=== PATIENT | male | born 1955 | race Caucasian/White ===

== ENCOUNTER → 2017-09-15 15:33 | Outpatient (CLI) | payer MEDICARE, MEDICAID, SELFPAY | PROVIDERS: Family Provider Internal Medicine; PCP Internal Medicine; Visit Provider Internal Medicine | DX: E11.621 Type 2 diabetes mellitus with foot ulcer (principal); L97.512 Non-pressure chronic ulcer of other part of right foot with fat layer exposed; M79.674 Pain in right toe(s); L08.9 Local infection of the skin and subcutaneous tissue, unspecified | CPT/HCPCS: 11042; 87070; 87077; 87186; 87205 ==

== ENCOUNTER → 2017-09-15 16:53 | Outpatient (REF) | payer MEDICARE, MEDICAID, SELFPAY | LOC: LAB 16:53 | PROVIDERS: Family Provider Internal Medicine; PCP Internal Medicine; Visit Provider Internal Medicine | DX: L08.9 Local infection of the skin and subcutaneous tissue, unspecified (principal) | CPT/HCPCS: 87070; 87075; 87077; 87186; 87205 ==

== ENCOUNTER → 2017-09-21 15:00 | Outpatient (REF) | payer MEDICARE, MEDICAID, SELFPAY ==
[2017-09-21 15:32] LABS: Iron 87 ug/dL (49-181)
== END ==
LOC: LAB 15:00
PROVIDERS: Family Provider Internal Medicine; PCP Internal Medicine; Visit Provider Internal Medicine
DX: R53.83 Other fatigue (principal); D63.1 Anemia in chronic kidney disease
CPT/HCPCS: 82728; 83540

== ENCOUNTER → 2017-09-22 13:35 | Outpatient (CLI) | payer MEDICARE, MEDICAID, SELFPAY | PROVIDERS: Family Provider Internal Medicine; PCP Internal Medicine; Visit Provider Internal Medicine | DX: E11.621 Type 2 diabetes mellitus with foot ulcer (principal); L97.512 Non-pressure chronic ulcer of other part of right foot with fat layer exposed | CPT/HCPCS: 11042; 87070; 87075; 87077; 87186; 87205 ==

== ENCOUNTER → 2017-09-23 06:40 | Outpatient (REF) | payer MEDICARE, MEDICAID, SELFPAY ==
[2017-09-23 08:51] LABS: BUN Creatinine Ratio 28.6 (6-22); Calcium 8.6 mg/dL (8.4-10.2); Estimated Glomerular Filt Rate > 60.0 mL/min (>60); Glucose 234 mg/dL (80-110); HEMOLYSIS < 15 (0-50); Potassium 4.1 mmol/L (3.4-5.1); Sodium 139 mmol/L (137-145)
== END ==
LOC: LAB 06:40
PROVIDERS: Family Provider Internal Medicine; PCP Internal Medicine; Visit Provider Internal Medicine Cardiovascular Disease
DX: I25.5 Ischemic cardiomyopathy (principal); I10 Essential (primary) hypertension
CPT/HCPCS: 36415; 80048

== ENCOUNTER → 2017-10-06 16:03 | Outpatient (CLI) | payer MEDICARE, MEDICAID, SELFPAY | PROVIDERS: Family Provider Internal Medicine; PCP Internal Medicine; Visit Provider Internal Medicine | DX: E11.621 Type 2 diabetes mellitus with foot ulcer (principal); L97.512 Non-pressure chronic ulcer of other part of right foot with fat layer exposed; E11.65 Type 2 diabetes mellitus with hyperglycemia; R53.83 Other fatigue | CPT/HCPCS: 11042 ==

== ENCOUNTER → 2017-10-11 14:15 | Outpatient (CLI) | payer MEDICARE, MEDICAID, SELFPAY ==
--- NOTE | 2017-10-11 | DI.MRI.S_ITS ---
PROCEDURE: MR KNEE RT WO CON INDICATIONS: Right knee pain post fall TECHNIQUE: Noncontrast sagittal PD fast spin echo and T2 fast spin echo with fat saturation, sagittal 3-D FLASH with fat saturation; coronal T1 spin echo and PD fast spin echo with fat saturation, and axial PD fast spin echo with fat saturation through the knee. COMPARISON: None. FINDINGS: Image quality: Suboptimal related to metallic susceptibility artifact from distal femoral orthopedic hardware. Bones and joint: Evaluation of the distal femur is suboptimal related to a long intramedullary nail secured in place by 2 distal screws. However, there is moderate marrow edema identified along the posterior aspect of the medial femoral condyle and in the periphery of the medial femoral condyle. There also is mild marrow edema evident involving the posterolateral margin of the lateral tibial plateau and potentially along the periphery of the posterior aspect of the medial tibial plateau. No displaced fractures or dislocations are evident. There is a small joint effusion with associated very small Hoover cyst. No large cartilaginous defects are appreciated involving the cartilage within all 3 compartments of the knee. Cruciate ligaments: The anterior and posterior cruciate ligaments are intact. Menisci: No displaced tears of the medial and lateral menisci are evident. The posterior root ligaments are intact. Medial structures: The medial collateral ligament is intact. There is mild edema about the medial collateral ligament. The semimembranosus tendon insertion is thickened and irregular with diffusely increased signal present. The imaged portions of the pes anserinus tendons are unremarkable. No significant fluid is contained within the pes anserinus bursa. Lateral structures: The popliteal tendon is intact, but may be edematous. The lateral collateral ligament proper (fibular collateral ligament) and the proximal tibiofibular ligaments are intact. Mild increased signal about the proximal tibiofibular ligaments is noted. The distal aspect of the biceps femoris tendon and the iliotibial band are intact. Anterior structures: The quadriceps and patellar tendons are intact. There is no significant edema in the infrapatellar fat pad. IMPRESSION: 1. Bone contusions involving the medial femoral condyle and posterolateral tibial plateau. No displaced fractures are evident. 2. The anterior cruciate ligament and medial meniscus appear intact. 3. Medial collateral ligament sprain. 4. Low-grade proximal tibiofibular ligament sprain. 5. Mild proximal popliteal tendinopathy. 6. Moderate distal semimembranosus tendinopathy and possible low-grade partial-thickness tearing. 7. Small joint effusion. Dictated by: Jose Russo M.D. on 10/11/2017 at 15:27 Approved by: Jose Russo M.D. on 10/11/2017 at 15:35
== END ==
PROVIDERS: Family Provider Internal Medicine; PCP Internal Medicine; Visit Provider Nurse Practitioner Family
DX: M25.561 Pain in right knee (principal); S80.11XA Contusion of right lower leg, initial encounter; S83.411A Sprain of medial collateral ligament of right knee, initial encounter; M25.461 Effusion, right knee
CPT/HCPCS: 73721

== ENCOUNTER → 2017-10-13 14:58 | Outpatient (REF) | payer MEDICARE, MEDICAID, SELFPAY | LOC: LAB 14:58 | PROVIDERS: Family Provider Internal Medicine; PCP Internal Medicine; Visit Provider Internal Medicine | DX: L08.9 Local infection of the skin and subcutaneous tissue, unspecified (principal) | CPT/HCPCS: 87070; 87075; 87077; 87147; 87186; 87205 ==

== ENCOUNTER → 2017-10-13 15:53 | Outpatient (CLI) | payer MEDICARE, MEDICAID, SELFPAY ==
--- NOTE | 2017-10-13 | OV.WND_ITS ---
Progress Note Details Patient Name: Ray Foster Patient Number: [id number] PatientPatientDate: 10/13/2017 Clinician: Fiona Brooks Clinician Cosigner: Eusebia Reed Physician / Distributing Clerk: Niall Bragg SUBJECTIVE Chief Complaint This information was obtained from the patient Diabetic ulcer to right 5th toe. Allergies [facility] This information was obtained from the patient 10/13/17. Seen by Dr. Bragg. The patient does not report pain nor significant drainage associated with chronic right fifth toe diabetic ulcer since his last visit. Also, his blood sugar today is 325 and has been intermittently very elevated the past few weeks. Of note, his ulcer and diabetes is complicated by his being wheelchair bound due to a significant stroke and near 100% reliance upon caregivers at his assisted living facility. 10/06/17. Seen by Dr. Bragg. The patient continues to report feeling very fatigued but does not report specific symptoms otherwise nor acute issues regarding his right 5th toe diabetic ulcer. Of note, his blood sugar is over 400 today and he feels there was a lot of ' sugar' in his meal last night. 09/22/17. Seen by Dr. Bragg. The patient does not report pain nor significant drainage associated with chronic right fifth toe diabetic ulcer since his last visit. 09/15/17. Seen by Dr. Bragg. The patient reports feeling generally unwell and very fatigued over the past 3-4 days but does not report any other specific acute symptoms at this time. He does say that he has noticed some stinging pain associated with the chronic right 5th toe diabetic ulcer as well. 09/08/17. Seen by Dr. Bragg. The patient does not report pain nor significant drainage associated with chronic right fifth toe diabetic ulcer since his last visit. 09/01/17. Seen by Dr. Bragg. The patient does not report pain nor significant drainage associated with chronic right fifth toe diabetic ulcer since his last visit. 08/25/17. Seen by Dr. Bragg. The patient does not report pain nor significant drainage associated with chronic right fifth toe diabetic ulcer since his last visit. 08/19/17. Seen by Dr. Bragg. The patient reports some mild discomfort associated with chronic right fifth toe diabetic ulcer that is not report significant drainage however. He had his angioplasty over 2 weeks ago to address the severe related PAD and does not report any complications following the procedure. 08/12/17. Seen by Dr. Bragg. The patient underwent angioplasty for his right leg PAD Wednesday he states that his rest pain has not resolved. He is not on Plavix and reports some pain associated with the right fifth toe diabetic ulcer but no smoking drainage or other acute changes. 08/03/17. Seen by Dr. Bragg. The patient was seen by his vascular surgeon at [facility] and he is scheduled for intervention for his severe right leg PAD this . He reports some persistent pain associated with her right fifth toe diabetic ulcer as well and his wound culture grew MSSA for which he is applying topical gentamicin. He does not report increased drainage from the site and of note his condition is complicated considerably by history of paraplegia and a CVA with resultant right-sided hemiparesis. 07/27/17. Seen by Dr. Bragg. The patient reports some intermittent pain associated with chronic right fifth toe diabetic ulcer since last visit. He has not yet arranged an appointment with vascular surgery at [facility] to review the right leg PAD although he was referred last week. 07/20/17. Seen by Dr. Bragg. The patient does not report significant drainage associated with the chronic right fifth toe diabetic ulcer since his last visit. Of note, a referral was sent in mid June to review the right leg PAD however according to the patient this has not been followed through on. Of note, the patient's condition is complicated significantly by a history of paraplegia as well as CVA and he resides in assisted living. 07/13/17. Seen by Vinayak Maguire PA-C. The patient reports stable drainage from his right 5th toe ulcer. 07/08/17. Seen by Vinayak Maguire PA-C. The patient reports no increase in drainage from his right 5th toe ulcer. 06/28/17. Seen by Vinayak Maguire PA-C. The patient reports that his dressings are being changed at the SNF as instructed now. He reports decreased drainage from all of his ulcers. 06/22/17. Seen by Vinayak Maguire PA-C. The patient reports that his dressing on his right 5th toe was not changed by the SNF since his last visit and appears much worse. He also reports that he is not using diabetic shoes. He notes several blood sugars recorded above 150 this week. . Seen by Dr. Bragg. The patient reports intermittent pain associated with the chronic right fifth fourth and second toe diabetic ulcers since his last visit. He was to start taking doxycycline however this was not available at his assisted living facility. Of note, his arterial Doppler from 08/2016 revealed a high grade stenosis of the mid-right SFA and occlusion of the distal right SFA. Also, the patient resides in assisted living do to his right hemiplegia the resulted from a stroke many years ago. 06/04/17. Seen by Vinayak Maguire PA-C. The patient reports a new ulcer has formed on his right 2nd toe. It has been present for at least 2 days by his report. 05/26/17. Seen by Vinayak Maguire PA-C. The patient reports no increase in drainage from his diabetic ulcers of the 4th and 5th toes and reports minimal drainage from his heel ulcer. 05/19/17. Seen by Dr. Bragg. The patient does not report significant pain nor increased drainage associated with the right fourth and fifth toe diabetic ulcers nor the right heel diabetic ulcer since last visit. 05/12/17. Seen by Dr. Bragg. The patient does not report significant drainage associated with the right heel, fifth toe, or fourth toe diabetic ulcers since his last visit. His wound culture from the heel grew two coag-negative staph species and he has been applying topical gentamicin as recommended. 05/05/17. Seen by Dr. Bragg. The patient is new to our clinic and presents with a right heel plus right fourth and fifth toe diabetic ulcers. His ulcers are complicated by a history of stroke and right hemiplegia, poorly controlled diabetes, and history of smoking. He reports some mild pain associated with the ulcers but no significant drainage and is not currently on antibiotics. He does continue to smoke however. He also has an arterial ultrasound from last August showing high grade stenosis of the right SFA with reconstitution at the level of the popliteal artery. Of notes, his last A1c in April was 9.4. Past Medical History This information was obtained from the patient Patient has a medical history of: Type 1 Diabetes Ischemic Cardiomyopathy Hypertension Coronary Artery Disease (CAD) Peripheral Vascular Disease Renal Failure (Stage 3, stable.) Stroke (x3 in 1998) Gastro Esoph. Reflux Disease (GERD) Complaints and Symptoms This information was obtained from the patient Patient complains of: General Notes: I have reviewed and concur with the Review of Systems and Past Family Social History documents completed by the clinician, I have reviewed and concur with the Wound Assessment document completed by the clinician Cardiovascular (Central/Peripheral): Lower extremity (leg) swelling Constitutional Symptoms (General Health): Fatigue Integumentary (Hair/Skin/Nails): Open Sore Musculoskeletal: Assistive Devices, Muscle Weakness Prior Wound History: Drainage, Erythema, Pain Patient denies complaints or symptoms related to: Cardiovascular (Central): Irregular heart beat Cardiovascular (Central/Peripheral): Lower extremity (leg) resting pain Constitutional Symptoms (General Health): Chills, Fever Ear/Nose/Mouth/Throat: Hearing Loss / Aid Gastrointestinal (GI): Stomach/abdominal pain Hematologic/Lymphatic: Bleeding / Clotting Disorders, Bleeding Tendency Neurological: Loss of Protective Sensation Prior Wound History: Bleeding Psychiatric: Memory Loss Respiratory: Shortness of Breath OBJECTIVE Constitutional Vital signs reviewed and noted. Well developed. Alert. Clean appearing.. Height/ Length: 66 in (167.64 cm), Weight: 140.9 lbs (64.05 kgs), BMI: 22.7, Temperature: 98.2 ?F ( 36.78 ?C), Pulse: 85 bpm, Respiratory Rate: 16 breaths/min, Blood Pressure: 107/70 mmHg, Capillary Blood Glucose: 325 mg/dl, Pulse Oximetry: 99 %. Vital Signs Notes: Glucose per patient. Ears, Nose, Mouth, and Throat: No clinically significant hearing loss on informal examination. Respiratory: No respiratory distress. Even respirations and without use of accessory muscles.. Cardiovascular: 1+ right lower extremity edema. Musculoskeletal: Right lower leg flacid paralysis. Integumentary (Hair, Skin) Mild periwound erythema with warmth. Refer to appropriate clinician wound documentation for this visit; right 5th toe ulcer extends to subcut with base partially covered with pink granulation, remainder fibrin and slough. Wound #3 Right Fifth Toe is a chronic Coates Grade 3 Diabetic Ulcer and has received a status of Not Healed. Subsequent wound encounter measurements are 0.1cm length x 0.1cm width x 0.1cm depth, with an area of 0.01 sq cm and a volume of 0.001 cubic cm. No tunneling has been noted. No sinus tract has been noted. No undermining has been noted. There is a small amount of serous drainage noted which has no odor. The patient reports a wound pain of level 6/10. The wound margin is unable to assess. Wound bed has Yes epithelialization, No eschar, Yes slough, No granulation. The periwound skin moisture is normal. The periwound skin exhibited: Edema, Erythema. The periwound skin did not exhibit: Brawny Induration, Excoriation, Induration, Callus, Crepitus, Fluctuance, Friable, Rash, Atrophie Pamela, Cyanosis, Ecchymosis, Hemosiderosis , Pallor, Rubor. The temperature of the periwound skin is Warm. Periwound skin presents with s/s of infection. Confirmation Description and Treatment Plan is: Signs and Symptoms Present. Local Pulse is Doppler. Neurological: Cranial nerves grossly intact with symmetric function normal by informal observation.. ASSESSMENT Active Problems ICD-10 (Encounter Diagnosis) E11.621 - Type 2 diabetes mellitus with foot ulcer (Encounter Diagnosis) L97.512 - Non-pressure chronic ulcer of other part of right foot with fat layer exposed (Encounter Diagnosis) E11.65 - Type 2 diabetes mellitus with hyperglycemia (Encounter Diagnosis) L08.9 - Local infection of the skin and subcutaneous tissue, unspecified (Encounter Diagnosis) I69.80 - Unspecified sequelae of other cerebrovascular disease PROCEDURES Wound #3 Wound #3 (Diabetic Ulcer) is located on the right fifth toe. A skin/ subcutaneous tissue level surgical debridement with a total area debrided of 0.04 sq cm was performed by Fiona Brooks LPN/ABDON. Subcutaneous was removed along with devitalized tissue: slough and maceration. The following instrument(s) were used: curette. Pain control was achieved using EMLA lidocaine/prilocaine 2.5%/2.5%. A time out was conducted prior to the start of the procedure. A minimal amount of bleeding was controlled with n/a. The procedure was tolerated well with a pain level of 0 throughout and a pain level of 0 following the procedure. Post Debridement Measurements: 0.2cm length x 0.2cm width x 0.2cm depth; with an area of 0.04 sq cm and a volume of 0.008 cubic cm; Additional Information Muscle fascia or bone removed and sent to pathology?: No PLAN Wound Orders: Wound #3 Right Fifth Toe Anesthetic Topical Xylocaine to wound bed. - Lidocaine used in clinic. Cleanser Cleanse Wound: - Normal saline and gauze. Please wash wound with saline and gauze during each dressing change to wipe off any dried exudate adhered to wound bed. May scrub lightly with gauze. May Shower. - Please protect wounds from shower water, please use plastic bag and tape or cast protector. Topical Treatments Antibiotic/Antimicrobial Ointment/Cream. - Iodosorb (sent with patient). Dressings Cover and secure with: - Telfa (non-adherent) pad and hypafix tape. Change Dressing: - Daily. Additional Orders: Follow-Up Appointments Return Appointment: - - One week. Other information: If you develop fever, chills, increased pain, drainage, redness or swelling please call our office. If after hours, respond to the ER. Should you experience any significant changes in your wound(s) or have any questions regarding your home care instructions please contact the wound center @ [phone]. If after hours, contact your primary care physician or go to the hospital emergency room. Scribing Attestation I attest, as the nurse, that I scribed these orders for the physician. Laboratory: Bacteria identified in Wound by Culture - #3- Right 5th toe. General Notes: Will call with culture results if any oral antibiotics are required. I've reviewed the clinician's documentation and agree with the evaluation and plan as written. In addition, the patient's ulcer demonstrates evidence of non-viable devitalized tissue which will continue to benefit from sharp debridement to help promote granulation and expedite healing. Also, the right 5th toe ulcer appears infected today so a culture was taken and the patient was started on topical gentamicin. I'll also copy his PCP on my note due to the frequent significantly elevated blood sugars which are likely contributing to recurrent infection and the refractory nature of the diabetic foot ulcer. Electronic Signature(s) Signed By: Date: Niall Bragg MD 10/13/2017 15:30:00 Entered By: Niall Bragg on 10/13/2017 15:12:14
== END ==
PROVIDERS: Family Provider Internal Medicine; PCP Internal Medicine; Visit Provider Internal Medicine
DX: E10.621 Type 1 diabetes mellitus with foot ulcer (principal); L97.512 Non-pressure chronic ulcer of other part of right foot with fat layer exposed; E11.65 Type 2 diabetes mellitus with hyperglycemia; L08.9 Local infection of the skin and subcutaneous tissue, unspecified; I69.80 Unspecified sequelae of other cerebrovascular disease
CPT/HCPCS: 11042

== ENCOUNTER → 2017-10-14 06:58 | Outpatient (REF) | payer MEDICARE, MEDICAID, SELFPAY ==
[2017-10-14 07:28] LABS: Add Manual Diff / Slide Review NO; Basophils Percent Auto 0.7 % (0-2); Eosinophils Percent Auto 3.5 % (2-4); Hematocrit 33.8 % (41-53); Hemoglobin 11.7 g/dL (13.5-17.5); Lymphocytes Percent Auto 39.3 % (25-40); Mean Corpuscular HGB Conc 34.6 % (30-36); Mean Corpuscular Volume 83.9 fL (80-100); Monocytes Percent Auto 10.3 % (3-14); Neutrophils Absolute Auto 3100 /uL (3000-5900); Neutrophils Percent Auto 46.2 % (50-75); Platelet Count 285 X10^3/uL (150-400); Red Blood Cell Count 4.03 X10^6/uL (4.5-5.9); Red Cell Distribution Width 14.2 % (11.6-14.8); White Blood Cell Count 6.8 X10^3/uL (4.5-11.0)
[2017-10-14 07:37] LABS: Alanine Aminotransferase 40 IU/L (21-72); Albumin 3.4 g/dL (3.5-5.0); Albumin Globulin Ratio 1.3 (1.0-2.8); Alkaline Phosphatase 106 U/L (38-126); Aspartate Aminotransferase 18 IU/L (17-59); BUN Creatinine Ratio 31.7 (6-22); Bilirubin Total 0.4 mg/dL (0.2-1.3); Blood Urea Nitrogen 19 mg/dL (9-20); Calcium 8.7 mg/dL (8.4-10.2); Carbon Dioxide 33 mmol/L (22-32); Chloride 101 mmol/L (98-107); Estimated Glomerular Filt Rate > 60.0 mL/min (>60); Globulin 2.6 g/dL (1.7-4.1); Glucose 91 mg/dL (80-110); HEMOLYSIS < 15 (0-50); Sodium 141 mmol/L (137-145)
[2017-10-14 07:44] LABS: Hemoglobin A1C% w Est Avg Glu 9.1 % (4.0-6.0)
[2017-10-14 07:47] LABS: B Type Natriuretic Peptide 44.3 (<100)
[2017-10-14 08:07] LABS: Thyroid Stimulating Hormone 2.58 uIU/mL (0.47-4.68)
== END ==
LOC: LAB 06:58
PROVIDERS: Family Provider Internal Medicine; PCP Internal Medicine; Visit Provider Nurse Practitioner Family
DX: E11.9 Type 2 diabetes mellitus without complications (principal); I63.9 Cerebral infarction, unspecified
CPT/HCPCS: 36415; 80053; 83036; 83880; 84443; 85025

== ENCOUNTER → 2017-10-19 12:37 | Outpatient (CLI) | payer MEDICARE, MEDICAID, SELFPAY ==
--- NOTE | 2017-10-19 | DI.ECHO.S_ITS ---
[place] [facility]---------+ [facility] +---------+ : : [address] : [address] [address] : : : : [id number] : : : : Phone: [phone]+ Echocardiogram Report + + :Name: NEYDA MARCELO Study Date: 10/19/2017 Height: 66 in : :[facility] Exam Location: IS Weight: 139 lb : : Gender: Male BSA: 1.7 m2 : :: 1955 Age: 62 yrs BP: 110/58 mmHg: :Reason For Study: ISCHEMIC CM : : Performed By: Joe Mendez : :Referring: POOL PALMER : + + Interpretation Summary The left ventricle is normal in size. The ejection fraction is estimated to be 50-55%. Compared to the prior exam, the left ventricular function is improved. The right ventricle is normal in size and function. No significant valvular pathology seen. Procedure: A two-dimensional transthoracic echocardiogram with color flow and Doppler was performed. The study quality was technically good. Comparison is made with the echocardiogram of 08/13/16. The patient was in normal sinus rhythm during the exam. Left Ventricle: The left ventricle is normal in size. There is normal left ventricular wall thickness. Trabeculae near apex are visualized. No thrombus is observed. The ejection fraction is estimated to be 50-55%. Compared to the prior exam, the left ventricular function is improved. There is basal inferior wall hypokinesis. There is mid inferior wall hypokinesis. Compared to the prior exam, the inferior wall motion abnormality is improved. Assessment of diastolic parameters indicates a relaxation abnormality of the left ventricle, consistent with normal filling pressures. Right Ventricle: The right ventricle is normal in size and function. Atria: Both atria are normal in size. Both atria have remained unchanged in size since the prior echo exam. The interatrial septum is intact with no evidence for an atrial septal defect. Mitral Valve: The mitral valve leaflets are slightly calcified. There is trace mitral regurgitation. Aortic Valve: The aortic valve is trileaflet. The aortic valve opens well. The aortic valve is slightly calcified. There is no aortic valve stenosis. No aortic regurgitation is present. Tricuspid Valve: The tricuspid valve is normal in structure and function. No tricuspid regurgitation. Pulmonary artery pressures cannot be estimated because of the lack of a measurable TR jet velocity. Pulmonic Valve: The pulmonic valve is normal in structure and function. There is trace pulmonic regurgitation. Great Vessels: The aortic root is normal size. The dimensions of the ascending aorta are normal. The pulmonary artery is normal size. The IVC is of normal diameter and collapses greater than 50% with a sniff. This suggests a low right atrial pressure of 3 mm Hg. Pericardium/ Pleura There is no pericardial effusion. There is no pleural effusion. MMode/2D Measurements & Calculations LVIDd: 4.6 cm Ao root diam: 2.9 cm LVIDs: 3.4 cm Aortic Jxn: 2.3 cm FS: 24.3 % asc Aorta Diam: 3.2 cm EPSS: 1.2 cm IVSd: 0.98 cm LVPWd: 0.80 cm LV palma. diameter/BSA (cm/m^2): 2.7 LV sys. diameter/BSA (cm/m^2): 2.0 LA dimension: 3.5 cm RA long axis: 3.0 cm LA A2 area: 16.7 cm2 RA area: 9.2 cm2 LA A4 area: 13.1 cm2 RA vol: 23.6 ml LA length (vol): 4.2 cm RA : 13.8 ml/m2 LA vol: 44.1 ml IVC diam: 1.0 cm LA vol index: 25.8 ml/m2 Doppler Measurements & Calculations Ao V2 max: 115.1 cm/sec MV E max reinaldo: 55.7 cm/sec Ao V2 mean: 81.5 cm/sec MV A max reinaldo: 72.6 cm/sec Ao max P.3 mmHg MV E/A: 0.77 Ao mean P.9 mmHg Med Peak E' Reinaldo: 3.2 cm/sec Ao V2 VTI: 20.3 cm E/E' med: 17.4 Lat Peak E' Reinaldo: 5.5 cm/sec E/E' lat: 10.2 E/e' average: 13.8 MV dec time: 0.27 sec PA V2 max: 73.7 cm/sec Pulm A Revs Reinaldo: 24.6 cm/sec PA V2 mean: 56.1 cm/sec PA mean P.4 mmHg PA pr(Accel): 36.6 mmHg PA Accel Time: 0.09 sec Reading Physician:SANDRA
== END ==
PROVIDERS: Family Provider Internal Medicine; PCP Internal Medicine; Visit Provider Internal Medicine Cardiovascular Disease
DX: I25.5 Ischemic cardiomyopathy (principal)
CPT/HCPCS: 93306

== ENCOUNTER → 2017-10-20 13:28 | Outpatient (CLI) | payer MEDICARE, MEDICAID, SELFPAY ==
--- NOTE | 2017-10-20 | OV.WND_ITS ---
Progress Note Details Patient Name: Ray Foster Patient Number: [id number] PatientPatientDate: 10/20/2017 Clinician: Eusebia Reed Clinician Cosigner: Gayle Delcid Physician / Lining Vamper: Daljit Maguire SUBJECTIVE Chief Complaint This information was obtained from the patient Diabetic ulcer to right 5th toe. Allergies NKDA [facility] This information was obtained from the patient 10/20/17. Seen by Vinayak Maguire PA-C. The patient reports stable drainage from his right 5th toe diabetic ulcer. 10/13/17. Seen by Dr. Bragg. The patient does not report pain nor significant drainage associated with chronic right fifth toe diabetic ulcer since his last visit. Also, his blood sugar today is 325 and has been intermittently very elevated the past few weeks. Of note, his ulcer and diabetes is complicated by his being wheelchair bound due to a significant stroke and near 100% reliance upon caregivers at his assisted living facility. 10/06/17. Seen by Dr. Bragg. The patient continues to report feeling very fatigued but does not report specific symptoms otherwise nor acute issues regarding his right 5th toe diabetic ulcer. Of note, his blood sugar is over 400 today and he feels there was a lot of ' sugar' in his meal last night. 09/22/17. Seen by Dr. Bragg. The patient does not report pain nor significant drainage associated with chronic right fifth toe diabetic ulcer since his last visit. 09/15/17. Seen by Dr. Bragg. The patient reports feeling generally unwell and very fatigued over the past 3-4 days but does not report any other specific acute symptoms at this time. He does say that he has noticed some stinging pain associated with the chronic right 5th toe diabetic ulcer as well. 09/08/17. Seen by Dr. Bragg. The patient does not report pain nor significant drainage associated with chronic right fifth toe diabetic ulcer since his last visit. 09/01/17. Seen by Dr. Bragg. The patient does not report pain nor significant drainage associated with chronic right fifth toe diabetic ulcer since his last visit. 08/25/17. Seen by Dr. Bragg. The patient does not report pain nor significant drainage associated with chronic right fifth toe diabetic ulcer since his last visit. 08/19/17. Seen by Dr. Bragg. The patient reports some mild discomfort associated with chronic right fifth toe diabetic ulcer that is not report significant drainage however. He had his angioplasty over 2 weeks ago to address the severe related PAD and does not report any complications following the procedure. 08/12/17. Seen by Dr. Bragg. The patient underwent angioplasty for his right leg PAD Wednesday he states that his rest pain has not resolved. He is not on Plavix and reports some pain associated with the right fifth toe diabetic ulcer but no smoking drainage or other acute changes. 08/03/17. Seen by Dr. Bragg. The patient was seen by his vascular surgeon at [facility] and he is scheduled for intervention for his severe right leg PAD this . He reports some persistent pain associated with her right fifth toe diabetic ulcer as well and his wound culture grew MSSA for which he is applying topical gentamicin. He does not report increased drainage from the site and of note his condition is complicated considerably by history of paraplegia and a CVA with resultant right-sided hemiparesis. 07/27/17. Seen by Dr. Bragg. The patient reports some intermittent pain associated with chronic right fifth toe diabetic ulcer since last visit. He has not yet arranged an appointment with vascular surgery at [facility] to review the right leg PAD although he was referred last week. 07/20/17. Seen by Dr. Bragg. The patient does not report significant drainage associated with the chronic right fifth toe diabetic ulcer since his last visit. Of note, a referral was sent in mid June to review the right leg PAD however according to the patient this has not been followed through on. Of note, the patient's condition is complicated significantly by a history of paraplegia as well as CVA and he resides in assisted living. 07/13/17. Seen by Vinayak Maguire PA-C. The patient reports stable drainage from his right 5th toe ulcer. 07/08/17. Seen by Vinayak Maguire PA-C. The patient reports no increase in drainage from his right 5th toe ulcer. 06/28/17. Seen by Vinayak Maguire PA-C. The patient reports that his dressings are being changed at the SNF as instructed now. He reports decreased drainage from all of his ulcers. 06/22/17. Seen by Vinayak Maguire PA-C. The patient reports that his dressing on his right 5th toe was not changed by the SNF since his last visit and appears much worse. He also reports that he is not using diabetic shoes. He notes several blood sugars recorded above 150 this week. . Seen by Dr. Bragg. The patient reports intermittent pain associated with the chronic right fifth fourth and second toe diabetic ulcers since his last visit. He was to start taking doxycycline however this was not available at his assisted living facility. Of note, his arterial Doppler from 08/2016 revealed a high grade stenosis of the mid-right SFA and occlusion of the distal right SFA. Also, the patient resides in assisted living do to his right hemiplegia the resulted from a stroke many years ago. 06/04/17. Seen by Vinayak Maguire PA-C. The patient reports a new ulcer has formed on his right 2nd toe. It has been present for at least 2 days by his report. 05/26/17. Seen by Vinayak Maguire PA-C. The patient reports no increase in drainage from his diabetic ulcers of the 4th and 5th toes and reports minimal drainage from his heel ulcer. 05/19/17. Seen by Dr. Bragg. The patient does not report significant pain nor increased drainage associated with the right fourth and fifth toe diabetic ulcers nor the right heel diabetic ulcer since last visit. 05/12/17. Seen by Dr. Bragg. The patient does not report significant drainage associated with the right heel, fifth toe, or fourth toe diabetic ulcers since his last visit. His wound culture from the heel grew two coag-negative staph species and he has been applying topical gentamicin as recommended. 05/05/17. Seen by Dr. Bragg. The patient is new to our clinic and presents with a right heel plus right fourth and fifth toe diabetic ulcers. His ulcers are complicated by a history of stroke and right hemiplegia, poorly controlled diabetes, and history of smoking. He reports some mild pain associated with the ulcers but no significant drainage and is not currently on antibiotics. He does continue to smoke however. He also has an arterial ultrasound from last August showing high grade stenosis of the right SFA with reconstitution at the level of the popliteal artery. Of notes, his last A1c in April was 9.4. Family History This information was obtained from the patient Cancer - Mother, Lung Disease - Father Social History This information was obtained from the patient Current every day smoker - Age 15 to present, Alcohol Use - None, Caffeine Use - 3 per day, Children - 2 boys, live in [place], Lives in - Assisted Living- [place], Marital Status - , Occupation - Disabled- retired from [employer] Past Medical History This information was obtained from the patient Patient has a medical history of: Type 1 Diabetes Ischemic Cardiomyopathy Hypertension Coronary Artery Disease (CAD) Peripheral Vascular Disease Renal Failure (Stage 3, stable.) Stroke (x3 in 1998) Gastro Esoph. Reflux Disease (GERD) Complaints and Symptoms This information was obtained from the patient Patient complains of: General Notes: I have reviewed and concur with the Review of Systems and Past Family Social History documents completed by the clinician, I have reviewed and concur with the Wound Assessment document completed by the clinician Cardiovascular (Central/Peripheral): Lower extremity (leg) swelling Constitutional Symptoms (General Health): Fatigue Integumentary (Hair/Skin/Nails): Open Sore Musculoskeletal: Assistive Devices, Muscle Weakness Prior Wound History: Drainage, Erythema, Pain Patient denies complaints or symptoms related to: Cardiovascular (Central): Irregular heart beat Cardiovascular (Central/Peripheral): Lower extremity (leg) resting pain Constitutional Symptoms (General Health): Chills, Fever Ear/Nose/Mouth/Throat: Hearing Loss / Aid Gastrointestinal (GI): Stomach/abdominal pain Hematologic/Lymphatic: Bleeding / Clotting Disorders, Bleeding Tendency Neurological: Loss of Protective Sensation Prior Wound History: Bleeding Psychiatric: Memory Loss Respiratory: Shortness of Breath OBJECTIVE Constitutional Vital signs reviewed and noted. Well developed, lucid, and in no acute distress. . Height/Length: 66 in (167.64 cm), Weight: 140.9 lbs (64.05 kgs), BMI: 22.7, Temperature: 98.7 ?F (37.06 ?C), Pulse: 84 bpm, Respiratory Rate: 16 breaths/min, Blood Pressure: 94/55 mmHg, Capillary Blood Glucose: 119 mg/dl, Pulse Oximetry: 100 %. Vital Signs Notes: Glucose per patient. Eyes: Conjunctiva clear and without icterus. Pupils are equal and round; EOM's intact. Ears, Nose, Mouth, and Throat: Grossly intact. Respiratory: No respiratory distress. Even respirations and without use of accessory muscles.. Integumentary (Hair, Skin) Refer to appropriate clinician wound documentation for this visit; ulcer extends to subcutaneous fat layer. . Wound #3 Right Fifth Toe is a chronic Coates Grade 3 Diabetic Ulcer and has received a status of Not Healed. Subsequent wound encounter measurements are 0.1cm length x 0.1cm width x 0.1cm depth, with an area of 0.01 sq cm and a volume of 0.001 cubic cm. No tunneling has been noted. No sinus tract has been noted. No undermining has been noted. There is a small amount of serous drainage noted which has no odor. The patient reports a wound pain of level 6/10. The wound margin is unable to assess. Wound bed has Yes epithelialization, No eschar, Yes slough, No granulation. The periwound skin moisture is normal. The periwound skin exhibited: Edema, Erythema. The periwound skin did not exhibit: Brawny Induration, Excoriation, Induration, Callus, Crepitus, Fluctuance, Friable, Rash, Atrophie Pmaela, Cyanosis, Ecchymosis, Hemosiderosis , Pallor, Rubor. The temperature of the periwound skin is Warm. Periwound skin does not exhibit signs or symptoms of infection. Local Pulse is Doppler. Psychiatric: Judgement and insight: Normal affect with normal thought pattern. Alert and oriented 3/3. Memory grossly intact.. Normal affect. Mood appropriate.. ASSESSMENT Active Problems ICD-10 (Encounter Diagnosis) E11.621 - Type 2 diabetes mellitus with foot ulcer (Encounter Diagnosis) L97.512 - Non-pressure chronic ulcer of other part of right foot with fat layer exposed (Encounter Diagnosis) I69.80 - Unspecified sequelae of other cerebrovascular disease PROCEDURES Wound #3 Wound #3 (Diabetic Ulcer) is located on the right fifth toe. A skin/ subcutaneous tissue level surgical debridement with a total area debrided of 0.04 sq cm was performed by Daljit Maguire PA. Subcutaneous was removed along with devitalized tissue: slough. The following instrument(s) were used: curette. Pain control was achieved using 4% Lido. A time out was conducted prior to the start of the procedure. A minimal amount of bleeding was controlled with pressure. The procedure was tolerated well with a pain level of 0 throughout and a pain level of 1 following the procedure. Post Debridement Measurements: 0.2cm length x 0.2cm width x 0.2cm depth; with an area of 0.04 sq cm and a volume of 0.008 cubic cm; PLAN Wound Orders: Wound #3 Right Fifth Toe Anesthetic Topical Xylocaine to wound bed. - Lidocaine used in clinic. Cleanser Cleanse Wound: - Normal saline and gauze. Please wash wound with saline and gauze during each dressing change to wipe off any dried exudate adhered to wound bed. May scrub lightly with gauze. May Shower. - Please protect wounds from shower water, please use plastic bag and tape or cast protector. Topical Treatments Antibiotic/Antimicrobial Ointment/Cream. - Iodosorb (sent with patient). Dressings Cover and secure with: - Telfa (non-adherent) pad and hypafix tape. Change Dressing: - Daily. Additional Orders: Follow-Up Appointments Return Appointment: - - One week. Other information: If you develop fever, chills, increased pain, drainage, redness or swelling please call our office. If after hours, respond to the ER. Should you experience any significant changes in your wound(s) or have any questions regarding your home care instructions please contact the wound center @ [phone]. If after hours, contact your primary care physician or go to the hospital emergency room. Scribing Attestation I attest, as the nurse, that I scribed these orders for the physician. I've reviewed the clinician's documentation and agree with the evaluation and plan as written. In addition the patient's ulcer demonstrates evidence of non-viable devitalized tissue which benefits from sharp debridement. Electronic Signature(s) Signed By: Date: Vinayak Maguire 10/24/2017 16:56:38 Entered By: Vinayak Maguire on 10/24/2017 16:45:40
== END ==
PROVIDERS: Family Provider Internal Medicine; PCP Internal Medicine; Visit Provider Internal Medicine
DX: E11.621 Type 2 diabetes mellitus with foot ulcer (principal); L97.512 Non-pressure chronic ulcer of other part of right foot with fat layer exposed; I69.80 Unspecified sequelae of other cerebrovascular disease
CPT/HCPCS: 11042

== ENCOUNTER → 2017-10-27 13:02 | Outpatient (CLI) | payer MEDICARE, MEDICAID, SELFPAY ==
--- NOTE | 2017-10-27 | OV.WND_ITS ---
Progress Note Details Patient Name: Ray Foster Patient Number: [id number] PatientPatientDate: 10/27/2017 Clinician: Shari De Clinician Cosigner: Eusebia Reed Physician / Clamshell Engineer: Niall Bragg SUBJECTIVE Chief Complaint This information was obtained from the patient Diabetic ulcer to right 5th toe. Allergies [facility] This information was obtained from the patient 10/27/17. Seen by Dr. Bragg. The nurse reports increased redness and swelling of the right 5th toe and the patient feels the associated diabetic ulcer has increased in size over the past week. His blood sugars are again elevated today at 342 and of note he states he's still smoking about 10 cigarettes per day despite having PAD that's required intervention recently. 10/20/17. Seen by Vinayak Maguire PA-C. The patient reports stable drainage from his right 5th toe diabetic ulcer. 10/13/17. Seen by Dr. Bragg. The patient does not report pain nor significant drainage associated with chronic right fifth toe diabetic ulcer since his last visit. Also, his blood sugar today is 325 and has been intermittently very elevated the past few weeks. Of note, his ulcer and diabetes is complicated by his being wheelchair bound due to a significant stroke and near 100% reliance upon caregivers at his assisted living facility. 10/06/17. Seen by Dr. Bragg. The patient continues to report feeling very fatigued but does not report specific symptoms otherwise nor acute issues regarding his right 5th toe diabetic ulcer. Of note, his blood sugar is over 400 today and he feels there was a lot of ' sugar' in his meal last night. 09/22/17. Seen by Dr. Bragg. The patient does not report pain nor significant drainage associated with chronic right fifth toe diabetic ulcer since his last visit. 09/15/17. Seen by Dr. Bragg. The patient reports feeling generally unwell and very fatigued over the past 3-4 days but does not report any other specific acute symptoms at this time. He does say that he has noticed some stinging pain associated with the chronic right 5th toe diabetic ulcer as well. 09/08/17. Seen by Dr. Bragg. The patient does not report pain nor significant drainage associated with chronic right fifth toe diabetic ulcer since his last visit. 09/01/17. Seen by Dr. Bragg. The patient does not report pain nor significant drainage associated with chronic right fifth toe diabetic ulcer since his last visit. 08/25/17. Seen by Dr. Bragg. The patient does not report pain nor significant drainage associated with chronic right fifth toe diabetic ulcer since his last visit. 08/19/17. Seen by Dr. Bragg. The patient reports some mild discomfort associated with chronic right fifth toe diabetic ulcer that is not report significant drainage however. He had his angioplasty over 2 weeks ago to address the severe related PAD and does not report any complications following the procedure. 08/12/17. Seen by Dr. Bragg. The patient underwent angioplasty for his right leg PAD Wednesday he states that his rest pain has not resolved. He is not on Plavix and reports some pain associated with the right fifth toe diabetic ulcer but no smoking drainage or other acute changes. 08/03/17. Seen by Dr. Bragg. The patient was seen by his vascular surgeon at [facility] and he is scheduled for intervention for his severe right leg PAD this . He reports some persistent pain associated with her right fifth toe diabetic ulcer as well and his wound culture grew MSSA for which he is applying topical gentamicin. He does not report increased drainage from the site and of note his condition is complicated considerably by history of paraplegia and a CVA with resultant right-sided hemiparesis. 07/27/17. Seen by Dr. Bragg. The patient reports some intermittent pain associated with chronic right fifth toe diabetic ulcer since last visit. He has not yet arranged an appointment with vascular surgery at [facility] to review the right leg PAD although he was referred last week. 07/20/17. Seen by Dr. Bragg. The patient does not report significant drainage associated with the chronic right fifth toe diabetic ulcer since his last visit. Of note, a referral was sent in mid June to review the right leg PAD however according to the patient this has not been followed through on. Of note, the patient's condition is complicated significantly by a history of paraplegia as well as CVA and he resides in assisted living. 07/13/17. Seen by Vinayak Maguire PA-C. The patient reports stable drainage from his right 5th toe ulcer. 07/08/17. Seen by Vinayak Maguire PA-C. The patient reports no increase in drainage from his right 5th toe ulcer. 06/28/17. Seen by Vinayak Maguire PA-C. The patient reports that his dressings are being changed at the SNF as instructed now. He reports decreased drainage from all of his ulcers. 06/22/17. Seen by Vinayak Maguire PA-C. The patient reports that his dressing on his right 5th toe was not changed by the SNF since his last visit and appears much worse. He also reports that he is not using diabetic shoes. He notes several blood sugars recorded above 150 this week. . Seen by Dr. Bragg. The patient reports intermittent pain associated with the chronic right fifth fourth and second toe diabetic ulcers since his last visit. He was to start taking doxycycline however this was not available at his assisted living facility. Of note, his arterial Doppler from 08/2016 revealed a high grade stenosis of the mid-right SFA and occlusion of the distal right SFA. Also, the patient resides in assisted living do to his right hemiplegia the resulted from a stroke many years ago. 06/04/17. Seen by Vinayak Maguire PA-C. The patient reports a new ulcer has formed on his right 2nd toe. It has been present for at least 2 days by his report. 05/26/17. Seen by Vinayak Maguire PA-C. The patient reports no increase in drainage from his diabetic ulcers of the 4th and 5th toes and reports minimal drainage from his heel ulcer. 05/19/17. Seen by Dr. Bragg. The patient does not report significant pain nor increased drainage associated with the right fourth and fifth toe diabetic ulcers nor the right heel diabetic ulcer since last visit. 05/12/17. Seen by Dr. Bragg. The patient does not report significant drainage associated with the right heel, fifth toe, or fourth toe diabetic ulcers since his last visit. His wound culture from the heel grew two coag-negative staph species and he has been applying topical gentamicin as recommended. 05/05/17. Seen by Dr. Bragg. The patient is new to our clinic and presents with a right heel plus right fourth and fifth toe diabetic ulcers. His ulcers are complicated by a history of stroke and right hemiplegia, poorly controlled diabetes, and history of smoking. He reports some mild pain associated with the ulcers but no significant drainage and is not currently on antibiotics. He does continue to smoke however. He also has an arterial ultrasound from last August showing high grade stenosis of the right SFA with reconstitution at the level of the popliteal artery. Of notes, his last A1c in April was 9.4. Past Medical History This information was obtained from the patient Patient has a medical history of: Type 1 Diabetes Ischemic Cardiomyopathy Hypertension Coronary Artery Disease (CAD) Peripheral Vascular Disease Renal Failure (Stage 3, stable.) Stroke (x3 in 1998) Gastro Esoph. Reflux Disease (GERD) Complaints and Symptoms This information was obtained from the patient Patient complains of: General Notes: I have reviewed and concur with the Review of Systems and Past Family Social History documents completed by the clinician, I have reviewed and concur with the Wound Assessment document completed by the clinician Cardiovascular (Central/Peripheral): Lower extremity (leg) swelling Constitutional Symptoms (General Health): Fatigue Integumentary (Hair/Skin/Nails): Open Sore Musculoskeletal: Assistive Devices, Muscle Weakness Prior Wound History: Drainage, Erythema, Pain Patient denies complaints or symptoms related to: Cardiovascular (Central): Irregular heart beat Cardiovascular (Central/Peripheral): Lower extremity (leg) resting pain Constitutional Symptoms (General Health): Chills, Fever Ear/Nose/Mouth/Throat: Hearing Loss / Aid Gastrointestinal (GI): Stomach/abdominal pain Hematologic/Lymphatic: Bleeding / Clotting Disorders, Bleeding Tendency Neurological: Loss of Protective Sensation Prior Wound History: Bleeding Psychiatric: Memory Loss Respiratory: Shortness of Breath OBJECTIVE Constitutional Vital signs reviewed and noted. Well developed. Alert. Clean appearing.. Height/ Length: 66 in (167.64 cm), Weight: 140.9 lbs (64.05 kgs), BMI: 22.7, Temperature: 98.8 ?F ( 37.11 ?C), Pulse: 97 bpm, Respiratory Rate: 17 breaths/min, Blood Pressure: 116/77 mmHg, Capillary Blood Glucose: 342 mg/dl, Pulse Oximetry: 100 %. Vital Signs Notes: Glucose per patient Ears, Nose, Mouth, and Throat: No clinically significant hearing loss on informal examination. Respiratory: No respiratory distress. Even respirations and without use of accessory muscles.. Cardiovascular: 1+ dorsalis pedis and posterior tibial on the right. 1+ right lower extremity edema. Musculoskeletal: Right lower leg flacid paralysis. Integumentary (Hair, Skin) Mild periwound erythema without warmth. Refer to appropriate clinician wound documentation for this visit; right 5th toe ulcer extends to subcut with base partially covered with pink granulation, remainder fibrin and slough; larger and deeper than on previous review. Wound #3 Right Fifth Toe is a chronic [place] Grade 3 Diabetic Ulcer and has received a status of Not Healed. Subsequent wound encounter measurements are 0.3cm length x 0.3cm width x 0.3cm depth, with an area of 0.09 sq cm and a volume of 0.027 cubic cm. No tunneling has been noted. No sinus tract has been noted. No undermining has been noted. There was no drainage noted. The patient reports a wound pain of level 3/10. The wound margin is unable to assess. Wound bed has Yes epithelialization, No eschar, No slough, Yes bright red, pink, firm granulation. The periwound skin moisture is normal. The periwound skin exhibited: Edema, Erythema. The periwound skin did not exhibit: Brawny Induration, Excoriation, Induration, Callus, Crepitus, Fluctuance, Friable, Rash, Atrophie Pamela, Cyanosis, Ecchymosis, Hemosiderosis , Pallor, Rubor. The temperature of the periwound skin is Warm. Periwound skin does not exhibit signs or symptoms of infection. Local Pulse is Doppler. General Notes: Covered in dried drainage ASSESSMENT Active Problems ICD-10 (Encounter Diagnosis) E11.621 - Type 2 diabetes mellitus with foot ulcer (Encounter Diagnosis) L97.512 - Non-pressure chronic ulcer of other part of right foot with fat layer exposed (Encounter Diagnosis) L08.9 - Local infection of the skin and subcutaneous tissue, unspecified (Encounter Diagnosis) I70.238 - Atherosclerosis of [place] arteries of right leg with ulceration of other part of lower right leg (Encounter Diagnosis) Z72.0 - Tobacco use PROCEDURES Wound #3 Wound #3 (Diabetic Ulcer) is located on the right fifth toe. A skin/ subcutaneous tissue level surgical debridement with a total area debrided of 0.09 sq cm was performed by Niall Bragg MD. Subcutaneous was removed along with devitalized tissue: slough. The following instrument(s) were used: curette. Pain control was achieved using 4% Lido. A time out was conducted prior to the start of the procedure. A minimal amount of bleeding was controlled with n/a. The procedure was tolerated well with a pain level of 0 throughout and a pain level of 0 following the procedure. Post Debridement Measurements: 0.3cm length x 0.3cm width x 0.4cm depth; with an area of 0.09 sq cm and a volume of 0.036 cubic cm; Additional Information Muscle fascia or bone removed and sent to pathology?: No PLAN Wound Orders: Wound #3 Right Fifth Toe Anesthetic Topical Xylocaine to wound bed. - Lidocaine used in clinic. Cleanser Cleanse Wound: - Normal saline and gauze. Please wash wound with saline and gauze during each dressing change to wipe off any dried exudate adhered to wound bed. May scrub lightly with gauze. May Shower. - Please protect wounds from shower water, please use plastic bag and tape or cast protector. Topical Treatments Antibiotic/Antimicrobial Ointment/Cream. - Gentamicin ointment to wound base. Dressings Cover and secure with: - [place] corn pad around wound off load and cover with foam and hypafix tape. Change Dressing: - Daily. Off-Loading Keep weight off: Additional Orders: Follow-Up Appointments Return Appointment: - - One week. Other information: If you develop fever, chills, increased pain, drainage, redness or swelling please call our office. If after hours, respond to the ER. Should you experience any significant changes in your wound(s) or have any questions regarding your home care instructions please contact the wound center @ [phone]. If after hours, contact your primary care physician or go to the hospital emergency room. Scribing Attestation I attest, as the nurse, that I scribed these orders for the physician. Laboratory: Bacteria identified in Wound by Culture - Right 5th toe #3 General Notes: We will call you if there is any need of antibiotics. I've reviewed the clinician's documentation and agree with the evaluation and plan as written. In addition, the patient's ulcer demonstrates evidence of non-viable devitalized tissue which will continue to benefit from sharp debridement to help promote granulation and expedite healing. Also, I've taken a wound culture and started treating an infection of the right 5th toe ulcer with topical gentamicin. I've also counseled him regarding his tobacco use in the context of diabetes, his right lower leg PAD, and the deleterious effect smoking has on wound healing. Electronic Signature(s) Signed By: Date: Niall Bragg MD 10/28/2017 09:59:55 Entered By: Niall Bragg on 10/28/2017 09:02:17
== END ==
PROVIDERS: Family Provider Internal Medicine; PCP Internal Medicine; Visit Provider Internal Medicine
DX: E11.621 Type 2 diabetes mellitus with foot ulcer (principal); L97.512 Non-pressure chronic ulcer of other part of right foot with fat layer exposed; L08.9 Local infection of the skin and subcutaneous tissue, unspecified; I70.238 Atherosclerosis of native arteries of right leg with ulceration of other part of lower leg; Z72.0 Tobacco use
CPT/HCPCS: 11042; 87070; 87075; 87205

== ENCOUNTER → 2017-11-10 13:38 | Outpatient (CLI) | payer MEDICARE, MEDICAID, SELFPAY ==
--- NOTE | 2017-11-10 | OV.WND_ITS ---
Progress Note Details Patient Name: Ray Foster Patient Number: [id number] PatientPatientDate: 11/10/2017 Clinician: Agata Ordaz Clinician Cosigner: Fiona Brooks Physician / Building Components Designer: Niall Bragg SUBJECTIVE Chief Complaint This information was obtained from the patient Diabetic ulcer to right 5th toe. Allergies [facility] This information was obtained from the patient 11/10/17. Seen by Dr. Bragg. The patient does not report pain nor significant drainage associated with chronic right fifth toe diabetic ulcer since his last visit. 10/27/17. Seen by Dr. Bragg. The nurse reports increased redness and swelling of the right 5th toe and the patient feels the associated diabetic ulcer has increased in size over the past week. His blood sugars are again elevated today at 342 and of note he states he's still smoking about 10 cigarettes per day despite having PAD that's required intervention recently. 10/20/17. Seen by Vinayak Maguire PA-C. The patient reports stable drainage from his right 5th toe diabetic ulcer. 10/13/17. Seen by Dr. Bragg. The patient does not report pain nor significant drainage associated with chronic right fifth toe diabetic ulcer since his last visit. Also, his blood sugar today is 325 and has been intermittently very elevated the past few weeks. Of note, his ulcer and diabetes is complicated by his being wheelchair bound due to a significant stroke and near 100% reliance upon caregivers at his assisted living facility. 10/06/17. Seen by Dr. Bragg. The patient continues to report feeling very fatigued but does not report specific symptoms otherwise nor acute issues regarding his right 5th toe diabetic ulcer. Of note, his blood sugar is over 400 today and he feels there was a lot of ' sugar' in his meal last night. 09/22/17. Seen by Dr. Bragg. The patient does not report pain nor significant drainage associated with chronic right fifth toe diabetic ulcer since his last visit. 09/15/17. Seen by Dr. Bragg. The patient reports feeling generally unwell and very fatigued over the past 3-4 days but does not report any other specific acute symptoms at this time. He does say that he has noticed some stinging pain associated with the chronic right 5th toe diabetic ulcer as well. 09/08/17. Seen by Dr. Bragg. The patient does not report pain nor significant drainage associated with chronic right fifth toe diabetic ulcer since his last visit. 09/01/17. Seen by Dr. Bragg. The patient does not report pain nor significant drainage associated with chronic right fifth toe diabetic ulcer since his last visit. 08/25/17. Seen by Dr. Bragg. The patient does not report pain nor significant drainage associated with chronic right fifth toe diabetic ulcer since his last visit. 08/19/17. Seen by Dr. Bragg. The patient reports some mild discomfort associated with chronic right fifth toe diabetic ulcer that is not report significant drainage however. He had his angioplasty over 2 weeks ago to address the severe related PAD and does not report any complications following the procedure. 08/12/17. Seen by Dr. Bragg. The patient underwent angioplasty for his right leg PAD Wednesday he states that his rest pain has not resolved. He is not on Plavix and reports some pain associated with the right fifth toe diabetic ulcer but no smoking drainage or other acute changes. 08/03/17. Seen by Dr. Bragg. The patient was seen by his vascular surgeon at [facility] and he is scheduled for intervention for his severe right leg PAD this . He reports some persistent pain associated with her right fifth toe diabetic ulcer as well and his wound culture grew MSSA for which he is applying topical gentamicin. He does not report increased drainage from the site and of note his condition is complicated considerably by history of paraplegia and a CVA with resultant right-sided hemiparesis. 07/27/17. Seen by Dr. Bragg. The patient reports some intermittent pain associated with chronic right fifth toe diabetic ulcer since last visit. He has not yet arranged an appointment with vascular surgery at [facility] to review the right leg PAD although he was referred last week. 07/20/17. Seen by Dr. Bragg. The patient does not report significant drainage associated with the chronic right fifth toe diabetic ulcer since his last visit. Of note, a referral was sent in mid June to review the right leg PAD however according to the patient this has not been followed through on. Of note, the patient's condition is complicated significantly by a history of paraplegia as well as CVA and he resides in assisted living. 07/13/17. Seen by Vinayak Maguire PA-C. The patient reports stable drainage from his right 5th toe ulcer. 07/08/17. Seen by Vinayak Maguire PA-C. The patient reports no increase in drainage from his right 5th toe ulcer. 06/28/17. Seen by Vinayak Maguire PA-C. The patient reports that his dressings are being changed at the SNF as instructed now. He reports decreased drainage from all of his ulcers. 06/22/17. Seen by Vinayak Maguire PA-C. The patient reports that his dressing on his right 5th toe was not changed by the SNF since his last visit and appears much worse. He also reports that he is not using diabetic shoes. He notes several blood sugars recorded above 150 this week. . Seen by Dr. Bragg. The patient reports intermittent pain associated with the chronic right fifth fourth and second toe diabetic ulcers since his last visit. He was to start taking doxycycline however this was not available at his assisted living facility. Of note, his arterial Doppler from 08/2016 revealed a high grade stenosis of the mid-right SFA and occlusion of the distal right SFA. Also, the patient resides in assisted living do to his right hemiplegia the resulted from a stroke many years ago. 06/04/17. Seen by Vinayak Maguire PA-C. The patient reports a new ulcer has formed on his right 2nd toe. It has been present for at least 2 days by his report. 05/26/17. Seen by Vinayak Maguire PA-C. The patient reports no increase in drainage from his diabetic ulcers of the 4th and 5th toes and reports minimal drainage from his heel ulcer. 05/19/17. Seen by Dr. Bragg. The patient does not report significant pain nor increased drainage associated with the right fourth and fifth toe diabetic ulcers nor the right heel diabetic ulcer since last visit. 05/12/17. Seen by Dr. Bragg. The patient does not report significant drainage associated with the right heel, fifth toe, or fourth toe diabetic ulcers since his last visit. His wound culture from the heel grew two coag-negative staph species and he has been applying topical gentamicin as recommended. 05/05/17. Seen by Dr. Bragg. The patient is new to our clinic and presents with a right heel plus right fourth and fifth toe diabetic ulcers. His ulcers are complicated by a history of stroke and right hemiplegia, poorly controlled diabetes, and history of smoking. He reports some mild pain associated with the ulcers but no significant drainage and is not currently on antibiotics. He does continue to smoke however. He also has an arterial ultrasound from last August showing high grade stenosis of the right SFA with reconstitution at the level of the popliteal artery. Of notes, his last A1c in April was 9.4. Past Medical History This information was obtained from the patient Patient has a medical history of: Type 1 Diabetes Ischemic Cardiomyopathy Hypertension Coronary Artery Disease (CAD) Peripheral Vascular Disease Renal Failure (Stage 3, stable.) Stroke (x3 in 1998) Gastro Esoph. Reflux Disease (GERD) Complaints and Symptoms This information was obtained from the patient Patient complains of: General Notes: I have reviewed and concur with the Review of Systems and Past Family Social History documents completed by the clinician, I have reviewed and concur with the Wound Assessment document completed by the clinician Cardiovascular (Central/Peripheral): Lower extremity (leg) swelling Constitutional Symptoms (General Health): Fatigue Integumentary (Hair/Skin/Nails): Open Sore Musculoskeletal: Assistive Devices, Muscle Weakness Prior Wound History: Drainage, Erythema, Pain Patient denies complaints or symptoms related to: Cardiovascular (Central): Irregular heart beat Cardiovascular (Central/Peripheral): Lower extremity (leg) resting pain Constitutional Symptoms (General Health): Chills, Fever Ear/Nose/Mouth/Throat: Hearing Loss / Aid Gastrointestinal (GI): Stomach/abdominal pain Hematologic/Lymphatic: Bleeding / Clotting Disorders, Bleeding Tendency Neurological: Loss of Protective Sensation Prior Wound History: Bleeding Psychiatric: Memory Loss Respiratory: Shortness of Breath OBJECTIVE Constitutional Vital signs reviewed and noted. Well developed. Alert. Clean appearing.. Height/ Length: 66 in (167.64 cm), Weight: 140.9 lbs (64.05 kgs), BMI: 22.7, Temperature: 98.7 ?F ( 37.06 ?C), Pulse: 88 bpm, Respiratory Rate: 18 breaths/min, Capillary Blood Glucose: 122 mg /dl, Pulse Oximetry: 98 %. Ears, Nose, Mouth, and Throat: No clinically significant hearing loss on informal examination. Musculoskeletal: Right lower leg flacid paralysis. Integumentary (Hair, Skin) Mild periwound erythema without warmth. Refer to appropriate clinician wound documentation for this visit. Wound #3 Right Fifth Toe is a chronic Coates Grade 3 Diabetic Ulcer and has received a status of Not Healed. Subsequent wound encounter measurements are 0.2cm length x 0.4cm width x 0.2cm depth, with an area of 0.08 sq cm and a volume of 0.016 cubic cm. No tunneling has been noted. No sinus tract has been noted. No undermining has been noted. There is a scant amount of serous drainage noted which has no odor. The patient reports a wound pain of level 3/10. The wound margin is unable to assess. Wound bed has Yes epithelialization, No eschar, Yes slough, No granulation. The periwound skin moisture is normal. The periwound skin exhibited: Edema, Erythema. The periwound skin did not exhibit: Brawny Induration, Excoriation, Induration, Callus, Crepitus, Fluctuance, Friable, Rash, Atrophie Pamela, Cyanosis, Ecchymosis, Hemosiderosis , Pallor, Rubor. The temperature of the periwound skin is Warm. Periwound skin does not exhibit signs or symptoms of infection. Local Pulse is Doppler. Neurological: Cranial nerves grossly intact with symmetric function normal by informal observation.. ASSESSMENT Active Problems ICD-10 (Encounter Diagnosis) E11.621 - Type 2 diabetes mellitus with foot ulcer (Encounter Diagnosis) L97.512 - Non-pressure chronic ulcer of other part of right foot with fat layer exposed PLAN Wound Orders: Wound #3 Right Fifth Toe Anesthetic Topical Xylocaine to wound bed. - Lidocaine used in clinic. Cleanser Cleanse Wound: - Normal saline and gauze. Please wash wound with saline and gauze during each dressing change to wipe off any dried exudate adhered to wound bed. May scrub lightly with gauze. May Shower. - Please protect wounds from shower water, please use plastic bag and tape or cast protector. Dressings Cover and secure with: - [place] corn pad around wound off load and cover with foam and hypafix tape. Change Dressing: - Every two days. May leave felt surround on if not visibly soiled Off-Loading Keep weight off: Additional Orders: Follow-Up Appointments Return Appointment: - - One week. Other information: If you develop fever, chills, increased pain, drainage, redness or swelling please call our office. If after hours, respond to the ER. Should you experience any significant changes in your wound(s) or have any questions regarding your home care instructions please contact the wound center @ [phone]. If after hours, contact your primary care physician or go to the hospital emergency room. Scribing Attestation I attest, as the nurse, that I scribed these orders for the physician. I've reviewed the clinician's documentation and agree with the evaluation and plan as written. Electronic Signature(s) Signed By: Date: Niall Bragg MD 11/10/2017 16:09:26 Entered By: Niall Bragg on 11/10/2017 15:03:19
== END ==
PROVIDERS: Family Provider Internal Medicine; PCP Internal Medicine; Visit Provider Internal Medicine
DX: E11.621 Type 2 diabetes mellitus with foot ulcer (principal); L97.511 Non-pressure chronic ulcer of other part of right foot limited to breakdown of skin
CPT/HCPCS: 99212

== ENCOUNTER → 2017-11-17 13:41 | Outpatient (CLI) | payer MEDICARE, MEDICAID, SELFPAY ==
--- NOTE | 2017-11-17 | OV.WND_ITS ---
Progress Note Details Patient Name: Ray Foster Patient Number: [id number] PatientPatientDate: 11/17/2017 Clinician: Agata Ordaz Clinician Cosigner: Eusebia Reed Physician / Continuous Improvement Analyst: Niall Bragg SUBJECTIVE Chief Complaint This information was obtained from the patient Diabetic ulcer to right 5th toe. Allergies [facility] This information was obtained from the patient 11/17/17. Seen by Dr. Bragg. The patient reports some pain again associated with the chronic right 5th toe diabetic ulcer but does not report increased drainage from the site. His blood sugars are better controlled with most below 150 over the past week. Of note, the ulcer is complicated as well by his right leg PAD for which he underwent PCI this year as well as paralysis of the leg following a traumatic injury and remote stroke. 11/10/17. Seen by Dr. Bragg. The patient does not report pain nor significant drainage associated with chronic right fifth toe diabetic ulcer since his last visit. 10/27/17. Seen by Dr. Bragg. The nurse reports increased redness and swelling of the right 5th toe and the patient feels the associated diabetic ulcer has increased in size over the past week. His blood sugars are again elevated today at 342 and of note he states he's still smoking about 10 cigarettes per day despite having PAD that's required intervention recently. 10/20/17. Seen by Vinayak Maguire PA-C. The patient reports stable drainage from his right 5th toe diabetic ulcer. 10/13/17. Seen by Dr. Bragg. The patient does not report pain nor significant drainage associated with chronic right fifth toe diabetic ulcer since his last visit. Also, his blood sugar today is 325 and has been intermittently very elevated the past few weeks. Of note, his ulcer and diabetes is complicated by his being wheelchair bound due to a significant stroke and near 100% reliance upon caregivers at his assisted living facility. 10/06/17. Seen by Dr. Bragg. The patient continues to report feeling very fatigued but does not report specific symptoms otherwise nor acute issues regarding his right 5th toe diabetic ulcer. Of note, his blood sugar is over 400 today and he feels there was a lot of ' sugar' in his meal last night. 09/22/17. Seen by Dr. Bragg. The patient does not report pain nor significant drainage associated with chronic right fifth toe diabetic ulcer since his last visit. 09/15/17. Seen by Dr. Bragg. The patient reports feeling generally unwell and very fatigued over the past 3-4 days but does not report any other specific acute symptoms at this time. He does say that he has noticed some stinging pain associated with the chronic right 5th toe diabetic ulcer as well. 09/08/17. Seen by Dr. Bragg. The patient does not report pain nor significant drainage associated with chronic right fifth toe diabetic ulcer since his last visit. 09/01/17. Seen by Dr. Bragg. The patient does not report pain nor significant drainage associated with chronic right fifth toe diabetic ulcer since his last visit. 08/25/17. Seen by Dr. Bragg. The patient does not report pain nor significant drainage associated with chronic right fifth toe diabetic ulcer since his last visit. 08/19/17. Seen by Dr. Bragg. The patient reports some mild discomfort associated with chronic right fifth toe diabetic ulcer that is not report significant drainage however. He had his angioplasty over 2 weeks ago to address the severe related PAD and does not report any complications following the procedure. 08/12/17. Seen by Dr. Bragg. The patient underwent angioplasty for his right leg PAD Wednesday he states that his rest pain has not resolved. He is not on Plavix and reports some pain associated with the right fifth toe diabetic ulcer but no smoking drainage or other acute changes. 08/03/17. Seen by Dr. Bragg. The patient was seen by his vascular surgeon at [facility] and he is scheduled for intervention for his severe right leg PAD this . He reports some persistent pain associated with her right fifth toe diabetic ulcer as well and his wound culture grew MSSA for which he is applying topical gentamicin. He does not report increased drainage from the site and of note his condition is complicated considerably by history of paraplegia and a CVA with resultant right-sided hemiparesis. 07/27/17. Seen by Dr. Bragg. The patient reports some intermittent pain associated with chronic right fifth toe diabetic ulcer since last visit. He has not yet arranged an appointment with vascular surgery at [facility] to review the right leg PAD although he was referred last week. 07/20/17. Seen by Dr. Bragg. The patient does not report significant drainage associated with the chronic right fifth toe diabetic ulcer since his last visit. Of note, a referral was sent in mid June to review the right leg PAD however according to the patient this has not been followed through on. Of note, the patient's condition is complicated significantly by a history of paraplegia as well as CVA and he resides in assisted living. 07/13/17. Seen by Vinayak Maguire PA-C. The patient reports stable drainage from his right 5th toe ulcer. 07/08/17. Seen by Vinayak Maguire PA-C. The patient reports no increase in drainage from his right 5th toe ulcer. 06/28/17. Seen by Vinayak Maguire PA-C. The patient reports that his dressings are being changed at the SNF as instructed now. He reports decreased drainage from all of his ulcers. 06/22/17. Seen by Vinayak Maguire PA-C. The patient reports that his dressing on his right 5th toe was not changed by the SNF since his last visit and appears much worse. He also reports that he is not using diabetic shoes. He notes several blood sugars recorded above 150 this week. . Seen by Dr. Bragg. The patient reports intermittent pain associated with the chronic right fifth fourth and second toe diabetic ulcers since his last visit. He was to start taking doxycycline however this was not available at his assisted living facility. Of note, his arterial Doppler from 08/2016 revealed a high grade stenosis of the mid-right SFA and occlusion of the distal right SFA. Also, the patient resides in assisted living do to his right hemiplegia the resulted from a stroke many years ago. 06/04/17. Seen by Vinayak Maguire PA-C. The patient reports a new ulcer has formed on his right 2nd toe. It has been present for at least 2 days by his report. 05/26/17. Seen by Vinayak Maguire PA-C. The patient reports no increase in drainage from his diabetic ulcers of the 4th and 5th toes and reports minimal drainage from his heel ulcer. 05/19/17. Seen by Dr. Bragg. The patient does not report significant pain nor increased drainage associated with the right fourth and fifth toe diabetic ulcers nor the right heel diabetic ulcer since last visit. 05/12/17. Seen by Dr. Bragg. The patient does not report significant drainage associated with the right heel, fifth toe, or fourth toe diabetic ulcers since his last visit. His wound culture from the heel grew two coag-negative staph species and he has been applying topical gentamicin as recommended. 05/05/17. Seen by Dr. Bragg. The patient is new to our clinic and presents with a right heel plus right fourth and fifth toe diabetic ulcers. His ulcers are complicated by a history of stroke and right hemiplegia, poorly controlled diabetes, and history of smoking. He reports some mild pain associated with the ulcers but no significant drainage and is not currently on antibiotics. He does continue to smoke however. He also has an arterial ultrasound from last August showing high grade stenosis of the right SFA with reconstitution at the level of the popliteal artery. Of notes, his last A1c in April was 9.4. Past Medical History This information was obtained from the patient Patient has a medical history of: Type 1 Diabetes Ischemic Cardiomyopathy Hypertension Coronary Artery Disease (CAD) Peripheral Vascular Disease Renal Failure (Stage 3, stable.) Stroke (x3 in 1998) Gastro Esoph. Reflux Disease (GERD) Complaints and Symptoms This information was obtained from the patient Patient complains of: General Notes: I have reviewed and concur with the Review of Systems and Past Family Social History documents completed by the clinician, I have reviewed and concur with the Wound Assessment document completed by the clinician Cardiovascular (Central/Peripheral): Lower extremity (leg) swelling Constitutional Symptoms (General Health): Fatigue Integumentary (Hair/Skin/Nails): Open Sore Musculoskeletal: Assistive Devices, Muscle Weakness Prior Wound History: Drainage, Erythema, Pain Patient denies complaints or symptoms related to: Cardiovascular (Central): Irregular heart beat Cardiovascular (Central/Peripheral): Lower extremity (leg) resting pain Constitutional Symptoms (General Health): Chills, Fever Ear/Nose/Mouth/Throat: Hearing Loss / Aid Gastrointestinal (GI): Stomach/abdominal pain Hematologic/Lymphatic: Bleeding / Clotting Disorders, Bleeding Tendency Neurological: Loss of Protective Sensation Prior Wound History: Bleeding Psychiatric: Memory Loss Respiratory: Shortness of Breath OBJECTIVE Constitutional Vital signs reviewed and noted. Well developed. Alert. Clean appearing.. Height/ Length: 66 in (167.64 cm), Weight: 140.9 lbs (64.05 kgs), BMI: 22.7, Temperature: 98.4 ?F ( 36.89 ?C), Pulse: 98 bpm, Respiratory Rate: 18 breaths/min, Blood Pressure: 114/79 mmHg, Capillary Blood Glucose: 128 mg/dl, Pulse Oximetry: 98 %. Ears, Nose, Mouth, and Throat: No clinically significant hearing loss on informal examination. Respiratory: No respiratory distress. Even respirations and without use of accessory muscles.. Cardiovascular: 1+ dorsalis pedis and posterior tibial on the right. 1+ right lower extremity edema. Musculoskeletal: Right lower leg flacid paralysis. Integumentary (Hair, Skin) Mild periwound erythema without warmth. Refer to appropriate clinician wound documentation for this visit; right 5th toe ulcer extends to capsule with base partially covered with pink granulation, remainder fibrin and slough. Wound #3 Right Fifth Toe is a chronic [place] Grade 3 Diabetic Ulcer and has received a status of Not Healed. Subsequent wound encounter measurements are 0.1cm length x 0.1cm width x 0.1cm depth, with an area of 0.01 sq cm and a volume of 0.001 cubic cm. No tunneling has been noted. No sinus tract has been noted. No undermining has been noted. There was no drainage noted. The patient reports a wound pain of level 3/10. The wound margin is unable to assess. Wound bed has Yes epithelialization, No eschar, No slough, No granulation. The periwound skin moisture is normal. The periwound skin exhibited: Edema, Erythema. The periwound skin did not exhibit: Brawny Induration, Excoriation, Induration, Callus, Crepitus, Fluctuance, Friable, Rash, Atrophie [place], Cyanosis, Ecchymosis, Hemosiderosis , Pallor, Rubor. The temperature of the periwound skin is Warm. Periwound skin does not exhibit signs or symptoms of infection. Local Pulse is Doppler. ASSESSMENT Active Problems ICD-10 (Encounter Diagnosis) E11.621 - Type 2 diabetes mellitus with foot ulcer (Encounter Diagnosis) L97.512 - Non-pressure chronic ulcer of other part of right foot with fat layer exposed (Encounter Diagnosis) M79.671 - Pain in right foot (Encounter Diagnosis) I70.238 - Atherosclerosis of [place] arteries of right leg with ulceration of other part of lower right leg PROCEDURES Wound #3 Wound #3 (Diabetic Ulcer) is located on the right fifth toe. A skin/ subcutaneous tissue level surgical debridement with a total area debrided of 0.2 sq cm was performed by Niall Bragg MD. Subcutaneous was removed along with devitalized tissue: slough. The following instrument(s) were used: curette. Pain control was achieved using 4% [place]. A time out was conducted prior to the start of the procedure. A minimal amount of bleeding was controlled with n/a. The procedure was tolerated well with a pain level of 0 throughout and a pain level of 0 following the procedure. Post Debridement Measurements: 0.4cm length x 0.5cm width x 0.3cm depth; with an area of 0.2 sq cm and a volume of 0.06 cubic cm; Additional Information Muscle fascia or bone removed and sent to pathology?: No PLAN Wound Orders: Wound #3 Right Fifth Toe Anesthetic Topical Xylocaine to wound bed. - Lidocaine used in clinic. Cleanser Cleanse Wound: - Normal saline and gauze. Please wash wound with saline and gauze during each dressing change to wipe off any dried exudate adhered to wound bed. May scrub lightly with gauze. May Shower. - Please protect wounds from shower water, please use plastic bag and tape or cast protector. Topical Treatments Antibiotic/Antimicrobial Ointment/Cream. - Gentamicin ointment Dressings Cover and secure with: - foam and hypafix tape. Change Dressing: - Every other day Off-Loading Keep weight off: Additional Orders: Follow-Up Appointments Return Appointment: - - One week. Other information: If you develop fever, chills, increased pain, drainage, redness or swelling please call our office. If after hours, respond to the ER. Should you experience any significant changes in your wound(s) or have any questions regarding your home care instructions please contact the wound center @ [phone]. If after hours, contact your primary care physician or go to the hospital emergency room. Scribing Attestation I attest, as the nurse, that I scribed these orders for the physician. Radiology: Bone Scan Laboratory: Culture Wound General Notes: We will call with any positive wound cultures. Please have bone scan completed as soon as possible. Considering the possibility of Hyperbaric Oxygen therapy in the future I've reviewed the clinician's documentation and agree with the evaluation and plan as written. In addition, the patient's ulcer demonstrates evidence of non-viable devitalized tissue which will continue to benefit from sharp debridement to help promote granulation and expedite healing. Also, the right 5th toe ulcer has again deteriorated with capsule exposed today. I've ordered a nuclear bone scan to evaluate for underlying osteomyelitis and we discussed the option of adjuctive hyperbaric oxygen therapy to which the patient is amenable. Pending the scan and wound culture results I'll restart antibiotics and we'll discuss HBOT in more detail at his next visit. Electronic Signature(s) Signed By: Date: Niall Bragg MD 11/18/2017 07:19:13 Entered By: Niall Bragg on 11/18/2017 06:53:34
== END ==
PROVIDERS: Family Provider Internal Medicine; PCP Internal Medicine; Visit Provider Internal Medicine
DX: E11.621 Type 2 diabetes mellitus with foot ulcer (principal); L97.512 Non-pressure chronic ulcer of other part of right foot with fat layer exposed; M79.671 Pain in right foot; I70.238 Atherosclerosis of native arteries of right leg with ulceration of other part of lower leg
CPT/HCPCS: 11042; 87070; 87075; 87077; 87147; 87186; 87205

== ENCOUNTER → 2017-11-24 15:15 | Outpatient (CLI) | payer MEDICARE, MEDICAID, SELFPAY | PROVIDERS: Family Provider Internal Medicine; PCP Internal Medicine; Visit Provider Internal Medicine | DX: E11.621 Type 2 diabetes mellitus with foot ulcer (principal); L97.512 Non-pressure chronic ulcer of other part of right foot with fat layer exposed; I70.238 Atherosclerosis of native arteries of right leg with ulceration of other part of lower leg; S91.101A Unspecified open wound of right great toe without damage to nail, initial encounter | CPT/HCPCS: 11042 ==

== ENCOUNTER → 2017-12-02 09:09 | Outpatient (REF) | payer MEDICARE, MEDICAID, SELFPAY ==
[2017-12-02 09:28] LABS: Add Manual Diff / Slide Review NO; Basophils Percent Auto 0.5 % (0-2); Eosinophils Percent Auto 4.3 % (2-4); Hematocrit 32.3 % (41-53); Lymphocytes Percent Auto 15.8 % (25-40); Mean Corpuscular HGB Conc 34.2 % (30-36); Mean Corpuscular Hemoglobin 30.4 PG (26-34); Monocytes Percent Auto 13.2 % (3-14); Neutrophils Absolute Auto 5400 /uL (3000-5900); Neutrophils Percent Auto 66.2 % (50-75); Platelet Count 262 X10^3/uL (150-400); Red Blood Cell Count 3.63 X10^6/uL (4.5-5.9); Red Cell Distribution Width 13.8 % (11.6-14.8); White Blood Cell Count 8.1 X10^3/uL (4.5-11.0)
[2017-12-02 09:50] LABS: Blood Urea Nitrogen 20 mg/dL (9-20); Calcium 8.6 mg/dL (8.4-10.2); Carbon Dioxide 33 mmol/L (22-32); Chloride 97 mmol/L (98-107); Estimated Glomerular Filt Rate > 60.0 mL/min (>60); Glucose 372 mg/dL (80-110); HEMOLYSIS < 15 (0-50); Sodium 136 mmol/L (137-145)
[2017-12-02 18:07] LABS: Hemoglobin A1C% w Est Avg Glu 8.1 % (4.0-6.0)
== END ==
LOC: LAB 09:09
PROVIDERS: Family Provider Internal Medicine; PCP Internal Medicine; Visit Provider Internal Medicine
DX: Z15.89 Genetic susceptibility to other disease (principal); I50.9 Heart failure, unspecified; I25.10 Atherosclerotic heart disease of native coronary artery without angina pectoris; I10 Essential (primary) hypertension
CPT/HCPCS: 36415; 80048; 83036; 85025

== ENCOUNTER → 2017-12-02 13:31 | Outpatient (CLI) | payer MEDICARE, MEDICAID, SELFPAY ==
--- NOTE | 2017-12-02 | OV.WND_ITS ---
Progress Note Details Patient Name: Ray Foster Patient Number: [id number] PatientPatientDate: 12/02/2017 Clinician: Agata Ordaz Clinician Cosigner: Fiona Brooks Physician / Food Cooking Machine Operator: Niall Bragg SUBJECTIVE Chief Complaint This information was obtained from the patient Diabetic ulcer to right 5th toe. Allergies [facility] This information was obtained from the patient 12/02/17. Seen by Dr. Bragg. The patient had a stent placed this past week for PAD of the right leg and to address the chronic, non-healing right 5th toe Coates grade 3 diabetic foot ulcer. He feels the chronic pain in the leg is much improved however he refused to take his Plavix upon return to his [facility] due to confusion on whether he should take it in addition to his full dose aspirin. He does not report pain or drainage associated with the 5th toe ulcer nor the right 1st toe trauma wound since his last visit and is currently not on antibiotics. 11/24/17. Seen by Dr. Bragg. The patient states he was seen by vascular surgery at [facility] and the site of right lower leg angioplasty has collapsed. He scheduled now for stent placement or possibly a bypass to address this issue. He does not report increased pain or drainage associated with the chronic right 5th toe diabetic ulcer however notes a new trauma wound to the right 1st toe that occurred when he hit the toe on a door edge last night. His ulcer and PAD are also complicated by paraplegia, being wheelchair bound, and a history of a stroke that left him with a left sided hemiplegia. 11/17/17. Seen by Dr. Bragg. The patient reports some pain again associated with the chronic right 5th toe diabetic ulcer but does not report increased drainage from the site. His blood sugars are better controlled with most below 150 over the past week. Of note, the ulcer is complicated as well by his right leg PAD for which he underwent PCI this year as well as paralysis of the leg following a traumatic injury and remote stroke. 11/10/17. Seen by Dr. Bragg. The patient does not report pain nor significant drainage associated with chronic right fifth toe diabetic ulcer since his last visit. 10/27/17. Seen by Dr. Bragg. The nurse reports increased redness and swelling of the right 5th toe and the patient feels the associated diabetic ulcer has increased in size over the past week. His blood sugars are again elevated today at 342 and of note he states he's still smoking about 10 cigarettes per day despite having PAD that's required intervention recently. 10/20/17. Seen by Vinayak Maguire PA-C. The patient reports stable drainage from his right 5th toe diabetic ulcer. 10/13/17. Seen by Dr. Bragg. The patient does not report pain nor significant drainage associated with chronic right fifth toe diabetic ulcer since his last visit. Also, his blood sugar today is 325 and has been intermittently very elevated the past few weeks. Of note, his ulcer and diabetes is complicated by his being wheelchair bound due to a significant stroke and near 100% reliance upon caregivers at his assisted living facility. 10/06/17. Seen by Dr. Bragg. The patient continues to report feeling very fatigued but does not report specific symptoms otherwise nor acute issues regarding his right 5th toe diabetic ulcer. Of note, his blood sugar is over 400 today and he feels there was a lot of ' sugar' in his meal last night. 09/22/17. Seen by Dr. Bragg. The patient does not report pain nor significant drainage associated with chronic right fifth toe diabetic ulcer since his last visit. 09/15/17. Seen by Dr. Bragg. The patient reports feeling generally unwell and very fatigued over the past 3-4 days but does not report any other specific acute symptoms at this time. He does say that he has noticed some stinging pain associated with the chronic right 5th toe diabetic ulcer as well. 09/08/17. Seen by Dr. Bragg. The patient does not report pain nor significant drainage associated with chronic right fifth toe diabetic ulcer since his last visit. 09/01/17. Seen by Dr. Bragg. The patient does not report pain nor significant drainage associated with chronic right fifth toe diabetic ulcer since his last visit. 08/25/17. Seen by Dr. Bragg. The patient does not report pain nor significant drainage associated with chronic right fifth toe diabetic ulcer since his last visit. 08/19/17. Seen by Dr. Bragg. The patient reports some mild discomfort associated with chronic right fifth toe diabetic ulcer that is not report significant drainage however. He had his angioplasty over 2 weeks ago to address the severe related PAD and does not report any complications following the procedure. 08/12/17. Seen by Dr. Bragg. The patient underwent angioplasty for his right leg PAD Wednesday he states that his rest pain has not resolved. He is not on Plavix and reports some pain associated with the right fifth toe diabetic ulcer but no smoking drainage or other acute changes. 08/03/17. Seen by Dr. Bragg. The patient was seen by his vascular surgeon at [facility] and he is scheduled for intervention for his severe right leg PAD this . He reports some persistent pain associated with her right fifth toe diabetic ulcer as well and his wound culture grew MSSA for which he is applying topical gentamicin. He does not report increased drainage from the site and of note his condition is complicated considerably by history of paraplegia and a CVA with resultant right-sided hemiparesis. 07/27/17. Seen by Dr. Bragg. The patient reports some intermittent pain associated with chronic right fifth toe diabetic ulcer since last visit. He has not yet arranged an appointment with vascular surgery at [facility] to review the right leg PAD although he was referred last week. 07/20/17. Seen by Dr. Bragg. The patient does not report significant drainage associated with the chronic right fifth toe diabetic ulcer since his last visit. Of note, a referral was sent in mid June to review the right leg PAD however according to the patient this has not been followed through on. Of note, the patient's condition is complicated significantly by a history of paraplegia as well as CVA and he resides in assisted living. 07/13/17. Seen by Vinayak Maguire PA-C. The patient reports stable drainage from his right 5th toe ulcer. 07/08/17. Seen by Vinayak Maguire PA-C. The patient reports no increase in drainage from his right 5th toe ulcer. 06/28/17. Seen by Vinayak Maguire PA-C. The patient reports that his dressings are being changed at the SNF as instructed now. He reports decreased drainage from all of his ulcers. 06/22/17. Seen by Vinayak Maguire PA-C. The patient reports that his dressing on his right 5th toe was not changed by the SNF since his last visit and appears much worse. He also reports that he is not using diabetic shoes. He notes several blood sugars recorded above 150 this week. . Seen by Dr. Bragg. The patient reports intermittent pain associated with the chronic right fifth fourth and second toe diabetic ulcers since his last visit. He was to start taking doxycycline however this was not available at his assisted living facility. Of note, his arterial Doppler from 08/2016 revealed a high grade stenosis of the mid-right SFA and occlusion of the distal right SFA. Also, the patient resides in assisted living do to his right hemiplegia the resulted from a stroke many years ago. 06/04/17. Seen by Vinayak Maguire PA-C. The patient reports a new ulcer has formed on his right 2nd toe. It has been present for at least 2 days by his report. 05/26/17. Seen by Vinayak Maguire PA-C. The patient reports no increase in drainage from his diabetic ulcers of the 4th and 5th toes and reports minimal drainage from his heel ulcer. 05/19/17. Seen by Dr. Bragg. The patient does not report significant pain nor increased drainage associated with the right fourth and fifth toe diabetic ulcers nor the right heel diabetic ulcer since last visit. 05/12/17. Seen by Dr. Bragg. The patient does not report significant drainage associated with the right heel, fifth toe, or fourth toe diabetic ulcers since his last visit. His wound culture from the heel grew two coag-negative staph species and he has been applying topical gentamicin as recommended. 05/05/17. Seen by Dr. Bragg. The patient is new to our clinic and presents with a right heel plus right fourth and fifth toe diabetic ulcers. His ulcers are complicated by a history of stroke and right hemiplegia, poorly controlled diabetes, and history of smoking. He reports some mild pain associated with the ulcers but no significant drainage and is not currently on antibiotics. He does continue to smoke however. He also has an arterial ultrasound from last August showing high grade stenosis of the right SFA with reconstitution at the level of the popliteal artery. Of notes, his last A1c in April was 9.4. Past Medical History This information was obtained from the patient Patient has a medical history of: Type 1 Diabetes Ischemic Cardiomyopathy Hypertension Coronary Artery Disease (CAD) Peripheral Vascular Disease Renal Failure (Stage 3, stable.) Stroke (x3 in 1998) Gastro Esoph. Reflux Disease (GERD) Complaints and Symptoms This information was obtained from the patient Patient complains of: General Notes: I have reviewed and concur with the Review of Systems and Past Family Social History documents completed by the clinician, I have reviewed and concur with the Wound Assessment document completed by the clinician Cardiovascular (Central/Peripheral): Lower extremity (leg) swelling Constitutional Symptoms (General Health): Fatigue Integumentary (Hair/Skin/Nails): Open Sore Musculoskeletal: Assistive Devices, Muscle Weakness Prior Wound History: Drainage, Erythema, Pain Patient denies complaints or symptoms related to: Cardiovascular (Central): Irregular heart beat Cardiovascular (Central/Peripheral): Lower extremity (leg) resting pain Constitutional Symptoms (General Health): Chills, Fever Ear/Nose/Mouth/Throat: Hearing Loss / Aid Gastrointestinal (GI): Stomach/abdominal pain Hematologic/Lymphatic: Bleeding / Clotting Disorders, Bleeding Tendency Neurological: Loss of Protective Sensation Prior Wound History: Bleeding Psychiatric: Memory Loss Respiratory: Shortness of Breath OBJECTIVE Constitutional Vital signs reviewed and noted. Well developed. Alert. Clean appearing.. Height/ Length: 66 in (167.64 cm), Weight: 140.9 lbs (64.05 kgs), BMI: 22.7, Temperature: 98.5 ?F ( 36.94 ?C), Pulse: 78 bpm, Respiratory Rate: 18 breaths/min, Blood Pressure: 124/74 mmHg, Capillary Blood Glucose: 180 mg/dl, Pulse Oximetry: 99 %. Vital Signs Notes: Glucose per patient. Ears, Nose, Mouth, and Throat: No clinically significant hearing loss on informal examination. Respiratory: No respiratory distress. Even respirations and without use of accessory muscles.. Cardiovascular: 1+ right lower extremity edema. Musculoskeletal: Right lower leg flacid paralysis. Integumentary (Hair, Skin) No periwound erythema, warmth, or significant drainage. No periwound rashes appreciated or noted otherwise.. Refer to appropriate clinician wound documentation for this visit; right 5th toe ulcer extends to capsule with base partially covered with pink granulation, remainder fibrin and slough; right 1st toe wound extends to dermis. Wound #3 Right Fifth Toe is a chronic Coates Grade 3 Diabetic Ulcer and has received a status of Not Healed. Subsequent wound encounter measurements are 0.2cm length x 0.2cm width x 0.2cm depth, with an area of 0.04 sq cm and a volume of 0.008 cubic cm. No tunneling has been noted. No sinus tract has been noted. No undermining has been noted. There is a moderate amount of sero-sanguineous drainage noted which has no odor. The patient reports a wound pain of level 3/10. The wound margin is unable to assess. Wound bed has Yes epithelialization, No eschar, Yes slough, Yes pink, firm granulation. The periwound skin exhibited: Edema, Moist, Maceration, Erythema. The periwound skin did not exhibit: Brawny Induration, Excoriation, Induration, Callus, Crepitus, Fluctuance, Friable, Rash, Dry/Scaly, Atrophie [place], Cyanosis, Ecchymosis, Hemosiderosis, Pallor, Rubor. The temperature of the periwound skin is Warm. Periwound skin does not exhibit signs or symptoms of infection. Local Pulse is Doppler. Wound #5 Right Great Toe is an acute Full Thickness Trauma Wound and has received a status of Not Healed. Subsequent wound encounter measurements are 0.5cm length x 0.7cm width x 0.1cm depth, with an area of 0.35 sq cm and a volume of 0.035 cubic cm. No tunneling has been noted. No sinus tract has been noted. No undermining has been noted. There is a moderate amount of sero-sanguineous drainage noted which has no odor. The patient reports a wound pain of level 0/10. The wound margin is attached. Wound bed has Yes epithelialization, Yes eschar, Yes slough, Yes bright red, pink, firm granulation. The periwound skin color is normal. The periwound skin exhibited: Edema, Moist, Maceration. The periwound skin did not exhibit: Brawny Induration, Excoriation, Induration, Callus, Crepitus, Fluctuance, Friable, Rash, Dry/Scaly. The temperature of the periwound skin is WNL. Periwound skin does not exhibit signs or symptoms of infection. Local Pulse is Doppler. ASSESSMENT Active Problems ICD-10 (Encounter Diagnosis) E11.621 - Type 2 diabetes mellitus with foot ulcer (Encounter Diagnosis) L97.512 - Non-pressure chronic ulcer of other part of right foot with fat layer exposed (Encounter Diagnosis) I70.238 - Atherosclerosis of [place] arteries of right leg with ulceration of other part of lower right leg (Encounter Diagnosis) S91.101D - Unspecified open wound of right great toe without damage to nail, subsequent encounter PROCEDURES Wound #3 Wound #3 (Diabetic Ulcer) is located on the right fifth toe. A skin/ subcutaneous tissue level surgical debridement with a total area debrided of 0.09 sq cm was performed by Niall Bragg MD. Subcutaneous was removed along with devitalized tissue: callus and slough. The following instrument(s) were used: curette. Pain control was achieved using 4% Lido. A time out was conducted prior to the start of the procedure. A minimal amount of bleeding was controlled with n/a. The procedure was tolerated well with a pain level of 0 throughout and a pain level of 0 following the procedure. Post Debridement Measurements: 0.3cm length x 0.3cm width x 0.3cm depth; with an area of 0.09 sq cm and a volume of 0.027 cubic cm; Additional Information Muscle fascia or bone removed and sent to pathology?: No PLAN Wound Orders: Wound #3 Right Fifth Toe Anesthetic Topical Xylocaine to wound bed. - Lidocaine used in clinic. Cleanser Cleanse Wound: - Normal saline and gauze. Please wash wound with saline and gauze during each dressing change to wipe off any dried exudate adhered to wound bed. May scrub lightly with gauze. May Shower. - Please protect wounds from shower water, please use plastic bag and tape or cast protector. Topical Treatments Antibiotic/Antimicrobial Ointment/Cream. - Triple antibiotic ointment. Dressings Cover and secure with: - Foam and hypafix tape. Change Dressing: - Every other day. Off-Loading Keep weight off: Wound #5 Right Great Toe Anesthetic Topical Xylocaine to wound bed. - Lidocaine used in clinic. Cleanser Cleanse Wound: - Normal saline and gauze. Please wash wound with saline and gauze during each dressing change to wipe off any dried exudate adhered to wound bed. May scrub lightly with gauze. May Shower. - Please protect wounds from shower water, please use plastic bag and tape or cast protector. Topical Treatments Antibiotic/Antimicrobial Ointment/Cream. - Triple antibiotic ointment. Additional Orders: Follow-Up Appointments Return Appointment: - - One week Other information: If you develop fever, chills, increased pain, drainage, redness or swelling please call our office. If after hours, respond to the ER. Should you experience any significant changes in your wound(s) or have any questions regarding your home care instructions please contact the wound center @ [phone]. If after hours, contact your primary care physician or go to the hospital emergency room. Scribing Attestation I attest, as the nurse, that I scribed these orders for the physician. I've reviewed the clinician's documentation and agree with the evaluation and plan as written. In addition, the patient's ulcer demonstrates evidence of non-viable devitalized tissue which will continue to benefit from sharp debridement to help promote granulation and expedite healing. Also, the patient will review his discharge paperwork regarding whether or not to take Plavix and he's to contact his vascular provider's office today if there's any confusion. Electronic Signature(s) Signed By: Date: Niall Bragg MD 12/03/2017 08:13:35 Entered By: Niall Bragg on 12/03/2017 08:06:32
== END ==
PROVIDERS: Family Provider Internal Medicine; PCP Internal Medicine; Visit Provider Internal Medicine
DX: E11.621 Type 2 diabetes mellitus with foot ulcer (principal); L97.512 Non-pressure chronic ulcer of other part of right foot with fat layer exposed; I70.238 Atherosclerosis of native arteries of right leg with ulceration of other part of lower leg; S91.101D Unspecified open wound of right great toe without damage to nail, subsequent encounter
CPT/HCPCS: 11042

== ENCOUNTER → 2017-12-09 13:12 | Outpatient (CLI) | payer MEDICARE, MEDICAID, SELFPAY ==
--- NOTE | 2017-12-09 | OV.WND_ITS ---
Progress Note Details Patient Name: Ray Foster Patient Number: [id number] PatientPatientDate: 12/09/2017 Clinician: Gayle Delcid Clinician Cosigner: Eusebia Reed Physician / Pharmacy Delivery Driver: Niall Bragg SUBJECTIVE Chief Complaint This information was obtained from the patient Diabetic ulcer to right 5th toe. Allergies [facility] This information was obtained from the patient 12/09/17. Seen by Dr. Bragg. The patient does not report pain nor significant drainage associated with chronic right fifth toe diabetic ulcer since his last visit. 12/02/17. Seen by Dr. Bragg. The patient had a stent placed this past week for PAD of the right leg and to address the chronic, non-healing right 5th toe Coates grade 3 diabetic foot ulcer. He feels the chronic pain in the leg is much improved however he refused to take his Plavix upon return to his [facility] due to confusion on whether he should take it in addition to his full dose aspirin. He does not report pain or drainage associated with the 5th toe ulcer nor the right 1st toe trauma wound since his last visit and is currently not on antibiotics. 11/24/17. Seen by Dr. Bragg. The patient states he was seen by vascular surgery at [place] and the site of right lower leg angioplasty has collapsed. He scheduled now for stent placement or possibly a bypass to address this issue. He does not report increased pain or drainage associated with the chronic right 5th toe diabetic ulcer however notes a new trauma wound to the right 1st toe that occurred when he hit the toe on a door edge last night. His ulcer and PAD are also complicated by paraplegia, being wheelchair bound, and a history of a stroke that left him with a left sided hemiplegia. 11/17/17. Seen by Dr. Bragg. The patient reports some pain again associated with the chronic right 5th toe diabetic ulcer but does not report increased drainage from the site. His blood sugars are better controlled with most below 150 over the past week. Of note, the ulcer is complicated as well by his right leg PAD for which he underwent PCI this year as well as paralysis of the leg following a traumatic injury and remote stroke. 11/10/17. Seen by Dr. Bragg. The patient does not report pain nor significant drainage associated with chronic right fifth toe diabetic ulcer since his last visit. 10/27/17. Seen by Dr. Bragg. The nurse reports increased redness and swelling of the right 5th toe and the patient feels the associated diabetic ulcer has increased in size over the past week. His blood sugars are again elevated today at 342 and of note he states he's still smoking about 10 cigarettes per day despite having PAD that's required intervention recently. 10/20/17. Seen by Vinayak Maguire PA-C. The patient reports stable drainage from his right 5th toe diabetic ulcer. 10/13/17. Seen by Dr. Brgag. The patient does not report pain nor significant drainage associated with chronic right fifth toe diabetic ulcer since his last visit. Also, his blood sugar today is 325 and has been intermittently very elevated the past few weeks. Of note, his ulcer and diabetes is complicated by his being wheelchair bound due to a significant stroke and near 100% reliance upon caregivers at his assisted living facility. 10/06/17. Seen by Dr. Bragg. The patient continues to report feeling very fatigued but does not report specific symptoms otherwise nor acute issues regarding his right 5th toe diabetic ulcer. Of note, his blood sugar is over 400 today and he feels there was a lot of ' sugar' in his meal last night. 09/22/17. Seen by Dr. Bragg. The patient does not report pain nor significant drainage associated with chronic right fifth toe diabetic ulcer since his last visit. 09/15/17. Seen by Dr. Bragg. The patient reports feeling generally unwell and very fatigued over the past 3-4 days but does not report any other specific acute symptoms at this time. He does say that he has noticed some stinging pain associated with the chronic right 5th toe diabetic ulcer as well. 09/08/17. Seen by Dr. Bragg. The patient does not report pain nor significant drainage associated with chronic right fifth toe diabetic ulcer since his last visit. 09/01/17. Seen by Dr. Bragg. The patient does not report pain nor significant drainage associated with chronic right fifth toe diabetic ulcer since his last visit. 08/25/17. Seen by Dr. Bragg. The patient does not report pain nor significant drainage associated with chronic right fifth toe diabetic ulcer since his last visit. 08/19/17. Seen by Dr. Bragg. The patient reports some mild discomfort associated with chronic right fifth toe diabetic ulcer that is not report significant drainage however. He had his angioplasty over 2 weeks ago to address the severe related PAD and does not report any complications following the procedure. 08/12/17. Seen by Dr. Bragg. The patient underwent angioplasty for his right leg PAD Wednesday he states that his rest pain has not resolved. He is not on Plavix and reports some pain associated with the right fifth toe diabetic ulcer but no smoking drainage or other acute changes. 08/03/17. Seen by Dr. Bragg. The patient was seen by his vascular surgeon at [facility] and he is scheduled for intervention for his severe right leg PAD this . He reports some persistent pain associated with her right fifth toe diabetic ulcer as well and his wound culture grew MSSA for which he is applying topical gentamicin. He does not report increased drainage from the site and of note his condition is complicated considerably by history of paraplegia and a CVA with resultant right-sided hemiparesis. 07/27/17. Seen by Dr. Bragg. The patient reports some intermittent pain associated with chronic right fifth toe diabetic ulcer since last visit. He has not yet arranged an appointment with vascular surgery at [facility] to review the right leg PAD although he was referred last week. 07/20/17. Seen by Dr. Bragg. The patient does not report significant drainage associated with the chronic right fifth toe diabetic ulcer since his last visit. Of note, a referral was sent in mid June to review the right leg PAD however according to the patient this has not been followed through on. Of note, the patient's condition is complicated significantly by a history of paraplegia as well as CVA and he resides in assisted living. 07/13/17. Seen by Vinayak Maguire PA-C. The patient reports stable drainage from his right 5th toe ulcer. 07/08/17. Seen by Vinayak Maguire PA-C. The patient reports no increase in drainage from his right 5th toe ulcer. 06/28/17. Seen by Vinayak Maguire PA-C. The patient reports that his dressings are being changed at the SNF as instructed now. He reports decreased drainage from all of his ulcers. 06/22/17. Seen by Vinayak Maguire PA-C. The patient reports that his dressing on his right 5th toe was not changed by the SNF since his last visit and appears much worse. He also reports that he is not using diabetic shoes. He notes several blood sugars recorded above 150 this week. . Seen by Dr. Bragg. The patient reports intermittent pain associated with the chronic right fifth fourth and second toe diabetic ulcers since his last visit. He was to start taking doxycycline however this was not available at his assisted living facility. Of note, his arterial Doppler from 08/2016 revealed a high grade stenosis of the mid-right SFA and occlusion of the distal right SFA. Also, the patient resides in assisted living do to his right hemiplegia the resulted from a stroke many years ago. 06/04/17. Seen by Vinayak Maguire PA-C. The patient reports a new ulcer has formed on his right 2nd toe. It has been present for at least 2 days by his report. 05/26/17. Seen by Vinayak Maguire PA-C. The patient reports no increase in drainage from his diabetic ulcers of the 4th and 5th toes and reports minimal drainage from his heel ulcer. 05/19/17. Seen by Dr. Bragg. The patient does not report significant pain nor increased drainage associated with the right fourth and fifth toe diabetic ulcers nor the right heel diabetic ulcer since last visit. 05/12/17. Seen by Dr. Bragg. The patient does not report significant drainage associated with the right heel, fifth toe, or fourth toe diabetic ulcers since his last visit. His wound culture from the heel grew two coag-negative staph species and he has been applying topical gentamicin as recommended. 05/05/17. Seen by Dr. Bragg. The patient is new to our clinic and presents with a right heel plus right fourth and fifth toe diabetic ulcers. His ulcers are complicated by a history of stroke and right hemiplegia, poorly controlled diabetes, and history of smoking. He reports some mild pain associated with the ulcers but no significant drainage and is not currently on antibiotics. He does continue to smoke however. He also has an arterial ultrasound from last August showing high grade stenosis of the right SFA with reconstitution at the level of the popliteal artery. Of notes, his last A1c in April was 9.4. Past Medical History This information was obtained from the patient Patient has a medical history of: Type 1 Diabetes Ischemic Cardiomyopathy Hypertension Coronary Artery Disease (CAD) Peripheral Vascular Disease Renal Failure (Stage 3, stable.) Stroke (x3 in 1998) Gastro Esoph. Reflux Disease (GERD) Complaints and Symptoms This information was obtained from the patient Patient complains of: General Notes: I have reviewed and concur with the Review of Systems and Past Family Social History documents completed by the clinician, I have reviewed and concur with the Wound Assessment document completed by the clinician Cardiovascular (Central/Peripheral): Lower extremity (leg) swelling Constitutional Symptoms (General Health): Fatigue Integumentary (Hair/Skin/Nails): Open Sore Musculoskeletal: Assistive Devices, Muscle Weakness Prior Wound History: Drainage, Erythema, Pain Patient denies complaints or symptoms related to: Cardiovascular (Central): Irregular heart beat Cardiovascular (Central/Peripheral): Lower extremity (leg) resting pain Constitutional Symptoms (General Health): Chills, Fever Ear/Nose/Mouth/Throat: Hearing Loss / Aid Gastrointestinal (GI): Stomach/abdominal pain Hematologic/Lymphatic: Bleeding / Clotting Disorders, Bleeding Tendency Neurological: Loss of Protective Sensation Prior Wound History: Bleeding Psychiatric: Memory Loss Respiratory: Shortness of Breath OBJECTIVE Constitutional BP elevated; Afebrile; Alert and in no distress. Well developed. Alert. Clean appearing.. Height/Length: 66 in (167.64 cm), Weight: 140.9 lbs (64.05 kgs), BMI: 22.7, Temperature: 98.5 ?F (36.94 ?C), Pulse: 85 bpm, Respiratory Rate: 18 breaths/min, Blood Pressure: 92/56 mmHg, Capillary Blood Glucose: 188 mg/dl, Pulse Oximetry: 97 %. Vital Signs Notes: Glucose per patient. Ears, Nose, Mouth, and Throat: No clinically significant hearing loss on informal examination. Cardiovascular: 1+ right lower extremity edema. Musculoskeletal: Right lower leg flacid paralysis. Integumentary (Hair, Skin) No periwound erythema, warmth, or significant drainage. No periwound rashes appreciated or noted otherwise.. Refer to appropriate clinician wound documentation for this visit; right 5th toe ulcer extends to subcut with base partially covered with pink granulation, remainder fibrin and slough. Wound #3 Right Fifth Toe is a chronic Coates Grade 3 Diabetic Ulcer and has received a status of Not Healed. Subsequent wound encounter measurements are 0.1cm length x 0.1cm width x 0.1cm depth, with an area of 0.01 sq cm and a volume of 0.001 cubic cm. No tunneling has been noted. No sinus tract has been noted. No undermining has been noted. There is a scant amount of sero-sanguineous drainage noted which has no odor. The patient reports a wound pain of level 3/10. The wound margin is unable to assess. Wound bed has Yes epithelialization, No eschar, No slough, No granulation. The periwound skin exhibited: Edema, Moist, Maceration, Erythema. The periwound skin did not exhibit: Brawny Induration, Excoriation, Induration, Callus, Crepitus, Fluctuance, Friable, Rash, Dry/Scaly, Atrophie Pamela, Cyanosis, Ecchymosis, Hemosiderosis, Pallor, Rubor. The temperature of the periwound skin is Warm. Periwound skin does not exhibit signs or symptoms of infection. Local Pulse is Doppler. Wound #5 Right Great Toe is an acute Full Thickness Trauma Wound and has received a status of Not Healed. Subsequent wound encounter measurements are 0.3cm length x 0.3cm width x 0.2cm depth, with an area of 0.09 sq cm and a volume of 0.018 cubic cm. No tunneling has been noted. No sinus tract has been noted. No undermining has been noted. There is a small amount of sero-sanguineous drainage noted which has no odor. The patient reports a wound pain of level 0/10. The wound margin is attached. Wound bed has Yes epithelialization, No eschar, Yes slough, Yes pink, firm granulation. The periwound skin color is normal. The periwound skin exhibited: Edema, Moist, Maceration. The periwound skin did not exhibit: Brawny Induration, Excoriation, Induration, Callus, Crepitus, Fluctuance, Friable, Rash, Dry/Scaly. The temperature of the periwound skin is WNL. Periwound skin does not exhibit signs or symptoms of infection. Local Pulse is Doppler. Neurological: Cranial nerves grossly intact with symmetric function normal by informal observation.. ASSESSMENT Active Problems ICD-10 (Encounter Diagnosis) E11.621 - Type 2 diabetes mellitus with foot ulcer (Encounter Diagnosis) L97.512 - Non-pressure chronic ulcer of other part of right foot with fat layer exposed (Encounter Diagnosis) I70.238 - Atherosclerosis of morongo arteries of right leg with ulceration of other part of lower right leg (Encounter Diagnosis) S91.101D - Unspecified open wound of right great toe without damage to nail, subsequent encounter PROCEDURES Wound #3 Wound #3 (Diabetic Ulcer) is located on the right fifth toe. A skin/ subcutaneous tissue level surgical debridement with a total area debrided of 0.04 sq cm was performed by Niall Bragg MD. Subcutaneous was removed along with devitalized tissue: exudate and slough. The following instrument(s) were used: curette. Pain control was achieved using 4% Lido. A time out was conducted prior to the start of the procedure. A minimal amount of bleeding was controlled with pressure. The procedure was tolerated well with a pain level of 0 throughout and a pain level of 0 following the procedure. Post Debridement Measurements: 0.2cm length x 0.2cm width x 0.3cm depth; with an area of 0.04 sq cm and a volume of 0.012 cubic cm; Additional Information Muscle fascia or bone removed and sent to pathology?: No PLAN Wound Orders: Wound #3 Right Fifth Toe Anesthetic Topical Xylocaine to wound bed. - Lidocaine used in clinic. Cleanser Cleanse Wound: - Normal saline and gauze. Please wash wound with saline and gauze during each dressing change to wipe off any dried exudate adhered to wound bed. May scrub lightly with gauze. May Shower. - Please protect wounds from shower water, please use plastic bag and tape or cast protector. Topical Treatments Antibiotic/Antimicrobial Ointment/Cream. - Triple antibiotic ointment. Dressings Cover and secure with: - Foam and hypafix tape. Change Dressing: - Every other day. Off-Loading Keep weight off: Wound #5 Right Great Toe Anesthetic Topical Xylocaine to wound bed. - Lidocaine used in clinic. Cleanser Cleanse Wound: - Normal saline and gauze. Please wash wound with saline and gauze during each dressing change to wipe off any dried exudate adhered to wound bed. May scrub lightly with gauze. May Shower. - Please protect wounds from shower water, please use plastic bag and tape or cast protector. Topical Treatments Antibiotic/Antimicrobial Ointment/Cream. - Triple antibiotic ointment. Additional Orders: Follow-Up Appointments Return Appointment: - - two weekss Other information: If you develop fever, chills, increased pain, drainage, redness or swelling please call our office. If after hours, respond to the ER. Should you experience any significant changes in your wound(s) or have any questions regarding your home care instructions please contact the wound center @ [phone]. If after hours, contact your primary care physician or go to the hospital emergency room. Scribing Attestation I attest, as the nurse, that I scribed these orders for the physician. I've reviewed the clinician's documentation and agree with the evaluation and plan as written. In addition, the patient's ulcer demonstrates evidence of non-viable devitalized tissue which will continue to benefit from sharp debridement to help promote granulation and expedite healing. Electronic Signature(s) Signed By: Date: Niall Bragg MD 12/10/2017 14:56:11 Entered By: Niall Bragg on 12/09/2017 15:27:39
== END ==
PROVIDERS: Family Provider Internal Medicine; PCP Internal Medicine; Visit Provider Internal Medicine
DX: E11.621 Type 2 diabetes mellitus with foot ulcer (principal); L97.512 Non-pressure chronic ulcer of other part of right foot with fat layer exposed; S91.101A Unspecified open wound of right great toe without damage to nail, initial encounter; I70.238 Atherosclerosis of native arteries of right leg with ulceration of other part of lower leg
CPT/HCPCS: 11042

== ENCOUNTER → 2017-12-16 14:28 | Outpatient (CLI) | payer MEDICARE, MEDICAID, SELFPAY ==
--- NOTE | 2017-12-16 | OV.WND_ITS ---
Progress Note Details Patient Name: Ray Foster Patient Number: [id number] PatientPatientDate: 12/16/2017 Clinician: Gayle Delcid Clinician Cosigner: Eusebia Reed Physician / Emergency Vehicle Operations Instructor: Niall Bragg SUBJECTIVE Chief Complaint This information was obtained from the patient Diabetic ulcer to right 5th toe. Allergies [facility] This information was obtained from the patient 12/16/17. Seen by Dr. Bragg. The patient does not report pain nor significant drainage associated with chronic right fifth toe diabetic ulcer nor right 1st toe trauma wound since his last visit. He is concerned however about his increased leg edema since his PCI for right lower leg PAD two weeks ago. 12/09/17. Seen by Dr. Bragg. The patient does not report pain nor significant drainage associated with chronic right fifth toe diabetic ulcer since his last visit. 12/02/17. Seen by Dr. Bragg. The patient had a stent placed this past week for PAD of the right leg and to address the chronic, non-healing right 5th toe [place] grade 3 diabetic foot ulcer. He feels the chronic pain in the leg is much improved however he refused to take his Plavix upon return to his [facility] due to confusion on whether he should take it in addition to his full dose aspirin. He does not report pain or drainage associated with the 5th toe ulcer nor the right 1st toe trauma wound since his last visit and is currently not on antibiotics. 11/24/17. Seen by Dr. Bragg. The patient states he was seen by vascular surgery at [place] and the site of right lower leg angioplasty has collapsed. He scheduled now for stent placement or possibly a bypass to address this issue. He does not report increased pain or drainage associated with the chronic right 5th toe diabetic ulcer however notes a new trauma wound to the right 1st toe that occurred when he hit the toe on a door edge last night. His ulcer and PAD are also complicated by paraplegia, being wheelchair bound, and a history of a stroke that left him with a left sided hemiplegia. 11/17/17. Seen by Dr. Bragg. The patient reports some pain again associated with the chronic right 5th toe diabetic ulcer but does not report increased drainage from the site. His blood sugars are better controlled with most below 150 over the past week. Of note, the ulcer is complicated as well by his right leg PAD for which he underwent PCI this year as well as paralysis of the leg following a traumatic injury and remote stroke. 11/10/17. Seen by Dr. Bragg. The patient does not report pain nor significant drainage associated with chronic right fifth toe diabetic ulcer since his last visit. 10/27/17. Seen by Dr. Bragg. The nurse reports increased redness and swelling of the right 5th toe and the patient feels the associated diabetic ulcer has increased in size over the past week. His blood sugars are again elevated today at 342 and of note he states he's still smoking about 10 cigarettes per day despite having PAD that's required intervention recently. 10/20/17. Seen by Vinayak Maguire PA-C. The patient reports stable drainage from his right 5th toe diabetic ulcer. 10/13/17. Seen by Dr. Bragg. The patient does not report pain nor significant drainage associated with chronic right fifth toe diabetic ulcer since his last visit. Also, his blood sugar today is 325 and has been intermittently very elevated the past few weeks. Of note, his ulcer and diabetes is complicated by his being wheelchair bound due to a significant stroke and near 100% reliance upon caregivers at his assisted living facility. 10/06/17. Seen by Dr. Bragg. The patient continues to report feeling very fatigued but does not report specific symptoms otherwise nor acute issues regarding his right 5th toe diabetic ulcer. Of note, his blood sugar is over 400 today and he feels there was a lot of ' sugar' in his meal last night. 09/22/17. Seen by Dr. Bragg. The patient does not report pain nor significant drainage associated with chronic right fifth toe diabetic ulcer since his last visit. 09/15/17. Seen by Dr. Bragg. The patient reports feeling generally unwell and very fatigued over the past 3-4 days but does not report any other specific acute symptoms at this time. He does say that he has noticed some stinging pain associated with the chronic right 5th toe diabetic ulcer as well. 09/08/17. Seen by Dr. Bragg. The patient does not report pain nor significant drainage associated with chronic right fifth toe diabetic ulcer since his last visit. 09/01/17. Seen by Dr. Bragg. The patient does not report pain nor significant drainage associated with chronic right fifth toe diabetic ulcer since his last visit. 08/25/17. Seen by Dr. Bragg. The patient does not report pain nor significant drainage associated with chronic right fifth toe diabetic ulcer since his last visit. 08/19/17. Seen by Dr. Bragg. The patient reports some mild discomfort associated with chronic right fifth toe diabetic ulcer that is not report significant drainage however. He had his angioplasty over 2 weeks ago to address the severe related PAD and does not report any complications following the procedure. 08/12/17. Seen by Dr. Bragg. The patient underwent angioplasty for his right leg PAD Wednesday he states that his rest pain has not resolved. He is not on Plavix and reports some pain associated with the right fifth toe diabetic ulcer but no smoking drainage or other acute changes. 08/03/17. Seen by Dr. Bragg. The patient was seen by his vascular surgeon at [facility] and he is scheduled for intervention for his severe right leg PAD this . He reports some persistent pain associated with her right fifth toe diabetic ulcer as well and his wound culture grew MSSA for which he is applying topical gentamicin. He does not report increased drainage from the site and of note his condition is complicated considerably by history of paraplegia and a CVA with resultant right-sided hemiparesis. 07/27/17. Seen by Dr. Bragg. The patient reports some intermittent pain associated with chronic right fifth toe diabetic ulcer since last visit. He has not yet arranged an appointment with vascular surgery at [facility] to review the right leg PAD although he was referred last week. 07/20/17. Seen by Dr. Bragg. The patient does not report significant drainage associated with the chronic right fifth toe diabetic ulcer since his last visit. Of note, a referral was sent in mid June to review the right leg PAD however according to the patient this has not been followed through on. Of note, the patient's condition is complicated significantly by a history of paraplegia as well as CVA and he resides in assisted living. 07/13/17. Seen by Vinayak Maguire PA-C. The patient reports stable drainage from his right 5th toe ulcer. 07/08/17. Seen by Vinayak Maguire PA-C. The patient reports no increase in drainage from his right 5th toe ulcer. 06/28/17. Seen by Vinayak Maguire PA-C. The patient reports that his dressings are being changed at the SNF as instructed now. He reports decreased drainage from all of his ulcers. 06/22/17. Seen by Vinayak Maguire PA-C. The patient reports that his dressing on his right 5th toe was not changed by the SNF since his last visit and appears much worse. He also reports that he is not using diabetic shoes. He notes several blood sugars recorded above 150 this week. . Seen by Dr. Bragg. The patient reports intermittent pain associated with the chronic right fifth fourth and second toe diabetic ulcers since his last visit. He was to start taking doxycycline however this was not available at his assisted living facility. Of note, his arterial Doppler from 08/2016 revealed a high grade stenosis of the mid-right SFA and occlusion of the distal right SFA. Also, the patient resides in assisted living do to his right hemiplegia the resulted from a stroke many years ago. 06/04/17. Seen by Vinayak Maguire PA-C. The patient reports a new ulcer has formed on his right 2nd toe. It has been present for at least 2 days by his report. 05/26/17. Seen by Vinayak Maguire PA-C. The patient reports no increase in drainage from his diabetic ulcers of the 4th and 5th toes and reports minimal drainage from his heel ulcer. 05/19/17. Seen by Dr. Bragg. The patient does not report significant pain nor increased drainage associated with the right fourth and fifth toe diabetic ulcers nor the right heel diabetic ulcer since last visit. 05/12/17. Seen by Dr. Bragg. The patient does not report significant drainage associated with the right heel, fifth toe, or fourth toe diabetic ulcers since his last visit. His wound culture from the heel grew two coag-negative staph species and he has been applying topical gentamicin as recommended. 05/05/17. Seen by Dr. Bragg. The patient is new to our clinic and presents with a right heel plus right fourth and fifth toe diabetic ulcers. His ulcers are complicated by a history of stroke and right hemiplegia, poorly controlled diabetes, and history of smoking. He reports some mild pain associated with the ulcers but no significant drainage and is not currently on antibiotics. He does continue to smoke however. He also has an arterial ultrasound from last August showing high grade stenosis of the right SFA with reconstitution at the level of the popliteal artery. Of notes, his last A1c in April was 9.4. Past Medical History This information was obtained from the patient Patient has a medical history of: Type 1 Diabetes Ischemic Cardiomyopathy Hypertension Coronary Artery Disease (CAD) Peripheral Vascular Disease Renal Failure (Stage 3, stable.) Stroke (x3 in 1998) Gastro Esoph. Reflux Disease (GERD) Complaints and Symptoms This information was obtained from the patient Patient complains of: General Notes: I have reviewed and concur with the Review of Systems and Past Family Social History documents completed by the clinician, I have reviewed and concur with the Wound Assessment document completed by the clinician Cardiovascular (Central/Peripheral): Lower extremity (leg) swelling Constitutional Symptoms (General Health): Fatigue Integumentary (Hair/Skin/Nails): Open Sore Musculoskeletal: Assistive Devices, Muscle Weakness Prior Wound History: Drainage, Erythema, Pain Patient denies complaints or symptoms related to: Cardiovascular (Central): Irregular heart beat Cardiovascular (Central/Peripheral): Lower extremity (leg) resting pain Constitutional Symptoms (General Health): Chills, Fever Ear/Nose/Mouth/Throat: Hearing Loss / Aid Gastrointestinal (GI): Stomach/abdominal pain Hematologic/Lymphatic: Bleeding / Clotting Disorders, Bleeding Tendency Neurological: Loss of Protective Sensation Prior Wound History: Bleeding Psychiatric: Memory Loss Respiratory: Shortness of Breath OBJECTIVE Constitutional Vital signs reviewed and noted. Well developed. Alert. Clean appearing.. Height/ Length: 66 in (167.64 cm), Weight: 140.9 lbs (64.05 kgs), BMI: 22.7, Temperature: 98.4 ?F ( 36.89 ?C), Pulse: 87 bpm, Respiratory Rate: 18 breaths/min, Capillary Blood Glucose: 172 mg /dl, Pulse Oximetry: 100 %. Vital Signs Notes: Glucose per patient. Respiratory: No respiratory distress. Even respirations and without use of accessory muscles.. Cardiovascular: 2+ right lower extremity edema. Gastrointestinal (GI): Non-obese. Nondistended.. Integumentary (Hair, Skin) No periwound erythema, warmth, or significant drainage. No periwound rashes appreciated or noted otherwise.. Refer to appropriate clinician wound documentation for this visit; right 5th toe ulcer and 1st toe wound extend to subcut with bases partially covered with pink granulation, remainder fibrin and slough. Wound #3 Right Fifth Toe is a chronic [place] Grade 3 Diabetic Ulcer and has received a status of Not Healed. Subsequent wound encounter measurements are 0.1cm length x 0.2cm width x 0.2cm depth, with an area of 0.02 sq cm and a volume of 0.004 cubic cm. No tunneling has been noted. No sinus tract has been noted. No undermining has been noted. There is a scant amount of sero-sanguineous drainage noted which has no odor. The patient reports a wound pain of level 3/10. The wound margin is unable to assess. Wound bed has Yes epithelialization, No eschar, No slough, No granulation. The periwound skin exhibited: Edema, Moist, Maceration, Erythema. The periwound skin did not exhibit: Brawny Induration, Excoriation, Induration, Callus, Crepitus, Fluctuance, Friable, Rash, Dry/Scaly, Atrophie [place], Cyanosis, Ecchymosis, Hemosiderosis, Pallor, Rubor. The temperature of the periwound skin is Warm. Periwound skin does not exhibit signs or symptoms of infection. Local Pulse is Doppler. Wound #5 Right Great Toe is an acute Full Thickness Trauma Wound and has received a status of Not Healed. Subsequent wound encounter measurements are 0.2cm length x 0.5cm width x 0.1cm depth, with an area of 0.1 sq cm and a volume of 0.01 cubic cm. No tunneling has been noted. No sinus tract has been noted. No undermining has been noted. There is a small amount of sero-sanguineous drainage noted which has no odor. The patient reports a wound pain of level 0/10. The wound margin is attached. Wound bed has Yes epithelialization, No eschar, Yes slough, Yes pink, firm granulation. The periwound skin color is normal. The periwound skin exhibited: Edema, Moist, Maceration. The periwound skin did not exhibit: Brawny Induration, Excoriation, Induration, Callus, Crepitus, Fluctuance, Friable, Rash, Dry/Scaly. The temperature of the periwound skin is WNL. Periwound skin does not exhibit signs or symptoms of infection. Local Pulse is Doppler. Neurological: Cranial nerves grossly intact with symmetric function normal by informal observation.. ASSESSMENT Active Problems ICD-10 (Encounter Diagnosis) E11.621 - Type 2 diabetes mellitus with foot ulcer (Encounter Diagnosis) L97.512 - Non-pressure chronic ulcer of other part of right foot with fat layer exposed (Encounter Diagnosis) I70.238 - Atherosclerosis of [place] arteries of right leg with ulceration of other part of lower right leg (Encounter Diagnosis) S91.101D - Unspecified open wound of right great toe without damage to nail, subsequent encounter (Encounter Diagnosis) R60.0 - Localized edema PROCEDURES Wound #3 Wound #3 (Diabetic Ulcer) is located on the right fifth toe. A selective debridement with a total area debrided of 0.02 sq cm was performed by Niall Bragg MD. Callus was removed along with devitalized tissue: callus. The following instrument(s) were used: curette. Pain control was achieved using 4% Lido. A time out was conducted prior to the start of the procedure. No bleeding occurred. The procedure was tolerated well with a pain level of 0 throughout and a pain level of 0 following the procedure. Post Debridement Measurements: 0.1cm length x 0.2cm width x 0.2cm depth; with an area of 0.02 sq cm and a volume of 0.004 cubic cm; Wound #5 Wound #5 (Trauma Wound) is located on the right great toe. A selective debridement with a total area debrided of 0.1 sq cm was performed by Niall Bragg MD. callus was removed along with devitalized tissue: callus. The following instrument(s) were used: curette. Pain control was achieved using 4% Lido. A time out was conducted prior to the start of the procedure. No bleeding occurred. The procedure was tolerated well with a pain level of 0 throughout and a pain level of 0 following the procedure. Post Debridement Measurements: 0.2cm length x 0.5cm width x 0.1cm depth; with an area of 0.1 sq cm and a volume of 0.01 cubic cm; PLAN Wound Orders: Wound #3 Right Fifth Toe Anesthetic Topical Xylocaine to wound bed. - Lidocaine used in clinic. Cleanser Cleanse Wound: - Normal saline and gauze. Please wash wound with saline and gauze during each dressing change to wipe off any dried exudate adhered to wound bed. May scrub lightly with gauze. May Shower. - Please protect wounds from shower water, please use plastic bag and tape or cast protector. Dressings Cover and secure with: - Foam and hypafix tape. Change Dressing: - Every other day. Off-Loading Keep weight off: Compression/Edema Control Elevation of leg(s) above the level of the heart when sitting. Single Layer Compression Hose - Tetra to Right leg. On in am and off in PM. Follow-Up Appointments Return Appointment: - - two weeks Other information: If you develop fever, chills, increased pain, drainage, redness or swelling please call our office. If after hours, respond to the ER. Should you experience any significant changes in your wound(s) or have any questions regarding your home care instructions please contact the wound center @ [phone]. If after hours, contact your primary care physician or go to the hospital emergency room. Scribing Attestation I attest, as the nurse, that I scribed these orders for the physician. Wound #5 Right Great Toe Anesthetic Topical Xylocaine to wound bed. - Lidocaine used in clinic. Cleanser Cleanse Wound: - Normal saline and gauze. Please wash wound with saline and gauze during each dressing change to wipe off any dried exudate adhered to wound bed. May scrub lightly with gauze. May Shower. - Please protect wounds from shower water, please use plastic bag and tape or cast protector. Off-Loading Keep weight off: Compression/Edema Control Elevation of leg(s) above the level of the heart when sitting. Single Layer Compression Hose - Tetra to Right leg. On in am and off in PM. Follow-Up Appointments Return Appointment: - - two weeks Other information: If you develop fever, chills, increased pain, drainage, redness or swelling please call our office. If after hours, respond to the ER. Should you experience any significant changes in your wound(s) or have any questions regarding your home care instructions please contact the wound center @ [phone]. If after hours, contact your primary care physician or go to the hospital emergency room. Scribing Attestation I attest, as the nurse, that I scribed these orders for the physician. I've reviewed the clinician's documentation and agree with the evaluation and plan as written. In addition the patient's ulcers demonstrate evidence of non-viable devitalized tissue and they will continue to benefit from sharp debridement to help promote granulation and expedite healing. Also, we'll start compression therapy with a Tetra-hotel maintenance technician compression stocking to treat the right lower leg edema that's resulted following his PCI. Electronic Signature(s) Signed By: Date: Niall Bragg MD 12/17/2017 09:29:15 Entered By: Niall Bragg on 12/17/2017 09:00:29
== END ==
PROVIDERS: Family Provider Internal Medicine; PCP Internal Medicine; Visit Provider Internal Medicine
DX: E11.621 Type 2 diabetes mellitus with foot ulcer (principal); L97.512 Non-pressure chronic ulcer of other part of right foot with fat layer exposed; S91.101A Unspecified open wound of right great toe without damage to nail, initial encounter; I70.238 Atherosclerosis of native arteries of right leg with ulceration of other part of lower leg; R60.0 Localized edema
CPT/HCPCS: 97597

== ENCOUNTER → 2017-12-30 13:44 | Outpatient (CLI) | payer MEDICARE, MEDICAID, SELFPAY | PROVIDERS: Family Provider Internal Medicine; PCP Internal Medicine; Visit Provider Internal Medicine | DX: Z48.817 Encounter for surgical aftercare following surgery on the skin and subcutaneous tissue (principal); E11.9 Type 2 diabetes mellitus without complications | CPT/HCPCS: 99213 ==

== ENCOUNTER → 2018-01-04 07:45 | Outpatient (REF) | payer MEDICARE, MEDICAID, SELFPAY ==
[2018-01-04 08:18] LABS: Add Manual Diff / Slide Review NO; Basophils Percent Auto 0.7 % (0-2); Eosinophils Percent Auto 5.4 % (2-4); Hematocrit 37.3 % (41-53); Hemoglobin 12.7 g/dL (13.5-17.5); Lymphocytes Percent Auto 32.1 % (25-40); Mean Corpuscular HGB Conc 34.1 % (30-36); Mean Corpuscular Hemoglobin 30.4 PG (26-34); Mean Corpuscular Volume 89.2 fL (80-100); Monocytes Percent Auto 10.9 % (3-14); Neutrophils Absolute Auto 3800 /uL (3000-5900); Neutrophils Percent Auto 50.9 % (50-75); Platelet Count 283 X10^3/uL (150-400); Red Blood Cell Count 4.18 X10^6/uL (4.5-5.9); Red Cell Distribution Width 13.6 % (11.6-14.8); White Blood Cell Count 7.5 X10^3/uL (4.5-11.0)
[2018-01-04 08:25] LABS: BUN Creatinine Ratio 26.3 (6-22); Bilirubin Total 0.3 mg/dL (0.2-1.3); Blood Urea Nitrogen 21 mg/dL (9-20); Calcium 9.2 mg/dL (8.4-10.2); Carbon Dioxide 34 mmol/L (22-32); Chloride 104 mmol/L (98-107); Estimated Glomerular Filt Rate > 60.0 mL/min (>60); Glucose 131 mg/dL (80-110); HEMOLYSIS < 15 (0-50); Potassium 5.2 mmol/L (3.4-5.1); Sodium 144 mmol/L (137-145)
[2018-01-04 09:11] LABS: Hemoglobin A1C% w Est Avg Glu 7.6 % (4.0-6.0)
== END ==
LOC: LAB 07:45
PROVIDERS: Family Provider Internal Medicine; PCP Internal Medicine; Visit Provider Internal Medicine
DX: R73.09 Other abnormal glucose (principal); E10.9 Type 1 diabetes mellitus without complications; I50.9 Heart failure, unspecified; I25.10 Atherosclerotic heart disease of native coronary artery without angina pectoris; N18.3 Chronic kidney disease, stage 3 (moderate)
CPT/HCPCS: 36415; 80048; 82247; 83036; 85025

== ENCOUNTER → 2018-01-11 07:25 | Outpatient (REF) | payer MEDICARE, MEDICAID, SELFPAY ==
[2018-01-11 08:16] LABS: HEMOLYSIS < 15 (0-50); Potassium 4.3 mmol/L (3.4-5.1)
== END ==
LOC: LAB 07:25
PROVIDERS: Family Provider Internal Medicine; PCP Internal Medicine; Visit Provider Internal Medicine
DX: E78.2 Mixed hyperlipidemia (principal)
CPT/HCPCS: 36415; 84132

== ENCOUNTER 2018-03-05 19:03 | Inpatient (IN) | payer MEDICARE, MEDICAID, SELFPAY ==
[2018-03-05 19:06] VITALS: BP 165/67; PULSE 102; RESP 24; TEMP 38.8; O2SAT 98; BMI 23.3
--- NOTE | 2018-03-05 19:08 | DI.RAD.S_ITS ---
PROCEDURE: XR CHEST 1V INDICATIONS: Fever TECHNIQUE: One view of the chest was acquired. COMPARISON: [facility], , CHEST 1 VIEW, 05/17/2017, 20:07. FINDINGS: Surgical changes and devices: None. Lungs and pleura: No pleural effusions or pneumothorax. Lungs are clear. Mediastinum: Mediastinal contours appear normal. Heart size is normal. Bones and chest wall: Chronic right humerus fracture. Presumed chronic lower left rib fractures. IMPRESSION: No acute cardiopulmonary disease. Dictated by: Fidel Mcgrath M.D. on 03/05/2018 at 20:01 Approved by: Fidel Mcgrath M.D. on 03/05/2018 at 20:02
--- NOTE | 2018-03-05 19:12 | ED_ITS ---
HPI - Fever General Chief Complaint: Fever Stated Complaint: Fever, N/V Time Seen by Provider: 03/05/18 19:06 Source: patient and EMS Mode of arrival: EMS Limitations: no limitations History of Present Illness HPI Narrative: 62-year-old male sent over from [facility] after not feeling well for the past couple days. Was reported that he was a brittle diabetic stated that he has been having a fever. Reported that he did vomit once today. Upon arrival patient states just does not feel very good. Related Data Home Medications Medication Instructions Recorded Confirmed acetaminophen 325 mg PO Q4HP PRN #0 06/29/17 03/05/18 alum-mag hydroxide-simeth [Maalox 354 ml PO PRN PRN #0 06/29/17 03/05/18 Maximum Strength] aspirin 325 mg PO QDAY #0 06/29/17 03/05/18 atorvastatin 80 mg PO HS #0 06/29/17 03/05/18 bacitracin zinc 500 unit TOPICAL PRN #0 06/29/17 03/05/18 bisacodyl 10 mg VT PRN PRN #0 06/29/17 03/05/18 bisacodyl [Fleet Laxative] 5 mg PO PRN PRN #0 06/29/17 03/05/18 clonazepam 0.5 mg PO BID #0 06/29/17 03/05/18 clopidogrel 75 mg PO QDAY #0 06/29/17 03/05/18 duloxetine 60 mg PO QDAY #0 06/29/17 03/05/18 ferrous sulfate [Iron (ferrous 325 mg PO BID #0 06/29/17 03/05/18 sulfate)] levothyroxine 50 mcg PO QAM #0 06/29/17 03/05/18 metoprolol succinate [Toprol XL] 12.5 mg PO QDAY #0 06/29/17 03/05/18 morphine 30 mg PO Q4HP PRN #0 06/29/17 03/05/18 morphine [MS Contin] 60 mg PO BID #0 06/29/17 03/05/18 nicotine 7 mg TOPICAL QDAY #0 06/29/17 03/05/18 omeprazole 20 mg PO BID #0 06/29/17 03/05/18 oxycodone 10 mg PO Q4HP PRN #0 06/29/17 03/05/18 polyethylene glycol 3350 [Miralax] 17 gm PO QDAY #0 06/29/17 03/05/18 sennosides [senna] 2 tab PO QDAY #0 06/29/17 03/05/18 spironolactone 12.5 mg PO QDAY #0 06/29/17 03/05/18 B-complex with vitamin C capsule 1 cap PO DAILY 11/25/17 03/05/18 artificial tears (hypromellose) 1 % EYE-BOTH .q12 PRN ml 11/25/17 03/05/18 (PF) 0.3 % eye drops ascorbic acid (vitamin C) 500 mg 500 mg PO .qday cap 11/25/17 03/05/18 capsule baclofen 10 mg tablet 10 mg PO TID 11/25/17 03/05/18 cetirizine 10 mg tablet 10 mg PO DAILY 11/25/17 03/05/18 clonazepam 0.5 mg tablet 0.5 mg PO BID 11/25/17 03/05/18 ibuprofen 400 mg tablet 400 mg PO Q4-6H PRN 11/25/17 03/05/18 insulin aspart U-100 100 unit/mL 100 unit SUBCUT DAILY 11/25/17 03/05/18 subcutaneous pen lisinopril 2.5 mg tablet 2.5 mg PO DAILY 11/25/17 03/05/18 mirtazapine 15 mg tablet 15 mg PO DAILY 11/25/17 03/05/18 nystatin 100,000 unit/gram topical 1 applictn TOP BID 11/25/17 03/05/18 powder ammonium lactate [Lac-Hydrin Five] 1 applic TOPICAL BID 03/05/18 03/05/18 cholecalciferol (vitamin D3) 1,000 unit PO DAILY 03/05/18 03/05/18 docusate sodium 100 mg PO BID 03/05/18 03/05/18 magnesium hydroxide [Milk of 30 ml PO DAILY PRN 03/05/18 03/05/18 Magnesia] Allergies Allergy/AdvReac Type Severity Reaction Status Date / Time codeine [CODEINE] AdvReac Unknown nausea Verified 11/25/17 14:32 Review of Systems Constitutional Reports fatigue, Reports fever(s), Reports headache(s) and Reports malaise Eyes Denies blurry vision ENT Ears, Nose, Mouth, and Throat: Reports headache(s) Cardiovascular Denies chest pain and Denies dyspnea Respiratory Denies cough and Denies dyspnea Gastrointestinal Gastrointestinal: Denies abdominal pain, Reports nausea and Reports vomiting Genitourinary Denies dysuria Musculoskeletal Reports myalgias and Denies arthralgias Integumentary/Breasts Denies rash Neurologic Reports headache(s) Endocrine Reports fatigue PFSH Medical History CVA (cerebral vascular accident) (Acute) Diabetes (Acute) Gastroesophageal reflux disease (Acute) Hyperlipidemia (Acute) Hypertension (Acute) Surgical History No pertinent past surgical history (Acute) Social History Smoking Status: Current every day smoker alcohol intake: never substance use type: does not use Exam Initial Vital Signs Initial Vital Signs: Vital Signs Temperature 102 F H 03/05/18 19:06 Pulse Rate 102 H 03/05/18 19:06 Respiratory Rate 24 03/05/18 19:06 Blood Pressure 165/67 H 03/05/18 19:06 Pulse Oximetry 98 03/05/18 19:06 Const General: comfortable, well developed and well groomed Orientation: alert, awake and oriented x3 HENMT Head: normal to inspection and normocephalic Eyes Pupils: PERRL Resp Effort & Inspection: normal respiratory effort Auscultation: clear to auscultation bilaterally Cardio Rate: tachycardic Rhythm: regular rhythm Pulses: radial pulses present GI Inspection: non-distended Palpation: soft Skin Lesions: no lesions Rashes: no rashes Neuro General: alert, awake and oriented x3 Other: 5/5 strength left upper extremity, 3/5 strength right upper extremity. A 5/5 strength left lower extremity, 2/5 strength right lower extremity Extrem Other: no gross deformity Psych Appearance: grossly normal and well kempt Course Orders Ordered: ED Orders 03/05/18 19:08 XR chest 1V Stat 03/05/18 19:15 Influenza A and B by PCR Rapid Stat 03/05/18 19:25 Complete Blood Count AUTO DIFF Stat Comprehensive Metabolic Panel Stat Ketones (Beta-Hydroxybutyrate) Stat Lactate (Lactic Acid) Stat Lipase Stat Procalcitonin Stat 03/05/18 20:10 Urinalysis and Microscopic Stat Urine Culture Stat 03/05/18 20:32 CT abdomen pelvis w con Stat 03/05/18 21:28 Blood Culture Stat 03/05/18 21:46 Consult to Physician Routine Acetaminophen (Tylenol) 650 mg PO Q6HR PRN PRN Reason: As Needed for Fever/Mild Pain Sodium Chloride (Normal Saline 0.9%) 1,973.13 mls @ 657.71 mls/hr 30 ml/kg infuse over 3 hr (1973.13 ml) IV CONT EUGENE Last Infusion: 03/05/18 20:19 Dose: 400 mls/hr Admin: 03/05/18 19:53 Dose: 657.71 mls/hr Piperacillin/Tazobactam/Dextrose (Zosyn) 3.375 gm in 50 mls @ 100 mls/hr IV NOW ONE Stop: 03/05/18 22:02 Discontinued Medications Acetaminophen (Tylenol) 650 mg PO NOW ONE Stop: 03/05/18 19:44 Last Admin: 03/05/18 20:15 Dose: Acetaminophen (Tylenol) 650 mg VT NOW ONE Stop: 03/05/18 20:01 Last Admin: 03/05/18 20:01 Dose: 650 mg Sodium Chloride (Normal Saline 0.9%) 1,000 mls @ 1,000 mls/hr IV BOLUS ONE Stop: 03/05/18 20:05 Last Infusion: 03/05/18 20:21 Dose: 0 mls/hr Admin: 03/05/18 19:26 Dose: 1,000 mls/hr Levofloxacin (Levaquin) 750 mg in 150 mls @ 100 mls/hr IV NOW ONE Stop: 03/05/18 21:28 Last Admin: 03/05/18 20:19 Dose: 100 mls/hr Vital Signs - 8 hr 03/05/18 19:06 03/05/18 20:01 03/05/18 20:30 Temperature 102 F H 102 F H Pulse Rate 102 H 95 H Respiratory Rate 24 24 Blood Pressure 165/67 H Blood Pressure [Left Arm] 148/75 H Pulse Oximetry 98 03/05/18 21:10 Temperature 99.8 F H Pulse Rate Respiratory Rate Blood Pressure Blood Pressure [Left Arm] Pulse Oximetry MDM - Fever Lab Data Attestation: I reviewed the patient's lab results. Result diagrams: 03/05/18 19:25 03/05/18 19:25 Lab Results 03/05/18 03/05/18 03/05/18 Range/Units 19:15 19:25 19:25 WBC 24.6 H (4.5-11.0) X10^3/uL RBC 4.22 L (4.5-5.9) X10^6/uL Hgb 12.4 L (13.5-17.5) g/dL Hct 37.0 L (41-53) % MCV 87.8 (80-100) fL MCH 29.4 (26-34) PG MCHC 33.5 (30-36) % RDW 13.2 (11.6-14.8) % Plt Count 311 (150-400) X10^3/uL Neut % (Auto) 91.4 H (50-75) % Lymph % (Auto) 3.2 L (25-40) % [place] % (Auto) 5.0 (3-14) % Eos % (Auto) 0.1 L (2-4) % Baso % (Auto) 0.3 (0-2) % Neut # (Auto) 18879 H (5547-9007) /uL Sodium (137-145) mmol/L Potassium (3.4-5.1) mmol/L Chloride (98-107) mmol/L Carbon Dioxide (22-32) mmol/L BUN (9-20) mg/dL Creatinine (0.66-1.25) mg/dL Estimated GFR (>60) mL/min BUN/Creatinine Ratio (6-22) Glucose (80-110) mg/dL Lactate (0.7-2.1) mmol/L Calcium (8.4-10.2) mg/dL Total Bilirubin (0.2-1.3) mg/dL AST (17-59) IU/L ALT (21-72) IU/L Alkaline Phosphatase (38-126) U/L Total Protein (6.3-8.2) g/dL Albumin (3.5-5.0) g/dL Globulin (1.7-4.1) g/dL Albumin/Globulin Ratio (1.0-2.8) Lipase (23-300) U/L Procalcitonin 0.39 (<0.5) ng/mL Urine Color Urine Appearance Urine pH (4.5-8.0) Ur Specific [place] (1.000-1.035) Urine Protein (Negative) Urine Glucose (UA) (Normal) g/dL Urine Ketones (NEGATIVE) Urine Occult Blood (Negative) Urine Nitrate (Negative) Urine Bilirubin (NEGATIVE) Urine Urobilinogen (0.2) E.U./dL Ur Leukocyte Esterase (NEGATIVE) Urine RBC (0-5/HPF) Urine WBC (0-5/HPF) Ur Squamous Epith Cells Urine Bacteria (None) Ur Culture Indicated? Micro UA Comment Ketones (<0.27) mmol/L Influenza A & B (PCR) Negative (Negative) 03/05/18 03/05/18 03/05/18 Range/Units 19:25 19:25 19:25 WBC (4.5-11.0) X10^3/uL RBC (4.5-5.9) X10^6/uL Hgb (13.5-17.5) g/dL Hct (41-53) % MCV (80-100) fL MCH (26-34) PG MCHC (30-36) % RDW (11.6-14.8) % Plt Count (150-400) X10^3/uL Neut % (Auto) (50-75) % Lymph % (Auto) (25-40) % [place] % (Auto) (3-14) % Eos % (Auto) (2-4) % Baso % (Auto) (0-2) % Neut # (Auto) (6474-4624) /uL Sodium 141 (137-145) mmol/L Potassium 4.0 (3.4-5.1) mmol/L Chloride 102 (98-107) mmol/L Carbon Dioxide 29 (22-32) mmol/L BUN 20 (9-20) mg/dL Creatinine 0.70 (0.66-1.25) mg/dL Estimated GFR > 60.0 (>60) mL/min BUN/Creatinine Ratio 28.6 H (6-22) Glucose 127 H (80-110) mg/dL Lactate 0.9 (0.7-2.1) mmol/L Calcium 8.7 (8.4-10.2) mg/dL Total Bilirubin 0.5 (0.2-1.3) mg/dL AST 23 (17-59) IU/L ALT 36 (21-72) IU/L Alkaline Phosphatase 97 (38-126) U/L Total Protein 6.8 (6.3-8.2) g/dL Albumin 4.1 (3.5-5.0) g/dL Globulin 2.7 (1.7-4.1) g/dL Albumin/Globulin Ratio 1.5 (1.0-2.8) Lipase < 10 L (23-300) U/L Procalcitonin (<0.5) ng/mL Urine Color Urine Appearance Urine pH (4.5-8.0) Ur Specific [place] (1.000-1.035) Urine Protein (Negative) Urine Glucose (UA) (Normal) g/dL Urine Ketones (NEGATIVE) Urine Occult Blood (Negative) Urine Nitrate (Negative) Urine Bilirubin (NEGATIVE) Urine Urobilinogen (0.2) E.U./dL Ur Leukocyte Esterase (NEGATIVE) Urine RBC (0-5/HPF) Urine WBC (0-5/HPF) Ur Squamous Epith Cells Urine Bacteria (None) Ur Culture Indicated? Micro UA Comment Ketones 0.13 (<0.27) mmol/L Influenza A & B (PCR) (Negative) 03/05/18 Range/Units 20:10 WBC (4.5-11.0) X10^3/uL RBC (4.5-5.9) X10^6/uL Hgb (13.5-17.5) g/dL Hct (41-53) % MCV (80-100) fL MCH (26-34) PG MCHC (30-36) % RDW (11.6-14.8) % Plt Count (150-400) X10^3/uL Neut % (Auto) (50-75) % Lymph % (Auto) (25-40) % [place] % (Auto) (3-14) % Eos % (Auto) (2-4) % Baso % (Auto) (0-2) % Neut # (Auto) (7488-4239) /uL Sodium (137-145) mmol/L Potassium (3.4-5.1) mmol/L Chloride (98-107) mmol/L Carbon Dioxide (22-32) mmol/L BUN (9-20) mg/dL Creatinine (0.66-1.25) mg/dL Estimated GFR (>60) mL/min BUN/Creatinine Ratio (6-22) Glucose (80-110) mg/dL Lactate (0.7-2.1) mmol/L Calcium (8.4-10.2) mg/dL Total Bilirubin (0.2-1.3) mg/dL AST (17-59) IU/L ALT (21-72) IU/L Alkaline Phosphatase (38-126) U/L Total Protein (6.3-8.2) g/dL Albumin (3.5-5.0) g/dL Globulin (1.7-4.1) g/dL Albumin/Globulin Ratio (1.0-2.8) Lipase (23-300) U/L Procalcitonin (<0.5) ng/mL Urine Color Yellow Urine Appearance Clear Urine pH 8.5 H (4.5-8.0) Ur Specific [place] 1.015 (1.000-1.035) Urine Protein 1+ H (Negative) Urine Glucose (UA) Negative (Normal) g/dL Urine Ketones Negative (NEGATIVE) Urine Occult Blood Negative (Negative) Urine Nitrate Negative (Negative) Urine Bilirubin Negative (NEGATIVE) Urine Urobilinogen 0.2 (0.2) E.U./dL Ur Leukocyte Esterase Negative (NEGATIVE) Urine RBC 5-10/hpf H (0-5/HPF) Urine WBC 1-5/hpf (0-5/HPF) Ur Squamous Epith Cells 0-1 /hpf Urine Bacteria None seen (None) Ur Culture Indicated? Not Reportable Micro UA Comment Not Reportable Ketones (<0.27) mmol/L Influenza A & B (PCR) (Negative) Imaging Data Chest x-ray: Radiologist's impression: PROCEDURE: XR CHEST 1V INDICATIONS: Fever TECHNIQUE: One view of the chest was acquired. COMPARISON: [facility], CHEST 1 VIEW, 05/17/2017, 20:07. FINDINGS: Surgical changes and devices: None. Lungs and pleura: No pleural effusions or pneumothorax. Lungs are clear. Mediastinum: Mediastinal contours appear normal. Heart size is normal. Bones and chest wall: Chronic right humerus fracture. Presumed chronic lower left rib fractures. IMPRESSION: No acute cardiopulmonary disease. Dictated by: Fidel Mcgrath M.D. on 03/05/2018 at 20:01 Approved by: Fidel Mcgrath M.D. on 03/05/2018 at 20:02 CT scan - abdomen: Radiologist's impression: [address] [address] [address] Scan Report Signed Patient: Ray Foster [facility]#: [id number] : 6Acct:[id number] Age/Sex: 62 / MDate of Service: 03/05/18 Loc: ED Accession Number: [id number] Procedure: CT abdomen pelvis w con Ordering Provider: Taye Lund D.O. PROCEDURE: CT ABDOMEN PELVIS W CON INDICATIONS: ABD pain TECHNIQUE: After the administration of intravenous contrast, 5 mm thick sections acquired from the diaphragm to the symphysis. 5 mm coronal and sagittal reformats were acquired. For radiation dose reduction, the following was used: automated exposure control, adjustment of mA and/or kV according to patient size. COMPARISON: [facility], CR, CHEST 1 VIEW, 05/17/2017, 20:07. [facility], CT, PELVIS WITHOUT CONTRAST, 07/24/2017, 11:13. FINDINGS: Image quality: Excellent. ABDOMEN: Lung bases: Subsegmental scarring/atelectasis. Heart size is normal. Coronary artery calcifications. Solid organs: Liver is normal in size and enhancement. Gallbladder negative. Biliary system is non dilated. Pancreas enhances normally. Spleen is normal in size and enhancement. No adrenal nodules. Kidneys demonstrate normal size and enhancement, without hydronephrosis. Possible nonobstructive left renal calculus image 28 versus vascular calcification Peritoneum and bowel: Bowel loops demonstrate normal wall thickness and caliber. No free fluid or air. Appendix appears normal Nodes and vessels: No retroperitoneal or mesenteric adenopathy by size criteria. Aorta and inferior vena cava are normal in size. Miscellaneous: No ventral hernias. PELVIS: Genitourinary: Circumferential bladder wall thickening. Miscellaneous: Trace bilateral fat containing inguinal hernias.. Bones: Age indeterminate L1 compression fracture.. IMPRESSION: Normal appendix. Circumferential bladder wall thickening which could reflect acute cystitis. Please correlate clinically and with urinalysis data. Age indeterminate L1 compression fracture. No acute abnormality. Coronary artery disease. Dictated by: Fidel Mcgrath M.D. on 03/05/2018 at 21:15 MDM Narrative Medical decision making narrative: upon arrival patient was tachycardic, febrile and soaked with urine from mid abdomen to mid thighs. He was cleaned up here in the emergency department. Initially I was suspicious of a urinary and maybe less so a respiratory source of his infection so Levaquin was initiated. Cultures were obtained. Patient's urine came back fairly unremarkable. Lactate was unremarkable. He has never hypotensive. Procalcitonin only very slightly elevated. He did have a significantly elevated white blood cell count with a left shift. Flu was negative. Not in respiratory distress. I obtained a CT scan of his abdomen pelvis because he did have vague abdominal pain upon my initial evaluation. This showed no acute pathology. No signs of cellulitis on his skin. His headache improved with the Tylenol and fluids. I do have low suspicion for meningitis. Unsure as the exact etiology of his infection. I discussed the case with Dr. Mckeon with Internal Medicine. Will admit for further evaluation and treatment. Discharge Plan Departure Patient Disposition: Admitted As Inpatient Clinical Impression: Fever of unknown origin, Sepsis Admit Date/Time: 03/05/18 21:49 Admit Provider: Moris Mckeon
--- NOTE | 2018-03-05 19:16 | PC.NURSE ---
Pt arrived to ED brief soaked through and entire top 3rd of sweatpants soaked with urine. Pt had a pad under him that was also wet and had dried stool on it.
[2018-03-05] MEDS: SODIUM CHLORIDE 0.9% 1,000 ML 1000 ML IV (19:26)
[2018-03-05 19:34] LABS: Add Manual Diff / Slide Review NO; Basophils Percent Auto 0.3 % (0-2); Eosinophils Percent Auto 0.1 % (2-4); Hemoglobin 12.4 g/dL (13.5-17.5); Lymphocytes Percent Auto 3.2 % (25-40); Mean Corpuscular HGB Conc 33.5 % (30-36); Mean Corpuscular Hemoglobin 29.4 PG (26-34); Mean Corpuscular Volume 87.8 fL (80-100); Neutrophils Absolute Auto 22500 /uL (3000-5900); Neutrophils Percent Auto 91.4 % (50-75); Platelet Count 311 X10^3/uL (150-400); Red Blood Cell Count 4.22 X10^6/uL (4.5-5.9); Red Cell Distribution Width 13.2 % (11.6-14.8); White Blood Cell Count 24.6 X10^3/uL (4.5-11.0)
[2018-03-05 19:37] LABS: Influenza A and B by PCR Rapid Negative (Negative)
[2018-03-05 19:45] LABS: Alanine Aminotransferase 36 IU/L (21-72); Albumin 4.1 g/dL (3.5-5.0); Albumin Globulin Ratio 1.5 (1.0-2.8); Alkaline Phosphatase 97 U/L (38-126); Aspartate Aminotransferase 23 IU/L (17-59); BUN Creatinine Ratio 28.6 (6-22); Bilirubin Total 0.5 mg/dL (0.2-1.3); Blood Urea Nitrogen 20 mg/dL (9-20); Calcium 8.7 mg/dL (8.4-10.2); Carbon Dioxide 29 mmol/L (22-32); Chloride 102 mmol/L (98-107); Estimated Glomerular Filt Rate > 60.0 mL/min (>60); Globulin 2.7 g/dL (1.7-4.1); Glucose 127 mg/dL (80-110); HEMOLYSIS < 15 (0-50); Sodium 141 mmol/L (137-145); Total Protein 6.8 g/dL (6.3-8.2)
[2018-03-05 19:47] LABS: Lactate (Lactic Acid) 0.9 mmol/L (0.7-2.1)
[2018-03-05 19:53] LABS: Lipase < 10 U/L (23-300)
[2018-03-05] MEDS: SODIUM CHLORIDE 0.9% 1,973.13 ML 657.71 ML IV (19:53)
[2018-03-05 20:01] VITALS: TEMP 38.8
[2018-03-05] MEDS: ACETAMINOPHEN 650 MG SUPP PR (20:01)
[2018-03-05 20:05] LABS: Ketones (Beta-Hydroxybutyrate) 0.13 mmol/L (<0.27)
[2018-03-05 20:12] LABS: Procalcitonin 0.39 ng/mL (<0.5)
[2018-03-05 20:15] LABS: Bacteria Urine None Seen
[2018-03-05 20:16] LABS: Appearance Urine UA CLEAR; Bilirubin Urine UA NEGATIVE (NEGATIVE); Color Urine UA YELLOW; Glucose Urine UA NEGATIVE (Normal); Ketones Urine UA NEGATIVE (NEGATIVE); Leukocyte Esterase Urine UA NEGATIVE (NEGATIVE); Nitrite Urine UA NEGATIVE (Negative); Occult Blood Urine UA NEGATIVE (Negative); Protein Urine UA 1+ (Negative); Specific Gravity Urine UA 1.015 (1.000-1.035); Urobilinogen Urine UA 0.2 E.U./dL (0.2); pH Urine UA 8.5 (4.5-8.0)
[2018-03-05] MEDS: levoFLOXacin 750 MG/150 ML PIGGYBACK 100 MG IV (20:19)
[2018-03-05 20:28] LABS: RBC Urine 5-10/HPF (0-5/HPF); Squamous Epithelial Cell Urine 0-1 /HPF; WBC Urine 1-5/HPF (0-5/HPF)
[2018-03-05 20:30] VITALS: BP 148/75; PULSE 95; RESP 24
--- NOTE | 2018-03-05 20:32 | DI.CT.S_ITS ---
PROCEDURE: CT ABDOMEN PELVIS W CON INDICATIONS: ABD pain TECHNIQUE: After the administration of intravenous contrast, 5 mm thick sections acquired from the diaphragm to the symphysis. 5 mm coronal and sagittal reformats were acquired. For radiation dose reduction, the following was used: automated exposure control, adjustment of mA and/or kV according to patient size. COMPARISON: [facility], CR, CHEST 1 VIEW, 05/17/2017, 20:07. [facility], CT, PELVIS WITHOUT CONTRAST, 07/24/2017, 11:13. FINDINGS: Image quality: Excellent. ABDOMEN: Lung bases: Subsegmental scarring/atelectasis. Heart size is normal. Coronary artery calcifications. Solid organs: Liver is normal in size and enhancement. Gallbladder negative. Biliary system is non dilated. Pancreas enhances normally. Spleen is normal in size and enhancement. No adrenal nodules. Kidneys demonstrate normal size and enhancement, without hydronephrosis. Possible nonobstructive left renal calculus image 28 versus vascular calcification Peritoneum and bowel: Bowel loops demonstrate normal wall thickness and caliber. No free fluid or air. Appendix appears normal Nodes and vessels: No retroperitoneal or mesenteric adenopathy by size criteria. Aorta and inferior vena cava are normal in size. Miscellaneous: No ventral hernias. PELVIS: Genitourinary: Circumferential bladder wall thickening. Miscellaneous: Trace bilateral fat containing inguinal hernias.. Bones: Age indeterminate L1 compression fracture.. IMPRESSION: Normal appendix. Circumferential bladder wall thickening which could reflect acute cystitis. Please correlate clinically and with urinalysis data. Age indeterminate L1 compression fracture. No acute abnormality. Coronary artery disease. Dictated by: Fidel Mcgrath M.D. on 03/05/2018 at 21:15 Approved by: Fidel Mcgrath M.D. on 03/05/2018 at 21:22
[2018-03-05 21:10] VITALS: TEMP 37.7
[2018-03-05 22:05] VITALS: BP 137/62; PULSE 96; RESP 24; O2SAT 98
[2018-03-05] MEDS: PIPERACILLIN-TAZO 3.375 GM/50 ML FROZ.PIGGY IV (22:26)
[2018-03-05 22:44] VITALS: BMI 23.3
--- NOTE | 2018-03-05 22:51 | PC.NURSE ---
ADMISSION Received pt at approximately 2235 via [employer], accompanied by ED STOCK FITTER. forgetful of date. slightly slow to respond with speech very slightly slurred (pt with history of CVA). pt with RUE and RLE weakness. RLE with wounds and edematous. telemetry monitoring intact. IVF and antibiotics running to R AC IV. oriented pt to room and call light.
[2018-03-06] VITALS (15 sets, daily range): BP systolic 120–142; BP diastolic 61–76; PULSE 83–95; RESP 14–18; TEMP 36.7–37.9; O2SAT 94–99
[2018-03-06] MEDS: SODIUM CHLORIDE 0.9% 1,000 ML 100 ML IV ×3 (01:47→18:23)
[2018-03-06] MEDS: PIPERACILLIN-TAZO 3.375 GM/50 ML FROZ.PIGGY IV (04:16)
[2018-03-06] MEDS: BACLOFEN 10 MG TABLET PO ×4 (04:33→20:31)
[2018-03-06] MEDS: DOCUSATE 100 MG CAPSULE 200 MG PO ×2 (07:23→20:31)
[2018-03-06] MEDS: OXYCODONE IR 5 MG TABLET 30 MG PO (07:23)
[2018-03-06] MEDS: clonazePAM 0.5 MG TABLET PO (07:23)
[2018-03-06] MEDS: MORPHINE ER 30 MG TABLET PO ×2 (08:41→20:36)
--- NOTE | 2018-03-06 10:13 | P.HP_ITS ---
History of Present Illness Date Patient Seen: 03/06/18 Time Patient Seen: 09:00 Chief complaint: Fever, N/V Narrative: 62 yo man who was brought from [facility] to ER last night for fever and not feeling well. He was found to have fever of 101 and tachycardiac with heart rate of 102. His white blood cell count was also elevated, around 24,000. UA was unremarkable. CXR did not show infiltrates. Abdominal CT did not reveal source of intra-abdominal infection. He reveived IV levoquin, Zosyn, and iv fluid and was admitted to the medicine floor. Patient is feeling better today. He is complaining of chronic neck and shoulder pain. Patient History Medical History C3 spinal cord injury (Acute) C4 spinal cord injury (Acute) CVA (cerebral vascular accident) (Acute) Diabetes (Acute) Gastroesophageal reflux disease (Acute) Hyperlipidemia (Acute) Hypertension (Acute) Surgical History No pertinent past surgical history (Acute) Family & Social History Social History: Prior Living Arrangements Assisted Living Safety & Behavioral: Feels Safe in Current Yes Environment Been Physically Hurt or No Threatened By a Person Suicidal Ideation Description None Suicide Plan Description No Plan Tobacco & Substance use: Smoking Status Current every day smoker Smoking packs per day 1 alcohol intake never Substance Use Type does not use Meds Home Medications Medication Instructions Recorded Confirmed Type acetaminophen 325 mg PO Q4HP PRN #0 06/29/17 03/05/18 History alum-mag hydroxide-simeth [Maalox 354 ml PO PRN PRN #0 06/29/17 03/05/18 History Maximum Strength] aspirin 325 mg PO QDAY #0 06/29/17 03/05/18 History atorvastatin 80 mg PO HS #0 06/29/17 03/05/18 History bacitracin zinc 500 unit TOPICAL PRN #0 06/29/17 03/05/18 History bisacodyl 10 mg GA PRN PRN #0 06/29/17 03/05/18 History bisacodyl [Fleet Laxative] 5 mg PO PRN PRN #0 06/29/17 03/05/18 History clonazepam 0.5 mg PO BID #0 06/29/17 03/05/18 History clopidogrel 75 mg PO QDAY #0 06/29/17 03/05/18 History duloxetine 60 mg PO QDAY #0 06/29/17 03/05/18 History ferrous sulfate [Iron (ferrous 325 mg PO BID #0 06/29/17 03/05/18 History sulfate)] levothyroxine 50 mcg PO QAM #0 06/29/17 03/05/18 History metoprolol succinate [Toprol XL] 12.5 mg PO QDAY #0 06/29/17 03/05/18 History morphine 30 mg PO Q4HP PRN #0 06/29/17 03/05/18 History morphine [MS Contin] 60 mg PO BID #0 06/29/17 03/05/18 History nicotine 7 mg TOPICAL QDAY #0 06/29/17 03/05/18 History omeprazole 20 mg PO BID #0 06/29/17 03/05/18 History oxycodone 10 mg PO Q4HP PRN #0 06/29/17 03/05/18 History polyethylene glycol 3350 [Miralax] 17 gm PO QDAY #0 06/29/17 03/05/18 History sennosides [senna] 2 tab PO QDAY #0 06/29/17 03/05/18 History spironolactone 12.5 mg PO QDAY #0 06/29/17 03/05/18 History B-complex with vitamin C capsule 1 cap PO DAILY 11/25/17 03/05/18 History artificial tears (hypromellose) 1 % EYE-BOTH .q12 PRN ml 11/25/17 03/05/18 History (PF) 0.3 % eye drops ascorbic acid (vitamin C) 500 mg 500 mg PO .qday cap 11/25/17 03/05/18 History capsule baclofen 10 mg tablet 10 mg PO TID 11/25/17 03/05/18 History cetirizine 10 mg tablet 10 mg PO DAILY 11/25/17 03/05/18 History clonazepam 0.5 mg tablet 0.5 mg PO BID 11/25/17 03/05/18 History ibuprofen 400 mg tablet 400 mg PO Q4-6H PRN 11/25/17 03/05/18 History insulin aspart U-100 100 unit/mL 100 unit SUBCUT DAILY 11/25/17 03/05/18 History subcutaneous pen lisinopril 2.5 mg tablet 2.5 mg PO DAILY 11/25/17 03/05/18 History mirtazapine 15 mg tablet 15 mg PO DAILY 11/25/17 03/05/18 History nystatin 100,000 unit/gram topical 1 applictn TOP BID 11/25/17 03/05/18 History powder ammonium lactate [Lac-Hydrin Five] 1 applic TOPICAL BID 03/05/18 03/05/18 History cholecalciferol (vitamin D3) 1,000 unit PO DAILY 03/05/18 03/05/18 History docusate sodium 100 mg PO BID 03/05/18 03/05/18 History magnesium hydroxide [Milk of 30 ml PO DAILY PRN 03/05/18 03/05/18 History Magnesia] Allergies Allergy/AdvReac Type Severity Reaction Status Date / Time codeine [CODEINE] AdvReac Unknown nausea Verified 11/25/17 14:32 Review of Systems Review of Systems All systems reviewed & are unremarkable except as noted in HPI and below Exam Vital Signs (past 8 hours): - 03/06/18 02:00 03/06/18 03:00 03/06/18 06:52 Temperature 100.3 F H 99.9 F H 98.0 F Pulse Rate 92 H 85 Respiratory Rate 16 16 Blood Pressure 132/61 Pulse Oximetry 96 99 03/06/18 08:00 03/06/18 08:36 03/06/18 08:59 Temperature 98.3 F Pulse Rate 85 Respiratory Rate 18 Blood Pressure 132/73 Pulse Oximetry 99 98 97 Oxygen Delivery Method Room Air Oxygen Flow Rate 0 Narrative Exam Narrative: Gen: middle aged man in NAD lungs: CTA bilaterally heart: RRR, no acute distress Abd: S, NT Ext: 1+ pitting edema on bilatearl ankles. right lower leg has mild erythema and warm to touch on the medial aspect of the right lower leg. Open wounds over right knee, right lower leg, and left lower leg. The wound over the right knee has some extra days and mild erythema. Neuro: Alert and oriented Objective Labs Result Diagrams: 03/05/18 19:25 03/05/18 19:25 Labs: Laboratory Results - last 24 hr 03/05/18 03/05/18 03/05/18 19:15 19:25 19:25 WBC 24.6 H RBC 4.22 L Hgb 12.4 L Hct 37.0 L MCV 87.8 MCH 29.4 MCHC 33.5 RDW 13.2 Plt Count 311 Neut % (Auto) 91.4 H Lymph % (Auto) 3.2 L [place] % (Auto) 5.0 Eos % (Auto) 0.1 L Baso % (Auto) 0.3 Neut # (Auto) 47567 H Sodium Potassium Chloride Carbon Dioxide BUN Creatinine Estimated GFR BUN/Creatinine Ratio Glucose Lactate Calcium Total Bilirubin AST ALT Alkaline Phosphatase Total Protein Albumin Globulin Albumin/Globulin Ratio Lipase Procalcitonin 0.39 Urine Color Urine Appearance Urine pH Ur Specific [place] Urine Protein Urine Glucose (UA) Urine Ketones Urine Occult Blood Urine Nitrate Urine Bilirubin Urine Urobilinogen Ur Leukocyte Esterase Urine RBC Urine WBC Ur Squamous Epith Cells Urine Bacteria Ur Culture Indicated? Micro UA Comment Ketones Influenza A & B (PCR) Negative 03/05/18 03/05/18 03/05/18 19:25 19:25 19:25 WBC RBC Hgb Hct MCV MCH MCHC RDW Plt Count Neut % (Auto) Lymph % (Auto) [place] % (Auto) Eos % (Auto) Baso % (Auto) Neut # (Auto) Sodium 141 Potassium 4.0 Chloride 102 Carbon Dioxide 29 BUN 20 Creatinine 0.70 Estimated GFR > 60.0 BUN/Creatinine Ratio 28.6 H Glucose 127 H Lactate 0.9 Calcium 8.7 Total Bilirubin 0.5 AST 23 ALT 36 Alkaline Phosphatase 97 Total Protein 6.8 Albumin 4.1 Globulin 2.7 Albumin/Globulin Ratio 1.5 Lipase < 10 L Procalcitonin Urine Color Urine Appearance Urine pH Ur Specific [place] Urine Protein Urine Glucose (UA) Urine Ketones Urine Occult Blood Urine Nitrate Urine Bilirubin Urine Urobilinogen Ur Leukocyte Esterase Urine RBC Urine WBC Ur Squamous Epith Cells Urine Bacteria Ur Culture Indicated? Micro UA Comment Ketones 0.13 Influenza A & B (PCR) 03/05/18 20:10 WBC RBC Hgb Hct MCV MCH MCHC RDW Plt Count Neut % (Auto) Lymph % (Auto) [place] % (Auto) Eos % (Auto) Baso % (Auto) Neut # (Auto) Sodium Potassium Chloride Carbon Dioxide BUN Creatinine Estimated GFR BUN/Creatinine Ratio Glucose Lactate Calcium Total Bilirubin AST ALT Alkaline Phosphatase Total Protein Albumin Globulin Albumin/Globulin Ratio Lipase Procalcitonin Urine Color Yellow Urine Appearance Clear Urine pH 8.5 H Ur Specific [place] 1.015 Urine Protein 1+ H Urine Glucose (UA) Negative Urine Ketones Negative Urine Occult Blood Negative Urine Nitrate Negative Urine Bilirubin Negative Urine Urobilinogen 0.2 Ur Leukocyte Esterase Negative Urine RBC 5-10/hpf H Urine WBC 1-5/hpf Ur Squamous Epith Cells 0-1 /hpf Urine Bacteria None seen Ur Culture Indicated? Not Reportable Micro UA Comment Not Reportable Ketones Influenza A & B (PCR) Assessment & Plan Plan: Assessment/Plan Narrative: 1. Sepsis: Patient had fever of 102, tachycardia with heart rate of 102, leukocytosis with white blood cell count of greater than 24,000. The source of infection is not quite clear. He does have signs of right lower leg cellulitis. He has several open wounds on the right knee, right lower leg, and the left lower leg. The wound over the right knee has some extudates. We will follow the blood culture result. We will continue IV Levaquin. I will at also add vancomycin to cover possible MRSA infection. 2. Cellulitis in the right lower leg: As stated earlier he is currently on empiric IV antibiotics coverage. 3. Type 1 diabetes: Continue Lantus insulin 15 units in the morning and 10 units in the evening. Start NovoLog insulin per sliding scale. He was doing carb counting at the assisted living facility for NovoLog insulin use. Continue monitor his fingerstick glucose readings 4. Hypertension: He is on low-dose lisinopril and metoprolol as outpatient. We will continue those medications per outpatient dosing. 5. Hyperlipidemia: Continue atorvastatin 80 mg once a day. 6. Code status: Full code. Code status was discussed with the patient himself. He does not want to be on ventilator for prolonged period of time. Quality VTE Deep Vein Thrombosis/Pulmonary Embolism Present on Admission: No
[2018-03-06] MEDS: VANCOMYCIN 1,250 MG in SODIUM CHLORIDE 0.9% 250 ML IV ×2 (12:06→22:10)
[2018-03-06] MEDS: OXYCODONE IR 10 MG TABLET 30 MG PO ×3 (12:10→22:09)
[2018-03-06] MEDS: LEVOTHYROXINE 50 MCG TABLET PO (12:11)
[2018-03-06] MEDS: METOPROLOL ER 25 MG TABLET 12.5 MG PO (12:11)
[2018-03-06] MEDS: NICOTINE 7 MG PATCH TOP (12:12)
[2018-03-06] MEDS: POLYETHYLENE GLYCOL 3350 17 GM POWD.PACK PO (12:14)
[2018-03-06] MEDS: SPIRONOLACTONE 25 MG TABLET 12.5 MG PO (12:15)
[2018-03-06] MEDS: CLOPIDOGREL 75 MG TABLET PO (12:15)
[2018-03-06] MEDS: ASCORBIC ACID 500 MG TABLET PO (12:16)
[2018-03-06] MEDS: DULOXETINE 30 MG CAPSULE 90 MG PO (12:17)
[2018-03-06] MEDS: LISINOPRIL 5 MG TABLET 2.5 MG PO (12:18)
[2018-03-06] MEDS: INSULIN GLARGINE 100 UNIT/ML 3ML PEN 15 UNIT SUBCUT (12:20)
[2018-03-06] MEDS: INSULIN ASPART 100 UNIT/ML INSULN PEN SUBCUT ×3 (12:22→20:40)
--- NOTE | 2018-03-06 14:36 | CM.DANOTE ---
DCP/Assessment: Reviewed chart. Patient is a 62yr old male admitted to [facility] from [facility] with probable sepsis. PCP is Dr. Denise. Primary payor is 1)Medicare 2)Medicaid. Patient long-term resident at [facility]. Met with patient explained CM/SW role. Patient reports that he is w/c bound at baseline. Patient moved into [facility] approximately 1 year ago in April. Patient plans to return when medically stable. Patient denies any d/c planning needs but would like to request that when he is discharged that [facility] pick him up with his electric w/c. Notified patient that PC INSTALLATION ENGINEER unclear on whether or not they could but would check when discharge approaches. Patient appreciative. P: Anticipate return to [facility] when medically stable. CM team to call [facility] on Wednesday03-07-18 to check on whether or not they can pick him up when he is medically stable or if they need to do bedside assessment prior to his return. ALEC Vee Discharge Planning/Care Management CM Discharge Assessment Start: 03/06/18 14:30 Freq: Status: Active Protocol: Document 03/06/18 14:30 KJS (Rec: 03/06/18 14:35 [id number]) Discharge Planning Assessment Assigned Black Oxide Operator ALEC Vee DPOA/Assigned Designee Name Cornel Foster (brother) Advance Directives? Yes: See residence notes from [facility] located in plastic folder on floor. Advance Directives on File No History Provided By Patient Has Patient been admitted in last 30 No days? Prior Living Arrangements Assisted Living Household Members caregiver Type of transporation used prior to Relies on Others admit Facility Name Admitted From: [facility] Willing to Return to Facility? Yes Independent with ADL's No Is patient alert and oriented? Yes Needs Assistance With Meal Prep Managing Medications Home Chores / Shopping Caregiver for Another No DME Already Rented / Owned Wheelchair Comment Patient has electric w/c at residence. Barriers to Discharge No Discharge Plan Assisted Living Facility Transportation Arrangement Patient requesting to be picked up by [facility] with his electric w/c. Additional Comment Pending Whiteboard Updated in Patient Room with Yes name and ext. # of Black Oxide Operator Review Status In Process Please Provide Date Initial DC 03/06/18 Assessment Was Performed Next Review Type Continued Stay Review
--- NOTE | 2018-03-06 15:54 | PC.NURSE ---
DAy Shift- Pt A&OX4, good historian regarding medical history. Forgetful at times to use call light to have brief changed. IVF infusing well to right AC PIV. Pt repositioned in bed supported with pillows. OOB to BSC this after noon with 1PA pivot transfer using walker. Pt had large pellet formed long BM. Pt compliant with care provided today. During lunch insulin time, pt stated for his BG of 276, 3 units of Novolog would not be enough and that he carb counts. For a BG of 276 he would normally give himself [address] Rubin and informed her of the Novolog dosing at [facility] was based on carb count choices by the pt. New order placed.
[2018-03-06] MEDS: LORATADINE 10 MG TABLET PO (16:01)
[2018-03-06] MEDS: levoFLOXacin 750 MG/150 ML PIGGYBACK 100 MG IV (19:25)
[2018-03-06] MEDS: BACITRACIN 28 GM OINT 1 APPLIC TOP (19:27)
[2018-03-06] MEDS: ATORVASTATIN 20 MG TABLET 80 MG PO (20:30)
[2018-03-06] MEDS: FERROUS SULFATE 325 MG TABLET PO (20:31)
[2018-03-06] MEDS: SENNOSIDES 8.6 MG TABLET 17.2 MG PO (20:32)
[2018-03-06] MEDS: PANTOPRAZOLE 40 MG TABLET PO (20:32)
[2018-03-06] MEDS: INSULIN GLARGINE 100 UNIT/ML 3ML PEN 10 UNIT SUBCUT (20:39)
[2018-03-06 22:34] LABS: Enterococcus species Not Detected (Not Detect); Listeria monocytogenes Not Detected (Not Detect); Methicillin-resistant gene Detected (Not Detect)
[2018-03-06 22:35] LABS: Acinetobacter baumannii Not Detected (Not Detect); Candida albicans Not Detected (Not Detect); Candida glabrata Not Detected (Not Detect); Candida krusei Not Detected (Not Detect); Candida parapsilosis Not Detected (Not Detect); Candida tropicalis Not Detected (Not Detect); E. coli Not Detected (Not Detect); Enterobacter cloacae complex Not Detected (Not Detect); Enterobacteriaceae species Not Detected (Not Detect); Haemophilus influenzae Not Detected (Not Detect); KPC (carbapenem-resist gene) Not Detected (Not Detect); Neisseria meningitidis Not Detected (Not Detect); Proteus species Not Detected (Not Detect); Pseudomonas aeruginosa Not Detected (Not Detect); Serratia marcescens Not Detected (Not Detect); Staphylococcus species Detected (Not Detect); Streptococcus agalactiae (Gr B Not Detected (Not Detect); Streptococcus pneumonia Not Detected (Not Detect); Streptococcus pyogenes (Gr A) Not Detected (Not Detect); Streptococcus species Not Detected (Not Detect)
--- NOTE | 2018-03-06 22:42 | PC.NURSE ---
SHIFT NOTE Ox3, speech slightly slurred and delayed. RUE and RLE weakness. RLE with 2+ edema. wound care done to BLE. pt c/o 11/09 pain to neck and back. tele monitoring maintained. call light within reach. Received call from lab at approximately 2240. 1 of 2 bottles of blood culture taken has gram positive cocci, Staph species, with methicilin resistant gene. sensitivity to follow. pt placed on contact isolation. will continue to monitor.
[2018-03-07] VITALS (10 sets, daily range): BP systolic 125–164; BP diastolic 63–86; PULSE 78–84; RESP 16–20; TEMP 36.7–37.4; O2SAT 95–100
--- NOTE | 2018-03-07 | DI.MRI.S_ITS ---
PROCEDURE: MR CERVICAL SPINE WO/W CON INDICATIONS: Neck pain with decreased range of motion TECHNIQUE: Noncontrast sagittal T1 spin echo and T2 fast spin echo, sagittal STIR, foraminal oblique sagittal T2 fast spin echo, axial gradient echo or T2 fast spin echo through the cervical spine. After the administration of contrast, axial and sagittal T1 spin echo with fat saturation through the cervical spine. COMPARISON: None. FINDINGS: Image quality: Excellent. 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 Partial osseous fusion of the C3-C4 vertebral bodies. There is loss of the normal cervical lordosis and focal kyphosis centered at C4. Moderate C5-C6 disc degeneration and height loss. Marrow: Marrow is normal in overall signal, without suspicious enhancement. Spinal cord: Visualized spinal cord has normal size and signal. No cerebellar tonsillar herniation. No abnormal intramedullary enhancement. Paraspinous soft tissues: No paravertebral masses or suspicious enhancement. C2-3: Normal appearance. C3-4: Mild canal narrowing. Bilateral facet arthropathy. Moderate right and [id number] left foraminal stenosis. C4-5: No definite canal stenosis. Severe bilateral foraminal stenoses. C5-6: Minimal canal narrowing. Severe bilateral foraminal stenoses. C6-7: Minimal canal narrowing. Mild left foraminal stenosis. Moderate-severe right foraminal narrowing.. C7-T1: No definite canal stenosis. Kvyw-tv-ayacajuc right foraminal narrowing. Mild left foraminal stenosis. IMPRESSION: No specific evidence of discitis-osteomyelitis identified. No suspicious enhancement. Multilevel degenerative changes and focal kyphosis centered at C4. Severe bilateral foraminal stenoses at multiple spinal levels as detailed above. 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 Partial osseous fusion of C3 and C4 vertebral bodies. Dictated by: Fidel Mcgrath M.D. on 03/07/2018 at 15:46 Approved by: Fidel Mcgrath M.D. on 03/07/2018 at 15:54
[2018-03-07 05:31] LABS: Add Manual Diff / Slide Review NO; Basophils Percent Auto 0.2 % (0-2); Eosinophils Percent Auto 1.3 % (2-4); Hematocrit 28.8 % (41-53); Hemoglobin 9.9 g/dL (13.5-17.5); Lymphocytes Percent Auto 11.7 % (25-40); Mean Corpuscular HGB Conc 34.5 % (30-36); Mean Corpuscular Hemoglobin 30.5 PG (26-34); Mean Corpuscular Volume 88.4 fL (80-100); Neutrophils Absolute Auto 10000 /uL (3000-5900); Neutrophils Percent Auto 77.8 % (50-75); Platelet Count 219 X10^3/uL (150-400); Red Blood Cell Count 3.25 X10^6/uL (4.5-5.9); White Blood Cell Count 12.8 X10^3/uL (4.5-11.0)
[2018-03-07 05:39] LABS: BUN Creatinine Ratio 23.3 (6-22); Blood Urea Nitrogen 14 mg/dL (9-20); Calcium 8.1 mg/dL (8.4-10.2); Carbon Dioxide 26 mmol/L (22-32); Chloride 103 mmol/L (98-107); Estimated Glomerular Filt Rate > 60.0 mL/min (>60); Glucose 74 mg/dL (80-110); HEMOLYSIS < 15 (0-50); Potassium 3.6 mmol/L (3.4-5.1); Sodium 137 mmol/L (137-145)
[2018-03-07] MEDS: PANTOPRAZOLE 40 MG TABLET PO ×2 (06:03→21:07)
[2018-03-07] MEDS: LEVOTHYROXINE 50 MCG TABLET PO (06:03)
[2018-03-07] MEDS: SODIUM CHLORIDE 0.9% 1,000 ML 100 ML IV (07:13)
[2018-03-07] MEDS: MORPHINE ER 30 MG TABLET PO ×2 (09:08→21:10)
[2018-03-07] MEDS: NICOTINE 7 MG PATCH TOP (09:08)
[2018-03-07] MEDS: OXYCODONE IR 10 MG TABLET 30 MG PO ×2 (09:10→23:55)
[2018-03-07] MEDS: METOPROLOL ER 25 MG TABLET 12.5 MG PO (09:11)
[2018-03-07] MEDS: LISINOPRIL 5 MG TABLET 2.5 MG PO (09:11)
[2018-03-07] MEDS: ASCORBIC ACID 500 MG TABLET PO (09:11)
[2018-03-07] MEDS: CHOLECALCIFEROL (VITAMIN D3) 1,000 UNIT TABLET 1000 UNIT PO (09:11)
[2018-03-07] MEDS: DULOXETINE 30 MG CAPSULE 90 MG PO (09:11)
[2018-03-07] MEDS: SPIRONOLACTONE 25 MG TABLET 12.5 MG PO (09:11)
[2018-03-07] MEDS: BACLOFEN 10 MG TABLET PO ×3 (09:11→21:05)
[2018-03-07] MEDS: CLOPIDOGREL 75 MG TABLET PO (09:11)
[2018-03-07] MEDS: POLYETHYLENE GLYCOL 3350 17 GM POWD.PACK PO (09:11)
[2018-03-07] MEDS: DOCUSATE 100 MG CAPSULE 200 MG PO ×2 (09:11→21:03)
[2018-03-07] MEDS: FERROUS SULFATE 325 MG TABLET PO ×2 (09:11→21:05)
[2018-03-07] MEDS: INSULIN GLARGINE 100 UNIT/ML 3ML PEN 15 UNIT SUBCUT (09:13)
[2018-03-07] MEDS: INSULIN ASPART 100 UNIT/ML INSULN PEN SUBCUT ×2 (09:13→13:25)
[2018-03-07] MEDS: VANCOMYCIN 1,250 MG in SODIUM CHLORIDE 0.9% 250 ML IV ×2 (11:52→23:49)
--- NOTE | 2018-03-07 12:49 | P.PN_ITS ---
Subjective Date Patient Seen: 03/07/18 Time Patient Seen: 12:30 Interval history: Patient is feeling better today. His T-max was 100.3? earlier this morning. He continued to have neck pain. Exam Vital Signs (past 8 hours): - 03/07/18 08:00 03/07/18 09:00 03/07/18 12:00 Temperature 99.0 F 98.1 F Pulse Rate 80 81 Respiratory Rate 16 18 Blood Pressure 127/63 127/67 Pulse Oximetry 95 97 100 Oxygen Delivery Method Room Air Oxygen Flow Rate 0 Narrative Exam Narrative: Middle-aged man in no acute distress Lungs: Clear to auscultation bilaterally Heart: Regular rhythm, no murmur appreciated Abdomen: Soft, nontender Extremities: The right lower extremity erythema has resolved. No significant lower extremity edema. The abrasion wounds were dressed in dressing. Objective Labs Result Diagrams: 03/07/18 05:17 03/07/18 05:17 Labs: Laboratory Results - last 24 hr 03/06/18 03/07/18 03/07/18 22:00 05:17 05:17 WBC 12.8 H RBC 3.25 L Hgb 9.9 L Hct 28.8 L MCV 88.4 MCH 30.5 MCHC 34.5 RDW 13.0 Plt Count 219 Neut % (Auto) 77.8 H Lymph % (Auto) 11.7 L [place] % (Auto) 9.0 Eos % (Auto) 1.3 L Baso % (Auto) 0.2 Neut # (Auto) 98103 H Sodium 137 Potassium 3.6 Chloride 103 Carbon Dioxide 26 BUN 14 Creatinine 0.60 L Estimated GFR > 60.0 BUN/Creatinine Ratio 23.3 H Glucose 74 L Calcium 8.1 L A. baumannii (PCR) Not detected Kanwal albicans (PCR) Not detected C. glabrata (PCR) Not detected C. krusei (PCR) Not detected C. parapsilosis (PCR) Not detected C. tropicalis (PCR) Not detected Enterobacteriac sp PCR Not detected E. cloacae complex PCR Not detected Enterococcus sp PCR Not detected E. coli (PCR) Not detected H. influenzae (PCR) Not detected Klebsiella oxytoca PCR Not detected Klebsiella pneumoniae Not detected List. monocytogenes PCR Not detected N. meningitidis (PCR) Not detected Proteus species (PCR) Not detected Serratia marcescens PCR Not detected Staphylococcus sp PCR Detected H Staph aureus (PCR) Not detected mecA-Methicil Res Gene Detected H Streptococcus sp PCR Not detected Group A Strep (PCR) Not detected Strep agalactiae (PCR) Not detected Strep pneumoniae (PCR) Not detected P. aeruginosa (PCR) Not detected Bebo/B-Vanco Res Genes Not Reportable KPC-Carbap Res Gene PCR Not detected Assessment & Plan Plan: Assessment/Plan Narrative: 1. Sepsis: Patient had fever of 102, tachycardia with heart rate of 102, leukocytosis with white blood cell count of greater than 24,000 on admission. He also had lethagy which is a sign of organ dysfunction. The source of infection is not quite clear. He does have signs of right lower leg cellulitis. He has several open wounds on the right knee, right lower leg, and the left lower leg. The wound over the right knee has some extudates. Preliminary blood culture grew Staphylococcus species. The ID and sensitivity are pending. We will continue IV Levaquin and vancomycin. We will do C-spine MRI scan to rule out diskitis. 2. Cellulitis in the right lower leg: Improved after IV antibiotics treatment. Continue local wound care. 3. Type 1 diabetes: Continue Lantus insulin 15 units in the morning and 10 units in the evening. He had low glucose readings earlier this morning. We will continue monitor his fingerstick glucose readings. Continue NovoLog insulin per patient's own carb counting he also had. 4. Hypertension: He is on low-dose lisinopril and metoprolol as outpatient. We will continue those medications per outpatient dosing. 5. Hyperlipidemia: Continue atorvastatin 80 mg once a day. 6. Code status: Full code. Code status was discussed with the patient himself. He does not want to be on ventilator for prolonged period of time. Quality VTE Deep Vein Thrombosis/Pulmonary Embolism Present on Admission: No
--- NOTE | 2018-03-07 14:42 | CM.DPC ---
DCP/continued: PHYSICAL SECURITY MANAGER Reviewed chart. Patient continues to be on IV abx. At this time d/c date unknown. Placed call to Lilian at [facility] ph# [phone], she confirms that patient resides there and that they can take him back. However, if patient stays hospitalized over 48hrs they will need to do bedside assessment. Lilian reports that she is out of office for training this week so requests that CM team call Kimberly ph# [phone] ext# [phone]. PHYSICAL SECURITY MANAGER placed call to Kimberly and left vm re: the above conversation that CM team has with Lilian. P: Return to [facility] when medically stable. If IV abx needed will need SNF. ALEC Vee
[2018-03-07] MEDS: levoFLOXacin 750 MG/150 ML PIGGYBACK 100 MG IV (21:03)
[2018-03-07] MEDS: SENNOSIDES 8.6 MG TABLET 17.2 MG PO (21:04)
[2018-03-07] MEDS: ATORVASTATIN 20 MG TABLET 80 MG PO (21:04)
[2018-03-07] MEDS: INSULIN GLARGINE 100 UNIT/ML 3ML PEN 10 UNIT SUBCUT (21:06)
[2018-03-07 23:43] LABS: Vancomycin Trough 11.7 ug/mL (10-20)
[2018-03-07] MEDS: VANCOMYCIN TROUGH 1 REQUEST MISC (23:49)
[2018-03-08] VITALS (10 sets, daily range): BP systolic 130–158; BP diastolic 64–80; PULSE 75–81; RESP 16–18; TEMP 36.7–37.2; O2SAT 95–97
[2018-03-08] MEDS: LEVOTHYROXINE 50 MCG TABLET PO (05:39)
--- NOTE | 2018-03-08 06:32 | PC.NURSE ---
03/08 0632: pt awake most of night, states that sleeping pattern has been altered lately. Asked for PRN pain medications at beginning of shift, with stated relief, otherwise no significant changes this shift. IVF continued and good urine output recorded. Afebrile for the entirety of this shift.
[2018-03-08] MEDS: SODIUM CHLORIDE 0.9% 1,000 ML 100 ML IV (06:44)
[2018-03-08] MEDS: PANTOPRAZOLE 40 MG TABLET PO ×2 (06:44→21:49)
[2018-03-08] MEDS: BACLOFEN 10 MG TABLET PO ×3 (09:02→21:48)
[2018-03-08] MEDS: CLOPIDOGREL 75 MG TABLET PO (09:02)
[2018-03-08] MEDS: DOCUSATE 100 MG CAPSULE 200 MG PO ×2 (09:02→21:48)
[2018-03-08] MEDS: DULOXETINE 30 MG CAPSULE 90 MG PO (09:02)
[2018-03-08] MEDS: ASCORBIC ACID 500 MG TABLET PO (09:02)
[2018-03-08] MEDS: CHOLECALCIFEROL (VITAMIN D3) 1,000 UNIT TABLET 1000 UNIT PO (09:02)
[2018-03-08] MEDS: METOPROLOL ER 25 MG TABLET 12.5 MG PO (09:03)
[2018-03-08] MEDS: LISINOPRIL 5 MG TABLET 2.5 MG PO (09:03)
[2018-03-08] MEDS: FERROUS SULFATE 325 MG TABLET PO ×2 (09:03→21:48)
[2018-03-08] MEDS: SPIRONOLACTONE 25 MG TABLET 12.5 MG PO (09:04)
[2018-03-08] MEDS: NICOTINE 7 MG PATCH TOP (09:04)
[2018-03-08] MEDS: POLYETHYLENE GLYCOL 3350 17 GM POWD.PACK PO (09:04)
[2018-03-08] MEDS: MORPHINE ER 30 MG TABLET PO ×2 (09:04→21:46)
[2018-03-08] MEDS: INSULIN GLARGINE 100 UNIT/ML 3ML PEN 15 UNIT SUBCUT (09:05)
[2018-03-08] MEDS: OXYCODONE IR 10 MG TABLET 30 MG PO ×2 (09:05→15:10)
[2018-03-08] MEDS: clonazePAM 0.5 MG TABLET PO ×2 (09:07→21:47)
[2018-03-08] MEDS: INSULIN ASPART 100 UNIT/ML INSULN PEN SUBCUT ×3 (09:08→22:30)
[2018-03-08] MEDS: VANCOMYCIN 1,000 MG/200 ML FROZ.PIGGY 200 MG IV ×2 (11:43→19:34)
--- NOTE | 2018-03-08 15:33 | CM.DPC ---
DCP/continued: Received notification from Dr. Medina that patient will be medically stable for d/c tomorrow 03-09-18. Patient going out on po abx. Left vm with Kimberly at [facility] notifying her of above. Requested that if bedside assessment needed prior to patient's return asked if that could be done today or in AM. P: Anticipate return to [facility] tomorrow 03-09-18. Facility will need to confirm patient's return. ALEC Vee
--- NOTE | 2018-03-08 16:57 | P.PN_ITS ---
Subjective Date Patient Seen: 03/08/18 Interval history: Patient is improving and has not had significant fever x2 days. Exam Vital Signs (past 8 hours): - 03/08/18 11:45 Temperature 99.0 F Pulse Rate 80 Respiratory Rate 18 Blood Pressure 158/80 H Pulse Oximetry 97 Oxygen Delivery Method Room Air Oxygen Flow Rate 0 Narrative Exam Narrative: General: Alert, pleasant and in no acute distress Lungs: Clear to auscultation Heart: Regular rhythm Abdomen: Soft and nontender Extremities: Very minimal macular erythema on the right [place]. There is multiple bilateral lower extremity abrasions. Objective Labs Result Diagrams: 03/07/18 05:17 03/07/18 05:17 Labs: Laboratory Results - last 24 hr 03/07/18 23:12 Vancomycin Trough 11.7 Assessment & Plan Plan: Assessment/Plan Narrative: 1. Sepsis due to lower extremity cellulitis: Resolving with antibiotic treatment. Patient admitted with fever of 102, tachycardia with heart rate of 102, leukocytosis with white blood cell count of greater than 24,000. Source appears due to right lower extremity cellulitis. C-spine MRI ruled out diskitis. Preliminary blood culture grew Staphylococcus species which appears likely non pathogenic Staph epi as his PCR was negative for Staph aureus. Continue IV vancomycin. Discontinue Levaquin. Likely discharge tomorrow on a few more days antibiotic therapy by mouth. 2. Cellulitis in the right lower leg: Improved after IV antibiotics treatment. Continue local wound care for abrasion. 3. Type 1 diabetes: Continue Lantus insulin 15 units in the morning and 10 units in the evening. He had low glucose readings earlier in admission but okay since then. We will continue monitor his fingerstick glucose readings. Continue NovoLog insulin per patient's own carb counting he also had. 4. Hypertension: He is on low-dose lisinopril and metoprolol as outpatient. We will continue those medications per outpatient dosing. 5. Hyperlipidemia: Continue atorvastatin 80 mg once a day. 6. Code status: Full code. Code status was discussed with the patient himself. He does not want to be on ventilator for prolonged period of time. 7. Weakness of right upper and lower extremities, unknown whether this is related to his history of stroke or C-spine injury or both. 8. Dysarthria, chronic, presumed due to history of stroke. Disposition: Improving clinical course. Likely discharge back to [facility] tomorrow, Wednesday on oral antibiotic therapy. Quality VTE Deep Vein Thrombosis/Pulmonary Embolism Present on Admission: No
--- NOTE | 2018-03-08 18:49 | PC.NURSE ---
PATIENT UP IN WHEELCHAIR TO MOVE AROUND UNIT,PER REQUEST.STATES HARDER TO GET OUT OF THESE BEDS, THEY SUCK YOU BACK IN. DENIES PAIN,DENIES OTHER NEEDS OR WANTS
[2018-03-08] MEDS: levoFLOXacin 750 MG/150 ML PIGGYBACK 100 MG IV (21:45)
[2018-03-08] MEDS: ENOXAPARIN 40 MG/0.4 ML SYRINGE SUBCUT (21:48)
[2018-03-08] MEDS: ATORVASTATIN 20 MG TABLET 80 MG PO (21:48)
[2018-03-08] MEDS: SENNOSIDES 8.6 MG TABLET 17.2 MG PO (21:49)
[2018-03-08] MEDS: INSULIN GLARGINE 100 UNIT/ML 3ML PEN 10 UNIT SUBCUT (21:50)
[2018-03-09] MEDS: VANCOMYCIN 1,000 MG/200 ML FROZ.PIGGY 200 MG IV (02:48)
[2018-03-09 04:10] VITALS: BP 147/76; PULSE 87; RESP 16; TEMP 36.5; O2SAT 99
[2018-03-09] MEDS: LEVOTHYROXINE 50 MCG TABLET PO (06:20)
[2018-03-09] MEDS: PANTOPRAZOLE 40 MG TABLET PO (06:20)
[2018-03-09 07:00] VITALS: O2SAT 98
[2018-03-09 08:00] VITALS: BP 153/75; PULSE 80; RESP 16; TEMP 36.5; O2SAT 98
[2018-03-09] MEDS: DOCUSATE 100 MG CAPSULE 200 MG PO (09:13)
[2018-03-09] MEDS: ASCORBIC ACID 500 MG TABLET PO (09:15)
[2018-03-09] MEDS: BACLOFEN 10 MG TABLET PO (09:15)
[2018-03-09] MEDS: CLOPIDOGREL 75 MG TABLET PO (09:15)
[2018-03-09] MEDS: DULOXETINE 30 MG CAPSULE 90 MG PO (09:15)
[2018-03-09] MEDS: CHOLECALCIFEROL (VITAMIN D3) 1,000 UNIT TABLET 1000 UNIT PO (09:16)
[2018-03-09] MEDS: POLYETHYLENE GLYCOL 3350 17 GM POWD.PACK PO (09:16)
[2018-03-09] MEDS: FERROUS SULFATE 325 MG TABLET PO (09:16)
[2018-03-09] MEDS: LISINOPRIL 5 MG TABLET 2.5 MG PO (09:16)
[2018-03-09] MEDS: METOPROLOL ER 25 MG TABLET 12.5 MG PO (09:16)
[2018-03-09] MEDS: SPIRONOLACTONE 25 MG TABLET 12.5 MG PO (09:16)
[2018-03-09] MEDS: INSULIN ASPART 100 UNIT/ML INSULN PEN SUBCUT (09:18)
[2018-03-09] MEDS: INSULIN GLARGINE 100 UNIT/ML 3ML PEN 15 UNIT SUBCUT (09:18)
[2018-03-09] MEDS: MORPHINE ER 30 MG TABLET PO (09:29)
[2018-03-09 10:20] VITALS: O2SAT 98
[2018-03-09] MEDS: OXYCODONE IR 10 MG TABLET 30 MG PO (10:56)
--- NOTE | 2018-03-09 11:21 | PC.NURSE ---
day shift pt will d/c back to [facility]. report called to Valerie. Spoke with Kimberly today at pt's bedside.
--- NOTE | 2018-03-09 12:07 | PM.DS.1 ---
History of Present Illness Chief complaint: Fever, N/V Narrative: 62 yo man who was brought from [facility] to ER last night for fever and not feeling well. He was found to have fever of 101 and tachycardiac with heart rate of 102. His white blood cell count was also elevated, around 24,000. UA was unremarkable. CXR did not show infiltrates. Abdominal CT did not reveal source of intra-abdominal infection. He reveived IV levoquin, Zosyn, and iv fluid and was admitted to the medicine floor. Patient is feeling better today. He is complaining of chronic neck and shoulder pain Discharge Providers Date of admission: 03/05/18 21:49 Primary care physician: Linda Denise MD Consults: 03/05/18 21:46 Consult to Physician Routine Comment: Consulting Provider: Moris Mckeon Reason for consultation: admission Has provider been notified: Yes Discharge provider: Anand Medina MD Discharge Date: 03/09/18 Summary Discharge Diagnosis: 1. Lower extremity cellulitis, right leg 2. Sepsis secondary to 1. 3. Type 1 diabetes 4. Hypertension 5. Hyperlipidemia 6. Right hemiparesis secondary to previous stroke 7. Dysarthria secondary to previous stroke 8. History of C-spine injury causing loss of sensation in bilateral upper and lower extremities 9. Blood culture positive for Staph species determined not Staph aureus, not pathogenic Hospital Course: 1. Right lower extremity cellulitis: Resolving with antibiotic treatment with vancomycin and being discharged on oral Bactrim. He was also on Levaquin for a few days. Continue local wound care for bridging is on lower extremities present prior to admission. 2. Sepsis: Resolved. Patient admitted with fever of 102, tachycardia with heart rate of 102, leukocytosis with white blood cell count of greater than 24,000. Source appears due to right lower extremity cellulitis. C-spine MRI ruled out diskitis. Preliminary blood culture grew Staphylococcus species which appears likely non pathogenic Staph epi as his PCR was negative for Staph aureus. 3. Type 1 diabetes: Continue Lantus insulin 15 units in the morning and 10 units in the evening. He had low glucose readings earlier in admission but okay since then. 4. Hypertension: He is on low-dose lisinopril and metoprolol as outpatient. We will continue those medications per outpatient dosing. 5. Hyperlipidemia: Continue atorvastatin 80 mg once a day. 6. Code status: Full code. Code status was discussed with the patient himself. He does not want to be on ventilator for prolonged period of time. 7. Weakness of right upper and lower extremities, due to prior CVA, per communication with patient. He subsequently fell down flight of stairs causing C-spine injury and resulting in numbness of his extremities and has not been able to walk since then. 8. Dysarthria, chronic, due to history of stroke. Disposition: Discharge back to [facility] living on oral antibiotic. Status at Discharge Functional status at discharge: wheelchair bound Overall status at discharge: patient is back to baseline Time Spent with Patient Greater than 30 minutes Exam Vital Signs (past 8 hours): - 03/09/18 04:10 03/09/18 07:00 03/09/18 08:00 Temperature 97.7 F 97.7 F Pulse Rate 87 80 Respiratory Rate 16 16 Blood Pressure 147/76 H 153/75 H Pulse Oximetry 99 98 98 03/09/18 10:20 Temperature Pulse Rate Respiratory Rate Blood Pressure Pulse Oximetry 98 Oxygen Delivery Method Room Air Oxygen Flow Rate 0 Objective Labs Result Diagrams: 03/07/18 05:17 03/07/18 05:17 Discharge Plan Discharge Plan Patient Disposition: Assisted Living Transfer to: [facility] Discharge Med Rec/Prescriptions Prescriptions: New sulfamethoxazole-trimethoprim [Bactrim DS] 800-160 mg tablet 1 tab PO BID Qty: 6 RF: 0 Continue atorvastatin 80 MG tablet 80 mg PO HS Qty: 0 RF: 0 aspirin 325 MG tablet 325 mg PO QDAY Qty: 0 RF: 0 clopidogrel 75 MG tablet 75 mg PO QDAY Qty: 0 RF: 0 levothyroxine 50 MCG tablet 50 mcg PO QAM Qty: 0 RF: 0 duloxetine 60 MG capsule,delayed release(DR/EC) 60 mg PO QDAY Qty: 0 RF: 0 metoprolol succinate [Toprol XL] 25 MG tablet extended release 24 hr 12.5 mg PO QDAY Qty: 0 RF: 0 nicotine 7 MG patch 24 hour 7 mg Topical QDAY Qty: 0 RF: 0 polyethylene glycol 3350 [Miralax] 17 GM powder in packet 17 gm PO QDAY Qty: 0 RF: 0 sennosides [senna] 8.6 MG tablet 2 tab PO QDAY Qty: 0 RF: 0 spironolactone 25 MG tablet 12.5 mg PO QDAY Qty: 0 RF: 0 morphine [MS Contin] 60 MG tablet extended release 60 mg PO BID Qty: 0 RF: 0 ferrous sulfate [Iron (ferrous sulfate)] 325 MG tablet 325 mg PO BID Qty: 0 RF: 0 acetaminophen 325 MG tablet 325 mg PO Q4HP PRN (Reason: Pain (Scale Score 1-3)) Qty: 0 RF: 0 bacitracin zinc 28.35 GM ointment 500 unit Topical PRN Qty: 0 RF: 0 omeprazole 20 MG capsule,delayed release(DR/EC) 20 mg PO BID Qty: 0 RF: 0 clonazepam 0.5 MG tablet 0.5 mg PO BID Qty: 0 RF: 0 bisacodyl 10 MG suppository 10 mg PA PRN PRN (Reason: Constipation) Qty: 0 RF: 0 bisacodyl [Fleet Laxative] 5 MG tablet,delayed release (DR/EC) 5 mg PO PRN PRN (Reason: Constipation) Qty: 0 RF: 0 morphine 30 MG tablet 30 mg PO Q4HP PRN (Reason: Pain (Scale Score 1-3)) Qty: 0 RF: 0 alum-mag hydroxide-simeth [Maalox Maximum Strength] 355 ML suspension 354 ml PO PRN PRN (Reason: Acid Reflux) Qty: 0 RF: 0 oxycodone 5 MG tablet 10 mg PO Q4HP PRN (Reason: Pain (Scale Score 1-3)) Qty: 0 RF: 0 magnesium hydroxide [Milk of Magnesia] 400 mg/5 mL Suspension 30 ml PO DAILY PRN (Reason: Constipation) RF: 0 docusate sodium 100 mg Capsule 100 mg PO BID RF: 0 ammonium lactate [Lac-Hydrin Five] 5 % Lotion 1 applic TOPICAL BID RF: 0 cholecalciferol (vitamin D3) 1,000 unit Capsule 1,000 unit PO DAILY RF: 0 mirtazapine 15 mg tablet 15 mg PO DAILY RF: 0 insulin aspart U-100 [Novolog Flexpen U-100 Insulin] 100 unit/mL insulin pen 100 unit SUBCUT DAILY RF: 0 baclofen 10 mg tablet 10 mg PO TID RF: 0 ibuprofen 400 mg tablet 400 mg PO Q4-6H PRN (Reason: Pain (Scale Score 1-3)) RF: 0 lisinopril 2.5 mg tablet 2.5 mg PO DAILY RF: 0 cetirizine [Zyrtec] 10 mg tablet 10 mg PO DAILY RF: 0 nystatin 100,000 unit/gram powder 1 applictn TOP BID RF: 0 artifi.tears(hypromellose)(PF) 0.3 % drops 1 % EYE-BOTH .q12 PRN (Reason: Dry Eye(S)) RF: 0 clonazepam 0.5 mg tablet 0.5 mg PO BID RF: 0 ascorbic acid (vitamin C) 500 mg capsule 500 mg PO .qday RF: 0 B-complex with vitamin C capsule 1 cap PO DAILY RF: 0 Follow up/Referrals: Linda Denise MD [Primary Care Provider] - Discharge Orders: Discharge (Order); Ordered 03/09/18 Ordered By: Anand Medina Provider Discharge Instructions Diet: Diet as Tolerated Liquid consistency: Normal/Thin Food texture: Regular Visit Report/Discharge Packet Instructions: DI for Cellulitis -- Adult, Trimethoprim/Sulfamethoxazole (Alternative Therapy) Discharge Data Primary Care Provider: Linda Denise Attending Provider: Moris Mckeon Admit Date/Time: 03/05/18 21:49 Quality VTE Deep Vein Thrombosis/Pulmonary Embolism Present on Admission: No
--- NOTE | 2018-03-09 12:13 | PC.NURSE ---
Discharge Note: Assumed care of pt at 1130, pt checked on prior to discharge. Report called by prior RN to [facility]. Pt helped with urinal, reported neck pain well-managed at 5/10. A and O prior to discharge. Pt discharged to [facility] via wheelchair without incident.
--- NOTE | 2018-03-09 12:34 | CM.DPC ---
DC Note: DC order in place for return to [facility] on po abx. 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 [facility] arranged for p/u at 1130, pt, RN and Kimberly all aware and agreeable. [employer] assistant principal Nathen faxed signed med list and Rx for po abx. P: Return home to [facility] via [place]. ALEC Ellsworth
== END 2018-03-09 12:15 | DRG 872 ==
LOC: ED 20:05 → AC 21:51
PROVIDERS: Internal Medicine; Admitting Provider Internal Medicine; Emergency Provider Emergency Medicine; Family Provider Internal Medicine; PCP Internal Medicine; Visit Provider Internal Medicine
DX: A41.9 Sepsis, unspecified organism (principal); L03.115 Cellulitis of right lower limb; I69.351 Hemiplegia and hemiparesis following cerebral infarction affecting right dominant side; E10.9 Type 1 diabetes mellitus without complications; I10 Essential (primary) hypertension; E78.5 Hyperlipidemia, unspecified; K21.9 Gastro-esophageal reflux disease without esophagitis; F17.210 Nicotine dependence, cigarettes, uncomplicated; R53.83 Other fatigue; R65.20 Severe sepsis without septic shock; I69.322 Dysarthria following cerebral infarction; M62.81 Muscle weakness (generalized); T14.90XS Injury, unspecified, sequela; M54.2 Cervicalgia
CPT/HCPCS: 36415; 71045; 72156; 74177; 80048; 80053; 80202; 81001; 82009; 82962; 83605; 83690; 84145; 85025; 87040; 87086; 87150; 87205; 87400; 94760; 94762; 96361; 96365; 96366; 99283; 99285; 99406; A9579; J1650; J1956; J2543; J3370; Q9967

== ENCOUNTER 2018-03-18 00:07 | Emergency (ER) | payer MEDICARE, MEDICAID, SELFPAY ==
--- NOTE | 2018-03-18 00:11 | DI.RAD.S_ITS ---
PROCEDURE: XR CHEST 1V INDICATIONS: Chest pain TECHNIQUE: One view of the chest was acquired. COMPARISON: [facility], , CHEST 1 VIEW, 05/17/2017, 20:07. [facility], , XR CHEST 1V, 03/05/2018, 19:23. FINDINGS: Surgical changes and devices: None. Lungs and pleura: No pleural effusions or pneumothorax. Lungs are clear. Mediastinum: Mediastinal contours appear normal. Heart size is normal. Bones and chest wall: No suspicious bony lesions. Overlying soft tissues appear unremarkable. Chronic right humeral fracture and left inferior rib fracture again noted. IMPRESSION: No acute cardiopulmonary disease. Dictated by: Clif Bermeo M.D. on 03/18/2018 at 8:08 Approved by: Clif Bermeo M.D. on 03/18/2018 at 8:09
[2018-03-18 00:12] VITALS: BP 170/75; PULSE 88; RESP 16; TEMP 36.9; O2SAT 99
--- NOTE | 2018-03-18 00:12 | ED_ITS ---
HPI - Chest Pain General Chief Complaint: Chest Pain Stated Complaint: Chest Pain Time Seen by Provider: 03/18/18 00:11 Source: patient Mode of arrival: EMS Limitations: no limitations History of Present Illness HPI narrative: Patient is a 62-year-old male here for evaluation left-sided chest pain. The patient states that it has been going on for the past 2 weeks. He states that it started in his lower center chest and now is radiating to his left lower chest. He states that it is worse with movement. Worse with taking a deep breath. Worse with coughing. Worse with sneezing. Has not tried anything for prior to arrival. No skin changes. He states that he spent the day in the vehicle and riding in the vehicle caused it to hurt. No trauma. Related Data Home Medications Medication Instructions Recorded Confirmed acetaminophen 325 mg PO Q4HP PRN #0 06/29/17 03/05/18 alum-mag hydroxide-simeth [Maalox 354 ml PO PRN PRN #0 06/29/17 03/05/18 Maximum Strength] aspirin 325 mg PO QDAY #0 06/29/17 03/05/18 atorvastatin 80 mg PO HS #0 06/29/17 03/05/18 bacitracin zinc 500 unit TOPICAL PRN #0 06/29/17 03/05/18 bisacodyl 10 mg NJ PRN PRN #0 06/29/17 03/05/18 bisacodyl [Fleet Laxative] 5 mg PO PRN PRN #0 06/29/17 03/05/18 clonazepam 0.5 mg PO BID #0 06/29/17 03/05/18 clopidogrel 75 mg PO QDAY #0 06/29/17 03/05/18 duloxetine 60 mg PO QDAY #0 06/29/17 03/05/18 ferrous sulfate [Iron (ferrous 325 mg PO BID #0 06/29/17 03/05/18 sulfate)] levothyroxine 50 mcg PO QAM #0 06/29/17 03/05/18 metoprolol succinate [Toprol XL] 12.5 mg PO QDAY #0 06/29/17 03/05/18 morphine 30 mg PO Q4HP PRN #0 06/29/17 03/05/18 morphine [MS Contin] 60 mg PO BID #0 06/29/17 03/05/18 nicotine 7 mg TOPICAL QDAY #0 06/29/17 03/05/18 omeprazole 20 mg PO BID #0 06/29/17 03/05/18 oxycodone 10 mg PO Q4HP PRN #0 06/29/17 03/05/18 polyethylene glycol 3350 [Miralax] 17 gm PO QDAY #0 06/29/17 03/05/18 sennosides [senna] 2 tab PO QDAY #0 06/29/17 03/05/18 spironolactone 12.5 mg PO QDAY #0 06/29/17 03/05/18 B-complex with vitamin C capsule 1 cap PO DAILY 11/25/17 03/05/18 artificial tears (hypromellose) 1 % EYE-BOTH .q12 PRN ml 11/25/17 03/05/18 (PF) 0.3 % eye drops ascorbic acid (vitamin C) 500 mg 500 mg PO .qday cap 11/25/17 03/05/18 capsule baclofen 10 mg tablet 10 mg PO TID 11/25/17 03/05/18 cetirizine 10 mg tablet 10 mg PO DAILY 11/25/17 03/05/18 clonazepam 0.5 mg tablet 0.5 mg PO BID 11/25/17 03/05/18 ibuprofen 400 mg tablet 400 mg PO Q4-6H PRN 11/25/17 03/05/18 insulin aspart U-100 100 unit/mL 100 unit SUBCUT DAILY 11/25/17 03/05/18 subcutaneous pen lisinopril 2.5 mg tablet 2.5 mg PO DAILY 11/25/17 03/05/18 mirtazapine 15 mg tablet 15 mg PO DAILY 11/25/17 03/05/18 nystatin 100,000 unit/gram topical 1 applictn TOP BID 11/25/17 03/05/18 powder ammonium lactate [Lac-Hydrin Five] 1 applic TOPICAL BID 03/05/18 03/05/18 cholecalciferol (vitamin D3) 1,000 unit PO DAILY 03/05/18 03/05/18 docusate sodium 100 mg PO BID 03/05/18 03/05/18 magnesium hydroxide [Milk of 30 ml PO DAILY PRN 03/05/18 03/05/18 Magnesia] Previous Rx's Medication Instructions Recorded sulfamethoxazole-trimethoprim 1 tab PO BID #6 tab 03/09/18 [Bactrim DS] hydrocodone-acetaminophen [[place]] 1 tab PO Q6H PRN #7 tab 03/18/18 Allergies Allergy/AdvReac Type Severity Reaction Status Date / Time codeine [CODEINE] AdvReac Unknown nausea Verified 11/25/17 14:32 Review of Systems Cardiovascular Reports chest pain and Denies dyspnea Respiratory Reports pain with cough and Denies dyspnea Gastrointestinal Gastrointestinal: Denies abdominal pain and Denies change in stool character Musculoskeletal Denies myalgias and Denies arthralgias Integumentary/Breasts Denies lesions and Denies rash Neurologic Denies behavioral changes Psychiatric Denies behavioral changes PFS Medical History C3 spinal cord injury (Acute) C4 spinal cord injury (Acute) CVA (cerebral vascular accident) (Acute) Diabetes (Acute) Gastroesophageal reflux disease (Acute) Hyperlipidemia (Acute) Hypertension (Acute) Social History household members: caregiver Smoking Status: Current every day smoker alcohol intake: never substance use type: does not use Exam Initial Vital Signs Initial Vital Signs: Vital Signs Temperature 98.5 F 03/18/18 00:12 Pulse Rate 88 03/18/18 00:12 Respiratory Rate 16 03/18/18 00:12 Blood Pressure 170/75 H 03/18/18 00:12 Pulse Oximetry 99 03/18/18 00:12 Const General: cooperative, comfortable, well developed, well groomed and No acute distress Orientation: alert, awake and oriented x3 HENMT Head: normal to inspection and normocephalic Chest Chest: normal inspection of the chest, No crepitus and tenderness (Lower portion of sternum and left lower ribs anterior lateral chest wall) Resp Effort & Inspection: normal respiratory effort Auscultation: clear to auscultation bilaterally Cardio Rate: regular rate Rhythm: regular rhythm Pulses: radial pulses present Skin Lesions: no lesions Rashes: no rashes Neuro General: alert, awake and oriented x3 Extrem General: normal to inspection and capillary refill normal Psych Appearance: grossly normal and well kempt Course Orders Ordered: ED Orders 03/18/18 00:11 XR chest 1V Stat EKG-12 Lead Stat Vital Signs - 8 hr 03/18/18 00:12 03/18/18 00:57 03/18/18 01:36 Temperature 98.5 F Pulse Rate 88 76 79 Respiratory Rate 16 16 16 Blood Pressure 170/75 H Blood Pressure [Right Arm] 140/69 116/62 Pulse Oximetry 99 95 99 03/18/18 02:32 Temperature Pulse Rate 78 Respiratory Rate 16 Blood Pressure Blood Pressure [Right Arm] 121/69 Pulse Oximetry 97 MDM - Chest Pain Imaging Data Chest x-ray: Attestation: I personally reviewed and interpreted this imaging study as follows: My impression: Normal size heart No pneumonia No focal consolidation ECG Data Attestation: I personally reviewed and interpreted this ECG as follows: Prior ECG tracings: not available for review Interpretation: Sinus rhythm Ventricular rate 80 for Normal axis Normal QRS Normal QTC Nonspecific ST T wave changes MDM Narrative Medical decision making narrative: Patient has reproducible left-sided chest wall pain that has been going on for the past 2 weeks. The chest x-ray is unremarkable. Has a nonischemic EKG. I have low suspicion for ACS. Low suspicion for PE. No signs of pneumonia on the chest x-ray. I do suspect musculoskeletal etiology. Patient does have morphine according to the med list that we have. Patient states that he is taking that. Will send home with just a prepack of [place] for breakthrough pain. Patient was given return precautions. He has no skin changes concerning for zoster. He expressed understanding and agreement with plan. Discharge Plan Departure Patient Disposition: Home Clinical Impression: Anterior chest wall pain Discharge Date/Time: 03/18/18 03:10 Interventions: ED Discharge Assessment Last Done: 03/18/18 03:09 Instructions: DI for Atypical Chest Pain Activity Restrictions/Additional Instructions: Recommend that you take Motrin 600 mg by mouth on a regular basis. This is a medication that can be bought [id number]. You do have morphine already prescribed for you. You can do the medication that I am giving you today as needed for breakthrough pain. I would recommend contacting her primary doctor for a follow-up. Prescriptions: New hydrocodone-acetaminophen [[place]] 5-325 mg tablet 1 tab PO Q6H PRN (Reason: pain) Qty: 7 RF: 0 No Action atorvastatin 80 MG tablet 80 mg PO HS Qty: 0 RF: 0 aspirin 325 MG tablet 325 mg PO QDAY Qty: 0 RF: 0 clopidogrel 75 MG tablet 75 mg PO QDAY Qty: 0 RF: 0 levothyroxine 50 MCG tablet 50 mcg PO QAM Qty: 0 RF: 0 duloxetine 60 MG capsule,delayed release(DR/EC) 60 mg PO QDAY Qty: 0 RF: 0 metoprolol succinate [Toprol XL] 25 MG tablet extended release 24 hr 12.5 mg PO QDAY Qty: 0 RF: 0 nicotine 7 MG patch 24 hour 7 mg Topical QDAY Qty: 0 RF: 0 polyethylene glycol 3350 [Miralax] 17 GM powder in packet 17 gm PO QDAY Qty: 0 RF: 0 sennosides [senna] 8.6 MG tablet 2 tab PO QDAY Qty: 0 RF: 0 spironolactone 25 MG tablet 12.5 mg PO QDAY Qty: 0 RF: 0 morphine [MS Contin] 60 MG tablet extended release 60 mg PO BID Qty: 0 RF: 0 ferrous sulfate [Iron (ferrous sulfate)] 325 MG tablet 325 mg PO BID Qty: 0 RF: 0 acetaminophen 325 MG tablet 325 mg PO Q4HP PRN (Reason: Pain (Scale Score 1-3)) Qty: 0 RF: 0 bacitracin zinc 28.35 GM ointment 500 unit Topical PRN Qty: 0 RF: 0 omeprazole 20 MG capsule,delayed release(DR/EC) 20 mg PO BID Qty: 0 RF: 0 clonazepam 0.5 MG tablet 0.5 mg PO BID Qty: 0 RF: 0 bisacodyl 10 MG suppository 10 mg NJ PRN PRN (Reason: Constipation) Qty: 0 RF: 0 bisacodyl [Fleet Laxative] 5 MG tablet,delayed release (DR/EC) 5 mg PO PRN PRN (Reason: Constipation) Qty: 0 RF: 0 morphine 30 MG tablet 30 mg PO Q4HP PRN (Reason: Pain (Scale Score 1-3)) Qty: 0 RF: 0 alum-mag hydroxide-simeth [Maalox Maximum Strength] 355 ML suspension 354 ml PO PRN PRN (Reason: Acid Reflux) Qty: 0 RF: 0 oxycodone 5 MG tablet 10 mg PO Q4HP PRN (Reason: Pain (Scale Score 1-3)) Qty: 0 RF: 0 magnesium hydroxide [Milk of Magnesia] 400 mg/5 mL Suspension 30 ml PO DAILY PRN (Reason: Constipation) RF: 0 docusate sodium 100 mg Capsule 100 mg PO BID RF: 0 ammonium lactate [Lac-Hydrin Five] 5 % Lotion 1 applic TOPICAL BID RF: 0 cholecalciferol (vitamin D3) 1,000 unit Capsule 1,000 unit PO DAILY RF: 0 sulfamethoxazole-trimethoprim [Bactrim DS] 800-160 mg tablet 1 tab PO BID Qty: 6 RF: 0 mirtazapine 15 mg tablet 15 mg PO DAILY RF: 0 insulin aspart U-100 [Novolog Flexpen U-100 Insulin] 100 unit/mL insulin pen 100 unit SUBCUT DAILY RF: 0 baclofen 10 mg tablet 10 mg PO TID RF: 0 ibuprofen 400 mg tablet 400 mg PO Q4-6H PRN (Reason: Pain (Scale Score 1-3)) RF: 0 lisinopril 2.5 mg tablet 2.5 mg PO DAILY RF: 0 cetirizine [Zyrtec] 10 mg tablet 10 mg PO DAILY RF: 0 nystatin 100,000 unit/gram powder 1 applictn TOP BID RF: 0 artifi.tears(hypromellose)(PF) 0.3 % drops 1 % EYE-BOTH .q12 PRN (Reason: Dry Eye(S)) RF: 0 clonazepam 0.5 mg tablet 0.5 mg PO BID RF: 0 ascorbic acid (vitamin C) 500 mg capsule 500 mg PO .qday RF: 0 B-complex with vitamin C capsule 1 cap PO DAILY RF: 0
[2018-03-18 00:57] VITALS: BP 140/69; PULSE 76; RESP 16; O2SAT 95
[2018-03-18 01:36] VITALS: BP 116/62; PULSE 79; RESP 16; O2SAT 99
[2018-03-18 02:32] VITALS: BP 121/69; PULSE 78; RESP 16; O2SAT 97
--- NOTE | 2018-03-18 03:06 | PC.NURSE ---
[facility] nursing called, aware that pt is coming back.
--- NOTE | 2018-03-18 03:11 | PC.NURSE ---
He was sent back to [facility] via [place] [facility],report called to [facility].He denies needing pain medication at this time.
--- NOTE | 2018-03-19 15:14 | PC.NURSE ---
still, hurting , dr muniz changed the prescriptions. will make follow up appointment next week, rtr prn to er.
== END 2018-03-18 03:10 | disposition home or self-care (01) ==
LOC: ED 01:43
PROVIDERS: Emergency Provider Emergency Medicine; Family Provider Internal Medicine; PCP Internal Medicine
DX: R07.89 Other chest pain (principal)
CPT/HCPCS: 71045; 93005; 99283; 99284

== ENCOUNTER → 2018-03-22 07:37 | Outpatient (REF) | payer MEDICARE, MEDICAID, SELFPAY ==
[2018-03-05 22:44] VITALS: BMI 23.3
[2018-03-22 08:08] LABS: Add Manual Diff / Slide Review NO; Basophils Percent Auto 0.5 % (0-2); Eosinophils Percent Auto 6.5 % (2-4); Hematocrit 36.6 % (41-53); Hemoglobin 12.3 g/dL (13.5-17.5); Lymphocytes Percent Auto 19.5 % (25-40); Mean Corpuscular HGB Conc 33.5 % (30-36); Mean Corpuscular Hemoglobin 30.1 PG (26-34); Neutrophils Absolute Auto 6100 /uL (3000-5900); Neutrophils Percent Auto 64.5 % (50-75); Platelet Count 345 X10^3/uL (150-400); Red Blood Cell Count 4.07 X10^6/uL (4.5-5.9); Red Cell Distribution Width 13.2 % (11.6-14.8); White Blood Cell Count 9.5 X10^3/uL (4.5-11.0)
[2018-03-22 08:14] LABS: Hemoglobin A1C% w Est Avg Glu 7.7 % (4.0-6.0)
[2018-03-22 08:20] LABS: BUN Creatinine Ratio 32.5 (6-22); Blood Urea Nitrogen 26 mg/dL (9-20); Calcium 8.9 mg/dL (8.4-10.2); Carbon Dioxide 32 mmol/L (22-32); Chloride 98 mmol/L (98-107); Estimated Glomerular Filt Rate > 60.0 mL/min (>60); Glucose 357 mg/dL (80-110); HEMOLYSIS < 15 (0-50); Sodium 138 mmol/L (137-145)
[2018-03-22 08:24] LABS: Potassium 5.5 mmol/L (3.4-5.1)
== END ==
LOC: LAB 07:37
PROVIDERS: Family Provider Internal Medicine; PCP Internal Medicine; Visit Provider Nurse Practitioner Family
DX: E11.9 Type 2 diabetes mellitus without complications (principal)
CPT/HCPCS: 36415; 80048; 83036; 85025

== ENCOUNTER → 2018-03-25 15:04 | Outpatient (REF) | payer MEDICARE, MEDICAID, SELFPAY ==
[2018-03-05 22:44] VITALS: BMI 23.3
[2018-03-25 15:56] LABS: Alanine Aminotransferase 37 IU/L (21-72); Albumin 3.8 g/dL (3.5-5.0); Albumin Globulin Ratio 1.7 (1.0-2.8); Alkaline Phosphatase 111 U/L (38-126); Aspartate Aminotransferase 22 IU/L (17-59); BUN Creatinine Ratio 23.3 (6-22); Bilirubin Total 0.4 mg/dL (0.2-1.3); Blood Urea Nitrogen 21 mg/dL (9-20); Carbon Dioxide 27 mmol/L (22-32); Chloride 102 mmol/L (98-107); Estimated Glomerular Filt Rate > 60.0 mL/min (>60); Globulin 2.3 g/dL (1.7-4.1); Glucose 90 mg/dL (80-110); HEMOLYSIS < 15 (0-50); Potassium 4.7 mmol/L (3.4-5.1); Sodium 141 mmol/L (137-145); Total Protein 6.1 g/dL (6.3-8.2)
== END ==
LOC: LAB 15:04
PROVIDERS: Family Provider Internal Medicine; PCP Internal Medicine; Visit Provider Nurse Practitioner Family
DX: I69.351 Hemiplegia and hemiparesis following cerebral infarction affecting right dominant side (principal)
CPT/HCPCS: 80053

== ENCOUNTER → 2018-04-07 08:21 | Outpatient (REF) | payer MEDICARE, MEDICAID, SELFPAY ==
[2018-04-07 09:09] LABS: Add Manual Diff / Slide Review NO; Basophils Percent Auto 0.6 % (0-2); Eosinophils Percent Auto 6.3 % (2-4); Hematocrit 36.1 % (41-53); Hemoglobin 12.1 g/dL (13.5-17.5); Lymphocytes Percent Auto 23.7 % (25-40); Mean Corpuscular HGB Conc 33.5 % (30-36); Mean Corpuscular Hemoglobin 29.6 PG (26-34); Mean Corpuscular Volume 88.4 fL (80-100); Neutrophils Absolute Auto 6700 /uL (3000-5900); Neutrophils Percent Auto 60.4 % (50-75); Platelet Count 268 X10^3/uL (150-400); Red Blood Cell Count 4.09 X10^6/uL (4.5-5.9); Red Cell Distribution Width 13.2 % (11.6-14.8); White Blood Cell Count 11.2 X10^3/uL (4.5-11.0)
[2018-04-07 09:37] LABS: BUN Creatinine Ratio 18.2 (6-22); Blood Urea Nitrogen 20 mg/dL (9-20); Calcium 8.8 mg/dL (8.4-10.2); Carbon Dioxide 29 mmol/L (22-32); Chloride 99 mmol/L (98-107); Estimated Glomerular Filt Rate > 60.0 mL/min (>60); Glucose 156 mg/dL (80-110); HEMOLYSIS < 15 (0-50); Sodium 139 mmol/L (137-145)
== END ==
LOC: LAB 08:21
PROVIDERS: Family Provider Internal Medicine; PCP Internal Medicine; Visit Provider Nurse Practitioner Family
DX: I10 Essential (primary) hypertension (principal)
CPT/HCPCS: 36415; 80048; 85025

== ENCOUNTER → 2018-04-21 21:49 | Outpatient (REF) | payer MEDICARE, SELFPAY ==
[2018-04-21 23:25] LABS: Clostridium difficile toxin AB Not Detected (Not Detect); Cryptosporidium Not Detected (Not Detect); Enteroaggregative E.coli Not Detected (Not Detect); Enteropathogenic E.coli Not Detected (Not Detect); Enterotoxigenic E.coli It/st Not Detected (Not Detect); Plesiomonsa shigelloides Not Detected (Not Detect); Salmonella Not Detected (Not Detect); Shiga-like toxin-prod E.coli Not Detected (Not Detect); Shigella/Enteroinvasive E.coli Not Detected (Not Detect); Vibrio Not Detected (Not Detect); Vibrio cholerae Not Detected (Not Detect); Yersinia enterocolitica Not Detected (Not Detect)
[2018-04-21 23:26] LABS: Adenovirus F 40/41 Not Detected (Not Detect); Astrovirus Not Detected (Not Detect); Cyclospora cayetanensis Not Detected (Not Detect); Entamoeba histolytica Not Detected (Not Detect); Giardia lamblia Not Detected (Not Detect); Norovirus GI/GII Not Detected (Not Detect); Rotavirus A Not Detected (Not Detect); Sapovirus Not Detected (Not Detect)
[2018-04-22 07:47] LABS: Campylobacter Not Detected (Not Detect)
== END ==
LOC: LAB 21:49
PROVIDERS: Family Provider Internal Medicine; PCP Internal Medicine; Visit Provider Internal Medicine
DX: R19.5 Other fecal abnormalities (principal)
CPT/HCPCS: 87507

== ENCOUNTER → 2018-04-22 14:36 | Outpatient (REF) | payer MEDICARE, SELFPAY ==
[2018-04-22 15:08] LABS: Add Manual Diff / Slide Review NO; Basophils Percent Auto 0.6 % (0-2); Eosinophils Percent Auto 5.6 % (2-4); Hemoglobin 11.6 g/dL (13.5-17.5); Lymphocytes Percent Auto 24.5 % (25-40); Mean Corpuscular HGB Conc 33.3 % (30-36); Mean Corpuscular Hemoglobin 29.3 PG (26-34); Mean Corpuscular Volume 88.1 fL (80-100); Neutrophils Absolute Auto 4900 /uL (1500-7000); Neutrophils Percent Auto 60.3 % (50-75); Platelet Count 285 X10^3/uL (150-400); Red Blood Cell Count 3.97 X10^6/uL (4.5-5.9); White Blood Cell Count 8.2 X10^3/uL (4.5-11.0)
[2018-04-22 15:44] LABS: BUN Creatinine Ratio 25.6 (6-22); Blood Urea Nitrogen 23 mg/dL (9-20); Calcium 8.8 mg/dL (8.4-10.2); Carbon Dioxide 29 mmol/L (22-32); Chloride 102 mmol/L (98-107); Estimated Glomerular Filt Rate > 60.0 mL/min (>60); Glucose 125 mg/dL (80-110); HEMOLYSIS < 15 (0-50); Potassium 4.3 mmol/L (3.4-5.1); Sodium 140 mmol/L (137-145)
[2018-04-22 16:22] LABS: Influenza A and B by PCR Rapid Negative (Negative)
== END ==
LOC: LAB 14:36
PROVIDERS: Family Provider Internal Medicine; PCP Internal Medicine; Visit Provider Internal Medicine
DX: R05 Cough (principal)
CPT/HCPCS: 80048; 85025; 87400

== ENCOUNTER → 2018-06-07 07:50 | Outpatient (REF) | payer MEDICARE, SELFPAY ==
[2018-06-07 08:31] LABS: Add Manual Diff / Slide Review NO; Basophils Absolute Auto 100 /uL (0-100); Basophils Percent Auto 0.8 % (0-2); Eosinophils Absolute Auto 700 /uL (0-450); Eosinophils Percent Auto 7.3 % (2-4); Hemoglobin 12.3 g/dL (13.5-17.5); Lymphocytes Absolute Auto 2400 /uL (1100-4500); Lymphocytes Percent Auto 26.6 % (25-40); Mean Corpuscular HGB Conc 33.2 % (30-36); Mean Corpuscular Hemoglobin 29.4 PG (26-34); Mean Corpuscular Volume 88.4 fL (80-100); Monocytes Absolute Auto 800 /uL (0-900); Monocytes Percent Auto 8.8 % (3-14); Neutrophils Absolute Auto 5000 /uL (1500-7000); Neutrophils Percent Auto 56.5 % (50-75); Platelet Count 277 X10^3/uL (150-400); Red Blood Cell Count 4.18 X10^6/uL (4.5-5.9); White Blood Cell Count 8.9 X10^3/uL (4.5-11.0)
[2018-06-07 08:44] LABS: Hemoglobin A1C% w Est Avg Glu 7.4 % (4.0-6.0)
[2018-06-07 09:16] LABS: Alanine Aminotransferase 31 IU/L (21-72); Albumin 3.5 g/dL (3.5-5.0); Albumin Globulin Ratio 1.3 (1.0-2.8); Alkaline Phosphatase 112 U/L (38-126); Aspartate Aminotransferase 18 IU/L (17-59); BUN Creatinine Ratio 26.3 (6-22); Bilirubin Total 0.1 mg/dL (0.2-1.3); Blood Urea Nitrogen 21 mg/dL (9-20); Calcium 8.6 mg/dL (8.4-10.2); Carbon Dioxide 28 mmol/L (22-32); Chloride 104 mmol/L (98-107); Estimated Glomerular Filt Rate > 60.0 mL/min (>60); Globulin 2.6 g/dL (1.7-4.1); Glucose 178 mg/dL (80-110); HEMOLYSIS < 15 (0-50); Potassium 4.2 mmol/L (3.4-5.1); Sodium 137 mmol/L (137-145); Total Protein 6.1 g/dL (6.3-8.2)
== END ==
LOC: LAB 07:50
PROVIDERS: Family Provider Internal Medicine; PCP Internal Medicine; Visit Provider Nurse Practitioner Family
DX: E11.9 Type 2 diabetes mellitus without complications (principal)
CPT/HCPCS: 36415; 80053; 83036; 85025

== ENCOUNTER → 2018-06-14 11:53 | Outpatient (CLI) | payer MEDICARE, MEDICAID, SELFPAY ==
--- NOTE | 2018-06-14 | DI.RAD.S_ITS ---
PROCEDURE: XR TIBIA FUBULA RT 2V INDICATIONS: RT LEG,ANKLE AND FOOT PAIN TECHNIQUE: 2 views of the tibia and fibula were acquired. COMPARISON: [facility], EVELIA, KNEE 3V RIGHT, 07/29/2017, 14:07. [facility], CR, XR KNEE RT 1TO2V, 06/14/2018, 13:08. FINDINGS: Bones: Subtle nondisplaced fractures involving the proximal tibia and fibula. Soft tissues: No suspicious soft tissue calcifications or masses. IMPRESSION: Subtle nondisplaced fractures involving the proximal tibia and fibula. Findings are personally telephoned and discussed with Dr. Denise 1443 hours on 06/14/18 Dictated by: Fidel Mcgrath M.D. on 06/14/2018 at 14:39 Approved by: Fidel Mcgrath M.D. on 06/14/2018 at 14:43
--- NOTE | 2018-06-14 | DI.RAD.S_ITS ---
PROCEDURE: XR FOOT RT MIN 3V INDICATIONS: RIGHT LEG,ANKLE AND FOOT PAIN TECHNIQUE: 3 views of the foot were acquired. COMPARISON: [facility], CR, FOOT 3V RIGHT, 08/25/2017, 14:53. FINDINGS: Bones: No acute fractures or dislocations. No suspicious bony lesions. Severe diffuse hindfoot and mid foot degeneration. Mild first MTP joint degeneration. Chronic appearing fracture at the neck of the fourth metatarsal. Soft tissues: There is prominent diffuse right foot swelling. Scattered vascular calcifications. IMPRESSION: Severe right foot swelling of unknown etiology. Please correlate clinically. No focal osseous destruction to suggest advanced osteomyelitis. If there is persistent clinical concern, continued short interval radiographic followup or contrast enhanced MRI could be performed to assess for early infection. Severe diffuse hindfoot and midfoot joint degeneration. Dictated by: Fidel Mcgrath M.D. on 06/14/2018 at 14:05 Approved by: Fidel Mcgrath M.D. on 06/14/2018 at 14:23
--- NOTE | 2018-06-14 | DI.RAD.S_ITS ---
PROCEDURE: XR ANKLE RT MIN 3V INDICATIONS: RT LEG,ANKLE AND FOOT PAIN TECHNIQUE: 3 views of the ankle were acquired. COMPARISON: [facility], , ANKLE 3 VIEWS RIGHT, 08/25/2017, 14:55. FINDINGS: Bones: No fractures or dislocations. Ankle mortise is normally aligned. No suspicious bony lesions. Soft tissues: No tibiotalar joint effusion. Achilles tendon appears normal. Scattered vascular opacifications. Diffuse hindfoot and mid foot degeneration. IMPRESSION: No fracture Dictated by: Fidel Mcgrath M.D. on 06/14/2018 at 14:29 Approved by: Fidel Mcgrath M.D. on 06/14/2018 at 14:30
--- NOTE | 2018-06-14 | DI.RAD.S_ITS ---
PROCEDURE: XR KNEE RT 1TO2V INDICATIONS: RT LEG,ANKLE AND FOOT PAIN TECHNIQUE: 2 views of the knee were acquired. COMPARISON: [facility], CR, XR TIBIA FIBULA RT 2V, 06/14/2018, 13:32. [facility], CR, KNEE 3V RIGHT, 08/27/2017, 10:29. FINDINGS: Bones: Nondisplaced fractures of the proximal tibia and fibula. Partially visualized intramedullary corin and screw fixation of the distal femur. Vascular stent also noted. Mild right knee joint degeneration. Diffuse osteopenia. Soft tissues: No joint effusion. No suspicious soft tissue calcifications. IMPRESSION: Nondisplaced fractures of the proximal tibia and fibula. Dictated by: Fidel Mcgrath M.D. on 06/14/2018 at 14:25 Approved by: Fidel Mcgrath M.D. on 06/14/2018 at 14:28
== END ==
PROVIDERS: Family Provider Nurse Practitioner Family; PCP Internal Medicine; Visit Provider Nurse Practitioner Family
DX: S82.101A Unspecified fracture of upper end of right tibia, initial encounter for closed fracture (principal); S82.831A Other fracture of upper and lower end of right fibula, initial encounter for closed fracture; M25.571 Pain in right ankle and joints of right foot; M17.11 Unilateral primary osteoarthritis, right knee; M85.861 Other specified disorders of bone density and structure, right lower leg; R60.0 Localized edema; M19.071 Primary osteoarthritis, right ankle and foot
CPT/HCPCS: 73560; 73590; 73610; 73630

== ENCOUNTER → 2018-06-28 07:23 | Outpatient (REF) | payer MEDICARE, MEDICAID, SELFPAY ==
[2018-06-28 08:23] LABS: BUN Creatinine Ratio 29.2 (6-22); Blood Urea Nitrogen 35 mg/dL (9-20); Calcium 8.6 mg/dL (8.4-10.2); Carbon Dioxide 30 mmol/L (22-32); Chloride 100 mmol/L (98-107); Estimated Glomerular Filt Rate > 60.0 mL/min (>60); Glucose 177 mg/dL (80-110); HEMOLYSIS < 15 (0-50); Potassium 4.2 mmol/L (3.4-5.1); Sodium 138 mmol/L (137-145)
== END ==
LOC: LAB 07:23
PROVIDERS: Family Provider Nurse Practitioner Family; PCP Internal Medicine; Visit Provider Internal Medicine
DX: R60.9 Edema, unspecified (principal); Z79.899 Other long term (current) drug therapy
CPT/HCPCS: 36415; 80048

== ENCOUNTER → 2018-07-05 08:14 | Outpatient (REF) | payer MEDICARE, MEDICAID, SELFPAY ==
[2018-07-05 08:53] LABS: Add Manual Diff / Slide Review NO; Basophils Absolute Auto 100 /uL (0-100); Basophils Percent Auto 0.8 % (0-2); Eosinophils Absolute Auto 700 /uL (0-450); Eosinophils Percent Auto 9.2 % (2-4); Hemoglobin 11.3 g/dL (13.5-17.5); Lymphocytes Absolute Auto 2000 /uL (1100-4500); Lymphocytes Percent Auto 25.2 % (25-40); Mean Corpuscular HGB Conc 33.3 % (30-36); Mean Corpuscular Hemoglobin 29.2 PG (26-34); Mean Corpuscular Volume 87.4 fL (80-100); Monocytes Absolute Auto 600 /uL (0-900); Monocytes Percent Auto 7.3 % (3-14); Neutrophils Absolute Auto 4600 /uL (1500-7000); Neutrophils Percent Auto 57.5 % (50-75); Platelet Count 400 X10^3/uL (150-400); Red Blood Cell Count 3.88 X10^6/uL (4.5-5.9); Red Cell Distribution Width 13.6 % (11.6-14.8)
[2018-07-05 09:02] LABS: Hemoglobin A1C% w Est Avg Glu 7.3 % (4.0-6.0)
[2018-07-05 09:21] LABS: BUN Creatinine Ratio 27.1 (6-22); Blood Urea Nitrogen 19 mg/dL (9-20); Calcium 8.5 mg/dL (8.4-10.2); Carbon Dioxide 33 mmol/L (22-32); Chloride 98 mmol/L (98-107); Estimated Glomerular Filt Rate > 60.0 mL/min (>60); Glucose 301 mg/dL (80-110); HEMOLYSIS < 15 (0-50); Sodium 138 mmol/L (137-145)
== END ==
LOC: LAB 08:14
PROVIDERS: Family Provider Nurse Practitioner Family; PCP Internal Medicine; Visit Provider Nurse Practitioner Family
DX: E11.9 Type 2 diabetes mellitus without complications (principal)
CPT/HCPCS: 36415; 80048; 83036; 85025

== ENCOUNTER 2018-08-13 19:10 | Inpatient (IN) | payer MEDICARE, MEDICAID, SELFPAY ==
[2018-08-13] VITALS (8 sets, daily range): BP systolic 141–161; BP diastolic 62–73; PULSE 98–108; RESP 15–26; TEMP 37.2–39.7; O2SAT 91–98; BMI 25.3
--- NOTE | 2018-08-13 19:34 | ED_ITS ---
HPI - General Adult General Chief complaint: Fall Stated complaint: GLF Time Seen by Provider: 08/13/18 19:34 Source: patient and EMS Mode of arrival: EMS History of Present Illness HPI narrative: Patient is a 63-year-old male who was sent over from his care facility for having a fever. He has reported that he sustained a ground level fall yesterday. This was unwitnessed. He is on Plavix but no other blood thinners. The patient reported no injuries from this fall. It was reported by EMS that they were called because the patient had a fever today and he had a red swollen right foot. Patient has had strokes in the past and has difficulty moving his right side especially his right lower extremity. He is a diabetic. Is complaining of pain on his heel. Has seen wound care in the past however the last note in the computer was in March of last year. Somewhat difficult to obtain HPI and review of systems from the patient. He only answers some of the questions that are asked. Related Data Home Medications Medication Instructions Recorded Confirmed Maalox Maximum Strength 354 ml PO PRN PRN #0 06/29/17 08/13/18 acetaminophen 2 tab PO Q4HP PRN #0 06/29/17 08/13/18 aspirin 325 mg PO QDAY #0 06/29/17 08/13/18 atorvastatin 80 mg PO HS #0 06/29/17 08/13/[address] PRN PRN #0 06/29/17 08/13/18 bisacodyl [Fleet Laxative] 5 mg PO PRN PRN #0 06/29/17 08/13/18 clopidogrel 75 mg PO QDAY #0 06/29/17 08/13/18 duloxetine 60 mg PO QDAY #0 06/29/17 08/13/18 levothyroxine 50 mcg PO QAM #0 06/29/17 08/13/18 metoprolol succinate [Toprol XL] 12.5 mg PO QDAY #0 06/29/17 08/13/18 omeprazole 20 mg PO DAILY #0 06/29/17 08/13/18 polyethylene glycol 3350 [Miralax] 17 gm PO QDAY #0 06/29/17 08/13/18 sennosides [senna] 2 tab PO QDAY #0 06/29/17 08/13/18 artificial tears (hypromellose) 2 ea EYE-BOTH .q12 PRN ml 11/25/17 08/13/18 (PF) 0.3 % eye drops baclofen 10 mg tablet 10 mg PO TID 11/25/17 08/13/18 clonazepam 0.5 mg tablet 0.5 mg PO BEDTIME 11/25/17 08/13/18 ibuprofen 400 mg tablet 400 mg PO Q4H PRN 11/25/17 08/13/18 insulin aspart U- 100 100 unit/mL 100 unit SUBCUT DAILY 11/25/17 08/13/18 subcutaneous pen lisinopril 2.5 mg tablet 2.5 mg PO DAILY 11/25/17 08/13/18 nystatin 100,000 unit/gram topical 1 applictn TOP Q12H PRN 11/25/17 08/13/18 powder docusate sodium 2 tab PO BID 03/05/18 08/13/18 magnesium hydroxide [Milk of 30 ml PO DAILY PRN 03/05/18 08/13/18 Magnesia] ammonium lactate 1 applic TOPICAL BID 08/13/18 08/13/18 ascorbic acid (vitamin C) 500 mg PO DAILY 08/13/18 08/13/18 bisacodyl 2 tab PO BEDTIME PRN 08/13/18 08/13/18 calcium carbonate 1,200 mg PO DAILY 08/13/18 08/13/18 cholecalciferol (vitamin D3) 1,000 unit PO DAILY 08/13/18 08/13/18 fluticasone propionate 1 spray INTRANASAL DAILY 08/13/18 08/13/18 furosemide [Lasix] 20 mg PO QAM 08/13/18 08/13/18 guaifenesin [Mucinex] 600 mg PO Q12H 08/13/18 08/13/18 hydroxyzine pamoate 1 - 2 tab PO Q6H PRN 08/13/18 08/13/18 insulin glargine 8 unit SUBCUT BID 08/13/18 08/13/18 lidocaine 1 patch TOPICAL Q12HR 08/13/18 08/13/18 loperamide [Imodium A-D] 2 mg PO DAILY PRN 08/13/18 08/13/18 mirtazapine 15 mg PO DAILY 08/13/18 08/13/18 morphine [MS Contin] 30 mg PO BID 08/13/18 08/13/18 ondansetron 4 mg PO Q4H PRN 08/13/18 08/13/18 oxycodone 3 tab PO Q4H PRN 08/13/18 08/13/18 vitamin B complex [B 1 tab PO DAILY 08/13/18 08/13/18 Complex-Vitamin B12] Allergies Allergy/AdvReac Type Severity Reaction Status Date / Time codeine [CODEINE] AdvReac Unknown nausea Verified 08/13/18 19:51 Review of Systems Constitutional Denies fever(s) and Denies headache(s) ENT Ears, Nose, Mouth, and Throat: Denies headache(s) Cardiovascular Denies chest pain and Denies dyspnea Respiratory Denies dyspnea Gastrointestinal Gastrointestinal: Denies abdominal pain Musculoskeletal Comments: Right foot pain right foot redness and swelling pain in his right heel Integumentary/Breasts Comments: Redness to his right foot Neurologic Denies headache(s) Hematologic/Lymphatic Comments: On Plavix Allergic/Immunologic Denies urticaria PFSH Medical History C3 spinal cord injury (Acute) C4 spinal cord injury (Acute) CVA (cerebral vascular accident) (Acute) Diabetes (Acute) Gastroesophageal reflux disease (Acute) Hyperlipidemia (Acute) Hypertension (Acute) Surgical History No pertinent past surgical history (Acute) Social History (System 10/12/17 @ 15:38 by Andreina Dubois) household members: caregiver Smoking Status: Current every day smoker alcohol intake: never substance use type: does not use Social History household members: caregiver Smoking Status: Current every day smoker alcohol intake: never substance use type: does not use Exam Initial Vital Signs Initial Vital Signs: Vital Signs Temperature 103.4 F H 08/13/18 19:10 Pulse Rate 108 H 08/13/18 19:10 Respiratory Rate 15 08/13/18 19:10 Blood Pressure 161/69 H 08/13/18 19:10 Pulse Oximetry 91 08/13/18 19:10 Const General: well developed, well groomed and No acute distress Orientation: alert, awake and oriented x3 HENMT Head: normal to inspection and normocephalic Resp Effort & Inspection: normal respiratory effort Cardio Rate: tachycardic Rhythm: regular rhythm GI Inspection: non-distended Palpation: soft Skin Other: Patient with redness circumferential to the right foot extending just proximal to the ankle. Also has a superficial ulcer to the heel of his right foot. Neuro General: alert and awake Sensory Exam: other (Decreased sensation to the right foot/right lower extremity not new) Extrem Other: Redness and swelling to the right foot. Patient unable to wiggle his toes on the right foot however he states that this is not new. Patient states that he is at baseline neurologic status Psych Appearance: grossly normal and well kempt Course Orders Ordered: ED Orders 08/13/18 19:36 XR chest 1V Stat 08/13/18 19:41 XR foot RT min 3V Stat 08/13/18 19:50 Blood Culture Stat Complete Blood Count AUTO DIFF Stat Comprehensive Metabolic Panel Stat Lactate (Lactic Acid) Stat Lipase Stat Partial Thromboplastin Time Stat Procalcitonin Stat Prothrombin Time INR Stat 08/13/18 21:06 CT head/brain wo con Stat 08/13/18 22:32 Consult to Discharge Planning Routine 08/13/18 22:50 Sputum Culture Stat 08/13/18 23:08 Consult to Dietitian, Adult Routine 08/13/18 23:31 Consult to Respiratory Therapy Routine 08/13/18 23:35 Consult to Speech Therapy Evaluate & Treat 08/14/18 CT angio abd aorta runoff Stat 08/14/18 00:45 US arterial duplex LE RT Stat 08/14/18 06:00 Consult to Physical Therapy Evaluate & Treat Basic Metabolic Panel DAILY Complete Blood Count AUTO DIFF DAILY 08/15/18 06:00 XR chest 2V Routine Basic Metabolic Panel DAILY Complete Blood Count AUTO DIFF DAILY 08/16/18 06:00 Basic Metabolic Panel DAILY Complete Blood Count AUTO DIFF DAILY Acetaminophen (Tylenol) 650 mg PO Q6HR PRN PRN Reason: As Needed for Fever/Mild Pain Albuterol/Ipratropium (Duoneb) 3 ml INH RTQ4HR PRN PRN Reason: Shortness Of Breath Aspirin (Aspirin) 325 mg PO DAILY [facility] Bisacodyl (Dulcolax) 10 mg PO BEDTIME EUGENE Last Admin: 08/14/18 02:02 Dose: Not Given Bisacodyl (Dulcolax) [address] PRN PRN PRN Reason: Constipation Calcium Carbonate (Calcium) 1,200 mg PO DAILY [facility] Clopidogrel Bisulfate (Plavix) 75 mg PO DAILY [facility] Fluticasone Propionate (Flonase) 1 spray NASAL DAILY [facility] Heparin Sodium (Porcine) (Heparin) 5,000 unit SUBCUT BID [facility] Last Admin: 08/13/18 23:44 Dose: 5,000 unit Piperacillin/Tazobactam/Dextrose (Zosyn) 3.375 gm in 50 mls @ 100 mls/hr IV Q6H [facility] Vancomycin HCl/Dextrose (Vancomycin) 1,000 mg in 200 mls @ 200 mls/hr IV Q12H [facility] Last Admin: 08/14/18 02:04 Dose: Not Given Nicotine (Nicoderm) 21 mg TOP DAILY [facility] Last Admin: 08/14/18 02:22 Dose: 21 mg Ondansetron HCl (Zofran) 4 mg IV Q8HR PRN PRN Reason: Nausea And Vomiting Pantoprazole Sodium (Protonix) 40 mg IV DAILY [facility] Vancomycin HCl (Vancomycin Trough) 1 request MISC NOW ONE Stop: 08/15/18 11:31 Vitamin D (Vitamin D3) 1,000 unit PO DAILY [facility] Discontinued Medications Acetaminophen (Tylenol) 650 mg PO NOW ONE Stop: 08/13/18 19:44 Last Admin: 08/13/18 20:19 Dose: 650 mg Calcium Carbonate (Tums) 500 mg PO Q4HR PRN PRN Reason: Dyspepsia Docusate Sodium (Colace) 100 mg PO BID PRN PRN Reason: Constipation Sodium Chloride (Normal Saline 0.9%) 1,000 mls @ 1,000 mls/hr IV BOLUS ONE Stop: 08/13/18 20:35 Last Admin: 08/13/18 19:57 Dose: Not Given Sodium Chloride (Normal Saline 0.9%) 1,000 mls @ 1,000 mls/hr IV BOLUS ONE Stop: 08/13/18 20:41 Last Admin: 08/13/18 19:58 Dose: Not Given Sodium Chloride (Normal Saline 0.9%) 2,190.84 mls @ 730.28 mls/hr 30 ml/kg infuse over 3 hr (2190.84 ml) IV NOW ONE Stop: 08/13/18 22:52 Last Infusion: 08/13/18 22:26 Dose: 730.28 mls/hr Admin: 08/13/18 20:17 Dose: 730.28 mls/hr Vancomycin HCl 1,500 mg/ (Sodium Chloride) 500 mls @ 333.333 mls/hr IV NOW ONE Stop: 08/13/18 19:55 Last Infusion: 08/13/18 22:26 Dose: 333.333 mls/hr Admin: 08/13/18 21:00 Dose: 333.333 mls/hr Piperacillin/Tazobactam/Dextrose (Zosyn) 3.375 gm in 50 mls @ 100 mls/hr IV NOW ONE Stop: 08/13/18 20:24 Last Infusion: 08/13/18 21:00 Dose: 0 mls/hr Admin: 08/13/18 20:19 Dose: 100 mls/hr Levofloxacin (Levaquin) 750 mg in 150 mls @ 100 mls/hr IV NOW ONE Stop: 08/13/18 23:04 Last Admin: 08/13/18 23:44 Dose: 100 mls/hr Vancomycin HCl (Vancomycin Per Pharmacy) 1 request [facility] NOW ONE Stop: 08/13/18 23:32 Vital Signs - 8 hr 08/13/18 19:10 08/13/18 19:49 08/13/18 20:15 Temperature 103.4 F H 103.4 F H Pulse Rate 108 H 108 H 105 H Respiratory Rate 15 15 26 H Blood Pressure 157/71 H Blood Pressure [Left Arm] 161/69 H 153/64 H Pulse Oximetry 91 91 94 08/13/18 20:19 08/13/18 21:26 08/13/18 21:32 Temperature 103.1 F H 102.2 F H Pulse Rate 106 H Respiratory Rate 26 H Blood Pressure Blood Pressure [Left Arm] 152/62 H Pulse Oximetry 96 08/13/18 22:43 08/13/18 23:56 08/14/18 00:00 Temperature 99.1 F 98.9 F Pulse Rate 104 H 98 H Respiratory Rate 18 20 Blood Pressure 154/73 H 141/72 H Blood Pressure [Left Arm] Pulse Oximetry 98 98 98 Medical Decision Making Lab Data Lab results reviewed: Yes I reviewed the patient's lab results. Result diagrams: 08/13/18 19:50 08/13/18 19:50 Lab Results 08/13/18 08/13/18 08/13/18 Range/Units 19:50 19:50 19:50 WBC 16.3 H (4.5-11.0) X10^3/uL RBC 3.82 L (4.5-5.9) X10^6/uL Hgb 11.2 L (13.5-17.5) g/dL Hct 32.8 L (41-53) % MCV 86.1 (80-100) fL MCH 29.3 (26-34) PG MCHC 34.0 (30-36) % RDW 13.8 (11.6-14.8) % Plt Count 339 (150-400) X10^3/uL Neut % (Auto) 86.1 H (50-75) % Lymph % (Auto) 4.7 L (25-40) % Boundary % (Auto) 8.0 (3-14) % Eos % (Auto) 1.1 L (2-4) % Baso % (Auto) 0.1 (0-2) % Neut # (Auto) 78241 H (8454-6041) /uL Lymph # (Auto) 800 L (0603-5863) /uL Boundary # (Auto) 1300 H (0-900) /uL Eos # (Auto) 200 (0-450) /uL Baso # (Auto) 0 (0-100) /uL PT 13.0 H (10.1-12.7) SECONDS INR 1.1 (0.9-1.3) APTT 30 (26.4-36.2) SECONDS Sodium (137-145) mmol/L Potassium (3.4-5.1) mmol/L Chloride (98-107) mmol/L Carbon Dioxide (22-32) mmol/L BUN (9-20) mg/dL Creatinine (0.66-1.25) mg/dL Estimated GFR (>60) mL/min BUN/Creatinine Ratio (6-22) Glucose (80-110) mg/dL Lactate (0.7-2.1) mmol/L Calcium (8.4-10.2) mg/dL Total Bilirubin (0.2-1.3) mg/dL AST (17-59) IU/L ALT (21-72) IU/L Alkaline Phosphatase (38-126) U/L Total Protein (6.3-8.2) g/dL Albumin (3.5-5.0) g/dL Globulin (1.7-4.1) g/dL Albumin/Globulin Ratio (1.0-2.8) Lipase (23-300) U/L Procalcitonin 0.11 (<0.5) ng/mL 08/13/18 08/13/18 Range/Units 19:50 19:50 WBC (4.5-11.0) X10^3/uL RBC (4.5-5.9) X10^6/uL Hgb (13.5-17.5) g/dL Hct (41-53) % MCV (80-100) fL MCH (26-34) PG MCHC (30-36) % RDW (11.6-14.8) % Plt Count (150-400) X10^3/uL Neut % (Auto) (50-75) % Lymph % (Auto) (25-40) % Boundary % (Auto) (3-14) % Eos % (Auto) (2-4) % Baso % (Auto) (0-2) % Neut # (Auto) (0333-5313) /uL Lymph # (Auto) (8147-8405) /uL Boundary # (Auto) (0-900) /uL Eos # (Auto) (0-450) /uL Baso # (Auto) (0-100) /uL PT (10.1-12.7) SECONDS INR (0.9-1.3) APTT (26.4-36.2) SECONDS Sodium 140 (137-145) mmol/L Potassium 3.7 (3.4-5.1) mmol/L Chloride 99 (98-107) mmol/L Carbon Dioxide 30 (22-32) mmol/L BUN 45 H (9-20) mg/dL Creatinine 1.10 (0.66-1.25) mg/dL Estimated GFR > 60.0 (>60) mL/min BUN/Creatinine Ratio 40.9 H (6-22) Glucose 116 H (80-110) mg/dL Lactate 0.9 (0.7-2.1) mmol/L Calcium 9.2 (8.4-10.2) mg/dL Total Bilirubin 0.4 (0.2-1.3) mg/dL AST 54 (17-59) IU/L ALT 24 (21-72) IU/L Alkaline Phosphatase 141 H (38-126) U/L Total Protein 7.0 (6.3-8.2) g/dL Albumin 3.9 (3.5-5.0) g/dL Globulin 3.1 (1.7-4.1) g/dL Albumin/Globulin Ratio 1.3 (1.0-2.8) Lipase 10 L (23-300) U/L Procalcitonin (<0.5) ng/mL Point of Care Testing Glucose POC 137 Point of care testing: Point of Care Testing Glucose POC 137 Imaging Data Right foot x-ray: Radiologist's impression: [address] [address] XRay Report Signed Patient: Ray Foster [facility]#: [id number] : 6Acct:[id number] Age/Sex: 63 / MDate of Service: 08/13/18 Loc: ED Accession Number: [id number] Procedure: XR foot RT min 3V Ordering Provider: Taye Lund D.O. PROCEDURE: XR FOOT RT MIN 3V INDICATIONS: Cellulitis eval for osteo TECHNIQUE: 3 views of the foot were acquired. COMPARISON: [facility], CR, XR CHEST 1V, 08/13/2018, 19:58. [facility], CR, XR FOOT RT MIN 3V, 06/14/2018, 13:08. FINDINGS: Bones: Old, nondisplaced distal fourth metatarsal fracture. No visualized lucency to suggest osteomyelitis. Soft tissues: No tibiotalar joint effusion. Achilles tendon appears normal. IMPRESSION: No lucency to suggest osteomyelitis. However, as clinically indicated, bone scan may be obtained as it demonstrates increased sensitivity. Dictated by: Jagruti Landeros M.D. on 08/13/2018 at 20:26 Approved by: Jagruti Landeros M.D. on 08/13/2018 at 20:28 Chest x-ray: Radiologist's impression: [address] [address] XRay Report Signed Patient: Ray Foster [facility]#: [id number] : 6Acct:[id number] Age/Sex: 63 / MDate of Service: 08/13/18 Loc: ED Accession Number: [id number] Procedure: XR chest 1V Ordering Provider: Taye Lund D.O. PROCEDURE: XR CHEST 1V INDICATIONS: suspected sepsis TECHNIQUE: One view of the chest was acquired. COMPARISON: [facility], CR, XR CHEST 1V, 03/18/2018, 0:47. FINDINGS: Surgical changes and devices: None. Lungs and pleura: Mild increased pulmonary is present. There is faint area of increased opacity overlying the right middle lobe. Mediastinum: Mediastinal contours appear normal. Heart size is normal. Bones and chest wall: No suspicious bony lesions. Overlying soft tissues appear unremarkable. IMPRESSION: Increased vascular suggestive of edema increased right middle lobe opacity could represent focal edema or developing airspace disease such as atelectasis and/or pneumonia. Dictated by: Jagruti Landeros M.D. on 08/13/2018 at 20:23 Approved by: Jagruti Landeros M.D. on 08/13/2018 at 20:26 CT scan - head: Radiologist's impression: [place] [address] CT Scan Report Signed Patient: Ray Foster [facility]#: [id number] : 6At:[id number] Age/Sex: 63 / MDate of Service: 08/13/18 Loc: ED Accession Number: [id number] Procedure: CT head/brain wo con Ordering Provider: Taye Lund D.O. PROCEDURE: CT HEAD/BRAIN WO CON INDICATIONS: Unwitnessed fall on Plavix TECHNIQUE: Noncontrast 4.5 mm thick angled axial sections acquired from the foramen magnum to the vertex, with coronal and sagittal reformats. For radiation dose reduction, the following was used: automated exposure control, adjustment of mA and/or kV according to patient size. COMPARISON: [facility], CT, HEAD WITHOUT CONTRAST, 05/17/2017, 20:26. FINDINGS: Image quality: Excellent. CSF spaces: Basal cisterns are patent. No extra-axial fluid collections. The ventricles are symmetric in size and shape. Brain: No intracranial bleeds or masses. There is cerebral volume loss for age, with resultant ventricular and sulcal prominence. There are periventricular and deep white matter chronic small vessel ischemic changes. There is intracranial internal carotid artery atherosclerosis. Old lacunar ischemia is present in the left thalamus. Skull and face: Calvarium and visualized facial bones appear intact, without suspicious lesions. Sinuses: Visualized sinuses demonstrates fluid within the left maxillary sinus. Scattered areas of mucosal thickening are present within the remaining sinuses. IMPRESSION: 1. No acute intracranial process. 2. Mild to moderate atrophy and chronic microvascular ischemic changes. 3. Sinus mucosal thickening with left maxillary sinus fluid level suggestive of sinusitis. Dictated by: Jagruti Landeros M.D. on 08/13/2018 at 21:26 Approved by: Jagruti Landeros M.D. on 08/13/2018 at 21:27 MDM Narrative Medical decision making narrative: Patient is febrile and tachycardic upon arrival. Given the appearance of his right lower extremity a suspect a cellulitis. Patient states he is at baseline with his neurologic exam. The chest x-ray is concerning for a right-sided pneumonia. He was in the high 80s to low 90s here in the emergency department. He also seemed to have some difficulty swallowing. Given his fever and the chest x-ray finding there is concern about pneumonia as well. He was given antibiotics and fluids. Discuss ed the case with the night hospitalist to admit for continued evaluation and treatment. Discussed admission with the patient who expressed understanding and agreement plan. Discharge Plan Departure Patient Disposition: Home Clinical Impression: Cellulitis Qualifiers: Site of cellulitis: extremity Site of cellulitis of extremity: lower extremity Laterality: right Qualified Code(s): L03.115 - Cellulitis of right lower limb Pneumonia Qualifiers: Pneumonia type: due to unspecified organism Laterality: right Lung location: middle lobe of lung Qualified Code(s): J18.1 - Lobar pneumonia, unspecified organism Discharge Date/Time: 08/13/18 22:20 Interventions: ED Discharge Assessment Last Done: 08/13/18 22:20 Admit Date/Time: 08/13/18 21:48 Admit Provider: Melanie Selby
--- NOTE | 2018-08-13 19:41 | DI.RAD.S_ITS ---
PROCEDURE: XR FOOT RT MIN 3V INDICATIONS: Cellulitis eval for osteo TECHNIQUE: 3 views of the foot were acquired. COMPARISON: [facility], CR, XR CHEST 1V, 08/13/2018, 19:58. [facility], CR, XR FOOT RT MIN 3V, 06/14/2018, 13:08. FINDINGS: Bones: Old, nondisplaced distal fourth metatarsal fracture. No visualized lucency to suggest osteomyelitis. Soft tissues: No tibiotalar joint effusion. Achilles tendon appears normal. IMPRESSION: No lucency to suggest osteomyelitis. However, as clinically indicated, bone scan may be obtained as it demonstrates increased sensitivity. Dictated by: Jagruti Landeros M.D. on 08/13/2018 at 20:26 Approved by: Jagruti Landeros M.D. on 08/13/2018 at 20:28
[2018-08-13] MEDS: SODIUM CHLORIDE 0.9% 730.28 ML IV (20:17)
[2018-08-13] MEDS: PIPERACILLIN-TAZO 3.375 GM/50 ML FROZ.PIGGY IV (20:19)
[2018-08-13] MEDS: ACETAMINOPHEN 325 MG TABLET 650 MG PO (20:19)
[2018-08-13 20:30] LABS: Add Manual Diff / Slide Review NO; Basophils Absolute Auto 0 /uL (0-100); Basophils Percent Auto 0.1 % (0-2); Eosinophils Absolute Auto 200 /uL (0-450); Eosinophils Percent Auto 1.1 % (2-4); Hematocrit 32.8 % (41-53); Hemoglobin 11.2 g/dL (13.5-17.5); INR 1.1 (0.9-1.3); Lymphocytes Absolute Auto 800 /uL (1100-4500); Lymphocytes Percent Auto 4.7 % (25-40); Mean Corpuscular Hemoglobin 29.3 PG (26-34); Mean Corpuscular Volume 86.1 fL (80-100); Monocytes Absolute Auto 1300 /uL (0-900); Neutrophils Absolute Auto 14100 /uL (1500-7000); Neutrophils Percent Auto 86.1 % (50-75); Platelet Count 339 X10^3/uL (150-400); Red Blood Cell Count 3.82 X10^6/uL (4.5-5.9); Red Cell Distribution Width 13.8 % (11.6-14.8); White Blood Cell Count 16.3 X10^3/uL (4.5-11.0)
[2018-08-13 20:32] LABS: PTT Partial Thromboplastin Tim 30 SECONDS (26.4-36.2)
[2018-08-13 20:33] LABS: Lactate (Lactic Acid) 0.9 mmol/L (0.7-2.1)
[2018-08-13 20:46] LABS: Alanine Aminotransferase 24 IU/L (21-72); Albumin 3.9 g/dL (3.5-5.0); Albumin Globulin Ratio 1.3 (1.0-2.8); Alkaline Phosphatase 141 U/L (38-126); Aspartate Aminotransferase 54 IU/L (17-59); BUN Creatinine Ratio 40.9 (6-22); Bilirubin Total 0.4 mg/dL (0.2-1.3); Blood Urea Nitrogen 45 mg/dL (9-20); Calcium 9.2 mg/dL (8.4-10.2); Carbon Dioxide 30 mmol/L (22-32); Chloride 99 mmol/L (98-107); Estimated Glomerular Filt Rate > 60.0 mL/min (>60); Globulin 3.1 g/dL (1.7-4.1); Glucose 116 mg/dL (80-110); HEMOLYSIS 15 (0-50); Lipase 10 U/L (23-300); Potassium 3.7 mmol/L (3.4-5.1); Sodium 140 mmol/L (137-145)
[2018-08-13 21:00] LABS: Procalcitonin 0.11 ng/mL (<0.5)
[2018-08-13] MEDS: VANCOMYCIN 1,500 MG in SODIUM CHLORIDE 0.9% 500 ML 333.333 ML IV (21:00)
--- NOTE | 2018-08-13 21:06 | DI.CT.S_ITS ---
PROCEDURE: CT HEAD/BRAIN WO CON INDICATIONS: Unwitnessed fall on Plavix TECHNIQUE: Noncontrast 4.5 mm thick angled axial sections acquired from the foramen magnum to the vertex, with coronal and sagittal reformats. For radiation dose reduction, the following was used: automated exposure control, adjustment of mA and/or kV according to patient size. COMPARISON: [facility], CT, HEAD WITHOUT CONTRAST, 05/17/2017, 20:26. FINDINGS: Image quality: Excellent. CSF spaces: Basal cisterns are patent. No extra-axial fluid collections. The ventricles are symmetric in size and shape. Brain: No intracranial bleeds or masses. There is cerebral volume loss for age, with resultant ventricular and sulcal prominence. There are periventricular and deep white matter chronic small vessel ischemic changes. There is intracranial internal carotid artery atherosclerosis. Old lacunar ischemia is present in the left thalamus. Skull and face: Calvarium and visualized facial bones appear intact, without suspicious lesions. Sinuses: Visualized sinuses demonstrates fluid within the left maxillary sinus. Scattered areas of mucosal thickening are present within the remaining sinuses. IMPRESSION: 1. No acute intracranial process. 2. Mild to moderate atrophy and chronic microvascular ischemic changes. 3. Sinus mucosal thickening with left maxillary sinus fluid level suggestive of sinusitis. Dictated by: Jagruti Landeros M.D. on 08/13/2018 at 21:26 Approved by: Jagruti Landeros M.D. on 08/13/2018 at 21:27
--- NOTE | 2018-08-13 21:28 | PC.NURSE ---
2104 Spoke with [facility] nurse and got detailed report of patient's fall yesterday. It was unwitnessed, patient stated he slid out of wheelchair in [place] and was found by staff and assisted back into chair. Unclear if prolonged downtime. Nurse states he is mentating at baseline. He is on Plavix. Notified provider. Modified trauma called and head CT ordered.
--- NOTE | 2018-08-13 22:51 | P.HP_ITS ---
History of Present Illness Date Patient Seen: 08/13/18 Time Patient Seen: 22:48 Chief complaint: GLF Narrative: Patient is an unreliable historian. HPI obtained via direct interview of the patient and his mother. The patient is a 63-year-old male with PMHx of HTN, ICM EF 50-55%, DM 2T w/ complications (ie retinopathy and non-healing diabetic foot ulcer), HLD, CVA w/ residula deficits (right hemiplegia; on Plavix), CAD (h/o LA, s/p stenting), CKD III, PVD (h/o SFA stent), carotid artery disease (h/o CEA x2), cervical injury (s/p spinal fusion), and GERD. The patient is a 63-year-old male who is a resident of [facility], he was sent over to the ED out of concern for fever. Symptom onset is sudden. Associated symptoms included right lower extremity edema and erythema. Known to have prior history of slow healing diabetic foot ulcers. Currently has a heel ulcer, but denies pain or drainage from the site of the ulcer. Recently known to have been struggling with an upper respiratory symptoms for number of months, mainly with symptoms of sinus congestion, rhinitis, and postnasal drip. On 08/12/2018 reports felling out of the wheelchair while reaching for cigarette. He is a lifelong and current 1ppd smoker. Reports falling onto his left knee, denies head injury and loss of consciousness. Denies new extremity, back, and hip pain. patient's overall mobility is diminished, he is essentially wheelchair-bound and has right hemiplegia from previous CVA. He is on Plavix. Two days ago patient reports having oral surgery and extraction of 7 teeth. Denies chest pain, palpitations, dizziness/lightheadedness, syncopal events, abdominal pain, dysuria, or blood loss in urine/stool. Denies malaise and myopathy. ED Work-Up XR Chest, showed increased vascular suggestive of edema, increased RML opacity, could this represent focal edema or developing airspace disease such as atelectasis and/or pneumonia. XR Foot (right), no lucency to suggest osteomyelitis. CT Head, no acute intracranial process; [id number] atrophy and chronic microvascular ischemic changes; sinus mucosal thickening w/ left maxillary sinus fluid level suggestive of sinusitis. Patient History Medical History C3 spinal cord injury (Acute) C4 spinal cord injury (Acute) CVA (cerebral vascular accident) (Acute) Diabetes (Acute) Gastroesophageal reflux disease (Acute) Hyperlipidemia (Acute) Hypertension (Acute) Surgical History No pertinent past surgical history (Acute) Social History (System 10/12/17 @ 15:38 by Andreina Dubois) household members: caregiver Smoking Status: Current every day smoker alcohol intake: never substance use type: does not use Family & Social History Family History Mother Cancer Father Lung disease Social History: household members caregiver Safety & Behavioral: Feels Safe in Current Yes Environment Tobacco & Substance use: Smoking Status Current every day smoker, 1 pack per day, has been smoking since age 15 alcohol intake never alcohol intake frequency a few times a week Substance Use Type does not use Meds Home Medications Medication Instructions Recorded Confirmed Type Maalox Maximum Strength 354 ml PO PRN PRN #0 06/29/17 08/13/18 History acetaminophen 2 tab PO Q4HP PRN #0 06/29/17 08/13/18 History aspirin 325 mg PO QDAY #0 06/29/17 08/13/18 History atorvastatin 80 mg PO HS #0 06/29/17 08/13/18 History bisacodyl 10 mg SD PRN PRN #0 06/29/17 08/13/18 History bisacodyl [Fleet Laxative] 5 mg PO PRN PRN #0 06/29/17 08/13/18 History clopidogrel 75 mg PO QDAY #0 06/29/17 08/13/18 History duloxetine 60 mg PO QDAY #0 06/29/17 08/13/18 History levothyroxine 50 mcg PO QAM #0 06/29/17 08/13/18 History metoprolol succinate [Toprol XL] 12.5 mg PO QDAY #0 06/29/17 08/13/18 History omeprazole 20 mg PO DAILY #0 06/29/17 08/13/18 History polyethylene glycol 3350 [Miralax] 17 gm PO QDAY #0 02/27/18 04/13/19 History sennosides [senna] 2 tab PO QDAY #0 06/29/17 08/13/18 History artificial tears (hypromellose) 2 ea EYE-BOTH .q12 PRN ml 11/25/17 08/13/18 Hi story (PF) 0.3 % eye drops baclofen 10 mg tablet 10 mg PO TID 11/25/17 08/13/18 History clonazepam 0.5 mg tablet 0.5 mg PO BEDTIME 11/25/17 08/13/18 History ibuprofen 400 mg tablet 400 mg PO Q4H PRN 11/25/17 08/13/18 History insulin aspart U- 100 100 unit/mL 100 unit SUBCUT DAILY 11/25/17 08/13/18 History subcutaneous pen lisinopril 2.5 mg tablet 2.5 mg PO DAILY 11/25/17 08/13/18 History nystatin 100,000 unit/gram topical 1 applictn TOP Q12H PRN 11/25/17 08/13/18 History powder docusate sodium 2 tab PO BID 03/05/18 08/13/18 History magnesium hydroxide [Milk of 30 ml PO DAILY PRN 03/05/18 08/13/18 History Magnesia] ammonium lactate 1 applic TOPICAL BID 08/13/18 08/13/18 History ascorbic acid (vitamin C) 500 mg PO DAILY 08/13/18 08/13/18 History bisacodyl 2 tab PO BEDTIME PRN 08/13/18 08/13/18 History calcium carbonate 1,200 mg PO DAILY 08/13/18 08/13/18 History cholecalciferol (vitamin D3) 1,000 unit PO DAILY 08/13/18 08/13/18 History fluticasone propionate 1 spray INTRANASAL DAILY 08/13/18 08/13/18 History furosemide [Lasix] 20 mg PO QAM 08/13/18 08/13/18 History guaifenesin [Mucinex] 600 mg PO Q12H 08/13/18 08/13/18 History hydroxyzine pamoate 1 - 2 tab PO Q6H PRN 08/13/18 08/13/18 History insulin glargine 8 unit SUBCUT BID 08/13/18 08/13/18 History lidocaine 1 patch TOPICAL Q12HR 08/13/18 08/13/18 History loperamide [Imodium A-D] 2 mg PO DAILY PRN 08/13/18 08/13/18 History mirtazapine 15 mg PO DAILY 08/13/18 08/13/18 History morphine [MS Contin] 30 mg PO BID 08/13/18 08/13/18 History ondansetron 4 mg PO Q4H PRN 08/13/18 08/13/18 History oxycodone 3 tab PO Q4H PRN 08/13/18 08/13/18 History vitamin B complex [B 1 tab PO DAILY 08/13/18 08/13/18 History Complex-Vitamin B12] Allergies Allergy/AdvReac Type Severity Reaction Status Date / Time codeine [CODEINE] AdvReac Unknown nausea Verified 08/13/18 19:51 Review of Systems Review of Systems All systems reviewed & are unremarkable except as noted in HPI and below Exam Vital Signs (past 8 hours): - 08/13/18 19:10 08/13/18 19:49 08/13/18 20:15 Temperature 103.4 F H 103.4 F H Pulse Rate 108 H 108 H 105 H Respiratory Rate 15 15 26 H Blood Pressure 157/71 H Blood Pressure [Left Arm] 161/69 H 153/64 H Pulse Oximetry 91 91 94 08/13/18 20:19 08/13/18 21:26 08/13/18 21:32 Temperature 103.1 F H 102.2 F H Pulse Rate 106 H Respiratory Rate 26 H Blood Pressure Blood Pressure [Left Arm] 152/62 H Pulse Oximetry 96 08/13/18 22:43 Temperature 99.1 F Pulse Rate 104 H Respiratory Rate 18 Blood Pressure 154/73 H Blood Pressure [Left Arm] Pulse Oximetry 98 Oxygen Delivery Method Nasal Cannula Oxygen Flow Rate 3 Narrative Exam Narrative: Constitutional: NAD Neurologic: Alert, oriented to person, place, season, reason for hospital admission and date of , noted a year of 2020 Right hemiplegia, he is able to lift right upper extremity slightly and slightly squeeze hand A degree of dysarthria noted, no aphasia, appears to understand and respond to content appropriately Head: NC, AT Eyes: Extraocular movements intact, no drainage Ears: external ears normal, no otorrhea Nose: external nose normal, no rhinorrhea or epistaxis Throat: DRY MM, oropharynx w/o exudate Neck: no masses, lymphadenopathy, or JVD Chest / Respiratory: equal chest rise, no dyspnea or tachypnea, breath sounds are coarse, on 3 L of O2 Heart / CV: S1S2, no murmur Abdomen: round, NT, ND, + BS, no organomegaly Peripheral / Vascular: Right foot with edema and erythema, right toe with area of cyanosis, Musc: full ROM of upper and lower extremities, adequate muscle tone and bulk Skin: no ecchymosis or suspicious lesions / ulcers Objective Labs Result Diagrams: 08/14/18 04:51 08/14/18 04:51 Labs: Laboratory Results - last 24 hr 08/13/18 08/13/18 08/13/18 19:50 19:50 19:50 WBC 16.3 H RBC 3.82 L Hgb 11.2 L Hct 32.8 L MCV 86.1 MCH 29.3 MCHC 34.0 RDW 13.8 Plt Count 339 Neut % (Auto) 86.1 H Lymph % (Auto) 4.7 L [place] % (Auto) 8.0 Eos % (Auto) 1.1 L Baso % (Auto) 0.1 Neut # (Auto) 29483 H Lymph # (Auto) 800 L [place] # (Auto) 1300 H Eos # (Auto) 200 Baso # (Auto) 0 PT 13.0 H INR 1.1 APTT 30 Sodium Potassium Chloride Carbon Dioxide BUN Creatinine Estimated GFR BUN/Creatinine Ratio Glucose Lactate Calcium Total Bilirubin AST ALT Alkaline Phosphatase Total Protein Albumin Globulin Albumin/Globulin Ratio Lipase Procalcitonin 0.11 08/13/18 08/13/18 19:50 19:50 WBC RBC Hgb Hct MCV MCH MCHC RDW Plt Count Neut % (Auto) Lymph % (Auto) [place] % (Auto) Eos % (Auto) Baso % (Auto) Neut # (Auto) Lymph # (Auto) [place] # (Auto) Eos # (Auto) Baso # (Auto) PT INR APTT Sodium 140 Potassium 3.7 Chloride 99 Carbon Dioxide 30 BUN 45 H Creatinine 1.10 Estimated GFR > 60.0 BUN/Creatinine Ratio 40.9 H Glucose 116 H Lactate 0.9 Calcium 9.2 Total Bilirubin 0.4 AST 54 ALT 24 Alkaline Phosphatase 141 H Total Protein 7.0 Albumin 3.9 Globulin 3.1 Albumin/Globulin Ratio 1.3 Lipase 10 L Procalcitonin Assessment & Plan Assessment & Plan narrative: Sepsis, acute, present on admission, active multi-factorial ? potential sources sinusitis vs pneumonia (CAP vs aspiration) vs cellulitis vs oral cavity (s/p extraction of 7 teeth on 08/11) + fever, + tachycardia, + acute organ failure - i.e. respiratory and renal. No hypotension. - blood cx x2, collected in the ED, results pending - will need f/u - ua w/ c&s, if indicated - sputum cx - IVF resuscitation, 30 ml/kg, was started ED. Once finished will hold off on further IV fluids. - empiric therapy with levofloxacin, vancomycin, and Zosyn Acute respiratory failure with hypoxia, present on admission, active Potentially in the setting of acute PNA - on empiric therapy - supplemental O2, duo-neb tx Right middle lobe pneumonia, acute, present on admission, active Community acquired vs. Aspiration ? w/ sepsis symptoms RF: Resident of a LTC facility, prior CVA w/ right hemiplegia, recent oral surgery w/ anesthesia, - blood cx pending - ua with c&s, as indicated; urine AGs, and sputum cx - repeat CXR (2-view) on 08/15/18 - empiric therapy w/ zosyn RLE cellulitis, acute, present on admission, active h/o poorly healing diabetic foot ulcers; small heel ulcer present, non-draining not entirely clear if patient has had a prior h/o MRSA infection; however, denies at present time - empiric therapy w/ vancomycin - asked nurses to outline demarcated area of inflammation, monitor for spread - neurovascular checks q.4 hours - double right lower extremity pulse Limb Ischemia, acute, present on admission, active on exam unable to palpate DP or PT pulses, also absent or significantly diminished sensation mid-foot to toes (right) right toe, ulcer ? unstageable ; toes (only) are cool to touch and with degree of cyanosis RF: poorly controlled DM and lifelong tobacco dependence with current daily use. PMHx of PAD w/ prior vascular stent BLE Arterial U/S, 08/13/2016 High-grade 50-99% stenosis of the mid right superficial femoral artery with occlusion of the distal right superficial femoral artery. There is reconstitution at the level of the popliteal artery with diminished flow distally 20-49% focal stenosis involving the mid left superficial femoral artery. - asked nurses to dopple peripheral pulses, re: difficulty palpating DP and PT pulse, diminished sensation, and questionable cyanosis nurses unable to double DP and PT pulse of RLE; I have attempted to do so myself, also unable - STAT Arterial U/S of RLE results: occluded SFA to popliteal artery stent with blunted monophasic waveforms in the posterior tibial artery - STAT CTA Abdomen w/ run off in lieu of abnormal u/s results: Occluded right SFA stent with very minimal perfusion to the right foot, severe atherosclerotic disease, non-displaced fracture of the proximal right tibia There is a mention of attenuated flow within the popliteal artery secondary to geniculate collaterals Difficult to assess perfusion to the foot is there is calcification of the anterior and posterior tibial arteries Acute kidney injury, present on admission, active Baseline creatinine 0.7-0.8, creatinine on presentation is 1.1, likely in the setting of underlying infection - trend renal function and IV fluids - treat underlying pathology - avoid nephrotoxin agents and renal hypoperfusion sCr 1.1, will allow for CTA with contrast and monitor for renal function closely afterwards Non-displaced Tibia Fracture (right), subacute, present on admission It appears that patient has sustained this fracture in May or June of 2018, however no intervention has been done - consult orthopedic surgery for evaluation Dysphasia, acute, present on admission, active - NPO status - consult speech therapy, re: swallow evaluation, c/o dysphasia - hold oral home medications, in the interim will order comparable IV alternative (if available) DM 2T, chronic condition, present on admission, stable DM uncontrolled / mildly above goal - A1C 7.3 (07/2018), insulin-dependent - keep NPO out of concern for aspiration, glucose checks Q6H while NPO - SSI level PRN [facility] Echo, 10/19/2017: LVEF 50-55%. LV with normal size and improved function. RV normal in size and function. No significant valvular pathology. - No s/s of volume axis at time of exam, will monitor for fluid overload CVA with residual deficits of right hemiplegia, chronic condition, present on admission, stable - resume PT regimen of statin and Plavix CAD with prior history of LA and stenting, chronic condition, present on admission, stable No active chest pain or ACS like symptoms - resume [employer] Plavix, statin, and beta-ashley (when able to PO / after swallow eval) Essential hypertension, chronic condition, present admission, stable - resume [employer] antihypertensive regimen, trend BP (when able to take PO / after swallow eval), if BP elevated will consider as needed IV antihypertensive Hypothyroidism, chronic condition, present admission, stable - resume [employer] levothyroxine regimen (when able to take PO / after swallow eval) Code status discussed with patient. Patient wishes to be full code. If unable to make his own decisions or is in critical state, designates his brother as a surrogate decision maker. Home medications reviewed and reconciled accordingly. VTE Heparin
--- NOTE | 2018-08-13 23:11 | PC.NURSE ---
Pt to room 212 via stretcher from [facility]. Accompanied by stepmotherFaviola. Staff assist x 3 to transfer pt from stretcher to bed. Speech is garbled, but pt is able to speak for self and stepmother encourages this. Right foot dorsal aspect is edematous and erythemic. Elevated on pillows x 2 with reddened right heel elevated. BOO Navarro, in to see patient.
[2018-08-13] MEDS: HEPARIN 5,000 UNIT/ML VIAL 5000 UNIT SUBCUT (23:44)
[2018-08-13] MEDS: levoFLOXacin 750 MG/150 ML PIGGYBACK 100 MG IV (23:44)
[2018-08-14] VITALS: O2SAT 98
--- NOTE | 2018-08-14 | DI.CT.S_ITS ---
PROCEDURE: CT ANGIO ABD AORTA RUNOFF INDICATIONS: occlusion on RLE u/s, pvd, no pulse TECHNIQUE: After the administration of intravenous contrast, 2.5 mm sections acquired from T12 to the feet, with optional delayed image acquisition from the knees to the feet. 3-dimensional maximum intensity projection (MIP) coronal and sagittal reformats, and/or 3-dimensional volume rendering reformatting was then performed. For radiation dose reduction, the following was used: automated exposure control. COMPARISON: [facility], CR, XR CHEST 1V, 08/13/2018, 19:58. [facility], US, ARTERIAL LOW.EXTREM.BILATERAL, 08/13/2016, 13:26. [facility], CT, CT ABDOMEN PELVIS W CON, 03/05/2018, 20:39. [facility], US, US ARTERIAL DUPLEX LE RT, 08/14/2018, 1:20. FINDINGS: Image quality: Excellent. Extravascular tissues: Lung bases are abnormal with a moderate degree of alveolar infiltration at the right mid and lower lung and mild such airspace disease at the posterior left lung base, consistent with bilateral pneumonia. Heart size is normal. Liver is normal in size and enhancement. Gallbladder appears normal. Biliary system is non dilated. Pancreas enhances normally. Spleen is normal in size and enhancement. No adrenal nodules. Kidneys are normal in size and enhancement, without hydronephrosis. Non opacified bowel loops demonstrate normal wall thickness and enhancement. No free fluid or air. No retroperitoneal or mesenteric adenopathy. No ventral hernias. Bladder wall thickness is normal. No inguinal hernias or adenopathy. No suspicious bony lesions. No vertebral body compression fractures. Abdominal aorta: Moderate atherosclerotic calcific and soft plaquing without aneurysm or dissection. Right lower extremity: Asymmetric calcific plaque is present involving the common iliac arteries bilaterally, greater on the right than the left, with areas of approximately 70% stenosis involving the right iliac artery and this pattern of asymmetric calcific stenosis extends through the external iliac artery greater on the right than the left, with visualized occlusion of the superficial femoral artery just beyond its origin, in this patient with stent radiodensity extending through the superficial femoral artery over its entire course into the popliteal artery. Reperfusion of flow within the popliteal artery through collateral vessels appears present, but this vessel is diminutive in size when compared to a more normal appearance on the left. Reperfusion of flow into the trifurcation vessels appears present, small vessel size, with what appears to be patent flow crossing the ankle into the foot through both the posterior tibial and anterior tibial artery extensions. Left lower extremity: Mild atherosclerotic irregularity at the left common and external iliac artery with patent flow through the common femoral artery, superficial femoral artery, and profunda femoris. Mild atherosclerotic irregularity is seen within the superficial femoral artery is patent the popliteal artery shows no significant stenosis. 3 vessel runoff crosses into the calf and two-vessel runoff crosses into the foot on the left. IMPRESSION: Asymmetric atherosclerotic change greater on the right than the left with occlusion of a superficial femoral arterial stent that crosses from the origin of this vessel inferiorly to the popliteal artery. The popliteal artery on the right reperfuses by collateral flow, but is relatively small in size as are the trifurcation vessels feeding into the calf. As noted there does appear to be patent flow from this collateral reperfusion source on the right with two-vessel runoff, diminutive in size, crossing the ankle into the foot. Atherosclerotic disease is relatively prominent in this patient, and therefore the perfusion pressure into the right foot likely is significantly reduced from normal. Left lower extremity perfusion appears much less involved by atherosclerotic stenosis, with three-vessel runoff crossing into the catheter and two-vessel runoff crossing into the left foot with no area of occlusion seen. There is an unexpected finding of bibasilar pneumonia, right greater than left. Please correlate clinically given this finding. The extent of pneumonia appears to have worsened from the comparison plain film imaging for. Dictated by: Harish Kumar M.D. on 08/14/2018 at 11:55 Approved by: Harish Kumar M.D. on 08/14/2018 at 12:24
--- NOTE | 2018-08-14 00:45 | DI.US.S_ITS ---
PROCEDURE: US ARTERIAL DUPLEX LE RT INDICATIONS: NO PEDAL PULSE; HX PVD TECHNIQUE: Color and pulse Doppler interrogation was performed of the right lower extremity arterial system, with image documentation. COMPARISON: [facility], , ARTERIAL LOW.EXTREM.BILATERAL, 08/13/2016, 13:26. FINDINGS: Right lower extremity evaluation was performed, documenting biphasic flow within the right common femoral artery with flow velocity 169 cm/s. This extends also into the profunda femoris artery with velocity up to 214 cm/s. The superficial femoral [id number] artery stent is visualized as occluded throughout its course. No flow extends into the popliteal artery. Monophasic flow reconstitutes via collateral vessels in the posterior tibial artery with reduced flow velocity 38 cm/s. IMPRESSION: Superficial femoral [id number] artery stent thrombosis, with reconstitution of flow across this area of arterial occlusion by collateral vessels resulting in monophasic reduced flow velocity the into the posterior tibial artery at the right lower extremity. Dictated by: Harish Kumar M.D. on 08/14/2018 at 10:40 Approved by: Harish Kumar M.D. on 08/14/2018 at 10:43
--- NOTE | 2018-08-14 01:19 | PC.NURSE ---
0000 Doppler RLE pedal pulses unable to hear or palpate any pulses. Pt. reported & states I broke my Rt. foot. Rt. foot noted cyanosis. Placed blue boots to both feet. Pt. denies any pain, NPO @ this time for pending speech & swallow in the morning. Will cont. POC & monitor.
[2018-08-14] MEDS: NICOTINE 21 MG PATCH TOP (02:22)
[2018-08-14 03:00] VITALS: BP 148/67; PULSE 98; RESP 24; TEMP 37.4; O2SAT 98
[2018-08-14] MEDS: SODIUM CHLORIDE 0.9% 1,000 ML 75 ML IV (03:25)
[2018-08-14] MEDS: PIPERACILLIN-TAZO 3.375 GM/50 ML FROZ.PIGGY IV (03:49)
[2018-08-14 04:00] VITALS: O2SAT 97
[2018-08-14 04:23] LABS: Bacteria Urine None Seen; WBC Urine None Seen (0-5/HPF)
[2018-08-14 04:24] LABS: Appearance Urine UA CLEAR; Bilirubin Urine UA NEGATIVE (NEGATIVE); Color Urine UA YELLOW; Glucose Urine UA NEGATIVE (Negative); Ketones Urine UA TRACE (NEGATIVE); Leukocyte Esterase Urine UA NEGATIVE (NEGATIVE); Nitrite Urine UA NEGATIVE (Negative); Occult Blood Urine UA NEGATIVE (Negative); Protein Urine UA TRACE (Negative); Specific Gravity Urine UA 1.015 (1.000-1.035); Urobilinogen Urine UA 0.2 E.U./dL (0.2); pH Urine UA 5.5 (4.5-8.0)
[2018-08-14 04:36] LABS: Culture Indicated Urine Cult Not Indicated; RBC Urine 0-1/HPF (0-5/HPF)
[2018-08-14 05:14] LABS: Add Manual Diff / Slide Review NO; Basophils Absolute Auto 0 /uL (0-100); Basophils Percent Auto 0.1 % (0-2); Eosinophils Absolute Auto 100 /uL (0-450); Eosinophils Percent Auto 0.7 % (2-4); Hematocrit 30.4 % (41-53); Hemoglobin 10.4 g/dL (13.5-17.5); Lymphocytes Absolute Auto 900 /uL (1100-4500); Lymphocytes Percent Auto 5.9 % (25-40); Mean Corpuscular HGB Conc 34.2 % (30-36); Mean Corpuscular Hemoglobin 29.6 PG (26-34); Mean Corpuscular Volume 86.6 fL (80-100); Monocytes Absolute Auto 1300 /uL (0-900); Monocytes Percent Auto 8.5 % (3-14); Neutrophils Absolute Auto 12700 /uL (1500-7000); Neutrophils Percent Auto 84.8 % (50-75); Platelet Count 308 X10^3/uL (150-400); Red Blood Cell Count 3.51 X10^6/uL (4.5-5.9)
[2018-08-14 05:19] LABS: Blood Urea Nitrogen 24 mg/dL (9-20); Calcium 8.4 mg/dL (8.4-10.2); Carbon Dioxide 29 mmol/L (22-32); Chloride 104 mmol/L (98-107); Estimated Glomerular Filt Rate > 60.0 mL/min (>60); Glucose 172 mg/dL (80-110); HEMOLYSIS < 15 (0-50); Sodium 140 mmol/L (137-145)
--- NOTE | 2018-08-14 06:34 | PM.DS.1 ---
History of Present Illness Chief complaint: GLF Narrative: Patient is an unreliable historian. HPI obtained via direct interview of the patient and his mother. The patient is a 63-year-old male with PMHx of HTN, ICM EF 50-55%, DM 2T w/ complications (ie retinopathy and non-healing diabetic foot ulcer), HLD, CVA w/ residula deficits (right hemiplegia; on Plavix), CAD (h/o CA, s/p stenting), CKD III, PVD (h/o SFA stent), carotid artery disease (h/o CEA x2), cervical injury (s/p spinal fusion), and GERD. The patient is a 63-year-old male who is a resident of [facility], he was sent over to the ED out of concern for fever. Symptom onset is sudden. Associated symptoms included right lower extremity edema and erythema. Known to have prior history of slow healing diabetic foot ulcers. Currently has a heel ulcer, but denies pain or drainage from the site of the ulcer. Recently known to have been struggling with an upper respiratory symptoms for number of months, mainly with symptoms of sinus congestion, rhinitis, and postnasal drip. On 08/12/2018 reports felling out of the wheelchair while reaching for cigarette. He is a lifelong and current 1ppd smoker. Reports falling onto his left knee, denies head injury and loss of consciousness. Denies new extremity, back, and hip pain. patient's overall mobility is diminished, he is essentially wheelchair-bound and has right hemiplegia from previous CVA. He is on Plavix. Two days ago patient reports having oral surgery and extraction of 7 teeth. Denies chest pain, palpitations, dizziness/lightheadedness, syncopal events, abdominal pain, dysuria, or blood loss in urine/stool. Denies malaise and myopathy. XR Chest, showed increased vascular suggestive of edema, increased RML opacity, could this represent focal edema or developing airspace disease such as atelectasis and/or pneumonia. XR Foot (right), no lucency to suggest osteomyelitis. CT Head, no acute intracranial process; [id number] atrophy and chronic microvascular ischemic changes; sinus mucosal thickening w/ left maxillary sinus fluid level suggestive of sinusitis. Patient was admitted and treated for sepsis, right foot cellulitis, and RML PNA. Noted to have absence of DP and PT pulses, also unable to dopple. Cyanosis in the area of great toe noted. Following imaging ordered, RLE U/S - occluded SFA to popliteal artery CTA abdomen w/ run-off, occluded right SFA stent w/ minimal perfusion to the right foot Overnight there has been increase in the cyanosis right toe. In addition to mottling the remaining digits. Patient has absence of sensation. Mildly evident. Patient in need evaluation by vascular surgery, spoke with Dr. Corrales w/ vascular surgery in [place], accepted patient to evaluate for revascularization. Discussed case with the hospitalist service, Dr. Mcmillan, who also accepted the patient. Patient will be transferred to [place] via direct admission, accepted by hospitalist service, with consult to vascular surgery Discharge Providers Date of admission: 08/13/18 21:48 Discharge Date: 08/14/18 Primary care physician: Linda Denise MD Consults: 08/13/18 22:32 Consult to Discharge Planning Routine Comment: 08/13/18 23:08 Consult to Dietitian, Adult Routine Comment: Reason For Exam: pt stated decrease in appetite with weight loss 08/13/18 23:31 Consult to Respiratory Therapy Routine Comment: Physician Instructions: Evaluate and treat 08/13/18 23:35 Consult to Speech Therapy Evaluate & Treat Comment: swallow evaluation, c/o dysphagia Physician Instructions: Evaluate and treat 08/14/18 06:00 Consult to Physical Therapy Evaluate & Treat Comment: generalized weakness, inpatient r/t deconditioning Physician Instructions: Evaluate and Treat Discharge provider: BOO Yousif Summary Discharge Diagnosis: Sepsis Right foot cellulitis Right middle lobe pneumonia Limb ischemia Nondisplaced fracture of proximal right tibia CVA with complications of hemiplegia CAD with prior CA and stenting Essential hypertension Diabetes mellitus type 2, insulin-dependent Tobacco dependence Status at Discharge Cognitive/behavioral status at discharge: oriented and at baseline, oriented Functional status at discharge: wheelchair bound Overall status at discharge: patient is progressing back to baseline Time Spent with Patient Greater than 30 minutes Time spent discussing smoking cessation with patient: 3 to 10 minutes Exam Vital Signs (past 8 hours): - 08/13/18 22:43 08/13/18 23:56 08/14/18 00:00 Temperature 99.1 F 98.9 F Pulse Rate 104 H 98 H Respiratory Rate 18 20 Blood Pressure 154/73 H 141/72 H Pulse Oximetry 98 98 98 08/14/18 03:00 08/14/18 04:00 Temperature 99.4 F Pulse Rate 98 H Respiratory Rate 24 Blood Pressure 148/67 H Pulse Oximetry 98 97 Oxygen Delivery Method Nasal Cannula Oxygen Flow Rate 2 Narrative Exam Narrative: Awake and alert, no acute distress Right hemiplegia, no facial asymmetry, speech improved from previous, able to manage secretions Gaze conjugate, pupils equal and reactive Normocephalic atraumatic Hearing acuity intact, no drainage noted Course, 2 L of oxygen, no dyspnea or tachypnea at rest S1-S2, no murmur Soft, nontender, nondistended Right DP and PT pulses not palpable, also unable to double Cyanosis of the right toe has progressed from last night, there is mild lying of the toes Degree of edema and erythema in RLE decreased Left lower extremity intact, DP and PT, pulses doppleable Objective Labs Result Diagrams: 08/14/18 04:51 08/14/18 04:51 Labs: Laboratory Results - last 24 hr 08/13/18 08/13/18 08/13/18 19:50 19:50 19:50 WBC 16.3 H RBC 3.82 L Hgb 11.2 L Hct 32.8 L MCV 86.1 MCH 29.3 MCHC 34.0 RDW 13.8 Plt Count 339 Neut % (Auto) 86.1 H Lymph % (Auto) 4.7 L [place] % (Auto) 8.0 Eos % (Auto) 1.1 L Baso % (Auto) 0.1 Neut # (Auto) 51326 H Lymph # (Auto) 800 L [place] # (Auto) 1300 H Eos # (Auto) 200 Baso # (Auto) 0 PT 13.0 H INR 1.1 APTT 30 Sodium Potassium Chloride Carbon Dioxide BUN Creatinine Estimated GFR BUN/Creatinine Ratio Glucose Lactate Calcium Total Bilirubin AST ALT Alkaline Phosphatase Total Protein Albumin Globulin Albumin/Globulin Ratio Lipase Procalcitonin 0.11 Urine Color Urine Appearance Urine pH Ur Specific [place] Urine Protein Urine Glucose (UA) Urine Ketones Urine Occult Blood Urine Nitrate Urine Bilirubin Urine Urobilinogen Ur Leukocyte Esterase Urine RBC Urine WBC Urine Bacteria Ur Culture Indicated? 08/13/18 08/13/18 08/14/18 19:50 19:50 03:15 WBC RBC Hgb Hct MCV MCH MCHC RDW Plt Count Neut % (Auto) Lymph % (Auto) [place] % (Auto) Eos % (Auto) Baso % (Auto) Neut # (Auto) Lymph # (Auto) [place] # (Auto) Eos # (Auto) Baso # (Auto) PT INR APTT Sodium 140 Potassium 3.7 Chloride 99 Carbon Dioxide 30 BUN 45 H Creatinine 1.10 Estimated GFR > 60.0 BUN/Creatinine Ratio 40.9 H Glucose 116 H Lactate 0.9 Calcium 9.2 Total Bilirubin 0.4 AST 54 ALT 24 Alkaline Phosphatase 141 H Total Protein 7.0 Albumin 3.9 Globulin 3.1 Albumin/Globulin Ratio 1.3 Lipase 10 L Procalcitonin Urine Color Yellow Urine Appearance Clear Urine pH 5.5 Ur Specific [place] 1.015 Urine Protein Trace H Urine Glucose (UA) Negative Urine Ketones Trace H Urine Occult Blood Negative Urine Nitrate Negative Urine Bilirubin Negative Urine Urobilinogen 0.2 Ur Leukocyte Esterase Negative Urine RBC 0-1/hpf Urine WBC None seen Urine Bacteria None seen Ur Culture Indicated? Cult not indicated 08/14/18 08/14/18 04:51 04:51 WBC 15.0 H RBC 3.51 L Hgb 10.4 L Hct 30.4 L MCV 86.6 MCH 29.6 MCHC 34.2 RDW 14.0 Plt Count 308 Neut % (Auto) 84.8 H Lymph % (Auto) 5.9 L [place] % (Auto) 8.5 Eos % (Auto) 0.7 L Baso % (Auto) 0.1 Neut # (Auto) 05061 H Lymph # (Auto) 900 L [place] # (Auto) 1300 H Eos # (Auto) 100 Baso # (Auto) 0 PT INR APTT Sodium 140 Potassium 4.0 Chloride 104 Carbon Dioxide 29 BUN 24 H Creatinine 0.80 Estimated GFR > 60.0 BUN/Creatinine Ratio 30.0 H Glucose 172 H Lactate Calcium 8.4 Total Bilirubin AST ALT Alkaline Phosphatase Total Protein Albumin Globulin Albumin/Globulin Ratio Lipase Procalcitonin Urine Color Urine Appearance Urine pH Ur Specific [place] Urine Protein Urine Glucose (UA) Urine Ketones Urine Occult Blood Urine Nitrate Urine Bilirubin Urine Urobilinogen Ur Leukocyte Esterase Urine RBC Urine WBC Urine Bacteria Ur Culture Indicated? Discharge Plan Discharge Plan Patient Disposition: [facility] Transfer to: [facility] Under care of provider: Dr. Mcmillan (hospitalist, admitting), Dr. Corrales (vascular surg, [facility]) Discharge comment: Patient in need of vascular surgery evaluation in the setting limb ischemia. Vascular surgery is not available at the [facility]. Discharge Med Rec/Prescriptions Prescriptions: Continued atorvastatin 80 MG tablet 80 mg PO HS Qty: 0 RF: 0 aspirin 325 MG tablet 325 mg PO QDAY Qty: 0 RF: 0 clopidogrel 75 MG tablet 75 mg PO QDAY Qty: 0 RF: 0 levothyroxine 50 MCG tablet 50 mcg PO QAM Qty: 0 RF: 0 duloxetine 60 MG capsule,delayed release(DR/EC) 60 mg PO QDAY Qty: 0 RF: 0 metoprolol succinate [Toprol XL] 25 MG tablet extended release 24 hr 12.5 mg PO QDAY Qty: 0 RF: 0 polyethylene glycol 3350 [Miralax] 17 GM powder in packet 17 gm PO QDAY Qty: 0 RF: 0 sennosides [senna] 8.6 MG tablet 2 tab PO QDAY Qty: 0 RF: 0 acetaminophen 325 MG tablet 2 tab PO Q4HP PRN (Reason: Pain (Scale Score 1-3)) Qty: 0 RF: 0 omeprazole 20 MG capsule,delayed release(DR/EC) 20 mg PO DAILY Qty: 0 RF: 0 bisacodyl 10 MG suppository 10 mg PA PRN PRN (Reason: Constipation) Qty: 0 RF: 0 bisacodyl [Fleet Laxative] 5 MG tablet,delayed release (DR/EC) 5 mg PO PRN PRN (Reason: Constipation) Qty: 0 RF: 0 Maalox Maximum Strength 355 ML suspension 354 ml PO PRN PRN (Reason: Acid Reflux) Qty: 0 RF: 0 magnesium hydroxide [Milk of Magnesia] 400 mg/5 mL Suspension 30 ml PO DAILY PRN (Reason: Constipation) RF: 0 docusate sodium 100 mg Capsule 2 tab PO BID RF: 0 morphine [MS Contin] 30 mg Tablet Extended Release 30 mg PO BID RF: 0 calcium carbonate 600 mg calcium (1,500 mg) Tablet 1,200 mg PO DAILY RF: 0 vitamin B complex [B Complex-Vitamin B12] Tablet 1 tab PO DAILY RF: 0 mirtazapine 15 mg Tablet 15 mg PO DAILY RF: 0 fluticasone propionate 50 mcg/actuation [place],Suspension 1 spray INTRANASAL DAILY RF: 0 cholecalciferol (vitamin D3) 1,000 unit Capsule 1,000 unit PO DAILY RF: 0 ascorbic acid (vitamin C) 500 mg Capsule 500 mg PO DAILY RF: 0 hydroxyzine pamoate 25 mg Capsule 1 - 2 tab PO Q6H PRN (Reason: Spasms) RF: 0 insulin glargine 100 unit/mL (3 mL) Insulin Pen 8 unit SUBCUT BID RF: 0 loperamide [Imodium A-D] 2 mg Tablet 2 mg PO DAILY PRN (Reason: Diarrhea) RF: 0 ondansetron 4 mg Tablet,Disintegrating 4 mg PO Q4H PRN (Reason: Nausea) RF: 0 bisacodyl 5 mg Tablet 2 tab PO BEDTIME PRN (Reason: Constipation) RF: 0 oxycodone 10 mg Tablet 3 tab PO Q4H PRN (Reason: Pain (Scale Score 1-3)) RF: 0 lidocaine 4 % Adhesive Patch,Medicated 1 patch TOPICAL Q12HR RF: 0 ammonium lactate 12 % Lotion 1 applic TOPICAL BID RF: 0 furosemide [Lasix] 20 mg Tablet 20 mg PO QAM RF: 0 guaifenesin [Mucinex] 600 mg Tablet Extended Release 12hr 600 mg PO Q12H RF: 0 insulin aspart U-100 [Novolog Flexpen U-100 Insulin] 100 unit/mL insulin pen 100 unit SUBCUT DAILY RF: 0 baclofen 10 mg tablet 10 mg PO TID RF: 0 ibuprofen 400 mg tablet 400 mg PO Q4H PRN (Reason: Pain (Scale Score 1-3)) RF: 0 lisinopril 2.5 mg tablet 2.5 mg PO DAILY RF: 0 nystatin 100,000 unit/gram powder 1 applictn TOP Q12H PRN (Reason: yeast) RF: 0 artifi.tears(hypromellose)(PF) 0.3 % drops 2 ea EYE-BOTH .q12 PRN (Reason: Dry Eye(S)) RF: 0 clonazepam 0.5 mg tablet 0.5 mg PO BEDTIME RF: 0 Follow up/Referrals: Linda Denise MD [Primary Care Provider] - Discharge Health Status Brief summary of current health status: Patient condition stable. Vital signs stable. Precautions: [place] Provider Discharge Instructions Oxygen: 2L Discharge Data Primary Care Provider: Linda Denise Attending Provider: Melanie Selby Admit Date/Time: 08/13/18 21:48 Quality VTE Deep Vein Thrombosis/Pulmonary Embolism Present on Admission: No
--- NOTE | 2018-08-14 06:37 | P.DS_ITS ---
History of Present Illness Chief complaint: GLF Narrative: Patient is an unreliable historian. HPI obtained via direct interview of the patient and his mother. The patient is a 63-year-old male with PMHx of HTN, ICM EF 50-55%, DM 2T w/ complications (ie retinopathy and non-healing diabetic foot ulcer), HLD, CVA w/ residula deficits (right hemiplegia; on Plavix), CAD (h/o UT, s/p stenting), CKD III, PVD (h/o SFA stent), carotid artery disease (h/o CEA x2), cervical injury (s/p spinal fusion), and GERD. The patient is a 63-year-old male who is a resident of [facility], he was sent over to the ED out of concern for fever. Symptom onset is sudden. Associated symptoms included right lower extremity edema and erythema. Known to have prior history of slow healing diabetic foot ulcers. Currently has a heel ulcer, but denies pain or drainage from the site of the ulcer. Recently known to have been struggling with an upper respiratory symptoms for number of months, mainly with symptoms of sinus congestion, rhinitis, and postnasal drip. On 08/12/2018 reports felling out of the wheelchair while reaching for cigarette. He is a lifelong and current 1ppd smoker. Reports falling onto his left knee, denies head injury and loss of consciousness. Denies new extremity, back, and hip pain. patient's overall mobility is diminished, he is essentially wheelchair-bound and has right hemiplegia from previous CVA. He is on Plavix. Two days ago patient reports having oral surgery and extraction of 7 teeth. Denies chest pain, palpitations, dizziness/lightheadedness, syncopal events, abdominal pain, dysuria, or blood loss in urine/stool. Denies malaise and myopathy. XR Chest, showed increased vascular suggestive of edema, increased RML opacity, could this represent focal edema or developing airspace disease such as atelectasis and/or pneumonia. XR Foot (right), no lucency to suggest osteomyelitis. CT Head, no acute intracranial process; kxur-[id number] atrophy and chronic microvascular ischemic changes; sinus mucosal thickening w/ left maxillary sinus fluid level suggestive of sinusitis. Patient was admitted and treated for sepsis, right foot cellulitis, and RML PNA. Noted to have absence of DP and PT pulses, also unable to dopple. Cyanosis in the area of great toe noted. Following imaging ordered, RLE U/S - occluded SFA to popliteal artery CTA abdomen w/ run-off, occluded right SFA stent w/ minimal perfusion to the right foot Overnight there has been increase in the cyanosis right toe. In addition to mottling the remaining digits. Patient has absence of sensation. Mildly evident. Patient in need evaluation by vascular surgery, spoke with Dr. Corrales w/ vascular surgery in [place], accepted patient to evaluate for revascularization. Discussed case with the hospitalist service, Dr. Mcmillan, who also accepted the patient. Patient will be transferred to [place] via direct admission, accepted by hospitalist service, with consult to vascular surgery Discharge Providers Date of admission: 08/13/18 21:48 Discharge Date: 08/14/18 Primary care physician: Linda Denise MD Consults: 08/13/18 22:32 Consult to Discharge Planning Routine Comment: 08/13/18 23:08 Consult to Dietitian, Adult Routine Comment: Reason For Exam: pt stated decrease in appetite with weight loss 08/13/18 23:31 Consult to Respiratory Therapy Routine Comment: Physician Instructions: Evaluate and treat 08/13/18 23:35 Consult to Speech Therapy Evaluate & Treat Comment: swallow evaluation, c/o dysphagia Physician Instructions: Evaluate and treat 08/14/18 06:00 Consult to Physical Therapy Evaluate & Treat Comment: generalized weakness, inpatient r/t deconditioning Physician Instructions: Evaluate and Treat Discharge provider: BOO Yousif Summary Discharge Diagnosis: Sepsis Right foot cellulitis Right middle lobe pneumonia Limb ischemia Nondisplaced fracture of proximal right tibia CVA with complications of hemiplegia CAD with prior UT and stenting Essential hypertension Diabetes mellitus type 2, insulin-dependent Tobacco dependence Status at Discharge Cognitive/behavioral status at discharge: oriented and at baseline, oriented Functional status at discharge: wheelchair bound Overall status at discharge: patient is progressing back to baseline Time Spent with Patient Greater than 30 minutes Time spent discussing smoking cessation with patient: 3 to 10 minutes Exam Vital Signs (past 8 hours): - 08/13/18 22:43 08/13/18 23:56 08/14/18 00:00 Temperature 99.1 F 98.9 F Pulse Rate 104 H 98 H Respiratory Rate 18 20 Blood Pressure 154/73 H 141/72 H Pulse Oximetry 98 98 98 08/14/18 03:00 08/14/18 04:00 Temperature 99.4 F Pulse Rate 98 H Respiratory Rate 24 Blood Pressure 148/67 H Pulse Oximetry 98 97 Oxygen Delivery Method Nasal Cannula Oxygen Flow Rate 2 Narrative Exam Narrative: Awake and alert, no acute distress Right hemiplegia, no facial asymmetry, speech improved from previous, able to manage secretions Gaze conjugate, pupils equal and reactive Normocephalic atraumatic Hearing acuity intact, no drainage noted Course, 2 L of oxygen, no dyspnea or tachypnea at rest S1-S2, no murmur Soft, nontender, nondistended Right DP and PT pulses not palpable, also unable to double Cyanosis of the right toe has progressed from last night, there is mild lying of the toes Degree of edema and erythema in RLE decreased Left lower extremity intact, DP and PT, pulses doppleable Objective Labs Result Diagrams: 08/14/18 04:51 08/14/18 04:51 Labs: Laboratory Results - last 24 hr 08/13/18 08/13/18 08/13/18 19:50 19:50 19:50 WBC 16.3 H RBC 3.82 L Hgb 11.2 L Hct 32.8 L MCV 86.1 MCH 29.3 MCHC 34.0 RDW 13.8 Plt Count 339 Neut % (Auto) 86.1 H Lymph % (Auto) 4.7 L [place] % (Auto) 8.0 Eos % (Auto) 1.1 L Baso % (Auto) 0.1 Neut # (Auto) 92867 H Lymph # (Auto) 800 L [place] # (Auto) 1300 H Eos # (Auto) 200 Baso # (Auto) 0 PT 13.0 H INR 1.1 APTT 30 Sodium Potassium Chloride Carbon Dioxide BUN Creatinine Estimated GFR BUN/Creatinine Ratio Glucose Lactate Calcium Total Bilirubin AST ALT Alkaline Phosphatase Total Protein Albumin Globulin Albumin/Globulin Ratio Lipase Procalcitonin 0.11 Urine Color Urine Appearance Urine pH Ur Specific [place] Urine Protein Urine Glucose (UA) Urine Ketones Urine Occult Blood Urine Nitrate Urine Bilirubin Urine Urobilinogen Ur Leukocyte Esterase Urine RBC Urine WBC Urine Bacteria Ur Culture Indicated? 08/13/18 08/13/18 08/14/18 19:50 19:50 03:15 WBC RBC Hgb Hct MCV MCH MCHC RDW Plt Count Neut % (Auto) Lymph % (Auto) [place] % (Auto) Eos % (Auto) Baso % (Auto) Neut # (Auto) Lymph # (Auto) [place] # (Auto) Eos # (Auto) Baso # (Auto) PT INR APTT Sodium 140 Potassium 3.7 Chloride 99 Carbon Dioxide 30 BUN 45 H Creatinine 1.10 Estimated GFR > 60.0 BUN/Creatinine Ratio 40.9 H Glucose 116 H Lactate 0.9 Calcium 9.2 Total Bilirubin 0.4 AST 54 ALT 24 Alkaline Phosphatase 141 H Total Protein 7.0 Albumin 3.9 Globulin 3.1 Albumin/Globulin Ratio 1.3 Lipase 10 L Procalcitonin Urine Color Yellow Urine Appearance Clear Urine pH 5.5 Ur Specific [place] 1.015 Urine Protein Trace H Urine Glucose (UA) Negative Urine Ketones Trace H Urine Occult Blood Negative Urine Nitrate Negative Urine Bilirubin Negative Urine Urobilinogen 0.2 Ur Leukocyte Esterase Negative Urine RBC 0-1/hpf Urine WBC None seen Urine Bacteria None seen Ur Culture Indicated? Cult not indicated 08/14/18 08/14/18 04:51 04:51 WBC 15.0 H RBC 3.51 L Hgb 10.4 L Hct 30.4 L MCV 86.6 MCH 29.6 MCHC 34.2 RDW 14.0 Plt Count 308 Neut % (Auto) 84.8 H Lymph % (Auto) 5.9 L [place] % (Auto) 8.5 Eos % (Auto) 0.7 L Baso % (Auto) 0.1 Neut # (Auto) 00122 H Lymph # (Auto) 900 L [place] # (Auto) 1300 H Eos # (Auto) 100 Baso # (Auto) 0 PT INR APTT Sodium 140 Potassium 4.0 Chloride 104 Carbon Dioxide 29 BUN 24 H Creatinine 0.80 Estimated GFR > 60.0 BUN/Creatinine Ratio 30.0 H Glucose 172 H Lactate Calcium 8.4 Total Bilirubin AST ALT Alkaline Phosphatase Total Protein Albumin Globulin Albumin/Globulin Ratio Lipase Procalcitonin Urine Color Urine Appearance Urine pH Ur Specific [place] Urine Protein Urine Glucose (UA) Urine Ketones Urine Occult Blood Urine Nitrate Urine Bilirubin Urine Urobilinogen Ur Leukocyte Esterase Urine RBC Urine WBC Urine Bacteria Ur Culture Indicated? Discharge Plan Discharge Plan Patient Disposition: [facility] Transfer to: [facility] Under care of provider: Dr. Mmcillan (hospitalist, admitting), Dr. Corrales (vascular surg, [facility]) Discharge comment: Patient in need of vascular surgery evaluation in the setting limb ischemia. Vascular surgery is not available at the [facility]. Discharge Med Rec/Prescriptions Prescriptions: Continued atorvastatin 80 MG tablet 80 mg PO HS Qty: 0 RF: 0 aspirin 325 MG tablet 325 mg PO QDAY Qty: 0 RF: 0 clopidogrel 75 MG tablet 75 mg PO QDAY Qty: 0 RF: 0 levothyroxine 50 MCG tablet 50 mcg PO QAM Qty: 0 RF: 0 duloxetine 60 MG capsule,delayed release(DR/EC) 60 mg PO QDAY Qty: 0 RF: 0 metoprolol succinate [Toprol XL] 25 MG tablet extended release 24 hr 12.5 mg PO QDAY Qty: 0 RF: 0 polyethylene glycol 3350 [Miralax] 17 GM powder in packet 17 gm PO QDAY Qty: 0 RF: 0 sennosides [senna] 8.6 MG tablet 2 tab PO QDAY Qty: 0 RF: 0 acetaminophen 325 MG tablet 2 tab PO Q4HP PRN (Reason: Pain (Scale Score 1-3)) Qty: 0 RF: 0 omeprazole 20 MG capsule,delayed release(DR/EC) 20 mg PO DAILY Qty: 0 RF: 0 bisacodyl 10 MG suppository 10 mg AR PRN PRN (Reason: Constipation) Qty: 0 RF: 0 bisacodyl [Fleet Laxative] 5 MG tablet,delayed release (DR/EC) 5 mg PO PRN PRN (Reason: Constipation) Qty: 0 RF: 0 Maalox Maximum Strength 355 ML suspension 354 ml PO PRN PRN (Reason: Acid Reflux) Qty: 0 RF: 0 magnesium hydroxide [Milk of Magnesia] 400 mg/5 mL Suspension 30 ml PO DAILY PRN (Reason: Constipation) RF: 0 docusate sodium 100 mg Capsule 2 tab PO BID RF: 0 morphine [MS Contin] 30 mg Tablet Extended Release 30 mg PO BID RF: 0 calcium carbonate 600 mg calcium (1,500 mg) Tablet 1,200 mg PO DAILY RF: 0 vitamin B complex [B Complex-Vitamin B12] Tablet 1 tab PO DAILY RF: 0 mirtazapine 15 mg Tablet 15 mg PO DAILY RF: 0 fluticasone propionate 50 mcg/actuation [place],Suspension 1 spray INTRANASAL DAILY RF: 0 cholecalciferol (vitamin D3) 1,000 unit Capsule 1,000 unit PO DAILY RF: 0 ascorbic acid (vitamin C) 500 mg Capsule 500 mg PO DAILY RF: 0 hydroxyzine pamoate 25 mg Capsule 1 - 2 tab PO Q6H PRN (Reason: Spasms) RF: 0 insulin glargine 100 unit/mL (3 mL) Insulin Pen 8 unit SUBCUT BID RF: 0 loperamide [Imodium A-D] 2 mg Tablet 2 mg PO DAILY PRN (Reason: Diarrhea) RF: 0 ondansetron 4 mg Tablet,Disintegrating 4 mg PO Q4H PRN (Reason: Nausea) RF: 0 bisacodyl 5 mg Tablet 2 tab PO BEDTIME PRN (Reason: Constipation) RF: 0 oxycodone 10 mg Tablet 3 tab PO Q4H PRN (Reason: Pain (Scale Score 1-3)) RF: 0 lidocaine 4 % Adhesive Patch,Medicated 1 patch TOPICAL Q12HR RF: 0 ammonium lactate 12 % Lotion 1 applic TOPICAL BID RF: 0 furosemide [Lasix] 20 mg Tablet 20 mg PO QAM RF: 0 guaifenesin [Mucinex] 600 mg Tablet Extended Release 12hr 600 mg PO Q12H RF: 0 insulin aspart U-100 [Novolog Flexpen U-100 Insulin] 100 unit/mL insulin pen 100 unit SUBCUT DAILY RF: 0 baclofen 10 mg tablet 10 mg PO TID RF: 0 ibuprofen 400 mg tablet 400 mg PO Q4H PRN (Reason: Pain (Scale Score 1-3)) RF: 0 lisinopril 2.5 mg tablet 2.5 mg PO DAILY RF: 0 nystatin 100,000 unit/gram powder 1 applictn TOP Q12H PRN (Reason: yeast) RF: 0 artifi.tears(hypromellose)(PF) 0.3 % drops 2 ea EYE-BOTH .q12 PRN (Reason: Dry Eye(S)) RF: 0 clonazepam 0.5 mg tablet 0.5 mg PO BEDTIME RF: 0 Follow up/Referrals: Linda Denise MD [Primary Care Provider] - Discharge Health Status Brief summary of current health status: Patient condition stable. Vital signs stable. Precautions: [place] Provider Discharge Instructions Oxygen: 2L Discharge Data Primary Care Provider: Linda Denise Attending Provider: Melanie Selby Admit Date/Time: 08/13/18 21:48 Quality VTE Deep Vein Thrombosis/Pulmonary Embolism Present on Admission: No
--- NOTE | 2018-08-14 06:52 | PC.NURSE ---
[id number] Tried to call family x2 to notify pending transfer to [facility], but no one answers my call. Leave a messages to call back & also called [facility] to give report. But was not able to give report, leave [facility] telephone & the RN in [facility] will here soon. Pt. resting in bed no C/O pain. Will monitor.
[2018-08-14 07:45] VITALS: BP 150/68; PULSE 68; RESP 16; TEMP 37.2; O2SAT 100
[2018-08-14] MEDS: VANCOMYCIN 1,000 MG/200 ML FROZ.PIGGY 200 MG IV (07:56)
[2018-08-14 08:00] VITALS: O2SAT 93
--- NOTE | 2018-08-14 09:04 | CM.DANOTE ---
DCP/Assessment: Reviewed chart. Patient is a 63yr old male admitted to [facility] after [facility]. PCP listed is Dr. Denise and Eli Montanez. Primary payor is 1)Medicare 2)Medicaid. Spoke with charge accounts audit clerk she reports that patient transferring to [facility] today at approximately 9:00am. Per RN patient requiring vascular surgery. RN reports that family has been notified. Met with briefly with patient and he is very sleepy at time of visit. Patient aware that he is being transferred and that he resides at [facility]. P: Transfer to higher level of care today. ALEC Vee Discharge Planning/Care Management CM Discharge Assessment Start: 08/14/18 09:02 Freq: Status: Active Protocol: Document 08/14/18 09:03 CONNORS (Rec: 08/14/18 09:04 DENISE [id number]) Discharge Planning Assessment Assigned Planetarium Technician ALEC Vee Contact Information Cornel Cristian # [phone] Advance Directives? Yes: See residence notes from [facility] located in plastic folder on floor. Advance Directives on File No History Provided By Patient Parents Prior Living Arrangements Assisted Living Household Members caregiver Type of transporation used prior to Relies on Others admit Facility Name Admitted From: [facility] Independent with ADL's No Caregiver for Another No Comment Patient has electric w/c at residence. Discharge Plan Transfer to Higher Level of Care Transportation Arrangement Patient requesting to be picked up by [facility] with his electric w/c. Additional Comment Pending Whiteboard Updated in Patient Room with Yes name and ext. # of Planetarium Technician Review Status In Process Next Review Type Continued Stay Review
--- NOTE | 2018-08-14 09:24 | PC.NURSE ---
PATIENT'S MOTHER, JENA MARCELO RETURNED NOC SHIFT RN'S CALL. SHE WAS UPDATED ON PATIENT STATUS AND TRANSF TO [facility] IN [place]. SHE APPRECIATED THE UPDATE, AND STATES THAT PATIENT'S BROTHER VITALY, IS THE POA, AND THAT SHE WILL CALL HIM ALSO, TO UPDATE HIM.
--- NOTE | 2018-08-14 09:58 | PC.NURSE ---
AM NOTE - awakens, speech is slurred and hx r ue weakness, arm is flaccid, able to move l hand and arm, debbie le weakness, unable to move on command, r foot pink, toes are slightly dusky and cool to touch, l foot warm, hr 100, 2l 93-94%, occassional wet moist cough, explained plan for tsf and npo status, scheduled dose vanco admin, when ambul crew arrived, ivf saline lock, flushed, paperwork provided, vitals, cbg now checked and 246, tsf to nathalia and report called to CHRISTIAN Sainz at [facility], , ext [phone].
== END 2018-08-14 09:30 | disposition short-term general hospital (02) | DRG 871 ==
LOC: ED 19:44 → AC 08-14 06:37
PROVIDERS: Admitting Provider Nurse Practitioner Gerontology; Emergency Provider Emergency Medicine; Family Provider Nurse Practitioner Family; PCP Internal Medicine; Visit Provider Nurse Practitioner Gerontology
DX: A41.9 Sepsis, unspecified organism (principal); J96.01 Acute respiratory failure with hypoxia; J18.9 Pneumonia, unspecified organism; L03.115 Cellulitis of right lower limb; E11.52 Type 2 diabetes mellitus with diabetic peripheral angiopathy with gangrene; I96 Gangrene, not elsewhere classified; N17.9 Acute kidney failure, unspecified; I69.351 Hemiplegia and hemiparesis following cerebral infarction affecting right dominant side; R65.20 Severe sepsis without septic shock; E11.621 Type 2 diabetes mellitus with foot ulcer; S82.201D Unspecified fracture of shaft of right tibia, subsequent encounter for closed fracture with routine healing; R13.10 Dysphagia, unspecified; I25.10 Atherosclerotic heart disease of native coronary artery without angina pectoris; E03.9 Hypothyroidism, unspecified; I10 Essential (primary) hypertension; W18.30XA Fall on same level, unspecified, initial encounter
CPT/HCPCS: 36591; 70450; 71045; 73630; 75635; 80048; 80053; 81001; 82962; 83605; 83690; 84145; 85025; 85610; 85730; 87040; 87449; 93926; 94760; 96361; 96365; 96368; 99283; 99291; 99292; G0390; J1644; J1956; J2543; J3370; Q9967

== ENCOUNTER → 2018-08-30 07:05 | Outpatient (REF) | payer MEDICARE, MEDICAID, SELFPAY ==
[2018-08-13 22:55] VITALS: BMI 25.3
[2018-08-30 08:06] LABS: Add Manual Diff / Slide Review NO; Basophils Absolute Auto 100 /uL (0-100); Basophils Percent Auto 1.1 % (0-2); Eosinophils Absolute Auto 600 /uL (0-450); Hematocrit 29.7 % (41-53); Hemoglobin 9.9 g/dL (13.5-17.5); Lymphocytes Absolute Auto 2300 /uL (1100-4500); Lymphocytes Percent Auto 23.1 % (25-40); Mean Corpuscular HGB Conc 33.3 % (30-36); Mean Corpuscular Hemoglobin 29.2 PG (26-34); Mean Corpuscular Volume 87.7 fL (80-100); Monocytes Absolute Auto 900 /uL (0-900); Monocytes Percent Auto 9.1 % (3-14); Neutrophils Absolute Auto 6000 /uL (1500-7000); Neutrophils Percent Auto 60.7 % (50-75); Platelet Count 597 X10^3/uL (150-400); Red Blood Cell Count 3.39 X10^6/uL (4.5-5.9); Red Cell Distribution Width 14.3 % (11.6-14.8); White Blood Cell Count 9.9 X10^3/uL (4.5-11.0)
[2018-08-30 08:13] LABS: Hemoglobin A1C% w Est Avg Glu 7.1 % (4.0-6.0)
[2018-08-30 08:14] LABS: BUN Creatinine Ratio 20.7 (6-22); Blood Urea Nitrogen 29 mg/dL (9-20); Calcium 9.1 mg/dL (8.4-10.2); Carbon Dioxide 31 mmol/L (22-32); Chloride 96 mmol/L (98-107); Estimated Glomerular Filt Rate 51.4 mL/min (>60); Glucose 109 mg/dL (80-110); HEMOLYSIS < 15 (0-50); Potassium 4.3 mmol/L (3.4-5.1); Sodium 135 mmol/L (137-145)
== END ==
LOC: LAB 07:05
PROVIDERS: Family Provider Nurse Practitioner Family; PCP Internal Medicine; Visit Provider Internal Medicine
DX: E10.9 Type 1 diabetes mellitus without complications (principal); D72.829 Elevated white blood cell count, unspecified; E87.6 Hypokalemia; D64.9 Anemia, unspecified
CPT/HCPCS: 36415; 80048; 83036; 85025

== ENCOUNTER → 2018-09-06 09:10 | Outpatient (ROUT) | payer MEDICARE, MEDICAID, SELFPAY ==
[2018-08-13 22:55] VITALS: BMI 25.3
[2018-09-06 10:21] LABS: BUN Creatinine Ratio 24.4 (6-22); Blood Urea Nitrogen 22 mg/dL (9-20); Calcium 8.5 mg/dL (8.4-10.2); Carbon Dioxide 30 mmol/L (22-32); Chloride 99 mmol/L (98-107); Estimated Glomerular Filt Rate > 60.0 mL/min (>60); Glucose 197 mg/dL (80-110); HEMOLYSIS < 15 (0-50); Potassium 3.9 mmol/L (3.4-5.1); Sodium 135 mmol/L (137-145)
== END ==
PROVIDERS: Family Provider Nurse Practitioner Family; PCP Internal Medicine; Visit Provider Nurse Practitioner Family
DX: N17.9 Acute kidney failure, unspecified (principal)
CPT/HCPCS: 36415; 80048

== ENCOUNTER → 2018-09-12 14:31 | Outpatient (CLI) | payer MEDICARE, MEDICAID, SELFPAY ==
[2018-08-13 22:55] VITALS: BMI 25.3
== END ==
PROVIDERS: Family Provider Nurse Practitioner Family; PCP Internal Medicine; Visit Provider Podiatrist Primary Podiatric Medicine
DX: E11.622 Type 2 diabetes mellitus with other skin ulcer (principal); L97.411 Non-pressure chronic ulcer of right heel and midfoot limited to breakdown of skin; E11.621 Type 2 diabetes mellitus with foot ulcer; L97.511 Non-pressure chronic ulcer of other part of right foot limited to breakdown of skin
CPT/HCPCS: 99215

== ENCOUNTER → 2018-09-15 07:11 | Outpatient (ROUT) | payer MEDICARE, MEDICAID, SELFPAY ==
[2018-08-13 22:55] VITALS: BMI 25.3
[2018-09-15 08:21] LABS: Hematocrit 30.8 % (41-53); Hemoglobin 10.7 g/dL (13.5-17.5)
== END ==
PROVIDERS: Family Provider Nurse Practitioner Family; PCP Internal Medicine; Visit Provider Internal Medicine
DX: D64.9 Anemia, unspecified (principal)
CPT/HCPCS: 36415; 85014; 85018

== ENCOUNTER → 2018-09-19 13:02 | Outpatient (CLI) | payer MEDICARE, MEDICAID, SELFPAY ==
[2018-08-13 22:55] VITALS: BMI 25.3
== END ==
PROVIDERS: Family Provider Nurse Practitioner Family; PCP Internal Medicine; Visit Provider Podiatrist Primary Podiatric Medicine
DX: E11.621 Type 2 diabetes mellitus with foot ulcer (principal); L97.511 Non-pressure chronic ulcer of other part of right foot limited to breakdown of skin
CPT/HCPCS: 97597

== ENCOUNTER → 2018-09-29 07:13 | Outpatient (ROUT) | payer MEDICARE, MEDICAID, SELFPAY ==
[2018-08-13 22:55] VITALS: BMI 25.3
[2018-09-29 08:00] LABS: Add Manual Diff / Slide Review NO; Basophils Absolute Auto 100 /uL (0-100); Basophils Percent Auto 0.8 % (0-2); Eosinophils Absolute Auto 600 /uL (0-450); Eosinophils Percent Auto 7.3 % (2-4); Hematocrit 30.5 % (41-53); Hemoglobin 10.2 g/dL (13.5-17.5); Lymphocytes Absolute Auto 2700 /uL (1100-4500); Lymphocytes Percent Auto 32.8 % (25-40); Mean Corpuscular HGB Conc 33.7 % (30-36); Mean Corpuscular Hemoglobin 29.4 PG (26-34); Mean Corpuscular Volume 87.5 fL (80-100); Monocytes Absolute Auto 600 /uL (0-900); Monocytes Percent Auto 7.6 % (3-14); Neutrophils Absolute Auto 4300 /uL (1500-7000); Neutrophils Percent Auto 51.5 % (50-75); Platelet Count 310 X10^3/uL (150-400); Red Blood Cell Count 3.48 X10^6/uL (4.5-5.9); Red Cell Distribution Width 13.7 % (11.6-14.8); White Blood Cell Count 8.3 X10^3/uL (4.5-11.0)
[2018-09-29 08:38] LABS: Alanine Aminotransferase 24 IU/L (21-72); Albumin 3.3 g/dL (3.5-5.0); Albumin Globulin Ratio 1.3 (1.0-2.8); Alkaline Phosphatase 101 U/L (38-126); Aspartate Aminotransferase 21 IU/L (17-59); BUN Creatinine Ratio 28.9 (6-22); Bilirubin Total 0.2 mg/dL (0.2-1.3); Blood Urea Nitrogen 26 mg/dL (9-20); Calcium 8.5 mg/dL (8.4-10.2); Carbon Dioxide 31 mmol/L (22-32); Chloride 102 mmol/L (98-107); Estimated Glomerular Filt Rate > 60.0 mL/min (>60); Globulin 2.5 g/dL (1.7-4.1); Glucose 93 mg/dL (80-110); HEMOLYSIS < 15 (0-50); Potassium 4.3 mmol/L (3.4-5.1); Sodium 137 mmol/L (137-145); Total Protein 5.8 g/dL (6.3-8.2)
[2018-09-29 09:05] LABS: Thyroid Stimulating Hormone 3.58 uIU/mL (0.47-4.68)
== END ==
PROVIDERS: Family Provider Nurse Practitioner Family; PCP Internal Medicine; Visit Provider Nurse Practitioner Family
DX: D64.9 Anemia, unspecified (principal); E03.9 Hypothyroidism, unspecified
CPT/HCPCS: 36415; 80053; 84443; 85025

== ENCOUNTER → 2018-10-03 15:03 | Outpatient (CLI) | payer MEDICARE, MEDICAID, SELFPAY ==
[2018-08-13 22:55] VITALS: BMI 25.3
== END ==
PROVIDERS: Family Provider Nurse Practitioner Family; PCP Internal Medicine; Visit Provider Podiatrist Primary Podiatric Medicine
DX: E11.621 Type 2 diabetes mellitus with foot ulcer (principal); L97.411 Non-pressure chronic ulcer of right heel and midfoot limited to breakdown of skin; L97.511 Non-pressure chronic ulcer of other part of right foot limited to breakdown of skin
CPT/HCPCS: 97597

== ENCOUNTER → 2018-10-10 11:08 | Outpatient (CLI) | payer MEDICARE, MEDICAID, SELFPAY ==
[2018-08-13 22:55] VITALS: BMI 25.3
== END ==
PROVIDERS: Family Provider Nurse Practitioner Family; PCP Internal Medicine; Visit Provider Podiatrist Primary Podiatric Medicine
DX: E11.621 Type 2 diabetes mellitus with foot ulcer (principal); L97.411 Non-pressure chronic ulcer of right heel and midfoot limited to breakdown of skin; L97.511 Non-pressure chronic ulcer of other part of right foot limited to breakdown of skin
CPT/HCPCS: 97597

== ENCOUNTER → 2018-10-17 11:16 | Outpatient (CLI) | payer MEDICARE, MEDICAID, SELFPAY ==
[2018-08-13 22:55] VITALS: BMI 25.3
== END ==
PROVIDERS: Family Provider Nurse Practitioner Family; PCP Internal Medicine; Visit Provider Podiatrist Primary Podiatric Medicine
DX: E11.621 Type 2 diabetes mellitus with foot ulcer (principal); L97.511 Non-pressure chronic ulcer of other part of right foot limited to breakdown of skin; S90.415A Abrasion, left lesser toe(s), initial encounter
CPT/HCPCS: 11042

== ENCOUNTER → 2018-10-24 10:02 | Outpatient (CLI) | payer MEDICARE, MEDICAID, SELFPAY ==
[2018-08-13 22:55] VITALS: BMI 25.3
--- NOTE | 2018-10-24 | DI.RAD.S_ITS ---
PROCEDURE: FL BARIUM SWALLOW W SPEECH INDICATIONS: INCREASING DYSPHAGIA/COUGH TECHNIQUE: Examination was conducted in conjunction with speech pathology per standard protocol. In the lateral projection, filming was performed of the patient swallowing. AP projection filming may also be performed with patient swallowing. COMPARISON: None. FINDINGS: Function: The oral preparatory phase appears normal, with proper containment. The subsequent oral propulsive phase, pharyngeal phase, and esophageal phase of swallowing also appear normal with all proffered substances. There appeared to be perhaps a single episode of flash laryngotracheal penetration without aspiration. No pathologic vallecular pooling. Morphology: No cricopharyngeal bar is identified. No cervical esophageal webs. No Zenker's diverticulum. No strictures. IMPRESSION: Overall the evaluation is excellent, with only a single episode of what might have been a flash laryngotracheal penetration event. Please refer to the dedicated speech therapy report for this examination, which will be independently generated. Dictated by: Harish Kumar M.D. on 10/24/2018 at 11:39 Approved by: Harish Kumar M.D. on 10/24/2018 at 11:41
--- NOTE | 2018-10-24 16:24 | ST.SWALLOW ---
Care Team Visit Care Team Role Provider Type BOO Harden Family Provider Non-Staff Specialty: Medical Address: [address] [place] [address], [phone] Fax: Email: Linda Denise MD Attending Provider Physician Primary Care Provider Specialty: Medical Address: [address], [address] Email: Modified Barium Swallow Study DIET TECHNICIAN REGISTERED Modified Barium Swallow Study Start: 10/24/18 15:22 Freq: Status: Active Protocol: Document 10/24/18 15:22 LNK (Rec: 10/24/18 16:23 LNK [id number]) Modified Barium Swallow Study Total Time Visit Start Time 10:30 Visit Stop Time 11:00 Total Visit Minutes 30 Visit Information Plan of Care Dates 10/24/18- Referral Referring Physician Dr Marsh Reason for Referral dysphagia Setting Setting Outpatient Care Patient Information Identification Type Name Date of Patient History The patient is a 63-year-old male with PMHx of HTN, ICM EF 50-55%, DM 2T w/ complications (ie retinopathy and non-healing diabetic foot ulcer), HLD, CVA w/ residula deficits (right hemiplegia; on Plavix), CAD (h/o WA, s/p stenting), CKD III, PVD (h/o SFA stent), carotid artery disease (h/o CEA x2), cervical injury (s/p spinal fusion), and GERD. On 08/13/18 the pt was seen in the ED at [facility] for fever. Had a chest xray at that time which indicated increased vascular suggestive of edema, increased RML opacity, could this represent focal edema or developing airspace disease such as atelectasis and/or pneumonia. Pt reports that he has been coughing and choking more frequently lately when he eats /drinks. He describes it as food getting stuck in his throat and/or going down the wrong way. Pt was seen for a Modified Barium Swallow Study (MBS) at the referral of Dr. Marsh. Pt is a resident of [facility]. He Subjective Observations Pt was brought into the flouroscopy exam room and provided with instructions as to the procedure. He indicated that he understood. Patient Positioning Position View Lateral Imaging Lateral View Textures Administered Trials Presented Thin Liquid via Spoon Thin Liquid via Cup Upham Liquid via Spoon Upham Liquid via Cup Pudding Thick Liquid via Spoon Regular Textures Oral Phase Source: MBSIMP (TM) (C) Bolus Specific Scoring Grid Lip Closure Mild Impairment Tongue Control During Bolus Hold Moderate Impairment Bolus Prep/Mastication Moderate Impairment Bolus Transport/Lingual Motion Moderate Impairment A/P Lingual Propulsion Delay Yes Number of Seconds Delayed (seconds) 1-2 Oral Residue Moderate Impairment Residue Clearing Moderate Impairment Nasal Regurgitation No Additional Oral Phase Observations The pt is currently edentulous . He states he will be getting dentures within the next few weeks. Oral moror examination indicated reduced speed, accuracy and ROM across all structures. Pt's speech is moderately dysarthric. Pt is intelligible; however his speech is very slow. Diadochokinesis is slow. Pharyngeal Phase Source: MBSIMP (TM) (C) Bolus Specific Scoring Grid Delayed Initiation of Pharyngeal Swallow Yes: Bolus head travels to valeculla pre-swallow Number of Seconds Delayed (seconds) 1-2 Soft Palate Elevation WFL Tongue Base Strength/Range of Motion Moderate Impairment Residue Along the Tongue Base Yes Clearance of Residue Along Tongue Base Moderate Impairment Laryngeal Elevation Mild Impairment Anterior Hyoid Movement Moderate Impairment Epiglottic Range of Motion WFL Vallecular Residue Yes Clearance of Vallecular Residue Moderate Impairment Laryngeal Vestibular Closure Minimal Impairment Pharyngeal Stripping Wave Moderate Impairment Pharyngeal Contraction Moderate Impairment Posterior Pharyngeal Wall Residue Yes Clearance of Posterior Pharyngeal Wall Mild Impairment Residue Upper Esophageal Sphincter Opening Mild Impairment Residue in the Pyriform Sinuses Yes Clearance of Residue in the Pyriform Mild Impairment Sinuses Esophageal Clearance Upright Position Mild Impairment Pharyngoesophageal Backflow Observed No Additional Pharyngeal Phase Observations Premature spillage pre-swallow to the valeculla. Reduced hyolaryngeal elevation with no forward movement of the hyoid bone. Oral residue post swallow at the floor of the mouth and under tongue base. Weak linguapharyngeal contact, pharyngeal stripping wave and pharyngeal contraction indicating poor bolus control. Pooling within the pharynx observed at valeculla, posterior pharyngeal wall, base of tongue and in the pyriform sinuses. Flash penetration of the laryngeal vestibule observed x2 without aspiration. Good epiglottic inversion. A/P View Clinical Impressions Dysphagia Type oropharyngeal dysphagia Findings Pt presents with moderately severe oropharyngeal dysphagia secondary to residual effects of CVA/ hemiparesis. Pt's voice has a strained- strangled quality and his speech is dysarthric. He is edentulous; yet he reports he eats anything he wants. He reports choking and food sticking which may be indicative of inability to safely and completely masticate advanced textures. Additionally, if he becomes distracted during meals he is at a higher risk for aspiration. Pt admits that if he does not concentrate on eating during meals, he is more likely to choke. Recommend a softer diet to reduce aspiration risk at least until he gets upper and lower dentures. Rehabilitation Potential Fair Patient Appropriate for Therapy Yes: ST at assisted living center as indicated Recommendations Diet Liquids Order Thin Diet Order Dysphagia Advanced Medication Recommendation As Tolerated Whole in Carrier Crushed in Carrier Additional Dietary Needs Chopped Food Aspiration Precautions Recommended Precautions Upright at 90 Degrees Small Bites/Sips Treatment Plan Compensatory Strategies Recommendations Sitting Upright (90 deg) Liquids from Cup Small Bites and Sips Alternate Liquids/Solids
== END ==
PROVIDERS: Family Provider Nurse Practitioner Family; PCP Internal Medicine; Visit Provider Internal Medicine
DX: R13.10 Dysphagia, unspecified (principal); R05 Cough
CPT/HCPCS: 74230; 92611

== ENCOUNTER → 2018-10-24 15:17 | Outpatient (CLI) | payer MEDICARE, MEDICAID, SELFPAY ==
[2018-08-13 22:55] VITALS: BMI 25.3
== END ==
PROVIDERS: Family Provider Nurse Practitioner Family; PCP Internal Medicine; Visit Provider Podiatrist Primary Podiatric Medicine
DX: E11.621 Type 2 diabetes mellitus with foot ulcer (principal); L97.411 Non-pressure chronic ulcer of right heel and midfoot limited to breakdown of skin; L97.511 Non-pressure chronic ulcer of other part of right foot limited to breakdown of skin; S90.412A Abrasion, left great toe, initial encounter
CPT/HCPCS: 11042; 97597; 99213

== ENCOUNTER → 2018-11-07 13:47 | Outpatient (CLI) | payer MEDICARE, MEDICAID, SELFPAY ==
[2018-08-13 22:55] VITALS: BMI 25.3
== END ==
PROVIDERS: Family Provider Nurse Practitioner Family; PCP Internal Medicine; Visit Provider Podiatrist Primary Podiatric Medicine
DX: E10.621 Type 1 diabetes mellitus with foot ulcer (principal); L97.511 Non-pressure chronic ulcer of other part of right foot limited to breakdown of skin; S90.415A Abrasion, left lesser toe(s), initial encounter; L08.9 Local infection of the skin and subcutaneous tissue, unspecified
CPT/HCPCS: 87070; 87075; 87077; 87147; 87205; 97597; 99213

== ENCOUNTER → 2018-11-09 09:23 | Outpatient (CLI) | payer MEDICARE, MEDICAID, SELFPAY ==
[2018-08-13 22:55] VITALS: BMI 25.3
[2018-11-09 11:05] LABS: Add Manual Diff / Slide Review NO; Basophils Absolute Auto 100 /uL (0-100); Basophils Percent Auto 0.6 % (0-2); Eosinophils Absolute Auto 800 /uL (0-450); Eosinophils Percent Auto 9.1 % (2-4); Hematocrit 33.6 % (41-53); Hemoglobin 11.2 g/dL (13.5-17.5); Lymphocytes Absolute Auto 2000 /uL (1100-4500); Lymphocytes Percent Auto 22.7 % (25-40); Mean Corpuscular HGB Conc 33.4 % (30-36); Mean Corpuscular Hemoglobin 29.5 PG (26-34); Mean Corpuscular Volume 88.1 fL (80-100); Monocytes Absolute Auto 1000 /uL (0-900); Monocytes Percent Auto 11.7 % (3-14); Neutrophils Absolute Auto 5000 /uL (1500-7000); Neutrophils Percent Auto 55.9 % (50-75); Platelet Count 305 X10^3/uL (150-400); Red Blood Cell Count 3.82 X10^6/uL (4.5-5.9); Red Cell Distribution Width 13.7 % (11.6-14.8); White Blood Cell Count 8.9 X10^3/uL (4.5-11.0)
[2018-11-09 11:53] LABS: Erythrocyte Sedimentation Rate 40 MM/HR (0-15)
[2018-11-09 12:25] LABS: Alanine Aminotransferase 27 IU/L (21-72); Albumin 3.8 g/dL (3.5-5.0); Albumin Globulin Ratio 1.5 (1.0-2.8); Alkaline Phosphatase 124 U/L (38-126); Aspartate Aminotransferase 23 IU/L (17-59); BUN Creatinine Ratio 21.1 (6-22); Bilirubin Total 0.4 mg/dL (0.2-1.3); Blood Urea Nitrogen 19 mg/dL (9-20); C-Reactive Protein Quant 8.6 mg/dL (<1.0); Calcium 9.3 mg/dL (8.4-10.2); Carbon Dioxide 30 mmol/L (22-32); Chloride 101 mmol/L (98-107); Estimated Glomerular Filt Rate > 60.0 mL/min (>60); Globulin 2.6 g/dL (1.7-4.1); Glucose 201 mg/dL (80-110); HEMOLYSIS < 15 (0-50); Potassium 5.3 mmol/L (3.4-5.1); Sodium 140 mmol/L (137-145); Total Protein 6.4 g/dL (6.3-8.2)
[2018-11-09 12:30] LABS: Prealbumin 19.9 mg/dL (17.6-36.0)
[2018-11-09 15:14] LABS: Hemoglobin A1C% w Est Avg Glu 7.2 % (4.0-6.0)
== END ==
PROVIDERS: Family Provider Nurse Practitioner Family; PCP Internal Medicine; Visit Provider Family Medicine
DX: E11.621 Type 2 diabetes mellitus with foot ulcer (principal); L97.512 Non-pressure chronic ulcer of other part of right foot with fat layer exposed; S91.105A Unspecified open wound of left lesser toe(s) without damage to nail, initial encounter; L03.115 Cellulitis of right lower limb
CPT/HCPCS: 36415; 73630; 80053; 83036; 84134; 85025; 85651; 86140; 99214

== ENCOUNTER → 2018-11-09 09:38 | Outpatient (CLI) | payer MEDICARE, MEDICAID, SELFPAY ==
[2018-08-13 22:55] VITALS: BMI 25.3
--- NOTE | 2018-11-09 | DI.RAD.S_ITS ---
PROCEDURE: XR FOOT RT MIN 3V INDICATIONS: Evaluate for osteomyelitis TECHNIQUE: 3 views of the foot were acquired. COMPARISON: [facility], CR, XR FOOT RT MIN 3V, 08/13/2018, 20:00. [facility], CR, XR FOOT RT MIN 3V, 06/14/2018, 13:08. FINDINGS: Bones: No fractures or dislocations. No suspicious bony lesions. There is generalized osteopenia involving the midfoot and hindfoot, but no area of ostiolysis that would indicate likelihood of underlying osteomyelitis. Soft tissues: No tibiotalar joint effusion. Achilles tendon appears normal. IMPRESSION: Osteopenia without clear evidence of osteomyelitis. Depending on the clinical status followup by nuclear medicine bone scan may be warranted (three-phase study). Alternatively, MR scanning with contrast could be utilized. Dictated by: Harish Kumar M.D. on 11/09/2018 at 12:20 Approved by: Harish Kumar M.D. on 11/09/2018 at 12:23
== END ==
PROVIDERS: Family Provider Nurse Practitioner Family; PCP Internal Medicine; Visit Provider Family Medicine
DX: L97.512 Non-pressure chronic ulcer of other part of right foot with fat layer exposed (principal); E11.621 Type 2 diabetes mellitus with foot ulcer; L03.115 Cellulitis of right lower limb
CPT/HCPCS: 73630

== ENCOUNTER → 2018-11-11 13:56 | Outpatient (CLI) | payer MEDICARE, MEDICAID, SELFPAY ==
[2018-08-13 22:55] VITALS: BMI 25.3
== END ==
PROVIDERS: Family Provider Nurse Practitioner Family; PCP Internal Medicine; Visit Provider Family Medicine
DX: E11.621 Type 2 diabetes mellitus with foot ulcer (principal); L97.511 Non-pressure chronic ulcer of other part of right foot limited to breakdown of skin; S90.415A Abrasion, left lesser toe(s), initial encounter
CPT/HCPCS: 11042

== ENCOUNTER → 2018-11-14 09:49 | Outpatient (CLI) | payer MEDICARE, MEDICAID, SELFPAY ==
[2018-08-13 22:55] VITALS: BMI 25.3
--- NOTE | 2018-11-14 | DI.MRI.S_ITS ---
PROCEDURE: MR CERVICAL SPINE WO CON INDICATIONS: Spinal stenosis, cervical region TECHNIQUE: Noncontrast sagittal T1 spin echo and T2 fast spin echo, sagittal STIR, foraminal oblique sagittal T2 fast spin echo, and axial gradient echo or T2 fast spin echo through the cervical spine. COMPARISON: None. FINDINGS: Image quality: Mildly limited by patient motion artifact. Alignment and Curvature: There is reversal of normal cervical spine curvature from C3-C5. There is mild C3-C4 anterolisthesis. Bones: C3-C4 and C4-C5 ankylosis. Mild reactive endplate changes noted adjacent to the C5-C6 disc. Spinal Cord: Visualized spinal cord has normal size and signal. No cerebellar tonsillar herniation. Paraspinous Soft Tissues: No paravertebral masses. Prevertebral soft tissues are normal in thickness. C2-C3: Loss of disc signal. Mild, diffuse disc bulge. Small central disc protrusion. Mild narrowing of the central canal. Mild bilateral facet hypertrophy. Mild bilateral neural foraminal narrowing. No neural impingement. C3-C4: Complete loss of disc substance with osseous ankylosis. Mild narrowing of the central canal. Mild bilateral facet hypertrophy. Severe bilateral neural foraminal narrowing with compression of the exiting C4 nerve roots. C4-C5: Complete loss of disc substance with osseous ankylosis. No central stenosis. Mild bilateral facet hypertrophy. Severe bilateral neural foraminal narrowing with compression of the exiting C5 nerve roots. C5-C6: Loss of disc signal and height. Mild, diffuse disc bulge. Mild bilateral facet hypertrophy. Mild narrowing of the central canal. Severe bilateral neural foraminal narrowing with compression of the exiting C6 nerve roots. C6-C7: Loss of disc signal. Mild diffuse disc bulge. Mild narrowing of the central canal. Mild bilateral facet hypertrophy. Mild bilateral neural foraminal narrowing. No neural impingement. C7-T1: Normal appearance. IMPRESSION: 1. Reversal of normal cervical spine curvature. 2. C3-C4 and C4-C5 osseous ankylosis. 3. Mild C2 and C3, C3-C4, C5-C6 and C6-C7 central canal narrowing. 4. Severe bilateral C3-C4, C4-C5 and C5-C6 neural foraminal narrowing. Mild bilateral C2-C3 and C6 on C7 neural foraminal narrowing. 5. Compression of the exiting bilateral C4 nerve roots, exiting bilateral C5 nerve roots and exiting bilateral C6 nerve roots secondary to neural foraminal narrowing. Please correlate with clinical data. Dictated by: Dasha Reed MD, PhD on 11/14/2018 at 10:53 Approved by: Dasha Reed MD, PhD on 11/14/2018 at 11:05
== END ==
PROVIDERS: Family Provider Nurse Practitioner Family; PCP Internal Medicine; Visit Provider Internal Medicine
DX: M48.02 Spinal stenosis, cervical region (principal); M43.22 Fusion of spine, cervical region; E10.621 Type 1 diabetes mellitus with foot ulcer; L97.511 Non-pressure chronic ulcer of other part of right foot limited to breakdown of skin; S90.412A Abrasion, left great toe, initial encounter
CPT/HCPCS: 72141; 97597

== ENCOUNTER → 2018-11-14 15:04 | Outpatient (CLI) | payer MEDICARE, MEDICAID, SELFPAY ==
[2018-08-13 22:55] VITALS: BMI 25.3
== END ==
PROVIDERS: Family Provider Nurse Practitioner Family; PCP Internal Medicine; Visit Provider Podiatrist Primary Podiatric Medicine
DX: E10.621 Type 1 diabetes mellitus with foot ulcer (principal); L97.511 Non-pressure chronic ulcer of other part of right foot limited to breakdown of skin; S90.412A Abrasion, left great toe, initial encounter
CPT/HCPCS: 97597

== ENCOUNTER → 2018-11-21 16:34 | Outpatient (CLI) | payer MEDICARE, MEDICAID, SELFPAY ==
[2018-08-13 22:55] VITALS: BMI 25.3
== END ==
PROVIDERS: Family Provider Nurse Practitioner Family; PCP Internal Medicine; Visit Provider Podiatrist Primary Podiatric Medicine
DX: L89.893 Pressure ulcer of other site, stage 3 (principal); E08.621 Diabetes mellitus due to underlying condition with foot ulcer; E11.59 Type 2 diabetes mellitus with other circulatory complications; L97.511 Non-pressure chronic ulcer of other part of right foot limited to breakdown of skin; S90.415A Abrasion, left lesser toe(s), initial encounter; R60.0 Localized edema
CPT/HCPCS: 97597

== ENCOUNTER → 2018-11-28 15:31 | Outpatient (CLI) | payer MEDICARE, MEDICAID, SELFPAY ==
[2018-08-13 22:55] VITALS: BMI 25.3
== END ==
PROVIDERS: Family Provider Nurse Practitioner Family; PCP Internal Medicine; Visit Provider Podiatrist Primary Podiatric Medicine
DX: E10.621 Type 1 diabetes mellitus with foot ulcer (principal); L97.511 Non-pressure chronic ulcer of other part of right foot limited to breakdown of skin; R60.0 Localized edema
CPT/HCPCS: 97597

== ENCOUNTER → 2018-12-05 14:59 | Outpatient (CLI) | payer MEDICARE, MEDICAID, SELFPAY ==
[2018-08-13 22:55] VITALS: BMI 25.3
--- NOTE | 2018-12-05 | DI.RAD.S_ITS ---
PROCEDURE: XR TIBIA FUBULA RT 2V INDICATIONS: RT TIB FIB FX TECHNIQUE: 3 views of the tibia and fibula were acquired. COMPARISON: [facility], CR, XR TIBIA FIBULA RT 2V, 06/14/2018, 13:32. FINDINGS: Bones: Partially imaged internal fixation hardware is present within the distal right femur. There is a persistent oblique fracture through the proximal right tibial metadiaphysis. There is mildly increased anterolateral displacement of the distal tibial fracture fragment when compared with prior exam. There is mild callus formation at the proximal tibial fracture site. The previously identified fracture lucency within the proximal right fibular metadiaphysis is less well-seen on this exam. There is moderate degenerative change of the right tibiotalar joint with periarticular sclerosis identified. Soft tissues: There is a small right knee joint effusion. A vascular stent is noted posterior to the distal right femur. IMPRESSION: 1. Mildly worsened displacement of the right proximal tibial metadiaphyseal fracture when compared with prior exam of 06/14/18. 2. Decreased lucency of the right proximal fibular metadiaphyseal fracture when compared with prior exam of 06/14/18, consistent with interval healing. Dictated by: Fritz Infante M.D. on 12/05/2018 at 15:34 Approved by: Fritz Infante M.D. on 12/05/2018 at 15:40
== END ==
PROVIDERS: Family Provider Nurse Practitioner Family; PCP Internal Medicine; Visit Provider Internal Medicine
DX: S82.191G Other fracture of upper end of right tibia, subsequent encounter for closed fracture with delayed healing (principal); S82.831G Other fracture of upper and lower end of right fibula, subsequent encounter for closed fracture with delayed healing; L89.893 Pressure ulcer of other site, stage 3; E08.621 Diabetes mellitus due to underlying condition with foot ulcer; E11.59 Type 2 diabetes mellitus with other circulatory complications
CPT/HCPCS: 73590; 97597

== ENCOUNTER → 2018-12-12 13:46 | Outpatient (CLI) | payer MEDICARE, MEDICAID, SELFPAY ==
[2018-08-13 22:55] VITALS: BMI 25.3
== END ==
PROVIDERS: Family Provider Nurse Practitioner Family; PCP Internal Medicine; Visit Provider Podiatrist Primary Podiatric Medicine
DX: E10.621 Type 1 diabetes mellitus with foot ulcer (principal); E10.40 Type 1 diabetes mellitus with diabetic neuropathy, unspecified; L97.511 Non-pressure chronic ulcer of other part of right foot limited to breakdown of skin; R60.0 Localized edema
CPT/HCPCS: 15275; Q4196

== ENCOUNTER → 2018-12-19 12:40 | Outpatient (CLI) | payer MEDICARE, MEDICAID, SELFPAY ==
[2018-08-13 22:55] VITALS: BMI 25.3
== END ==
PROVIDERS: Family Provider Nurse Practitioner Family; PCP Internal Medicine; Visit Provider Podiatrist Primary Podiatric Medicine
DX: E11.621 Type 2 diabetes mellitus with foot ulcer (principal); L97.511 Non-pressure chronic ulcer of other part of right foot limited to breakdown of skin; L97.521 Non-pressure chronic ulcer of other part of left foot limited to breakdown of skin; R60.0 Localized edema
CPT/HCPCS: 97597; 99212

== ENCOUNTER → 2018-12-20 08:11 | Outpatient (ROUT) | payer MEDICARE, MEDICAID, SELFPAY ==
[2018-08-13 22:55] VITALS: BMI 25.3
[2018-12-20 08:53] LABS: Add Manual Diff / Slide Review NO; Basophils Absolute Auto 100 /uL (0-100); Basophils Percent Auto 0.8 % (0-2); Eosinophils Absolute Auto 1000 /uL (0-450); Eosinophils Percent Auto 10.5 % (2-4); Hematocrit 34.3 % (41-53); Hemoglobin 11.6 g/dL (13.5-17.5); Lymphocytes Absolute Auto 2600 /uL (1100-4500); Lymphocytes Percent Auto 26.8 % (25-40); Mean Corpuscular HGB Conc 33.8 % (30-36); Mean Corpuscular Hemoglobin 29.2 PG (26-34); Mean Corpuscular Volume 86.6 fL (80-100); Monocytes Absolute Auto 800 /uL (0-900); Monocytes Percent Auto 8.5 % (3-14); Neutrophils Absolute Auto 5100 /uL (1500-7000); Neutrophils Percent Auto 53.4 % (50-75); Platelet Count 301 X10^3/uL (150-400); Red Blood Cell Count 3.96 X10^6/uL (4.5-5.9); Red Cell Distribution Width 14.1 % (11.6-14.8); White Blood Cell Count 9.6 X10^3/uL (4.5-11.0)
[2018-12-20 09:12] LABS: BUN Creatinine Ratio 26.3 (6-22); Blood Urea Nitrogen 21 mg/dL (9-20); Calcium 8.8 mg/dL (8.4-10.2); Carbon Dioxide 32 mmol/L (22-32); Chloride 99 mmol/L (98-107); Estimated Glomerular Filt Rate > 60.0 mL/min (>60); Glucose 173 mg/dL (80-110); HEMOLYSIS < 15 (0-50); Potassium 4.2 mmol/L (3.4-5.1); Sodium 138 mmol/L (137-145)
== END ==
PROVIDERS: Family Provider Nurse Practitioner Family; PCP Internal Medicine; Visit Provider Nurse Practitioner Family
DX: I10 Essential (primary) hypertension (principal); R60.9 Edema, unspecified; D64.9 Anemia, unspecified
CPT/HCPCS: 36415; 80048; 85025

== ENCOUNTER → 2018-12-26 13:15 | Outpatient (CLI) | payer MEDICARE, MEDICAID, SELFPAY ==
[2018-08-13 22:55] VITALS: BMI 25.3
== END ==
PROVIDERS: Family Provider Nurse Practitioner Family; PCP Internal Medicine; Visit Provider Podiatrist Primary Podiatric Medicine
DX: E11.621 Type 2 diabetes mellitus with foot ulcer (principal); L97.521 Non-pressure chronic ulcer of other part of left foot limited to breakdown of skin; L97.511 Non-pressure chronic ulcer of other part of right foot limited to breakdown of skin
CPT/HCPCS: 97597

== ENCOUNTER → 2019-01-12 07:34 | Outpatient (ROUT) | payer MEDICARE, MEDICAID, SELFPAY ==
[2018-08-13 22:55] VITALS: BMI 25.3
[2019-01-12 08:13] LABS: Add Manual Diff / Slide Review NO; Basophils Absolute Auto 100 /uL (0-100); Basophils Percent Auto 0.8 % (0-2); Eosinophils Absolute Auto 800 /uL (0-450); Eosinophils Percent Auto 6.5 % (2-4); Hematocrit 35.5 % (41-53); Hemoglobin 11.6 g/dL (13.5-17.5); Lymphocytes Absolute Auto 3100 /uL (1100-4500); Mean Corpuscular HGB Conc 32.8 % (30-36); Mean Corpuscular Hemoglobin 28.7 PG (26-34); Mean Corpuscular Volume 87.6 fL (80-100); Monocytes Absolute Auto 1000 /uL (0-900); Monocytes Percent Auto 7.7 % (3-14); Neutrophils Absolute Auto 7900 /uL (1500-7000); Platelet Count 307 X10^3/uL (150-400); Red Blood Cell Count 4.05 X10^6/uL (4.5-5.9); Red Cell Distribution Width 14.1 % (11.6-14.8); White Blood Cell Count 12.9 X10^3/uL (4.5-11.0)
[2019-01-12 08:48] LABS: Alanine Aminotransferase 21 IU/L (21-72); Albumin 3.6 g/dL (3.5-5.0); Albumin Globulin Ratio 1.3 (1.0-2.8); Alkaline Phosphatase 109 U/L (38-126); Aspartate Aminotransferase 23 IU/L (17-59); BUN Creatinine Ratio 15.6 (6-22); Bilirubin Total 0.3 mg/dL (0.2-1.3); Blood Urea Nitrogen 14 mg/dL (9-20); Calcium 9.4 mg/dL (8.4-10.2); Carbon Dioxide 32 mmol/L (22-32); Chloride 99 mmol/L (98-107); Estimated Glomerular Filt Rate > 60.0 mL/min (>60); Globulin 2.7 g/dL (1.7-4.1); Glucose 145 mg/dL (80-110); HEMOLYSIS < 15 (0-50); Potassium 3.9 mmol/L (3.4-5.1); Sodium 136 mmol/L (137-145); Total Protein 6.3 g/dL (6.3-8.2)
== END ==
PROVIDERS: Family Provider Nurse Practitioner Family; PCP Internal Medicine; Visit Provider Internal Medicine
DX: Z79.899 Other long term (current) drug therapy (principal)
CPT/HCPCS: 36415; 80053; 85025

== ENCOUNTER → 2019-01-16 12:21 | Outpatient (CLI) | payer MEDICARE, MEDICAID, SELFPAY ==
[2019-01-26 01:30] VITALS: BMI 26.0
== END ==
PROVIDERS: Family Provider Nurse Practitioner Family; PCP Internal Medicine; Visit Provider Podiatrist Primary Podiatric Medicine
DX: E11.621 Type 2 diabetes mellitus with foot ulcer (principal); L97.511 Non-pressure chronic ulcer of other part of right foot limited to breakdown of skin; E11.59 Type 2 diabetes mellitus with other circulatory complications
CPT/HCPCS: 11042; 99213

== ENCOUNTER → 2019-01-23 14:27 | Outpatient (CLI) | payer MEDICARE, MEDICAID, SELFPAY ==
[2018-08-13 22:55] VITALS: BMI 25.3
== END ==
PROVIDERS: Family Provider Nurse Practitioner Family; PCP Internal Medicine; Visit Provider Podiatrist Primary Podiatric Medicine
DX: E11.621 Type 2 diabetes mellitus with foot ulcer (principal); L97.511 Non-pressure chronic ulcer of other part of right foot limited to breakdown of skin
CPT/HCPCS: 11042

== ENCOUNTER 2019-01-25 20:21 | Inpatient (IN) | payer MEDICARE, MEDICAID, SELFPAY ==
[2018-08-13 22:55] VITALS: BMI 25.3
--- NOTE | 2019-01-25 20:24 | ED_ITS ---
HPI - Fever General Chief Complaint: Fever Stated Complaint: Fever Time Seen by Provider: 01/25/19 20:22 Source: EMS Mode of arrival: EMS Limitations: altered mental status History of Present Illness HPI Narrative: The patient arrives by EMS from [facility]. The patient has a mild cough. He developed fever today. The patient is minimally communicative. He answers occasional questions, generally with 1 or 2 words. This is baseline mental status. He has no specific complaints of concern. He does have the fever. He was last seen here for cellulitis with a fever several months ago. The patient was cooperative with exam. There is no obvious airway or sinus complaints. He has no chest complaints. He has no abdominal discomfort, nausea or diarrhea. He nausea he has not have urinary complaints. Records indicate prior decubitus ulcers, he is under treatment for skin lesions on his right leg. History obtained from the patient has minimal, noted on prior exams here in the ER. Related Data Home Medications Medication Instructions Recorded Confirmed Maalox Maximum Strength 30 ml PO PRN PRN #0 06/29/17 01/25/19 acetaminophen 2 tab PO Q4HP PRN #0 06/29/17 08/13/18 aspirin 325 mg PO QDAY #0 06/29/17 01/25/19 atorvastatin 80 mg PO HS #0 06/29/17 01/25/19 bisacodyl 10 mg ND PRN PRN #0 06/29/17 01/25/19 bisacodyl [Fleet Laxative] 5 mg PO PRN PRN #0 06/29/17 08/13/18 clopidogrel 75 mg PO QDAY #0 06/29/17 01/25/19 duloxetine 60 mg PO QDAY #0 06/29/17 01/25/19 levothyroxine 50 mcg PO QAM #0 06/29/17 01/25/19 metoprolol succinate [Toprol XL] 12.5 mg PO QDAY #0 06/29/17 01/25/19 omeprazole 20 mg PO DAILY #0 06/29/17 01/25/19 polyethylene glycol 3350 [Miralax] 17 gm PO QDAY #0 06/29/17 01/25/19 sennosides [senna] 2 tab PO QDAY #0 06/29/17 01/25/19 artifi.tears(hypromellose)(PF) 0.3 2 ea EYE-BOTH .q12 PRN ml 11/25/17 01/25/19 % eye drops baclofen 10 mg tablet 10 mg PO TID 11/25/17 01/25/19 clonazepam 0.5 mg tablet 0.5 mg PO TID PRN 11/25/17 01/25/19 ibuprofen 400 mg tablet 400 mg PO Q4H PRN 11/25/17 01/25/19 insulin aspart U-100 100 unit/mL 100 unit SUBCUT DAILY 11/25/17 08/13/18 (3 mL) subcutaneous pen lisinopril 2.5 mg tablet 2.5 mg PO DAILY 11/25/17 01/25/19 nystatin 100,000 unit/gram topical 1 applictn TOP Q12H PRN 11/25/17 01/25/19 powder docusate sodium 2 tab PO BID 03/05/18 01/25/19 magnesium hydroxide [Milk of 30 ml PO DAILY PRN 03/05/18 01/25/19 Magnesia] ammonium lactate 1 applic TOPICAL BID 08/13/18 01/25/19 ascorbic acid (vitamin C) 500 mg PO DAILY 08/13/18 01/25/19 bisacodyl 2 tab PO BEDTIME PRN 08/13/18 01/25/19 calcium carbonate 1,200 mg PO DAILY 08/13/18 01/25/19 cholecalciferol (vitamin D3) 1,000 unit PO DAILY 08/13/18 01/25/19 fluticasone propionate 1 spray INTRANASAL DAILY 08/13/18 01/25/19 furosemide [Lasix] 40 mg PO QAM 08/13/18 01/25/19 guaifenesin [Mucinex] 600 mg PO Q12H 08/13/18 01/25/19 hydroxyzine pamoate 1 - 2 tab PO Q6H PRN 08/13/18 08/13/18 insulin glargine 8 unit SUBCUT BID 08/13/18 08/13/18 lidocaine 1 patch TOPICAL Q12HR 08/13/18 08/13/18 loperamide [Imodium A-D] 2 mg PO DAILY PRN 08/13/18 08/13/18 mirtazapine 15 mg PO DAILY 08/13/18 01/25/19 morphine [MS Contin] 30 mg PO BID 08/13/18 01/25/19 ondansetron 4 mg PO Q4H PRN 08/13/18 01/25/19 oxycodone 3 tab PO Q4H PRN 08/13/18 01/25/19 vitamin B complex [B 1 tab PO DAILY 08/13/18 01/25/19 Complex-Vitamin B12] amoxicillin 875 mg-potassium 1 tab PO BID 11/08/18 11/08/18 clavulanate 125 mg tablet dextromethorphan HBr 30 mg/5 mL 60 mg PO BID 11/08/18 01/25/19 oral liquid Allergies Allergy/AdvReac Type Severity Reaction Status Date / Time codeine [CODEINE] AdvReac Unknown nausea Verified 01/25/19 20:27 Review of Systems Review of Systems Narrative: History an ROS data obtained from the patient's minimal. He indicates no headache, sore throat, no obvious chest discomfort, nose abdominal discomfort, and much of this is but nods or minimal mumbled words. Review of systems is otherwise unobtainable to the patient's baseline medical condition. [facility] Medical History C3 spinal cord injury (Acute) C4 spinal cord injury (Acute) CVA (cerebral vascular accident) (Acute) Diabetes (Acute) Gastroesophageal reflux disease (Acute) Hyperlipidemia (Acute) Hypertension (Acute) Surgical History No pertinent past surgical history (Acute) Family History Mother Cancer Father Lung disease Social History household members: caregiver Smoking Status: Current every day smoker alcohol intake: never substance use type: does not use Family History Mother Cancer Father Lung disease Social History (Updated 01/25/19 @ 21:19 by Estuardo Blue MD) household members: caregiver Smoking Status: Current every day smoker alcohol intake: never substance use type: does not use additional social history: He currently resides in He currently resides in [facility]. Exam Initial Vital Signs Initial Vital Signs: Vital Signs Temperature 102.9 F H 01/25/19 20:27 Pulse Rate 122 H 01/25/19 20:27 Respiratory Rate 15 01/25/19 20:27 Blood Pressure 154/73 H 01/25/19 20:27 Pulse Oximetry 93 01/25/19 20:27 Const General: cooperative, comfortable and other (Minimally responsive.) Orientation: oriented to place and oriented to time Limitations: altered mental status [facility] Head: normal to inspection, normocephalic and atraumatic Ears: TM's normal bilaterally Nose: nares normal Face and sinus: normal facial exam and no sinus tenderness Mouth: oral mucosae normal and moist mucous membranes Throat: posterior oropharynx normal Eyes General: appearance normal, both eyes and all related structures Eyelids: eyelids normal Conjunctivae: conjunctivae normal Sclera: sclerae normal Pupils: PERRL EOM: EOM intact bilaterally Neck Neck: no meningeal signs, No lymphadenopathy and No JVD Chest Chest: normal inspection of the chest Resp Auscultation: diminished lung sounds and rales on the right in the lower lung hernandez Cardio Rate: tachycardic Rhythm: regular rhythm Heart Sounds: S1 normal, S2 normal, no click, no gallops, no murmurs and no rubs Pulses: normal peripheral pulses GI Inspection: non-distended Palpation: soft, no hepatosplenomegaly, No guarding, No pulsatile mass and No tender Auscultation: normal bowel sounds Back/Spine/Pelvis Back: No CVA tenderness and No erythema Skin Other: Abrasion to the tip of the right great toe. No significant skin lesions otherwise noted. Perineum and buttocks were without skin breakdown or infection per nurse evaluation. Neuro Other: Disoriented. Minimal verbal responses. This is baseline. He moves all extremities, but has 3+/5 weakness in all extremities. Extrem General: full ROM, no calf tenderness and edema (Left calf. Negative Homans sign.) Other: Normal dorsalis pedis pulses bilaterally. Abrasion to the tip of the right great toe. No infection. Psych Other: Minimally responsive Course Course Course Narrative: The patient arrived with fever and tachycardia. O2 sats were in the mid 90s, and he was normotensive. IV fluids were initiated, Rocephin was given. Initial concern was sepsis. He has RLL pneumonia, but does not meet criteria for sepsis. Blood cultures were obtained. RT was summoned to request a sputum culture, a sputum culture was not obtainable. A respiratory PCR panel was ordered. The patient was discussed with the hospitalist, BOO Mcgrath. The patient is significantly compromised in self-care, he will be admitted ongoing pneumonia care. Orders Ordered: ED Orders 01/25/19 20:22 EKG-12 Lead Routine 01/25/19 20:25 XR chest 1V Stat 01/25/19 20:36 Complete Blood Count AUTO DIFF Stat Comprehensive Metabolic Panel Stat Lactate (Lactic Acid) Stat Lipase Stat Procalcitonin Stat Prothrombin Time INR Stat 01/25/19 20:44 Blood Culture Stat 01/25/19 22:38 Respiratory Panel (Film Array) Stat Sputum Culture Stat Discontinued Medications Acetaminophen (Tylenol) 650 mg PO NOW ONE Stop: 01/25/19 20:28 Last Admin: 01/25/19 21:01 Dose: 650 mg Documented by: CAITLIN Sodium Chloride (Normal Saline 0.9%) 1,000 mls @ 1,000 mls/hr IV BOLUS ONE Stop: 01/25/19 21:26 Last Infusion: 01/25/19 22:04 Dose: 0 mls/hr Documented by: Admin: 01/25/19 21:01 Dose: 1,000 mls/hr Documented by: CAITLIN Ceftriaxone Sodium/Dextrose (Rocephin) 2 gm in 50 mls @ 100 mls/hr IV NOW ONE Stop: 01/25/19 22:25 Last Infusion: 01/25/19 22:44 Dose: 0 mls/hr Documented by: Admin: 01/25/19 22:06 Dose: 100 mls/hr Documented by: CAITLIN Vital Signs Vital signs: Vital Signs - 8 hr 01/25/19 20:27 01/25/19 22:06 01/25/19 22:09 Temperature 102.9 F H 101.6 F H 101.6 F H Pulse Rate 122 H 114 H Respiratory Rate 15 11 L Blood Pressure 154/73 H Blood Pressure [Right Arm] 137/57 L Pulse Oximetry 93 93 MDM - Fever Lab Data Result diagrams: 01/25/19 20:36 01/25/19 20:36 Labs: Lab Results 01/25/19 01/25/19 01/25/19 Range/Units 20:36 20:36 20:36 WBC 25.3 H (4.5-11.0) X10^3/uL RBC 3.75 L (4.5-5.9) X10^6/uL Hgb 11.0 L (13.5-17.5) g/dL Hct 32.9 L (41-53) % MCV 87.5 (80-100) fL MCH 29.4 (26-34) PG MCHC 33.6 (30-36) % RDW 14.3 (11.6-14.8) % Plt Count 314 (150-400) X10^3/uL Neut % (Auto) 91.6 H (50-75) % Lymph % (Auto) 2.2 L (25-40) % Larimer % (Auto) 4.8 (3-14) % Eos % (Auto) 1.3 L (2-4) % Baso % (Auto) 0.1 (0-2) % Neut # (Auto) 21740 H (0692-4690) /uL Lymph # (Auto) 600 L (3123-9143) /uL Larimer # (Auto) 1200 H (0-900) /uL Eos # (Auto) 300 (0-450) /uL Baso # (Auto) 0 (0-100) /uL PT 12.0 (10.1-12.7) SECONDS INR 1.0 (0.9-1.3) Sodium (137-145) mmol/L Potassium (3.4-5.1) mmol/L Chloride (98-107) mmol/L Carbon Dioxide (22-32) mmol/L BUN (9-20) mg/dL Creatinine (0.66-1.25) mg/dL Estimated GFR (>60) mL/min BUN/Creatinine Ratio (6-22) Glucose (80-110) mg/dL Lactate (0.7-2.1) mmol/L Calcium (8.4-10.2) mg/dL Total Bilirubin (0.2-1.3) mg/dL AST (17-59) IU/L ALT (21-72) IU/L Alkaline Phosphatase (38-126) U/L Total Protein (6.3-8.2) g/dL Albumin (3.5-5.0) g/dL Globulin (1.7-4.1) g/dL Albumin/Globulin Ratio (1.0-2.8) Lipase (23-300) U/L Procalcitonin 0.16 (<0.5) ng/mL 01/25/19 01/25/19 01/25/19 Range/Units 20:36 20:36 20:36 WBC (4.5-11.0) X10^3/uL RBC (4.5-5.9) X10^6/uL Hgb (13.5-17.5) g/dL Hct (41-53) % MCV (80-100) fL MCH (26-34) PG MCHC (30-36) % RDW (11.6-14.8) % Plt Count (150-400) X10^3/uL Neut % (Auto) (50-75) % Lymph % (Auto) (25-40) % Larimer % (Auto) (3-14) % Eos % (Auto) (2-4) % Baso % (Auto) (0-2) % Neut # (Auto) (0123-1677) /uL Lymph # (Auto) (6646-7430) /uL Larimer # (Auto) (0-900) /uL Eos # (Auto) (0-450) /uL Baso # (Auto) (0-100) /uL PT (10.1-12.7) SECONDS INR (0.9-1.3) Sodium 138 (137-145) mmol/L Potassium 4.3 (3.4-5.1) mmol/L Chloride 99 (98-107) mmol/L Carbon Dioxide 29 (22-32) mmol/L BUN 36 H (9-20) mg/dL Creatinine 1.40 H (0.66-1.25) mg/dL Estimated GFR 51.4 L (>60) mL/min BUN/Creatinine Ratio 25.7 H (6-22) Glucose 239 H (80-110) mg/dL Lactate 1.5 (0.7-2.1) mmol/L Calcium 8.9 (8.4-10.2) mg/dL Total Bilirubin 0.4 (0.2-1.3) mg/dL AST 29 (17-59) IU/L ALT 28 (21-72) IU/L Alkaline Phosphatase 136 H (38-126) U/L Total Protein 7.0 (6.3-8.2) g/dL Albumin 4.0 (3.5-5.0) g/dL Globulin 3.0 (1.7-4.1) g/dL Albumin/Globulin Ratio 1.3 (1.0-2.8) Lipase 13 L (23-300) U/L Procalcitonin (<0.5) ng/mL Urine Dip Bedside Urine Glucose 100 mg/dl Bedside Urine Bilirubin - Negative Bedside Urine Ketone - Negative Urine Specific Grant 1.015 Bedside Urine Occult Blood - Negative Bedside Urine pH 6.0 Bedside Urine Protein - Negative Bedside Urine Urobilinogen - Negative Bedside Urine Nitrite - Negative Bedside Urine Leukocytes - Negative Esterase Imaging Data Chest x-ray: Radiologist's impression: Estuardo Blue MD Find Patient Imaging - Ray Foster 63 M 1955 ACTIVITY DATE EXAM STATUS AUTHOR 01/25/19 20:25 Signed Isa Guevara [address] [address] XRay Report Signed Patient: Ray Foster DMR#: [id number] : 6Acct:[id number] Age/Sex: 63 / MDate of Service: 01/25/19 Loc: ED Accession Number: [id number] Procedure: XR chest 1V Ordering Provider: Estuardo Blue MD PROCEDURE: XR CHEST 1V INDICATIONS: Fever. Cough. TECHNIQUE: One view of the chest was acquired. COMPARISON: [facility], , XR CHEST 1V, 08/13/2018, 19:58. FINDINGS: Surgical changes and devices: None. Lungs and pleura: Hazy alveolar opacity along the right diaphragmatic contour.. No pleural effusions or pneumothorax. Mediastinum: Mediastinal contours appear normal. Heart size is normal. 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 Healed left rib fractures. Overlying soft tissues appear unremarkable. IMPRESSION: Right infrahilar alveolar opacity seen is irregularity of the diaphragmatic contour suspicious for pneumonia, infectious or aspiration. Dictated by: Isa Guevara M.D. on 01/25/2019 at 21:49 Approved by: Isa Guevara M.D. on 01/25/2019 at 21:50 ECG Data Attestation: I personally reviewed and interpreted this ECG as follows: (Sinus tachycardia. Nonspecific ST T wave changes. Normal intervals. No ectopy. No acute findings other than tachycardia.) Interpretation: Sinus tachycardia rate 122 beats per minute. Nonspecific ST T wave changes. Normal intervals. No ectopy. Critical Care Time Critical Care Time Critical Care Time: Yes Total Critical Care Time: 40 Attestation: Patient's care involved the initial limited conversation with the patient, review of medical records, evaluation of lab and radiology data, multiple clinical decisions, discussing findings with the patient and eventually consultation with the admitting hospitalist. Discharge Plan Departure Patient Disposition: Admitted As Inpatient Clinical Impression: RLL pneumonia Qualifiers: Pneumonia type: due to unspecified organism Qualified Code(s): J18.1 - Lobar pneumonia, unspecified organism Admit Date/Time: 01/25/19 22:59 Admit Provider: Huyen Mcgrath
[2019-01-25 20:27] VITALS: BP 154/73; PULSE 122; RESP 15; TEMP 39.4; O2SAT 93
[2019-01-25 20:58] LABS: Add Manual Diff / Slide Review NO; Basophils Absolute Auto 0 /uL (0-100); Basophils Percent Auto 0.1 % (0-2); Eosinophils Absolute Auto 300 /uL (0-450); Eosinophils Percent Auto 1.3 % (2-4); Hematocrit 32.9 % (41-53); Lymphocytes Absolute Auto 600 /uL (1100-4500); Lymphocytes Percent Auto 2.2 % (25-40); Mean Corpuscular HGB Conc 33.6 % (30-36); Mean Corpuscular Hemoglobin 29.4 PG (26-34); Mean Corpuscular Volume 87.5 fL (80-100); Monocytes Absolute Auto 1200 /uL (0-900); Monocytes Percent Auto 4.8 % (3-14); Neutrophils Absolute Auto 23200 /uL (1500-7000); Neutrophils Percent Auto 91.6 % (50-75); Platelet Count 314 X10^3/uL (150-400); Red Blood Cell Count 3.75 X10^6/uL (4.5-5.9); Red Cell Distribution Width 14.3 % (11.6-14.8); White Blood Cell Count 25.3 X10^3/uL (4.5-11.0)
[2019-01-25] MEDS: ACETAMINOPHEN 325 MG TABLET 650 MG PO (21:01)
[2019-01-25] MEDS: SODIUM CHLORIDE 0.9% 1,000 ML 1000 ML IV (21:01)
[2019-01-25 21:12] LABS: Alanine Aminotransferase 28 IU/L (21-72); Albumin Globulin Ratio 1.3 (1.0-2.8); Alkaline Phosphatase 136 U/L (38-126); Aspartate Aminotransferase 29 IU/L (17-59); BUN Creatinine Ratio 25.7 (6-22); Bilirubin Total 0.4 mg/dL (0.2-1.3); Blood Urea Nitrogen 36 mg/dL (9-20); Calcium 8.9 mg/dL (8.4-10.2); Carbon Dioxide 29 mmol/L (22-32); Chloride 99 mmol/L (98-107); Estimated Glomerular Filt Rate 51.4 mL/min (>60); Glucose 239 mg/dL (80-110); HEMOLYSIS < 15 (0-50); Lactate (Lactic Acid) 1.5 mmol/L (0.7-2.1); Lipase 13 U/L (23-300); Potassium 4.3 mmol/L (3.4-5.1); Sodium 138 mmol/L (137-145)
[2019-01-25 21:30] LABS: Procalcitonin 0.16 ng/mL (<0.5)
[2019-01-25 22:06] VITALS: TEMP 38.7
[2019-01-25] MEDS: CEFTRIAXONE 2 GM/50 ML FROZ.PIGGY IV (22:06)
[2019-01-25 22:09] VITALS: BP 137/57; PULSE 114; RESP 11; TEMP 38.7; O2SAT 93
[2019-01-25 22:47] VITALS: PULSE 112; RESP 16; O2SAT 92
[2019-01-25 23:01] VITALS: BP 118/56; PULSE 112; RESP 15; O2SAT 92
[2019-01-26] VITALS (22 sets, daily range): BP systolic 122–142; BP diastolic 51–98; PULSE 20–114; RESP 16–24; TEMP 37.4–39.4; O2SAT 92–97; BMI 26.0
[2019-01-26 00:26] LABS: Adenovirus Not Detected (Not Detect); Bordetella pertussis Not Detected (Not Detect); Chlamydophila pneumoniae Not Detected (Not Detect); Coronavirus 229E Not Detected (Not Detect); Coronavirus HKU1 Not Detected (Not Detect); Coronavirus NL 63 Not Detected (Not Detect); Coronavirus OC43 Not Detected (Not Detect); Human Metapneumovirus Not Detected (Not Detect); Human Rhinovirus/Enterovirus Not Detected (Not Detect); Influenza A Not Detected (Not Detect); Influenza B Not Detected (Not Detect); Mycoplasma pneumoniae Not Detected (Not Detect); Parainfluenza Virus 1 Not Detected (Not Detect); Parainfluenza Virus 2 Not Detected (Not Detect); Parainfluenza Virus 3 Not Detected (Not Detect); Parainfluenza Virus 4 Not Detected (Not Detect); Respiratory Syncytial Virus Not Detected (Not Detect)
[2019-01-26 01:22] LABS: Hemoglobin A1C% w Est Avg Glu 7.5 % (4.0-6.0)
--- NOTE | 2019-01-26 01:32 | P.HP_ITS ---
History of Present Illness History of Present Illness Date Patient Seen: 01/26/19 Time Patient Seen: 00:01 Chief complaint: Fever Narrative: Ray Foster is a 63-year-old male resident of [facility] with a complex mental ankle history consisting of a head injury, multiple strokes, ND diagnosed earlier this year, diabetes type 1, was sent over here from the facility with a temperature of 101?. He was noted in the ED to have very coarse lung sounds, mildly hypoxemic with an oxygen saturation of 94%, with a elevated heart rate and a decreased blood pressure. The patient is unable to provide much of a history appearing to be due to speech impairment and lethargy. His step-mother is present in the room to provide some history. She stated that he did have a fever and then started to vomit as well as have a productive cough. He denies any problems with his vision, denies sore throat even though he has a cough, and denies chest pain he does endorse having shortness of breath and a productive cough, he denies having any abdominal pain, he denies dysuria diarrhea or constipation, he does have pain in his left big toe. Patient History Medical History C3 spinal cord injury (Acute) C4 spinal cord injury (Acute) CVA (cerebral vascular accident) (Acute) Diabetes (Acute) Gastroesophageal reflux disease (Acute) Hyperlipidemia (Acute) Hypertension (Acute) Surgical History (Updated 01/26/19 @ 01:41 by BOO Anderson) History of carotid endarterectomy (Acute) History of coronary artery stent placement (Acute) No pertinent past surgical history (Acute) Family History (Updated 01/26/19 @ 01:43 by BOO Anderson) Mother Cancer Father Lung disease Hyperlipidemia Brother Lupus Social History (Updated 01/25/19 @ 21:19 by Estuardo Blue MD) household members: caregiver Smoking Status: Current every day smoker alcohol intake: current substance use type: does not use additional social history: He currently resides in He currently resides in [facility]. Family & Social History Family History (Updated 01/26/19 @ 01:43 by BOO Anedrson) Mother Cancer Father Lung disease Hyperlipidemia Brother Lupus Social History: household members caregiver Safety & Behavioral: Feels Safe in Current Yes Environment Been Physically Hurt or No Threatened By a Person Tobacco & Substance use: Tobacco type cigarettes Smoking Status Current every day smoker alcohol intake never alcohol intake frequency a few times a week Substance Use Type does not use Meds Home Medications and Allergies Home Medications Medication Instructions Recorded Confirmed Type Maalox Maximum Strength 30 ml PO PRN PRN #0 06/29/17 01/25/19 History acetaminophen 2 tab PO Q4HP PRN #0 06/29/17 01/25/19 History aspirin 325 mg PO QDAY #0 06/29/17 01/25/19 History atorvastatin 80 mg PO HS #0 06/29/17 01/25/19 History bisacodyl 10 mg CA PRN PRN #0 06/29/17 01/25/19 History bisacodyl [Fleet Laxative] 5 mg PO PRN PRN #0 06/29/17 01/25/19 History clopidogrel 75 mg PO QDAY #0 06/29/17 01/25/19 History duloxetine 60 mg PO QDAY #0 06/29/17 01/25/19 History levothyroxine 50 mcg PO QAM #0 06/29/17 01/25/19 History metoprolol succinate [Toprol XL] 12.5 mg PO QDAY #0 06/29/17 01/25/19 History omeprazole 20 mg PO DAILY #0 06/29/17 01/25/19 History polyethylene glycol 3350 [Miralax] 17 gm PO QDAY #0 06/29/17 01/25/19 History sennosides [senna] 2 tab PO QDAY #0 06/29/17 01/25/19 History artifi.tears(hypromellose)(PF) 0.3 2 ea EYE-BOTH .q12 PRN ml 11/25/17 01/25/19 History % eye drops baclofen 10 mg tablet 10 mg PO TID 11/25/17 01/25/19 History clonazepam 0.5 mg tablet 0.5 mg PO TID PRN 11/25/17 01/25/19 History ibuprofen 400 mg tablet 400 mg PO Q4H PRN 11/25/17 01/25/19 History insulin aspart U-100 100 unit/mL 100 unit SUBCUT QID 11/25/17 01/25/19 History (3 mL) subcutaneous pen lisinopril 2.5 mg tablet 2.5 mg PO DAILY 11/25/17 01/25/19 History nystatin 100,000 unit/gram topical 1 applictn TOP Q12H PRN 11/25/17 01/25/19 History powder docusate sodium 2 tab PO BID 03/05/18 01/25/19 History magnesium hydroxide [Milk of 30 ml PO DAILY PRN 03/05/18 01/25/19 History Magnesia] ammonium lactate 1 applic TOPICAL BID 08/13/18 01/25/19 History ascorbic acid (vitamin C) 500 mg PO DAILY 08/13/18 01/25/19 History bisacodyl 2 tab PO BEDTIME PRN 08/13/18 01/25/19 History calcium carbonate 1,200 mg PO DAILY 08/13/18 01/25/19 History cholecalciferol (vitamin D3) 1,000 unit PO DAILY 08/13/18 01/25/19 History fluticasone propionate 1 spray INTRANASAL DAILY 08/13/18 01/25/19 History furosemide [Lasix] 40 mg PO QAM 08/13/18 01/25/19 History guaifenesin [Mucinex] 600 mg PO Q12H 08/13/18 01/25/19 History hydroxyzine pamoate 1 - 2 tab PO Q6H PRN 08/13/18 01/25/19 History insulin glargine 8 unit SUBCUT BID 08/13/18 01/25/19 History mirtazapine 15 mg PO DAILY 08/13/18 01/25/19 History morphine [MS Contin] 30 mg PO BID 08/13/18 01/25/19 History ondansetron 4 mg PO Q4H PRN 08/13/18 01/25/19 History oxycodone 3 tab PO Q4H PRN 08/13/18 01/25/19 History vitamin B complex [B 1 tab PO DAILY 08/13/18 01/25/19 History Complex-Vitamin B12] dextromethorphan HBr 30 mg/5 mL 60 mg PO BID 11/08/18 01/25/19 History oral liquid cetirizine 10 mg PO DAILY PRN 01/25/19 01/25/19 History sodium chloride [Saline Mist] 2 spray INTRANASAL QID PRN 01/25/19 01/25/19 History Allergies Allergy/AdvReac Type Severity Reaction Status Date / Time codeine [CODEINE] AdvReac Unknown nausea Verified 01/25/19 20:27 Review of Systems Review of Systems ROS Unobtainable: All systems reviewed & are unremarkable except as noted in HPI and below Exam Vital Signs (past 8 hours): - 01/25/19 20:27 01/25/19 22:06 01/25/19 22:09 Temperature 102.9 F H 101.6 F H 101.6 F H Pulse Rate 122 H 114 H Respiratory Rate 15 11 L Blood Pressure 154/73 H Blood Pressure [Right Arm] 137/57 L Pulse Oximetry 93 93 01/25/19 22:47 01/25/19 23:01 01/26/19 00:15 Temperature Pulse Rate 112 H 112 H 109 H Respiratory Rate 16 15 23 Blood Pressure Blood Pressure [Right Arm] 118/56 L 122/51 L Pulse Oximetry 92 92 92 Oxygen Delivery Method Room Air Narrative Exam Narrative: Gen: Alert, oriented, ill-appearing 63 y.o. male, nontoxic appearing HEENT: normocephalic, atraumatic, conjunctiva clear, sclera non-icteric, oral mucosa pink and moist Neck: Poor muscle tone, full ROM Resp: Bilateral rales, non-labored breathing CV: RRR, no murmur or rubs Abd: soft, non-tender, normoactive BTs Skin: Has eschar on the tip of his left big toe Neuro: Alert and oriented X 3, appears to have a permanent facial droop Extremities: moves all 4 extremities, is ambulatory Psyche: normal mood and affect. Objective Labs Result Diagrams: 01/25/19 20:36 01/25/19 20:36 Labs: Laboratory Results - last 24 hr 01/25/19 01/25/19 01/25/19 20:36 20:36 20:36 WBC 25.3 H RBC 3.75 L Hgb 11.0 L Hct 32.9 L MCV 87.5 MCH 29.4 MCHC 33.6 RDW 14.3 Plt Count 314 Neut % (Auto) 91.6 H Lymph % (Auto) 2.2 L [place] % (Auto) 4.8 Eos % (Auto) 1.3 L Baso % (Auto) 0.1 Neut # (Auto) 55191 H Lymph # (Auto) 600 L [place] # (Auto) 1200 H Eos # (Auto) 300 Baso # (Auto) 0 PT 12.0 INR 1.0 Sodium Potassium Chloride Carbon Dioxide BUN Creatinine Estimated GFR BUN/Creatinine Ratio Glucose Hemoglobin A1c Lactate Calcium Total Bilirubin AST ALT Alkaline Phosphatase Total Protein Albumin Globulin Albumin/Globulin Ratio Lipase Procalcitonin 0.16 Chlamy pneumoniae PCR Adenovirus (PCR) B.parapertussis DNA PCR Coronavirus OC43 (PCR) Coronavirus HKU1 (PCR) Coronavirus 229E (PCR) Coronavirus NL63 (PCR) Human Metapneumovir PCR Influenza Type A (PCR) Influenza Type B (PCR) M. pneumoniae (PCR) Parainfluenza 1 (PCR) Parainfluenza 2 (PCR) Parainfluenza 3 (PCR) Parainfluenza 4 (PCR) RSV (PCR) Entero/Rhino (PCR) 01/25/19 01/25/19 01/25/19 20:36 20:36 20:36 WBC RBC Hgb Hct MCV MCH MCHC RDW Plt Count Neut % (Auto) Lymph % (Auto) [place]yer % (Auto) Eos % (Auto) Baso % (Auto) Neut # (Auto) Lymph # (Auto) [place] # (Auto) Eos # (Auto) Baso # (Auto) PT INR Sodium 138 Potassium 4.3 Chloride 99 Carbon Dioxide 29 BUN 36 H Creatinine 1.40 H Estimated GFR 51.4 L BUN/Creatinine Ratio 25.7 H Glucose 239 H Hemoglobin A1c Lactate 1.5 Calcium 8.9 Total Bilirubin 0.4 AST 29 ALT 28 Alkaline Phosphatase 136 H Total Protein 7.0 Albumin 4.0 Globulin 3.0 Albumin/Globulin Ratio 1.3 Lipase 13 L Procalcitonin Chlamy pneumoniae PCR Adenovirus (PCR) B.parapertussis DNA PCR Coronavirus OC43 (PCR) Coronavirus HKU1 (PCR) Coronavirus 229E (PCR) Coronavirus NL63 (PCR) Human Metapneumovir PCR Influenza Type A (PCR) Influenza Type B (PCR) M. pneumoniae (PCR) Parainfluenza 1 (PCR) Parainfluenza 2 (PCR) Parainfluenza 3 (PCR) Parainfluenza 4 (PCR) RSV (PCR) Entero/Rhino (PCR) 01/25/19 01/25/19 22:36 23:00 WBC RBC Hgb Hct MCV MCH MCHC RDW Plt Count Neut % (Auto) Lymph % (Auto) [place]yer % (Auto) Eos % (Auto) Baso % (Auto) Neut # (Auto) Lymph # (Auto) [place]yer # (Auto) Eos # (Auto) Baso # (Auto) PT INR Sodium Potassium Chloride Carbon Dioxide BUN Creatinine Estimated GFR BUN/Creatinine Ratio Glucose Hemoglobin A1c 7.5 H Lactate Calcium Total Bilirubin AST ALT Alkaline Phosphatase Total Protein Albumin Globulin Albumin/Globulin Ratio Lipase Procalcitonin Chlamy pneumoniae PCR Not detected Adenovirus (PCR) Not detected B.parapertussis DNA PCR Not detected Coronavirus OC43 (PCR) Not detected Coronavirus HKU1 (PCR) Not detected Coronavirus 229E (PCR) Not detected Coronavirus NL63 (PCR) Not detected Human Metapneumovir PCR Not detected Influenza Type A (PCR) Not detected Influenza Type B (PCR) Not detected M. pneumoniae (PCR) Not detected Parainfluenza 1 (PCR) Not detected Parainfluenza 2 (PCR) Not detected Parainfluenza 3 (PCR) Not detected Parainfluenza 4 (PCR) Not detected RSV (PCR) Not detected Entero/Rhino (PCR) Not detected Assessment & Plan Assessment and plan (1) Hx of fusion of cervical spine: Current visit: No Status: Chronic (2) Chronic pain after traumatic injury: Current visit: No Status: Chronic Assessment & Plan narrative: Ray Foster will be admitted as an inpatient for treatment and management of a nosocomial pneumonia. 1. Nosocomial pneumonia, acute, present on admission * He received 1 g of IV ceftriaxone in the ED * He will receive IV meropenem 1 g Q 8 hours * Albuterol nebulizer q.4 hours and duo nebs q.4 hours as needed for shortness of breath 2. Diabetes type 1 with a hemoglobin A1c of 7.5, chronic and stable, present on admission * He will continue his home dose of Lantus 8 units b.i.d. * I have put him on low-dose correctional insulin * Carb controlled diet 3. CAD/history of a CVA, chronic and stable * He will continue home dose of Plavix 75 mg p.o. daily * Continue home dose of extended release metoprolol of 12.5 mg 4. Hypertension, chronic and stable * Continue home dose of lisinopril 2.5 mg p.o. daily 5. Hypothyroidism, chronic and stable * Continue home dose of levothyroxine 50 mcg p.o. daily 6. Chronic pain syndrome with continuous opioid use chronic and stable * [facility] is [facility] at [facility] [place] * Continue home dose of MS Contin 30 mg p.o. b.i.d. * Continue home dose of Percolone 30 mg q.4 hours as needed for pain * Continue home dose of clonazepam 0.5 mg p.o. t.i.d. as needed * Continue home dose of baclofen 10 mg p.o. t.i.d. 7. Depression, chronic and stable * Continue home dose of duloxetine 60 mg p.o. daily and mirtazapine 15 mg p.o. daily 8. Opioid induced constipation * Continue home regimen of laxatives and stool softener Patient is admitted into as his stay is anticipated to exceed 2 midnights. FEN: IV saline lock, carb controlled diet, chemistries in the am. VTE Prophylaxis: Enoxaparin 40 mg subcu daily Disposition: Likely discharge back to [facility] living [facility] Code status: Full code Admission time: 75 minutes Meds reconciled: Yes, partial based on current med list
[2019-01-26] MEDS: SODIUM CHLORIDE 0.9% 1,000 ML 100 ML IV ×2 (01:53→13:30)
[2019-01-26] MEDS: PIPERACILLIN-TAZO 4.5 GM/100 ML FROZ.PIGGY IV ×4 (01:53→20:24)
--- NOTE | 2019-01-26 02:11 | PC.ADMIT ---
Addendum entered by Natalie Capps R.N. 01/26/19 06:18: Wound assessment complete and in red folder, pictures documented. Addendum entered by Natalie Capps R.N. 01/26/19 05:30: Pt continues to not stay awake long enough to take PO medications. Pt now with fever of 103.0, notified AUXILIARY PLANT OPERATOR of fever with new orders for 650mg VA APAP. Original Note: Admission Note: The patient,Ray Foster,63 y/o, was given written information regarding hospital policies, unit procedures and contact persons. Patient's smoking status: Current every day smoker. Vital Signs - 8 hr 01/25/19 20:27 01/25/19 22:06 01/25/19 22:09 Temperature 102.9 F H 101.6 F H 101.6 F H Pulse Rate 122 H 114 H Respiratory Rate 15 11 L Blood Pressure 154/73 H Blood Pressure [Right Arm] 137/57 L Pulse Oximetry 93 93 01/25/19 22:47 01/25/19 23:01 01/26/19 00:15 Temperature Pulse Rate 112 H 112 H 109 H Respiratory Rate 16 15 23 Blood Pressure Blood Pressure [Right Arm] 118/56 L 122/51 L Pulse Oximetry 92 92 92 01/26/19 01:33 01/26/19 02:10 Temperature 99.5 F Pulse Rate 112 H Respiratory Rate 18 Blood Pressure 127/62 Blood Pressure [Right Arm] Pulse Oximetry 92 96 Pt arrived via stretcher accompanied by Chelesa GONZALES from ED. Pt was transferred to floor bed via stretcher board and was unable to assist in transfer, pt had a large BM in brief, denson patent and draining. Pt was minimally responsive during bed transfer, brief change, and assessment, would quickly fall asleep during assessment questions and would respond with 1-2 word answers that were mumbled and at times difficult to understand. Pt has multiple skin issues including a unstageable pressure injury to right great toe and stage one pressure injuries to bilateral heels, both non-blanchable and soft and also has many scabbed abrasions to bilateral lower extremities. Pt on RA with O2 sat of 96%, diminished throughout with fine crackles in lower right lobe, pt is tachycardic with bilateral 2+ pitting edema to ankles and feet, feet demonstrate foot drop, pulses intact bilaterally. Pt is a high fall risk d/t pt reports of fall out of wheelchair within last 3 months, weakness, and inability to ambulate. Bed alarm is on and functioning, call light is in reach, unknown at this time if pt could make needs known so pt is in a visibility room with Q1H checks. Pt had multiple PO meds due at time of admission, d/t pts somnulence, did not feel it was safe to administer at this time. Will reevaluate throughout the shift and make AUXILIARY PLANT OPERATOR aware.
[2019-01-26] MEDS: MEROPENEM 1 GM in SODIUM CHLORIDE 0.9% 100 ML 200 ML IV (02:42)
[2019-01-26] MEDS: ONDANSETRON 4 MG/2 ML INJ IV ×2 (05:06→17:10)
[2019-01-26] MEDS: ACETAMINOPHEN 650 MG SUPP PR ×2 (05:55→12:16)
[2019-01-26 06:11] LABS: Add Manual Diff / Slide Review NO; Basophils Absolute Auto 0 /uL (0-100); Basophils Percent Auto 0.2 % (0-2); Eosinophils Absolute Auto 0 /uL (0-450); Eosinophils Percent Auto 0.1 % (2-4); Hematocrit 30.7 % (41-53); Hemoglobin 10.2 g/dL (13.5-17.5); Lymphocytes Absolute Auto 300 /uL (1100-4500); Lymphocytes Percent Auto 1.3 % (25-40); Mean Corpuscular HGB Conc 33.3 % (30-36); Mean Corpuscular Hemoglobin 29.2 PG (26-34); Mean Corpuscular Volume 87.5 fL (80-100); Monocytes Absolute Auto 700 /uL (0-900); Monocytes Percent Auto 2.9 % (3-14); Neutrophils Absolute Auto 23100 /uL (1500-7000); Neutrophils Percent Auto 95.5 % (50-75); Platelet Count 267 X10^3/uL (150-400); Red Blood Cell Count 3.51 X10^6/uL (4.5-5.9); White Blood Cell Count 24.2 X10^3/uL (4.5-11.0)
[2019-01-26 06:28] LABS: BUN Creatinine Ratio 25.6 (6-22); Blood Urea Nitrogen 23 mg/dL (9-20); Calcium 8.1 mg/dL (8.4-10.2); Carbon Dioxide 27 mmol/L (22-32); Chloride 103 mmol/L (98-107); Estimated Glomerular Filt Rate > 60.0 mL/min (>60); Glucose 253 mg/dL (80-110); HEMOLYSIS < 15 (0-50); Potassium 3.8 mmol/L (3.4-5.1); Sodium 138 mmol/L (137-145)
[2019-01-26 07:13] LABS: Procalcitonin 1.31 ng/mL (<0.5)
[2019-01-26] MEDS: ALBUTEROL 2.5 MG/3 ML NEB (ADULT) INH ×5 (07:45→23:12)
[2019-01-26] MEDS: MEROPENEM 1 GM/50 ML PIGGYBACK IV ×2 (09:13→17:10)
[2019-01-26] MEDS: ENOXAPARIN 40 MG/0.4 ML SYRINGE SUBCUT (09:42)
[2019-01-26] MEDS: INSULIN ASPART 100 UNIT/ML INSULN PEN SUBCUT ×4 (09:46→21:56)
[2019-01-26] MEDS: INSULIN GLARGINE 100 UNIT/ML 3ML PEN 8 UNIT SUBCUT ×2 (09:47→21:56)
[2019-01-26] MEDS: NYSTATIN POWDER 15GM 1 APPLIC TOP (09:48)
--- NOTE | 2019-01-26 10:17 | PC.NURSE ---
Addendum entered by Judith Demarco R.N. 01/26/19 15:25: Pt became more alert around 1140. Am meds able to be given whole one at a time with apple sauce. Pt had sips of water and was coughing, choking, sputtering and then sneezed. Staff aware to not given thin liquids, Dr. Coats updated, Speech Therapy evaluation order placed. Original Note: Day Shift- Pt lethargic, arouses with verbal and contact stimulation. Answers questions under a mumble and this typewriters functional tester needs to repeat questions to receive an answer. pt states name, , [facility], January 2000. Pt closes eyes and appears to fall asleep with verbal and the contact stimulation. Pt does state he takes his pills whole with apple sauce and did not want to take at 0955. Pt is quite drowsy as well. Will reassess. Pt inc of large soft BM in brief. Barrier cream applied, coccyx and inner buttocks appears to be scarring from an old wound, skin intact. Right great toes eschar present, DANIEL, no drainage. Urinary catheter in place. Pt repositioned in bed using ESSENCE bed for turns. High fall risk in place, bed alarm on, call light within reach, pt has not used this shift yet.
[2019-01-26] MEDS: DULOXETINE 30 MG CAPSULE 60 MG PO (11:34)
[2019-01-26] MEDS: CLOPIDOGREL 75 MG TABLET PO (11:34)
[2019-01-26] MEDS: MIRTAZAPINE 15 MG TABLET PO (11:35)
[2019-01-26] MEDS: METOPROLOL ER 25 MG TABLET 12.5 MG PO (11:35)
[2019-01-26] MEDS: LISINOPRIL 5 MG TABLET 2.5 MG PO (11:37)
--- NOTE | 2019-01-26 13:05 | CM.DANOTE ---
Discharge Planning/Care Management DCP: assessment: case received, EMR reviewed and met early this morning with pt. Introduced self and role. Pt was very groggy, was able to say that he knew he was in [facility]. Assured him that DCP team would be following to help as his d/c needs become clearer. Pt is a 63 year old male who admitted just before midnight to care of hospitalist team. He has lived at [facility] since 2017, prior to that was at [facility] for and extended period of time. Payer: Medicare and Medicaid. Pt is currently being following at the wound care clinic. Spoke with [place]/[facility] to obtain some of the above specifics. She says he primarily uses an electric w/c to get around. Discussed referral to [facility]/Maddie (done) in case of snf care needs at d.c. POC is newly in process. DCP team will be following. CM Discharge Assessment Start: 01/26/19 12:57 Freq: Status: Active Protocol: Document 01/26/19 12:57 ITV (Rec: 01/26/19 13:05 ITV [id number]) Discharge Planning Assessment Advance Directives? Yes: POLST;ADV DIR;POA Advance Directives on File No History Provided By Patient,Parents,Medical Record Prior Living Arrangements Assisted Living Facility Name Admitted From: [facility] Willing to Return to Facility? Yes Independent with ADL's No Is patient alert and oriented? groggy Comment Patient has electric w/c at residence. Whiteboard Updated in Patient Room with Yes name and ext. # of Chemical Strength Tester Review Status In Process
--- NOTE | 2019-01-26 14:24 | PM.PN.1 ---
Subjective Subjective Date Patient Seen: 01/26/19 Exam Vital Signs (past 8 hours): - 01/27/19 08:00 01/27/19 11:53 Temperature 99.4 F 99.4 F Pulse Rate 94 H 109 H Respiratory Rate 24 24 Blood Pressure 149/79 H 153/85 H Pulse Oximetry 93 96 Fraction of Inspired Oxygen 21 Oxygen Delivery Method Room Air Oxygen Flow Rate 0 Objective Labs Result Diagrams: 01/29/19 05:15 01/27/19 05:20 Labs: Laboratory Results - last 24 hr 01/27/19 01/27/19 01/27/19 02:56 05:20 05:20 WBC 15.1 H RBC 3.25 L Hgb 9.6 L Hct 28.3 L MCV 87.2 MCH 29.4 MCHC 33.7 RDW 14.3 Plt Count 227 Neut % (Auto) 86.5 H Lymph % (Auto) 5.4 L [place] % (Auto) 7.9 Eos % (Auto) 0.0 L Baso % (Auto) 0.2 Neut # (Auto) 82297 H Lymph # (Auto) 800 L [place] # (Auto) 1200 H Eos # (Auto) 0 Baso # (Auto) 0 Sodium Potassium Chloride Carbon Dioxide BUN Creatinine Estimated GFR BUN/Creatinine Ratio Glucose Calcium Magnesium Total Bilirubin AST ALT Alkaline Phosphatase Total Protein Albumin Globulin Albumin/Globulin Ratio Procalcitonin 1.24 H Urine Color Yellow Urine Appearance Clear Urine pH 6.0 Ur Specific [place] 1.010 Urine Protein 1+ H Urine Glucose (UA) 3+ H Urine Ketones Negative Urine Occult Blood 1+ H Urine Nitrate Negative Urine Bilirubin Negative Urine Urobilinogen 0.2 Ur Leukocyte Esterase Negative Urine RBC 0-1/hpf Urine WBC 1-5/hpf Ur Squamous Epith Cells 0-1 /hpf Urine Bacteria None seen Ur Culture Indicated? Cult not indicated 01/27/19 05:20 WBC RBC Hgb Hct MCV MCH MCHC RDW Plt Count Neut % (Auto) Lymph % (Auto) [place] % (Auto) Eos % (Auto) Baso % (Auto) Neut # (Auto) Lymph # (Auto) [place] # (Auto) Eos # (Auto) Baso # (Auto) Sodium 139 Potassium 3.6 Chloride 104 Carbon Dioxide 27 BUN 17 Creatinine 0.80 Estimated GFR > 60.0 BUN/Creatinine Ratio 21.3 Glucose 294 H Calcium 8.4 Magnesium 2.1 Total Bilirubin 0.5 AST 30 ALT 35 Alkaline Phosphatase 86 D Total Protein 6.0 L Albumin 3.2 L Globulin 2.8 Albumin/Globulin Ratio 1.1 Procalcitonin Urine Color Urine Appearance Urine pH Ur Specific [place] Urine Protein Urine Glucose (UA) Urine Ketones Urine Occult Blood Urine Nitrate Urine Bilirubin Urine Urobilinogen Ur Leukocyte Esterase Urine RBC Urine WBC Ur Squamous Epith Cells Urine Bacteria Ur Culture Indicated? Assessment & Plan Assessment & Plan narrative: Brief progress note: Patient was seen and examined. Hemodynamically stable. Physical exam unchanged. Agree with admitting providers assessment and plan. Also held central acting and high-dose narcotic due to lethargy.
--- NOTE | 2019-01-26 14:44 | DIET.PN ---
Dietary Progress Note Assessment: 63y M referred to nutrition for low edgard r/t being chair bound c pneumonia. Pt prefers soft texture. Per RN, pt sputtered and choked on thin liquids while giving meds, did fine c applesauce. HT: 165.1cm WT: 71kg BMI: 26.0 Labs: A1c 7.5, Hgb 10.2, BG 239-253 MNA: 10 (at risk) Edgard: 15 Interventions: 1. Recc NKT liquids and mech soft 2. Recc Juan smoothie bid to aid wound healing and increase PRO (40% needs) Diet Order: CCD4 EER: 1700kcal, 70g PRO, 2.1L fluids Monitoring/Evaluations:
--- NOTE | 2019-01-26 16:07 | ST.IPCSEOM ---
Current Diagnoses Other chronic pain (01/25/19) Arthrodesis status (01/25/19) Past Medical History (Last Reviewed 01/26/19 @ 01:40 by BOO Anderson) C3 spinal cord injury (Acute Medical) C4 spinal cord injury (Acute Medical) CVA (cerebral vascular accident) (Acute Medical) Diabetes (Acute Medical) Gastroesophageal reflux disease (Acute Medical) Hyperlipidemia (Acute Medical) Hypertension (Acute Medical) Speech-Language Pathology Swallow Evaluation [facility] Clinical Swallow Evaluation Start: 01/26/19 15:48 Freq: Status: Active Protocol: Document 01/26/19 15:48 TLC (Rec: 01/26/19 16:07 TLC [id number]) Clinical Swallow Evaluation Session Time Visit Start Time 15:30 Visit Stop Time 15:50 Total Visit Minutes [address] Coats Reason for Referral Choked on water per RN Setting Assessment Location Acute Care Visit Type Note Type Initial Evaluation Next Note Type Next Note Type Treatment Note Patient Information Identification Type Name History Patient was admitted with pneumonia. Per nursing, patient has been drowsy all morning and was not awake enough for PO intake; however, became more alert around noon and was able to swallow meds whole in apple sauce but choked on water. Patient had outpatient MBS in October of 2018 which indicated moderately severe oropharyngeal dysphagia secondary to residual effects of CVA/hemiparesis. Recommendations were made for thin liquids, dysphagia advanced textures, upright posture during meals, small bites/sips, liquids from cup and alternating liquids/solids . Recommendations also included ST at assisted living center, however, it is unknown if patient received ST . Subjective Observations Patient awoke to my voice and answered some questions, but was drowsy and required repetitions of questions on multiple occasions. Speech is slurred. Evaluation Liquids Trialed Thin,Caney Solids Trialed Puree,Dysphagia Mechanical Administration Type Dependent Feeding Oral Phase Comments Patient was unable to self- feed due to drowsiness. When asked to take a sip, he appeared to fall asleep and dropped the cup mid sip. With verbal cues, he managed to remain awake for assessment. Patient is edentulous and per report in the process of getting dentures. Mastication required extended time for dysphagia mechanical textures. Advanced textures not trialed for patient safety and energy conservation. Mild oral residue present after trials cleared with cue for second swallow. Pharyngeal Phase Comments Patient coughed on three trials of thin liquids. Cough was productive with expectoration of phlegm. No coughing or throat clearing observed with nectar thickened liquids via cup. Straw sips not trialed. Findings Impressions Patient with history of oropharyngeal dysphagia documented October 2018 with MBSS . Given patient's current medical condition and decreased alertness, oropharyngeal function has worsened and patient is not safe for thin liquids at this time. Recommend: nectar thick liquids, dysphagia mechanical textures , 1:1 feeding assistance with cues as needed . Diet Recommendations Liquids Order Caney Diet Order Dysphagia Advanced Medication Recommendations As Tolerated Additional Dietary Needs 1:1 Assistance,Reminders to Use Strategies Aspiration Precautions Recommended Precautions Upright at 90 Degrees, Alternate Liquids/Solids,Small Bites/Sips,Double Swallow Treatment Plan Placement Recommendations after [facility] Facility Discharge Appropriate for Therapy Yes Therapy Recommendations Dysphagia management, patient and caregiver education Dysphagia Goals Patient will maintain alertness during meals in order to implement strategies with minimal prompts/cues and safely consume the least restrictive diet.
[2019-01-26] MEDS: BACLOFEN 10 MG TABLET PO ×2 (17:10→21:54)
[2019-01-26] MEDS: DOCUSATE 100 MG CAPSULE 200 MG PO (21:54)
[2019-01-26] MEDS: ATORVASTATIN 20 MG TABLET 80 MG PO (21:54)
[2019-01-26] MEDS: guaiFENesin ER 600 MG TAB 1200 MG PO (22:00)
[2019-01-27] VITALS (13 sets, daily range): BP systolic 120–158; BP diastolic 53–85; PULSE 83–109; RESP 16–24; TEMP 36.6–37.4; O2SAT 93–98
[2019-01-27] MEDS: ONDANSETRON 4 MG/2 ML INJ IV ×4 (00:16→17:41)
[2019-01-27] MEDS: PIPERACILLIN-TAZO 4.5 GM/100 ML FROZ.PIGGY IV ×4 (00:16→19:45)
[2019-01-27] MEDS: MEROPENEM 1 GM/50 ML PIGGYBACK IV ×3 (02:39→17:36)
[2019-01-27 03:05] LABS: Bacteria Urine None Seen
[2019-01-27 03:09] LABS: Appearance Urine UA CLEAR; Bilirubin Urine UA NEGATIVE (NEGATIVE); Color Urine UA YELLOW; Glucose Urine UA 3+ g/dL (Negative); Ketones Urine UA NEGATIVE (NEGATIVE); Leukocyte Esterase Urine UA NEGATIVE (NEGATIVE); Nitrite Urine UA NEGATIVE (Negative); Occult Blood Urine UA 1+ (Negative); Protein Urine UA 1+ (Negative); Urobilinogen Urine UA 0.2 E.U./dL (0.2)
[2019-01-27 03:28] LABS: Culture Indicated Urine Cult Not Indicated; RBC Urine 0-1/HPF (0-5/HPF); Squamous Epithelial Cell Urine 0-1 /HPF (0-5/HPF); WBC Urine 1-5/HPF (0-5/HPF)
[2019-01-27] MEDS: hydrOXYzine pamoate 25 MG CAPSULE PO ×2 (04:41→10:55)
[2019-01-27 05:57] LABS: Add Manual Diff / Slide Review NO; Basophils Absolute Auto 0 /uL (0-100); Basophils Percent Auto 0.2 % (0-2); Eosinophils Absolute Auto 0 /uL (0-450); Hematocrit 28.3 % (41-53); Hemoglobin 9.6 g/dL (13.5-17.5); Lymphocytes Absolute Auto 800 /uL (1100-4500); Lymphocytes Percent Auto 5.4 % (25-40); Mean Corpuscular HGB Conc 33.7 % (30-36); Mean Corpuscular Hemoglobin 29.4 PG (26-34); Mean Corpuscular Volume 87.2 fL (80-100); Monocytes Absolute Auto 1200 /uL (0-900); Monocytes Percent Auto 7.9 % (3-14); Neutrophils Absolute Auto 13100 /uL (1500-7000); Neutrophils Percent Auto 86.5 % (50-75); Platelet Count 227 X10^3/uL (150-400); Red Blood Cell Count 3.25 X10^6/uL (4.5-5.9); Red Cell Distribution Width 14.3 % (11.6-14.8); White Blood Cell Count 15.1 X10^3/uL (4.5-11.0)
[2019-01-27 06:06] LABS: Alanine Aminotransferase 35 IU/L (21-72); Albumin 3.2 g/dL (3.5-5.0); Albumin Globulin Ratio 1.1 (1.0-2.8); Alkaline Phosphatase 86 U/L (38-126); Aspartate Aminotransferase 30 IU/L (17-59); BUN Creatinine Ratio 21.3 (6-22); Bilirubin Total 0.5 mg/dL (0.2-1.3); Blood Urea Nitrogen 17 mg/dL (9-20); Calcium 8.4 mg/dL (8.4-10.2); Carbon Dioxide 27 mmol/L (22-32); Chloride 104 mmol/L (98-107); Estimated Glomerular Filt Rate > 60.0 mL/min (>60); Globulin 2.8 g/dL (1.7-4.1); Glucose 294 mg/dL (80-110); HEMOLYSIS < 15 (0-50); Magnesium 2.1 mg/dL (1.6-2.3); Potassium 3.6 mmol/L (3.4-5.1); Sodium 139 mmol/L (137-145)
[2019-01-27 06:31] LABS: Procalcitonin 1.24 ng/mL (<0.5)
--- NOTE | 2019-01-27 07:01 | PC.NURSE ---
Pt requesting to be reevaluated by Speech, does not want his liquids thickened as it does nothing to quench my thirst. Pt reports that he is better today than yesterday to which pt is much more alert and oriented. Educated pt that nursing staff have to follow the orders written until changed, pt voiced his displeasure and turned away from this RN. Will pass to day shift.
[2019-01-27] MEDS: LEVOTHYROXINE 50 MCG TABLET PO (07:07)
[2019-01-27] MEDS: ALBUTEROL 2.5 MG/3 ML NEB (ADULT) INH ×2 (08:07→18:20)
[2019-01-27] MEDS: INSULIN GLARGINE 100 UNIT/ML 3ML PEN 12 UNIT SUBCUT ×2 (08:57→21:02)
[2019-01-27] MEDS: INSULIN ASPART 100 UNIT/ML INSULN PEN SUBCUT ×4 (08:57→21:00)
[2019-01-27] MEDS: DULOXETINE 30 MG CAPSULE 60 MG PO (09:01)
[2019-01-27] MEDS: CLOPIDOGREL 75 MG TABLET PO (09:01)
[2019-01-27] MEDS: DOCUSATE 100 MG CAPSULE 200 MG PO ×2 (09:01→19:57)
[2019-01-27] MEDS: LISINOPRIL 5 MG TABLET 2.5 MG PO (09:01)
[2019-01-27] MEDS: MIRTAZAPINE 15 MG TABLET PO (09:01)
[2019-01-27] MEDS: ENOXAPARIN 40 MG/0.4 ML SYRINGE SUBCUT (09:02)
[2019-01-27] MEDS: BACLOFEN 10 MG TABLET PO ×3 (09:03→19:58)
[2019-01-27] MEDS: METOPROLOL ER 25 MG TABLET 12.5 MG PO (09:03)
[2019-01-27] MEDS: guaiFENesin ER 600 MG TAB 1200 MG PO ×2 (09:05→19:58)
--- NOTE | 2019-01-27 09:35 | ST.IPDYTX ---
SENIOR RD ENGINEER Dysphagia Treatment SENIOR RD ENGINEER Dysphagia Treatment Start: 01/26/19 15:48 Freq: Status: Active Protocol: Document 01/27/19 09:18 TLC (Rec: 01/27/19 09:35 TLC [id number]) Dysphagia Treatment Session Time Visit Start Time 08:15 Visit Stop Time 09:15 Total Visit Minutes 60 Setting Assessment Location Acute Care Visit Type Note Type Treatment Note Next Note Type Next Note Type Treatment Note Patient Information Identification Type Name Subjective Observations Patient seen yesterday for clinical swallow evaluation and placed on nectar thick, dysphagia mechanical diet. Per nursing, patient is more alert this morning, refusing nectar thick liquids and requesting re-evaluation. Treatment Liquids Trialed Ice Chips,Thin Solids Trialed Puree,Dysphagia Mechanical Administration Type Self-Feeding Pharyngeal Strategies Sitting Upright (90 deg), Effortful Swallow,Small Bites and Sips Treatment Activities Completed re-evaluation of patient's swallowing ability given change in alertness and patient request. Patient able to self-feed this AM and speaking in longer utterances, which are intelligible despite dysarthria. Patient displayed intermittent coughing with sips of thin liquid and states I have so much congestion I don't know how I will be able to get food or liquid down without coughing or sneezing. He went on to say he does the best with warm liquids such as coffee out of a small straw. ~ 15 trials of coffee via straw were consumed during which patient coughed ~3x. Verbal education was provided to the patient regarding risk of aspiration and worsening of pnemonia. We discussed completing a repeat MBSS (last one was October 2018 as outpatient), which he initially considered, but later declined stating it wouldn't change anything. Patient verbalized understanding of aspiration risk with remaining on thin liquids, but is choosing consume thin liquids. Further education was provided on importance of oral care (even in the absence of teeth/ dentures) and implementing compensatory strategies - slow rate, small bites/sips, effortful swallow and upright posture. Patient also stated he used to lean forward' when he swallowed which would help and he would start doing this again. Nursing came in to administer meds which patient swallowed whole in apple sauce with out obvious difficulty. Assessment Patient Response to Treatment Good Rehab Potential Fair Assessment of Improvement Patient is more alert today and is able to converse about his current symptoms and history of swallowing difficulty. I recommend he continue dysphagia mechanical textures which he agrees with given lack of teeth. After education on aspiration pneumonia, patient is choosing to drink thin liquids despite risks. He verbalized understanding of safe swallow strategies and states he will implement these during meals. Diet Recommendations Recommendations Upgrade Liquid Order Liquids Order Thin Diet Order Dysphagia Mechanical Medication Recommendations Whole in Carrier Additional Dietary Needs Reminders to Use Strategies Aspiration Precautions Recommended Precautions Upright at 90 Degrees, Alternate Liquids/Solids,Small Bites/Sips,Effortful Swallow Treatment Plan Placement Recommendation after Discharge Care Home Facility Appropriate for Continued Therapy Yes Therapy Recommendations Dysphagia management, education Dysphagia Goals Patient will maintain alertness during meals in order to implement strategies with minimal prompts/cues and safely consume the least restrictive diet. - good progress
--- NOTE | 2019-01-27 10:34 | PC.NURSE ---
Transferred patient from an ICU Bed into an Denise Bed
--- NOTE | 2019-01-27 11:27 | PM.PN.1 ---
Subjective Subjective Date Patient Seen: 01/27/19 Interval history: Ray Foster is a 63-year-old male resident of [facility] with a complex medical history consisting of previous C3-C4 spinal and traumatic brain injury, multiple CVAs, MS diagnosed earlier this year, diabetes mellitus type 1 who was brought to the ED from [facility] for fever and was admitted for aspiration pneumonia. The patient is resting in bed and appears uncomfortable. He is having many involuntary muscle spasms. He reports he feels lousy and fatigued. He has a non-productive cough. He has no other complaints and denies headache, shortness of breath, chest pain, abdominal pain, nausea, vomiting, fever, chills, dysuria, diarrhea or constipation. He is voiding via denson catheter placed in ED for lethargy. He has not had a bowel movement since admission and he is home bowel regimen is in place. He is bed and wheelchair bound at baseline but able to perform transfers. Exam Vital Signs (past 8 hours): - 01/27/19 16:00 01/27/19 18:28 01/27/19 19:00 Temperature 99.3 F Pulse Rate 83 91 H Respiratory Rate 18 18 Blood Pressure 137/76 Pulse Oximetry 94 93 93 01/27/19 20:00 Temperature 99.3 F Pulse Rate 91 H Respiratory Rate 16 Blood Pressure 134/67 Pulse Oximetry 95 Fraction of Inspired Oxygen 21 Oxygen Delivery Method Room Air Oxygen Flow Rate 0 Narrative Exam Narrative: General: Older gentleman sitting in bed and appears uncomfortable and in mild distress due to muscle spasms, appropriately interactive. HEENT: Normocephalic, atraumatic. External ears without defect. Pupils equal, round, and reactive to light. Anicteric sclerae, moist conjunctivae, and no lid lag. Oropharynx free of erythema and cobble stoning with moist mucosa. Mild aphasia. Neck: Supple with full range of motion. No lymphadenopathy or thyromegaly. Cardiovascular: Regular rhythm, mildly tachycardic, without murmurs, rubs, or gallops appreciated. Pulmonary: Clear to auscultation bilaterally with occasional rhonchi in right lung field. No crackles or wheezes. Normal respiratory effort with no use of accessory muscles. Abdomen: Soft, bowel sounds present, nontender, nondistended. No hepatosplenomegaly or masses appreciated. Extremities: No clubbing or cyanosis. Several abrasions on bilateral lower extremities. Mild edema of right leg to pretibial area with slight erythema/warmth and eschar on tip of hallux of right foot due to arterial ischemic injury status post stent due to PAD that does not appear infected. Neurological: Bilateral lower extremities are atrophied with paresis R>L. Psychiatric: Normal mood and affect. Appears to be alert and oriented to person, place, and time. Confusion and lethargy resolved. Objective Labs Result Diagrams: 01/29/19 05:15 01/27/19 05:20 Labs: Laboratory Results - last 24 hr 01/27/19 01/27/19 01/27/19 02:56 05:20 05:20 WBC 15.1 H RBC 3.25 L Hgb 9.6 L Hct 28.3 L MCV 87.2 MCH 29.4 MCHC 33.7 RDW 14.3 Plt Count 227 Neut % (Auto) 86.5 H Lymph % (Auto) 5.4 L [place] % (Auto) 7.9 Eos % (Auto) 0.0 L Baso % (Auto) 0.2 Neut # (Auto) 00880 H Lymph # (Auto) 800 L [place] # (Auto) 1200 H Eos # (Auto) 0 Baso # (Auto) 0 Sodium Potassium Chloride Carbon Dioxide BUN Creatinine Estimated GFR BUN/Creatinine Ratio Glucose Calcium Magnesium Total Bilirubin AST ALT Alkaline Phosphatase Total Protein Albumin Globulin Albumin/Globulin Ratio Procalcitonin 1.24 H Urine Color Yellow Urine Appearance Clear Urine pH 6.0 Ur Specific [place] 1.010 Urine Protein 1+ H Urine Glucose (UA) 3+ H Urine Ketones Negative Urine Occult Blood 1+ H Urine Nitrate Negative Urine Bilirubin Negative Urine Urobilinogen 0.2 Ur Leukocyte Esterase Negative Urine RBC 0-1/hpf Urine WBC 1-5/hpf Ur Squamous Epith Cells 0-1 /hpf Urine Bacteria None seen Ur Culture Indicated? Cult not indicated 01/27/19 05:20 WBC RBC Hgb Hct MCV MCH MCHC RDW Plt Count Neut % (Auto) Lymph % (Auto) [place] % (Auto) Eos % (Auto) Baso % (Auto) Neut # (Auto) Lymph # (Auto) [place] # (Auto) Eos # (Auto) Baso # (Auto) Sodium 139 Potassium 3.6 Chloride 104 Carbon Dioxide 27 BUN 17 Creatinine 0.80 Estimated GFR > 60.0 BUN/Creatinine Ratio 21.3 Glucose 294 H Calcium 8.4 Magnesium 2.1 Total Bilirubin 0.5 AST 30 ALT 35 Alkaline Phosphatase 86 D Total Protein 6.0 L Albumin 3.2 L Globulin 2.8 Albumin/Globulin Ratio 1.1 Procalcitonin Urine Color Urine Appearance Urine pH Ur Specific [place] Urine Protein Urine Glucose (UA) Urine Ketones Urine Occult Blood Urine Nitrate Urine Bilirubin Urine Urobilinogen Ur Leukocyte Esterase Urine RBC Urine WBC Ur Squamous Epith Cells Urine Bacteria Ur Culture Indicated? Assessment & Plan Assessment & Plan narrative: Ray Foster is a 63-year-old male resident of [facility] with a complex medical history consisting of previous C3-C4 spinal and traumatic brain injury, multiple CVAs, MS diagnosed earlier this year, diabetes mellitus type 1 who was brought to the ED from [facility] for fever and was admitted for aspiration pneumonia. 1. Acute probable aspiration pneumonia, present on admission. Active. -Patient presented from [facility] with fever and was found to have aspiration pneumonia. -Chest x-ray demonstrated right infrahilar alveolar opacity seen is irregularity of the diaphragmatic contour suspicious for pneumonia, infectious or aspiration. -Initial WBC 25.3 and procalcitonin 0.16 and peaked at 1.31. Continue to trend WBC and procalcitonin daily, trending down. -ordered complete pneumonia workup including: Respiratory viral PCR negative. Strep pneumoniae and Legionella urine antigens, pending. Sputum culture which has not yet been obtained as patient has nonproductive cough. Blood cultures x2 have no growth to date. -Received ceftriaoxne 1 g IV x 1 in the ED. Continue Zosyn 4.5 g every 6 hours for broad spectrum coverage including anaerobes. Meropenem discontinued. -Continue RT evaluation and treatment. Continue albuterol nebulizer every 6 hours while awake. -Ordered speech therapy evaluation and treatment, pending. 2. Acute metabolic encephalopathy, present on admission. Resolved. -Secondary to acute aspiration pneumonia and [employer] depressant medications (oxycodone, baclofen, hydroxyzine) -Held oxycodone, baclofen, hydroxyzine initially and restart today now that mentation has improved. -Continued to treat aspiration pneumonia as above. 3. Diabetes mellitus type 1, chronic, present on admission. Stable. -Hemoglobin A1c of 7.5% 01/2019. -Continue Lantus increased from 8 units to 12 untis twice daily for better glycemic control (BG 200-300). -Continue ACHS blood glucose checks and low-dose correctional scale insulin. -Continue heart healthy/carbohydrate coonsistent diet. 4. CAD and history of CVA, chronic, present on admission. Stable. -Continue home metoprolol succinate 12.5 mg daily, aspirin 325 mg daily, and plavix 75 mg daily. 5. Hypertension, chronic, present on admission. Stable. -Continue home lisinopril 2.5 mg daily. 6. Hypothyroidism, chronic, present on admission. Stable. -Ordered TSH with reflex to free T4, pending. -Continue home levothyroxine 50 mcg daily. 7. Chronic pain syndrome with opiate dependence, chronic, present on admission. Stable. -[facility] at [facility] [place]. -Discontinued MS Contin 30 mg twice daily as patient reports it does nothing. -Continue oxycodone 30 mg every 4 hours as needed for pain, clonazepam 0.5 mg three times a day as needed for muscle spasms/anxiety, and baclofen 10 mg three times daily. 8. Depression, chronic, present on admission. Stable. -Continue home duloxetine 60 mg daily and mirtazapine 15 mg daily. 9. Opiate induced constipation, chronic, present on admission. Stable. -Continue home regimen of laxatives and stool softener. 10. PAD status post stenting on right leg, chronic, present on admission. Stable. -Patient recently had arterial ischemic injury to right Hallux with eschar and is followed by wound care outpatient. Continue outpatient wound care clinic management. 11. 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 Stable. Disposition: Patient likely to discharge back to assisted living facility at [place] in the next several days once pneumonia is adequately treated.
[2019-01-27] MEDS: clonazePAM 0.5 MG TABLET PO (11:41)
[2019-01-27] MEDS: SODIUM CHLORIDE 0.9% FLUSH 10 ML IV ×3 (11:46→21:02)
[2019-01-27] MEDS: OXYCODONE IR 10 MG TABLET 30 MG PO ×2 (13:48→17:41)
[2019-01-27] MEDS: ATORVASTATIN 20 MG TABLET 80 MG PO (19:57)
[2019-01-28] VITALS (16 sets, daily range): BP systolic 132–146; BP diastolic 64–81; PULSE 71–86; RESP 16–18; TEMP 36.6–37.6; O2SAT 91–98
[2019-01-28] MEDS: hydrOXYzine pamoate 25 MG CAPSULE PO ×4 (00:54→22:41)
[2019-01-28] MEDS: OXYCODONE IR 10 MG TABLET 30 MG PO ×5 (00:54→22:41)
[2019-01-28] MEDS: PIPERACILLIN-TAZO 4.5 GM/100 ML FROZ.PIGGY IV ×4 (00:57→18:05)
[2019-01-28] MEDS: ONDANSETRON 4 MG/2 ML INJ IV ×4 (00:57→18:04)
[2019-01-28 05:23] LABS: Add Manual Diff / Slide Review NO; Basophils Absolute Auto 0 /uL (0-100); Basophils Percent Auto 0.3 % (0-2); Eosinophils Absolute Auto 0 /uL (0-450); Eosinophils Percent Auto 0.2 % (2-4); Hematocrit 27.2 % (41-53); Hemoglobin 9.2 g/dL (13.5-17.5); Lymphocytes Absolute Auto 1600 /uL (1100-4500); Lymphocytes Percent Auto 12.4 % (25-40); Mean Corpuscular Hemoglobin 29.6 PG (26-34); Mean Corpuscular Volume 87.1 fL (80-100); Monocytes Absolute Auto 1000 /uL (0-900); Monocytes Percent Auto 7.5 % (3-14); Neutrophils Absolute Auto 10400 /uL (1500-7000); Neutrophils Percent Auto 79.6 % (50-75); Platelet Count 229 X10^3/uL (150-400); Red Blood Cell Count 3.12 X10^6/uL (4.5-5.9); Red Cell Distribution Width 13.9 % (11.6-14.8); White Blood Cell Count 13.1 X10^3/uL (4.5-11.0)
[2019-01-28 06:03] LABS: Procalcitonin 0.69 ng/mL (<0.5)
[2019-01-28 06:14] LABS: TSH w/ Reflex to FT4 2.09 uIU/mL (0.47-4.68)
[2019-01-28] MEDS: LEVOTHYROXINE 50 MCG TABLET PO (06:16)
[2019-01-28] MEDS: BACLOFEN 10 MG TABLET PO ×3 (07:47→21:27)
[2019-01-28] MEDS: DOCUSATE 100 MG CAPSULE 200 MG PO ×2 (07:47→21:27)
[2019-01-28] MEDS: SENNOSIDES 8.6 MG TABLET 17.2 MG PO (07:47)
[2019-01-28] MEDS: POLYETHYLENE GLYCOL 3350 17 GM POWD.PACK PO (07:48)
[2019-01-28] MEDS: CLOPIDOGREL 75 MG TABLET PO (07:48)
[2019-01-28] MEDS: DULOXETINE 30 MG CAPSULE 60 MG PO (07:48)
[2019-01-28] MEDS: LISINOPRIL 5 MG TABLET 2.5 MG PO (07:49)
[2019-01-28] MEDS: METOPROLOL ER 25 MG TABLET 12.5 MG PO (07:50)
[2019-01-28] MEDS: guaiFENesin ER 600 MG TAB 1200 MG PO ×2 (07:51→21:28)
[2019-01-28] MEDS: MIRTAZAPINE 15 MG TABLET PO (07:52)
[2019-01-28] MEDS: INSULIN ASPART 100 UNIT/ML INSULN PEN SUBCUT ×4 (07:56→21:30)
[2019-01-28] MEDS: ENOXAPARIN 40 MG/0.4 ML SYRINGE SUBCUT (07:56)
[2019-01-28] MEDS: INSULIN GLARGINE 100 UNIT/ML 3ML PEN 12 UNIT SUBCUT ×2 (07:56→21:30)
[2019-01-28] MEDS: ALBUTEROL 2.5 MG/3 ML NEB (ADULT) INH ×2 (08:08→17:38)
[2019-01-28] MEDS: SODIUM CHLORIDE 0.9% FLUSH 10 ML IV ×4 (08:13→21:29)
--- NOTE | 2019-01-28 10:25 | PC.NURSE ---
Shift summary: Awake and alert, oriented X3. Speech a bit garbled but patient reports this is baseline for him. At beginning of shift patient C/O 8/10 pain and was having visible, involuntary muscle spasms (mostly in LLE). Was medicated with 30 mg PRN Oxycodone, scheduled Baclofen and PRN Vistaril. Patient is now resting quietly in bed with eyes closed. Respirations regular and unlabored. No s/sx distress, discomfort or spasms at this time. Lungs with bi-basilar fine crackles. Room air. Denies SOB. Guzman to gravity, urine clear yellow. Able to make needs known and calls appropriately. Light in reach, bed alarm on.
--- NOTE | 2019-01-28 12:12 | CM.DPC ---
Addendum entered by Kamila Cole R.N. 01/28/19 13:57: Valerie Martin, nurse from [facility], came by to evaluate patient. Stated that they should be able to accept patient tomorrow. She did mention that they have no way of getting antibiotics for him tomorrow, depending on what he is discharged with, since pharmacy is closed. Will see what antibiotics that he is discharged with, to see if he can be discharged home with this, or if it will be a once a day med. Original Note: DCP Cont: Discussed patient during team rounds. P.T. will see patient today. Dr. Coats is planning on discharging patient tomorrow, back to [facility]. Called Richelle, [facility] admissions, and she stated that her concern was him going home on I.V. antibiotics. Confirmed with Dr. Coats, that the plan is for patient to be discharged on oral antibiotics. Called and updated Richelle on this. She will work on sending someone from [facility] to come over and see patient today. Asked her about transportation tomorrow, and she mentioned that they do have an on-call furniture mover driver. Discussed patient's baseline at [facility], and she mentioned that he has limited weight bearing on leg secondary to wound, is mostly in his wheel-chair, and does go to the wound clinic. P: DCP to continue to follow closely. Awaiting assessment from [facility] today, to enable him to return to facility tomorrow. Kamila Cole RN/Rn Embedded
--- NOTE | 2019-01-28 14:59 | P.PN_ITS ---
Subjective Subjective Date Patient Seen: 01/28/19 Interval history: Ray Foster is a 63-year-old male resident of [facility] with a complex medical history consisting of previous C3-C4 spinal and traumatic brain injury, multiple CVAs, ME diagnosed earlier this year, diabetes mellitus type 1 who was brought to the ED from [facility] for fev er and was admitted for aspiration pneumonia. The patient is resting in bed comfortably. His muscle spasms have improved to baseline since receiving his baclofen and restarting his oxycodone. He reports he feels much better. He has discomfort in his legs but is at his baseline. He continues to have a non-productive cough. He has no other complaints and denies headache, shortness of breath, chest pain, abdominal pain, nausea, vomiting, fever, chills, dysuria, or diarrhea. He is voiding via denson catheter placed in ED for lethargy which will be removed today. He continues to be constipated and has not had a BM but is back on his home bowel regimen is in place. He is bed and wheelchair bound at baseline but able to perform transfers. Continue PT/OT. Exam Vital Signs (past 8 hours): - 01/28/19 11:00 01/28/19 13:36 01/28/19 15:40 Temperature 97.9 F 98.5 F Pulse Rate 80 77 Respiratory Rate 18 18 Blood Pressure 136/72 143/74 H Pulse Oximetry 95 94 96 01/28/19 17:40 01/28/19 17:45 Temperature Pulse Rate 82 Respiratory Rate 18 Blood Pressure Pulse Oximetry 96 96 Fraction of Inspired Oxygen 21 Oxygen Delivery Method Room Air Oxygen Flow Rate 0 Narrative Exam Narrative: General: Older gentleman sitting in bed, appears comfortable, occasional muscle spasm, appropriately interactive. HEENT: Normocephalic, atraumatic. External ears without defect. Pupils equal, round, and reactive to light. Anicteric sclerae, moist conjunctivae, and no lid lag. Oropharynx free of erythema and cobble stoning with moist mucosa. Mild aphasia. Neck: Supple with full range of motion. No lymphadenopathy or thyromegaly. Cardiovascular: Regular rhythm, mildly tachycardic, without murmurs, rubs, or gallops appreciated. Pulmonary: Clear to auscultation bilaterally with occasional rhonchi in right l [place]es[place] field. No crackles or wheezes. Normal respiratory effort with no use of accessory muscles. Abdomen: Soft, bowel sounds present, nontender, nondistended. No hepatosplenomegaly or masses appreciated. Extremities: No clubbing or cyanosis. Several abrasions on bilateral lower extremities. Mild edema of right leg to pretibial area with slight erythema/warmth and eschar on tip of hallux of right foot due to arterial ischemic injury status post stent due to PAD that does not appear infected. He els boggy but no pressure ulcerations. Neurological: Bilateral lower extremities are atrophied with paresis R>L. Psychiatric: Normal mood and affect. Appears to be alert and oriented to person, place, and time. Objective Labs Result Diagrams: 01/29/19 05:15 01/27/19 05:20 Labs: Laboratory Results - last 24 hr 01/28/19 01/28/19 01/28/19 04:50 04:50 04:50 WBC 13.1 H RBC 3.12 L Hgb 9.2 L Hct 27.2 L MCV 87.1 MCH 29.6 MCHC 34.0 RDW 13.9 Plt Count 229 Neut % (Auto) 79.6 H Lymph % (Auto) 12.4 L [place] % (Auto) 7.5 Eos % (Auto) 0.2 L Baso % (Auto) 0.3 Neut # (Auto) 72567 H Lymph # (Auto) 1600 [place] # (Auto) 1000 H Eos # (Auto) 0 Baso # (Auto) 0 Procalcitonin 0.69 H TSH 2.09 Assessment & Plan Assessment & Plan narrative: Ray Foster is a 63-year-old male resident of [facility] with a complex medical history consisting of previous C3-C4 spinal and traumatic brain injury, multiple CVAs, ME diagnosed earlier this year, diabetes mellitus type 1 who was brought to the ED from [facility] for fever and was admitted for aspiration pneumonia. 1. Acute probable aspiration pneumonia, present on admission. Active. -Patient presented from [facility] with fever and was found to have aspiration pneumonia. -Chest x-ray demonstrated right infrahilar alveolar opacity seen is irregularity of the diaphragmatic contour suspicious for pneumonia, infectious or aspiration. -Initial WBC 25.3 and procalcitonin 0.16 and peaked at 1.31. Both WBC and PCT continue to trend and will continue to monitor daily. -Ordered complete pneumonia workup including: Respiratory viral PCR negative. Strep pneumoniae and Legionella urine antigens, pending. Sputum culture which has not yet been obtained as patient has nonproductive cough. Blood cultures x2 have no growth to date. -Received ceftriaoxne 1 g IV x 1 in the ED. Continue Zosyn 4.5 g every 6 hours for broad spectrum coverage including anaerobes and will transition to PO antibiotics tomorrow and likely discharge to [facility]. -Continue RT evaluation and treatment. Continue albuterol nebulizer every 6 hours while awake. -Continue speech therapy evaluation and treatment who advanced diet yesterday and will not be available on the weekend. Recommed continued outpatient therapy. 2. Acute metabolic encephalopathy, present on admission. Resolved. -Secondary to acute aspiration pneumonia and [employer] depressant medications (oxycodone, baclofen, hydroxyzine) -Held oxycodone, baclofen, hydroxyzine initially and restarted once mentation improved. -Continue to treat aspiration pneumonia as above. 3. Diabetes mellitus type 1, chronic, present on admission. Stable. -Hemoglobin A1c of 7.5% 01/2019. -Continue Lantus 12 untis twice daily. -Continue [facility] blood glucose checks and low-dose correctional scale insulin. -Continue heart healthy/carbohydrate coonsistent diet. 4. CAD and history of CVA, chronic, present on admission. Stable. -Continue home metoprolol succinate 12.5 mg daily, aspirin 325 mg daily, and plavix 75 mg daily. 5. Hypertension, chronic, present on admission. Stable. -Continue home lisinopril 2.5 mg daily. 6. Hypothyroidism, chronic, present on admission. Stable. -TSH normal at 2.09. -Continue home levothyroxine 50 mcg daily. 7. Chronic pain syndrome with opiate dependence, chronic, present on admission. Stable. -[facility] at [facility] [place]. -Discontinued MS Contin 30 mg twice daily as patient reports it does nothing. -Continue oxycodone 30 mg every 4 hours as needed for pain, clonazepam 0.5 mg three times a day as needed for muscle spasms/anxiety, and baclofen 10 mg three times daily. 8. Depression, chronic, present on admission. Stable. -Continue home duloxetine 60 mg daily and mirtazapine 15 mg daily. 9. Opiate induced constipation, chronic, present on admission. Stable. -Continue home regimen of laxatives and stool softener. 10. PAD status post stenting on right leg, present on admission. -Patient recently had arterial ischemic injury to right Hallux with eschar and is followed by wound care outpatient and will continue. 11. 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 Stable. Disposition: Patient likely to discharge back to assisted living facility at [place] tomorrow.
[2019-01-28] MEDS: ATORVASTATIN 20 MG TABLET 80 MG PO (21:27)
[2019-01-29] VITALS (9 sets, daily range): BP systolic 127–146; BP diastolic 57–85; PULSE 66–89; RESP 14–20; TEMP 36.7–37.1; O2SAT 91–97
[2019-01-29] MEDS: ONDANSETRON 4 MG/2 ML INJ IV ×2 (00:01→06:13)
[2019-01-29] MEDS: SODIUM CHLORIDE 0.9% FLUSH 10 ML IV ×2 (00:02→08:52)
[2019-01-29] MEDS: PIPERACILLIN-TAZO 4.5 GM/100 ML FROZ.PIGGY IV ×2 (00:02→06:13)
[2019-01-29] MEDS: hydrOXYzine pamoate 25 MG CAPSULE PO ×2 (04:29→12:06)
[2019-01-29] MEDS: OXYCODONE IR 10 MG TABLET 30 MG PO ×3 (04:29→12:05)
[2019-01-29 05:43] LABS: Add Manual Diff / Slide Review NO; Basophils Absolute Auto 0 /uL (0-100); Basophils Percent Auto 0.5 % (0-2); Eosinophils Absolute Auto 200 /uL (0-450); Eosinophils Percent Auto 2.3 % (2-4); Hematocrit 28.4 % (41-53); Hemoglobin 9.9 g/dL (13.5-17.5); Lymphocytes Absolute Auto 2000 /uL (1100-4500); Lymphocytes Percent Auto 20.4 % (25-40); Mean Corpuscular HGB Conc 34.8 % (30-36); Mean Corpuscular Hemoglobin 29.7 PG (26-34); Mean Corpuscular Volume 85.3 fL (80-100); Monocytes Absolute Auto 700 /uL (0-900); Monocytes Percent Auto 7.3 % (3-14); Neutrophils Absolute Auto 6900 /uL (1500-7000); Neutrophils Percent Auto 69.5 % (50-75); Platelet Count 272 X10^3/uL (150-400); Red Blood Cell Count 3.32 X10^6/uL (4.5-5.9); Red Cell Distribution Width 13.8 % (11.6-14.8); White Blood Cell Count 9.9 X10^3/uL (4.5-11.0)
[2019-01-29 05:54] LABS: HEMOLYSIS < 15 (0-50); Iron 35 ug/dL (49-181)
[2019-01-29 06:05] LABS: Percent Iron Saturation 16 % (20-50); Total Iron Binding Capacity 219 ug/dL (261-462); Transferrin 162 mg/dL (206-381)
[2019-01-29 06:11] LABS: Procalcitonin 0.34 ng/mL (<0.5)
[2019-01-29] MEDS: LEVOTHYROXINE 50 MCG TABLET PO (06:13)
[2019-01-29] MEDS: ALBUTEROL 2.5 MG/3 ML NEB (ADULT) INH ×2 (06:22→10:46)
--- NOTE | 2019-01-29 07:36 | P.DS_ITS ---
History of Present Illness History of Present Illness Date Patient Seen: 01/26/19 Chief complaint: Fever Narrative: Written by Huyen HADDAD: Ray Foster is a 63-year-old male resident of [facility] living [facility] with a complex mental ankle history consisting of a head injury, multiple strokes, DE diagnosed earlier this year, diabetes type 1, was sent over here from the facility with a temperature of 101?. He was noted in the ED to have very coarse lung sounds, mildly hypoxemic with an oxygen saturation of 94%, with a elevated heart rate and a decreased blood pressure. The patient is unable to provide much of a history appearing to be due to speech impairment and lethargy. His step-mother is present in the room to provide some history. She stated that he did have a fever and then started to vomit as well as have a productive cough. He denies any problems with his vision, denies sore throat even though he has a cough, and denies chest pain he does endorse having shortness of breath and a productive cough, he denies having any abdominal pain, he denies dysuria diarrhea or constipation, he does have pain in his left big toe. Discharge Providers Provider Date of admission: 01/25/19 23:03 Discharge Date: 01/29/19 Primary care physician: Linda Denise MD Consults: 01/26/19 00:32 Consult to Respiratory Therapy Evaluate & Treat Comment: Physician Instructions: Evaluate and treat 01/26/19 01:45 Consult to Dietitian, Adult Routine Comment: Reason For Exam: Reflexed from admission assessment 01/26/19 14:55 Consult to Speech Therapy Evaluate & Treat Comment: pt coughing with thin liquids, dysphagia history Physician Instructions: Evaluate and treat 01/27/19 23:40 Consult to Speech Therapy Evaluate & Treat Comment: Aspiration, h/o of dysphagia after CVA's Physician Instructions: Evaluate and treat Discharge provider: Ghada Coats DO Summary Hospital Course Discharge Diagnosis: 1. Acute probable aspiration pneumonia, present on admission. Resolving. 2. Acute metabolic encephalopathy, present on admission. Resolved. 3. Diabetes mellitus type 1, chronic, present on admission. Stable. 4. CAD and history of CVA, chronic, present on admission. Stable. 5. Hypertension, chronic, present on admission. Stable. 6. Hypothyroidism, chronic, present on admission. Stable. 7. Chronic pain syndrome with opiate dependence, chronic, present on admission. Stable. 8. Depression, chronic, present on admission. Stable. 9. Opiate induced constipation, chronic, present on admission. Stable. 10. PAD status post stenting on right leg, present on admission. 11. 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 Stable. Hospital Course: Ray Foster is a 63-year-old male resident of [facility] with a complex medical history consisting of previous C3-C4 spinal and traumatic brain injury, multiple CVAs, DE diagnosed earlier this year, diabetes mellitus type 1 who was brought to the ED from [facility] for fever and was admitted for aspiration pneumonia. 1. Acute probable aspiration pneumonia, present on admission. Resolving. -Patient presented from [facility] with fever and was found to have aspiration pneumonia. -Chest x-ray demonstrated right infrahilar alveolar opacity seen is irregularity of the diaphragmatic contour suspicious for pneumonia, infectious or aspiration. -Initial WBC 25.3 and procalcitonin 0.16 and peaked at 1.31. Both WBC and PCT normalized and continued to monitor daily. -Ordered complete pneumonia workup including: Respiratory viral PCR negative. Strep pneumoniae and Legionella urine antigens, pending. Sputum culture which was not obtained as patient had nonproductive cough. Blood cultures x2 have no growth to date. -Received ceftriaoxne 1 g IV x 1 in the ED. Continued Zosyn 4.5 g every 6 hours for broad spectrum coverage including anaerobes and switched to Augmentin -Continued RT evaluation and treatment. Continued albuterol nebulizer every 6 hours while awake as needed for shortness of breath. -Continued speech therapy evaluation and treatment who advanced diet to dysphagia mechanical with thin liquids. Recommend continued outpatient therapy. 2. Acute metabolic encephalopathy, present on admission. Resolved. -Secondary to acute aspiration pneumonia and [employer] depressant medications (oxycodone, baclofen, hydroxyzine) -Held oxycodone, baclofen, hydroxyzine initially and restarted once mentation improved. -Continued to treat aspiration pneumonia as above. 3. Diabetes mellitus type 1, chronic, present on admission. Stable. -Hemoglobin A1c of 7.5% 01/2019. -Continued Lantus 12 untis twice daily. -Continued [facility] blood glucose checks and low-dose correctional scale insulin. -Continued heart healthy/carbohydrate consistent diet. 4. CAD and history of CVA, chronic, present on admission. Stable. -Continued home metoprolol succinate 12.5 mg daily, aspirin 325 mg daily, and plavix 75 mg daily. 5. Hypertension, chronic, present on admission. Stable. -Continued home lisinopril 2.5 mg daily. 6. Hypothyroidism, chronic, present on admission. Stable. -TSH normal at 2.09. -Continued home levothyroxine 50 mcg daily. 7. Chronic pain syndrome with opiate dependence, chronic, present on admission. Stable. -He is [facility] at [facility] [place]. -Discontinued MS Contin 30 mg twice daily as patient reports it does nothing. -Continued oxycodone 30 mg every 4 hours as needed for pain, clonazepam 0.5 mg three times a day as needed for muscle spasms/anxiety, and baclofen 10 mg three times daily. 8. Depression, chronic, present on admission. Stable. -Continued home duloxetine 60 mg daily and mirtazapine 15 mg daily. 9. Opiate induced constipation, chronic, present on admission. Stable. -Continued home regimen of laxatives and stool softener. 10. PAD status post stenting on right leg, chronic, present on admission. Stable. -Patient recently had arterial ischemic injury to right Hallux with eschar and is followed by wound care outpatient. Continue outpatient wound care clinic management. 11. 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 Stable. Status at Discharge Functional status at discharge: wheelchair bound Overall status at discharge: patient is back to baseline Exam Vital Signs (past 8 hours): - 01/29/19 01:00 01/29/19 04:00 01/29/19 04:29 Temperature 98.3 F 98.3 F Pulse Rate 66 75 Respiratory Rate 18 16 Blood Pressure 146/85 H 127/57 L Pulse Oximetry 95 91 93 01/29/19 05:00 01/29/19 06:22 Temperature Pulse Rate 71 Respiratory Rate 16 Blood Pressure Pulse Oximetry 93 97 Fraction of Inspired Oxygen 21 Oxygen Delivery Method Room Air Oxygen Flow Rate 0 Narrative Exam Narrative: General: Older gentleman sitting in bed, appears comfortable, occasional muscle spasms, appropriately interactive. HEENT: Normocephalic, atraumatic. External ears without defect. Pupils equal, round, and reactive to light. Anicteric sclerae, moist conjunctivae, and no lid lag. Oropharynx free of erythema and cobble stoning with moist mucosa. Mild aphasia. Neck: Supple with full range of motion. No lymphadenopathy or thyromegaly. Cardiovascular: Regular rhythm, mildly tachycardic, without murmurs, rubs, or gallops appreciated. Pulmonary: Clear to auscultation bilaterally without crackles, wheezes, or rhonchi. Normal respiratory effort with no use of accessory muscles. Abdomen: Soft, bowel sounds present, nontender, nondistended. No hepatosplenomegaly or masses appreciated. Extremities: No clubbing or cyanosis. Several abrasions on bilateral lower extremities. Mild edema of right leg to pretibial area with slight erythema/warmth and eschar on tip of hallux of right foot due to arterial ischemic injury status post stent due to PAD that does not appear infected. Heels boggy but no pressure ulcerations. Neurological: Bilateral lower extremities are atrophied with paresis R>L. Psychiatric: Normal mood and affect. Appears to be alert and oriented to person, place, and time. Objective Labs Result Diagrams: 01/29/19 05:15 01/27/19 05:20 Labs: Laboratory Results - last 24 hr 01/29/19 01/29/19 01/29/19 05:15 05:15 05:15 WBC 9.9 RBC 3.32 L Hgb 9.9 L Hct 28.4 L MCV 85.3 MCH 29.7 MCHC 34.8 RDW 13.8 Plt Count 272 Neut % (Auto) 69.5 Lymph % (Auto) 20.4 L [place] % (Auto) 7.3 Eos % (Auto) 2.3 Baso % (Auto) 0.5 Neut # (Auto) 6900 Lymph # (Auto) 2000 [place] # (Auto) 700 Eos # (Auto) 200 Baso # (Auto) 0 Iron 35 L TIBC 219 L % Saturation 16 L Transferrin 162 L Procalcitonin 0.34 Discharge Plan Discharge Plan Patient Disposition: Assisted Living Transfer to: [facility] Discharge Med Rec/Prescriptions Prescriptions: New amoxicillin-pot clavulanate [Augmentin] 875-125 mg Tablet 1 tab PO BID Qty: 7 RF: 0 Continued atorvastatin 80 MG tablet 80 mg PO HS Qty: 0 RF: 0 aspirin 325 MG tablet 325 mg PO QDAY Qty: 0 RF: 0 clopidogrel 75 MG tablet 75 mg PO QDAY Qty: 0 RF: 0 levothyroxine 50 MCG tablet 50 mcg PO QAM Qty: 0 RF: 0 duloxetine 60 MG capsule,delayed release(DR/EC) 60 mg PO QDAY Qty: 0 RF: 0 metoprolol succinate [Toprol XL] 25 MG tablet extended release 24 hr 12.5 mg PO QDAY Qty: 0 RF: 0 polyethylene glycol 3350 [Miralax] 17 GM powder in packet 17 gm PO QDAY Qty: 0 RF: 0 sennosides [senna] 8.6 MG tablet 2 tab PO QDAY Qty: 0 RF: 0 acetaminophen 325 MG tablet 2 tab PO Q4HP PRN (Reason: Pain (Scale Score 1-3)) Qty: 0 RF: 0 omeprazole 20 MG capsule,delayed release(DR/EC) 20 mg PO DAILY Qty: 0 RF: 0 bisacodyl 10 MG suppository 10 mg [place] PRN PRN (Reason: Constipation) Qty: 0 RF: 0 bisacodyl [Fleet Laxative] 5 MG tablet,delayed release (DR/EC) 5 mg PO PRN PRN (Reason: Constipation) Qty: 0 RF: 0 Maalox Maximum Strength 355 ML suspension 30 ml PO PRN PRN (Reason: Acid Reflux) Qty: 0 RF: 0 magnesium hydroxide [Milk of Magnesia] 400 mg/5 mL Suspension 30 ml PO DAILY PRN (Reason: Constipation) RF: 0 docusate sodium 100 mg Capsule 2 tab PO BID RF: 0 calcium carbonate 600 mg calcium (1,500 mg) Tablet 1,200 mg PO DAILY RF: 0 vitamin B complex [B Complex-Vitamin B12] Tablet 1 tab PO DAILY RF: 0 mirtazapine 15 mg Tablet 15 mg PO DAILY RF: 0 fluticasone propionate 50 mcg/actuation Lent[place],Suspension 1 spray INTRANASAL DAILY RF: 0 cholecalciferol (vitamin D3) 1,000 unit Capsule 1,000 unit PO DAILY RF: 0 ascorbic acid (vitamin C) 500 mg Capsule 500 mg PO DAILY RF: 0 hydroxyzine pamoate 25 mg Capsule 1 - 2 tab PO Q6H PRN (Reason: Spasms) RF: 0 insulin glargine 100 unit/mL (3 mL) Insulin Pen 8 unit SUBCUT BID RF: 0 ondansetron 4 mg Tablet,Disintegrating 4 mg PO Q4H PRN (Reason: Nausea) RF: 0 bisacodyl 5 mg Tablet 2 tab PO BEDTIME PRN (Reason: Constipation) RF: 0 ammonium lactate 12 % Lotion 1 applic TOPICAL BID RF: 0 furosemide [Lasix] 20 mg Tablet 40 mg PO QAM RF: 0 guaifenesin [Mucinex] 600 mg Tablet Extended Release 12hr 600 mg PO Q12H RF: 0 cetirizine 10 mg Tablet 10 mg PO DAILY PRN (Reason: allergies) RF: 0 sodium chloride [Saline Mist] 0.65 % Aerosol,[place]entner 2 spray INTRANASAL QID PRN (Reason: Congestion) RF: 0 clonazepam 0.5 mg tablet 0.5 mg PO TID PRN (Reason: Anxiety) Qty: 10 RF: 0 oxycodone 10 mg Tablet 3 tab PO Q4H PRN (Reason: Pain (Scale Score 1-3)) Qty: 10 RF: 0 dextromethorphan HBr 30 mg/5 mL liquid 60 mg PO BID RF: 0 insulin aspart U-100 [Novolog Flexpen U-100 Insulin] 100 unit/mL insulin pen 100 unit SUBCUT QID RF: 0 baclofen 10 mg tablet 10 mg PO TID RF: 0 ibuprofen 400 mg tablet 400 mg PO Q4H PRN (Reason: Pain (Scale Score 1-3)) RF: 0 lisinopril 2.5 mg tablet 2.5 mg PO DAILY RF: 0 nystatin 100,000 unit/gram powder 1 applictn TOP Q12H PRN (Reason: yeast) RF: 0 artifi.tears(hypromellose)(PF) 0.3 % drops 2 ea EYE-BOTH .q12 PRN (Reason: Dry Eye(S)) RF: 0 Discontinued morphine [MS Contin] 30 mg Tablet Extended Release 30 mg PO BID RF: 0 Follow up/Referrals: Linda Denise MD [Primary Care Provider] - Discharge Orders: Discharge (Order); Ordered 01/29/19 Ordered By: Ghada Coats Discharge Health Status Brief summary of current health status: Ray Foster is a 63-year-old male resident of [facility] with a complex medical history consisting of previous C3-C4 spinal and traumatic brain injury, multiple CVAs, DE diagnosed earlier this year, diabetes mellitus type 1 who was brought to the ED from [facility] for fever and was admitted and treated for aspiration pneumonia. Multidrug resistant organism: No MDRO Provider Discharge Instructions Diet: Diet as Tolerated, Carb-consistent/Diabetic, Low-fat, Low-sodium and Low- cholesterol Liquid consistency: Normal/Thin Diet comment: dysphagia mech, 90?, alt liquids/solids, small bites/sips, swallow hard Activity: Activity as tolerated [facility] Rehab type: Speech therapy Visit Report/Discharge Packet Visit Report Forms: Stroke Signs & Symptoms Discharge Data Primary Care Provider: Linda Denise Discharges patient from system. Discharge Date/Time: 01/29/19 12:56
[2019-01-29] MEDS: INSULIN ASPART 100 UNIT/ML INSULN PEN SUBCUT ×2 (08:43→12:07)
[2019-01-29] MEDS: LISINOPRIL 5 MG TABLET 2.5 MG PO (08:49)
[2019-01-29] MEDS: BACLOFEN 10 MG TABLET PO (08:49)
[2019-01-29] MEDS: MIRTAZAPINE 15 MG TABLET PO (08:49)
[2019-01-29] MEDS: AMOXICILLIN/CLAV 875/125 MG 1 TAB PO ×2 (08:49→12:06)
[2019-01-29] MEDS: DULOXETINE 30 MG CAPSULE 60 MG PO (08:50)
[2019-01-29] MEDS: ENOXAPARIN 40 MG/0.4 ML SYRINGE SUBCUT (08:50)
[2019-01-29] MEDS: SENNOSIDES 8.6 MG TABLET 17.2 MG PO (08:50)
[2019-01-29] MEDS: CLOPIDOGREL 75 MG TABLET PO (08:50)
[2019-01-29] MEDS: DOCUSATE 100 MG CAPSULE 200 MG PO (08:50)
[2019-01-29] MEDS: guaiFENesin ER 600 MG TAB 1200 MG PO (08:51)
[2019-01-29] MEDS: MAGNESIUM HYDROXIDE 30 ML UDC PO (08:51)
[2019-01-29] MEDS: INSULIN GLARGINE 100 UNIT/ML 3ML PEN 12 UNIT SUBCUT (08:54)
[2019-01-29] MEDS: METOPROLOL ER 25 MG TABLET 12.5 MG PO (08:58)
--- NOTE | 2019-01-29 10:57 | CM.DPC ---
DCP Cont: Received discharge orders today. Updated Richelle, admissions at [facility]. She did confirm that they would not be able to get patient's second dose of Amoxicillan until tomorrow. Updated Dr. Coats, hospitalist, regarding situation, for pharmacy here at hospital can't send an extra tablet. Confirmed with patient that he does not use any other pharmacy. Went ahead and had him sign the IMM. Nurse, Katharina, will give second antibiotic early. [facility] will deliver antibiotics tomorrow for patient. Confirmed medicinal plant picker time at 1230, for they are not able to medicinal plant picker patient any later. He is aware. Faxed over DC summary, med list, to [facility], indicating on fax that patient would receive second dose of ABO here. P: Patient is to be discharged back to [facility] today. Kamila Cole RN/[employer]
--- NOTE | 2019-01-29 12:54 | PC.NURSE ---
Transfer to SNF: IV dc'd intact. All personal belongings collected and sent with patient. Report called to Eusebia at [facility]. Stand-pivot transferred into wheelchair. Transfer packet given to [facility] staff (including script for Oxycodone). Wheeled out to vehicle by [facility] transport personnel.
[2019-01-30 00:01] LABS: Strep pneumoniae Ag, Urine NOT DETECTED
== END 2019-01-29 12:56 | DRG 177 ==
LOC: ED 22:53 → AC 23:00
PROVIDERS: Internal Medicine; Admitting Provider Nurse Practitioner Family; Emergency Provider Emergency Medicine; Family Provider Nurse Practitioner Family; PCP Internal Medicine; Visit Provider Nurse Practitioner Family
DX: J69.0 Pneumonitis due to inhalation of food and vomit (principal); G93.41 Metabolic encephalopathy; G92 Toxic encephalopathy; F11.20 Opioid dependence, uncomplicated; E10.51 Type 1 diabetes mellitus with diabetic peripheral angiopathy without gangrene; Z79.4 Long term (current) use of insulin; I69.365 Other paralytic syndrome following cerebral infarction, bilateral; F17.210 Nicotine dependence, cigarettes, uncomplicated; I10 Essential (primary) hypertension; E78.5 Hyperlipidemia, unspecified; E03.9 Hypothyroidism, unspecified; G89.29 Other chronic pain; F32.9 Major depressive disorder, single episode, unspecified; K59.03 Drug induced constipation; T40.2X5A Adverse effect of other opioids, initial encounter; I25.10 Atherosclerotic heart disease of native coronary artery without angina pectoris
CPT/HCPCS: 11042; 36415; 51701; 71045; 80048; 80053; 81001; 81003; 82962; 83036; 83540; 83550; 83605; 83690; 83735; 84145; 84443; 85025; 85610; 87040; 87449; 87633; 92526; 92610; 93005; 93010; 94640; 94760; 94762; 96365; 99285; 99291; J0696; J1650; J2185; J2405; J2543; J7613

== ENCOUNTER → 2019-01-30 13:36 | Outpatient (CLI) | payer MEDICARE, MEDICAID, SELFPAY ==
[2019-01-26 01:30] VITALS: BMI 26.0
== END ==
PROVIDERS: Family Provider Nurse Practitioner Family; PCP Internal Medicine; Visit Provider Podiatrist Primary Podiatric Medicine
DX: E10.621 Type 1 diabetes mellitus with foot ulcer (principal); E10.51 Type 1 diabetes mellitus with diabetic peripheral angiopathy without gangrene; L97.519 Non-pressure chronic ulcer of other part of right foot with unspecified severity; R60.0 Localized edema
CPT/HCPCS: 15275; Q4196

== ENCOUNTER → 2019-02-13 08:47 | Outpatient (CLI) | payer MEDICARE, MEDICAID, SELFPAY ==
[2019-01-26 01:30] VITALS: BMI 26.0
== END ==
PROVIDERS: Family Provider Nurse Practitioner Family; PCP Internal Medicine; Visit Provider Podiatrist Primary Podiatric Medicine
DX: E10.621 Type 1 diabetes mellitus with foot ulcer (principal); L97.511 Non-pressure chronic ulcer of other part of right foot limited to breakdown of skin; E10.51 Type 1 diabetes mellitus with diabetic peripheral angiopathy without gangrene; R60.0 Localized edema
CPT/HCPCS: 15275; Q4196

== ENCOUNTER 2019-02-20 16:16 | Emergency (ER) | payer MEDICARE, MEDICAID, SELFPAY ==
[2019-01-26 01:30] VITALS: BMI 26.0
[2019-02-20 16:29] VITALS: BP 168/120; PULSE 103; RESP 20; TEMP 37.2; O2SAT 98
--- NOTE | 2019-02-20 16:30 | DI.CT.S_ITS ---
PROCEDURE: CT FACIAL BONES WO CON INDICATIONS: pain status post glf TECHNIQUE: Noncontrast 2.5 mm thick axial images acquired from the mandible through the frontal sinuses, with coronal and sagittal reformatting. For radiation dose reduction, the following was used: automated exposure control, adjustment of mA and/or kV according to patient size. COMPARISON: [facility], CT, CT HEAD/BRAIN WO CON, 08/13/2018, 21:08. [facility], CT, CT HEAD/BRAIN WO CON, 02/20/2019, 16:35. FINDINGS: Image quality: Diagnostic, with note made of motion artifact. Bones and teeth: Orbital holliday are intact. Sinus holliday show no fracture or deformity. Nasal bones and septum are intact. Visualized portions of the mandible demonstrate no fractures or subluxation. Zygomatic arches are intact. Pterygoid plates are intact. Visualized portions of the skull base and auditory canals are intact. Sinuses: Paranasal sinuses are aerated, without fluid levels, mucosal thickening, or mucoceles. Mastoid air cells are aerated. Soft tissues: No edema, masses, or fluid collections. No enlarged lymph nodes. No soft tissue lacerations or debris. Vascular: Visualized vascular structures appear normal in the absence of contrast. Bony vascular foramina and canals are intact. IMPRESSION: No displaced facial bone fractures are seen. Dictated by: Bryan Her M.D. on 02/20/2019 at 16:05 Approved by: Bryan Her M.D. on 02/20/2019 at 16:08
--- NOTE | 2019-02-20 16:30 | DI.CT.S_ITS ---
PROCEDURE: CT HEAD/BRAIN WO CON INDICATIONS: glf, hit head on plavix TECHNIQUE: Noncontrast 4.5 mm thick angled axial sections acquired from the foramen magnum to the vertex, with coronal and sagittal reformats. For radiation dose reduction, the following was used: automated exposure control, adjustment of mA and/or kV according to patient size. COMPARISON: [facility], CT, HEAD WITHOUT CONTRAST, 07/24/2017, 9:43. [facility], CT, CT HEAD/BRAIN WO CON, 08/13/2018, 21:08. FINDINGS: Image quality: Excellent. CSF spaces: Basal cisterns are patent. No extra-axial fluid collections. The ventricles are unchanged symmetric in size and shape. There is mild cerebral volume loss, with resultant ventricular and sulcal prominence. Brain: No intracranial hemorrhage, mass, or mass effect. There are subcortical, periventricular and deep white matter hypodensities consistent with mild to moderate chronic small vessel ischemic changes. There are curvilinear hypodensities within the left thalamus and posterior horn of the left internal capsule redemonstrated. There is intracranial internal carotid artery atherosclerosis. Skull and face: Calvarium and visualized facial bones are intact, without suspicious lesions. Sinuses: Visualized sinuses and mastoids are clear. IMPRESSION: 1. No acute intracranial abnormality. 2. Mild to moderate chronic white matter small vessel ischemic changes and mild cerebral white loss. 3. Hypodensities in the left caudate and posterior horn of the left internal capsule redemonstrated. The findings are nonspecific but suggestive of a prior lacunar infarct and are unchanged compared to the prior studies. Dictated by: Artemio Vaz M.D. on 02/20/2019 at 16:47 Approved by: Artemio Vaz M.D. on 02/20/2019 at 16:50
[2019-02-20 16:45] VITALS: BP 179/79; PULSE 95; RESP 18; O2SAT 98
[2019-02-20 16:56] LABS: Add Manual Diff / Slide Review NO; Basophils Absolute Auto 100 /uL (0-100); Basophils Percent Auto 0.8 % (0-2); Eosinophils Absolute Auto 400 /uL (0-450); Eosinophils Percent Auto 2.5 % (2-4); Hematocrit 37.1 % (41-53); Hemoglobin 12.4 g/dL (13.5-17.5); Lymphocytes Absolute Auto 1900 /uL (1100-4500); Lymphocytes Percent Auto 13.1 % (25-40); Mean Corpuscular HGB Conc 33.4 % (30-36); Mean Corpuscular Hemoglobin 29.6 PG (26-34); Mean Corpuscular Volume 88.6 fL (80-100); Monocytes Absolute Auto 1300 /uL (0-900); Neutrophils Absolute Auto 10600 /uL (1500-7000); Neutrophils Percent Auto 74.6 % (50-75); Platelet Count 369 X10^3/uL (150-400); Red Blood Cell Count 4.19 X10^6/uL (4.5-5.9); Red Cell Distribution Width 14.5 % (11.6-14.8); White Blood Cell Count 14.3 X10^3/uL (4.5-11.0)
[2019-02-20 17:00] VITALS: BP 160/65; PULSE 91; RESP 18; O2SAT 97
[2019-02-20 17:02] LABS: Prothrombin Time 11.2 SECONDS (10.1-12.7)
[2019-02-20 17:05] LABS: PTT Partial Thromboplastin Tim 32 SECONDS (26.4-36.2)
[2019-02-20 17:06] LABS: Alanine Aminotransferase 34 IU/L (21-72); Albumin 4.4 g/dL (3.5-5.0); Albumin Globulin Ratio 1.3 (1.0-2.8); Alkaline Phosphatase 129 U/L (38-126); Aspartate Aminotransferase 31 IU/L (17-59); BUN Creatinine Ratio 24.7 (6-22); Bilirubin Total 0.3 mg/dL (0.2-1.3); Blood Urea Nitrogen 42 mg/dL (9-20); Calcium 9.7 mg/dL (8.4-10.2); Carbon Dioxide 31 mmol/L (22-32); Chloride 102 mmol/L (98-107); Globulin 3.3 g/dL (1.7-4.1); Glucose 142 mg/dL (80-110); HEMOLYSIS < 15 (0-50); Sodium 142 mmol/L (137-145); Total Protein 7.7 g/dL (6.3-8.2)
[2019-02-20 17:30] VITALS: BP 164/100; PULSE 84; RESP 18; TEMP 36.7; O2SAT 98
[2019-02-20] MEDS: TET,DIPH,PERTUSS(ACELL),VAC/PF 0.5 ML SYRINGE IM (17:33)
[2019-02-20] MEDS: ACETAMINOPHEN 325 MG TABLET 650 MG PO (17:34)
--- NOTE | 2019-02-20 17:37 | PC.NURSE ---
report to Valerie at [facility] about pt and his return, she is calling for transport
--- NOTE | 2019-02-20 20:40 | ED.FALL ---
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 He states he fell out of wheelchair and hit his forehead. No loss of consciousness. He denies any neck or back pain. He does take Plavix. Thus a modified trauma was activated on this patient. The patient states that he just wants a head scan and to leave. He states he has a slight headache. He denies any dizziness, nausea vomiting, fever. He denies any new incontinence of bowel, incontinence of bladder or numbness in his groin. The patient repeats that he wants a brain scan and to leave. He does have an abrasion on his forehead and does not know when his most recent tetanus was. Related Data Home Medications Medication Instructions Recorded Confirmed Maalox Maximum Strength 30 ml PO PRN PRN #0 06/29/17 01/25/19 acetaminophen 2 tab PO Q4HP PRN #0 06/29/17 01/25/19 atorvastatin 80 mg PO BEDTIME #0 06/29/17 02/20/19 bisacodyl 10 mg MS PRN PRN #0 06/29/17 01/25/19 bisacodyl [Fleet Laxative] 5 mg PO PRN PRN #0 06/29/17 01/25/19 clopidogrel 75 mg PO DAILY #0 06/29/17 02/20/19 levothyroxine 50 mcg PO QAM #0 06/29/17 02/20/19 metoprolol succinate [Toprol XL] 12.5 mg PO DAILY #0 06/29/17 02/20/19 omeprazole 40 mg PO [id number] #0 06/29/17 02/20/19 polyethylene glycol 3350 [Miralax] 17 gm PO DAILY #0 06/29/17 02/20/19 sennosides [senna] 2 tab PO DAILY #0 06/29/17 02/20/19 artifi.tears(hypromellose)(PF) 0.3 2 ea EYE-BOTH .q12 PRN ml 11/25/17 01/25/19 % eye drops baclofen 10 mg tablet 10 mg PO TID 11/25/17 01/25/19 ibuprofen 400 mg tablet 400 mg PO Q4H PRN 11/25/17 01/25/19 insulin aspart U-100 100 unit/mL 100 unit SUBCUT QID 11/25/17 01/25/19 (3 mL) subcutaneous pen nystatin 100,000 unit/gram topical 1 applictn TOP Q12H PRN 11/25/17 01/25/19 powder docusate sodium 2 tab PO BID 03/05/18 01/25/19 magnesium hydroxide [Milk of 30 ml PO DAILY PRN 03/05/18 01/25/19 Magnesia] ammonium lactate 1 applic TOPICAL BID 08/13/18 01/25/19 ascorbic acid (vitamin C) 500 mg PO DAILY 08/13/18 01/25/19 bisacodyl 2 tab PO BEDTIME PRN 08/13/18 01/25/19 calcium carbonate 1,200 mg PO DAILY 08/13/18 02/20/19 cholecalciferol (vitamin D3) 1,000 unit PO DAILY 08/13/18 01/25/19 fluticasone propionate 1 spray INTRANASAL DAILY 08/13/18 01/25/19 guaifenesin [Mucinex] 600 mg PO Q12H 08/13/18 01/25/19 hydroxyzine pamoate 1 - 2 tab PO Q6H PRN 08/13/18 01/25/19 insulin glargine 8 unit SUBCUT BID 08/13/18 01/25/19 mirtazapine 22.5 mg PO QPM 08/13/18 02/20/19 ondansetron 4 mg PO Q4H PRN 08/13/18 01/25/19 vitamin B complex [B 1 tab PO DAILY 08/13/18 01/25/19 Complex-Vitamin B12] dextromethorphan HBr 30 mg/5 mL 60 mg PO BID 11/08/18 01/25/19 oral liquid cetirizine 10 mg PO DAILY PRN 01/25/19 01/25/19 sodium chloride [Saline Mist] 2 spray INTRANASAL QID PRN 01/25/19 01/25/19 aspirin 325 mg PO DAILY 02/20/19 02/20/19 furosemide 40 mg PO DAILY 02/20/19 02/20/19 Previous Rx's Medication Instructions Recorded amoxicillin-pot clavulanate 1 tab PO BID #7 tab 01/29/19 [Augmentin] clonazepam 0.5 mg PO TID PRN #10 tab 01/29/19 oxycodone 3 tab PO Q4H PRN #10 tab 01/29/19 Allergies Allergy/AdvReac Type Severity Reaction Status Date / Time codeine [CODEINE] AdvReac Unknown nausea Verified 01/25/19 20:27 Review of Systems <BLAS Wong - Last Filed: 02/20/19 20:45> Review of Systems Narrative: GENERAL: Denies chills, fatigue, malaise, fever, sweats. HEENT: Denies sinus pain, ear pain, sore throat, difficulty swallowing, dizziness. RESPIRATORY: Denies dyspnea, cough, wheezing, hemoptysis, sputum. CARDIOVASCULAR: Denies chest pain, palpitations, orthopnea, edema, GASTROINTESTINAL: Denies nausea, vomiting, abdominal pain, diarrhea, constipation, melena. : Denies dysuria, frequency, incontinence, hematuria, urinary retention. MUSCULOSKELETAL: denies weakness, joint pain, or bony pain SKIN: See HPI NEUROLOGIC: See HPI PSYCHIATRIC: No concerning psychosocial issues. 12 point review of systems is negative except for those stated above Patient History <BLAS Wong - Last Filed: 02/20/19 20:45> Medical History (Updated 02/20/19 @ 17:39 by BLAS Wong) C3 spinal cord injury (Acute) C4 spinal cord injury (Acute) CVA (cerebral vascular accident) (Acute) Diabetes (Acute) Gastroesophageal reflux disease (Acute) Hyperlipidemia (Acute) Hypertension (Acute) Surgical History (Updated 01/26/19 @ 01:41 by BOO Anderson) History of carotid endarterectomy (Acute) History of coronary artery stent placement (Acute) No pertinent past surgical history (Acute) Family History (Updated 01/26/19 @ 01:43 by BOO Anderson) Mother Cancer Father Lung disease Hyperlipidemia Brother Lupus Social History (Updated 01/25/19 @ 21:19 by Estuardo Blue MD) household members: caregiver Smoking Status: Current every day smoker alcohol intake: current substance use type: does not use additional social history: He currently resides in He currently resides in [facility]. tobacco type: cigarettes alcohol intake frequency: a few times a week Substance Use Type: does not use Exam <Lara MerrillANTHONYP-BC - Last Filed: 02/20/19 20:45> Narrative Exam Narrative: GENERAL: This is a well-nourished, well-developed patient, in no acute distress HEAD: Atraumatic. Normocephalic. No temporal or scalp tenderness. EYES: Pupils equal round and reactive. Extraocular motions intact. No scleral icterus. No injection or drainage. ENT: Nose without bleeding, purulent drainage or septal hematoma. Throat without erythema, tonsillar hypertrophy or exudate. Uvula midline. Airway patent. NECK: Trachea midline. No JVD or lymphadenopathy. Supple, nontender, no meningeal signs. CARDIOVASCULAR: Regular rate and rhythm without murmurs, gallops, or rubs. RESPIRATORY: Clear to auscultation. Breath sounds equal bilaterally. No wheezes, rales, or rhonchi. No cough. No increased respiratory effort. No accessory muscle use. GASTROINTESTINAL: Abdomen soft, non-tender, nondistended. No hepato-splenomegaly, or palpable masses. No guarding. EXTREMITIES: No clubbing, cyanosis, or edema. No joint tenderness, effusion, or edema noted. BACK: Nontender without deformity or crepitance. No flank tenderness. No pain to CT or L-spine palpation. NEURO: AOx3. Speaking clearly. Using all extremities. SKIN: 3 cm abrasion noted superior to right eye no other visible abrasions lacerations noted on visible skin. Initial Vital Signs Initial Vital Signs: Vital Signs Temperature 99.0 F 02/20/19 16:29 Pulse Rate 103 H 02/20/19 16:29 Respiratory Rate 20 02/20/19 16:29 Blood Pressure 168/120 H 02/20/19 16:29 Pulse Oximetry 98 02/20/19 16:29 <Taye Lund DO - Last Filed: 02/23/19 06:58> Initial Vital Signs Initial Vital Signs: Vital Signs Temperature 99.0 F 02/20/19 16:29 Pulse Rate 103 H 02/20/19 16:29 Respiratory Rate 20 10/21/19 16:29 Blood Pressure 168/120 H 02/20/19 16:29 Pulse Oximetry 98 02/20/19 16:29 Scores <BLAS Wong - Last Filed: 02/20/19 20:45> GCS Jr coma scale eye opening: Spontaneous Jr coma scale verbal response: Orientated Jr coma scale motor response: Obey commands [place] coma scale total score: 15 Nexus Score for C-Spine Focal Neurologic deficit present: No Midline spinal tenderness present: No Altered level of conciousness present: No Intoxication present: No Distracting Injury Present: No Nexus Criteria for C-spine: 0 Course <BLAS Wong - Last Filed: 02/20/19 20:45> Orders Ordered: Discontinued Medications Acetaminophen (Tylenol) 650 mg PO NOW ONE Stop: 02/20/19 17:28 Last Admin: 02/20/19 17:34 Dose: 650 mg Documented by: ABDIAZIZ Diphtheria/Tetanus/Acell Pertussis (Adacel) 0.5 ml IM .ONCE ONE Stop: 02/20/19 16:33 Last Admin: 02/20/19 17:33 Dose: 0.5 ml Documented by: ABDIAZIZ Vital Signs Vital signs: Vital Signs - 8 hr 02/20/19 16:29 02/20/19 16:45 02/20/19 17:00 Temperature 99.0 F Pulse Rate 103 H 95 H 91 H Respiratory Rate 20 18 18 Blood Pressure 168/120 H Blood Pressure [Left Arm] 179/79 H 160/65 H Pulse Oximetry 98 98 97 02/20/19 17:30 Temperature 98.1 F Pulse Rate 84 Respiratory Rate 18 Blood Pressure Blood Pressure [Left Arm] 164/100 H Pulse Oximetry 98 <Taye Lund DO - Last Filed: 02/23/19 06:58> Orders Ordered: Discontinued Medications Acetaminophen (Tylenol) 650 mg PO NOW ONE Stop: 02/20/19 17:28 Last Admin: 02/20/19 17:34 Dose: 650 mg Documented by: ABDIAZIZ Diphtheria/Tetanus/Acell Pertussis (Adacel) 0.5 ml IM .ONCE ONE Stop: 02/20/19 16:33 Last Admin: 02/20/19 17:33 Dose: 0.5 ml Documented by: ABDIAZIZ Vital Signs Vital signs: Vital Signs - 8 hr 02/20/19 16:29 02/20/19 16:45 02/20/19 17:00 Temperature 99.0 F Pulse Rate 103 H 95 H 91 H Respiratory Rate 20 18 18 Blood Pressure 168/120 H Blood Pressure [Left Arm] 179/79 H 160/65 H Pulse Oximetry 98 98 97 02/20/19 17:30 Temperature 98.1 F Pulse Rate 84 Respiratory Rate 18 Blood Pressure Blood Pressure [Left Arm] 164/100 H Pulse Oximetry 98 MDM - Fall <Lara Merrill, ALEXANDRE-BC - Last Filed: 02/20/19 20:45> Lab Data Result diagrams: 02/20/19 16:48 02/20/19 16:48 Labs: Lab Results 02/20/19 02/20/19 02/20/19 Range/Units 16:48 16:48 16:48 WBC 14.3 H (4.5-11.0) X10^3/uL RBC 4.19 L (4.5-5.9) X10^6/uL Hgb 12.4 L (13.5-17.5) g/dL Hct 37.1 L (41-53) % MCV 88.6 (80-100) fL MCH 29.6 (26-34) PG MCHC 33.4 (30-36) % RDW 14.5 (11.6-14.8) % Plt Count 369 (150-400) X10^3/uL Neut % (Auto) 74.6 (50-75) % Lymph % (Auto) 13.1 L (25-40) % [place] % (Auto) 9.0 (3-14) % Eos % (Auto) 2.5 (2-4) % Baso % (Auto) 0.8 (0-2) % Neut # (Auto) 65499 H (5575-0675) /uL Lymph # (Auto) 1900 (5239-3092) /uL [place] # (Auto) 1300 H (0-900) /uL Eos # (Auto) 400 (0-450) /uL Baso # (Auto) 100 (0-100) /uL PT (10.1-12.7) SECONDS INR (0.9-1.3) APTT 32 D (26.4-36.2) SECONDS Sodium 142 (137-145) mmol/L Potassium 4.0 (3.4-5.1) mmol/L Chloride 102 (98-107) mmol/L Carbon Dioxide 31 (22-32) mmol/L BUN 42 H (9-20) mg/dL Creatinine 1.70 H (0.66-1.25) mg/dL Estimated GFR 41.0 L (>60) mL/min BUN/Creatinine Ratio 24.7 H (6-22) Glucose 142 H (80-110) mg/dL Calcium 9.7 (8.4-10.2) mg/dL Total Bilirubin 0.3 (0.2-1.3) mg/dL AST 31 (17-59) IU/L ALT 34 (21-72) IU/L Alkaline Phosphatase 129 H (38-126) U/L Total Protein 7.7 (6.3-8.2) g/dL Albumin 4.4 (3.5-5.0) g/dL Globulin 3.3 (1.7-4.1) g/dL Albumin/Globulin Ratio 1.3 (1.0-2.8) 02/20/19 Range/Units 16:48 WBC (4.5-11.0) X10^3/uL RBC (4.5-5.9) X10^6/uL Hgb (13.5-17.5) g/dL Hct (41-53) % MCV (80-100) fL MCH (26-34) PG MCHC (30-36) % RDW (11.6-14.8) % Plt Count (150-400) X10^3/uL Neut % (Auto) (50-75) % Lymph % (Auto) (25-40) % [place] % (Auto) (3-14) % Eos % (Auto) (2-4) % Baso % (Auto) (0-2) % Neut # (Auto) (7216-9042) /uL Lymph # (Auto) (0993-4371) /uL [place] # (Auto) (0-900) /uL Eos # (Auto) (0-450) /uL Baso # (Auto) (0-100) /uL PT 11.2 (10.1-12.7) SECONDS INR 1.0 (0.9-1.3) APTT (26.4-36.2) SECONDS Sodium (137-145) mmol/L Potassium (3.4-5.1) mmol/L Chloride (98-107) mmol/L Carbon Dioxide (22-32) mmol/L BUN (9-20) mg/dL Creatinine (0.66-1.25) mg/dL Estimated GFR (>60) mL/min BUN/Creatinine Ratio (6-22) Glucose (80-110) mg/dL Calcium (8.4-10.2) mg/dL Total Bilirubin (0.2-1.3) mg/dL AST (17-59) IU/L ALT (21-72) IU/L Alkaline Phosphatase (38-126) U/L Total Protein (6.3-8.2) g/dL Albumin (3.5-5.0) g/dL Globulin (1.7-4.1) g/dL Albumin/Globulin Ratio (1.0-2.8) Imaging Data CT scan - head: Radiologist's impression: [place] [address] CT Scan Report Signed Patient: Ray Foster [facility]#: [id number] : 6Acct:[id number] Age/Sex: 63 / MDate of Service: 02/20/19 Loc: ED Accession Number: [id number] Procedure: CT head/brain wo con [facility]ing [facility] CT HEAD/BRAIN WO CON INDICATIONS: glf, hit head on plavix TECHNIQUE: Noncontrast 4.5 mm thick angled axial sections acquired from the foramen magnum to the vertex, with coronal and sagittal reformats. For radiation dose reduction, the following was used: automated exposure control, adjustment of mA and/or kV according to patient size. COMPARISON: [facility], CT, HEAD WITHOUT CONTRAST, 07/24/2017, 9:43. [facility], CT, CT HEAD/BRAIN WO CON, 08/13/2018, 21:08. FINDINGS: Image quality: Excellent. CSF spaces: Basal cisterns are patent. No extra-axial fluid collections. The ventricles are unchanged symmetric in size and shape. There is mild cerebral volume loss, with resultant ventricular and sulcal prominence. Brain: No intracranial hemorrhage, mass, or mass effect. There are subcortical, periventricular and deep white matter hypodensities consistent with mild to moderate chronic small vessel ischemic changes. There are curvilinear hypodensities within the left thalamus and posterior horn of the left internal capsule redemonstrated. There is intracranial internal carotid artery atherosclerosis. Skull and face: Calvarium and visualized facial bones are intact, without suspicious lesions. Sinuses: Visualized sinuses and mastoids are clear. IMPRESSION: 1. No acute intracranial abnormality. 2. Mild to moderate chronic white matter small vessel ischemic changes and mild cerebral white loss. 3. Hypodensities in the left caudate and posterior horn of the left internal capsule redemonstrated. The findings are nonspecific but suggestive of a prior lacunar infarct and are unchanged compared to the prior studies. Dictated by: Artemio Vaz M.D. on 02/20/2019 at 16:47 Approved by: Artemio Vaz M.D. on 02/20/2019 at 16:[address]: Radiologist's impression: Ray Foster 63 M 1955 [place] [address] CT Scan Report Signed Patient: Ray Foster DMR#: [id number] : 1955cct:[id number] Age/Sex: 63 / MDate of Service: 02/20/19 Loc: ED Accession Number: [id number] Procedure: CT facial bones wo con [facility]ing [facility]: CT FACIAL BONES WO CON INDICATIONS: pain status post glf TECHNIQUE: Noncontrast 2.5 mm thick axial images acquired from the mandible through the frontal sinuses, with coronal and sagittal reformatting. For radiation dose reduction, the following was used: automated exposure control, adjustment of mA and/or kV according to patient size. COMPARISON: [facility], CT, CT HEAD/BRAIN WO CON, 08/13/2018, 21:08. [facility], CT, CT HEAD/BRAIN WO CON, 02/20/2019, 16:35. FINDINGS: Image quality: Diagnostic, with note made of motion artifact. Bones and teeth: Orbital holliday are intact. Sinus holliday show no fracture or deformity. Nasal bones and septum are intact. Visualized portions of the mandible demonstrate no fractures or subluxation. Zygomatic arches are intact. Pterygoid plates are intact. Visualized portions of the skull base and auditory canals are intact. Sinuses: Paranasal sinuses are aerated, without fluid levels, mucosal thickening, or mucoceles. Mastoid air cells are aerated. Soft tissues: No edema, masses, or fluid collections. No enlarged lymph nodes. No soft tissue lacerations or debris. Vascular: Visualized vascular structures appear normal in the absence of contrast. Bony vascular foramina and canals are intact. IMPRESSION: No displaced facial bone fractures are seen. Dictated by: Bryan Her M.D. on 02/20/2019 at 16:05 Approved by: Bryan Her M.D. on 02/20/2019 at 16:08 [facility] Narrative Medical decision making narrative: The patient is a 63-year-old male who presents with a chief complaint of hitting his head on blood thinners yesterday when he fell out of his wheelchair. He had no loss of consciousness. He is GCS 15 on exam. A modified trauma was activated on the patient given his mechanism of injury and the fact they takes Plavix. His scans came back negative for any acute process. His tetanus was updated. The patient declined any further evaluation, stated he wanted to leave. He is GCS 15 in the emergency department, so he has decision making capacity. I did discussed with him that his kidney labs are a bit decreased from his previous lab work and encouraged follow-up with PCP, however the patient declined any further evaluation in the emergency department. Patient has no questions or concerns upon discharge. I did discussed coming back to the emergency department for any acute concerns. <Taye Lund, - Last Filed: 02/23/19 06:58> Lab Data Labs: Lab Results 02/20/19 02/20/19 02/20/19 Range/Units 16:48 16:48 16:48 WBC 14.3 H (4.5-11.0) X10^3/uL RBC 4.19 L (4.5-5.9) X10^6/uL Hgb 12.4 L (13.5-17.5) g/dL Hct 37.1 L (41-53) % MCV 88.6 (80-100) fL MCH 29.6 (26-34) PG MCHC 33.4 (30-36) % RDW 14.5 (11.6-14.8) % Plt Count 369 (150-400) X10^3/uL Neut % (Auto) 74.6 (50-75) % Lymph % (Auto) 13.1 L (25-40) % [place] % (Auto) 9.0 (3-14) % Eos % (Auto) 2.5 (2-4) % Baso % (Auto) 0.8 (0-2) % Neut # (Auto) 26237 H (6442-9066) /uL Lymph # (Auto) 1900 (8831-3955) /uL [place] # (Auto) 1300 H (0-900) /uL Eos # (Auto) 400 (0-450) /uL Baso # (Auto) 100 (0-100) /uL PT (10.1-12.7) SECONDS INR (0.9-1.3) APTT 32 D (26.4-36.2) SECONDS Sodium 142 (137-145) mmol/L Potassium 4.0 (3.4-5.1) mmol/L Chloride 102 (98-107) mmol/L Carbon Dioxide 31 (22-32) mmol/L BUN 42 H (9-20) mg/dL Creatinine 1.70 H (0.66-1.25) mg/dL Estimated GFR 41.0 L (>60) mL/min BUN/Creatinine Ratio 24.7 H (6-22) Glucose 142 H (80-110) mg/dL Calcium 9.7 (8.4-10.2) mg/dL Total Bilirubin 0.3 (0.2-1.3) mg/dL AST 31 (17-59) IU/L ALT 34 (21-72) IU/L Alkaline Phosphatase 129 H (38-126) U/L Total Protein 7.7 (6.3-8.2) g/dL Albumin 4.4 (3.5-5.0) g/dL Globulin 3.3 (1.7-4.1) g/dL Albumin/Globulin Ratio 1.3 (1.0-2.8) 02/20/19 Range/Units 16:48 WBC (4.5-11.0) X10^3/uL RBC (4.5-5.9) X10^6/uL Hgb (13.5-17.5) g/dL Hct (41-53) % MCV (80-100) fL MCH (26-34) PG MCHC (30-36) % RDW (11.6-14.8) % Plt Count (150-400) X10^3/uL Neut % (Auto) (50-75) % Lymph % (Auto) (25-40) % [place] % (Auto) (3-14) % Eos % (Auto) (2-4) % Baso % (Auto) (0-2) % Neut # (Auto) (4166-0639) /uL Lymph # (Auto) (5264-8074) /uL [place] # (Auto) (0-900) /uL Eos # (Auto) (0-450) /uL Baso # (Auto) (0-100) /uL PT 11.2 (10.1-12.7) SECONDS INR 1.0 (0.9-1.3) APTT (26.4-36.2) SECONDS Sodium (137-145) mmol/L Potassium (3.4-5.1) mmol/L Chloride (98-107) mmol/L Carbon Dioxide (22-32) mmol/L BUN (9-20) mg/dL Creatinine (0.66-1.25) mg/dL Estimated GFR (>60) mL/min BUN/Creatinine Ratio (6-22) Glucose (80-110) mg/dL Calcium (8.4-10.2) mg/dL Total Bilirubin (0.2-1.3) mg/dL AST (17-59) IU/L ALT (21-72) IU/L Alkaline Phosphatase (38-126) U/L Total Protein (6.3-8.2) g/dL Albumin (3.5-5.0) g/dL Globulin (1.7-4.1) g/dL Albumin/Globulin Ratio (1.0-2.8) Discharge Plan Departure Patient Disposition: Home Clinical Impression: Fall from ground level, Abrasion Discharge Date/Time: 02/20/19 17:51 Instructions: Exercises to Help Prevent Falls, How to Prevent Falls, DI for Abrasion Activity Restrictions/Additional Instructions: Today we checked your head and her face as he fell out of her wheelchair yesterday on a blood thinner. The scans came back with no acute findings. We also did lab work, which came back normal for you. However as I discussed your kidney function is slightly worse than before, he states this happens. I encouraged her to follow up with primary care provider regarding this. Please follow up with primary care provider in the next few days. Please come back to emergency department for any acute concerns such as chest pain, shortness of breath etc Prescriptions: No Action atorvastatin 80 MG tablet 80 mg PO BEDTIME Qty: 0 RF: 0 clopidogrel 75 MG tablet 75 mg PO DAILY Qty: 0 RF: 0 levothyroxine 50 MCG tablet 50 mcg PO QAM Qty: 0 RF: 0 metoprolol succinate [Toprol XL] 25 MG tablet extended release 24 hr 12.5 mg PO DAILY Qty: 0 RF: 0 polyethylene glycol 3350 [Miralax] 17 GM powder in packet 17 gm PO DAILY Qty: 0 RF: 0 sennosides [senna] 8.6 MG tablet 2 tab PO DAILY Qty: 0 RF: 0 acetaminophen 325 MG tablet 2 tab PO Q4HP PRN (Reason: Pain (Scale Score 1-3)) Qty: 0 RF: 0 omeprazole 20 MG capsule,delayed release(DR/EC) 40 mg PO [id number] Qty: 0 RF: 0 bisacodyl 10 MG suppository 10 mg MS PRN PRN (Reason: Constipation) Qty: 0 RF: 0 bisacodyl [Fleet Laxative] 5 MG tablet,delayed release (DR/EC) 5 mg PO PRN PRN (Reason: Constipation) Qty: 0 RF: 0 Maalox Maximum Strength 355 ML suspension 30 ml PO PRN PRN (Reason: Acid Reflux) Qty: 0 RF: 0 magnesium hydroxide [Milk of Magnesia] 400 mg/5 mL Suspension 30 ml PO DAILY PRN (Reason: Constipation) RF: 0 docusate sodium 100 mg Capsule 2 tab PO BID RF: 0 aspirin 325 mg Tablet,Delayed Release (Dr/Ec) 325 mg PO DAILY RF: 0 furosemide 40 mg tablet 40 mg PO DAILY RF: 0 calcium carbonate 600 mg calcium (1,500 mg) Tablet 1,200 mg PO DAILY RF: 0 vitamin B complex [B Complex-Vitamin B12] Tablet 1 tab PO DAILY RF: 0 mirtazapine 15 mg Tablet 22.5 mg PO QPM RF: 0 fluticasone propionate 50 mcg/actuation [place],Suspension 1 spray INTRANASAL DAILY RF: 0 cholecalciferol (vitamin D3) 1,000 unit Capsule 1,000 unit PO DAILY RF: 0 ascorbic acid (vitamin C) 500 mg Capsule 500 mg PO DAILY RF: 0 hydroxyzine pamoate 25 mg Capsule 1 - 2 tab PO Q6H PRN (Reason: Spasms) RF: 0 insulin glargine 100 unit/mL (3 mL) Insulin Pen 8 unit SUBCUT BID RF: 0 ondansetron 4 mg Tablet,Disintegrating 4 mg PO Q4H PRN (Reason: Nausea) RF: 0 bisacodyl 5 mg Tablet 2 tab PO BEDTIME PRN (Reason: Constipation) RF: 0 ammonium lactate 12 % Lotion 1 applic TOPICAL BID RF: 0 guaifenesin [Mucinex] 600 mg Tablet Extended Release 12hr 600 mg PO Q12H RF: 0 cetirizine 10 mg Tablet 10 mg PO DAILY PRN (Reason: allergies) RF: 0 sodium chloride [Saline Mist] 0.65 % Aerosol,[place] 2 spray INTRANASAL QID PRN (Reason: Congestion) RF: 0 amoxicillin-pot clavulanate [Augmentin] 875-125 mg Tablet 1 tab PO BID Qty: 7 RF: 0 clonazepam 0.5 mg tablet 0.5 mg PO TID PRN (Reason: Anxiety) Qty: 10 RF: 0 oxycodone 10 mg Tablet 3 tab PO Q4H PRN (Reason: Pain (Scale Score 1-3)) Qty: 10 RF: 0 dextromethorphan HBr 30 mg/5 mL liquid 60 mg PO BID RF: 0 insulin aspart U-100 [Novolog Flexpen U-100 Insulin] 100 unit/mL insulin pen 100 unit SUBCUT QID RF: 0 baclofen 10 mg tablet 10 mg PO TID RF: 0 ibuprofen 400 mg tablet 400 mg PO Q4H PRN (Reason: Pain (Scale Score 1-3)) RF: 0 nystatin 100,000 unit/gram powder 1 applictn TOP Q12H PRN (Reason: yeast) RF: 0 artifi.tears(hypromellose)(PF) 0.3 % drops 2 ea EYE-BOTH .q12 PRN (Reason: Dry Eye(S)) RF: 0 Referrals: Linda Denise MD [Primary Care Provider] - <Taye Lund DO - Last Filed: 02/23/19 06:58> Sign Out Provider Sign Out Attestation: I was available for consultation during this patient's emergency department visit. This chart is signed by myself for administrative purposes only. I did not have direct contact with this patient during this visit. They were seen independently by the APC.
== END 2019-02-20 17:51 | disposition home or self-care (01) ==
PROVIDERS: Emergency Provider Nurse Practitioner Family; Family Provider Nurse Practitioner Family; PCP Internal Medicine
DX: S00.81XA Abrasion of other part of head, initial encounter (principal); Z23 Encounter for immunization; W18.30XA Fall on same level, unspecified, initial encounter; E10.621 Type 1 diabetes mellitus with foot ulcer; L97.518 Non-pressure chronic ulcer of other part of right foot with other specified severity; E10.51 Type 1 diabetes mellitus with diabetic peripheral angiopathy without gangrene
CPT/HCPCS: 15275; 36415; 70450; 70486; 80053; 85025; 85610; 85730; 90471; 99283; 99284; 90715; Q4196

== ENCOUNTER → 2019-02-27 15:29 | Outpatient (CLI) | payer MEDICARE, MEDICAID, SELFPAY ==
[2019-01-26 01:30] VITALS: BMI 26.0
== END ==
PROVIDERS: Family Provider Nurse Practitioner Family; PCP Internal Medicine; Visit Provider Podiatrist Primary Podiatric Medicine
DX: E10.621 Type 1 diabetes mellitus with foot ulcer (principal); E10.51 Type 1 diabetes mellitus with diabetic peripheral angiopathy without gangrene; L97.519 Non-pressure chronic ulcer of other part of right foot with unspecified severity
CPT/HCPCS: 15275; Q4196

== ENCOUNTER → 2019-02-28 08:01 | Outpatient (ROUT) | payer MEDICARE, MEDICAID, SELFPAY ==
[2019-01-26 01:30] VITALS: BMI 26.0
[2019-02-28 09:09] LABS: Add Manual Diff / Slide Review NO; Basophils Absolute Auto 100 /uL (0-100); Basophils Percent Auto 0.6 % (0-2); Eosinophils Absolute Auto 1000 /uL (0-450); Hematocrit 33.1 % (41-53); Hemoglobin 11.3 g/dL (13.5-17.5); Lymphocytes Absolute Auto 2900 /uL (1100-4500); Lymphocytes Percent Auto 23.8 % (25-40); Mean Corpuscular HGB Conc 34.3 % (30-36); Mean Corpuscular Hemoglobin 30.2 PG (26-34); Mean Corpuscular Volume 88.1 fL (80-100); Monocytes Absolute Auto 700 /uL (0-900); Monocytes Percent Auto 6.1 % (3-14); Neutrophils Absolute Auto 7500 /uL (1500-7000); Neutrophils Percent Auto 61.5 % (50-75); Platelet Count 299 X10^3/uL (150-400); Red Blood Cell Count 3.76 X10^6/uL (4.5-5.9); Red Cell Distribution Width 14.3 % (11.6-14.8); White Blood Cell Count 12.2 X10^3/uL (4.5-11.0)
[2019-02-28 09:27] LABS: Blood Urea Nitrogen 23 mg/dL (9-20); Calcium 9.2 mg/dL (8.4-10.2); Carbon Dioxide 33 mmol/L (22-32); Chloride 101 mmol/L (98-107); Estimated Glomerular Filt Rate > 60.0 mL/min (>60); Glucose 343 mg/dL (80-110); HEMOLYSIS < 15 (0-50); Potassium 4.4 mmol/L (3.4-5.1); Sodium 138 mmol/L (137-145)
== END ==
PROVIDERS: Family Provider Nurse Practitioner Family; PCP Internal Medicine; Visit Provider Nurse Practitioner Family
DX: N17.9 Acute kidney failure, unspecified (principal)
CPT/HCPCS: 36415; 80048; 85025

== ENCOUNTER 2019-03-02 10:25 | Inpatient (IN) | payer MEDICARE, MEDICAID, SELFPAY ==
[2019-01-26 01:30] VITALS: BMI 26.0
[2019-03-02] VITALS (15 sets, daily range): BP systolic 113–173; BP diastolic 52–88; PULSE 13–114; RESP 10–30; TEMP 37.1–38.3; O2SAT 94–107; BMI 27.4
--- NOTE | 2019-03-02 10:29 | ED_ITS ---
HPI - Fever General Chief Complaint: Fever Stated Complaint: lethargic, temp, Time Seen by Provider: 03/02/19 10:29 Source: patient Mode of arrival: EMS Limitations: altered mental status History of Present Illness HPI Narrative: The patient resides at a local care facility. He has history of diabetes, quadriplegia from a cervical injury and history of stroke. He has had no recent illness, he has been his normal self. He was noted to have fever this morning up to 102? by his nurse. He has no history of lung disease, he has had a cough. There is concern about aspiration. He is diabetic. He did receive re gular medications this morning, but had initial glucose greater than 400 at the scene. Or intake has been normal for him. He has had normal urine output. The patient communicates with brief responses, and obeys be simple commands. He is well known by nurses here as alert, communicates effectively. In our interaction he has no headache, or ENT complaints. He indicates no chest pain. He indicates no abdominal pain. He has no back pain. Conversations otherwise limited by the patient's medical condition. Related Data Home Medications Medication Instructions Recorded Confirmed Maalox Maximum Strength 30 ml PO Q4H PRN #0 06/29/17 03/02/19 acetaminophen 650 mg PO Q4HP PRN #0 06/29/17 03/02/19 atorvastatin 80 mg PO BEDTIME #0 06/29/17 03/02/19 bisacodyl 10 mg OH PRN PRN #0 06/29/17 03/02/19 bisacodyl [Fleet Laxative] 10 mg PO PRN PRN #0 06/29/17 03/02/19 clopidogrel 75 mg PO DAILY #0 06/29/17 03/02/19 levothyroxine 50 mcg PO QAM #0 06/29/17 03/02/19 metoprolol succinate [Toprol XL] 12.5 mg PO DAILY #0 06/29/17 03/02/19 omeprazole 20 mg PO DAILY #0 06/29/17 03/02/19 sennosides [senna] 17.2 mg PO DAILY #0 06/29/17 03/02/19 artifi.tears(hypromellose)(PF) 0.3 2 ea EYE-BOTH BID ml 11/25/17 03/02/19 % eye drops baclofen 10 mg tablet 10 mg PO TID 11/25/17 03/02/19 insulin aspart U-100 100 unit/mL 100 unit SUBCUT QID 11/25/17 03/02/19 (3 mL) subcutaneous pen docusate sodium 2 tab PO BID 03/05/18 03/02/19 magnesium hydroxide [Milk of 30 ml PO DAILY PRN 03/05/18 03/02/19 Magnesia] ammonium lactate 1 applic TOPICAL BID PRN 08/13/18 03/02/19 calcium carbonate 1,200 mg PO QPM 08/13/18 03/02/19 cholecalciferol (vitamin D3) 1,000 unit PO DAILY 08/13/18 03/02/19 fluticasone propionate 1 spray INTRANASAL BID 08/13/18 03/02/19 guaifenesin [Mucinex] 600 mg PO Q12H 08/13/18 03/02/19 hydroxyzine pamoate 50 tab PO Q6H PRN 08/13/18 03/02/19 insulin glargine 8 unit SUBCUT BID 08/13/18 03/02/19 mirtazapine 22.5 mg PO QPM 08/13/18 03/02/19 ondansetron 4 mg PO Q4H PRN 08/13/18 03/02/19 vitamin B complex [B 1 tab PO DAILY 08/13/18 03/02/19 Complex-Vitamin B12] cetirizine 10 mg PO DAILY PRN 01/25/19 03/02/19 sodium chloride [Saline Mist] 1 spray INTRANASAL Q6H PRN 01/25/19 03/02/19 aspirin 325 mg PO DAILY 02/20/19 03/02/19 furosemide 40 mg PO DAILY 02/20/19 03/02/19 clonazepam 0.75 mg PO Q6H PRN 03/02/19 03/02/19 dextromethorphan polistirex 10 ml PO Q12H PRN 03/02/19 03/02/19 [Delsym 12 hour] duloxetine 60 mg PO BEDTIME 03/02/19 03/02/19 glucagon (human recombinant) 1 mg IM PRN PRN MDD ` 03/02/19 03/02/19 [Glucagon Emergency Kit (human)] nystatin 1 applic TOPICAL BID PRN 03/02/19 03/02/19 oxycodone 30 mg PO Q4H PRN 03/02/19 03/02/19 Allergies Allergy/AdvReac Type Severity Reaction Status Date / Time codeine [CODEINE] AdvReac Unknown nausea Verified 01/25/19 20:27 Review of Systems Review of Systems Narrative: Please review HPI. ROS was addressed in the history, but otherwise limited due to his current clinical condition. Patient History Medical History C3 spinal cord injury (Acute) C4 spinal cord injury (Acute) CVA (cerebral vascular accident) (Acute) Diabetes (Acute) Gastroesophageal reflux disease (Acute) Hyperlipidemia (Acute) Hypertension (Acute) Surgical History History of carotid endarterectomy (Acute) History of coronary artery stent placement (Acute) No pertinent past surgical history (Acute) Family History Mother Cancer Father Lung disease Hyperlipidemia Brother Lupus Social History household members: caregiver Smoking Status: Current every day smoker alcohol intake: current substance use type: does not use additional social history: He currently resides in He currently resides in [facility]. tobacco type: cigarettes alcohol intake frequency: a few times a week Substance Use Type: does not use Exam Initial Vital Signs Initial Vital Signs: Vital Signs Temperature 100.0 F H 03/02/19 10:25 Pulse Rate 106 H 03/02/19 10:25 Respiratory Rate 17 03/02/19 10:25 Blood Pressure 135/88 03/02/19 10:25 Pulse Oximetry 97 03/02/19 10:25 Const General: diaphoretic, ill appearing and lethargic Nutritional Appearance: well nourished Limitations: altered mental status (tethargic with slow, brief responses.) HENAK Head: normocephalic and atraumatic Ears: external ears normal and TM's normal bilaterally Nose: external nose normal and No nasal discharge Face and sinus: face symmetric Mouth: oral mucosae normal Throat: tonsils normal and uvula midline Eyes General: appearance normal, both eyes and all related structures Eyelids: eyelids normal Conjunctivae: conjunctivae normal Sclera: sclerae normal Pupils: PERRL and pupil size bilaterally 5 EOM: EOM intact bilaterally Neck Neck: no meningeal signs Chest Chest: normal inspection of the chest Resp Effort & Inspection: normal respiratory effort, able to speak in complete sentences, no respiratory distress and no use of accessory muscles Auscultation: clear to auscultation bilaterally, no rales, no rhonchi and no wheezes Cardio Rate: tachycardic Rhythm: regular rhythm Heart Sounds: no click, no gallops, no murmurs and no rubs Pulses: normal peripheral pulses GI Inspection: non-distended Palpation: soft, No guarding and No tender Auscultation: normal bowel sounds Back/Spine/Pelvis Back: No back tenderness, No CVA tenderness and No erythema Other: No evidence of cellulitis. No evidence of decubitus ulcer. Skin General: No jaundice Other: Multiple minor skin lesions on both lower extremities. Erythema with warmth and slight edema to the right dorsal foot, and the right lower extremity up to about the mid calf. There is a bandage to the right great toe, but after removal there is no significant erythema, edema or purulence. Dorsalis pedis pulses are decreased but present bilaterally. Neuro General: obtunded and other (He can respond to questions, but answers are slow and brief.) Cranial Nerves: CN's II-XI intact bilaterally and gag reflex normal Speech: other (Muffled but accurate.) Motor: other (Bilateral upper extremity weakness. Bilateral lower extremity paralysis.) Extrem Other: Right leg cellulitis is noted in HPI. Course Course Course Narrative: From the initial assessment the concern was sepsis. Initial evaluation suggested the right leg as a source. Chest x-ray was normal. Right leg x-ray revealed no obvious bony source. Labs revealed a DB see of 19,000, but a normal lactic acid level and procalcitonin were reassuring. He was initially tachycardic and febrile with mental status changes. After IV hydration and a dose of vancomycin he became more conversive, but would quickly fall back to sleep. He remains afebrile, the tachycardia has increased from 108-116. His blood pressure remains stable. The right leg seems to be the source infection, but concern for sepsis remains. A 2nd L of IV fluids were given. A 2nd lactic acid levels ordered. I consulted with the hospitalist, Dr. Coats, regarding admission. She agreed with my concern for sepsis and with a 2nd antibiotic. The patient will be admitted to the hospitalist. Orders Ordered: ED Orders 03/02/19 10:40 Complete Blood Count AUTO DIFF Stat Lactate (Lactic Acid) Stat 03/02/19 10:46 XR chest 1V Stat RT Consult Eval and Treat Now 03/02/19 10:49 XR foot RT min 3V Stat 03/02/19 10:56 Blood Culture Stat Comprehensive Metabolic Panel Stat Lipase Stat Partial Thromboplastin Time Stat Procalcitonin Stat Prothrombin Time INR Stat 03/02/19 11:23 Urinalysis and Microscopic Stat 03/02/19 11:42 FLU A and B [Influenza A and B by PCR Rapid] Stat 03/02/19 14:55 Lactate (Lactic Acid) Stat Discontinued Medications Hydromorphone HCl (Dilaudid) 1 mg IV NOW ONE Stop: 03/02/19 16:06 Last Admin: 03/02/19 16:11 Dose: 1 mg Documented by: ADBIAZIZ Sodium Chloride (Normal Saline 0.9%) 1,000 mls @ 1,000 mls/hr IV BOLUS ONE Stop: 03/02/19 11:45 Last Infusion: 03/02/19 12:06 Dose: 0 mls/hr Documented by: Admin: 03/02/19 10:53 Dose: 1,000 mls/hr Documented by: ABDIAZIZ Vancomycin HCl 1,250 mg/ (Sodium Chloride) 250 mls @ 250 mls/hr IV NOW ONE Stop: 03/02/19 10:51 Last Infusion: 03/02/19 13:05 Dose: 0 mls/hr Documented by: Admin: 03/02/19 11:24 Dose: 250 mls/hr Documented by: ABDIAZIZ Sodium Chloride (Normal Saline 0.9%) 1,000 mls @ 1,000 mls/hr IV BOLUS ONE Stop: 03/02/19 15:03 Last Infusion: 03/02/19 15:15 Dose: 0 mls/hr Documented by: Admin: 03/02/19 14:15 Dose: 1,000 mls/hr Documented by: ABDIAZIZ Ceftriaxone Sodium/Dextrose (Rocephin) 1 gm in 50 mls @ 100 mls/hr IV NOW ONE Stop: 03/02/19 15:19 Last Infusion: 03/02/19 16:20 Dose: 0 mls/hr Documented by: Admin: 03/02/19 15:48 Dose: 100 mls/hr Documented by: ABDIAZIZ Lactated Ringer's (Lactated Ringers) 1,000 mls @ 1,000 mls/hr IV BOLUS ONE Stop: 03/02/19 16:46 Last Infusion: 03/02/19 17:01 Dose: 150 mls/hr Documented by: Infusion: 03/02/19 16:21 Dose: 150 mls/hr Documented by: Admin: 03/02/19 15:50 Dose: 1,000 mls/hr Documented by: ABDIAZIZ Ketorolac Tromethamine (Toradol) 30 mg IV NOW ONE Stop: 03/02/19 14:34 Last Admin: 03/02/19 14:35 Dose: 30 mg Documented by: ABDIAZIZ Lidocaine HCl (Urojet) 5 ml TOP NOW ONE Stop: 03/02/19 11:00 Last Admin: 03/02/19 11:24 Dose: 5 ml Documented by: ABDIAZIZ Vital Signs Vital signs: Vital Signs - 8 hr 03/02/19 10:25 03/02/19 11:13 03/02/19 11:31 Temperature 100.0 F H Pulse Rate 106 H 104 H 13 L Respiratory Rate 17 16 10 L Blood Pressure 135/88 Blood Pressure [Left Arm] 151/66 H 133/62 Pulse Oximetry 97 97 107 H 03/02/19 12:30 03/02/19 13:00 03/02/19 13:30 Temperature Pulse Rate 114 H 112 H 112 H Respiratory Rate 26 H 11 L 18 Blood Pressure Blood Pressure [Left Arm] 171/74 H 173/72 H 168/73 H Pulse Oximetry 98 96 94 03/02/19 14:02 03/02/19 14:35 03/02/19 14:37 Temperature 100.9 F H 100.9 F H Pulse Rate 112 H 108 H Respiratory Rate 18 30 H Blood Pressure Blood Pressure [Left Arm] 162/70 H 145/62 H Pulse Oximetry 96 94 MDM - Fever Lab Data Attestation: I reviewed the patient's lab results. Result diagrams: 03/02/19 10:40 03/02/19 10:56 Labs: Lab Results 03/02/19 03/02/19 03/02/19 Range/Units 10:40 10:40 10:56 WBC 19.3 H (4.5-11.0) X10^3/uL RBC 3.40 L (4.5-5.9) X10^6/uL Hgb 10.1 L (13.5-17.5) g/dL Hct 29.7 L (41-53) % MCV 87.6 (80-100) fL MCH 29.7 (26-34) PG MCHC 33.9 (30-36) % RDW 14.3 (11.6-14.8) % Plt Count 280 (150-400) X10^3/uL Neut % (Auto) 88.4 H (50-75) % Lymph % (Auto) 4.6 L (25-40) % [place] % (Auto) 5.1 (3-14) % Eos % (Auto) 1.1 L (2-4) % Baso % (Auto) 0.8 (0-2) % Neut # (Auto) 69758 H (4300-2114) /uL Lymph # (Auto) 900 L (4826-1688) /uL [place] # (Auto) 1000 H (0-900) /uL Eos # (Auto) 200 (0-450) /uL Baso # (Auto) 200 H (0-100) /uL PT 12.6 (10.1-12.7) SECONDS INR 1.1 (0.9-1.3) APTT 26 L D (26.4-36.2) SECONDS Sodium (137-145) mmol/L Potassium (3.4-5.1) mmol/L Chloride (98-107) mmol/L Carbon Dioxide (22-32) mmol/L BUN (9-20) mg/dL Creatinine (0.66-1.25) mg/dL Estimated GFR (>60) mL/min BUN/Creatinine Ratio (6-22) Glucose (80-110) mg/dL Lactate 1.0 (0.7-2.1) mmol/L Calcium (8.4-10.2) mg/dL Total Bilirubin (0.2-1.3) mg/dL AST (17-59) IU/L ALT (21-72) IU/L Alkaline Phosphatase (38-126) U/L Total Protein (6.3-8.2) g/dL Albumin (3.5-5.0) g/dL Globulin (1.7-4.1) g/dL Albumin/Globulin Ratio (1.0-2.8) Lipase (23-300) U/L Procalcitonin (<0.5) ng/mL Urine Color Urine Appearance Urine pH (4.5-8.0) Ur Specific [place] (1.000-1.035) Urine Protein (Negative) Urine Glucose (UA) (Negative) g/dL Urine Ketones (NEGATIVE) Urine Occult Blood (Negative) Urine Nitrate (Negative) Urine Bilirubin (NEGATIVE) Urine Urobilinogen (0.2) E.U./dL Ur Leukocyte Esterase (NEGATIVE) Urine RBC (0-5/HPF) Urine WBC (0-5/HPF) Amorphous Sediment Urine Bacteria (None) Ur Culture Indicated? Influenza A & B (PCR) (Negative) 03/02/19 03/02/19 03/02/19 Range/Units 10:56 10:56 11:23 WBC (4.5-11.0) X10^3/uL RBC (4.5-5.9) X10^6/uL Hgb (13.5-17.5) g/dL Hct (41-53) % MCV (80-100) fL MCH (26-34) PG MCHC (30-36) % RDW (11.6-14.8) % Plt Count (150-400) X10^3/uL Neut % (Auto) (50-75) % Lymph % (Auto) (25-40) % [place] % (Auto) (3-14) % Eos % (Auto) (2-4) % Baso % (Auto) (0-2) % Neut # (Auto) (6184-7780) /uL Lymph # (Auto) (2331-2518) /uL [place] # (Auto) (0-900) /uL Eos # (Auto) (0-450) /uL Baso # (Auto) (0-100) /uL PT (10.1-12.7) SECONDS INR (0.9-1.3) APTT (26.4-36.2) SECONDS Sodium 138 (137-145) mmol/L Potassium 4.0 (3.4-5.1) mmol/L Chloride 102 (98-107) mmol/L Carbon Dioxide 32 (22-32) mmol/L BUN 24 H (9-20) mg/dL Creatinine 0.90 (0.66-1.25) mg/dL Estimated GFR > 60.0 (>60) mL/min BUN/Creatinine Ratio 26.7 H (6-22) Glucose 275 H (80-110) mg/dL Lactate (0.7-2.1) mmol/L Calcium 8.4 (8.4-10.2) mg/dL Total Bilirubin 0.4 (0.2-1.3) mg/dL AST 30 (17-59) IU/L ALT 58 (21-72) IU/L Alkaline Phosphatase 146 H (38-126) U/L Total Protein 6.2 L (6.3-8.2) g/dL Albumin 3.5 (3.5-5.0) g/dL Globulin 2.7 (1.7-4.1) g/dL Albumin/Globulin Ratio 1.3 (1.0-2.8) Lipase < 10 L (23-300) U/L Procalcitonin 0.24 (<0.5) ng/mL Urine Color Yellow Urine Appearance Clear Urine pH 7.5 (4.5-8.0) Ur Specific [place] 1.010 (1.000-1.035) Urine Protein Trace H (Negative) Urine Glucose (UA) Trace H (Negative) g/dL Urine Ketones Negative (NEGATIVE) Urine Occult Blood Negative (Negative) Urine Nitrate Negative (Negative) Urine Bilirubin Negative (NEGATIVE) Urine Urobilinogen 0.2 (0.2) E.U./dL Ur Leukocyte Esterase Negative (NEGATIVE) Urine RBC 1-5/hpf (0-5/HPF) Urine WBC 0-1/hpf (0-5/HPF) Amorphous Sediment 1+ Urine Bacteria Few (2-10) H (None) Ur Culture Indicated? Cult not indicated Influenza A & B (PCR) (Negative) 03/02/19 Range/Units 11:42 WBC (4.5-11.0) X10^3/uL RBC (4.5-5.9) X10^6/uL Hgb (13.5-17.5) g/dL Hct (41-53) % MCV (80-100) fL MCH (26-34) PG MCHC (30-36) % RDW (11.6-14.8) % Plt Count (150-400) X10^3/uL Neut % (Auto) (50-75) % Lymph % (Auto) (25-40) % [place] % (Auto) (3-14) % Eos % (Auto) (2-4) % Baso % (Auto) (0-2) % Neut # (Auto) (0842-9344) /uL Lymph # (Auto) (0275-3571) /uL [place] # (Auto) (0-900) /uL Eos # (Auto) (0-450) /uL Baso # (Auto) (0-100) /uL PT (10.1-12.7) SECONDS INR (0.9-1.3) APTT (26.4-36.2) SECONDS Sodium (137-145) mmol/L Potassium (3.4-5.1) mmol/L Chloride (98-107) mmol/L Carbon Dioxide (22-32) mmol/L BUN (9-20) mg/dL Creatinine (0.66-1.25) mg/dL Estimated GFR (>60) mL/min BUN/Creatinine Ratio (6-22) Glucose (80-110) mg/dL Lactate (0.7-2.1) mmol/L Calcium (8.4-10.2) mg/dL Total Bilirubin (0.2-1.3) mg/dL AST (17-59) IU/L ALT (21-72) IU/L Alkaline Phosphatase (38-126) U/L Total Protein (6.3-8.2) g/dL Albumin (3.5-5.0) g/dL Globulin (1.7-4.1) g/dL Albumin/Globulin Ratio (1.0-2.8) Lipase (23-300) U/L Procalcitonin (<0.5) ng/mL Urine Color Urine Appearance Urine pH (4.5-8.0) Ur Specific [place] (1.000-1.035) Urine Protein (Negative) Urine Glucose (UA) (Negative) g/dL Urine Ketones (NEGATIVE) Urine Occult Blood (Negative) Urine Nitrate (Negative) Urine Bilirubin (NEGATIVE) Urine Urobilinogen (0.2) E.U./dL Ur Leukocyte Esterase (NEGATIVE) Urine RBC (0-5/HPF) Urine WBC (0-5/HPF) Amorphous Sediment Urine Bacteria (None) Ur Culture Indicated? Influenza A & B (PCR) Negative (Negative) Point of Care Testing Glucose POC 233 Imaging Data Chest x-ray: Radiologist's impression: [address] [address] XRay Report Signed Patient: Ray Foster [facility]#: [id number] : 1955cct:[id number] Age/Sex: 63 / MDate of Service: 03/02/19 Loc: ED Accession Number: [id number] Procedure: XR chest 1V Ordering Provider: Estuardo Blue MD PROCEDURE: XR CHEST 1V INDICATIONS: suspected sepsis TECHNIQUE: One view of the chest was acquired. COMPARISON: [facility], , XR CHEST 1V, 01/25/2019, 20:54. FINDINGS: Surgical changes and devices: None. Lungs and pleura: Lungs are clear. No pleural effusions or pneumothorax. Mediastinum: Mediastinal contours appear normal. Heart size is normal. Bones and chest wall: No suspicious bony lesions. Overlying soft tissues appear unremarkable. IMPRESSION: No acute cardiopulmonary disease process. Dictated by: Dasha Reed MD, PhD on 03/02/2019 at 11:26 Approved by: Dasha Reed MD, PhD on 03/02/2019 at 11:26 Right foot XR:: Radiologist's impression: Myron Blue MD Find Patient Imaging - Ray Foster Natalie 63 M 1955 ACTIVITY DATE EXAM STATUS AUTHOR 03/02/19 10:49 Signed Dasha Reed 03/02/19 10:46 Signed Dasha Reed [address] [address] XRay Report Signed Patient: Ray Foster [facility]#: [id number] : 1955cct:[id number] Age/Sex: 63 / MDate of Service: 03/02/19 Loc: ED Accession Number: [id number] Procedure: XR foot RT min 3V Ordering Provider: Estuardo Blue MD PROCEDURE: XR FOOT RT MIN 3V INDICATIONS: Cellulitis TECHNIQUE: 3 views of the foot were acquired. COMPARISON: [facility], CR, XR FOOT RT MIN 3V, 11/09/2018, 10:18. FINDINGS: Bones: No fractures or dislocations. No suspicious bony lesions. No rory erosive changes. No periosteal reaction. Soft tissues: No tibiotalar joint effusion. Achilles tendon appears normal. No soft tissue gas. IMPRESSION: No rory evidence of osteomyelitis. Plain film radiographs can be insensitive to osteomyelitis during the initial 15 days of the disease process. If there is clinical concern for osteomyelitis, then three-phase nuclear medicine bone scan should be considered for further evaluation. Dictated by: Dasha Reed MD, PhD on 03/02/2019 at 11:27 Approved by: Dasha Reed MD, PhD on 03/02/2019 at 11:27 ECG Data Attestation: I personally reviewed and interpreted this ECG as follows: (Sinus tachycardia rate 105 beats per minute. Normal intervals. No ectopy. No acute ST T wave changes.) Critical Care Time Critical Care Time Critical Care Time: Yes Total Critical Care Time: 50 Attestation: Critical care time included the initial assessment and repeat assessment of the patient, review of past medical history, review of x-ray and lab data, and clinical decisions. Time included reviewing the clinical information with the patient and consultation with the admitting physician. Discharge Plan Departure Patient Disposition: Admitted As Inpatient Clinical Impression: Cellulitis of leg, right, Acute alteration in mental status Discharge Date/Time: 03/02/19 17:01 Referrals: iLnda Denise MD [Primary Care Provider] - Admit Date/Time: 03/02/19 14:48 Admit Provider: Ghada Coats
--- NOTE | 2019-03-02 10:46 | DI.RAD.S_ITS ---
PROCEDURE: XR CHEST 1V INDICATIONS: suspected sepsis TECHNIQUE: One view of the chest was acquired. COMPARISON: [facility], CR, XR CHEST 1V, 01/25/2019, 20:54. FINDINGS: Surgical changes and devices: None. Lungs and pleura: Lungs are clear. No pleural effusions or pneumothorax. Mediastinum: Mediastinal contours appear normal. Heart size is normal. Bones and chest wall: No suspicious bony lesions. Overlying soft tissues appear unremarkable. IMPRESSION: No acute cardiopulmonary disease process. Dictated by: Dasha Reed MD, PhD on 03/02/2019 at 11:26 Approved by: Dasha Reed MD, PhD on 03/02/2019 at 11:26
--- NOTE | 2019-03-02 10:49 | DI.RAD.S_ITS ---
PROCEDURE: XR FOOT RT MIN 3V INDICATIONS: Cellulitis TECHNIQUE: 3 views of the foot were acquired. COMPARISON: [facility], CR, XR FOOT RT MIN 3V, 11/09/2018, 10:18. FINDINGS: Bones: No fractures or dislocations. No suspicious bony lesions. No rory erosive changes. No periosteal reaction. Soft tissues: No tibiotalar joint effusion. Achilles tendon appears normal. No soft tissue gas. IMPRESSION: No rory evidence of osteomyelitis. Plain film radiographs can be insensitive to osteomyelitis during the initial 15 days of the disease process. If there is clinical concern for osteomyelitis, then three-phase nuclear medicine bone scan should be considered for further evaluation. Dictated by: Dasha Reed MD, PhD on 03/02/2019 at 11:27 Approved by: Dasha Reed MD, PhD on 03/02/2019 at 11:27
[2019-03-02] MEDS: SODIUM CHLORIDE 0.9% 1,000 ML 1000 ML IV ×2 (10:53→14:15)
[2019-03-02 10:55] LABS: Add Manual Diff / Slide Review NO; Basophils Absolute Auto 200 /uL (0-100); Basophils Percent Auto 0.8 % (0-2); Eosinophils Absolute Auto 200 /uL (0-450); Eosinophils Percent Auto 1.1 % (2-4); Hematocrit 29.7 % (41-53); Hemoglobin 10.1 g/dL (13.5-17.5); Lymphocytes Absolute Auto 900 /uL (1100-4500); Lymphocytes Percent Auto 4.6 % (25-40); Mean Corpuscular HGB Conc 33.9 % (30-36); Mean Corpuscular Hemoglobin 29.7 PG (26-34); Mean Corpuscular Volume 87.6 fL (80-100); Monocytes Absolute Auto 1000 /uL (0-900); Monocytes Percent Auto 5.1 % (3-14); Neutrophils Absolute Auto 17100 /uL (1500-7000); Neutrophils Percent Auto 88.4 % (50-75); Platelet Count 280 X10^3/uL (150-400); Red Cell Distribution Width 14.3 % (11.6-14.8); White Blood Cell Count 19.3 X10^3/uL (4.5-11.0)
[2019-03-02 11:06] LABS: INR 1.1 (0.9-1.3); Prothrombin Time 12.6 SECONDS (10.1-12.7)
[2019-03-02 11:08] LABS: PTT Partial Thromboplastin Tim 26 SECONDS (26.4-36.2)
[2019-03-02 11:13] LABS: Alanine Aminotransferase 58 IU/L (21-72); Albumin 3.5 g/dL (3.5-5.0); Albumin Globulin Ratio 1.3 (1.0-2.8); Alkaline Phosphatase 146 U/L (38-126); Aspartate Aminotransferase 30 IU/L (17-59); BUN Creatinine Ratio 26.7 (6-22); Bilirubin Total 0.4 mg/dL (0.2-1.3); Blood Urea Nitrogen 24 mg/dL (9-20); Calcium 8.4 mg/dL (8.4-10.2); Carbon Dioxide 32 mmol/L (22-32); Chloride 102 mmol/L (98-107); Estimated Glomerular Filt Rate > 60.0 mL/min (>60); Globulin 2.7 g/dL (1.7-4.1); Glucose 275 mg/dL (80-110); HEMOLYSIS 29 (0-50); Sodium 138 mmol/L (137-145); Total Protein 6.2 g/dL (6.3-8.2)
[2019-03-02 11:15] LABS: Lipase < 10 U/L (23-300)
[2019-03-02] MEDS: LIDOCAINE 2% (UROJET) 5 ML GEL TOP (11:24)
[2019-03-02] MEDS: VANCOMYCIN 1,250 MG in SODIUM CHLORIDE 0.9% 250 ML IV (11:24)
[2019-03-02 11:31] LABS: Procalcitonin 0.24 ng/mL (<0.5)
[2019-03-02 11:32] LABS: Appearance Urine UA CLEAR; Bilirubin Urine UA NEGATIVE (NEGATIVE); Color Urine UA YELLOW; Glucose Urine UA TRACE g/dL (Negative); Ketones Urine UA NEGATIVE (NEGATIVE); Leukocyte Esterase Urine UA NEGATIVE (NEGATIVE); Nitrite Urine UA NEGATIVE (Negative); Occult Blood Urine UA NEGATIVE (Negative); Protein Urine UA TRACE (Negative); Urobilinogen Urine UA 0.2 E.U./dL (0.2); pH Urine UA 7.5 (4.5-8.0)
[2019-03-02 11:44] LABS: Amorphous Sediment Urine 1+; Bacteria Urine Few (2-10); Culture Indicated Urine Cult Not Indicated; RBC Urine 1-5/HPF (0-5/HPF); WBC Urine 0-1/HPF (0-5/HPF)
--- NOTE | 2019-03-02 11:45 | PC.NURSE ---
Dry brief noted. Right foot / toe wounds noted. Red and warm skin on [place]. noted breakdown on left toes. No exudate noted. Unknown level of functioning / mobility. rolled to side, no wounds noted on back or coccyx.
[2019-03-02 12:00] LABS: Influenza A and B by PCR Rapid Negative (Negative)
--- NOTE | 2019-03-02 12:23 | PC.NURSE ---
Reviewed pt previous record: Pt has h/o quadroplegia but is normally alert, oriented x 4 and participating in care. Usually very anxious to leave department. Current mental status is large departure from baseline. Dr. Blue made aware.
[2019-03-02] MEDS: KETOROLAC 60 MG/2 ML VIAL 30 MG IV (14:35)
[2019-03-02 15:20] LABS: Lactate (Lactic Acid) 0.8 mmol/L (0.7-2.1)
[2019-03-02] MEDS: CEFTRIAXONE 1 GM/50 ML FROZ.PIGGY IV (15:48)
[2019-03-02] MEDS: LACTATED RINGERS 1,000 ML 1000 ML IV (15:50)
[2019-03-02] MEDS: HYDROMORPHONE 0.5 MG INJ 1 MG IV (16:11)
--- NOTE | 2019-03-02 17:58 | PC.NURSE ---
Addendum entered by Tammy Bneoit R.N. 03/02/19 18:00: Due to pt's obtunded state, admission assessment information taken from pt's previous admission dated 01/26/19. Original Note: Pt to room 226 from [facility] Slider board and several staff members to transfer pt from stretcher to bed. Pt does not open eyes, but moans with transfer. Quiet once settled in bed with head of bed slightly elevated. Nonverbal upon admission. Vital signs taken and pt positioned for comfort. BL heels floated on pillows.
[2019-03-02] MEDS: ATORVASTATIN 20 MG TABLET 80 MG PO (23:06)
[2019-03-02] MEDS: DULOXETINE 30 MG CAPSULE 60 MG PO (23:07)
[2019-03-02] MEDS: DOCUSATE 100 MG CAPSULE 200 MG PO (23:07)
[2019-03-02] MEDS: BACLOFEN 10 MG TABLET PO (23:07)
[2019-03-02] MEDS: VANCOMYCIN 1,000 MG/200 ML PIGGYBACK 200 MG IV (23:08)
[2019-03-02] MEDS: INSULIN GLARGINE 100 UNIT/ML 3ML PEN 8 UNIT SUBCUT (23:16)
--- NOTE | 2019-03-02 23:45 | PC.NURSE ---
Admit/Evening Shift Note- Patient arrived to room via stretcher at 1715. Slider board used to transfer patient. Patient lethargic, patient wakes to voice but then falls back to sleep. admission completed, medications reviewed, and physical assessment done. wounds to right lower extremitie noted. Bandaid in place and c/d/i. Safety measures in place. call ware and phone within reach. will continue to monitor.
--- NOTE | 2019-03-02 23:49 | P.HP_ITS ---
History of Present Illness History of Present Illness Date Patient Seen: 03/02/19 Time Patient Seen: 21:40 Chief complaint: lethargic, temp, Narrative: Mr. 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 The patient is a resident at [facility] and has been being treated for cellulitis of the right foot. The patient is lethargic complicating attaining him medical history. At baseline the patient is normally alert and communicative and is found to be lethargic and slow to respond. The patient denies complaints of headaches or dizziness, chest pain and has no shortness of breath and reports no cough. He has no complaints of abdominal pain and denies nausea vomiting. Per report from the prison the patient has been in his normal state of health until spiking a fever today and has rec eived his normal medications. Upon arrival in the emergency department the patient was found to have a low- grade temperature 99.3?, heart rate of 91, blood pressure 134/63, respirations of 20 and oxygen saturation 96%. HX x-ray was obtained which is negative for acute cardiopulmonary findings. An imaging is completed of the right foot which finds no indication of osteomyelitis. On laboratory analysis he has a white count of 19.3, hemoglobin of 10.1, hematocrit 29.7 and platelets 280. His el ectrolytes are within normal limits. His BUN is 24 and creatinine is 0.9. Blood sugar assess the field was over 400 and on laboratory evaluation nonfasting glucose is 275. He does have an elevated alkaline phosphatase of 146. His coagulation studies are with normal range. His initial lactic acid 1.01 after 2 L of IV fluid is down to 0.8, his procalcitonin is 0.24. The patient is admitted for diabetic cellulitis with altered mental status. Patient History Medical History C3 spinal cord injury (Acute) C4 spinal cord injury (Acute) CVA (cerebral vascular accident) (Acute) Diabetes (Acute) Gastroesophageal reflux disease (Acute) Hyperlipidemia (Acute) Hypertension (Acute) Surgical History History of carotid endarterectomy (Acute) History of coronary artery stent placement (Acute) No pertinent past surgical history (Acute) Family & Social History Family History Mother Cancer Father Lung disease Hyperlipidemia Brother Lupus Social History: household members caregiver Prior Living Arrangements Assisted Living Safety & Behavioral: Feels Safe in Current Unwilling to Answer Environment Been Physically Hurt or Unwilling to Answer Threatened By a Person Tobacco & Substance use: Tobacco type cigarettes Smoking Status Current every day smoker alcohol intake current alcohol intake frequency a few times a week Substance Use Type does not use Comment: The patient is a resident at [facility]. Advanced directives: The patient states his desire to be FULL CODE. The patient designates his mother Faviola Foster to be his surrogate decision maker. Meds Home Medications and Allergies Home Medications Medication Instructions Recorded Confirmed Type Maalox Maximum Strength 30 ml PO Q4H PRN #0 06/29/17 03/02/19 History acetaminophen 650 mg PO Q4HP PRN #0 06/29/17 03/02/19 History atorvastatin 80 mg PO BEDTIME #0 06/29/17 03/02/19 History bisacodyl 10 mg ID PRN PRN #0 06/29/17 03/02/19 History bisacodyl [Fleet Laxative] 10 mg PO PRN PRN #0 06/29/17 03/02/19 History clopidogrel 75 mg PO DAILY #0 06/29/17 03/02/19 History levothyroxine 50 mcg PO QAM #0 06/29/17 03/02/19 History metoprolol succinate [Toprol XL] 12.5 mg PO DAILY #0 06/29/17 03/02/19 History omeprazole 20 mg PO DAILY #0 06/29/17 03/02/19 History sennosides [senna] 17.2 mg PO DAILY #0 06/29/17 03/02/19 History artifi.tears(hypromellose)(PF) 0.3 2 ea EYE-BOTH BID ml 11/25/17 03/02/19 History % eye drops baclofen 10 mg tablet 10 mg PO TID 11/25/17 03/02/19 History insulin aspart U-100 100 unit/mL 100 unit SUBCUT QID 11/25/17 03/02/19 History (3 mL) subcutaneous pen docusate sodium 2 tab PO BID 03/05/18 03/02/19 History magnesium hydroxide [Milk of 30 ml PO DAILY PRN 03/05/18 03/02/19 History Magnesia] ammonium lactate 1 applic TOPICAL BID PRN 08/13/18 03/02/19 History calcium carbonate 1,200 mg PO QPM 08/13/18 03/02/19 History cholecalciferol (vitamin D3) 1,000 unit PO DAILY 08/13/18 03/02/19 History fluticasone propionate 1 spray INTRANASAL BID 08/13/18 03/02/19 History guaifenesin [Mucinex] 600 mg PO Q12H 08/13/18 03/02/19 History hydroxyzine pamoate 50 mg PO Q6H PRN 08/13/18 03/02/19 History insulin glargine 8 unit SUBCUT BID 08/13/18 03/02/19 History mirtazapine 22.5 mg PO QPM 08/13/18 03/02/19 History ondansetron 4 mg PO Q4H PRN 08/13/18 03/02/19 History vitamin B complex [B 1 tab PO DAILY 08/13/18 03/02/19 History Complex-Vitamin B12] cetirizine 10 mg PO DAILY PRN 01/25/19 03/02/19 History sodium chloride [Saline Mist] 1 spray INTRANASAL Q6H PRN 01/25/19 03/02/19 History aspirin 325 mg PO DAILY 02/20/19 03/02/19 History furosemide 40 mg PO DAILY 02/20/19 03/02/19 History clonazepam 0.75 mg PO Q6H PRN 03/02/19 03/02/19 History dextromethorphan polistirex 10 ml PO Q12H PRN 03/02/19 03/02/19 History [Delsym 12 hour] duloxetine 60 mg PO BEDTIME 03/02/19 03/02/19 History glucagon (human recombinant) 1 mg IM PRN PRN MDD ` 03/02/19 03/02/19 History [Glucagon Emergency Kit (human)] nystatin 1 applic TOPICAL BID PRN 03/02/19 03/02/19 History oxycodone 30 mg PO Q4H PRN 03/02/19 03/02/19 History Allergies Allergy/AdvReac Type Severity Reaction Status Date / Time codeine [CODEINE] AdvReac Unknown nausea Verified 01/25/19 20:27 Review of Systems Review of Systems ROS Unobtainable: All systems reviewed & are unremarkable except as noted in HPI and below Exam Vital Signs (past 8 hours): - 03/02/19 21:45 03/02/19 23:05 Temperature 98.8 F 99.0 F Pulse Rate 100 H 93 H Respiratory Rate 20 18 Blood Pressure 131/66 146/69 H Pulse Oximetry 98 97 Oxygen Delivery Method Room Air Oxygen Flow Rate 0 Narrative Exam Narrative: GENERAL APPEARANCE: well developed, adequately nourished, in no acute distress. HEENT: Normocephalic, atraumatic, PERRLA, conjunctiva clear, EOMs intact, no rhinorrhea, mucous membranes are moist and pink without lesions or exudate. NECK/THYROID: Week head lift, no JVD, no carotid bruit, rachea midline. LYMPH NODES: no cervical or supraclavicular lymphadenopathy. SKIN: [place], warm and dry, warmth and erythema from mid right lower extremity distal. HEART: regular rate and rhythm, S1-S2, no murmur, no rubs or gallops, brisk capillary refill, swelling of right foot with trace edema bilateral LUNGS: clear to auscultation bilaterally, no coarseness crackles or wheezing, no cough present CHEST: Symmetrical movement, no accessory muscle use, no pain to AP and lateral compression. ABDOMEN: Soft, no distention, no abdominal tenderness, no organomegaly, hypoactive bowel tones. EXTREMITIES: moves all extremities, diminished strength, spasticity with straight leg raise bilaterally, foot drop. NEUROLOGIC: Oriented to person and place, GCS 13, manual dexterity intact, talent development consultant unequal left greater than right, sensation intact to light touch, hearing grossly normal to speech. PSYCH: Patient stuporous, no spontaneous eye opening, follows commands, stable behavior Objective Labs Result Diagrams: 03/02/19 10:40 03/02/19 10:56 Labs: Laboratory Results - last 24 hr 03/02/19 03/02/19 03/02/19 10:40 10:40 10:56 WBC 19.3 H RBC 3.40 L Hgb 10.1 L Hct 29.7 L MCV 87.6 MCH 29.7 MCHC 33.9 RDW 14.3 Plt Count 280 Neut % (Auto) 88.4 H Lymph % (Auto) 4.6 L [place] % (Auto) 5.1 Eos % (Auto) 1.1 L Baso % (Auto) 0.8 Neut # (Auto) 05562 H Lymph # (Auto) 900 L [place] # (Auto) 1000 H Eos # (Auto) 200 Baso # (Auto) 200 H PT 12.6 INR 1.1 APTT 26 L D Sodium Potassium Chloride Carbon Dioxide BUN Creatinine Estimated GFR BUN/Creatinine Ratio Glucose Lactate 1.0 Calcium Magnesium Total Bilirubin AST ALT Alkaline Phosphatase Total Protein Albumin Globulin Albumin/Globulin Ratio Lipase Procalcitonin Urine Color Urine Appearance Urine pH Ur Specific [place] Urine Protein Urine Glucose (UA) Urine Ketones Urine Occult Blood Urine Nitrate Urine Bilirubin Urine Urobilinogen Ur Leukocyte Esterase Urine RBC Urine WBC Amorphous Sediment Urine Bacteria Ur Culture Indicated? Influenza A & B (PCR) 03/02/19 03/02/19 03/02/19 10:56 10:56 10:56 WBC RBC Hgb Hct MCV MCH MCHC RDW Plt Count Neut % (Auto) Lymph % (Auto) [place] % (Auto) Eos % (Auto) Baso % (Auto) Neut # (Auto) Lymph # (Auto) [place] # (Auto) Eos # (Auto) Baso # (Auto) PT INR APTT Sodium 138 Potassium 4.0 Chloride 102 Carbon Dioxide 32 BUN 24 H Creatinine 0.90 Estimated GFR > 60.0 BUN/Creatinine Ratio 26.7 H Glucose 275 H Lactate Calcium 8.4 Magnesium Cancelled Total Bilirubin 0.4 AST 30 ALT 58 Alkaline Phosphatase 146 H Total Protein 6.2 L Albumin 3.5 Globulin 2.7 Albumin/Globulin Ratio 1.3 Lipase < 10 L Procalcitonin 0.24 Urine Color Urine Appearance Urine pH Ur Specific [place] Urine Protein Urine Glucose (UA) Urine Ketones Urine Occult Blood Urine Nitrate Urine Bilirubin Urine Urobilinogen Ur Leukocyte Esterase Urine RBC Urine WBC Amorphous Sediment Urine Bacteria Ur Culture Indicated? Influenza A & B (PCR) 03/02/19 03/02/19 03/02/19 11:23 11:42 14:55 WBC RBC Hgb Hct MCV MCH MCHC RDW Plt Count Neut % (Auto) Lymph % (Auto) [place] % (Auto) Eos % (Auto) Baso % (Auto) Neut # (Auto) Lymph # (Auto) [place] # (Auto) Eos # (Auto) Baso # (Auto) PT INR APTT Sodium Potassium Chloride Carbon Dioxide BUN Creatinine Estimated GFR BUN/Creatinine Ratio Glucose Lactate 0.8 Calcium Magnesium Total Bilirubin AST ALT Alkaline Phosphatase Total Protein Albumin Globulin Albumin/Globulin Ratio Lipase Procalcitonin Urine Color Yellow Urine Appearance Clear Urine pH 7.5 Ur Specific [place] 1.010 Urine Protein Trace H Urine Glucose (UA) Trace H Urine Ketones Negative Urine Occult Blood Negative Urine Nitrate Negative Urine Bilirubin Negative Urine Urobilinogen 0.2 Ur Leukocyte Esterase Negative Urine RBC 1-5/hpf Urine WBC 0-1/hpf Amorphous Sediment 1+ Urine Bacteria Few (2-10) H Ur Culture Indicated? Cult not indicated Influenza A & B (PCR) Negative Assessment & Plan Assessment & Plan narrative: This is a 63-year-old male patient who was admitted to the hospital for altered mental status likely related to opiate medication use and cellulitis right lower extremity. 1. Metabolic encephalopathy, secondary to opiate medications, present on admission, active -Patient initially found to be stuporous with a GCS score of 10, at time of exam GCS is 13. -patient is on oxycodone 30 mg every 4 hours as needed at his care facility. -will monitor respiratory status, presently with adequate SpO2 and respiratory rate. -will hold opiate medications until patient is more responsive. 2. Cellulitis right lower extremity, acute, present on admission, active. -redness pain and swelling of the right foot from mid lower leg distal. -patient with elevated white blood cell count at 19.3 but negative lactate at 1.0 and negative procalcitonin 0.24. -patient has multiple small skin tears in various stages of healing some scabbed some open bilateral lower extremities. -patient received ceftriaxone 1 g IV and vancomycin 1250 mg IV emergency department. -order vancomycin 1000 mg IV every 12 hours with pharmacy to dose. 3. Diabetes type 1 with retinopathy, chronic, present on admission, stable -last hemoglobin A1c was 7.5 on 01/25/2019. -ordered fingerstick blood sugars AC and HS. -will continue patient's current regimen of Lantus 8 units subcu twice daily with correctional insulin low-dose range -Moderate constant carbohydrate diet 4. Essential hypertension, chronic, stable -will continue home medications of metoprolol succinate 12.5 mg daily. 5. History of CAD and CVA, -continue aspirin 325 mg daily and clopidogrel 75 mg daily. 6. Hypothyroidism, chronic and stable -TSH was 2.09 on 01/20/2019. -Continue home dose of levothyroxine 50 mcg p.o. daily 7. Chronic pain syndrome with opiate dependence, chronic, present on admission. Stable. -He is seen at [facility] [place]. -Continued oxycodone 30 mg every 4 hours as needed for pain, clonazepam 0.5 mg three times a day as needed for muscle spasms/anxiety, and baclofen 10 mg three times daily. 8. Depression, chronic, present on admission. Stable. -Continued home duloxetine 60 mg daily and mirtazapine 15 mg daily. 9. Opiate induced constipation, chronic, present on admission. Stable. -Continued home regimen of laxatives and stool softener. 10. 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 Stable. -continue baclofen 10 mg 3 times daily for spasticity VTE: Bilateral lower extremity compression hose, Lovenox 40 mg daily The patient is admitted to the hospitalist service with fever and cellulitis not meeting sepsis criteria but requiring IV antibiotics. The patient is admitted as an inpatient with expected length of stay to be greater than 2 midnights. Scores GCS [place] coma scale eye opening: To sound [place] coma scale verbal response: Confused [place] coma scale motor response: Obey commands [place] coma scale total score: 13 SOFA PaO2/FIO2: >=400 mmHg Platelets: >= 150 Bilirubin: < 1.2 mg/dL Hypotension: MAP >= 70 mmHg Jr Coma Scale: 13-14 Renal: < 1.2 mg/dL SOFA Score: 1 Quality VTE Deep Vein Thrombosis/Pulmonary Embolism Present on Admission: No
[2019-03-03] VITALS (9 sets, daily range): BP systolic 143–158; BP diastolic 68–87; PULSE 82–90; RESP 16–24; TEMP 36.9–37.9; O2SAT 94–97; BMI 27.1
[2019-03-03] MEDS: BISACODYL 5 MG TABLET 10 MG PO (01:03)
--- NOTE | 2019-03-03 01:22 | PC.NURSE ---
Addendum entered by Yumiko Fisher R.N. 03/03/19 02:16: Pt moaning out in pain, complaining of right heal and neck pain. Pt requesting his oxycodone. Per MD give tylenol. No narcotics at this time. Pt agreed to take tylenol. [facility] Addendum entered by Yumiko Fisher R.N. 03/03/19 01:35: Pt mother at bedside. Reports that patient is w/c bound at facility ([facility]) and frequently falls out of w/c Original Note: Pt alert and awake. Pt able to move bilateral extremities. Guzman catheter patent and intact draining yellow urine. Pt complains of general pain, but refuses tylenol at this time. Reports his pain is tolerable. WCTM. Pt complaining of constipation. Bisacodyl given. Martin hose applied bilateral extremities per order. Pt has scattered scratches, scars, and bruising on bilateral extremities. Excessive dryness to bilateral feet. Small wounds to toes, pt reports seeing wound care outpatient. aware.
[2019-03-03] MEDS: ACETAMINOPHEN 325 MG TABLET 650 MG PO ×3 (02:13→23:55)
[2019-03-03] MEDS: MAGNESIUM HYDROXIDE 30 ML UDC PO (05:07)
[2019-03-03 05:20] LABS: Add Manual Diff / Slide Review NO; Basophils Absolute Auto 100 /uL (0-100); Basophils Percent Auto 0.5 % (0-2); Eosinophils Absolute Auto 100 /uL (0-450); Eosinophils Percent Auto 0.9 % (2-4); Hematocrit 27.5 % (41-53); Hemoglobin 9.3 g/dL (13.5-17.5); Lymphocytes Absolute Auto 1200 /uL (1100-4500); Lymphocytes Percent Auto 7.8 % (25-40); Mean Corpuscular HGB Conc 33.7 % (30-36); Mean Corpuscular Hemoglobin 29.8 PG (26-34); Mean Corpuscular Volume 88.4 fL (80-100); Monocytes Absolute Auto 1100 /uL (0-900); Monocytes Percent Auto 7.1 % (3-14); Neutrophils Absolute Auto 12900 /uL (1500-7000); Neutrophils Percent Auto 83.7 % (50-75); Platelet Count 211 X10^3/uL (150-400); Red Blood Cell Count 3.12 X10^6/uL (4.5-5.9); Red Cell Distribution Width 14.3 % (11.6-14.8); White Blood Cell Count 15.4 X10^3/uL (4.5-11.0)
[2019-03-03 05:33] LABS: BUN Creatinine Ratio 28.3 (6-22); Blood Urea Nitrogen 17 mg/dL (9-20); Calcium 8.1 mg/dL (8.4-10.2); Carbon Dioxide 27 mmol/L (22-32); Chloride 102 mmol/L (98-107); Estimated Glomerular Filt Rate > 60.0 mL/min (>60); Glucose 229 mg/dL (80-110); HEMOLYSIS < 15 (0-50); Potassium 4.1 mmol/L (3.4-5.1); Sodium 135 mmol/L (137-145)
[2019-03-03] MEDS: LEVOTHYROXINE 50 MCG TABLET PO (06:03)
[2019-03-03] MEDS: PANTOPRAZOLE 20 MG TABLET PO (06:03)
--- NOTE | 2019-03-03 08:38 | CM.DANOTE ---
DCP: assessment: case received, EMR reviewed. Discharge Planning/Care Management Met with pt and introduced self and role. Pt is a 63 year old male with multiple medical comorbidities who admitted yesterday afternoon to care of hospitalist team. Payer: Medicare and [employer] PCP: Dr. Ralph Denise and her medical team at [facility]. He is a long time resident of [facility] and has also had prior stays at [facility]. He is agreeable to a return to his residence when stable for same. Have discussed case now with [facility] (pt is on pending list in case of need) and [place]/[facility] who says pt is fine to come back if his needs can be met at the [facility] level but she also had alerted the [facility] team that some snf time might be needed. P: discuss case in Team Rounds and follow as POC unfolds. CM Discharge Assessment Start: 03/03/19 08:34 Freq: Status: Active Protocol: Document 03/03/19 08:35 ITV (Rec: 03/03/19 08:37 ITV [id number]) Discharge Planning Assessment Advance Directives? Yes: POLST;ADV DIR;POA Advance Directives on File Yes History Provided By Patient,Medical Record Has Patient been admitted in last 30 No days? Comment but last admission was 01/25 with a d/c on 01/29/19 back to his residence at [facility]. Prior Living Arrangements Assisted Living Type of transporation used prior to Relies on Others admit Facility Name Admitted From: [facility] Comment Patient uses an electric w/c at [facility] Comment is on list for [facility] in case of snf need before a return to his [facility] Referrals Initiated Halfway Whiteboard Updated in Patient Room with Yes name and ext. # of [employer] Review Status In Process
[2019-03-03 09:08] LABS: Acinetobacter baumannii Not Detected (Not Detect); Enterobacteriaceae species Not Detected (Not Detect); Enterococcus species Not Detected (Not Detect); Listeria monocytogenes Not Detected (Not Detect); Methicillin-resistant gene Detected (Not Detect); Streptococcus agalactiae (Gr B Not Detected (Not Detect); Streptococcus pneumonia Not Detected (Not Detect); Streptococcus pyogenes (Gr A) Not Detected (Not Detect); Streptococcus species Not Detected (Not Detect)
[2019-03-03 09:09] LABS: Candida albicans Not Detected (Not Detect); Candida glabrata Not Detected (Not Detect); Candida krusei Not Detected (Not Detect); Candida parapsilosis Not Detected (Not Detect); Candida tropicalis Not Detected (Not Detect); E. coli Not Detected (Not Detect); Enterobacter cloacae complex Not Detected (Not Detect); Haemophilus influenzae Not Detected (Not Detect); Neisseria meningitidis Not Detected (Not Detect); Proteus species Not Detected (Not Detect); Pseudomonas aeruginosa Not Detected (Not Detect); Serratia marcescens Not Detected (Not Detect); Staphylococcus species Detected (Not Detect)
[2019-03-03] MEDS: SENNOSIDES 8.6 MG TABLET 17.2 MG PO (09:18)
[2019-03-03] MEDS: DOCUSATE 100 MG CAPSULE 200 MG PO ×2 (09:18→20:42)
[2019-03-03] MEDS: FUROSEMIDE 40 MG TABLET PO (09:18)
[2019-03-03] MEDS: METOPROLOL ER 25 MG TABLET 12.5 MG PO (09:18)
[2019-03-03] MEDS: BACLOFEN 10 MG TABLET PO ×3 (09:19→20:42)
[2019-03-03] MEDS: ASPIRIN EC 325 MG TABLET PO (09:19)
[2019-03-03] MEDS: ENOXAPARIN 40 MG/0.4 ML SYRINGE SUBCUT (09:19)
[2019-03-03] MEDS: CHOLECALCIFEROL (VITAMIN D3) 1,000 UNIT TABLET 1000 UNIT PO (09:19)
[2019-03-03] MEDS: POLYVINYL ALCOHOL DROPS 2 DROPS EYE-BOTH ×2 (09:19→20:43)
[2019-03-03] MEDS: INSULIN ASPART 100 UNIT/ML INSULN PEN SUBCUT ×4 (09:22→20:48)
[2019-03-03] MEDS: INSULIN GLARGINE 100 UNIT/ML 3ML PEN 8 UNIT SUBCUT (09:23)
[2019-03-03] MEDS: CLOPIDOGREL 75 MG TABLET PO (09:24)
[2019-03-03] MEDS: OXYCODONE ER 20 MG TAB PO ×2 (10:12→18:38)
--- NOTE | 2019-03-03 10:17 | PC.NURSE ---
Addendum entered by Josephine Kahn R.N. 03/03/19 12:49: Pts noon bs 275, pt given 3u of insulin. He states that his insulin needs to be adjusted, will talk to about this when she rounds on patient. Pt moans out in pain, but then quickly falls asleep. Long acting oxycontin given to patient earlier and he will have it again around 1400. He is being changed for a third time now as he is having another bowel movement, consistency has been soft. He states that he does not want to eat as he is constipated and he does not want his bs to increase. Encouraged to eat and reassured that he is getting bowel meds and his insulin. Pt denies any discomfort at this time. Original Note: [id number] is A&Ox3, He is able to position himself in bed well and turn on his side. BS this am 225 and pt given 2u of novolog plus his 8 units of Lantus. He has multiple skin issues and this is documented under skin assessment in physical assessment. Patient is unable to walk, he states that he had 3 CVA's that caused this. Pt also has some issues with memory, he speaks slowly but speech is clear. He is incontinent of urine and stool and has had 2 bowel movements this morning. VSS and he is lying on his r.side and resting.
[2019-03-03] MEDS: VANCOMYCIN 1,000 MG/200 ML PIGGYBACK 200 MG IV ×2 (11:08→23:41)
--- NOTE | 2019-03-03 11:22 | CM.DPC ---
DCP Cont: Faxed recent ER report and H&P to [facility] at fax # [phone] as requested. Fax confirmation scanned in. Aure Rodriguez, [facility] Special Officer
--- NOTE | 2019-03-03 12:10 | PT-IP ANOTE ---
pt refused PT this morning. stated that he is constipated and does not want to do anything until he has dealt with his constipation.
--- NOTE | 2019-03-03 15:17 | PT.IIE ---
Current Diagnoses Cellulitis of right lower limb (03/02/19) Surgical History (Last Reviewed 03/03/19 @ 04:06 by BOO Kahn) History of carotid endarterectomy (Acute) History of coronary artery stent placement (Acute) No pertinent past surgical history (Acute) Medical History (Last Reviewed 03/03/19 @ 04:06 by BOO Kahn) C3 spinal cord injury (Acute) C4 spinal cord injury (Acute) CVA (cerebral vascular accident) (Acute) Diabetes (Acute) Gastroesophageal reflux disease (Acute) Hyperlipidemia (Acute) Hypertension (Acute) Physical Therapy Inpatient Evaluation/Re-Eval M1 PT/OT-IP Prior Functional Status Start: 03/03/19 12:10 Freq: NEEDED Status: Active Protocol: Document 03/03/19 15:17 AB (Rec: 03/03/19 16:34 AB [email or web address]) Medical Review Prior Functional Status Medical History Reviewed Yes Communication able to make needs known Mobility and Gait per [facility] staff : pt's level of assistance varies from 1-2 person assist but more often than not just needs one person to assist him and able to pivot transfer bed<>power w/c. pt is non- ambulatory. [facility] staff also stated that pt is also 25% PWB on RLE and has been using a bone stimulator for RLE. pt stated that he had a previous fracture that is not healing well and the doctor ordered a bone stimulator and confirmed his weight bearing on RLE of 25% Activities of Daily Living and IADL's per [facility] staff: pt is assist with dressing, toileting and showers; able to feed self Social History Household Members caregiver Living Arrangements Skilled Nurse Facility Number of Stairs To Enter/Railing? pt lives at [facility] Home Environment Walk in Shower Home Equipment Power Wheelchair/Scooter, Shower Seat without Backrest, Hand Held Shower,Grab Bars Near Toilet,Grab Bars In Shower M2 PT-IP Current Condition Start: 03/03/19 12:10 Freq: NEEDED Status: Active Protocol: Document 03/03/19 15:17 AB (Rec: 03/03/19 16:34 AB [email or web address]) Physical Therapy Current Condition Current Condition Evaluation Date 03/03/19 Treatment Diagnosis RLE cellulitis; altered mental status; generalized weakness Onset Date 03/02/19 Weight Bearing Status Weight Bearing Status Partial Weight Bearing Allowed Weight Bearing Amount (enter % RLE 25% PWB or #) (%) M3 PT-IP Subjective Start: 03/03/19 12:10 Freq: NEEDED Status: Active Protocol: Document 03/03/19 15:17 AB (Rec: 03/03/19 16:34 AB [email or web address]) Subjective Physical Therapy Visit Type Type Initial Evaluation Visit Start Time 15:17 Visit Stop Time 15:45 Total Visit Minutes 28 Number of DIGITAL SALES ASSISTANT Visits 0 Physical Therapy Visit Comments Patient Comments c/o being constipated and that he had not seen his doctor and c/o that the doctor hold off his pain meds Therapy Pain Assessment Pain When Pain Assessed At Rest Pain Present Pain Present Pain Reported Location Rectum Scale Used stated a lot of pain M4 PT-IP Mobility and Gait Start: 03/03/19 12:10 Freq: NEEDED Status: Active Protocol: Document 03/03/19 15:17 AB (Rec: 03/03/19 16:34 [email or web address]) PT-Bed Mobility Assessment Supine to Sit Supine to Sit Moderate Assistance,1 Person Assistance Sit to Supine Sit to Supine Moderate Assistance,1 Person Assistance PT-Transfer Assessment Comments Mobility Comments pt agreed to do PT. pt completed supine to sit mod A and cues. pt was able to sit on EOB min A. c/o constipation and stated pain on his hemorrhoids. refused to do transfer and lie back down in bed. required mod A to elevated LE up to bed. pt refused further PT. pt also is easily agitated. positioned pt in bed. call light and table placed within reach. PT-Balance Assessment Sitting Balance and Reactions Static Sitting Balance Ability Fair Dynamic Sitting Balance Ability Poor M5 PT-IP Objective Assessments Start: 03/03/19 12:10 Freq: NEEDED Status: Active Protocol: Document 03/03/19 15:17 AB (Rec: 03/03/19 16:34 AB [email or web address]) Orientation Orientation/Cognition Level of Alertness Alert Orientation Name,Situation Safety Awareness Decreased Safety Awareness Memory Description Short Term Impaired,Detention Impaired Comments alert but sleepy Gross Range of Motion Lower Extremity ROM Assessment Right Impaired Impairments RLE tightness Strength Lower Extremity Strength Assessment Right Impaired Hip 2-/5 Knee 2-/5 Ankle DF 0/5 Sensation Assessment Sensation Gross Sensation Right LE Impaired Sensation Description Numbness Muscle Tone Muscle Tone Location Right Type of Tone Hypotonicity Severity of Tone Moderate M6 PT-IP Treatment Start: 03/03/19 12:10 Freq: NEEDED Status: Active Protocol: Document 03/03/19 15:17 AB (Rec: 03/03/19 16:34 AB [email or web address]) Physical Therapy Treatment Education Education Provided Safety M7 PT-IP Assessment and Plan Start: 03/03/19 12:10 Freq: NEEDED Status: Active Protocol: Document 03/03/19 15:17 AB (Rec: 03/03/19 16:34 AB [email or web address]) PT Summary Assessment and Plan Potential Rehabilitation Potential Fair Status of Condition at Evaluation Evolving Summary Impairments Pain,ROM,Strength,Balance, Coordination,Sensation,Tone, Cognition,Bed Mobility, Transfers,Gait,Activity Tolerance Assessment Summary Pt c/o pain and constipation. Attempted to transfer and was able to sit on EOB with mod A but upon sitting, refused to do transfer mobility with PT and stated that he has to deal with his constipation first before he can do PT. will need to assess further. pt lives at [facility] and staff stated that pt's level of assistance varies from 1-2 persons. at this time, d/c plan is for pt to go back to [facility]. Goals Bed Mobility Goal Minimal Assistance Transfer Goal Minimal Assistance Days to Meet Goals 5 Frequency of Treatment Frequency Of Treatment Once a Day Treatment Plan Physical Therapy Treatment Plan Bed Mobility Training,Transfer Training,Gait Training, Therapeutic Exercise,Balance Retraining,Discharge Planning, Neuromuscular Re-ed, Coordination Retraining,Manual Therapy Recommendations To Nursing Amount of Assist Needed Mechanical Lift Discharge Recommendations PT Discharge Recommendations LTAC Other Discharge Recommendations d/c back to [facility]
--- NOTE | 2019-03-03 16:48 | PM.PN.1 ---
Subjective Subjective Date Patient Seen: 03/03/19 Interval history: Ray Foster is a 63-year-old male resident of [facility] with a complex medical history consisting of previous C3-C4 spinal and traumatic brain injury, multiple CVAs, AL diagnosed earlier this year, diabetes mellitus type 1 who was brought to the ED from [facility] via EMS with altered mental status and fever. The patient is resting in bed and appears comfortable. He reports he does not feel well and has had a terrible month. He complains of right lower extremity pain especially on the back of his right heal. He reports he is followed outpatient by Orthopedic surgery for recent fracture in his right leg and has a bone stimulator that he is to wear for several more months. He has no other complaints and denies headache, shortness of breath, chest pain, abdominal pain, nausea, vomiting, fever, chills, dysuria, diarrhea or constipation. He is voiding via denson catheter placed in ED for lethargy. He reported BM that was difficult to pass with pain and discomfort. Plan to ensure his home bowel regimen is in place. He is bed and wheelchair bound at baseline but is able to perform transfers. Exam Vital Signs (past 8 hours): - 03/03/19 11:34 03/03/19 12:00 03/03/19 15:58 Temperature 98.8 F 100.3 F H Pulse Rate 84 88 85 Respiratory Rate 24 20 18 Blood Pressure 158/72 H 152/71 H Pulse Oximetry 96 96 97 Oxygen Delivery Method Room Air Oxygen Flow Rate 0 Narrative Exam Narrative: General: Older gentleman sitting in bed and in no distress, appropriately interactive. HEENT: Normocephalic, atraumatic. External ears without defect. Pupils equal, round, and reactive to light. Anicteric sclerae, moist conjunctivae, and no lid lag. Oropharynx free of erythema and cobble stoning with moist mucosa. Mild aphasia. Neck: Supple with full range of motion. No lymphadenopathy or thyromegaly. Cardiovascular: Regular rhythm and rate without murmurs, rubs, or gallops appreciated. Pulmonary: Clear to auscultation bilaterally without rhonchi, crackles or wheezes. Normal respiratory effort without use of accessory muscles. Abdomen: Soft, bowel sounds present, nontender, nondistended. No hepatosplenomegaly or masses appreciated. Extremities: No clubbing or cyanosis. Mild edema with erythema and warmth of right leg to pretibial area that appears infected. Tenderness to palpation of right heel. Neurological: Bilateral lower extremities are atrophied with paresis R>L. Psychiatric: Normal mood and affect. Appears to be alert and oriented to person, place, and time. Confusion and lethargy resolved. Objective Labs Result Diagrams: 03/04/19 05:29 03/04/19 05:09 Labs: Laboratory Results - last 24 hr 03/02/19 03/02/19 03/03/19 10:56 11:42 04:50 WBC 15.4 H RBC 3.12 L Hgb 9.3 L Hct 27.5 L MCV 88.4 MCH 29.8 MCHC 33.7 RDW 14.3 Plt Count 211 Neut % (Auto) 83.7 H Lymph % (Auto) 7.8 L [place] % (Auto) 7.1 Eos % (Auto) 0.9 L Baso % (Auto) 0.5 Neut # (Auto) 46852 H Lymph # (Auto) 1200 [place] # (Auto) 1100 H Eos # (Auto) 100 Baso # (Auto) 100 Sodium Potassium Chloride Carbon Dioxide BUN Creatinine Estimated GFR BUN/Creatinine Ratio Glucose Calcium Magnesium Cancelled A. baumannii (PCR) Not detected Kanwal albicans (PCR) Not detected C. glabrata (PCR) Not detected C. krusei (PCR) Not detected C. parapsilosis (PCR) Not detected C. tropicalis (PCR) Not detected Enterobacteriac sp PCR Not detected E. cloacae complex PCR Not detected Enterococcus sp PCR Not detected E. coli (PCR) Not detected H. influenzae (PCR) Not detected Klebsiella oxytoca PCR Not detected Klebsiella pneumoniae Not detected List. monocytogenes PCR Not detected N. meningitidis (PCR) Not detected Proteus species (PCR) Not detected Serratia marcescens PCR Not detected Staphylococcus sp PCR Detected H Staph aureus (PCR) Not detected mecA-Methicil Res Gene Detected H Streptococcus sp PCR Not detected Group A Strep (PCR) Not detected Strep agalactiae (PCR) Not detected Strep pneumoniae (PCR) Not detected P. aeruginosa (PCR) Not detected Bebo/B-Vanco Res Genes Not Reportable KPC-Carbap Res Gene PCR Not Reportable 03/03/19 04:50 WBC RBC Hgb Hct MCV MCH MCHC RDW Plt Count Neut % (Auto) Lymph % (Auto) [place] % (Auto) Eos % (Auto) Baso % (Auto) Neut # (Auto) Lymph # (Auto) [place] # (Auto) Eos # (Auto) Baso # (Auto) Sodium 135 L Potassium 4.1 Chloride 102 Carbon Dioxide 27 BUN 17 Creatinine 0.60 L Estimated GFR > 60.0 BUN/Creatinine Ratio 28.3 H Glucose 229 H Calcium 8.1 L Magnesium A. baumannii (PCR) Kanwal albicans (PCR) C. glabrata (PCR) C. krusei (PCR) C. parapsilosis (PCR) C. tropicalis (PCR) Enterobacteriac sp PCR E. cloacae complex PCR Enterococcus sp PCR E. coli (PCR) H. influenzae (PCR) Klebsiella oxytoca PCR Klebsiella pneumoniae List. monocytogenes PCR N. meningitidis (PCR) Proteus species (PCR) Serratia marcescens PCR Staphylococcus sp PCR Staph aureus (PCR) mecA-Methicil Res Gene Streptococcus sp PCR Group A Strep (PCR) Strep agalactiae (PCR) Strep pneumoniae (PCR) P. aeruginosa (PCR) Bebo/B-Vanco Res Genes KPC-Carbap Res Gene PCR Assessment & Plan Assessment & Plan narrative: Ray Foster is a 63-year-old male resident of [facility] with a complex medical history consisting of previous C3-C4 spinal and traumatic brain injury, multiple CVAs, AL diagnosed earlier this year, diabetes mellitus type 1 who was brought to the ED from [facility] via EMS with altered mental status and fever. 1. Cellulitis right lower extremity, acute, present on admission. Active. -Patient presented with edema and erythema of right lower extremity and tenderness to palpation of right posterior heel. -Initial WBC 19.3 procalcitonin 0.24. Lactate normal at 1.0. Continue to trend WBC and procalcitonin daily which are trending down. -Received ceftriaxone 1 g IV x1 and vancomycin 1250 mg IV x1 in ED. Continue vancomycin with dosing per pharmacist and ceftriaxone 1 g IV daily. -Continue to elevate bilateral lower extremities and float both heels. -Patient reports recent fracture in his right leg and has a bone stimulator that he is to wear for several more months. Plan to consult Orthopedic surgery tomorrow. 2. Metabolic encephalopathy, secondary to opiate medications, present on admission. Resolved. -Patient initially found to be stuporous with a GCS score of 10 in the ED. On admission GCS was 13. -Patient is on high-dose narcotic with oxycodone 30 mg every 4 hours as needed for pain. -Held oxycodone, baclofen, hydroxyzine initially and restarted once mentation improved. 3. Diabetes mellitus type 1, chronic, present on admission. Stable. -Hemoglobin A1c of 7.5% 01/2019. -Continue Lantus increased from 8 units to 12 units twice daily. -Continue ACHS blood glucose checks and low-dose correctional scale insulin. -Continue heart healthy/carbohydrate consistent diet. 4. CAD and history of CVA, chronic, present on admission. Stable. -Continue home atorvastatin 80 mg daily at bedtime, aspirin 325 mg daily and Plavix 75 mg daily. 5. PAD status post stenting on right leg, present on admission. Presumed stable. -Patient recently had arterial ischemic injury to right Hallux with eschar and is followed by wound care outpatient and will continue. -continue atorvastatin 80 mg daily at bedtime, aspirin 325 mg daily, and Plavix 75 mg daily. 6. Hypertension, chronic, present on admission. Stable. -Continue home metoprolol succinate 12.5 mg daily. 7. Hyperlipidemia, chronic, present on admission. Stable. -Continue atorvastatin 80 mg daily at bedtime. 8. Chronic pain syndrome with opiate dependence, chronic, present on admission. Stable. -He is seen at [facility] in [place]. -Continue oxycodone at decreased dose from 30 mg every 6 hours to 20 mg every 6 hours as needed for pain due to risk of respiratory suppression in setting of infection. Continue clonazepam 0.5 mg three times a day as needed for muscle spasms/anxiety and baclofen 10 mg three times daily. 9. Opiate induced constipation, chronic, present on admission. Stable. -Continue home regimen of laxatives and stool softener. 10. Hypothyroidism, chronic and stable -TSH was 2.09 on 01/20/2019. -Continue home levothyroxine 50 mcg daily. 11. Depression, chronic, present on admission. Stable. -Continue home duloxetine 60 mg daily and mirtazapine 15 mg daily. 12. 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 Stable. -Continue baclofen 10 mg 3 times daily for spasticity. Disposition: Patient likely to discharge back to assisted living facility 1 cellulitis been adequately treated Quality VTE Deep Vein Thrombosis/Pulmonary Embolism Present on Admission: No
[2019-03-03] MEDS: CALCIUM CARBONATE 600 MG TABLET 1200 MG PO (16:59)
[2019-03-03] MEDS: CEFTRIAXONE 1 GM/50 ML FROZ.PIGGY IV (19:26)
[2019-03-03] MEDS: ATORVASTATIN 20 MG TABLET 80 MG PO (20:41)
[2019-03-03] MEDS: DULOXETINE 30 MG CAPSULE 60 MG PO (20:42)
[2019-03-03] MEDS: INSULIN GLARGINE 100 UNIT/ML 3ML PEN 12 UNIT SUBCUT (20:49)
[2019-03-03 22:15] LABS: Vancomycin Trough 10.7 ug/mL (10-20)
[2019-03-04] MEDS: hydrOXYzine pamoate 25 MG CAPSULE 50 MG PO ×2 (02:55→10:41)
[2019-03-04 03:00] VITALS: BP 157/71; PULSE 80; RESP 19; TEMP 36.9; O2SAT 95
[2019-03-04 05:51] LABS: Add Manual Diff / Slide Review NO; Basophils Absolute Auto 100 /uL (0-100); Basophils Percent Auto 0.5 % (0-2); Eosinophils Absolute Auto 300 /uL (0-450); Eosinophils Percent Auto 2.9 % (2-4); Hematocrit 28.3 % (41-53); Hemoglobin 9.7 g/dL (13.5-17.5); Lymphocytes Absolute Auto 1600 /uL (1100-4500); Lymphocytes Percent Auto 13.9 % (25-40); Mean Corpuscular HGB Conc 34.4 % (30-36); Mean Corpuscular Volume 87.2 fL (80-100); Monocytes Absolute Auto 900 /uL (0-900); Monocytes Percent Auto 7.8 % (3-14); Neutrophils Absolute Auto 8400 /uL (1500-7000); Neutrophils Percent Auto 74.9 % (50-75); Platelet Count 233 X10^3/uL (150-400); Red Blood Cell Count 3.24 X10^6/uL (4.5-5.9); Red Cell Distribution Width 13.8 % (11.6-14.8); White Blood Cell Count 11.2 X10^3/uL (4.5-11.0)
[2019-03-04] MEDS: LEVOTHYROXINE 50 MCG TABLET PO (05:54)
[2019-03-04] MEDS: PANTOPRAZOLE 20 MG TABLET PO (05:54)
[2019-03-04] MEDS: OXYCODONE IR 10 MG TABLET 20 MG PO (05:54)
[2019-03-04 06:09] LABS: Alanine Aminotransferase 43 IU/L (<50); Albumin 3.2 g/dL (3.5-5.0); Albumin Globulin Ratio 1.2 (1.0-2.8); Alkaline Phosphatase 132 U/L (38-126); Aspartate Aminotransferase 35 IU/L (17-59); BUN Creatinine Ratio 18.3 (6-22); Bilirubin Total 0.3 mg/dL (0.2-1.3); Blood Urea Nitrogen 11 mg/dL (9-20); Calcium 8.2 mg/dL (8.4-10.2); Carbon Dioxide 29 mmol/L (22-32); Chloride 98 mmol/L (98-107); Estimated Glomerular Filt Rate > 60.0 mL/min (>60); Globulin 2.7 g/dL (1.7-4.1); Glucose 142 mg/dL (80-110); HEMOLYSIS < 15 (0-50); Magnesium 1.8 mg/dL (1.6-2.3); Potassium 3.2 mmol/L (3.4-5.1); Sodium 133 mmol/L (137-145); Total Protein 5.9 g/dL (6.3-8.2)
[2019-03-04 06:26] LABS: Procalcitonin 0.17 ng/mL (<0.5)
[2019-03-04 08:00] VITALS: BP 156/76; PULSE 80; RESP 16; TEMP 36.7; O2SAT 98
--- NOTE | 2019-03-04 09:30 | PM.PN.1 ---
Subjective Subjective Date Patient Seen: 03/04/19 Interval history: Ray Foster is a 63-year-old male resident of [facility] with a complex medical history consisting of previous C3-C4 spinal and traumatic brain injury, multiple CVAs, [place] diagnosed earlier this year, diabetes mellitus type 1 who was brought to the ED from [facility] via EMS with altered mental status and fever. The patient is resting in bed and appears comfortable. He is upset about his narcotic dose being lowered and significant amount of pain this morning. Patient was given OxyContin inadvertently yesterday instead of immediate release oxycodone with little complaints of pain. Discussed OxyContin with him in detail and plan to restart OxyContin 20 mg every 8 hours which is a third of the dose of immediate release oxycodone he has previously been on. Plan to implement immediate release oxycodone 5 mg every 4 hours as needed for breakthrough pain which is to be used sparingly. He continues to have pain in his right leg that has improved slightly. He also has chronic neck pain. He has no other complaints and denies headache, shortness of breath, chest pain, abdominal pain, nausea, vomiting, fever, chills, dysuria, diarrhea or constipation. He is voiding via denson catheter placed in ED for lethargy which will be removed today. Patient is eliminating without difficulty and will continue home bowel regimen. He is bed and wheelchair bound at baseline but is able to perform transfers. Exam Vital Signs (past 8 hours): - 03/04/19 12:00 03/04/19 16:14 Temperature 98.4 F 99.5 F Pulse Rate 84 81 Respiratory Rate 16 16 Blood Pressure 138/73 147/54 H Pulse Oximetry 96 99 Oxygen Delivery Method Room Air Oxygen Flow Rate 0 Narrative Exam Narrative: General: Older gentleman sitting in bed and in no distress, well-developed, well-nourished, irritable but otherwise appropriately interactive. HEENT: Normocephalic, atraumatic. External ears without defect. Pupils equal, round, and reactive to light. Anicteric sclerae, moist conjunctivae, and no lid lag. Oropharynx free of erythema and cobble stoning with moist mucosa. Mild aphasia. Neck: Supple with full range of motion. No lymphadenopathy or thyromegaly. Cardiovascular: Regular rhythm and rate without murmurs, rubs, or gallops appreciated. Pulmonary: Clear to auscultation bilaterally without rhonchi, crackles or wheezes. Normal respiratory effort without use of accessory muscles. Abdomen: Soft, bowel sounds present, nontender, nondistended. No hepatosplenomegaly or masses appreciated. Extremities: No clubbing or cyanosis. Mild edema with erythema and warmth of right leg to pretibial area that appears infected but improving. Tenderness to palpation of right heel, improved. Neurological: Bilateral lower extremities are atrophied with paresis R>L. Psychiatric: Normal mood and affect. Appears to be alert and oriented to person, place, and time. Confusion and lethargy resolved. Objective Labs Result Diagrams: 03/04/19 05:29 03/04/19 05:09 Labs: Laboratory Results - last 24 hr 03/03/19 03/04/19 03/04/19 21:39 05:09 05:09 WBC RBC Hgb Hct MCV MCH MCHC RDW Plt Count Neut % (Auto) Lymph % (Auto) [place] % (Auto) Eos % (Auto) Baso % (Auto) Neut # (Auto) Lymph # (Auto) [place] # (Auto) Eos # (Auto) Baso # (Auto) Sodium 133 L Potassium 3.2 L Chloride 98 Carbon Dioxide 29 BUN 11 Creatinine 0.60 L Estimated GFR > 60.0 BUN/Creatinine Ratio 18.3 Glucose 142 H Calcium 8.2 L Magnesium 1.8 Total Bilirubin 0.3 AST 35 ALT 43 Alkaline Phosphatase 132 H Total Protein 5.9 L Albumin 3.2 L Globulin 2.7 Albumin/Globulin Ratio 1.2 Procalcitonin 0.17 Vancomycin Trough 10.7 03/04/19 05:29 WBC 11.2 H RBC 3.24 L Hgb 9.7 L Hct 28.3 L MCV 87.2 MCH 30.0 MCHC 34.4 RDW 13.8 Plt Count 233 Neut % (Auto) 74.9 Lymph % (Auto) 13.9 L [place] % (Auto) 7.8 Eos % (Auto) 2.9 Baso % (Auto) 0.5 Neut # (Auto) 8400 H Lymph # (Auto) 1600 [place] # (Auto) 900 Eos # (Auto) 300 Baso # (Auto) 100 Sodium Potassium Chloride Carbon Dioxide BUN Creatinine Estimated GFR BUN/Creatinine Ratio Glucose Calcium Magnesium Total Bilirubin AST ALT Alkaline Phosphatase Total Protein Albumin Globulin Albumin/Globulin Ratio Procalcitonin Vancomycin Trough Assessment & Plan Assessment & Plan narrative: Ray Foster is a 63-year-old male resident of [facility] with a complex medical history consisting of previous C3-C4 spinal and traumatic brain injury, multiple CVAs, [place] diagnosed earlier this year, diabetes mellitus type 1 who was brought to the ED from [facility] via EMS with altered mental status and fever. 1. Cellulitis right lower extremity, acute, present on admission. Active. -Patient presented with edema and erythema of right lower extremity and tenderness to palpation of right posterior heel. -Initial WBC 19.3 procalcitonin 0.24. Lactate normal at 1.0. Continue to trend WBC and procalcitonin daily which are trending down and normalizing. -Received ceftriaxone 1 g IV x1 and vancomycin 1250 mg IV x1 in ED. Continue vancomycin with dosing per pharmacist and ceftriaxone 1 g IV daily. -Continue to elevate bilateral lower extremities and float both heels. -Patient reports recent fracture in his right leg and has a bone stimulator that he is to wear for several more months. Consulted Orthopedic surgery, Dr. Madera, for evaluation of right lower extremity, pending. -Ordered CT with contrast of right lower extremity to assess for abscess, osteomyelitis or other pathology, pending. 2. Metabolic encephalopathy, secondary to opiate medications, present on admission. Resolved. -Patient initially found to be stuporous with a GCS score of 10 in the ED. On admission, GCS was 13. -Patient is on high-dose narcotic with oxycodone 30 mg every 4 hours as needed for pain. -Held oxycodone, baclofen, hydroxyzine initially and restarted once mentation improved as below. 3. Diabetes mellitus type 1, chronic, present on admission. Stable. -Hemoglobin A1c of 7.5% 01/2019. -Continue Lantus increased from 8 units to 12 units twice daily. -Continue ACHS blood glucose checks and low-dose correctional scale insulin. -Continue heart healthy/carbohydrate consistent diet. 4. CAD and history of CVA, chronic, present on admission. Stable. -Continue home atorvastatin 80 mg daily at bedtime, aspirin 325 mg daily and Plavix 75 mg daily. 5. PAD status post stenting on right leg, present on admission. Presumed stable. -Patient recently had arterial ischemic injury to right Hallux with eschar and is followed by wound care outpatient and will continue. -Continue atorvastatin 80 mg daily at bedtime, aspirin 325 mg daily, and Plavix 75 mg daily. 6. Hypertension, chronic, present on admission. Stable. -Continue home metoprolol succinate 12.5 mg daily. 7. Hyperlipidemia, chronic, present on admission. Stable. -Continue atorvastatin 80 mg daily at bedtime. 8. Chronic pain syndrome with opiate dependence, chronic, present on admission. Stable. -He is seen at [facility] in [place]. -Switched patient to OxyContin 20 mg every 8 hours which is a third of the dose of immediate release oxycodone he has previously been on. Plan to implement immediate release oxycodone 5 mg every 4 hours as needed for breakthrough pain which is to be used sparingly. Continue clonazepam 0.5 mg three times a day as needed for muscle spasms/anxiety and baclofen 10 mg three times daily for muscle spasticity. 9. Opiate induced constipation, chronic, present on admission. Stable. -Continue home regimen of laxatives and stool softener. 10. Hypothyroidism, chronic and stable -TSH was 2.09 on 01/20/2019. -Continue home levothyroxine 50 mcg daily. 11. Depression, chronic, present on admission. Stable. -Continue home duloxetine 60 mg daily and mirtazapine 15 mg daily. 12. 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 Stable. -Continue baclofen 10 mg 3 times daily for muscle spasticity. Disposition: Patient likely to discharge back to assisted living facility tomorrow on oral antibiotics. Quality VTE Deep Vein Thrombosis/Pulmonary Embolism Present on Admission: No
[2019-03-04] MEDS: POLYVINYL ALCOHOL DROPS 2 DROPS EYE-BOTH ×2 (09:44→20:55)
[2019-03-04] MEDS: CHOLECALCIFEROL (VITAMIN D3) 1,000 UNIT TABLET 1000 UNIT PO (09:48)
[2019-03-04] MEDS: DOCUSATE 100 MG CAPSULE 200 MG PO (09:48)
[2019-03-04] MEDS: METOPROLOL ER 25 MG TABLET 12.5 MG PO (09:48)
[2019-03-04] MEDS: ASPIRIN EC 325 MG TABLET PO (09:49)
[2019-03-04] MEDS: CLOPIDOGREL 75 MG TABLET PO (09:49)
[2019-03-04] MEDS: ENOXAPARIN 40 MG/0.4 ML SYRINGE SUBCUT (09:49)
[2019-03-04] MEDS: SENNOSIDES 8.6 MG TABLET 17.2 MG PO (09:49)
[2019-03-04] MEDS: BACLOFEN 10 MG TABLET PO ×2 (09:49→20:50)
[2019-03-04] MEDS: INSULIN GLARGINE 100 UNIT/ML 3ML PEN 12 UNIT SUBCUT ×2 (09:50→20:53)
[2019-03-04] MEDS: VANCOMYCIN 1,500 MG/300 ML FROZ.PIGGY 150 MG IV ×2 (09:53→23:33)
[2019-03-04] MEDS: POTASSIUM CHLORIDE 20 MEQ TAB 40 MEQ PO (09:58)
[2019-03-04 10:27] VITALS: BP 118/87; PULSE 87
[2019-03-04] MEDS: MAGNESIUM HYDROXIDE 30 ML UDC PO (10:31)
--- NOTE | 2019-03-04 10:38 | DI.CT.S_ITS ---
PROCEDURE: CT LE RT W CON INDICATIONS: h/o prox tib/fib plateau fx, cellulitis, heal pain, osteo? TECHNIQUE: After the administration of intravenous contrast, 3 mm axial sections acquired of the right lower leg from the mid thigh to the foot, with coronal and sagittal reformats. COMPARISON: [facility], CR, XR TIBIA FIBULA RT 2V, 12/05/2018, 15:04. [facility], CR, XR FOOT RT MIN 3V, 03/02/2019, 11:05. FINDINGS: Image quality: Diagnostic. Bones: The bone mineralization is decreased, which does result in difficulty evaluating the bones for subtle abnormalities. Post surgical changes are present of the femur suggesting a prior proximal femoral ORIF. A long intramedullary nail is secured in place by 2 distal interlocking screws involving the distal femur. There continues to be an obliquely oriented fracture evident involving the proximal tibial diametaphysis with sclerosis at the fracture site is present. Evaluation for healing is suboptimal on this exam given the degree of osteopenia. However, there may be bony incorporation along the anterior margin of the fracture line. However, the posterior aspect of the fracture remains open. No new or acute fractures are appreciated involving the osseous structures of the imaged lower leg. No suspicious osseous lesions are evident. Soft tissues: There is a subcutaneous edema identified throughout the imaged portions of the right lower leg. No loculated fluid collections are appreciated. No definite fluid extending along the deep fascial planes is appreciated. Scattered areas of muscle atrophy are evident throughout the right lower extremity. No soft tissue masses are appreciated. Severe atherosclerotic changes are noted involving the imaged arteries. Please note that the timing of the contrast bolus is suboptimal to evaluate for arterial abnormalities. However, no aneurysm is appreciated. The ligamentous, tendinous, and cartilaginous structures of the knee and ankle are not adequately evaluated on CT. IMPRESSION: 1. Incompletely fused proximal tibial diametaphyseal fracture. This posterior fracture line remains open. 2. No acute fractures of the right lower extremity. 3. Diffuse osteopenia. Evaluation for subtle bony abnormalities is suboptimal given the degree of osteopenia. 4. If there is clinical concern for osteomyelitis, please consider MRI with contrast for further evaluation. 5. Subcutaneous edema of the right lower extremity probably is related to the patient's known cellulitis. However, no abscess or definite drainable fluid collection is evident. Dictated by: Jose Russo M.D. on 03/04/2019 at 10:59 Approved by: Jose Russo M.D. on 03/04/2019 at 11:08
[2019-03-04] MEDS: OXYCODONE ER 20 MG TAB PO ×2 (10:41→17:06)
--- NOTE | 2019-03-04 11:03 | PC.NURSE ---
Day shift: Pt off unit at approx [address] scan.
--- NOTE | 2019-03-04 11:34 | PC.NURSE ---
Day shift: Pt back on AC unit at this time.
[2019-03-04 12:00] VITALS: BP 138/73; PULSE 84; RESP 16; TEMP 36.9; O2SAT 96
--- NOTE | 2019-03-04 12:14 | P.CONS_ITS ---
History of Present Illness Consult details Date Patient Seen: 03/04/19 Time Patient Seen: 12:14 Chief complaint: lethargic, temp, Reason for consult: Concern for abscess vs. osteomyelitis Narrative: Patient is a 63-year-old male who presented with lethargy fevers and altered mental status. 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 He is essentially wheelchair-bound. Patient was last seen approximately 2 weeks ago at which time it was recommended he continue to use the bone stimulator and was weight-bearing as tolerated for transfers with no other further scheduled followups. Patient has been here at the hospital last days he presented with a white blood cell count of 19 which has been down trending since the initiation of antibiotics. The patient does note pain in the right lower extremity. Denies recent trauma to the right lower extremity. [facility] Medical History C3 spinal cord injury (Acute) C4 spinal cord injury (Acute) CVA (cerebral vascular accident) (Acute) Diabetes (Acute) Gastroesophageal reflux disease (Acute) Hyperlipidemia (Acute) Hypertension (Acute) Surgical History History of carotid endarterectomy (Acute) History of coronary artery stent placement (Acute) No pertinent past surgical history (Acute) Family History Mother Cancer Father Lung disease Hyperlipidemia Brother Lupus Social History household members: caregiver Smoking Status: Current every day smoker alcohol intake: current substance use type: does not use additional social history: He currently resides in He currently resides in [facility]. Meds Home Medications and Allergies Home Medications Medication Instructions Recorded Confirmed Type Maalox Maximum Strength 30 ml PO Q4H PRN #0 06/29/17 03/02/19 History acetaminophen 650 mg PO Q4HP PRN #0 06/29/17 03/02/19 History atorvastatin 80 mg PO BEDTIME #0 06/29/17 03/02/19 History bisacodyl 10 mg SC PRN PRN #0 06/29/17 03/02/19 History bisacodyl [Fleet Laxative] 10 mg PO PRN PRN #0 06/29/17 03/02/19 History clopidogrel 75 mg PO DAILY #0 06/29/17 03/02/19 History levothyroxine 50 mcg PO QAM #0 06/29/17 03/02/19 History metoprolol succinate [Toprol XL] 12.5 mg PO DAILY #0 06/29/17 03/02/19 History omeprazole 20 mg PO DAILY #0 06/29/17 03/02/19 History sennosides [senna] 17.2 mg PO DAILY #0 06/29/17 03/02/19 History artifi.tears(hypromellose)(PF) 0.3 2 ea EYE-BOTH BID ml 11/25/17 03/02/19 History % eye drops baclofen 10 mg tablet 10 mg PO TID 11/25/17 03/02/19 History insulin aspart U-100 100 unit/mL 100 unit SUBCUT QID 11/25/17 03/02/19 History (3 mL) subcutaneous pen docusate sodium 2 tab PO BID 03/05/18 03/02/19 History magnesium hydroxide [Milk of 30 ml PO DAILY PRN 03/05/18 03/02/19 History Magnesia] ammonium lactate 1 applic TOPICAL BID PRN 08/13/18 03/02/19 History calcium carbonate 1,200 mg PO QPM 08/13/18 03/02/19 History cholecalciferol (vitamin D3) 1,000 unit PO DAILY 08/13/18 03/02/19 History fluticasone propionate 1 spray INTRANASAL BID 08/13/18 03/02/19 History guaifenesin [Mucinex] 600 mg PO Q12H 08/13/18 03/02/19 History hydroxyzine pamoate 50 mg PO Q6H PRN 08/13/18 03/02/19 History insulin glargine 8 unit SUBCUT BID 08/13/18 03/02/19 History mirtazapine 22.5 mg PO QPM 08/13/18 03/02/19 History ondansetron 4 mg PO Q4H PRN 08/13/18 03/02/19 History vitamin B complex [B 1 tab PO DAILY 08/13/18 03/02/19 History Complex-Vitamin B12] cetirizine 10 mg PO DAILY PRN 01/25/19 03/02/19 History sodium chloride [Saline Mist] 1 spray INTRANASAL Q6H PRN 01/25/19 03/02/19 History aspirin 325 mg PO DAILY 02/20/19 03/02/19 History furosemide 40 mg PO DAILY 02/20/19 03/02/19 History clonazepam 0.75 mg PO Q6H PRN 03/02/19 03/02/19 History dextromethorphan polistirex 10 ml PO Q12H PRN 03/02/19 03/02/19 History [Delsym 12 hour] duloxetine 60 mg PO BEDTIME 03/02/19 03/02/19 History glucagon (human recombinant) 1 mg IM PRN PRN MDD ` 03/02/19 03/02/19 History [Glucagon Emergency Kit (human)] nystatin 1 applic TOPICAL BID PRN 03/02/19 03/02/19 History oxycodone 30 mg PO Q4H PRN 03/02/19 03/02/19 History Allergies Allergy/AdvReac Type Severity Reaction Status Date / Time codeine [CODEINE] AdvReac Unknown nausea Verified 01/25/19 20:27 Exam Vital Signs (past 8 hours): - 03/04/19 08:00 03/04/19 10:27 Temperature 98.1 F Pulse Rate 80 87 Respiratory Rate 16 Blood Pressure 156/76 H 118/87 Pulse Oximetry 98 Oxygen Delivery Method Room Air Oxygen Flow Rate 0 Narrative Exam Narrative: Patient appears comfortable on exam no pain. Patient is talkative and is eating lunch. Exam of the right lower extremity reveals no motor in dorsiflexion plantar flexion or EHL consistent with previous exams. Patient does have some altered sensation intact in the right lower extremity. He states he does not currently have significant pain in the right foot. Exam of his skin rather extremity does not reveal any new skin breaks in the foot heel ankle or lower tibia region. No fluctuance noted. He does have an superficial abrasion over the tibial tubercle on the right. Skin is slightly erythematous no streaking. Patient does have mild to moderate pitting edema consistent with disuse. Patient does not have significant pain with passive range of motion of the foot or ankle. Objective Imaging CT scan right lower extremity: My impression: CT scan of the right lower extremity with contrast was mati chowdhury. I do not appreciate any streaking within the soft tissue or abscess formation. Bone density is also consistent with previous x-rays and consistent with disuse osteopenia. I do not appreciate any osteomyelitis. 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 I will review the radiologist's impression once imaging report is available. Right foot x-ray: My impression: I do not appreciate any osteomyelitis or fractures in the right foot. Imaging is consistent with previous imaging. Consistent with disuse osteopenia. Labs Result Diagrams: 03/04/19 05:29 03/04/19 05:09 Labs: Laboratory Results - last 24 hr 03/03/19 03/04/19 03/04/19 21:39 05:09 05:09 WBC RBC Hgb Hct MCV MCH MCHC RDW Plt Count Neut % (Auto) Lymph % (Auto) [place] % (Auto) Eos % (Auto) Baso % (Auto) Neut # (Auto) Lymph # (Auto) [place] # (Auto) Eos # (Auto) Baso # (Auto) Sodium 133 L Potassium 3.2 L Chloride 98 Carbon Dioxide 29 BUN 11 Creatinine 0.60 L Estimated GFR > 60.0 BUN/Creatinine Ratio 18.3 Glucose 142 H Calcium 8.2 L Magnesium 1.8 Total Bilirubin 0.3 AST 35 ALT 43 Alkaline Phosphatase 132 H Total Protein 5.9 L Albumin 3.2 L Globulin 2.7 Albumin/Globulin Ratio 1.2 Procalcitonin 0.17 Vancomycin Trough 10.7 03/04/19 05:29 WBC 11.2 H RBC 3.24 L Hgb 9.7 L Hct 28.3 L MCV 87.2 MCH 30.0 MCHC 34.4 RDW 13.8 Plt Count 233 Neut % (Auto) 74.9 Lymph % (Auto) 13.9 L [place] % (Auto) 7.8 Eos % (Auto) 2.9 Baso % (Auto) 0.5 Neut # (Auto) 8400 H Lymph # (Auto) 1600 [place] # (Auto) 900 Eos # (Auto) 300 Baso # (Auto) 100 Sodium Potassium Chloride Carbon Dioxide BUN Creatinine Estimated GFR BUN/Creatinine Ratio Glucose Calcium Magnesium Total Bilirubin AST ALT Alkaline Phosphatase Total Protein Albumin Globulin Albumin/Globulin Ratio Procalcitonin Vancomycin Trough Assessment & Plan Assessment & Plan narrative: Patient is a 61-year-old paraplegic male. Orthopedics consult for concern of abscess versus osteomyelitis versus possible cellulitis. On my exam and review of imaging today patient does not appear to have any abscess or osteomyelitis. He does not have streaking cellulitis. At this point his right lower extremity appears relatively benign. I do not believe that his leukocytosis is caused by any infection on going in the right lower extremity however I would recommend continued compression elevation for the right lower extremity edema. Is some small amount of cellulitis is present continue antibiotics will help clear the infection. His white cell count has been down trending since admission. Weightbearing as tolerated right lower extremity for transfers Compression stocking for edema Continue antibiotic therapy until normalization of leukocytosis Elevate right heel as necessary to prevent pressure ulceration over the heel Please contact Dr. Madera if further orthopaedic issues arise Time Spent With Patient Time with patient: 15-24 minutes
[2019-03-04] MEDS: INSULIN ASPART 100 UNIT/ML INSULN PEN SUBCUT ×3 (12:30→20:53)
--- NOTE | 2019-03-04 14:35 | PC.NURSE ---
Day shift: orders to float bilat heels an d Pt is tolerating well. The 2 IV sites patent with 21ml/hr going TKO rt FA. Megan patent with output >500 this shift. Tolerating Martin hose. HIgh fall risk and agrees to not get OOB w/o help from staff. Tele NSR and Pt denies any chest pain. No nausea. Pt tolerating food. Pt taking stool softeners per JUL. Call light in reach. Pt wants to sit in WC. Offered for him to sit in chair but he didn't want to do that at this time.
--- NOTE | 2019-03-04 15:37 | PT-IP ANOTE ---
checked on pt and pt refused to do PT. stated that he does not want to get up and may be tomorrow he will do it.
[2019-03-04 16:14] VITALS: BP 147/54; PULSE 81; RESP 16; TEMP 37.5; O2SAT 99
[2019-03-04] MEDS: CALCIUM CARBONATE 600 MG TABLET 1200 MG PO (17:05)
[2019-03-04 19:34] VITALS: BP 148/78; PULSE 86; RESP 17; TEMP 36.9; O2SAT 98
[2019-03-04] MEDS: ATORVASTATIN 20 MG TABLET 80 MG PO (20:49)
[2019-03-04] MEDS: CEFTRIAXONE 1 GM/50 ML FROZ.PIGGY IV (20:49)
[2019-03-04] MEDS: OXYCODONE IR 5 MG TABLET PO (20:50)
[2019-03-04] MEDS: DULOXETINE 30 MG CAPSULE 60 MG PO (20:50)
[2019-03-05] VITALS: BP 165/85; PULSE 88; RESP 16; TEMP 36.9; O2SAT 98
[2019-03-05] MEDS: OXYCODONE ER 20 MG TAB PO ×2 (01:14→10:27)
[2019-03-05] MEDS: hydrOXYzine pamoate 25 MG CAPSULE 50 MG PO ×2 (02:20→08:26)
--- NOTE | 2019-03-05 02:30 | PC.NURSE ---
Addendum entered by Mary Coffman R.N. 03/05/19 06:47: Vanco trough lab result 24.9 at 0530. Chioma Mcgrath notified. Verbal order to call pharmacy given by Alcides. Jones at [facility] to let day pharmacy know results, and let them decide if they want to re-time medication also since it was given at 2330. Original Note: Pt VSS, generalized pain 8/10 and spasms. Pt was medicated w/ PRN vistiril 50mg at 0230. At 0100 both IV sites on Rgt arm were noticed to be infiltrated. Pt's Arm is warm, swollen, edematous. Pt had new 20G IV start on Lft hand, vanco was continued w/ new IV start. Pt's rgt arm was elevated and warm blankets applied. Pt was asked about alternating heat and ice but refused at this time. Pt's rgt arm continues to form blisters. Call light is within reach, bed is low and locked.
[2019-03-05 03:00] VITALS: BP 162/64; PULSE 86; RESP 16; TEMP 36.6; O2SAT 97
[2019-03-05 05:41] LABS: Add Manual Diff / Slide Review NO; Basophils Absolute Auto 0 /uL (0-100); Basophils Percent Auto 0.5 % (0-2); Eosinophils Absolute Auto 400 /uL (0-450); Hemoglobin 9.7 g/dL (13.5-17.5); Lymphocytes Absolute Auto 1500 /uL (1100-4500); Lymphocytes Percent Auto 16.4 % (25-40); Mean Corpuscular HGB Conc 34.7 % (30-36); Mean Corpuscular Hemoglobin 29.8 PG (26-34); Monocytes Absolute Auto 800 /uL (0-900); Neutrophils Absolute Auto 6400 /uL (1500-7000); Neutrophils Percent Auto 70.1 % (50-75); Platelet Count 250 X10^3/uL (150-400); Red Blood Cell Count 3.26 X10^6/uL (4.5-5.9); Red Cell Distribution Width 13.6 % (11.6-14.8); White Blood Cell Count 9.1 X10^3/uL (4.5-11.0)
[2019-03-05] MEDS: LEVOTHYROXINE 50 MCG TABLET PO (05:41)
[2019-03-05] MEDS: PANTOPRAZOLE 20 MG TABLET PO (05:42)
[2019-03-05 05:56] LABS: BUN Creatinine Ratio 15.7 (6-22); Blood Urea Nitrogen 11 mg/dL (9-20); Calcium 8.2 mg/dL (8.4-10.2); Carbon Dioxide 28 mmol/L (22-32); Chloride 99 mmol/L (98-107); Estimated Glomerular Filt Rate > 60.0 mL/min (>60); Glucose 211 mg/dL (80-110); HEMOLYSIS < 15 (0-50); Potassium 3.8 mmol/L (3.4-5.1); Sodium 133 mmol/L (137-145)
[2019-03-05 06:03] LABS: Vancomycin Trough 24.9 ug/mL (10-20)
[2019-03-05 08:00] VITALS: BP 144/69; PULSE 87; RESP 18; TEMP 37; O2SAT 97
[2019-03-05] MEDS: ASPIRIN EC 325 MG TABLET PO (08:26)
[2019-03-05] MEDS: METOPROLOL ER 25 MG TABLET 12.5 MG PO (08:26)
[2019-03-05] MEDS: BACLOFEN 10 MG TABLET PO (08:26)
[2019-03-05] MEDS: FUROSEMIDE 40 MG TABLET PO (08:26)
[2019-03-05] MEDS: CHOLECALCIFEROL (VITAMIN D3) 1,000 UNIT TABLET 1000 UNIT PO (08:27)
[2019-03-05] MEDS: CLOPIDOGREL 75 MG TABLET PO (08:27)
[2019-03-05] MEDS: ENOXAPARIN 40 MG/0.4 ML SYRINGE SUBCUT (08:28)
[2019-03-05] MEDS: POLYVINYL ALCOHOL DROPS 2 DROPS EYE-BOTH (08:29)
[2019-03-05] MEDS: INSULIN GLARGINE 100 UNIT/ML 3ML PEN 12 UNIT SUBCUT (08:29)
[2019-03-05] MEDS: INSULIN ASPART 100 UNIT/ML INSULN PEN SUBCUT ×2 (08:30→12:38)
--- NOTE | 2019-03-05 09:04 | PM.DS.1 ---
History of Present Illness History of Present Illness Date Patient Seen: 03/02/19 Chief complaint: lethargic, temp, Narrative: Written by Ehsan HADDAD: Mr. 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 The patient is a resident at [facility] and has been being treated for cellulitis of the right foot. The patient is lethargic complicating attaining him medical history. At baseline the patient is normally alert and communicative and is found to be lethargic and slow to respond. The patient denies complaints of headaches or dizziness, chest pain and has no shortness of breath and reports no cough. He has no complaints of abdominal pain and denies nausea vomiting. Per report from the longterm the patient has been in his normal state of health until spiking a fever today and has received his normal medications. Upon arrival in the emergency department the patient was found to have a low-grade temperature 99.3?, heart rate of 91, blood pressure 134/63, respirations of 20 and oxygen saturation 96%. HX x-ray was obtained which is negative for acute cardiopulmonary findings. An imaging is completed of the right foot which finds no indication of osteomyelitis. On laboratory analysis he has a white count of 19.3, hemoglobin of 10.1, hematocrit 29.7 and platelets 280. His electrolytes are within normal limits. His BUN is 24 and creatinine is 0.9. Blood sugar assess the field was over 400 and on laboratory evaluation nonfasting glucose is 275. He does have an elevated alkaline phosphatase of 146. His coagulation studies are with normal range. His initial lactic acid 1.01 after 2 L of IV fluid is down to 0.8, his procalcitonin is 0.24. The patient is admitted for diabetic cellulitis with altered mental status. Discharge Providers Provider Date of admission: 03/02/19 14:48 Discharge Date: 03/05/19 Primary care physician: Linda Denise MD Consults: 03/02/19 18:25 Consult to Dietitian, Adult Routine Comment: Reason For Exam: Pt is diabetic. Obtunded upon admission. 03/02/19 18:27 Consult to Dietitian, Adult Routine Comment: Reason For Exam: Wounds/diabetic/wheelchair bound/obtunded 03/02/19 21:38 Consult to Discharge Planning Routine Comment: Consult to Physical Therapy Evaluate & Treat Comment: C3-4 quadriplegic, spasticity Physician Instructions: Evaluate and Treat 03/04/19 10:26 Consult to Orthopedic Surgery Routine Comment: Consulting Provider: Antonio Madera Reason for consultation: Right leg infection Has provider been notified: Yes Discharge provider: Ghada Coats DO Summary Hospital Course Discharge Diagnosis: 1. Cellulitis right lower extremity, acute, present on admission. Resolved. 2. Metabolic encephalopathy, secondary to opiate medications, present on admission. Resolved. 3. Diabetes mellitus type 1, chronic, present on admission. Stable. 4. CAD and history of CVA, chronic, present on admission. Stable. 5. PAD status post stenting on right leg, present on admission. Presumed stable. 6. Hypertension, chronic, present on admission. Stable. 7. Hyperlipidemia, chronic, present on admission. Stable. 8. Chronic pain syndrome with opiate dependence, chronic, present on admission. Stable. 9. Opiate induced constipation, chronic, present on admission. Stable. 10. Hypothyroidism, chronic and stable 11. Depression, chronic, present on admission. Stable. 12. 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 Stable. Hospital Course: Ray Foster is a 63-year-old male resident of [facility] with a complex medical history consisting of previous C3-C4 spinal and traumatic brain injury, multiple CVAs, AK diagnosed earlier this year, diabetes mellitus type 1 who was brought to the ED from [facility] via EMS with altered mental status and fever. 1. Cellulitis right lower extremity, acute, present on admission. Resolved. -Patient presented with edema and erythema of right lower extremity and tenderness to palpation of right posterior heel. -Initial WBC 19.3 procalcitonin 0.24. Lactate normal at 1.0. Continued to trend WBC which trended down and normalized. -Received ceftriaxone 1 g IV x1 and vancomycin 1250 mg IV x1 in ED. Continued vancomycin with dosing per pharmacist and ceftriaxone 1 g IV daily. 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 Consulted Orthopedic surgery, Dr. Madera, for evaluation of right lower extremity for and concern for osteomyelitis and/or abscess due to severe peripheral arterial disease and diabetes. CT with contrast of right lower extremity performed and ruled out abscess, osteomyelitis or other pathology. The patient has done well, his cellulitis is nearly resolved and he is completing antibiotics. Continue to recommend conservative management and offload heels bilaterally, elevate legs daily, and apply compression stockings daily. 2. Metabolic encephalopathy, secondary to opiate medications, present on admission. Resolved. -Patient initially found to be stuporous with a GCS score of 10 in the ED. On admission, GCS was 13. -Patient is on high-dose narcotics. Recommend if the patient becomes significantly obtunded in future, for which seems to be the case with any underlying infection, administer Narcan (at home or in ED) as he is on high dose narcotic and to avoid deleterious outcome such as aspiration or respiratory arrest. -Held oxycodone, baclofen, hydroxyzine initially and restarted once mentation improved as below. 3. Diabetes mellitus type 1, chronic, present on admission. Stable. -Hemoglobin A1c of 7.5% 01/2019. -Continued Lantus increased from 8 units to 12 units twice daily. -Continued ACHS blood glucose checks and low-dose correctional scale insulin. -Continued heart healthy/carbohydrate consistent diet. 4. CAD and history of CVA, chronic, present on admission. Stable. -Continued home atorvastatin 80 mg daily at bedtime, aspirin 325 mg daily and Plavix 75 mg daily. 5. PAD status post stenting on right leg, present on admission. Presumed stable. -Patient recently had arterial ischemic injury to right Hallux with eschar and is followed by wound care outpatient and will continue. -Continued atorvastatin 80 mg daily at bedtime, aspirin 325 mg daily, and Plavix 75 mg daily. 6. Hypertension, chronic, present on admission. Stable. -Continued home metoprolol succinate 12.5 mg daily. 7. Hyperlipidemia, chronic, present on admission. Stable. -Continued atorvastatin 80 mg daily at bedtime. 8. Chronic pain syndrome with opiate dependence, chronic, present on admission. Stable. -He is seen at [facility] in [place] and recommend close outpatient follow-up. -Switched patient from immediate release oxycodone 30 mg every 4 hours to OxyContin 20 mg every 8 hours which is a third of the dose of immediate release oxycodone he has previously been on in an effort to titrate his dose down. Continued immediate release oxycodone 5 mg every 4 hours only as needed for breakthrough pain and used sparingly. -Continued clonazepam 0.5 mg three times a day as needed for muscle spasms/anxiety and baclofen 10 mg three times daily for muscle spasticity. -Recommend if the patient becomes significantly obtunded in future, for which seems to be the case with any underlying infection, administer Narcan (at home or in ED) as he is on high dose narcotic and to avoid deleterious outcome such as aspiration or respiratory arrest. 9. Opiate induced constipation, chronic, present on admission. Stable. -Continued home regimen of laxatives and stool softener. 10. Hypothyroidism, chronic and stable -TSH was 2.09 on 01/20/2019. -Continued home levothyroxine 50 mcg daily. 11. Depression, chronic, present on admission. Stable. -Continued home duloxetine 60 mg daily and mirtazapine 15 mg daily. 12. 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 Stable. -Continued baclofen 10 mg 3 times daily for muscle spasticity. Exam Vital Signs (past 8 hours): - 03/05/19 03:00 Temperature 97.9 F Pulse Rate 86 Respiratory Rate 16 Blood Pressure 162/64 H Pulse Oximetry 97 Oxygen Delivery Method Room Air Oxygen Flow Rate 0 Narrative Exam Narrative: General: Older gentleman sitting in bed and in no distress, well-developed, well-nourished, irritable but otherwise appropriately interactive. HEENT: Normocephalic, atraumatic. External ears without defect. Pupils equal, round, and reactive to light. Anicteric sclerae, moist conjunctivae, and no lid lag. Oropharynx free of erythema and cobble stoning with moist mucosa. Mild aphasia. Neck: Supple with full range of motion. No lymphadenopathy or thyromegaly. Cardiovascular: Regular rhythm and rate without murmurs, rubs, or gallops appreciated. Pulmonary: Clear to auscultation bilaterally without rhonchi, crackles or wheezes. Normal respiratory effort without use of accessory muscles. Abdomen: Soft, bowel sounds present, nontender, nondistended. No hepatosplenomegaly or masses appreciated. Extremities: No clubbing or cyanosis. Mild bipedema of bilateral lower extremities. Erythema and warmth of right leg resolved. Tenderness to palpation of right heel resolved. Off loading bootie on right foot. Various abrasions on all extremities at different stages of healing. Neurological: Bilateral lower extremities are atrophied with paresis R>L. Psychiatric: Depressed mood and affect. Appears to be alert and oriented to person, place, and time. Confusion and lethargy resolved. Objective Labs Result Diagrams: 03/05/19 05:05 03/05/19 05:05 Labs: Laboratory Results - last 24 hr 03/05/19 03/05/19 03/05/19 05:05 05:05 05:05 WBC 9.1 RBC 3.26 L Hgb 9.7 L Hct 28.0 L MCV 86.0 MCH 29.8 MCHC 34.7 RDW 13.6 Plt Count 250 Neut % (Auto) 70.1 Lymph % (Auto) 16.4 L [place] % (Auto) 9.0 Eos % (Auto) 4.0 Baso % (Auto) 0.5 Neut # (Auto) 6400 Lymph # (Auto) 1500 [place] # (Auto) 800 Eos # (Auto) 400 Baso # (Auto) 0 Sodium 133 L Potassium 3.8 Chloride 99 Carbon Dioxide 28 BUN 11 Creatinine 0.70 Estimated GFR > 60.0 BUN/Creatinine Ratio 15.7 Glucose 211 H Calcium 8.2 L Vancomycin Trough 24.9 H* Discharge Plan Discharge Plan Patient Disposition: Assisted Living Other facility: [facility] 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 Discharge Med Rec/Prescriptions Prescriptions: New oxycodone [OxyContin] 20 mg Tablet,Oral Only,Ext.Rel.12 Hr 20 mg PO Q8H Qty: 20 RF: 0 clonazepam 0.5 mg tablet 0.75 mg PO Q6H PRN (Reason: Anxiety) Qty: 20 RF: 0 Continued atorvastatin 80 MG tablet 80 mg PO BEDTIME Qty: 0 RF: 0 clopidogrel 75 MG tablet 75 mg PO DAILY Qty: 0 RF: 0 levothyroxine 50 MCG tablet 50 mcg PO QPM Qty: 0 RF: 0 metoprolol succinate [Toprol XL] 25 MG tablet extended release 24 hr 12.5 mg PO DAILY Qty: 0 RF: 0 sennosides [senna] 8.6 MG tablet 17.2 mg PO BEDTIME Qty: 0 RF: 0 acetaminophen 325 MG tablet 650 mg PO Q4HP PRN (Reason: Fever Or Pain) Qty: 0 RF: 0 omeprazole 20 MG capsule,delayed release(DR/EC) 20 mg PO DAILY Qty: 0 RF: 0 bisacodyl 10 MG suppository 10 mg HI PRN PRN (Reason: Constipation) Qty: 0 RF: 0 bisacodyl [Fleet Laxative] 5 MG tablet,delayed release (DR/EC) 10 mg PO PRN PRN (Reason: no BM x 3 days ) Qty: 0 RF: 0 Maalox Maximum Strength 355 ML suspension 30 ml PO Q4H PRN (Reason: gi upset) Qty: 0 RF: 0 magnesium hydroxide [Milk of Magnesia] 400 mg/5 mL Suspension 30 ml PO PRN PRN (Reason: Constipation) RF: 0 docusate sodium 100 mg Capsule 2 tab PO BID RF: 0 aspirin 325 mg Tablet,Delayed Release (Dr/Ec) 325 mg PO DAILY RF: 0 furosemide 40 mg tablet 40 mg PO DAILY RF: 0 calcium carbonate 600 mg calcium (1,500 mg) Tablet 1,200 mg PO QPM RF: 0 vitamin B complex [B Complex-Vitamin B12] Tablet 1 tab PO QPM RF: 0 mirtazapine 15 mg Tablet 22.5 mg PO BEDTIME RF: 0 fluticasone propionate 50 mcg/actuation [place],Suspension 1 spray INTRANASAL BID RF: 0 cholecalciferol (vitamin D3) 1,000 unit Capsule 1,000 unit PO QPM RF: 0 hydroxyzine pamoate 25 mg Capsule 25 - 50 mg PO Q6H PRN (Reason: pain/spasms) RF: 0 insulin glargine 100 unit/mL (3 mL) Insulin Pen 8 unit SUBCUT BID RF: 0 ondansetron 4 mg Tablet,Disintegrating 4 mg PO Q4H PRN (Reason: Nausea) RF: 0 ammonium lactate 12 % Lotion 1 applic TOPICAL BID PRN (Reason: Dry Skin) RF: 0 guaifenesin [Mucinex] 600 mg Tablet Extended Release 12hr 600 mg PO Q12H RF: 0 cetirizine 10 mg Tablet 10 mg PO DAILY PRN (Reason: allergies) RF: 0 sodium chloride [Saline Mist] 0.65 % Aerosol,[place] 1 spray INTRANASAL Q6H PRN (Reason: Congestion) RF: 0 Glucagon Emergency Kit (human) 1 mg Recon Soln 1 mg IM PRN MDD ` PRN (Reason: blood glucose <60) RF: 0 duloxetine 60 mg capsule,delayed release(DR/EC) 60 mg PO BEDTIME RF: 0 nystatin 100,000 unit/gram Cream 1 applic TOPICAL BID PRN (Reason: yeast) RF: 0 insulin aspart U-100 [Novolog Flexpen U-100 Insulin] 100 unit/mL insulin pen 100 unit SUBCUT QID RF: 0 baclofen 10 mg tablet 10 mg PO TID RF: 0 artifi.tears(hypromellose)(PF) 0.3 % drops 2 drp EYE-BOTH BID RF: 0 Discontinued oxycodone 10 mg tablet 30 mg PO Q4H PRN (Reason: Pain (Scale Score 1-3)) RF: 0 No Action Health Shake 1 ea PO QPM RF: 0 Alcohol Liquor 1 ea PO DAILY PRN (Reason: life enjoyment) RF: 0 dextromethorphan polistirex [Delsym 12 hour] 30 mg/5 mL Suspension,Extended Rel 12 Hr 10 ml PO Q12H PRN (Reason: Cough) RF: 0 ibuprofen 400 mg Tablet 400 mg PO Q4H PRN (Reason: pain) RF: 0 bisacodyl 5 mg Tablet,Delayed Release (Dr/Ec) 5 mg PO PRN PRN (Reason: no BM x 2 days) RF: 0 oxycodone 5 mg tablet 5 mg PO Q4H PRN (Reason: pain) RF: 0 doxycycline hyclate 100 mg capsule 100 mg PO [id number] RF: 0 cefdinir 300 mg capsule 300 mg PO [id number] RF: 0 Follow up/Referrals: Linda Denise MD [Primary Care Provider] - 1 Week Discharge Orders: Discharge (Order); Ordered 03/05/19 Ordered By: Ghada Coats Discharge Health Status Brief summary of current health status: Ray Foster is a 63-year-old male resident of [facility] with a complex medical history consisting of previous C3-C4 spinal and traumatic brain injury, multiple CVAs, AK diagnosed earlier this year, diabetes mellitus type 1 who was brought to the ED from [facility] via EMS with altered mental status and fever and found to have right lower extremity cellulitis. Orthopedic surgery was consulted due to previous tibial fibula plateau fracture and concern for osteomyelitis and/or abscess due to severe peripheral arterial disease and diabetes. CT performed did not demonstrate any of the above concerns. The patient has done well, his cellulitis is nearly resolved and he is completing antibiotics. Continue to recommend conservative management and offload heels bilaterally, elevate legs daily, and apply compression stockings daily. Narcotic dose switched from short to long acting oxycodone (1/3 the dose he was previously on) and recommend home Narcan prescription if he becomes obtunded in the future to avoid deleterious outcome and close follow up with pain specialist. Provider Discharge Instructions Diet: Diet as Tolerated, Carb-consistent/Diabetic, Low-fat, Low-sodium and Low-cholesterol [facility] Reason for rehabilitation: Recovery r/t decondition Rehab type: Physical therapy and Occupational therapy Discharge Data Primary Care Provider: Linda Denise Discharges patient from system. Discharge Date/Time: 03/05/19 13:36 Quality VTE Deep Vein Thrombosis/Pulmonary Embolism Present on Admission: No
--- NOTE | 2019-03-05 09:31 | PC.NURSE ---
Pt is A&Ox3, he states that he is having some spasms, given vistaril with his morning meds and this has been effective for discomfort. Pt has multiple skin issues, He has abrasions to his hands, and knees from multiple falls at [facility]. He also has a r.red lower extremity with leandro hose in place. Legs with trace edema. Pt is wheelchair bound but is able to stand and pivot into his chair. He is going to be discharged later this afternoon.
[2019-03-05] MEDS: OXYCODONE IR 5 MG TABLET PO (10:27)
[2019-03-05] MEDS: VANCOMYCIN 1,500 MG/300 ML FROZ.PIGGY 150 MG IV (11:35)
[2019-03-05 12:00] VITALS: BP 147/79; PULSE 91; RESP 18; TEMP 36.2; O2SAT 97
--- NOTE | 2019-03-05 13:14 | CM.DPC ---
DCP: continued: pt is now deemed stable for d/c. Orthopedic physician Dr. Madera has consulted and these notes are included in the clinical information going to the [facility]. CHRISTIAN Maldonado has come to assess pt/ok'd for return. She spoke with Dr. Coats as well as CHRISTIAN Burton in addition to discussion with pt. [facility] and using pt's motorized w/c. Pt has been updated all morning. JOSE#2 issues and verbally acknowledged. Orders are all in place. Pt will be picked up about 1345 today.
== END 2019-03-05 13:36 | DRG 91 ==
LOC: ED 11:28 → AC 14:49
PROVIDERS: Nurse Practitioner Adult Health; Admitting Provider Internal Medicine; Emergency Provider Emergency Medicine; Family Provider Nurse Practitioner Family; PCP Internal Medicine; Visit Provider Internal Medicine
DX: G92 Toxic encephalopathy (principal); G82.50 Quadriplegia, unspecified; L03.115 Cellulitis of right lower limb; N17.9 Acute kidney failure, unspecified; S14.106S Unspecified injury at C6 level of cervical spinal cord, sequela; E10.51 Type 1 diabetes mellitus with diabetic peripheral angiopathy without gangrene; E10.319 Type 1 diabetes mellitus with unspecified diabetic retinopathy without macular edema; G89.4 Chronic pain syndrome; Z79.891 Long term (current) use of opiate analgesic; K59.03 Drug induced constipation; T40.2X5A Adverse effect of other opioids, initial encounter; F17.210 Nicotine dependence, cigarettes, uncomplicated; Z79.4 Long term (current) use of insulin; Z87.820 Personal history of traumatic brain injury; I10 Essential (primary) hypertension; F32.9 Major depressive disorder, single episode, unspecified; E78.5 Hyperlipidemia, unspecified; I25.10 Atherosclerotic heart disease of native coronary artery without angina pectoris
CPT/HCPCS: 15275; 36415; 51701; 71045; 73630; 73701; 80048; 80053; 80202; 81001; 82962; 83605; 83690; 83735; 84145; 85025; 85610; 85730; 87040; 87150; 87186; 87205; 87502; 87797; 93005; 94760; 94762; 96361; 96365; 96366; 96367; 97162; 99285; 99291; J1170; J1650; J1885; Q4196; Q9967

== ENCOUNTER → 2019-03-06 16:22 | Outpatient (CLI) | payer MEDICARE, MEDICAID, SELFPAY ==
[2019-03-02 18:01] VITALS: BMI 27.4
== END ==
PROVIDERS: Family Provider Nurse Practitioner Family; PCP Internal Medicine; Visit Provider Podiatrist Primary Podiatric Medicine
DX: E11.621 Type 2 diabetes mellitus with foot ulcer (principal); L97.519 Non-pressure chronic ulcer of other part of right foot with unspecified severity; E11.59 Type 2 diabetes mellitus with other circulatory complications
CPT/HCPCS: 15275; Q4196

== ENCOUNTER 2019-03-07 16:07 | Emergency (ER) | payer MEDICARE, MEDICAID, SELFPAY ==
[2019-03-02 18:01] VITALS: BMI 27.4
[2019-03-07 16:13] VITALS: BP 144/115; PULSE 89; RESP 18; TEMP 37.2; O2SAT 100
--- NOTE | 2019-03-07 17:24 | DI.RAD.S_ITS ---
PROCEDURE: XR CHEST 1V INDICATIONS: chills TECHNIQUE: One view of the chest was acquired. COMPARISON: [facility], CR, XR CHEST 1V, 03/02/2019, 11:05. FINDINGS: Surgical changes and devices: None. Lungs and pleura: Lungs are clear. Emphysematous change. No consolidation. No pleural effusions or pneumothorax. Mediastinum: Mediastinal contours appear normal. Heart size is normal. Bones and chest wall: No suspicious bony lesions. Overlying soft tissues appear unremarkable. IMPRESSION: No acute cardiopulmonary abnormality. Emphysematous change. Dictated by: Lencho Brock M.D. on 03/07/2019 at 17:41 Approved by: Lencho Brock M.D. on 03/07/2019 at 17:42
[2019-03-07 17:31] LABS: Add Manual Diff / Slide Review NO; Basophils Absolute Auto 100 /uL (0-100); Basophils Percent Auto 0.4 % (0-2); Eosinophils Absolute Auto 500 /uL (0-450); Eosinophils Percent Auto 3.6 % (2-4); Hemoglobin 11.1 g/dL (13.5-17.5); Lymphocytes Absolute Auto 1400 /uL (1100-4500); Lymphocytes Percent Auto 9.6 % (25-40); Mean Corpuscular HGB Conc 33.6 % (30-36); Mean Corpuscular Hemoglobin 29.4 PG (26-34); Mean Corpuscular Volume 87.3 fL (80-100); Monocytes Absolute Auto 1000 /uL (0-900); Monocytes Percent Auto 6.8 % (3-14); Neutrophils Absolute Auto 11900 /uL (1500-7000); Neutrophils Percent Auto 79.6 % (50-75); Platelet Count 434 X10^3/uL (150-400); Red Blood Cell Count 3.78 X10^6/uL (4.5-5.9)
[2019-03-07 17:38] LABS: Alanine Aminotransferase 53 IU/L (<50); Albumin 3.9 g/dL (3.5-5.0); Albumin Globulin Ratio 1.3 (1.0-2.8); Alkaline Phosphatase 186 U/L (38-126); Aspartate Aminotransferase 53 IU/L (17-59); BUN Creatinine Ratio 23.8 (6-22); Bilirubin Total 0.4 mg/dL (0.2-1.3); Blood Urea Nitrogen 19 mg/dL (9-20); Calcium 8.9 mg/dL (8.4-10.2); Carbon Dioxide 30 mmol/L (22-32); Chloride 100 mmol/L (98-107); Estimated Glomerular Filt Rate > 60.0 mL/min (>60); Globulin 3.1 g/dL (1.7-4.1); Glucose 295 mg/dL (80-110); HEMOLYSIS < 15 (0-50); Potassium 4.3 mmol/L (3.4-5.1); Sodium 137 mmol/L (137-145)
[2019-03-07] MEDS: SODIUM CHLORIDE 0.9% 1,000 ML 200 ML IV (17:59)
[2019-03-07 18:04] LABS: Procalcitonin < 0.05 ng/mL (<0.5)
[2019-03-07 18:30] VITALS: BP 146/68; PULSE 81; RESP 12; O2SAT 99
--- NOTE | 2019-03-07 18:53 | ED.FEVER ---
HPI - Fever <BOO Dorman - Last Filed: 03/07/19 22:50> General Chief Complaint: Fever Stated Complaint: Chills, recently hospitalized Time Seen by Provider: 03/07/19 17:22 Source: patient Mode of arrival: Ambulatory Limitations: physical limitation History of Present Illness HPI Narrative: This is a 63-year-old male, smoker, who presents to ED from [facility] with chills and increased right leg swelling. Patient denies pain on affected leg, fever, nausea or vomiting. Patient recently was admitted on 03/02/19 with cellulitis and altered mental status and hospitalized for 4 days and was treated with IV antibiotic medications of vancomycin discharged back to the facility. Blood culture came back positive for only 1 set with Staphylococcus epidermis. Patient is nonambulatory and uses a power chair for mobility. Patient currently takes Doxycycline and Cefdnir for cellulitis treatment. Related Data Home Medications Medication Instructions Recorded Confirmed Maalox Maximum Strength 30 ml PO Q4H PRN #0 06/29/17 03/07/19 acetaminophen 650 mg PO Q4HP PRN #0 06/29/17 03/07/19 atorvastatin 80 mg PO BEDTIME #0 06/29/17 03/07/19 bisacodyl 10 mg IA PRN PRN #0 06/29/17 03/07/19 bisacodyl [Fleet Laxative] 10 mg PO PRN PRN #0 06/29/17 03/07/19 clopidogrel 75 mg PO DAILY #0 06/29/17 03/07/19 levothyroxine 50 mcg PO QPM #0 06/29/17 03/07/19 metoprolol succinate [Toprol XL] 12.5 mg PO DAILY #0 06/29/17 03/07/19 omeprazole 20 mg PO DAILY #0 06/29/17 03/07/19 sennosides [senna] 17.2 mg PO BEDTIME #0 06/29/17 03/07/19 artifi.tears(hypromellose)(PF) 0.3 2 drp EYE-BOTH BID ml 11/25/17 03/07/19 % eye drops baclofen 10 mg tablet 10 mg PO TID 11/25/17 03/07/19 insulin aspart U-100 100 unit/mL 100 unit SUBCUT QID 11/25/17 03/07/19 (3 mL) subcutaneous pen docusate sodium 2 tab PO BID 03/05/18 03/07/19 magnesium hydroxide [Milk of 30 ml PO PRN PRN 03/05/18 03/07/19 Magnesia] ammonium lactate 1 applic TOPICAL BID PRN 08/13/18 03/07/19 calcium carbonate 1,200 mg PO QPM 08/13/18 03/07/19 cholecalciferol (vitamin D3) 1,000 unit PO QPM 08/13/18 03/07/19 fluticasone propionate 1 spray INTRANASAL BID 08/13/18 03/07/19 guaifenesin [Mucinex] 600 mg PO Q12H 08/13/18 03/07/19 hydroxyzine pamoate 25 - 50 mg PO Q6H PRN 08/13/18 03/07/19 insulin glargine 8 unit SUBCUT BID 08/13/18 03/07/19 mirtazapine 22.5 mg PO BEDTIME 08/13/18 03/07/19 ondansetron 4 mg PO Q4H PRN 08/13/18 03/07/19 vitamin B complex [B 1 tab PO QPM 08/13/18 03/07/19 Complex-Vitamin B12] cetirizine 10 mg PO DAILY PRN 01/25/19 03/07/19 sodium chloride [Saline Mist] 1 spray INTRANASAL Q6H PRN 01/25/19 03/07/19 aspirin 325 mg PO DAILY 02/20/19 03/07/19 furosemide 40 mg PO DAILY 02/20/19 03/07/19 Glucagon Emergency Kit (human) 1 mg IM PRN PRN MDD ` 03/02/19 03/07/19 duloxetine 60 mg PO BEDTIME 03/02/19 03/07/19 nystatin 1 applic TOPICAL BID PRN 03/02/19 03/07/19 Alcohol Liquor 1 ea PO DAILY PRN 03/07/19 03/07/19 Health Shake 1 ea PO QPM 03/07/19 03/07/19 bisacodyl 5 mg PO PRN PRN 03/07/19 03/07/19 cefdinir 300 mg PO BIDX4D 03/07/19 03/07/19 dextromethorphan polistirex 10 ml PO Q12H PRN 03/07/19 03/07/19 [Delsym 12 hour] doxycycline hyclate 100 mg PO BIDX4D 03/07/19 03/07/19 ibuprofen 400 mg PO Q4H PRN 03/07/19 03/07/19 oxycodone 5 mg PO Q4H PRN 03/07/19 03/07/19 Previous Rx's Medication Instructions Recorded clonazepam 0.75 mg PO Q6H PRN #20 tab 03/05/19 oxycodone [OxyContin] 20 mg PO Q8H #20 tab 03/05/19 Allergies Allergy/AdvReac Type Severity Reaction Status Date / Time codeine [CODEINE] AdvReac Unknown nausea Verified 01/25/19 20:27 Review of Systems <BOO Dorman - Last Filed: 03/07/19 22:50> Review of Systems Narrative: General: Reports chills. Denies fever, fatigue, malaise, sweats. HEENT: Denies sinus pain, ear pain, sore throat, difficulty swallowing, dizziness. Respiratory: Denies dyspnea, cough, wheezing, hemoptysis, sputum. Cardiovascular: Denies chest pain, palpitations, orthopnea, edema. Gastrointestinal: Denies nausea, vomiting, abdominal pain, diarrhea, constipation, melena. : Denies dysuria, frequency, incontinence, hematuria, urinary retention. Musculoskeletal: See HPI Skin: Denies rash, skin lesions, or other. Neurologic: Denies weakness, headache, numbness, change in speech, confusion, seizures, incoordination. Psychiatric: No concerning psychosocial issues. 12-point review of systems is negative except for those stated above. Patient History <BOO Dorman - Last Filed: 03/07/19 22:50> Medical History C3 spinal cord injury (Acute) C4 spinal cord injury (Acute) CVA (cerebral vascular accident) (Acute) Diabetes (Acute) Gastroesophageal reflux disease (Acute) Hyperlipidemia (Acute) Hypertension (Acute) Surgical History History of carotid endarterectomy (Acute) History of coronary artery stent placement (Acute) No pertinent past surgical history (Acute) Family History Mother Cancer Father Lung disease Hyperlipidemia Brother Lupus Social History household members: caregiver Smoking Status: Current every day smoker alcohol intake: current substance use type: does not use additional social history: He currently resides in He currently resides in [facility]. tobacco type: cigarettes alcohol intake frequency: a few times a week Substance Use Type: does not use Exam <BOO Dorman - Last Filed: 03/07/19 22:50> Narrative Exam Narrative: GEN: Alert, oriented x 3, well nourished, and in no acute distress. Head: Normal cephalic, atraumatic. No scalp or temporal tenderness, palpable mass or rash. EYES: Pupils are equal, round, and reactive to light and accommodation. Extraocular muscles are intact bilaterally. There is no subconjunctival hemorrhage, exudate and sclera non-icteric. ENT: Hearing grossly intact. Nose without bleeding, purulent discharge or deviation. Facial sinuses nontender to palpate. Mucous membrane moist, no mucosal lesion. Throat without erythema, tonsillar hypertrophy or exudate. Uvula in midline, airway patent. Neck: Trachea in midline. No JVD, non-tender without lymphadenopathy. No masses or thyroid megaly. Supple, non-tender and no meningeal signs. CARDIAC: Normal regular rate and rhythm without murmurs, gallops, or rubs. No chest wall tenderness. No peripheral edema, cyanosis or pallor. Capillary refill is less than 2 seconds. RESPIRATORY: Lungs are clear to auscultate bilaterally. No cough, wheezes, rales, or rhonchi. No stridor, respiratory distress, increase work of breathing, or accessary muscle used. ABD: Abdomen soft, nontender and non-distended. No guarding or rebound tenderness to palpate. Bowel sounds are normal in all 4 quadrants. There is no palpable masses or organomegaly. SKIN: Mild warmth arm, dry, normal color for patient. No demarcation, erythema in bilateral lower extremity. Patient has multiple dried scab on bilateral lower extremities without drainage. NEUROLOGICAL: Alert and oriented to place, time and person. Sensation and motor function intact bilaterally. No facial droops, dysphasia. PSYCHIATRIC: Good judgement and reason, without hallucinations, abnormal affect or abnormal behaviors during the examination. Initial Vital Signs Initial Vital Signs: Vital Signs Temperature 98.9 F 03/07/19 16:13 Pulse Rate 89 03/07/19 16:13 Respiratory Rate 18 03/07/19 16:13 Blood Pressure 144/115 H 03/07/19 16:13 Pulse Oximetry 100 03/07/19 16:13 Extrem Left lower extremity: lower leg (Denies calf pain or swelling) Details: erythema (diffused w/o demarcation), non-pitting edema (diffused) and other (Multiple dry scab lesions in anterior solano.); no tenderness and foot (Foot drops) Details: toes with normal ROM, warmth (Mild warmed diffused), edema Location: diffusely, vascular exam Details: dorsalis pedis pulse present and motor-sensory exam Details: light-touch normal; no tenderness <Taye Lund DO - Last Filed: 03/07/19 22:57> Initial Vital Signs Initial Vital Signs: Vital Signs Temperature 98.9 F 03/07/19 16:13 Pulse Rate 89 03/07/19 16:13 Respiratory Rate 18 03/07/19 16:13 Blood Pressure 144/115 H 03/07/19 16:13 Pulse Oximetry 100 03/07/19 16:13 Scores <BOO Dorman - Last Filed: 03/07/19 22:50> GCS Jr coma scale eye opening: Spontaneous [place] coma scale verbal response: Orientated Jr coma scale motor response: Obey commands Jr coma scale total score: 15 Course <BOO Dorman Last Filed: 03/07/19 22:50> Orders Ordered: ED Orders 03/07/19 16:25 Complete Blood Count AUTO DIFF Stat Comprehensive Metabolic Panel Stat Lactate (Lactic Acid) Stat Procalcitonin Stat 03/07/19 17:24 XR chest 1V Stat 03/07/19 17:52 Blood Culture Stat Discontinued Medications Sodium Chloride (Normal Saline 0.9%) 1,000 mls @ 200 mls/hr IV CONT EUGENE Last Infusion: 03/07/19 20:45 Dose: 0 mls/hr Documented by: Admin: 03/07/19 17:59 Dose: 200 mls/hr Documented by: IVY Consultations Consultation #1: SWATI Selby contacted for possible admission for observation as SWATI Canas at the [place] requested but informed that patient is not meeting the criteria for an admission at this time. Vital Signs Vital signs: Vital Signs - 8 hr 03/07/19 16:13 03/07/19 18:30 03/07/19 20:00 Temperature 98.9 F Pulse Rate 89 81 83 Respiratory Rate 18 12 16 Blood Pressure 144/115 H Blood Pressure [Right Arm] 146/68 H 161/80 H Pulse Oximetry 100 99 99 <Taye Lund DO - Last Filed: 03/07/19 22:57> Orders Ordered: ED Orders 03/07/19 16:25 Complete Blood Count AUTO DIFF Stat Comprehensive Metabolic Panel Stat Lactate (Lactic Acid) Stat Procalcitonin Stat 03/07/19 17:24 XR chest 1V Stat 03/07/19 17:52 Blood Culture Stat Discontinued Medications Sodium Chloride (Normal Saline 0.9%) 1,000 mls @ 200 mls/hr IV CONT EUGENE Last Infusion: 03/07/19 20:45 Dose: 0 mls/hr Documented by: Admin: 03/07/19 17:59 Dose: 200 mls/hr Documented by: IVY Vital Signs Vital signs: Vital Signs - 8 hr 03/07/19 16:13 03/07/19 18:30 03/07/19 20:00 Temperature 98.9 F Pulse Rate 89 81 83 Respiratory Rate 18 12 16 Blood Pressure 144/115 H Blood Pressure [Right Arm] 146/68 H 161/80 H Pulse Oximetry 100 99 99 MDM - Fever <BOO Dorman - Last Filed: 03/07/19 22:50> Differential Diagnosis Differential diagnosis: Likely cellulitis Medical Records Attestation: I reviewed the patient's medical records. Lab Data Attestation: I reviewed the patient's lab results. Result diagrams: 03/07/19 16:25 03/07/19 16:25 Labs: Lab Results 03/07/19 03/07/19 03/07/19 Range/Units 16:25 16:25 16:25 WBC 15.0 H (4.5-11.0) X10^3/uL RBC 3.78 L (4.5-5.9) X10^6/uL Hgb 11.1 L (13.5-17.5) g/dL Hct 33.0 L (41-53) % MCV 87.3 (80-100) fL MCH 29.4 (26-34) PG MCHC 33.6 (30-36) % RDW 14.0 (11.6-14.8) % Plt Count 434 H (150-400) X10^3/uL Neut % (Auto) 79.6 H (50-75) % Lymph % (Auto) 9.6 L (25-40) % [place] % (Auto) 6.8 (3-14) % Eos % (Auto) 3.6 (2-4) % Baso % (Auto) 0.4 (0-2) % Neut # (Auto) 57158 H (0518-5423) /uL Lymph # (Auto) 1400 (7619-5104) /uL [place] # (Auto) 1000 H (0-900) /uL Eos # (Auto) 500 H (0-450) /uL Baso # (Auto) 100 (0-100) /uL Sodium 137 (137-145) mmol/L Potassium 4.3 (3.4-5.1) mmol/L Chloride 100 (98-107) mmol/L Carbon Dioxide 30 (22-32) mmol/L BUN 19 (9-20) mg/dL Creatinine 0.80 (0.66-1.25) mg/dL Estimated GFR > 60.0 (>60) mL/min BUN/Creatinine Ratio 23.8 H (6-22) Glucose 295 H (80-110) mg/dL Lactate (0.7-2.1) mmol/L Calcium 8.9 (8.4-10.2) mg/dL Total Bilirubin 0.4 (0.2-1.3) mg/dL AST 53 (17-59) IU/L ALT 53 H (<50) IU/L Alkaline Phosphatase 186 H (38-126) U/L Total Protein 7.0 (6.3-8.2) g/dL Albumin 3.9 (3.5-5.0) g/dL Globulin 3.1 (1.7-4.1) g/dL Albumin/Globulin Ratio 1.3 (1.0-2.8) Procalcitonin < 0.05 (<0.5) ng/mL 03/07/19 Range/Units 16:25 WBC (4.5-11.0) X10^3/uL RBC (4.5-5.9) X10^6/uL Hgb (13.5-17.5) g/dL Hct (41-53) % MCV (80-100) fL MCH (26-34) PG MCHC (30-36) % RDW (11.6-14.8) % Plt Count (150-400) X10^3/uL Neut % (Auto) (50-75) % Lymph % (Auto) (25-40) % [place] % (Auto) (3-14) % Eos % (Auto) (2-4) % Baso % (Auto) (0-2) % Neut # (Auto) (2843-4628) /uL Lymph # (Auto) (8279-4569) /uL [place] # (Auto) (0-900) /uL Eos # (Auto) (0-450) /uL Baso # (Auto) (0-100) /uL Sodium (137-145) mmol/L Potassium (3.4-5.1) mmol/L Chloride (98-107) mmol/L Carbon Dioxide (22-32) mmol/L BUN (9-20) mg/dL Creatinine (0.66-1.25) mg/dL Estimated GFR (>60) mL/min BUN/Creatinine Ratio (6-22) Glucose (80-110) mg/dL Lactate 1.0 (0.7-2.1) mmol/L Calcium (8.4-10.2) mg/dL Total Bilirubin (0.2-1.3) mg/dL AST (17-59) IU/L ALT (<50) IU/L Alkaline Phosphatase (38-126) U/L Total Protein (6.3-8.2) g/dL Albumin (3.5-5.0) g/dL Globulin (1.7-4.1) g/dL Albumin/Globulin Ratio (1.0-2.8) Procalcitonin (<0.5) ng/mL Urine Dip Bedside Urine Glucose 2000+ mg/dl Bedside Urine Bilirubin - Negative Bedside Urine Ketone - Negative Urine Specific [place] 1,015 Bedside Urine Occult Blood - Negative Bedside Urine pH 6.0 Bedside Urine Protein - Negative Bedside Urine Urobilinogen - Negative Bedside Urine Nitrite - Negative Bedside Urine Leukocytes - Negative Esterase MDM Narrative Medical decision making narrative: This is a 63-year-old gentleman with multiple medical history who presents to ED for an evaluation for chills right leg swelling. Patient was admitted on 03/02/19 with cellulitis on lower extremity and altered mental status and discharged to home on 03/05/19 with Cefdnir and Doxy to treat cellulitis. Patient denies leg pain, there is no obvious demarcation on right lower leg, mild warmth to touch. Patient has multiple healing dry lesions on anterior solano without drainage or obvious infection or on the site. Patient denies nausea or vomiting and is able to tolerate medications and food. Elevated WBC of 15 [place] [address] today with normal lactate and procalcitonin. Glucose was elevated and patient has history of insulin-dependent diabetes. Today's liver function was mildly elevated. Patient and normal saline infusion while in ED. Offered snacks and sandwich which he tolerated well. Patient was gently hydrated with normal saline. Patient's vital signs has been stable while in the ED without afebrile. Findings were discussed with [facility] SWATI Benitez and also the hospitalist Sola but the patient is not meeting the criteria for admission for observation. SWATI Benitez contacted again to inform patient will be discharged from ED back to the facility needs close follow-up and return precautions were discussed. Informed the patient on findings and plan and patient verbalized understanding and agrees with treatment plan. <Taye uLnd, DO - Last Filed: 03/07/19 22:57> Lab Data Labs: Lab Results 03/07/19 03/07/19 03/07/19 Range/Units 16:25 16:25 16:25 WBC 15.0 H (4.5-11.0) X10^3/uL RBC 3.78 L (4.5-5.9) X10^6/uL Hgb 11.1 L (13.5-17.5) g/dL Hct 33.0 L (41-53) % MCV 87.3 (80-100) fL MCH 29.4 (26-34) PG MCHC 33.6 (30-36) % RDW 14.0 (11.6-14.8) % Plt Count 434 H (150-400) X10^3/uL Neut % (Auto) 79.6 H (50-75) % Lymph % (Auto) 9.6 L (25-40) % [place] % (Auto) 6.8 (3-14) % Eos % (Auto) 3.6 (2-4) % Baso % (Auto) 0.4 (0-2) % Neut # (Auto) 69214 H (0789-5846) /uL Lymph # (Auto) 1400 (6940-8189) /uL [place] # (Auto) 1000 H (0-900) /uL Eos # (Auto) 500 H (0-450) /uL Baso # (Auto) 100 (0-100) /uL Sodium 137 (137-145) mmol/L Potassium 4.3 (3.4-5.1) mmol/L Chloride 100 (98-107) mmol/L Carbon Dioxide 30 (22-32) mmol/L BUN 19 (9-20) mg/dL Creatinine 0.80 (0.66-1.25) mg/dL Estimated GFR > 60.0 (>60) mL/min BUN/Creatinine Ratio 23.8 H (6-22) Glucose 295 H (80-110) mg/dL Lactate (0.7-2.1) mmol/L Calcium 8.9 (8.4-10.2) mg/dL Total Bilirubin 0.4 (0.2-1.3) mg/dL AST 53 (17-59) IU/L ALT 53 H (<50) IU/L Alkaline Phosphatase 186 H (38-126) U/L Total Protein 7.0 (6.3-8.2) g/dL Albumin 3.9 (3.5-5.0) g/dL Globulin 3.1 (1.7-4.1) g/dL Albumin/Globulin Ratio 1.3 (1.0-2.8) Procalcitonin < 0.05 (<0.5) ng/mL 03/07/19 Range/Units 16:25 WBC (4.5-11.0) X10^3/uL RBC (4.5-5.9) X10^6/uL Hgb (13.5-17.5) g/dL Hct (41-53) % MCV (80-100) fL MCH (26-34) PG MCHC (30-36) % RDW (11.6-14.8) % Plt Count (150-400) X10^3/uL Neut % (Auto) (50-75) % Lymph % (Auto) (25-40) % [place] % (Auto) (3-14) % Eos % (Auto) (2-4) % Baso % (Auto) (0-2) % Neut # (Auto) (4323-4829) /uL Lymph # (Auto) (2560-1248) /uL [place] # (Auto) (0-900) /uL Eos # (Auto) (0-450) /uL Baso # (Auto) (0-100) /uL Sodium (137-145) mmol/L Potassium (3.4-5.1) mmol/L Chloride (98-107) mmol/L Carbon Dioxide (22-32) mmol/L BUN (9-20) mg/dL Creatinine (0.66-1.25) mg/dL Estimated GFR (>60) mL/min BUN/Creatinine Ratio (6-22) Glucose (80-110) mg/dL Lactate 1.0 (0.7-2.1) mmol/L Calcium (8.4-10.2) mg/dL Total Bilirubin (0.2-1.3) mg/dL AST (17-59) IU/L ALT (<50) IU/L Alkaline Phosphatase (38-126) U/L Total Protein (6.3-8.2) g/dL Albumin (3.5-5.0) g/dL Globulin (1.7-4.1) g/dL Albumin/Globulin Ratio (1.0-2.8) Procalcitonin (<0.5) ng/mL Urine Dip Bedside Urine Glucose 2000+ mg/dl Bedside Urine Bilirubin - Negative Bedside Urine Ketone - Negative Urine Specific [place] 1,015 Bedside Urine Occult Blood - Negative Bedside Urine pH 6.0 Bedside Urine Protein - Negative Bedside Urine Urobilinogen - Negative Bedside Urine Nitrite - Negative Bedside Urine Leukocytes - Negative Esterase Discharge Plan Departure Patient Disposition: Home Clinical Impression: Cellulitis of leg, right Discharge Date/Time: 03/07/19 21:45 Activity Restrictions/Additional Instructions: You have been diagnosed with [chills and history of cellulitis on right lower leg. Vital signs have been stable while in ED without fever. Moderately elevated white blood cell counts but with normal lactate and procalcitonin. Unremarkable chemistry test except the blood glucose. You do not have pain on right leg. You're able to tolerate sandwiches and drinks without nausea or vomiting]. What to do: *Take your medications as directed. Please continue with your antibiotic medications and Tylenol as needed for fever or discomfort *Follow up with your primary care provider in 2-3 days, call for an appointment. Let them know you were seen in the ED and that we asked you to be seen in follow up. *Return to ED if you have any new, worsening, or concerning symptoms, such as [fever, chest pain, breathing difficulty, unable to tolerate fluids, increasing leg pain, feeling weak and fainting, or any acute concerns]. Prescriptions: No Action atorvastatin 80 MG tablet 80 mg PO BEDTIME Qty: 0 RF: 0 clopidogrel 75 MG tablet 75 mg PO DAILY Qty: 0 RF: 0 levothyroxine 50 MCG tablet 50 mcg PO QPM Qty: 0 RF: 0 metoprolol succinate [Toprol XL] 25 MG tablet extended release 24 hr 12.5 mg PO DAILY Qty: 0 RF: 0 sennosides [senna] 8.6 MG tablet 17.2 mg PO BEDTIME Qty: 0 RF: 0 acetaminophen 325 MG tablet 650 mg PO Q4HP PRN (Reason: Fever Or Pain) Qty: 0 RF: 0 omeprazole 20 MG capsule,delayed release(DR/EC) 20 mg PO DAILY Qty: 0 RF: 0 bisacodyl 10 MG suppository 10 mg IA PRN PRN (Reason: Constipation) Qty: 0 RF: 0 bisacodyl [Fleet Laxative] 5 MG tablet,delayed release (DR/EC) 10 mg PO PRN PRN (Reason: no BM x 3 days ) Qty: 0 RF: 0 Maalox Maximum Strength 355 ML suspension 30 ml PO Q4H PRN (Reason: gi upset) Qty: 0 RF: 0 magnesium hydroxide [Milk of Magnesia] 400 mg/5 mL Suspension 30 ml PO PRN PRN (Reason: Constipation) RF: 0 docusate sodium 100 mg Capsule 2 tab PO BID RF: 0 aspirin 325 mg Tablet,Delayed Release (Dr/Ec) 325 mg PO DAILY RF: 0 furosemide 40 mg tablet 40 mg PO DAILY RF: 0 calcium carbonate 600 mg calcium (1,500 mg) Tablet 1,200 mg PO QPM RF: 0 vitamin B complex [B Complex-Vitamin B12] Tablet 1 tab PO QPM RF: 0 mirtazapine 15 mg Tablet 22.5 mg PO BEDTIME RF: 0 fluticasone propionate 50 mcg/actuation [place],Suspension 1 spray INTRANASAL BID RF: 0 cholecalciferol (vitamin D3) 1,000 unit Capsule 1,000 unit PO QPM RF: 0 hydroxyzine pamoate 25 mg Capsule 25 - 50 mg PO Q6H PRN (Reason: pain/spasms) RF: 0 insulin glargine 100 unit/mL (3 mL) Insulin Pen 8 unit SUBCUT BID RF: 0 ondansetron 4 mg Tablet,Disintegrating 4 mg PO Q4H PRN (Reason: Nausea) RF: 0 ammonium lactate 12 % Lotion 1 applic TOPICAL BID PRN (Reason: Dry Skin) RF: 0 guaifenesin [Mucinex] 600 mg Tablet Extended Release 12hr 600 mg PO Q12H RF: 0 cetirizine 10 mg Tablet 10 mg PO DAILY PRN (Reason: allergies) RF: 0 sodium chloride [Saline Mist] 0.65 % Aerosol,[place] 1 spray INTRANASAL Q6H PRN (Reason: Congestion) RF: 0 Glucagon Emergency Kit (human) 1 mg Recon Soln 1 mg IM PRN MDD ` PRN (Reason: blood glucose <60) RF: 0 duloxetine 60 mg capsule,delayed release(DR/EC) 60 mg PO BEDTIME RF: 0 nystatin 100,000 unit/gram Cream 1 applic TOPICAL BID PRN (Reason: yeast) RF: 0 oxycodone [OxyContin] 20 mg Tablet,Oral Only,Ext.Rel.12 Hr 20 mg PO Q8H Qty: 20 RF: 0 clonazepam 0.5 mg tablet 0.75 mg PO Q6H PRN (Reason: Anxiety) Qty: 20 RF: 0 Health Shake 1 ea PO QPM RF: 0 Alcohol Liquor 1 ea PO DAILY PRN (Reason: life enjoyment) RF: 0 dextromethorphan polistirex [Delsym 12 hour] 30 mg/5 mL Suspension,Extended Rel 12 Hr 10 ml PO Q12H PRN (Reason: Cough) RF: 0 ibuprofen 400 mg Tablet 400 mg PO Q4H PRN (Reason: pain) RF: 0 bisacodyl 5 mg Tablet,Delayed Release (Dr/Ec) 5 mg PO PRN PRN (Reason: no BM x 2 days) RF: 0 oxycodone 5 mg tablet 5 mg PO Q4H PRN (Reason: pain) RF: 0 doxycycline hyclate 100 mg capsule 100 mg PO [id number] RF: 0 cefdinir 300 mg capsule 300 mg PO [id number] RF: 0 insulin aspart U-100 [Novolog Flexpen U-100 Insulin] 100 unit/mL insulin pen 100 unit SUBCUT QID RF: 0 baclofen 10 mg tablet 10 mg PO TID RF: 0 artifi.tears(hypromellose)(PF) 0.3 % drops 2 drp EYE-BOTH BID RF: 0 Referrals: Linda Denise MD [Primary Care Provider] - <Taye Lund DO - Last Filed: 03/07/19 22:57> Sign Out Provider Sign Out Attestation: Dr Lund Co-Sign Statement: I was available for consultation during this patient's emergency department visit. This chart is signed by myself for administrative purposes only. I did not have direct contact with this patient during this visit. They were seen independently by the APC.
[2019-03-07 20:00] VITALS: BP 161/80; PULSE 83; RESP 16; O2SAT 99
== END 2019-03-07 21:45 | disposition home or self-care (01) ==
PROVIDERS: Emergency Provider Nurse Practitioner Family; Family Provider Nurse Practitioner Family; PCP Internal Medicine
DX: L03.115 Cellulitis of right lower limb (principal)
CPT/HCPCS: 36415; 71045; 80053; 81003; 83605; 84145; 85025; 87040; 96360; 96361; 99283; 99284

== ENCOUNTER → 2019-03-09 08:13 | Outpatient (ROUT) | payer MEDICARE, MEDICAID, SELFPAY ==
[2019-03-02 18:01] VITALS: BMI 27.4
[2019-03-09 08:52] LABS: Add Manual Diff / Slide Review NO; Basophils Absolute Auto 100 /uL (0-100); Basophils Percent Auto 0.7 % (0-2); Eosinophils Absolute Auto 700 /uL (0-450); Eosinophils Percent Auto 6.4 % (2-4); Hematocrit 35.1 % (41-53); Hemoglobin 11.7 g/dL (13.5-17.5); Lymphocytes Absolute Auto 2400 /uL (1100-4500); Lymphocytes Percent Auto 22.2 % (25-40); Mean Corpuscular HGB Conc 33.3 % (30-36); Mean Corpuscular Hemoglobin 29.4 PG (26-34); Mean Corpuscular Volume 88.1 fL (80-100); Monocytes Absolute Auto 700 /uL (0-900); Monocytes Percent Auto 6.7 % (3-14); Neutrophils Absolute Auto 6900 /uL (1500-7000); Platelet Count 522 X10^3/uL (150-400); Red Blood Cell Count 3.99 X10^6/uL (4.5-5.9); Red Cell Distribution Width 14.4 % (11.6-14.8); White Blood Cell Count 10.8 X10^3/uL (4.5-11.0)
[2019-03-09 09:18] LABS: BUN Creatinine Ratio 21.4 (6-22); Blood Urea Nitrogen 15 mg/dL (9-20); Calcium 9.3 mg/dL (8.4-10.2); Carbon Dioxide 29 mmol/L (22-32); Chloride 98 mmol/L (98-107); Estimated Glomerular Filt Rate > 60.0 mL/min (>60); Glucose 285 mg/dL (80-110); HEMOLYSIS < 15 (0-50); Potassium 4.2 mmol/L (3.4-5.1); Sodium 138 mmol/L (137-145)
== END ==
PROVIDERS: Family Provider Nurse Practitioner Family; PCP Internal Medicine; Visit Provider Nurse Practitioner Family
DX: L03.90 Cellulitis, unspecified (principal); E10.9 Type 1 diabetes mellitus without complications
CPT/HCPCS: 36415; 80048; 85025

== ENCOUNTER → 2019-03-20 13:07 | Outpatient (CLI) | payer MEDICARE, MEDICAID, SELFPAY ==
[2019-03-02 18:01] VITALS: BMI 27.4
== END ==
PROVIDERS: Family Provider Nurse Practitioner Family; PCP Internal Medicine; Visit Provider Podiatrist Primary Podiatric Medicine
DX: E10.621 Type 1 diabetes mellitus with foot ulcer (principal); L97.519 Non-pressure chronic ulcer of other part of right foot with unspecified severity
CPT/HCPCS: 99212; 99214

== ENCOUNTER → 2019-03-23 07:39 | Outpatient (ROUT) | payer MEDICARE, MEDICAID, SELFPAY ==
[2019-03-02 18:01] VITALS: BMI 27.4
[2019-03-23 08:03] LABS: Add Manual Diff / Slide Review NO; Basophils Absolute Auto 100 /uL (0-100); Basophils Percent Auto 0.7 % (0-2); Eosinophils Absolute Auto 600 /uL (0-450); Eosinophils Percent Auto 5.2 % (2-4); Hematocrit 35.9 % (41-53); Hemoglobin 12.3 g/dL (13.5-17.5); Lymphocytes Absolute Auto 2100 /uL (1100-4500); Lymphocytes Percent Auto 20.2 % (25-40); Mean Corpuscular HGB Conc 34.4 % (30-36); Mean Corpuscular Hemoglobin 29.7 PG (26-34); Mean Corpuscular Volume 86.5 fL (80-100); Monocytes Absolute Auto 900 /uL (0-900); Monocytes Percent Auto 8.7 % (3-14); Neutrophils Absolute Auto 6900 /uL (1500-7000); Neutrophils Percent Auto 65.2 % (50-75); Platelet Count 442 X10^3/uL (150-400); Red Blood Cell Count 4.15 X10^6/uL (4.5-5.9); White Blood Cell Count 10.6 X10^3/uL (4.5-11.0)
== END ==
PROVIDERS: Family Provider Nurse Practitioner Family; PCP Internal Medicine; Visit Provider Internal Medicine
DX: L03.90 Cellulitis, unspecified (principal)
CPT/HCPCS: 36415; 85025

== ENCOUNTER → 2019-04-04 08:05 | Outpatient (ROUT) | payer MEDICARE, MEDICAID, SELFPAY ==
[2019-03-02 18:01] VITALS: BMI 27.4
[2019-04-04 08:50] LABS: Add Manual Diff / Slide Review NO; Basophils Absolute Auto 100 /uL (0-100); Basophils Percent Auto 0.9 % (0-2); Eosinophils Absolute Auto 700 /uL (0-450); Eosinophils Percent Auto 7.7 % (2-4); Hematocrit 34.3 % (41-53); Hemoglobin 11.5 g/dL (13.5-17.5); Lymphocytes Absolute Auto 2100 /uL (1100-4500); Lymphocytes Percent Auto 24.8 % (25-40); Mean Corpuscular HGB Conc 33.4 % (30-36); Mean Corpuscular Hemoglobin 28.6 PG (26-34); Mean Corpuscular Volume 85.7 fL (80-100); Monocytes Absolute Auto 800 /uL (0-900); Monocytes Percent Auto 8.9 % (3-14); Neutrophils Absolute Auto 5000 /uL (1500-7000); Neutrophils Percent Auto 57.7 % (50-75); Platelet Count 293 X10^3/uL (150-400); Red Cell Distribution Width 14.1 % (11.6-14.8); White Blood Cell Count 8.6 X10^3/uL (4.5-11.0)
[2019-04-04 09:05] LABS: Alanine Aminotransferase 25 IU/L (<50); Albumin 3.8 g/dL (3.5-5.0); Albumin Globulin Ratio 1.5 (1.0-2.8); Alkaline Phosphatase 133 U/L (38-126); Aspartate Aminotransferase 29 IU/L (17-59); BUN Creatinine Ratio 26.2 (6-22); Bilirubin Total 0.4 mg/dL (0.2-1.3); Blood Urea Nitrogen 34 mg/dL (9-20); Calcium 8.9 mg/dL (8.4-10.2); Carbon Dioxide 32 mmol/L (22-32); Chloride 103 mmol/L (98-107); Estimated Glomerular Filt Rate 55.8 mL/min (>60); Globulin 2.6 g/dL (1.7-4.1); Glucose 122 mg/dL (80-110); HEMOLYSIS < 15 (0-50); Potassium 4.4 mmol/L (3.4-5.1); Sodium 141 mmol/L (137-145); Total Protein 6.4 g/dL (6.3-8.2)
== END ==
PROVIDERS: Family Provider Nurse Practitioner Family; PCP Internal Medicine; Visit Provider Internal Medicine
DX: R53.1 Weakness (principal); N19 Unspecified kidney failure
CPT/HCPCS: 36415; 80053; 85025

== ENCOUNTER → 2019-04-18 08:39 | Outpatient (ROUT) | payer MEDICARE, MEDICAID, SELFPAY ==
[2019-03-02 18:01] VITALS: BMI 27.4
[2019-04-18 10:22] LABS: Add Manual Diff / Slide Review NO; Basophils Absolute Auto 100 /uL (0-100); Basophils Percent Auto 0.7 % (0-2); Eosinophils Absolute Auto 400 /uL (0-450); Eosinophils Percent Auto 4.6 % (2-4); Hematocrit 34.2 % (41-53); Hemoglobin 11.4 g/dL (13.5-17.5); Lymphocytes Absolute Auto 2100 /uL (1100-4500); Lymphocytes Percent Auto 22.8 % (25-40); Mean Corpuscular HGB Conc 33.2 % (30-36); Mean Corpuscular Hemoglobin 28.2 PG (26-34); Mean Corpuscular Volume 84.9 fL (80-100); Monocytes Absolute Auto 800 /uL (0-900); Monocytes Percent Auto 8.2 % (3-14); Neutrophils Absolute Auto 5900 /uL (1500-7000); Neutrophils Percent Auto 63.7 % (50-75); Platelet Count 364 X10^3/uL (150-400); Red Blood Cell Count 4.03 X10^6/uL (4.5-5.9); Red Cell Distribution Width 14.1 % (11.6-14.8); White Blood Cell Count 9.3 X10^3/uL (4.5-11.0)
[2019-04-18 10:51] LABS: BUN Creatinine Ratio 27.3 (6-22); Blood Urea Nitrogen 30 mg/dL (9-20); Calcium 8.8 mg/dL (8.4-10.2); Carbon Dioxide 30 mmol/L (22-32); Chloride 99 mmol/L (98-107); Estimated Glomerular Filt Rate > 60.0 mL/min (>60); Glucose 308 mg/dL (80-110); HEMOLYSIS < 15 (0-50); Sodium 134 mmol/L (137-145)
== END ==
PROVIDERS: Family Provider Nurse Practitioner Family; PCP Internal Medicine; Visit Provider Nurse Practitioner Family
DX: L03.90 Cellulitis, unspecified (principal); N17.9 Acute kidney failure, unspecified
CPT/HCPCS: 36415; 80048; 85025

== ENCOUNTER → 2019-04-27 10:34 | Outpatient (CLI) | payer MEDICARE, MEDICAID, SELFPAY ==
[2019-03-02 18:01] VITALS: BMI 27.4
--- NOTE | 2019-04-27 | DI.US.S_ITS ---
PROCEDURE: US ARTERIAL DUPLEX LE RT INDICATIONS: CELLULITIS TECHNIQUE: Color and pulse Doppler interrogation was performed of the right lower extremity arterial system, with image documentation. COMPARISON: [facility], US ARTERIAL DUPLEX LE RT, 08/14/2018, 1:20. [facility], , ARTERIAL LOW.EXTREM.BILATERAL, 08/13/2016, 13:26. FINDINGS: Common femoral artery: 336 cm/sec, with a monophasic flow. Deep femoral artery: 176 cm/sec, with monophasic flow. Proximal superficial femoral artery: 275 cm/sec, with monophasic flow. Mid superficial femoral artery: 81 cm/sec, with monophasic flow. Distal superficial femoral artery: 90 cm/sec, with monophasic flow. Popliteal artery: 100 cm/sec, with monophasic flow. A patent [id number] arterial stent is present in addition to the [place] vessel flow. Posterior tibial artery: Not visualized proximally but 47 cm and 49 cm/s through the middle and distal thirds with monophasic flow.. Anterior tibial artery/dorsalis pedis: 69-74 cm/sec, with monophasic flow. [place]ao-scale imaging description: Calcific and soft plaque is seen involving the lower extremity arterial vasculature throughout, with elevated flow velocities superiorly, and there is monophasic flow of the right lower extremity arterial vasculature indicating high-grade stenosis above the level of the common femoral artery (or occlusion with collateral flow reperfusing the lower pelvic arterial vasculature). 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 Note is made of patent bypass grafting from the femoral to the popliteal level supplementing [place] and [place] vessel flow. Depending on the clinical status followup by dedicated MR angiogram of the aorta, pelvic vasculature and runoff vessels may be warranted at this time. Dictated by: Harish Kumar M.D. on 04/27/2019 at 14:24 Approved by: Harish Kumar M.D. on 04/27/2019 at 14:30
== END ==
PROVIDERS: Family Provider Nurse Practitioner Family; PCP Internal Medicine; Visit Provider Registered Nurse
DX: L03.90 Cellulitis, unspecified (principal); I70.201 Unspecified atherosclerosis of native arteries of extremities, right leg
CPT/HCPCS: 93926

== ENCOUNTER → 2019-05-02 07:26 | Outpatient (ROUT) | payer MEDICARE, MEDICAID, SELFPAY ==
[2019-03-02 18:01] VITALS: BMI 27.4
[2019-05-02 08:13] LABS: BUN Creatinine Ratio 19.1 (6-22); Blood Urea Nitrogen 21 mg/dL (9-20); Calcium 8.4 mg/dL (8.4-10.2); Carbon Dioxide 30 mmol/L (22-32); Chloride 103 mmol/L (98-107); Estimated Glomerular Filt Rate > 60.0 mL/min (>60); Glucose 297 mg/dL (80-110); HEMOLYSIS < 15 (0-50); Sodium 138 mmol/L (137-145)
== END ==
PROVIDERS: Family Provider Nurse Practitioner Family; PCP Internal Medicine; Visit Provider Nurse Practitioner Family
DX: R60.9 Edema, unspecified (principal)
CPT/HCPCS: 36415; 80048

== ENCOUNTER → 2019-05-16 08:14 | Outpatient (ROUT) | payer MEDICARE, MEDICAID, SELFPAY ==
[2019-03-02 18:01] VITALS: BMI 27.4
[2019-05-16 09:02] LABS: BUN Creatinine Ratio 21.8 (6-22); Blood Urea Nitrogen 24 mg/dL (9-20); Calcium 9.1 mg/dL (8.4-10.2); Carbon Dioxide 31 mmol/L (22-32); Chloride 101 mmol/L (98-107); Estimated Glomerular Filt Rate > 60.0 mL/min (>60); Glucose 246 mg/dL (80-110); HEMOLYSIS < 15 (0-50); Potassium 4.3 mmol/L (3.4-5.1); Sodium 136 mmol/L (137-145)
== END ==
PROVIDERS: Family Provider Nurse Practitioner Family; PCP Internal Medicine; Visit Provider Nurse Practitioner Family
DX: R60.9 Edema, unspecified (principal)
CPT/HCPCS: 36415; 80048

== ENCOUNTER 2019-07-25 10:49 | Emergency (ER) | payer MEDICARE, MEDICAID, SELFPAY ==
[2019-03-02 18:01] VITALS: BMI 27.4
[2019-07-25 10:55] VITALS: BP 109/59; PULSE 89; RESP 14; TEMP 36.7; O2SAT 99; BMI 25.9
--- NOTE | 2019-07-25 11:01 | ED_ITS ---
HPI - Extremity Injury (Lower) General Chief Complaint: Extremity Injury, Lower Stated Complaint: RIGHT ANKLE INJURY Time Seen by Provider: 07/25/19 10:58 Source: patient Mode of arrival: Wheelchair Limitations: no limitations History of Present Illness HPI Narrative: Patient is a 64-year-old male. Has had multiple strokes in the past. Has weakness in his lower extremities. Spends most of his time in a motorized wheelchair. Last evening he was standing at home holding onto a chair trying to grab an extension cord when he lost his balance and fell over hitting his right ankle on a piece of furniture. Has had pain in that ankle since then. Has not put pressure on it however he rarely put pressure on his ankles because he rarely stands or walks. Has swelling in his right ankle but he states this is not new. Related Data Home Medications Medication Instructions Recorded Confirmed Maalox Maximum Strength 30 ml PO Q4H PRN #0 06/29/17 03/07/19 acetaminophen 650 mg PO Q4HP PRN #0 06/29/17 03/07/19 atorvastatin 80 mg PO BEDTIME #0 06/29/17 03/07/19 bisacodyl 10 mg MD PRN PRN #0 06/29/17 03/07/19 bisacodyl [Fleet Laxative 10 mg PO PRN PRN #0 06/29/17 03/07/19 (bisacodyl)] clopidogrel 75 mg PO DAILY #0 06/29/17 03/07/19 levothyroxine 50 mcg PO QPM #0 06/29/17 03/07/19 metoprolol succinate [Toprol XL] 12.5 mg PO DAILY #0 06/29/17 03/07/19 omeprazole 20 mg PO DAILY #0 06/29/17 03/07/19 sennosides [senna] 17.2 mg PO BEDTIME #0 06/29/17 03/07/19 artifi.tears(hypromellose)(PF) 0.3 2 drp EYE-BOTH BID ml 11/25/17 03/07/19 % eye drops baclofen 10 mg tablet 10 mg PO TID 11/25/17 03/07/19 insulin aspart U-100 100 unit/mL 100 unit SUBCUT QID 11/25/17 03/07/19 (3 mL) subcutaneous pen docusate sodium 2 tab PO BID 03/05/18 03/07/19 magnesium hydroxide [Milk of 30 ml PO PRN PRN 03/05/18 03/07/19 Magnesia] ammonium lactate 1 applic TOPICAL BID PRN 08/13/18 03/07/19 calcium carbonate 1,200 mg PO QPM 08/13/18 03/07/19 cholecalciferol (vitamin D3) 1,000 unit PO QPM 08/13/18 03/07/19 fluticasone propionate 1 spray INTRANASAL BID 08/13/18 03/07/19 guaifenesin [Mucinex] 600 mg PO Q12H 08/13/18 03/07/19 hydroxyzine pamoate 25 - 50 mg PO Q6H PRN 08/13/18 03/07/19 insulin glargine 8 unit SUBCUT BID 08/13/18 03/07/19 mirtazapine 22.5 mg PO BEDTIME 08/13/18 03/07/19 ondansetron 4 mg PO Q4H PRN 08/13/18 03/07/19 vitamin B complex [B 1 tab PO QPM 08/13/18 03/07/19 Complex-Vitamin B12] cetirizine 10 mg PO DAILY PRN 01/25/19 03/07/19 sodium chloride [Saline Mist] 1 spray INTRANASAL Q6H PRN 01/25/19 03/07/19 aspirin 325 mg PO DAILY 02/20/19 03/07/19 furosemide 40 mg PO DAILY 02/20/19 03/07/19 Glucagon Emergency Kit (human) 1 mg IM PRN PRN MDD ` 03/02/19 03/07/19 duloxetine 60 mg PO BEDTIME 03/02/19 03/07/19 nystatin 1 applic TOPICAL BID PRN 03/02/19 03/07/19 Alcohol Liquor 1 ea PO DAILY PRN 03/07/19 03/07/19 Health Shake 1 ea PO QPM 03/07/19 03/07/19 bisacodyl 5 mg PO PRN PRN 03/07/19 03/07/19 cefdinir 300 mg PO BIDX4D 03/07/19 03/07/19 dextromethorphan polistirex 10 ml PO Q12H PRN 03/07/19 03/07/19 [Delsym 12 hour] doxycycline hyclate 100 mg PO BIDX4D 03/07/19 03/07/19 ibuprofen 400 mg PO Q4H PRN 03/07/19 03/07/19 oxycodone 5 mg PO Q4H PRN 03/07/19 03/07/19 Previous Rx's Medication Instructions Recorded clonazepam 0.75 mg PO Q6H PRN #20 tab 03/05/19 oxycodone [OxyContin] 20 mg PO Q8H #20 tab 03/05/19 Allergies Allergy/AdvReac Type Severity Reaction Status Date / Time codeine [CODEINE] AdvReac Unknown nausea Verified 07/25/19 11:36 Review of Systems Constitutional Constitutional: Denies fever(s), Denies frequent falls and Denies headache(s) ENT Ears, Nose, Mouth, and Throat: Denies headache(s) Musculoskeletal Comments: Right ankle pain Integumentary/Breasts Skin/Breast: Denies lesions and Denies rash Neurologic Neurologic: Denies frequent falls and Denies headache(s) Comments: No changes to baseline neurologic status Hematologic/Lymphatic Hematologic/Lymphatic: Denies easy bleeding and Denies easy bruising Patient History Medical History C3 spinal cord injury (Acute) C4 spinal cord injury (Acute) CVA (cerebral vascular accident) (Acute) Diabetes (Acute) Gastroesophageal reflux disease (Acute) Hyperlipidemia (Acute) Hypertension (Acute) Social History household members: caregiver Smoking Status: Current every day smoker alcohol intake: current substance use type: does not use additional social history: He currently resides in He currently resides in [facility]. Smoking Status: Current every day smoker tobacco type: cigarettes alcohol intake frequency: a few times a week Substance Use Type: does not use Exam Initial Vital Signs Initial Vital Signs: Vital Signs Temperature 98.1 F 07/25/19 10:55 Pulse Rate 89 07/25/19 10:55 Respiratory Rate 14 07/25/19 10:55 Blood Pressure 109/59 L 07/25/19 10:55 Pulse Oximetry 99 07/25/19 10:55 Const General: cooperative Limitations: mental status not altered Cardio Pulses: dorsalis pedis present on the right Skin Lesions: no lesions Rashes: no rashes Neuro Other: 3/5 strength right lower extremity this is not new. Extrem Other: Swelling right ankle. Tenderness to palpation over the lateral malleolus. No tenderness to palpation over the foot. No tenderness palpation over the medial malleolus or the Achilles tendon. No proximal fibula tenderness on the right. No right knee tenderness. Right midfoot forward patient describes no symptoms. Procedures Orthopedic Splinting/Casting Injury #1: Side: right Lower Extremity Injury Location: ankle Lower Extremity Immobilizer: John wrap Post splinting neuro exam: intact Post splinting vascular exam: intact Placed by: Nursing Course Orders Ordered: ED Orders 07/25/19 11:02 XR ankle RT min 3V Stat Vital Signs Vital signs: Vital Signs - 8 hr 07/25/19 10:55 Temperature 98.1 F Pulse Rate 89 Respiratory Rate 14 Blood Pressure 109/59 L Pulse Oximetry 99 MDM - Extremity Injury (Lower) Imaging Data Extremity x-ray #1: Radiologist's Impression: [address] [address] XRay Report Signed Patient: Ray Foster [facility]#: [id number] : 6Acct:[id number] Age/Sex: 64 / MDate of Service: 07/25/19 Loc: ED Accession Number: [id number] Procedure: XR ankle RT min 3V Ordering Provider: Taye Lund D.O. PROCEDURE: XR ANKLE RT MIN 3V INDICATIONS: pain after fall TECHNIQUE: 3 views of the ankle were acquired. COMPARISON: [facility], , XR ANKLE RT MIN 3V, 06/14/2018, 13:08. FINDINGS: Bones: No fractures or dislocations. Ankle mortise is normally aligned. No suspicious bony lesions. Osteoarthritic changes in ankle and hindfoot joints are seen. Soft tissues: Soft tissue swelling around ankle joint is seen. No tibiotalar joint effusion. Achilles tendon appears normal. IMPRESSION: No gross acute ankle fracture or dislocation. Ankle soft tissue swelling. Ankle joint osteoarthritis. Dictated by: Nam Sapp M.D. on 07/25/2019 at 11:19 Approved by: Nam Sapp M.D. on 07/25/2019 at 11:29 [facility] Narrative Medical decision making narrative: Patient is at his baseline neuro status. He is vascularly intact. No fractures on the x-ray. Will placed in an John bandage per his request. Was given return precautions and follow-up instructions. He expressed understanding and agreement. Discharge Plan Departure Patient Disposition: Home Clinical Impression: Right ankle sprain Qualifiers: Encounter type: initial encounter Involved ligament of ankle: unspecified ligament Qualified Code(s): S93.401A - Sprain of unspecified ligament of right ankle, initial encounter Instructions: DI for Ankle Sprain, How to Apply an Elastic Wrap on Ankle Activity Restrictions/Additional Instructions: You can walk 1 your right lower extremity as tolerated. I would recommend that you keep it elevated. Use the John bandages needed. Return to the emergency department for any new or worsening symptoms Prescriptions: No Action atorvastatin 80 MG tablet 80 mg PO BEDTIME Qty: 0 RF: 0 clopidogrel 75 MG tablet 75 mg PO DAILY Qty: 0 RF: 0 levothyroxine 50 MCG tablet 50 mcg PO QPM Qty: 0 RF: 0 metoprolol succinate [Toprol XL] 25 MG tablet extended release 24 hr 12.5 mg PO DAILY Qty: 0 RF: 0 sennosides [senna] 8.6 MG tablet 17.2 mg PO BEDTIME Qty: 0 RF: 0 acetaminophen 325 MG tablet 650 mg PO Q4HP PRN (Reason: Fever Or Pain) Qty: 0 RF: 0 omeprazole 20 MG capsule,delayed release(DR/EC) 20 mg PO DAILY Qty: 0 RF: 0 bisacodyl 10 MG suppository 10 mg MD PRN PRN (Reason: Constipation) Qty: 0 RF: 0 bisacodyl [Fleet Laxative (bisacodyl)] 5 MG tablet,delayed release (DR/EC) 10 mg PO PRN PRN (Reason: no BM x 3 days ) Qty: 0 RF: 0 Maalox Maximum Strength 355 ML suspension 30 ml PO Q4H PRN (Reason: gi upset) Qty: 0 RF: 0 magnesium hydroxide [Milk of Magnesia] 400 mg/5 mL Suspension 30 ml PO PRN PRN (Reason: Constipation) RF: 0 docusate sodium 100 mg Capsule 2 tab PO BID RF: 0 aspirin 325 mg Tablet,Delayed Release (Dr/Ec) 325 mg PO DAILY RF: 0 furosemide 40 mg tablet 40 mg PO DAILY RF: 0 calcium carbonate 600 mg calcium (1,500 mg) Tablet 1,200 mg PO QPM RF: 0 vitamin B complex [B Complex-Vitamin B12] Tablet 1 tab PO QPM RF: 0 mirtazapine 15 mg Tablet 22.5 mg PO BEDTIME RF: 0 fluticasone propionate 50 mcg/actuation [employer],Suspension 1 spray INTRANASAL BID RF: 0 cholecalciferol (vitamin D3) 1,000 unit Capsule 1,000 unit PO QPM RF: 0 hydroxyzine pamoate 25 mg Capsule 25 - 50 mg PO Q6H PRN (Reason: pain/spasms) RF: 0 insulin glargine 100 unit/mL (3 mL) Insulin Pen 8 unit SUBCUT BID RF: 0 ondansetron 4 mg Tablet,Disintegrating 4 mg PO Q4H PRN (Reason: Nausea) RF: 0 ammonium lactate 12 % Lotion 1 applic TOPICAL BID PRN (Reason: Dry Skin) RF: 0 guaifenesin [Mucinex] 600 mg Tablet Extended Release 12hr 600 mg PO Q12H RF: 0 cetirizine 10 mg Tablet 10 mg PO DAILY PRN (Reason: allergies) RF: 0 sodium chloride [Saline Mist] 0.65 % Aerosol,[employer] 1 spray INTRANASAL Q6H PRN (Reason: Congestion) RF: 0 Glucagon Emergency Kit (human) 1 mg Recon Soln 1 mg IM PRN MDD ` PRN (Reason: blood glucose <60) RF: 0 duloxetine 60 mg capsule,delayed release(DR/EC) 60 mg PO BEDTIME RF: 0 nystatin 100,000 unit/gram Cream 1 applic TOPICAL BID PRN (Reason: yeast) RF: 0 oxycodone [OxyContin] 20 mg Tablet,Oral Only,Ext.Rel.12 Hr 20 mg PO Q8H Qty: 20 RF: 0 clonazepam 0.5 mg tablet 0.75 mg PO Q6H PRN (Reason: Anxiety) Qty: 20 RF: 0 Health Shake 1 ea PO QPM RF: 0 Alcohol Liquor 1 ea PO DAILY PRN (Reason: life enjoyment) RF: 0 dextromethorphan polistirex [Delsym 12 hour] 30 mg/5 mL Suspension,Extended Rel 12 Hr 10 ml PO Q12H PRN (Reason: Cough) RF: 0 ibuprofen 400 mg Tablet 400 mg PO Q4H PRN (Reason: pain) RF: 0 bisacodyl 5 mg Tablet,Delayed Release (Dr/Ec) 5 mg PO PRN PRN (Reason: no BM x 2 days) RF: 0 oxycodone 5 mg tablet 5 mg PO Q4H PRN (Reason: pain) RF: 0 doxycycline hyclate 100 mg capsule 100 mg PO BIDX4D RF: 0 cefdinir 300 mg capsule 300 mg PO BIDX4D RF: 0 insulin aspart U-100 [Novolog Flexpen U-100 Insulin] 100 unit/mL insulin pen 100 unit SUBCUT QID RF: 0 baclofen 10 mg tablet 10 mg PO TID RF: 0 artifi.tears(hypromellose)(PF) 0.3 % drops 2 drp EYE-BOTH BID RF: 0 Referrals: Eli Canas ARNP [Primary Care Provider] -
== END 2019-07-25 12:06 | disposition home or self-care (01) ==
PROVIDERS: Emergency Provider Emergency Medicine; Family Provider Nurse Practitioner Family; PCP Registered Nurse
DX: S93.401A Sprain of unspecified ligament of right ankle, initial encounter (principal); W19.XXXA Unspecified fall, initial encounter
CPT/HCPCS: 73610; 99283

== ENCOUNTER → 2019-08-24 09:42 | Outpatient (ROUT) | payer MEDICARE, MEDICAID, SELFPAY ==
[2019-03-02 18:01] VITALS: BMI 27.4
[2019-08-24 12:36] LABS: BUN Creatinine Ratio 17.6 (6-22); Blood Urea Nitrogen 21 mg/dL (9-20); Carbon Dioxide 29 mmol/L (22-32); Chloride 100 mmol/L (98-107); Estimated Glomerular Filt Rate > 60.0 mL/min (>60); Glucose 272 mg/dL (80-110); HEMOLYSIS < 15 (0-50); Potassium 4.3 mmol/L (3.4-5.1); Sodium 136 mmol/L (137-145)
== END ==
PROVIDERS: Family Provider Nurse Practitioner Family; PCP Registered Nurse; Visit Provider Nurse Practitioner Family
DX: R60.9 Edema, unspecified (principal)
CPT/HCPCS: 36415; 80048

== ENCOUNTER → 2019-08-29 07:58 | Outpatient (ROUT) | payer MEDICARE, MEDICAID, SELFPAY ==
[2019-03-02 18:01] VITALS: BMI 27.4
[2019-08-29 08:48] LABS: BUN Creatinine Ratio 26.9 (6-22); Blood Urea Nitrogen 39 mg/dL (9-20); Calcium 9.7 mg/dL (8.4-10.2); Carbon Dioxide 33 mmol/L (22-32); Chloride 92 mmol/L (98-107); Estimated Glomerular Filt Rate 49.2 mL/min (>60); Glucose 342 mg/dL (80-110); HEMOLYSIS < 15 (0-50); Magnesium 2.1 mg/dL (1.6-2.3); Potassium 3.9 mmol/L (3.4-5.1); Sodium 136 mmol/L (137-145)
== END ==
PROVIDERS: Family Provider Nurse Practitioner Family; PCP Registered Nurse; Visit Provider Nurse Practitioner Family
DX: R60.9 Edema, unspecified (principal)
CPT/HCPCS: 36415; 80048; 83735

== ENCOUNTER → 2019-09-05 07:42 | Outpatient (ROUT) | payer MEDICARE, MEDICAID, SELFPAY ==
[2019-03-02 18:01] VITALS: BMI 27.4
[2019-09-05 07:52] LABS: Add Manual Diff / Slide Review NO; Basophils Absolute Auto 0 /uL (0-100); Basophils Percent Auto 0.6 % (0-2); Eosinophils Absolute Auto 400 /uL (0-450); Eosinophils Percent Auto 5.7 % (2-4); Hematocrit 40.7 % (41-53); Lymphocytes Absolute Auto 1900 /uL (1100-4500); Mean Corpuscular HGB Conc 34.3 % (30-36); Mean Corpuscular Volume 84.4 fL (80-100); Monocytes Absolute Auto 700 /uL (0-900); Monocytes Percent Auto 8.8 % (3-14); Neutrophils Absolute Auto 4500 /uL (1500-7000); Neutrophils Percent Auto 59.9 % (50-75); Platelet Count 286 X10^3/uL (150-400); Red Blood Cell Count 4.82 X10^6/uL (4.5-5.9); Red Cell Distribution Width 14.8 % (11.6-14.8); White Blood Cell Count 7.6 X10^3/uL (4.5-11.0)
[2019-09-05 08:04] LABS: BUN Creatinine Ratio 28.9 (6-22); Blood Urea Nitrogen 43 mg/dL (9-20); Chloride 88 mmol/L (98-107); Estimated Glomerular Filt Rate 47.6 mL/min (>60); Glucose 156 mg/dL (80-110); HEMOLYSIS < 15 (0-50); Potassium 3.3 mmol/L (3.4-5.1); Sodium 138 mmol/L (137-145)
[2019-09-05 08:45] LABS: Carbon Dioxide 40 mmol/L (22-32)
== END ==
PROVIDERS: Family Provider Nurse Practitioner Family; PCP Registered Nurse; Visit Provider Nurse Practitioner Family
DX: R60.9 Edema, unspecified (principal); N17.9 Acute kidney failure, unspecified
CPT/HCPCS: 36415; 80048; 85025

== ENCOUNTER 2019-09-10 01:41 | Emergency (ER) | payer MEDICARE, MEDICAID, SELFPAY ==
[2019-03-02 18:01] VITALS: BMI 27.4
[2019-09-10 01:41] VITALS: BP 170/86; PULSE 81; RESP 20; TEMP 36.8; O2SAT 98
--- NOTE | 2019-09-10 01:45 | DI.RAD.S_ITS ---
PROCEDURE: XR KNEE RT 3V INDICATIONS: Pain after fall TECHNIQUE: 3 views of the knee were acquired. COMPARISON: [facility], CT, CT LE RT W CON, 03/04/2019, 11:09. [facility], CR, XR TIBIA FIBULA RT 2V, 12/05/2018, 15:04. [facility], CR, XR TIBIA FIBULA RIGHT, 02/16/2019, 14:23. [facility] [place], CR, XR TIBIA FIBULA RIGHT, 06/29/2018, 14:01. [facility], CR, XR TIBIA FIBULA RT 2V, 06/14/2018, 13:32. [facility], CR, XR KNEE RT 1TO2V, 06/14/2018, 13:08. FINDINGS: Bones: There is a healing fracture involving the proximal tibia. No new fractures are seen. A distal femoral corin can be seen. Age-appropriate bony degenerative changes are seen. Soft tissues: No joint effusion. No suspicious soft tissue calcifications. There is partial visualization of a distal superficial femoral artery/popliteal stent. IMPRESSION: Healing proximal tibial fracture, without acute fracture identified. If there is point tenderness (or other clinical suspicion for a fracture not seen on these images) then a dedicated CT could be considered for further evaluation, as clinically appropriate. Note: No significant discrepancy from the preliminary report. Dictated by: Bryan Her M.D. on 09/10/2019 at 7:01 Approved by: Bryan Her M.D. on 09/10/2019 at 7:04
--- NOTE | 2019-09-10 01:47 | ED_ITS ---
HPI - General Adult General Chief complaint: Fall Stated complaint: GLF Time Seen by Provider: 09/10/19 01:45 Source: patient Mode of arrival: EMS Limitations: no limitations History of Present Illness HPI narrative: Patient is a 64-year-old male. Has had multiple strokes in the past. Is not on anticoagulation. Last evening had a witnessed fall out of his power chair where he bumped the right side of his head and also injured his right knee. Initially did not want to come in to the emergency department then as the night went on started having more right knee pain. Was brought in by EMS. On a backboard in a cervical collar. Has Steri-Strips over the wound above his right eye. Related Data Home Medications Medication Instructions Recorded Confirmed Maalox Maximum Strength 30 ml PO Q4H PRN #0 06/29/17 03/07/19 acetaminophen 650 mg PO Q4HP PRN #0 06/29/17 03/07/19 atorvastatin 80 mg PO BEDTIME #0 06/29/17 03/07/19 bisacodyl 10 mg [place] PRN PRN #0 06/29/17 03/07/19 bisacodyl [Fleet Laxative 10 mg PO PRN PRN #0 06/29/17 03/07/19 (bisacodyl)] clopidogrel 75 mg PO DAILY #0 06/29/17 03/07/19 levothyroxine 50 mcg PO QPM #0 06/29/17 03/07/19 metoprolol succinate [Toprol XL] 12.5 mg PO DAILY #0 06/29/17 03/07/19 omeprazole 20 mg PO DAILY #0 06/29/17 03/07/19 sennosides [senna] 17.2 mg PO BEDTIME #0 06/29/17 03/07/19 artifi.tears(hypromellose)(PF) 0.3 2 drp EYE-BOTH BID ml 11/25/17 03/07/19 % eye drops baclofen 10 mg tablet 10 mg PO TID 11/25/17 03/07/19 insulin aspart U-100 100 unit/mL 100 unit SUBCUT QID 11/25/17 03/07/19 (3 mL) subcutaneous pen docusate sodium 2 tab PO BID 03/05/18 03/07/19 magnesium hydroxide [Milk of 30 ml PO PRN PRN 03/05/18 03/07/19 Magnesia] ammonium lactate 1 applic TOPICAL BID PRN 08/13/18 03/07/19 calcium carbonate 1,200 mg PO QPM 08/13/18 03/07/19 cholecalciferol (vitamin D3) 1,000 unit PO QPM 08/13/18 03/07/19 fluticasone propionate 1 spray INTRANASAL BID 08/13/18 03/07/19 guaifenesin [Mucinex] 600 mg PO Q12H 08/13/18 03/07/19 hydroxyzine pamoate 25 - 50 mg PO Q6H PRN 08/13/18 03/07/19 insulin glargine 8 unit SUBCUT BID 08/13/18 03/07/19 mirtazapine 22.5 mg PO BEDTIME 08/13/18 03/07/19 ondansetron 4 mg PO Q4H PRN 08/13/18 03/07/19 vitamin B complex [B 1 tab PO QPM 08/13/18 03/07/19 Complex-Vitamin B12] cetirizine 10 mg PO DAILY PRN 01/25/19 03/07/19 sodium chloride [Saline Mist] 1 spray INTRANASAL Q6H PRN 01/25/19 03/07/19 aspirin 325 mg PO DAILY 02/20/19 03/07/19 furosemide 40 mg PO DAILY 02/20/19 03/07/19 Glucagon Emergency Kit (human) 1 mg IM PRN PRN MDD ` 03/02/19 03/07/19 duloxetine 60 mg PO BEDTIME 03/02/19 03/07/19 nystatin 1 applic TOPICAL BID PRN 03/02/19 03/07/19 Alcohol Liquor 1 ea PO DAILY PRN 03/07/19 03/07/19 Health Shake 1 ea PO QPM 03/07/19 03/07/19 bisacodyl 5 mg PO PRN PRN 03/07/19 03/07/19 cefdinir 300 mg PO BIDX4D 03/07/19 03/07/19 dextromethorphan polistirex 10 ml PO Q12H PRN 03/07/19 03/07/19 [Delsym 12 hour] doxycycline hyclate 100 mg PO BIDX4D 03/07/19 03/07/19 ibuprofen 400 mg PO Q4H PRN 03/07/19 03/07/19 oxycodone 5 mg PO Q4H PRN 03/07/19 03/07/19 Previous Rx's Medication Instructions Recorded clonazepam 0.75 mg PO Q6H PRN #20 tab 03/05/19 oxycodone [OxyContin] 20 mg PO Q8H #20 tab 03/05/19 Allergies Allergy/AdvReac Type Severity Reaction Status Date / Time codeine [CODEINE] AdvReac Unknown nausea Verified 07/25/19 11:36 Review of Systems Constitutional Constitutional: Denies headache(s) Eyes Eyes: Denies change in vision ENT Ears, Nose, Mouth, and Throat: Denies headache(s) Musculoskeletal Comments: Right knee pain Integumentary/Breasts Comments: Cut above right eye Neurologic Neurologic: Denies behavioral changes and Denies headache(s) Psychiatric Psychiatric: Denies behavioral changes Hematologic/Lymphatic Hematologic/Lymphatic: Denies easy bleeding and Denies easy bruising Patient History Medical History C3 spinal cord injury (Acute) C4 spinal cord injury (Acute) CVA (cerebral vascular accident) (Acute) Diabetes (Acute) Gastroesophageal reflux disease (Acute) Hyperlipidemia (Acute) Hypertension (Acute) Surgical History History of carotid endarterectomy (Acute) History of coronary artery stent placement (Acute) No pertinent past surgical history (Acute) Family History Mother Cancer Father Lung disease Hyperlipidemia Brother Lupus Social History household members: caregiver Smoking Status: Current every day smoker alcohol intake: current substance use type: does not use additional social history: He currently resides in He currently resides in [facility]. Smoking Status: Current every day smoker tobacco type: cigarettes alcohol intake frequency: a few times a week Substance Use Type: does not use Exam Initial Vital Signs Initial Vital Signs: Vital Signs Temperature 98.3 F 09/10/19 01:41 Pulse Rate 81 09/10/19 01:41 Respiratory Rate 20 09/10/19 01:41 Blood Pressure 170/86 H 09/10/19 01:41 Pulse Oximetry 98 09/10/19 01:41 Const General: cooperative and comfortable HENMT Face and sinus: laceration (Above right eye) Resp Effort & Inspection: normal respiratory effort Cardio Rate: regular rate Back/Spine/Pelvis Cervical Spine: No collar present and No cervical spinal tenderness Thoracic/Lumbar Spine: No thoracic spinal tenderness and No lumbar spinal tenderness Skin Other: Patient with a superficial abrasion on the anterior portion of his right knee. Has 2 less than 1 cm lacerations above his right eye. Superficial. Extrem Other: Diffuse right knee pain Course Orders Ordered: ED Orders 09/10/19 01:45 XR knee RT 3V Stat Vital Signs Vital signs: Vital Signs - 8 hr 09/10/19 01:41 Temperature 98.3 F Pulse Rate 81 Respiratory Rate 20 Blood Pressure 170/86 H Pulse Oximetry 98 Medical Decision Making Imaging Data Extremity x-ray #1: Attestation: I personally reviewed and interpreted this imaging study as follows: My Impression: No fractures, no dislocations MDM Narrative Medical decision making narrative: The wound above his right eye were cleaned. Small superficial lacerations that just placed Steri-Strips over the area to try to keep it from bleeding. The abrasion over his right knee needed no intervention. Was covered with a Band-Aid. His right knee shows no fractures. He has no neck pain. We can hold on further workup. This was I mechanical fall his wheelchair that was witnessed. Not on anticoagulation. Feel we can hold on head CT. Patient was given return precautions and follow-up instructions. Expressed understanding and agreement. Discharge Plan Departure Patient Disposition: Home Clinical Impression: Abrasion of skin Laceration of forehead Qualifiers: Encounter type: initial encounter Qualified Code(s): S01.81XA - Laceration without foreign body of other part of head, initial encounter Knee pain Qualifiers: Chronicity: acute Laterality: right Qualified Code(s): M25.561 - Pain in right knee Instructions: How to Prevent Falls Activity Restrictions/Additional Instructions: You can shower like normal. Continue all of your medications as directed. There were no fractures on your knee x-ray this evening. You can ice your knee as needed. Return to the emergency department for any new symptoms. Prescriptions: No Action atorvastatin 80 MG tablet 80 mg PO BEDTIME Qty: 0 RF: 0 clopidogrel 75 MG tablet 75 mg PO DAILY Qty: 0 RF: 0 levothyroxine 50 MCG tablet 50 mcg PO QPM Qty: 0 RF: 0 metoprolol succinate [Toprol XL] 25 MG tablet extended release 24 hr 12.5 mg PO DAILY Qty: 0 RF: 0 sennosides [senna] 8.6 MG tablet 17.2 mg PO BEDTIME Qty: 0 RF: 0 acetaminophen 325 MG tablet 650 mg PO Q4HP PRN (Reason: Fever Or Pain) Qty: 0 RF: 0 omeprazole 20 MG capsule,delayed release(DR/EC) 20 mg PO DAILY Qty: 0 RF: 0 bisacodyl 10 MG suppository 10 mg [place] PRN PRN (Reason: Constipation) Qty: 0 RF: 0 bisacodyl [Fleet Laxative (bisacodyl)] 5 MG tablet,delayed release (DR/EC) 10 mg PO PRN PRN (Reason: no BM x 3 days ) Qty: 0 RF: 0 Maalox Maximum Strength 355 ML suspension 30 ml PO Q4H PRN (Reason: gi upset) Qty: 0 RF: 0 magnesium hydroxide [Milk of Magnesia] 400 mg/5 mL Suspension 30 ml PO PRN PRN (Reason: Constipation) RF: 0 docusate sodium 100 mg Capsule 2 tab PO BID RF: 0 aspirin 325 mg Tablet,Delayed Release (Dr/Ec) 325 mg PO DAILY RF: 0 furosemide 40 mg tablet 40 mg PO DAILY RF: 0 calcium carbonate 600 mg calcium (1,500 mg) Tablet 1,200 mg PO QPM RF: 0 vitamin B complex [B Complex-Vitamin B12] Tablet 1 tab PO QPM RF: 0 mirtazapine 15 mg Tablet 22.5 mg PO BEDTIME RF: 0 fluticasone propionate 50 mcg/actuation [place],Suspension 1 spray INTRANASAL BID RF: 0 cholecalciferol (vitamin D3) 1,000 unit Capsule 1,000 unit PO QPM RF: 0 hydroxyzine pamoate 25 mg Capsule 25 - 50 mg PO Q6H PRN (Reason: pain/spasms) RF: 0 insulin glargine 100 unit/mL (3 mL) Insulin Pen 8 unit SUBCUT BID RF: 0 ondansetron 4 mg Tablet,Disintegrating 4 mg PO Q4H PRN (Reason: Nausea) RF: 0 ammonium lactate 12 % Lotion 1 applic TOPICAL BID PRN (Reason: Dry Skin) RF: 0 guaifenesin [Mucinex] 600 mg Tablet Extended Release 12hr 600 mg PO Q12H RF: 0 cetirizine 10 mg Tablet 10 mg PO DAILY PRN (Reason: allergies) RF: 0 sodium chloride [Saline Mist] 0.65 % Aerosol,[place] 1 spray INTRANASAL Q6H PRN (Reason: Congestion) RF: 0 Glucagon Emergency Kit (human) 1 mg Recon Soln 1 mg IM PRN MDD ` PRN (Reason: blood glucose <60) RF: 0 duloxetine 60 mg capsule,delayed release(DR/EC) 60 mg PO BEDTIME RF: 0 nystatin 100,000 unit/gram Cream 1 applic TOPICAL BID PRN (Reason: yeast) RF: 0 oxycodone [OxyContin] 20 mg Tablet,Oral Only,Ext.Rel.12 Hr 20 mg PO Q8H Qty: 20 RF: 0 clonazepam 0.5 mg tablet 0.75 mg PO Q6H PRN (Reason: Anxiety) Qty: 20 RF: 0 Health Shake 1 ea PO QPM RF: 0 Alcohol Liquor 1 ea PO DAILY PRN (Reason: life enjoyment) RF: 0 dextromethorphan polistirex [Delsym 12 hour] 30 mg/5 mL Suspension,Extended Rel 12 Hr 10 ml PO Q12H PRN (Reason: Cough) RF: 0 ibuprofen 400 mg Tablet 400 mg PO Q4H PRN (Reason: pain) RF: 0 bisacodyl 5 mg Tablet,Delayed Release (Dr/Ec) 5 mg PO PRN PRN (Reason: no BM x 2 days) RF: 0 oxycodone 5 mg tablet 5 mg PO Q4H PRN (Reason: pain) RF: 0 doxycycline hyclate 100 mg capsule 100 mg PO BIDX4D RF: 0 cefdinir 300 mg capsule 300 mg PO BIDX4D RF: 0 insulin aspart U-100 [Novolog Flexpen U-100 Insulin] 100 unit/mL insulin pen 100 unit SUBCUT QID RF: 0 baclofen 10 mg tablet 10 mg PO TID RF: 0 artifi.tears(hypromellose)(PF) 0.3 % drops 2 drp EYE-BOTH BID RF: 0 Referrals: Eli Canas ARNP [Primary Care Provider] -
[2019-09-10 02:46] VITALS: BP 117/85; PULSE 76; RESP 16; O2SAT 95
== END 2019-09-10 03:36 | disposition home or self-care (01) ==
LOC: ED 02:45
PROVIDERS: Emergency Provider Emergency Medicine; Family Provider Nurse Practitioner Family; PCP Registered Nurse
DX: S80.211A Abrasion, right knee, initial encounter (principal); S01.81XA Laceration without foreign body of other part of head, initial encounter; M25.561 Pain in right knee; W07.XXXA Fall from chair, initial encounter
CPT/HCPCS: 73562; 99283

== ENCOUNTER → 2019-09-14 07:40 | Outpatient (ROUT) | payer MEDICARE, MEDICAID, SELFPAY ==
[2019-03-02 18:01] VITALS: BMI 27.4
[2019-09-14 08:35] LABS: BUN Creatinine Ratio 19.3 (6-22); Blood Urea Nitrogen 29 mg/dL (9-20); Calcium 9.1 mg/dL (8.4-10.2); Carbon Dioxide 34 mmol/L (22-32); Chloride 94 mmol/L (98-107); Estimated Glomerular Filt Rate 47.3 mL/min (>60); Glucose 269 mg/dL (80-110); HEMOLYSIS < 15 (0-50); Potassium 4.2 mmol/L (3.4-5.1); Sodium 135 mmol/L (137-145)
== END ==
PROVIDERS: Family Provider Nurse Practitioner Family; PCP Registered Nurse; Visit Provider Nurse Practitioner Family
DX: R60.9 Edema, unspecified (principal)
CPT/HCPCS: 36415; 80048

== ENCOUNTER → 2019-09-19 09:40 | Outpatient (ROUT) | payer MEDICARE, MEDICAID, SELFPAY ==
[2019-03-02 18:01] VITALS: BMI 27.4
[2019-09-19 10:06] LABS: Add Manual Diff / Slide Review NO; Basophils Absolute Auto 100 /uL (0-100); Eosinophils Absolute Auto 400 /uL (0-450); Eosinophils Percent Auto 5.9 % (2-4); Hematocrit 35.9 % (41-53); Hemoglobin 12.3 g/dL (13.5-17.5); Lymphocytes Absolute Auto 1800 /uL (1100-4500); Mean Corpuscular HGB Conc 34.2 % (30-36); Monocytes Absolute Auto 400 /uL (0-900); Monocytes Percent Auto 6.3 % (3-14); Neutrophils Absolute Auto 4300 /uL (1500-7000); Neutrophils Percent Auto 60.8 % (50-75); Platelet Count 287 X10^3/uL (150-400); Red Blood Cell Count 4.23 X10^6/uL (4.5-5.9); Red Cell Distribution Width 14.7 % (11.6-14.8)
[2019-09-19 10:25] LABS: BUN Creatinine Ratio 22.2 (6-22); Blood Urea Nitrogen 28 mg/dL (9-20); Calcium 8.7 mg/dL (8.4-10.2); Carbon Dioxide 27 mmol/L (22-32); Chloride 100 mmol/L (98-107); Estimated Glomerular Filt Rate 57.8 mL/min (>60); Glucose 304 mg/dL (80-110); HEMOLYSIS < 15 (0-50); Potassium 3.9 mmol/L (3.4-5.1); Sodium 137 mmol/L (137-145)
== END ==
PROVIDERS: Family Provider Nurse Practitioner Family; PCP Registered Nurse; Visit Provider Nurse Practitioner Family
DX: N17.9 Acute kidney failure, unspecified (principal); L03.90 Cellulitis, unspecified
CPT/HCPCS: 36415; 80048; 85025

== ENCOUNTER → 2019-10-03 16:36 | Outpatient (CLI) | payer MEDICARE, MEDICAID, SELFPAY ==
[2019-03-02 18:01] VITALS: BMI 27.4
== END ==
PROVIDERS: Family Provider Nurse Practitioner Family; PCP Registered Nurse; Referring Provider Internal Medicine; Visit Provider Family Medicine
DX: E11.621 Type 2 diabetes mellitus with foot ulcer (principal); L97.511 Non-pressure chronic ulcer of other part of right foot limited to breakdown of skin; I70.235 Atherosclerosis of native arteries of right leg with ulceration of other part of foot; E11.43 Type 2 diabetes mellitus with diabetic autonomic (poly)neuropathy; R60.0 Localized edema
CPT/HCPCS: 93923; 99213; 99214

== ENCOUNTER → 2019-10-09 12:40 | Outpatient (ROUT) | payer MEDICARE, MEDICAID, SELFPAY ==
[2019-03-02 18:01] VITALS: BMI 27.4
[2019-10-11 08:36] LABS: COVID19 Sendout Not Detected (Not Detected)
== END ==
PROVIDERS: Family Provider Nurse Practitioner Family; PCP Registered Nurse; Visit Provider Internal Medicine
DX: Z03.818 Encounter for observation for suspected exposure to other biological agents ruled out (principal)
CPT/HCPCS: 87635

== ENCOUNTER → 2019-10-11 13:29 | Outpatient (CLI) | payer MEDICARE, MEDICAID, SELFPAY ==
[2019-03-02 18:01] VITALS: BMI 27.4
== END ==
PROVIDERS: Family Provider Nurse Practitioner Family; PCP Registered Nurse; Referring Provider Registered Nurse; Visit Provider Family Medicine
DX: E11.52 Type 2 diabetes mellitus with diabetic peripheral angiopathy with gangrene (principal); E11.621 Type 2 diabetes mellitus with foot ulcer; L97.511 Non-pressure chronic ulcer of other part of right foot limited to breakdown of skin; E11.43 Type 2 diabetes mellitus with diabetic autonomic (poly)neuropathy
CPT/HCPCS: 99213

== ENCOUNTER → 2019-10-19 14:11 | Outpatient (CLI) | payer MEDICARE, MEDICAID, SELFPAY ==
[2019-03-02 18:01] VITALS: BMI 27.4
== END ==
PROVIDERS: Family Provider Nurse Practitioner Family; PCP Registered Nurse; Referring Provider Registered Nurse; Visit Provider Family Medicine
DX: E11.52 Type 2 diabetes mellitus with diabetic peripheral angiopathy with gangrene (principal); E11.621 Type 2 diabetes mellitus with foot ulcer; L97.511 Non-pressure chronic ulcer of other part of right foot limited to breakdown of skin; E11.43 Type 2 diabetes mellitus with diabetic autonomic (poly)neuropathy
CPT/HCPCS: 99213

== ENCOUNTER → 2019-10-24 08:23 | Outpatient (ROUT) | payer MEDICARE, MEDICAID, SELFPAY ==
[2019-03-02 18:01] VITALS: BMI 27.4
[2019-10-24 08:42] LABS: BUN Creatinine Ratio 26.7 (6-22); Blood Urea Nitrogen 27 mg/dL (9-20); Calcium 8.9 mg/dL (8.4-10.2); Carbon Dioxide 32 mmol/L (22-32); Chloride 102 mmol/L (98-107); Estimated Glomerular Filt Rate > 60.0 mL/min (>60); Glucose 197 mg/dL (80-110); HEMOLYSIS < 15 (0-50); Potassium 4.3 mmol/L (3.4-5.1); Sodium 137 mmol/L (137-145)
== END ==
PROVIDERS: Family Provider Nurse Practitioner Family; PCP Registered Nurse; Visit Provider Nurse Practitioner Family
DX: N17.9 Acute kidney failure, unspecified (principal)
CPT/HCPCS: 80048

== ENCOUNTER → 2019-10-26 15:40 | Outpatient (CLI) | payer MEDICARE, MEDICAID, SELFPAY ==
[2019-03-02 18:01] VITALS: BMI 27.4
== END ==
PROVIDERS: Family Provider Nurse Practitioner Family; PCP Registered Nurse; Referring Provider Registered Nurse; Visit Provider Family Medicine
DX: E11.52 Type 2 diabetes mellitus with diabetic peripheral angiopathy with gangrene (principal); E11.621 Type 2 diabetes mellitus with foot ulcer; L97.511 Non-pressure chronic ulcer of other part of right foot limited to breakdown of skin; E11.43 Type 2 diabetes mellitus with diabetic autonomic (poly)neuropathy
CPT/HCPCS: 99213

== ENCOUNTER → 2019-11-02 15:52 | Outpatient (CLI) | payer MEDICARE, MEDICAID, SELFPAY ==
[2019-03-02 18:01] VITALS: BMI 27.4
== END ==
PROVIDERS: Family Provider Nurse Practitioner Family; PCP Registered Nurse; Referring Provider Registered Nurse; Visit Provider Family Medicine
DX: E11.52 Type 2 diabetes mellitus with diabetic peripheral angiopathy with gangrene (principal); L97.519 Non-pressure chronic ulcer of other part of right foot with unspecified severity; E11.621 Type 2 diabetes mellitus with foot ulcer; E11.43 Type 2 diabetes mellitus with diabetic autonomic (poly)neuropathy
CPT/HCPCS: 99213; 99214

== ENCOUNTER → 2019-11-02 16:20 | Outpatient (CLI) | payer MEDICARE, MEDICAID, SELFPAY ==
[2019-03-02 18:01] VITALS: BMI 27.4
== END ==
PROVIDERS: Family Provider Nurse Practitioner Family; PCP Registered Nurse; Referring Provider Family Medicine; Visit Provider Family Medicine
DX: Z53.9 Procedure and treatment not carried out, unspecified reason (principal)

== ENCOUNTER → 2019-11-08 09:24 | Outpatient (CLI) | payer MEDICARE, MEDICAID, SELFPAY ==
[2019-03-02 18:01] VITALS: BMI 27.4
--- NOTE | 2019-11-08 | DI.RAD.S_ITS ---
PROCEDURE: XR CHEST 2V INDICATIONS: Encounter for other preprocedural examination TECHNIQUE: 2 views of the chest were acquired. COMPARISON: None. FINDINGS: Surgical changes and devices: None. Lungs and pleura: Lungs are clear. No pleural effusions or pneumothorax. Mediastinum: Mediastinal contours are normal. Heart size is normal. Bones and chest wall: No suspicious bony abnormalities. Soft tissues appear unremarkable. IMPRESSION: No acute cardiopulmonary process demonstrated radiographically. Dictated by: Arian Chacon M.D. on 11/08/2019 at 9:53 Approved by: Arian Chacon M.D. on 11/08/2019 at 9:54
== END ==
PROVIDERS: Family Provider Nurse Practitioner Family; PCP Registered Nurse; Referring Provider Family Medicine; Visit Provider Family Medicine
DX: Z01.818 Encounter for other preprocedural examination (principal); F17.210 Nicotine dependence, cigarettes, uncomplicated
CPT/HCPCS: 71046

== ENCOUNTER → 2019-11-09 15:09 | Outpatient (CLI) | payer MEDICARE, MEDICAID, SELFPAY ==
[2019-03-02 18:01] VITALS: BMI 27.4
== END ==
PROVIDERS: Family Provider Nurse Practitioner Family; PCP Registered Nurse; Referring Provider Registered Nurse; Visit Provider Family Medicine
DX: E11.52 Type 2 diabetes mellitus with diabetic peripheral angiopathy with gangrene (principal); L97.519 Non-pressure chronic ulcer of other part of right foot with unspecified severity; E11.621 Type 2 diabetes mellitus with foot ulcer; E11.43 Type 2 diabetes mellitus with diabetic autonomic (poly)neuropathy
CPT/HCPCS: 99213

== ENCOUNTER → 2019-11-13 08:57 | Outpatient (CLI) | payer MEDICARE, MEDICAID, SELFPAY ==
[2019-03-02 18:01] VITALS: BMI 27.4
== END ==
PROVIDERS: Family Provider Nurse Practitioner Family; PCP Registered Nurse; Referring Provider Registered Nurse; Visit Provider Family Medicine
DX: E11.52 Type 2 diabetes mellitus with diabetic peripheral angiopathy with gangrene (principal); E11.621 Type 2 diabetes mellitus with foot ulcer; E11.43 Type 2 diabetes mellitus with diabetic autonomic (poly)neuropathy; L97.511 Non-pressure chronic ulcer of other part of right foot limited to breakdown of skin
CPT/HCPCS: 99183; G0277

== ENCOUNTER → 2019-11-14 10:14 | Outpatient (CLI) | payer MEDICARE, MEDICAID, SELFPAY ==
[2019-03-02 18:01] VITALS: BMI 27.4
== END ==
PROVIDERS: Family Provider Nurse Practitioner Family; PCP Registered Nurse; Referring Provider Registered Nurse; Visit Provider Family Medicine
DX: E11.52 Type 2 diabetes mellitus with diabetic peripheral angiopathy with gangrene (principal); E11.621 Type 2 diabetes mellitus with foot ulcer; E11.43 Type 2 diabetes mellitus with diabetic autonomic (poly)neuropathy; L97.511 Non-pressure chronic ulcer of other part of right foot limited to breakdown of skin
CPT/HCPCS: 99183; G0277

== ENCOUNTER → 2019-11-15 10:28 | Outpatient (CLI) | payer MEDICARE, MEDICAID, SELFPAY ==
[2019-03-02 18:01] VITALS: BMI 27.4
== END ==
PROVIDERS: Family Provider Nurse Practitioner Family; PCP Registered Nurse; Referring Provider Registered Nurse; Visit Provider Family Medicine
DX: E11.52 Type 2 diabetes mellitus with diabetic peripheral angiopathy with gangrene (principal); E11.621 Type 2 diabetes mellitus with foot ulcer; E11.43 Type 2 diabetes mellitus with diabetic autonomic (poly)neuropathy; L97.511 Non-pressure chronic ulcer of other part of right foot limited to breakdown of skin
CPT/HCPCS: 99183; G0277

== ENCOUNTER → 2019-11-16 14:46 | Outpatient (CLI) | payer MEDICARE, MEDICAID, SELFPAY ==
[2019-03-02 18:01] VITALS: BMI 27.4
== END ==
PROVIDERS: Family Provider Nurse Practitioner Family; PCP Registered Nurse; Referring Provider Registered Nurse; Visit Provider Family Medicine
DX: E11.621 Type 2 diabetes mellitus with foot ulcer (principal); L97.511 Non-pressure chronic ulcer of other part of right foot limited to breakdown of skin; E11.52 Type 2 diabetes mellitus with diabetic peripheral angiopathy with gangrene; E11.43 Type 2 diabetes mellitus with diabetic autonomic (poly)neuropathy
CPT/HCPCS: 97597; 97598; 99183; 99213; G0277

== ENCOUNTER → 2019-11-17 11:30 | Outpatient (CLI) | payer MEDICARE, MEDICAID, SELFPAY ==
[2019-03-02 18:01] VITALS: BMI 27.4
== END ==
PROVIDERS: Family Provider Nurse Practitioner Family; PCP Registered Nurse; Referring Provider Registered Nurse; Visit Provider Family Medicine
DX: E11.621 Type 2 diabetes mellitus with foot ulcer (principal); L97.511 Non-pressure chronic ulcer of other part of right foot limited to breakdown of skin; E11.52 Type 2 diabetes mellitus with diabetic peripheral angiopathy with gangrene; E11.43 Type 2 diabetes mellitus with diabetic autonomic (poly)neuropathy
CPT/HCPCS: 99183; G0277

== ENCOUNTER → 2019-11-20 10:36 | Outpatient (CLI) | payer MEDICARE, MEDICAID, SELFPAY ==
[2019-03-02 18:01] VITALS: BMI 27.4
== END ==
PROVIDERS: Family Provider Nurse Practitioner Family; PCP Registered Nurse; Referring Provider Registered Nurse; Visit Provider Family Medicine
DX: E11.621 Type 2 diabetes mellitus with foot ulcer (principal); L97.511 Non-pressure chronic ulcer of other part of right foot limited to breakdown of skin; E11.52 Type 2 diabetes mellitus with diabetic peripheral angiopathy with gangrene; E11.43 Type 2 diabetes mellitus with diabetic autonomic (poly)neuropathy
CPT/HCPCS: 99183; G0277

== ENCOUNTER → 2019-11-21 08:36 | Outpatient (CLI) | payer MEDICARE, MEDICAID, SELFPAY ==
[2019-03-02 18:01] VITALS: BMI 27.4
== END ==
PROVIDERS: Family Provider Nurse Practitioner Family; PCP Registered Nurse; Referring Provider Registered Nurse; Visit Provider Family Medicine
DX: E11.621 Type 2 diabetes mellitus with foot ulcer (principal); L97.511 Non-pressure chronic ulcer of other part of right foot limited to breakdown of skin; E11.52 Type 2 diabetes mellitus with diabetic peripheral angiopathy with gangrene; E11.43 Type 2 diabetes mellitus with diabetic autonomic (poly)neuropathy
CPT/HCPCS: 99183; G0277

== ENCOUNTER → 2019-11-22 09:34 | Outpatient (CLI) | payer MEDICARE, MEDICAID, SELFPAY ==
[2019-03-02 18:01] VITALS: BMI 27.4
== END ==
PROVIDERS: Family Provider Nurse Practitioner Family; PCP Registered Nurse; Referring Provider Registered Nurse; Visit Provider Family Medicine
DX: E11.621 Type 2 diabetes mellitus with foot ulcer (principal); L97.511 Non-pressure chronic ulcer of other part of right foot limited to breakdown of skin; E11.52 Type 2 diabetes mellitus with diabetic peripheral angiopathy with gangrene; E11.43 Type 2 diabetes mellitus with diabetic autonomic (poly)neuropathy
CPT/HCPCS: 99183; G0277

== ENCOUNTER → 2019-11-23 12:06 | Outpatient (CLI) | payer MEDICARE, MEDICAID, SELFPAY ==
[2019-03-02 18:01] VITALS: BMI 27.4
== END ==
PROVIDERS: Family Provider Nurse Practitioner Family; PCP Registered Nurse; Referring Provider Registered Nurse; Visit Provider Family Medicine
DX: E11.621 Type 2 diabetes mellitus with foot ulcer (principal); L97.511 Non-pressure chronic ulcer of other part of right foot limited to breakdown of skin; E11.52 Type 2 diabetes mellitus with diabetic peripheral angiopathy with gangrene; E11.43 Type 2 diabetes mellitus with diabetic autonomic (poly)neuropathy
CPT/HCPCS: 99183; G0277

== ENCOUNTER → 2019-11-24 13:49 | Outpatient (CLI) | payer MEDICARE, MEDICAID, SELFPAY ==
[2019-03-02 18:01] VITALS: BMI 27.4
== END ==
PROVIDERS: Family Provider Nurse Practitioner Family; PCP Registered Nurse; Referring Provider Registered Nurse; Visit Provider Family Medicine
DX: E11.52 Type 2 diabetes mellitus with diabetic peripheral angiopathy with gangrene (principal); L97.519 Non-pressure chronic ulcer of other part of right foot with unspecified severity; E11.621 Type 2 diabetes mellitus with foot ulcer; E11.43 Type 2 diabetes mellitus with diabetic autonomic (poly)neuropathy
CPT/HCPCS: 99183; G0277

== ENCOUNTER → 2019-11-27 08:44 | Outpatient (CLI) | payer MEDICARE, MEDICAID, SELFPAY ==
[2019-03-02 18:01] VITALS: BMI 27.4
== END ==
PROVIDERS: Family Provider Nurse Practitioner Family; PCP Registered Nurse; Referring Provider Registered Nurse; Visit Provider Family Medicine
DX: E11.52 Type 2 diabetes mellitus with diabetic peripheral angiopathy with gangrene (principal); L97.519 Non-pressure chronic ulcer of other part of right foot with unspecified severity; E11.621 Type 2 diabetes mellitus with foot ulcer; E11.43 Type 2 diabetes mellitus with diabetic autonomic (poly)neuropathy; L97.511 Non-pressure chronic ulcer of other part of right foot limited to breakdown of skin
CPT/HCPCS: 99183; 99213; G0277

== ENCOUNTER → 2019-11-28 14:24 | Outpatient (CLI) | payer MEDICARE, MEDICAID, SELFPAY ==
[2019-03-02 18:01] VITALS: BMI 27.4
== END ==
PROVIDERS: Family Provider Nurse Practitioner Family; PCP Registered Nurse; Referring Provider Registered Nurse; Visit Provider Family Medicine
DX: E11.52 Type 2 diabetes mellitus with diabetic peripheral angiopathy with gangrene (principal); E11.621 Type 2 diabetes mellitus with foot ulcer; E11.43 Type 2 diabetes mellitus with diabetic autonomic (poly)neuropathy; L97.511 Non-pressure chronic ulcer of other part of right foot limited to breakdown of skin
CPT/HCPCS: 99183; G0277

== ENCOUNTER → 2019-11-29 09:52 | Outpatient (CLI) | payer MEDICARE, MEDICAID, SELFPAY ==
[2019-03-02 18:01] VITALS: BMI 27.4
== END ==
PROVIDERS: Family Provider Nurse Practitioner Family; PCP Registered Nurse; Referring Provider Registered Nurse; Visit Provider Family Medicine
DX: E11.52 Type 2 diabetes mellitus with diabetic peripheral angiopathy with gangrene (principal); E11.621 Type 2 diabetes mellitus with foot ulcer; E11.43 Type 2 diabetes mellitus with diabetic autonomic (poly)neuropathy; L97.511 Non-pressure chronic ulcer of other part of right foot limited to breakdown of skin
CPT/HCPCS: 99183; G0277

== ENCOUNTER → 2019-11-30 11:13 | Outpatient (CLI) | payer MEDICARE, MEDICAID, SELFPAY ==
[2019-03-02 18:01] VITALS: BMI 27.4
== END ==
PROVIDERS: Family Provider Nurse Practitioner Family; PCP Registered Nurse; Referring Provider Registered Nurse; Visit Provider Family Medicine
DX: E11.52 Type 2 diabetes mellitus with diabetic peripheral angiopathy with gangrene (principal); E11.621 Type 2 diabetes mellitus with foot ulcer; E11.43 Type 2 diabetes mellitus with diabetic autonomic (poly)neuropathy; L97.511 Non-pressure chronic ulcer of other part of right foot limited to breakdown of skin
CPT/HCPCS: 99183; G0277

== ENCOUNTER → 2019-12-01 09:39 | Outpatient (CLI) | payer MEDICARE, MEDICAID, SELFPAY ==
[2019-03-02 18:01] VITALS: BMI 27.4
== END ==
PROVIDERS: Family Provider Nurse Practitioner Family; PCP Registered Nurse; Referring Provider Registered Nurse; Visit Provider Family Medicine
DX: E11.621 Type 2 diabetes mellitus with foot ulcer (principal); L97.511 Non-pressure chronic ulcer of other part of right foot limited to breakdown of skin; E11.52 Type 2 diabetes mellitus with diabetic peripheral angiopathy with gangrene; E11.43 Type 2 diabetes mellitus with diabetic autonomic (poly)neuropathy
CPT/HCPCS: 99183; G0277

== ENCOUNTER → 2019-12-04 09:52 | Outpatient (CLI) | payer MEDICARE, MEDICAID, SELFPAY ==
[2019-03-02 18:01] VITALS: BMI 27.4
== END ==
PROVIDERS: Family Provider Nurse Practitioner Family; PCP Registered Nurse; Referring Provider Registered Nurse; Visit Provider Family Medicine
DX: E11.52 Type 2 diabetes mellitus with diabetic peripheral angiopathy with gangrene (principal); E11.621 Type 2 diabetes mellitus with foot ulcer; E11.43 Type 2 diabetes mellitus with diabetic autonomic (poly)neuropathy; L97.511 Non-pressure chronic ulcer of other part of right foot limited to breakdown of skin
CPT/HCPCS: 97597; 97598; 99183; G0277

== ENCOUNTER → 2019-12-05 09:35 | Outpatient (CLI) | payer MEDICARE, MEDICAID, SELFPAY ==
[2019-03-02 18:01] VITALS: BMI 27.4
== END ==
PROVIDERS: Family Provider Nurse Practitioner Family; PCP Registered Nurse; Referring Provider Registered Nurse; Visit Provider Family Medicine
DX: E11.52 Type 2 diabetes mellitus with diabetic peripheral angiopathy with gangrene (principal); E11.621 Type 2 diabetes mellitus with foot ulcer; E11.43 Type 2 diabetes mellitus with diabetic autonomic (poly)neuropathy; L97.511 Non-pressure chronic ulcer of other part of right foot limited to breakdown of skin
CPT/HCPCS: 99183; G0277

== ENCOUNTER → 2019-12-06 13:40 | Outpatient (CLI) | payer MEDICARE, MEDICAID, SELFPAY ==
[2019-03-02 18:01] VITALS: BMI 27.4
== END ==
PROVIDERS: Family Provider Nurse Practitioner Family; PCP Registered Nurse; Referring Provider Registered Nurse; Visit Provider Family Medicine
DX: E11.52 Type 2 diabetes mellitus with diabetic peripheral angiopathy with gangrene (principal); E11.621 Type 2 diabetes mellitus with foot ulcer; E11.43 Type 2 diabetes mellitus with diabetic autonomic (poly)neuropathy; L97.511 Non-pressure chronic ulcer of other part of right foot limited to breakdown of skin
CPT/HCPCS: 99183; G0277

== ENCOUNTER → 2019-12-07 10:03 | Outpatient (CLI) | payer MEDICARE, MEDICAID, SELFPAY ==
[2019-03-02 18:01] VITALS: BMI 27.4
== END ==
PROVIDERS: Family Provider Nurse Practitioner Family; PCP Registered Nurse; Referring Provider Registered Nurse; Visit Provider Family Medicine
DX: E11.52 Type 2 diabetes mellitus with diabetic peripheral angiopathy with gangrene (principal); E11.621 Type 2 diabetes mellitus with foot ulcer; E11.43 Type 2 diabetes mellitus with diabetic autonomic (poly)neuropathy; L97.511 Non-pressure chronic ulcer of other part of right foot limited to breakdown of skin
CPT/HCPCS: 99183; G0277

== ENCOUNTER → 2019-12-08 11:19 | Outpatient (CLI) | payer MEDICARE, MEDICAID, SELFPAY ==
[2019-03-02 18:01] VITALS: BMI 27.4
== END ==
PROVIDERS: Family Provider Nurse Practitioner Family; PCP Registered Nurse; Referring Provider Registered Nurse; Visit Provider Family Medicine
DX: E11.52 Type 2 diabetes mellitus with diabetic peripheral angiopathy with gangrene (principal); E11.621 Type 2 diabetes mellitus with foot ulcer; E11.43 Type 2 diabetes mellitus with diabetic autonomic (poly)neuropathy; L97.511 Non-pressure chronic ulcer of other part of right foot limited to breakdown of skin
CPT/HCPCS: 99183; G0277

== ENCOUNTER → 2019-12-11 10:40 | Outpatient (CLI) | payer MEDICARE, MEDICAID, SELFPAY ==
[2019-03-02 18:01] VITALS: BMI 27.4
== END ==
PROVIDERS: Family Provider Nurse Practitioner Family; PCP Registered Nurse; Referring Provider Registered Nurse; Visit Provider Family Medicine
DX: E11.52 Type 2 diabetes mellitus with diabetic peripheral angiopathy with gangrene (principal); E11.621 Type 2 diabetes mellitus with foot ulcer; E11.43 Type 2 diabetes mellitus with diabetic autonomic (poly)neuropathy; L97.514 Non-pressure chronic ulcer of other part of right foot with necrosis of bone; L97.511 Non-pressure chronic ulcer of other part of right foot limited to breakdown of skin
CPT/HCPCS: 11042; 11043; 11045; 99183; G0277

== ENCOUNTER → 2019-12-12 09:48 | Outpatient (CLI) | payer MEDICARE, MEDICAID, SELFPAY ==
[2019-03-02 18:01] VITALS: BMI 27.4
== END ==
PROVIDERS: Family Provider Nurse Practitioner Family; PCP Registered Nurse; Referring Provider Registered Nurse; Visit Provider Family Medicine
DX: E11.52 Type 2 diabetes mellitus with diabetic peripheral angiopathy with gangrene (principal); L97.519 Non-pressure chronic ulcer of other part of right foot with unspecified severity; L97.514 Non-pressure chronic ulcer of other part of right foot with necrosis of bone; E11.43 Type 2 diabetes mellitus with diabetic autonomic (poly)neuropathy
CPT/HCPCS: 99183; G0277

== ENCOUNTER → 2019-12-13 08:42 | Outpatient (CLI) | payer MEDICARE, MEDICAID, SELFPAY ==
[2019-03-02 18:01] VITALS: BMI 27.4
== END ==
PROVIDERS: Family Provider Nurse Practitioner Family; PCP Registered Nurse; Referring Provider Registered Nurse; Visit Provider Family Medicine
DX: E11.52 Type 2 diabetes mellitus with diabetic peripheral angiopathy with gangrene (principal); L97.514 Non-pressure chronic ulcer of other part of right foot with necrosis of bone; E11.43 Type 2 diabetes mellitus with diabetic autonomic (poly)neuropathy; L97.511 Non-pressure chronic ulcer of other part of right foot limited to breakdown of skin; E11.621 Type 2 diabetes mellitus with foot ulcer
CPT/HCPCS: 99183; G0277

== ENCOUNTER → 2019-12-14 10:29 | Outpatient (CLI) | payer MEDICARE, MEDICAID, SELFPAY ==
[2019-03-02 18:01] VITALS: BMI 27.4
== END ==
PROVIDERS: Family Provider Nurse Practitioner Family; PCP Registered Nurse; Referring Provider Registered Nurse; Visit Provider Family Medicine
DX: E11.52 Type 2 diabetes mellitus with diabetic peripheral angiopathy with gangrene (principal); L97.514 Non-pressure chronic ulcer of other part of right foot with necrosis of bone; E11.43 Type 2 diabetes mellitus with diabetic autonomic (poly)neuropathy; L97.511 Non-pressure chronic ulcer of other part of right foot limited to breakdown of skin; E11.621 Type 2 diabetes mellitus with foot ulcer
CPT/HCPCS: 99183; G0277

== ENCOUNTER → 2019-12-15 08:31 | Outpatient (CLI) | payer MEDICARE, MEDICAID, SELFPAY ==
[2019-03-02 18:01] VITALS: BMI 27.4
== END ==
PROVIDERS: Family Provider Nurse Practitioner Family; PCP Registered Nurse; Referring Provider Registered Nurse; Visit Provider Family Medicine
DX: E11.52 Type 2 diabetes mellitus with diabetic peripheral angiopathy with gangrene (principal); L97.514 Non-pressure chronic ulcer of other part of right foot with necrosis of bone; E11.43 Type 2 diabetes mellitus with diabetic autonomic (poly)neuropathy; L97.511 Non-pressure chronic ulcer of other part of right foot limited to breakdown of skin; E11.621 Type 2 diabetes mellitus with foot ulcer
CPT/HCPCS: 99183; G0277

== ENCOUNTER → 2019-12-18 08:59 | Outpatient (CLI) | payer MEDICARE, MEDICAID, SELFPAY ==
[2019-03-02 18:01] VITALS: BMI 27.4
== END ==
PROVIDERS: Family Provider Nurse Practitioner Family; PCP Registered Nurse; Referring Provider Registered Nurse; Visit Provider Family Medicine
DX: E11.52 Type 2 diabetes mellitus with diabetic peripheral angiopathy with gangrene (principal); L97.514 Non-pressure chronic ulcer of other part of right foot with necrosis of bone; E11.43 Type 2 diabetes mellitus with diabetic autonomic (poly)neuropathy; L97.511 Non-pressure chronic ulcer of other part of right foot limited to breakdown of skin; E11.621 Type 2 diabetes mellitus with foot ulcer
CPT/HCPCS: 99183; G0277

== ENCOUNTER → 2019-12-19 08:08 | Outpatient (ROUT) | payer MEDICARE, MEDICAID, SELFPAY ==
[2019-03-02 18:01] VITALS: BMI 27.4
[2019-12-19 08:29] LABS: Add Manual Diff / Slide Review NO; Basophils Absolute Auto 100 /uL (0-100); Basophils Percent Auto 0.7 % (0-2); Eosinophils Absolute Auto 800 /uL (0-450); Eosinophils Percent Auto 7.7 % (2-4); Hematocrit 34.8 % (41-53); Hemoglobin 11.4 g/dL (13.5-17.5); Lymphocytes Absolute Auto 2000 /uL (1100-4500); Lymphocytes Percent Auto 20.3 % (25-40); Mean Corpuscular HGB Conc 32.7 % (30-36); Mean Corpuscular Hemoglobin 28.3 PG (26-34); Mean Corpuscular Volume 86.5 fL (80-100); Monocytes Absolute Auto 800 /uL (0-900); Neutrophils Absolute Auto 6200 /uL (1500-7000); Neutrophils Percent Auto 63.3 % (50-75); Platelet Count 289 X10^3/uL (150-400); Red Blood Cell Count 4.03 X10^6/uL (4.5-5.9); Red Cell Distribution Width 14.8 % (11.6-14.8); White Blood Cell Count 9.8 X10^3/uL (4.5-11.0)
[2019-12-19 08:34] LABS: Alanine Aminotransferase 21 IU/L (<50); Albumin 3.8 g/dL (3.5-5.0); Albumin Globulin Ratio 1.3 (1.0-2.8); Alkaline Phosphatase 172 U/L (38-126); Aspartate Aminotransferase 29 IU/L (17-59); BUN Creatinine Ratio 22.3 (6-22); Bilirubin Total 0.5 mg/dL (0.2-1.3); Blood Urea Nitrogen 27 mg/dL (9-20); Calcium 9.2 mg/dL (8.4-10.2); Carbon Dioxide 32 mmol/L (22-32); Chloride 100 mmol/L (98-107); Estimated Glomerular Filt Rate > 60.0 mL/min (>60); Globulin 2.9 g/dL (1.7-4.1); Glucose 232 mg/dL (80-110); HEMOLYSIS < 15 (0-50); Potassium 4.3 mmol/L (3.4-5.1); Sodium 137 mmol/L (137-145); Total Protein 6.7 g/dL (6.3-8.2)
== END ==
PROVIDERS: Family Provider Nurse Practitioner Family; PCP Registered Nurse; Visit Provider Internal Medicine
DX: E10.3599 Type 1 diabetes mellitus with proliferative diabetic retinopathy without macular edema, unspecified eye (principal); N18.3 Chronic kidney disease, stage 3 (moderate)
CPT/HCPCS: 80053; 85025

== ENCOUNTER → 2019-12-19 08:27 | Outpatient (CLI) | payer MEDICARE, MEDICAID, SELFPAY ==
[2019-03-02 18:01] VITALS: BMI 27.4
== END ==
PROVIDERS: Family Provider Nurse Practitioner Family; PCP Registered Nurse; Referring Provider Registered Nurse; Visit Provider Family Medicine
DX: E11.52 Type 2 diabetes mellitus with diabetic peripheral angiopathy with gangrene (principal); L97.514 Non-pressure chronic ulcer of other part of right foot with necrosis of bone; E11.43 Type 2 diabetes mellitus with diabetic autonomic (poly)neuropathy; E11.621 Type 2 diabetes mellitus with foot ulcer; L97.511 Non-pressure chronic ulcer of other part of right foot limited to breakdown of skin; N18.3 Chronic kidney disease, stage 3 (moderate)
CPT/HCPCS: 11043; 11046; 80053; 85025; 99183; G0277

== ENCOUNTER → 2019-12-21 09:15 | Outpatient (CLI) | payer MEDICARE, MEDICAID, SELFPAY ==
[2019-03-02 18:01] VITALS: BMI 27.4
== END ==
PROVIDERS: Family Provider Nurse Practitioner Family; PCP Registered Nurse; Referring Provider Registered Nurse; Visit Provider Family Medicine
DX: E11.52 Type 2 diabetes mellitus with diabetic peripheral angiopathy with gangrene (principal); L97.514 Non-pressure chronic ulcer of other part of right foot with necrosis of bone; E11.43 Type 2 diabetes mellitus with diabetic autonomic (poly)neuropathy; L97.511 Non-pressure chronic ulcer of other part of right foot limited to breakdown of skin; E11.621 Type 2 diabetes mellitus with foot ulcer
CPT/HCPCS: 99183; G0277

== ENCOUNTER → 2020-01-19 13:05 | Outpatient (ROUT) | payer MEDICARE, MEDICAID, SELFPAY ==
[2019-03-02 18:01] VITALS: BMI 27.4
[2020-01-21 15:24] LABS: COVID19 Sendout Not Detected (Not Detect)
== END ==
PROVIDERS: Visit Provider Surgery Vascular Surgery
DX: Z11.59 Encounter for screening for other viral diseases (principal)
CPT/HCPCS: 87635

== ENCOUNTER 2020-06-01 12:46 | Emergency (ER) | payer MEDICARE, MEDICAID, SELFPAY ==
[2019-03-02 18:01] VITALS: BMI 27.4
[2020-06-01] VITALS (29 sets, daily range): BP systolic 71–162; BP diastolic 42–81; PULSE 75–95; RESP 16–24; TEMP 36.4; O2SAT 94–99; BMI 25.8
[2020-06-01 13:10] LABS: Add Manual Diff / Slide Review NO; Basophils Absolute Auto 0 /uL (0-100); Basophils Percent Auto 0.5 % (0-2); Eosinophils Absolute Auto 500 /uL (0-450); Eosinophils Percent Auto 4.9 % (2-4); Hematocrit 42.1 % (41-53); Hemoglobin 13.7 g/dL (13.5-17.5); Lymphocytes Absolute Auto 1400 /uL (1100-4500); Lymphocytes Percent Auto 14.2 % (25-40); Mean Corpuscular HGB Conc 32.5 % (30-36); Mean Corpuscular Hemoglobin 27.3 PG (26-34); Mean Corpuscular Volume 84.1 fL (80-100); Monocytes Absolute Auto 800 /uL (0-900); Monocytes Percent Auto 8.3 % (3-14); Neutrophils Absolute Auto 6900 /uL (1500-7000); Neutrophils Percent Auto 72.1 % (50-75); Platelet Count 310 X10^3/uL (150-400); Red Blood Cell Count 5.01 X10^6/uL (4.5-5.9); Red Cell Distribution Width 15.6 % (11.6-14.8); White Blood Cell Count 9.6 X10^3/uL (4.5-11.0)
[2020-06-01 13:15] LABS: Alanine Aminotransferase 33 IU/L (<50); Albumin 4.2 g/dL (3.5-5.0); Albumin Globulin Ratio 1.4 (1.0-2.8); Alkaline Phosphatase 157 U/L (38-126); Aspartate Aminotransferase 30 IU/L (17-59); BUN Creatinine Ratio 21.5 (6-22); Bilirubin Total 0.2 mg/dL (0.2-1.3); Blood Urea Nitrogen 17 mg/dL (9-20); Calcium 9.1 mg/dL (8.4-10.2); Carbon Dioxide 33 mmol/L (22-32); Chloride 104 mmol/L (98-107); Creatine Kinase 101 U/L (55-170); Estimated Glomerular Filt Rate > 60.0 mL/min (>60); Globulin 3.1 g/dL (1.7-4.1); Glucose 89 mg/dL (80-110); HEMOLYSIS < 15 (0-50); Potassium 3.3 mmol/L (3.4-5.1); Sodium 141 mmol/L (137-145); Total Protein 7.3 g/dL (6.3-8.2)
[2020-06-01 13:27] LABS: Troponin I < 0.012 ng/mL (0.01-0.034)
--- NOTE | 2020-06-01 13:29 | ED_ITS ---
HPI - General Adult General Chief complaint: Diabetic Problem Stated complaint: blood sugar concerns Time Seen by Provider: 06/01/20 12:59 Source: patient and EMS Mode of arrival: EMS Limitations: other History of Present Illness HPI narrative: Patient is a 65-year-old male of insulin-dependent diabetes, CVA, C3-C4 spinal cord injury presenting today with glucose problem. He says this morning he was eating liquor rash he is trying to quit smoking his neighbor gave him: Feel like rash which apparently has very high glucose content more than normal. He was found to have a glucose elevated greater than 500 by lunch time. The [facility] provider instructed the nurse to give 30 units of NovoLog, which then decreased his glucose to 38, at which point he became unresponsive. The facility gave him glucagon and EMS was called. When EMS arrived he became more responsive glucose seem to be rising and he is now quite sweaty diaphoretic but overall feeling better. He denies any pain or fever. Related Data Home Medications Medication Instructions Recorded Confirmed Maalox Maximum Strength 30 ml PO Q4H PRN #0 06/29/17 03/07/19 acetaminophen 650 mg PO Q4HP PRN #0 06/29/17 03/07/19 atorvastatin 80 mg PO BEDTIME #0 06/29/17 03/07/19 bisacodyl 10 mg DE PRN PRN #0 06/29/17 03/07/19 bisacodyl [Fleet Laxative 10 mg PO PRN PRN #0 06/29/17 03/07/19 (bisacodyl)] clopidogrel 75 mg PO DAILY #0 06/29/17 03/07/19 levothyroxine 50 mcg PO QPM #0 06/29/17 03/07/19 metoprolol succinate [Toprol XL] 12.5 mg PO DAILY #0 06/29/17 03/07/19 omeprazole 20 mg PO DAILY #0 06/29/17 03/07/19 sennosides [senna] 17.2 mg PO BEDTIME #0 06/29/17 03/07/19 artifi.tears(hypromellose)(PF) 0.3 2 drp EYE-BOTH BID ml 11/25/17 03/07/19 % eye drops baclofen 10 mg tablet 10 mg PO TID 11/25/17 03/07/19 insulin aspart U-100 100 unit/mL 100 unit SUBCUT QID 11/25/17 03/07/19 (3 mL) subcutaneous pen docusate sodium 2 tab PO BID 03/05/18 03/07/19 magnesium hydroxide [Milk of 30 ml PO PRN PRN 03/05/18 03/07/19 Magnesia] ammonium lactate 1 applic TOPICAL BID PRN 08/13/18 03/07/19 calcium carbonate 1,200 mg PO QPM 08/13/18 03/07/19 cholecalciferol (vitamin D3) 1,000 unit PO QPM 08/13/18 03/07/19 fluticasone propionate 1 spray INTRANASAL BID 08/13/18 03/07/19 guaifenesin [Mucinex] 600 mg PO Q12H 08/13/18 03/07/19 hydroxyzine pamoate 25 - 50 mg PO Q6H PRN 08/13/18 03/07/19 insulin glargine 8 unit SUBCUT BID 08/13/18 03/07/19 mirtazapine 22.5 mg PO BEDTIME 08/13/18 03/07/19 ondansetron 4 mg PO Q4H PRN 08/13/18 03/07/19 vitamin B complex [B 1 tab PO QPM 08/13/18 03/07/19 Complex-Vitamin B12] cetirizine 10 mg PO DAILY PRN 01/25/19 03/07/19 sodium chloride [Saline Mist] 1 spray INTRANASAL Q6H PRN 01/25/19 03/07/19 aspirin 325 mg PO DAILY 02/20/19 03/07/19 furosemide 40 mg PO DAILY 02/20/19 03/07/19 Glucagon Emergency Kit (human) 1 mg IM PRN PRN MDD ` 03/02/19 03/07/19 duloxetine 60 mg PO BEDTIME 03/02/19 03/07/19 nystatin 1 applic TOPICAL BID PRN 03/02/19 03/07/19 Alcohol Liquor 1 ea PO DAILY PRN 03/07/19 03/07/19 Health Shake 1 ea PO QPM 03/07/19 03/07/19 bisacodyl 5 mg PO PRN PRN 03/07/19 03/07/19 cefdinir 300 mg PO BIDX4D 03/07/19 03/07/19 dextromethorphan polistirex 10 ml PO Q12H PRN 03/07/19 03/07/19 [Delsym 12 hour] doxycycline hyclate 100 mg PO BIDX4D 03/07/19 03/07/19 ibuprofen 400 mg PO Q4H PRN 03/07/19 03/07/19 oxycodone 5 mg PO Q4H PRN 03/07/19 03/07/19 Previous Rx's Medication Instructions Recorded clonazepam 0.75 mg PO Q6H PRN #20 tab 03/05/19 oxycodone [OxyContin] 20 mg PO Q8H #20 tab 03/05/19 Allergies Allergy/AdvReac Type Severity Reaction Status Date / Time codeine [CODEINE] AdvReac Unknown nausea Verified 01/22/20 08:02 Review of Systems Review of Systems ROS Unobtainable: All systems reviewed & are unremarkable except as noted in HPI and below Constitutional Constitutional: Denies chills, Denies fever(s), Denies lethargy and Denies weakness Eyes Eyes: Denies change in vision, Denies eye discharge, Denies irritation and Denies loss of vision Cardiovascular Cardiovascular: Denies chest pain, Denies irregular heart rhythm, Denies lightheadedness, Denies palpitations, Denies dyspnea, Denies dyspnea on exertion and Denies orthopnea Respiratory Respiratory: Denies cough, Denies dyspnea, Denies dyspnea on exertion and Denies wheezing Gastrointestinal Gastrointestinal: Denies abdominal pain, Denies change in bowel habits, Denies diarrhea, Denies nausea and Denies vomiting Integumentary/Breasts Skin/Breast: Denies pruritus, Denies erythema, Denies rash and Denies wounds Neurologic Neurologic: Reports as per HPI, Denies loss of vision and Denies weakness Endocrine Endocrine: Denies palpitations Allergic/Immunologic Allergic/Immunologic: Denies wheezing Patient History Medical History (Updated 06/01/20 @ 15:40 by Alanis Ureña DO) C3 spinal cord injury C4 spinal cord injury CVA (cerebral vascular accident) Diabetes Gastroesophageal reflux disease Hyperlipidemia Hypertension Surgical History History of carotid endarterectomy History of coronary artery stent placement No pertinent past surgical history Family History Mother Cancer Father Lung disease Hyperlipidemia Brother Lupus Social History household members: caregiver Smoking Status: Current every day smoker alcohol intake: current substance use type: does not use additional social history: He currently resides in He currently resides in [facility]. Smoking Status: Current every day smoker tobacco type: cigarettes alcohol intake frequency: a few times a week Substance Use Type: does not use Exam Initial Vital Signs Initial Vital Signs: Vital Signs Temperature 97.5 F L 06/01/20 13:11 Pulse Rate 95 H 06/01/20 13:11 Respiratory Rate 16 06/01/20 13:11 Blood Pressure 82/45 L 06/01/20 13:11 Pulse Oximetry 94 06/01/20 13:11 GENERAL: Alert diaphoretic male HEENT: Head atraumatic,EOMI, pupils reactive, face symmetric, moist mucous membranes CARDIOVASCULAR: Regular rate and rhythm without murmurs, rubs or gallops. RESPIRATORY: Breath sounds equal bilaterally, no wheezes rales or rhonchi. ABDOMEN: Soft, nontender. Normoactive bowel sounds all 4 quadrants. No guarding or rebound. EXTREMITIES: Normal range of motion, no clubbing or edema. Neurovascularly intact. Right BKA NEUROLOGICAL: Alert and oriented x4. At baseline no need a SKIN: Warm, dry, no laceration, no petechiae, no rashes or lesions. Course Orders Ordered: ED Orders 06/01/20 12:45 Complete Blood Count AUTO DIFF Stat Comprehensive Metabolic Panel Stat Troponin & CK Cardiac Panel Stat 06/01/20 13:01 EKG-12 Lead Stat Discontinued Medications Sodium Chloride (Normal Saline 0.9%) 1,000 mls @ 1,000 mls/hr IV BOLUS ONE Stop: 06/01/20 14:28 Last Infusion: 06/01/20 15:25 Dose: 0 mls/hr Documented by: Admin: 06/01/20 13:39 Dose: 1,000 mls/hr Documented by: OSCAR Sodium Chloride (Normal Saline 0.9%) 1,000 mls @ 1,000 mls/hr IV BOLUS ONE Stop: 06/01/20 16:23 Last Admin: 06/01/20 15:29 Dose: Not Given Documented by: OSCAR Oxycodone/Acetaminophen (Oxycodone/Acetaminophen 5/325 Tablet) 1 tab PO NOW ONE Stop: 06/01/20 15:51 Last Admin: 06/01/20 15:54 Dose: 1 tab Documented by: OSCAR Vital Signs Vital signs: Vital Signs - 8 hr 06/01/20 13:11 06/01/20 14:00 06/01/20 14:04 Temperature 97.5 F L Pulse Rate 95 H 78 78 Respiratory Rate 16 24 24 Blood Pressure 82/45 L 71/42 L 73/44 L Pulse Oximetry 94 95 95 06/01/20 14:08 06/01/20 14:10 06/01/20 14:14 Temperature Pulse Rate 79 77 76 Respiratory Rate Blood Pressure 86/51 L 96/55 L Pulse Oximetry 95 95 95 06/01/20 14:17 06/01/20 14:20 06/01/20 14:21 Temperature Pulse Rate 75 76 Respiratory Rate Blood Pressure 95/52 L Pulse Oximetry 95 94 96 06/01/20 14:30 06/01/20 14:40 06/01/20 14:50 Temperature Pulse Rate 76 77 75 Respiratory Rate Blood Pressure 102/55 L 112/61 125/65 Pulse Oximetry 96 96 96 06/01/20 15:00 06/01/20 15:10 06/01/20 15:11 Temperature Pulse Rate 76 78 78 Respiratory Rate Blood Pressure 123/64 115/73 Pulse Oximetry 97 98 98 06/01/20 15:20 06/01/20 15:27 06/01/20 15:30 Temperature Pulse Rate 77 76 77 Respiratory Rate Blood Pressure 162/81 H 142/68 H 151/78 H Pulse Oximetry 97 98 99 06/01/20 15:40 06/01/20 15:47 06/01/20 15:50 Temperature Pulse Rate 75 78 78 Respiratory Rate Blood Pressure 135/68 139/79 136/71 Pulse Oximetry 99 99 98 06/01/20 16:00 06/01/20 16:10 06/01/20 16:20 Temperature Pulse Rate 77 77 75 Respiratory Rate Blood Pressure 137/68 144/72 H 127/63 Pulse Oximetry 98 98 97 06/01/20 16:30 06/01/20 16:40 06/01/20 16:50 Temperature Pulse Rate 77 78 78 Respiratory Rate Blood Pressure 150/69 H 151/72 H 146/70 H Pulse Oximetry 98 97 97 06/01/20 17:00 06/01/20 17:10 Temperature Pulse Rate 77 78 Respiratory Rate Blood Pressure 133/64 136/74 Pulse Oximetry 98 98 Medical Decision Making Lab Data Lab results reviewed: Yes I reviewed the patient's lab results. Result diagrams: 06/01/20 12:45 06/01/20 12:45 Labs: Lab Results 06/01/20 06/01/20 Range/Units 12:45 12:45 WBC 9.6 (4.5-11.0) X10^3/uL RBC 5.01 (4.5-5.9) X10^6/uL Hgb 13.7 (13.5-17.5) g/dL Hct 42.1 (41-53) % MCV 84.1 (80-100) fL MCH 27.3 (26-34) PG MCHC 32.5 (30-36) % RDW 15.6 H (11.6-14.8) % Plt Count 310 (150-400) X10^3/uL Neut % (Auto) 72.1 (50-75) % Lymph % (Auto) 14.2 L (25-40) % [place] % (Auto) 8.3 (3-14) % Eos % (Auto) 4.9 H (2-4) % Baso % (Auto) 0.5 (0-2) % Neut # (Auto) 6900 (1719-2914) /uL Lymph # (Auto) 1400 (8543-4066) /uL [place] # (Auto) 800 (0-900) /uL Eos # (Auto) 500 H (0-450) /uL Baso # (Auto) 0 (0-100) /uL Sodium 141 (137-145) mmol/L Potassium 3.3 L (3.4-5.1) mmol/L Chloride 104 (98-107) mmol/L Carbon Dioxide 33 H (22-32) mmol/L BUN 17 (9-20) mg/dL Creatinine 0.79 (0.66-1.25) mg/dL Estimated GFR > 60.0 (>60) mL/min BUN/Creatinine Ratio 21.5 (6-22) Glucose 89 (80-110) mg/dL Calcium 9.1 (8.4-10.2) mg/dL Total Bilirubin 0.2 (0.2-1.3) mg/dL AST 30 (17-59) IU/L ALT 33 (<50) IU/L Alkaline Phosphatase 157 H (38-126) U/L Total Creatine Kinase 101 (55-170) U/L CK-MB (CK-2) 0.73 (<2.37) ng/mL CK-MB (CK-2) Rel Index 0.7 L (1.5-5.0) % Troponin I < 0.012 (0.01-0.034) ng/mL Total Protein 7.3 (6.3-8.2) g/dL Albumin 4.2 (3.5-5.0) g/dL Globulin 3.1 (1.7-4.1) g/dL Albumin/Globulin Ratio 1.4 (1.0-2.8) Point of Care Testing Glucose POC 170 Point of care testing: Point of Care Testing Glucose POC 170 ECG Data Attestation: I personally reviewed and interpreted this ECG as follows: Prior ECG tracings: available for review Interpretation: Sinus rhythm rate 83 p.r. interval 156 QRS any [address] changes acutely noted in inferior leads similar to previous EKGs MDM Narrative Medical decision making narrative: Initial blood pressure was low. Glucose has been monitored. He is had a sandwich and had something to drink. Blood pressure improves with 1 L of IV fluids and remained stable. Likely secondary to hypoglycemia Hypoglycemia is insulin induced and now seems stabilized. The patient overall is feeling significantly better. He transfer back to rehab facility via S. Discharge Plan Departure Patient Disposition: [facility] Clinical Impression: Hypoglycemia Prescriptions: No Action atorvastatin 80 MG tablet 80 mg PO BEDTIME Qty: 0 RF: 0 clopidogrel 75 MG tablet 75 mg PO DAILY Qty: 0 RF: 0 levothyroxine 50 MCG tablet 50 mcg PO QPM Qty: 0 RF: 0 metoprolol succinate [Toprol XL] 25 MG tablet extended release 24 hr 12.5 mg PO DAILY Qty: 0 RF: 0 sennosides [senna] 8.6 MG tablet 17.2 mg PO BEDTIME Qty: 0 RF: 0 acetaminophen 325 MG tablet 650 mg PO Q4HP PRN (Reason: Fever Or Pain) Qty: 0 RF: 0 omeprazole 20 MG capsule,delayed release(DR/EC) 20 mg PO DAILY Qty: 0 RF: 0 bisacodyl 10 MG suppository 10 mg DE PRN PRN (Reason: Constipation) Qty: 0 RF: 0 bisacodyl [Fleet Laxative (bisacodyl)] 5 MG tablet,delayed release (DR/EC) 10 mg PO PRN PRN (Reason: no BM x 3 days ) Qty: 0 RF: 0 Maalox Maximum Strength 355 ML suspension 30 ml PO Q4H PRN (Reason: gi upset) Qty: 0 RF: 0 magnesium hydroxide [Milk of Magnesia] 400 mg/5 mL Suspension 30 ml PO PRN PRN (Reason: Constipation) RF: 0 docusate sodium 100 mg Capsule 2 tab PO BID RF: 0 aspirin 325 mg Tablet,Delayed Release (Dr/Ec) 325 mg PO DAILY RF: 0 furosemide 40 mg tablet 40 mg PO DAILY RF: 0 calcium carbonate 600 mg calcium (1,500 mg) Tablet 1,200 mg PO QPM RF: 0 vitamin B complex [B Complex-Vitamin B12] Tablet 1 tab PO QPM RF: 0 mirtazapine 15 mg Tablet 22.5 mg PO BEDTIME RF: 0 fluticasone propionate 50 mcg/actuation [place],Suspension 1 spray INTRANASAL BID RF: 0 cholecalciferol (vitamin D3) 1,000 unit Capsule 1,000 unit PO QPM RF: 0 hydroxyzine pamoate 25 mg Capsule 25 - 50 mg PO Q6H PRN (Reason: pain/spasms) RF: 0 insulin glargine 100 unit/mL (3 mL) Insulin Pen 8 unit SUBCUT BID RF: 0 ondansetron 4 mg Tablet,Disintegrating 4 mg PO Q4H PRN (Reason: Nausea) RF: 0 ammonium lactate 12 % Lotion 1 applic TOPICAL BID PRN (Reason: Dry Skin) RF: 0 guaifenesin [Mucinex] 600 mg Tablet Extended Release 12hr 600 mg PO Q12H RF: 0 cetirizine 10 mg Tablet 10 mg PO DAILY PRN (Reason: allergies) RF: 0 sodium chloride [Saline Mist] 0.65 % Aerosol,[place] 1 spray INTRANASAL Q6H PRN (Reason: Congestion) RF: 0 Glucagon Emergency Kit (human) 1 mg Recon Soln 1 mg IM PRN MDD ` PRN (Reason: blood glucose <60) RF: 0 duloxetine 60 mg capsule,delayed release(DR/EC) 60 mg PO BEDTIME RF: 0 nystatin 100,000 unit/gram Cream 1 applic TOPICAL BID PRN (Reason: yeast) RF: 0 oxycodone [OxyContin] 20 mg Tablet,Oral Only,Ext.Rel.12 Hr 20 mg PO Q8H Qty: 20 RF: 0 clonazepam 0.5 mg tablet 0.75 mg PO Q6H PRN (Reason: Anxiety) Qty: 20 RF: 0 Health Shake 1 ea PO QPM RF: 0 Alcohol Liquor 1 ea PO DAILY PRN (Reason: life enjoyment) RF: 0 dextromethorphan polistirex [Delsym 12 hour] 30 mg/5 mL Suspension,Extended Rel 12 Hr 10 ml PO Q12H PRN (Reason: Cough) RF: 0 ibuprofen 400 mg Tablet 400 mg PO Q4H PRN (Reason: pain) RF: 0 bisacodyl 5 mg Tablet,Delayed Release (Dr/Ec) 5 mg PO PRN PRN (Reason: no BM x 2 days) RF: 0 oxycodone 5 mg tablet 5 mg PO Q4H PRN (Reason: pain) RF: 0 doxycycline hyclate 100 mg capsule 100 mg PO [id number] RF: 0 cefdinir 300 mg capsule 300 mg PO [id number] RF: 0 insulin aspart U-100 [Novolog Flexpen U-100 Insulin] 100 unit/mL insulin pen 100 unit SUBCUT QID RF: 0 baclofen 10 mg tablet 10 mg PO TID RF: 0 artifi.tears(hypromellose)(PF) 0.3 % drops 2 drp EYE-BOTH BID RF: 0 Referrals: Eli Canas ARNP [Primary Care Provider] -
[2020-06-01 13:30] LABS: CKMB % Relative Index 0.7 % (1.5-5.0); Creatine Kinase MB 0.73 ng/mL (<2.37)
[2020-06-01] MEDS: SODIUM CHLORIDE 0.9% 1,000 ML 1000 ML IV (13:39)
[2020-06-01] MEDS: OXYCODONE/ACETAMINOPHEN 5/325 TABLET 1 TAB PO (15:54)
== END 2020-06-01 17:30 ==
PROVIDERS: Emergency Provider Emergency Medicine; Family Provider Nurse Practitioner Family; PCP Registered Nurse
DX: E11.649 Type 2 diabetes mellitus with hypoglycemia without coma (principal); Z79.4 Long term (current) use of insulin; I95.9 Hypotension, unspecified; R07.9 Chest pain, unspecified; R21 Rash and other nonspecific skin eruption; I10 Essential (primary) hypertension; E78.5 Hyperlipidemia, unspecified
CPT/HCPCS: 80053; 82550; 82553; 82962; 84484; 85025; 93005; 96360; 96361; 99281; 99284

== ENCOUNTER → 2020-06-06 07:53 | Outpatient (ROUT) | payer MEDICARE, MEDICAID, SELFPAY ==
[2019-03-02 18:01] VITALS: BMI 27.4
[2020-06-06 08:12] LABS: BUN Creatinine Ratio 27.4 (6-22); Blood Urea Nitrogen 23 mg/dL (9-20); Calcium 8.8 mg/dL (8.4-10.2); Carbon Dioxide 32 mmol/L (22-32); Chloride 102 mmol/L (98-107); Estimated Glomerular Filt Rate > 60.0 mL/min (>60); Glucose 281 mg/dL (80-110); HEMOLYSIS < 15 (0-50); Potassium 4.4 mmol/L (3.4-5.1); Sodium 137 mmol/L (137-145)
== END ==
PROVIDERS: Family Provider Nurse Practitioner Family; PCP Registered Nurse; Visit Provider Registered Nurse
DX: I50.9 Heart failure, unspecified (principal)
CPT/HCPCS: 80048

== ENCOUNTER → 2020-06-25 07:46 | Outpatient (ROUT) | payer MEDICARE, MEDICAID, SELFPAY ==
[2019-03-02 18:01] VITALS: BMI 27.4
[2020-06-25 08:08] LABS: Blood Urea Nitrogen 19 mg/dL (9-20); Calcium 8.7 mg/dL (8.4-10.2); Carbon Dioxide 33 mmol/L (22-32); Chloride 104 mmol/L (98-107); Estimated Glomerular Filt Rate > 60.0 mL/min (>60); Glucose 169 mg/dL (80-110); HEMOLYSIS < 15 (0-50); Potassium 4.2 mmol/L (3.4-5.1); Sodium 137 mmol/L (137-145)
== END ==
PROVIDERS: Family Provider Nurse Practitioner Family; PCP Registered Nurse; Visit Provider Internal Medicine
DX: R60.9 Edema, unspecified (principal); E10.9 Type 1 diabetes mellitus without complications
CPT/HCPCS: 36415; 80048; 83036

== ENCOUNTER → 2020-07-16 08:56 | Outpatient (ROUT) | payer MEDICARE, MEDICAID, SELFPAY ==
[2019-03-02 18:01] VITALS: BMI 27.4
[2020-07-16 09:37] LABS: BUN Creatinine Ratio 23.1 (6-22); Blood Urea Nitrogen 21 mg/dL (9-20); Calcium 8.8 mg/dL (8.4-10.2); Carbon Dioxide 35 mmol/L (22-32); Chloride 99 mmol/L (98-107); Estimated Glomerular Filt Rate > 60.0 mL/min (>60); Glucose 105 mg/dL (80-110); HEMOLYSIS < 15 (0-50); Potassium 3.9 mmol/L (3.4-5.1); Sodium 138 mmol/L (137-145)
== END ==
PROVIDERS: Family Provider Nurse Practitioner Family; PCP Registered Nurse; Visit Provider Nurse Practitioner Family
DX: R60.9 Edema, unspecified (principal)
CPT/HCPCS: 36415; 80048

== ENCOUNTER 2020-09-08 20:58 | Emergency (ER) | payer MEDICARE, MEDICAID, SELFPAY ==
[2019-03-02 18:01] VITALS: BMI 27.4
[2020-09-08] VITALS (8 sets, daily range): BP systolic 150–163; BP diastolic 70–77; PULSE 84–92; TEMP 36.6; O2SAT 94–99; BMI 29.4
--- NOTE | 2020-09-08 23:17 | DI.CT.S_ITS ---
PROCEDURE: CT CERVICAL SPINE WO CON INDICATIONS: pain, fall TECHNIQUE: Noncontrast 3 mm thick sections acquired from the skull base to the T4 level. Sagittal and coronal reformats were then constructed. For radiation dose reduction, the following was used: automated exposure control, adjustment of mA and/or kV according to patient size. COMPARISON: None. FINDINGS: Image quality: Excellent. Bones: No acute fractures or dislocations. Chronic appearing mild compression deformities of the T3 and T4 vertebral bodies which result in less than 10% loss of normal superior endplate height. There is approximately 3 millimeters of C3-C4 anterolisthesis. There is focal cervical spine code faces at C3-C5. Visualized superior ribs are intact. Spine degenerative disc disease and facet arthropathy. C3-C5 ankylosis. Severe bilateral C3-C4 neural foraminal narrowing with compression of the exiting C4 nerve roots. Soft tissues: Prevertebral soft tissues are normal in thickness. No paravertebral hematomas. No apical pneumothoraces. IMPRESSION: No acute fracture. No acute osseous lesion. If symptoms and/or clinical suspicion for pathology persists, evaluation with MRI should be considered for further assessment. Dictated by: Dasha Reed MD, PhD on 09/09/2020 at 8:12 Approved by: Dasha Reed MD, PhD on 09/09/2020 at 8:21
--- NOTE | 2020-09-08 23:17 | DI.RAD.S_ITS ---
PROCEDURE: XR CHEST 1V INDICATIONS: pain, fall TECHNIQUE: One view of the chest was acquired. COMPARISON: [facility], CR, XR CHEST 1V, 03/07/2019, 17:27. FINDINGS: Surgical changes and devices: None. Lungs and pleura: Lungs are clear. No pleural effusions or pneumothorax. Mediastinum: Mediastinal contours appear normal. Heart size is normal. Bones and chest wall: Chronic fracture or surgical changes noted in the proximal right humerus which are stable. No suspicious bony lesions. Overlying soft tissues appear unremarkable. IMPRESSION: No acute cardiopulmonary disease process. Dictated by: Dasha Reed MD, PhD on 09/09/2020 at 9:12 Approved by: Dasha Reed MD, PhD on 09/09/2020 at 9:13
--- NOTE | 2020-09-08 23:17 | DI.CT.S_ITS ---
PROCEDURE: CT HEAD/BRAIN WO CON INDICATIONS: pain, fall TECHNIQUE: Noncontrast 4.5 mm thick angled axial sections acquired from the foramen magnum to the vertex, with coronal and sagittal reformats. For radiation dose reduction, the following was used: automated exposure control, adjustment of mA and/or kV according to patient size. COMPARISON: None. FINDINGS: Image quality: Excellent. CSF spaces: Basal cisterns are patent. No extra-axial fluid collections. The ventricles are symmetric in size and shape. Brain: No intracranial bleeds or masses. There is cerebral volume loss for age, with resultant ventricular and sulcal prominence. There are periventricular and deep white matter chronic small vessel ischemic changes. Chronic infarct involving the left thalamus and left internal capsule. Small chronic infarct involving the right thalamus. There is intracranial internal carotid artery and vertebral artery atherosclerosis. Skull and face: Calvarium and visualized facial bones appear intact, without suspicious lesions. Sinuses: Visualized sinuses and mastoids are clear. IMPRESSION: No acute intracranial disease process. Dictated by: Dasha Reed MD, PhD on 09/09/2020 at 7:18 Approved by: Dasha Reed MD, PhD on 09/09/2020 at 7:19
[2020-09-09] MEDS: MAG HYDROX/ALUM/SIMETH 30 ML UDC PO (00:11)
--- NOTE | 2020-09-09 00:54 | ED.FALL ---
HPI - Fall General Chief Complaint: Fall Stated Complaint: Fall Time Seen by Provider: 09/08/20 23:17 Source: patient and EMS Mode of arrival: EMS Limitations: no limitations History of Present Illness HPI Narrative: This is a 65-year-old male who comes with complaint of fall. Patient lives at [facility] living [facility] and is in a wheelchair. He states he was trying to reach over and turn off a light when he fell out and hit his head. He states he waited while but the pain in his neck was not improving so he came to the emergency department. He states it actually feels much better at this time. He is having some income decreased pain in his lower extremities but he states this is chronic and he missed his evening pain medication. Patient denies any loss of consciousness. He denies any nausea or vomiting. No vision changes. No chest pain or shortness of breath. No other new GI or urinary symptoms. 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 He has had no new changes in movement of his extremities. Related Data Home Medications Medication Instructions Recorded Confirmed Maalox Maximum Strength 30 ml PO Q4H PRN #0 06/29/17 03/07/19 acetaminophen 650 mg PO Q4HP PRN #0 06/29/17 03/07/19 atorvastatin 80 mg PO BEDTIME #0 06/29/17 03/07/19 bisacodyl 10 mg VT PRN PRN #0 06/29/17 03/07/19 bisacodyl [Fleet Laxative 10 mg PO PRN PRN #0 06/29/17 03/07/19 (bisacodyl)] clopidogrel 75 mg PO DAILY #0 06/29/17 03/07/19 levothyroxine 50 mcg PO QPM #0 06/29/17 03/07/19 metoprolol succinate [Toprol XL] 12.5 mg PO DAILY #0 06/29/17 03/07/19 omeprazole 20 mg PO DAILY #0 06/29/17 03/07/19 sennosides [senna] 17.2 mg PO BEDTIME #0 06/29/17 03/07/19 artifi.tears(hypromellose)(PF) 0.3 2 drp EYE-BOTH BID ml 11/25/17 03/07/19 % eye drops baclofen 10 mg tablet 10 mg PO TID 11/25/17 03/07/19 insulin aspart U-100 100 unit/mL 100 unit SUBCUT QID 11/25/17 03/07/19 (3 mL) subcutaneous pen docusate sodium 2 tab PO BID 03/05/18 03/07/19 magnesium hydroxide [Milk of 30 ml PO PRN PRN 03/05/18 03/07/19 Magnesia] ammonium lactate 1 applic TOPICAL BID PRN 08/13/18 03/07/19 calcium carbonate 1,200 mg PO QPM 08/13/18 03/07/19 cholecalciferol (vitamin D3) 1,000 unit PO QPM 08/13/18 03/07/19 fluticasone propionate 1 spray INTRANASAL BID 08/13/18 03/07/19 guaifenesin [Mucinex] 600 mg PO Q12H 08/13/18 03/07/19 hydroxyzine pamoate 25 - 50 mg PO Q6H PRN 08/13/18 03/07/19 insulin glargine 8 unit SUBCUT BID 08/13/18 03/07/19 mirtazapine 22.5 mg PO BEDTIME 08/13/18 03/07/19 ondansetron 4 mg PO Q4H PRN 08/13/18 03/07/19 vitamin B complex [B 1 tab PO QPM 08/13/18 03/07/19 Complex-Vitamin B12] cetirizine 10 mg PO DAILY PRN 01/25/19 03/07/19 sodium chloride [Saline Mist] 1 spray INTRANASAL Q6H PRN 01/25/19 03/07/19 aspirin 325 mg PO DAILY 02/20/19 03/07/19 furosemide 40 mg PO DAILY 02/20/19 03/07/19 Glucagon Emergency Kit (human) 1 mg IM PRN PRN MDD ` 03/02/19 03/07/19 duloxetine 60 mg PO BEDTIME 03/02/19 03/07/19 nystatin 1 applic TOPICAL BID PRN 03/02/19 03/07/19 Alcohol Liquor 1 ea PO DAILY PRN 03/07/19 03/07/19 Health Shake 1 ea PO QPM 03/07/19 03/07/19 bisacodyl 5 mg PO PRN PRN 03/07/19 03/07/19 cefdinir 300 mg PO BIDX4D 03/07/19 03/07/19 dextromethorphan polistirex 10 ml PO Q12H PRN 03/07/19 03/07/19 [Delsym 12 hour] doxycycline hyclate 100 mg PO BIDX4D 03/07/19 03/07/19 ibuprofen 400 mg PO Q4H PRN 03/07/19 03/07/19 oxycodone 5 mg PO Q4H PRN 03/07/19 03/07/19 Previous Rx's Medication Instructions Recorded clonazepam 0.75 mg PO Q6H PRN #20 tab 03/05/19 oxycodone [OxyContin] 20 mg PO Q8H #20 tab 03/05/19 Allergies Allergy/AdvReac Type Severity Reaction Status Date / Time amitriptyline Allergy Verified 09/08/20 21:36 pollen extracts Allergy Verified 09/08/20 21:36 codeine [CODEINE] AdvReac Unknown nausea Verified 09/08/20 21:15 Review of Systems Review of Systems ROS Unobtainable: All systems reviewed & are unremarkable except as noted in HPI and below Patient History Medical History (Updated 09/09/20 @ 01:08 by Lara Acharya DO) C3 spinal cord injury C4 spinal cord injury CVA (cerebral vascular accident) Diabetes Gastroesophageal reflux disease Hyperlipidemia Hypertension Surgical History History of carotid endarterectomy History of coronary artery stent placement No pertinent past surgical history Family History Mother Cancer Father Lung disease Hyperlipidemia Brother Lupus Social History household members: caregiver Smoking Status: Current every day smoker alcohol intake: current substance use type: does not use additional social history: He currently resides in He currently resides in [facility]. Smoking Status: Current every day smoker tobacco type: cigarettes alcohol intake frequency: a few times a week Substance Use Type: does not use Exam Narrative Exam Narrative: GEN: C-collar in ED. Patient appears in mild distress. HEAD: No evidence of trauma, no raccoon/[place] sign. NECK: Nontender, painless range of motion, trachea midline Positive for Nexus criteria, there is mild midline tenderness, distracting injury, altered mental status, neuro deficit, recent EtOH. EYES: PERRLA, EOMI ENT: External inspection normal, trachea is midline, Nares are clear, no septal hematoma, no dental or oral injury, airway is normal and with normal occlusion, No bony tenderness RESP: Chest is nontender and has symmetric movement, no ecchymosis, breath sounds are normal no crackles, wheezes or rales CVS: Heart sounds are normal, no murmur noted, No JVD. ABG/GI: Nontender, soft, normal bowel sounds, no distention, no organomegaly, pelvic rock is negative NEURO: Oriented AOx3, neuro is grossly intact, sensation and motor is normal all 4 extremities moving, cranial nerves II through XII are intact, GCS is 15 PSYCH: Normal mood and affect SKIN: Intact, warm and dry, no crepitus and without decubitus BACK: No CVA tenderness, no vertebral tenderness, no step-off's, no crepitus EXT: Atraumatic, patient has a right lower extremity BKA. Hips are nontender, no pedal edema, normal color and temperature, normal range of motion of extremities with normal tendon exam. Initial Vital Signs Initial Vital Signs: Vital Signs Pulse Rate 92 H 09/08/20 21:09 Pulse Oximetry 98 09/08/20 21:09 Scores GCS [place] coma scale eye opening: Spontaneous Jr coma scale verbal response: Orientated Jr coma scale motor response: Obey commands [place] coma scale total score: 15 Course Orders Ordered: ED Orders 09/08/20 23:17 CT cervical spine wo con Stat CT head/brain wo con Stat XR chest 1V Stat Discontinued Medications Al Hydrox/Mg Hydrox/Simethicone (Mag Hydrox/Alum/Simeth 30 Ml Udc) 30 ml PO NOW ONE Stop: 09/09/20 00:07 Last Admin: 09/09/20 00:11 Dose: 30 ml Documented by: EAYOEL Morphine Sulfate (Morphine 4 Mg/Ml Inj) 4 mg IM NOW ONE Stop: 09/09/20 01:04 Last Admin: 09/09/20 01:15 Dose: 4 mg Documented by: RAIZA Oxycodone HCl (Oxycodone Er 10 Mg Tab) 20 mg PO NOW ONE Stop: 09/09/20 03:10 Oxycodone HCl (Oxycodone Er 10 Mg Tab) 20 mg PO Q8HR EUGENE Vital Signs Vital signs: Vital Signs - 8 hr 09/09/20 01:19 09/09/20 01:20 Pulse Rate 94 H Respiratory Rate 16 Blood Pressure 100/53 L Pulse Oximetry 96 94 MDM - Fall Imaging Data CT scan - head: Radiologist's Impression: No acute process. CT - cervical spine: Radiologist's Impression: Postsurgical and or old trauma at C3-C5 without hardware. There is bony fusion there is loss of lordosis centered at C4 with kyphosis. Posterior margin is super protrudes into the anterior spinal canal. Mild spinal stenosis at this level. Multi degenerative changes noted throughout the spine. Anterior positioning of posterior elements of C3 relative to C2 and for and appearance suggests chronic disease. No acute fracture dislocation it demonstrated. Posterior alignment is normal except at the C4 level. No other bony abnormalities peak Chest x-ray: Radiologist's Impression: Patient indeterminate lower left lateral rib fractures. [facility] Narrative Medical decision making narrative: This is a 65-year-old male with prior cervical injury and stroke and insulin-dependent diabetes who had a fall from his wheelchair will trying to turn and reached to switch off a light. Patient had increasing neck pain which he states has actually been improving while he has been here in the department. Imaging does not show any acute changes. Patient does not have any clear acute neurologic changes and he is nontender on repeat evaluation. He did miss his evening dose of pain medications so was given a shot of morphine IM while awaiting transfer back to his facility. Discharge Plan Departure Patient Disposition: Home Clinical Impression: Status post fall, Neck pain Activity Restrictions/Additional Instructions: Follow-up with your physician or return if you are having no improvement in your symptoms. Your CT imaging today show changes consistent with her prior fusion at C3-4. There is also appearance of rib fractures on your chest x-ray although you are nontender in this area so my suspicion for new rib fractures is low. Continue home medications as prescribed. Please return for new or worsening neck, back, chest or abdominal pain. For having severe headaches, lightheadedness or passing out, persistent vomiting, new weakness, loss of sensation or other neurologic changes or other new or concerning symptoms. Prescriptions: No Action atorvastatin 80 MG tablet 80 mg PO BEDTIME Qty: 0 RF: 0 clopidogrel 75 MG tablet 75 mg PO DAILY Qty: 0 RF: 0 levothyroxine 50 MCG tablet 50 mcg PO QPM Qty: 0 RF: 0 metoprolol succinate [Toprol XL] 25 MG tablet extended release 24 hr 12.5 mg PO DAILY Qty: 0 RF: 0 sennosides [senna] 8.6 MG tablet 17.2 mg PO BEDTIME Qty: 0 RF: 0 acetaminophen 325 MG tablet 650 mg PO Q4HP PRN (Reason: Fever Or Pain) Qty: 0 RF: 0 omeprazole 20 MG capsule,delayed release(DR/EC) 20 mg PO DAILY Qty: 0 RF: 0 bisacodyl 10 MG suppository 10 mg VT PRN PRN (Reason: Constipation) Qty: 0 RF: 0 bisacodyl [Fleet Laxative (bisacodyl)] 5 MG tablet,delayed release (DR/EC) 10 mg PO PRN PRN (Reason: no BM x 3 days ) Qty: 0 RF: 0 Maalox Maximum Strength 355 ML suspension 30 ml PO Q4H PRN (Reason: gi upset) Qty: 0 RF: 0 magnesium hydroxide [Milk of Magnesia] 400 mg/5 mL Suspension 30 ml PO PRN PRN (Reason: Constipation) RF: 0 docusate sodium 100 mg Capsule 2 tab PO BID RF: 0 aspirin 325 mg Tablet,Delayed Release (Dr/Ec) 325 mg PO DAILY RF: 0 furosemide 40 mg tablet 40 mg PO DAILY RF: 0 calcium carbonate 600 mg calcium (1,500 mg) Tablet 1,200 mg PO QPM RF: 0 vitamin B complex [B Complex-Vitamin B12] Tablet 1 tab PO QPM RF: 0 mirtazapine 15 mg Tablet 22.5 mg PO BEDTIME RF: 0 fluticasone propionate 50 mcg/actuation [place],Suspension 1 spray INTRANASAL BID RF: 0 cholecalciferol (vitamin D3) 1,000 unit Capsule 1,000 unit PO QPM RF: 0 hydroxyzine pamoate 25 mg Capsule 25 - 50 mg PO Q6H PRN (Reason: pain/spasms) RF: 0 insulin glargine 100 unit/mL (3 mL) Insulin Pen 8 unit SUBCUT BID RF: 0 ondansetron 4 mg Tablet,Disintegrating 4 mg PO Q4H PRN (Reason: Nausea) RF: 0 ammonium lactate 12 % Lotion 1 applic TOPICAL BID PRN (Reason: Dry Skin) RF: 0 guaifenesin [Mucinex] 600 mg Tablet Extended Release 12hr 600 mg PO Q12H RF: 0 cetirizine 10 mg Tablet 10 mg PO DAILY PRN (Reason: allergies) RF: 0 sodium chloride [Saline Mist] 0.65 % Aerosol,[place] 1 spray INTRANASAL Q6H PRN (Reason: Congestion) RF: 0 Glucagon Emergency Kit (human) 1 mg Recon Soln 1 mg IM PRN MDD ` PRN (Reason: blood glucose <60) RF: 0 duloxetine 60 mg capsule,delayed release(DR/EC) 60 mg PO BEDTIME RF: 0 nystatin 100,000 unit/gram Cream 1 applic TOPICAL BID PRN (Reason: yeast) RF: 0 oxycodone [OxyContin] 20 mg Tablet,Oral Only,Ext.Rel.12 Hr 20 mg PO Q8H Qty: 20 RF: 0 clonazepam 0.5 mg tablet 0.75 mg PO Q6H PRN (Reason: Anxiety) Qty: 20 RF: 0 Health Shake 1 ea PO QPM RF: 0 Alcohol Liquor 1 ea PO DAILY PRN (Reason: life enjoyment) RF: 0 dextromethorphan polistirex [Delsym 12 hour] 30 mg/5 mL Suspension,Extended Rel 12 Hr 10 ml PO Q12H PRN (Reason: Cough) RF: 0 ibuprofen 400 mg Tablet 400 mg PO Q4H PRN (Reason: pain) RF: 0 bisacodyl 5 mg Tablet,Delayed Release (Dr/Ec) 5 mg PO PRN PRN (Reason: no BM x 2 days) RF: 0 oxycodone 5 mg tablet 5 mg PO Q4H PRN (Reason: pain) RF: 0 doxycycline hyclate 100 mg capsule 100 mg PO [id number] RF: 0 cefdinir 300 mg capsule 300 mg PO [id number] RF: 0 insulin aspart U-100 [Novolog Flexpen U-100 Insulin] 100 unit/mL insulin pen 100 unit SUBCUT QID RF: 0 baclofen 10 mg tablet 10 mg PO TID RF: 0 artifi.tears(hypromellose)(PF) 0.3 % drops 2 drp EYE-BOTH BID RF: 0 Referrals: Eli Canas ARNP [Primary Care Provider] -
[2020-09-09] MEDS: MORPHINE 4 MG/ML INJ IM (01:15)
[2020-09-09 01:19] VITALS: O2SAT 96
[2020-09-09 01:20] VITALS: BP 100/53; PULSE 93; PULSE 94; RESP 16; O2SAT 94; O2SAT 95
== END 2020-09-09 04:30 | disposition home or self-care (01) ==
PROVIDERS: Emergency Provider Emergency Medicine; Family Provider Nurse Practitioner Family; PCP Registered Nurse
DX: M54.2 Cervicalgia (principal); R07.9 Chest pain, unspecified; S09.90XA Unspecified injury of head, initial encounter; W05.0XXA Fall from non-moving wheelchair, initial encounter
CPT/HCPCS: 70450; 71045; 72125; 96372; 99284; J2270

== ENCOUNTER → 2020-09-17 08:29 | Outpatient (ROUT) | payer MEDICARE, MEDICAID, SELFPAY ==
[2019-03-02 18:01] VITALS: BMI 27.4
[2020-09-17 08:58] LABS: Add Manual Diff / Slide Review NO; Basophils Absolute Auto 100 /uL (0-100); Basophils Percent Auto 0.9 % (0-2); Eosinophils Absolute Auto 400 /uL (0-450); Eosinophils Percent Auto 5.4 % (2-4); Hematocrit 36.9 % (41-53); Hemoglobin 12.4 g/dL (13.5-17.5); Lymphocytes Absolute Auto 1900 /uL (1100-4500); Lymphocytes Percent Auto 26.1 % (25-40); Mean Corpuscular HGB Conc 33.5 % (30-36); Mean Corpuscular Hemoglobin 29.8 PG (26-34); Monocytes Absolute Auto 800 /uL (0-900); Monocytes Percent Auto 11.6 % (3-14); Neutrophils Absolute Auto 4000 /uL (1500-7000); Platelet Count 311 X10^3/uL (150-400); Red Blood Cell Count 4.15 X10^6/uL (4.5-5.9); Red Cell Distribution Width 14.7 % (11.6-14.8); White Blood Cell Count 7.2 X10^3/uL (4.5-11.0)
[2020-09-17 09:24] LABS: BUN Creatinine Ratio 21.6 (6-22); Blood Urea Nitrogen 21 mg/dL (9-20); Carbon Dioxide 32 mmol/L (22-32); Chloride 98 mmol/L (98-107); Estimated Glomerular Filt Rate > 60.0 mL/min (>60); Glucose 285 mg/dL (80-110); HEMOLYSIS < 15 (0-50); Potassium 4.1 mmol/L (3.4-5.1); Sodium 135 mmol/L (137-145)
== END ==
PROVIDERS: Family Provider Nurse Practitioner Family; PCP Registered Nurse; Visit Provider Internal Medicine
DX: L08.9 Local infection of the skin and subcutaneous tissue, unspecified (principal); Z79.899 Other long term (current) drug therapy
CPT/HCPCS: 36415; 80048; 85025

== ENCOUNTER → 2020-09-19 20:14 | Outpatient (ROUT) | payer MEDICARE, MEDICAID, SELFPAY ==
[2019-03-02 18:01] VITALS: BMI 27.4
== END ==
PROVIDERS: Family Provider Nurse Practitioner Family; PCP Registered Nurse; Visit Provider Nurse Practitioner Family
DX: T14.8XXA Other injury of unspecified body region, initial encounter (principal); S81.801A Unspecified open wound, right lower leg, initial encounter; T87.43 Infection of amputation stump, right lower extremity
CPT/HCPCS: 87070; 87075; 87077; 87147; 87186; 87205

== ENCOUNTER → 2020-09-26 07:57 | Outpatient (ROUT) | payer MEDICARE, MEDICAID, SELFPAY ==
[2019-03-02 18:01] VITALS: BMI 27.4
[2020-09-26 08:33] LABS: Add Manual Diff / Slide Review NO; Basophils Absolute Auto 100 /uL (0-100); Basophils Percent Auto 0.9 % (0-2); Eosinophils Absolute Auto 500 /uL (0-450); Eosinophils Percent Auto 7.2 % (2-4); Hematocrit 36.2 % (41-53); Hemoglobin 12.1 g/dL (13.5-17.5); Lymphocytes Absolute Auto 2300 /uL (1100-4500); Lymphocytes Percent Auto 30.7 % (25-40); Mean Corpuscular HGB Conc 33.5 % (30-36); Mean Corpuscular Hemoglobin 29.6 PG (26-34); Mean Corpuscular Volume 88.5 fL (80-100); Monocytes Absolute Auto 700 /uL (0-900); Monocytes Percent Auto 8.6 % (3-14); Neutrophils Absolute Auto 4000 /uL (1500-7000); Neutrophils Percent Auto 52.6 % (50-75); Platelet Count 345 X10^3/uL (150-400); Red Blood Cell Count 4.09 X10^6/uL (4.5-5.9); Red Cell Distribution Width 14.7 % (11.6-14.8); White Blood Cell Count 7.6 X10^3/uL (4.5-11.0)
[2020-09-26 08:52] LABS: BUN Creatinine Ratio 19.6 (6-22); Blood Urea Nitrogen 19 mg/dL (9-20); Calcium 8.7 mg/dL (8.4-10.2); Carbon Dioxide 32 mmol/L (22-32); Chloride 103 mmol/L (98-107); Estimated Glomerular Filt Rate > 60.0 mL/min (>60); HEMOLYSIS < 15 (0-50); Potassium 3.7 mmol/L (3.4-5.1); Sodium 138 mmol/L (137-145)
[2020-09-26 09:30] LABS: Glucose 40 mg/dL (80-110)
== END ==
PROVIDERS: Family Provider Nurse Practitioner Family; PCP Registered Nurse; Visit Provider Internal Medicine
DX: L08.9 Local infection of the skin and subcutaneous tissue, unspecified (principal); Z79.899 Other long term (current) drug therapy
CPT/HCPCS: 36415; 80048; 85025

== ENCOUNTER 2020-09-28 00:51 | Emergency (ER) | payer MEDICARE, MEDICAID, SELFPAY ==
[2019-03-02 18:01] VITALS: BMI 27.4
[2020-09-28] VITALS (7 sets, daily range): BP systolic 128–213; BP diastolic 61–99; PULSE 80–90; RESP 12–17; TEMP 36.6; O2SAT 95–98; BMI 24.3
--- NOTE | 2020-09-28 01:00 | ED_ITS ---
HPI - General Adult General Chief complaint: Hypertension Stated complaint: HTN Time Seen by Provider: 09/28/20 01:00 Source: patient and EMS Limitations: no limitations History of Present Illness HPI narrative: Patient is a 65-year-old male with history of 3 CVAs presenting with hypertension. He apparently has headache process forehead on going his blood pressure was taken and noted to be significantly elevated with a systolic over 200. He states that he is not actually taking any blood pressure medication which after reviewing his MA are seems to be true although he is on Lasix for congestive heart failure. he denies any chest pain shortness of breath numbness tingling or weakness. He has some right-sided deficits from previous stroke. Patient states that he has actually had increasing chronic neck and back pain. Mostly neck pain he has had C2 through C6 fused. He complains of nerve pain he is already taking gabapentin any takes oxycodone for it. He says over the last 1 week as his blood pressure has been variable also has his pain in his neck. He states he took the oxycodone 10 minutes prior to arrival, which he says takes 45 minutes before it kicks in. Related Data Home Medications Medication Instructions Recorded Confirmed Maalox Maximum Strength 30 ml PO Q4H PRN #0 06/29/17 03/07/19 acetaminophen 650 mg PO Q4HP PRN #0 06/29/17 03/07/19 atorvastatin 80 mg PO BEDTIME #0 06/29/17 03/07/19 bisacodyl 10 mg VT PRN PRN #0 06/29/17 03/07/19 bisacodyl [Fleet Laxative 10 mg PO PRN PRN #0 06/29/17 03/07/19 (bisacodyl)] clopidogrel 75 mg PO DAILY #0 06/29/17 03/07/19 levothyroxine 50 mcg PO QPM #0 06/29/17 03/07/19 metoprolol succinate [Toprol XL] 12.5 mg PO DAILY #0 06/29/17 03/07/19 omeprazole 20 mg PO DAILY #0 06/29/17 03/07/19 sennosides [senna] 17.2 mg PO BEDTIME #0 06/29/17 03/07/19 artifi.tears(hypromellose)(PF) 0.3 2 drp EYE-BOTH BID ml 11/25/17 03/07/19 % eye drops baclofen 10 mg tablet 10 mg PO TID 11/25/17 03/07/19 insulin aspart U-100 100 unit/mL 100 unit SUBCUT QID 11/25/17 03/07/19 (3 mL) subcutaneous pen docusate sodium 2 tab PO BID 03/05/18 03/07/19 magnesium hydroxide [Milk of 30 ml PO PRN PRN 03/05/18 03/07/19 Magnesia] ammonium lactate 1 applic TOPICAL BID PRN 08/13/18 03/07/19 calcium carbonate 1,200 mg PO QPM 08/13/18 03/07/19 cholecalciferol (vitamin D3) 1,000 unit PO QPM 08/13/18 03/07/19 fluticasone propionate 1 spray INTRANASAL BID 08/13/18 03/07/19 guaifenesin [Mucinex] 600 mg PO Q12H 08/13/18 03/07/19 hydroxyzine pamoate 25 - 50 mg PO Q6H PRN 08/13/18 03/07/19 insulin glargine 8 unit SUBCUT BID 08/13/18 03/07/19 mirtazapine 22.5 mg PO BEDTIME 08/13/18 03/07/19 ondansetron 4 mg PO Q4H PRN 08/13/18 03/07/19 vitamin B complex [B 1 tab PO QPM 08/13/18 03/07/19 Complex-Vitamin B12] cetirizine 10 mg PO DAILY PRN 01/25/19 03/07/19 sodium chloride [Saline Mist] 1 spray INTRANASAL Q6H PRN 01/25/19 03/07/19 aspirin 325 mg PO DAILY 02/20/19 03/07/19 furosemide 40 mg PO DAILY 02/20/19 03/07/19 Glucagon Emergency Kit (human) 1 mg IM PRN PRN MDD ` 03/02/19 03/07/19 duloxetine 60 mg PO BEDTIME 03/02/19 03/07/19 nystatin 1 applic TOPICAL BID PRN 03/02/19 03/07/19 Alcohol Liquor 1 ea PO DAILY PRN 03/07/19 03/07/19 Health Shake 1 ea PO QPM 03/07/19 03/07/19 bisacodyl 5 mg PO PRN PRN 03/07/19 03/07/19 cefdinir 300 mg PO BIDX4D 03/07/19 03/07/19 dextromethorphan polistirex 10 ml PO Q12H PRN 03/07/19 03/07/19 [Delsym 12 hour] doxycycline hyclate 100 mg PO BIDX4D 03/07/19 03/07/19 ibuprofen 400 mg PO Q4H PRN 03/07/19 03/07/19 oxycodone 5 mg PO Q4H PRN 03/07/19 03/07/19 Previous Rx's Medication Instructions Recorded clonazepam 0.75 mg PO Q6H PRN #20 tab 03/05/19 oxycodone [OxyContin] 20 mg PO Q8H #20 tab 03/05/19 Allergies Allergy/AdvReac Type Severity Reaction Status Date / Time amitriptyline Allergy Verified 09/28/20 01:00 pollen extracts Allergy Verified 09/28/20 01:00 codeine [CODEINE] AdvReac Unknown nausea Verified 09/28/20 01:00 Review of Systems Review of Systems ROS Unobtainable: All systems reviewed & are unremarkable except as noted in HPI and below Constitutional Constitutional: Denies chills, Denies fever(s), Reports headache(s), Denies lethargy and Denies weakness Eyes Eyes: Denies blurry vision and Denies diplopia ENT Ears, Nose, Mouth, and Throat: Denies change in voice, Denies vertigo, Denies dizziness, Reports headache(s), Denies neck pain and Denies sore throat Cardiovascular Cardiovascular: Denies chest pain, Denies syncope, Denies irregular heart rhythm, Denies lightheadedness, Denies palpitations, Denies dyspnea, Denies dyspnea on exertion and Denies orthopnea Respiratory Respiratory: Denies cough, Denies dyspnea, Denies dyspnea on exertion and Denies wheezing Gastrointestinal Gastrointestinal: Denies abdominal pain, Denies change in bowel habits, Denies diarrhea, Denies nausea and Denies vomiting Musculoskeletal Musculoskeletal: Denies neck pain and Denies numbness Integumentary/Breasts Skin/Breast: Denies pruritus, Denies erythema, Denies rash and Denies wounds Neurologic Neurologic: Reports as per HPI, Denies vertigo, Denies dizziness, Denies syncope, Reports headache(s), Denies numbness, Denies other visual disturbances and Denies weakness Endocrine Endocrine: Denies palpitations Allergic/Immunologic Allergic/Immunologic: Denies wheezing Patient History Medical History (Updated 09/28/20 @ 02:48 by Alanis Ureña DO) C3 spinal cord injury C4 spinal cord injury CVA (cerebral vascular accident) Diabetes Gastroesophageal reflux disease Hyperlipidemia Hypertension Surgical History History of carotid endarterectomy History of coronary artery stent placement No pertinent past surgical history Family History Mother Cancer Father Lung disease Hyperlipidemia Brother Lupus Social History household members: caregiver Smoking Status: Current every day smoker alcohol intake: current substance use type: does not use additional social history: He currently resides in He currently resides in [facility]. Smoking Status: Current every day smoker tobacco type: cigarettes alcohol intake frequency: a few times a week Substance Use Type: does not use Exam Initial Vital Signs Initial Vital Signs: Vital Signs Temperature 98 F 09/28/20 00:56 Pulse Rate 85 09/28/20 00:56 Respiratory Rate 17 09/28/20 00:56 Blood Pressure 213/99 H 09/28/20 00:56 Pulse Oximetry 98 09/28/20 00:56 GENERAL: Alert 65-year-old male and in no acute distress. HEENT: Head atraumatic,EOMI, pupils reactive, face symmetric, moist mucous membranes CARDIOVASCULAR: Regular rate and rhythm without murmurs, rubs or gallops. RESPIRATORY: Breath sounds equal bilaterally, no wheezes rales or rhonchi. ABDOMEN: Soft, nontender. Normoactive bowel sounds all 4 quadrants. No guarding or rebound. EXTREMITIES: Normal range of motion, no clubbing or edema. Neurovascularly intact. Right [id number] amputation NEUROLOGICAL: Alert and oriented [id number] gait and speech. Baseline right-sided weakness no new deficits SKIN: Warm, dry, no laceration, no petechiae, no rashes or lesions. Course Orders Ordered: ED Orders 09/28/20 01:01 CT head/brain wo con Stat 09/28/20 01:02 Urine Drug Screen, Rapid Stat 09/28/20 01:05 Complete Blood Count AUTO DIFF Stat Comprehensive Metabolic Panel Stat Partial Thromboplastin Time Stat Prothrombin Time INR Stat Troponin & CK Cardiac Panel Stat 09/28/20 01:13 EKG-12 Lead Stat Discontinued Medications Acetaminophen (Acetaminophen 325 Mg Tablet) 975 mg PO NOW ONE Stop: 09/28/20 01:31 Last Admin: 09/28/20 01:39 Dose: 975 mg Documented by: JUDITH Morphine Sulfate (Morphine 4 Mg/Ml Inj) 4 mg IV NOW ONE Stop: 09/28/20 02:40 Last Admin: 09/28/20 02:42 Dose: 4 mg Documented by: JUDITH Vital Signs Vital signs: Vital Signs - 8 hr 09/28/20 00:56 09/28/20 01:01 09/28/20 01:26 Temperature 98 F Pulse Rate 85 83 90 Respiratory Rate 17 15 16 Blood Pressure 213/99 H 160/85 H 143/66 H Pulse Oximetry 98 96 09/28/20 01:30 09/28/20 02:00 09/28/20 02:30 Temperature Pulse Rate 84 80 82 Respiratory Rate 15 12 12 Blood Pressure 191/88 H 170/80 H 139/63 Pulse Oximetry 97 97 95 09/28/20 03:00 Temperature Pulse Rate 82 Respiratory Rate 12 Blood Pressure 128/61 Pulse Oximetry 95 Medical Decision Making Lab Data Lab results reviewed: Yes I reviewed the patient's lab results. Result diagrams: 09/28/20 01:05 09/28/20 01:05 Labs: Lab Results 09/28/20 09/28/20 09/28/20 Range/Units 01:05 01:05 01:05 WBC 8.8 (4.5-11.0) X10^3/uL RBC 4.51 (4.5-5.9) X10^6/uL Hgb 13.4 L (13.5-17.5) g/dL Hct 40.3 L (41-53) % MCV 89.2 (80-100) fL MCH 29.6 (26-34) PG MCHC 33.2 (30-36) % RDW 14.3 (11.6-14.8) % Plt Count 331 (150-400) X10^3/uL Neut % (Auto) 55.5 (50-75) % Lymph % (Auto) 26.6 (25-40) % [place] % (Auto) 8.0 (3-14) % Eos % (Auto) 9.0 H (2-4) % Baso % (Auto) 0.9 (0-2) % Neut # (Auto) 4900 (8095-3003) /uL Lymph # (Auto) 2300 (4887-8448) /uL [place] # (Auto) 700 (0-900) /uL Eos # (Auto) 800 H (0-450) /uL Baso # (Auto) 100 (0-100) /uL PT 11.7 (10.1-12.7) SECONDS INR 1.0 (0.9-1.3) APTT 37 H D (26.4-36.2) SECONDS Sodium 140 (137-145) mmol/L Potassium 4.5 (3.4-5.1) mmol/L Chloride 102 (98-107) mmol/L Carbon Dioxide 28 (22-32) mmol/L BUN 23 H (9-20) mg/dL Creatinine 0.94 (0.66-1.25) mg/dL Estimated GFR > 60.0 (>60) mL/min BUN/Creatinine Ratio 24.5 H (6-22) Glucose 79 L (80-110) mg/dL Calcium 9.2 (8.4-10.2) mg/dL Total Bilirubin 0.3 (0.2-1.3) mg/dL AST 42 (17-59) IU/L ALT 38 (<50) IU/L Alkaline Phosphatase 127 H (38-126) U/L Total Creatine Kinase 77 (55-170) U/L CK-MB (CK-2) TNP CK-MB (CK-2) Rel Index TNP Troponin I < 0.012 (0.01-0.034) ng/mL Total Protein 7.4 (6.3-8.2) g/dL Albumin 4.3 (3.5-5.0) g/dL Globulin 3.1 (1.7-4.1) g/dL Albumin/Globulin Ratio 1.4 (1.0-2.8) Imaging Data CT scan - head: Radiologist's Impression: The preliminary report no CT evidence of acute intracranial abnormality. Cerebral volume loss, intracranial atherosclerotic disease and mild sequela of chronic small-vessel ischemic disease ECG Data Attestation: I personally reviewed and interpreted this ECG as follows: Prior ECG tracings: available for review Interpretation: Normal sinus rhythm rate 84 p.r. interval 128 QRS [address] changes or T-wave inversions similar to previous EKG MDM Narrative Medical decision making narrative: Initial blood pressure on the right arm shows a systolic of 107 is reviewed blood pressure on left arm shows a systolic of 213 however immediately after it showed systolic in the 170s. Patient has no chest pain abdominal pain nausea or vomiting. At this time I do not think he has dissection. Blood pressure has improved to systolic in the 130s without any intervention in the emergency department move. He feels like his pain is better his after the oxycodone but i not gone. I suspect that pain is causing his blood pressure variability rather than blood pressure problem. However patient is high risk for stroke he has had 3 strokes and actually is not on any proper informed medication. Patient states is blood pressure has been well controlled until recently. I recommend he talk to this up with his primary care provider. Patient is given 1 dose of morphine in the ED he overall is feeling significantly better blood pressure has also improved. Discharge Plan Departure Patient Disposition: Home Clinical Impression: Chronic neck pain Instructions: DI for High Blood Pressure, Chronic Neck Pain Activity Restrictions/Additional Instructions: *You have been diagnosed with chronic neck pain *What to do: I believe your blood pressure elevation to be related to pain. If you are needing more pain control please discuss with your primary care provider. However it was noticed that you are not on blood pressure medication please discuss with her primary care provider about this. Blood pressure control help prevent strokes. *Continue to take medications as directed *Follow up with your primary care provider in 2-3 days *Return to ER if you should have worsening headache, weakness, persistently elevated blood pressure more than systolic 185 or any new, worsening or concerning symptoms Prescriptions: No Action atorvastatin 80 MG tablet 80 mg PO BEDTIME Qty: 0 RF: 0 clopidogrel 75 MG tablet 75 mg PO DAILY Qty: 0 RF: 0 levothyroxine 50 MCG tablet 50 mcg PO QPM Qty: 0 RF: 0 metoprolol succinate [Toprol XL] 25 MG tablet extended release 24 hr 12.5 mg PO DAILY Qty: 0 RF: 0 sennosides [senna] 8.6 MG tablet 17.2 mg PO BEDTIME Qty: 0 RF: 0 acetaminophen 325 MG tablet 650 mg PO Q4HP PRN (Reason: Fever Or Pain) Qty: 0 RF: 0 omeprazole 20 MG capsule,delayed release(DR/EC) 20 mg PO DAILY Qty: 0 RF: 0 bisacodyl 10 MG suppository 10 mg VT PRN PRN (Reason: Constipation) Qty: 0 RF: 0 bisacodyl [Fleet Laxative (bisacodyl)] 5 MG tablet,delayed release (DR/EC) 10 mg PO PRN PRN (Reason: no BM x 3 days ) Qty: 0 RF: 0 Maalox Maximum Strength 355 ML suspension 30 ml PO Q4H PRN (Reason: gi upset) Qty: 0 RF: 0 magnesium hydroxide [Milk of Magnesia] 400 mg/5 mL Suspension 30 ml PO PRN PRN (Reason: Constipation) RF: 0 docusate sodium 100 mg Capsule 2 tab PO BID RF: 0 aspirin 325 mg Tablet,Delayed Release (Dr/Ec) 325 mg PO DAILY RF: 0 furosemide 40 mg tablet 40 mg PO DAILY RF: 0 calcium carbonate 600 mg calcium (1,500 mg) Tablet 1,200 mg PO QPM RF: 0 vitamin B complex [B Complex-Vitamin B12] Tablet 1 tab PO QPM RF: 0 mirtazapine 15 mg Tablet 22.5 mg PO BEDTIME RF: 0 fluticasone propionate 50 mcg/actuation [place],Suspension 1 spray INTRANASAL BID RF: 0 cholecalciferol (vitamin D3) 1,000 unit Capsule 1,000 unit PO QPM RF: 0 hydroxyzine pamoate 25 mg Capsule 25 - 50 mg PO Q6H PRN (Reason: pain/spasms) RF: 0 insulin glargine 100 unit/mL (3 mL) Insulin Pen 8 unit SUBCUT BID RF: 0 ondansetron 4 mg Tablet,Disintegrating 4 mg PO Q4H PRN (Reason: Nausea) RF: 0 ammonium lactate 12 % Lotion 1 applic TOPICAL BID PRN (Reason: Dry Skin) RF: 0 guaifenesin [Mucinex] 600 mg Tablet Extended Release 12hr 600 mg PO Q12H RF: 0 cetirizine 10 mg Tablet 10 mg PO DAILY PRN (Reason: allergies) RF: 0 sodium chloride [Saline Mist] 0.65 % Aerosol,[place] 1 spray INTRANASAL Q6H PRN (Reason: Congestion) RF: 0 Glucagon Emergency Kit (human) 1 mg Recon Soln 1 mg IM PRN MDD ` PRN (Reason: blood glucose <60) RF: 0 duloxetine 60 mg capsule,delayed release(DR/EC) 60 mg PO BEDTIME RF: 0 nystatin 100,000 unit/gram Cream 1 applic TOPICAL BID PRN (Reason: yeast) RF: 0 oxycodone [OxyContin] 20 mg Tablet,Oral Only,Ext.Rel.12 Hr 20 mg PO Q8H Qty: 20 RF: 0 clonazepam 0.5 mg tablet 0.75 mg PO Q6H PRN (Reason: Anxiety) Qty: 20 RF: 0 Health Shake 1 ea PO QPM RF: 0 Alcohol Liquor 1 ea PO DAILY PRN (Reason: life enjoyment) RF: 0 dextromethorphan polistirex [Delsym 12 hour] 30 mg/5 mL Suspension,Extended Rel 12 Hr 10 ml PO Q12H PRN (Reason: Cough) RF: 0 ibuprofen 400 mg Tablet 400 mg PO Q4H PRN (Reason: pain) RF: 0 bisacodyl 5 mg Tablet,Delayed Release (Dr/Ec) 5 mg PO PRN PRN (Reason: no BM x 2 days) RF: 0 oxycodone 5 mg tablet 5 mg PO Q4H PRN (Reason: pain) RF: 0 doxycycline hyclate 100 mg capsule 100 mg PO [id number] RF: 0 cefdinir 300 mg capsule 300 mg PO BIDX4D RF: 0 insulin aspart U-100 [Novolog Flexpen U-100 Insulin] 100 unit/mL insulin pen 100 unit SUBCUT QID RF: 0 baclofen 10 mg tablet 10 mg PO TID RF: 0 artifi.tears(hypromellose)(PF) 0.3 % drops 2 drp EYE-BOTH BID RF: 0 Referrals: Eli Canas ARNP [Primary Care Provider] -
--- NOTE | 2020-09-28 01:01 | DI.CT.S_ITS ---
PROCEDURE: CT HEAD/BRAIN WO CON INDICATIONS: headache, history of cva TECHNIQUE: Noncontrast 4.5 mm thick angled axial sections acquired from the foramen magnum to the vertex, with coronal and sagittal reformats. For radiation dose reduction, the following was used: automated exposure control, adjustment of mA and/or kV according to patient size. COMPARISON: None. FINDINGS: Image quality: Excellent. CSF spaces: Basal cisterns are patent. No extra-axial fluid collections. The ventricles are symmetric in size and shape. Brain: No intracranial bleeds or masses. There is cerebral volume loss for age, with resultant ventricular and sulcal prominence. There are periventricular and deep white matter chronic small vessel ischemic changes. Likely remote lacunar infarcts can be seen involving the basal ganglia and the thalami. There is intracranial internal carotid artery atherosclerosis. Skull and face: Calvarium and visualized facial bones appear intact, without suspicious lesions. Sinuses: Visualized sinuses and mastoids are clear. IMPRESSION: No rory, acute intracranial abnormality can be seen. Note is made of age-appropriate brain parenchymal volume loss and chronic small vessel ischemic changes. Remote lacunar infarcts can be seen. Note: No significant discrepancy from the preliminary report. Dictated by: Bryan Her M.D. on 09/28/2020 at 10:00 Approved by: Bryan Her M.D. on 09/28/2020 at 10:02
[2020-09-28 01:17] LABS: Add Manual Diff / Slide Review NO; Basophils Absolute Auto 100 /uL (0-100); Basophils Percent Auto 0.9 % (0-2); Eosinophils Absolute Auto 800 /uL (0-450); Hematocrit 40.3 % (41-53); Hemoglobin 13.4 g/dL (13.5-17.5); Lymphocytes Absolute Auto 2300 /uL (1100-4500); Lymphocytes Percent Auto 26.6 % (25-40); Mean Corpuscular HGB Conc 33.2 % (30-36); Mean Corpuscular Hemoglobin 29.6 PG (26-34); Mean Corpuscular Volume 89.2 fL (80-100); Monocytes Absolute Auto 700 /uL (0-900); Neutrophils Absolute Auto 4900 /uL (1500-7000); Neutrophils Percent Auto 55.5 % (50-75); Platelet Count 331 X10^3/uL (150-400); Red Blood Cell Count 4.51 X10^6/uL (4.5-5.9); Red Cell Distribution Width 14.3 % (11.6-14.8); White Blood Cell Count 8.8 X10^3/uL (4.5-11.0)
[2020-09-28 01:26] LABS: Alanine Aminotransferase 38 IU/L (<50); Albumin 4.3 g/dL (3.5-5.0); Albumin Globulin Ratio 1.4 (1.0-2.8); Alkaline Phosphatase 127 U/L (38-126); Aspartate Aminotransferase 42 IU/L (17-59); BUN Creatinine Ratio 24.5 (6-22); Bilirubin Total 0.3 mg/dL (0.2-1.3); Blood Urea Nitrogen 23 mg/dL (9-20); Calcium 9.2 mg/dL (8.4-10.2); Carbon Dioxide 28 mmol/L (22-32); Chloride 102 mmol/L (98-107); Creatine Kinase 77 U/L (55-170); Estimated Glomerular Filt Rate > 60.0 mL/min (>60); Globulin 3.1 g/dL (1.7-4.1); Glucose 79 mg/dL (80-110); Sodium 140 mmol/L (137-145); Total Protein 7.4 g/dL (6.3-8.2)
[2020-09-28 01:27] LABS: HEMOLYSIS 71 (0-50)
[2020-09-28 01:28] LABS: Potassium 4.5 mmol/L (3.4-5.1)
[2020-09-28 01:30] LABS: Prothrombin Time 11.7 SECONDS (10.1-12.7)
[2020-09-28 01:33] LABS: PTT Partial Thromboplastin Tim 37 SECONDS (26.4-36.2)
[2020-09-28 01:38] LABS: Troponin I < 0.012 ng/mL (0.01-0.034)
[2020-09-28] MEDS: ACETAMINOPHEN 325 MG TABLET 975 MG PO (01:39)
[2020-09-28] MEDS: MORPHINE 4 MG/ML INJ IV (02:42)
== END 2020-09-28 03:16 | disposition home or self-care (01) ==
PROVIDERS: Emergency Provider Emergency Medicine; Family Provider Nurse Practitioner Family; PCP Registered Nurse
DX: M54.2 Cervicalgia (principal); I10 Essential (primary) hypertension; R51.9 Headache, unspecified; R07.9 Chest pain, unspecified
CPT/HCPCS: 36415; 70450; 80053; 82550; 84484; 85025; 85610; 85730; 93005; 96374; 99284; 99285; J2270

== ENCOUNTER → 2020-10-02 10:51 | Outpatient (CLI) | payer MEDICARE, MEDICAID, SELFPAY ==
[2019-03-02 18:01] VITALS: BMI 27.4
== END ==
PROVIDERS: Family Provider Nurse Practitioner Family; PCP Registered Nurse; Referring Provider Family Medicine; Visit Provider Family Medicine
DX: E10.622 Type 1 diabetes mellitus with other skin ulcer (principal); L97.812 Non-pressure chronic ulcer of other part of right lower leg with fat layer exposed; T87.89 Other complications of amputation stump; E10.51 Type 1 diabetes mellitus with diabetic peripheral angiopathy without gangrene; F17.200 Nicotine dependence, unspecified, uncomplicated; Z89.511 Acquired absence of right leg below knee; Z99.3 Dependence on wheelchair
CPT/HCPCS: 11042; 99213; 99214

== ENCOUNTER → 2020-10-08 09:33 | Outpatient (CLI) | payer MEDICARE, MEDICAID, SELFPAY ==
[2019-03-02 18:01] VITALS: BMI 27.4
== END ==
PROVIDERS: Family Provider Nurse Practitioner Family; PCP Registered Nurse; Referring Provider Registered Nurse; Visit Provider Family Medicine
DX: E10.622 Type 1 diabetes mellitus with other skin ulcer (principal); L97.812 Non-pressure chronic ulcer of other part of right lower leg with fat layer exposed; Z89.511 Acquired absence of right leg below knee; E10.51 Type 1 diabetes mellitus with diabetic peripheral angiopathy without gangrene
CPT/HCPCS: 11042

== ENCOUNTER 2020-10-12 02:08 | Emergency (ER) | payer MEDICARE, MEDICAID, SELFPAY ==
[2019-03-02 18:01] VITALS: BMI 27.4
[2020-10-12 02:10] VITALS: BP 119/85; PULSE 91; RESP 20; TEMP 36.8; O2SAT 96; BMI 25.8
--- NOTE | 2020-10-12 02:18 | DI.RAD.S_ITS ---
PROCEDURE: XR CHEST 1V INDICATIONS: Chest pain TECHNIQUE: One view of the chest was acquired. COMPARISON: [facility], CR, XR CHEST 1V, 03/02/2019, 11:05. [facility], CR, XR CHEST 2V, 11/08/2019, 9:24. [facility], CR, XR CHEST 1V, 09/08/2020, 23:36. FINDINGS: Surgical changes and devices: None. Lungs and pleura: Lungs are clear. No pleural effusions or pneumothorax. Mediastinum: Mediastinal contours appear normal. Heart size is normal. Bones and chest wall: No suspicious bony lesions. Age-appropriate bony degenerative changes are seen. There is a chronic right humeral neck fracture, versus postoperative change. Overlying soft tissues appear unremarkable. IMPRESSION: No acute cardiopulmonary process is seen. Chronic right humeral neck fracture versus postoperative change. Note: No significant discrepancy from the preliminary report. Dictated by: Bryan Her M.D. on 10/12/2020 at 7:55 Approved by: Bryan Her M.D. on 10/12/2020 at 7:56
[2020-10-12 02:31] VITALS: BP 157/67; PULSE 90; RESP 15; O2SAT 97
[2020-10-12 02:35] LABS: Add Manual Diff / Slide Review NO; Basophils Absolute Auto 100 /uL (0-100); Basophils Percent Auto 0.7 % (0-2); Eosinophils Absolute Auto 600 /uL (0-450); Eosinophils Percent Auto 6.6 % (2-4); Hematocrit 38.3 % (41-53); Hemoglobin 12.6 g/dL (13.5-17.5); Lymphocytes Absolute Auto 1800 /uL (1100-4500); Lymphocytes Percent Auto 21.3 % (25-40); Mean Corpuscular HGB Conc 32.9 % (30-36); Mean Corpuscular Hemoglobin 29.2 PG (26-34); Mean Corpuscular Volume 88.8 fL (80-100); Monocytes Absolute Auto 800 /uL (0-900); Monocytes Percent Auto 9.1 % (3-14); Neutrophils Absolute Auto 5300 /uL (1500-7000); Neutrophils Percent Auto 62.3 % (50-75); Platelet Count 262 X10^3/uL (150-400); Red Blood Cell Count 4.32 X10^6/uL (4.5-5.9); Red Cell Distribution Width 14.4 % (11.6-14.8); White Blood Cell Count 8.6 X10^3/uL (4.5-11.0)
--- NOTE | 2020-10-12 02:37 | ED_ITS ---
HPI - Chest Pain General Chief Complaint: Chest Pain Stated Complaint: chest tight Time Seen by Provider: 10/12/20 02:17 Source: patient and EMS Mode of arrival: EMS Limitations: no limitations History of Present Illness HPI narrative: A 65-year-old male has had multiple strokes in the past has a history of high blood pressure and high cholesterol who is brought in by EMS for evaluation of left-sided chest pain. Patient states that he is at his normal state health this evening in the facility where he lives when he started to have reflux issues. He has had this in the past. He took some Maalox for it. He s tates he when out and had a cigarette and when he came back to his room he laid down. He then started having an increase in his chronic neck discomfort that was radiating down to his left shoulder. This is also not new for him. He states they have been decreasing his pain medication at the facility in this is caused his neck discomfort and ?nerve pain ?to be worsening recently. He states that is the pain radiated down his left arm he was getting some chest tightness. His symptoms have now all resolved. Because the symptoms were not improving while he was lying in bed he was brought into the emergency department for evaluation. Related Data Home Medications Medication Instructions Recorded Confirmed Maalox Maximum Strength 30 ml PO Q4H PRN #0 06/29/17 03/07/19 acetaminophen 650 mg PO Q4HP PRN #0 06/29/17 03/07/19 atorvastatin 80 mg PO BEDTIME #0 06/29/17 03/07/19 bisacodyl 10 mg MA PRN PRN #0 06/29/17 03/07/19 bisacodyl [Fleet Laxative 10 mg PO PRN PRN #0 06/29/17 03/07/19 (bisacodyl)] clopidogrel 75 mg PO DAILY #0 06/29/17 03/07/19 levothyroxine 50 mcg PO QPM #0 06/29/17 03/07/19 metoprolol succinate [Toprol XL] 12.5 mg PO DAILY #0 06/29/17 03/07/19 omeprazole 20 mg PO DAILY #0 06/29/17 03/07/19 sennosides [senna] 17.2 mg PO BEDTIME #0 06/29/17 03/07/19 artifi.tears(hypromellose)(PF) 0.3 2 drp EYE-BOTH BID ml 11/25/17 03/07/19 % eye drops baclofen 10 mg tablet 10 mg PO TID 11/25/17 03/07/19 insulin aspart U-100 100 unit/mL 100 unit SUBCUT QID 11/25/17 03/07/19 (3 mL) subcutaneous pen docusate sodium 2 tab PO BID 03/05/18 03/07/19 magnesium hydroxide [Milk of 30 ml PO PRN PRN 03/05/18 03/07/19 Magnesia] ammonium lactate 1 applic TOPICAL BID PRN 08/13/18 03/07/19 calcium carbonate 1,200 mg PO QPM 08/13/18 03/07/19 cholecalciferol (vitamin D3) 1,000 unit PO QPM 08/13/18 03/07/19 fluticasone propionate 1 spray INTRANASAL BID 08/13/18 03/07/19 guaifenesin [Mucinex] 600 mg PO Q12H 08/13/18 03/07/19 hydroxyzine pamoate 25 - 50 mg PO Q6H PRN 08/13/18 03/07/19 insulin glargine 8 unit SUBCUT BID 08/13/18 03/07/19 mirtazapine 22.5 mg PO BEDTIME 08/13/18 03/07/19 ondansetron 4 mg PO Q4H PRN 08/13/18 03/07/19 vitamin B complex [B 1 tab PO QPM 08/13/18 03/07/19 Complex-Vitamin B12] cetirizine 10 mg PO DAILY PRN 01/25/19 03/07/19 sodium chloride [Saline Mist] 1 spray INTRANASAL Q6H PRN 01/25/19 03/07/19 aspirin 325 mg PO DAILY 02/20/19 03/07/19 furosemide 40 mg PO DAILY 02/20/19 03/07/19 Glucagon Emergency Kit (human) 1 mg IM PRN PRN MDD ` 03/02/19 03/07/19 duloxetine 60 mg PO BEDTIME 03/02/19 03/07/19 nystatin 1 applic TOPICAL BID PRN 03/02/19 03/07/19 Alcohol Liquor 1 ea PO DAILY PRN 03/07/19 03/07/19 Health Shake 1 ea PO QPM 03/07/19 03/07/19 bisacodyl 5 mg PO PRN PRN 03/07/19 03/07/19 cefdinir 300 mg PO BIDX4D 03/07/19 03/07/19 dextromethorphan polistirex 10 ml PO Q12H PRN 03/07/19 03/07/19 [Delsym 12 hour] doxycycline hyclate 100 mg PO BIDX4D 03/07/19 03/07/19 ibuprofen 400 mg PO Q4H PRN 03/07/19 03/07/19 oxycodone 5 mg PO Q4H PRN 03/07/19 03/07/19 Previous Rx's Medication Instructions Recorded clonazepam 0.75 mg PO Q6H PRN #20 tab 03/05/19 oxycodone [OxyContin] 20 mg PO Q8H #20 tab 03/05/19 Allergies Allergy/AdvReac Type Severity Reaction Status Date / Time amitriptyline Allergy Verified 09/28/20 01:00 pollen extracts Allergy Verified 09/28/20 01:00 codeine [CODEINE] AdvReac Unknown nausea Verified 09/28/20 01:00 Review of Systems Constitutional Constitutional: Reports system reviewed and no additional complaints, except as documented ENT Ears, Nose, Mouth, and Throat: Reports neck pain Cardiovascular Cardiovascular: Reports chest pain and Denies dyspnea Respiratory Respiratory: Denies cough and Denies dyspnea Gastrointestinal Gastrointestinal: Denies abdominal pain, Denies nausea and Denies vomiting Genitourinary Genitourinary: Reports system reviewed and no additional complaints, except as documented Musculoskeletal Musculoskeletal: Reports neck pain Integumentary/Breasts Skin/Breast: Reports system reviewed and no additional complaints, except as documented Neurologic Neurologic: Reports system reviewed and no additional complaints, except as documented Hematologic/Lymphatic Hematologic/Lymphatic: Reports system reviewed and no additional complaints, except as documented Allergic/Immunologic Allergic/Immunologic: Reports system reviewed and no additional complaints, except as documented Patient History Medical History C3 spinal cord injury C4 spinal cord injury CVA (cerebral vascular accident) Diabetes Gastroesophageal reflux disease Hyperlipidemia Hypertension Surgical History History of carotid endarterectomy History of coronary artery stent placement No pertinent past surgical history Family History Mother Cancer Father Lung disease Hyperlipidemia Brother Lupus Social History household members: caregiver Smoking Status: Current every day smoker alcohol intake: current substance use type: does not use additional social history: He currently resides in He currently resides in [facility]. Smoking Status: Current every day smoker tobacco type: cigarettes alcohol intake frequency: a few times a week Substance Use Type: does not use Exam Initial Vital Signs Initial Vital Signs: Vital Signs Temperature 98.2 F 10/12/20 02:10 Pulse Rate 91 H 10/12/20 02:10 Respiratory Rate 20 10/12/20 02:10 Blood Pressure 119/85 10/12/20 02:10 Pulse Oximetry 96 10/12/20 02:10 Const General: cooperative Limitations: mental status not altered HENMT Head: normal to inspection and normocephalic Resp Effort & Inspection: normal respiratory effort Auscultation: clear to auscultation bilaterally Cardio Rate: regular rate Rhythm: regular rhythm GI Inspection: non-distended Palpation: soft Skin Lesions: no lesions Rashes: no rashes Neuro General: patient alert and patient awake Cognition: normal cognition Speech: speech normal Extrem General: normal to inspection and capillary refill normal Psych Appearance: grossly normal and well kempt Course Orders Ordered: ED Orders 10/12/20 02:18 XR chest 1V Stat EKG-12 Lead Stat 10/12/20 02:30 Complete Blood Count AUTO DIFF Stat Comprehensive Metabolic Panel Stat Lipase Stat Troponin & CK Cardiac Panel Stat Vital Signs Vital signs: Vital Signs - 8 hr 10/12/20 02:10 10/12/20 02:31 10/12/20 03:01 Temperature 98.2 F Pulse Rate 91 H 90 86 Respiratory Rate 20 15 12 Blood Pressure 119/85 157/67 H 130/68 Pulse Oximetry 96 97 96 MDM - Chest Pain Lab Data Attestation: I reviewed the patient's lab results. Result diagrams: 10/12/20 02:30 10/12/20 02:30 Labs: Lab Results 10/12/20 10/12/20 Range/Units 02:30 02:30 WBC 8.6 (4.5-11.0) X10^3/uL RBC 4.32 L (4.5-5.9) X10^6/uL Hgb 12.6 L (13.5-17.5) g/dL Hct 38.3 L (41-53) % MCV 88.8 (80-100) fL MCH 29.2 (26-34) PG MCHC 32.9 (30-36) % RDW 14.4 (11.6-14.8) % Plt Count 262 (150-400) X10^3/uL Neut % (Auto) 62.3 (50-75) % Lymph % (Auto) 21.3 L (25-40) % [place] % (Auto) 9.1 (3-14) % Eos % (Auto) 6.6 H (2-4) % Baso % (Auto) 0.7 (0-2) % Neut # (Auto) 5300 (5279-6427) /uL Lymph # (Auto) 1800 (0802-6274) /uL [place] # (Auto) 800 (0-900) /uL Eos # (Auto) 600 H (0-450) /uL Baso # (Auto) 100 (0-100) /uL Sodium 138 (137-145) mmol/L Potassium 4.0 (3.4-5.1) mmol/L Chloride 102 (98-107) mmol/L Carbon Dioxide 29 (22-32) mmol/L BUN 21 H (9-20) mg/dL Creatinine 0.98 (0.66-1.25) mg/dL Estimated GFR > 60.0 (>60) mL/min BUN/Creatinine Ratio 21.4 (6-22) Glucose 121 H (80-110) mg/dL Calcium 9.1 (8.4-10.2) mg/dL Total Bilirubin 0.2 (0.2-1.3) mg/dL AST 40 (17-59) IU/L ALT 49 (<50) IU/L Alkaline Phosphatase 165 H (38-126) U/L Total Creatine Kinase 49 L (55-170) U/L CK-MB (CK-2) TNP CK-MB (CK-2) Rel Index TNP Troponin I < 0.012 (0.01-0.034) ng/mL Total Protein 7.1 (6.3-8.2) g/dL Albumin 4.1 (3.5-5.0) g/dL Globulin 3.0 (1.7-4.1) g/dL Albumin/Globulin Ratio 1.4 (1.0-2.8) Lipase 25 (23-300) U/L Imaging Data Chest x-ray: Radiologist's Impression: No acute cardiopulmonary disease ECG Data Attestation: I personally reviewed and interpreted this ECG as follows: Prior ECG tracings: not available for review Interpretation: Sinus rhythm Ventricular rate 90 Normal axis Normal QRS Normal QTC No ST T wave changes MDM Narrative Medical decision making narrative: Patient asymptomatic upon arrival. Blood pressure is unremarkable. EKG is unremarkable. Labs unremarkable. Given his presentation stating that his discomfort started from his neck and down into his left arm is his normal ?nerve pain ?I do a low suspicion for ACS. Hold on further workup for now and discharge patient back to his living facility. We did discuss his lab findings with him. He was given return precautions and follow-up instructions. He expressed understanding and agreement. Discharge Plan Departure Patient Disposition: Home Clinical Impression: Atypical chest pain Instructions: DI for Atypical Chest Pain Activity Restrictions/Additional Instructions: Recommend that you continue all of your medications as directed. Contact your primary provider for a follow-up. Return to the emergency department for any new or worsening symptoms Prescriptions: No Action atorvastatin 80 MG tablet 80 mg PO BEDTIME Qty: 0 RF: 0 clopidogrel 75 MG tablet 75 mg PO DAILY Qty: 0 RF: 0 levothyroxine 50 MCG tablet 50 mcg PO QPM Qty: 0 RF: 0 metoprolol succinate [Toprol XL] 25 MG tablet extended release 24 hr 12.5 mg PO DAILY Qty: 0 RF: 0 sennosides [senna] 8.6 MG tablet 17.2 mg PO BEDTIME Qty: 0 RF: 0 acetaminophen 325 MG tablet 650 mg PO Q4HP PRN (Reason: Fever Or Pain) Qty: 0 RF: 0 omeprazole 20 MG capsule,delayed release(DR/EC) 20 mg PO DAILY Qty: 0 RF: 0 bisacodyl 10 MG suppository 10 mg MA PRN PRN (Reason: Constipation) Qty: 0 RF: 0 bisacodyl [Fleet Laxative (bisacodyl)] 5 MG tablet,delayed release (DR/EC) 10 mg PO PRN PRN (Reason: no BM x 3 days ) Qty: 0 RF: 0 Maalox Maximum Strength 355 ML suspension 30 ml PO Q4H PRN (Reason: gi upset) Qty: 0 RF: 0 magnesium hydroxide [Milk of Magnesia] 400 mg/5 mL Suspension 30 ml PO PRN PRN (Reason: Constipation) RF: 0 docusate sodium 100 mg Capsule 2 tab PO BID RF: 0 aspirin 325 mg Tablet,Delayed Release (Dr/Ec) 325 mg PO DAILY RF: 0 furosemide 40 mg tablet 40 mg PO DAILY RF: 0 calcium carbonate 600 mg calcium (1,500 mg) Tablet 1,200 mg PO QPM RF: 0 vitamin B complex [B Complex-Vitamin B12] Tablet 1 tab PO QPM RF: 0 mirtazapine 15 mg Tablet 22.5 mg PO BEDTIME RF: 0 fluticasone propionate 50 mcg/actuation [place],Suspension 1 spray INTRANASAL BID RF: 0 cholecalciferol (vitamin D3) 1,000 unit Capsule 1,000 unit PO QPM RF: 0 hydroxyzine pamoate 25 mg Capsule 25 - 50 mg PO Q6H PRN (Reason: pain/spasms) RF: 0 insulin glargine 100 unit/mL (3 mL) Insulin Pen 8 unit SUBCUT BID RF: 0 ondansetron 4 mg Tablet,Disintegrating 4 mg PO Q4H PRN (Reason: Nausea) RF: 0 ammonium lactate 12 % Lotion 1 applic TOPICAL BID PRN (Reason: Dry Skin) RF: 0 guaifenesin [Mucinex] 600 mg Tablet Extended Release 12hr 600 mg PO Q12H RF: 0 cetirizine 10 mg Tablet 10 mg PO DAILY PRN (Reason: allergies) RF: 0 sodium chloride [Saline Mist] 0.65 % Aerosol,[place] 1 spray INTRANASAL Q6H PRN (Reason: Congestion) RF: 0 Glucagon Emergency Kit (human) 1 mg Recon Soln 1 mg IM PRN MDD ` PRN (Reason: blood glucose <60) RF: 0 duloxetine 60 mg capsule,delayed release(DR/EC) 60 mg PO BEDTIME RF: 0 nystatin 100,000 unit/gram Cream 1 applic TOPICAL BID PRN (Reason: yeast) RF: 0 oxycodone [OxyContin] 20 mg Tablet,Oral Only,Ext.Rel.12 Hr 20 mg PO Q8H Qty: 20 RF: 0 clonazepam 0.5 mg tablet 0.75 mg PO Q6H PRN (Reason: Anxiety) Qty: 20 RF: 0 Health Shake 1 ea PO QPM RF: 0 Alcohol Liquor 1 ea PO DAILY PRN (Reason: life enjoyment) RF: 0 dextromethorphan polistirex [Delsym 12 hour] 30 mg/5 mL Suspension,Extended Rel 12 Hr 10 ml PO Q12H PRN (Reason: Cough) RF: 0 ibuprofen 400 mg Tablet 400 mg PO Q4H PRN (Reason: pain) RF: 0 bisacodyl 5 mg Tablet,Delayed Release (Dr/Ec) 5 mg PO PRN PRN (Reason: no BM x 2 days) RF: 0 oxycodone 5 mg tablet 5 mg PO Q4H PRN (Reason: pain) RF: 0 doxycycline hyclate 100 mg capsule 100 mg PO BIDX4D RF: 0 cefdinir 300 mg capsule 300 mg PO BIDX4D RF: 0 insulin aspart U-100 [Novolog Flexpen U-100 Insulin] 100 unit/mL insulin pen 100 unit SUBCUT QID RF: 0 baclofen 10 mg tablet 10 mg PO TID RF: 0 artifi.tears(hypromellose)(PF) 0.3 % drops 2 drp EYE-BOTH BID RF: 0 Referrals: Eli Canas ARNP [Primary Care Provider] -
[2020-10-12 02:45] LABS: Alanine Aminotransferase 49 IU/L (<50); Albumin 4.1 g/dL (3.5-5.0); Albumin Globulin Ratio 1.4 (1.0-2.8); Alkaline Phosphatase 165 U/L (38-126); Aspartate Aminotransferase 40 IU/L (17-59); BUN Creatinine Ratio 21.4 (6-22); Bilirubin Total 0.2 mg/dL (0.2-1.3); Blood Urea Nitrogen 21 mg/dL (9-20); Calcium 9.1 mg/dL (8.4-10.2); Carbon Dioxide 29 mmol/L (22-32); Chloride 102 mmol/L (98-107); Creatine Kinase 49 U/L (55-170); Estimated Glomerular Filt Rate > 60.0 mL/min (>60); Glucose 121 mg/dL (80-110); HEMOLYSIS < 15 (0-50); Lipase 25 U/L (23-300); Sodium 138 mmol/L (137-145); Total Protein 7.1 g/dL (6.3-8.2)
[2020-10-12 02:57] LABS: Troponin I < 0.012 ng/mL (0.01-0.034)
[2020-10-12 03:01] VITALS: BP 130/68; PULSE 86; RESP 12; O2SAT 96
[2020-10-12 03:30] VITALS: BP 106/60; PULSE 85; RESP 14; O2SAT 94
== END 2020-10-12 03:58 | disposition home or self-care (01) ==
PROVIDERS: Emergency Provider Emergency Medicine; Family Provider Nurse Practitioner Family; PCP Registered Nurse
DX: R07.89 Other chest pain (principal); M54.2 Cervicalgia
CPT/HCPCS: 36415; 71045; 80053; 82550; 83690; 84484; 85025; 93005; 99284

== ENCOUNTER → 2020-10-15 09:50 | Outpatient (CLI) | payer MEDICARE, MEDICAID, SELFPAY ==
[2019-03-02 18:01] VITALS: BMI 27.4
== END ==
PROVIDERS: Family Provider Nurse Practitioner Family; PCP Registered Nurse; Referring Provider Registered Nurse; Visit Provider Family Medicine
DX: E10.622 Type 1 diabetes mellitus with other skin ulcer (principal); L97.812 Non-pressure chronic ulcer of other part of right lower leg with fat layer exposed; Z89.511 Acquired absence of right leg below knee; I73.9 Peripheral vascular disease, unspecified; T87.89 Other complications of amputation stump; E10.51 Type 1 diabetes mellitus with diabetic peripheral angiopathy without gangrene; F17.200 Nicotine dependence, unspecified, uncomplicated; M79.604 Pain in right leg
CPT/HCPCS: 11042

== ENCOUNTER → 2020-10-21 19:26 | Outpatient (ROUT) | payer MEDICARE, MEDICAID, SELFPAY ==
[2019-03-02 18:01] VITALS: BMI 27.4
[2020-10-21 19:29] LABS: Bacteria Urine None Seen; RBC Urine None Seen (0-5/HPF); WBC Urine None Seen (0-5/HPF)
[2020-10-21 19:45] LABS: Appearance Urine UA CLEAR; Bilirubin Urine UA NEGATIVE (NEGATIVE); Color Urine UA YELLOW; Glucose Urine UA 1+ g/dL (Negative); Ketones Urine UA NEGATIVE (NEGATIVE); Leukocyte Esterase Urine UA NEGATIVE (NEGATIVE); Nitrite Urine UA NEGATIVE (Negative); Occult Blood Urine UA NEGATIVE (Negative); Protein Urine UA NEGATIVE (Negative); Specific Gravity Urine UA 1.015 (1.000-1.035); Urobilinogen Urine UA 0.2 E.U./dL (0.2)
[2020-10-21 20:15] LABS: Amorphous Sediment Urine 2+; Culture Indicated Urine Cult Not Indicated; Hyaline Casts Urine 1-5/LPF
== END ==
PROVIDERS: Family Provider Nurse Practitioner Family; PCP Registered Nurse; Visit Provider Nurse Practitioner Gerontology
DX: R30.0 Dysuria (principal)
CPT/HCPCS: 81001

== ENCOUNTER 2020-10-22 00:27 | Emergency (ER) | payer MEDICARE, MEDICAID, SELFPAY ==
[2019-03-02 18:01] VITALS: BMI 27.4
[2020-10-22 00:31] VITALS: BP 146/74; PULSE 88; RESP 16; TEMP 37.4; O2SAT 95; BMI 24.2
--- NOTE | 2020-10-22 00:37 | DI.CT.S_ITS ---
PROCEDURE: CT HEAD/BRAIN WO CON INDICATIONS: altered, shaking and twitching of leg, sent by PCP TECHNIQUE: Noncontrast 4.5 mm thick angled axial sections acquired from the foramen magnum to the vertex, with coronal and sagittal reformats. For radiation dose reduction, the following was used: automated exposure control, adjustment of mA and/or kV according to patient size. COMPARISON: None. FINDINGS: Image quality: Excellent. CSF spaces: Basal cisterns are patent. No extra-axial fluid collections. The ventricles are symmetric in size and shape. Brain: No intracranial bleeds or masses. There is cerebral volume loss for age, with resultant ventricular and sulcal prominence. There are periventricular and deep white matter chronic small vessel ischemic changes. Chronic left thalamic lacunar infarcts. There is intracranial internal carotid artery atherosclerosis. Skull and face: Calvarium and visualized facial bones appear intact, without suspicious lesions. Sinuses: Visualized sinuses and mastoids are clear. IMPRESSION: No acute intracranial disease process. Dictated by: Dasha Reed MD, PhD on 10/22/2020 at 7:15 Approved by: Dasha Reed MD, PhD on 10/22/2020 at 7:17
[2020-10-22 00:57] LABS: Add Manual Diff / Slide Review NO; Basophils Absolute Auto 100 /uL (0-100); Basophils Percent Auto 1.1 % (0-2); Eosinophils Absolute Auto 700 /uL (0-450); Eosinophils Percent Auto 7.2 % (2-4); Hematocrit 38.2 % (41-53); Hemoglobin 12.7 g/dL (13.5-17.5); Lymphocytes Absolute Auto 2200 /uL (1100-4500); Lymphocytes Percent Auto 23.8 % (25-40); Mean Corpuscular HGB Conc 33.3 % (30-36); Mean Corpuscular Hemoglobin 29.5 PG (26-34); Mean Corpuscular Volume 88.4 fL (80-100); Monocytes Absolute Auto 900 /uL (0-900); Monocytes Percent Auto 10.1 % (3-14); Neutrophils Absolute Auto 5300 /uL (1500-7000); Neutrophils Percent Auto 57.8 % (50-75); Platelet Count 401 X10^3/uL (150-400); Red Blood Cell Count 4.32 X10^6/uL (4.5-5.9); Red Cell Distribution Width 14.3 % (11.6-14.8); White Blood Cell Count 9.1 X10^3/uL (4.5-11.0)
[2020-10-22 01:04] LABS: Alanine Aminotransferase 42 IU/L (<50); Albumin Globulin Ratio 1.3 (1.0-2.8); Alkaline Phosphatase 135 U/L (38-126); Aspartate Aminotransferase 37 IU/L (17-59); BUN Creatinine Ratio 29.7 (6-22); Bilirubin Total 0.2 mg/dL (0.2-1.3); Blood Urea Nitrogen 33 mg/dL (9-20); Calcium 9.1 mg/dL (8.4-10.2); Carbon Dioxide 31 mmol/L (22-32); Chloride 103 mmol/L (98-107); Estimated Glomerular Filt Rate > 60.0 mL/min (>60); Globulin 3.1 g/dL (1.7-4.1); Glucose 137 mg/dL (80-110); HEMOLYSIS < 15 (0-50); Potassium 4.3 mmol/L (3.4-5.1); Sodium 140 mmol/L (137-145); Total Protein 7.1 g/dL (6.3-8.2)
--- NOTE | 2020-10-22 01:17 | ED_ITS ---
HPI - Extremity Problem General Chief complaint: Extremity Problem,Nontraumatic Stated complaint: Muscle spasms Time Seen by Provider: 10/22/20 00:37 Source: patient and EMS Mode of arrival: EMS Limitations: no limitations History of Present Illness HPI Narrative: 65-year-old male smoker with extensive medical history including diabetes, spinal cord injury, chronic pain presents at the request of his primary care provider for twitching of his left leg that has been present for probably a few days. He has had no alteration in mental status or other neurologic findings but there is some concern about the persistence of this twitching in whether not there may be an underlying electrolyte abnormality or other. Patient has had no recent trauma nor fever or chills. He has had no alterations in mentation until this evening when he was given some Vistaril which seemed to help his twitching but made him sleepy. Complaint: other Onset (ago): day(s) Location: left Radiation: none Related Data Home Medications Medication Instructions Recorded Confirmed Maalox Maximum Strength 30 ml PO Q4H PRN #0 06/29/17 03/07/19 acetaminophen 650 mg PO Q4HP PRN #0 06/29/17 03/07/19 atorvastatin 80 mg PO BEDTIME #0 06/29/17 03/07/19 bisacodyl 10 mg MN PRN PRN #0 06/29/17 03/07/19 bisacodyl [Fleet Laxative 10 mg PO PRN PRN #0 06/29/17 03/07/19 (bisacodyl)] clopidogrel 75 mg PO DAILY #0 06/29/17 03/07/19 levothyroxine 50 mcg PO QPM #0 06/29/17 03/07/19 metoprolol succinate [Toprol XL] 12.5 mg PO DAILY #0 06/29/17 03/07/19 omeprazole 20 mg PO DAILY #0 06/29/17 03/07/19 sennosides [senna] 17.2 mg PO BEDTIME #0 06/29/17 03/07/19 artifi.tears(hypromellose)(PF) 0.3 2 drp EYE-BOTH BID ml 11/25/17 03/07/19 % eye drops baclofen 10 mg tablet 10 mg PO TID 11/25/17 03/07/19 insulin aspart U-100 100 unit/mL 100 unit SUBCUT QID 11/25/17 03/07/19 (3 mL) subcutaneous pen docusate sodium 2 tab PO BID 03/05/18 03/07/19 magnesium hydroxide [Milk of 30 ml PO PRN PRN 03/05/18 03/07/19 Magnesia] ammonium lactate 1 applic TOPICAL BID PRN 08/13/18 03/07/19 calcium carbonate 1,200 mg PO QPM 08/13/18 03/07/19 cholecalciferol (vitamin D3) 1,000 unit PO QPM 08/13/18 03/07/19 fluticasone propionate 1 spray INTRANASAL BID 08/13/18 03/07/19 guaifenesin [Mucinex] 600 mg PO Q12H 08/13/18 03/07/19 hydroxyzine pamoate 25 - 50 mg PO Q6H PRN 08/13/18 03/07/19 insulin glargine 8 unit SUBCUT BID 08/13/18 03/07/19 mirtazapine 22.5 mg PO BEDTIME 08/13/18 03/07/19 ondansetron 4 mg PO Q4H PRN 08/13/18 03/07/19 vitamin B complex [B 1 tab PO QPM 08/13/18 03/07/19 Complex-Vitamin B12] cetirizine 10 mg PO DAILY PRN 01/25/19 03/07/19 sodium chloride [Saline Mist] 1 spray INTRANASAL Q6H PRN 01/25/19 03/07/19 aspirin 325 mg PO DAILY 02/20/19 03/07/19 furosemide 40 mg PO DAILY 02/20/19 03/07/19 Glucagon Emergency Kit (human) 1 mg IM PRN PRN MDD ` 03/02/19 03/07/19 duloxetine 60 mg PO BEDTIME 03/02/19 03/07/19 nystatin 1 applic TOPICAL BID PRN 03/02/19 03/07/19 Alcohol Liquor 1 ea PO DAILY PRN 03/07/19 03/07/19 Health Shake 1 ea PO QPM 03/07/19 03/07/19 bisacodyl 5 mg PO PRN PRN 03/07/19 03/07/19 cefdinir 300 mg PO BIDX4D 03/07/19 03/07/19 dextromethorphan polistirex 10 ml PO Q12H PRN 03/07/19 03/07/19 [Delsym 12 hour] doxycycline hyclate 100 mg PO BIDX4D 03/07/19 03/07/19 ibuprofen 400 mg PO Q4H PRN 03/07/19 03/07/19 oxycodone 5 mg PO Q4H PRN 03/07/19 03/07/19 Previous Rx's Medication Instructions Recorded clonazepam 0.75 mg PO Q6H PRN #20 tab 03/05/19 oxycodone [OxyContin] 20 mg PO Q8H #20 tab 03/05/19 Allergies Allergy/AdvReac Type Severity Reaction Status Date / Time amitriptyline Allergy Verified 09/28/20 01:00 pollen extracts Allergy Verified 09/28/20 01:00 codeine [CODEINE] AdvReac Unknown nausea Verified 09/28/20 01:00 Review of Systems Constitutional Constitutional: Denies chills, Denies fatigue, Denies fever(s), Denies frequent falls, Denies lethargy and Denies weakness Eyes Eyes: Denies change in vision, Denies eye discharge, Denies irritation and Denies loss of vision ENT Ears, Nose, Mouth, and Throat: Denies change in voice, Denies dizziness, Denies neck pain, Denies sore throat and Denies throat swelling Cardiovascular Cardiovascular: Denies chest pain, Denies irregular heart rhythm, Denies l ightheadedness, Denies palpitations, Denies dyspnea, Denies dyspnea on exertion and Denies orthopnea Respiratory Respiratory: Denies cough, Denies dyspnea, Denies dyspnea on exertion and Denies wheezing Gastrointestinal Gastrointestinal: Denies abdominal pain, Denies change in bowel habits, Denies diarrhea, Denies nausea and Denies vomiting Musculoskeletal Musculoskeletal: Denies neck pain and Denies numbness Comments: Leg twitching and some pain Integumentary/Breasts Skin/Breast: Denies pruritus, Denies erythema, Denies rash and Denies wounds Neurologic Neurologic: Denies behavioral changes, Denies confusion, Denies dizziness, Denies frequent falls, Denies loss of vision, Denies numbness and Denies weakness Psychiatric Psychiatric: Denies anxiety, Denies behavioral changes, Denies confusion, Denies depression, Denies homicidal ideation and Denies suicidal ideation Endocrine Endocrine: Denies fatigue, Denies flushing and Denies palpitations Hematologic/Lymphatic Hematologic/Lymphatic: Denies easy bruising Allergic/Immunologic Allergic/Immunologic: Denies urticaria, Denies throat swelling and Denies wheezing Patient History Medical History (Updated 10/13/20 @ 00:00 by ) C3 spinal cord injury C4 spinal cord injury CVA (cerebral vascular accident) Diabetes Gastroesophageal reflux disease Hyperlipidemia Hypertension Surgical History History of carotid endarterectomy History of coronary artery stent placement No pertinent past surgical history Family History Mother Cancer Father Lung disease Hyperlipidemia Brother Lupus Social History household members: caregiver Smoking Status: Current every day smoker alcohol intake: current substance use type: does not use additional social history: He currently resides in He currently resides in [facility]. Smoking Status: Current every day smoker tobacco type: cigarettes alcohol intake frequency: holidays/special occasions only Substance Use Type: does not use Exam Narrative Exam Narrative: GENERAL: [65] year old patient appears stated age. Chronically ill, sleepy but easily arousable HEAD: Atraumatic. Normocephalic. EYES: Pupils equal round and reactive. Extraocular motions intact. No scleral icterus. No injection or drainage. ENT: Nose without bleeding, purulent drainage. Throat without erythema, tonsill ar hypertrophy or exudate. Airway patent. NECK: Trachea midline. Non tender CARDIOVASCULAR: Regular rate and rhythm without murmurs, gallops, or rubs. RESPIRATORY: Clear to auscultation. Breath sounds equal bilaterally. No wheezes, rales, or rhonchi. GASTROINTESTINAL: Abdomen soft, non-tender, nondistended. EXTREMITIES: No edema or joint tenderness. No present twitching, numbness, tingling, swelling or erythema BACK: Nontender without deformity or crepitance. No flank tenderness. NEURO: AOx3. SKIN: No rash or erythema of visible areas Initial Vital Signs Initial Vital Signs: Vital Signs Temperature 99.3 F 10/22/20 00:31 Pulse Rate 88 10/22/20 00:31 Respiratory Rate 16 10/22/20 00:31 Blood Pressure 146/74 H 10/22/20 00:31 Pulse Oximetry 95 10/22/20 00:31 Course Orders Ordered: ED Orders 10/22/20 00:37 CT head/brain wo con Stat 10/22/20 00:47 Complete Blood Count AUTO DIFF Stat Comprehensive Metabolic Panel Stat Prolactin Stat Vital Signs Vital signs: Vital Signs - 8 hr 10/22/20 00:31 Temperature 99.3 F Pulse Rate 88 Respiratory Rate 16 Blood Pressure 146/74 H Pulse Oximetry 95 MDM - Extremity (Nontraumatic) Lab Data Result diagrams: 10/22/20 00:47 10/22/20 00:47 Labs: Lab Results 10/22/20 10/22/20 10/22/20 Range/Units 00:47 00:47 00:47 WBC 9.1 (4.5-11.0) X10^3/uL RBC 4.32 L (4.5-5.9) X10^6/uL Hgb 12.7 L (13.5-17.5) g/dL Hct 38.2 L (41-53) % MCV 88.4 (80-100) fL MCH 29.5 (26-34) PG MCHC 33.3 (30-36) % RDW 14.3 (11.6-14.8) % Plt Count 401 H (150-400) X10^3/uL Neut % (Auto) 57.8 (50-75) % Lymph % (Auto) 23.8 L (25-40) % [place] % (Auto) 10.1 (3-14) % Eos % (Auto) 7.2 H (2-4) % Baso % (Auto) 1.1 (0-2) % Neut # (Auto) 5300 (5178-6790) /uL Lymph # (Auto) 2200 (5403-5569) /uL [place] # (Auto) 900 (0-900) /uL Eos # (Auto) 700 H (0-450) /uL Baso # (Auto) 100 (0-100) /uL Sodium 140 (137-145) mmol/L Potassium 4.3 (3.4-5.1) mmol/L Chloride 103 (98-107) mmol/L Carbon Dioxide 31 (22-32) mmol/L BUN 33 H (9-20) mg/dL Creatinine 1.11 (0.66-1.25) mg/dL Estimated GFR > 60.0 (>60) mL/min BUN/Creatinine Ratio 29.7 H (6-22) Glucose 137 H (80-110) mg/dL Calcium 9.1 (8.4-10.2) mg/dL Total Bilirubin 0.2 (0.2-1.3) mg/dL AST 37 (17-59) IU/L ALT 42 (<50) IU/L Alkaline Phosphatase 135 H (38-126) U/L Total Protein 7.1 (6.3-8.2) g/dL Albumin 4.0 (3.5-5.0) g/dL Globulin 3.1 (1.7-4.1) g/dL Albumin/Globulin Ratio 1.3 (1.0-2.8) Prolactin 6.1 (3.7-17.9) ng/mL Imaging Data CT scan - head: Radiologist's Impression: No acute findings MDM Narrative Medical decision making narrative: Multiple etiologies for patient's symptoms considered including: [seizure vs. electrolyte disturbance vs. other] Patient with very reassuring exam, labs, and imaging Findings and discharge diagnosis discussed with patient/family followed by verbalization of understanding Return precautions discussed with patient/family whom verbalize understanding. Discharge Plan Departure Prescriptions: No Action atorvastatin 80 MG tablet 80 mg PO BEDTIME Qty: 0 RF: 0 clopidogrel 75 MG tablet 75 mg PO DAILY Qty: 0 RF: 0 levothyroxine 50 MCG tablet 50 mcg PO QPM Qty: 0 RF: 0 metoprolol succinate [Toprol XL] 25 MG tablet extended release 24 hr 12.5 mg PO DAILY Qty: 0 RF: 0 sennosides [senna] 8.6 MG tablet 17.2 mg PO BEDTIME Qty: 0 RF: 0 acetaminophen 325 MG tablet 650 mg PO Q4HP PRN (Reason: Fever Or Pain) Qty: 0 RF: 0 omeprazole 20 MG capsule,delayed release(DR/EC) 20 mg PO DAILY Qty: 0 RF: 0 bisacodyl 10 MG suppository 10 mg MN PRN PRN (Reason: Constipation) Qty: 0 RF: 0 bisacodyl [Fleet Laxative (bisacodyl)] 5 MG tablet,delayed release (DR/EC) 10 mg PO PRN PRN (Reason: no BM x 3 days ) Qty: 0 RF: 0 Maalox Maximum Strength 355 ML suspension 30 ml PO Q4H PRN (Reason: gi upset) Qty: 0 RF: 0 magnesium hydroxide [Milk of Magnesia] 400 mg/5 mL Suspension 30 ml PO PRN PRN (Reason: Constipation) RF: 0 docusate sodium 100 mg Capsule 2 tab PO BID RF: 0 aspirin 325 mg Tablet,Delayed Release (Dr/Ec) 325 mg PO DAILY RF: 0 furosemide 40 mg tablet 40 mg PO DAILY RF: 0 calcium carbonate 600 mg calcium (1,500 mg) Tablet 1,200 mg PO QPM RF: 0 vitamin B complex [B Complex-Vitamin B12] Tablet 1 tab PO QPM RF: 0 mirtazapine 15 mg Tablet 22.5 mg PO BEDTIME RF: 0 fluticasone propionate 50 mcg/actuation [place],Suspension 1 spray INTRANASAL BID RF: 0 cholecalciferol (vitamin D3) 1,000 unit Capsule 1,000 unit PO QPM RF: 0 hydroxyzine pamoate 25 mg Capsule 25 - 50 mg PO Q6H PRN (Reason: pain/spasms) RF: 0 insulin glargine 100 unit/mL (3 mL) Insulin Pen 8 unit SUBCUT BID RF: 0 ondansetron 4 mg Tablet,Disintegrating 4 mg PO Q4H PRN (Reason: Nausea) RF: 0 ammonium lactate 12 % Lotion 1 applic TOPICAL BID PRN (Reason: Dry Skin) RF: 0 guaifenesin [Mucinex] 600 mg Tablet Extended Release 12hr 600 mg PO Q12H RF: 0 cetirizine 10 mg Tablet 10 mg PO DAILY PRN (Reason: allergies) RF: 0 sodium chloride [Saline Mist] 0.65 % Aerosol,[place] 1 spray INTRANASAL Q6H PRN (Reason: Congestion) RF: 0 Glucagon Emergency Kit (human) 1 mg Recon Soln 1 mg IM PRN MDD ` PRN (Reason: blood glucose <60) RF: 0 duloxetine 60 mg capsule,delayed release(DR/EC) 60 mg PO BEDTIME RF: 0 nystatin 100,000 unit/gram Cream 1 applic TOPICAL BID PRN (Reason: yeast) RF: 0 oxycodone [OxyContin] 20 mg Tablet,Oral Only,Ext.Rel.12 Hr 20 mg PO Q8H Qty: 20 RF: 0 clonazepam 0.5 mg tablet 0.75 mg PO Q6H PRN (Reason: Anxiety) Qty: 20 RF: 0 Health Shake 1 ea PO QPM RF: 0 Alcohol Liquor 1 ea PO DAILY PRN (Reason: life enjoyment) RF: 0 dextromethorphan polistirex [Delsym 12 hour] 30 mg/5 mL Suspension,Extended Rel 12 Hr 10 ml PO Q12H PRN (Reason: Cough) RF: 0 ibuprofen 400 mg Tablet 400 mg PO Q4H PRN (Reason: pain) RF: 0 bisacodyl 5 mg Tablet,Delayed Release (Dr/Ec) 5 mg PO PRN PRN (Reason: no BM x 2 days) RF: 0 oxycodone 5 mg tablet 5 mg PO Q4H PRN (Reason: pain) RF: 0 doxycycline hyclate 100 mg capsule 100 mg PO [id number] RF: 0 cefdinir 300 mg capsule 300 mg PO [id number] RF: 0 insulin aspart U-100 [Novolog Flexpen U-100 Insulin] 100 unit/mL insulin pen 100 unit SUBCUT QID RF: 0 baclofen 10 mg tablet 10 mg PO TID RF: 0 artifi.tears(hypromellose)(PF) 0.3 % drops 2 drp EYE-BOTH BID RF: 0
[2020-10-22 01:37] LABS: Prolactin 6.1 ng/mL (3.7-17.9)
--- NOTE | 2020-10-22 02:43 | PC.NURSE ---
Patient states he has had painful, intermittent muscle spasms in his left leg for the past week.
[2020-10-22 02:44] VITALS: BP 118/68; PULSE 89; RESP 16; TEMP 36.9; O2SAT 98
== END 2020-10-22 02:52 | disposition home or self-care (01) ==
PROVIDERS: Emergency Provider Emergency Medicine; Family Provider Nurse Practitioner Family; PCP Registered Nurse
DX: R25.3 Fasciculation (principal); R33.9 Retention of urine, unspecified; E11.628 Type 2 diabetes mellitus with other skin complications; T87.89 Other complications of amputation stump; L97.812 Non-pressure chronic ulcer of other part of right lower leg with fat layer exposed
CPT/HCPCS: 36415; 51702; 70450; 76700; 80053; 81003; 84146; 85025; 99213; 99283; 99284

== ENCOUNTER → 2020-10-22 13:28 | Outpatient (CLI) | payer MEDICARE, MEDICAID, SELFPAY ==
[2019-03-02 18:01] VITALS: BMI 27.4
== END ==
PROVIDERS: Family Provider Nurse Practitioner Family; PCP Registered Nurse; Referring Provider Nurse Practitioner Family; Visit Provider Family Medicine
DX: E11.628 Type 2 diabetes mellitus with other skin complications (principal); T87.89 Other complications of amputation stump; L97.812 Non-pressure chronic ulcer of other part of right lower leg with fat layer exposed
CPT/HCPCS: 99213

== ENCOUNTER → 2020-10-22 14:49 | Outpatient (CLI) | payer MEDICARE, MEDICAID, SELFPAY ==
[2019-03-02 18:01] VITALS: BMI 27.4
--- NOTE | 2020-10-22 | DI.US.S_ITS ---
PROCEDURE: US ABDOMEN COMPLETE INDICATIONS: Abdominal distension (gaseous) TECHNIQUE: Real-time scanning was performed of the abdominal and retroperitoneal organs, with image documentation. COMPARISON: None. FINDINGS: Liver: Liver is normal in size and homogeneous in echotexture. Gallbladder: No gallstones. No gallbladder wall thickening, pericholecystic fluid or sonographic Moore's sign. Biliary ducts: Intrahepatic bile ducts are non-dilated. Extrahepatic bile duct caliber measures 3 mm. Normal is 6-7 mm or less in diameter, or 10 mm or less post-cholecystectomy. Pancreas: Visualized portions of the pancreas are sonographically normal. Spleen: Spleen is normal in size and homogeneous in echotexture. Kidneys: Kidneys are normal in size and echotexture. Right kidney measures 12.2 cm long; left kidney measures 11.5 cm long. There is mild left renal pelviectasis. No renal stones. No solid masses. Aorta: Obscured. Iliacs: Obscured. IVC: Not visualized. Miscellaneous: Urinary bladder is markedly distended. The patient was unable to void. No free abdominal fluid. IMPRESSION: 1. Markedly distended urinary bladder. The finding is probably caused by bladder outlet obstruction. 2. Mild left hydronephrosis. No renal stones. The patient went to the ER after the exam. Dictated by: Clif Bermeo M.D. on 10/22/2020 at 16:38 Approved by: Clif Bermeo M.D. on 10/22/2020 at 16:42
== END ==
PROVIDERS: Family Provider Nurse Practitioner Family; PCP Registered Nurse; Referring Provider Internal Medicine; Visit Provider Internal Medicine
DX: R14.0 Abdominal distension (gaseous) (principal); R30.9 Painful micturition, unspecified; R10.9 Unspecified abdominal pain; N32.89 Other specified disorders of bladder; N13.30 Unspecified hydronephrosis
CPT/HCPCS: 76700

== ENCOUNTER 2020-10-22 16:20 | Emergency (ER) | payer MEDICARE, MEDICAID, SELFPAY ==
[2019-03-02 18:01] VITALS: BMI 27.4
[2020-10-22 16:45] VITALS: BP 132/67; PULSE 87; RESP 20; TEMP 37; O2SAT 97
--- NOTE | 2020-10-22 19:26 | ED_ITS ---
HPI - Male Genitourinary General Chief complaint: Urogenital-Male Stated complaint: NEEDS CATHETER, BLADDER IS 1500CC. PER US TODAY Time Seen by Provider: 10/22/20 19:18 Source: patient Mode of arrival: Wheelchair History of Present Illness HPI Narrative: 65-year-old male presents at the request of ultrasound after they noted greater than 1 L of urine in his bladder. The patient complains only of all full belly but denies any pain, fever or chills. He denies any numbness, tingling or weakness. He was seen here recently with a chief complaint of leg twitching which seems to be improved. He is otherwise well and free of complaint MD Complaint: other Onset (ago): hour(s) Duration: constant Severity: mild Relieving factors: none Exacerbating factors: none Related Data Home Medications Medication Instructions Recorded Confirmed Maalox Maximum Strength 30 ml PO Q4H PRN #0 06/29/17 03/07/19 acetaminophen 650 mg PO Q4HP PRN #0 06/29/17 03/07/19 atorvastatin 80 mg PO BEDTIME #0 06/29/17 03/07/19 bisacodyl 10 mg [place] PRN PRN #0 06/29/17 03/07/19 bisacodyl [Fleet Laxative 10 mg PO PRN PRN #0 06/29/17 03/07/19 (bisacodyl)] clopidogrel 75 mg PO DAILY #0 06/29/17 03/07/19 levothyroxine 50 mcg PO QPM #0 06/29/17 03/07/19 metoprolol succinate [Toprol XL] 12.5 mg PO DAILY #0 06/29/17 03/07/19 omeprazole 20 mg PO DAILY #0 06/29/17 03/07/19 sennosides [senna] 17.2 mg PO BEDTIME #0 06/29/17 03/07/19 artifi.tears(hypromellose)(PF) 0.3 2 drp EYE-BOTH BID ml 11/25/17 03/07/19 % eye drops baclofen 10 mg tablet 10 mg PO TID 11/25/17 03/07/19 insulin aspart U-100 100 unit/mL 100 unit SUBCUT QID 11/25/17 03/07/19 (3 mL) subcutaneous pen docusate sodium 2 tab PO BID 03/05/18 03/07/19 magnesium hydroxide [Milk of 30 ml PO PRN PRN 03/05/18 03/07/19 Magnesia] ammonium lactate 1 applic TOPICAL BID PRN 08/13/18 03/07/19 calcium carbonate 1,200 mg PO QPM 08/13/18 03/07/19 cholecalciferol (vitamin D3) 1,000 unit PO QPM 08/13/18 03/07/19 fluticasone propionate 1 spray INTRANASAL BID 08/13/18 03/07/19 guaifenesin [Mucinex] 600 mg PO Q12H 08/13/18 03/07/19 hydroxyzine pamoate 25 - 50 mg PO Q6H PRN 08/13/18 03/07/19 insulin glargine 8 unit SUBCUT BID 08/13/18 03/07/19 mirtazapine 22.5 mg PO BEDTIME 08/13/18 03/07/19 ondansetron 4 mg PO Q4H PRN 08/13/18 03/07/19 vitamin B complex [B 1 tab PO QPM 08/13/18 03/07/19 Complex-Vitamin B12] cetirizine 10 mg PO DAILY PRN 01/25/19 03/07/19 sodium chloride [Saline Mist] 1 spray INTRANASAL Q6H PRN 01/25/19 03/07/19 aspirin 325 mg PO DAILY 02/20/19 03/07/19 furosemide 40 mg PO DAILY 02/20/19 03/07/19 Glucagon Emergency Kit (human) 1 mg IM PRN PRN MDD ` 03/02/19 03/07/19 duloxetine 60 mg PO BEDTIME 03/02/19 03/07/19 nystatin 1 applic TOPICAL BID PRN 03/02/19 03/07/19 Alcohol Liquor 1 ea PO DAILY PRN 03/07/19 03/07/19 Health Shake 1 ea PO QPM 03/07/19 03/07/19 bisacodyl 5 mg PO PRN PRN 03/07/19 03/07/19 cefdinir 300 mg PO BIDX4D 03/07/19 03/07/19 dextromethorphan polistirex 10 ml PO Q12H PRN 03/07/19 03/07/19 [Delsym 12 hour] doxycycline hyclate 100 mg PO BIDX4D 03/07/19 03/07/19 ibuprofen 400 mg PO Q4H PRN 03/07/19 03/07/19 oxycodone 5 mg PO Q4H PRN 03/07/19 03/07/19 Previous Rx's Medication Instructions Recorded clonazepam 0.75 mg PO Q6H PRN #20 tab 03/05/19 oxycodone [OxyContin] 20 mg PO Q8H #20 tab 03/05/19 Allergies Allergy/AdvReac Type Severity Reaction Status Date / Time amitriptyline Allergy Verified 09/28/20 01:00 pollen extracts Allergy Verified 09/28/20 01:00 codeine [CODEINE] AdvReac Unknown nausea Verified 09/28/20 01:00 Review of Systems Constitutional Constitutional: Denies chills, Denies fatigue, Denies fever(s), Denies frequent falls, Denies lethargy and Denies weakness Eyes Eyes: Denies change in vision, Denies eye discharge, Denies irritation and Denies loss of vision ENT Ears, Nose, Mouth, and Throat: Denies change in voice, Denies dizziness, Denies neck pain, Denies sore throat and Denies throat swelling Cardiovascular Cardiovascular: Denies chest pain, Denies irregular heart rhythm, Denies l ightheadedness, Denies palpitations, Denies dyspnea, Denies dyspnea on exertion and Denies orthopnea Respiratory Respiratory: Denies cough, Denies dyspnea, Denies dyspnea on exertion and Denies wheezing Gastrointestinal Gastrointestinal: Denies abdominal pain, Denies change in bowel habits, Denies diarrhea, Denies nausea and Denies vomiting Genitourinary Genitourinary: Reports oliguria and Reports difficulty urinating Musculoskeletal Musculoskeletal: Denies neck pain and Denies numbness Integumentary/Breasts Skin/Breast: Denies pruritus, Denies erythema, Denies rash and Denies wounds Neurologic Neurologic: Denies behavioral changes, Denies confusion, Denies dizziness, Denies frequent falls, Denies loss of vision, Denies numbness and Denies weakness Psychiatric Psychiatric: Denies anxiety, Denies behavioral changes, Denies confusion, Denies depression, Denies homicidal ideation and Denies suicidal ideation Endocrine Endocrine: Denies fatigue, Denies flushing and Denies palpitations Hematologic/Lymphatic Hematologic/Lymphatic: Denies easy bruising Allergic/Immunologic Allergic/Immunologic: Denies urticaria, Denies throat swelling and Denies wheezing Patient History Medical History (Updated 10/22/20 @ 19:44 by Miguel Kahn DO) C3 spinal cord injury C4 spinal cord injury CVA (cerebral vascular accident) Diabetes Gastroesophageal reflux disease Hyperlipidemia Hypertension Surgical History History of carotid endarterectomy History of coronary artery stent placement No pertinent past surgical history Family History Mother Cancer Father Lung disease Hyperlipidemia Brother Lupus Social History household members: caregiver Smoking Status: Current every day smoker alcohol intake: current substance use type: does not use additional social history: He currently resides in He currently resides in [facility]. Smoking Status: Current every day smoker tobacco type: cigarettes alcohol intake frequency: holidays/special occasions only Substance Use Type: does not use Exam Narrative Exam Narrative: GEN: AOx3 and in mild distress EYES: Pupils are equal, round, and reactive to light and accommodation. Extraoccular muscles are intact bilaterally. There is no subconjunctival hemorrhage or exudate. CHEST: Lungs are clear to auscultation bilaterally and free of wheezes, rales, or rhonchi. Heart rate is regular rhythm, there are no murmurs, clicks, rubs, or gallops. There is no chest wall tenderness. ABD: Abdomen is soft and nontender. There is no guarding or rebound. Bowel sounds are normal in all 4 quadrants. There is no mass or organomegaly. EXT: Full painless ROM of all extremities with no loss of sensation or strength. SKIN: Warm, pink, and dry. No erythema or rash Initial Vital Signs Initial Vital Signs: Vital Signs Temperature 98.6 F 10/22/20 16:45 Pulse Rate 87 10/22/20 16:45 Respiratory Rate 20 10/22/20 16:45 Blood Pressure 132/67 10/22/20 16:45 Pulse Oximetry 97 10/22/20 16:45 Course Course Course Narrative: Patient has Guzman catheter placed and has complete resolution of symptoms Vital Signs Vital signs: Vital Signs - 8 hr 10/22/20 19:29 Pulse Rate 92 H Respiratory Rate 20 Blood Pressure 167/79 H Pulse Oximetry 96 MDM - Male Genitourinary Lab Data Labs: Urine Dip Bedside Urine Glucose Negative Bedside Urine Bilirubin - Negative Bedside Urine Ketone - Negative Urine Specific [place] 1.025 Bedside Urine Occult Blood - Negative Bedside Urine pH 6 Bedside Urine Protein - Negative Bedside Urine Urobilinogen - Negative Bedside Urine Nitrite - Negative Bedside Urine Leukocytes - Negative Esterase Discharge Plan Departure Patient Disposition: Home Clinical Impression: Acute urinary retention Instructions: DI for Urinary Retention in Men Activity Restrictions/Additional Instructions: *You have been diagnosed with [acute urinary retention] *What to do: *Please continue to take your regular medications as directed. [ ] New medication prescriptions sent to your pharmacy: [ ] [ ] New medication written as a paper prescription [x ] No new medications given *Please follow up with your primary care provider in 2-3 days, call for an appointment. Let them know you were seen in the Emergency Department and that we ask that you be seen in follow up. Otherwise, you may follow-up with Dr. Rosenbaum with Urology, his contact information is provided below. The Guzman catheter will remain in place until then We will electronically transmit a record of today's note if your PCP is in our system *If you do not have a primary care provider please contact the [facility] Resource line at [phone]. They will ask some questions about your medical history and help get you set up with a doctor in the community. *Return to Emergency Department if you should have any new, worsening or concerning symptoms, such as [fever greater than 101 F, shaking chills, worsening pain, persistent vomiting or other bothersome symptoms] Prescriptions: No Action atorvastatin 80 MG tablet 80 mg PO BEDTIME Qty: 0 RF: 0 clopidogrel 75 MG tablet 75 mg PO DAILY Qty: 0 RF: 0 levothyroxine 50 MCG tablet 50 mcg PO QPM Qty: 0 RF: 0 metoprolol succinate [Toprol XL] 25 MG tablet extended release 24 hr 12.5 mg PO DAILY Qty: 0 RF: 0 sennosides [senna] 8.6 MG tablet 17.2 mg PO BEDTIME Qty: 0 RF: 0 acetaminophen 325 MG tablet 650 mg PO Q4HP PRN (Reason: Fever Or Pain) Qty: 0 RF: 0 omeprazole 20 MG capsule,delayed release(DR/EC) 20 mg PO DAILY Qty: 0 RF: 0 bisacodyl 10 MG suppository 10 mg [place] PRN PRN (Reason: Constipation) Qty: 0 RF: 0 bisacodyl [Fleet Laxative (bisacodyl)] 5 MG tablet,delayed release (DR/EC) 10 mg PO PRN PRN (Reason: no BM x 3 days ) Qty: 0 RF: 0 Maalox Maximum Strength 355 ML suspension 30 ml PO Q4H PRN (Reason: gi upset) Qty: 0 RF: 0 magnesium hydroxide [Milk of Magnesia] 400 mg/5 mL Suspension 30 ml PO PRN PRN (Reason: Constipation) RF: 0 docusate sodium 100 mg Capsule 2 tab PO BID RF: 0 aspirin 325 mg Tablet,Delayed Release (Dr/Ec) 325 mg PO DAILY RF: 0 furosemide 40 mg tablet 40 mg PO DAILY RF: 0 calcium carbonate 600 mg calcium (1,500 mg) Tablet 1,200 mg PO QPM RF: 0 vitamin B complex [B Complex-Vitamin B12] Tablet 1 tab PO QPM RF: 0 mirtazapine 15 mg Tablet 22.5 mg PO BEDTIME RF: 0 fluticasone propionate 50 mcg/actuation [place],Suspension 1 spray INTRANASAL BID RF: 0 cholecalciferol (vitamin D3) 1,000 unit Capsule 1,000 unit PO QPM RF: 0 hydroxyzine pamoate 25 mg Capsule 25 - 50 mg PO Q6H PRN (Reason: pain/spasms) RF: 0 insulin glargine 100 unit/mL (3 mL) Insulin Pen 8 unit SUBCUT BID RF: 0 ondansetron 4 mg Tablet,Disintegrating 4 mg PO Q4H PRN (Reason: Nausea) RF: 0 ammonium lactate 12 % Lotion 1 applic TOPICAL BID PRN (Reason: Dry Skin) RF: 0 guaifenesin [Mucinex] 600 mg Tablet Extended Release 12hr 600 mg PO Q12H RF: 0 cetirizine 10 mg Tablet 10 mg PO DAILY PRN (Reason: allergies) RF: 0 sodium chloride [Saline Mist] 0.65 % Aerosol,[place] 1 spray INTRANASAL Q6H PRN (Reason: Congestion) RF: 0 Glucagon Emergency Kit (human) 1 mg Recon Soln 1 mg IM PRN MDD ` PRN (Reason: blood glucose <60) RF: 0 duloxetine 60 mg capsule,delayed release(DR/EC) 60 mg PO BEDTIME RF: 0 nystatin 100,000 unit/gram Cream 1 applic TOPICAL BID PRN (Reason: yeast) RF: 0 oxycodone [OxyContin] 20 mg Tablet,Oral Only,Ext.Rel.12 Hr 20 mg PO Q8H Qty: 20 RF: 0 clonazepam 0.5 mg tablet 0.75 mg PO Q6H PRN (Reason: Anxiety) Qty: 20 RF: 0 Health Shake 1 ea PO QPM RF: 0 Alcohol Liquor 1 ea PO DAILY PRN (Reason: life enjoyment) RF: 0 dextromethorphan polistirex [Delsym 12 hour] 30 mg/5 mL Suspension,Extended Rel 12 Hr 10 ml PO Q12H PRN (Reason: Cough) RF: 0 ibuprofen 400 mg Tablet 400 mg PO Q4H PRN (Reason: pain) RF: 0 bisacodyl 5 mg Tablet,Delayed Release (Dr/Ec) 5 mg PO PRN PRN (Reason: no BM x 2 days) RF: 0 oxycodone 5 mg tablet 5 mg PO Q4H PRN (Reason: pain) RF: 0 doxycycline hyclate 100 mg capsule 100 mg PO BIDX4D RF: 0 cefdinir 300 mg capsule 300 mg PO BIDX4D RF: 0 insulin aspart U-100 [Novolog Flexpen U-100 Insulin] 100 unit/mL insulin pen 100 unit SUBCUT QID RF: 0 baclofen 10 mg tablet 10 mg PO TID RF: 0 artifi.tears(hypromellose)(PF) 0.3 % drops 2 drp EYE-BOTH BID RF: 0 Referrals: Modesta Rosenbaum MD [Physician] - Eli Canas ARNP [Primary Care Provider] -
[2020-10-22 19:29] VITALS: BP 167/79; PULSE 92; RESP 20; O2SAT 96
== END 2020-10-22 20:25 | disposition home or self-care (01) ==
PROVIDERS: Emergency Provider Emergency Medicine; Family Provider Nurse Practitioner Family; PCP Registered Nurse
DX: R33.9 Retention of urine, unspecified (principal)
CPT/HCPCS: 51702; 81003; 99283

== ENCOUNTER → 2020-10-29 14:20 | Outpatient (CLI) | payer MEDICARE, MEDICAID, SELFPAY ==
[2019-03-02 18:01] VITALS: BMI 27.4
== END ==
PROVIDERS: Family Provider Nurse Practitioner Family; PCP Registered Nurse; Referring Provider Nurse Practitioner Family; Visit Provider Family Medicine
DX: E10.622 Type 1 diabetes mellitus with other skin ulcer (principal); L97.812 Non-pressure chronic ulcer of other part of right lower leg with fat layer exposed; E10.51 Type 1 diabetes mellitus with diabetic peripheral angiopathy without gangrene; Z89.511 Acquired absence of right leg below knee
CPT/HCPCS: 99213; 99214

== ENCOUNTER → 2020-10-31 12:07 | Outpatient (ROUT) | payer MEDICARE, MEDICAID, SELFPAY ==
[2019-03-02 18:01] VITALS: BMI 27.4
[2020-10-31 13:13] LABS: Prostate Specific Antigen 0.251 ng/mL (0.10-4.00)
== END ==
PROVIDERS: Family Provider Nurse Practitioner Family; PCP Registered Nurse; Visit Provider Internal Medicine
DX: Z12.5 Encounter for screening for malignant neoplasm of prostate (principal)
CPT/HCPCS: 84153; 87070; 87077; 87186; 87205

== ENCOUNTER → 2020-11-05 14:19 | Outpatient (CLI) | payer MEDICARE, MEDICAID, SELFPAY ==
[2019-03-02 18:01] VITALS: BMI 27.4
== END ==
PROVIDERS: Family Provider Nurse Practitioner Family; PCP Registered Nurse; Referring Provider Nurse Practitioner Family; Visit Provider Family Medicine
DX: E10.622 Type 1 diabetes mellitus with other skin ulcer (principal); L97.812 Non-pressure chronic ulcer of other part of right lower leg with fat layer exposed; Z89.511 Acquired absence of right leg below knee; I73.9 Peripheral vascular disease, unspecified
CPT/HCPCS: 99213; 99214

== ENCOUNTER → 2020-11-12 14:07 | Outpatient (CLI) | payer MEDICARE, MEDICAID, SELFPAY ==
[2019-03-02 18:01] VITALS: BMI 27.4
== END ==
PROVIDERS: Family Provider Nurse Practitioner Family; PCP Registered Nurse; Referring Provider Registered Nurse; Visit Provider Family Medicine
DX: E10.622 Type 1 diabetes mellitus with other skin ulcer (principal); L97.812 Non-pressure chronic ulcer of other part of right lower leg with fat layer exposed; Z89.511 Acquired absence of right leg below knee; I73.9 Peripheral vascular disease, unspecified
CPT/HCPCS: 99213; 99214

== ENCOUNTER → 2020-11-22 13:06 | Outpatient (CLI) | payer MEDICARE, MEDICAID, SELFPAY ==
[2019-03-02 18:01] VITALS: BMI 27.4
--- NOTE | 2020-11-22 13:10 | DI.MRI.S_ITS ---
PROCEDURE: MR RUN OFF 3 STAGES ABD START INDICATIONS: Peripheral vascular disease, unspecified TECHNIQUE: Precontrast axial and coronal TruFISP acquired through the abdomen and pelvis. Multi-station dynamic coronal MRA using Care Bolus timing from the kidneys to the ankles during the administration of contrast, with 3-dimensional maximum intensity projection (MIP) reformats constructed. COMPARISON: [facility] Ultrasound, US, US ARTERIAL LOWER EXTREMITY DOPPLER RIGHT, 11/06/2020, 14:45. FINDINGS: Image quality: Excellent. ABDOMEN: Aorta: Moderate diffuse plaque causes mild diffuse stenosis. No aneurysm nor dissection. Renal arteries: Renal arteries all appear patent. Extravascular soft tissues: Visualized solid organs are normal in size on limited pre-contrast images. Bowel loops are normal in caliber. No free fluid. No retroperitoneal or mesenteric adenopathy by size criteria. No ventral hernias. Bones: Marrow demonstrates normal overall signal. PELVIS AND BILATERAL LOWER EXTREMITIES: Right sided vessels: Mild diffuse stenosis within the common iliac artery which is obscured distally by stent artifact. Proximal external iliac artery is obscured by stent artifact. Internal iliac artery is occluded. Common femoral artery is mildly diffusely stenotic. Profunda femoral artery is patent. Superficial femoral artery is occluded. Popliteal artery reconstitutes proximally, and occludes at the knee joint. Below-knee popliteal artery is occluded. Patient is status post below-knee amputation. Left sided vessels: Mild diffuse stenosis within the proximal common iliac artery which is otherwise patent. Internal and external iliac arteries are patent. Common femoral artery is patent. Profunda and superficial femoral arteries are mildly diffusely stenotic. Above and below knee popliteal artery is mildly diffusely stenotic. Anterior tibial artery is mildly diffusely stenotic. Tibioperoneal trunk is patent. Posterior tibial artery is occluded. Peroneal artery is patent. IMPRESSION: 1. No significant left-sided inflow stenosis. Obscured right external iliac artery by stent artifact. Otherwise, no evidence of right-sided inflow stenosis. 2. Right-sided outflow occlusion. Status post right below-knee amputation. 3. No significant left-sided outflow stenosis. 4. 2 vessel left lower extremity runoff. Dictated by: Gary Kirkpatrick M.D. on 11/22/2020 at 14:21 Approved by: Gary Kirkpatrick M.D. on 11/22/2020 at 14:28
== END ==
PROVIDERS: Family Provider Nurse Practitioner Family; PCP Registered Nurse; Referring Provider Family Medicine; Visit Provider Family Medicine
DX: Z95.820 Peripheral vascular angioplasty status with implants and grafts (principal); I73.9 Peripheral vascular disease, unspecified
CPT/HCPCS: C8902; C8912; C8918

== ENCOUNTER → 2020-11-26 14:26 | Outpatient (CLI) | payer MEDICARE, MEDICAID, SELFPAY ==
[2019-03-02 18:01] VITALS: BMI 27.4
== END ==
PROVIDERS: Family Provider Nurse Practitioner Family; PCP Registered Nurse; Referring Provider Registered Nurse; Visit Provider Family Medicine
DX: T87.89 Other complications of amputation stump (principal); E10.622 Type 1 diabetes mellitus with other skin ulcer; L97.812 Non-pressure chronic ulcer of other part of right lower leg with fat layer exposed; I73.9 Peripheral vascular disease, unspecified; F17.210 Nicotine dependence, cigarettes, uncomplicated
CPT/HCPCS: 11042; 87070; 87075; 87077; 87186; 87205; 99214

== ENCOUNTER → 2020-11-28 12:41 | Outpatient (ROUT) | payer MEDICARE, MEDICAID, SELFPAY ==
[2019-03-02 18:01] VITALS: BMI 27.4
[2020-11-28 12:50] LABS: Appearance Urine UA CLOUDY; Bilirubin Urine UA NEGATIVE (NEGATIVE); Color Urine UA YELLOW; Glucose Urine UA NEGATIVE (Negative); Ketones Urine UA NEGATIVE (NEGATIVE); Leukocyte Esterase Urine UA 2+ (NEGATIVE); Nitrite Urine UA NEGATIVE (Negative); Occult Blood Urine UA 3+ (Negative); Protein Urine UA 2+ (Negative); Urobilinogen Urine UA 0.2 E.U./dL (0.2); pH Urine UA 6.5 (4.5-8.0)
[2020-11-28 12:56] LABS: Add Manual Diff / Slide Review NO; Amorphous Sediment Urine 1+; Bacteria Urine Many (>30); Basophils Absolute Auto 100 /uL (0-100); Basophils Percent Auto 0.5 % (0-2); Culture Indicated Urine Specimen Cultured; Eosinophils Absolute Auto 400 /uL (0-450); Hematocrit 35.9 % (41-53); Hemoglobin 11.7 g/dL (13.5-17.5); Lymphocytes Absolute Auto 1300 /uL (1100-4500); Lymphocytes Percent Auto 10.7 % (25-40); Mean Corpuscular HGB Conc 32.6 % (30-36); Mean Corpuscular Hemoglobin 28.2 PG (26-34); Mean Corpuscular Volume 86.4 fL (80-100); Monocytes Absolute Auto 1400 /uL (0-900); Monocytes Percent Auto 11.5 % (3-14); Mucus Urine 2+ (Negative); Neutrophils Absolute Auto 8900 /uL (1500-7000); Neutrophils Percent Auto 74.3 % (50-75); Platelet Count 373 X10^3/uL (150-400); RBC Urine 1-5/HPF (0-5/HPF); Red Blood Cell Count 4.15 X10^6/uL (4.5-5.9); Red Cell Distribution Width 13.5 % (11.6-14.8); Squamous Epithelial Cell Urine 0-1 /HPF (0-5/HPF); WBC Urine >100/HPF (0-5/HPF)
[2020-11-28 13:06] LABS: BUN Creatinine Ratio 22.8 (6-22); Blood Urea Nitrogen 23 mg/dL (9-20); Calcium 9.2 mg/dL (8.4-10.2); Carbon Dioxide 32 mmol/L (22-32); Chloride 99 mmol/L (98-107); Estimated Glomerular Filt Rate > 60.0 mL/min (>60); Glucose 139 mg/dL (80-110); HEMOLYSIS < 15 (0-50); Potassium 3.8 mmol/L (3.4-5.1); Sodium 136 mmol/L (137-145)
== END ==
PROVIDERS: Family Provider Nurse Practitioner Family; PCP Registered Nurse; Visit Provider Internal Medicine
DX: R53.81 Other malaise (principal)
CPT/HCPCS: 80048; 81001; 85025; 87077; 87086; 87186

== ENCOUNTER → 2020-12-03 08:20 | Outpatient (ROUT) | payer MEDICARE, MEDICAID, SELFPAY ==
[2019-03-02 18:01] VITALS: BMI 27.4
[2020-12-03 09:15] LABS: Magnesium 1.9 mg/dL (1.6-2.3)
== END ==
PROVIDERS: Family Provider Nurse Practitioner Family; PCP Registered Nurse; Visit Provider Internal Medicine
DX: E83.42 Hypomagnesemia (principal)
CPT/HCPCS: 36415; 83735

== ENCOUNTER → 2020-12-10 14:35 | Outpatient (CLI) | payer MEDICARE, MEDICAID, SELFPAY ==
[2019-03-02 18:01] VITALS: BMI 27.4
== END ==
PROVIDERS: Family Provider Nurse Practitioner Family; PCP Registered Nurse; Referring Provider Registered Nurse; Visit Provider Family Medicine
DX: E10.622 Type 1 diabetes mellitus with other skin ulcer (principal); T87.89 Other complications of amputation stump; L97.812 Non-pressure chronic ulcer of other part of right lower leg with fat layer exposed; E10.51 Type 1 diabetes mellitus with diabetic peripheral angiopathy without gangrene; L08.9 Local infection of the skin and subcutaneous tissue, unspecified; Z89.511 Acquired absence of right leg below knee; F17.200 Nicotine dependence, unspecified, uncomplicated
CPT/HCPCS: 11042; 99213

== ENCOUNTER → 2020-12-17 08:26 | Outpatient (ROUT) | payer MEDICARE, MEDICAID, SELFPAY ==
[2019-03-02 18:01] VITALS: BMI 27.4
[2020-12-17 09:55] LABS: Add Manual Diff / Slide Review NO; Basophils Absolute Auto 100 /uL (0-100); Eosinophils Absolute Auto 400 /uL (0-450); Eosinophils Percent Auto 5.5 % (2-4); Hematocrit 36.7 % (41-53); Hemoglobin 12.1 g/dL (13.5-17.5); Lymphocytes Absolute Auto 1900 /uL (1100-4500); Mean Corpuscular Hemoglobin 28.8 PG (26-34); Mean Corpuscular Volume 87.2 fL (80-100); Monocytes Absolute Auto 600 /uL (0-900); Monocytes Percent Auto 7.7 % (3-14); Neutrophils Absolute Auto 5100 /uL (1500-7000); Neutrophils Percent Auto 62.8 % (50-75); Platelet Count 423 X10^3/uL (150-400); Red Blood Cell Count 4.21 X10^6/uL (4.5-5.9); White Blood Cell Count 8.1 X10^3/uL (4.5-11.0)
[2020-12-17 10:18] LABS: Alanine Aminotransferase 46 IU/L (<50); Albumin 3.8 g/dL (3.5-5.0); Albumin Globulin Ratio 1.2 (1.0-2.8); Alkaline Phosphatase 167 U/L (38-126); Aspartate Aminotransferase 43 IU/L (17-59); BUN Creatinine Ratio 25.3 (6-22); Bilirubin Total 0.2 mg/dL (0.2-1.3); Blood Urea Nitrogen 23 mg/dL (9-20); Calcium 9.2 mg/dL (8.4-10.2); Carbon Dioxide 35 mmol/L (22-32); Chloride 95 mmol/L (98-107); Estimated Glomerular Filt Rate > 60.0 mL/min (>60); Globulin 3.1 g/dL (1.7-4.1); Glucose 241 mg/dL (80-110); HEMOLYSIS < 15 (0-50); Potassium 3.7 mmol/L (3.4-5.1); Sodium 137 mmol/L (137-145); Total Protein 6.9 g/dL (6.3-8.2)
== END ==
PROVIDERS: Family Provider Nurse Practitioner Family; PCP Registered Nurse; Visit Provider Nurse Practitioner Gerontology
DX: N18.9 Chronic kidney disease, unspecified (principal); R33.9 Retention of urine, unspecified
CPT/HCPCS: 36415; 80053; 85025

== ENCOUNTER 2020-12-20 13:08 | Emergency (ER) | payer MEDICARE, MEDICAID, SELFPAY ==
[2019-03-02 18:01] VITALS: BMI 27.4
[2020-12-20] VITALS (11 sets, daily range): BP systolic 100–149; BP diastolic 57–84; PULSE 75–87; RESP 9–17; TEMP 36.7; O2SAT 91–99
--- NOTE | 2020-12-20 13:07 | DI.CT.S_ITS ---
PROCEDURE: CT STROKE INDICATIONS: stroke TECHNIQUE: Noncontrast 4.5 mm thick angled axial sections acquired from the foramen magnum to the vertex, with coronal reformats. For radiation dose reduction, the following was used: automated exposure control, adjustment of mA and/or kV according to patient size. COMPARISON: [facility], CT, CT HEAD/BRAIN WO CON, 09/08/2020, 23:39. [facility], CT, CT HEAD/BRAIN WO CON, 10/22/2020, 0:45. FINDINGS: Image quality: Excellent. CSF spaces: Basal cisterns are patent. No extra-axial fluid collections. The ventricles are symmetric in size and shape. Brain: No intracranial bleeds or masses. Old lacunar infarct in left thalamus. There is cerebral volume loss for age, with resultant ventricular and sulcal prominence. There are periventricular and deep white matter chronic small vessel ischemic changes. There is intracranial internal carotid artery atherosclerosis. Skull and face: Calvarium and visualized facial bones appear intact, without suspicious lesions. Sinuses: Visualized sinuses and mastoids are clear. IMPRESSION: 1. No acute intracranial abnormalities. The result was discussed with Dr. Acharya in ER on 12/20/2020 at 13;17 hours. This study fulfills neurological imaging criteria for inclusion or exclusion of acute stroke therapies based on available published neurological guidelines. Dictated by: Clif Bermeo M.D. on 12/20/2020 at 13:14 Approved by: Clif Bermeo M.D. on 12/20/2020 at 13:19
--- NOTE | 2020-12-20 13:08 | DI.CT.S_ITS ---
PROCEDURE: CT ANGIO HEAD AND NECK INDICATIONS: stroke, prior old new weakness ,vision change today TECHNIQUE: After the administration of intravenous contrast, 1 mm thick sections acquired from the aortic arch through the [place] of [place]. Post-contrast 4.5 mm thick sections then re-acquired from the foramen magnum to the vertex. 3-dimensional hmcbqen-[id number]-[id number] (MIP) and/or volume rendering reformats were acquired of the central intracranial vasculature and neck separately. COMPARISON: [facility], CT, CT HEAD/BRAIN WO CON, 10/22/2020, 0:45. [facility], CT, CT STROKE, 12/20/2020, 13:11. FINDINGS: Image quality: Excellent. BRAIN: CSF spaces: Ventricles are normal in size and shape. Basal cisterns are patent. No extra-axial fluid collections. Brain: No intracranial hematoma collections, mass, or mass effect. There are hypodensities within the thalami redemonstrated compatible with sequelae of prior infarcts. No abnormal intracranial enhancement. There are periventricular and subcortical white matter hypodensities consistent with mild chronic small vessel ischemic changes. Skull and face: Calvarium and facial bones appear intact, without suspicious lesions. Orbits appear normal. Sinuses: Sinuses and mastoids are clear. HEAD CT ANGIOGRAPHY: Anterior circulation: Intracranial internal carotid arteries are normal in size and appear patent bilaterally. There is atherosclerotic calcification along the petrous and cavernous segments of the internal carotid arteries with mild to moderate multifocal narrowing. The paired anterior cerebral arteries appear patent bilaterally. The anterior communicating artery also appears patent. The middle cerebral arteries appear patent bilaterally. No high-grade stenosis, occlusion, or filling defects. No cerebral aneurysms identified. Posterior circulation: There is a left dominant vertebrobasilar system. A diminutive right vertebral artery demonstrates faint enhancement distally with moderate narrowing secondary to filling defects. This joins with a patent left vertebral artery to form the basilar artery which appears patent throughout its course. The posterior cerebral arteries appears patent bilaterally. No high-grade stenosis, occlusion, or filling defects. No cerebral aneurysms identified. NECK CT ANGIOGRAPHY: Carotid system: The great vessels demonstrate a conventional anatomy as they arise from the aortic arch. The origins of the common carotid arteries appear patent. The common carotid arteries demonstrate normal caliber and courses. There is mild atherosclerotic calcification with minimal narrowing in the carotid bulbs bilaterally. The subsequent extracranial internal carotid arteries demonstrate normal calibers and courses. Posterior circulation: There is apparent occlusion of the proximal right vertebral artery at its origin with subsequent reconstitution of a small right vertebral artery at the level of C2-C3. There are moderate filling defects within the distal right vertebral artery which joins with the left vertebral artery to form the basilar artery. There is a left dominant vertebrobasilar system with a diminutive right vertebral artery. Soft tissues: Visualized neck and upper chest demonstrate multiple prominent mediastinal lymph nodes measuring up to 0.8 cm in short axis. Bones: No suspicious bony lesions. Visualized cervical spine demonstrates fusion of the C3 through C5 vertebral bodies with mild reversal of the cervical lordosis. IMPRESSION: 1. 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 2. A left dominant vertebrobasilar system is present with the left vertebral artery patent along its course. 3. No high-grade stenosis or occlusion of the central intracranial arteries. [id number] multifocal narrowing demonstrated along the petrous and cavernous segments of the internal carotid arteries. 4. Minimal narrowing within the carotid bulbs. 5. Hypodensities within the thalami bilaterally suggesting sequelae of prior infarcts. 6. Mildly prominent mediastinal lymph nodes within the visualized chest are nonspecific but likely reactive. Any quantitative measurements of stenosis were performed using NASCET criteria. Dictated by: Artemio Vaz M.D. on 12/20/2020 at 13:37 Approved by: Artemio Vaz M.D. on 12/20/2020 at 13:57
--- NOTE | 2020-12-20 13:32 | RT ---
Responded to Code Stroke, airway patent and no distress noted. Pt on room air
[2020-12-20 13:36] LABS: Add Manual Diff / Slide Review NO; Basophils Absolute Auto 100 /uL (0-100); Basophils Percent Auto 0.8 % (0-2); Eosinophils Absolute Auto 400 /uL (0-450); Hematocrit 33.1 % (41-53); Lymphocytes Absolute Auto 1900 /uL (1100-4500); Lymphocytes Percent Auto 15.5 % (25-40); Mean Corpuscular HGB Conc 33.2 % (30-36); Mean Corpuscular Hemoglobin 28.7 PG (26-34); Mean Corpuscular Volume 86.6 fL (80-100); Monocytes Absolute Auto 1200 /uL (0-900); Monocytes Percent Auto 9.7 % (3-14); Neutrophils Absolute Auto 8500 /uL (1500-7000); Platelet Count 355 X10^3/uL (150-400); Red Blood Cell Count 3.82 X10^6/uL (4.5-5.9)
[2020-12-20] MEDS: DEXTROSE 50 % IN WATER 25 GM/50 ML SYRINGE IV (13:37)
[2020-12-20] MEDS: SODIUM CHLORIDE 0.9% 1,000 ML 150 ML IV (13:37)
[2020-12-20 13:47] LABS: BUN Creatinine Ratio 25.3 (6-22); Blood Urea Nitrogen 23 mg/dL (9-20); Calcium 8.5 mg/dL (8.4-10.2); Carbon Dioxide 34 mmol/L (22-32); Chloride 100 mmol/L (98-107); Estimated Glomerular Filt Rate > 60.0 mL/min (>60); Glucose 65 mg/dL (80-110); HEMOLYSIS < 15 (0-50); Potassium 3.9 mmol/L (3.4-5.1); Sodium 138 mmol/L (137-145)
--- NOTE | 2020-12-20 13:52 | ED.NEUROSD ---
HPI - Neuro Symptoms/Deficit General Chief Complaint: Neuro Symptoms/Deficit Stated Complaint: code stroke Time Seen by Provider: 12/20/20 13:10 Source: EMS Mode of arrival: EMS Limitations: no limitations History of Present Illness HPI Narrative: This is a 65-year-old male who comes to the emergency department with complaint of new left-sided weakness. Patient has a history of prior strokes in 1998 x3, prior upper cervical spinal injury. 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 Patient has known stents in his right lower extremity. He does not have any cardiac stents. Patient states he did have his insulin today, at lunch he realized he could not lift his arm to eat his food. He lives at [facility] and the staff appreciated his changes. His glucose was 80 with EMS patient states symptoms started around 12 30 but he could not give me an exact time frame but he was normal when he woke up and was able to perform normal activities when he woke up. Patient was sent here for possible stroke. He denies any headache, he has some discomfort behind his eyes. No chest pain or shortness of breath. He has had some nausea secondary to riding in the ambulance but no vomiting. He has chronic back pain with prior back surgeries but no new changes in pain. Patient has prior right-sided deficit with a dense hemiparesis. He has some chronic dysarthria but is able to speak and his normal baseline. He takes an aspirin daily. Patient denies any other current symptoms currently. On Anticoagulants: Yes (ASA) Related Data Home Medications Medication Instructions Recorded Confirmed acetaminophen 325 mg tablet 650 mg PO Q4HP PRN #0 06/29/17 03/07/19 aluminum-mag hydroxide-simethicone 30 ml PO Q4H PRN #0 06/29/17 03/07/19 400 mg-400 mg-40 mg/5 mL oral susp (Maalox Maximum Strength) atorvastatin 80 mg tablet 80 mg PO BEDTIME #0 06/29/17 03/07/19 bisacodyl 10 mg rectal suppository 10 mg HI PRN PRN #0 06/29/17 03/07/19 bisacodyl 5 mg tablet,delayed 10 mg PO PRN PRN #0 06/29/17 03/07/19 release (Fleet Laxative (bisacodyl)) clopidogrel 75 mg tablet 75 mg PO DAILY #0 06/29/17 03/07/19 levothyroxine 50 mcg tablet 50 mcg PO QPM #0 06/29/17 03/07/19 metoprolol succinate 25 mg 12.5 mg PO DAILY #0 06/29/17 03/07/19 tablet,extended release 24 hr (Toprol XL) omeprazole 20 mg capsule,delayed 20 mg PO DAILY #0 06/29/17 03/07/19 release sennosides 8.6 mg tablet (senna) 17.2 mg PO BEDTIME #0 06/29/17 03/07/19 artifi.tears(hypromellose)(PF) 0.3 2 drp EYE-BOTH BID ml 11/25/17 03/07/19 % eye drops baclofen 10 mg tablet 10 mg PO TID 11/25/17 03/07/19 insulin aspart U-100 100 unit/mL 100 unit SUBCUT QID 11/25/17 03/07/19 (3 mL) subcutaneous pen (Novolog Flexpen U-100 Insulin aspart) docusate sodium 100 mg capsule 2 tab PO BID 03/05/18 03/07/19 magnesium hydroxide 400 mg/5 mL 30 ml PO PRN PRN 03/05/18 03/07/19 oral suspension (Milk of Magnesia) ammonium lactate 12 % lotion 1 applic TOPICAL BID PRN 08/13/18 03/07/19 calcium carbonate 600 mg calcium 1,200 mg PO QPM 08/13/18 03/07/19 (1,500 mg) tablet cholecalciferol (vitamin D3) 25 1,000 unit PO QPM 08/13/18 03/07/19 mcg (1,000 unit) capsule fluticasone propionate 50 1 spray INTRANASAL BID 08/13/18 03/07/19 mcg/actuation nasal spray,suspension guaifenesin 600 mg tablet, 600 mg PO Q12H 08/13/18 03/07/19 extended release 12 hr (Mucinex) hydroxyzine pamoate 25 mg capsule 25 - 50 mg PO Q6H PRN 08/13/18 03/07/19 insulin glargine 100 unit/mL (3 8 unit SUBCUT BID 08/13/18 03/07/19 mL) subcutaneous pen mirtazapine 15 mg tablet 22.5 mg PO BEDTIME 08/13/18 03/07/19 ondansetron 4 mg disintegrating 4 mg PO Q4H PRN 08/13/18 03/07/19 tablet vitamin B complex (B 1 tab PO QPM 08/13/18 03/07/19 Complex-Vitamin B12) cetirizine 10 mg tablet 10 mg PO DAILY PRN 01/25/19 03/07/19 sodium chloride 0.65 % nasal spray 1 spray INTRANASAL Q6H PRN 01/25/19 03/07/19 aerosol (Saline Mist) aspirin 325 mg tablet,delayed 325 mg PO DAILY 02/20/19 03/07/19 release furosemide 40 mg tablet 40 mg PO DAILY 02/20/19 03/07/19 duloxetine 60 mg capsule,delayed 60 mg PO BEDTIME 03/02/19 03/07/19 release glucagon (human recombinant) 1 mg 1 mg IM PRN PRN MDD ` 03/02/19 03/07/19 solution for injection (Glucagon Emergency Kit) nystatin 100,000 unit/gram topical 1 applic TOPICAL BID PRN 03/02/19 03/07/19 cream Alcohol Liquor 1 ea PO DAILY PRN 03/07/19 03/07/19 Health Shake 1 ea PO QPM 03/07/19 03/07/19 bisacodyl 5 mg tablet,delayed 5 mg PO PRN PRN 03/07/19 03/07/19 release cefdinir 300 mg capsule 300 mg PO [id number] 03/07/19 03/07/19 dextromethorphan polistirex 30 10 ml PO Q12H PRN 03/07/19 03/07/19 mg/5 mL oral susp ext.release 12hr (Delsym 12 hour) doxycycline hyclate 100 mg capsule 100 mg PO [id number] 03/07/19 03/07/19 ibuprofen 400 mg tablet 400 mg PO Q4H PRN 03/07/19 03/07/19 oxycodone 5 mg tablet 5 mg PO Q4H PRN 03/07/19 03/07/19 Previous Rx's Medication Instructions Recorded clonazepam 0.5 mg tablet 0.75 mg PO Q6H PRN #20 tab 03/05/19 oxycodone 20 mg tablet,crush 20 mg PO Q8H #20 tab 03/05/19 resistant,extended release 12 hr (OxyContin) Allergies Allergy/AdvReac Type Severity Reaction Status Date / Time amitriptyline Allergy Verified 09/28/20 01:00 pollen extracts Allergy Verified 09/28/20 01:00 codeine [CODEINE] AdvReac Unknown nausea Verified 09/28/20 01:00 Review of Systems Review of Systems ROS Unobtainable: All systems reviewed & are unremarkable except as noted in HPI and below Hematologic/Lymphatic On Anticoagulants: Yes (ASA) Patient History Medical History (Updated 12/20/20 @ 14:02 by Lara Acharya DO) C3 spinal cord injury C4 spinal cord injury CVA (cerebral vascular accident) Diabetes Gastroesophageal reflux disease Hyperlipidemia Hypertension Surgical History (Updated 12/20/20 @ 19:06 by Bella Alexander RN) History of carotid endarterectomy History of coronary artery stent placement No pertinent past surgical history Family History Mother Cancer Father Lung disease Hyperlipidemia Brother Lupus Social History household members: caregiver Smoking Status: Current every day smoker alcohol intake: current substance use type: does not use additional social history: He currently resides in He currently resides in [facility]. Smoking Status: Current every day smoker tobacco type: cigarettes alcohol intake frequency: holidays/special occasions only Substance Use Type: does not use Exam Narrative Exam Narrative: GEN: Chronically ill-appearing male, alert and oriented x 3, patient appears to be in mild distress. HEENT: Atraumatic, pupils are equal round reactive to light, extraocular movements are intact, nares are clear. Throat is clear without any exudates, erythema, tonsillar enlargement or uvular deviation, mild right facial droop with puffed cheeks. HEART: Regular rate and rhythm without murmur, clicks, rubs. LUNGS:Lungs clear to auscultation, no wheezes, rales, crackles, chest moves symmetrically ABD:bowel sounds normal, soft, non-tender, no guarding, rebound, rigidity, no masses noted, no hepatosplenomegaly :No CVA tenderness MSCL: Non-tender, patient does not have any movement on his right upper or lower extremity. On the left patient initially has difficulty with movement his right arm he attempts but does not able to lift against gravity. Left leg he is able to lift off the bed. After dextrose he has full range of motion of his left arm and lower extremity. NEURO:CN 2-12 intact, sensation normal, reflexes 2/4 upper and lower extremities. finger nose finger test normal on left, not performed on the right secondary to chronic hemiparesis, patient did not perform heel-solano secondary to prior BKA SKIN: No obvious wrist rash or skin changes appreciated Initial Vital Signs Initial Vital Signs: Vital Signs Temperature 98.1 F 12/20/20 13:10 Pulse Rate 86 12/20/20 13:10 Respiratory Rate 14 12/20/20 13:10 Blood Pressure 132/78 12/20/20 13:10 Pulse Oximetry 99 12/20/20 13:10 Scores NIH Stroke Scale Level of Conciousness: Alert, keenly responsive Ask month/age: Answers both questions correctly. Open/close eyes, close hand: Performs both tasks correctly Best gaze horizontal: Normal Visual hernandez: No visual loss Facial palsy: Minor paralysis, flattened nasolabial fold, asymmetry on smiling Left arm drift: No drift for full 10 sec Right arm drift: No effort against gravity Left leg drift: No drift for full 5 sec Right leg drift: No effort against gravity Limb ataxia: Amputation, joint fusion Sensory on face/arms/legs: Normal, no sensory loss Best language: No aphasia, normal Dysarthria: Mild to mod,some slurring (per patient normal state) Extinction or inattention: No abnormality Total NIH Stroke scale score: 8 Course Orders Ordered: ED Orders 12/20/20 13:07 CT Stroke Stat EKG-12 Lead Stat 12/20/20 13:08 CT angio head and neck Stat 12/20/20 13:22 Basic Metabolic Panel Stat Complete Blood Count AUTO DIFF Stat 12/20/20 14:15 COVID19 - ADMIT (TELECOMMUNICATIONS MANAGER swab/PCR) Stat 12/20/20 15:05 Urine Drug Screen, Rapid Stat 12/20/20 15:45 Urine Culture Stat Urine Microscopic Stat Discontinued Medications Dextrose (Dextrose 50 % In Water 25 Gm/50 Ml Syringe) 25 gm IV NOW ONE Stop: 12/20/20 13:35 Last Admin: 12/20/20 13:37 Dose: 25 gm Documented by: ABDIAZIZ Sodium Chloride (Normal Saline 0.9%) 1,000 mls @ 150 mls/hr IV CONT EUGENE Last Infusion: 12/20/20 15:44 Dose: 0 mls/hr Documented by: Admin: 12/20/20 13:37 Dose: 150 mls/hr Documented by: ABDIAZIZ Vital Signs Vital signs: Vital Signs - 8 hr 12/20/20 13:10 12/20/20 13:26 12/20/20 13:30 Temperature 98.1 F Pulse Rate 86 85 87 Respiratory Rate 14 17 15 Blood Pressure 132/78 115/61 Pulse Oximetry 99 94 91 12/20/20 13:45 12/20/20 14:00 12/20/20 14:15 Temperature Pulse Rate 81 79 79 Respiratory Rate 13 10 L 16 Blood Pressure 100/57 L Pulse Oximetry 91 93 93 12/20/20 14:30 12/20/20 14:45 12/20/20 15:00 Temperature Pulse Rate 78 77 76 Respiratory Rate 10 L 9 L 9 L Blood Pressure 130/76 126/79 141/83 H Pulse Oximetry 94 93 93 12/20/20 15:15 12/20/20 15:30 Temperature Pulse Rate 75 77 Respiratory Rate 9 L 16 Blood Pressure 135/84 149/79 H Pulse Oximetry 94 94 MDM - Neuro Symptoms/Deficit Lab Data Result diagrams: 12/20/20 13:22 12/20/20 13:22 Labs: Lab Results 12/20/20 12/20/20 12/20/20 Range/Units 13:22 13:22 14:15 WBC 12.0 H (4.5-11.0) X10^3/uL RBC 3.82 L (4.5-5.9) X10^6/uL Hgb 11.0 L (13.5-17.5) g/dL Hct 33.1 L (41-53) % MCV 86.6 (80-100) fL MCH 28.7 (26-34) PG MCHC 33.2 (30-36) % RDW 14.0 (11.6-14.8) % Plt Count 355 (150-400) X10^3/uL Neut % (Auto) 71.0 (50-75) % Lymph % (Auto) 15.5 L (25-40) % [place] % (Auto) 9.7 (3-14) % Eos % (Auto) 3.0 (2-4) % Baso % (Auto) 0.8 (0-2) % Neut # (Auto) 8500 H (8910-7966) /uL Lymph # (Auto) 1900 (8766-6175) /uL [place] # (Auto) 1200 H (0-900) /uL Eos # (Auto) 400 (0-450) /uL Baso # (Auto) 100 (0-100) /uL Sodium 138 (137-145) mmol/L Potassium 3.9 (3.4-5.1) mmol/L Chloride 100 (98-107) mmol/L Carbon Dioxide 34 H (22-32) mmol/L BUN 23 H (9-20) mg/dL Creatinine 0.91 (0.66-1.25) mg/dL Estimated GFR > 60.0 (>60) mL/min BUN/Creatinine Ratio 25.3 H (6-22) Glucose 65 L D (80-110) mg/dL Calcium 8.5 (8.4-10.2) mg/dL U Opiates 300ng/mL cut (Negative) Ur Oxycodone Screen (Negative) Urine Methadone Screen (Negative) Ur Barbiturates Screen (Negative) U Tricyclic Antidepress (Negative) Ur Phencyclidine Scrn (Negative) Ur Amphetamines Screen (Negative) U Methamphetamines Scrn (Negative) Ur MDMA Scrn (Ecstasy) (Negative) U Benzodiazepines Scrn (Negative) Urine Cocaine Screen (Negative) U Marijuana (THC) Screen (Negative) SARS-CoV-2 (PCR) Negative (Negative) 12/20/20 Range/Units 15:05 WBC (4.5-11.0) X10^3/uL RBC (4.5-5.9) X10^6/uL Hgb (13.5-17.5) g/dL Hct (41-53) % MCV (80-100) fL MCH (26-34) PG MCHC (30-36) % RDW (11.6-14.8) % Plt Count (150-400) X10^3/uL Neut % (Auto) (50-75) % Lymph % (Auto) (25-40) % [place] % (Auto) (3-14) % Eos % (Auto) (2-4) % Baso % (Auto) (0-2) % Neut # (Auto) (7972-5298) /uL Lymph # (Auto) (8261-1735) /uL [place] # (Auto) (0-900) /uL Eos # (Auto) (0-450) /uL Baso # (Auto) (0-100) /uL Sodium (137-145) mmol/L Potassium (3.4-5.1) mmol/L Chloride (98-107) mmol/L Carbon Dioxide (22-32) mmol/L BUN (9-20) mg/dL Creatinine (0.66-1.25) mg/dL Estimated GFR (>60) mL/min BUN/Creatinine Ratio (6-22) Glucose (80-110) mg/dL Calcium (8.4-10.2) mg/dL U Opiates 300ng/mL cut Positive H (Negative) Ur Oxycodone Screen Positive H (Negative) Urine Methadone Screen Negative (Negative) Ur Barbiturates Screen Negative (Negative) U Tricyclic Antidepress Negative (Negative) Ur Phencyclidine Scrn Negative (Negative) Ur Amphetamines Screen Negative (Negative) U Methamphetamines Scrn Negative (Negative) Ur MDMA Scrn (Ecstasy) Negative (Negative) U Benzodiazepines Scrn Negative (Negative) Urine Cocaine Screen Negative (Negative) U Marijuana (THC) Screen Positive H (Negative) SARS-CoV-2 (PCR) (Negative) Point of Care Testing Glucose POC 135 Urine Dip Bedside Urine Glucose Negative Bedside Urine Bilirubin - Negative Bedside Urine Ketone - Negative Urine Specific [place] 1.015 Bedside Urine Occult Blood ++ Bedside Urine pH 6.0 Bedside Urine Protein - Negative Bedside Urine Urobilinogen - Negative Bedside Urine Nitrite - Negative Bedside Urine Leukocytes +/- [address] scan - head: Radiologist's Impression: Ray Foster 65 M [address] [id number] Scan ReportSigned Patient: Ray Foster DMR#: [id number]: [id number]:[id number]/Sex: 65 / MDate of Service: 12/20/20Loc: EDAccession Number: [id number] Procedure: CT Stroke Ordering Provider: Lara Acharya D.O. PROCEDURE: CT STROKE INDICATIONS: stroke TECHNIQUE: Noncontrast 4.5 mm thick angled axial sections acquired from the foramen magnum to the vertex, with coronal reformats. For radiation dose reduction, the following was used: automated exposure control, adjustment of mA and/or kV according to patient size. COMPARISON: [facility], CT, CT HEAD/BRAIN WO CON, 09/08/2020, 23:39. [facility], CT, CT HEAD/BRAIN WO CON, 10/22/2020, 0:45. FINDINGS: Image quality: Excellent. CSF spaces: Basal cisterns are patent. No extra-axial fluid collections. The ventricles are symmetric in size and shape. Brain: No intracranial bleeds or masses. Old lacunar infarct in left thalamus. There is cerebral volume loss for age, with resultant ventricular and sulcal prominence. There are periventricular and deep white matter chronic small vessel ischemic changes. There is intracranial internal carotid artery atherosclerosis. Skull and face: Calvarium and visualized facial bones appear intact, without suspicious lesions. Sinuses: Visualized sinuses and mastoids are clear. IMPRESSION: 1. No acute intracranial abnormalities. The result was discussed with Dr. Acharya in ER on 12/20/2020 at 13;17 hours. This study fulfills neurological imaging criteria for inclusion or exclusion of acute stroke therapies based on available published neurological guidelines. Dictated by: Clif Bermeo M.D. on 12/20/2020 at 13:14 Approved by: Clif Bermeo M.D. on 12/20/2020 at 13:19 CTA - brain/neck: Radiologist's Impression: Chart Viewer Diagnostics DATE TYPE STATUS REF RANGE/AUTHOR Theron Today 13:08 Artemio Vaz Today 13:07 Blanca Bermeo 11/22/20 13:10 Gary Kirkpatrick 10/22/20 00:37 Dasha Reed 10/22/20 00:00 Blanca Bermeo 10/12/20 02:18 [place] 09/28/20 01:01 TainaBryan velarde 09/08/20 23:17 Brianna,Dasha 09/08/20 23:17 Brianna,Dasha 09/08/20 23:17 Brianna,Dasha 11/08/19 00:00 Arian Chacon 09/10/19 01:45 [place] 07/25/19 11:02 Nam Sapp 04/27/19 00:00 Harish Kumar 03/07/19 17:24 Lencho Brock 03/04/19 10:38 Jose Russo 03/02/19 14:48 03/02/19 14:48 03/02/19 10:49 Brianna,Dasha 03/02/19 10:46 Brianna,Dasha 02/20/19 16:30 VazArtemio mckinnon 02/20/19 16:30 TainaRosioe 01/25/19 20:25 Isa Guevara 12/05/18 00:00 NareshFritz 11/14/18 00:00 Brianna,Dasha 11/09/18 00:00 Harish Kumar 10/24/18 00:00 José,Scott 08/14/18 00:45 José,Harish 08/14/18 00:00 Harish Kumar 08/13/18 21:48 65, 06/05/1954 [facility], Main ED 78.2kg Neuro Symptoms/Deficit Search Chart MRSA - Contact NonFormulary Not Included in Conflicts nausea ONSET Today 15:30 Ray Foster Natalie 65 M [address] Scan ReportSigned Patient: Ray Foster DMR#: [id number]: [id number]:[id number]/Sex: 65 / MDate of Service: 12/20/20Loc: EDAccession Number: [id number] Procedure: CT angio head and neck Ordering Provider: Lara Acharya D.O. PROCEDURE: CT ANGIO HEAD AND NECK INDICATIONS: stroke, prior old new weakness ,vision change today TECHNIQUE: After the administration of intravenous contrast, 1 mm thick sections acquired from the aortic arch through the [place] of [place]. Post-contrast 4.5 mm thick sections then re-acquired from the foramen magnum to the vertex. 3-dimensional buporzo-hgkgdkjcs-mwclpveyec (MIP) and/or volume rendering reformats were acquired of the central intracranial vasculature and neck separately. COMPARISON: [facility], CT, CT HEAD/BRAIN WO CON, 10/22/2020, 0:45. [facility], CT, CT STROKE, 12/20/2020, 13:11. FINDINGS: Image quality: Excellent. BRAIN: CSF spaces: Ventricles are normal in size and shape. Basal cisterns are patent. No extra-axial fluid collections. Brain: No intracranial hematoma collections, mass, or mass effect. There are hypodensities within the thalami redemonstrated compatible with sequelae of prior infarcts. No abnormal intracranial enhancement. There are periventricular and subcortical white matter hypodensities consistent with mild chronic small vessel ischemic changes. Skull and face: Calvarium and facial bones appear intact, without suspicious lesions. Orbits appear normal. Sinuses: Sinuses and mastoids are clear. HEAD CT ANGIOGRAPHY: Anterior circulation: Intracranial internal carotid arteries are normal in size and appear patent bilaterally. There is atherosclerotic calcification along the petrous and cavernous segments of the internal carotid arteries with mild to moderate multifocal narrowing. The paired anterior cerebral arteries appear patent bilaterally. The anterior communicating artery also appears patent. The middle cerebral arteries appear patent bilaterally. No high-grade stenosis, occlusion, or filling defects. No cerebral aneurysms identified. Posterior circulation: There is a left dominant vertebrobasilar system. A diminutive right vertebral artery demonstrates faint enhancement distally with moderate narrowing secondary to filling defects. This joins with a patent left vertebral artery to form the basilar artery which appears patent throughout its course. The posterior cerebral arteries appears patent bilaterally. No high-grade stenosis, occlusion, or filling defects. No cerebral aneurysms identified. NECK CT ANGIOGRAPHY: Carotid system: The great vessels demonstrate a conventional anatomy as they arise from the aortic arch. The origins of the common carotid arteries appear patent. The common carotid arteries demonstrate normal caliber and courses. There is mild atherosclerotic calcification with minimal narrowing in the carotid bulbs bilaterally. The subsequent extracranial internal carotid arteries demonstrate normal calibers and courses. Posterior circulation: There is apparent occlusion of the proximal right vertebral artery at its origin with subsequent reconstitution of a small right vertebral artery at the level of C2-C3. There are moderate filling defects within the distal right vertebral artery which joins with the left vertebral artery to form the basilar artery. There is a left dominant vertebrobasilar system with a diminutive right vertebral artery. Soft tissues: Visualized neck and upper chest demonstrate multiple prominent mediastinal lymph nodes measuring up to 0.8 cm in short axis. Bones: No suspicious bony lesions. Visualized cervical spine demonstrates fusion of the C3 through C5 vertebral bodies with mild reversal of the cervical lordosis. IMPRESSION: 1. 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 2. A left dominant vertebrobasilar system is present with the left vertebral artery patent along its course. 3. No high-grade stenosis or occlusion of the central intracranial arteries. Xhfo-kn-fehsmucp multifocal narrowing demonstrated along the petrous and cavernous segments of the internal carotid arteries. 4. Minimal narrowing within the carotid bulbs. 5. Hypodensities within the thalami bilaterally suggesting sequelae of prior infarcts. 6. Mildly prominent mediastinal lymph nodes within the visualized chest are nonspecific but likely reactive. Any quantitative measurements of stenosis were performed using NASCET criteria. Dictated by: Artemio Vaz M.D. on 12/20/2020 at 13:37 Approved by: Artemio Vaz M.D. on 12/20/2020 at 13:57 ECG Data Interpretation: Sinus rhythm, rate of 89, HI 144 QRS 94 and QTC of [address] changes. MDM Narrative Medical decision making narrative: Patient comes with symptoms concerning for stroke. Glucose was in the 80s with EMS. He did not have any glucose replacement. On recheck is in the 60s. This was replaced with dextrose 1 amp and patient began have significant improvement of his symptoms. Patient was fed. Patient notes that he did have his insulin for lunch today but had not eaten lunch. Initial head CT is negative, CT angio shows segmental occlusion of proximal right vertebral artery with reconstitution at level C2-3 with subsequent moderate narrowing distally. No other acute changes appreciated. Labs do not show any major changes. Besides hypoglycemia nor does EKG. Patient has not had any new changes to his medications recently. Discharge Plan Departure Patient Disposition: Home Clinical Impression: Hypoglycemia, History of cervical spinal arthrodesis Instructions: DI for Hypoglycemia Activity Restrictions/Additional Instructions: Your glucose on arrival today was in the 60's this is the likely cause of your symptoms which improved shortly after being given dextrose. I suspect the cause of her hypoglycemia as that you received your insulin but were then unable to eat your meal. Your head CT was negative. Your CT angiography does show some occlusion of the proximal right vertebral artery with reconstitution at the C2 through C3 level this would be appropriate to discuss with your physician. Continue your daily medications including your aspirin. Please return for recurrent episodes of hypoglycemia, altered mental status, new weakness, numbness or loss of sensation, difficulty with speech, difficulty with vision, chest pain or shortness of breath, persistent vomiting or other new or concerning symptoms. Prescriptions: No Action atorvastatin 80 MG tablet 80 mg PO BEDTIME Qty: 0 RF: 0 clopidogrel 75 MG tablet 75 mg PO DAILY Qty: 0 RF: 0 levothyroxine 50 MCG tablet 50 mcg PO QPM Qty: 0 RF: 0 metoprolol succinate [Toprol XL] 25 MG tablet extended release 24 hr 12.5 mg PO DAILY Qty: 0 RF: 0 sennosides [senna] 8.6 MG tablet 17.2 mg PO BEDTIME Qty: 0 RF: 0 acetaminophen 325 MG tablet 650 mg PO Q4HP PRN (Reason: Fever Or Pain) Qty: 0 RF: 0 omeprazole 20 MG capsule,delayed release(DR/EC) 20 mg PO DAILY Qty: 0 RF: 0 bisacodyl 10 MG suppository 10 mg HI PRN PRN (Reason: Constipation) Qty: 0 RF: 0 bisacodyl [Fleet Laxative (bisacodyl)] 5 MG tablet,delayed release (DR/EC) 10 mg PO PRN PRN (Reason: no BM x 3 days ) Qty: 0 RF: 0 Maalox Maximum Strength 355 ML suspension 30 ml PO Q4H PRN (Reason: gi upset) Qty: 0 RF: 0 magnesium hydroxide [Milk of Magnesia] 400 mg/5 mL Suspension 30 ml PO PRN PRN (Reason: Constipation) RF: 0 docusate sodium 100 mg Capsule 2 tab PO BID RF: 0 aspirin 325 mg Tablet,Delayed Release (Dr/Ec) 325 mg PO DAILY RF: 0 furosemide 40 mg tablet 40 mg PO DAILY RF: 0 calcium carbonate 600 mg calcium (1,500 mg) Tablet 1,200 mg PO QPM RF: 0 vitamin B complex [B Complex-Vitamin B12] Tablet 1 tab PO QPM RF: 0 mirtazapine 15 mg Tablet 22.5 mg PO BEDTIME RF: 0 fluticasone propionate 50 mcg/actuation [place],Suspension 1 spray INTRANASAL BID RF: 0 cholecalciferol (vitamin D3) 1,000 unit Capsule 1,000 unit PO QPM RF: 0 hydroxyzine pamoate 25 mg Capsule 25 - 50 mg PO Q6H PRN (Reason: pain/spasms) RF: 0 insulin glargine 100 unit/mL (3 mL) Insulin Pen 8 unit SUBCUT BID RF: 0 ondansetron 4 mg Tablet,Disintegrating 4 mg PO Q4H PRN (Reason: Nausea) RF: 0 ammonium lactate 12 % Lotion 1 applic TOPICAL BID PRN (Reason: Dry Skin) RF: 0 guaifenesin [Mucinex] 600 mg Tablet Extended Release 12hr 600 mg PO Q12H RF: 0 cetirizine 10 mg Tablet 10 mg PO DAILY PRN (Reason: allergies) RF: 0 sodium chloride [Saline Mist] 0.65 % Aerosol,[place] 1 spray INTRANASAL Q6H PRN (Reason: Congestion) RF: 0 Glucagon Emergency Kit (human) 1 mg Recon Soln 1 mg IM PRN MDD ` PRN (Reason: blood glucose <60) RF: 0 duloxetine 60 mg capsule,delayed release(DR/EC) 60 mg PO BEDTIME RF: 0 nystatin 100,000 unit/gram Cream 1 applic TOPICAL BID PRN (Reason: yeast) RF: 0 oxycodone [OxyContin] 20 mg Tablet,Oral Only,Ext.Rel.12 Hr 20 mg PO Q8H Qty: 20 RF: 0 clonazepam 0.5 mg tablet 0.75 mg PO Q6H PRN (Reason: Anxiety) Qty: 20 RF: 0 Health Shake 1 ea PO QPM RF: 0 Alcohol Liquor 1 ea PO DAILY PRN (Reason: life enjoyment) RF: 0 dextromethorphan polistirex [Delsym 12 hour] 30 mg/5 mL Suspension,Extended Rel 12 Hr 10 ml PO Q12H PRN (Reason: Cough) RF: 0 ibuprofen 400 mg Tablet 400 mg PO Q4H PRN (Reason: pain) RF: 0 bisacodyl 5 mg Tablet,Delayed Release (Dr/Ec) 5 mg PO PRN PRN (Reason: no BM x 2 days) RF: 0 oxycodone 5 mg tablet 5 mg PO Q4H PRN (Reason: pain) RF: 0 doxycycline hyclate 100 mg capsule 100 mg PO [id number] RF: 0 cefdinir 300 mg capsule 300 mg PO [id number] RF: 0 insulin aspart U-100 [Novolog Flexpen U-100 Insulin] 100 unit/mL insulin pen 100 unit SUBCUT QID RF: 0 baclofen 10 mg tablet 10 mg PO TID RF: 0 artifi.tears(hypromellose)(PF) 0.3 % drops 2 drp EYE-BOTH BID RF: 0 Referrals: Eli Canas ARNP [Primary Care Provider] -
[2020-12-20 15:24] LABS: COVID19 - ADMIT (NP swab/PCR) Negative (Negative)
[2020-12-20 15:32] LABS: UR Morphine/Opiate cutoff 300 Positive (Negative); Ur Creatinine Normal (Normal); Ur Specific Gravity Normal (Normal); Urine Amphetamines Negative (Negative); Urine Barbiturates Negative (Negative); Urine Benzodiazepines Negative (Negative); Urine Cocaine Negative (Negative); Urine MDMA Negative (Negative); Urine Methadone Negative (Negative); Urine Methamphetamines Negative (Negative); Urine Oxycodone Positive (Negative); Urine Phencyclidine Negative (Negative); Urine Tetrahydrocannabinol Positive (Negative); Urine Tricyclic Antidepressant Negative (Negative); Urine pH Normal (Normal)
[2020-12-20 20:22] LABS: Amorphous Sediment Urine 1+; Bacteria Urine Many (>30); RBC Urine 1-5/HPF (0-5/HPF); WBC Urine 5-10/HPF (0-5/HPF)
== END 2020-12-20 19:06 | disposition home or self-care (01) ==
PROVIDERS: Emergency Provider Emergency Medicine; Family Provider Nurse Practitioner Family; PCP Registered Nurse
DX: E11.649 Type 2 diabetes mellitus with hypoglycemia without coma (principal); Z98.1 Arthrodesis status; R11.0 Nausea; Z79.01 Long term (current) use of anticoagulants; Z20.822 Contact with and (suspected) exposure to COVID-19; Z79.4 Long term (current) use of insulin
CPT/HCPCS: 36415; 70450; 70496; 70498; 80048; 80305; 81003; 81015; 82962; 85025; 87077; 87086; 87186; 87635; 93005; 93010; 96360; 96361; 99285; C9803; Q9967

== ENCOUNTER → 2020-12-24 13:39 | Outpatient (CLI) | payer MEDICARE, MEDICAID, SELFPAY ==
[2019-03-02 18:01] VITALS: BMI 27.4
== END ==
PROVIDERS: Family Provider Nurse Practitioner Family; PCP Registered Nurse; Referring Provider Registered Nurse; Visit Provider Family Medicine
DX: T87.89 Other complications of amputation stump (principal); E10.622 Type 1 diabetes mellitus with other skin ulcer; L97.812 Non-pressure chronic ulcer of other part of right lower leg with fat layer exposed; I73.9 Peripheral vascular disease, unspecified; F17.210 Nicotine dependence, cigarettes, uncomplicated
CPT/HCPCS: 97597; 99212; 99213

== ENCOUNTER 2021-01-01 15:41 | Emergency (ER) | payer MEDICARE, MEDICAID, SELFPAY ==
[2019-03-02 18:01] VITALS: BMI 27.4
[2021-01-01 15:36] VITALS: BP 160/88; PULSE 88; RESP 22; TEMP 36.9; O2SAT 98
--- NOTE | 2021-01-01 15:47 | PC.NURSE ---
Pt has indwelling denson catheter, long standing for reported urinary retention. Pt wants catheter out. Is yelling at me in the hallway. Does not want a replacement, wants it discontinued despite risk for urinary retention. Informed that we need the provider to evaluate him and he verbalized understanding.
--- NOTE | 2021-01-01 16:44 | ED.MALEGU ---
HPI - Male Genitourinary General Chief complaint: Urogenital-Male Stated complaint: Catheter pain Time Seen by Provider: 01/01/21 16:42 Source: patient and EMS Mode of arrival: EMS Limitations: no limitations History of Present Illness HPI Narrative: This is a 65-year-old male who comes with complaint of catheter pain. 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 Patient states he has have a catheter in placed for several months. He has had it changed about once monthly. He states that he has not had changed for this month. He noted that the catheter was twisted and causing pain the opening of his penis. He states he tried untwisted himself and that was pulling down words. He asked for assistance from the staff but they told him that the nurse that helps with Guzman catheters on vacation and he was sent here. Patient is on medication adult his prostate. He does follow with a urologist. He is not sure if it is here locally at [facility] or at [facility] for elsewhere. Related Data Home Medications Medication Instructions Recorded Confirmed acetaminophen 325 mg tablet 650 mg PO Q4HP PRN #0 06/29/17 03/07/19 aluminum-mag hydroxide-simethicone 30 ml PO Q4H PRN #0 06/29/17 03/07/19 400 mg-400 mg-40 mg/5 mL oral susp (Maalox Maximum Strength) atorvastatin 80 mg tablet 80 mg PO BEDTIME #0 06/29/17 03/07/19 bisacodyl 10 mg rectal suppository 10 mg AR PRN PRN #0 06/29/17 03/07/19 bisacodyl 5 mg tablet,delayed 10 mg PO PRN PRN #0 06/29/17 03/07/19 release (Fleet Laxative (bisacodyl)) clopidogrel 75 mg tablet 75 mg PO DAILY #0 06/29/17 03/07/19 levothyroxine 50 mcg tablet 50 mcg PO QPM #0 06/29/17 03/07/19 metoprolol succinate 25 mg 12.5 mg PO DAILY #0 06/29/17 03/07/19 tablet,extended release 24 hr (Toprol XL) omeprazole 20 mg capsule,delayed 20 mg PO DAILY #0 06/29/17 03/07/19 release sennosides 8.6 mg tablet (senna) 17.2 mg PO BEDTIME #0 06/29/17 03/07/19 artifi.tears(hypromellose)(PF) 0.3 2 drp EYE-BOTH BID ml 11/25/17 03/07/19 % eye drops baclofen 10 mg tablet 10 mg PO TID 11/25/17 03/07/19 insulin aspart U-100 100 unit/mL 100 unit SUBCUT QID 11/25/17 03/07/19 (3 mL) subcutaneous pen (Novolog Flexpen U-100 Insulin aspart) docusate sodium 100 mg capsule 2 tab PO BID 03/05/18 03/07/19 magnesium hydroxide 400 mg/5 mL 30 ml PO PRN PRN 03/05/18 03/07/19 oral suspension (Milk of Magnesia) ammonium lactate 12 % lotion 1 applic TOPICAL BID PRN 08/13/18 03/07/19 calcium carbonate 600 mg calcium 1,200 mg PO QPM 08/13/18 03/07/19 (1,500 mg) tablet cholecalciferol (vitamin D3) 25 1,000 unit PO QPM 08/13/18 03/07/19 mcg (1,000 unit) capsule fluticasone propionate 50 1 spray INTRANASAL BID 08/13/18 03/07/19 mcg/actuation nasal spray,suspension guaifenesin 600 mg tablet, 600 mg PO Q12H 08/13/18 03/07/19 extended release 12 hr (Mucinex) hydroxyzine pamoate 25 mg capsule 25 - 50 mg PO Q6H PRN 08/13/18 03/07/19 insulin glargine 100 unit/mL (3 8 unit SUBCUT BID 08/13/18 03/07/19 mL) subcutaneous pen mirtazapine 15 mg tablet 22.5 mg PO BEDTIME 08/13/18 03/07/19 ondansetron 4 mg disintegrating 4 mg PO Q4H PRN 08/13/18 03/07/19 tablet vitamin B complex (B 1 tab PO QPM 08/13/18 03/07/19 Complex-Vitamin B12) cetirizine 10 mg tablet 10 mg PO DAILY PRN 01/25/19 03/07/19 sodium chloride 0.65 % nasal spray 1 spray INTRANASAL Q6H PRN 01/25/19 03/07/19 aerosol (Saline Mist) aspirin 325 mg tablet,delayed 325 mg PO DAILY 02/20/19 03/07/19 release furosemide 40 mg tablet 40 mg PO DAILY 02/20/19 03/07/19 duloxetine 60 mg capsule,delayed 60 mg PO BEDTIME 03/02/19 03/07/19 release glucagon (human recombinant) 1 mg 1 mg IM PRN PRN MDD ` 03/02/19 03/07/19 solution for injection (Glucagon Emergency Kit) nystatin 100,000 unit/gram topical 1 applic TOPICAL BID PRN 03/02/19 03/07/19 cream Alcohol Liquor 1 ea PO DAILY PRN 03/07/19 03/07/19 Health Shake 1 ea PO QPM 03/07/19 03/07/19 bisacodyl 5 mg tablet,delayed 5 mg PO PRN PRN 03/07/19 03/07/19 release cefdinir 300 mg capsule 300 mg PO [id number] 03/07/19 03/07/19 dextromethorphan polistirex 30 10 ml PO Q12H PRN 03/07/19 03/07/19 mg/5 mL oral susp ext.release 12hr (Delsym 12 hour) doxycycline hyclate 100 mg capsule 100 mg PO [id number] 03/07/19 03/07/19 ibuprofen 400 mg tablet 400 mg PO Q4H PRN 03/07/19 03/07/19 oxycodone 5 mg tablet 5 mg PO Q4H PRN 03/07/19 03/07/19 Previous Rx's Medication Instructions Recorded clonazepam 0.5 mg tablet 0.75 mg PO Q6H PRN #20 tab 03/05/19 oxycodone 20 mg tablet,crush 20 mg PO Q8H #20 tab 03/05/19 resistant,extended release 12 hr (OxyContin) bacitracin 500 unit/gram topical 1 applic TOPICAL BID #28 g 01/01/21 ointment bacitracin 500 unit/gram topical 1 applic TOPICAL Q12H #28 g 01/01/21 ointment bacitracin zinc 500 unit/gram 1 applic TOPICAL Q12H #28 g 01/01/21 topical ointment fluconazole 150 mg tablet 150 mg PO DAILY #7 tab 01/01/21 (Diflucan) fluconazole 150 mg tablet 150 mg PO DAILY #7 tab 01/01/21 (Diflucan) fluconazole 150 mg tablet 150 mg PO DAILY #7 tab 01/01/21 (Diflucan) lidocaine 5 % topical gel 1 ea TOPICAL QID #10 g 01/01/21 lidocaine 5 % topical gel 1 ea TOPICAL QID PRN 7 Days #30 g 01/01/21 lidocaine 5 % topical gel 1 ea TOPICAL QID PRN 7 Days #30 g 01/01/21 Allergies Allergy/AdvReac Type Severity Reaction Status Date / Time amitriptyline Allergy Verified 09/28/20 01:00 pollen extracts Allergy Verified 09/28/20 01:00 codeine [CODEINE] AdvReac Unknown nausea Verified 09/28/20 01:00 Review of Systems Review of Systems ROS Unobtainable: All systems reviewed & are unremarkable except as noted in HPI and below Patient History Medical History (Updated 01/01/21 @ 17:20 by Lara Acharya DO) C3 spinal cord injury C4 spinal cord injury CVA (cerebral vascular accident) Diabetes Gastroesophageal reflux disease Hyperlipidemia Hypertension Surgical History (Updated 12/20/20 @ 19:06 by Bella Alexander RN) History of carotid endarterectomy History of coronary artery stent placement No pertinent past surgical history Family History Mother Cancer Father Lung disease Hyperlipidemia Brother Lupus Social History household members: caregiver Smoking Status: Current every day smoker alcohol intake: current substance use type: does not use additional social history: He currently resides in He currently resides in [facility]. Smoking Status: Current every day smoker tobacco type: cigarettes alcohol intake frequency: holidays/special occasions only Substance Use Type: does not use Exam Narrative Exam Narrative: GENERAL: Alert and oriented x three, male in mild distress. HEENT: Head normocephalic, atraumatic, EOMI, pupils reactive, face symmetric, moist mucous membranes NECK: Supple, full range of motion CARDIOVASCULAR: Regular rate and rhythm without murmurs, rubs or gallops. RESPIRATORY: Breath sounds equal bilaterally, no wheezes rales or rhonchi. ABDOMEN: Soft, nontender. Normoactive bowel sounds all 4 quadrants. No guarding or rebound, rigidity, no mass : No CVA tenderness. Male: Patient has normal examination except for what appears to be a pressure ulcer in groove at the 12 o'clock position where the urinary catheter is pushing down on has been pulling down on the edge of the penis there is some skin breakdown and discoloration noted on the anterior aspect of the urethral meatus. Patient does have some erythema of the groin at the base of the penis and scrotum with a small amount of white smegma, no penile discharge or lesions otherwise noted, testicles non-tender, cremasteric reflex intact, no inguinal hernias noted. EXTREMITIES: Normal range of motion, no clubbing or edema. Patient has a right BKA. He does have movement of his left lower extremity. NEUROLOGICAL: Cranial nerves II through XII grossly intact. Moving all extremities SKIN: Warm, dry, no petechiae, no rashes or lesions. Initial Vital Signs Initial Vital Signs: Vital Signs Temperature 98.4 F 01/01/21 15:36 Pulse Rate 88 01/01/21 15:36 Respiratory Rate 22 01/01/21 15:36 Blood Pressure 160/88 H 01/01/21 15:36 Pulse Oximetry 98 01/01/21 15:36 Course Orders Ordered: Discontinued Medications Lidocaine HCl (Lidocaine 2% (Glydo) 6 Ml Gel) 6 ml TOP NOW ONE Stop: 01/01/21 17:35 Last Admin: 01/01/21 17:40 Dose: 6 ml Documented by: [email or web address] Vital Signs Vital signs: Vital Signs - 8 hr 01/01/21 15:36 01/01/21 17:50 Temperature 98.4 F Pulse Rate 88 82 Respiratory Rate 22 Blood Pressure 160/88 H 188/87 H Pulse Oximetry 98 98 MDM - Male Genitourinary MDM Narrative Medical decision making narrative: This is a 65-year-old male who appears to have developed a pressure ulcer at the 6 o'clock position of his urethral meatus. There is skin breakdown and discoloration. The catheter was clearly pulling in his deltoid groove. The catheter was adjusted and he had a new opacity or placed on his legs which is more secure and will not allow the catheter to slide. The 1 that he had prior allows it to move. Patient did have some topical lidocaine for pain control and we discussed using bacitracin to the affected area twice daily to assist with healing and decrease friction. Patient and I discussed he also appears to have some changes consistent with the yeast infection on the outside although this does not appear to be actively infected at the opening of the urethral meatus and plan to start him on a course of Diflucan. All questions were answered. At this time I do not think that patient would benefit from having his catheter replaced or removed as he has known chronic urinary retention and would be quite painful at this time to urinate without a catheter. Discharge Plan Departure Patient Disposition: Home Clinical Impression: Urethral meatus pain, Indwelling urinary catheter present, Pressure ulcer caused by device Instructions: How to Care for Your Guzman Catheter -- Male Activity Restrictions/Additional Instructions: Your urinary catheter is draining appropriately but appears to have been pulled down words and was putting pressure on the opening of the urethral meatus. We adjusted the positioning of your catheter with a new fascination device. I would recommend using viscous lidocaine 4 times daily as needed for pain x7 days. I would alter this with topical bacitracin to the wound at the 12 o'clock position of your urethral meatus and apply this twice daily, continue this until area has healed. You do appear to have some surrounding yeast in the groin although not at the opening of the penis and I would recommend daily oral antifungal. Prescription was initially sent to [facility] in [place] then changed to [facility] pharmacy in [place] Please return if you are having fevers, worsening breakdown, if you or catheter is not draining, if you are having new discharge, warmth, redness or other new or concerning symptoms. Prescriptions: New bacitracin 500 unit/gram ointment 1 applic topical BID Qty: 28 RF: 0 fluconazole [Diflucan] 150 mg tablet 150 mg PO DAILY Qty: 7 RF: 0 lidocaine 5 % gel 1 ea topical QID Qty: 10 RF: 0 bacitracin 500 unit/gram ointment 1 applic topical Q12H Qty: 28 RF: 0 lidocaine 5 % gel 1 ea topical QID PRN (Reason: pain) 7 Days Qty: 30 RF: 0 fluconazole [Diflucan] 150 mg tablet 150 mg PO DAILY Qty: 7 RF: 0 bacitracin zinc 500 unit/gram ointment 1 applic topical Q12H Qty: 28 RF: 0 lidocaine 5 % gel 1 ea topical QID PRN (Reason: pain) 7 Days Qty: 30 RF: 0 fluconazole [Diflucan] 150 mg tablet 150 mg PO DAILY Qty: 7 RF: 0 No Action atorvastatin 80 MG tablet 80 mg PO BEDTIME Qty: 0 RF: 0 clopidogrel 75 MG tablet 75 mg PO DAILY Qty: 0 RF: 0 levothyroxine 50 MCG tablet 50 mcg PO QPM Qty: 0 RF: 0 metoprolol succinate [Toprol XL] 25 MG tablet extended release 24 hr 12.5 mg PO DAILY Qty: 0 RF: 0 sennosides [senna] 8.6 MG tablet 17.2 mg PO BEDTIME Qty: 0 RF: 0 acetaminophen 325 MG tablet 650 mg PO Q4HP PRN (Reason: Fever Or Pain) Qty: 0 RF: 0 omeprazole 20 MG capsule,delayed release(DR/EC) 20 mg PO DAILY Qty: 0 RF: 0 bisacodyl 10 MG suppository 10 mg AR PRN PRN (Reason: Constipation) Qty: 0 RF: 0 bisacodyl [Fleet Laxative (bisacodyl)] 5 MG tablet,delayed release (DR/EC) 10 mg PO PRN PRN (Reason: no BM x 3 days ) Qty: 0 RF: 0 Maalox Maximum Strength 355 ML suspension 30 ml PO Q4H PRN (Reason: gi upset) Qty: 0 RF: 0 magnesium hydroxide [Milk of Magnesia] 400 mg/5 mL Suspension 30 ml PO PRN PRN (Reason: Constipation) RF: 0 docusate sodium 100 mg Capsule 2 tab PO BID RF: 0 aspirin 325 mg Tablet,Delayed Release (Dr/Ec) 325 mg PO DAILY RF: 0 furosemide 40 mg tablet 40 mg PO DAILY RF: 0 calcium carbonate 600 mg calcium (1,500 mg) Tablet 1,200 mg PO QPM RF: 0 vitamin B complex [B Complex-Vitamin B12] Tablet 1 tab PO QPM RF: 0 mirtazapine 15 mg Tablet 22.5 mg PO BEDTIME RF: 0 fluticasone propionate 50 mcg/actuation [place],Suspension 1 spray INTRANASAL BID RF: 0 cholecalciferol (vitamin D3) 1,000 unit Capsule 1,000 unit PO QPM RF: 0 hydroxyzine pamoate 25 mg Capsule 25 - 50 mg PO Q6H PRN (Reason: pain/spasms) RF: 0 insulin glargine 100 unit/mL (3 mL) Insulin Pen 8 unit SUBCUT BID RF: 0 ondansetron 4 mg Tablet,Disintegrating 4 mg PO Q4H PRN (Reason: Nausea) RF: 0 ammonium lactate 12 % Lotion 1 applic TOPICAL BID PRN (Reason: Dry Skin) RF: 0 guaifenesin [Mucinex] 600 mg Tablet Extended Release 12hr 600 mg PO Q12H RF: 0 cetirizine 10 mg Tablet 10 mg PO DAILY PRN (Reason: allergies) RF: 0 sodium chloride [Saline Mist] 0.65 % Aerosol,[place] 1 spray INTRANASAL Q6H PRN (Reason: Congestion) RF: 0 Glucagon Emergency Kit (human) 1 mg Recon Soln 1 mg IM PRN MDD ` PRN (Reason: blood glucose <60) RF: 0 duloxetine 60 mg capsule,delayed release(DR/EC) 60 mg PO BEDTIME RF: 0 nystatin 100,000 unit/gram Cream 1 applic TOPICAL BID PRN (Reason: yeast) RF: 0 oxycodone [OxyContin] 20 mg Tablet,Oral Only,Ext.Rel.12 Hr 20 mg PO Q8H Qty: 20 RF: 0 clonazepam 0.5 mg tablet 0.75 mg PO Q6H PRN (Reason: Anxiety) Qty: 20 RF: 0 Health Shake 1 ea PO QPM RF: 0 Alcohol Liquor 1 ea PO DAILY PRN (Reason: life enjoyment) RF: 0 dextromethorphan polistirex [Delsym 12 hour] 30 mg/5 mL Suspension,Extended Rel 12 Hr 10 ml PO Q12H PRN (Reason: Cough) RF: 0 ibuprofen 400 mg Tablet 400 mg PO Q4H PRN (Reason: pain) RF: 0 bisacodyl 5 mg Tablet,Delayed Release (Dr/Ec) 5 mg PO PRN PRN (Reason: no BM x 2 days) RF: 0 oxycodone 5 mg tablet 5 mg PO Q4H PRN (Reason: pain) RF: 0 doxycycline hyclate 100 mg capsule 100 mg PO [id number] RF: 0 cefdinir 300 mg capsule 300 mg PO [id number] RF: 0 insulin aspart U-100 [Novolog Flexpen U-100 Insulin] 100 unit/mL insulin pen 100 unit SUBCUT QID RF: 0 baclofen 10 mg tablet 10 mg PO TID RF: 0 artifi.tears(hypromellose)(PF) 0.3 % drops 2 drp EYE-BOTH BID RF: 0 Referrals: Eli Canas ARNP [Primary Care Provider] -
--- NOTE | 2021-01-01 17:16 | PC.NURSE ---
upon exam found breakdown at 6 oclock area of penis from where catheter has caused pressure ulcer. Catheter moved to area where it would not pull or cause additional pressure.
[2021-01-01] MEDS: LIDOCAINE 2% (GLYDO) 6 ML GEL TOP (17:40)
[2021-01-01 17:50] VITALS: BP 188/87; PULSE 82; O2SAT 98
== END 2021-01-01 18:05 | disposition home or self-care (01) ==
PROVIDERS: Emergency Provider Emergency Medicine; Family Provider Nurse Practitioner Family; PCP Registered Nurse
DX: L89.899 Pressure ulcer of other site, unspecified stage (principal); T83.84XA Pain due to genitourinary prosthetic devices, implants and grafts, initial encounter; T83.028A Displacement of other urinary catheter, initial encounter
CPT/HCPCS: 99282

== ENCOUNTER → 2021-01-07 13:17 | Outpatient (CLI) | payer MEDICARE, MEDICAID, SELFPAY ==
[2019-03-02 18:01] VITALS: BMI 27.4
== END ==
PROVIDERS: Family Provider Nurse Practitioner Family; PCP Registered Nurse; Referring Provider Registered Nurse; Visit Provider Family Medicine
DX: E10.622 Type 1 diabetes mellitus with other skin ulcer (principal); L97.812 Non-pressure chronic ulcer of other part of right lower leg with fat layer exposed; L97.818 Non-pressure chronic ulcer of other part of right lower leg with other specified severity; Z89.511 Acquired absence of right leg below knee; I73.9 Peripheral vascular disease, unspecified
CPT/HCPCS: 99213; 99214

== ENCOUNTER → 2021-01-21 13:23 | Outpatient (CLI) | payer MEDICARE, MEDICAID, SELFPAY ==
[2019-03-02 18:01] VITALS: BMI 27.4
== END ==
PROVIDERS: Family Provider Nurse Practitioner Family; PCP Registered Nurse; Referring Provider Registered Nurse; Visit Provider Family Medicine
DX: E10.622 Type 1 diabetes mellitus with other skin ulcer (principal); L97.812 Non-pressure chronic ulcer of other part of right lower leg with fat layer exposed; L97.818 Non-pressure chronic ulcer of other part of right lower leg with other specified severity; Z89.511 Acquired absence of right leg below knee; I73.9 Peripheral vascular disease, unspecified
CPT/HCPCS: 99213; 99214

== ENCOUNTER → 2021-02-05 10:57 | Outpatient (CLI) | payer MEDICARE, MEDICAID, SELFPAY ==
[2019-03-02 18:01] VITALS: BMI 27.4
== END ==
PROVIDERS: Family Provider Nurse Practitioner Family; PCP Registered Nurse; Referring Provider Registered Nurse; Visit Provider Family Medicine
DX: E10.622 Type 1 diabetes mellitus with other skin ulcer (principal); L97.812 Non-pressure chronic ulcer of other part of right lower leg with fat layer exposed; L97.818 Non-pressure chronic ulcer of other part of right lower leg with other specified severity; Z89.511 Acquired absence of right leg below knee; I73.9 Peripheral vascular disease, unspecified
CPT/HCPCS: 99213; 99214

== ENCOUNTER → 2021-02-07 12:12 | Outpatient (ROUT) | payer MEDICARE, MEDICAID, SELFPAY ==
[2019-03-02 18:01] VITALS: BMI 27.4
[2021-02-07 13:32] LABS: COVID-19 CEPHEID PCR (VTM/NP) Negative (Negative)
== END ==
PROVIDERS: Family Provider Nurse Practitioner Family; PCP Registered Nurse; Visit Provider Surgery Vascular Surgery
DX: Z20.822 Contact with and (suspected) exposure to COVID-19 (principal); Z01.812 Encounter for preprocedural laboratory examination
CPT/HCPCS: U0003

== ENCOUNTER 2021-02-09 16:18 | Emergency (ER) | payer MEDICARE, MEDICAID, SELFPAY ==
[2019-03-02 18:01] VITALS: BMI 27.4
[2021-02-09] VITALS (8 sets, daily range): BP systolic 87–140; BP diastolic 54–71; PULSE 73–82; RESP 18; TEMP 36.1; O2SAT 95–100
--- NOTE | 2021-02-09 16:30 | ED_ITS ---
HPI - General Adult General Chief complaint: Diabetic Problem Stated complaint: Hypogylcemia Time Seen by Provider: 02/09/21 16:20 Source: patient and EMS Mode of arrival: EMS History of Present Illness HPI narrative: Patient is a 65-year-old male who is brought in by EMS for evaluation of low blood sugar. He is an insulin-dependent diabetic. Lives at a local care facility. He states that he dosed himself with insulin this morning per is blood glucose level at the time. There was some concern that maybe he did not eat lunch afterwards. He told me that he fell asleep during lunch. When EMS arrived blood sugar was in the 30s. He received glucose IV. She reported by EMS his blood sugar was than above 200. He is alert oriented. Does have some minor abdominal tenderness which is not new. He states that even if he did not eat lunch his blood sugar should not have dropped as low as what I did. Related Data Home Medications Medication Instructions Recorded Confirmed acetaminophen 325 mg tablet 650 mg PO Q4HP PRN #0 06/29/17 03/07/19 aluminum-mag hydroxide-simethicone 30 ml PO Q4H PRN #0 06/29/17 03/07/19 400 mg-400 mg-40 mg/5 mL oral susp (Maalox Maximum Strength) atorvastatin 80 mg tablet 80 mg PO BEDTIME #0 06/29/17 03/07/19 bisacodyl 10 mg rectal suppository 10 mg [place] PRN PRN #0 06/29/17 03/07/19 bisacodyl 5 mg tablet,delayed 10 mg PO PRN PRN #0 06/29/17 03/07/19 release (Fleet Laxative (bisacodyl)) clopidogrel 75 mg tablet 75 mg PO DAILY #0 06/29/17 03/07/19 levothyroxine 50 mcg tablet 50 mcg PO QPM #0 06/29/17 03/07/19 metoprolol succinate 25 mg 12.5 mg PO DAILY #0 06/29/17 03/07/19 tablet,extended release 24 hr (Toprol XL) omeprazole 20 mg capsule,delayed 20 mg PO DAILY #0 06/29/17 03/07/19 release sennosides 8.6 mg tablet (senna) 17.2 mg PO BEDTIME #0 06/29/17 03/07/19 artifi.tears(hypromellose)(PF) 0.3 2 drp EYE-BOTH BID ml 11/25/17 03/07/19 % eye drops baclofen 10 mg tablet 10 mg PO TID 11/25/17 03/07/19 insulin aspart U-100 100 unit/mL 100 unit SUBCUT QID 11/25/17 03/07/19 (3 mL) subcutaneous pen (Novolog Flexpen U-100 Insulin aspart) docusate sodium 100 mg capsule 2 tab PO BID 03/05/18 03/07/19 magnesium hydroxide 400 mg/5 mL 30 ml PO PRN PRN 03/05/18 03/07/19 oral suspension (Milk of Magnesia) ammonium lactate 12 % lotion 1 applic TOPICAL BID PRN 08/13/18 03/07/19 calcium carbonate 600 mg calcium 1,200 mg PO QPM 08/13/18 03/07/19 (1,500 mg) tablet cholecalciferol (vitamin D3) 25 1,000 unit PO QPM 08/13/18 03/07/19 mcg (1,000 unit) capsule fluticasone propionate 50 1 spray INTRANASAL BID 08/13/18 03/07/19 mcg/actuation nasal spray,suspension guaifenesin 600 mg tablet, 600 mg PO Q12H 08/13/18 03/07/19 extended release 12 hr (Mucinex) hydroxyzine pamoate 25 mg capsule 25 - 50 mg PO Q6H PRN 08/13/18 03/07/19 insulin glargine 100 unit/mL (3 8 unit SUBCUT BID 08/13/18 03/07/19 mL) subcutaneous pen mirtazapine 15 mg tablet 22.5 mg PO BEDTIME 08/13/18 03/07/19 ondansetron 4 mg disintegrating 4 mg PO Q4H PRN 08/13/18 03/07/19 tablet vitamin B complex (B 1 tab PO QPM 08/13/18 03/07/19 Complex-Vitamin B12) cetirizine 10 mg tablet 10 mg PO DAILY PRN 01/25/19 03/07/19 sodium chloride 0.65 % nasal spray 1 spray INTRANASAL Q6H PRN 01/25/19 03/07/19 aerosol (Saline Mist) aspirin 325 mg tablet,delayed 325 mg PO DAILY 02/20/19 03/07/19 release furosemide 40 mg tablet 40 mg PO DAILY 02/20/19 03/07/19 duloxetine 60 mg capsule,delayed 60 mg PO BEDTIME 03/02/19 03/07/19 release glucagon (human recombinant) 1 mg 1 mg IM PRN PRN MDD ` 03/02/19 03/07/19 solution for injection (Glucagon Emergency Kit) nystatin 100,000 unit/gram topical 1 applic TOPICAL BID PRN 03/02/19 03/07/19 cream Alcohol Liquor 1 ea PO DAILY PRN 03/07/19 03/07/19 Health Shake 1 ea PO QPM 03/07/19 03/07/19 bisacodyl 5 mg tablet,delayed 5 mg PO PRN PRN 03/07/19 03/07/19 release cefdinir 300 mg capsule 300 mg PO [id number] 03/07/19 03/07/19 dextromethorphan polistirex 30 10 ml PO Q12H PRN 03/07/19 03/07/19 mg/5 mL oral susp ext.release 12hr (Delsym 12 hour) doxycycline hyclate 100 mg capsule 100 mg PO [id number] 03/07/19 03/07/19 ibuprofen 400 mg tablet 400 mg PO Q4H PRN 03/07/19 03/07/19 oxycodone 5 mg tablet 5 mg PO Q4H PRN 03/07/19 03/07/19 Previous Rx's Medication Instructions Recorded clonazepam 0.5 mg tablet 0.75 mg PO Q6H PRN #20 tab 03/05/19 oxycodone 20 mg tablet,crush 20 mg PO Q8H #20 tab 03/05/19 resistant,extended release 12 hr (OxyContin) bacitracin 500 unit/gram topical 1 applic TOPICAL BID #28 g 01/01/21 ointment bacitracin 500 unit/gram topical 1 applic TOPICAL Q12H #28 g 01/01/21 ointment bacitracin zinc 500 unit/gram 1 applic TOPICAL Q12H #28 g 01/01/21 topical ointment fluconazole 150 mg tablet 150 mg PO DAILY #7 tab 01/01/21 (Diflucan) fluconazole 150 mg tablet 150 mg PO DAILY #7 tab 01/01/21 (Diflucan) fluconazole 150 mg tablet 150 mg PO DAILY #7 tab 01/01/21 (Diflucan) lidocaine 5 % topical gel 1 ea TOPICAL QID #10 g 01/01/21 Allergies Allergy/AdvReac Type Severity Reaction Status Date / Time amitriptyline Allergy Verified 09/28/20 01:00 pollen extracts Allergy Verified 09/28/20 01:00 codeine [CODEINE] AdvReac Unknown nausea Verified 09/28/20 01:00 Review of Systems Constitutional Constitutional: Denies headache(s) ENT Ears, Nose, Mouth, and Throat: Denies headache(s) Cardiovascular Cardiovascular: Denies chest pain and Denies dyspnea Respiratory Respiratory: Denies dyspnea Gastrointestinal Gastrointestinal: Reports abdominal pain, Denies nausea and Denies vomiting Musculoskeletal Musculoskeletal: Denies back pain Integumentary/Breasts Skin/Breast: Reports system reviewed and no additional complaints, except as do cumented Neurologic Neurologic: Denies headache(s) Hematologic/Lymphatic On Anticoagulants: No Allergic/Immunologic Allergic/Immunologic: Reports system reviewed and no additional complaints, except as documented Patient History Medical History (Updated 02/09/21 @ 18:14 by Taye Lund DO) C3 spinal cord injury C4 spinal cord injury CVA (cerebral vascular accident) Diabetes Gastroesophageal reflux disease Hyperlipidemia Hypertension Surgical History (Updated 12/20/20 @ 19:06 by Bella Alexander RN) History of carotid endarterectomy History of coronary artery stent placement No pertinent past surgical history Family History Mother Cancer Father Lung disease Hyperlipidemia Brother Lupus Social History household members: caregiver Smoking Status: Current every day smoker alcohol intake: current substance use type: does not use additional social history: He currently resides in He currently resides in [facility]. Smoking Status: Current every day smoker tobacco type: cigarettes alcohol intake frequency: holidays/special occasions only Substance Use Type: does not use Exam Initial Vital Signs Initial Vital Signs: Vital Signs Temperature 97 F L 02/09/21 16:20 Pulse Rate 80 02/09/21 16:20 Respiratory Rate 18 02/09/21 16:20 Blood Pressure 95/54 L 02/09/21 16:20 Pulse Oximetry 96 02/09/21 16:20 Const General: cooperative and comfortable HENMT Head: normal to inspection and normocephalic Chest Chest: normal inspection of the chest Resp Effort & Inspection: normal respiratory effort Auscultation: clear to auscultation bilaterally Cardio Rate: regular rate Rhythm: regular rhythm GI Inspection: normal to inspection Palpation: soft, No firm, No guarding and No tender Skin General: no rashes or lesions noted Neuro General: patient alert, patient awake, patient oriented x3 and moves all extremities Extrem Other: Patient with a right [id number] amputation. Psych Appearance: grossly normal and well kempt Course Orders Ordered: ED Orders 02/09/21 16:25 Basic Metabolic Panel Stat Complete Blood Count AUTO DIFF Stat Ketones (Beta-Hydroxybutyrate) Stat Magnesium Stat Phosphorous Stat Vital Signs Vital signs: Vital Signs - 8 hr 02/09/21 16:20 02/09/21 16:31 02/09/21 17:00 Temperature 97 F L Pulse Rate 80 78 78 Respiratory Rate 18 Blood Pressure 95/54 L 87/54 L Pulse Oximetry 96 96 95 02/09/21 17:01 02/09/21 17:30 Temperature Pulse Rate 77 73 Respiratory Rate 18 Blood Pressure 88/54 L 98/56 L Pulse Oximetry 95 95 Medical Decision Making Lab Data Lab results reviewed: Yes I reviewed the patient's lab results. Result diagrams: 02/09/21 16:25 02/09/21 16:25 Labs: Lab Results 02/09/21 02/09/21 Range/Units 16:25 16:25 WBC 9.1 (4.5-11.0) X10^3/uL RBC 4.36 L (4.5-5.9) X10^6/uL Hgb 12.1 L (13.5-17.5) g/dL Hct 36.7 L (41-53) % MCV 84.4 (80-100) fL MCH 27.9 (26-34) PG MCHC 33.0 (30-36) % RDW 14.5 (11.6-14.8) % Plt Count 396 (150-400) X10^3/uL Neut % (Auto) 72.9 (50-75) % Lymph % (Auto) 13.3 L (25-40) % [place] % (Auto) 6.8 (3-14) % Eos % (Auto) 6.1 H (2-4) % Baso % (Auto) 0.9 (0-2) % Neut # (Auto) 6600 (5811-6567) /uL Lymph # (Auto) 1200 (5612-7566) /uL [place] # (Auto) 600 (0-900) /uL Eos # (Auto) 600 H (0-450) /uL Baso # (Auto) 100 (0-100) /uL Sodium 139 (137-145) mmol/L Potassium 3.0 L (3.4-5.1) mmol/L Chloride 100 (98-107) mmol/L Carbon Dioxide 33 H (22-32) mmol/L BUN 15 (9-20) mg/dL Creatinine 0.72 (0.66-1.25) mg/dL Estimated GFR > 60.0 (>60) mL/min BUN/Creatinine Ratio 20.8 (6-22) Glucose 129 H (80-110) mg/dL Calcium 8.8 (8.4-10.2) mg/dL Phosphorus 3.5 (2.3-3.7) mg/dL Magnesium 1.8 (1.6-2.3) mg/dL Ketones 0.12 (<0.27) mmol/L Point of Care Testing Glucose POC 129 Point of care testing: Point of Care Testing Glucose POC 129 MDM Narrative Medical decision making narrative: Patient's labs are unremarkable. Not in DKA. Initially blood sugar started to decrease however he was given food to eat and it continues to remain elevated. I suspect that he just overdosed himself on the insulin and then did not eat lunch. No further workup needed emergency department. Given return precautions and follow-up instructions expressed understanding and agreement. Discharge Plan Departure Patient Disposition: Home Clinical Impression: Hypoglycemia Instructions: DI for Hypoglycemia Activity Restrictions/Additional Instructions: I recommend that you continue to take all of your medications as directed. Contact your primary doctor for follow-up. Return to the emergency department for any new or worsening symptoms Prescriptions: No Action atorvastatin 80 MG tablet 80 mg PO BEDTIME Qty: 0 RF: 0 clopidogrel 75 MG tablet 75 mg PO DAILY Qty: 0 RF: 0 levothyroxine 50 MCG tablet 50 mcg PO QPM Qty: 0 RF: 0 metoprolol succinate [Toprol XL] 25 MG tablet extended release 24 hr 12.5 mg PO DAILY Qty: 0 RF: 0 sennosides [senna] 8.6 MG tablet 17.2 mg PO BEDTIME Qty: 0 RF: 0 acetaminophen 325 MG tablet 650 mg PO Q4HP PRN (Reason: Fever Or Pain) Qty: 0 RF: 0 omeprazole 20 MG capsule,delayed release(DR/EC) 20 mg PO DAILY Qty: 0 RF: 0 bisacodyl 10 MG suppository 10 mg [place] PRN PRN (Reason: Constipation) Qty: 0 RF: 0 bisacodyl [Fleet Laxative (bisacodyl)] 5 MG tablet,delayed release (DR/EC) 10 mg PO PRN PRN (Reason: no BM x 3 days ) Qty: 0 RF: 0 Maalox Maximum Strength 355 ML suspension 30 ml PO Q4H PRN (Reason: gi upset) Qty: 0 RF: 0 magnesium hydroxide [Milk of Magnesia] 400 mg/5 mL Suspension 30 ml PO PRN PRN (Reason: Constipation) RF: 0 docusate sodium 100 mg Capsule 2 tab PO BID RF: 0 aspirin 325 mg Tablet,Delayed Release (Dr/Ec) 325 mg PO DAILY RF: 0 furosemide 40 mg tablet 40 mg PO DAILY RF: 0 calcium carbonate 600 mg calcium (1,500 mg) Tablet 1,200 mg PO QPM RF: 0 vitamin B complex [B Complex-Vitamin B12] Tablet 1 tab PO QPM RF: 0 mirtazapine 15 mg Tablet 22.5 mg PO BEDTIME RF: 0 fluticasone propionate 50 mcg/actuation [place],Suspension 1 spray INTRANASAL BID RF: 0 cholecalciferol (vitamin D3) 1,000 unit Capsule 1,000 unit PO QPM RF: 0 hydroxyzine pamoate 25 mg Capsule 25 - 50 mg PO Q6H PRN (Reason: pain/spasms) RF: 0 insulin glargine 100 unit/mL (3 mL) Insulin Pen 8 unit SUBCUT BID RF: 0 ondansetron 4 mg Tablet,Disintegrating 4 mg PO Q4H PRN (Reason: Nausea) RF: 0 ammonium lactate 12 % Lotion 1 applic TOPICAL BID PRN (Reason: Dry Skin) RF: 0 guaifenesin [Mucinex] 600 mg Tablet Extended Release 12hr 600 mg PO Q12H RF: 0 cetirizine 10 mg Tablet 10 mg PO DAILY PRN (Reason: allergies) RF: 0 sodium chloride [Saline Mist] 0.65 % Aerosol,[place] 1 spray INTRANASAL Q6H PRN (Reason: Congestion) RF: 0 Glucagon Emergency Kit (human) 1 mg Recon Soln 1 mg IM PRN MDD ` PRN (Reason: blood glucose <60) RF: 0 duloxetine 60 mg capsule,delayed release(DR/EC) 60 mg PO BEDTIME RF: 0 nystatin 100,000 unit/gram Cream 1 applic TOPICAL BID PRN (Reason: yeast) RF: 0 oxycodone [OxyContin] 20 mg Tablet,Oral Only,Ext.Rel.12 Hr 20 mg PO Q8H Qty: 20 RF: 0 clonazepam 0.5 mg tablet 0.75 mg PO Q6H PRN (Reason: Anxiety) Qty: 20 RF: 0 Health Shake 1 ea PO QPM RF: 0 Alcohol Liquor 1 ea PO DAILY PRN (Reason: life enjoyment) RF: 0 dextromethorphan polistirex [Delsym 12 hour] 30 mg/5 mL Suspension,Extended Rel 12 Hr 10 ml PO Q12H PRN (Reason: Cough) RF: 0 ibuprofen 400 mg Tablet 400 mg PO Q4H PRN (Reason: pain) RF: 0 bisacodyl 5 mg Tablet,Delayed Release (Dr/Ec) 5 mg PO PRN PRN (Reason: no BM x 2 days) RF: 0 oxycodone 5 mg tablet 5 mg PO Q4H PRN (Reason: pain) RF: 0 doxycycline hyclate 100 mg capsule 100 mg PO [id number] RF: 0 cefdinir 300 mg capsule 300 mg PO [id number] RF: 0 bacitracin 500 unit/gram ointment 1 applic topical BID Qty: 28 RF: 0 fluconazole [Diflucan] 150 mg tablet 150 mg PO DAILY Qty: 7 RF: 0 lidocaine 5 % gel 1 ea topical QID Qty: 10 RF: 0 bacitracin 500 unit/gram ointment 1 applic topical Q12H Qty: 28 RF: 0 fluconazole [Diflucan] 150 mg tablet 150 mg PO DAILY Qty: 7 RF: 0 bacitracin zinc 500 unit/gram ointment 1 applic topical Q12H Qty: 28 RF: 0 fluconazole [Diflucan] 150 mg tablet 150 mg PO DAILY Qty: 7 RF: 0 insulin aspart U-100 [Novolog Flexpen U-100 Insulin] 100 unit/mL insulin pen 100 unit SUBCUT QID RF: 0 baclofen 10 mg tablet 10 mg PO TID RF: 0 artifi.tears(hypromellose)(PF) 0.3 % drops 2 drp EYE-BOTH BID RF: 0 Referrals: Eli Canas ARNP [Primary Care Provider] -
[2021-02-09 16:40] LABS: Add Manual Diff / Slide Review NO; Basophils Absolute Auto 100 /uL (0-100); Basophils Percent Auto 0.9 % (0-2); Eosinophils Absolute Auto 600 /uL (0-450); Eosinophils Percent Auto 6.1 % (2-4); Hematocrit 36.7 % (41-53); Hemoglobin 12.1 g/dL (13.5-17.5); Lymphocytes Absolute Auto 1200 /uL (1100-4500); Lymphocytes Percent Auto 13.3 % (25-40); Mean Corpuscular Hemoglobin 27.9 PG (26-34); Mean Corpuscular Volume 84.4 fL (80-100); Monocytes Absolute Auto 600 /uL (0-900); Monocytes Percent Auto 6.8 % (3-14); Neutrophils Absolute Auto 6600 /uL (1500-7000); Neutrophils Percent Auto 72.9 % (50-75); Platelet Count 396 X10^3/uL (150-400); Red Blood Cell Count 4.36 X10^6/uL (4.5-5.9); Red Cell Distribution Width 14.5 % (11.6-14.8); White Blood Cell Count 9.1 X10^3/uL (4.5-11.0)
[2021-02-09 16:47] LABS: BUN Creatinine Ratio 20.8 (6-22); Blood Urea Nitrogen 15 mg/dL (9-20); Calcium 8.8 mg/dL (8.4-10.2); Carbon Dioxide 33 mmol/L (22-32); Chloride 100 mmol/L (98-107); Estimated Glomerular Filt Rate > 60.0 mL/min (>60); Glucose 129 mg/dL (80-110); HEMOLYSIS 18 (0-50); Magnesium 1.8 mg/dL (1.6-2.3); Phosphorous 3.5 mg/dL (2.3-3.7); Sodium 139 mmol/L (137-145)
[2021-02-09 16:49] LABS: Ketones (Beta-Hydroxybutyrate) 0.12 mmol/L (<0.27)
--- NOTE | 2021-02-09 18:04 | PC.NURSE ---
Pt provided meal and fluids shortly after arrival, verbal confirmed with Dr. Lund, able to feed self independently.
== END 2021-02-09 19:18 | disposition home or self-care (01) ==
PROVIDERS: Emergency Provider Emergency Medicine; Family Provider Nurse Practitioner Family; PCP Registered Nurse
DX: E11.649 Type 2 diabetes mellitus with hypoglycemia without coma (principal); R10.9 Unspecified abdominal pain
CPT/HCPCS: 80048; 82009; 82962; 83735; 84100; 85025; 99282; 99283

== ENCOUNTER → 2021-02-11 10:46 | Outpatient (ROUT) | payer MEDICARE, MEDICAID, SELFPAY ==
[2019-03-02 18:01] VITALS: BMI 27.4
[2021-02-11 11:26] LABS: Blood Urea Nitrogen 16 mg/dL (9-20); Calcium 9.4 mg/dL (8.4-10.2); Carbon Dioxide 27 mmol/L (22-32); Chloride 97 mmol/L (98-107); Estimated Glomerular Filt Rate > 60.0 mL/min (>60); Glucose 79 mg/dL (80-110); HEMOLYSIS < 15 (0-50); Potassium 3.6 mmol/L (3.4-5.1); Sodium 137 mmol/L (137-145)
[2021-02-11 11:28] LABS: Hemoglobin A1C% w Est Avg Glu 6.9 % (4.0-6.0)
[2021-02-11 11:37] LABS: Prealbumin 22.2 mg/dL (17.6-36.0)
== END ==
PROVIDERS: Family Provider Nurse Practitioner Family; PCP Registered Nurse; Visit Provider Family Medicine
DX: E10.9 Type 1 diabetes mellitus without complications (principal); E87.6 Hypokalemia
CPT/HCPCS: 80048; 83036; 84134

== ENCOUNTER → 2021-02-14 13:15 | Outpatient (CLI) | payer MEDICARE, MEDICAID, SELFPAY ==
[2019-03-02 18:01] VITALS: BMI 27.4
== END ==
PROVIDERS: Family Provider Nurse Practitioner Family; PCP Registered Nurse; Referring Provider Registered Nurse; Visit Provider Nurse Practitioner Family
DX: E10.622 Type 1 diabetes mellitus with other skin ulcer (principal); L97.812 Non-pressure chronic ulcer of other part of right lower leg with fat layer exposed; L97.818 Non-pressure chronic ulcer of other part of right lower leg with other specified severity; Z89.511 Acquired absence of right leg below knee; I73.9 Peripheral vascular disease, unspecified; L08.9 Local infection of the skin and subcutaneous tissue, unspecified
CPT/HCPCS: 11042; 87070; 87075; 87077; 87147; 87186; 87205; 97597; 99214

== ENCOUNTER → 2021-02-19 08:42 | Outpatient (CLI) | payer MEDICARE, MEDICAID, SELFPAY ==
[2019-03-02 18:01] VITALS: BMI 27.4
== END ==
PROVIDERS: Family Provider Nurse Practitioner Family; PCP Registered Nurse; Referring Provider Registered Nurse; Visit Provider Family Medicine
DX: E10.622 Type 1 diabetes mellitus with other skin ulcer (principal); L97.812 Non-pressure chronic ulcer of other part of right lower leg with fat layer exposed; L97.818 Non-pressure chronic ulcer of other part of right lower leg with other specified severity; Z89.511 Acquired absence of right leg below knee; I73.9 Peripheral vascular disease, unspecified; B95.7 Other staphylococcus as the cause of diseases classified elsewhere
CPT/HCPCS: 11042; 87070; 87077; 87186; 87205; 99214

== ENCOUNTER → 2021-02-26 11:02 | Outpatient (CLI) | payer MEDICARE, MEDICAID, SELFPAY ==
[2019-03-02 18:01] VITALS: BMI 27.4
== END ==
PROVIDERS: Family Provider Nurse Practitioner Family; PCP Registered Nurse; Referring Provider Registered Nurse; Visit Provider Family Medicine
DX: E10.622 Type 1 diabetes mellitus with other skin ulcer (principal); L97.812 Non-pressure chronic ulcer of other part of right lower leg with fat layer exposed; Z89.511 Acquired absence of right leg below knee; I73.9 Peripheral vascular disease, unspecified; L08.9 Local infection of the skin and subcutaneous tissue, unspecified; B95.7 Other staphylococcus as the cause of diseases classified elsewhere
CPT/HCPCS: 11042; 99214

== ENCOUNTER → 2021-03-05 13:02 | Outpatient (CLI) | payer MEDICARE, MEDICAID, SELFPAY ==
[2019-03-02 18:01] VITALS: BMI 27.4
== END ==
PROVIDERS: Family Provider Nurse Practitioner Family; PCP Registered Nurse; Referring Provider Registered Nurse; Visit Provider Family Medicine
DX: I96 Gangrene, not elsewhere classified (principal); T87.89 Other complications of amputation stump; E10.622 Type 1 diabetes mellitus with other skin ulcer; L97.812 Non-pressure chronic ulcer of other part of right lower leg with fat layer exposed; Z89.511 Acquired absence of right leg below knee; I73.9 Peripheral vascular disease, unspecified
CPT/HCPCS: 11042; 93923

== ENCOUNTER → 2021-03-06 08:55 | Outpatient (CLI) | payer MEDICARE, MEDICAID, SELFPAY ==
[2019-03-02 18:01] VITALS: BMI 27.4
== END ==
PROVIDERS: Family Provider Nurse Practitioner Family; PCP Registered Nurse; Referring Provider Registered Nurse; Visit Provider Family Medicine
DX: E10.622 Type 1 diabetes mellitus with other skin ulcer (principal); L97.812 Non-pressure chronic ulcer of other part of right lower leg with fat layer exposed; Z89.511 Acquired absence of right leg below knee; I73.9 Peripheral vascular disease, unspecified; L08.9 Local infection of the skin and subcutaneous tissue, unspecified; B95.7 Other staphylococcus as the cause of diseases classified elsewhere
CPT/HCPCS: 99183; G0277

== ENCOUNTER 2021-03-08 07:33 | Emergency (ER) | payer MEDICARE, MEDICAID, SELFPAY ==
[2019-03-02 18:01] VITALS: BMI 27.4
[2021-03-08] VITALS (15 sets, daily range): BP systolic 123–149; BP diastolic 58–66; PULSE 73–88; RESP 20; TEMP 36.1; O2SAT 92–98
--- NOTE | 2021-03-08 07:44 | ED_ITS ---
HPI - Nausea/Vomiting/Diarrhea General Chief complaint: Nausea/Vomiting/Diarrhea Stated complaint: Nausea and vomiting Time Seen by Provider: 03/08/21 07:43 History of Present Illness HPI Narrative: Patient is a 65-year-old male history of insulin-dependent diabetes, CVA with hemiparesis, C3-C4 spinal cord injury presenting today with 2 days vomiting. He says he is unable to keep anything down. He has some mild abdominal pain. He denies any chest pain. He says sternum sometimes that there is nothing left. Related Data Home Medications Medication Instructions Recorded Confirmed acetaminophen 325 mg tablet 650 mg PO Q4HP PRN #0 06/29/17 03/07/19 aluminum-mag hydroxide-simethicone 30 ml PO Q4H PRN #0 06/29/17 03/07/19 400 mg-400 mg-40 mg/5 mL oral susp (Maalox Maximum Strength) atorvastatin 80 mg tablet 80 mg PO BEDTIME #0 06/29/17 03/07/19 bisacodyl 10 mg rectal suppository 10 mg MO PRN PRN #0 06/29/17 03/07/19 bisacodyl 5 mg tablet,delayed 10 mg PO PRN PRN #0 06/29/17 03/07/19 release (Fleet Laxative (bisacodyl)) clopidogrel 75 mg tablet 75 mg PO DAILY #0 06/29/17 03/07/19 levothyroxine 50 mcg tablet 50 mcg PO QPM #0 06/29/17 03/07/19 metoprolol succinate 25 mg 12.5 mg PO DAILY #0 06/29/17 03/07/19 tablet,extended release 24 hr (Toprol XL) omeprazole 20 mg capsule,delayed 20 mg PO DAILY #0 06/29/17 03/07/19 release sennosides 8.6 mg tablet (senna) 17.2 mg PO BEDTIME #0 06/29/17 03/07/19 artifi.tears(hypromellose)(PF) 0.3 2 drp EYE-BOTH BID ml 11/25/17 03/07/19 % eye drops baclofen 10 mg tablet 10 mg PO TID 11/25/17 03/07/19 insulin aspart U-100 100 unit/mL 100 unit SUBCUT QID 11/25/17 03/07/19 (3 mL) subcutaneous pen (Novolog Flexpen U-100 Insulin aspart) docusate sodium 100 mg capsule 2 tab PO BID 03/05/18 03/07/19 magnesium hydroxide 400 mg/5 mL 30 ml PO PRN PRN 03/05/18 03/07/19 oral suspension (Milk of Magnesia) ammonium lactate 12 % lotion 1 applic TOPICAL BID PRN 08/13/18 03/07/19 calcium carbonate 600 mg calcium 1,200 mg PO QPM 08/13/18 03/07/19 (1,500 mg) tablet cholecalciferol (vitamin D3) 25 1,000 unit PO QPM 08/13/18 03/07/19 mcg (1,000 unit) capsule fluticasone propionate 50 1 spray INTRANASAL BID 08/13/18 03/07/19 mcg/actuation nasal spray,suspension guaifenesin 600 mg tablet, 600 mg PO Q12H 08/13/18 03/07/19 extended release 12 hr (Mucinex) hydroxyzine pamoate 25 mg capsule 25 - 50 mg PO Q6H PRN 08/13/18 03/07/19 insulin glargine 100 unit/mL (3 8 unit SUBCUT BID 08/13/18 03/07/19 mL) subcutaneous pen mirtazapine 15 mg tablet 22.5 mg PO BEDTIME 08/13/18 03/07/19 ondansetron 4 mg disintegrating 4 mg PO Q4H PRN 08/13/18 03/07/19 tablet vitamin B complex (B 1 tab PO QPM 08/13/18 03/07/19 Complex-Vitamin B12) cetirizine 10 mg tablet 10 mg PO DAILY PRN 01/25/19 03/07/19 sodium chloride 0.65 % nasal spray 1 spray INTRANASAL Q6H PRN 01/25/19 03/07/19 aerosol (Saline Mist) aspirin 325 mg tablet,delayed 325 mg PO DAILY 02/20/19 03/07/19 release furosemide 40 mg tablet 40 mg PO DAILY 02/20/19 03/07/19 duloxetine 60 mg capsule,delayed 60 mg PO BEDTIME 03/02/19 03/07/19 release glucagon (human recombinant) 1 mg 1 mg IM PRN PRN MDD ` 03/02/19 03/07/19 solution for injection (Glucagon Emergency Kit) nystatin 100,000 unit/gram topical 1 applic TOPICAL BID PRN 03/02/19 03/07/19 cream Alcohol Liquor 1 ea PO DAILY PRN 03/07/19 03/07/19 Health Shake 1 ea PO QPM 03/07/19 03/07/19 bisacodyl 5 mg tablet,delayed 5 mg PO PRN PRN 03/07/19 03/07/19 release cefdinir 300 mg capsule 300 mg PO [id number] 03/07/19 03/07/19 dextromethorphan polistirex 30 10 ml PO Q12H PRN 03/07/19 03/07/19 mg/5 mL oral susp ext.release 12hr (Delsym 12 hour) doxycycline hyclate 100 mg capsule 100 mg PO [id number] 03/07/19 03/07/19 ibuprofen 400 mg tablet 400 mg PO Q4H PRN 03/07/19 03/07/19 oxycodone 5 mg tablet 5 mg PO Q4H PRN 03/07/19 03/07/19 Previous Rx's Medication Instructions Recorded clonazepam 0.5 mg tablet 0.75 mg PO Q6H PRN #20 tab 03/05/19 oxycodone 20 mg tablet,crush 20 mg PO Q8H #20 tab 03/05/19 resistant,extended release 12 hr (OxyContin) bacitracin 500 unit/gram topical 1 applic TOPICAL BID #28 g 01/01/21 ointment bacitracin 500 unit/gram topical 1 applic TOPICAL Q12H #28 g 01/01/21 ointment bacitracin zinc 500 unit/gram 1 applic TOPICAL Q12H #28 g 01/01/21 topical ointment fluconazole 150 mg tablet 150 mg PO DAILY #7 tab 01/01/21 (Diflucan) fluconazole 150 mg tablet 150 mg PO DAILY #7 tab 01/01/21 (Diflucan) fluconazole 150 mg tablet 150 mg PO DAILY #7 tab 01/01/21 (Diflucan) lidocaine 5 % topical gel 1 ea TOPICAL QID #10 g 01/01/21 metoclopramide HCl 10 mg tablet 10 mg PO Q6H PRN #20 tab 03/08/21 (Reglan) nitrofurantoin 100 mg PO Q12H 7 Days #14 cap 11/06/21 monohydrate/macrocrystals 100 mg capsule (Macrobid) Allergies Allergy/AdvReac Type Severity Reaction Status Date / Time amitriptyline Allergy Verified 03/08/21 09:07 pollen extracts Allergy Verified 03/08/21 09:07 codeine [CODEINE] AdvReac Unknown nausea Verified 03/08/21 09:07 Review of Systems Review of Systems Narrative: GENERAL: Denies chills, fatigue, malaise, fever, sweats, travel HEENT: Denies sinus pain, ear pain, sore throat, difficulty swallowing, neck pain RESPIRATORY: Denies dyspnea, cough, wheezing, hemoptysis, sputum. CARDIOVASCULAR: Denies chest pain, palpitations, orthopnea, edema GASTROINTESTINAL: See HPI : Denies dysuria, frequency, incontinence, hematuria, urinary retention, flank pain. MUSCULOSKELETAL: Denies weakness, joint pain, or bony pain SKIN: No rash, no erythema, no pruritus NEUROLOGIC: Denies weakness, dizziness, headache, numbness, change in speech, confusion PSYCHIATRIC: No concerning psychosocial issues. 12 point review of systems is negative except for those stated above and HPI Patient History Medical History (Updated 03/08/21 @ 11:44 by Alanis Ureña DO) C3 spinal cord injury C4 spinal cord injury CVA (cerebral vascular accident) Diabetes Gastroesophageal reflux disease Hyperlipidemia Hypertension Surgical History (Updated 12/20/20 @ 19:06 by Bella Alexander RN) History of carotid endarterectomy History of coronary artery stent placement No pertinent past surgical history Family History Mother Cancer Father Lung disease Hyperlipidemia Brother Lupus Social History household members: caregiver Smoking Status: Current every day smoker alcohol intake: current substance use type: does not use additional social history: He currently resides in He currently resides in [facility]. Smoking Status: Current every day smoker tobacco type: cigarettes alcohol intake frequency: holidays/special occasions only Substance Use Type: does not use Exam Initial Vital Signs Initial Vital Signs: Vital Signs Pulse Rate 80 03/08/21 07:59 Pulse Oximetry 96 03/08/21 07:59 GENERAL: Alert male actively dry heaving HEENT: Head atraumatic,EOMI, pupils reactive, face symmetric, moist mucous membranes CARDIOVASCULAR: Regular rate and rhythm without murmurs, rubs or gallops. RESPIRATORY: Breath sounds equal bilaterally, no wheezes rales or rhonchi. ABDOMEN: Soft, nontender. Normoactive bowel sounds all 4 quadrants. No guarding or rebound. : No CVA tenderness EXTREMITIES: Normal range of motion, no clubbing or edema. Neurovascularly int act. right BKA NEUROLOGICAL: Alert and oriented x4. SKIN: Warm, dry, no laceration, no petechiae, no rashes or lesions. Course Orders Ordered: ED Orders 03/08/21 07:45 Venous Blood Gas Stat EKG-12 Lead Stat 03/08/21 07:46 XR chest 1V Stat 03/08/21 07:50 Complete Blood Count AUTO DIFF Stat Comprehensive Metabolic Panel Stat Ketones (Beta-Hydroxybutyrate) Stat Lactate (Lactic Acid) Stat Lipase Stat Procalcitonin Stat Troponin & CK Cardiac Panel Stat 03/08/21 08:00 CT abdomen pelvis w con Stat 03/08/21 08:01 COVID19 - ADMIT ([facility]CH[facility] WORKER swab/PCR) Stat 03/08/21 08:30 Blood Culture Stat 03/08/21 08:33 Venous Blood Gas Stat 03/08/21 10:00 Urinalysis and Microscopic Stat Urine Culture Stat Discontinued Medications Sodium Chloride (Normal Saline 0.9%) 1,000 mls @ 1,000 mls/hr IV BOLUS ONE Stop: 03/08/21 08:44 Last Infusion: 03/08/21 10:05 Dose: 0 mls/hr Documented by: Admin: 03/08/21 07:54 Dose: 1,000 mls/hr Documented by: JIM Metoclopramide HCl (Metoclopramide 10 Mg/2 Ml Inj) 10 mg IV NOW ONE Stop: 03/08/21 09:41 Last Admin: 03/08/21 10:03 Dose: 10 mg Documented by: JIM Ondansetron HCl (Ondansetron 4 Mg/2 Ml Inj) 4 mg IV NOW ONE Stop: 03/08/21 07:46 Last Admin: 03/08/21 07:53 Dose: 4 mg Documented by: JIM Pantoprazole Sodium (Pantoprazole 40 Mg Vial) 40 mg IV NOW ONE Stop: 03/08/21 09:41 Last Admin: 03/08/21 10:03 Dose: 40 mg Documented by: JIM Vital Signs Vital signs: Vital Signs - 8 hr 03/08/21 07:59 03/08/21 08:00 03/08/21 08:05 Temperature Pulse Rate 80 79 88 Respiratory Rate Blood Pressure 132/66 Pulse Oximetry 96 96 97 03/08/21 08:20 03/08/21 08:54 03/08/21 09:00 Temperature 96.9 F L Pulse Rate 80 83 83 Respiratory Rate 20 Blood Pressure 132/66 Pulse Oximetry 97 95 92 03/08/21 09:30 03/08/21 10:00 03/08/21 10:30 Temperature Pulse Rate 87 78 77 Respiratory Rate Blood Pressure Pulse Oximetry 94 93 94 03/08/21 10:59 03/08/21 11:00 03/08/21 11:30 Temperature Pulse Rate 74 74 74 Respiratory Rate Blood Pressure 135/62 132/63 123/58 L Pulse Oximetry 94 93 96 03/08/21 12:00 03/08/21 12:01 03/08/21 12:30 Temperature Pulse Rate 73 78 76 Respiratory Rate Blood Pressure 149/63 H 145/64 H Pulse Oximetry 95 96 98 MDM - Nausea/Vomiting/Diarrhea Lab Data Result diagrams: 03/08/21 07:50 03/08/21 07:50 Labs: Lab Results 03/08/21 03/08/21 03/08/21 Range/Units 07:45 07:50 07:50 WBC 10.1 (4.5-11.0) X10^3/uL RBC 4.44 L (4.5-5.9) X10^6/uL Hgb 12.0 L (13.5-17.5) g/dL Hct 36.5 L (41-53) % MCV 82.1 (80-100) fL MCH 27.1 (26-34) PG MCHC 33.0 (30-36) % RDW 14.0 (11.6-14.8) % Plt Count 406 H (150-400) X10^3/uL Neut % (Auto) 64.3 (50-75) % Lymph % (Auto) 20.9 L (25-40) % [place] % (Auto) 7.9 (3-14) % Eos % (Auto) 6.0 H (2-4) % Baso % (Auto) 0.9 (0-2) % Neut # (Auto) 6500 (0857-1298) /uL Lymph # (Auto) 2100 (5391-5912) /uL [place] # (Auto) 800 (0-900) /uL Eos # (Auto) 600 H (0-450) /uL Baso # (Auto) 100 (0-100) /uL VBG pH 7.41 (7.33-7.43) VBG pCO2 50.8 H (45-50) mmHg VBG pO2 37 (35-45) mmHg VBG HCO3 32 H (23-28) mmol/L VBG Total CO2 34 H (24-29) mmol/L VBG O2 Saturation 70 (70-75) % VBG Base Excess 8.0 H (0-4) mmol/L Sodium 137 (137-145) mmol/L Potassium 4.0 (3.4-5.1) mmol/L Chloride 99 (98-107) mmol/L Carbon Dioxide 32 (22-32) mmol/L BUN 12 (9-20) mg/dL Creatinine 0.88 (0.66-1.25) mg/dL Estimated GFR > 60.0 (>60) mL/min BUN/Creatinine Ratio 13.6 (6-22) Glucose 152 H (80-110) mg/dL Lactate (0.7-2.1) mmol/L Calcium 9.2 (8.4-10.2) mg/dL Total Bilirubin 0.4 (0.2-1.3) mg/dL AST 28 (17-59) IU/L ALT 23 (<50) IU/L Alkaline Phosphatase 169 H (38-126) U/L Total Creatine Kinase 46 L (55-170) U/L CK-MB (CK-2) TNP CK-MB (CK-2) Rel Index TNP Troponin I < 0.012 (0.01-0.034) ng/mL Total Protein 7.4 (6.3-8.2) g/dL Albumin 4.2 (3.5-5.0) g/dL Globulin 3.2 (1.7-4.1) g/dL Albumin/Globulin Ratio 1.3 (1.0-2.8) Lipase (23-300) U/L Procalcitonin 0.04 (<0.5) ng/mL Urine Color Urine Appearance Urine pH (4.5-8.0) Ur Specific [place] (1.000-1.035) Urine Protein (Negative) Urine Glucose (UA) (Negative) g/dL Urine Ketones (NEGATIVE) Urine Occult Blood (Negative) Urine Nitrate (Negative) Urine Bilirubin (NEGATIVE) Urine Urobilinogen (0.2) E.U./dL Ur Leukocyte Esterase (NEGATIVE) Urine RBC (0-5/HPF) Urine WBC (0-5/HPF) Amorphous Sediment Urine Bacteria (None) Ur Culture Indicated? Ketones 0.34 H (<0.27) mmol/L SARS-CoV-2 (PCR) (Negative) 03/08/21 03/08/21 03/08/21 Range/Units 07:50 07:50 08:01 WBC (4.5-11.0) X10^3/uL RBC (4.5-5.9) X10^6/uL Hgb (13.5-17.5) g/dL Hct (41-53) % MCV (80-100) fL MCH (26-34) PG MCHC (30-36) % RDW (11.6-14.8) % Plt Count (150-400) X10^3/uL Neut % (Auto) (50-75) % Lymph % (Auto) (25-40) % [place] % (Auto) (3-14) % Eos % (Auto) (2-4) % Baso % (Auto) (0-2) % Neut # (Auto) (8623-6108) /uL Lymph # (Auto) (5598-2784) /uL [place] # (Auto) (0-900) /uL Eos # (Auto) (0-450) /uL Baso # (Auto) (0-100) /uL VBG pH (7.33-7.43) VBG pCO2 (45-50) mmHg VBG pO2 (35-45) mmHg VBG HCO3 (23-28) mmol/L VBG Total CO2 (24-29) mmol/L VBG O2 Saturation (70-75) % VBG Base Excess (0-4) mmol/L Sodium (137-145) mmol/L Potassium (3.4-5.1) mmol/L Chloride (98-107) mmol/L Carbon Dioxide (22-32) mmol/L BUN (9-20) mg/dL Creatinine (0.66-1.25) mg/dL Estimated GFR (>60) mL/min BUN/Creatinine Ratio (6-22) Glucose (80-110) mg/dL Lactate 1.2 (0.7-2.1) mmol/L Calcium (8.4-10.2) mg/dL Total Bilirubin (0.2-1.3) mg/dL AST (17-59) IU/L ALT (<50) IU/L Alkaline Phosphatase (38-126) U/L Total Creatine Kinase (55-170) U/L CK-MB (CK-2) CK-MB (CK-2) Rel Index Troponin I (0.01-0.034) ng/mL Total Protein (6.3-8.2) g/dL Albumin (3.5-5.0) g/dL Globulin (1.7-4.1) g/dL Albumin/Globulin Ratio (1.0-2.8) Lipase 21 L (23-300) U/L Procalcitonin (<0.5) ng/mL Urine Color Urine Appearance Urine pH (4.5-8.0) Ur Specific [place] (1.000-1.035) Urine Protein (Negative) Urine Glucose (UA) (Negative) g/dL Urine Ketones (NEGATIVE) Urine Occult Blood (Negative) Urine Nitrate (Negative) Urine Bilirubin (NEGATIVE) Urine Urobilinogen (0.2) E.U./dL Ur Leukocyte Esterase (NEGATIVE) Urine RBC (0-5/HPF) Urine WBC (0-5/HPF) Amorphous Sediment Urine Bacteria (None) Ur Culture Indicated? Ketones (<0.27) mmol/L SARS-CoV-2 (PCR) Negative (Negative) 03/08/21 03/08/21 Range/Units 08:33 10:00 WBC (4.5-11.0) X10^3/uL RBC (4.5-5.9) X10^6/uL Hgb (13.5-17.5) g/dL Hct (41-53) % MCV (80-100) fL MCH (26-34) PG MCHC (30-36) % RDW (11.6-14.8) % Plt Count (150-400) X10^3/uL Neut % (Auto) (50-75) % Lymph % (Auto) (25-40) % [place] % (Auto) (3-14) % Eos % (Auto) (2-4) % Baso % (Auto) (0-2) % Neut # (Auto) (9800-7652) /uL Lymph # (Auto) (9468-1338) /uL [place] # (Auto) (0-900) /uL Eos # (Auto) (0-450) /uL Baso # (Auto) (0-100) /uL VBG pH 7.39 (7.33-7.43) VBG pCO2 51.6 H (45-50) mmHg VBG pO2 37 (35-45) mmHg VBG HCO3 31 H (23-28) mmol/L VBG Total CO2 33 H (24-29) mmol/L VBG O2 Saturation 68 L (70-75) % VBG Base Excess 6.0 H (0-4) mmol/L Sodium (137-145) mmol/L Potassium (3.4-5.1) mmol/L Chloride (98-107) mmol/L Carbon Dioxide (22-32) mmol/L BUN (9-20) mg/dL Creatinine (0.66-1.25) mg/dL Estimated GFR (>60) mL/min BUN/Creatinine Ratio (6-22) Glucose (80-110) mg/dL Lactate (0.7-2.1) mmol/L Calcium (8.4-10.2) mg/dL Total Bilirubin (0.2-1.3) mg/dL AST (17-59) IU/L ALT (<50) IU/L Alkaline Phosphatase (38-126) U/L Total Creatine Kinase (55-170) U/L CK-MB (CK-2) CK-MB (CK-2) Rel Index Troponin I (0.01-0.034) ng/mL Total Protein (6.3-8.2) g/dL Albumin (3.5-5.0) g/dL Globulin (1.7-4.1) g/dL Albumin/Globulin Ratio (1.0-2.8) Lipase (23-300) U/L Procalcitonin (<0.5) ng/mL Urine Color Yellow Urine Appearance Clear Urine pH 8.0 (4.5-8.0) Ur Specific [place] 1.010 (1.000-1.035) Urine Protein Negative (Negative) Urine Glucose (UA) Negative (Negative) g/dL Urine Ketones Negative (NEGATIVE) Urine Occult Blood Trace-lysed (Negative) Urine Nitrate Positive H (Negative) Urine Bilirubin Negative (NEGATIVE) Urine Urobilinogen 0.2 (0.2) E.U./dL Ur Leukocyte Esterase Negative (NEGATIVE) Urine RBC 1-5/hpf (0-5/HPF) Urine WBC 5-10/hpf H (0-5/HPF) Amorphous Sediment 2+ Urine Bacteria Few (2-10) H (None) Ur Culture Indicated? Specimen cultured Ketones (<0.27) mmol/L SARS-CoV-2 (PCR) (Negative) Point of Care Testing Glucose POC [address] scan - abdomen/pelvis: Radiologist's Impression: PROCEDURE:? CT ABDOMEN PELVIS W CON ? INDICATIONS:? vomiting ab pain, ? TECHNIQUE:? After the administration of IV contrast, axial sections were acquired from the lung bases to the pubic symphysis.? Coronal and sagittal reformats were performed.? For radiation dose reduction, the following was used:? automated exposure control, adjustment of mA and/or kV according to patient size. ? COMPARISON:? None. ? FINDINGS:? Image quality:? Excellent.? ? Lung bases:? Unremarkable.? ? There is a moderate hiatal hernia seen, with thickening of the distal esophagus. Heart:? No significant findings.? Prominent coronary artery calcification is seen. ? ? ABDOMEN: Liver:? Unremarkable.? ? Gallbladder:? Unremarkable.? ? Biliary ducts:? Unremarkable.? ? Pancreas:? The pancreas is atrophic. Spleen:? Unremarkable.? ? Adrenal Glands:? Unremarkable.? ? Kidneys and Ureters:? Unremarkable.? ? ? Stomach and Bowel:? The colon is tortuous and gas-filled, without rory dilatation.? Focal wall thickening is seen involving the sigmoid colon.? Stomach, small bowel loops, and colon are otherwise unremarkable.? There is a normal appendix seen, as on series 2, image 46. Peritoneum:? No abnormal intraperitoneal fluid.? No free air.? ? Ventral Wall:? There is a moderate fat containing periumbilical hernia.? Abdominal Nodes:? No retroperitoneal or mesenteric adenopathy by size criteria.? Vessels:? Aorta and inferior vena cava are normal in size.? Dense atherosclerotic calcification can be seen.? At least 50% narrowing can be seen involving the common iliac arteries. ? PELVIS: Pelvic Organs:? A Guzman catheter is seen, which decompresses the bladder.? Bladder:? Unremarkable.? ? Pelvic Nodes: No enlarged lymph nodes.? Miscellaneous:? Bilateral fat containing inguinal hernias are seen. ? ? ? Bones:? Right proximal femur hardware is seen, with associated streak artifact.? There is a chronic, stable L1 central compression deformity, with 70% loss of height.? Age-appropriate bony degenerative changes are seen.? ? ? IMPRESSION: ? ? There is a moderate hiatal hernia seen.? Distal esophageal wall thickening is seen.? Please correlate with esophagitis.? When clinically appropriate, please consider upper endoscopy for further evaluation. ? The colon is prominent, tortuous, and gas-filled, yet without rory dilatation.? ? Within the sigmoid colon, there is focal wall thickening, which may be simply secondary to peristalsis.? Differential diagnosis includes neoplasm, yet this is considered to be less likely.? ? If not already recently done, please consider follow-up colonoscopy. ? Dense atherosclerotic calcification is seen.? There is at least 50% narrowing seen involving the common iliac arteries.? There is prominent coronary artery calcification. ? Normal appendix. ? ? ? Incidental note is made of: Atrophic pancreas. Guzman catheter Chronic, stable L1 compression deformity. Moderate fat containing periumbilical hernia.? Right proximal femur hardware Bilateral fat containing inguinal hernias Proximal right femur hardware. ? ? Dictated by: Bryan Her M.D. on 03/08/2021 at 8:17 ? ? Chest x-ray: Radiologist's Impression: PROCEDURE:? XR CHEST 1V ? INDICATIONS:? dka, vomiting ? TECHNIQUE:? One view of the chest was acquired.? ? COMPARISON:? [facility], CR, XR CHEST 1V, 09/08/2020, 23:36.? [facility], CR, XR CHEST 2V, 11/08/2019, 9:24.? [facility], CR, XR CHEST 1V, 10/12/2020, 2:29. ? FINDINGS:? ? Surgical changes and devices:? None.? ? Lungs and pleura:? Lungs are clear.? No pleural effusions or pneumothorax.? ? Mediastinum:? The cardiac contours are within normal limits. The aorta demonstrates calcification and tortuosity. ? Bones and chest wall:? No suspicious bony lesions.? Age-appropriate bony degenerative changes are seen.? There is a chronic, unfused right humeral neck fracture. ? Overlying soft tissues appear unremarkable.? ? IMPRESSION:? ? Clear lungs. ? Chronic, unfused right humeral neck fracture. ? ? Dictated by: Bryan Her M.D. on 03/08/2021 at 7:20 ?? ECG Data Interpretation: Normal sinus rhythm rate 82 MO interval 126 QRS [address] changes PVC noted similar to previous EKG MDM Narrative Medical decision making narrative: Patient presents with nausea vomiting. He is not in DKA. A CT shows esophagitis, torturous gas-filled colon and sigmoid colon thickness. He initially did not do well with Zofran and still felt nauseous however after Protonix and Reglan he is tolerating oral fluids. Blood work is overall reassuring no sign of infection. He has a chronic indwelling Guzman catheter positive for nitrates, he is not septic afebrile no leukocytosis negative lactic acid and procalcitonin. Previous urine culture in 12/20/2020 did show Enterococcus that was sensitive to Macrobid. I will start him on this. It may be the cause of his nausea and vomiting. Discharge Plan Departure Patient Disposition: Home Clinical Impression: UTI (urinary tract infection) Qualifiers: Urinary tract infection type: catheter-associated UTI Indwelling urinary catheter type: indwelling urethral catheter Encounter type: initial encounter Qualified Code(s): T83.511A - Infection and inflammatory reaction due to indwelling urethral catheter, initial encounter Instructions: DI for Urinary Tract Infection (UTI) Activity Restrictions/Additional Instructions: *You have been diagnosed with UTI *What to do: At this time her nausea and vomiting is probably from a bladder infection. Will start you on antibiotics to see if it helps. *Continue to take medications as directed--> SENT TO [facility] Macrobid 100 mg twice a day for 7 days Reglan 10 mg every 6 hours if needed for nausea vomiting *Follow up with your primary care provider in 2-3 days *Return to ER if you should have persistent vomiting unable to keep anything down, Fever, confusion or any new, worsening or concerning symptoms Prescriptions: New metoclopramide HCl [Reglan] 10 mg tablet 10 mg PO Q6H PRN (Reason: nausea and vomiting) Qty: 20 RF: 0 nitrofurantoin monohyd/m-cryst [Macrobid] 100 mg capsule 100 mg PO Q12H 7 Days Qty: 14 RF: 0 No Action atorvastatin 80 MG tablet 80 mg PO BEDTIME Qty: 0 RF: 0 clopidogrel 75 MG tablet 75 mg PO DAILY Qty: 0 RF: 0 levothyroxine 50 MCG tablet 50 mcg PO QPM Qty: 0 RF: 0 metoprolol succinate [Toprol XL] 25 MG tablet extended release 24 hr 12.5 mg PO DAILY Qty: 0 RF: 0 sennosides [senna] 8.6 MG tablet 17.2 mg PO BEDTIME Qty: 0 RF: 0 acetaminophen 325 MG tablet 650 mg PO Q4HP PRN (Reason: Fever Or Pain) Qty: 0 RF: 0 omeprazole 20 MG capsule,delayed release(DR/EC) 20 mg PO DAILY Qty: 0 RF: 0 bisacodyl 10 MG suppository 10 mg MO PRN PRN (Reason: Constipation) Qty: 0 RF: 0 bisacodyl [Fleet Laxative (bisacodyl)] 5 MG tablet,delayed release (DR/EC) 10 mg PO PRN PRN (Reason: no BM x 3 days ) Qty: 0 RF: 0 Maalox Maximum Strength 355 ML suspension 30 ml PO Q4H PRN (Reason: gi upset) Qty: 0 RF: 0 magnesium hydroxide [Milk of Magnesia] 400 mg/5 mL Suspension 30 ml PO PRN PRN (Reason: Constipation) RF: 0 docusate sodium 100 mg Capsule 2 tab PO BID RF: 0 aspirin 325 mg Tablet,Delayed Release (Dr/Ec) 325 mg PO DAILY RF: 0 furosemide 40 mg tablet 40 mg PO DAILY RF: 0 calcium carbonate 600 mg calcium (1,500 mg) Tablet 1,200 mg PO QPM RF: 0 vitamin B complex [B Complex-Vitamin B12] Tablet 1 tab PO QPM RF: 0 mirtazapine 15 mg Tablet 22.5 mg PO BEDTIME RF: 0 fluticasone propionate 50 mcg/actuation [place],Suspension 1 spray INTRANASAL BID RF: 0 cholecalciferol (vitamin D3) 1,000 unit Capsule 1,000 unit PO QPM RF: 0 hydroxyzine pamoate 25 mg Capsule 25 - 50 mg PO Q6H PRN (Reason: pain/spasms) RF: 0 insulin glargine 100 unit/mL (3 mL) Insulin Pen 8 unit SUBCUT BID RF: 0 ondansetron 4 mg Tablet,Disintegrating 4 mg PO Q4H PRN (Reason: Nausea) RF: 0 ammonium lactate 12 % Lotion 1 applic TOPICAL BID PRN (Reason: Dry Skin) RF: 0 guaifenesin [Mucinex] 600 mg Tablet Extended Release 12hr 600 mg PO Q12H RF: 0 cetirizine 10 mg Tablet 10 mg PO DAILY PRN (Reason: allergies) RF: 0 sodium chloride [Saline Mist] 0.65 % Aerosol,[place] 1 spray INTRANASAL Q6H PRN (Reason: Congestion) RF: 0 Glucagon Emergency Kit (human) 1 mg Recon Soln 1 mg IM PRN MDD ` PRN (Reason: blood glucose <60) RF: 0 duloxetine 60 mg capsule,delayed release(DR/EC) 60 mg PO BEDTIME RF: 0 nystatin 100,000 unit/gram Cream 1 applic TOPICAL BID PRN (Reason: yeast) RF: 0 oxycodone [OxyContin] 20 mg Tablet,Oral Only,Ext.Rel.12 Hr 20 mg PO Q8H Qty: 20 RF: 0 clonazepam 0.5 mg tablet 0.75 mg PO Q6H PRN (Reason: Anxiety) Qty: 20 RF: 0 Health Shake 1 ea PO QPM RF: 0 Alcohol Liquor 1 ea PO DAILY PRN (Reason: life enjoyment) RF: 0 dextromethorphan polistirex [Delsym 12 hour] 30 mg/5 mL Suspension,Extended Rel 12 Hr 10 ml PO Q12H PRN (Reason: Cough) RF: 0 ibuprofen 400 mg Tablet 400 mg PO Q4H PRN (Reason: pain) RF: 0 bisacodyl 5 mg Tablet,Delayed Release (Dr/Ec) 5 mg PO PRN PRN (Reason: no BM x 2 days) RF: 0 oxycodone 5 mg tablet 5 mg PO Q4H PRN (Reason: pain) RF: 0 doxycycline hyclate 100 mg capsule 100 mg PO [id number] RF: 0 cefdinir 300 mg capsule 300 mg PO [id number] RF: 0 bacitracin 500 unit/gram ointment 1 applic topical BID Qty: 28 RF: 0 fluconazole [Diflucan] 150 mg tablet 150 mg PO DAILY Qty: 7 RF: 0 lidocaine 5 % gel 1 ea topical QID Qty: 10 RF: 0 bacitracin 500 unit/gram ointment 1 applic topical Q12H Qty: 28 RF: 0 fluconazole [Diflucan] 150 mg tablet 150 mg PO DAILY Qty: 7 RF: 0 bacitracin zinc 500 unit/gram ointment 1 applic topical Q12H Qty: 28 RF: 0 fluconazole [Diflucan] 150 mg tablet 150 mg PO DAILY Qty: 7 RF: 0 insulin aspart U-100 [Novolog Flexpen U-100 Insulin] 100 unit/mL insulin pen 100 unit SUBCUT QID RF: 0 baclofen 10 mg tablet 10 mg PO TID RF: 0 artifi.tears(hypromellose)(PF) 0.3 % drops 2 drp EYE-BOTH BID RF: 0 Referrals: Eli Canas ARNP [Primary Care Provider] -
--- NOTE | 2021-03-08 07:46 | DI.RAD.S_ITS ---
PROCEDURE: XR CHEST 1V INDICATIONS: dka, vomiting TECHNIQUE: One view of the chest was acquired. COMPARISON: [facility], CR, XR CHEST 1V, 09/08/2020, 23:36. [facility], CR, XR CHEST 2V, 11/08/2019, 9:24. [facility], CR, XR CHEST 1V, 10/12/2020, 2:29. FINDINGS: Surgical changes and devices: None. Lungs and pleura: Lungs are clear. No pleural effusions or pneumothorax. Mediastinum: The cardiac contours are within normal limits. The aorta demonstrates calcification and tortuosity. Bones and chest wall: No suspicious bony lesions. Age-appropriate bony degenerative changes are seen. There is a chronic, unfused right humeral neck fracture. Overlying soft tissues appear unremarkable. IMPRESSION: Clear lungs. Chronic, unfused right humeral neck fracture. Dictated by: Bryan Her M.D. on 03/08/2021 at 7:20 Approved by: Bryan Her M.D. on 03/08/2021 at 7:21
[2021-03-08] MEDS: ONDANSETRON 4 MG/2 ML INJ IV (07:53)
[2021-03-08] MEDS: SODIUM CHLORIDE 0.9% 1,000 ML 1000 ML IV (07:54)
--- NOTE | 2021-03-08 08:00 | DI.CT.S_ITS ---
PROCEDURE: CT ABDOMEN PELVIS W CON INDICATIONS: vomiting ab pain, TECHNIQUE: After the administration of IV contrast, axial sections were acquired from the lung bases to the pubic symphysis. Coronal and sagittal reformats were performed. For radiation dose reduction, the following was used: automated exposure control, adjustment of mA and/or kV according to patient size. COMPARISON: None. FINDINGS: Image quality: Excellent. Lung bases: Unremarkable. There is a moderate hiatal hernia seen, with thickening of the distal esophagus. Heart: No significant findings. Prominent coronary artery calcification is seen. ABDOMEN: Liver: Unremarkable. Gallbladder: Unremarkable. Biliary ducts: Unremarkable. Pancreas: The pancreas is atrophic. Spleen: Unremarkable. Adrenal Glands: Unremarkable. Kidneys and Ureters: Unremarkable. Stomach and Bowel: The colon is tortuous and gas-filled, without rory dilatation. Focal wall thickening is seen involving the sigmoid colon. Stomach, small bowel loops, and colon are otherwise unremarkable. There is a normal appendix seen, as on series 2, image 46. Peritoneum: No abnormal intraperitoneal fluid. No free air. Ventral Wall: There is a moderate fat containing periumbilical hernia. Abdominal Nodes: No retroperitoneal or mesenteric adenopathy by size criteria. Vessels: Aorta and inferior vena cava are normal in size. Dense atherosclerotic calcification can be seen. At least 50% narrowing can be seen involving the common iliac arteries. PELVIS: Pelvic Organs: A Guzman catheter is seen, which decompresses the bladder. Bladder: Unremarkable. Pelvic Nodes: No enlarged lymph nodes. Miscellaneous: Bilateral fat containing inguinal hernias are seen. Bones: Right proximal femur hardware is seen, with associated streak artifact. There is a chronic, stable L1 central compression deformity, with 70% loss of height. Age-appropriate bony degenerative changes are seen. IMPRESSION: There is a moderate hiatal hernia seen. Distal esophageal wall thickening is seen. Please correlate with esophagitis. When clinically appropriate, please consider upper endoscopy for further evaluation. The colon is prominent, tortuous, and gas-filled, yet without rory dilatation. Within the sigmoid colon, there is focal wall thickening, which may be simply secondary to peristalsis. Differential diagnosis includes neoplasm, yet this is considered to be less likely. If not already recently done, please consider follow-up colonoscopy. Dense atherosclerotic calcification is seen. There is at least 50% narrowing seen involving the common iliac arteries. There is prominent coronary artery calcification. Normal appendix. Incidental note is made of: Atrophic pancreas. Guzman catheter Chronic, stable L1 compression deformity. Moderate fat containing periumbilical hernia. Right proximal femur hardware Bilateral fat containing inguinal hernias Proximal right femur hardware. Dictated by: Bryan Her M.D. on 03/08/2021 at 8:17 Approved by: Bryan Her M.D. on 03/08/2021 at 8:26
[2021-03-08 08:07] LABS: Add Manual Diff / Slide Review NO; Basophils Absolute Auto 100 /uL (0-100); Basophils Percent Auto 0.9 % (0-2); Eosinophils Absolute Auto 600 /uL (0-450); Hematocrit 36.5 % (41-53); Lymphocytes Absolute Auto 2100 /uL (1100-4500); Lymphocytes Percent Auto 20.9 % (25-40); Mean Corpuscular Hemoglobin 27.1 PG (26-34); Mean Corpuscular Volume 82.1 fL (80-100); Monocytes Absolute Auto 800 /uL (0-900); Monocytes Percent Auto 7.9 % (3-14); Neutrophils Absolute Auto 6500 /uL (1500-7000); Neutrophils Percent Auto 64.3 % (50-75); Platelet Count 406 X10^3/uL (150-400); Red Blood Cell Count 4.44 X10^6/uL (4.5-5.9); White Blood Cell Count 10.1 X10^3/uL (4.5-11.0)
[2021-03-08 08:22] LABS: HEMOLYSIS < 15 (0-50)
[2021-03-08 08:27] LABS: Alanine Aminotransferase 23 IU/L (<50); Albumin 4.2 g/dL (3.5-5.0); Albumin Globulin Ratio 1.3 (1.0-2.8); Alkaline Phosphatase 169 U/L (38-126); Aspartate Aminotransferase 28 IU/L (17-59); BUN Creatinine Ratio 13.6 (6-22); Bilirubin Total 0.4 mg/dL (0.2-1.3); Blood Urea Nitrogen 12 mg/dL (9-20); Calcium 9.2 mg/dL (8.4-10.2); Carbon Dioxide 32 mmol/L (22-32); Chloride 99 mmol/L (98-107); Creatine Kinase 46 U/L (55-170); Estimated Glomerular Filt Rate > 60.0 mL/min (>60); Globulin 3.2 g/dL (1.7-4.1); Glucose 152 mg/dL (80-110); Sodium 137 mmol/L (137-145); Total Protein 7.4 g/dL (6.3-8.2)
[2021-03-08 08:28] LABS: Lactate (Lactic Acid) 1.2 mmol/L (0.7-2.1)
--- NOTE | 2021-03-08 08:30 | PC.NURSE ---
new urinary bag changed to obtain a sample
[2021-03-08 08:38] LABS: PCO2 VBG 50.8 mmHg (45-50); pH VBG 7.41 (7.33-7.43)
[2021-03-08 08:39] LABS: HCO3 VBG 32 mmol/L (23-28); Oxygen Saturation VBG 70 % (70-75); PO2 VBG 37 mmHg (35-45); Total CO2 VBG 34 mmol/L (24-29)
[2021-03-08 08:39] LABS: Troponin I < 0.012 ng/mL (0.01-0.034)
[2021-03-08 08:44] LABS: Lipase 21 U/L (23-300); Procalcitonin 0.04 ng/mL (<0.5)
[2021-03-08 08:54] LABS: Ketones (Beta-Hydroxybutyrate) 0.34 mmol/L (<0.27)
[2021-03-08 09:36] LABS: COVID19 - ADMIT (NP swab/PCR) Negative (Negative)
[2021-03-08 09:48] LABS: pH VBG 7.39 (7.33-7.43)
[2021-03-08 09:49] LABS: HCO3 VBG 31 mmol/L (23-28); PCO2 VBG 51.6 mmHg (45-50); PO2 VBG 37 mmHg (35-45); Total CO2 VBG 33 mmol/L (24-29)
[2021-03-08 09:50] LABS: Oxygen Saturation VBG 68 % (70-75)
[2021-03-08] MEDS: PANTOPRAZOLE 40 MG VIAL IV (10:03)
[2021-03-08] MEDS: METOCLOPRAMIDE 10 MG/2 ML INJ IV (10:03)
[2021-03-08 10:53] LABS: Appearance Urine UA CLEAR; Bilirubin Urine UA NEGATIVE (NEGATIVE); Color Urine UA YELLOW; Glucose Urine UA NEGATIVE (Negative); Ketones Urine UA NEGATIVE (NEGATIVE); Leukocyte Esterase Urine UA NEGATIVE (NEGATIVE); Nitrite Urine UA POSITIVE (Negative); Occult Blood Urine UA TRACE-LYSED (Negative); Protein Urine UA NEGATIVE (Negative); Urobilinogen Urine UA 0.2 E.U./dL (0.2)
[2021-03-08 11:13] LABS: Amorphous Sediment Urine 2+; Bacteria Urine Few (2-10); RBC Urine 1-5/HPF (0-5/HPF); WBC Urine 5-10/HPF (0-5/HPF)
[2021-03-08 11:14] LABS: Culture Indicated Urine Specimen Cultured
== END 2021-03-08 14:09 | disposition home or self-care (01) ==
PROVIDERS: Emergency Provider Emergency Medicine; Family Provider Nurse Practitioner Family; PCP Registered Nurse
DX: T83.511A Infection and inflammatory reaction due to indwelling urethral catheter, initial encounter (principal); R10.9 Unspecified abdominal pain; Z20.822 Contact with and (suspected) exposure to COVID-19
CPT/HCPCS: 36415; 71045; 74177; 80053; 81001; 82009; 82550; 82805; 82962; 83605; 83690; 84145; 84484; 85025; 87040; 87077; 87086; 87186; 87635; 93005; 93010; 96361; 96374; 96375; 99284; C9803; C9113; J2405; J2765; Q9967

== ENCOUNTER → 2021-03-10 09:13 | Outpatient (CLI) | payer MEDICARE, MEDICAID, SELFPAY ==
[2019-03-02 18:01] VITALS: BMI 27.4
== END ==
PROVIDERS: Family Provider Nurse Practitioner Family; PCP Registered Nurse; Referring Provider Registered Nurse; Visit Provider Family Medicine
DX: E10.622 Type 1 diabetes mellitus with other skin ulcer (principal); L97.812 Non-pressure chronic ulcer of other part of right lower leg with fat layer exposed; Z89.511 Acquired absence of right leg below knee; I73.9 Peripheral vascular disease, unspecified; L08.9 Local infection of the skin and subcutaneous tissue, unspecified; B95.7 Other staphylococcus as the cause of diseases classified elsewhere
CPT/HCPCS: 99183; G0277

== ENCOUNTER → 2021-03-11 09:02 | Outpatient (CLI) | payer MEDICARE, MEDICAID, SELFPAY ==
[2019-03-02 18:01] VITALS: BMI 27.4
== END ==
PROVIDERS: Family Provider Nurse Practitioner Family; PCP Registered Nurse; Referring Provider Registered Nurse; Visit Provider Family Medicine
DX: E10.622 Type 1 diabetes mellitus with other skin ulcer (principal); L97.812 Non-pressure chronic ulcer of other part of right lower leg with fat layer exposed; Z89.511 Acquired absence of right leg below knee; I73.9 Peripheral vascular disease, unspecified; L08.9 Local infection of the skin and subcutaneous tissue, unspecified; B95.7 Other staphylococcus as the cause of diseases classified elsewhere
CPT/HCPCS: 99183; G0277

== ENCOUNTER → 2021-03-12 08:56 | Outpatient (CLI) | payer MEDICARE, MEDICAID, SELFPAY ==
[2019-03-02 18:01] VITALS: BMI 27.4
== END ==
PROVIDERS: Family Provider Nurse Practitioner Family; PCP Registered Nurse; Referring Provider Registered Nurse; Visit Provider Family Medicine
DX: E10.622 Type 1 diabetes mellitus with other skin ulcer (principal); L97.812 Non-pressure chronic ulcer of other part of right lower leg with fat layer exposed; Z89.511 Acquired absence of right leg below knee; I73.9 Peripheral vascular disease, unspecified; L08.9 Local infection of the skin and subcutaneous tissue, unspecified; B95.7 Other staphylococcus as the cause of diseases classified elsewhere
CPT/HCPCS: 11042; 99183; G0277

== ENCOUNTER → 2021-03-13 08:45 | Outpatient (CLI) | payer MEDICARE, MEDICAID, SELFPAY ==
[2019-03-02 18:01] VITALS: BMI 27.4
== END ==
PROVIDERS: Family Provider Nurse Practitioner Family; PCP Registered Nurse; Referring Provider Registered Nurse; Visit Provider Family Medicine
DX: E10.622 Type 1 diabetes mellitus with other skin ulcer (principal); L97.812 Non-pressure chronic ulcer of other part of right lower leg with fat layer exposed; Z89.511 Acquired absence of right leg below knee; I73.9 Peripheral vascular disease, unspecified; L08.9 Local infection of the skin and subcutaneous tissue, unspecified; B95.7 Other staphylococcus as the cause of diseases classified elsewhere
CPT/HCPCS: 99183; G0277

== ENCOUNTER → 2021-03-14 09:20 | Outpatient (CLI) | payer MEDICARE, MEDICAID, SELFPAY ==
[2019-03-02 18:01] VITALS: BMI 27.4
== END ==
PROVIDERS: Family Provider Nurse Practitioner Family; PCP Registered Nurse; Referring Provider Registered Nurse; Visit Provider Family Medicine
DX: E10.622 Type 1 diabetes mellitus with other skin ulcer (principal); L97.812 Non-pressure chronic ulcer of other part of right lower leg with fat layer exposed; Z89.511 Acquired absence of right leg below knee; I73.9 Peripheral vascular disease, unspecified; L08.9 Local infection of the skin and subcutaneous tissue, unspecified; B95.7 Other staphylococcus as the cause of diseases classified elsewhere
CPT/HCPCS: 99183; G0277

== ENCOUNTER → 2021-03-17 08:43 | Outpatient (CLI) | payer MEDICARE, MEDICAID, SELFPAY ==
[2019-03-02 18:01] VITALS: BMI 27.4
== END ==
PROVIDERS: Family Provider Nurse Practitioner Family; PCP Registered Nurse; Referring Provider Registered Nurse; Visit Provider Family Medicine
DX: E10.622 Type 1 diabetes mellitus with other skin ulcer (principal); L97.812 Non-pressure chronic ulcer of other part of right lower leg with fat layer exposed; Z89.511 Acquired absence of right leg below knee; I73.9 Peripheral vascular disease, unspecified; L08.9 Local infection of the skin and subcutaneous tissue, unspecified; B95.7 Other staphylococcus as the cause of diseases classified elsewhere
CPT/HCPCS: 99183; G0277

== ENCOUNTER → 2021-03-18 08:45 | Outpatient (CLI) | payer MEDICARE, MEDICAID, SELFPAY ==
[2019-03-02 18:01] VITALS: BMI 27.4
== END ==
PROVIDERS: Family Provider Nurse Practitioner Family; PCP Registered Nurse; Referring Provider Registered Nurse; Visit Provider Family Medicine
DX: E10.622 Type 1 diabetes mellitus with other skin ulcer (principal); L97.812 Non-pressure chronic ulcer of other part of right lower leg with fat layer exposed; Z89.511 Acquired absence of right leg below knee; I73.9 Peripheral vascular disease, unspecified; L08.9 Local infection of the skin and subcutaneous tissue, unspecified; B95.7 Other staphylococcus as the cause of diseases classified elsewhere
CPT/HCPCS: 99183; G0277

== ENCOUNTER → 2021-03-19 08:57 | Outpatient (CLI) | payer MEDICARE, MEDICAID, SELFPAY ==
[2019-03-02 18:01] VITALS: BMI 27.4
== END ==
PROVIDERS: Family Provider Nurse Practitioner Family; PCP Registered Nurse; Referring Provider Registered Nurse; Visit Provider Family Medicine
DX: E10.622 Type 1 diabetes mellitus with other skin ulcer (principal); L97.812 Non-pressure chronic ulcer of other part of right lower leg with fat layer exposed; Z89.511 Acquired absence of right leg below knee; I73.9 Peripheral vascular disease, unspecified; L08.9 Local infection of the skin and subcutaneous tissue, unspecified; B95.7 Other staphylococcus as the cause of diseases classified elsewhere
CPT/HCPCS: 11042; 99183; G0277

== ENCOUNTER → 2021-03-20 08:53 | Outpatient (CLI) | payer MEDICARE, MEDICAID, SELFPAY ==
[2019-03-02 18:01] VITALS: BMI 27.4
== END ==
PROVIDERS: Family Provider Nurse Practitioner Family; PCP Registered Nurse; Referring Provider Registered Nurse; Visit Provider Family Medicine
DX: E10.622 Type 1 diabetes mellitus with other skin ulcer (principal); L97.812 Non-pressure chronic ulcer of other part of right lower leg with fat layer exposed; Z89.511 Acquired absence of right leg below knee; I73.9 Peripheral vascular disease, unspecified; L08.9 Local infection of the skin and subcutaneous tissue, unspecified; B95.7 Other staphylococcus as the cause of diseases classified elsewhere
CPT/HCPCS: 99183; G0277

== ENCOUNTER → 2021-03-21 09:05 | Outpatient (CLI) | payer MEDICARE, MEDICAID, SELFPAY ==
[2019-03-02 18:01] VITALS: BMI 27.4
== END ==
PROVIDERS: Family Provider Nurse Practitioner Family; PCP Registered Nurse; Referring Provider Registered Nurse; Visit Provider Nurse Practitioner Family
DX: E10.622 Type 1 diabetes mellitus with other skin ulcer (principal); L97.812 Non-pressure chronic ulcer of other part of right lower leg with fat layer exposed; Z89.511 Acquired absence of right leg below knee; I73.9 Peripheral vascular disease, unspecified; L08.9 Local infection of the skin and subcutaneous tissue, unspecified; B95.7 Other staphylococcus as the cause of diseases classified elsewhere
CPT/HCPCS: 99183; G0277

== ENCOUNTER → 2021-03-24 08:58 | Outpatient (CLI) | payer MEDICARE, MEDICAID, SELFPAY ==
[2019-03-02 18:01] VITALS: BMI 27.4
== END ==
PROVIDERS: Family Provider Nurse Practitioner Family; PCP Registered Nurse; Referring Provider Registered Nurse; Visit Provider Family Medicine
DX: E10.622 Type 1 diabetes mellitus with other skin ulcer (principal); L97.812 Non-pressure chronic ulcer of other part of right lower leg with fat layer exposed; Z89.511 Acquired absence of right leg below knee; I73.9 Peripheral vascular disease, unspecified; L08.9 Local infection of the skin and subcutaneous tissue, unspecified; B95.7 Other staphylococcus as the cause of diseases classified elsewhere
CPT/HCPCS: 99183; G0277

== ENCOUNTER → 2021-03-25 08:48 | Outpatient (CLI) | payer MEDICARE, MEDICAID, SELFPAY ==
[2019-03-02 18:01] VITALS: BMI 27.4
== END ==
PROVIDERS: Family Provider Nurse Practitioner Family; PCP Registered Nurse; Referring Provider Registered Nurse; Visit Provider Family Medicine
DX: E10.622 Type 1 diabetes mellitus with other skin ulcer (principal); L97.812 Non-pressure chronic ulcer of other part of right lower leg with fat layer exposed; Z89.511 Acquired absence of right leg below knee; I73.9 Peripheral vascular disease, unspecified; L08.9 Local infection of the skin and subcutaneous tissue, unspecified; B95.7 Other staphylococcus as the cause of diseases classified elsewhere
CPT/HCPCS: 99183; G0277

== ENCOUNTER → 2021-03-26 09:34 | Outpatient (CLI) | payer MEDICARE, MEDICAID, SELFPAY ==
[2019-03-02 18:01] VITALS: BMI 27.4
== END ==
PROVIDERS: Family Provider Nurse Practitioner Family; PCP Registered Nurse; Referring Provider Registered Nurse; Visit Provider Family Medicine
DX: E10.622 Type 1 diabetes mellitus with other skin ulcer (principal); L97.812 Non-pressure chronic ulcer of other part of right lower leg with fat layer exposed; Z89.511 Acquired absence of right leg below knee; I73.9 Peripheral vascular disease, unspecified; L08.9 Local infection of the skin and subcutaneous tissue, unspecified; B95.7 Other staphylococcus as the cause of diseases classified elsewhere
CPT/HCPCS: 99183; G0277

== ENCOUNTER → 2021-03-31 09:27 | Outpatient (CLI) | payer MEDICARE, MEDICAID, SELFPAY ==
[2019-03-02 18:01] VITALS: BMI 27.4
== END ==
PROVIDERS: Family Provider Nurse Practitioner Family; PCP Registered Nurse; Referring Provider Registered Nurse; Visit Provider Family Medicine
DX: E10.622 Type 1 diabetes mellitus with other skin ulcer (principal); L97.812 Non-pressure chronic ulcer of other part of right lower leg with fat layer exposed; Z89.511 Acquired absence of right leg below knee; I73.9 Peripheral vascular disease, unspecified; L08.9 Local infection of the skin and subcutaneous tissue, unspecified; B95.7 Other staphylococcus as the cause of diseases classified elsewhere
CPT/HCPCS: 99183; G0277

== ENCOUNTER → 2021-04-01 07:35 | Outpatient (CLI) | payer MEDICARE, MEDICAID, SELFPAY ==
[2019-03-02 18:01] VITALS: BMI 27.4
--- NOTE | 2021-04-01 | DI.MRI.S_ITS ---
PROCEDURE: MR LOWER LEG RT WO/W CON INDICATIONS: Type 1 diabetes mellitus with other skin ulcer TECHNIQUE: Noncontrast coronal T1 spin echo and STIR, sagittal T1 spin echo with fat saturation and STIR, axial T1 spin echo and T2 fast spin echo with fat saturation. After the administration of contrast, axial/sagittal/coronal T1 spin echo with fat saturation through the distal femur and tibia/fibula remnant . COMPARISON: None. FINDINGS: Image quality: Excellent. Bones: Postsurgical changes related to plate and screw fixation of the distal femur with associated hardware artifact. 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 No definite acute fracture seen however there is ill-defined and linear areas of marrow signal changes involving the proximal tibia at the lateral aspect, which extend to the cortex. There is associated T2 hyperintensity and enhancement, with loss of the normal fat signal intensity on T1 weighted pulse sequences. Together, constellation of findings is suspicious for osteomyelitis. Exact area involvement is difficult to measure technically although this spans 7.4 cm in the cephalocaudal oblique dimension (although primarily linear in appearance) Soft tissues: Diffuse muscle edema and T2 hyperintensity is seen in the distal femur and proximal tibia. There is possible rim enhancing ill-defined phlegmon or fluid collection raising possibility of abscess adjacent to the distal fibular stump for example image 13/9. This measures approximately 2.0 x 1.5 cm on coronal pulse sequences. There is also diffuse stump subcutaneous cellulitis. IMPRESSION: Marrow signal changes involving the proximal tibia as detailed above suspicious for osteomyelitis. Diffuse geographic edema involving the distal thigh and proximal lower leg muscle, raising possibility of infectious or inflammatory myositis, potentially other etiologies such as denervation in the differential. Partially rim enhancing , ill-defined fluid collection at the distal margin of the fibular stump raising possibility of abscess versus hematoma (bland or infected). There are some signal changes that extend to the skin surface and recommend clinical correlation to determine percutaneous tract/fistula. Technically cannot exclude early infection of the adjacent distal fibular stump cortex. Dictated by: Fidel Mcgrath M.D. on 04/01/2021 at 9:29 Approved by: Fidel Mcgrath M.D. on 04/01/2021 at 9:40
== END ==
PROVIDERS: Family Provider Nurse Practitioner Family; PCP Registered Nurse; Referring Provider Family Medicine; Visit Provider Family Medicine
DX: E10.622 Type 1 diabetes mellitus with other skin ulcer (principal); R60.0 Localized edema
CPT/HCPCS: 73720

== ENCOUNTER → 2021-04-01 09:26 | Outpatient (CLI) | payer MEDICARE, MEDICAID, SELFPAY ==
[2019-03-02 18:01] VITALS: BMI 27.4
== END ==
PROVIDERS: Family Provider Nurse Practitioner Family; PCP Registered Nurse; Referring Provider Registered Nurse; Visit Provider Family Medicine
DX: E10.622 Type 1 diabetes mellitus with other skin ulcer (principal); L97.812 Non-pressure chronic ulcer of other part of right lower leg with fat layer exposed; Z89.511 Acquired absence of right leg below knee; I73.9 Peripheral vascular disease, unspecified; L08.9 Local infection of the skin and subcutaneous tissue, unspecified; B95.7 Other staphylococcus as the cause of diseases classified elsewhere; R60.0 Localized edema
CPT/HCPCS: 73720; 99183; G0277

== ENCOUNTER → 2021-04-02 11:25 | Outpatient (CLI) | payer MEDICARE, MEDICAID, SELFPAY ==
[2019-03-02 18:01] VITALS: BMI 27.4
== END ==
PROVIDERS: Family Provider Nurse Practitioner Family; PCP Registered Nurse; Referring Provider Registered Nurse; Visit Provider Family Medicine
DX: E10.622 Type 1 diabetes mellitus with other skin ulcer (principal); L97.813 Non-pressure chronic ulcer of other part of right lower leg with necrosis of muscle; Z89.511 Acquired absence of right leg below knee; I73.9 Peripheral vascular disease, unspecified; L08.9 Local infection of the skin and subcutaneous tissue, unspecified; B95.7 Other staphylococcus as the cause of diseases classified elsewhere; M86.161 Other acute osteomyelitis, right tibia and fibula
CPT/HCPCS: 11043; 87070; 87075; 87077; 87147; 87186; 87205; 99213; 99215

== ENCOUNTER → 2021-04-04 09:03 | Outpatient (CLI) | payer MEDICARE, MEDICAID, SELFPAY ==
[2019-03-02 18:01] VITALS: BMI 27.4
== END ==
PROVIDERS: Family Provider Nurse Practitioner Family; PCP Registered Nurse; Referring Provider Registered Nurse; Visit Provider Nurse Practitioner Family
DX: E10.622 Type 1 diabetes mellitus with other skin ulcer (principal); L97.812 Non-pressure chronic ulcer of other part of right lower leg with fat layer exposed; Z89.511 Acquired absence of right leg below knee; I73.9 Peripheral vascular disease, unspecified; L08.9 Local infection of the skin and subcutaneous tissue, unspecified; B95.7 Other staphylococcus as the cause of diseases classified elsewhere
CPT/HCPCS: 99183; G0277

== ENCOUNTER → 2021-04-09 08:48 | Outpatient (CLI) | payer MEDICARE, MEDICAID, SELFPAY ==
[2019-03-02 18:01] VITALS: BMI 27.4
== END ==
PROVIDERS: Family Provider Nurse Practitioner Family; PCP Registered Nurse; Referring Provider Registered Nurse; Visit Provider Family Medicine
DX: E10.622 Type 1 diabetes mellitus with other skin ulcer (principal); L97.812 Non-pressure chronic ulcer of other part of right lower leg with fat layer exposed; Z89.511 Acquired absence of right leg below knee; I73.9 Peripheral vascular disease, unspecified; B95.7 Other staphylococcus as the cause of diseases classified elsewhere; M86.161 Other acute osteomyelitis, right tibia and fibula
CPT/HCPCS: 99183; 99213; 99214; G0277

== ENCOUNTER → 2021-04-10 08:58 | Outpatient (CLI) | payer MEDICARE, MEDICAID, SELFPAY ==
[2019-03-02 18:01] VITALS: BMI 27.4
== END ==
PROVIDERS: Family Provider Nurse Practitioner Family; PCP Registered Nurse; Referring Provider Registered Nurse; Visit Provider Family Medicine
DX: E10.622 Type 1 diabetes mellitus with other skin ulcer (principal); L97.812 Non-pressure chronic ulcer of other part of right lower leg with fat layer exposed; Z89.511 Acquired absence of right leg below knee; I73.9 Peripheral vascular disease, unspecified; B95.7 Other staphylococcus as the cause of diseases classified elsewhere; M86.161 Other acute osteomyelitis, right tibia and fibula
CPT/HCPCS: 99183; G0277

== ENCOUNTER → 2021-04-12 07:00 | Outpatient (ROUT) | payer MEDICARE, MEDICAID, SELFPAY ==
[2019-03-02 18:01] VITALS: BMI 27.4
[2021-04-12 08:06] LABS: COVID-19 CEPHEID PCR (VTM/NP) Negative (Negative)
[2021-04-12 17:49] LABS: Add Manual Diff / Slide Review NO; Basophils Absolute Auto 200 /uL (0-100); Basophils Percent Auto 3.3 % (0-2); Eosinophils Absolute Auto 300 /uL (0-450); Eosinophils Percent Auto 4.2 % (2-4); Hemoglobin 9.9 g/dL (13.5-17.5); Lymphocytes Absolute Auto 1600 /uL (1100-4500); Lymphocytes Percent Auto 24.5 % (25-40); Mean Corpuscular Hemoglobin 26.2 PG (26-34); Mean Corpuscular Volume 79.5 fL (80-100); Monocytes Absolute Auto 600 /uL (0-900); Monocytes Percent Auto 9.7 % (3-14); Neutrophils Absolute Auto 3700 /uL (1500-7000); Neutrophils Percent Auto 58.3 % (50-75); Platelet Count 407 X10^3/uL (150-400); Red Blood Cell Count 3.78 X10^6/uL (4.5-5.9); Red Cell Distribution Width 14.1 % (11.6-14.8); White Blood Cell Count 6.4 X10^3/uL (4.5-11.0)
[2021-04-12 18:24] LABS: Alanine Aminotransferase 20 IU/L (<50); Albumin Globulin Ratio 1.3 (1.0-2.8); Alkaline Phosphatase 145 U/L (38-126); Aspartate Aminotransferase 25 IU/L (17-59); BUN Creatinine Ratio 20.4 (6-22); Bilirubin Total 0.3 mg/dL (0.2-1.3); Blood Urea Nitrogen 21 mg/dL (9-20); Calcium 8.9 mg/dL (8.4-10.2); Carbon Dioxide 35 mmol/L (22-32); Chloride 98 mmol/L (98-107); Creatine Kinase 46 U/L (55-170); Estimated Glomerular Filt Rate > 60.0 mL/min (>60); Globulin 3.1 g/dL (1.7-4.1); Glucose 83 mg/dL (80-110); HEMOLYSIS < 15 (0-50); Potassium 4.1 mmol/L (3.4-5.1); Sodium 139 mmol/L (137-145); Total Protein 7.1 g/dL (6.3-8.2)
== END ==
PROVIDERS: Family Provider Nurse Practitioner Family; PCP Registered Nurse; Visit Provider Internal Medicine
DX: Z20.822 Contact with and (suspected) exposure to COVID-19 (principal)
CPT/HCPCS: 80053; 82550; 85025; 86140; U0003

== ENCOUNTER → 2021-04-12 15:00 | Outpatient (CLI) | payer MEDICARE, MEDICAID, SELFPAY ==
[2019-03-02 18:01] VITALS: BMI 27.4
--- NOTE | 2021-04-12 | DI.RAD.S_ITS ---
PROCEDURE: XR CHEST 2V INDICATIONS: Confirm placement of PICC line placement TECHNIQUE: 2 views of the chest were acquired. COMPARISON: [facility], , XR CHEST 1V, 03/08/2021, 8:01. FINDINGS: Surgical changes and devices: Left arm PICC is present, tip of which is at the cavoatrial junction. Lungs and pleura: Lungs are clear. No pleural effusions or pneumothorax. Mediastinum: Mediastinal contours are normal. Heart size is normal. Bones and chest wall: No suspicious bony abnormalities. Soft tissues appear unremarkable. IMPRESSION: No acute process. Dictated by: Gary Kirkpatrick M.D. on 04/12/2021 at 14:59 Approved by: Gary Kirkpatrick M.D. on 04/12/2021 at 14:59
== END ==
PROVIDERS: Family Provider Nurse Practitioner Family; PCP Nurse Practitioner Family; Referring Provider Internal Medicine; Visit Provider Internal Medicine
DX: M62.81 Muscle weakness (generalized) (principal); Z20.822 Contact with and (suspected) exposure to COVID-19; Z45.2 Encounter for adjustment and management of vascular access device
CPT/HCPCS: 71046; 80053; 82550; 85025; 86140; U0003

== ENCOUNTER → 2021-04-15 07:31 | Outpatient (ROUT) | payer SELFPAY ==
[2019-03-02 18:01] VITALS: BMI 27.4
[2021-04-15 07:56] LABS: Alanine Aminotransferase 15 IU/L (<50); Albumin 3.3 g/dL (3.5-5.0); Albumin Globulin Ratio 1.2 (1.0-2.8); Alkaline Phosphatase 153 U/L (38-126); Aspartate Aminotransferase 21 IU/L (17-59); BUN Creatinine Ratio 22.1 (6-22); Bilirubin Total 0.2 mg/dL (0.2-1.3); Blood Urea Nitrogen 15 mg/dL (9-20); C-Reactive Protein Quant 3.8 mg/dL (<1.0); Calcium 8.3 mg/dL (8.4-10.2); Carbon Dioxide 33 mmol/L (22-32); Chloride 100 mmol/L (98-107); Estimated Glomerular Filt Rate > 60.0 mL/min (>60); Globulin 2.7 g/dL (1.7-4.1); Glucose 335 mg/dL (80-110); HEMOLYSIS < 15 (0-50); Potassium 3.4 mmol/L (3.4-5.1); Sodium 135 mmol/L (137-145)
[2021-04-15 08:33] LABS: Vancomycin Trough 15.8 ug/mL (10-20)
== END ==
PROVIDERS: Family Provider Nurse Practitioner Family; PCP Registered Nurse; Visit Provider Internal Medicine
DX: E11.9 Type 2 diabetes mellitus without complications (principal); Z79.899 Other long term (current) drug therapy
CPT/HCPCS: 80053; 80202; 86140

== ENCOUNTER → 2021-04-18 08:50 | Outpatient (ROUT) | payer SELFPAY ==
[2019-03-02 18:01] VITALS: BMI 27.4
[2021-04-18 09:03] LABS: Add Manual Diff / Slide Review NO; Basophils Absolute Auto 100 /uL (0-100); Eosinophils Absolute Auto 700 /uL (0-450); Eosinophils Percent Auto 10.1 % (2-4); Hematocrit 27.1 % (41-53); Lymphocytes Absolute Auto 1900 /uL (1100-4500); Lymphocytes Percent Auto 27.1 % (25-40); Mean Corpuscular HGB Conc 33.1 % (30-36); Mean Corpuscular Hemoglobin 26.3 PG (26-34); Mean Corpuscular Volume 79.5 fL (80-100); Monocytes Absolute Auto 900 /uL (0-900); Monocytes Percent Auto 12.3 % (3-14); Neutrophils Absolute Auto 3500 /uL (1500-7000); Neutrophils Percent Auto 49.5 % (50-75); Platelet Count 304 X10^3/uL (150-400); Red Blood Cell Count 3.41 X10^6/uL (4.5-5.9); Red Cell Distribution Width 14.3 % (11.6-14.8); White Blood Cell Count 7.1 X10^3/uL (4.5-11.0)
[2021-04-18 10:14] LABS: Alanine Aminotransferase 19 IU/L (<50); Albumin 3.2 g/dL (3.5-5.0); Albumin Globulin Ratio 1.3 (1.0-2.8); Alkaline Phosphatase 151 U/L (38-126); Aspartate Aminotransferase 24 IU/L (17-59); BUN Creatinine Ratio 21.8 (6-22); Bilirubin Total 0.2 mg/dL (0.2-1.3); Blood Urea Nitrogen 17 mg/dL (9-20); C-Reactive Protein Quant 1.6 mg/dL (<1.0); Calcium 8.3 mg/dL (8.4-10.2); Carbon Dioxide 30 mmol/L (22-32); Chloride 101 mmol/L (98-107); Estimated Glomerular Filt Rate > 60.0 mL/min (>60); Globulin 2.5 g/dL (1.7-4.1); Glucose 309 mg/dL (80-110); HEMOLYSIS 19 (0-50); Potassium 4.3 mmol/L (3.4-5.1); Sodium 137 mmol/L (137-145); Total Protein 5.7 g/dL (6.3-8.2)
[2021-04-18 10:16] LABS: Vancomycin Trough 15.9 ug/mL (10-20)
== END ==
PROVIDERS: Family Provider Nurse Practitioner Family; PCP Registered Nurse; Visit Provider Internal Medicine
DX: M86.161 Other acute osteomyelitis, right tibia and fibula (principal); I25.10 Atherosclerotic heart disease of native coronary artery without angina pectoris
CPT/HCPCS: 80053; 80202; 85025; 86140

== ENCOUNTER → 2021-04-22 07:29 | Outpatient (ROUT) | payer SELFPAY ==
[2019-03-02 18:01] VITALS: BMI 27.4
[2021-04-22 07:39] LABS: Add Manual Diff / Slide Review NO; Basophils Absolute Auto 100 /uL (0-100); Basophils Percent Auto 0.9 % (0-2); Eosinophils Absolute Auto 600 /uL (0-450); Eosinophils Percent Auto 7.1 % (2-4); Hematocrit 30.5 % (41-53); Hemoglobin 9.9 g/dL (13.5-17.5); Lymphocytes Absolute Auto 1500 /uL (1100-4500); Lymphocytes Percent Auto 18.3 % (25-40); Mean Corpuscular HGB Conc 32.6 % (30-36); Mean Corpuscular Hemoglobin 25.6 PG (26-34); Mean Corpuscular Volume 78.7 fL (80-100); Monocytes Absolute Auto 700 /uL (0-900); Monocytes Percent Auto 8.3 % (3-14); Neutrophils Absolute Auto 5500 /uL (1500-7000); Neutrophils Percent Auto 65.4 % (50-75); Platelet Count 347 X10^3/uL (150-400); Red Blood Cell Count 3.87 X10^6/uL (4.5-5.9); Red Cell Distribution Width 14.2 % (11.6-14.8); White Blood Cell Count 8.5 X10^3/uL (4.5-11.0)
[2021-04-22 08:01] LABS: Alanine Aminotransferase 28 IU/L (<50); Albumin 3.9 g/dL (3.5-5.0); Albumin Globulin Ratio 1.3 (1.0-2.8); Alkaline Phosphatase 176 U/L (38-126); Aspartate Aminotransferase 34 IU/L (17-59); Bilirubin Total 0.3 mg/dL (0.2-1.3); Blood Urea Nitrogen 12 mg/dL (9-20); C-Reactive Protein Quant < 0.5 mg/dL (<1.0); Calcium 8.8 mg/dL (8.4-10.2); Carbon Dioxide 36 mmol/L (22-32); Chloride 95 mmol/L (98-107); Estimated Glomerular Filt Rate > 60.0 mL/min (>60); Glucose 314 mg/dL (80-110); HEMOLYSIS < 15 (0-50); Potassium 3.5 mmol/L (3.4-5.1); Sodium 137 mmol/L (137-145); Total Protein 6.9 g/dL (6.3-8.2)
[2021-04-22 08:02] LABS: Vancomycin Trough 17.7 ug/mL (10-20)
== END ==
PROVIDERS: Family Provider Nurse Practitioner Family; PCP Registered Nurse; Visit Provider Emergency Medicine
DX: M86.161 Other acute osteomyelitis, right tibia and fibula (principal); Z79.2 Long term (current) use of antibiotics
CPT/HCPCS: 80053; 80202; 85025; 86140

== ENCOUNTER 2021-06-02 23:57 | Emergency (ER) | payer MEDICARE, MEDICAID, SELFPAY ==
[2019-03-02 18:01] VITALS: BMI 27.4
[2021-06-03 00:34] VITALS: BP 139/67; PULSE 80; RESP 16; TEMP 36.2; O2SAT 96
[2021-06-03 01:34] VITALS: BMI 24.7
--- NOTE | 2021-06-03 01:51 | DI.RAD.S_ITS ---
PROCEDURE: XR CHEST 1V INDICATIONS: congestion, sent by facility for concern of aspiration TECHNIQUE: One view of the chest was acquired. COMPARISON: [facility], CR, XR CHEST 2V, 04/12/2021, 15:01. [facility], CR, XR CHEST 1V, 03/08/2021, 8:01. FINDINGS: Surgical changes and devices: None. Lungs and pleura: Lungs are clear. No pleural effusions or pneumothorax. Mediastinum: Mediastinal contours appear normal. Heart size is normal. Bones and chest wall: No suspicious bony lesions. Overlying soft tissues appear unremarkable. IMPRESSION: No acute cardiopulmonary disease. Dictated by: Clif Bermeo M.D. on 06/03/2021 at 8:11 Approved by: Clif Bermeo M.D. on 06/03/2021 at 8:11
[2021-06-03 03:08] LABS: COVID19 -Nasal RAPID Negative (Negative)
--- NOTE | 2021-06-03 03:26 | ED_ITS ---
HPI - URI/Sore Throat General Chief Complaint: Upper Respiratory Symptoms Stated Complaint: Nasal drainage Time Seen by Provider: 06/03/21 01:51 Source: patient and EMS Mode of arrival: EMS History of Present Illness HPI Narrative: 66-year-old male daily smoker with history of diabetes presents from a local nursing facility with concern regarding nasal congestion and possible aspiration. The patient has no complaints. He denies any fever chills, no sore throat or cough. He has no chest pain or shortness of breath. He denies nausea, vomiting or diarrhea Related Data Home Medications Medication Instructions Recorded Confirmed acetaminophen 325 mg tablet 650 mg PO Q4HP PRN #0 06/29/17 03/07/19 aluminum-mag hydroxide-simethicone 30 ml PO Q4H PRN #0 06/29/17 03/07/19 400 mg-400 mg-40 mg/5 mL oral susp (Maalox Maximum Strength) atorvastatin 80 mg tablet 80 mg PO BEDTIME #0 06/29/17 03/07/19 bisacodyl 10 mg rectal suppository 10 mg NC PRN PRN #0 06/29/17 03/07/19 bisacodyl 5 mg tablet,delayed 10 mg PO PRN PRN #0 06/29/17 03/07/19 release (Fleet Laxative (bisacodyl)) clopidogrel 75 mg tablet 75 mg PO DAILY #0 06/29/17 03/07/19 levothyroxine 50 mcg tablet 50 mcg PO QPM #0 06/29/17 03/07/19 metoprolol succinate 25 mg 12.5 mg PO DAILY #0 06/29/17 03/07/19 tablet,extended release 24 hr (Toprol XL) omeprazole 20 mg capsule,delayed 20 mg PO DAILY #0 06/29/17 03/07/19 release sennosides 8.6 mg tablet (senna) 17.2 mg PO BEDTIME #0 06/29/17 03/07/19 artifi.tears(hypromellose)(PF) 0.3 2 drp EYE-BOTH BID ml 11/25/17 03/07/19 % eye drops baclofen 10 mg tablet 10 mg PO TID 11/25/17 03/07/19 insulin aspart U-100 100 unit/mL 100 unit SUBCUT QID 11/25/17 03/07/19 (3 mL) subcutaneous pen (Novolog Flexpen U-100 Insulin aspart) docusate sodium 100 mg capsule 2 tab PO BID 03/05/18 03/07/19 magnesium hydroxide 400 mg/5 mL 30 ml PO PRN PRN 03/05/18 03/07/19 oral suspension (Milk of Magnesia) ammonium lactate 12 % lotion 1 applic TOPICAL BID PRN 08/13/18 03/07/19 calcium carbonate 600 mg calcium 1,200 mg PO QPM 08/13/18 03/07/19 (1,500 mg) tablet cholecalciferol (vitamin D3) 25 1,000 unit PO QPM 08/13/18 03/07/19 mcg (1,000 unit) capsule fluticasone propionate 50 1 spray INTRANASAL BID 08/13/18 03/07/19 mcg/actuation nasal spray,suspension guaifenesin 600 mg tablet, 600 mg PO Q12H 08/13/18 03/07/19 extended release 12 hr (Mucinex) hydroxyzine pamoate 25 mg capsule 25 - 50 mg PO Q6H PRN 08/13/18 03/07/19 insulin glargine 100 unit/mL (3 8 unit SUBCUT BID 08/13/18 03/07/19 mL) subcutaneous pen mirtazapine 15 mg tablet 22.5 mg PO BEDTIME 08/13/18 03/07/19 ondansetron 4 mg disintegrating 4 mg PO Q4H PRN 08/13/18 03/07/19 tablet vitamin B complex (B 1 tab PO QPM 08/13/18 03/07/19 Complex-Vitamin B12) cetirizine 10 mg tablet 10 mg PO DAILY PRN 01/25/19 03/07/19 sodium chloride 0.65 % nasal spray 1 spray INTRANASAL Q6H PRN 01/25/19 03/07/19 aerosol (Saline Mist) aspirin 325 mg tablet,delayed 325 mg PO DAILY 02/20/19 03/07/19 release furosemide 40 mg tablet 40 mg PO DAILY 02/20/19 03/07/19 duloxetine 60 mg capsule,delayed 60 mg PO BEDTIME 03/02/19 03/07/19 release glucagon (human recombinant) 1 mg 1 mg IM PRN PRN MDD ` 03/02/19 03/07/19 solution for injection (Glucagon Emergency Kit) nystatin 100,000 unit/gram topical 1 applic TOPICAL BID PRN 03/02/19 03/07/19 cream Alcohol Liquor 1 ea PO DAILY PRN 03/07/19 03/07/19 Health Shake 1 ea PO QPM 03/07/19 03/07/19 bisacodyl 5 mg tablet,delayed 5 mg PO PRN PRN 03/07/19 03/07/19 release cefdinir 300 mg capsule 300 mg PO BIDX4D 03/07/19 03/07/19 dextromethorphan polistirex 30 10 ml PO Q12H PRN 03/07/19 03/07/19 mg/5 mL oral susp ext.release 12hr (Delsym 12 hour) doxycycline hyclate 100 mg capsule 100 mg PO BIDX4D 03/07/19 03/07/19 ibuprofen 400 mg tablet 400 mg PO Q4H PRN 03/07/19 03/07/19 oxycodone 5 mg tablet 5 mg PO Q4H PRN 03/07/19 03/07/19 Previous Rx's Medication Instructions Recorded clonazepam 0.5 mg tablet 0.75 mg PO Q6H PRN #20 tab 03/05/19 oxycodone 20 mg tablet,crush 20 mg PO Q8H #20 tab 03/05/19 resistant,extended release 12 hr (OxyContin) bacitracin 500 unit/gram topical 1 applic TOPICAL BID #28 g 01/01/21 ointment bacitracin 500 unit/gram topical 1 applic TOPICAL Q12H #28 g 01/01/21 ointment bacitracin zinc 500 unit/gram 1 applic TOPICAL Q12H #28 g 01/01/21 topical ointment fluconazole 150 mg tablet 150 mg PO DAILY #7 tab 01/01/21 (Diflucan) fluconazole 150 mg tablet 150 mg PO DAILY #7 tab 01/01/21 (Diflucan) fluconazole 150 mg tablet 150 mg PO DAILY #7 tab 01/01/21 (Diflucan) lidocaine 5 % topical gel 1 ea TOPICAL QID #10 g 01/01/21 metoclopramide HCl 10 mg tablet 10 mg PO Q6H PRN #20 tab 03/08/21 (Reglan) Allergies Allergy/AdvReac Type Severity Reaction Status Date / Time amitriptyline Allergy Verified 03/08/21 09:07 pollen extracts Allergy Verified 03/08/21 09:07 codeine [CODEINE] AdvReac Unknown nausea Verified 03/08/21 09:07 Review of Systems Review of Systems Narrative: GENERAL: See HPI HEENT: See HP of RESPIRATORY: See HPI CARDIOVASCULAR: Denies chest pain, palpitations, orthopnea, edema, GASTROINTESTINAL: Denies nausea, vomiting, abdominal pain, diarrhea, constipation, melena. : Denies dysuria, frequency, incontinence, hematuria, urinary retention. MUSCULOSKELETAL: denies weakness, joint pain, or bony pain SKIN: Denies rash, skin lesions, or other NEUROLOGIC: Denies weakness, headache, numbness, change in speech, confusion, seizures, incoordination. PSYCHIATRIC: No concerning psychosocial issues. 12 point review of systems is negative except for those stated above Patient History Medical History (Updated 06/03/21 @ 03:30 by Miguel Kahn DO) C3 spinal cord injury C4 spinal cord injury CVA (cerebral vascular accident) Diabetes Gastroesophageal reflux disease Hyperlipidemia Hypertension Surgical History History of carotid endarterectomy History of coronary artery stent placement No pertinent past surgical history Family History Mother Cancer Father Lung disease Hyperlipidemia Brother Lupus Social History household members: caregiver Smoking Status: Current every day smoker alcohol intake: current substance use type: does not use additional social history: He currently resides in He currently resides in [facility]. Smoking Status: Current every day smoker tobacco type: cigarettes alcohol intake frequency: holidays/special occasions only Substance Use Type: does not use Exam Narrative Exam Narrative: GEN: AOx3 and in mild distress EYES: Pupils are equal, round, and reactive to light and accommodation. Extraoccular muscles are intact bilaterally. There is no subconjunctival hemorrhage or exudate. CHEST: Lungs are clear to auscultation bilaterally and free of wheezes, rales, or rhonchi. Heart rate is regular rhythm, there are no murmurs, clicks, rubs, or gallops. There is no chest wall tenderness. ABD: Abdomen is soft and nontender. There is no guarding or rebound. Bowel sounds are normal in all 4 quadrants. There is no mass or organomegaly. EXT: Full painless ROM of all extremities with no loss of sensation or strength. SKIN: Warm, pink, and dry. No erythema or rash Initial Vital Signs Initial Vital Signs: Vital Signs Temperature 97.2 F L 06/03/21 00:34 Pulse Rate 80 06/03/21 00:34 Respiratory Rate 16 06/03/21 00:34 Blood Pressure 139/67 06/03/21 00:34 Pulse Oximetry 96 06/03/21 00:34 Course Orders Ordered: ED Orders 06/03/21 01:51 Chest [XR chest 1V] Stat 06/03/21 02:45 COVID19 -Nasal swab/Pre-Proc Stat Vital Signs Vital signs: Vital Signs - 8 hr 06/03/21 00:34 Temperature 97.2 F L Pulse Rate 80 Respiratory Rate 16 Blood Pressure [Left Arm] 139/67 Pulse Oximetry 96 MDM - URI/Sore Throat Lab Data Labs: Lab Results 06/03/21 Range/Units 02:45 SARS-CoV-2 (PCR) Negative (Negative) Imaging Data Chest x-ray: Radiologist's Impression: No acute process MDM Narrative Medical decision making narrative: Patient with no symptoms, has a very reassuring history and physical exam. Chest x-ray is clear and COVID is negative. No signs of respiratory distress Discharge Plan Departure Patient Disposition: Home Clinical Impression: Congested nose Activity Restrictions/Additional Instructions: *You have been diagnosed with [nasal congestion. Your history, physical exam are very reassuring. Chest x-ray shows no evidence of pneumonia and COVID swab was negative *What to do: *Please continue to take your regular medications as directed. [ ] New medication prescriptions sent to your pharmacy: [ ] [ ] New medication written as a paper prescription [ x] No new medications given *Please follow up with your primary care provider in 2-3 days, call for an appointment. Let them know you were seen in the Emergency Department and that we ask that you be seen in follow up. We will electronically transmit a record of today's note if your PCP is in our system *If you do not have a primary care provider please contact the [facility] Resource line at [phone]. They will ask some questions about your medical history and help get you set up with a doctor in the community. *Return to Emergency Department if you should have any new, worsening or concerning symptoms, such as [fever greater than 101 F, shaking chills, worsening pain, persistent vomiting or other bothersome symptoms] Prescriptions: No Action atorvastatin 80 MG tablet 80 mg PO BEDTIME Qty: 0 0RF clopidogrel 75 MG tablet 75 mg PO DAILY Qty: 0 0RF levothyroxine 50 MCG tablet 50 mcg PO QPM Qty: 0 0RF metoprolol succinate [Toprol XL] 25 MG tablet extended release 24 hr 12.5 mg PO DAILY Qty: 0 0RF sennosides [senna] 8.6 MG tablet 17.2 mg PO BEDTIME Qty: 0 0RF acetaminophen 325 MG tablet 650 mg PO Q4HP PRN (Reason: Fever Or Pain) Qty: 0 0RF omeprazole 20 MG capsule,delayed release(DR/EC) 20 mg PO DAILY Qty: 0 0RF bisacodyl 10 MG suppository 10 mg NC PRN PRN (Reason: Constipation) Qty: 0 0RF bisacodyl [Fleet Laxative (bisacodyl)] 5 MG tablet,delayed release (DR/EC) 10 mg PO PRN PRN (Reason: no BM x 3 days ) Qty: 0 0RF Maalox Maximum Strength 355 ML suspension 30 ml PO Q4H PRN (Reason: gi upset) Qty: 0 0RF magnesium hydroxide [Milk of Magnesia] 400 mg/5 mL Suspension 30 ml PO PRN PRN (Reason: Constipation) 0RF docusate sodium 100 mg Capsule 2 tab PO BID 0RF aspirin 325 mg Tablet,Delayed Release (Dr/Ec) 325 mg PO DAILY 0RF furosemide 40 mg tablet 40 mg PO DAILY 0RF metoclopramide HCl [Reglan] 10 mg tablet 10 mg PO Q6H PRN (Reason: nausea and vomiting) Qty: 20 0RF calcium carbonate 600 mg calcium (1,500 mg) Tablet 1,200 mg PO QPM 0RF vitamin B complex [B Complex-Vitamin B12] Tablet 1 tab PO QPM 0RF mirtazapine 15 mg Tablet 22.5 mg PO BEDTIME 0RF fluticasone propionate 50 mcg/actuation [place],Suspension 1 spray INTRANASAL BID 0RF cholecalciferol (vitamin D3) 1,000 unit Capsule 1,000 unit PO QPM 0RF hydroxyzine pamoate 25 mg Capsule 25 - 50 mg PO Q6H PRN (Reason: pain/spasms) 0RF insulin glargine 100 unit/mL (3 mL) Insulin Pen 8 unit SUBCUT BID 0RF ondansetron 4 mg Tablet,Disintegrating 4 mg PO Q4H PRN (Reason: Nausea) 0RF ammonium lactate 12 % Lotion 1 applic TOPICAL BID PRN (Reason: Dry Skin) 0RF guaifenesin [Mucinex] 600 mg Tablet Extended Release 12hr 600 mg PO Q12H 0RF cetirizine 10 mg Tablet 10 mg PO DAILY PRN (Reason: allergies) 0RF sodium chloride [Saline Mist] 0.65 % Aerosol,[place] 1 spray INTRANASAL Q6H PRN (Reason: Congestion) 0RF Glucagon Emergency Kit (human) 1 mg Recon Soln 1 mg IM PRN MDD ` PRN (Reason: blood glucose <60) 0RF duloxetine 60 mg capsule,delayed release(DR/EC) 60 mg PO BEDTIME 0RF nystatin 100,000 unit/gram Cream 1 applic TOPICAL BID PRN (Reason: yeast) 0RF oxycodone [OxyContin] 20 mg Tablet,Oral Only,Ext.Rel.12 Hr 20 mg PO Q8H Qty: 20 0RF Rx Instructions: hold if too sedated clonazepam 0.5 mg tablet 0.75 mg PO Q6H PRN (Reason: Anxiety) Qty: 20 0RF Rx Instructions: do not give if resident has been drinking. hold if sedated Health Shake 1 ea PO QPM 0RF Alcohol Liquor 1 ea PO DAILY PRN (Reason: life enjoyment) 0RF Rx Instructions: 2 of of liquor or 5 oz wine, etc dextromethorphan polistirex [Delsym 12 hour] 30 mg/5 mL Suspension,Extended Rel 12 Hr 10 ml PO Q12H PRN (Reason: Cough) 0RF ibuprofen 400 mg Tablet 400 mg PO Q4H PRN (Reason: pain) 0RF bisacodyl 5 mg Tablet,Delayed Release (Dr/Ec) 5 mg PO PRN PRN (Reason: no BM x 2 days) 0RF oxycodone 5 mg tablet 5 mg PO Q4H PRN (Reason: pain) 0RF Rx Instructions: hold if too sedated doxycycline hyclate 100 mg capsule 100 mg PO BIDX4D 0RF cefdinir 300 mg capsule 300 mg PO BIDX4D 0RF bacitracin 500 unit/gram ointment 1 applic topical BID Qty: 28 0RF fluconazole [Diflucan] 150 mg tablet 150 mg PO DAILY Qty: 7 0RF lidocaine 5 % gel 1 ea topical QID Qty: 10 0RF bacitracin 500 unit/gram ointment 1 applic topical Q12H Qty: 28 0RF fluconazole [Diflucan] 150 mg tablet 150 mg PO DAILY Qty: 7 0RF bacitracin zinc 500 unit/gram ointment 1 applic topical Q12H Qty: 28 0RF fluconazole [Diflucan] 150 mg tablet 150 mg PO DAILY Qty: 7 0RF insulin aspart U-100 [Novolog Flexpen U-100 Insulin] 100 unit/mL insulin pen 100 unit SUBCUT QID 0RF Rx Instructions: Per [facility] med list, insulin instructions is per Ray is to direct his own dosing of insulin based on what he is about to consume w/ meals baclofen 10 mg tablet 10 mg PO TID 0RF Rx Instructions: 0600 1500 1800 artifi.tears(hypromellose)(PF) 0.3 % drops 2 drp EYE-BOTH BID 0RF Referrals: Eli Canas ARNP [Primary Care Provider] -
== END 2021-06-03 08:34 | disposition home or self-care (01) ==
PROVIDERS: Emergency Provider Emergency Medicine; Family Provider Nurse Practitioner Family; PCP Registered Nurse
DX: R09.81 Nasal congestion (principal); F17.200 Nicotine dependence, unspecified, uncomplicated; Z20.822 Contact with and (suspected) exposure to COVID-19
CPT/HCPCS: 71045; 87635; 99282; 99283; C9803

== ENCOUNTER 2021-07-02 22:45 | Observation (INO) | payer MEDICARE, MEDICAID, SELFPAY ==
[2019-03-02 18:01] VITALS: BMI 27.4
[2021-07-02 22:47] VITALS: BP 165/76; PULSE 95; PULSE 98; RESP 20; RESP 24; TEMP 36.7; O2SAT 98
[2021-07-02 22:48] VITALS: BP 165/76; PULSE 96; RESP 17
--- NOTE | 2021-07-02 22:51 | DI.RAD.S_ITS ---
PROCEDURE: XR CHEST 1V INDICATIONS: suspected sepsis TECHNIQUE: One view of the chest was acquired. COMPARISON: [facility], CR, XR CHEST 1V, 06/03/2021, 2:16. FINDINGS: Surgical changes and devices: None. Lungs and pleura: Lungs are clear. No pleural effusions or pneumothorax. Mediastinum: Mediastinal contours appear normal. Heart size is normal. Bones and chest wall: No suspicious bony lesions. Overlying soft tissues appear unremarkable. IMPRESSION: No acute process. Dictated by: Gary Kirkpatrick M.D. on 07/02/2021 at 23:43 Approved by: Gary Kirkpatrick M.D. on 07/02/2021 at 23:43
--- NOTE | 2021-07-02 22:51 | DI.CT.S_ITS ---
PROCEDURE: CT HEAD/BRAIN WO CON INDICATIONS: altered level of conscousness TECHNIQUE: Noncontrast 4.5 mm thick angled axial sections acquired from the foramen magnum to the vertex, with coronal and sagittal reformats. For radiation dose reduction, the following was used: automated exposure control, adjustment of mA and/or kV according to patient size. COMPARISON: [facility], CT, CT HEAD/BRAIN WO CON, 10/22/2020, 0:45. FINDINGS: Image quality: Excellent. CSF spaces: Basal cisterns are patent. No extra-axial fluid collections. The ventricles are symmetric in size and shape. Brain: No intracranial bleeds or masses. There is cerebral volume loss for age, with resultant ventricular and sulcal prominence. There are periventricular and deep white matter chronic small vessel ischemic changes. There is intracranial internal carotid artery atherosclerosis. Skull and face: Calvarium and visualized facial bones appear intact, without suspicious lesions. Sinuses: Visualized sinuses and mastoids are clear. IMPRESSION: No acute intracranial abnormality Dictated by: Gary Kirkpatrick M.D. on 07/02/2021 at 23:46 Approved by: Gary Kirkpatrick M.D. on 07/02/2021 at 23:46
[2021-07-02 23:00] VITALS: PULSE 96; RESP 24; O2SAT 99
--- NOTE | 2021-07-02 23:06 | ED.AMS ---
HPI - Altered Mental Status General Chief Complaint: Altered Mental Status Stated Complaint: ALOC Time Seen by Provider: 07/02/21 22:59 Source: EMS and other Mode of arrival: EMS History of Present Illness HPI narrative: Patient brought in by ambulance from assisted living/rehab [place]. Report given to EMS that patient has been confused not at baseline all day. Currently patient is awake alert. Denies any pain. He is awake alert oriented to self date of month and worries that. Denies any nausea or vomiting. Denies any limb pain. Related Data Home Medications Medication Instructions Recorded Confirmed acetaminophen 325 mg tablet 650 mg PO Q4HP PRN #0 06/29/17 03/07/19 aluminum-mag hydroxide-simethicone 30 ml PO Q4H PRN #0 06/29/17 03/07/19 400 mg-400 mg-40 mg/5 mL oral susp (Maalox Maximum Strength) atorvastatin 80 mg tablet 80 mg PO BEDTIME #0 06/29/17 03/07/19 bisacodyl 10 mg rectal suppository 10 mg [place] PRN PRN #0 06/29/17 03/07/19 bisacodyl 5 mg tablet,delayed 10 mg PO PRN PRN #0 06/29/17 03/07/19 release (Fleet Laxative (bisacodyl)) clopidogrel 75 mg tablet 75 mg PO DAILY #0 06/29/17 03/07/19 levothyroxine 50 mcg tablet 50 mcg PO QPM #0 06/29/17 03/07/19 metoprolol succinate 25 mg 12.5 mg PO DAILY #0 06/29/17 03/07/19 tablet,extended release 24 hr (Toprol XL) omeprazole 20 mg capsule,delayed 20 mg PO DAILY #0 06/29/17 03/07/19 release sennosides 8.6 mg tablet (senna) 17.2 mg PO BEDTIME #0 06/29/17 03/07/19 artifi.tears(hypromellose)(PF) 0.3 2 drp EYE-BOTH BID ml 11/25/17 03/07/19 % eye drops baclofen 10 mg tablet 10 mg PO TID 11/25/17 03/07/19 insulin aspart U-100 100 unit/mL 100 unit SUBCUT QID 11/25/17 03/07/19 (3 mL) subcutaneous pen (Novolog Flexpen U-100 Insulin aspart) docusate sodium 100 mg capsule 2 tab PO BID 03/05/18 03/07/19 magnesium hydroxide 400 mg/5 mL 30 ml PO PRN PRN 03/05/18 03/07/19 oral suspension (Milk of Magnesia) ammonium lactate 12 % lotion 1 applic TOPICAL BID PRN 08/13/18 03/07/19 calcium carbonate 600 mg calcium 1,200 mg PO QPM 08/13/18 03/07/19 (1,500 mg) tablet cholecalciferol (vitamin D3) 25 1,000 unit PO QPM 08/13/18 03/07/19 mcg (1,000 unit) capsule fluticasone propionate 50 1 spray INTRANASAL BID 08/13/18 03/07/19 mcg/actuation nasal spray,suspension guaifenesin 600 mg tablet, 600 mg PO Q12H 08/13/18 03/07/19 extended release 12 hr (Mucinex) hydroxyzine pamoate 25 mg capsule 25 - 50 mg PO Q6H PRN 08/13/18 03/07/19 insulin glargine 100 unit/mL (3 8 unit SUBCUT BID 08/13/18 03/07/19 mL) subcutaneous pen mirtazapine 15 mg tablet 22.5 mg PO BEDTIME 08/13/18 03/07/19 ondansetron 4 mg disintegrating 4 mg PO Q4H PRN 08/13/18 03/07/19 tablet vitamin B complex (B 1 tab PO QPM 08/13/18 03/07/19 Complex-Vitamin B12) cetirizine 10 mg tablet 10 mg PO DAILY PRN 01/25/19 03/07/19 sodium chloride 0.65 % nasal spray 1 spray INTRANASAL Q6H PRN 01/25/19 03/07/19 aerosol (Saline Mist) aspirin 325 mg tablet,delayed 325 mg PO DAILY 02/20/19 03/07/19 release furosemide 40 mg tablet 40 mg PO DAILY 02/20/19 03/07/19 duloxetine 60 mg capsule,delayed 60 mg PO BEDTIME 03/02/19 03/07/19 release glucagon (human recombinant) 1 mg 1 mg IM PRN PRN MDD ` 03/02/19 03/07/19 solution for injection (Glucagon Emergency Kit) nystatin 100,000 unit/gram topical 1 applic TOPICAL BID PRN 03/02/19 03/07/19 cream Alcohol Liquor 1 ea PO DAILY PRN 03/07/19 03/07/19 Health Shake 1 ea PO QPM 03/07/19 03/07/19 bisacodyl 5 mg tablet,delayed 5 mg PO PRN PRN 03/07/19 03/07/19 release cefdinir 300 mg capsule 300 mg PO [id number] 03/07/19 03/07/19 dextromethorphan polistirex 30 10 ml PO Q12H PRN 03/07/19 03/07/19 mg/5 mL oral susp ext.release 12hr (Delsym 12 hour) doxycycline hyclate 100 mg capsule 100 mg PO [id number] 03/07/19 03/07/19 ibuprofen 400 mg tablet 400 mg PO Q4H PRN 03/07/19 03/07/19 oxycodone 5 mg tablet 5 mg PO Q4H PRN 03/07/19 03/07/19 Previous Rx's Medication Instructions Recorded clonazepam 0.5 mg tablet 0.75 mg PO Q6H PRN #20 tab 03/05/19 oxycodone 20 mg tablet,crush 20 mg PO Q8H #20 tab 03/05/19 resistant,extended release 12 hr (OxyContin) bacitracin 500 unit/gram topical 1 applic TOPICAL BID #28 g 01/01/21 ointment bacitracin 500 unit/gram topical 1 applic TOPICAL Q12H #28 g 01/01/21 ointment bacitracin zinc 500 unit/gram 1 applic TOPICAL Q12H #28 g 01/01/21 topical ointment fluconazole 150 mg tablet 150 mg PO DAILY #7 tab 01/01/21 (Diflucan) fluconazole 150 mg tablet 150 mg PO DAILY #7 tab 01/01/21 (Diflucan) fluconazole 150 mg tablet 150 mg PO DAILY #7 tab 01/01/21 (Diflucan) lidocaine 5 % topical gel 1 ea TOPICAL QID #10 g 01/01/21 metoclopramide HCl 10 mg tablet 10 mg PO Q6H PRN #20 tab 03/08/21 (Reglan) Allergies Allergy/AdvReac Type Severity Reaction Status Date / Time amitriptyline Allergy Verified 03/08/21 09:07 pollen extracts Allergy Verified 03/08/21 09:07 codeine [CODEINE] AdvReac Unknown nausea Verified 03/08/21 09:07 Review of Systems Review of Systems Narrative: GENERAL: Denies chills, fatigue, malaise, fever, sweats. HEENT: Denies sinus pain, ear pain, sore throat RESPIRATORY: Denies dyspnea, cough CARDIOVASCULAR: Denies chest pain, palpitations GASTROINTESTINAL: Denies nausea, vomiting, abdominal pain : Denies dysuria, frequency, hematuria MUSCULOSKELETAL: denies muscle or bony pain SKIN: Denies rash, skin lesions NEUROLOGIC: Denies weakness, numbness, positive altered mental status, negative for headache/slurred speech/seizure ROS Unobtainable: All systems reviewed & are unremarkable except as noted in HPI and below Patient History Medical History C3 spinal cord injury C4 spinal cord injury CVA (cerebral vascular accident) Diabetes Gastroesophageal reflux disease Hyperlipidemia Hypertension Surgical History History of carotid endarterectomy History of coronary artery stent placement No pertinent past surgical history Family History Mother Cancer Father Lung disease Hyperlipidemia Brother Lupus Social History household members: caregiver Smoking Status: Current every day smoker alcohol intake: current substance use type: does not use additional social history: He currently resides in He currently resides in [facility]. Smoking Status: Current every day smoker tobacco type: cigarettes alcohol intake frequency: holidays/special occasions only Substance Use Type: does not use Exam Narrative Exam Narrative: GENERAL: in no distress, not toxic not dyspneic HEAD: Normocephalic. EYES: Pupils equal round No scleral icterus. ENT: Mucous membranes dry, dry lips NECK: Trachea midline. CARDIOVASCULAR: Regular rate and rhythm without murmurs RESPIRATORY: Clear to auscultation. Breath sounds equal bilaterally. No wheezes, rales, or rhonchi. GASTROINTESTINAL: Abdomen soft, non-tender EXTREMITIES: No gross deformities. On right-sided below-knee amputation. Stump is warm and soft. No erythema. BACK: No flank tenderness. NEURO: AOx4. Clear speech no facial droop light touch intact bilateral face hands. SKIN: Warm and dry PSYCH: Not anxious, is cooperative Initial Vital Signs Initial Vital Signs: Vital Signs Temperature 98.0 F 07/02/21 22:47 Pulse Rate 98 H 07/02/21 22:47 Respiratory Rate 20 07/02/21 22:47 Blood Pressure 165/76 H 07/02/21 22:47 Pulse Oximetry 98 07/02/21 22:47 Course Course Course Narrative: No new issues during course of stay Decision to Admit Date: 07/03/21 Decision to Admit time: 00:19 Orders Ordered: ED Orders 07/02/21 22:51 CT head/brain wo con Stat XR chest 1V Stat Blood Culture Stat EKG-12 Lead Stat RT Consult Eval and Treat NOW 07/02/21 22:52 COVID19 -Nasal swab/Pre-Proc Stat 07/02/21 22:54 Urinalysis and Microscopic Stat Urine Culture Stat 07/02/21 23:31 Complete Blood Count AUTO DIFF Stat Comprehensive Metabolic Panel Stat Lactate (Lactic Acid) Stat Lipase Stat Procalcitonin Stat Troponin & CK Cardiac Panel Stat Acetaminophen (Acetaminophen 325 Mg Tablet) 650 mg PO Q6HR EUGENE Al Hydrox/Mg Hydrox/Simethicone (Mag Hydrox/Alum/Simeth 30 Ml Udc) 30 ml PO Q6HR PRN PRN Reason: Dyspepsia Atorvastatin Calcium (Atorvastatin 20 Mg Tablet) 80 mg PO BEDTIME EUGENE Baclofen (Baclofen 10 Mg Tablet) 10 mg PO 0600,1500,1800 EUGENE Calcium Carbonate (Calcium Carbonate 500 Mg Tab) 1,000 mg PO Q4HR PRN PRN Reason: Dyspepsia Clonazepam (Clonazepam 0.5 Mg Tablet) 0.75 mg PO Q6H PRN PRN Reason: Anxiety Clopidogrel Bisulfate (Clopidogrel 75 Mg Tablet) 75 mg PO DAILY EUGENE Docusate Sodium (Docusate 100 Mg Capsule) 200 mg PO BID EUGENE Duloxetine HCl (Duloxetine 30 Mg Capsule) 60 mg PO BEDTIME EUGENE Enoxaparin Sodium (Enoxaparin 40 Mg/0.4 Ml Syringe) 40 mg SUBCUT DAILY EUGENE Hydromorphone HCl (Hydromorphone 0.5 Mg Inj) 0.5 mg IV Q4H PRN PRN Reason: Breakthrough pain only (8-10) Hydroxyzine Pamoate (Hydroxyzine Pamoate 25 Mg Capsule) 25 mg PO Q6H PRN PRN Reason: pain/spasms Sodium Chloride (Normal Saline 0.9%) 1,000 mls @ 125 mls/hr IV CONT EUGENE Last Admin: 07/03/21 02:42 Dose: 125 mls/hr Documented by: KALEY Insulin Glargine (Insulin Glargine 100 Unit/Ml 3ml Pen) 8 unit SUBCUT BID [facility] Levothyroxine Sodium (Levothyroxine 50 Mcg Tablet) 50 mcg PO QPM [facility] Metoprolol Succinate (Metoprolol Er 25 Mg Tablet) 12.5 mg PO DAILY [facility] Morphine Sulfate (Morphine 2 Mg/Ml Inj) 2 mg IV Q4H PRN PRN Reason: Breakthrough pain only (8-10) Naloxone HCl (Naloxone 0.4 Mg/Ml Vial) 0.2 mg IV Q2MIN PRN PRN Reason: Opiate Reversal Ondansetron HCl (Ondansetron 4 Mg/2 Ml Inj) 4 mg IV Q8HR PRN PRN Reason: Nausea And Vomiting Oxycodone HCl (Oxycodone Ir 5 Mg Tablet) 5 mg PO Q4H PRN PRN Reason: pain Pantoprazole Sodium (Pantoprazole Dr 20 Mg Tablet) 20 mg PO DAILY [facility] Discontinued Medications Sodium Chloride (Normal Saline 0.9%) 1,000 mls @ 1,000 mls/hr IV BOLUS ONE Stop: 07/02/21 23:50 Last Admin: 07/03/21 00:17 Dose: Not Given Documented by: SELINA Sodium Chloride (Normal Saline 0.9%) 1,000 mls @ 1,000 mls/hr IV BOLUS ONE Stop: 07/03/21 00:56 Last Infusion: 07/03/21 02:40 Dose: 0 mls/hr Documented by: Admin: 07/03/21 00:18 Dose: 1,000 mls/hr Documented by: SELINA Ceftriaxone Sodium 2,000 mg/ (Sodium Chloride) 100 mls @ 200 mls/hr IV NOW ONE Stop: 07/02/21 23:58 Last Infusion: 07/03/21 00:41 Dose: 0 mls/hr Documented by: Admin: 07/03/21 00:17 Dose: 200 mls/hr Documented by: SELINA Lorazepam (Lorazepam 2 Mg/Ml Inj) 0.5 mg IV NOW ONE Stop: 07/03/21 01:50 Last Admin: 07/03/21 01:55 Dose: 0.5 mg Documented by: NESTOR Oxycodone/Acetaminophen (Oxycodone/Acetaminophen 5/325 Tablet) 1 tab PO NOW ONE Stop: 07/03/21 01:16 Last Admin: 07/03/21 01:20 Dose: 1 tab Documented by: NESTOR Consultations Consultation #1: Spoke with hospitalist, Dr. Weeks, will see pt in ER Time: 00:20 Vital Signs Vital signs: Vital Signs - 8 hr 07/02/21 22:47 07/02/21 22:48 07/02/21 23:00 Temperature 98.0 F Pulse Rate 95 H 96 H 96 H Respiratory Rate 24 17 24 Blood Pressure 165/76 H 165/76 H Pulse Oximetry 98 99 07/02/21 23:30 07/02/21 23:33 07/03/21 00:00 Temperature Pulse Rate 92 H 93 H 91 H Respiratory Rate 20 19 25 H Blood Pressure 161/66 H Pulse Oximetry 99 98 95 07/03/21 00:06 07/03/21 00:30 Temperature Pulse Rate 89 90 Respiratory Rate 24 31 H Blood Pressure 115/60 Pulse Oximetry 95 MDM - Altered Mental Status Lab Data Result diagrams: 07/03/21 04:20 07/03/21 04:20 Labs: Lab Results 07/02/21 07/02/21 07/02/21 Range/Units 22:52 22:54 23:31 WBC 13.8 H (4.5-11.0) X10^3/uL RBC 3.86 L (4.5-5.9) X10^6/uL Hgb 9.3 L (13.5-17.5) g/dL Hct 29.2 L (41-53) % MCV 75.8 L (80-100) fL MCH 24.1 L (26-34) PG MCHC 31.7 (30-36) % RDW 15.5 H (11.6-14.8) % Plt Count 416 H (150-400) X10^3/uL Neut % (Auto) 83.6 H (50-75) % Lymph % (Auto) 8.3 L (25-40) % [place] % (Auto) 6.0 (3-14) % Eos % (Auto) 1.7 L (2-4) % Baso % (Auto) 0.4 (0-2) % Neut # (Auto) 26883 H (5674-9693) /uL Lymph # (Auto) 1100 (9944-9623) /uL [place] # (Auto) 800 (0-900) /uL Eos # (Auto) 200 (0-450) /uL Baso # (Auto) 100 (0-100) /uL Sodium (137-145) mmol/L Potassium (3.4-5.1) mmol/L Chloride (98-107) mmol/L Carbon Dioxide (22-32) mmol/L BUN (9-20) mg/dL Creatinine (0.66-1.25) mg/dL Estimated GFR (>60) mL/min BUN/Creatinine Ratio (6-22) Glucose (80-110) mg/dL Lactate (0.7-2.1) mmol/L Calcium (8.4-10.2) mg/dL Total Bilirubin (0.2-1.3) mg/dL AST (17-59) IU/L ALT (<50) IU/L Alkaline Phosphatase (38-126) U/L Total Creatine Kinase (55-170) U/L CK-MB (CK-2) (<2.37) ng/mL CK-MB (CK-2) Rel Index (1.5-5.0) % Troponin I (0.01-0.034) ng/mL Total Protein (6.3-8.2) g/dL Albumin (3.5-5.0) g/dL Globulin (1.7-4.1) g/dL Albumin/Globulin Ratio (1.0-2.8) Lipase (23-300) U/L Procalcitonin (<0.5) ng/mL Urine Color Yellow Urine Appearance Clear Urine pH 7.0 (4.5-8.0) Ur Specific [facility] 1.010 (1.000-1.035) Urine Protein Negative (Negative) Urine Glucose (UA) 2+ H (Negative) g/dL Urine Ketones Negative (NEGATIVE) Urine Occult Blood Trace-intact (Negative) Urine Nitrate Positive H (Negative) Urine Bilirubin Negative (NEGATIVE) Urine Urobilinogen 0.2 (0.2) E.U./dL Ur Leukocyte Esterase 1+ H (NEGATIVE) Urine RBC 0-1/hpf (0-5/HPF) Urine WBC 1-5/hpf (0-5/HPF) Urine Bacteria Moderate (10-30) H (None) Ur Culture Indicated? Specimen cultured SARS-CoV-2 (PCR) Negative (Negative) 07/02/21 07/02/21 Range/Units 23:31 23:31 WBC (4.5-11.0) X10^3/uL RBC (4.5-5.9) X10^6/uL Hgb (13.5-17.5) g/dL Hct (41-53) % MCV (80-100) fL MCH (26-34) PG MCHC (30-36) % RDW (11.6-14.8) % Plt Count (150-400) X10^3/uL Neut % (Auto) (50-75) % Lymph % (Auto) (25-40) % [place] % (Auto) (3-14) % Eos % (Auto) (2-4) % Baso % (Auto) (0-2) % Neut # (Auto) (3876-5502) /uL Lymph # (Auto) (5226-7222) /uL [place] # (Auto) (0-900) /uL Eos # (Auto) (0-450) /uL Baso # (Auto) (0-100) /uL Sodium 140 (137-145) mmol/L Potassium 3.4 (3.4-5.1) mmol/L Chloride 104 (98-107) mmol/L Carbon Dioxide 30 (22-32) mmol/L BUN 14 (9-20) mg/dL Creatinine 0.69 (0.66-1.25) mg/dL Estimated GFR > 60.0 (>60) mL/min BUN/Creatinine Ratio 20.3 (6-22) Glucose 152 H (80-110) mg/dL Lactate 2.2 H (0.7-2.1) mmol/L Calcium 8.6 (8.4-10.2) mg/dL Total Bilirubin 0.3 (0.2-1.3) mg/dL AST 27 (17-59) IU/L ALT 19 (<50) IU/L Alkaline Phosphatase 149 H (38-126) U/L Total Creatine Kinase 277 H (55-170) U/L CK-MB (CK-2) 2.87 H (<2.37) ng/mL CK-MB (CK-2) Rel Index 1.0 L (1.5-5.0) % Troponin I < 0.012 (0.01-0.034) ng/mL Total Protein 6.9 (6.3-8.2) g/dL Albumin 3.7 (3.5-5.0) g/dL Globulin 3.2 (1.7-4.1) g/dL Albumin/Globulin Ratio 1.2 (1.0-2.8) Lipase 16 L (23-300) U/L Procalcitonin 0.05 (<0.5) ng/mL Urine Color Urine Appearance Urine pH (4.5-8.0) Ur Specific [facility] (1.000-1.035) Urine Protein (Negative) Urine Glucose (UA) (Negative) g/dL Urine Ketones (NEGATIVE) Urine Occult Blood (Negative) Urine Nitrate (Negative) Urine Bilirubin (NEGATIVE) Urine Urobilinogen (0.2) E.U./dL Ur Leukocyte Esterase (NEGATIVE) Urine RBC (0-5/HPF) Urine WBC (0-5/HPF) Urine Bacteria (None) Ur Culture Indicated? SARS-CoV-2 (PCR) (Negative) MDM Narrative Medical decision making narrative: Appropriate for admission. Patient has propensity for sepsis. Multiple infections in the past. Does have elevated lactic acid as well as white cell count here. Patient agrees for admit. Review with hospitalist and will see patient. Discharge Plan Departure Patient Disposition: Admitted as Observation Clinical Impression: Acute lower UTI Admit Date/Time: 07/03/21 00:41 Admit Provider: Suman Weeks
[2021-07-02 23:18] LABS: COVID19 -Nasal RAPID Negative (Negative)
[2021-07-02 23:30] VITALS: PULSE 92; RESP 20; O2SAT 99
[2021-07-02 23:33] VITALS: BP 161/66; PULSE 93; RESP 19; O2SAT 98
[2021-07-02 23:44] LABS: Appearance Urine UA CLEAR; Bilirubin Urine UA NEGATIVE (NEGATIVE); Color Urine UA YELLOW; Glucose Urine UA 2+ g/dL (Negative); Ketones Urine UA NEGATIVE (NEGATIVE); Leukocyte Esterase Urine UA 1+ (NEGATIVE); Nitrite Urine UA POSITIVE (Negative); Occult Blood Urine UA TRACE-INTACT (Negative); Protein Urine UA NEGATIVE (Negative); Urobilinogen Urine UA 0.2 E.U./dL (0.2)
[2021-07-02 23:45] LABS: Add Manual Diff / Slide Review NO; Basophils Absolute Auto 100 /uL (0-100); Basophils Percent Auto 0.4 % (0-2); Eosinophils Absolute Auto 200 /uL (0-450); Eosinophils Percent Auto 1.7 % (2-4); Hematocrit 29.2 % (41-53); Hemoglobin 9.3 g/dL (13.5-17.5); Lymphocytes Absolute Auto 1100 /uL (1100-4500); Lymphocytes Percent Auto 8.3 % (25-40); Mean Corpuscular HGB Conc 31.7 % (30-36); Mean Corpuscular Hemoglobin 24.1 PG (26-34); Mean Corpuscular Volume 75.8 fL (80-100); Monocytes Absolute Auto 800 /uL (0-900); Neutrophils Absolute Auto 11600 /uL (1500-7000); Neutrophils Percent Auto 83.6 % (50-75); Platelet Count 416 X10^3/uL (150-400); Red Blood Cell Count 3.86 X10^6/uL (4.5-5.9); Red Cell Distribution Width 15.5 % (11.6-14.8); White Blood Cell Count 13.8 X10^3/uL (4.5-11.0)
[2021-07-02 23:53] LABS: Lactate (Lactic Acid) 2.2 mmol/L (0.7-2.1)
[2021-07-02 23:54] LABS: Alanine Aminotransferase 19 IU/L (<50); Albumin 3.7 g/dL (3.5-5.0); Albumin Globulin Ratio 1.2 (1.0-2.8); Alkaline Phosphatase 149 U/L (38-126); Aspartate Aminotransferase 27 IU/L (17-59); BUN Creatinine Ratio 20.3 (6-22); Bilirubin Total 0.3 mg/dL (0.2-1.3); Blood Urea Nitrogen 14 mg/dL (9-20); Calcium 8.6 mg/dL (8.4-10.2); Carbon Dioxide 30 mmol/L (22-32); Chloride 104 mmol/L (98-107); Creatine Kinase 277 U/L (55-170); Estimated Glomerular Filt Rate > 60.0 mL/min (>60); Globulin 3.2 g/dL (1.7-4.1); Glucose 152 mg/dL (80-110); HEMOLYSIS < 15 (0-50); Lipase 16 U/L (23-300); Potassium 3.4 mmol/L (3.4-5.1); Sodium 140 mmol/L (137-145); Total Protein 6.9 g/dL (6.3-8.2)
[2021-07-02 23:56] LABS: RBC Urine 0-1/HPF (0-5/HPF)
[2021-07-02 23:57] LABS: Bacteria Urine Moderate (10-30); Culture Indicated Urine Specimen Cultured; WBC Urine 1-5/HPF (0-5/HPF)
[2021-07-03] VITALS (33 sets, daily range): BP systolic 115–181; BP diastolic 58–98; PULSE 69–97; RESP 17–31; TEMP 36.1–36.6; O2SAT 90–100; BMI 24.0
[2021-07-03 00:06] LABS: Troponin I < 0.012 ng/mL (0.01-0.034)
[2021-07-03 00:09] LABS: Creatine Kinase MB 2.87 ng/mL (<2.37)
[2021-07-03 00:11] LABS: Procalcitonin 0.05 ng/mL (<0.5)
[2021-07-03] MEDS: cefTRIAXone 2,000 MG in SODIUM CHLORIDE 0.9% 100 ML 200 ML IV ×2 (00:17→21:24)
[2021-07-03] MEDS: SODIUM CHLORIDE 0.9% 1,000 ML 1000 ML IV (00:18)
[2021-07-03] MEDS: OXYCODONE/ACETAMINOPHEN 5/325 TABLET 1 TAB PO (01:20)
[2021-07-03 01:39] LABS: Reflexed Lactate in 2 Hours Y
[2021-07-03] MEDS: LORazepam 2 MG/ML INJ 0.5 MG IV (01:55)
[2021-07-03 01:56] LABS: Lactate 2HR (Lactic Acid Rflx) 1.1 mmol/L (0.7-2.1)
--- NOTE | 2021-07-03 02:19 | PM.HP.1 ---
History of Present Illness History of Present Illness Date Patient Seen: 07/03/21 Time Patient Seen: 01:15 Chief complaint: ALOC Narrative: Pt presents from rehab facility with acute illness found to be septic with likely source urine he does have indwelling chronic catheter in setting of diabetes on insulin. Patient History Medical History C3 spinal cord injury C4 spinal cord injury CVA (cerebral vascular accident) Diabetes Gastroesophageal reflux disease Hyperlipidemia Hypertension Surgical History History of carotid endarterectomy History of coronary artery stent placement No pertinent past surgical history Family & Social History Family History Mother Cancer Father Lung disease Hyperlipidemia Brother Lupus Social History: household members caregiver Tobacco & Substance use: Tobacco type cigarettes Smoking Status Current every day smoker alcohol intake current alcohol intake frequency holiday/special occasion Substance Use Type does not use Meds Home Medications and Allergies Home Medications Medication Instructions Recorded Confirmed Type acetaminophen 325 mg tablet 650 mg PO Q4HP PRN #0 06/29/17 03/07/19 History aluminum-mag hydroxide-simethicone 30 ml PO Q4H PRN #0 06/29/17 03/07/19 History 400 mg-400 mg-40 mg/5 mL oral susp (Maalox Maximum Strength) atorvastatin 80 mg tablet 80 mg PO BEDTIME #0 06/29/17 03/07/19 History bisacodyl 10 mg rectal suppository 10 mg OK PRN PRN #0 06/29/17 03/07/19 History bisacodyl 5 mg tablet,delayed 10 mg PO PRN PRN #0 06/29/17 03/07/19 History release (Fleet Laxative (bisacodyl)) clopidogrel 75 mg tablet 75 mg PO DAILY #0 06/29/17 03/07/19 History levothyroxine 50 mcg tablet 50 mcg PO QPM #0 06/29/17 03/07/19 History metoprolol succinate 25 mg 12.5 mg PO DAILY #0 06/29/17 03/07/19 History tablet,extended release 24 hr (Toprol XL) omeprazole 20 mg capsule,delayed 20 mg PO DAILY #0 06/29/17 03/07/19 History release sennosides 8.6 mg tablet (senna) 17.2 mg PO BEDTIME #0 06/29/17 03/07/19 History artifi.tears(hypromellose)(PF) 0.3 2 drp EYE-BOTH BID ml 11/25/17 03/07/19 History % eye drops baclofen 10 mg tablet 10 mg PO TID 11/25/17 03/07/19 History insulin aspart U-100 100 unit/mL 100 unit SUBCUT QID 11/25/17 03/07/19 History (3 mL) subcutaneous pen (Novolog Flexpen U-100 Insulin aspart) docusate sodium 100 mg capsule 2 tab PO BID 03/05/18 03/07/19 History magnesium hydroxide 400 mg/5 mL 30 ml PO PRN PRN 03/05/18 03/07/19 History oral suspension (Milk of Magnesia) ammonium lactate 12 % lotion 1 applic TOPICAL BID PRN 08/13/18 03/07/19 History calcium carbonate 600 mg calcium 1,200 mg PO QPM 08/13/18 03/07/19 History (1,500 mg) tablet cholecalciferol (vitamin D3) 25 1,000 unit PO QPM 08/13/18 03/07/19 History mcg (1,000 unit) capsule fluticasone propionate 50 1 spray INTRANASAL BID 08/13/18 03/07/19 History mcg/actuation nasal spray,suspension guaifenesin 600 mg tablet, 600 mg PO Q12H 08/13/18 03/07/19 History extended release 12 hr (Mucinex) hydroxyzine pamoate 25 mg capsule 25 - 50 mg PO Q6H PRN 08/13/18 03/07/19 History insulin glargine 100 unit/mL (3 8 unit SUBCUT BID 08/13/18 03/07/19 History mL) subcutaneous pen mirtazapine 15 mg tablet 22.5 mg PO BEDTIME 08/13/18 03/07/19 History ondansetron 4 mg disintegrating 4 mg PO Q4H PRN 08/13/18 03/07/19 History tablet vitamin B complex (B 1 tab PO QPM 08/13/18 03/07/19 History Complex-Vitamin B12) cetirizine 10 mg tablet 10 mg PO DAILY PRN 01/25/19 03/07/19 History sodium chloride 0.65 % nasal spray 1 spray INTRANASAL Q6H PRN 01/25/19 03/07/19 History aerosol (Saline Mist) aspirin 325 mg tablet,delayed 325 mg PO DAILY 02/20/19 03/07/19 History release furosemide 40 mg tablet 40 mg PO DAILY 02/20/19 03/07/19 History duloxetine 60 mg capsule,delayed 60 mg PO BEDTIME 03/02/19 03/07/19 History release glucagon (human recombinant) 1 mg 1 mg IM PRN PRN MDD ` 03/02/19 03/07/19 History solution for injection (Glucagon Emergency Kit) nystatin 100,000 unit/gram topical 1 applic TOPICAL BID PRN 03/02/19 03/07/19 History cream clonazepam 0.5 mg tablet 0.75 mg PO Q6H PRN #20 tab 03/05/19 03/07/19 Rx oxycodone 20 mg tablet,crush 20 mg PO Q8H #20 tab 03/05/19 03/07/19 Rx resistant,extended release 12 hr (OxyContin) Alcohol Liquor 1 ea PO DAILY PRN 03/07/19 03/07/19 History Health Shake 1 ea PO QPM 03/07/19 03/07/19 History bisacodyl 5 mg tablet,delayed 5 mg PO PRN PRN 03/07/19 03/07/19 History release cefdinir 300 mg capsule 300 mg PO [id number] 03/07/19 03/07/19 History dextromethorphan polistirex 30 10 ml PO Q12H PRN 03/07/19 03/07/19 History mg/5 mL oral susp ext.release 12hr (Delsym 12 hour) doxycycline hyclate 100 mg capsule 100 mg PO [id number] 03/07/19 03/07/19 History ibuprofen 400 mg tablet 400 mg PO Q4H PRN 03/07/19 03/07/19 History oxycodone 5 mg tablet 5 mg PO Q4H PRN 03/07/19 03/07/19 History bacitracin 500 unit/gram topical 1 applic TOPICAL BID #28 g 01/01/21 Rx ointment bacitracin 500 unit/gram topical 1 applic TOPICAL Q12H #28 g 01/01/21 Rx ointment bacitracin zinc 500 unit/gram 1 applic TOPICAL Q12H #28 g 01/01/21 Rx topical ointment fluconazole 150 mg tablet 150 mg PO DAILY #7 tab 01/01/21 Rx (Diflucan) fluconazole 150 mg tablet 150 mg PO DAILY #7 tab 01/01/21 Rx (Diflucan) fluconazole 150 mg tablet 150 mg PO DAILY #7 tab 01/01/21 Rx (Diflucan) lidocaine 5 % topical gel 1 ea TOPICAL QID #10 g 01/01/21 Rx metoclopramide HCl 10 mg tablet 10 mg PO Q6H PRN #20 tab 03/08/21 Rx (Reglan) Allergies Allergy/AdvReac Type Severity Reaction Status Date / Time amitriptyline Allergy Verified 03/08/21 09:07 pollen extracts Allergy Verified 03/08/21 09:07 codeine [CODEINE] AdvReac Unknown nausea Verified 03/08/21 09:07 Review of Systems Review of Systems Narrative: all systems reviewed and negative except as otherwise documented in HPI Exam Vital Signs (past 8 hours): - 07/02/21 22:47 07/02/21 22:48 07/02/21 23:00 Temperature 98.0 F Pulse Rate 95 H 96 H 96 H Respiratory Rate 24 17 24 Blood Pressure 165/76 H 165/76 H Pulse Oximetry 98 99 07/02/21 23:30 07/02/21 23:33 07/03/21 00:00 Temperature Pulse Rate 92 H 93 H 91 H Respiratory Rate 20 19 25 H Blood Pressure 161/66 H Pulse Oximetry 99 98 95 07/03/21 00:06 07/03/21 00:30 07/03/21 01:00 Temperature Pulse Rate 89 90 94 H Respiratory Rate 24 31 H 25 H Blood Pressure 115/60 149/98 H Pulse Oximetry 95 07/03/21 01:30 07/03/21 01:31 07/03/21 02:00 Temperature Pulse Rate 96 H 97 H 85 Respiratory Rate 22 24 25 H Blood Pressure 165/71 H Pulse Oximetry 96 95 97 07/03/21 02:01 Temperature Pulse Rate 84 Respiratory Rate 24 Blood Pressure 161/70 H Pulse Oximetry 97 Oxygen Delivery Method Room Air Const General: cooperative and ill appearing [facility] Head: normocephalic and atraumatic Eyes General: appearance normal, both eyes and all related structures Neck Neck: normal visual inspection and full ROM Resp Other: clear to auscultation bilaterally Cardio Other: regular rate and rhythm S1/S2 GI Other: soft nontender normal bowel sounds Other: denson draining dark urine Skin General: no rashes or lesions noted Neuro General: patient alert, patient awake and patient oriented x3 Other: stutters to speak with muscle jerks/shivers Extrem Other: RLE with BKA Psych Appearance: disheveled Mental Status: mental status grossly normal Speech and Movement: slurred speech (with stutter but congnizable) Mood: congruent mood Affect: normal affect Objective Labs Result Diagrams: 07/03/21 04:20 07/03/21 04:20 Labs: Laboratory Results - last 24 hr 07/02/21 07/02/21 07/02/21 22:52 22:54 23:31 WBC 13.8 H RBC 3.86 L Hgb 9.3 L Hct 29.2 L MCV 75.8 L MCH 24.1 L MCHC 31.7 RDW 15.5 H Plt Count 416 H Neut % (Auto) 83.6 H Lymph % (Auto) 8.3 L [place] % (Auto) 6.0 Eos % (Auto) 1.7 L Baso % (Auto) 0.4 Neut # (Auto) 50072 H Lymph # (Auto) 1100 [place] # (Auto) 800 Eos # (Auto) 200 Baso # (Auto) 100 Sodium Potassium Chloride Carbon Dioxide BUN Creatinine Estimated GFR BUN/Creatinine Ratio Glucose Lactate Calcium Total Bilirubin AST ALT Alkaline Phosphatase Total Creatine Kinase CK-MB (CK-2) CK-MB (CK-2) Rel Index Troponin I Total Protein Albumin Globulin Albumin/Globulin Ratio Lipase Procalcitonin Urine Color Yellow Urine Appearance Clear Urine pH 7.0 Ur Specific [place] 1.010 Urine Protein Negative Urine Glucose (UA) 2+ H Urine Ketones Negative Urine Occult Blood Trace-intact Urine Nitrate Positive H Urine Bilirubin Negative Urine Urobilinogen 0.2 Ur Leukocyte Esterase 1+ H Urine RBC 0-1/hpf Urine WBC 1-5/hpf Urine Bacteria Moderate (10-30) H Ur Culture Indicated? Specimen cultured SARS-CoV-2 (PCR) Negative 07/02/21 07/02/21 07/03/21 23:31 23:31 01:40 WBC RBC Hgb Hct MCV MCH MCHC RDW Plt Count Neut % (Auto) Lymph % (Auto) [place] % (Auto) Eos % (Auto) Baso % (Auto) Neut # (Auto) Lymph # (Auto) [place] # (Auto) Eos # (Auto) Baso # (Auto) Sodium 140 Potassium 3.4 Chloride 104 Carbon Dioxide 30 BUN 14 Creatinine 0.69 Estimated GFR > 60.0 BUN/Creatinine Ratio 20.3 Glucose 152 H Lactate 2.2 H 1.1 Calcium 8.6 Total Bilirubin 0.3 AST 27 ALT 19 Alkaline Phosphatase 149 H Total Creatine Kinase 277 H CK-MB (CK-2) 2.87 H CK-MB (CK-2) Rel Index 1.0 L Troponin I < 0.012 Total Protein 6.9 Albumin 3.7 Globulin 3.2 Albumin/Globulin Ratio 1.2 Lipase 16 L Procalcitonin 0.05 Urine Color Urine Appearance Urine pH Ur Specific [place] Urine Protein Urine Glucose (UA) Urine Ketones Urine Occult Blood Urine Nitrate Urine Bilirubin Urine Urobilinogen Ur Leukocyte Esterase Urine RBC Urine WBC Urine Bacteria Ur Culture Indicated? SARS-CoV-2 (PCR) Assessment & Plan Assessment & Plan narrative: #sepsis #UTI in setting of chronic indwelling catheter lactic acidosis with WBC jump, evidently had a tendency to progress to full blown pyelo/urosepsis picture if not treated promptly continue abx and ivf, he reckons these muscle jerks are a reaction to the infection #IDDM with hypoglycemia held lantus yesterday and this morning he was still quite hypoglycemic he reports his home regimen is Lantus 19U qd with SSI with meals continue SSI alone here for now look to resume long acting when he is feeling a bit better and eating #microcytic anemia hgb 9, monitor, adding ferrous gluconate to meds, could be iron deficiency vs ACD #hypothyroid stable continue home levothyroxin 50 #hypertension continue home metoprolol succ 12.5 with prn #HLD stable continue home atorvastatin 80 Code: full MDM: mother Faviola [phone] diet: carb controlled Time Spent With Patient Critical Care time: I spent a total of [] minutes of critical care time on this patient's care today; this time is exclusive of procedural time.
[2021-07-03] MEDS: SODIUM CHLORIDE 0.9% 1,000 ML 125 ML IV ×2 (02:42→13:05)
[2021-07-03 04:33] LABS: Add Manual Diff / Slide Review NO; Basophils Absolute Auto 100 /uL (0-100); Basophils Percent Auto 0.9 % (0-2); Eosinophils Absolute Auto 100 /uL (0-450); Eosinophils Percent Auto 1.2 % (2-4); Hematocrit 27.2 % (41-53); Hemoglobin 8.7 g/dL (13.5-17.5); Lymphocytes Absolute Auto 1400 /uL (1100-4500); Lymphocytes Percent Auto 12.3 % (25-40); Mean Corpuscular HGB Conc 31.8 % (30-36); Mean Corpuscular Hemoglobin 23.8 PG (26-34); Mean Corpuscular Volume 74.8 fL (80-100); Monocytes Absolute Auto 1000 /uL (0-900); Monocytes Percent Auto 8.1 % (3-14); Neutrophils Absolute Auto 9100 /uL (1500-7000); Neutrophils Percent Auto 77.5 % (50-75); Platelet Count 387 X10^3/uL (150-400); Red Blood Cell Count 3.64 X10^6/uL (4.5-5.9); Red Cell Distribution Width 15.5 % (11.6-14.8); White Blood Cell Count 11.8 X10^3/uL (4.5-11.0)
[2021-07-03 04:45] LABS: Alanine Aminotransferase 17 IU/L (<50); Albumin 3.4 g/dL (3.5-5.0); Albumin Globulin Ratio 1.1 (1.0-2.8); Alkaline Phosphatase 137 U/L (38-126); Aspartate Aminotransferase 27 IU/L (17-59); BUN Creatinine Ratio 20.7 (6-22); Bilirubin Total 0.3 mg/dL (0.2-1.3); Blood Urea Nitrogen 12 mg/dL (9-20); Calcium 8.2 mg/dL (8.4-10.2); Carbon Dioxide 29 mmol/L (22-32); Chloride 106 mmol/L (98-107); Estimated Glomerular Filt Rate > 60.0 mL/min (>60); Globulin 3.1 g/dL (1.7-4.1); Glucose 48 mg/dL (80-110); HEMOLYSIS < 15 (0-50); Potassium 3.3 mmol/L (3.4-5.1); Sodium 139 mmol/L (137-145); Total Protein 6.5 g/dL (6.3-8.2)
--- NOTE | 2021-07-03 06:03 | PC.NURSE ---
After noting his low blood glucose level,he was given 480 ml OJ that he drank and DR carbajal notified and is coming tioexam him.MR CrumpCristian is alert and co-operative.
[2021-07-03] MEDS: ACETAMINOPHEN 325 MG TABLET 650 MG PO ×3 (06:28→20:04)
--- NOTE | 2021-07-03 06:41 | PC.NURSE ---
He remains alert and ate an egg salad sandwich and drank another oj.HIs blood glucose is now 137.
[2021-07-03 09:23] LABS: Phosphorous 2.9 mg/dL (2.3-3.7)
[2021-07-03] MEDS: BACLOFEN 10 MG TABLET PO ×3 (09:29→19:52)
[2021-07-03] MEDS: CLOPIDOGREL 75 MG TABLET PO (09:29)
[2021-07-03] MEDS: DOCUSATE 100 MG CAPSULE 200 MG PO ×2 (09:29→19:52)
[2021-07-03] MEDS: METOPROLOL ER 25 MG TABLET 12.5 MG PO (09:29)
[2021-07-03] MEDS: OXYCODONE IR 5 MG TABLET PO ×4 (09:30→21:24)
[2021-07-03] MEDS: ENOXAPARIN 40 MG/0.4 ML SYRINGE SUBCUT (09:30)
[2021-07-03] MEDS: PANTOPRAZOLE DR 20 MG TABLET PO (09:30)
[2021-07-03] MEDS: FERROUS SULFATE 325 MG TABLET PO (09:31)
[2021-07-03] MEDS: HYDROMORPHONE 0.5 MG INJ IV (09:40)
[2021-07-03] MEDS: POTASSIUM CHLORIDE 20 MEQ TAB 40 MEQ PO ×2 (16:29→20:03)
[2021-07-03] MEDS: LEVOTHYROXINE 50 MCG TABLET PO (16:47)
--- NOTE | 2021-07-03 16:51 | PC.NURSE ---
Pt med for back pain w/ good relief, IVF NS infusing into the LFA as per orders. Pt had relatively uneventful day. More alert later in day, 1-2 person slide assist to BSC Guzman cath jazminane clear, yellow urine. Call light w/in reach, Bed alarm on for pt safety. Continue w/plan of care.
[2021-07-03] MEDS: MORPHINE 2 MG/ML INJ IV (19:52)
[2021-07-03] MEDS: hydrOXYzine pamoate 25 MG CAPSULE PO (19:52)
[2021-07-03] MEDS: ATORVASTATIN 20 MG TABLET 80 MG PO (20:04)
[2021-07-03] MEDS: DULOXETINE 30 MG CAPSULE 60 MG PO (20:04)
[2021-07-04] VITALS (9 sets, daily range): BP systolic 111–155; BP diastolic 45–122; PULSE 75–91; RESP 16–18; TEMP 36.1–37; O2SAT 96–100
[2021-07-04] MEDS: MORPHINE 2 MG/ML INJ IV ×2 (02:11→06:13)
--- NOTE | 2021-07-04 02:38 | PC.NURSE ---
drowsy, somewhat slurred speech. oriented x 2-3 patient became agitated several times when oxycodone was not brought to him sooner than the 4 hours allotted time frame. it's a tiny little pill, what is that going to do? medicated thru the NOC w/ muscle relaxers, morphine, oxycodone. patient moaning constantly, writhing on the bed, states it hurts it hurts. encouraged patient to change position frequently, as it appears immobility may be contributing to his increased pain. declined offers of ice pack, reposition, snacks, fluids, 1:1 support. continues w/ IVF- LR @ 125/hour via PIV. R bka. HS glucose 234. no ssi orders at this time. had a hypoglycemic episode in ED of 48. frequent safety and room checks. denson patent, draining clear kirsten urine to gravity. VS are stable, CTM for changes. call light w/in reach.
[2021-07-04] MEDS: clonazePAM 0.5 MG TABLET 0.75 MG PO (04:28)
[2021-07-04] MEDS: OXYCODONE IR 5 MG TABLET PO ×3 (04:30→16:22)
[2021-07-04 05:42] LABS: Add Manual Diff / Slide Review NO; Basophils Absolute Auto 100 /uL (0-100); Basophils Percent Auto 1.3 % (0-2); Eosinophils Absolute Auto 300 /uL (0-450); Hemoglobin 9.6 g/dL (13.5-17.5); Lymphocytes Absolute Auto 1700 /uL (1100-4500); Lymphocytes Percent Auto 18.5 % (25-40); Mean Corpuscular Volume 75.1 fL (80-100); Monocytes Absolute Auto 1000 /uL (0-900); Neutrophils Absolute Auto 6200 /uL (1500-7000); Neutrophils Percent Auto 66.2 % (50-75); Platelet Count 405 X10^3/uL (150-400); Red Blood Cell Count 3.99 X10^6/uL (4.5-5.9); Red Cell Distribution Width 15.6 % (11.6-14.8); White Blood Cell Count 9.4 X10^3/uL (4.5-11.0)
[2021-07-04 05:55] LABS: Alanine Aminotransferase 18 IU/L (<50); Albumin 3.6 g/dL (3.5-5.0); Albumin Globulin Ratio 1.2 (1.0-2.8); Alkaline Phosphatase 139 U/L (38-126); Aspartate Aminotransferase 25 IU/L (17-59); BUN Creatinine Ratio 13.6 (6-22); Bilirubin Total 0.4 mg/dL (0.2-1.3); Blood Urea Nitrogen 6 mg/dL (9-20); Calcium 8.6 mg/dL (8.4-10.2); Carbon Dioxide 27 mmol/L (22-32); Chloride 104 mmol/L (98-107); Estimated Glomerular Filt Rate > 60.0 mL/min (>60); Globulin 3.1 g/dL (1.7-4.1); Glucose 224 mg/dL (80-110); HEMOLYSIS < 15 (0-50); Potassium 3.8 mmol/L (3.4-5.1); Sodium 135 mmol/L (137-145); Total Protein 6.7 g/dL (6.3-8.2)
[2021-07-04] MEDS: ACETAMINOPHEN 325 MG TABLET 650 MG PO ×4 (06:12→23:31)
[2021-07-04] MEDS: BACLOFEN 10 MG TABLET PO ×2 (06:12→15:15)
[2021-07-04] MEDS: SODIUM CHLORIDE 0.9% 1,000 ML 125 ML IV ×2 (06:15→14:30)
[2021-07-04] MEDS: PANTOPRAZOLE DR 20 MG TABLET PO (09:25)
[2021-07-04] MEDS: DOCUSATE 100 MG CAPSULE 200 MG PO ×2 (09:26→21:40)
[2021-07-04] MEDS: METOPROLOL ER 25 MG TABLET 12.5 MG PO (09:26)
[2021-07-04] MEDS: FERROUS SULFATE 325 MG TABLET PO (09:26)
[2021-07-04] MEDS: CLOPIDOGREL 75 MG TABLET PO (09:26)
[2021-07-04] MEDS: hydrOXYzine pamoate 25 MG CAPSULE PO ×2 (09:26→16:22)
[2021-07-04] MEDS: ENOXAPARIN 40 MG/0.4 ML SYRINGE SUBCUT (09:30)
--- NOTE | 2021-07-04 10:46 | PC.NURSE ---
Informed Dr Medina of patient having elevated BP (150\100) after morning heart meds were given and that patient was sweaty and having spasms. Dr medina told said monitor patient and not do anything else.
--- NOTE | 2021-07-04 12:08 | DI.CT.S_ITS ---
PROCEDURE: CT HEAD/BRAIN WO CON INDICATIONS: altered MS TECHNIQUE: Noncontrast 4.5 mm thick angled axial sections acquired from the foramen magnum to the vertex, with coronal and sagittal reformats. For radiation dose reduction, the following was used: automated exposure control, adjustment of mA and/or kV according to patient size. COMPARISON: [facility], CT, CT STROKE, 12/20/2020, 13:11. [facility], CT, CT HEAD/BRAIN WO CON, 07/02/2021, 23:02. FINDINGS: Image quality: Good. Repeat acquisition due to motion artifact. CSF spaces: Basal cisterns are patent. No extra-axial fluid collections. Ventricles are normal in size and shape. Brain: No midline shift. No intracranial masses or hemorrhage. No area of hypodensity in a large vascular distribution to suggest acute infarction. Possible small lacunar infarct in the left basal ganglia. Periventricular hypodensity consistent with chronic microvascular ischemic change. Age-related parenchymal loss. Skull and face: Calvarium and visualized facial bones are intact, without suspicious lesions. Sinuses: Visualized sinuses and mastoids are clear. IMPRESSION: No acute intracranial abnormality. Chronic microvascular ischemic disease. Possible prior left basal ganglia lacunar infarct. Dictated by: Lencho Brock M.D. on 07/04/2021 at 12:37 Approved by: Lencho Brock M.D. on 07/04/2021 at 12:41
--- NOTE | 2021-07-04 12:14 | CM.DANOTE ---
DCP: Case received, EMR reviewed and checked on patient. Patient sleeping, difficult to arouse. Was able to get information from Santana MARTINEZ, who is familiar with patient and worked with him at [facility]. DCP assessment completed with information currently available. Patient is a 66 year old male who admitted yesterday morning to the care of the hospitalist team. PCP: BOO Schwartz. Payer: confirmed: [facility]/Medicaid. Patient came to the hospital via ambulance secondary to having decreased LOC. Patient resides at [facility]. Patient had noted some confusion at his facility. Patient was admitted for probable acute metabolic encephalopathy related to urinary tract infection. Patient does have an indwelling catheter. He is also a diabetic, and is on insulin. Attempted to meet with patient, but he was somulent. MICHELLE Dillon, is familiar with patient's baseline at [facility]. Patient is in wheel-chair, he has power chair, uses it to go out and smoke. He is alert and oriented at baseline, he is diabetic as well. She indicated that he is a one person assist at his baseline, and has assistance with showers. P: DCP to continue to follow. [facility] most likely will need to evaluate patient before returning home, but will continue to check in with facility. Kamila Cole RN/Artillery Maintenance Supervisor Discharge Planning/Care Management CM Discharge Assessment Start: 07/04/21 12:00 Freq: Status: Active Protocol: Document 07/04/21 12:01 (Rec: 07/04/21 12:03 [id number]) Discharge Planning Assessment Assigned Engineering Illustrator Kamila Cole RN/Artillery Maintenance Supervisor Advance Directives? Yes: POLST;ADV DIR;POA Advance Directives on File Yes History Provided By Patient,Medical Record Household Members caregiver Type of transporation used prior to Relies on Others admit Facility Name Admitted From: [facility] Willing to Return to Facility? Yes Independent with ADL's Yes Is patient alert and oriented? Yes Needs Assistance With Bathing,Meal Prep,Managing Medications,Home Chores / Shopping Caregiver for Another No Comment Patient uses an electric w/c at [facility] Barriers to Discharge No Discharge Plan Assisted Living Facility Transportation Arrangement Facility Whiteboard Updated in Patient Room with Yes name and ext. # of Engineering Illustrator Review Status In Process Next Review Type Continued Stay Review
[2021-07-04 13:43] LABS: Magnesium 1.7 mg/dL (1.6-2.3)
[2021-07-04] MEDS: MAGNESIUM SULFATE 2 GM/50 ML PIGGYBACK IV (15:05)
--- NOTE | 2021-07-04 16:43 | PM.PN.1 ---
Subjective Subjective Date Patient Seen: 07/04/21 Interval history: 66-year-old male resident of [place] with history of C3-C4 spinal cord injury, right AKA, insulin-requiring diabetes, CVA, chronic pain on chronic opioid therapy, chronic urinary catheter admitted due to acute change in mental status. He is being treated for urinary tract infection. Patient appears confused with altered level of alertness and intermittent left leg myoclonus. Exam Vital Signs (past 8 hours): - 07/04/21 09:24 07/04/21 09:26 07/04/21 10:05 Temperature 96.9 F L Pulse Rate 91 H 91 H Respiratory Rate 16 Blood Pressure 146/108 H 146/100 H 134/45 L Pulse Oximetry 100 07/04/21 10:25 07/04/21 10:33 07/04/21 16:18 Temperature 97.7 F Pulse Rate 84 84 79 Respiratory Rate 16 Blood Pressure 150/122 H 154/102 H 120/81 Pulse Oximetry 96 Oxygen Delivery Method Room Air Oxygen Flow Rate 0 Narrative Exam Narrative: General: Lethargic, confused, unable to answer questions, with myoclonic left leg movements Lungs: Clear Heart: Regular Abdomen: Soft Extremities: Right AKA stump intact, no edema Objective Labs Result Diagrams: 07/04/21 05:16 07/04/21 05:16 Labs: Laboratory Results - last 24 hr 07/04/21 07/04/21 07/04/21 05:16 05:16 13:15 WBC 9.4 RBC 3.99 L Hgb 9.6 L Hct 30.0 L MCV 75.1 L MCH 24.0 L MCHC 32.0 RDW 15.6 H Plt Count 405 H Neut % (Auto) 66.2 Lymph % (Auto) 18.5 L [place] % (Auto) 11.0 Eos % (Auto) 3.0 Baso % (Auto) 1.3 Neut # (Auto) 6200 Lymph # (Auto) 1700 [place] # (Auto) 1000 H Eos # (Auto) 300 Baso # (Auto) 100 Sodium 135 L Potassium 3.8 Chloride 104 Carbon Dioxide 27 BUN 6 L Creatinine 0.44 L Estimated GFR > 60.0 BUN/Creatinine Ratio 13.6 Glucose 224 H D Calcium 8.6 Magnesium 1.7 Total Bilirubin 0.4 AST 25 ALT 18 Alkaline Phosphatase 139 H Total Protein 6.7 Albumin 3.6 Globulin 3.1 Albumin/Globulin Ratio 1.2 PFSH Medical History C3 spinal cord injury C4 spinal cord injury CVA (cerebral vascular accident) Diabetes Gastroesophageal reflux disease Hyperlipidemia Hypertension Surgical History History of carotid endarterectomy History of coronary artery stent placement No pertinent past surgical history Family History Mother Cancer Father Lung disease Hyperlipidemia Brother Lupus Social History household members: caregiver Smoking Status: Current every day smoker alcohol intake: current substance use type: does not use additional social history: He currently resides in He currently resides in [facility]. Assessment & Plan Assessment & Plan narrative: #UTI in setting of chronic indwelling catheter lactic acidosis with WBC jump, evidently had a tendency to progress to full blown pyelo/urosepsis picture if not treated promptly Sepsis ruled out Urine culture growing Gram-negative bacilli Continue Rocephin #Acute encephalopathy Patient with decreased LOC and myoclonus Likely etiology UTI Head CT negative x2 Continue monitoring #IDDM with hypoglycemia held lantus x 24 hours as he was quite hypoglycemic he reports his home regimen is Lantus 19U qd with SSI with meals continue SSI Now hyperglycemic, restart lower dose Lantus 10 units q.p.m. #microcytic anemia hgb 9, monitor, Check iron studies #hypothyroid stable continue home levothyroxin 50 #HLD stable continue home atorvastatin 80 # chronic diuretic without known history of CHF Patient hydrated Resume patient's furosemide 80 mg q.a.m. and oral potassium Code: full MDM: mother Faviola [phone] diet: carb controlled Time Spent With Patient Critical Care time: I spent a total of [] minutes of critical care time on this patient's care today; this time is exclusive of procedural time.
[2021-07-04] MEDS: INSULIN LISPRO 100 UNIT/ML 3ML VIAL SUBCUT (16:56)
[2021-07-04] MEDS: NICOTINE 21 MG PATCH TOP (17:53)
[2021-07-04 19:42] LABS: HEMOLYSIS < 15 (0-50); Iron 20 ug/dL (49-181)
[2021-07-04 19:54] LABS: Percent Iron Saturation 6 % (20-50); Total Iron Binding Capacity 330 ug/dL (261-462); Transferrin 241 mg/dL (206-381)
[2021-07-04] MEDS: HYDROMORPHONE 0.5 MG INJ IV (20:07)
[2021-07-04 20:18] LABS: Ferritin 12 ng/mL (18-464)
[2021-07-04] MEDS: ATORVASTATIN 20 MG TABLET 80 MG PO (21:38)
[2021-07-04] MEDS: SENNOSIDES 8.6 MG TABLET 17.2 MG PO (21:38)
[2021-07-04] MEDS: TAMSULOSIN 0.4 MG CAPSULE 0.8 MG PO (21:42)
[2021-07-04] MEDS: DULOXETINE 30 MG CAPSULE 60 MG PO (21:42)
[2021-07-04] MEDS: GABAPENTIN 600 MG TABLET PO (21:42)
[2021-07-04] MEDS: MIRTAZAPINE 15 MG TABLET 30 MG PO (21:43)
[2021-07-04] MEDS: SODIUM CHLORIDE 0.9% FLUSH 10 ML IV (21:44)
[2021-07-04] MEDS: OXYCODONE IR 10 MG TABLET PO (21:44)
[2021-07-04] MEDS: INSULIN GLARGINE 100 UNIT/ML 3ML PEN 10 UNIT SUBCUT (21:45)
[2021-07-04] MEDS: cefTRIAXone 1,000 MG in SODIUM CHLORIDE 0.9% 100 ML 200 ML IV (22:50)
[2021-07-05] MEDS: OXYCODONE IR 5 MG TABLET PO ×2 (01:13→10:02)
[2021-07-05 03:10] VITALS: BP 118/70; PULSE 80; RESP 18; TEMP 36.1; O2SAT 99
[2021-07-05] MEDS: HYDROMORPHONE 0.5 MG INJ IV ×2 (03:59→07:53)
--- NOTE | 2021-07-05 05:23 | PC.NURSE ---
Shift note: Patient was alert and oriented, often times agitated, anxious and restless, complained low back pain then headache then pain at the denson cath insertion site, due pain medication given, verbalized minimal relief and often times cussed whenever provided alternatives to pain relief. Afebrile, vital signs within acceptable limits. Patient denies short of breath. Denson cath in placed with adequate urine output, patient has attempted to pulled out his denson cath, catheter placement confirmed and secured, instructed patient to not pull-out his catheter as this may cause trauma, bleeding and poses further risk of infection.
[2021-07-05 05:35] LABS: Add Manual Diff / Slide Review NO; Basophils Absolute Auto 100 /uL (0-100); Basophils Percent Auto 0.8 % (0-2); Eosinophils Absolute Auto 200 /uL (0-450); Eosinophils Percent Auto 3.5 % (2-4); Hematocrit 28.8 % (41-53); Hemoglobin 9.3 g/dL (13.5-17.5); Lymphocytes Absolute Auto 2000 /uL (1100-4500); Lymphocytes Percent Auto 28.7 % (25-40); Mean Corpuscular HGB Conc 32.2 % (30-36); Mean Corpuscular Hemoglobin 23.7 PG (26-34); Mean Corpuscular Volume 73.6 fL (80-100); Monocytes Absolute Auto 700 /uL (0-900); Monocytes Percent Auto 9.7 % (3-14); Neutrophils Absolute Auto 4100 /uL (1500-7000); Neutrophils Percent Auto 57.3 % (50-75); Platelet Count 425 X10^3/uL (150-400); Red Blood Cell Count 3.92 X10^6/uL (4.5-5.9); Red Cell Distribution Width 15.4 % (11.6-14.8); White Blood Cell Count 7.1 X10^3/uL (4.5-11.0)
[2021-07-05 05:43] LABS: Alanine Aminotransferase 17 IU/L (<50); Albumin 3.6 g/dL (3.5-5.0); Albumin Globulin Ratio 1.2 (1.0-2.8); Alkaline Phosphatase 133 U/L (38-126); Aspartate Aminotransferase 24 IU/L (17-59); BUN Creatinine Ratio 15.8 (6-22); Bilirubin Total 0.3 mg/dL (0.2-1.3); Blood Urea Nitrogen 9 mg/dL (9-20); Calcium 8.6 mg/dL (8.4-10.2); Carbon Dioxide 26 mmol/L (22-32); Chloride 104 mmol/L (98-107); Estimated Glomerular Filt Rate > 60.0 mL/min (>60); Globulin 3.1 g/dL (1.7-4.1); Glucose 176 mg/dL (80-110); HEMOLYSIS < 15 (0-50); Potassium 3.3 mmol/L (3.4-5.1); Sodium 137 mmol/L (137-145); Total Protein 6.7 g/dL (6.3-8.2)
[2021-07-05] MEDS: ACETAMINOPHEN 325 MG TABLET 650 MG PO ×2 (05:45→13:42)
[2021-07-05] MEDS: LEVOTHYROXINE 50 MCG TABLET PO (05:45)
[2021-07-05 07:45] VITALS: PULSE 73; RESP 18; TEMP 36.3; O2SAT 95
[2021-07-05] MEDS: INSULIN LISPRO 100 UNIT/ML 3ML VIAL SUBCUT ×3 (07:57→20:39)
[2021-07-05] MEDS: CIPROFLOXACIN 250 MG TABLET 750 MG PO (08:59)
[2021-07-05] MEDS: SERTRALINE 50 MG TABLET PO (09:00)
[2021-07-05] MEDS: ENOXAPARIN 40 MG/0.4 ML SYRINGE SUBCUT (09:00)
[2021-07-05] MEDS: CLOPIDOGREL 75 MG TABLET PO (09:00)
[2021-07-05] MEDS: PANTOPRAZOLE DR 20 MG TABLET 40 MG PO (09:00)
[2021-07-05] MEDS: DOCUSATE 100 MG CAPSULE 200 MG PO ×2 (09:01→20:47)
[2021-07-05] MEDS: ASPIRIN EC 81 MG TABLET PO (09:01)
[2021-07-05] MEDS: OXYCODONE IR 10 MG TABLET PO ×2 (09:02→10:57)
[2021-07-05] MEDS: polyethylene glycoL 3350 17 GM POWD.PACK PO (09:02)
[2021-07-05] MEDS: GABAPENTIN 600 MG TABLET PO (09:03)
[2021-07-05] MEDS: SODIUM CHLORIDE 0.9% FLUSH 10 ML IV ×2 (09:04→20:45)
[2021-07-05] MEDS: NICOTINE 21 MG PATCH TOP (09:04)
[2021-07-05] MEDS: MAGNESIUM OXIDE 400 MG TABLET PO (09:05)
[2021-07-05] MEDS: POTASSIUM CHLORIDE 20 MEQ TAB 40 MEQ PO (09:17)
--- NOTE | 2021-07-05 10:46 | PC.NURSE ---
Addendum entered by Josephine Kahn R.N. 07/05/21 19:18: Patient much happier after receiving his normal medication regimen. He has not needed any iv dilaudid. Patient only put out 225cc of urine in his denson bag. aware and states that we need to push fluids on patient more. Original Note: Patient is alert and oriented x3, he is continuously on his call ware asking for pain medication. He was given iv dilaudid around 0800, 10mg of oxycodone around 0930 and an additional 5mg of oxycodone. He states that he takes 20mg of oxycodone every few hours. Dr. Medina just in patients room and talked to patient, he has put the proper dosage of pain medication that patient takes at home. Ray had a r.kaylynna 3 weeks ago up in [place] and states that a vascular surgeon performed the surgery. He sais that he only transfers to the chair and bed, he does not have a prosthetic leg yet. Site at [facility] wn. Denson putting out a small amount of urine this morning, patient bladder scanned for 30cc of urine. We are encouraging him to drink more fluids. He has drank 2 cups of coffee, and some miralax. Just eating his breakfast and he is calm at this time.
[2021-07-05] MEDS: OXYBUTYNIN 5 MG TABLET PO (10:57)
--- NOTE | 2021-07-05 11:01 | CM.DPC ---
CM met with Dr. Medina during Am rounds and he stated the patient is ready for discharge to day. CM attempted x4 to call [employer] [facility] and left multiple messages and have not had a call back. CM called [phone] option 1 and extension [phone] with out and success. CM will continue to work to get a hold of [employer] [facility] to facilitate patients DC back to [facility]. Chiquis Arambula RNline construction superintendent
[2021-07-05] MEDS: OXYCODONE IR 10 MG TABLET 20 MG PO ×3 (13:42→20:46)
--- NOTE | 2021-07-05 14:45 | PM.PN.1 ---
Subjective Subjective Date Patient Seen: 07/05/21 Interval history: 66-year-old male resident of [place] with history of C3-C4 spinal cord injury, right AKA, insulin-requiring diabetes, CVA, chronic pain on chronic opioid therapy, chronic urinary catheter admitted due to acute change in mental status.? He is being treated for urinary tract infection.? Urine culture grew Pseudomonas. Patient with improvement in mental status which appears back to baseline. However he is complaining of a lot of pain in his neck area as well as pain in his bladder. Inadvertently we were not giving him his usual amount of oxycodone and this has been rectified. Exam Vital Signs (past 8 hours): - 07/05/21 07:45 Temperature 97.3 F L Pulse Rate 73 Respiratory Rate 18 Pulse Oximetry 95 Oxygen Delivery Method Room Air Oxygen Flow Rate 0 Narrative Exam Narrative: General alert and cooperative but complaining of uncontrolled pain Breathing nonlabored Abdomen nondistended but tender over bladder Extremities with unremarkable AKA stump on the right and no edema on the left Neurological much improved cognition Objective Labs Result Diagrams: 07/05/21 05:10 07/05/21 05:10 Labs: Laboratory Results - last 24 hr 07/04/21 07/04/21 07/05/21 05:16 05:16 05:10 WBC 7.1 RBC 3.92 L Hgb 9.3 L Hct 28.8 L MCV 73.6 L MCH 23.7 L MCHC 32.2 RDW 15.4 H Plt Count 425 H Neut % (Auto) 57.3 Lymph % (Auto) 28.7 [place] % (Auto) 9.7 Eos % (Auto) 3.5 Baso % (Auto) 0.8 Neut # (Auto) 4100 Lymph # (Auto) 2000 [place] # (Auto) 700 Eos # (Auto) 200 Baso # (Auto) 100 Sodium Potassium Chloride Carbon Dioxide BUN Creatinine Estimated GFR BUN/Creatinine Ratio Glucose Calcium Iron 20 L TIBC 330 % Saturation 6 L Transferrin 241 Ferritin 12 L Total Bilirubin AST ALT Alkaline Phosphatase Total Protein Albumin Globulin Albumin/Globulin Ratio 07/05/21 05:10 WBC RBC Hgb Hct MCV MCH MCHC RDW Plt Count Neut % (Auto) Lymph % (Auto) [place] % (Auto) Eos % (Auto) Baso % (Auto) Neut # (Auto) Lymph # (Auto) [place] # (Auto) Eos # (Auto) Baso # (Auto) Sodium 137 Potassium 3.3 L Chloride 104 Carbon Dioxide 26 BUN 9 Creatinine 0.57 L Estimated GFR > 60.0 BUN/Creatinine Ratio 15.8 Glucose 176 H Calcium 8.6 Iron TIBC % Saturation Transferrin Ferritin Total Bilirubin 0.3 AST 24 ALT 17 Alkaline Phosphatase 133 H Total Protein 6.7 Albumin 3.6 Globulin 3.1 Albumin/Globulin Ratio 1.2 PFSH Medical History C3 spinal cord injury C4 spinal cord injury CVA (cerebral vascular accident) Diabetes Gastroesophageal reflux disease Hyperlipidemia Hypertension Surgical History History of carotid endarterectomy History of coronary artery stent placement No pertinent past surgical history Family History Mother Cancer Father Lung disease Hyperlipidemia Brother Lupus Social History household members: caregiver Smoking Status: Current every day smoker alcohol intake: current substance use type: does not use additional social history: He currently resides in He currently resides in [facility]. Assessment & Plan Assessment & Plan narrative: # Pseudomonas UTI due to chronic indwelling catheter Sepsis ruled out Cipro 750 mg b.i.d. x1 week Rocephin discontinued Oxybutynin 5 mg q.d. for bladder spasm #Acute metabolic encephalopathy, resolved Patient with decreased LOC and myoclonus Likely etiology UTI Head CT negative x2 #IDDM with hypoglycemia held lantus x 24 hours as he was quite hypoglycemic he reports his home regimen is Lantus 19U qd with SSI with meals continue SSI Now hyperglycemic, restarted lower dose Lantus 10 units q.p.m. # chronic iron deficient anemia hgb 9, monitor, Extent of prior workup unknown, follow-up PCP #hypothyroid stable continue home levothyroxin 50 #HLD stable continue home atorvastatin 80 # congestive heart failure unknown type -CHF listed in medical records Continue holding patient's furosemide 80 mg q.a.m. until p.o. fluid intake has improved replace potassium as needed Patient was ready for discharge back to [place] today. Unfortunately discharge was delayed due to [place] staffing issues over the weekend. Time Spent With Patient Critical Care time: I spent a total of [] minutes of critical care time on this patient's care today; this time is exclusive of procedural time.
[2021-07-05 20:04] VITALS: BP 122/64; PULSE 76; RESP 20; TEMP 36.4; O2SAT 97
[2021-07-05] MEDS: DULOXETINE 30 MG CAPSULE 60 MG PO (20:45)
[2021-07-05] MEDS: TAMSULOSIN 0.4 MG CAPSULE 0.8 MG PO (20:45)
[2021-07-05] MEDS: INSULIN GLARGINE 100 UNIT/ML 3ML PEN 10 UNIT SUBCUT (20:45)
[2021-07-05] MEDS: ATORVASTATIN 20 MG TABLET 80 MG PO (20:47)
[2021-07-05] MEDS: SENNOSIDES 8.6 MG TABLET 17.2 MG PO (20:47)
[2021-07-05] MEDS: MIRTAZAPINE 15 MG TABLET 30 MG PO (20:47)
[2021-07-06] MEDS: ACETAMINOPHEN 325 MG TABLET 650 MG PO ×3 (00:40→17:06)
[2021-07-06] MEDS: CIPROFLOXACIN 250 MG TABLET 750 MG PO ×3 (00:41→20:45)
[2021-07-06] MEDS: OXYCODONE IR 10 MG TABLET 20 MG PO ×5 (00:42→20:50)
[2021-07-06 05:01] VITALS: BP 130/64; PULSE 73; RESP 16; TEMP 36; O2SAT 98
[2021-07-06] MEDS: LEVOTHYROXINE 50 MCG TABLET PO (05:09)
[2021-07-06 07:51] VITALS: BP 141/67; PULSE 74; RESP 18; TEMP 36.4; O2SAT 97
[2021-07-06] MEDS: INSULIN LISPRO 100 UNIT/ML 3ML VIAL SUBCUT ×3 (07:55→17:14)
[2021-07-06] MEDS: CLOPIDOGREL 75 MG TABLET PO (11:44)
[2021-07-06] MEDS: ENOXAPARIN 40 MG/0.4 ML SYRINGE SUBCUT (11:44)
[2021-07-06] MEDS: DOCUSATE 100 MG CAPSULE 200 MG PO ×2 (11:44→20:42)
[2021-07-06] MEDS: ASPIRIN EC 81 MG TABLET PO (11:44)
[2021-07-06] MEDS: PANTOPRAZOLE DR 20 MG TABLET 40 MG PO (11:44)
[2021-07-06] MEDS: NICOTINE 21 MG PATCH TOP (11:45)
[2021-07-06] MEDS: SERTRALINE 50 MG TABLET PO (11:45)
[2021-07-06] MEDS: polyethylene glycoL 3350 17 GM POWD.PACK PO (11:46)
[2021-07-06] MEDS: OXYBUTYNIN 5 MG TABLET PO (11:46)
[2021-07-06] MEDS: SODIUM CHLORIDE 0.9% FLUSH 10 ML IV ×2 (11:46→20:48)
--- NOTE | 2021-07-06 11:58 | PM.PN.1 ---
Subjective Subjective Date Patient Seen: 07/06/21 Interval history: 66-year-old male resident of [place] with history of C3-C4 spinal cord injury, right AKA, insulin-requiring diabetes, CVA, chronic pain on chronic opioid therapy, chronic urinary catheter admitted due to acute change in mental status.? He is being treated for Pseudomonas urinary tract infection.? Confusion has cleared up for last couple of days. Pain control is much better and he is much happier now that he is back on usual dosing of his oxycodone. Bladder spasms also responded to oxybutynin. Exam Vital Signs (past 8 hours): - 07/06/21 05:01 07/06/21 07:51 Temperature 96.8 F L 97.6 F Pulse Rate 73 74 Respiratory Rate 16 18 Blood Pressure 130/64 141/67 H Pulse Oximetry 98 97 Oxygen Delivery Method Room Air Oxygen Flow Rate 0 Narrative Exam Narrative: General: Alert, oriented, cooperative and in no acute distress Objective Labs Result Diagrams: 07/05/21 05:10 07/05/21 05:10 [facility] Medical History C3 spinal cord injury C4 spinal cord injury CVA (cerebral vascular accident) Diabetes Gastroesophageal reflux disease Hyperlipidemia Hypertension Surgical History History of carotid endarterectomy History of coronary artery stent placement No pertinent past surgical history Family History Mother Cancer Father Lung disease Hyperlipidemia Brother Lupus Social History household members: caregiver Smoking Status: Current every day smoker alcohol intake: current substance use type: does not use additional social history: He currently resides in He currently resides in [facility]. Assessment & Plan Assessment & Plan narrative: # Pseudomonas UTI due to chronic indwelling catheter Sepsis ruled out Cipro 750 mg b.i.d. x 1 week Rocephin discontinued Oxybutynin 5 mg q.d. for bladder spasm #Acute metabolic encephalopathy, resolved Patient with decreased LOC and myoclonus Likely etiology UTI Head CT negative x2 #IDDM with hypoglycemia held lantus x 24 hours as he was quite hypoglycemic he reports his home regimen is Lantus 19U qd with SSI with meals continue SSI Now hyperglycemic, back on usual insulin # chronic iron deficient anemia hgb 9, monitor, Extent of prior workup unknown, follow-up PCP #hypothyroid stable continue home levothyroxin 50 #HLD stable continue home atorvastatin 80 # congestive heart failure unknown type, without exacerbation -CHF listed in medical records Continue holding patient's furosemide 80 mg q.a.m. until p.o. fluid intake has improved replace potassium as needed Discharge planned for Wednesday. Patient was ready for discharge back to [place] on Wednesday 07/05.? Unfortunately discharge has been delayed due to [place] staffing issues over the weekend. Time Spent With Patient Critical Care time: I spent a total of [] minutes of critical care time on this patient's care today; this time is exclusive of procedural time.
[2021-07-06] MEDS: INSULIN GLARGINE 100 UNIT/ML 3ML PEN 10 UNIT SUBCUT (12:00)
[2021-07-06 15:16] VITALS: BP 117/58; PULSE 71; RESP 12; TEMP 36.3; O2SAT 97
[2021-07-06] MEDS: ATORVASTATIN 20 MG TABLET 80 MG PO (20:42)
[2021-07-06] MEDS: DULOXETINE 30 MG CAPSULE 60 MG PO (20:42)
[2021-07-06] MEDS: SENNOSIDES 8.6 MG TABLET 17.2 MG PO (20:42)
[2021-07-06] MEDS: MIRTAZAPINE 15 MG TABLET 30 MG PO (20:42)
[2021-07-06] MEDS: TAMSULOSIN 0.4 MG CAPSULE 0.8 MG PO (20:42)
[2021-07-06 21:30] VITALS: BP 165/79; PULSE 77; RESP 18; TEMP 36.7; O2SAT 98
[2021-07-06] MEDS: INSULIN GLARGINE 100 UNIT/ML 3ML PEN 19 UNIT SUBCUT (21:48)
[2021-07-07] MEDS: OXYCODONE IR 10 MG TABLET 20 MG PO ×3 (00:57→12:03)
[2021-07-07] MEDS: ACETAMINOPHEN 325 MG TABLET 650 MG PO ×2 (00:58→05:35)
[2021-07-07 03:30] VITALS: BP 136/61; PULSE 84; RESP 18; TEMP 36.6; O2SAT 97
[2021-07-07] MEDS: LEVOTHYROXINE 50 MCG TABLET PO (05:35)
--- NOTE | 2021-07-07 06:28 | PC.NURSE ---
a/o, much better mood today. calm and cooperative. no sedation noted, patient has been appropriate and expressing his thanks to staff. plans to d/c to [facility] today, no d/c time yet. denson patent, draining clear yellow urine. stayed awake most of the night watching movies, eating snacks and drinking coffee. independant w/ bed mobility, most ADLs. R AKA. medicated thru the night w/ PRN oxycodone per his usual dose. tolerating RA. call light w/in reach.
[2021-07-07] MEDS: CIPROFLOXACIN 250 MG TABLET 750 MG PO (06:51)
[2021-07-07 07:28] VITALS: O2SAT 96
[2021-07-07] MEDS: INSULIN LISPRO 100 UNIT/ML 3ML VIAL SUBCUT ×2 (08:45→12:03)
[2021-07-07] MEDS: ASPIRIN EC 81 MG TABLET PO (08:48)
[2021-07-07] MEDS: CLOPIDOGREL 75 MG TABLET PO (08:48)
[2021-07-07] MEDS: DOCUSATE 100 MG CAPSULE 200 MG PO (08:48)
[2021-07-07] MEDS: PANTOPRAZOLE DR 20 MG TABLET 40 MG PO (08:49)
[2021-07-07] MEDS: MAGNESIUM OXIDE 400 MG TABLET PO (08:49)
[2021-07-07] MEDS: NICOTINE 21 MG PATCH TOP (08:50)
[2021-07-07] MEDS: SODIUM CHLORIDE 0.9% FLUSH 10 ML IV (08:50)
[2021-07-07] MEDS: SERTRALINE 50 MG TABLET PO (08:55)
[2021-07-07] MEDS: OXYBUTYNIN 5 MG TABLET PO (08:55)
--- NOTE | 2021-07-07 10:12 | PM.DS.1 ---
History of Present Illness History of Present Illness Date Patient Seen: 07/07/21 Time Patient Seen: 10:13 Chief complaint: ALOC Narrative: Per Dr. Weeks, Pt presents from rehab facility with acute illness found to be septic with likely source urine he does have indwelling chronic catheter in setting of diabetes on insulin.? Discharge Providers Provider Date of admission: 07/03/21 00:41 Discharge Date: 07/07/21 Primary care physician: BOO Schwartz Discharge provider: Ehsan Nogueira DO Summary Hospital Course Discharge Diagnosis: Please see hospital course by problem list noted below. Hospital Course: # Pseudomonas UTI due to chronic indwelling catheter Sepsis ruled out based on SOFA score. Cipro 750 mg b.i.d. x 1 week recommended, initially ceftriaxone was started but changed to ciprofloxacin after cultures resulted. Oxybutynin 5 mg q.d. for bladder spasm was provided here, can resume home finasteride and tamsulosin on discharge. #Acute metabolic encephalopathy, resolved Patient with decreased LOC and myoclonus Likely etiology UTI Head CT negative x2 #IDDM with hypoglycemia held lantus x 24 hours as he was quite hypoglycemic likely in setting of infection. This improved with above therapies and discharged on home medications. # chronic iron deficient anemia recommend PCP follow up as an outpatient, H/h was stable over the course of admission. #hypothyroid stable continued home levothyroxin 50 #HLD stable continued home atorvastatin 80 # congestive heart failure unknown type, without exacerbation -CHF listed in medical records Continue holding patient's furosemide 80 mg q.a.m. at the time of discharge and can likely resume in a few days if volume overloaded or hypertensive. Discharged back to assisted living facility at discharge. Time Spent with Patient Time spent: Greater than 30 minutes Exam Vital Signs (past 8 hours): - 07/07/21 03:30 07/07/21 07:28 Temperature 97.8 F Pulse Rate 84 Respiratory Rate 18 Blood Pressure 136/61 Pulse Oximetry 97 96 Oxygen Delivery Method Room Air Oxygen Flow Rate 0 Narrative Exam Narrative: General alert and cooperative, no acute distress Breathing nonlabored Abdomen S NT ND Extremities with unremarkable AKA stump on the right and no edema on the left Neurological much improved cognition Objective Labs Result Diagrams: 07/05/21 05:10 07/05/21 05:10 [facility] Medical History C3 spinal cord injury C4 spinal cord injury CVA (cerebral vascular accident) Diabetes Gastroesophageal reflux disease Hyperlipidemia Hypertension Surgical History History of carotid endarterectomy History of coronary artery stent placement No pertinent past surgical history Family History Mother Cancer Father Lung disease Hyperlipidemia Brother Lupus Social History household members: caregiver Smoking Status: Current every day smoker alcohol intake: current substance use type: does not use additional social history: He currently resides in He currently resides in [facility]. Discharge Plan Discharge Plan Patient Disposition: Assisted Living Transfer to: [facility] Provider Discharge Comment: Patient admitted for sepsis due to pseudomonal UTI in setting of chronic indwelling denson catheter. Continue antibiotic for another 5 days. Please note medications were reconciled to the best of my ability at the time of discharge but likely will need continued adjustment after discharge and should be revisited with his primary care team. He should hold lasix for another few days, can likely be restarted in BP improves or weight increases due to fluid retention. Discharge orders & Medications Discharge Orders: Discharge (Order); Ordered 07/07/21 Ordered By: Ehsan Nogueira Prescriptions: New docusate sodium 100 mg Capsule 200 mg PO BID 2 Days Qty: 8 0RF ciprofloxacin HCl 750 mg tablet 750 mg PO 0700,2100 5 Days Qty: 10 0RF Continued atorvastatin 80 MG tablet 80 mg PO BEDTIME Qty: 0 0RF clopidogrel 75 MG tablet 75 mg PO DAILY Qty: 0 0RF levothyroxine 50 MCG tablet 50 mcg PO QPM Qty: 0 0RF acetaminophen 325 MG tablet 650 mg PO Q4HP PRN (Reason: Fever Or Pain) Qty: 0 0RF omeprazole 20 MG capsule,delayed release(DR/EC) 40 mg PO DAILY Qty: 0 0RF finasteride 5 mg tablet 5 mg PO DAILY 0RF tamsulosin 0.4 mg capsule 0.8 mg PO BEDTIME 0RF potassium chloride [Klor-Con M20] 20 mEq tablet,ER particles/crystals 20 meq PO BID 0RF sertraline 50 mg tablet 50 mg PO DAILY 0RF Xtampza ER 18 mg cap,sprinkl,ER12hr(DONT CRUSH) 18 mg PO BID 0RF gabapentin 600 mg tablet 600 mg PO BID 0RF magnesium oxide 400 mg magnesium Tablet 400 mg PO DAILY 0RF alum-mag hydroxide-simeth 200-200-20 mg/5 mL Suspension 10 ml PO DAILY PRN (Reason: Heartburn) 0RF Rx Instructions: 10-20mls lubiprostone [Amitiza] 24 mcg capsule 24 mcg PO BID 0RF aspirin 81 mg tablet,delayed release (DR/EC) 81 mg PO DAILY 0RF oxycodone 5 mg tablet 20 mg PO Q4H PRN (Reason: pain) 7 Days Qty: 40 0RF Rx Instructions: hold if too sedated mirtazapine 15 mg Tablet 30 mg PO BEDTIME 0RF fluticasone propionate 50 mcg/actuation [place],Suspension 1 spray INTRANASAL BID 0RF cholecalciferol (vitamin D3) 1,000 unit Capsule 2,000 unit PO DAILY 0RF hydroxyzine pamoate 25 mg Capsule 25 mg PO Q6H PRN (Reason: pain/spasms) 0RF insulin glargine 100 unit/mL (3 mL) Insulin Pen 19 unit SUBCUT BEDTIME 0RF ondansetron 4 mg Tablet,Disintegrating 4 mg PO Q4H PRN (Reason: Nausea) 0RF Label Comments: 1 - 2 prn nausea ammonium lactate 12 % Lotion 1 applic TOPICAL BID PRN (Reason: Dry Skin) 0RF Glucagon Emergency Kit (human) 1 mg Recon Soln 1 mg IM PRN MDD ` PRN (Reason: blood glucose <60) 0RF duloxetine 60 mg capsule,delayed release(DR/EC) 60 mg PO BEDTIME 0RF nystatin 100,000 unit/gram Cream 1 applic TOPICAL BID PRN (Reason: yeast) 0RF insulin aspart U-100 [Novolog Flexpen U-100 Insulin] 100 unit/mL insulin pen See Rx Instructions .ROUTE .COMPLEX 0RF Rx Instructions: Per [facility] med list, insulin instructions is per Ray is to direct his own dosing of insulin based on what he is about to consume w/ meals artifi.tears(hypromellose)(PF) 0.3 % drops 2 drp EYE-BOTH BID 0RF Changed naloxone 0.4 mg/mL solution 0.4 mg IM Q15-20M PRN (Reason: Opioid Overdose) Qty: 0 0RF bisacodyl 10 MG suppository 10 mg IN DAILY PRN (Reason: Constipation) Qty: 0 0RF polyethylene glycol 3350 17 gram/dose powder 17 g PO DAILY PRN (Reason: Constipation) Qty: 0 0RF Discontinued bisacodyl [Fleet Laxative (bisacodyl)] 5 MG tablet,delayed release (DR/EC) 10 mg PO PRN PRN (Reason: no BM x 3 days ) Qty: 0 0RF furosemide 40 mg tablet 80 mg PO DAILY 0RF metoclopramide HCl [Reglan] 10 mg tablet 10 mg PO Q6H PRN (Reason: nausea and vomiting) Qty: 20 0RF Saline Mist 0.65 % Aerosol,[place] 1 spray INTRANASAL Q6H PRN (Reason: Congestion) 0RF dextromethorphan polistirex [Delsym 12 hour] 30 mg/5 mL Suspension,Extended Rel 12 Hr 10 ml PO Q12H PRN (Reason: Cough) 0RF bisacodyl 5 mg Tablet,Delayed Release (Dr/Ec) 5 mg PO PRN PRN (Reason: no BM x 2 days) 0RF bacitracin zinc 500 unit/gram ointment 1 applic topical Q12H Qty: 28 0RF Follow up/Referrals: Eli Canas ARNP [Primary Care Provider] - Discharge Health Status Precautions: [place] Diet/Activity/Treatments Diet: Diet as Tolerated Activity: As tolerated Catheter: 2-way [place] Discharge Data Primary Care Provider: Eli Canas Attending Provider: Suman Weeks
--- NOTE | 2021-07-07 10:42 | CM.DPC ---
DCP Cont: Called [facility]. Initially left a message for RN, Valerie, regarding patient being ready for discharge. She then called back, and stated that she could come over and asses patient. She checked in and stated, she can accept patient today. Confirmed time of pickle cutter at 1300, he does not need updated COVID swab. Asked her what days she works, since at times, there are patients here on Wednesday and the week-end, and need to return. Valerie indicated, she is the only RN that can assess, that they are not planning on hiring any other RNs. She did indicate, sometimes you can bypass this by speaking to Kwan, their commercial property administrator. Dr. Nogueira printed out orders, will fax them over. Updated white board in main nurses station, and nurse, Elma, was updated. Will fax over orders. They will bring his power chair over. P: Patient is to discharge back to [facility] at 1300. Kamila Cole, RN/[employer] Maintainer
[2021-07-07 11:00] VITALS: BP 121/63; PULSE 71; RESP 19; TEMP 36.3; O2SAT 96
--- NOTE | 2021-07-07 13:47 | PC.NURSE ---
Discharge Note Patient A&O, VSS, RA. No complaints of pain or discomfort. Report given to at RN [facility] PIV discontinued. Patient agreeable to discharge back to facility. All questions/concerns addressed. Patient assisted to dress and transfer into power wheelchair. Patient taken down via wheelchair by staff member from [facility].
== END 2021-07-07 13:15 ==
LOC: ED 07-03 00:21 → AC 07-03 00:42
PROVIDERS: Internal Medicine; Admitting Provider Family Medicine; Emergency Provider Emergency Medicine; Family Provider Nurse Practitioner Family; PCP Registered Nurse; Referring Provider Emergency Medicine; Visit Provider Family Medicine
DX: N39.0 Urinary tract infection, site not specified (principal); T83.511A Infection and inflammatory reaction due to indwelling urethral catheter, initial encounter; G93.41 Metabolic encephalopathy; E11.649 Type 2 diabetes mellitus with hypoglycemia without coma; E03.9 Hypothyroidism, unspecified; I10 Essential (primary) hypertension; E78.5 Hyperlipidemia, unspecified; E87.6 Hypokalemia; B96.5 Pseudomonas (aeruginosa) (mallei) (pseudomallei) as the cause of diseases classified elsewhere; K21.9 Gastro-esophageal reflux disease without esophagitis; D50.9 Iron deficiency anemia, unspecified; F17.200 Nicotine dependence, unspecified, uncomplicated; Z20.822 Contact with and (suspected) exposure to COVID-19; Z79.4 Long term (current) use of insulin
CPT/HCPCS: 36415; 70450; 71045; 80053; 81001; 82550; 82553; 82728; 82962; 83540; 83550; 83605; 83690; 83735; 84100; 84145; 84484; 85025; 87040; 87077; 87086; 87186; 87635; 96361; 96365; 96366; 96372; 96375; 99285; 99406; C9803; G0378; J0696; J1170; J1650; J1815; J2060; J2270; J3475

== ENCOUNTER → 2021-07-15 07:58 | Outpatient (ROUT) | payer MEDICARE, MEDICAID, SELFPAY ==
[2021-07-03 11:09] VITALS: BMI 24.0
[2021-07-15 09:01] LABS: Add Manual Diff / Slide Review NO; Basophils Absolute Auto 100 /uL (0-100); Basophils Percent Auto 0.6 % (0-2); Eosinophils Absolute Auto 500 /uL (0-450); Eosinophils Percent Auto 4.5 % (2-4); Hematocrit 29.5 % (41-53); Hemoglobin 9.5 g/dL (13.5-17.5); Lymphocytes Absolute Auto 2100 /uL (1100-4500); Lymphocytes Percent Auto 19.6 % (25-40); Mean Corpuscular HGB Conc 32.3 % (30-36); Mean Corpuscular Volume 74.6 fL (80-100); Monocytes Absolute Auto 1000 /uL (0-900); Monocytes Percent Auto 9.2 % (3-14); Neutrophils Absolute Auto 6900 /uL (1500-7000); Neutrophils Percent Auto 66.1 % (50-75); Platelet Count 464 X10^3/uL (150-400); Red Blood Cell Count 3.96 X10^6/uL (4.5-5.9); Red Cell Distribution Width 16.2 % (11.6-14.8); White Blood Cell Count 10.5 X10^3/uL (4.5-11.0)
[2021-07-15 09:25] LABS: Alanine Aminotransferase 21 IU/L (<50); Albumin 3.6 g/dL (3.5-5.0); Albumin Globulin Ratio 1.3 (1.0-2.8); Alkaline Phosphatase 147 U/L (38-126); Aspartate Aminotransferase 24 IU/L (17-59); BUN Creatinine Ratio 20.8 (6-22); Bilirubin Total 0.2 mg/dL (0.2-1.3); Blood Urea Nitrogen 16 mg/dL (9-20); Calcium 8.2 mg/dL (8.4-10.2); Carbon Dioxide 29 mmol/L (22-32); Chloride 100 mmol/L (98-107); Estimated Glomerular Filt Rate > 60.0 mL/min (>60); Globulin 2.8 g/dL (1.7-4.1); Glucose 229 mg/dL (80-110); HEMOLYSIS < 15 (0-50); Potassium 3.4 mmol/L (3.4-5.1); Sodium 137 mmol/L (137-145); Total Protein 6.4 g/dL (6.3-8.2)
[2021-07-15 09:53] LABS: Thyroid Stimulating Hormone 2.28 uIU/mL (0.47-4.68)
== END ==
PROVIDERS: Family Provider Nurse Practitioner Family; PCP Registered Nurse; Visit Provider Nurse Practitioner Gerontology
DX: R53.1 Weakness (principal); B99.8 Other infectious disease; E03.9 Hypothyroidism, unspecified
CPT/HCPCS: 36415; 80053; 84443; 85025

== ENCOUNTER → 2021-07-22 12:11 | Outpatient (ROUT) | payer MEDICARE, MEDICAID, SELFPAY ==
[2021-07-03 11:09] VITALS: BMI 24.0
[2021-07-22 12:20] LABS: Add Manual Diff / Slide Review NO; Basophils Absolute Auto 100 /uL (0-100); Basophils Percent Auto 0.9 % (0-2); Eosinophils Absolute Auto 500 /uL (0-450); Eosinophils Percent Auto 5.2 % (2-4); Hematocrit 27.9 % (41-53); Hemoglobin 9.1 g/dL (13.5-17.5); Lymphocytes Absolute Auto 2100 /uL (1100-4500); Lymphocytes Percent Auto 24.1 % (25-40); Mean Corpuscular HGB Conc 32.6 % (30-36); Mean Corpuscular Volume 73.7 fL (80-100); Monocytes Absolute Auto 800 /uL (0-900); Monocytes Percent Auto 9.1 % (3-14); Neutrophils Absolute Auto 5400 /uL (1500-7000); Neutrophils Percent Auto 60.7 % (50-75); Platelet Count 435 X10^3/uL (150-400); Red Blood Cell Count 3.79 X10^6/uL (4.5-5.9); Red Cell Distribution Width 16.4 % (11.6-14.8); White Blood Cell Count 8.9 X10^3/uL (4.5-11.0)
== END ==
PROVIDERS: Family Provider Nurse Practitioner Family; PCP Registered Nurse; Visit Provider Nurse Practitioner Gerontology
DX: D64.9 Anemia, unspecified (principal)
CPT/HCPCS: 85025

== ENCOUNTER → 2021-07-29 08:18 | Outpatient (ROUT) | payer MEDICARE, MEDICAID, SELFPAY ==
[2021-07-03 11:09] VITALS: BMI 24.0
[2021-07-29 08:53] LABS: Hematocrit 26.6 % (41-53); Hemoglobin 8.5 g/dL (13.5-17.5)
[2021-07-29 09:23] LABS: Total Iron Binding Capacity 358 ug/dL (261-462)
[2021-07-29 09:49] LABS: Ferritin 8 ng/mL (18-464)
== END ==
PROVIDERS: Family Provider Nurse Practitioner Family; PCP Registered Nurse; Visit Provider Nurse Practitioner Gerontology
DX: D64.9 Anemia, unspecified (principal)
CPT/HCPCS: 36415; 82728; 83550; 85014; 85018

== ENCOUNTER → 2021-08-05 07:29 | Outpatient (ROUT) | payer MEDICARE, MEDICAID, SELFPAY ==
[2021-07-29 12:56] VITALS: BMI 24.0
[2021-08-05 08:17] LABS: Hematocrit 27.4 % (41-53); Hemoglobin 8.8 g/dL (13.5-17.5)
[2021-08-05 09:29] LABS: Carcinoembryonic Antigen 1.3 ng/mL (0.1-3.0)
== END ==
PROVIDERS: Family Provider Nurse Practitioner Family; PCP Registered Nurse; Visit Provider Nurse Practitioner Gerontology
DX: D64.9 Anemia, unspecified (principal)
CPT/HCPCS: 36415; 82378; 85014; 85018

== ENCOUNTER → 2021-08-12 08:04 | Outpatient (ROUT) | payer MEDICARE, MEDICAID, SELFPAY ==
[2021-07-29 12:56] VITALS: BMI 24.0
[2021-08-12 08:19] LABS: Hematocrit 32.7 % (41-53); Hemoglobin 10.4 g/dL (13.5-17.5)
== END ==
PROVIDERS: Family Provider Nurse Practitioner Family; PCP Registered Nurse; Visit Provider Nurse Practitioner Family
DX: D64.9 Anemia, unspecified (principal)
CPT/HCPCS: 36415; 85014; 85018

== ENCOUNTER → 2021-08-27 13:56 | Outpatient (CLI) | payer MEDICARE, MEDICAID, SELFPAY ==
[2021-07-29 12:56] VITALS: BMI 24.0
[2021-08-27 15:18] LABS: COVID19 -Nasal RAPID Negative (Negative)
== END ==
PROVIDERS: Family Provider Nurse Practitioner Family; PCP Registered Nurse; Visit Provider Surgery
DX: Z01.812 Encounter for preprocedural laboratory examination (principal); Z20.822 Contact with and (suspected) exposure to COVID-19
CPT/HCPCS: 87635; C9803

== ENCOUNTER → 2021-09-02 07:43 | Outpatient (ROUT) | payer MEDICARE, MEDICAID, SELFPAY ==
[2021-07-29 12:56] VITALS: BMI 24.0
[2021-09-02 08:08] LABS: Hematocrit 33.3 % (41-53); Hemoglobin 10.9 g/dL (13.5-17.5)
== END ==
PROVIDERS: Family Provider Nurse Practitioner Family; PCP Registered Nurse; Visit Provider Nurse Practitioner Family
DX: D64.9 Anemia, unspecified (principal)
CPT/HCPCS: 36415; 85014; 85018

== ENCOUNTER → 2021-09-08 19:56 | Outpatient (ROUT) | payer MEDICARE, SELFPAY ==
[2021-09-08 20:03] LABS: Appearance Urine UA CLEAR; Bilirubin Urine UA NEGATIVE (NEGATIVE); Color Urine UA YELLOW; Glucose Urine UA NEGATIVE (Negative); Ketones Urine UA NEGATIVE (NEGATIVE); Leukocyte Esterase Urine UA TRACE (NEGATIVE); Nitrite Urine UA NEGATIVE (Negative); Occult Blood Urine UA TRACE-INTACT (Negative); Protein Urine UA NEGATIVE (Negative); Specific Gravity Urine UA 1.015 (1.000-1.035); Urobilinogen Urine UA 0.2 E.U./dL (0.2)
[2021-09-08 20:18] LABS: Amorphous Sediment Urine 1+; Bacteria Urine Occasional (0-1); RBC Urine 1-5/HPF (0-5/HPF); WBC Urine 5-10/HPF (0-5/HPF)
[2021-09-08 20:19] LABS: Culture Indicated Urine Specimen Cultured
== END ==
PROVIDERS: Visit Provider Nurse Practitioner Gerontology
DX: N39.0 Urinary tract infection, site not specified (principal)
CPT/HCPCS: 81001; 87077; 87086; 87186

== ENCOUNTER 2021-09-22 16:18 | Emergency (ER) | payer MEDICARE, MEDICAID, SELFPAY ==
[2021-07-29 12:56] VITALS: BMI 24.0
[2021-09-22 16:24] VITALS: BMI 24.2
[2021-09-22 16:47] VITALS: BP 144/72; PULSE 76; RESP 24; TEMP 36.5; O2SAT 97
[2021-09-22] MEDS: OXYCODONE IR 5 MG TABLET 20 MG PO (19:20)
--- NOTE | 2021-09-22 19:45 | PC.NURSE ---
attempted to call mother Faviola for ride home, no answer.
[2021-09-22 21:29] VITALS: BP 169/74; PULSE 89; RESP 18; O2SAT 97
--- NOTE | 2021-09-23 09:31 | ED_ITS ---
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 Patient is in a facility where he gets oxycodone 20 mg every 4 hours for chronic pain control. Patient states that they ran out of refills this morning, his last dose was at 10:00 a.m. Patient states that the facility would only be able to give him his next dose at 7:00 p.m. tonight. patient comes in to ask for pain relief between now and 7:00 p.m.. Patient denies any new injuries. Patient denies fever, chills, chest pain, shortness of breath. Related Data Home Medications Medication Instructions Recorded Confirmed acetaminophen 325 mg tablet 650 mg PO Q4HP PRN #0 06/29/17 08/01/21 atorvastatin 80 mg tablet 80 mg PO BEDTIME #0 06/29/17 08/01/21 clopidogrel 75 mg tablet 75 mg PO DAILY #0 06/29/17 08/01/21 levothyroxine 50 mcg tablet 50 mcg PO QPM #0 06/29/17 08/01/21 omeprazole 20 mg capsule,delayed 40 mg PO DAILY #0 06/29/17 08/01/21 release artifi.tears(hypromellose)(PF) 0.3 2 drp EYE-BOTH BID ml 11/25/17 08/01/21 % eye drops insulin aspart U-100 100 unit/mL See Rx Instructions .ROUTE .COMPLEX 11/25/17 08/01/21 (3 mL) subcutaneous pen (Novolog Flexpen U-100 Insulin aspart) ammonium lactate 12 % lotion 1 applic TOPICAL BID PRN 08/13/18 08/01/21 cholecalciferol (vitamin D3) 25 2,000 unit PO DAILY 08/13/18 08/01/21 mcg (1,000 unit) capsule fluticasone propionate 50 1 spray INTRANASAL BID 08/13/18 08/01/21 mcg/actuation nasal spray,suspension hydroxyzine pamoate 25 mg capsule 25 mg PO Q6H PRN 08/13/18 08/01/21 insulin glargine 100 unit/mL (3 19 unit SUBCUT BEDTIME 08/13/18 08/01/21 mL) subcutaneous pen mirtazapine 15 mg tablet 30 mg PO BEDTIME 08/13/18 08/01/21 ondansetron 4 mg disintegrating 4 mg PO Q4H PRN 08/13/18 08/01/21 tablet duloxetine 60 mg capsule,delayed 60 mg PO BEDTIME 03/02/19 08/01/21 release glucagon (human recombinant) 1 mg 1 mg IM PRN PRN MDD ` 03/02/19 08/01/21 solution for injection (Glucagon Emergency Kit) nystatin 100,000 unit/gram topical 1 applic TOPICAL BID PRN 03/02/19 08/01/21 cream aluminum-mag hydroxide-simethicone 10 ml PO DAILY PRN 07/04/21 08/01/21 200 mg-200 mg-20 mg/5 mL oral susp aspirin 81 mg tablet,delayed 81 mg PO DAILY 07/04/21 08/01/21 release finasteride 5 mg tablet 5 mg PO DAILY 07/04/21 08/01/21 gabapentin 600 mg tablet 600 mg PO BID 07/04/21 08/01/21 lubiprostone 24 mcg capsule 24 mcg PO BID 07/04/21 08/01/21 (Amitiza) magnesium oxide 400 mg PO DAILY 07/04/21 08/01/21 oxycodone myristate 18 mg capsule 18 mg PO BID 07/04/21 08/01/21 sprinkle extended release 12hr(DON'T CRUSH) (Xtampza ER) potassium chloride 20 mEq 20 meq PO BID 07/04/21 08/01/21 tablet,extended release(part/cryst) (Klor-Con M) sertraline 50 mg tablet 50 mg PO DAILY 07/04/21 08/01/21 tamsulosin 0.4 mg capsule 0.8 mg PO BEDTIME 07/04/21 08/01/21 Previous Rx's Medication Instructions Recorded bisacodyl 10 mg rectal suppository 10 mg ID DAILY PRN #0 ea 07/07/21 naloxone 0.4 mg/mL injection 0.4 mg IM Q15-20M PRN #0 ml 07/07/21 solution oxycodone 5 mg tablet 20 mg PO Q4H PRN 7 Days #40 tab 07/07/21 polyethylene glycol 3350 17 17 g PO DAILY PRN #0 g 07/07/21 gram/dose oral powder sodium,potassium,mag sulfates 17.5 See Rx Instructions PO .COMPLEX 08/20/21 gram-3.13 gram-1.6 gram oral soln #354 ml (Suprep Bowel Prep Kit) Allergies Allergy/AdvReac Type Severity Reaction Status Date / Time amitriptyline Allergy Verified 08/01/21 15:55 pollen extracts Allergy Verified 08/01/21 15:55 codeine [CODEINE] AdvReac Unknown nausea Verified 08/01/21 15:55 Review of Systems <Charlette Rizo PA-C - Last Filed: 09/23/21 09:39> Review of Systems ROS Unobtainable: All systems reviewed & are unremarkable except as noted in HPI and below Constitutional Constitutional: Denies chills, Denies fatigue, Denies fever(s), Denies frequent falls, Denies lethargy and Denies weakness Eyes Eyes: Denies change in vision, Denies eye discharge, Denies irritation and Denies loss of vision ENT Ears, Nose, Mouth, and Throat: Denies change in voice, Denies dizziness, Reports neck pain, Denies sore throat and Denies throat swelling Cardiovascular Cardiovascular: Denies chest pain, Denies irregular heart rhythm, Denies lightheadedness, Denies palpitations, Denies dyspnea, Denies dyspnea on exertion and Denies orthopnea Respiratory Respiratory: Denies cough, Denies dyspnea, Denies dyspnea on exertion and Denies wheezing Gastrointestinal Gastrointestinal: Denies abdominal pain, Denies change in bowel habits, Denies diarrhea, Denies nausea and Denies vomiting Genitourinary Genitourinary: Denies hematuria, Denies flank pain, Denies urinary incontinence and Denies urinary urgency Musculoskeletal Musculoskeletal: Reports back pain, Denies muscle weakness, Reports neck pain, Denies numbness and Denies tingling Integumentary/Breasts Skin/Breast: Denies pruritus, Denies erythema, Denies rash and Denies wounds Neurologic Neurologic: Denies behavioral changes, Denies confusion, Denies dizziness, Denies frequent falls, Denies loss of vision, Denies numbness, Denies tingling and Denies weakness Psychiatric Psychiatric: Denies anxiety, Denies behavioral changes, Denies confusion, Denies depression, Denies homicidal ideation and Denies suicidal ideation Endocrine Endocrine: Denies fatigue, Denies flushing and Denies palpitations Hematologic/Lymphatic Hematologic/Lymphatic: Denies easy bruising Allergic/Immunologic Allergic/Immunologic: Denies urticaria, Denies throat swelling and Denies wheezing Patient History <Charlette Rizo PA-C - Last Filed: 09/23/21 09:39> Medical History C3 spinal cord injury C4 spinal cord injury CVA (cerebral vascular accident) Diabetes Gastroesophageal reflux disease Hyperlipidemia Hypertension Surgical History History of carotid endarterectomy History of coronary artery stent placement No pertinent past surgical history Family History Mother Cancer Father Lung disease Hyperlipidemia Brother Lupus Social History household members: caregiver Smoking Status: Current every day smoker alcohol intake: current substance use type: does not use additional social history: He currently resides in He currently resides in [facility]. Smoking Status: Current every day smoker tobacco type: cigarettes alcohol intake frequency: holidays/special occasions only Substance Use Type: does not use Exam <Charlette Rizo PA-C - Last Filed: 09/23/21 09:39> Initial Vital Signs Initial Vital Signs: Vital Signs Temperature 97.7 F 09/22/21 16:47 Pulse Rate 76 09/22/21 16:47 Respiratory Rate 24 09/22/21 16:47 Blood Pressure 144/72 H 09/22/21 16:47 Pulse Oximetry 97 09/22/21 16:47 Const General: cooperative HENMT Head: normal to inspection Eyes General: Yes appearance normal, both eyes and all related structures Neck Neck: normal visual inspection Resp Effort & Inspection: normal respiratory effort Auscultation: clear to auscultation bilaterally Cardio Rate: regular rate Rhythm: regular rhythm Back/Spine/Pelvis Other: no midline tenderness to palpation Neuro General: patient alert, patient awake and patient oriented x3 <Miguel Kahn DO - Last Filed: 09/24/21 05:23> Initial Vital Signs Initial Vital Signs: Vital Signs Temperature 97.7 F 09/22/21 16:47 Pulse Rate 76 09/22/21 16:47 Respiratory Rate 24 09/22/21 16:47 Blood Pressure 144/72 H 09/22/21 16:47 Pulse Oximetry 97 09/22/21 16:47 Course <Charlette Rizo PA-C - Last Filed: 09/23/21 09:39> Orders Ordered: Discontinued Medications Oxycodone HCl (Oxycodone Ir 5 Mg Tablet) 20 mg PO NOW ONE Stop: 09/22/21 19:01 Last Admin: 09/22/21 19:20 Dose: 20 mg Documented by: PAUL <DO Kylah Singleton Last Filed: 09/24/21 05:23> Orders Ordered: Discontinued Medications Oxycodone HCl (Oxycodone Ir 5 Mg Tablet) 20 mg PO NOW ONE Stop: 09/22/21 19:01 Last Admin: 09/22/21 19:20 Dose: 20 mg Documented by: PAUL MDM - Neck Pain/Injury <LEE Mahmood Last Filed: 09/23/21 09:39> [facility] Narrative Medical decision making narrative: 66-year-old male with a history of 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 Patient appears to be with no new injuries. Patient was given 1 dose of oxycodone 20 mg in the ED, which would leave the appropriate 4 hours prior to his next dose at the facility. Patient was discharged with ED return precautions. Discharge Plan Departure Patient Disposition: Home Clinical Impression: No mechanism for timely refill of medication Instructions: Chronic Neck Pain Activity Restrictions/Additional Instructions: You presented to the ED for a medication refill of oxycodone which she ran out of. We gave you 1 dose of oxycodone 20 mg in the ED today. You mention that you will be able to get medications at 7:00 p.m. in your facility today possible. Prescriptions: No Action atorvastatin 80 MG tablet 80 mg PO BEDTIME Qty: 0 0RF clopidogrel 75 MG tablet 75 mg PO DAILY Qty: 0 0RF levothyroxine 50 MCG tablet 50 mcg PO QPM Qty: 0 0RF acetaminophen 325 MG tablet 650 mg PO Q4HP PRN (Reason: Fever Or Pain) Qty: 0 0RF omeprazole 20 MG capsule,delayed release(DR/EC) 40 mg PO DAILY Qty: 0 0RF Suprep Bowel Prep Kit 17.5-3.13-1.6 gram recon soln See Rx Instructions PO .COMPLEX Qty: 354 0RF Rx Instructions: Take as directed by Physician. finasteride 5 mg tablet 5 mg PO DAILY 0RF tamsulosin 0.4 mg capsule 0.8 mg PO BEDTIME 0RF potassium chloride [Klor-Con M20] 20 mEq tablet,ER particles/crystals 20 meq PO BID 0RF sertraline 50 mg tablet 50 mg PO DAILY 0RF Xtampza ER 18 mg cap,sprinkl,ER12hr(DONT CRUSH) 18 mg PO BID 0RF gabapentin 600 mg tablet 600 mg PO BID 0RF magnesium oxide 400 mg magnesium Tablet 400 mg PO DAILY 0RF alum-mag hydroxide-simeth 200-200-20 mg/5 mL Suspension 10 ml PO DAILY PRN (Reason: Heartburn) 0RF Rx Instructions: 10-20mls lubiprostone [Amitiza] 24 mcg capsule 24 mcg PO BID 0RF aspirin 81 mg tablet,delayed release (DR/EC) 81 mg PO DAILY 0RF naloxone 0.4 mg/mL solution 0.4 mg IM Q15-20M PRN (Reason: Opioid Overdose) Qty: 0 0RF bisacodyl 10 MG suppository 10 mg ID DAILY PRN (Reason: Constipation) Qty: 0 0RF polyethylene glycol 3350 17 gram/dose powder 17 g PO DAILY PRN (Reason: Constipation) Qty: 0 0RF oxycodone 5 mg tablet 20 mg PO Q4H PRN (Reason: pain) 7 Days Qty: 40 0RF Rx Instructions: hold if too sedated mirtazapine 15 mg Tablet 30 mg PO BEDTIME 0RF fluticasone propionate 50 mcg/actuation [place],Suspension 1 spray INTRANASAL BID 0RF cholecalciferol (vitamin D3) 1,000 unit Capsule 2,000 unit PO DAILY 0RF hydroxyzine pamoate 25 mg Capsule 25 mg PO Q6H PRN (Reason: pain/spasms) 0RF insulin glargine 100 unit/mL (3 mL) Insulin Pen 19 unit SUBCUT BEDTIME 0RF ondansetron 4 mg Tablet,Disintegrating 4 mg PO Q4H PRN (Reason: Nausea) 0RF Label Comments: 1 - 2 prn nausea ammonium lactate 12 % Lotion 1 applic TOPICAL BID PRN (Reason: Dry Skin) 0RF Glucagon Emergency Kit (human) 1 mg Recon Soln 1 mg IM PRN MDD ` PRN (Reason: blood glucose <60) 0RF duloxetine 60 mg capsule,delayed release(DR/EC) 60 mg PO BEDTIME 0RF nystatin 100,000 unit/gram Cream 1 applic TOPICAL BID PRN (Reason: yeast) 0RF insulin aspart U-100 [Novolog Flexpen U-100 Insulin] 100 unit/mL insulin pen See Rx Instructions .ROUTE .COMPLEX 0RF Rx Instructions: Per [facility] med list, insulin instructions is per Ray is to direct his own dosing of insulin based on what he is about to consume w/ meals artifi.tears(hypromellose)(PF) 0.3 % drops 2 drp EYE-BOTH BID 0RF Referrals: Eli Canas ARNP [Primary Care Provider] - <Miguel Kahn DO - Last Filed: 09/24/21 05:23> Cosign ED Attending Cosignature Attestation: I was immediately available in the department for consultation. This documentation has been reviewed and I agree with assessment and plan. Supervised by Miguel Kahn DO
== END 2021-09-22 21:36 | disposition home or self-care (01) ==
PROVIDERS: Emergency Provider Student in an Organized Health Care Education/Training Program; Family Provider Nurse Practitioner Family; PCP Registered Nurse
DX: G89.29 Other chronic pain (principal)
CPT/HCPCS: 99283

== ENCOUNTER 2021-09-25 00:09 | Emergency (ER) | payer MEDICARE, MEDICAID, SELFPAY ==
[2021-07-29 12:56] VITALS: BMI 24.0
[2021-09-25 00:11] VITALS: BP 109/58; PULSE 88; RESP 22; TEMP 36.8; O2SAT 95
--- NOTE | 2021-09-25 00:16 | DI.CT.S_ITS ---
PROCEDURE: CT HEAD/BRAIN WO CON INDICATIONS: fall on thinners TECHNIQUE: Noncontrast 5 mm thick angled axial sections acquired from the foramen magnum to the vertex, with coronal and sagittal reformats. For radiation dose reduction, the following was used: automated exposure control, adjustment of mA and/or kV according to patient size. COMPARISON: [facility], CT, CT HEAD/BRAIN WO CON, 07/04/2021, 12:20. FINDINGS: Image quality: Excellent. CSF spaces: Basal cisterns are patent. No extra-axial fluid collections. There is mild cerebral volume loss, with resultant ventricular and sulcal prominence. Brain: No intracranial hemorrhage, mass, or mass effect. There are subcortical, periventricular and deep white matter hypodensities consistent with moderate chronic small vessel ischemic changes. The medrano-white matter junction appears preserved. There is intracranial internal carotid artery atherosclerosis. Skull and face: Calvarium and visualized facial bones are intact, without suspicious lesions. Sinuses: Visualized sinuses demonstrate mild mucosal thickening within the ethmoid sinuses. Mastoid air cells are clear. IMPRESSION: 1. No acute intracranial abnormality. 2. Moderate chronic white matter small vessel ischemic changes and mild cerebral volume loss. Dictated by: Artemio Vaz M.D. on 09/25/2021 at 0:53 Approved by: Artemio Vaz M.D. on 09/25/2021 at 0:55
--- NOTE | 2021-09-25 00:16 | DI.CT.S_ITS ---
PROCEDURE: CT CERVICAL SPINE WO CON INDICATIONS: fall on thinners TECHNIQUE: Noncontrast 3 mm thick sections acquired from the skull base to the T4 level. Sagittal and coronal reformats were then constructed. For radiation dose reduction, the following was used: automated exposure control, adjustment of mA and/or kV according to patient size. COMPARISON: [facility], CT, CT CERVICAL SPINE WO CON, 09/08/2020, 23:39. FINDINGS: Image quality: Excellent. Bones: No fractures or subluxation. There is straightening of the cervical lordosis. Fusion of the C3 through C5 vertebral bodies is redemonstrated. There is also associated partial fusion of the posterior elements. There is moderate to severe degenerative disc disease at C5-C6. Visualized superior ribs are intact. Soft tissues: Prevertebral soft tissues are normal in thickness. No paravertebral hematomas. No apical pneumothoraces. There are mild paraseptal emphysematous changes within the visualized lungs. IMPRESSION: 1. No fracture or subluxation. 2. Fusion of the C3 through C5 vertebrae redemonstrated. Dictated by: Artemio Vaz M.D. on 09/25/2021 at 0:56 Approved by: Artemio Vaz M.D. on 09/25/2021 at 1:00
[2021-09-25 00:38] VITALS: PULSE 87; O2SAT 96
[2021-09-25 01:00] VITALS: PULSE 87; O2SAT 94
--- NOTE | 2021-09-25 01:06 | ED.GENADULT ---
HPI - General Adult General Chief complaint: Trauma Stated complaint: fall Time Seen by Provider: 09/25/21 00:14 Source: patient and EMS Mode of arrival: EMS History of Present Illness HPI narrative: Patient is a 66-year-old male who arrives by EMS for evaluation of injuries that he sustained when he was reaching for a code pad on the wall of the facility where he lives and he fell out of his chair hitting his head on a metal door. There was no loss of consciousness. He did arrive in a cervical collar. He is on Plavix. 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 He did sustain an abrasion to his right forehead. He reports no other injuries from the event. Related Data Home Medications Medication Instructions Recorded Confirmed acetaminophen 325 mg tablet 650 mg PO Q4HP PRN #0 06/29/17 08/01/21 atorvastatin 80 mg tablet 80 mg PO BEDTIME #0 06/29/17 08/01/21 clopidogrel 75 mg tablet 75 mg PO DAILY #0 06/29/17 08/01/21 levothyroxine 50 mcg tablet 50 mcg PO QPM #0 06/29/17 08/01/21 omeprazole 20 mg capsule,delayed 40 mg PO DAILY #0 06/29/17 08/01/21 release artifi.tears(hypromellose)(PF) 0.3 2 drp EYE-BOTH BID ml 11/25/17 08/01/21 % eye drops insulin aspart U-100 100 unit/mL See Rx Instructions .ROUTE .COMPLEX 11/25/17 08/01/21 (3 mL) subcutaneous pen (Novolog Flexpen U-100 Insulin aspart) ammonium lactate 12 % lotion 1 applic TOPICAL BID PRN 08/13/18 08/01/21 cholecalciferol (vitamin D3) 25 2,000 unit PO DAILY 08/13/18 08/01/21 mcg (1,000 unit) capsule fluticasone propionate 50 1 spray INTRANASAL BID 08/13/18 08/01/21 mcg/actuation nasal spray,suspension hydroxyzine pamoate 25 mg capsule 25 mg PO Q6H PRN 08/13/18 08/01/21 insulin glargine 100 unit/mL (3 19 unit SUBCUT BEDTIME 08/13/18 08/01/21 mL) subcutaneous pen mirtazapine 15 mg tablet 30 mg PO BEDTIME 08/13/18 08/01/21 ondansetron 4 mg disintegrating 4 mg PO Q4H PRN 08/13/18 08/01/21 tablet duloxetine 60 mg capsule,delayed 60 mg PO BEDTIME 03/02/19 08/01/21 release glucagon (human recombinant) 1 mg 1 mg IM PRN PRN MDD ` 03/02/19 08/01/21 solution for injection (Glucagon Emergency Kit) nystatin 100,000 unit/gram topical 1 applic TOPICAL BID PRN 03/02/19 08/01/21 cream aluminum-mag hydroxide-simethicone 10 ml PO DAILY PRN 07/04/21 08/01/21 200 mg-200 mg-20 mg/5 mL oral susp aspirin 81 mg tablet,delayed 81 mg PO DAILY 07/04/21 08/01/21 release finasteride 5 mg tablet 5 mg PO DAILY 07/04/21 08/01/21 gabapentin 600 mg tablet 600 mg PO BID 07/04/21 08/01/21 lubiprostone 24 mcg capsule 24 mcg PO BID 07/04/21 08/01/21 (Amitiza) magnesium oxide 400 mg PO DAILY 07/04/21 08/01/21 oxycodone myristate 18 mg capsule 18 mg PO BID 07/04/21 08/01/21 sprinkle extended release 12hr(DON'T CRUSH) (Xtampza ER) potassium chloride 20 mEq 20 meq PO BID 07/04/21 08/01/21 tablet,extended release(part/cryst) (Klor-Con M) sertraline 50 mg tablet 50 mg PO DAILY 07/04/21 08/01/21 tamsulosin 0.4 mg capsule 0.8 mg PO BEDTIME 07/04/21 08/01/21 Previous Rx's Medication Instructions Recorded bisacodyl 10 mg rectal suppository 10 mg HI DAILY PRN #0 ea 07/07/21 naloxone 0.4 mg/mL injection 0.4 mg IM Q15-20M PRN #0 ml 07/07/21 solution oxycodone 5 mg tablet 20 mg PO Q4H PRN 7 Days #40 tab 07/07/21 polyethylene glycol 3350 17 17 g PO DAILY PRN #0 g 07/07/21 gram/dose oral powder sodium,potassium,mag sulfates 17.5 See Rx Instructions PO .COMPLEX 04/20/22 gram-3.13 gram-1.6 gram oral soln #354 ml (Suprep Bowel Prep Kit) Allergies Allergy/AdvReac Type Severity Reaction Status Date / Time amitriptyline Allergy Verified 08/01/21 15:55 pollen extracts Allergy Verified 08/01/21 15:55 codeine [CODEINE] AdvReac Unknown nausea Verified 08/01/21 15:55 Review of Systems Constitutional Constitutional: Denies fever(s) and Denies headache(s) Eyes Eyes: Reports system reviewed and no additional complaints, except as documented ENT Ears, Nose, Mouth, and Throat: Denies headache(s) Cardiovascular Cardiovascular: Reports system reviewed and no additional complaints, except as documented Respiratory Respiratory: Reports system reviewed and no additional complaints, except as documented Gastrointestinal Gastrointestinal: Reports system reviewed and no additional complaints, except as documented Musculoskeletal Musculoskeletal: Reports system reviewed and no additional complaints, except as documented Integumentary/Breasts Skin/Breast: Reports system reviewed and no additional complaints, except as documented and Reports as per HPI Neurologic Neurologic: Denies headache(s) Hematologic/Lymphatic Comments: On Plavix Patient History Medical History C3 spinal cord injury C4 spinal cord injury CVA (cerebral vascular accident) Diabetes Gastroesophageal reflux disease Hyperlipidemia Hypertension Surgical History History of carotid endarterectomy History of coronary artery stent placement No pertinent past surgical history Family History Mother Cancer Father Lung disease Hyperlipidemia Brother Lupus Social History household members: caregiver Smoking Status: Current every day smoker alcohol intake: current substance use type: does not use additional social history: He currently resides in He currently resides in [facility]. Smoking Status: Current every day smoker tobacco type: cigarettes alcohol intake frequency: holidays/special occasions only Substance Use Type: does not use Exam Initial Vital Signs Initial Vital Signs: Vital Signs Temperature 98.2 F 09/25/21 00:11 Pulse Rate 88 09/25/21 00:11 Respiratory Rate 09/25/21 00:11 Blood Pressure 109/58 L 09/25/21 00:11 Pulse Oximetry 95 09/25/21 00:11 Const General: cooperative and comfortable HENMT Face and sinus: normal facial exam Other HENMT:: Abrasion right forehead Resp Effort & Inspection: normal respiratory effort Cardio Rate: regular rate GI Inspection: normal to inspection Back/Spine/Pelvis Cervical Spine: collar present Skin Other: Patient has a superficial abrasion to the right forehead. There is no active bleeding. Neuro General: patient alert and patient awake Extrem Other: Right side above knee amputation. Course Orders Ordered: ED Orders 09/25/21 00:16 CT cervical spine wo con Stat CT head/brain wo con Stat Discontinued Medications Bacitracin (Bacitracin Oint 0.9 Gm Pckt) 1 applic TOP NOW ONE Stop: 09/25/21 01:08 Vital Signs Vital signs: Vital Signs - 8 hr 09/25/21 00:11 Temperature 98.2 F Pulse Rate 88 Respiratory Rate 22 Blood Pressure 109/58 L Pulse Oximetry 95 Medical Decision Making Imaging Data CT - cervical spine: Radiologist's Impression: [place] [address] CT Scan Report Signed Patient: Ray Foster MR#: [id number] : 1955 Acct:[id number] Age/Sex: 66 / M Date of Service: 09/25/21 Loc: ED Accession Number: [id number] ?? Procedure: CT cervical spine wo con Ordering Provider: Taye Lund D.O. PROCEDURE:? CT CERVICAL SPINE WO CON ? INDICATIONS:? fall on thinners ? TECHNIQUE:? Noncontrast 3 mm thick sections acquired from the skull base to the T4 level.? Sagittal and coronal reformats were then constructed.? For radiation dose reduction, the following was used:? automated exposure control, adjustment of mA and/or kV according to patient size.? ? COMPARISON:? [facility], CT, CT CERVICAL SPINE WO CON, 09/08/2020, 23:39. ? FINDINGS:? Image quality:? Excellent.? ? Bones:? No fractures or subluxation.? There is straightening of the cervical lordosis.? Fusion of the C3 through C5 vertebral bodies is redemonstrated.? There is also associated partial fusion of the posterior elements.? There is moderate to severe degenerative disc disease at C5-C6.? Visualized superior ribs are intact.? ? Soft tissues:? Prevertebral soft tissues are normal in thickness.? No paravertebral hematomas.? No apical pneumothoraces.? There are mild paraseptal emphysematous changes within the visualized lungs.? ? IMPRESSION:? ? 1. No fracture or subluxation. ? 2. Fusion of the C3 through C5 vertebrae redemonstrated.? Dictated by: Artemio Vaz M.D. on 09/25/2021 at 0:56 ? ? Approved by: Artemio Vaz M.D. on 09/25/2021 at 1:00?? CT scan - head: Radiologist's Impression: [place] [address] CT Scan Report Signed Patient: Ray Foster MR#: [id number] : 1955 Acct:[id number] Age/Sex: 66 / M Date of Service: 09/25/21 Loc: ED Accession Number: [id number] ?? Procedure: CT head/brain wo con Ordering Provider: Taye Lund D.O. PROCEDURE:? CT HEAD/BRAIN WO CON ? INDICATIONS:? fall on thinners ? TECHNIQUE:? Noncontrast 5 mm thick angled axial sections acquired from the foramen magnum to the vertex, with coronal and sagittal reformats.? For radiation dose reduction, the following was used:? automated exposure control, adjustment of mA and/or kV according to patient size.? ? COMPARISON:? [facility], CT, CT HEAD/BRAIN WO CON, 07/04/2021, 12:20. ? FINDINGS:? Image quality:? Excellent.? ? CSF spaces:? Basal cisterns are patent.? No extra-axial fluid collections.? There is mild cerebral volume loss, with resultant ventricular and sulcal prominence.? ? Brain:? No intracranial hemorrhage, mass, or mass effect.? There are subcortical, periventricular and deep white matter hypodensities consistent with moderate chronic small vessel ischemic changes.? The medrano-white matter junction appears preserved.? There is intracranial internal carotid artery atherosclerosis.? ? Skull and face:? Calvarium and visualized facial bones are intact, without suspicious lesions.? ? Sinuses:? Visualized sinuses demonstrate mild mucosal thickening within the ethmoid sinuses.? Mastoid air cells are clear. ? IMPRESSION:? ? 1. No acute intracranial abnormality. ? 2. Moderate chronic white matter small vessel ischemic changes and mild cerebral volume loss. ? ? Dictated by: Artemio Vaz M.D. on 09/25/2021 at 0:53 ? ? Approved by: Artemio Vaz M.D. on 09/25/2021 at 0:55?? MDM Narrative Medical decision making narrative: CT scan of the head neck showed no acute pathology. The abrasion on his forehead needs no intervention other than cleaning here in the ER. Topical antibiotic ointment was placed over the area. Reports no other injuries from the event. The cervical collar was removed after the cervical spine CT resulted. Will discharge home with care instructions of the skin abrasion. Discharge Plan Departure Patient Disposition: Home Clinical Impression: Abrasion of forehead, Closed head injury Instructions: DI for Closed Head Injury Activity Restrictions/Additional Instructions: You can shower like normal. You can put topical antibiotic ointment over the abrasion on your forehead. Continue all of your medications as directed. Return to the emergency department for any new or worsening symptoms. Prescriptions: No Action atorvastatin 80 MG tablet 80 mg PO BEDTIME Qty: 0 0RF clopidogrel 75 MG tablet 75 mg PO DAILY Qty: 0 0RF levothyroxine 50 MCG tablet 50 mcg PO QPM Qty: 0 0RF acetaminophen 325 MG tablet 650 mg PO Q4HP PRN (Reason: Fever Or Pain) Qty: 0 0RF omeprazole 20 MG capsule,delayed release(DR/EC) 40 mg PO DAILY Qty: 0 0RF Suprep Bowel Prep Kit 17.5-3.13-1.6 gram recon soln See Rx Instructions PO .COMPLEX Qty: 354 0RF Rx Instructions: Take as directed by Physician. finasteride 5 mg tablet 5 mg PO DAILY 0RF tamsulosin 0.4 mg capsule 0.8 mg PO BEDTIME 0RF potassium chloride [Klor-Con M20] 20 mEq tablet,ER particles/crystals 20 meq PO BID 0RF sertraline 50 mg tablet 50 mg PO DAILY 0RF Xtampza ER 18 mg cap,sprinkl,ER12hr(DONT CRUSH) 18 mg PO BID 0RF gabapentin 600 mg tablet 600 mg PO BID 0RF magnesium oxide 400 mg magnesium Tablet 400 mg PO DAILY 0RF alum-mag hydroxide-simeth 200-200-20 mg/5 mL Suspension 10 ml PO DAILY PRN (Reason: Heartburn) 0RF Rx Instructions: 10-20mls lubiprostone [Amitiza] 24 mcg capsule 24 mcg PO BID 0RF aspirin 81 mg tablet,delayed release (DR/EC) 81 mg PO DAILY 0RF naloxone 0.4 mg/mL solution 0.4 mg IM Q15-20M PRN (Reason: Opioid Overdose) Qty: 0 0RF bisacodyl 10 MG suppository 10 mg HI DAILY PRN (Reason: Constipation) Qty: 0 0RF polyethylene glycol 3350 17 gram/dose powder 17 g PO DAILY PRN (Reason: Constipation) Qty: 0 0RF oxycodone 5 mg tablet 20 mg PO Q4H PRN (Reason: pain) 7 Days Qty: 40 0RF Rx Instructions: hold if too sedated mirtazapine 15 mg Tablet 30 mg PO BEDTIME 0RF fluticasone propionate 50 mcg/actuation [place],Suspension 1 spray INTRANASAL BID 0RF cholecalciferol (vitamin D3) 1,000 unit Capsule 2,000 unit PO DAILY 0RF hydroxyzine pamoate 25 mg Capsule 25 mg PO Q6H PRN (Reason: pain/spasms) 0RF insulin glargine 100 unit/mL (3 mL) Insulin Pen 19 unit SUBCUT BEDTIME 0RF ondansetron 4 mg Tablet,Disintegrating 4 mg PO Q4H PRN (Reason: Nausea) 0RF Label Comments: 1 - 2 prn nausea ammonium lactate 12 % Lotion 1 applic TOPICAL BID PRN (Reason: Dry Skin) 0RF Glucagon Emergency Kit (human) 1 mg Recon Soln 1 mg IM PRN MDD ` PRN (Reason: blood glucose <60) 0RF duloxetine 60 mg capsule,delayed release(DR/EC) 60 mg PO BEDTIME 0RF nystatin 100,000 unit/gram Cream 1 applic TOPICAL BID PRN (Reason: yeast) 0RF insulin aspart U-100 [Novolog Flexpen U-100 Insulin] 100 unit/mL insulin pen See Rx Instructions .ROUTE .COMPLEX 0RF Rx Instructions: Per [facility] med list, insulin instructions is per Ray is to direct his own dosing of insulin based on what he is about to consume w/ meals artifi.tears(hypromellose)(PF) 0.3 % drops 2 drp EYE-BOTH BID 0RF Referrals: Eli Canas ARNP [Primary Care Provider] -
[2021-09-25 01:10] VITALS: O2SAT 97
[2021-09-25 01:12] VITALS: BP 111/59
[2021-09-25] MEDS: BACITRACIN OINT 0.9 GM PCKT 1 APPLIC TOP (01:21)
== END 2021-09-25 01:40 | disposition home or self-care (01) ==
PROVIDERS: Emergency Provider Emergency Medicine; Family Provider Nurse Practitioner Family; PCP Registered Nurse
DX: S09.90XA Unspecified injury of head, initial encounter (principal); W07.XXXA Fall from chair, initial encounter; S00.81XA Abrasion of other part of head, initial encounter; Z79.01 Long term (current) use of anticoagulants
CPT/HCPCS: 70450; 72125; 99284

== ENCOUNTER → 2021-09-30 15:33 | Outpatient (CLI) | payer MEDICARE, MEDICAID, SELFPAY ==
[2021-07-29 12:56] VITALS: BMI 24.0
== END ==
PROVIDERS: Family Provider Nurse Practitioner Family; PCP Registered Nurse; Referring Provider Nurse Practitioner Family; Visit Provider Family Medicine
DX: E10.621 Type 1 diabetes mellitus with foot ulcer (principal); L97.522 Non-pressure chronic ulcer of other part of left foot with fat layer exposed; E10.51 Type 1 diabetes mellitus with diabetic peripheral angiopathy without gangrene; E10.21 Type 1 diabetes mellitus with diabetic nephropathy; I12.9 Hypertensive chronic kidney disease with stage 1 through stage 4 chronic kidney disease, or unspecified chronic kidney disease; N18.30 Chronic kidney disease, stage 3 unspecified; E10.319 Type 1 diabetes mellitus with unspecified diabetic retinopathy without macular edema; I25.5 Ischemic cardiomyopathy; E78.5 Hyperlipidemia, unspecified; I69.351 Hemiplegia and hemiparesis following cerebral infarction affecting right dominant side; I25.119 Atherosclerotic heart disease of native coronary artery with unspecified angina pectoris; I65.29 Occlusion and stenosis of unspecified carotid artery; I25.2 Old myocardial infarction; Z72.0 Tobacco use; Z89.611 Acquired absence of right leg above knee; Z99.3 Dependence on wheelchair; Z95.5 Presence of coronary angioplasty implant and graft
CPT/HCPCS: 11042; 99213; 99214

== ENCOUNTER → 2021-10-06 10:55 | Outpatient (CLI) | payer MEDICARE, MEDICAID, SELFPAY ==
[2021-07-29 12:56] VITALS: BMI 24.0
== END ==
PROVIDERS: Family Provider Nurse Practitioner Family; PCP Registered Nurse; Referring Provider Internal Medicine; Visit Provider Family Medicine
DX: E10.621 Type 1 diabetes mellitus with foot ulcer (principal); L97.522 Non-pressure chronic ulcer of other part of left foot with fat layer exposed; L08.9 Local infection of the skin and subcutaneous tissue, unspecified; E10.51 Type 1 diabetes mellitus with diabetic peripheral angiopathy without gangrene; E10.21 Type 1 diabetes mellitus with diabetic nephropathy; E10.319 Type 1 diabetes mellitus with unspecified diabetic retinopathy without macular edema; I10 Essential (primary) hypertension; E78.5 Hyperlipidemia, unspecified; I69.351 Hemiplegia and hemiparesis following cerebral infarction affecting right dominant side; I65.29 Occlusion and stenosis of unspecified carotid artery; I25.5 Ischemic cardiomyopathy; I25.2 Old myocardial infarction; Z72.0 Tobacco use; Z89.611 Acquired absence of right leg above knee; Z99.3 Dependence on wheelchair
CPT/HCPCS: 11042; 87070; 87075; 87077; 87147; 87186; 87205; 93922; 99213

== ENCOUNTER → 2021-10-07 08:45 | Outpatient (ROUT) | payer MEDICARE, MEDICAID, SELFPAY ==
[2021-07-29 12:56] VITALS: BMI 24.0
[2021-10-07 10:44] LABS: Hematocrit 35.7 % (41-53); Hemoglobin 11.7 g/dL (13.5-17.5)
== END ==
PROVIDERS: Family Provider Nurse Practitioner Family; PCP Registered Nurse; Visit Provider Internal Medicine
DX: D64.9 Anemia, unspecified (principal)
CPT/HCPCS: 36415; 85014; 85018

== ENCOUNTER → 2021-10-13 10:56 | Outpatient (CLI) | payer MEDICARE, MEDICAID, SELFPAY ==
[2021-07-29 12:56] VITALS: BMI 24.0
== END ==
PROVIDERS: Family Provider Nurse Practitioner Family; PCP Registered Nurse; Referring Provider Internal Medicine; Visit Provider Family Medicine
DX: E10.621 Type 1 diabetes mellitus with foot ulcer (principal); L97.522 Non-pressure chronic ulcer of other part of left foot with fat layer exposed; L08.89 Other specified local infections of the skin and subcutaneous tissue; B95.7 Other staphylococcus as the cause of diseases classified elsewhere; E10.51 Type 1 diabetes mellitus with diabetic peripheral angiopathy without gangrene; T36.4X5A Adverse effect of tetracyclines, initial encounter; R53.83 Other fatigue; E10.21 Type 1 diabetes mellitus with diabetic nephropathy; E10.319 Type 1 diabetes mellitus with unspecified diabetic retinopathy without macular edema; I10 Essential (primary) hypertension; E78.5 Hyperlipidemia, unspecified; I69.351 Hemiplegia and hemiparesis following cerebral infarction affecting right dominant side; I65.29 Occlusion and stenosis of unspecified carotid artery; I25.5 Ischemic cardiomyopathy; I25.2 Old myocardial infarction; M19.072 Primary osteoarthritis, left ankle and foot; Z72.0 Tobacco use; Z89.611 Acquired absence of right leg above knee; Z99.3 Dependence on wheelchair; Z98.890 Other specified postprocedural states
CPT/HCPCS: 11042; 73630; 99214

== ENCOUNTER → 2021-10-13 12:15 | Outpatient (CLI) | payer MEDICARE, MEDICAID, SELFPAY ==
[2021-07-29 12:56] VITALS: BMI 24.0
--- NOTE | 2021-10-13 12:19 | DI.RAD.S_ITS ---
PROCEDURE: XR FOOT LT MIN 3V INDICATIONS: FOOT XRAY TECHNIQUE: 3 views of the foot were acquired. COMPARISON: [facility], CR, XR FOOT RT MIN 3V, 03/02/2019, 11:05. FINDINGS: Bones: No fractures or dislocations. No suspicious bony lesions. Joint space narrowing and periarticular osteophyte formation at the 1st metatarsophalangeal joint as well as the interphalangeal joints of the digits. Hardware within the distal tibia and fibula is present. Periarticular osteophyte formation at the tibiotalar and talonavicular joints. Soft tissues: No tibiotalar joint effusion. Achilles tendon appears normal. IMPRESSION: 1. Multifocal osteoarthritis. 2. Postsurgical sequelae. 3. No acute fracture. No osseous lesion. If symptoms and/or clinical suspicion for pathology persist, further assessment with repeat, or advanced imaging (e.g., CT, MRI, or bone scan) may be helpful for further assessment. Dictated by: Gary Kirkpatrick M.D. on 10/13/2021 at 14:04 Approved by: Gary Kirkpatrick M.D. on 10/13/2021 at 14:49
== END ==
PROVIDERS: Family Provider Nurse Practitioner Family; PCP Registered Nurse; Referring Provider Family Medicine; Visit Provider Family Medicine
DX: M19.072 Primary osteoarthritis, left ankle and foot (principal); Z98.890 Other specified postprocedural states
CPT/HCPCS: 73630

== ENCOUNTER → 2021-10-27 09:56 | Outpatient (CLI) | payer MEDICARE, MEDICAID, SELFPAY ==
[2021-07-29 12:56] VITALS: BMI 24.0
== END ==
PROVIDERS: Family Provider Nurse Practitioner Family; PCP Registered Nurse; Referring Provider Registered Nurse; Visit Provider Family Medicine
DX: E10.621 Type 1 diabetes mellitus with foot ulcer (principal); L97.522 Non-pressure chronic ulcer of other part of left foot with fat layer exposed; E10.51 Type 1 diabetes mellitus with diabetic peripheral angiopathy without gangrene; E10.21 Type 1 diabetes mellitus with diabetic nephropathy; E10.319 Type 1 diabetes mellitus with unspecified diabetic retinopathy without macular edema; I10 Essential (primary) hypertension; E78.5 Hyperlipidemia, unspecified; I69.351 Hemiplegia and hemiparesis following cerebral infarction affecting right dominant side; I65.29 Occlusion and stenosis of unspecified carotid artery; I25.5 Ischemic cardiomyopathy; I25.2 Old myocardial infarction; Z89.611 Acquired absence of right leg above knee; Z72.0 Tobacco use; Z99.3 Dependence on wheelchair
CPT/HCPCS: 11042

== ENCOUNTER → 2021-11-04 10:41 | Outpatient (CLI) | payer MEDICARE, MEDICAID, SELFPAY ==
[2021-10-31 11:08] VITALS: BMI 24.0
== END ==
PROVIDERS: Family Provider Nurse Practitioner Family; PCP Registered Nurse; Referring Provider Registered Nurse; Visit Provider Family Medicine
DX: E10.621 Type 1 diabetes mellitus with foot ulcer (principal); L97.522 Non-pressure chronic ulcer of other part of left foot with fat layer exposed; E10.51 Type 1 diabetes mellitus with diabetic peripheral angiopathy without gangrene; E10.21 Type 1 diabetes mellitus with diabetic nephropathy; E10.319 Type 1 diabetes mellitus with unspecified diabetic retinopathy without macular edema; Z89.611 Acquired absence of right leg above knee; I10 Essential (primary) hypertension; E78.5 Hyperlipidemia, unspecified; I25.5 Ischemic cardiomyopathy; I65.29 Occlusion and stenosis of unspecified carotid artery; I69.351 Hemiplegia and hemiparesis following cerebral infarction affecting right dominant side; I25.2 Old myocardial infarction; Z72.0 Tobacco use; Z99.3 Dependence on wheelchair
CPT/HCPCS: 11042; 99212

== ENCOUNTER → 2021-11-05 09:59 | Outpatient (CLI) | payer MEDICARE, MEDICAID, SELFPAY ==
[2021-10-31 11:08] VITALS: BMI 24.0
[2021-11-05 13:59] LABS: COVID19 -Nasal RAPID Negative (Negative)
== END ==
PROVIDERS: Family Provider Nurse Practitioner Family; PCP Registered Nurse; Visit Provider Surgery
DX: Z20.822 Contact with and (suspected) exposure to COVID-19 (principal); Z01.812 Encounter for preprocedural laboratory examination
CPT/HCPCS: 87635; C9803

== ENCOUNTER 2021-11-06 13:53 | Day surgery (SDC) | payer MEDICARE, MEDICAID, SELFPAY ==
[2021-10-31 11:08] VITALS: BMI 24.0
--- NOTE | 2021-11-06 | PATH_ITS ---
[facility] Accession Number: [id number] . 01 Material submitted: . gastrointestinal site - ANTRUM BIOPSY . 01 Diagnosis: Antrum, Biopsy: Gastric antral mucosa with no diagnostic abnormality. No evidence of Helicobacter organisms on H/E stain. Negative for intestinal metaplasia. Negative for dysplasia and malignancy. [facility] 11/07/2021 1605 Local . 01 Electronically signed: . Mark Salomon MD, PhD, Pathologist NPI- [id number] . 01 Gross description: . ANTRUM BIOPSY: Received in formalin are 3 fragment(s) of sosa, soft tissue measuring 0.1 x 0.1 x 0.1 cm to 0.3 x 0.3 x 0.2 cm submitted entirely in 1 cassette(s) /FRANK 11/07/2021 0200 Local . 01 Pathologist provided ICD-10: R10.13 . 01 CPT . 967042 Specimen Comment: A courtesy copy of this report has been sent to [phone] Performed at: 01 [facility] [address] [place] [address] [id number] MD Artemio Tian MD Phone: [phone]
[2021-11-06 14:21] VITALS: BP 133/74; PULSE 84; RESP 20; TEMP 36.6; O2SAT 96; BMI 22.8
[2021-11-06] MEDS: LACTATED RINGERS 1,000 ML 100 ML IV (14:40)
--- NOTE | 2021-11-06 15:20 | PM.HP.1 ---
History of Present Illness History of Present Illness Date Patient Seen: 11/06/21 Time Patient Seen: 15:21 Chief complaint: SDC Narrative: Ray is here for his upper and lower endoscopy. He reports no changes since his last office visit August. See the office note from August for details. Patient History Medical History (Updated 11/06/21 @ 15:23 by Иван Quezada MD) C3 spinal cord injury C4 spinal cord injury CVA (cerebral vascular accident) Diabetes Gastroesophageal reflux disease Hyperlipidemia Hypertension Surgical History (System 11/06/21 @ 08:50 by Rocio Lind) History of carotid endarterectomy History of coronary artery stent placement No pertinent past surgical history Family & Social History Family History (System 11/06/21 @ 08:50 by Rocio Lind) Mother Cancer Father Lung disease Hyperlipidemia Brother Lupus Social History: household members other Tobacco & Substance use: Tobacco type cigarettes Smoking Status Current every day smoker alcohol intake former alcohol intake frequency holiday/special occasion Substance Use Type does not use Meds Home Medications and Allergies Home Medications Medication Instructions Recorded Confirmed Type acetaminophen 325 mg tablet 650 mg PO Q4HP PRN Fever Or Pain 06/29/17 11/06/21 History ##0 atorvastatin 80 mg tablet 80 mg PO BEDTIME ##0 06/29/17 08/01/21 History clopidogrel 75 mg tablet 75 mg PO DAILY ##0 06/29/17 08/01/21 History levothyroxine 50 mcg tablet 50 mcg PO QPM ##0 06/29/17 08/01/21 History omeprazole 20 mg capsule,delayed 40 mg PO DAILY ##0 06/29/17 08/01/21 History release insulin aspart U-100 100 unit/mL See Rx Instructions .Route .COMPLEX 11/25/17 08/01/21 History (3 mL) subcutaneous pen (Novolog Flexpen U-100 Insulin aspart) cholecalciferol (vitamin D3) 25 2,000 unit PO DAILY 08/13/18 08/01/21 History mcg (1,000 unit) capsule fluticasone propionate 50 1 spray intranasal BID 08/13/18 08/01/21 History mcg/actuation nasal spray,suspension hydroxyzine pamoate 25 mg capsule 25 mg PO Q6H PRN pain/spasms 08/13/18 08/01/21 History insulin glargine 100 unit/mL (3 19 unit SUBCUT BEDTIME 08/13/18 08/01/21 History mL) subcutaneous pen mirtazapine 15 mg tablet 30 mg PO BEDTIME 08/13/18 08/01/21 History ondansetron 4 mg disintegrating 4 mg PO Q4H PRN Nausea 08/13/18 08/01/21 History tablet duloxetine 60 mg capsule,delayed 60 mg PO BEDTIME 03/02/19 08/01/21 History release glucagon (human recombinant) 1 mg 1 mg IM PRN PRN blood glucose <60 03/02/19 08/01/21 History solution for injection (Glucagon Emergency Kit) nystatin 100,000 unit/gram topical 1 applic topical BID PRN yeast 03/02/19 08/01/21 History cream aluminum-mag hydroxide-simethicone 10 ml PO DAILY PRN Heartburn 07/04/21 11/06/21 History 200 mg-200 mg-20 mg/5 mL oral susp aspirin 81 mg tablet,delayed 81 mg PO DAILY 07/04/21 11/06/21 History release finasteride 5 mg tablet 5 mg PO DAILY 07/04/21 08/01/21 History gabapentin 600 mg tablet 600 mg PO BID 07/04/21 08/01/21 History lubiprostone 24 mcg capsule 24 mcg PO BID 07/04/21 08/01/21 History (Amitiza) magnesium oxide 400 mg PO DAILY 07/04/21 08/01/21 History oxycodone myristate 18 mg capsule 18 mg PO BID 07/04/21 08/01/21 History sprinkle extended release 12hr(DON'T CRUSH) (Xtampza ER) potassium chloride 20 mEq 20 meq PO BID 07/04/21 08/01/21 History tablet,extended release(part/cryst) (Klor-Con M) sertraline 50 mg tablet 50 mg PO DAILY 07/04/21 08/01/21 History tamsulosin 0.4 mg capsule 0.8 mg PO BEDTIME 07/04/21 08/01/21 History bisacodyl 10 mg rectal suppository 10 mg [place] DAILY PRN Constipation #0 07/07/21 08/01/21 Rx ea naloxone 0.4 mg/mL injection 0.4 mg IM Q15-20M PRN Opioid 07/07/21 08/01/21 Rx solution Overdose #0 mL oxycodone 5 mg tablet 20 mg PO Q4H PRN pain 7 days #40 07/07/21 11/06/21 Rx tabs polyethylene glycol 3350 17 17 g PO DAILY PRN Constipation #0 07/07/21 08/01/21 Rx gram/dose oral powder grams peg 3350-electrolytes 236 240 ml PO Q10M #4,000 mL 10/31/21 Rx gram-22.74 gram-6.74 gram-5.86 gram solution (Golytely) Allergies Allergy/AdvReac Type Severity Reaction Status Date / Time amitriptyline Allergy Verified 11/06/21 08:50 pollen extracts Allergy Verified 11/06/21 08:50 codeine [CODEINE] AdvReac Unknown nausea Verified 11/06/21 08:50 Exam Vital Signs (past 8 hours): - 11/06/21 14:21 Temperature 97.8 F Pulse Rate 84 Respiratory Rate 20 Blood Pressure 133/74 Pulse Oximetry 96 Oxygen Delivery Method Room Air Oxygen Delivery Method Room Air Const General: ill appearing Other: Lethargic Resp Effort & Inspection: normal respiratory effort Assessment & Plan Assessment and plan (1) Anemia: Qualifiers: Anemia type: unspecified type Qualified Code(s): D64.9 - Anemia, unspecified Status: Acute Plan Plan for upper and lower endoscopy with monitored anesthesia. We reviewed the risks and benefits and would like to proceed. Time Spent With Patient Critical Care time: I spent a total of [] minutes of critical care time on this patient's care today; this time is exclusive of procedural time.
--- NOTE | 2021-11-06 16:00 | PM.OP.EGD ---
Operative Date/Time/Diagnoses Date of procedure: 11/06/21 Time of procedure: 16:00 Pre-op diagnosis: Anemia Post-op diagnosis: same Procedure & Clinicians Study performed: Esophagogastroduodenoscopy Same procedure as scheduled: No (Colonoscopy was aborted due to inadequate prep) Surgeon: Иван Quezada Procedure Notes Procedure in detail: Surgeon: Иван Quezada MD A timeout was performed. A bite blocked was placed. Monitored anesthesia was induced by Dr. Chan in the supine position. The endoscope was inserted through the bite block and passed through the esophagus and stomach and into the duodenal bulb. The duodenal bulb mucosa appeared normal. The scope was withdrawn into the stomach. There were no obvious ulcers. There were flecks of old blood throughout the stomach. Random biopsies were taken from the antrum. The scope was retroflexed and no hiatal hernia was seen. The scope was withdrawn into the esophagus and no abnormalities were noted. The remainder of the esophagus was normal. The scope was withdrawn. We then proceeded with the scheduled colonoscopy however the patient had a semi solid bowel movement prior to insertion of the scope and the colonoscopy was aborted Findings: Old blood in the stomach with no obvious source Post-procedure Recommendations: Will call with biopsy results Disposition: PACU
[2021-11-06 16:07] VITALS: BP 140/70; PULSE 16; RESP 16; TEMP 36.8; O2SAT 98
[2021-11-06 16:12] VITALS: BP 140/70; PULSE 78; RESP 16; TEMP 36.8; O2SAT 98
[2021-11-06 16:15] VITALS: BP 150/70; PULSE 78; RESP 16; TEMP 36.8; O2SAT 98
[2021-11-06 16:31] VITALS: BP 98/78; PULSE 77; RESP 16; TEMP 36.8; O2SAT 98
[2021-11-06 16:37] VITALS: BP 145/75; PULSE 77; RESP 16; TEMP 36.8; O2SAT 98
== END 2021-11-06 16:42 | disposition home or self-care (01) ==
PROVIDERS: Family Provider Nurse Practitioner Family; PCP Registered Nurse; Referring Provider Surgery; Visit Provider Surgery
PROC: 0DJ08ZZ Inspection of Upper Intestinal Tract, Via Natural or Artificial Opening Endoscopic (ICD-10-PCS; CPT 43235; principal; 2021-11-06 15:00)
PROC: 0DJD8ZZ Inspection of Lower Intestinal Tract, Via Natural or Artificial Opening Endoscopic (ICD-10-PCS; CPT 45378; 2021-11-06 15:00)
DX: D64.9 Anemia, unspecified (principal); F17.210 Nicotine dependence, cigarettes, uncomplicated; Z53.09 Procedure and treatment not carried out because of other contraindication
CPT/HCPCS: 43239; 45378; 82962; J2704; J3010

== ENCOUNTER → 2021-11-10 14:55 | Outpatient (CLI) | payer MEDICARE, MEDICAID, SELFPAY ==
[2021-10-31 11:08] VITALS: BMI 24.0
== END ==
PROVIDERS: Family Provider Nurse Practitioner Family; PCP Registered Nurse; Referring Provider Registered Nurse; Visit Provider Family Medicine
DX: E10.621 Type 1 diabetes mellitus with foot ulcer (principal); L97.522 Non-pressure chronic ulcer of other part of left foot with fat layer exposed; E10.51 Type 1 diabetes mellitus with diabetic peripheral angiopathy without gangrene; E10.21 Type 1 diabetes mellitus with diabetic nephropathy; I10 Essential (primary) hypertension; E78.5 Hyperlipidemia, unspecified; I25.5 Ischemic cardiomyopathy; I25.2 Old myocardial infarction; I65.29 Occlusion and stenosis of unspecified carotid artery; I69.351 Hemiplegia and hemiparesis following cerebral infarction affecting right dominant side; Z89.611 Acquired absence of right leg above knee; Z72.0 Tobacco use; Z99.3 Dependence on wheelchair
CPT/HCPCS: 15275; Q4110

== ENCOUNTER → 2021-11-17 08:38 | Outpatient (CLI) | payer MEDICARE, MEDICAID, SELFPAY ==
[2021-10-31 11:08] VITALS: BMI 24.0
== END ==
PROVIDERS: Family Provider Nurse Practitioner Family; PCP Registered Nurse; Referring Provider Nurse Practitioner Family; Visit Provider Family Medicine
DX: E11.621 Type 2 diabetes mellitus with foot ulcer (principal); L97.522 Non-pressure chronic ulcer of other part of left foot with fat layer exposed
CPT/HCPCS: 99213

== ENCOUNTER → 2021-11-18 08:37 | Outpatient (ROUT) | payer MEDICARE, MEDICAID, SELFPAY ==
[2021-10-31 11:08] VITALS: BMI 24.0
[2021-11-18 09:07] LABS: Add Manual Diff / Slide Review NO; Basophils Absolute Auto 100 /uL (0-100); Basophils Percent Auto 1.1 % (0-2); Eosinophils Absolute Auto 400 /uL (0-450); Eosinophils Percent Auto 4.9 % (2-4); Hematocrit 38.7 % (41-53); Hemoglobin 13.2 g/dL (13.5-17.5); Lymphocytes Absolute Auto 2500 /uL (1100-4500); Lymphocytes Percent Auto 28.1 % (25-40); Mean Corpuscular Hemoglobin 28.7 PG (26-34); Mean Corpuscular Volume 84.3 fL (80-100); Monocytes Absolute Auto 700 /uL (0-900); Monocytes Percent Auto 7.7 % (3-14); Neutrophils Absolute Auto 5200 /uL (1500-7000); Neutrophils Percent Auto 58.2 % (50-75); Platelet Count 387 X10^3/uL (150-400); Red Blood Cell Count 4.59 X10^6/uL (4.5-5.9); Red Cell Distribution Width 14.3 % (11.6-14.8); White Blood Cell Count 8.9 X10^3/uL (4.5-11.0)
[2021-11-18 09:37] LABS: HEMOLYSIS 36 (0-50); Iron 63 ug/dL (49-181)
[2021-11-18 09:42] LABS: Alanine Aminotransferase 19 IU/L (<50); Albumin 3.6 g/dL (3.5-5.0); Albumin Globulin Ratio 1.2 (1.0-2.8); Alkaline Phosphatase 132 U/L (38-126); Aspartate Aminotransferase 23 IU/L (17-59); BUN Creatinine Ratio 16.7 (6-22); Bilirubin Total 0.2 mg/dL (0.2-1.3); Blood Urea Nitrogen 11 mg/dL (9-20); Calcium 8.2 mg/dL (8.4-10.2); Carbon Dioxide 33 mmol/L (22-32); Chloride 96 mmol/L (98-107); Estimated Glomerular Filt Rate > 60 mL/min (>60); Globulin 3.1 g/dL (1.7-4.1); Glucose 244 mg/dL (80-110); HEMOLYSIS < 15 (0-50); Potassium 3.7 mmol/L (3.4-5.1); Sodium 133 mmol/L (137-145); Total Protein 6.7 g/dL (6.3-8.2)
[2021-11-18 09:48] LABS: Percent Iron Saturation 24 % (20-50); Total Iron Binding Capacity 266 ug/dL (261-462); Transferrin 204 mg/dL (206-381)
[2021-11-18 09:59] LABS: Hemoglobin A1C% w Est Avg Glu 7.2 % (4.0-6.0)
[2021-11-18 10:08] LABS: Ferritin 39 ng/mL (18-464)
[2021-11-18 10:39] LABS: Folate 4.8 ng/mL (2.76-20.0)
== END ==
PROVIDERS: Family Provider Nurse Practitioner Family; PCP Registered Nurse; Visit Provider Nurse Practitioner Family
DX: E10.9 Type 1 diabetes mellitus without complications (principal); D64.9 Anemia, unspecified; Z79.899 Other long term (current) drug therapy
CPT/HCPCS: 36415; 80053; 82728; 82746; 83036; 83540; 83550; 85025

== ENCOUNTER → 2021-11-24 10:23 | Outpatient (CLI) | payer MEDICARE, MEDICAID, SELFPAY ==
[2021-10-31 11:08] VITALS: BMI 24.0
== END ==
PROVIDERS: Family Provider Nurse Practitioner Family; PCP Registered Nurse; Referring Provider Registered Nurse; Visit Provider Family Medicine
DX: E10.621 Type 1 diabetes mellitus with foot ulcer (principal); L97.522 Non-pressure chronic ulcer of other part of left foot with fat layer exposed; L84 Corns and callosities; E10.51 Type 1 diabetes mellitus with diabetic peripheral angiopathy without gangrene; E10.21 Type 1 diabetes mellitus with diabetic nephropathy; E10.319 Type 1 diabetes mellitus with unspecified diabetic retinopathy without macular edema; Z89.611 Acquired absence of right leg above knee; Z72.0 Tobacco use; Z99.3 Dependence on wheelchair
CPT/HCPCS: 15275; Q4137

== ENCOUNTER → 2021-11-24 16:02 | Outpatient (ROUT) | payer MEDICARE, MEDICAID, SELFPAY ==
[2021-10-31 11:08] VITALS: BMI 24.0
[2021-11-24 16:08] LABS: Bilirubin Urine UA NEGATIVE (NEGATIVE); Color Urine UA YELLOW; Glucose Urine UA NEGATIVE (Negative); Ketones Urine UA NEGATIVE (NEGATIVE); Leukocyte Esterase Urine UA 3+ (NEGATIVE); Nitrite Urine UA POSITIVE (Negative); Occult Blood Urine UA 1+ (Negative); Protein Urine UA 2+ (Negative); Urobilinogen Urine UA 0.2 E.U./dL (0.2); pH Urine UA >= 9.0 (4.5-8.0)
[2021-11-24 16:20] LABS: Amorphous Sediment Urine 2+; Appearance Urine UA CLOUDY; Bacteria Urine Many (>30); Culture Indicated Urine Specimen Cultured; RBC Urine 1-5/HPF (0-5/HPF); WBC Urine 10-30/HPF (0-5/HPF)
== END ==
PROVIDERS: Family Provider Nurse Practitioner Family; PCP Registered Nurse; Visit Provider Nurse Practitioner Gerontology
DX: N39.0 Urinary tract infection, site not specified (principal)
CPT/HCPCS: 81001; 87077; 87086; 87186

== ENCOUNTER → 2021-12-01 09:46 | Outpatient (CLI) | payer MEDICARE, MEDICAID, SELFPAY ==
[2021-10-31 11:08] VITALS: BMI 24.0
== END ==
PROVIDERS: Family Provider Nurse Practitioner Family; PCP Registered Nurse; Referring Provider Internal Medicine; Visit Provider Family Medicine
DX: E10.621 Type 1 diabetes mellitus with foot ulcer (principal); L97.522 Non-pressure chronic ulcer of other part of left foot with fat layer exposed; I73.9 Peripheral vascular disease, unspecified; Z89.611 Acquired absence of right leg above knee; Z72.0 Tobacco use
CPT/HCPCS: 15275; 99213; Q4110

== ENCOUNTER → 2021-12-08 11:53 | Outpatient (CLI) | payer MEDICARE, MEDICAID, SELFPAY ==
[2021-10-31 11:08] VITALS: BMI 24.0
== END ==
PROVIDERS: Family Provider Nurse Practitioner Family; PCP Registered Nurse; Referring Provider Registered Nurse; Visit Provider Family Medicine
DX: E10.621 Type 1 diabetes mellitus with foot ulcer (principal); L97.522 Non-pressure chronic ulcer of other part of left foot with fat layer exposed; I10 Essential (primary) hypertension; E10.51 Type 1 diabetes mellitus with diabetic peripheral angiopathy without gangrene; Z89.611 Acquired absence of right leg above knee; Z99.3 Dependence on wheelchair; Z72.0 Tobacco use; I70.90 Unspecified atherosclerosis
CPT/HCPCS: 99212

== ENCOUNTER → 2021-12-11 16:12 | Outpatient (ROUT) | payer MEDICARE, MEDICAID, SELFPAY ==
[2021-10-31 11:08] VITALS: BMI 24.0
[2021-12-11 16:19] LABS: Appearance Urine UA TURBID; Bilirubin Urine UA NEGATIVE (NEGATIVE); Color Urine UA YELLOW; Glucose Urine UA NEGATIVE (Negative); Ketones Urine UA NEGATIVE (NEGATIVE); Leukocyte Esterase Urine UA 2+ (NEGATIVE); Nitrite Urine UA NEGATIVE (Negative); Occult Blood Urine UA 2+ (Negative); Protein Urine UA 2+ (Negative); Specific Gravity Urine UA <=1.005 (1.000-1.035); Urobilinogen Urine UA 0.2 E.U./dL (0.2); pH Urine UA 8.5 (4.5-8.0)
[2021-12-11 16:49] LABS: Bacteria Urine Many (>30); Culture Indicated Urine Specimen Cultured; RBC Urine 10-30/HPF (0-5/HPF); Squamous Epithelial Cell Urine 0-1 /HPF (0-5/HPF); WBC Urine 10-30/HPF (0-5/HPF)
== END ==
PROVIDERS: Family Provider Nurse Practitioner Family; PCP Registered Nurse; Visit Provider Internal Medicine
DX: R19.7 Diarrhea, unspecified (principal)
CPT/HCPCS: 81001; 87077; 87086; 87186

== ENCOUNTER → 2021-12-22 12:55 | Outpatient (CLI) | payer MEDICARE, MEDICAID, SELFPAY ==
[2021-10-31 11:08] VITALS: BMI 24.0
== END ==
PROVIDERS: Family Provider Nurse Practitioner Family; PCP Registered Nurse; Referring Provider Internal Medicine; Visit Provider Family Medicine
DX: E10.621 Type 1 diabetes mellitus with foot ulcer (principal); L97.522 Non-pressure chronic ulcer of other part of left foot with fat layer exposed; E10.51 Type 1 diabetes mellitus with diabetic peripheral angiopathy without gangrene; Z89.611 Acquired absence of right leg above knee; Z72.0 Tobacco use
CPT/HCPCS: 15275; Q4105

== ENCOUNTER → 2021-12-29 13:55 | Outpatient (CLI) | payer MEDICARE, MEDICAID, SELFPAY ==
[2021-10-31 11:08] VITALS: BMI 24.0
== END ==
PROVIDERS: Family Provider Nurse Practitioner Family; PCP Registered Nurse; Referring Provider Internal Medicine; Visit Provider Family Medicine
DX: E11.621 Type 2 diabetes mellitus with foot ulcer (principal); L97.522 Non-pressure chronic ulcer of other part of left foot with fat layer exposed
CPT/HCPCS: 99212

== ENCOUNTER → 2022-01-02 12:33 | Outpatient (ROUT) | payer MEDICARE, MEDICAID, SELFPAY ==
[2021-10-31 11:08] VITALS: BMI 24.0
[2022-01-02 13:24] LABS: BUN Creatinine Ratio 19.6 (6-22); Blood Urea Nitrogen 18 mg/dL (9-20); Calcium 8.8 mg/dL (8.4-10.2); Carbon Dioxide 32 mmol/L (22-32); Chloride 99 mmol/L (98-107); Estimated Glomerular Filt Rate > 60 mL/min (>60); Glucose 270 mg/dL (80-110); HEMOLYSIS < 15 (0-50); Potassium 4.5 mmol/L (3.4-5.1); Sodium 135 mmol/L (137-145)
[2022-01-02 13:48] LABS: Add Manual Diff / Slide Review NO; Basophils Absolute Auto 100 /uL (0-100); Basophils Percent Auto 0.8 % (0-2); Eosinophils Absolute Auto 400 /uL (0-450); Eosinophils Percent Auto 5.1 % (2-4); Hematocrit 37.7 % (41-53); Hemoglobin 12.6 g/dL (13.5-17.5); Lymphocytes Absolute Auto 1400 /uL (1100-4500); Lymphocytes Percent Auto 17.1 % (25-40); Mean Corpuscular HGB Conc 33.4 % (30-36); Monocytes Absolute Auto 500 /uL (0-900); Monocytes Percent Auto 6.5 % (3-14); Neutrophils Absolute Auto 5700 /uL (1500-7000); Neutrophils Percent Auto 70.5 % (50-75); Platelet Count 345 X10^3/uL (150-400); Red Blood Cell Count 4.34 X10^6/uL (4.5-5.9); Red Cell Distribution Width 15.5 % (11.6-14.8); White Blood Cell Count 8.1 X10^3/uL (4.5-11.0)
== END ==
PROVIDERS: Family Provider Nurse Practitioner Family; PCP Registered Nurse; Visit Provider Nurse Practitioner Family
DX: R53.83 Other fatigue (principal)
CPT/HCPCS: 80048; 85025

== ENCOUNTER → 2022-01-06 10:41 | Outpatient (CLI) | payer MEDICARE, MEDICAID, SELFPAY ==
[2021-10-31 11:08] VITALS: BMI 24.0
== END ==
PROVIDERS: Family Provider Nurse Practitioner Family; PCP Registered Nurse; Referring Provider Registered Nurse; Visit Provider Family Medicine
DX: E10.621 Type 1 diabetes mellitus with foot ulcer (principal); L97.522 Non-pressure chronic ulcer of other part of left foot with fat layer exposed; E10.51 Type 1 diabetes mellitus with diabetic peripheral angiopathy without gangrene; Z89.611 Acquired absence of right leg above knee; Z72.0 Tobacco use; Z99.3 Dependence on wheelchair
CPT/HCPCS: 11042; 99212

== ENCOUNTER → 2022-01-13 11:10 | Outpatient (CLI) | payer MEDICARE, MEDICAID, SELFPAY ==
[2021-10-31 11:08] VITALS: BMI 24.0
== END ==
PROVIDERS: Family Provider Nurse Practitioner Family; PCP Registered Nurse; Referring Provider Registered Nurse; Visit Provider Family Medicine
DX: E11.621 Type 2 diabetes mellitus with foot ulcer (principal); L97.522 Non-pressure chronic ulcer of other part of left foot with fat layer exposed
CPT/HCPCS: 99212

== ENCOUNTER → 2022-01-27 13:40 | Outpatient (ROUT) | payer MEDICARE, MEDICAID, SELFPAY ==
[2021-10-31 11:08] VITALS: BMI 24.0
[2022-01-27 13:56] LABS: BUN Creatinine Ratio 19.2 (6-22); Blood Urea Nitrogen 14 mg/dL (9-20); Calcium 8.2 mg/dL (8.4-10.2); Carbon Dioxide 30 mmol/L (22-32); Chloride 104 mmol/L (98-107); Estimated Glomerular Filt Rate > 60 mL/min (>60); HEMOLYSIS < 15 (0-50); Potassium 3.7 mmol/L (3.4-5.1); Sodium 141 mmol/L (137-145)
[2022-01-27 15:20] LABS: Glucose 30 mg/dL (80-110)
== END ==
PROVIDERS: Family Provider Nurse Practitioner Family; PCP Registered Nurse; Visit Provider Nurse Practitioner Gerontology
DX: E83.42 Hypomagnesemia (principal); N18.9 Chronic kidney disease, unspecified
CPT/HCPCS: 80048; 83735

== ENCOUNTER → 2022-01-27 14:49 | Outpatient (CLI) | payer MEDICARE, MEDICAID, SELFPAY ==
[2021-10-31 11:08] VITALS: BMI 24.0
== END ==
PROVIDERS: Family Provider Nurse Practitioner Family; PCP Registered Nurse; Referring Provider Nurse Practitioner Family; Visit Provider Family Medicine
DX: E83.42 Hypomagnesemia (principal); N18.9 Chronic kidney disease, unspecified; E10.621 Type 1 diabetes mellitus with foot ulcer; L97.522 Non-pressure chronic ulcer of other part of left foot with fat layer exposed; E10.51 Type 1 diabetes mellitus with diabetic peripheral angiopathy without gangrene; Z89.611 Acquired absence of right leg above knee; Z72.0 Tobacco use
CPT/HCPCS: 80048; 83735; 99212; 99213

== ENCOUNTER → 2022-02-10 07:59 | Outpatient (ROUT) | payer MEDICARE, MEDICAID, SELFPAY ==
[2021-10-31 11:08] VITALS: BMI 24.0
[2022-02-10 08:55] LABS: Add Manual Diff / Slide Review NO; Basophils Absolute Auto 100 /uL (0-100); Basophils Percent Auto 0.8 % (0-2); Eosinophils Absolute Auto 400 /uL (0-450); Eosinophils Percent Auto 4.6 % (2-4); Hematocrit 39.9 % (41-53); Hemoglobin 13.7 g/dL (13.5-17.5); Lymphocytes Absolute Auto 2500 /uL (1100-4500); Lymphocytes Percent Auto 26.8 % (25-40); Mean Corpuscular HGB Conc 34.3 % (30-36); Mean Corpuscular Hemoglobin 29.6 PG (26-34); Mean Corpuscular Volume 86.2 fL (80-100); Monocytes Absolute Auto 800 /uL (0-900); Monocytes Percent Auto 8.5 % (3-14); Neutrophils Absolute Auto 5600 /uL (1500-7000); Neutrophils Percent Auto 59.3 % (50-75); Platelet Count 385 X10^3/uL (150-400); Red Blood Cell Count 4.62 X10^6/uL (4.5-5.9); Red Cell Distribution Width 14.8 % (11.6-14.8); White Blood Cell Count 9.4 X10^3/uL (4.5-11.0)
[2022-02-10 09:01] LABS: Hemoglobin A1C% w Est Avg Glu 6.6 % (4.0-6.0)
[2022-02-10 09:29] LABS: BUN Creatinine Ratio 20.5 (6-22); Blood Urea Nitrogen 15 mg/dL (9-20); Calcium 8.4 mg/dL (8.4-10.2); Carbon Dioxide 29 mmol/L (22-32); Chloride 100 mmol/L (98-107); Estimated Glomerular Filt Rate > 60 mL/min (>60); Glucose 109 mg/dL (80-110); HEMOLYSIS 35 (0-50); Potassium 3.8 mmol/L (3.4-5.1); Sodium 137 mmol/L (137-145)
== END ==
PROVIDERS: Family Provider Nurse Practitioner Family; PCP Registered Nurse; Visit Provider Nurse Practitioner Family
DX: D64.9 Anemia, unspecified (principal); E11.9 Type 2 diabetes mellitus without complications
CPT/HCPCS: 36415; 80048; 83036; 85025

== ENCOUNTER → 2022-04-09 14:10 | Outpatient (CLI) | payer MEDICARE, MEDICAID, SELFPAY ==
[2021-10-31 11:08] VITALS: BMI 24.0
--- NOTE | 2022-04-09 | DI.RAD.S_ITS ---
PROCEDURE: XR SHOULDER LT MIN 2V INDICATIONS: LEFT SHOULDER PAIN TECHNIQUE: Three views of the shoulder were acquired. COMPARISON: None. FINDINGS: Bones: No fractures or dislocations. No suspicious bony lesions. Visualized ribs appear intact. Soft tissues: No suspicious soft tissue calcifications. IMPRESSION: Intact left shoulder. Dictated by: Isa Guevara M.D. on 04/09/2022 at 17:35 Approved by: Isa Guevara M.D. on 04/09/2022 at 17:36
[2022-04-09 15:18] LABS: Add Manual Diff / Slide Review NO; Basophils Absolute Auto 0 /uL (0-100); Basophils Percent Auto 0.3 % (0-2); Eosinophils Absolute Auto 100 /uL (0-450); Eosinophils Percent Auto 1.2 % (2-4); Hematocrit 39.6 % (41-53); Hemoglobin 13.5 g/dL (13.5-17.5); Lymphocytes Absolute Auto 800 /uL (1100-4500); Lymphocytes Percent Auto 8.1 % (25-40); Mean Corpuscular HGB Conc 34.1 % (30-36); Mean Corpuscular Hemoglobin 29.4 PG (26-34); Mean Corpuscular Volume 86.1 fL (80-100); Monocytes Absolute Auto 1000 /uL (0-900); Monocytes Percent Auto 10.3 % (3-14); Neutrophils Absolute Auto 7900 /uL (1500-7000); Neutrophils Percent Auto 80.1 % (50-75); Platelet Count 359 X10^3/uL (150-400); Red Cell Distribution Width 13.9 % (11.6-14.8); White Blood Cell Count 9.9 X10^3/uL (4.5-11.0)
[2022-04-09 15:50] LABS: Alanine Aminotransferase 22 IU/L (<50); Albumin 3.9 g/dL (3.5-5.0); Albumin Globulin Ratio 1.2 (1.0-2.8); Alkaline Phosphatase 105 U/L (38-126); Aspartate Aminotransferase 21 IU/L (17-59); BUN Creatinine Ratio 17.7 (6-22); Bilirubin Total 0.4 mg/dL (0.2-1.3); Blood Urea Nitrogen 14 mg/dL (9-20); Calcium 8.7 mg/dL (8.4-10.2); Carbon Dioxide 29 mmol/L (22-32); Chloride 101 mmol/L (98-107); Estimated Glomerular Filt Rate > 60 mL/min (>60); Globulin 3.2 g/dL (1.7-4.1); Glucose 120 mg/dL (80-110); HEMOLYSIS < 15 (0-50); Potassium 3.7 mmol/L (3.4-5.1); Sodium 138 mmol/L (137-145); Total Protein 7.1 g/dL (6.3-8.2)
[2022-04-09 16:37] LABS: Vitamin B12 575 pg/mL (239-931)
== END ==
PROVIDERS: Family Provider Nurse Practitioner Family; PCP Nurse Practitioner Family; Referring Provider Nurse Practitioner Family; Visit Provider Nurse Practitioner Family
DX: D64.9 Anemia, unspecified (principal); M25.512 Pain in left shoulder; R53.83 Other fatigue
CPT/HCPCS: 36415; 73030; 80053; 82607; 85025

== ENCOUNTER → 2022-04-18 09:23 | Outpatient (CLI) | payer MEDICARE, MEDICAID, SELFPAY ==
[2021-10-31 11:08] VITALS: BMI 24.0
[2022-04-18 13:34] LABS: Influenza A - CEPHEID Flu A NEGATIVE (NEGATIVE); Influenza B - CEPHEID Flu B NEGATIVE (NEGATIVE); Respiratory Syncytial Virus Negative (Negative)
[2022-04-18 13:36] LABS: COVID-19 CEPHEID 4-PLEX PCR Negative (Negative)
== END ==
PROVIDERS: Family Provider Nurse Practitioner Family; PCP Nurse Practitioner Family; Referring Provider Internal Medicine; Visit Provider Internal Medicine
DX: J10.1 Influenza due to other identified influenza virus with other respiratory manifestations (principal); Z20.822 Contact with and (suspected) exposure to COVID-19
CPT/HCPCS: 0241U

== ENCOUNTER → 2022-06-09 09:48 | Outpatient (ROUT) | payer MEDICARE, MEDICAID, SELFPAY ==
[2021-10-31 11:08] VITALS: BMI 24.0
[2022-06-09 10:22] LABS: Add Manual Diff / Slide Review NO; Basophils Absolute Auto 100 /uL (0-100); Basophils Percent Auto 0.7 % (0-2); Eosinophils Absolute Auto 300 /uL (0-450); Eosinophils Percent Auto 2.4 % (2-4); Hematocrit 33.6 % (41-53); Hemoglobin 10.9 g/dL (13.5-17.5); Lymphocytes Absolute Auto 1900 /uL (1100-4500); Lymphocytes Percent Auto 17.8 % (25-40); Mean Corpuscular HGB Conc 32.5 % (30-36); Mean Corpuscular Hemoglobin 27.5 PG (26-34); Mean Corpuscular Volume 84.5 fL (80-100); Monocytes Absolute Auto 1000 /uL (0-900); Monocytes Percent Auto 9.6 % (3-14); Neutrophils Absolute Auto 7300 /uL (1500-7000); Neutrophils Percent Auto 69.5 % (50-75); Platelet Count 485 X10^3/uL (150-400); Red Blood Cell Count 3.97 X10^6/uL (4.5-5.9); Red Cell Distribution Width 13.8 % (11.6-14.8); White Blood Cell Count 10.5 X10^3/uL (4.5-11.0)
[2022-06-09 10:44] LABS: Alanine Aminotransferase 16 IU/L (<50); Albumin 3.2 g/dL (3.5-5.0); Albumin Globulin Ratio 0.9 (1.0-2.8); Alkaline Phosphatase 152 U/L (38-126); Aspartate Aminotransferase 16 IU/L (17-59); BUN Creatinine Ratio 27.4 (6-22); Bilirubin Total 0.3 mg/dL (0.2-1.3); Blood Urea Nitrogen 17 mg/dL (9-20); Calcium 8.3 mg/dL (8.4-10.2); Carbon Dioxide 31 mmol/L (22-32); Chloride 101 mmol/L (98-107); Estimated Glomerular Filt Rate > 60 mL/min (>60); Globulin 3.4 g/dL (1.7-4.1); Glucose 173 mg/dL (80-110); HEMOLYSIS < 15 (0-50); Potassium 3.7 mmol/L (3.4-5.1); Sodium 139 mmol/L (137-145); Total Protein 6.6 g/dL (6.3-8.2)
[2022-06-09 11:13] LABS: Carcinoembryonic Antigen 2.2 ng/mL (0.1-3.0)
[2022-06-09 11:15] LABS: Thyroid Stimulating Hormone 1.53 uIU/mL (0.47-4.68)
== END ==
PROVIDERS: Family Provider Nurse Practitioner Family; PCP Nurse Practitioner Family; Visit Provider Nurse Practitioner Gerontology
DX: R63.4 Abnormal weight loss (principal); R53.83 Other fatigue; E03.9 Hypothyroidism, unspecified
CPT/HCPCS: 36415; 80053; 82378; 84443; 85025

== ENCOUNTER → 2022-06-16 07:34 | Outpatient (ROUT) | payer MEDICARE, MEDICAID, SELFPAY ==
[2021-10-31 11:08] VITALS: BMI 24.0
[2022-06-16 08:00] LABS: Hemoglobin A1C% w Est Avg Glu 6.6 % (4.0-6.0)
== END ==
PROVIDERS: Family Provider Nurse Practitioner Family; PCP Nurse Practitioner Family; Visit Provider Nurse Practitioner Family
DX: E11.8 Type 2 diabetes mellitus with unspecified complications (principal)
CPT/HCPCS: 36415; 83036

== ENCOUNTER 2022-06-24 16:58 | Emergency (ER) | payer MEDICARE, MEDICAID, SELFPAY ==
[2021-10-31 11:08] VITALS: BMI 24.0
[2022-06-24 17:03] VITALS: BMI 23.3
--- NOTE | 2022-06-24 17:08 | PC.NURSE ---
Afrin administered by EMS and nose clamp in place
--- NOTE | 2022-06-24 17:53 | ED.EPISTAXIS ---
HPI - Epistaxis General Chief complaint: Nasal Problem Stated complaint: Nose bleed on plavix Time Seen by Provider: 06/24/22 17:07 Source: EMS Mode of arrival: EMS History of Present Illness HPI Narrative: 67-year-old male smoker with history of arrhythmia, peripheral vascular disease prior spinal cord injury, diabetes and on Plavix presents by EMS for evaluation of a right-sided nose bleed. He has had some nasal congestion and sneezing, denies any trauma and states that he had an episode of bleeding earlier today that resolved but it started again tonight and did not seem to stop. He denies any pain. He states that is bleeding largely from his right naris and he is cleared if few clots and felt some blood dripping down his throat. He denies dizziness, weakness or lightheadedness. Related Data Home Medications Medication Instructions Recorded Confirmed acetaminophen 325 mg tablet 650 mg PO Q4HP PRN Fever Or Pain 06/29/17 11/06/21 ##0 atorvastatin 80 mg tablet 80 mg PO BEDTIME ##0 06/29/17 08/01/21 clopidogrel 75 mg tablet 75 mg PO DAILY ##0 06/29/17 08/01/21 levothyroxine 50 mcg tablet 50 mcg PO QPM ##0 06/29/17 08/01/21 omeprazole 20 mg capsule,delayed 40 mg PO DAILY ##0 06/29/17 08/01/21 release insulin aspart U-100 100 unit/mL See Rx Instructions .Route .COMPLEX 11/25/17 08/01/21 (3 mL) subcutaneous pen (Novolog FlexPen U-100 Insulin aspart) cholecalciferol (vitamin D3) 25 2,000 unit PO DAILY 08/13/18 08/01/21 mcg (1,000 unit) capsule fluticasone propionate 50 1 spray intranasal BID 08/13/18 08/01/21 mcg/actuation nasal spray,suspension hydroxyzine pamoate 25 mg capsule 25 mg PO Q6H PRN pain/spasms 08/13/18 08/01/21 insulin glargine 100 unit/mL (3 19 unit SUBCUT BEDTIME 08/13/18 08/01/21 mL) subcutaneous pen mirtazapine 15 mg tablet 30 mg PO BEDTIME 08/13/18 08/01/21 ondansetron 4 mg disintegrating 4 mg PO Q4H PRN Nausea 08/13/18 08/01/21 tablet duloxetine 60 mg capsule,delayed 60 mg PO BEDTIME 03/02/19 08/01/21 release glucagon (human recombinant) 1 mg 1 mg IM PRN PRN blood glucose <60 03/02/19 08/01/21 solution for injection (Glucagon Emergency Kit) nystatin 100,000 unit/gram topical 1 applic topical BID PRN yeast 03/02/19 08/01/21 cream aluminum-mag hydroxide-simethicone 10 ml PO DAILY PRN Heartburn 07/04/21 11/06/21 200 mg-200 mg-20 mg/5 mL oral susp aspirin 81 mg tablet,delayed 81 mg PO DAILY 07/04/21 11/06/21 release finasteride 5 mg tablet 5 mg PO DAILY 07/04/21 08/01/21 gabapentin 600 mg tablet 600 mg PO BID 07/04/21 08/01/21 lubiprostone 24 mcg capsule 24 mcg PO BID 07/04/21 08/01/21 (Amitiza) magnesium oxide 400 mg PO DAILY 07/04/21 08/01/21 oxycodone myristate 18 mg capsule 18 mg PO BID 07/04/21 08/01/21 sprinkle extended release 12hr(DON'T CRUSH) (Xtampza ER) potassium chloride 20 mEq 20 meq PO BID 07/04/21 08/01/21 tablet,extended release(part/cryst) (Klor-Con M) sertraline 50 mg tablet 50 mg PO DAILY 07/04/21 08/01/21 tamsulosin 0.4 mg capsule 0.8 mg PO BEDTIME 07/04/21 08/01/21 Previous Rx's Medication Instructions Recorded bisacodyl 10 mg rectal suppository 10 mg MN DAILY PRN Constipation #0 07/07/21 ea naloxone 0.4 mg/mL injection 0.4 mg IM Q15-20M PRN Opioid 07/07/21 solution Overdose #0 mL oxycodone 5 mg tablet 20 mg PO Q4H PRN pain 7 days #40 07/07/21 tabs polyethylene glycol 3350 17 17 g PO DAILY PRN Constipation #0 07/07/21 gram/dose oral powder grams Allergies Allergy/AdvReac Type Severity Reaction Status Date / Time amitriptyline Allergy Verified 06/24/22 17:07 pollen extracts Allergy Verified 06/24/22 17:07 codeine [CODEINE] AdvReac Unknown nausea Verified 06/24/22 17:07 Review of Systems Review of Systems Narrative: GENERAL: Denies chills, fatigue, malaise, fever, sweats. HEENT: Denies sinus pain, ear pain, sore throat, difficulty swallowing, dizziness. RESPIRATORY: Denies dyspnea, cough, wheezing, hemoptysis, sputum. CARDIOVASCULAR: Denies chest pain, palpitations, orthopnea, edema, GASTROINTESTINAL: Denies nausea, vomiting, abdominal pain, diarrhea, constipation, melena. : Denies dysuria, frequency, incontinence, hematuria, urinary retention. MUSCULOSKELETAL: denies weakness, joint pain, or bony pain SKIN: Denies rash, skin lesions, or other NEUROLOGIC: Denies weakness, headache, numbness, change in speech, confusion, seizures, incoordination. PSYCHIATRIC: No concerning psychosocial issues. 12 point review of systems is negative except for those stated above Patient History Medical History C3 spinal cord injury C4 spinal cord injury CVA (cerebral vascular accident) Diabetes Gastroesophageal reflux disease Hyperlipidemia Hypertension Surgical History History of carotid endarterectomy History of coronary artery stent placement No pertinent past surgical history Family History Mother Cancer Father Lung disease Hyperlipidemia Brother Lupus Social History household members: other Smoking Status: Current every day smoker alcohol intake: former substance use type: does not use additional social history: He currently resides in He currently resides in [facility]. Smoking Status: Current every day smoker tobacco type: cigarettes alcohol intake frequency: holidays/special occasions only Substance Use Type: does not use Exam Narrative Exam Narrative: GEN: AOx3 and in mild distress EYES: Pupils are equal, round, and reactive to light and accommodation. Extraoccular muscles are intact bilaterally. There is no subconjunctival hemorrhage or exudate. ENT: Fresh clots in R nare, no obvious anterior source CHEST: Lungs are clear to auscultation bilaterally and free of wheezes, rales, or rhonchi. Heart rate is regular rhythm, there are no murmurs, clicks, rubs, or gallops. There is no chest wall tenderness. ABD: Abdomen is soft and nontender. There is no guarding or rebound. Bowel sounds are normal in all 4 quadrants. There is no mass or organomegaly. EXT: Full painless ROM of all extremities with no loss of sensation or strength. SKIN: Warm, pink, and dry. No erythema or rash Initial Vital Signs Initial Vital Signs: Vital Signs Temperature 97.9 F 06/24/22 19:43 Pulse Rate 74 06/24/22 19:43 Respiratory Rate 19 06/24/22 19:43 Blood Pressure 143/62 H 06/24/22 19:43 Pulse Oximetry 97 06/24/22 19:43 Oxygen Delivery Method 06/24/22 19:43 Procedures Epistaxis Control Time Out Performed: Yes Nostril: right Nose Prepped With: oxymetazoline Direct Inspection: unable to visualize Clots Removed by: blowing nose and suction Cautery Used: none Device Inserted: hemostatic balloon Device Size: 5 Patient Tolerated Procedure: well Course Orders Ordered: Discontinued Medications Oxymetazoline HCl (Oxymetazoline Nasal [place] 15 Ml) 2 sprays NASAL NOW ONE Stop: 06/24/22 17:08 Last Admin: 06/24/22 17:18 Dose: Not Given Documented By: SARA Silver Nitrate/Potassium Nitrate (Silver Nitrate Stick) 1 each TOP NOW ONE Stop: 06/24/22 17:58 Last Admin: 06/24/22 18:00 Dose: 1 each Documented By: SARA MDM - Epistaxis MDM Narrative Medical decision making narrative: [67M with nose bleed, on Plavix] Prior Charts reviewed: Prior charts noted in EMR Initially clots removed with Bledsoe tip suction, nasal clamp, cotton gauze and Afrin instilled, after 30 minutes re-evaluated and there is ongoing bleeding, I am unable to visualize the source, cautery not reasonable, rhino rocket placed Patient's symptoms improved over duration of stay with above-stated therapies. Findings and discharge diagnosis discussed with patient/family followed by verbalization of understanding Return precautions discussed with patient/family whom verbalize understanding of diagnosis and plan Discharge Plan Departure Patient Disposition: Home Clinical Impression: Epistaxis Instructions: DI for Nosebleed Activity Restrictions/Additional Instructions: *You have been diagnosed with [nosebleed] *What to do: *Please continue to take your regular medications as directed. * please follow-up with Dr. Cain at [facility]. The nasal balloon will stay in place until your follow-up. *Return to Emergency Department if you should have any new, worsening or concerning symptoms, such as [fever greater than 101 F, shaking chills, worsening pain, persistent vomiting or other bothersome symptoms] Prescriptions: No Action atorvastatin 80 MG tablet 80 mg PO BEDTIME Qty: 0 clopidogrel 75 MG tablet 75 mg PO DAILY Qty: 0 levothyroxine 50 MCG tablet 50 mcg PO QPM Qty: 0 acetaminophen 325 MG tablet 650 mg PO Q4HP PRN (Reason: Fever Or Pain) Qty: 0 omeprazole 20 MG capsule,delayed release(DR/EC) 40 mg PO DAILY Qty: 0 finasteride 5 mg tablet 5 mg PO DAILY tamsulosin 0.4 mg capsule 0.8 mg PO BEDTIME potassium chloride [Klor-Con M20] 20 mEq tablet,ER particles/crystals 20 meq PO BID sertraline 50 mg tablet 50 mg PO DAILY Xtampza ER 18 mg cap,sprinkl,ER12hr(DONT CRUSH) 18 mg PO BID gabapentin 600 mg tablet 600 mg PO BID magnesium oxide 400 mg magnesium Tablet 400 mg PO DAILY alum-mag hydroxide-simeth 200-200-20 mg/5 mL Suspension 10 ml PO DAILY PRN (Reason: Heartburn) Rx Instructions: 10-20mls lubiprostone [Amitiza] 24 mcg capsule 24 mcg PO BID aspirin 81 mg tablet,delayed release (DR/EC) 81 mg PO DAILY naloxone 0.4 mg/mL solution 0.4 mg IM Q15-20M PRN (Reason: Opioid Overdose) Qty: 0 0RF bisacodyl 10 MG suppository 10 mg MN DAILY PRN (Reason: Constipation) Qty: 0 0RF polyethylene glycol 3350 17 gram/dose powder 17 g PO DAILY PRN (Reason: Constipation) Qty: 0 0RF oxycodone 5 mg tablet 20 mg PO Q4H PRN (Reason: pain) 7 Days Qty: 40 0RF Rx Instructions: hold if too sedated mirtazapine 15 mg Tablet 30 mg PO BEDTIME fluticasone propionate 50 mcg/actuation [place],Suspension 1 spray INTRANASAL BID cholecalciferol (vitamin D3) 1,000 unit Capsule 2,000 unit PO DAILY hydroxyzine pamoate 25 mg Capsule 25 mg PO Q6H PRN (Reason: pain/spasms) insulin glargine 100 unit/mL (3 mL) Insulin Pen 19 unit SUBCUT BEDTIME ondansetron 4 mg Tablet,Disintegrating 4 mg PO Q4H PRN (Reason: Nausea) Label Comments: 1 - 2 prn nausea Glucagon Emergency Kit (human) 1 mg Recon Soln 1 mg IM PRN MDD ` PRN (Reason: blood glucose <60) duloxetine 60 mg capsule,delayed release(DR/EC) 60 mg PO BEDTIME nystatin 100,000 unit/gram Cream 1 applic TOPICAL BID PRN (Reason: yeast) insulin aspart U-100 [Novolog FlexPen U-100 Insulin] 100 unit/mL insulin pen See Rx Instructions .ROUTE .COMPLEX Rx Instructions: Per [facility] med list, insulin instructions is per Ray is to direct his own dosing of insulin based on what he is about to consume w/ meals Referrals: Herberth Cain MD [Physician] - Eli Montanez ARNP [Primary Care Provider] - Stand Alone Forms: Patient Portal/API
[2022-06-24] MEDS: SILVER NITRATE STICK 1 EACH TOP (18:00)
--- NOTE | 2022-06-24 18:39 | PC.NURSE ---
[facility] called, no transportation home available facility requests. BLS transport back home
--- NOTE | 2022-06-24 18:51 | PC.NURSE ---
patient c/o burning in nose from rhino rocket. 1ml of fluid removed by Dr Kahn.
[2022-06-24 19:43] VITALS: BP 143/62; PULSE 74; RESP 19; TEMP 36.6; O2SAT 97
== END 2022-06-24 19:40 | disposition home or self-care (01) ==
PROVIDERS: Emergency Provider Emergency Medicine; Family Provider Nurse Practitioner Family; PCP Nurse Practitioner Family
DX: R04.0 Epistaxis (principal); Z79.899 Other long term (current) drug therapy
CPT/HCPCS: 30901; 99282; 99283

== ENCOUNTER → 2022-07-07 13:37 | Outpatient (ROUT) | payer MEDICARE, MEDICAID, SELFPAY ==
[2021-10-31 11:08] VITALS: BMI 24.0
[2022-07-07 13:42] LABS: Add Manual Diff / Slide Review NO; Basophils Absolute Auto 100 /uL (0-100); Basophils Percent Auto 0.7 % (0-2); Eosinophils Absolute Auto 400 /uL (0-450); Eosinophils Percent Auto 2.5 % (2-4); Hematocrit 36.3 % (41-53); Hemoglobin 11.8 g/dL (13.5-17.5); Lymphocytes Absolute Auto 1700 /uL (1100-4500); Lymphocytes Percent Auto 11.1 % (25-40); Mean Corpuscular HGB Conc 32.4 % (30-36); Mean Corpuscular Volume 83.2 fL (80-100); Monocytes Absolute Auto 1400 /uL (0-900); Neutrophils Absolute Auto 11900 /uL (1500-7000); Neutrophils Percent Auto 76.7 % (50-75); Platelet Count 685 X10^3/uL (150-400); Red Blood Cell Count 4.37 X10^6/uL (4.5-5.9); Red Cell Distribution Width 14.4 % (11.6-14.8); White Blood Cell Count 15.5 X10^3/uL (4.5-11.0)
[2022-07-07 13:46] LABS: Alanine Aminotransferase 16 IU/L (<50); Alkaline Phosphatase 179 U/L (38-126); Aspartate Aminotransferase 37 IU/L (17-59); Bilirubin Total 0.4 mg/dL (0.2-1.3); Blood Urea Nitrogen 20 mg/dL (9-20); Carbon Dioxide 38 mmol/L (22-32); Chloride 94 mmol/L (98-107); Estimated Glomerular Filt Rate > 60 mL/min (>60); Globulin 3.9 g/dL (1.7-4.1); Glucose 108 mg/dL (80-110); HEMOLYSIS 15 (0-50); Potassium 4.1 mmol/L (3.4-5.1); Sodium 136 mmol/L (137-145); Total Protein 7.9 g/dL (6.3-8.2)
[2022-07-07 17:18] LABS: Procalcitonin 0.07 ng/mL (<0.5)
== END ==
PROVIDERS: Family Provider Nurse Practitioner Family; PCP Nurse Practitioner Family; Visit Provider Nurse Practitioner Gerontology
DX: D72.829 Elevated white blood cell count, unspecified (principal)
CPT/HCPCS: 80053; 84145; 85025

== ENCOUNTER 2022-07-07 19:20 | Emergency (ER) | payer MEDICARE, MEDICAID, SELFPAY ==
[2021-10-31 11:08] VITALS: BMI 24.0
[2022-07-07 19:25] VITALS: BP 130/76; PULSE 86; RESP 16; TEMP 36.4; O2SAT 96; BMI 23.3
--- NOTE | 2022-07-07 19:52 | DI.CT.S_ITS ---
PROCEDURE: CT ABDOMEN PELVIS W CON INDICATIONS: vomiting and ABD pain TECHNIQUE: After the administration of IV contrast, axial sections were acquired from the lung bases to the pubic symphysis. Coronal and sagittal reformats were performed. For radiation dose reduction, the following was used: automated exposure control, adjustment of mA and/or kV according to patient size. COMPARISON: [facility], CT, CT ABDOMEN PELVIS W CON, 03/05/2018, 20:39. FINDINGS: Image quality: Excellent. Lung bases: There is dependent atelectasis bilaterally. Heart: Heart is normal in size. There is a small hiatal hernia with mild wall thickening of the visualized distal esophagus ABDOMEN: Liver: No mass lesion. Gallbladder: Within normal limits without calcified gallstones. Biliary ducts: No biliary ductal dilatation. Pancreas: Unremarkable. Spleen: Normal in size. Adrenal Glands: No adrenal nodules. Kidneys and Ureters: No hydronephrosis. An area of indistinct heterogeneous enhancement in the superior pole of the right kidney appears similar to the prior study. Stomach and Bowel: Stomach and small bowel loops are normal in caliber and wall thickness. The appendix is normal. There is moderate stool distention throughout the colon suggestive of constipation. Peritoneum: No abnormal intraperitoneal fluid. No free air. Ventral Wall: No hernia. Abdominal Nodes: No retroperitoneal or mesenteric adenopathy by size criteria. Vessels: Aorta and inferior vena cava are normal in size. PELVIS: Pelvic Organs: Unremarkable. Bladder: There is slight bladder wall thickening. Pelvic Nodes: No enlarged lymph nodes. Miscellaneous: No inguinal hernias are seen. Bones: There is a compression fracture of the L1 vertebral body which appears unchanged. There are sequelae of prior postsurgical and posttraumatic changes within the proximal right femur. Visualized osseous structures demonstrate no suspicious focal lesions. IMPRESSION: 1. Moderate stool distention of the colon suggestive of constipation. No evidence of small-bowel obstruction. 2. Mild bladder wall thickening may reflect a cystitis. Recommend correlation with urinalysis. 3. Chronic compression fracture of the L1 vertebral body appears unchanged. Dictated by: Artemio Vaz M.D. on 07/07/2022 at 21:11 Approved by: Artemio Vaz M.D. on 07/07/2022 at 21:15
--- NOTE | 2022-07-07 19:53 | ED.NAVMDI ---
HPI - Nausea/Vomiting/Diarrhea General Chief complaint: Nausea/Vomiting/Diarrhea Stated complaint: [place] x 1 week, from [place] Time Seen by Provider: 07/07/22 19:44 Source: patient Mode of arrival: EMS Limitations: no limitations History of Present Illness HPI Narrative: Patient is a 67-year-old male. Is at a rehab facility secondary to history of a stroke. He also has a right leg amputation. Was sent over for evaluation of nausea and vomiting for the past week. He also states that he is having some abdominal tenderness. He had labs drawn this morning by primary provider which showed an elevation in the white blood cell count. Apparently he had been given nausea medicine without much improvement. He denies fevers. No chest pain. No shortness of breath. No urinary symptoms. Related Data Home Medications Medication Instructions Recorded Confirmed acetaminophen 325 mg tablet 650 mg PO Q4HP PRN Fever Or Pain 06/29/17 11/06/21 ##0 atorvastatin 80 mg tablet 80 mg PO BEDTIME ##0 06/29/17 08/01/21 clopidogrel 75 mg tablet 75 mg PO DAILY ##0 06/29/17 08/01/21 levothyroxine 50 mcg tablet 50 mcg PO QPM ##0 06/29/17 08/01/21 omeprazole 20 mg capsule,delayed 40 mg PO DAILY ##0 06/29/17 08/01/21 release insulin aspart U-100 100 unit/mL See Rx Instructions .Route .COMPLEX 11/25/17 08/01/21 (3 mL) subcutaneous pen (Novolog FlexPen U-100 Insulin aspart) cholecalciferol (vitamin D3) 25 2,000 unit PO DAILY 08/13/18 08/01/21 mcg (1,000 unit) capsule fluticasone propionate 50 1 spray intranasal BID 08/13/18 08/01/21 mcg/actuation nasal spray,suspension hydroxyzine pamoate 25 mg capsule 25 mg PO Q6H PRN pain/spasms 08/13/18 08/01/21 insulin glargine 100 unit/mL (3 19 unit SUBCUT BEDTIME 08/13/18 08/01/21 mL) subcutaneous pen mirtazapine 15 mg tablet 30 mg PO BEDTIME 08/13/18 08/01/21 ondansetron 4 mg disintegrating 4 mg PO Q4H PRN Nausea 08/13/18 08/01/21 tablet duloxetine 60 mg capsule,delayed 60 mg PO BEDTIME 03/02/19 08/01/21 release glucagon (human recombinant) 1 mg 1 mg IM PRN PRN blood glucose <60 03/02/19 08/01/21 solution for injection (Glucagon Emergency Kit) nystatin 100,000 unit/gram topical 1 applic topical BID PRN yeast 03/02/19 08/01/21 cream aluminum-mag hydroxide-simethicone 10 ml PO DAILY PRN Heartburn 07/04/21 11/06/21 200 mg-200 mg-20 mg/5 mL oral susp aspirin 81 mg tablet,delayed 81 mg PO DAILY 07/04/21 11/06/21 release finasteride 5 mg tablet 5 mg PO DAILY 07/04/21 08/01/21 gabapentin 600 mg tablet 600 mg PO BID 07/04/21 08/01/21 lubiprostone 24 mcg capsule 24 mcg PO BID 07/04/21 08/01/21 (Amitiza) magnesium oxide 400 mg PO DAILY 07/04/21 08/01/21 oxycodone myristate 18 mg capsule 18 mg PO BID 07/04/21 08/01/21 sprinkle extended release 12hr(DON'T CRUSH) (Xtampza ER) potassium chloride 20 mEq 20 meq PO BID 07/04/21 08/01/21 tablet,extended release(part/cryst) (Klor-Con M) sertraline 50 mg tablet 50 mg PO DAILY 07/04/21 08/01/21 tamsulosin 0.4 mg capsule 0.8 mg PO BEDTIME 07/04/21 08/01/21 Previous Rx's Medication Instructions Recorded bisacodyl 10 mg rectal suppository 10 mg CO DAILY PRN Constipation #0 07/07/21 ea naloxone 0.4 mg/mL injection 0.4 mg IM Q15-20M PRN Opioid 07/07/21 solution Overdose #0 mL oxycodone 5 mg tablet 20 mg PO Q4H PRN pain 7 days #40 07/07/21 tabs polyethylene glycol 3350 17 17 g PO DAILY PRN Constipation #0 07/07/21 gram/dose oral powder grams cephalexin 500 mg capsule 500 mg PO BID 5 days #10 caps 07/08/22 Allergies Allergy/AdvReac Type Severity Reaction Status Date / Time amitriptyline Allergy Verified 06/24/22 17:07 pollen extracts Allergy Verified 06/24/22 17:07 codeine [CODEINE] AdvReac Unknown nausea Verified 06/24/22 17:07 Review of Systems Constitutional Constitutional: Reports system reviewed and no additional complaints, except as documented Gastrointestinal Gastrointestinal: Reports system reviewed and no additional complaints, except as documented Genitourinary Genitourinary: Reports system reviewed and no additional complaints, except as documented Patient History Medical History C3 spinal cord injury C4 spinal cord injury CVA (cerebral vascular accident) Diabetes Gastroesophageal reflux disease Hyperlipidemia Hypertension Surgical History History of carotid endarterectomy History of coronary artery stent placement No pertinent past surgical history Family History Mother Cancer Father Lung disease Hyperlipidemia Brother Lupus Social History household members: other Smoking Status: Current every day smoker alcohol intake: former substance use type: does not use additional social history: He currently resides in He currently resides in [facility]. Smoking Status: Current every day smoker tobacco type: cigarettes alcohol intake frequency: holidays/special occasions only Substance Use Type: does not use Exam Initial Vital Signs Initial Vital Signs: Vital Signs Temperature 97.6 F 07/07/22 19:25 Pulse Rate 86 07/07/22 19:25 Respiratory Rate 16 07/07/22 19:25 Blood Pressure 130/76 07/07/22 19:25 Pulse Oximetry 96 07/07/22 19:25 Oxygen Delivery Method Room Air 07/07/22 19:25 [facility] Head: normal to inspection and normocephalic GI Inspection: normal to inspection Palpation: soft, No firm and tender (Slight diffuse tenderness) Neuro General: patient alert and patient awake Course Orders Ordered: ED Orders 07/07/22 20:15 Complete Blood Count AUTO DIFF Stat Comprehensive Metabolic Panel Stat Lipase Stat 07/07/22 23:25 Urine Culture Stat Urine Microscopic Stat Discontinued Medications Cephalexin HCl (Cephalexin 250 Mg Capsule) 500 mg PO NOW ONE Stop: 07/08/22 00:38 Last Admin: 07/08/22 01:12 Dose: 500 mg Documented By: JIMMY Sodium Chloride (Normal Saline 0.9%) 1,000 mls @ 1,000 mls/hr IV BOLUS ONE Stop: 07/07/22 20:51 Last Infusion: 07/07/22 23:31 Dose: 0 mls/hr Documented By: Admin: 07/07/22 21:33 Dose: 1,000 mls/hr Documented By: CAROLYNE Lorazepam (Lorazepam 2 Mg/Ml Inj) 1 mg IV NOW ONE Stop: 07/07/22 23:14 Last Admin: 07/07/22 23:31 Dose: 1 mg Documented By: JIMMY Promethazine HCl (Promethazine 25 Mg Supp) 25 mg CO NOW ONE Stop: 07/07/22 21:27 Last Admin: 07/07/22 21:51 Dose: 25 mg Documented By: HARVEY Vital Signs Vital signs: Vital Signs - 8 hr 07/07/22 23:59 07/08/22 00:00 07/08/22 00:01 Pulse Rate 88 89 Blood Pressure 125/60 Pulse Oximetry 95 96 07/08/22 00:01 07/08/22 00:21 07/08/22 00:30 Pulse Rate 88 88 Blood Pressure 115/58 L Pulse Oximetry 96 100 07/08/22 01:00 07/08/22 01:30 07/08/22 02:01 Pulse Rate Blood Pressure 117/58 L 149/70 H 114/59 L Pulse Oximetry 07/08/22 02:30 07/08/22 03:00 07/08/22 03:30 Pulse Rate Blood Pressure 113/55 L 119/59 L 119/56 L Pulse Oximetry MDM - Nausea/Vomiting/Diarrhea Lab Data Attestation: I reviewed the patient's lab results. 07/07/22 20:15 07/07/22 20:15 Labs: Lab Results 07/07/22 07/07/22 07/07/22 Range/Units 20:15 20:15 23:25 WBC 13.4 H (4.5-11.0) X10^3/uL RBC 4.05 L (4.5-5.9) X10^6/uL Hgb 11.0 L (13.5-17.5) g/dL Hct 33.4 L (41-53) % MCV 82.6 (80-100) fL MCH 27.1 (26-34) PG MCHC 32.8 (30-36) % RDW 14.4 (11.6-14.8) % Plt Count 568 H (150-400) X10^3/uL Neut % (Auto) 81.6 H (50-75) % Lymph % (Auto) 8.6 L (25-40) % Clay % (Auto) 6.8 (3-14) % Eos % (Auto) 2.0 (2-4) % Baso % (Auto) 1.0 (0-2) % Neut # (Auto) 08640 H (2855-0998) /uL Lymph # (Auto) 1200 (3074-8212) /uL Clay # (Auto) 900 (0-900) /uL Eos # (Auto) 300 (0-450) /uL Baso # (Auto) 100 (0-100) /uL Sodium 133 L (137-145) mmol/L Potassium 4.1 (3.4-5.1) mmol/L Chloride 90 L (98-107) mmol/L Carbon Dioxide 38 H (22-32) mmol/L BUN 21 H (9-20) mg/dL Creatinine 0.83 (0.66-1.25) mg/dL Estimated GFR > 60 (>60) mL/min BUN/Creatinine Ratio 25.3 H (6-22) Glucose 256 H D (80-110) mg/dL Calcium 8.4 (8.4-10.2) mg/dL Total Bilirubin 0.3 (0.2-1.3) mg/dL AST 18 (17-59) IU/L ALT 17 (<50) IU/L Alkaline Phosphatase 171 H (38-126) U/L Total Protein 7.3 (6.3-8.2) g/dL Albumin 3.6 (3.5-5.0) g/dL Globulin 3.7 (1.7-4.1) g/dL Albumin/Globulin Ratio 1.0 (1.0-2.8) Lipase 14 L (23-300) U/L Urine RBC 10-30/hpf H (0-5/HPF) Urine WBC 1-5/hpf (0-5/HPF) Ur Squamous Epith Cells 0-1 /hpf (0-5/HPF) Urine Bacteria Few (2-10) H (None) Ur Culture Indicated? Specimen cultured Urine Dip Bedside Urine Glucose Negative Bedside Urine Bilirubin - Negative Bedside Urine Ketone +/- 5 Urine Specific Dorothy 1.005 Bedside Urine Occult Blood +++ Bedside Urine pH 8.5 Bedside Urine Protein +/- 15 Bedside Urine Urobilinogen - Negative Bedside Urine Nitrite - Negative Bedside Urine Leukocytes + [address] scan - abdomen/pelvis: Radiologist's Impression: PROCEDURE:? CT ABDOMEN PELVIS W CON ? INDICATIONS:? vomiting and ABD pain ? TECHNIQUE:? After the administration of IV contrast, axial sections were acquired from the lung bases to the pubic symphysis.? Coronal and sagittal reformats were performed.? For radiation dose reduction, the following was used:? automated exposure control, adjustment of mA and/or kV according to patient size. ? COMPARISON:? [facility], CT, CT ABDOMEN PELVIS W CON, 03/05/2018, 20:39. ? FINDINGS:? Image quality:? Excellent.? ? Lung bases:? There is dependent atelectasis bilaterally.? ? Heart:? Heart is normal in size.? There is a small hiatal hernia with mild wall thickening of the visualized distal esophagus ? ? ABDOMEN: Liver:? No mass lesion. Gallbladder:? Within normal limits without calcified gallstones.? ? Biliary ducts:? No biliary ductal dilatation.? ? Pancreas:? Unremarkable.? ? Spleen:? Normal in size.? ? Adrenal Glands:? No adrenal nodules.? ? Kidneys and Ureters:? No hydronephrosis.? An area of indistinct heterogeneous enhancement in the superior pole of the right kidney appears similar to the prior study.? ? ? Stomach and Bowel:? Stomach and small bowel loops are normal in caliber and wall thickness.? The appendix is normal.? There is moderate stool distention throughout the colon suggestive of constipation. Peritoneum:? No abnormal intraperitoneal fluid.? No free air.? ? Ventral Wall:? ?No hernia.? Abdominal Nodes:? No retroperitoneal or mesenteric adenopathy by size criteria.? Vessels:? Aorta and inferior vena cava are normal in size.? ? PELVIS: Pelvic Organs:? Unremarkable.? ? Bladder:? There is slight bladder wall thickening. Pelvic Nodes: No enlarged lymph nodes.? Miscellaneous: No inguinal hernias are seen.? Bones:? There is a compression fracture of the L1 vertebral body which appears unchanged. ?There are sequelae of prior postsurgical and posttraumatic changes within the proximal right femur.? Visualized osseous structures demonstrate no suspicious focal lesions. ? IMPRESSION:? ? 1. Moderate stool distention of the colon suggestive of constipation.? No evidence of small-bowel obstruction. ? 2. Mild bladder wall thickening may reflect a cystitis.? Recommend correlation with urinalysis. ? 3. Chronic compression fracture of the L1 vertebral body appears unchanged.? MDM Narrative Medical decision making narrative: Patient does have a leukocytosis here in the emergency department but he is also been vomiting. Does have diffuse abdominal tenderness but relatively benign exam. No distention. Certainly not a surgical abdomen. CT scan does show moderate stool distention. Patient does reports that he is not had a bowel movement the past couple days. This very well could be the cause of his abdominal tenderness and also potentially some of his vomiting however there is no signs of any obstruction. He does have thickening of the bladder. His urinalysis does have red cells and white cells and bacteria. Urinary tract infection could also be the cause of his vomiting. Initially had difficult time controlling his nausea. Patient received Zofran prior to arrival. Received Reglan here which she states helped his symptoms somewhat. He then received rectal Phenergan which again states only slightly helped his symptoms. He was then given Ativan. He was able to tolerate a dose of antibiotics here in the ER and was able to sip on water. Will discharge patient home with a prescription for antibiotics. He can receive further nausea medication by his primary doctor at the rehab facility. There is no indication for surgical consultation. No indication for admission to the hospital. Patient was given return precautions. Patient was transported home by [facility]. Discharge Plan Departure Patient Disposition: Home Clinical Impression: Nausea, Urinary tract infection, Constipation Instructions: DI for Urinary Tract Infection (UTI), DI for Constipation, DI for Nausea -- Adult Activity Restrictions/Additional Instructions: Ray can continue to get all of his medications. I recommend that his primary doctor be notified of his visit today. His urinalysis today is consistent with a urinary tract infection. Recommend he take antibiotics as directed. Prescriptions: New cephalexin 500 mg capsule 500 mg PO BID 5 Days Qty: 10 0RF No Action atorvastatin 80 MG tablet 80 mg PO BEDTIME Qty: 0 clopidogrel 75 MG tablet 75 mg PO DAILY Qty: 0 levothyroxine 50 MCG tablet 50 mcg PO QPM Qty: 0 acetaminophen 325 MG tablet 650 mg PO Q4HP PRN (Reason: Fever Or Pain) Qty: 0 omeprazole 20 MG capsule,delayed release(DR/EC) 40 mg PO DAILY Qty: 0 finasteride 5 mg tablet 5 mg PO DAILY tamsulosin 0.4 mg capsule 0.8 mg PO BEDTIME potassium chloride [Klor-Con M20] 20 mEq tablet,ER particles/crystals 20 meq PO BID sertraline 50 mg tablet 50 mg PO DAILY Xtampza ER 18 mg cap,sprinkl,ER12hr(DONT CRUSH) 18 mg PO BID gabapentin 600 mg tablet 600 mg PO BID magnesium oxide 400 mg magnesium Tablet 400 mg PO DAILY alum-mag hydroxide-simeth 200-200-20 mg/5 mL Suspension 10 ml PO DAILY PRN (Reason: Heartburn) Rx Instructions: 10-20mls lubiprostone [Amitiza] 24 mcg capsule 24 mcg PO BID aspirin 81 mg tablet,delayed release (DR/EC) 81 mg PO DAILY naloxone 0.4 mg/mL solution 0.4 mg IM Q15-20M PRN (Reason: Opioid Overdose) Qty: 0 0RF bisacodyl 10 MG suppository 10 mg CO DAILY PRN (Reason: Constipation) Qty: 0 0RF polyethylene glycol 3350 17 gram/dose powder 17 g PO DAILY PRN (Reason: Constipation) Qty: 0 0RF oxycodone 5 mg tablet 20 mg PO Q4H PRN (Reason: pain) 7 Days Qty: 40 0RF Rx Instructions: hold if too sedated mirtazapine 15 mg Tablet 30 mg PO BEDTIME fluticasone propionate 50 mcg/actuation [place],Suspension 1 spray INTRANASAL BID cholecalciferol (vitamin D3) 1,000 unit Capsule 2,000 unit PO DAILY hydroxyzine pamoate 25 mg Capsule 25 mg PO Q6H PRN (Reason: pain/spasms) insulin glargine 100 unit/mL (3 mL) Insulin Pen 19 unit SUBCUT BEDTIME ondansetron 4 mg Tablet,Disintegrating 4 mg PO Q4H PRN (Reason: Nausea) Patient Comments: 1 - 2 prn nausea Glucagon Emergency Kit (human) 1 mg Recon Soln 1 mg IM PRN MDD ` PRN (Reason: blood glucose <60) duloxetine 60 mg capsule,delayed release(DR/EC) 60 mg PO BEDTIME nystatin 100,000 unit/gram Cream 1 applic TOPICAL BID PRN (Reason: yeast) insulin aspart U-100 [Novolog FlexPen U-100 Insulin] 100 unit/mL insulin pen See Rx Instructions .ROUTE .COMPLEX Rx Instructions: Per [facility] med list, insulin instructions is per Ray is to direct his own dosing of insulin based on what he is about to consume w/ meals Referrals: Eli Montanez ARNP [Primary Care Provider] - Stand Alone Forms: Patient Portal/API
[2022-07-07 20:25] LABS: Add Manual Diff / Slide Review NO; Basophils Absolute Auto 100 /uL (0-100); Eosinophils Absolute Auto 300 /uL (0-450); Hematocrit 33.4 % (41-53); Lymphocytes Absolute Auto 1200 /uL (1100-4500); Lymphocytes Percent Auto 8.6 % (25-40); Mean Corpuscular HGB Conc 32.8 % (30-36); Mean Corpuscular Hemoglobin 27.1 PG (26-34); Mean Corpuscular Volume 82.6 fL (80-100); Monocytes Absolute Auto 900 /uL (0-900); Monocytes Percent Auto 6.8 % (3-14); Neutrophils Absolute Auto 11000 /uL (1500-7000); Neutrophils Percent Auto 81.6 % (50-75); Platelet Count 568 X10^3/uL (150-400); Red Blood Cell Count 4.05 X10^6/uL (4.5-5.9); Red Cell Distribution Width 14.4 % (11.6-14.8); White Blood Cell Count 13.4 X10^3/uL (4.5-11.0)
[2022-07-07 20:45] LABS: Alanine Aminotransferase 17 IU/L (<50); Albumin 3.6 g/dL (3.5-5.0); Alkaline Phosphatase 171 U/L (38-126); Aspartate Aminotransferase 18 IU/L (17-59); BUN Creatinine Ratio 25.3 (6-22); Bilirubin Total 0.3 mg/dL (0.2-1.3); Blood Urea Nitrogen 21 mg/dL (9-20); Calcium 8.4 mg/dL (8.4-10.2); Carbon Dioxide 38 mmol/L (22-32); Chloride 90 mmol/L (98-107); Estimated Glomerular Filt Rate > 60 mL/min (>60); Globulin 3.7 g/dL (1.7-4.1); Glucose 256 mg/dL (80-110); HEMOLYSIS < 15 (0-50); Lipase 14 U/L (23-300); Potassium 4.1 mmol/L (3.4-5.1); Sodium 133 mmol/L (137-145); Total Protein 7.3 g/dL (6.3-8.2)
[2022-07-07] MEDS: SODIUM CHLORIDE 0.9% 1,000 ML 1000 ML IV (21:33)
[2022-07-07] MEDS: PROMETHAZINE 25 MG SUPP PR (21:51)
--- NOTE | 2022-07-07 22:24 | PC.NURSE ---
SOCIAL SERVICES MANAGER NOTE changed brief and performed oanh care
[2022-07-07] MEDS: LORazepam 2 MG/ML INJ 1 MG IV (23:31)
[2022-07-07 23:44] LABS: Bacteria Urine Few (2-10); Culture Indicated Urine Specimen Cultured; RBC Urine 10-30/HPF (0-5/HPF); Squamous Epithelial Cell Urine 0-1 /HPF (0-5/HPF); WBC Urine 1-5/HPF (0-5/HPF)
[2022-07-07 23:59] VITALS: PULSE 88; O2SAT 95
[2022-07-08] VITALS (10 sets, daily range): BP systolic 113–149; BP diastolic 55–70; PULSE 88–89; O2SAT 96–100
[2022-07-08] MEDS: cephALEXin 250 MG CAPSULE 500 MG PO (01:12)
== END 2022-07-08 03:56 | disposition home or self-care (01) ==
PROVIDERS: Emergency Provider Emergency Medicine; Family Provider Nurse Practitioner Family; PCP Nurse Practitioner Family
DX: N39.0 Urinary tract infection, site not specified (principal); K59.00 Constipation, unspecified; R11.0 Nausea; R10.9 Unspecified abdominal pain; Z79.899 Other long term (current) drug therapy; D72.829 Elevated white blood cell count, unspecified
CPT/HCPCS: 36415; 74177; 80053; 81003; 81015; 83690; 84145; 85025; 87077; 87086; 87186; 96361; 96374; 99284; J2060; Q9967

== ENCOUNTER 2022-07-09 07:28 | Emergency (ER) | payer MEDICARE, MEDICAID, SELFPAY ==
[2021-10-31 11:08] VITALS: BMI 24.0
[2022-07-09] VITALS (13 sets, daily range): BP systolic 107–185; BP diastolic 55–79; PULSE 74–88; RESP 12–17; TEMP 36.9; O2SAT 94–99
--- NOTE | 2022-07-09 07:31 | ED_ITS ---
HPI - Nausea/Vomiting/Diarrhea General Chief complaint: Nausea/Vomiting/Diarrhea Stated complaint: Vomiting Time Seen by Provider: 07/09/22 07:31 Source: patient, EMS, RN notes reviewed and old records reviewed Mode of arrival: EMS Limitations: no limitations History of Present Illness HPI Narrative: This is a 67-year-old male uses tobacco with history of arrhythmia, peripheral vascular disease, prior C3/C4 spinal cord injury, stroke, diabetes hypertension and dyslipidemia and GERD on prior right leg amputation. Patient presents with complaint of nausea and vomiting he was seen here 2 days ago for same, patient states episodes have been going on for the past 2-3 weeks. He denies fevers or chills. He denies chest pain or shortness of breath. He is had nausea and vomiting intermittently he states he has been able to take liquids without much issue but has had difficulty with his pills and solids. Patient does not endorse any dysphasia or difficulty swallowing. He states it is more nausea he has had some abdominal pain which he describes as generalized. He denies any back or flank pain. States he had a bowel movement yesterday that was normal. He denies any new urinary symptoms no dysuria, urgency or frequency. Patient has history of carotid endarterectomy, cardiac stents. Patient was seen for upper and lower endoscopy in October of 2021, patient had old blood in the stomach but no clear source on EGD, colonoscopy was canceled the patient had a semi solid bowel movement just prior to the colonoscopy. Patient does use tobacco, occasional alcohol, denies illicit. He is currently at [facility], you received 10 mg of Zofran prior to arrival with his facility. Related Data Home Medications Medication Instructions Recorded Confirmed acetaminophen 325 mg tablet 650 mg PO Q4HP PRN Fever Or Pain 06/29/17 11/06/21 ##0 atorvastatin 80 mg tablet 80 mg PO BEDTIME ##0 06/29/17 08/01/21 clopidogrel 75 mg tablet 75 mg PO DAILY ##0 06/29/17 08/01/21 levothyroxine 50 mcg tablet 50 mcg PO QPM ##0 06/29/17 08/01/21 omeprazole 20 mg capsule,delayed 40 mg PO DAILY ##0 06/29/17 08/01/21 release insulin aspart U-100 100 unit/mL See Rx Instructions .Route .COMPLEX 11/25/17 08/01/21 (3 mL) subcutaneous pen (Novolog FlexPen U-100 Insulin aspart) cholecalciferol (vitamin D3) 25 2,000 unit PO DAILY 08/13/18 08/01/21 mcg (1,000 unit) capsule fluticasone propionate 50 1 spray intranasal BID 08/13/18 08/01/21 mcg/actuation nasal spray,suspension hydroxyzine pamoate 25 mg capsule 25 mg PO Q6H PRN pain/spasms 08/13/18 08/01/21 insulin glargine 100 unit/mL (3 19 unit SUBCUT BEDTIME 08/13/18 08/01/21 mL) subcutaneous pen mirtazapine 15 mg tablet 30 mg PO BEDTIME 08/13/18 08/01/21 ondansetron 4 mg disintegrating 4 mg PO Q4H PRN Nausea 08/13/18 08/01/21 tablet duloxetine 60 mg capsule,delayed 60 mg PO BEDTIME 03/02/19 08/01/21 release glucagon (human recombinant) 1 mg 1 mg IM PRN PRN blood glucose <60 03/02/19 08/01/21 solution for injection (Glucagon Emergency Kit) nystatin 100,000 unit/gram topical 1 applic topical BID PRN yeast 03/02/19 08/01/21 cream aluminum-mag hydroxide-simethicone 10 ml PO DAILY PRN Heartburn 07/04/21 11/06/21 200 mg-200 mg-20 mg/5 mL oral susp aspirin 81 mg tablet,delayed 81 mg PO DAILY 07/04/21 11/06/21 release finasteride 5 mg tablet 5 mg PO DAILY 07/04/21 08/01/21 gabapentin 600 mg tablet 600 mg PO BID 07/04/21 08/01/21 lubiprostone 24 mcg capsule 24 mcg PO BID 07/04/21 08/01/21 (Amitiza) magnesium oxide 400 mg PO DAILY 07/04/21 08/01/21 oxycodone myristate 18 mg capsule 18 mg PO BID 07/04/21 08/01/21 sprinkle extended release 12hr(DON'T CRUSH) (Xtampza ER) potassium chloride 20 mEq 20 meq PO BID 07/04/21 08/01/21 tablet,extended release(part/cryst) (Klor-Con M) sertraline 50 mg tablet 50 mg PO DAILY 07/04/21 08/01/21 tamsulosin 0.4 mg capsule 0.8 mg PO BEDTIME 07/04/21 08/01/21 Previous Rx's Medication Instructions Recorded bisacodyl 10 mg rectal suppository 10 mg IA DAILY PRN Constipation #0 07/07/21 ea naloxone 0.4 mg/mL injection 0.4 mg IM Q15-20M PRN Opioid 07/07/21 solution Overdose #0 mL oxycodone 5 mg tablet 20 mg PO Q4H PRN pain 7 days #40 07/07/21 tabs polyethylene glycol 3350 17 17 g PO DAILY PRN Constipation #0 07/07/21 gram/dose oral powder grams cephalexin 500 mg capsule 500 mg PO BID 5 days #10 caps 07/08/22 cefpodoxime 200 mg tablet 200 mg PO BID #20 tabs 07/09/22 lorazepam 1 mg tablet (Ativan) 1 mg PO TID PRN nausea and 07/09/22 vomiting #10 tabs Allergies Allergy/AdvReac Type Severity Reaction Status Date / Time amitriptyline Allergy Verified 07/09/22 07:43 pollen extracts Allergy Verified 07/09/22 07:43 codeine [CODEINE] AdvReac Unknown nausea Verified 07/09/22 07:43 Review of Systems Review of Systems ROS Unobtainable: All systems reviewed & are unremarkable except as noted in HPI and below Patient History Medical History (Updated 07/09/22 @ 11:32 by Lara Acharya DO) C3 spinal cord injury C4 spinal cord injury CVA (cerebral vascular accident) Diabetes Gastroesophageal reflux disease Hyperlipidemia Hypertension Surgical History History of carotid endarterectomy History of coronary artery stent placement No pertinent past surgical history Family History Mother Cancer Father Lung disease Hyperlipidemia Brother Lupus Social History household members: other Smoking Status: Current every day smoker alcohol intake: former substance use type: does not use additional social history: He currently resides in He currently resides in [facility]. Smoking Status: Current every day smoker tobacco type: cigarettes alcohol intake frequency: holidays/special occasions only Substance Use Type: does not use Exam Narrative Exam Narrative: GENERAL: Alert and oriented x three, male in mild distress. HEENT: Head normocephalic, atraumatic, EOMI, pupils reactive, face symmetric, moist mucous membranes NECK: Supple, full range of motion CARDIOVASCULAR: Regular rate and rhythm without murmurs, rubs or gallops. RESPIRATORY: Breath sounds equal bilaterally, no wheezes rales or rhonchi. ABDOMEN: Soft, mild generalized tenderness, nondistended. Normoactive bowel sounds all 4 quadrants. No guarding or rebound, rigidity, no mass : No CVA tenderness EXTREMITIES: Patient has decreased function of the right upper extremity, he has amputation of the right lower leg, no clubbing or edema. Neurovascularly intact. NEUROLOGICAL: Cranial nerves II through XII grossly intact. Moving all extremities SKIN: Warm, dry, no petechiae, no rashes or lesions. Initial Vital Signs Initial Vital Signs: Vital Signs Pulse Rate 85 07/09/22 07:36 Pulse Oximetry 95 07/09/22 07:36 Course Orders Ordered: Discontinued Medications Sodium Chloride (Normal Saline 0.9%) 1,000 mls @ 1,000 mls/hr IV BOLUS ONE Stop: 07/09/22 08:36 Last Infusion: 07/09/22 09:08 Dose: 0 mls/hr Documented By: Admin: 07/09/22 08:18 Dose: 1,000 mls/hr Documented By: NORA Ceftriaxone Sodium 1,000 mg/ (Sodium Chloride) 100 mls @ 200 mls/hr IV NOW ONE Stop: 07/09/22 09:19 Last Infusion: 07/09/22 10:38 Dose: 0 mls/hr Documented By: Admin: 07/09/22 09:51 Dose: 200 mls/hr Documented By: NORA Lorazepam (Lorazepam 2 Mg/Ml Inj) 0.5 mg IV NOW ONE Stop: 07/09/22 07:38 Last Admin: 07/09/22 08:19 Dose: 0.5 mg Documented By: NORA Pantoprazole Sodium (Pantoprazole 40 Mg Vial) 40 mg IV NOW ONE Stop: 07/09/22 07:44 Last Admin: 07/09/22 08:19 Dose: 40 mg Documented By: NORA Vital Signs Vital signs: Vital Signs - 8 hr 07/09/22 14:33 Pulse Rate 74 Respiratory Rate 16 Blood Pressure 107/55 L Pulse Oximetry 97 Oxygen Delivery Method Room Air MDM - Nausea/Vomiting/Diarrhea Lab Data 07/09/22 07:35 07/09/22 07:35 Labs: Lab Results 07/09/22 07/09/22 07/09/22 Range/Units 07:35 07:35 07:35 WBC 17.5 H (4.5-11.0) X10^3/uL RBC 4.05 L (4.5-5.9) X10^6/uL Hgb 10.8 L (13.5-17.5) g/dL Hct 33.5 L (41-53) % MCV 82.7 (80-100) fL MCH 26.7 (26-34) PG MCHC 32.3 (30-36) % RDW 14.5 (11.6-14.8) % Plt Count 613 H (150-400) X10^3/uL Neut % (Auto) 84.8 H (50-75) % Lymph % (Auto) 7.3 L (25-40) % [place] % (Auto) 4.9 (3-14) % Eos % (Auto) 2.3 (2-4) % Baso % (Auto) 0.7 (0-2) % Neut # (Auto) 61219 H (9401-2998) /uL Lymph # (Auto) 1300 (5461-0709) /uL [place] # (Auto) 900 (0-900) /uL Eos # (Auto) 400 (0-450) /uL Baso # (Auto) 100 (0-100) /uL Sodium 135 L (137-145) mmol/L Potassium 3.5 (3.4-5.1) mmol/L Chloride 92 L (98-107) mmol/L Carbon Dioxide 35 H (22-32) mmol/L BUN 15 (9-20) mg/dL Creatinine 0.62 L (0.66-1.25) mg/dL Estimated GFR > 60 (>60) mL/min BUN/Creatinine Ratio 24.2 H (6-22) Glucose 143 H D (80-110) mg/dL Lactate (0.7-2.1) mmol/L Calcium 8.5 (8.4-10.2) mg/dL Total Bilirubin 0.4 (0.2-1.3) mg/dL AST 19 (17-59) IU/L ALT 15 (<50) IU/L Alkaline Phosphatase 165 H (38-126) U/L Troponin I < 0.012 (0.01-0.034) ng/mL Total Protein 6.9 (6.3-8.2) g/dL Albumin 3.4 L (3.5-5.0) g/dL Globulin 3.5 (1.7-4.1) g/dL Albumin/Globulin Ratio 1.0 (1.0-2.8) Procalcitonin (<0.5) ng/mL Urine RBC (0-5/HPF) Urine WBC (0-5/HPF) Urine Bacteria (None) Ketones 1.36 H (<0.27) mmol/L 07/09/22 07/09/22 07/09/22 Range/Units 07:35 07:35 09:37 WBC (4.5-11.0) X10^3/uL RBC (4.5-5.9) X10^6/uL Hgb (13.5-17.5) g/dL Hct (41-53) % MCV (80-100) fL MCH (26-34) PG MCHC (30-36) % RDW (11.6-14.8) % Plt Count (150-400) X10^3/uL Neut % (Auto) (50-75) % Lymph % (Auto) (25-40) % [place] % (Auto) (3-14) % Eos % (Auto) (2-4) % Baso % (Auto) (0-2) % Neut # (Auto) (0700-4788) /uL Lymph # (Auto) (8591-2184) /uL [place] # (Auto) (0-900) /uL Eos # (Auto) (0-450) /uL Baso # (Auto) (0-100) /uL Sodium (137-145) mmol/L Potassium (3.4-5.1) mmol/L Chloride (98-107) mmol/L Carbon Dioxide (22-32) mmol/L BUN (9-20) mg/dL Creatinine (0.66-1.25) mg/dL Estimated GFR (>60) mL/min BUN/Creatinine Ratio (6-22) Glucose (80-110) mg/dL Lactate 0.8 (0.7-2.1) mmol/L Calcium (8.4-10.2) mg/dL Total Bilirubin (0.2-1.3) mg/dL AST (17-59) IU/L ALT (<50) IU/L Alkaline Phosphatase (38-126) U/L Troponin I (0.01-0.034) ng/mL Total Protein (6.3-8.2) g/dL Albumin (3.5-5.0) g/dL Globulin (1.7-4.1) g/dL Albumin/Globulin Ratio (1.0-2.8) Procalcitonin 0.07 (<0.5) ng/mL Urine RBC 10-30/hpf H (0-5/HPF) Urine WBC 10-30/hpf H (0-5/HPF) Urine Bacteria Many (>30) H (None) Ketones (<0.27) mmol/L Urine Dip Bedside Urine Glucose Negative Bedside Urine Bilirubin - Negative Bedside Urine Ketone +/- 5 Urine Specific [place] 1.010 Bedside Urine Occult Blood +++ Bedside Urine pH 8.5 Bedside Urine Protein - Negative Bedside Urine Urobilinogen +/- 1mg Bedside Urine Nitrite - Negative Bedside Urine Leukocytes ++ 125 Esterase MDM Narrative Medical decision making narrative: This is a 67-year-old male who presents with complaint of nausea and vomiting it has been going on for several weeks, he was seen here 2 days ago at that time had relatively normal workup was doing somewhat improved was discharged with plan to use Zofran as needed and started on cephalexin for possible UTI. Patient's workup does show a rising white count although sort of up and down compared to prior visits, electrolytes renal function show bump BUN, normal renal function, glucose today is only 143 with an anion gap of 8, patient does have ketones at 1.3 urine today is still suspicious for infection, patient's pr ior cultures were reviewed his culture from the 5th has not resulted but he had resistant in the past Levaquin. Patient states he is actually been stooling regularly he no longer has constipation, he does have some wall thickening in the lower esophagus, possibly some rectal wall thickening as well as changes to the bladder and right renal pelvis that could be seen in the setting of UTI. Patient is recommended to follow-up for scope he also has some risk factors for gastroparesis and received Protonix, Ativan was able to tolerate orals here. He received a dose of IV Rocephin and antibiotic is changed from cephalexin to cefpodoxime with a prescription for Ativan included see if this is more effective for his nausea to see if this improves him as I suspect he is a UTI/early pyelonephritis. Discharge Plan Departure Patient Disposition: Home Clinical Impression: Acute UTI, Hiatal hernia, Vomiting Instructions: DI for Urinary Tract Infection (UTI) Activity Restrictions/Additional Instructions: Your workup today does reflect infection likely in the bladder, I would recommend changing your antibiotic and extending the length of your antibiotic choice. I would also add an antinausea medications such as Ativan orally to see if this is helpful, you can take this was Zofran as well. Prescriptions printed. I would also recommend having an EGD to evaluate for esophagitis there is some thickening in the esophagus and with your history of diabetes you are high-risk for issues such as gastroparesis. Referral is included below for gastroenterology. Please return for fevers, new or worsening abdominal back or flank pain, persistent vomiting that does not respond to medications, black or bloody stools, or other new or concerning changes. Prescriptions: New cefpodoxime 200 mg tablet 200 mg PO BID Qty: 20 0RF Rx Instructions: must administer with a meal/food lorazepam [Ativan] 1 mg tablet 1 mg PO TID PRN (Reason: nausea and vomiting) Qty: 10 0RF No Action atorvastatin 80 MG tablet 80 mg PO BEDTIME Qty: 0 clopidogrel 75 MG tablet 75 mg PO DAILY Qty: 0 levothyroxine 50 MCG tablet 50 mcg PO QPM Qty: 0 acetaminophen 325 MG tablet 650 mg PO Q4HP PRN (Reason: Fever Or Pain) Qty: 0 omeprazole 20 MG capsule,delayed release(DR/EC) 40 mg PO DAILY Qty: 0 finasteride 5 mg tablet 5 mg PO DAILY tamsulosin 0.4 mg capsule 0.8 mg PO BEDTIME potassium chloride [Klor-Con M20] 20 mEq tablet,ER particles/crystals 20 meq PO BID sertraline 50 mg tablet 50 mg PO DAILY Xtampza ER 18 mg cap,sprinkl,ER12hr(DONT CRUSH) 18 mg PO BID gabapentin 600 mg tablet 600 mg PO BID magnesium oxide 400 mg magnesium Tablet 400 mg PO DAILY alum-mag hydroxide-simeth 200-200-20 mg/5 mL Suspension 10 ml PO DAILY PRN (Reason: Heartburn) Rx Instructions: 10-20mls lubiprostone [Amitiza] 24 mcg capsule 24 mcg PO BID aspirin 81 mg tablet,delayed release (DR/EC) 81 mg PO DAILY naloxone 0.4 mg/mL solution 0.4 mg IM Q15-20M PRN (Reason: Opioid Overdose) Qty: 0 0RF bisacodyl 10 MG suppository 10 mg IA DAILY PRN (Reason: Constipation) Qty: 0 0RF polyethylene glycol 3350 17 gram/dose powder 17 g PO DAILY PRN (Reason: Constipation) Qty: 0 0RF oxycodone 5 mg tablet 20 mg PO Q4H PRN (Reason: pain) 7 Days Qty: 40 0RF Rx Instructions: hold if too sedated mirtazapine 15 mg Tablet 30 mg PO BEDTIME fluticasone propionate 50 mcg/actuation [place],Suspension 1 spray INTRANASAL BID cholecalciferol (vitamin D3) 1,000 unit Capsule 2,000 unit PO DAILY hydroxyzine pamoate 25 mg Capsule 25 mg PO Q6H PRN (Reason: pain/spasms) insulin glargine 100 unit/mL (3 mL) Insulin Pen 19 unit SUBCUT BEDTIME ondansetron 4 mg Tablet,Disintegrating 4 mg PO Q4H PRN (Reason: Nausea) Patient Comments: 1 - 2 prn nausea Glucagon Emergency Kit (human) 1 mg Recon Soln 1 mg IM PRN MDD ` PRN (Reason: blood glucose <60) duloxetine 60 mg capsule,delayed release(DR/EC) 60 mg PO BEDTIME nystatin 100,000 unit/gram Cream 1 applic TOPICAL BID PRN (Reason: yeast) cephalexin 500 mg capsule 500 mg PO BID 5 Days Qty: 10 0RF insulin aspart U-100 [Novolog FlexPen U-100 Insulin] 100 unit/mL insulin pen See Rx Instructions .ROUTE .COMPLEX Rx Instructions: Per [facility] med list, insulin instructions is per Ray is to direct his own dosing of insulin based on what he is about to consume w/ meals Referrals: Eli Montanez ARNP [Primary Care Provider] - Stand Alone Forms: Patient Portal/API
--- NOTE | 2022-07-09 07:37 | DI.CT.S_ITS ---
PROCEDURE: CT ABDOMEN PELVIS W CON INDICATIONS: vomiting, hyperglycemia TECHNIQUE: After the administration of intravenous contrast, axial sections acquired from the lung bases to the pubic symphysis. Coronal and sagittal reformats were performed. For radiation dose reduction, the following was used: automated exposure control, adjustment of mA and/or kV according to patient size. COMPARISON: [facility], CT, CT ABDOMEN PELVIS W CON, 07/07/2022, 20:07. FINDINGS: Lung bases: No pleural effusion ABDOMEN: Liver: Unremarkable. Gallbladder: Unremarkable. Biliary ducts: Unremarkable. Pancreas: Unremarkable. Spleen: Unremarkable. Adrenal Glands: Unremarkable. Kidneys and Ureters: No hydronephrosis. Few nonobstructing stones present at the right kidney as before, some of which are within the renal pelvis. Right urothelial thickening and enhancement present at the renal pelvis. Stomach and Bowel: Possible wall thickening of the imaged lower esophagus. Probable small hiatal hernia. No definite evidence of mechanical small bowel obstruction. Possible rectal wall thickening, minimal perirectal stranding/fluid. Peritoneum: No substantial intraperitoneal fluid. No free air. Abdominal Nodes: No retroperitoneal or mesenteric adenopathy by size criteria. Vessels: Atherosclerosis without abdominal aortic aneurysm. PELVIS: Pelvic Organs: Unremarkable. Bladder: Wall of the urinary bladder appears thickened. Layering hyperdense material present within the bladder. Probable small bladder stone. Pelvic Nodes: No enlarged lymph nodes. Bones: Multilevel degenerative change of the visualized spine. Similar appearance of the L1 vertebral body fracture. Remote posttraumatic deformity of the right femur. IMPRESSION: 1. No definite evidence of mechanical small bowel obstruction. 2. Possible rectal wall thickening which could indicate a non-specific proctitis. 3. Probable small hiatal hernia. Possible wall thickening of the imaged lower esophagus, nonspecific, correlation for etiologies such as reflux esophagitis may be helpful. 4. Nonspecific wall thickening of the urinary bladder. Correlation for a cystitis may be helpful. Hyperdense material within the bladder lumen could represent debris or excreted contrast. 5. Nonobstructing nephrolithiasis. Urothelial thickening enhancement at the right renal pelvis could be reactive but can also be seen in the setting of urinary tract infection. Dictated by: Nolan Kilgore M.D. on 07/09/2022 at 8:33 Approved by: Nolan Kilgore M.D. on 07/09/2022 at 8:42
[2022-07-09 07:48] LABS: Add Manual Diff / Slide Review NO; Basophils Absolute Auto 100 /uL (0-100); Basophils Percent Auto 0.7 % (0-2); Eosinophils Absolute Auto 400 /uL (0-450); Eosinophils Percent Auto 2.3 % (2-4); Hematocrit 33.5 % (41-53); Hemoglobin 10.8 g/dL (13.5-17.5); Lymphocytes Absolute Auto 1300 /uL (1100-4500); Lymphocytes Percent Auto 7.3 % (25-40); Mean Corpuscular HGB Conc 32.3 % (30-36); Mean Corpuscular Hemoglobin 26.7 PG (26-34); Mean Corpuscular Volume 82.7 fL (80-100); Monocytes Absolute Auto 900 /uL (0-900); Monocytes Percent Auto 4.9 % (3-14); Neutrophils Absolute Auto 14800 /uL (1500-7000); Neutrophils Percent Auto 84.8 % (50-75); Platelet Count 613 X10^3/uL (150-400); Red Blood Cell Count 4.05 X10^6/uL (4.5-5.9); Red Cell Distribution Width 14.5 % (11.6-14.8); White Blood Cell Count 17.5 X10^3/uL (4.5-11.0)
[2022-07-09 08:00] LABS: Alanine Aminotransferase 15 IU/L (<50); Albumin 3.4 g/dL (3.5-5.0); Alkaline Phosphatase 165 U/L (38-126); Aspartate Aminotransferase 19 IU/L (17-59); BUN Creatinine Ratio 24.2 (6-22); Bilirubin Total 0.4 mg/dL (0.2-1.3); Blood Urea Nitrogen 15 mg/dL (9-20); Calcium 8.5 mg/dL (8.4-10.2); Carbon Dioxide 35 mmol/L (22-32); Chloride 92 mmol/L (98-107); Estimated Glomerular Filt Rate > 60 mL/min (>60); Globulin 3.5 g/dL (1.7-4.1); Glucose 143 mg/dL (80-110); HEMOLYSIS < 15 (0-50); Potassium 3.5 mmol/L (3.4-5.1); Sodium 135 mmol/L (137-145); Total Protein 6.9 g/dL (6.3-8.2)
[2022-07-09 08:01] LABS: Lactate (Lactic Acid) 0.8 mmol/L (0.7-2.1)
[2022-07-09 08:02] LABS: Ketones (Beta-Hydroxybutyrate) 1.36 mmol/L (<0.27)
[2022-07-09 08:13] LABS: Troponin I < 0.012 ng/mL (0.01-0.034)
[2022-07-09] MEDS: SODIUM CHLORIDE 0.9% 1,000 ML 1000 ML IV (08:18)
[2022-07-09] MEDS: LORazepam 2 MG/ML INJ 0.5 MG IV (08:19)
[2022-07-09] MEDS: PANTOPRAZOLE 40 MG VIAL IV (08:19)
[2022-07-09 08:43] LABS: Procalcitonin 0.07 ng/mL (<0.5)
[2022-07-09] MEDS: cefTRIAXone 1,000 MG in SODIUM CHLORIDE 0.9% 100 ML 200 MG IV (09:51)
--- NOTE | 2022-07-09 10:09 | PC.NURSE ---
Pt given cranbery juice and tolerated well.
[2022-07-09 10:33] LABS: Bacteria Urine Many (>30); RBC Urine 10-30/HPF (0-5/HPF); WBC Urine 10-30/HPF (0-5/HPF)
--- NOTE | 2022-07-09 12:18 | PC.NURSE ---
report called to Bertha Mederos.
== END 2022-07-09 14:34 | disposition home or self-care (01) ==
PROVIDERS: Emergency Provider Emergency Medicine; Family Provider Nurse Practitioner Family; PCP Nurse Practitioner Family
DX: N39.0 Urinary tract infection, site not specified (principal); K44.9 Diaphragmatic hernia without obstruction or gangrene; R11.2 Nausea with vomiting, unspecified; R10.9 Unspecified abdominal pain; R79.89 Other specified abnormal findings of blood chemistry
CPT/HCPCS: 36415; 51701; 74177; 80053; 81003; 81015; 82009; 82805; 83605; 84145; 84484; 85025; 87040; 87077; 87086; 87186; 96361; 96365; 96375; 99284; C9113; J0696; J2060; Q9967

== ENCOUNTER → 2022-07-21 18:10 | Outpatient (ROUT) | payer MEDICARE, MEDICAID, SELFPAY ==
[2021-10-31 11:08] VITALS: BMI 24.0
[2022-07-21 18:15] LABS: Add Manual Diff / Slide Review NO; Basophils Absolute Auto 100 /uL (0-100); Basophils Percent Auto 0.9 % (0-2); Eosinophils Absolute Auto 200 /uL (0-450); Eosinophils Percent Auto 2.9 % (2-4); Hematocrit 29.4 % (41-53); Hemoglobin 9.7 g/dL (13.5-17.5); Lymphocytes Absolute Auto 1300 /uL (1100-4500); Mean Corpuscular HGB Conc 33.2 % (30-36); Mean Corpuscular Hemoglobin 27.6 PG (26-34); Monocytes Absolute Auto 900 /uL (0-900); Monocytes Percent Auto 11.3 % (3-14); Neutrophils Absolute Auto 5500 /uL (1500-7000); Neutrophils Percent Auto 68.9 % (50-75); Platelet Count 451 X10^3/uL (150-400); Red Blood Cell Count 3.54 X10^6/uL (4.5-5.9); Red Cell Distribution Width 15.8 % (11.6-14.8)
[2022-07-21 19:02] LABS: Thyroid Stimulating Hormone 1.78 uIU/mL (0.47-4.68)
== END ==
PROVIDERS: Family Provider Nurse Practitioner Family; PCP Nurse Practitioner Family; Visit Provider Nurse Practitioner Gerontology
DX: D64.9 Anemia, unspecified (principal); E03.9 Hypothyroidism, unspecified
CPT/HCPCS: 84443; 85025

== ENCOUNTER → 2022-09-08 07:48 | Outpatient (ROUT) | payer MEDICARE, MEDICAID, SELFPAY ==
[2021-10-31 11:08] VITALS: BMI 24.0
[2022-09-08 08:04] LABS: BUN Creatinine Ratio 24.6 (6-22); Blood Urea Nitrogen 15 mg/dL (9-20); Calcium 8.3 mg/dL (8.4-10.2); Carbon Dioxide 33 mmol/L (22-32); Chloride 99 mmol/L (98-107); Estimated Glomerular Filt Rate > 60 mL/min (>60); HEMOLYSIS < 15 (0-50); Potassium 3.4 mmol/L (3.4-5.1); Sodium 137 mmol/L (137-145)
[2022-09-08 10:27] LABS: Glucose 42 mg/dL (80-110)
== END ==
PROVIDERS: Family Provider Nurse Practitioner Family; PCP Nurse Practitioner Family; Visit Provider Nurse Practitioner Gerontology
DX: N18.9 Chronic kidney disease, unspecified (principal)
CPT/HCPCS: 36415; 80048

== ENCOUNTER → 2022-09-29 07:35 | Outpatient (ROUT) | payer MEDICARE, MEDICAID, SELFPAY ==
[2021-10-31 11:08] VITALS: BMI 24.0
[2022-09-29 09:07] LABS: HEMOLYSIS 20 (0-50)
[2022-09-29 17:22] LABS: Bilirubin Urine UA NEGATIVE (NEGATIVE); Glucose Urine UA NEGATIVE (Negative); Ketones Urine UA TRACE (NEGATIVE); Leukocyte Esterase Urine UA 2+ (NEGATIVE); Nitrite Urine UA POSITIVE (Negative); Occult Blood Urine UA 3+ (Negative); Protein Urine UA 2+ (Negative); Specific Gravity Urine UA 1.015 (1.000-1.035)
[2022-09-29 17:25] LABS: Appearance Urine UA CLOUDY; Color Urine UA RED
[2022-09-29 17:29] LABS: RBC Urine >100/HPF (0-5/HPF); Squamous Epithelial Cell Urine 1-5 /HPF (0-5/HPF); WBC Urine 10-30/HPF (0-5/HPF)
[2022-09-29 17:30] LABS: Amorphous Sediment Urine 1+; Bacteria Urine Occasional (0-1); Culture Indicated Urine Specimen Cultured
== END ==
PROVIDERS: Internal Medicine; Family Provider Nurse Practitioner Family; PCP Nurse Practitioner Family; Visit Provider Nurse Practitioner Gerontology
DX: E87.6 Hypokalemia (principal); R31.9 Hematuria, unspecified
CPT/HCPCS: 36415; 81001; 84132; 87077; 87086; 87186

== ENCOUNTER 2022-11-28 13:19 | Emergency (ER) | payer MEDICARE, MEDICAID, SELFPAY ==
[2021-10-31 11:08] VITALS: BMI 24.0
[2022-11-28] VITALS (29 sets, daily range): BP systolic 90–216; BP diastolic 51–95; PULSE 82–97; RESP 13–33; TEMP 36.6–37.6; O2SAT 96–100
[2022-11-28] MEDS: LIDOCAINE 2% (GLYDO) 6 ML GEL TOP (13:45)
[2022-11-28 13:54] LABS: Add Manual Diff / Slide Review NO; Basophils Absolute Auto 100 /uL (0-100); Basophils Percent Auto 0.7 % (0-2); Eosinophils Absolute Auto 300 /uL (0-450); Eosinophils Percent Auto 2.2 % (2-4); Hematocrit 34.7 % (41-53); Lymphocytes Absolute Auto 900 /uL (1100-4500); Lymphocytes Percent Auto 6.4 % (25-40); Mean Corpuscular HGB Conc 31.8 % (30-36); Mean Corpuscular Hemoglobin 23.6 PG (26-34); Mean Corpuscular Volume 74.1 fL (80-100); Monocytes Absolute Auto 800 /uL (0-900); Monocytes Percent Auto 5.8 % (3-14); Neutrophils Absolute Auto 11600 /uL (1500-7000); Neutrophils Percent Auto 84.9 % (50-75); Platelet Count 494 X10^3/uL (150-400); Red Blood Cell Count 4.68 X10^6/uL (4.5-5.9); Red Cell Distribution Width 15.8 % (11.6-14.8); White Blood Cell Count 13.7 X10^3/uL (4.5-11.0)
[2022-11-28 14:00] LABS: Alanine Aminotransferase 18 IU/L (<50); Albumin 3.8 g/dL (3.5-5.0); Albumin Globulin Ratio 1.1 (1.0-2.8); Alkaline Phosphatase 169 U/L (38-126); Aspartate Aminotransferase 27 IU/L (17-59); BUN Creatinine Ratio 24.6 (6-22); Bilirubin Total 0.4 mg/dL (0.2-1.3); Blood Urea Nitrogen 16 mg/dL (9-20); Calcium 8.7 mg/dL (8.4-10.2); Carbon Dioxide 31 mmol/L (22-32); Chloride 96 mmol/L (98-107); Estimated Glomerular Filt Rate > 60 mL/min (>60); Globulin 3.5 g/dL (1.7-4.1); Glucose 208 mg/dL (80-110); HEMOLYSIS < 15 (0-50); Lipase 26 U/L (23-300); Potassium 3.3 mmol/L (3.4-5.1); Sodium 134 mmol/L (137-145); Total Protein 7.3 g/dL (6.3-8.2)
[2022-11-28] MEDS: ONDANSETRON 4 MG/2 ML INJ IV (14:18)
--- NOTE | 2022-11-28 15:06 | DI.CT.S_ITS ---
PROCEDURE: CT ABDOMEN PELVIS WO/W CON INDICATIONS: flank pain, gross hematuria TECHNIQUE: After the administration of oral contrast, 5 mm thick sections acquired from the diaphragms to the iliac crests. After the administration of intravenous contrast, 5 mm thick sections acquired from the diaphragms to the symphysis. 5 mm thick coronal and sagittal reformats were acquired. For radiation dose reduction, the following was used: automated exposure control, adjustment of mA and/or kV according to patient size. COMPARISON: None. FINDINGS: Lower thorax: Lung bases are clear. Dense coronary artery vascular calcification noted. Heart size normal. No hiatal hernia. Liver: Normal in size and attenuation. No contour deformity present. Biliary system: Small partially calcified calculi noted layering dependently in distended gallbladder. No pericholecystic inflammatory change Pancreas: Unremarkable without mass or inflammation evident. Spleen: Normal in size and density. Adrenals: Normal morphology and density. Reproductive system: Unremarkable as visualized. Urinary system: Large 1.2 x 0.8 cm calculus noted in the proximal right ureter resulting in moderate right hydronephrosis. Additional nonobstructing calculi in the right renal collecting system measure 1.1 and 1.0 cm. Additional smaller calculi noted bilaterally. No left-sided hydronephrosis. Delayed enhancement of the right kidney present as well Guzman catheter in the bladder Gastrointestinal system: Moderate fecal debris throughout the colon without evidence of obstruction Appendix: No findings to suggest acute appendicitis. Peritoneal spaces: No mesenteric or retroperitoneal adenopathy. No free air. No free fluid. Vasculature: Aortic atherosclerotic vascular calcification noted without evidence of aneurysm. Abdominal wall: Abdominal wall intact without evidence of ventral or inguinal hernias. Musculoskeletal: Old healed proximal right femoral fracture and evidence of prior instrumentation noted. IMPRESSION: 1. Right-sided obstructive uropathy and hydronephrosis results from 1.2 cm calculus in the proximal right ureter. A additional nonobstructing bilateral renal calculi. 2. Dense aortic atherosclerotic vascular calcification without evidence of aneurysm Approved by: Saravanan Doe M.D. on 11/28/2022 at 15:34
--- NOTE | 2022-11-28 15:15 | PC.NURSE ---
pt to CT scan
--- NOTE | 2022-11-28 15:30 | ED_ITS ---
HPI - Male Genitourinary General Chief complaint: Urogenital-Male Stated complaint: UTI Time Seen by Provider: 11/28/22 13:25 Source: patient and EMS Mode of arrival: EMS History of Present Illness HPI Narrative: 67-year-old male with history of unknown arrhythmia, on Plavix, peripheral vascular disease, prior spinal cord injury, diabetes presents with a chief complaint of right-sided flank pain and gross hematuria over the course of the day. He states he is nauseated but denies any vomiting. Denies fever or chills. He is not dizzy nor weak or lightheaded. He has been seen relatively recently for urinary tract infection. Related Data Home Medications Medication Instructions Recorded Confirmed acetaminophen 325 mg tablet 650 mg PO Q4HP PRN Fever Or Pain 06/29/17 11/06/21 ##0 atorvastatin 80 mg tablet 80 mg PO BEDTIME ##0 06/29/17 08/01/21 clopidogrel 75 mg tablet 75 mg PO DAILY ##0 06/29/17 08/01/21 levothyroxine 50 mcg tablet 50 mcg PO QPM ##0 06/29/17 08/01/21 omeprazole 20 mg capsule,delayed 40 mg PO DAILY ##0 06/29/17 08/01/21 release insulin aspart U-100 100 unit/mL See Rx Instructions .Route .COMPLEX 11/25/17 08/01/21 (3 mL) subcutaneous pen (Novolog FlexPen U-100 Insulin aspart) cholecalciferol (vitamin D3) 25 2,000 unit PO DAILY 08/13/18 08/01/21 mcg (1,000 unit) capsule fluticasone propionate 50 1 spray intranasal BID 08/13/18 08/01/21 mcg/actuation nasal spray,suspension hydroxyzine pamoate 25 mg capsule 25 mg PO Q6H PRN pain/spasms 08/13/18 08/01/21 insulin glargine 100 unit/mL (3 19 unit SUBCUT BEDTIME 08/13/18 08/01/21 mL) subcutaneous pen mirtazapine 15 mg tablet 30 mg PO BEDTIME 08/13/18 08/01/21 ondansetron 4 mg disintegrating 4 mg PO Q4H PRN Nausea 08/13/18 08/01/21 tablet duloxetine 60 mg capsule,delayed 60 mg PO BEDTIME 03/02/19 08/01/21 release glucagon (human recombinant) 1 mg 1 mg IM PRN PRN blood glucose <60 03/02/19 08/01/21 solution for injection (Glucagon Emergency Kit) nystatin 100,000 unit/gram topical 1 applic topical BID PRN yeast 03/02/19 08/01/21 cream aluminum-mag hydroxide-simethicone 10 ml PO DAILY PRN Heartburn 07/04/21 11/06/21 200 mg-200 mg-20 mg/5 mL oral susp aspirin 81 mg tablet,delayed 81 mg PO DAILY 07/04/21 11/06/21 release finasteride 5 mg tablet 5 mg PO DAILY 07/04/21 08/01/21 gabapentin 600 mg tablet 600 mg PO BID 07/04/21 08/01/21 lubiprostone 24 mcg capsule 24 mcg PO BID 07/04/21 08/01/21 (Amitiza) magnesium oxide 400 mg PO DAILY 07/04/21 08/01/21 oxycodone myristate 18 mg capsule 18 mg PO BID 07/04/21 08/01/21 sprinkle extended release 12hr(DON'T CRUSH) (Xtampza ER) potassium chloride 20 mEq 20 meq PO BID 07/04/21 08/01/21 tablet,extended release(part/cryst) (Klor-Con M) sertraline 50 mg tablet 50 mg PO DAILY 07/04/21 08/01/21 tamsulosin 0.4 mg capsule 0.8 mg PO BEDTIME 07/04/21 08/01/21 Previous Rx's Medication Instructions Recorded bisacodyl 10 mg rectal suppository 10 mg RI DAILY PRN Constipation #0 07/07/21 ea naloxone 0.4 mg/mL injection 0.4 mg IM Q15-20M PRN Opioid 07/07/21 solution Overdose #0 mL oxycodone 5 mg tablet 20 mg PO Q4H PRN pain 7 days #40 07/07/21 tabs polyethylene glycol 3350 17 17 g PO DAILY PRN Constipation #0 07/07/21 gram/dose oral powder grams cefpodoxime 200 mg tablet 200 mg PO BID #20 tabs 07/09/22 lorazepam 1 mg tablet (Ativan) 1 mg PO TID PRN nausea and 07/09/22 vomiting #10 tabs cephalexin 500 mg capsule 500 mg PO Q6H 7 days #28 caps 11/28/22 ketorolac 10 mg tablet 10 mg PO Q6H PRN pain #14 tabs 11/28/22 tamsulosin 0.4 mg capsule (Flomax) 0.4 mg PO DAILY #30 caps 11/28/22 Allergies Allergy/AdvReac Type Severity Reaction Status Date / Time amitriptyline Allergy Verified 07/09/22 07:43 pollen extracts Allergy Verified 07/09/22 07:43 codeine [CODEINE] AdvReac Unknown nausea Verified 07/09/22 07:43 Review of Systems Review of Systems Narrative: GENERAL: Denies chills, fatigue, malaise, fever, sweats. HEENT: Denies sinus pain, ear pain, sore throat, difficulty swallowing, dizziness. RESPIRATORY: Denies dyspnea, cough, wheezing, hemoptysis, sputum. CARDIOVASCULAR: Denies chest pain, palpitations, orthopnea, edema, GASTROINTESTINAL: See HPI : See HPI MUSCULOSKELETAL: denies weakness, joint pain, or bony pain SKIN: Denies rash, skin lesions, or other NEUROLOGIC: Denies weakness, headache, numbness, change in speech, confusion, seizures, incoordination. PSYCHIATRIC: No concerning psychosocial issues. 12 point review of systems is negative except for those stated above Patient History Medical History (Updated 11/28/22 @ 19:36 by Miguel Kahn DO) C3 spinal cord injury C4 spinal cord injury CVA (cerebral vascular accident) Diabetes Gastroesophageal reflux disease Hyperlipidemia Hypertension Surgical History History of carotid endarterectomy History of coronary artery stent placement No pertinent past surgical history Family History Mother Cancer Father Lung disease Hyperlipidemia Brother Lupus Social History household members: other Smoking Status: Current every day smoker alcohol intake: former substance use type: does not use additional social history: He currently resides in He currently resides in [facility]. Smoking Status: Current every day smoker tobacco type: cigarettes alcohol intake frequency: holidays/special occasions only Substance Use Type: does not use Exam Narrative Exam Narrative: GENERAL: [67] year old patient appears stated age. Well-developed patient, in mild distress. HEAD: Atraumatic. Normocephalic. EYES: Pupils equal round and reactive. Extraocular motions intact. No scleral icterus. No injection or drainage. ENT: Nose without bleeding, purulent drainage. Throat without erythema, tonsillar hypertrophy or exudate. Airway patent. NECK: Trachea midline. Non tender CARDIOVASCULAR: Regular rate and rhythm without murmurs, gallops, or rubs. RESPIRATORY: Clear to auscultation. Breath sounds equal bilaterally. No wheezes, rales, or rhonchi. GASTROINTESTINAL: Abdomen soft, non-tender, nondistended. EXTREMITIES: No edema or joint tenderness. BACK: Nontender without deformity or crepitance. Right flank pain on palpation, gross hematuria in Guzman NEURO: AOx3. SKIN: No rash or erythema of visible areas Initial Vital Signs Initial Vital Signs: Vital Signs Pulse Rate 82 11/28/22 13:25 Pulse Oximetry 96 11/28/22 13:25 Course Orders Ordered: ED Orders 11/28/22 13:28 Complete Blood Count AUTO DIFF Stat Comprehensive Metabolic Panel Stat Lipase Stat 11/28/22 14:00 Ictotest Urine Stat Urinalysis and Microscopic Stat Urine Culture Stat 11/28/22 15:06 IVP [CT abdomen pelvis wo/w con] Stat 11/28/22 16:03 EKG-12 Lead Stat Ondansetron HCl (Ondansetron 4 Mg Odt) 4 mg PO NOW PRN PRN Reason: Nausea And Vomiting Ondansetron HCl (Ondansetron 4 Mg/2 Ml Inj) 4 mg IV NOW PRN PRN Reason: Nausea And Vomiting Last Admin: 11/28/22 14:18 Dose: 4 mg Documented By: ENEIDA Discontinued Medications Hydromorphone HCl (Hydromorphone 0.5 Mg Inj) 0.5 mg IV NOW ONE Stop: 11/28/22 17:33 Last Admin: 11/28/22 17:44 Dose: 0.5 mg Documented By: ENEIDA Ceftriaxone Sodium 2,000 mg/ (Sodium Chloride) 100 mls @ 200 mls/hr IV NOW ONE Stop: 11/28/22 17:33 Last Admin: 11/28/22 17:42 Dose: 200 mls/hr Documented By: ENEIDA Lidocaine HCl 5 ml/ Sodium (Chloride) 55 mls @ 330 mls/hr IV NOW ONE Stop: 11/28/22 17:43 Last Admin: 11/28/22 18:45 Dose: 330 mls/hr Documented By: ENEIDA Ketorolac Tromethamine (Ketorolac 30 Mg/Ml Vial) 15 mg IV NOW ONE Stop: 11/28/22 17:43 Last Admin: 11/28/22 18:25 Dose: 15 mg Documented By: ENEIDA Lidocaine HCl (Lidocaine 2% (Glydo) 6 Ml Gel) 6 ml TOP NOW ONE Stop: 11/28/22 13:30 Last Admin: 11/28/22 13:45 Dose: 6 ml Documented By: ENEIDA Oxycodone HCl (Oxycodone Ir 5 Mg Tablet) 20 mg PO NOW ONE Stop: 11/28/22 15:54 Last Admin: 11/28/22 15:59 Dose: 20 mg Documented By: ENEIDA Pantoprazole Sodium (Pantoprazole 40 Mg Vial) 40 mg IV NOW ONE Stop: 11/28/22 16:58 Last Admin: 11/28/22 17:16 Dose: 40 mg Documented By: ENEIDA Tamsulosin HCl (Tamsulosin 0.4 Mg Capsule) 0.4 mg PO NOW ONE Stop: 11/28/22 16:58 Last Admin: 11/28/22 17:17 Dose: 0.4 mg Documented By: ENEIDA Reevaluation(s) Reevaluation #1: minimal improvement in pain after Oxy, dilaudid / toradol ordered Reevaluation #2: Patient pain essentially gone, resting comfortably and appropriate for discharge Consultations Consultation #1: call to Dr. Cheema ( Urology). Discussed patient's clinical course with Urology, given lack of septic picture or evidence of renal failure no obvious need for immediate intervention unless pain can not be controlled. He is in agreement with our pain plan including lidocaine drip, Toradol, Dilaudid and antibiotics, states if pain can not be controlled he does agree that patient would meet criteria to pursue transfer but his hospitalist full and can not accept, recommends transfer to closest appropriate facility with urologic c overage Vital Signs Vital signs: Vital Signs - 8 hr 11/28/22 13:30 11/28/22 14:11 11/28/22 13:25 Temperature 98.1 F 97.8 F Pulse Rate 87 82 82 Respiratory Rate 17 16 Blood Pressure 200/95 H 196/95 H Pulse Oximetry 97 99 96 Oxygen Delivery Method Room Air Room Air 11/28/22 13:26 11/28/22 13:26 11/28/22 13:30 Temperature Pulse Rate 84 Respiratory Rate Blood Pressure 200/95 H 196/95 H Pulse Oximetry 97 Oxygen Delivery Method 11/28/22 13:30 11/28/22 14:00 11/28/22 14:30 Temperature Pulse Rate 83 84 82 Respiratory Rate Blood Pressure Pulse Oximetry 96 98 98 Oxygen Delivery Method 11/28/22 15:00 11/28/22 15:38 11/28/22 15:38 Temperature Pulse Rate 90 97 H Respiratory Rate Blood Pressure 205/90 H Pulse Oximetry 98 98 Oxygen Delivery Method 11/28/22 16:00 11/28/22 16:00 11/28/22 16:30 Temperature Pulse Rate 95 H Respiratory Rate Blood Pressure 134/64 186/86 H Pulse Oximetry 98 Oxygen Delivery Method 11/28/22 16:30 11/28/22 17:00 11/28/22 17:01 Temperature Pulse Rate 88 88 Respiratory Rate 28 H Blood Pressure 134/64 Pulse Oximetry 98 99 Oxygen Delivery Method 11/28/22 17:01 11/28/22 17:29 11/28/22 17:30 Temperature 98.7 F Pulse Rate 87 Respiratory Rate 24 Blood Pressure 146/67 H Pulse Oximetry 99 Oxygen Delivery Method 11/28/22 17:30 11/28/22 18:00 11/28/22 18:01 Temperature Pulse Rate 91 H 91 H Respiratory Rate 25 H 28 H Blood Pressure 180/81 H Pulse Oximetry 100 100 Oxygen Delivery Method 11/28/22 18:01 11/28/22 18:30 11/28/22 18:30 Temperature Pulse Rate 91 H 96 H Respiratory Rate 28 H 33 H Blood Pressure 216/92 H Pulse Oximetry 100 100 Oxygen Delivery Method MDM - Male Genitourinary Lab Data 11/28/22 13:28 11/28/22 13:28 Labs: Lab Results 11/28/22 11/28/22 11/28/22 Range/Units 13:28 13:28 14:00 WBC 13.7 H (4.5-11.0) X10^3/uL RBC 4.68 (4.5-5.9) X10^6/uL Hgb 11.0 L (13.5-17.5) g/dL Hct 34.7 L (41-53) % MCV 74.1 L (80-100) fL MCH 23.6 L (26-34) PG MCHC 31.8 (30-36) % RDW 15.8 H (11.6-14.8) % Plt Count 494 H (150-400) X10^3/uL Neut % (Auto) 84.9 H (50-75) % Lymph % (Auto) 6.4 L (25-40) % [place] % (Auto) 5.8 (3-14) % Eos % (Auto) 2.2 (2-4) % Baso % (Auto) 0.7 (0-2) % Neut # (Auto) 81823 H (0832-1701) /uL Lymph # (Auto) 900 L (8766-8833) /uL [place] # (Auto) 800 (0-900) /uL Eos # (Auto) 300 (0-450) /uL Baso # (Auto) 100 (0-100) /uL Sodium 134 L (137-145) mmol/L Potassium 3.3 L (3.4-5.1) mmol/L Chloride 96 L (98-107) mmol/L Carbon Dioxide 31 (22-32) mmol/L BUN 16 (9-20) mg/dL Creatinine 0.65 L (0.66-1.25) mg/dL Estimated GFR > 60 (>60) mL/min BUN/Creatinine Ratio 24.6 H (6-22) Glucose 208 H (80-110) mg/dL Calcium 8.7 (8.4-10.2) mg/dL Total Bilirubin 0.4 (0.2-1.3) mg/dL AST 27 (17-59) IU/L ALT 18 (<50) IU/L Alkaline Phosphatase 169 H (38-126) U/L Total Protein 7.3 (6.3-8.2) g/dL Albumin 3.8 (3.5-5.0) g/dL Globulin 3.5 (1.7-4.1) g/dL Albumin/Globulin Ratio 1.1 (1.0-2.8) Lipase 26 (23-300) U/L Urine Color Red Urine Appearance Cloudy Urine pH 8.0 (4.5-8.0) Ur Specific [place] 1.015 (1.000-1.035) Urine Protein 3+ H (Negative) Urine Glucose (UA) Negative (Negative) g/dL Urine Ketones Negative (NEGATIVE) Urine Occult Blood 3+ H (Negative) Urine Nitrate Negative (Negative) Urine Bilirubin 1+ H (NEGATIVE) Ur Bilirubin Confirm Negative (Negative) Urine Urobilinogen 0.2 (0.2) E.U./dL Ur Leukocyte Esterase 3+ H (NEGATIVE) Urine RBC >100/hpf H (0-5/HPF) Urine WBC 5-10/hpf H (0-5/HPF) Ur Squamous Epith Cells None seen (0-5/HPF) Urine Bacteria Many (>30) H (None) Ur Culture Indicated? Specimen cultured Point of Care Testing Glucose POC 236 MDM Narrative Medical decision making narrative: CC: 67-year-old male with gross hematuria and flank pain Complicating co-morbidities: Frequent UTIs, urinary retention, Plavix Data collected from: Patient Medical records reviewed: Prior notes reviewed in our EMR Differential considered, but not limited to: Kidney stone versus infectious process versus other Exam documented above, pertinent findings include: Flank pain on palpation, gross hematuria in Guzman bag, heart rate regular, lungs clear Lab Test results independently reviewed as above. Pertinent findings: Independently reviewed EKG as above Imaging studies independently reviewed: CT IVP notes an obstructing 1.2 cm stone in the right proximal ureter with associated hydro Consultations: Discussed with on-call Urology at [facility], see details above) Treatments: Fluids, Toradol, Dilaudid, Rocephin, a lidocaine drip, Flomax Re-evaluations: Patient with significant improvement, resting comfortably Discussion: 67-year-old male presents with severe right flank pain and gross hematuria, no signs of sepsis, three-way Guzman catheter placed and quickly irrigated to clear. Imaging demonstrates a large obstructing proximal stone in the right proximal ureter. There is associated hydronephrosis. I had extensive discussion with Urology at [facility] and they state there is no indication for immediate intervention given his pain is well controlled, labs ar e reassuring, no signs of sepsis, urine without obvious signs of infection. He is appropriate for discharge with typical medications, we sure the opinion that antibiotics are appropriate given his slight elevation in white count, presence of some white cells in urine and high-risk given history of diabetes. Disposition: see below, along with detailed discharge instructions that have been reviewed with patient as well as indications for ED re-evaluation and additional outpatient follow up Discharge Plan Departure Patient Disposition: Home Clinical Impression: Calculus of right kidney, Hematuria Instructions: DI for Kidney Stones, DI for Hematuria Activity Restrictions/Additional Instructions: *You have been diagnosed with [large right-sided kidney stone. As we discussed your labs and imaging are reassuring.] *What to do: *Please continue to take your regular medications as directed. [ x] New medication prescriptions sent to your pharmacy: [ John] [ ] New medication written as a paper prescription [ ] No new medications given *Please follow up with your primary care provider in 2-3 days, call for an appointment. Let them know you were seen in the Emergency Department and that we ask that you be seen in follow up. We will electronically transmit a record of today's note if your PCP is in our system * as we discussed I have included contact information for local urology. Please call the office at the number listed below, let them know that you were seen in the emergency department and we would like you seen in follow-up. I will electronically transmitted a copy of today's note on your behalf *If you do not have a primary care provider please contact the [facility] Resource line at [phone]. They will ask some questions about your medical history and help get you set up with a doctor in the community. *Return to Emergency Department if you should have any new, worsening or concerning symptoms, such as [fever greater than 101 F, shaking chills, worsening pain, persistent vomiting or other bothersome symptoms] Prescriptions: New ketorolac 10 mg tablet 10 mg PO Q6H PRN (Reason: pain) Qty: 14 0RF tamsulosin [Flomax] 0.4 mg capsule 0.4 mg PO DAILY Qty: 30 0RF cephalexin 500 mg capsule 500 mg PO Q6H 7 Days Qty: 28 0RF No Action atorvastatin 80 MG tablet 80 mg PO BEDTIME Qty: 0 clopidogrel 75 MG tablet 75 mg PO DAILY Qty: 0 levothyroxine 50 MCG tablet 50 mcg PO QPM Qty: 0 acetaminophen 325 MG tablet 650 mg PO Q4HP PRN (Reason: Fever Or Pain) Qty: 0 omeprazole 20 MG capsule,delayed release(DR/EC) 40 mg PO DAILY Qty: 0 finasteride 5 mg tablet 5 mg PO DAILY tamsulosin 0.4 mg capsule 0.8 mg PO BEDTIME potassium chloride [Klor-Con M20] 20 mEq tablet,ER particles/crystals 20 meq PO BID sertraline 50 mg tablet 50 mg PO DAILY Xtampza ER 18 mg cap,sprinkl,ER12hr(DONT CRUSH) 18 mg PO BID gabapentin 600 mg tablet 600 mg PO BID magnesium oxide 400 mg magnesium Tablet 400 mg PO DAILY alum-mag hydroxide-simeth 200-200-20 mg/5 mL Suspension 10 ml PO DAILY PRN (Reason: Heartburn) Rx Instructions: 10-20mls lubiprostone [Amitiza] 24 mcg capsule 24 mcg PO BID aspirin 81 mg tablet,delayed release (DR/EC) 81 mg PO DAILY naloxone 0.4 mg/mL solution 0.4 mg IM Q15-20M PRN (Reason: Opioid Overdose) Qty: 0 0RF bisacodyl 10 MG suppository 10 mg RI DAILY PRN (Reason: Constipation) Qty: 0 0RF polyethylene glycol 3350 17 gram/dose powder 17 g PO DAILY PRN (Reason: Constipation) Qty: 0 0RF oxycodone 5 mg tablet 20 mg PO Q4H PRN (Reason: pain) 7 Days Qty: 40 0RF Rx Instructions: hold if too sedated cefpodoxime 200 mg tablet 200 mg PO BID Qty: 20 0RF Rx Instructions: must administer with a meal/food lorazepam [Ativan] 1 mg tablet 1 mg PO TID PRN (Reason: nausea and vomiting) Qty: 10 0RF mirtazapine 15 mg Tablet 30 mg PO BEDTIME fluticasone propionate 50 mcg/actuation Blunt,Suspension 1 spray INTRANASAL BID cholecalciferol (vitamin D3) 1,000 unit Capsule 2,000 unit PO DAILY hydroxyzine pamoate 25 mg Capsule 25 mg PO Q6H PRN (Reason: pain/spasms) insulin glargine 100 unit/mL (3 mL) Insulin Pen 19 unit SUBCUT BEDTIME ondansetron 4 mg Tablet,Disintegrating 4 mg PO Q4H PRN (Reason: Nausea) Patient Comments: 1 - 2 prn nausea Glucagon Emergency Kit (human) 1 mg Recon Soln 1 mg IM PRN MDD ` PRN (Reason: blood glucose <60) duloxetine 60 mg capsule,delayed release(DR/EC) 60 mg PO BEDTIME nystatin 100,000 unit/gram Cream 1 applic TOPICAL BID PRN (Reason: yeast) insulin aspart U-100 [Novolog FlexPen U-100 Insulin] 100 unit/mL insulin pen See Rx Instructions .ROUTE .COMPLEX Rx Instructions: Per [facility] med list, insulin instructions is per Ray is to direct his own dos ing of insulin based on what he is about to consume w/ meals Referrals: Modesta Rosenbaum MD [Physician] - Eli Montanez ARNP [Primary Care Provider] - Stand Alone Forms: Patient Portal/API
[2022-11-28] MEDS: OXYCODONE IR 5 MG TABLET 20 MG PO (15:59)
[2022-11-28 17:13] LABS: Appearance Urine UA CLOUDY; Bilirubin Urine UA 1+ (NEGATIVE); Color Urine UA RED; Glucose Urine UA NEGATIVE (Negative); Ketones Urine UA NEGATIVE (NEGATIVE); Leukocyte Esterase Urine UA 3+ (NEGATIVE); Nitrite Urine UA NEGATIVE (Negative); Occult Blood Urine UA 3+ (Negative); Protein Urine UA 3+ (Negative); Specific Gravity Urine UA 1.015 (1.000-1.035); Urobilinogen Urine UA 0.2 E.U./dL (0.2)
[2022-11-28] MEDS: PANTOPRAZOLE 40 MG VIAL IV (17:16)
[2022-11-28 17:17] LABS: Bacteria Urine Many (>30); Culture Indicated Urine Specimen Cultured; Ictotest Urine Negative (Negative); RBC Urine >100/HPF (0-5/HPF); Squamous Epithelial Cell Urine None Seen (0-5/HPF); WBC Urine 5-10/HPF (0-5/HPF)
[2022-11-28] MEDS: TAMSULOSIN 0.4 MG CAPSULE PO (17:17)
[2022-11-28] MEDS: cefTRIAXone 2,000 MG in SODIUM CHLORIDE 0.9% 100 ML 200 MG IV (17:42)
[2022-11-28] MEDS: HYDROMORPHONE 0.5 MG INJ IV (17:44)
[2022-11-28] MEDS: KETOROLAC 30 MG/ML VIAL 15 MG IV (18:25)
[2022-11-28] MEDS: LIDOCAINE 2% (PF) 5 ML in SODIUM CHLORIDE 0.9% 50 ML 330 ML IV (18:45)
[2022-11-28] MEDS: ACETAMINOPHEN 325 MG TABLET 975 MG PO (23:50)
--- NOTE | 2022-11-29 00:05 | PC.NURSE ---
2000: Patient ready for discharge, BLS Ambulance ETA is 2345, patient informed of this and made comfortable while waiting, snacks and water given to patient. Patient denies any other immediate needs. 2200: Patient requesting to have denson catheter removed r/t irritation and stating that staff at the place I live don't know how to take care of it. Dr. Acharya and this RN discussed removing the catheter vs leaving it in place until follow-up with urology. Benefits of leaving catheter in place reviewed with pt and he stated it could stay in. Urine output still appears moderately red in appearance, no clots noted in drainage bag or line. 2330: Patient assisted with changing and ready for DC, vitals assessed, pt has slight temp of 99.7F. Dr. Acharya made aware and order for Tylenol received and administered prior to discharge. Patient states understanding about watching for signs/symptoms of infection/worsening of condition. 0004: Patient discharged, transferred back to [facility] via BLS ambulance. [facility] staff contacted and updated on patient's return, plan of care, and review of medications given to pt while in ED.
== END 2022-11-29 00:04 | disposition home or self-care (01) ==
PROVIDERS: Emergency Provider Emergency Medicine; Family Provider Nurse Practitioner Family; PCP Nurse Practitioner Family
DX: N20.0 Calculus of kidney (principal); R31.0 Gross hematuria; Z79.899 Other long term (current) drug therapy; R11.0 Nausea
CPT/HCPCS: 36415; 74178; 80053; 81001; 82962; 83690; 85025; 87077; 87086; 87186; 93005; 99284; C9113; J0696; J1170; J1885; J2405; Q9967

== ENCOUNTER 2022-12-01 07:31 | Inpatient (IN) | payer MEDICARE, MEDICAID, SELFPAY ==
[2021-10-31 11:08] VITALS: BMI 24.0
[2022-12-01] VITALS (91 sets, daily range): BP systolic 87–144; BP diastolic 49–86; PULSE 69–95; RESP 6–181; TEMP 36.4–37.2; O2SAT 93–100; BMI 21.7
--- NOTE | 2022-12-01 | DI.RAD.S_ITS ---
PROCEDURE: XR KUB INDICATIONS: PRE OP FOR UROLOGIST, STENT TECHNIQUE: One view of the abdomen acquired. COMPARISON: [facility], CT, CT ABDOMEN PELVIS WO/W CON, 11/28/2022, 15:21. [facility], CT, CT CHEST ABD PEL WO CON, 12/01/2022, 7:47. FINDINGS: Surgical changes and devices: None. Bowel: Bowel gas pattern is normal. Soft tissues: There is an elliptical-shaped stone in the proximal right ureter at the level of L2-L3 measuring 2.2 x 1.0 cm. The measurements on the plain film is an exaggeration of the size. The stones in the right calices are not visualized secondary to overlying fecal material. Visualized solid organ contours appear normal in size. Bones: No suspicious bony lesions. IMPRESSION: Continued presence of an obstructing proximal right ureteral stone. Dictated by: Gordon Agudelo M.D. on 12/01/2022 at 12:25 Approved by: Gordon Agudelo M.D. on 12/01/2022 at 12:28
--- NOTE | 2022-12-01 | DI.RAD.S_ITS ---
PROCEDURE: XR ABDOMEN 1V INDICATIONS: RT STENT PLACEMENT TECHNIQUE: 1 intra-operative images acquired by the Urology service. COMPARISON: None. FINDINGS: Labeled right ureterovesicular stent is present. IMPRESSION: Ureterovesicular stent. Dictated by: Jagruti Landeros M.D. on 12/01/2022 at 13:51 Approved by: Jagruti Landeros M.D. on 12/01/2022 at 13:52
--- NOTE | 2022-12-01 07:50 | DI.CT.S_ITS ---
PROCEDURE: CT CHEST ABD PEL WO CON INDICATIONS: sepsis TECHNIQUE: After the administration of oral contrast, 5 mm thick sections acquired from the lung apices to the symphysis pubis. 5 mm thick coronal and sagittal reformats acquired, with additional 7 mm coronal MIP reformats through the lungs. For radiation dose reduction, the following was used: automated exposure control, adjustment of mA and/or kV according to patient size. COMPARISON: [facility], CT, CT ABDOMEN PELVIS WO/W CON, 11/28/2022, 15:21. FINDINGS: Image quality: Diagnostic CHEST: Lungs and pleura: No focal consolidation. Bibasilar atelectasis. There is suggestion of scattered tree-in-bud peripheral opacities involving the dependent portions of the bilateral upper lobes in bilateral lower lobes. Findings appear slightly more prominent on the left. No septal thickening or nodularity. No pleural effusions or pneumothorax. Central and peripheral airways are patent are normal in caliber. Mediastinum: Heart size is normal. Moderate atherosclerotic calcifications of the coronary arteries. No pericardial effusion. No mediastinal adenopathy by CT size criteria. Thoracic aorta and central pulmonary arteries are normal in size. Atherosclerotic calcifications of the aortic arch are present. Esophagus is normal in caliber. No hiatal hernia. Chest wall: No axillary or supraclavicular adenopathy by size criteria. Thyroid gland is unremarkable . Bilateral gynecomastia. ABDOMEN: Solid organs: Liver is normal in size. Gallbladder is distended as before with tiny punctate densities in the dependent portions of the gallbladder likely representing small layering gallstones. No CT evidence to suggest acute cholecystitis. Pancreas is normal in contours. Spleen is normal in size. No adrenal nodules. Unchanged appearance of 1.1 x 0.7 cm proximal right ureteral stone visualized at the right ureteropelvic junction. Slight improvement in degree of moderate right hydronephrosis. There is some retained excreted contrast within the right renal pelvis and renal calices. The remaining segments of the right ureter appear normal in course and caliber. Redemonstration of additional right renal stones measuring up to 1.1 cm in size. No left hydronephrosis. A 0.4 cm hilar left renal stone versus vascular calcification noted. Left ureter is normal in course and caliber. No left ureteral stone. Peritoneum and bowel: Small and large bowel loops are normal in caliber and wall thickness. No free fluid or air. Moderate amount of fecal material scattered throughout the colon. Normal appendix. Nodes and vessels: No retroperitoneal or mesenteric adenopathy by size criteria. Aorta and inferior vena cava are normal in size. Dense atherosclerotic calcifications of the abdominal aorta as before. Miscellaneous: There is a fat-containing umbilical hernia without acute inflammation.. PELVIS: Genitourinary: Urinary bladder decompressed by Guzman catheter. No findings to suggest urinary bladder wall thickening. No perivesicular inflammation. Miscellaneous: No inguinal hernias or adenopathy. Bones: No acute vertebral body compression fractures. Multilevel spondylitic changes throughout the imaged spine. No suspicious osseous lesions. Stable appearance of remote compression fracture of L1. Stable appearance of healed fracture deformities of the proximal right femur. IMPRESSION: 1. Persistent but improved appearance of moderate right hydronephrosis secondary to an obstructing 1.1 cm proximal right ureteral stone visualized at the right ureteropelvic junction. Additional right renal stones measuring up to 1.1 cm in size. No perinephric stranding. 2. Scattered peripheral tree-in-bud opacities of the bilateral hemithoraces suggestive of atypical/mycobacterial infection. No focal consolidation seen. 3. Extensive atherosclerotic vascular calcifications. Other chronic findings as above. Dictated by: Luis Felipe Key M.D. on 12/01/2022 at 9:01 Approved by: Luis Felipe Key M.D. on 12/01/2022 at 9:13
--- NOTE | 2022-12-01 07:52 | ED.WEAKNESS ---
HPI - Weakness General Chief complaint: Urogenital-Male Stated complaint: kidney stone Time Seen by Provider: 12/01/22 07:33 Source: patient and EMS Mode of arrival: EMS History of Present Illness HPI Narrative: Patient brought in by ambulance for weakness altered mental status from assisted living facility. Blood sugar 49. D10 was given by EMS. It has improved. Patient seen here 3 days ago for right ureteral stone. Placed on antibiotics. Patient had fever 102 prior to arrival. Given Tylenol by the facility. Patient is awake alert and following instructions. Answering appropriately. History of leg amputation. History of Guzman catheter. History of spinal cord injury, history of stroke history of diabetes Related Data Home Medications Medication Instructions Recorded Confirmed acetaminophen 325 mg tablet 1,000 mg PO TID PRN pain/fever ##0 06/29/17 12/01/22 atorvastatin 80 mg tablet 80 mg PO BEDTIME ##0 06/29/17 12/01/22 clopidogrel 75 mg tablet 75 mg PO DAILY ##0 06/29/17 12/01/22 levothyroxine 50 mcg tablet 50 mcg PO QPM ##0 06/29/17 12/01/22 omeprazole 20 mg capsule,delayed 40 mg PO DAILY ##0 06/29/17 08/01/21 release insulin aspart U-100 100 unit/mL See Rx Instructions .Route .COMPLEX 11/25/17 08/01/21 (3 mL) subcutaneous pen (Novolog FlexPen U-100 Insulin aspart) cholecalciferol (vitamin D3) 25 2,000 unit PO DAILY 08/13/18 12/01/22 mcg (1,000 unit) capsule fluticasone propionate 50 1 spray intranasal BID 08/13/18 12/01/22 mcg/actuation nasal spray,suspension hydroxyzine pamoate 25 mg capsule 25 mg PO Q6H PRN pain/spasms 08/13/18 08/01/21 mirtazapine 15 mg tablet 30 mg PO BEDTIME 08/13/18 08/01/21 ondansetron 4 mg disintegrating 4 mg PO Q4H PRN Nausea 08/13/18 08/01/21 tablet duloxetine 60 mg capsule,delayed 60 mg PO BEDTIME 03/02/19 12/01/22 release glucagon (human recombinant) 1 mg 1 mg IM PRN PRN blood glucose <60 03/02/19 12/01/22 solution for injection (Glucagon Emergency Kit) nystatin 100,000 unit/gram topical 1 applic topical BID PRN yeast 03/02/19 08/01/21 cream aluminum-mag hydroxide-simethicone 10 ml PO DAILY PRN Heartburn 07/04/21 12/01/22 200 mg-200 mg-20 mg/5 mL oral susp aspirin 81 mg tablet,delayed 81 mg PO DAILY 07/04/21 12/01/22 release gabapentin 600 mg tablet 600 mg PO BID 07/04/21 08/01/21 lubiprostone 24 mcg capsule 24 mcg PO BID 07/04/21 12/01/22 (Amitiza) magnesium oxide 400 mg PO DAILY 07/04/21 08/01/21 oxycodone myristate 18 mg capsule 18 mg PO BID 07/04/21 08/01/21 sprinkle extended release 12hr(DON'T CRUSH) (Xtampza ER) potassium chloride 20 mEq 20 meq PO BID 07/04/21 08/01/21 tablet,extended release(part/cryst) (Klor-Con M) sertraline 50 mg tablet 50 mg PO DAILY 07/04/21 08/01/21 tamsulosin 0.4 mg capsule 0.8 mg PO BEDTIME 07/04/21 08/01/21 bisacodyl 5 mg tablet 5 - 10 mg PO DAILY PRN Constipation 12/01/22 12/01/22 docusate sodium 100 mg tablet 200 mg PO TID 12/01/22 12/01/22 furosemide 80 mg tablet 80 mg PO QAM 12/01/22 12/01/22 insulin glargine 100 unit/mL (3 17 unit SUBCUT BEDTIME 12/01/22 12/01/22 mL) subcutaneous pen (Lantus Solostar U-100 Insulin) lorazepam 1 mg tablet 1 mg PO BEDTIME PRN Insomnia 12/01/22 12/01/22 propylene glycol 1 %-glycerin 0.3 1 drp ophthalmic (eye) Q1H PRN Dry 12/01/22 12/01/22 % eye drops Eyes Previous Rx's Medication Instructions Recorded bisacodyl 10 mg rectal suppository 10 mg NE DAILY PRN Constipation #0 07/07/21 ea naloxone 0.4 mg/mL injection 0.4 mg IM Q15-20M PRN Opioid 07/07/21 solution Overdose #0 mL oxycodone 5 mg tablet 20 mg PO Q4H PRN pain 7 days #40 07/07/21 tabs polyethylene glycol 3350 17 17 g PO DAILY PRN Constipation #0 07/07/21 gram/dose oral powder grams lorazepam 1 mg tablet (Ativan) 1 mg PO TID PRN nausea and 07/09/22 vomiting #10 tabs cephalexin 500 mg capsule 500 mg PO Q6H 7 days #28 caps 11/28/22 ketorolac 10 mg tablet 10 mg PO Q6H PRN pain #14 tabs 11/28/22 tamsulosin 0.4 mg capsule (Flomax) 0.4 mg PO DAILY #30 caps 11/28/22 tamsulosin 0.4 mg capsule (Flomax) 0.4 mg PO DAILY #30 caps 11/29/22 cefpodoxime 200 mg tablet 200 mg PO BID 10 days #20 tabs 11/30/22 Allergies Allergy/AdvReac Type Severity Reaction Status Date / Time amitriptyline Allergy Verified 12/01/22 07:38 pollen extracts Allergy Verified 12/01/22 07:38 codeine [CODEINE] AdvReac Unknown nausea Verified 12/01/22 07:38 Review of Systems Review of Systems Narrative: GENERAL: Positive chills, fatigue, malaise, fever, sweats. HEENT: negative sinus pain, ear pain, sore throat RESPIRATORY: negative dyspnea, cough CARDIOVASCULAR: negative chest pain, palpitations GASTROINTESTINAL: negative nausea, vomiting, abdominal pain : Negative hematuria, patient has indwelling Guzman catheter MUSCULOSKELETAL: negative muscle or bony pain SKIN: negative rash, skin lesions NEUROLOGIC: negative weakness, numbness ROS Unobtainable: All systems reviewed & are unremarkable except as noted in HPI and below Patient History Medical History (Updated 12/01/22 @ 10:55 by Modesta Roesnbaum MD) C3 spinal cord injury C4 spinal cord injury CVA (cerebral vascular accident) Diabetes Gastroesophageal reflux disease Hyperlipidemia Hypertension Surgical History History of carotid endarterectomy History of coronary artery stent placement No pertinent past surgical history Family History Mother Cancer Father Lung disease Hyperlipidemia Brother Lupus Social History household members: other Smoking Status: Current every day smoker alcohol intake: former substance use type: does not use additional social history: He currently resides in He currently resides in [facility]. Smoking Status: Current every day smoker tobacco type: cigarettes alcohol intake frequency: holidays/special occasions only Substance Use Type: does not use Exam Narrative Exam Narrative: GENERAL: in no distress, not toxic not dyspneic HEAD: Normocephalic. EYES: Pupils equal round ENT: Mucous membranes moist. NECK: Trachea midline. CARDIOVASCULAR: Regular rate and rhythm without murmurs RESPIRATORY: Clear to auscultation. Breath sounds equal bilaterally. No wheezes, rales, or rhonchi. GASTROINTESTINAL: Abdomen soft, non-tender no peritoneal signs bowel sounds are present. EXTREMITIES: No gross deformities. BACK: No flank tenderness. NEURO: Patient is awake alert oriented to self, clear speech. Following instructions appropriately. SKIN: Warm and dry PSYCH: Not anxious, is cooperative Initial Vital Signs Initial Vital Signs: Vital Signs Pulse Rate 95 H 12/01/22 07:36 Pulse Oximetry 97 12/01/22 07:36 Course Orders Ordered: ED Orders 12/01/22 07:33 EKG-12 Lead Stat 12/01/22 07:40 Complete Blood Count AUTO DIFF Stat Comprehensive Metabolic Panel Stat Lactate (Lactic Acid) Stat Procalcitonin Stat Troponin & CK Cardiac Panel Stat 12/01/22 07:46 Respiratory Panel (Film Array) Stat 12/01/22 07:50 CT chest abd pel wo con Stat 12/01/22 08:03 Blood Culture Stat 12/01/22 08:30 Ictotest Urine Stat Urinalysis and Microscopic Stat Urine Culture Stat Albuterol (Albuterol 2.5 Mg/3 Ml Neb (Adult)) 2.5 mg INH NOW PRN PRN Reason: Coughing, Wheezing, Dyspnea Enoxaparin Sodium (Enoxaparin 40 Mg/0.4 Ml Syringe) 40 mg SUBCUT DAILY EUGENE Fentanyl (Fentanyl 100 Mcg/2 Ml Inj) 0 mcg IV Q5MIN PRN PRN Reason: Pain, Severe (7-10) Fentanyl (Fentanyl 100 Mcg/2 Ml Inj) 0 mcg IV Q5M PRN PRN Reason: Pain, Moderate (4-6) Hydromorphone HCl (Hydromorphone 0.5 Mg Inj) 0.5 mg IV Q2H PRN PRN Reason: Pain, Severe (7-10) Lactated Ringer's (Lactated Ringers) 1,000 mls @ 100 mls/hr IV CONT EUGENE Naloxone HCl (Naloxone 0.4 Mg/Ml Vial) 0.2 mg IV Q2MIN PRN PRN Reason: Opiate Reversal Ondansetron HCl (Ondansetron 4 Mg/2 Ml Inj) 4 mg IV Q8HR PRN PRN Reason: Nausea And Vomiting Discontinued Medications Piperacillin Sod/Tazobactam (Sod 4.5 gm/ Sodium Chloride) 100 mls @ 200 mls/hr IV NOW ONE Stop: 12/01/22 07:34 Last Infusion: 12/01/22 10:16 Dose: 0 mls/hr Documented By: Admin: 12/01/22 08:30 Dose: 200 mls/hr Documented By: NIKO Lactated Ringer's (Lactated Ringers) 1,000 mls @ 1,000 mls/hr IV BOLUS ONE Stop: 12/01/22 08:35 Last Admin: 12/01/22 12:28 Dose: 999 mls/hr Documented By: Infusion: 12/01/22 09:09 Dose: 0 mls/hr Documented By: Admin: 12/01/22 08:00 Dose: 1,000 mls/hr Documented By: NIKO Meropenem 1 gm/ Sodium (Chloride) 100 mls @ 200 mls/hr IV NOW ONE Stop: 12/01/22 11:14 Last Infusion: 12/01/22 11:25 Dose: 0 mls/hr Documented By: Admin: 12/01/22 11:20 Dose: 200 mls/hr Documented By: ALPHONSO Vital Signs Vital signs: Vital Signs - 8 hr 12/01/22 07:38 12/01/22 07:36 12/01/22 07:37 Temperature 98.4 F Pulse Rate 95 H 95 H 94 H Respiratory Rate 31 H Blood Pressure 103/55 L Pulse Oximetry 97 97 97 Oxygen Delivery Method Room Air 12/01/22 07:37 12/01/22 07:59 12/01/22 07:59 Temperature Pulse Rate 85 Respiratory Rate 6 L Blood Pressure 103/55 L 91/55 L Pulse Oximetry 95 Oxygen Delivery Method 12/01/22 08:00 12/01/22 08:00 12/01/22 08:12 Temperature Pulse Rate 85 79 Respiratory Rate 12 21 Blood Pressure 90/54 L Pulse Oximetry 96 96 Oxygen Delivery Method 12/01/22 08:12 12/01/22 08:15 12/01/22 08:15 Temperature Pulse Rate 79 Respiratory Rate 20 Blood Pressure 89/54 L 87/49 L Pulse Oximetry 97 Oxygen Delivery Method 12/01/22 08:20 12/01/22 08:20 12/01/22 08:23 Temperature Pulse Rate 78 78 Respiratory Rate 20 23 Blood Pressure 88/52 L Pulse Oximetry 96 96 Oxygen Delivery Method 12/01/22 08:23 12/01/22 08:25 12/01/22 08:25 Temperature Pulse Rate 78 Respiratory Rate 18 Blood Pressure 100/52 L 99/52 L Pulse Oximetry 96 Oxygen Delivery Method 12/01/22 08:30 12/01/22 08:30 12/01/22 08:35 Temperature Pulse Rate 78 Respiratory Rate 14 Blood Pressure 102/56 L 96/55 L Pulse Oximetry 97 Oxygen Delivery Method 12/01/22 08:35 12/01/22 08:40 12/01/22 08:40 Temperature Pulse Rate 78 75 Respiratory Rate 14 17 Blood Pressure 98/57 L Pulse Oximetry 97 97 Oxygen Delivery Method 12/01/22 08:45 12/01/22 08:45 12/01/22 08:50 Temperature Pulse Rate 73 Respiratory Rate 14 Blood Pressure 91/54 L 99/54 L Pulse Oximetry 97 Oxygen Delivery Method 12/01/22 08:50 12/01/22 08:55 12/01/22 08:55 Temperature Pulse Rate 75 73 Respiratory Rate 11 L 15 Blood Pressure 105/56 L Pulse Oximetry 97 97 Oxygen Delivery Method 12/01/22 09:00 12/01/22 09:00 12/01/22 09:05 Temperature Pulse Rate 72 Respiratory Rate 12 Blood Pressure 106/55 L 108/56 L Pulse Oximetry 97 Oxygen Delivery Method 12/01/22 09:05 12/01/22 09:10 12/01/22 09:10 Temperature Pulse Rate 72 72 Respiratory Rate 14 16 Blood Pressure 103/53 L Pulse Oximetry 97 97 Oxygen Delivery Method 12/01/22 09:15 12/01/22 09:15 12/01/22 09:20 Temperature Pulse Rate 71 Respiratory Rate 16 Blood Pressure 104/58 L 100/55 L Pulse Oximetry 98 Oxygen Delivery Method 12/01/22 09:20 12/01/22 09:25 12/01/22 09:25 Temperature Pulse Rate 71 71 Respiratory Rate 17 21 Blood Pressure 99/52 L Pulse Oximetry 98 96 Oxygen Delivery Method 12/01/22 09:30 12/01/22 09:30 12/01/22 09:35 Temperature Pulse Rate 77 Respiratory Rate 20 Blood Pressure 97/54 L 104/58 L Pulse Oximetry 99 Oxygen Delivery Method 12/01/22 09:35 12/01/22 09:40 12/01/22 09:40 Temperature Pulse Rate 77 88 Respiratory Rate 21 17 Blood Pressure 119/58 L Pulse Oximetry 99 93 Oxygen Delivery Method 12/01/22 09:45 12/01/22 09:45 12/01/22 09:50 Temperature Pulse Rate 78 Respiratory Rate 20 Blood Pressure 107/55 L 110/59 L Pulse Oximetry 95 Oxygen Delivery Method 12/01/22 09:50 12/01/22 09:55 12/01/22 09:55 Temperature Pulse Rate 75 76 Respiratory Rate 22 21 Blood Pressure 110/58 L Pulse Oximetry 99 99 Oxygen Delivery Method 12/01/22 10:00 12/01/22 10:02 12/01/22 10:02 Temperature Pulse Rate 85 77 Respiratory Rate 17 16 Blood Pressure 125/56 L Pulse Oximetry 93 98 Oxygen Delivery Method 12/01/22 10:05 12/01/22 10:05 12/01/22 10:10 Temperature Pulse Rate 74 Respiratory Rate 17 Blood Pressure 116/61 111/58 L Pulse Oximetry 98 Oxygen Delivery Method 12/01/22 10:10 12/01/22 10:15 12/01/22 10:29 Temperature 98.3 F Pulse Rate 72 72 Respiratory Rate 16 15 Blood Pressure Pulse Oximetry 98 98 Oxygen Delivery Method 12/01/22 10:20 12/01/22 10:25 12/01/22 10:30 Temperature Pulse Rate 73 71 71 Respiratory Rate 17 17 15 Blood Pressure Pulse Oximetry 99 98 98 Oxygen Delivery Method 12/01/22 10:35 Temperature Pulse Rate 70 Respiratory Rate 14 Blood Pressure Pulse Oximetry 98 Oxygen Delivery Method MDM - Weakness Lab Data 12/01/22 07:40 12/01/22 07:40 Labs: Lab Results 0812/01/22 12/01/22 Range/Units 07:40 07:40 07:40 WBC 10.8 (4.5-11.0) X10^3/uL RBC 3.81 L (4.5-5.9) X10^6/uL Hgb 9.2 L (13.5-17.5) g/dL Hct 27.9 L (41-53) % MCV 73.2 L (80-100) fL MCH 24.1 L (26-34) PG MCHC 32.9 (30-36) % RDW 15.7 H (11.6-14.8) % Plt Count 314 (150-400) X10^3/uL Neut % (Auto) 89.6 H (50-75) % Lymph % (Auto) 1.4 L (25-40) % Shelby % (Auto) 8.4 (3-14) % Eos % (Auto) 0.4 L (2-4) % Baso % (Auto) 0.2 (0-2) % Neut # (Auto) 9600 H (6469-5131) /uL Lymph # (Auto) 200 L (8231-2392) /uL Shelby # (Auto) 900 (0-900) /uL Eos # (Auto) 0 (0-450) /uL Baso # (Auto) 0 (0-100) /uL Sodium 132 L (137-145) mmol/L Potassium 3.0 L (3.4-5.1) mmol/L Chloride 96 L (98-107) mmol/L Carbon Dioxide 31 (22-32) mmol/L BUN 21 H (9-20) mg/dL Creatinine 1.45 H (0.66-1.25) mg/dL Estimated GFR 53 L (>60) mL/min BUN/Creatinine Ratio 14.5 (6-22) Glucose 168 H (80-110) mg/dL Lactate 0.8 (0.7-2.1) mmol/L Calcium 8.1 L (8.4-10.2) mg/dL Total Bilirubin 0.4 (0.2-1.3) mg/dL AST 20 (17-59) IU/L ALT 14 (<50) IU/L Alkaline Phosphatase 122 (38-126) U/L Total Creatine Kinase 37 L (55-170) U/L Troponin I 0.030 (0.01-0.034) ng/mL Total Protein 6.5 (6.3-8.2) g/dL Albumin 3.4 L (3.5-5.0) g/dL Globulin 3.1 (1.7-4.1) g/dL Albumin/Globulin Ratio 1.1 (1.0-2.8) Procalcitonin 2.16 H (<0.5) ng/mL Urine Color Urine Appearance Urine pH (4.5-8.0) Ur Specific Fortine (1.000-1.035) Urine Protein (Negative) Urine Glucose (UA) (Negative) g/dL Urine Ketones (NEGATIVE) Urine Occult Blood (Negative) Urine Nitrate (Negative) Urine Bilirubin (NEGATIVE) Ur Bilirubin Confirm (Negative) Urine Urobilinogen (0.2) E.U./dL Ur Leukocyte Esterase (NEGATIVE) Urine RBC (0-5/HPF) Urine WBC (0-5/HPF) Ur Squamous Epith Cells (0-5/HPF) Urine Bacteria (None) Ur Culture Indicated? Chlamy pneumoniae PCR (Not Detect) Adenovirus (PCR) (Not Detect) B. pertussis DNA (PCR) (Not Detecte) B.parapertussis DNA PCR (Not Detecte) Coronavirus OC43 (PCR) (Not Detect) Coronavirus HKU1 (PCR) (Not Detect) Coronavirus 229E (PCR) (Not Detect) SARS-CoV-2 (PCR) (Not Detecte) Coronavirus NL63 (PCR) (Not Detect) Human Metapneumovir PCR (Not Detect) Influenza Type A (PCR) (Not Detect) Influenza Type B (PCR) (Not Detect) M. pneumoniae (PCR) (Not Detect) Parainfluenza 1 (PCR) (Not Detect) Parainfluenza 2 (PCR) (Not Detect) Parainfluenza 3 (PCR) (Not Detect) Parainfluenza 4 (PCR) (Not Detect) RSV (PCR) (Not Detect) Entero/Rhino (PCR) (Not Detect) 12/01/22 12/01/22 Range/Units 07:46 08:30 WBC (4.5-11.0) X10^3/uL RBC (4.5-5.9) X10^6/uL Hgb (13.5-17.5) g/dL Hct (41-53) % MCV (80-100) fL MCH (26-34) PG MCHC (30-36) % RDW (11.6-14.8) % Plt Count (150-400) X10^3/uL Neut % (Auto) (50-75) % Lymph % (Auto) (25-40) % Shelby % (Auto) (3-14) % Eos % (Auto) (2-4) % Baso % (Auto) (0-2) % Neut # (Auto) (8763-4213) /uL Lymph # (Auto) (3087-3847) /uL Shelby # (Auto) (0-900) /uL Eos # (Auto) (0-450) /uL Baso # (Auto) (0-100) /uL Sodium (137-145) mmol/L Potassium (3.4-5.1) mmol/L Chloride (98-107) mmol/L Carbon Dioxide (22-32) mmol/L BUN (9-20) mg/dL Creatinine (0.66-1.25) mg/dL Estimated GFR (>60) mL/min BUN/Creatinine Ratio (6-22) Glucose (80-110) mg/dL Lactate (0.7-2.1) mmol/L Calcium (8.4-10.2) mg/dL Total Bilirubin (0.2-1.3) mg/dL AST (17-59) IU/L ALT (<50) IU/L Alkaline Phosphatase (38-126) U/L Total Creatine Kinase (55-170) U/L Troponin I (0.01-0.034) ng/mL Total Protein (6.3-8.2) g/dL Albumin (3.5-5.0) g/dL Globulin (1.7-4.1) g/dL Albumin/Globulin Ratio (1.0-2.8) Procalcitonin (<0.5) ng/mL Urine Color Yellow Urine Appearance Cloudy Urine pH 6.0 (4.5-8.0) Ur Specific Fortine 1.010 (1.000-1.035) Urine Protein 1+ H (Negative) Urine Glucose (UA) Negative (Negative) g/dL Urine Ketones Negative (NEGATIVE) Urine Occult Blood 1+ H (Negative) Urine Nitrate Negative (Negative) Urine Bilirubin 1+ H (NEGATIVE) Ur Bilirubin Confirm Negative (Negative) Urine Urobilinogen 1.0 (0.2) E.U./dL Ur Leukocyte Esterase 2+ H (NEGATIVE) Urine RBC None seen (0-5/HPF) Urine WBC 30-100/hpf H (0-5/HPF) Ur Squamous Epith Cells 1-5 /hpf (0-5/HPF) Urine Bacteria Few (2-10) H (None) Ur Culture Indicated? Specimen cultured Chlamy pneumoniae PCR Not detected (Not Detect) Adenovirus (PCR) Not detected (Not Detect) B. pertussis DNA (PCR) Not detected (Not Detecte) B.parapertussis DNA PCR Not detected (Not Detecte) Coronavirus OC43 (PCR) Not detected (Not Detect) Coronavirus HKU1 (PCR) Not detected (Not Detect) Coronavirus 229E (PCR) Not detected (Not Detect) SARS-CoV-2 (PCR) Not detected (Not Detecte) Coronavirus NL63 (PCR) Not detected (Not Detect) Human Metapneumovir PCR Not detected (Not Detect) Influenza Type A (PCR) Not detected (Not Detect) Influenza Type B (PCR) Not detected (Not Detect) M. pneumoniae (PCR) Not detected (Not Detect) Parainfluenza 1 (PCR) Not detected (Not Detect) Parainfluenza 2 (PCR) Not detected (Not Detect) Parainfluenza 3 (PCR) Not detected (Not Detect) Parainfluenza 4 (PCR) Not detected (Not Detect) RSV (PCR) Not detected (Not Detect) Entero/Rhino (PCR) Not detected (Not Detect) Point of Care Testing Glucose POC 140 MDM Narrative Medical decision making narrative: Patient brought in by ambulance for weakness altered mental status from assisted living facility. Blood sugar 49. D10 was given by EMS. It has improved. Patient seen here 3 days ago for right ureteral stone. Placed on antibiotics. Patient had fever 102 prior to arrival. Given Tylenol by the facility. Patient is awake alert and following instructions. Answering appropriately. History of leg amputation. History of Guzman catheter. History of spinal cord injury, history of stroke history of diabetes After history and exam CBC CMP lactated Ringer's Zosyn lactic acid procalcitonin CT chest abdomen pelvis urinalysis [facility] CC: Weakness fever Complicating co-morbidities: Diabetes stroke paralysis kidney stone Data collected from: Patient and EMS Medical records reviewed: November 28, 2022 ER visit here for kidney stone Differential considered: Includes but not limited to sepsis infected kidney stone kidney failure pneumonia Exam documented above, pertinent findings include: Nontender abdomen Lab Test results independently reviewed as above. Pertinent findings: WBC 10.8 sodium 132 potassium 3.0 BUN 21 creatinine 1.45 GFR 53 lactic acid 0.8 procalcitonin 2.16 Independently reviewed EKG normal sinus rhythm rate [address] elevation or depression Imaging studies independently reviewed: CT chest abdomen pelvis persistent but improved right hydronephrosis secondary to 1.1 cm right renal stone proximally. No perinephric stranding Consultations: 10:[address] Rosenbaum, urology, he plans to take patient to OR likely today. Patient to be admitted to hospitalist. 10:38 a.m.. Spoke with hospitalist, Dr. Nogueira, he will admit patient Treatments: IV fluids Zosyn Re-evaluations: 10:27 a.m.. Spoke with patient results. He does understand needs to go to surgery for removal of the stone. He is feeling much better. Discussion: Appropriate for admission. Patient will likely need surgery to remove infected stone. Antibiotics have been started. Blood pressure has improved. Glucose has improved. IV fluids have been started. Patient feeling much better Diagnosis: Kidney stone Discharge Plan Departure Patient Disposition: Admitted as Observation Clinical Impression: Acute UTI, Right ureteral calculus Admit Date/Time: 12/01/22 10:38 Admit Provider: Ehsan Nogueira
[2022-12-01 07:56] LABS: Add Manual Diff / Slide Review NO; Basophils Absolute Auto 0 /uL (0-100); Basophils Percent Auto 0.2 % (0-2); Eosinophils Absolute Auto 0 /uL (0-450); Eosinophils Percent Auto 0.4 % (2-4); Hematocrit 27.9 % (41-53); Hemoglobin 9.2 g/dL (13.5-17.5); Lymphocytes Absolute Auto 200 /uL (1100-4500); Lymphocytes Percent Auto 1.4 % (25-40); Mean Corpuscular HGB Conc 32.9 % (30-36); Mean Corpuscular Hemoglobin 24.1 PG (26-34); Mean Corpuscular Volume 73.2 fL (80-100); Monocytes Absolute Auto 900 /uL (0-900); Monocytes Percent Auto 8.4 % (3-14); Neutrophils Absolute Auto 9600 /uL (1500-7000); Neutrophils Percent Auto 89.6 % (50-75); Platelet Count 314 X10^3/uL (150-400); Red Blood Cell Count 3.81 X10^6/uL (4.5-5.9); Red Cell Distribution Width 15.7 % (11.6-14.8); White Blood Cell Count 10.8 X10^3/uL (4.5-11.0)
--- NOTE | 2022-12-01 07:57 | PC.NURSE ---
pt states he is not having increase in pain since he was here two days ago. he is just really thirsty and tired.
[2022-12-01] MEDS: LACTATED RINGERS 1,000 ML 1000 ML IV (08:00)
[2022-12-01 08:06] LABS: Alanine Aminotransferase 14 IU/L (<50); Albumin 3.4 g/dL (3.5-5.0); Albumin Globulin Ratio 1.1 (1.0-2.8); Alkaline Phosphatase 122 U/L (38-126); Aspartate Aminotransferase 20 IU/L (17-59); BUN Creatinine Ratio 14.5 (6-22); Bilirubin Total 0.4 mg/dL (0.2-1.3); Blood Urea Nitrogen 21 mg/dL (9-20); Calcium 8.1 mg/dL (8.4-10.2); Carbon Dioxide 31 mmol/L (22-32); Chloride 96 mmol/L (98-107); Creatine Kinase 37 U/L (55-170); Estimated Glomerular Filt Rate 53 mL/min (>60); Globulin 3.1 g/dL (1.7-4.1); Glucose 168 mg/dL (80-110); HEMOLYSIS < 15 (0-50); Lactate (Lactic Acid) 0.8 mmol/L (0.7-2.1); Sodium 132 mmol/L (137-145); Total Protein 6.5 g/dL (6.3-8.2)
[2022-12-01 08:23] LABS: Procalcitonin 2.16 ng/mL (<0.5)
[2022-12-01] MEDS: PIPERACILLIN/TAZO 4.5 GM in SODIUM CHLORIDE 0.9% 100 ML IV (08:30)
[2022-12-01 08:49] LABS: Adenovirus Not Detected (Not Detect); B. parapertussis Not Detected (Not Detecte); Bordetella pertussis Not Detected (Not Detecte); Chlamydophila pneumoniae Not Detected (Not Detect); Coronavirus 229E Not Detected (Not Detect); Coronavirus HKU1 Not Detected (Not Detect); Coronavirus NL 63 Not Detected (Not Detect); Coronavirus OC43 Not Detected (Not Detect); Human Metapneumovirus Not Detected (Not Detect); Human Rhinovirus/Enterovirus Not Detected (Not Detect); Influenza A Not Detected (Not Detect); Influenza B Not Detected (Not Detect); Mycoplasma pneumoniae Not Detected (Not Detect); Parainfluenza Virus 1 Not Detected (Not Detect); Parainfluenza Virus 2 Not Detected (Not Detect); Parainfluenza Virus 3 Not Detected (Not Detect); Parainfluenza Virus 4 Not Detected (Not Detect); Respiratory Syncytial Virus Not Detected (Not Detect); SARS- CoV-2 Not Detected (Not Detecte)
[2022-12-01 09:03] LABS: Appearance Urine UA CLOUDY; Bilirubin Urine UA 1+ (NEGATIVE); Color Urine UA YELLOW; Glucose Urine UA NEGATIVE (Negative); Ketones Urine UA NEGATIVE (NEGATIVE); Leukocyte Esterase Urine UA 2+ (NEGATIVE); Nitrite Urine UA NEGATIVE (Negative); Occult Blood Urine UA 1+ (Negative); Protein Urine UA 1+ (Negative)
[2022-12-01 09:48] LABS: Bacteria Urine Few (2-10); Culture Indicated Urine Specimen Cultured; Ictotest Urine Negative (Negative); RBC Urine None Seen (0-5/HPF); Squamous Epithelial Cell Urine 1-5 /HPF (0-5/HPF); WBC Urine 30-100/HPF (0-5/HPF)
--- NOTE | 2022-12-01 10:39 | PC.NURSE ---
Coordinator aware of admission.
--- NOTE | 2022-12-01 10:46 | PM.CN ---
History of Present Illness Consult details Date Patient Seen: 12/01/22 Time Patient Seen: 10:46 Chief complaint: kidney stone Reason for consult: Obstructing right ureteral calculus and sepsis. Requesting provider: Niall Ray Narrative: The patient is a 67-year-old male that presented to [facility] ED from care facility on 11/28/2022, for evaluation of complaint of right flank pain and gross hematuria. The patient is on clopidogrel for cardiac arrhythmia chronically. Evaluation revealed obstructing 1.2 cm x 0.8 cm right proximal ureteral calculus. Urine culture subsequently grown Morganella morganii. The patient received ceftriaxone 1 g on that day and was discharged on cephalexin, which the organism is resistant to. The case was discussed with [facility] urology that was on-call. Recommendation was that the patient be transferred to a care facility with available urologist. The patient was discharged back to his care facility with instruction to contact local urology in 2 to 3 days. The patient now presents again with signs and symptoms concerning for sepsis. He received Zosyn in the ED. He urology nutritionist public health contacted and now patient being seen for urgent assessment. The patient has multiple medical and physical comorbidities including insulin dependent diabetes mellitus and spinal cord injury with chronic indwelling Guzman catheter. He does have history of UTI. Meds Home Medications and Allergies Home Medications Medication Instructions Recorded Confirmed Type acetaminophen 325 mg tablet 650 mg PO Q4HP PRN Fever Or Pain 06/29/17 11/06/21 History ##0 atorvastatin 80 mg tablet 80 mg PO BEDTIME ##0 06/29/17 08/01/21 History clopidogrel 75 mg tablet 75 mg PO DAILY ##0 06/29/17 08/01/21 History levothyroxine 50 mcg tablet 50 mcg PO QPM ##0 06/29/17 08/01/21 History omeprazole 20 mg capsule,delayed 40 mg PO DAILY ##0 06/29/17 08/01/21 History release insulin aspart U-100 100 unit/mL See Rx Instructions .Route .COMPLEX 11/25/17 08/01/21 History (3 mL) subcutaneous pen (Novolog FlexPen U-100 Insulin aspart) cholecalciferol (vitamin D3) 25 2,000 unit PO DAILY 08/13/18 08/01/21 History mcg (1,000 unit) capsule fluticasone propionate 50 1 spray intranasal BID 08/13/18 08/01/21 History mcg/actuation nasal spray,suspension hydroxyzine pamoate 25 mg capsule 25 mg PO Q6H PRN pain/spasms 08/13/18 08/01/21 History insulin glargine 100 unit/mL (3 19 unit SUBCUT BEDTIME 08/13/18 08/01/21 History mL) subcutaneous pen mirtazapine 15 mg tablet 30 mg PO BEDTIME 08/13/18 08/01/21 History ondansetron 4 mg disintegrating 4 mg PO Q4H PRN Nausea 08/13/18 08/01/21 History tablet duloxetine 60 mg capsule,delayed 60 mg PO BEDTIME 03/02/19 08/01/21 History release glucagon (human recombinant) 1 mg 1 mg IM PRN PRN blood glucose <60 03/02/19 08/01/21 History solution for injection (Glucagon Emergency Kit) nystatin 100,000 unit/gram topical 1 applic topical BID PRN yeast 03/02/19 08/01/21 History cream aluminum-mag hydroxide-simethicone 10 ml PO DAILY PRN Heartburn 07/04/21 11/06/21 History 200 mg-200 mg-20 mg/5 mL oral susp aspirin 81 mg tablet,delayed 81 mg PO DAILY 07/04/21 11/06/21 History release finasteride 5 mg tablet 5 mg PO DAILY 07/04/21 08/01/21 History gabapentin 600 mg tablet 600 mg PO BID 07/04/21 08/01/21 History lubiprostone 24 mcg capsule 24 mcg PO BID 07/04/21 08/01/21 History (Amitiza) magnesium oxide 400 mg PO DAILY 07/04/21 08/01/21 History oxycodone myristate 18 mg capsule 18 mg PO BID 07/04/21 08/01/21 History sprinkle extended release 12hr(DON'T CRUSH) (Xtampza ER) potassium chloride 20 mEq 20 meq PO BID 07/04/21 08/01/21 History tablet,extended release(part/cryst) (Klor-Con M) sertraline 50 mg tablet 50 mg PO DAILY 07/04/21 08/01/21 History tamsulosin 0.4 mg capsule 0.8 mg PO BEDTIME 07/04/21 08/01/21 History bisacodyl 10 mg rectal suppository 10 mg OH DAILY PRN Constipation #0 07/07/21 08/01/21 Rx ea naloxone 0.4 mg/mL injection 0.4 mg IM Q15-20M PRN Opioid 07/07/21 08/01/21 Rx solution Overdose #0 mL oxycodone 5 mg tablet 20 mg PO Q4H PRN pain 7 days #40 07/07/21 11/06/21 Rx tabs polyethylene glycol 3350 17 17 g PO DAILY PRN Constipation #0 07/07/21 08/01/21 Rx gram/dose oral powder grams cefpodoxime 200 mg tablet 200 mg PO BID #20 tabs 07/09/22 Rx lorazepam 1 mg tablet (Ativan) 1 mg PO TID PRN nausea and 07/09/22 Rx vomiting #10 tabs cephalexin 500 mg capsule 500 mg PO Q6H 7 days #28 caps 11/28/22 Rx ketorolac 10 mg tablet 10 mg PO Q6H PRN pain #14 tabs 11/28/22 Rx tamsulosin 0.4 mg capsule (Flomax) 0.4 mg PO DAILY #30 caps 11/28/22 Rx cephalexin 500 mg capsule 500 mg PO QID 7 days #28 caps 11/29/22 Rx ketorolac 10 mg tablet 10 mg PO QID PRN pain 5 days #14 11/29/22 Rx tabs tamsulosin 0.4 mg capsule (Flomax) 0.4 mg PO DAILY #30 caps 11/29/22 Rx cefpodoxime 200 mg tablet 200 mg PO BID 10 days #20 tabs 11/30/22 Rx Allergies Allergy/AdvReac Type Severity Reaction Status Date / Time amitriptyline Allergy Verified 12/01/22 07:38 pollen extracts Allergy Verified 12/01/22 07:38 codeine [CODEINE] AdvReac Unknown nausea Verified 12/01/22 07:38 Review of Systems Review of Systems ROS: Yes All systems reviewed with the patient and are negative except as otherwise documented Exam Vital Signs (past 8 hours): - 12/01/22 07:38 12/01/22 07:36 12/01/22 07:37 Temperature 98.4 F Pulse Rate 95 H 95 H 94 H Respiratory Rate 31 H Blood Pressure 103/55 L Pulse Oximetry 97 97 97 Oxygen Delivery Method Room Air 12/01/22 07:37 12/01/22 07:59 12/01/22 07:59 Temperature Pulse Rate 85 Respiratory Rate 6 L Blood Pressure 103/55 L 91/55 L Pulse Oximetry 95 Oxygen Delivery Method 12/01/22 08:00 12/01/22 08:00 12/01/22 08:12 Temperature Pulse Rate 85 79 Respiratory Rate 12 21 Blood Pressure 90/54 L Pulse Oximetry 96 96 Oxygen Delivery Method 12/01/22 08:12 12/01/22 08:15 12/01/22 08:15 Temperature Pulse Rate 79 Respiratory Rate 20 Blood Pressure 89/54 L 87/49 L Pulse Oximetry 97 Oxygen Delivery Method 12/01/22 08:20 12/01/22 08:20 12/01/22 08:23 Temperature Pulse Rate 78 78 Respiratory Rate 20 23 Blood Pressure 88/52 L Pulse Oximetry 96 96 Oxygen Delivery Method 12/01/22 08:23 12/01/22 08:25 12/01/22 08:25 Temperature Pulse Rate 78 Respiratory Rate 18 Blood Pressure 100/52 L 99/52 L Pulse Oximetry 96 Oxygen Delivery Method 12/01/22 08:30 12/01/22 08:30 12/01/22 08:35 Temperature Pulse Rate 78 Respiratory Rate 14 Blood Pressure 102/56 L 96/55 L Pulse Oximetry 97 Oxygen Delivery Method 12/01/22 08:35 12/01/22 08:40 12/01/22 08:40 Temperature Pulse Rate 78 75 Respiratory Rate 14 17 Blood Pressure 98/57 L Pulse Oximetry 97 97 Oxygen Delivery Method 12/01/22 08:45 12/01/22 08:45 12/01/22 08:50 Temperature Pulse Rate 73 Respiratory Rate 14 Blood Pressure 91/54 L 99/54 L Pulse Oximetry 97 Oxygen Delivery Method 12/01/22 08:50 12/01/22 08:55 12/01/22 08:55 Temperature Pulse Rate 75 73 Respiratory Rate 11 L 15 Blood Pressure 105/56 L Pulse Oximetry 97 97 Oxygen Delivery Method 12/01/22 09:00 12/01/22 09:00 12/01/22 09:05 Temperature Pulse Rate 72 Respiratory Rate 12 Blood Pressure 106/55 L 108/56 L Pulse Oximetry 97 Oxygen Delivery Method 12/01/22 09:05 12/01/22 09:10 12/01/22 09:10 Temperature Pulse Rate 72 72 Respiratory Rate 14 16 Blood Pressure 103/53 L Pulse Oximetry 97 97 Oxygen Delivery Method 12/01/22 09:15 12/01/22 09:15 12/01/22 09:20 Temperature Pulse Rate 71 Respiratory Rate 16 Blood Pressure 104/58 L 100/55 L Pulse Oximetry 98 Oxygen Delivery Method 12/01/22 09:20 12/01/22 09:25 12/01/22 09:25 Temperature Pulse Rate 71 71 Respiratory Rate 17 21 Blood Pressure 99/52 L Pulse Oximetry 98 96 Oxygen Delivery Method 12/01/22 09:30 12/01/22 09:30 12/01/22 09:35 Temperature Pulse Rate 77 Respiratory Rate 20 Blood Pressure 97/54 L 104/58 L Pulse Oximetry 99 Oxygen Delivery Method 12/01/22 09:35 12/01/22 09:40 12/01/22 09:40 Temperature Pulse Rate 77 88 Respiratory Rate 21 17 Blood Pressure 119/58 L Pulse Oximetry 99 93 Oxygen Delivery Method 12/01/22 09:45 12/01/22 09:45 12/01/22 09:50 Temperature Pulse Rate 78 Respiratory Rate 20 Blood Pressure 107/55 L 110/59 L Pulse Oximetry 95 Oxygen Delivery Method 12/01/22 09:50 12/01/22 09:55 12/01/22 09:55 Temperature Pulse Rate 75 76 Respiratory Rate 22 21 Blood Pressure 110/58 L Pulse Oximetry 99 99 Oxygen Delivery Method 12/01/22 10:00 12/01/22 10:02 12/01/22 10:02 Temperature Pulse Rate 85 77 Respiratory Rate 17 16 Blood Pressure 125/56 L Pulse Oximetry 93 98 Oxygen Delivery Method 12/01/22 10:05 12/01/22 10:05 12/01/22 10:10 Temperature Pulse Rate 74 Respiratory Rate 17 Blood Pressure 116/61 111/58 L Pulse Oximetry 98 Oxygen Delivery Method 12/01/22 10:10 12/01/22 10:15 12/01/22 10:29 Temperature 98.3 F Pulse Rate 72 72 Respiratory Rate 16 15 Blood Pressure Pulse Oximetry 98 98 Oxygen Delivery Method Oxygen Delivery Method Room Air Narrative Exam Narrative: Chronically ill-appearing adult male in hospital at. Chest-equal and unlabored expansion bilaterally. Heart-normal sinus rhythm. Abdomen-protuberant soft bowel tones are hypo active. Genitalia-indwelling Guzman catheter. Objective Labs 12/01/22 07:40 12/01/22 07:40 Labs: Laboratory Results - last 24 hr 12/01/22 12/01/22 12/01/22 07:40 07:40 07:40 WBC 10.8 RBC 3.81 L Hgb 9.2 L Hct 27.9 L MCV 73.2 L MCH 24.1 L MCHC 32.9 RDW 15.7 H Plt Count 314 Neut % (Auto) 89.6 H Lymph % (Auto) 1.4 L [place] % (Auto) 8.4 Eos % (Auto) 0.4 L Baso % (Auto) 0.2 Neut # (Auto) 9600 H Lymph # (Auto) 200 L [place] # (Auto) 900 Eos # (Auto) 0 Baso # (Auto) 0 Sodium 132 L Potassium 3.0 L Chloride 96 L Carbon Dioxide 31 BUN 21 H Creatinine 1.45 H Estimated GFR 53 L BUN/Creatinine Ratio 14.5 Glucose 168 H Lactate 0.8 Calcium 8.1 L Total Bilirubin 0.4 AST 20 ALT 14 Alkaline Phosphatase 122 Total Creatine Kinase 37 L Troponin I 0.030 Total Protein 6.5 Albumin 3.4 L Globulin 3.1 Albumin/Globulin Ratio 1.1 Procalcitonin 2.16 H Urine Color Urine Appearance Urine pH Ur Specific [place] Urine Protein Urine Glucose (UA) Urine Ketones Urine Occult Blood Urine Nitrate Urine Bilirubin Ur Bilirubin Confirm Urine Urobilinogen Ur Leukocyte Esterase Urine RBC Urine WBC Ur Squamous Epith Cells Urine Bacteria Ur Culture Indicated? Chlamy pneumoniae PCR Adenovirus (PCR) B. pertussis DNA (PCR) B.parapertussis DNA PCR Coronavirus OC43 (PCR) Coronavirus HKU1 (PCR) Coronavirus 229E (PCR) SARS-CoV-2 (PCR) Coronavirus NL63 (PCR) Human Metapneumovir PCR Influenza Type A (PCR) Influenza Type B (PCR) M. pneumoniae (PCR) Parainfluenza 1 (PCR) Parainfluenza 2 (PCR) Parainfluenza 3 (PCR) Parainfluenza 4 (PCR) RSV (PCR) Entero/Rhino (PCR) 12/01/22 12/01/22 07:46 08:30 WBC RBC Hgb Hct MCV MCH MCHC RDW Plt Count Neut % (Auto) Lymph % (Auto) [place] % (Auto) Eos % (Auto) Baso % (Auto) Neut # (Auto) Lymph # (Auto) [place] # (Auto) Eos # (Auto) Baso # (Auto) Sodium Potassium Chloride Carbon Dioxide BUN Creatinine Estimated GFR BUN/Creatinine Ratio Glucose Lactate Calcium Total Bilirubin AST ALT Alkaline Phosphatase Total Creatine Kinase Troponin I Total Protein Albumin Globulin Albumin/Globulin Ratio Procalcitonin Urine Color Yellow Urine Appearance Cloudy Urine pH 6.0 Ur Specific [place] 1.010 Urine Protein 1+ H Urine Glucose (UA) Negative Urine Ketones Negative Urine Occult Blood 1+ H Urine Nitrate Negative Urine Bilirubin 1+ H Ur Bilirubin Confirm Negative Urine Urobilinogen 1.0 Ur Leukocyte Esterase 2+ H Urine RBC None seen Urine WBC 30-100/hpf H Ur Squamous Epith Cells 1-5 /hpf Urine Bacteria Few (2-10) H Ur Culture Indicated? Specimen cultured Chlamy pneumoniae PCR Not detected Adenovirus (PCR) Not detected B. pertussis DNA (PCR) Not detected B.parapertussis DNA PCR Not detected Coronavirus OC43 (PCR) Not detected Coronavirus HKU1 (PCR) Not detected Coronavirus 229E (PCR) Not detected SARS-CoV-2 (PCR) Not detected Coronavirus NL63 (PCR) Not detected Human Metapneumovir PCR Not detected Influenza Type A (PCR) Not detected Influenza Type B (PCR) Not detected M. pneumoniae (PCR) Not detected Parainfluenza 1 (PCR) Not detected Parainfluenza 2 (PCR) Not detected Parainfluenza 3 (PCR) Not detected Parainfluenza 4 (PCR) Not detected RSV (PCR) Not detected Entero/Rhino (PCR) Not detected PFS Medical History (Updated 12/01/22 @ 10:55 by Modesta Rosenbaum MD) C3 spinal cord injury C4 spinal cord injury CVA (cerebral vascular accident) Diabetes Gastroesophageal reflux disease Hyperlipidemia Hypertension Surgical History History of carotid endarterectomy History of coronary artery stent placement No pertinent past surgical history Family History Mother Cancer Father Lung disease Hyperlipidemia Brother Lupus Social History household members: other Tobacco & Substance Use Smoking Status: Current every day smoker alcohol intake: former substance use type: does not use Additional Social History additional social history: He currently resides in He currently resides in [facility]. Assessment & Plan Assessment and plan (1) Calculus of right kidney: Status: Acute (2) Acute UTI: Status: Acute (3) Hematuria: Qualifiers: Hematuria type: unspecified type Qualified Code(s): R31.9 - Hematuria, unspecified Status: Acute (4) Sepsis: Qualifiers: Sepsis type: sepsis due to unspecified organism Qualified Code(s): A41.9 - Sepsis, unspecified organism Status: Acute Plan 1. Discussion and informed consent for her urgent CYSTOSCOPY/RIGHT URETERAL STONE MANIPULATION WITHOUT REMOVAL/PLACEMENT RIGHT URETERAL STENT.
--- NOTE | 2022-12-01 10:57 | PM.PREOP ---
Pre-operative Note COVID-19 Criteria for continued procedure: Expected advancement of disease process, Possibility delay results in more complex future surgery or treatment, Deterioration of the patient's condition or overall health, Delay expected to result in less-positive ultimate med/surg outcome and Non-surgical alternatives not available or appropriate per current SOC Interval Note History & Physical reviewed/Exam performed by Physician: Yes Changes to H&P: No
[2022-12-01] MEDS: MEROPENEM 1 GM in SODIUM CHLORIDE 0.9% 100 ML IV ×2 (11:20→22:29)
--- NOTE | 2022-12-01 11:27 | SUR.OPER ---
Lithotomy on padded OR bed, head on pillow, arms secured on padded arm boards at <90 degrees abduction. Legs secured in padded yellow fins stirrups.
[2022-12-01] MEDS: LACTATED RINGERS 1,000 ML 999 ML IV (12:28)
--- NOTE | 2022-12-01 13:15 | PM.OP.1 ---
Operative Date/Time/Diagnoses Date of procedure: 12/01/22 Time of procedure: 11:50 Pre-op diagnosis: 1. Obstructing 1.2 x 0.8 cm right proximal ureteral calculus. 2. Urosepsis. 3. Nephrolithiasis. Post-op diagnosis: same Procedure & Clinicians Procedure: 1. Cystoscopy/right ureteral stone manipulation without removal 2. Cystoscopy/placement right ureteral stent (8 [place] by 22-32 cm multi-length). 3. Placement Guzman catheter. Same procedure as scheduled: Yes Indications: 1. Obstructing 1.2 by 0.8 cm right proximal ureteral calculus. 2. Urosepsis. 3. Chronic indwelling Guzman catheter for management of incontinence. Surgeon: Modesta Rosenbaum Click Yes if Unassisted: Yes Anesthesia Type: General Operative Notes Findings: 1. Urethra-normal caliber without annular stricture or lesion. 2. External sphincter coapted with normal overlying urothelium. 3. Prostate-3.5-4 cm length with moderate lateral lobe hyperplasia. A few small inflammatory mucosal polyps were noted especially along the left midportion of the prostatic urethra. 4. Bladder-1+ trabeculation. Normal ureteral orifices bilaterally. No stone, tumor, or foreign body noted. No unusual hyperemia noted. After proximal passage of the ureteral hybrid guidewire and [place] catheter and manipulation of the impacted stone there was brisk obstructive efflux noted. Closure Type: not applicable Specimen(s): none sent Applied: other (Eight [place] by 22-32 cm multi-length ureteral stent) Estimated Blood Loss (mL): 0 Blood products transfused: none Procedure in detail: Patient was positioned in supine and was then administered general anesthesia. He was then repositioned in modified semi lithotomy (right above knee amputation), and the lower abdomen, genitalia, and groin were then prepped and draped in sterile fashion. The 22 [place] panendoscope was then introduced in the lower urinary tract and passed proximally with the findings as described above. A 0.35 hybrid guidewire was then selected and advanced into the right collecting system under direct and fluoroscopic guidance with the assistance of a 5 [place] pollock catheter. Once the stone was encounter with a [place] tip of the hybrid wire it was met with obstruction. The [place] catheter was then advanced over the hybrid guidewire under direct visualization and this then was able to disimpact the calculus and allow appropriate proximal advancement in positioning of the tip of the hybrid guidewire. The 5 [place] pollock catheter was then backloaded off the 0.35 hybrid guidewire. An 8 [place] multilink stent was then requested. This was then advanced over the hybrid guidewire under direct and fluoroscopic guidance satisfactorily. NO RETRIEVAL LINE WAS LEFT ATTACHED. The bladder was left partially filled and the panendoscope was removed. An 18 [place] Guzman catheter was then prepared and advanced in the lower urinary tract. The balloon was inflated to 10 cc in the bladder contents were drained before attaching it to gravity drainage. The patient was then repositioned in supine, was awakened, and then transferred to [facility] for transport to PACU. Complications: none Post-operative Condition: stable Disposition: PACU Plan for aftercare: Admit to acute care hospitalist service.
[2022-12-01] MEDS: LACTATED RINGERS 1,000 ML 100 ML IV ×2 (13:30→20:11)
[2022-12-01] MEDS: OXYCODONE IR 5 MG TABLET 20 MG PO ×2 (13:41→21:42)
[2022-12-01 13:57] LABS: MRSA (Nasal) PCR DETECTED (Not Detect)
[2022-12-01] MEDS: DOCUSATE 100 MG CAPSULE 200 MG PO ×2 (14:21→21:18)
[2022-12-01] MEDS: cephALEXin 250 MG CAPSULE 500 MG PO (14:21)
[2022-12-01] MEDS: KETOROLAC 10 MG TABLET PO (14:30)
--- NOTE | 2022-12-01 14:33 | P.HP_ITS ---
History of Present Illness History of Present Illness Date Patient Seen: 12/01/22 Time Patient Seen: 14:34 Chief complaint: kidney stone Narrative: 67 M with PMH of cervical spinal injury, prior CVA, GERD, HTN, HLD, chronic denson, insulin dependent diabetes who presents as a return to the ER with weakness and acute confusion per his assisted living facility ([facility]). Patient was in the ER on 11/28, found to have an obstructed R ureteral stone, and was discharged home with reassuring labs, on oral antibiotics and extensive consultation with urology whom was orthotic practitioner at the time. Today he has a worsening creatining, with reported weakness and confusion. There is no leukocytosis, but procalcitonin is 2.16. Patient had urology consultation with Dr. Freeman whom performed stent placement earlier today. UA is again positive, recent cultures with morganella from prior ER visit with resistance to penicillins and unasyn, cephalosporins as well. He was given zosyn with ER provider, I recommended meropenem based on resistance profile from ER visit. He had been given fluids with LR. [facility] Medical History C3 spinal cord injury C4 spinal cord injury CVA (cerebral vascular accident) Diabetes Gastroesophageal reflux disease Hyperlipidemia Hypertension Surgical History History of carotid endarterectomy History of coronary artery stent placement No pertinent past surgical history Family History Mother Cancer Father Lung disease Hyperlipidemia Brother Lupus Social History household members: other Smoking Status: Current every day smoker alcohol intake: former substance use type: does not use additional social history: He currently resides in He currently resides in [facility]. Meds Home Medications and Allergies Home Medications Medication Instructions Recorded Confirmed Type acetaminophen 325 mg tablet 1,000 mg PO TID PRN pain/fever ##0 06/29/17 12/01/22 History atorvastatin 80 mg tablet 80 mg PO BEDTIME ##0 06/29/17 12/01/22 History clopidogrel 75 mg tablet 75 mg PO DAILY ##0 06/29/17 12/01/22 History levothyroxine 50 mcg tablet 50 mcg PO QPM ##0 02/27/18 08/01/23 History omeprazole 20 mg capsule,delayed 40 mg PO DAILY ##0 06/29/17 12/01/22 History release insulin aspart U-100 100 unit/mL See Rx Instructions .Route .COMPLEX 11/25/17 12/01/22 History (3 mL) subcutaneous pen (Novolog FlexPen U-100 Insulin aspart) cholecalciferol (vitamin D3) 25 2,000 unit PO DAILY 08/13/18 12/01/22 History mcg (1,000 unit) capsule fluticasone propionate 50 1 spray intranasal BID 08/13/18 12/01/22 History mcg/actuation nasal spray,suspension hydroxyzine pamoate 25 mg capsule 25 - 50 mg PO Q6H PRN pain/spasms 08/13/18 12/01/22 History mirtazapine 15 mg tablet 15 mg PO BEDTIME 08/13/18 12/01/22 History ondansetron 4 mg disintegrating 4 - 8 mg PO Q4H PRN Nausea 08/13/18 12/01/22 History tablet duloxetine 60 mg capsule,delayed 60 mg PO BEDTIME 03/02/19 12/01/22 History release glucagon (human recombinant) 1 mg 1 mg IM PRN PRN blood glucose <60 03/02/19 12/01/22 History solution for injection (Glucagon Emergency Kit) nystatin 100,000 unit/gram topical 1 applic topical BID PRN yeast 03/02/19 12/01/22 History cream aluminum-mag hydroxide-simethicone 10 ml PO DAILY PRN Heartburn 07/04/21 12/01/22 History 200 mg-200 mg-20 mg/5 mL oral susp aspirin 81 mg tablet,delayed 81 mg PO DAILY 07/04/21 12/01/22 History release lubiprostone 24 mcg capsule 24 mcg PO BID 07/04/21 12/01/22 History (Amitiza) oxycodone myristate 18 mg capsule 18 mg PO BID 07/04/21 12/01/22 History sprinkle extended release 12hr(DON'T CRUSH) (Xtampza ER) sertraline 50 mg tablet 50 mg PO DAILY 07/04/21 12/01/22 History tamsulosin 0.4 mg capsule 0.4 mg PO BEDTIME 07/04/21 12/01/22 History bisacodyl 10 mg rectal suppository 10 mg AR DAILY PRN Constipation #0 07/07/21 12/01/22 Rx ea naloxone 0.4 mg/mL injection 0.4 mg IM Q15-20M PRN Opioid 07/07/21 12/01/22 Rx solution Overdose #0 mL oxycodone 5 mg tablet 20 mg PO Q4H PRN pain 7 days #40 07/07/21 12/01/22 Rx tabs polyethylene glycol 3350 17 17 g PO DAILY PRN Constipation #0 07/07/21 12/01/22 Rx gram/dose oral powder grams lorazepam 1 mg tablet (Ativan) 1 mg PO TID PRN nausea and 07/09/22 12/01/22 Rx vomiting #10 tabs cephalexin 500 mg capsule 500 mg PO Q6H 7 days #28 caps 11/28/22 12/01/22 Rx ketorolac 10 mg tablet 10 mg PO Q6H PRN pain #14 tabs 11/28/22 12/01/22 Rx cefpodoxime 200 mg tablet 200 mg PO BID 10 days #20 tabs 11/30/22 12/01/22 Rx bisacodyl 5 mg tablet 5 - 10 mg PO DAILY PRN Constipation 12/01/22 12/01/22 History docusate sodium 100 mg tablet 200 mg PO TID 12/01/22 12/01/22 History furosemide 80 mg tablet 80 mg PO QAM 12/01/22 12/01/22 History insulin glargine 100 unit/mL (3 17 unit SUBCUT BEDTIME 12/01/22 12/01/22 History mL) subcutaneous pen (Lantus Solostar U-100 Insulin) lorazepam 1 mg tablet 1 mg PO BEDTIME PRN Insomnia 12/01/22 12/01/22 History magnesium hydroxide 400 mg/5 mL 30 ml PO DAILY PRN Constipation 12/01/22 12/01/22 History oral suspension (Milk of Magnesia) metoclopramide HCl 5 mg/5 mL oral 10 mg PO QAC 12/01/22 12/01/22 History solution oxymetazoline 0.05 % nasal spray 2 spray intranasal Q12H PRN 12/01/22 12/01/22 History nosebleed propylene glycol 1 %-glycerin 0.3 1 drp ophthalmic (eye) Q1H PRN Dry 12/01/22 12/01/22 History % eye drops Eyes sennosides 8.6 mg tablet (senna) 17.2 mg PO BID 12/01/22 12/01/22 History Allergies Allergy/AdvReac Type Severity Reaction Status Date / Time amitriptyline Allergy Verified 12/01/22 07:38 pollen extracts Allergy Verified 12/01/22 07:38 codeine [CODEINE] AdvReac Unknown nausea Verified 12/01/22 07:38 Review of Systems Review of Systems Narrative: All other systems reviewed with the patient and are negative unless otherwise stated. Exam Vital Signs (past 8 hours): - 12/01/22 07:38 12/01/22 07:36 12/01/22 07:37 Temperature 98.4 F Pulse Rate 95 H 95 H 94 H Respiratory Rate 31 H Blood Pressure 103/55 L Pulse Oximetry 97 97 97 Oxygen Delivery Method Room Air Oxygen Flow Rate 12/01/22 07:37 12/01/22 07:59 12/01/22 07:59 Temperature Pulse Rate 85 Respiratory Rate 6 L Blood Pressure 103/55 L 91/55 L Pulse Oximetry 95 Oxygen Delivery Method Oxygen Flow Rate 12/01/22 08:00 12/01/22 08:00 12/01/22 08:12 Temperature Pulse Rate 85 79 Respiratory Rate 12 21 Blood Pressure 90/54 L Pulse Oximetry 96 96 Oxygen Delivery Method Oxygen Flow Rate 12/01/22 08:12 12/01/22 08:15 12/01/22 08:15 Temperature Pulse Rate 79 Respiratory Rate 20 Blood Pressure 89/54 L 87/49 L Pulse Oximetry 97 Oxygen Delivery Method Oxygen Flow Rate 12/01/22 08:20 12/01/22 08:20 12/01/22 08:23 Temperature Pulse Rate 78 78 Respiratory Rate 20 23 Blood Pressure 88/52 L Pulse Oximetry 96 96 Oxygen Delivery Method Oxygen Flow Rate 12/01/22 08:23 12/01/22 08:25 12/01/22 08:25 Temperature Pulse Rate 78 Respiratory Rate 18 Blood Pressure 100/52 L 99/52 L Pulse Oximetry 96 Oxygen Delivery Method Oxygen Flow Rate 12/01/22 08:30 12/01/22 08:30 12/01/22 08:35 Temperature Pulse Rate 78 Respiratory Rate 14 Blood Pressure 102/56 L 96/55 L Pulse Oximetry 97 Oxygen Delivery Method Oxygen Flow Rate 12/01/22 08:35 12/01/22 08:40 12/01/22 08:40 Temperature Pulse Rate 78 75 Respiratory Rate 14 17 Blood Pressure 98/57 L Pulse Oximetry 97 97 Oxygen Delivery Method Oxygen Flow Rate 12/01/22 08:45 12/01/22 08:45 12/01/22 08:50 Temperature Pulse Rate 73 Respiratory Rate 14 Blood Pressure 91/54 L 99/54 L Pulse Oximetry 97 Oxygen Delivery Method Oxygen Flow Rate 12/01/22 08:50 12/01/22 08:55 12/01/22 08:55 Temperature Pulse Rate 75 73 Respiratory Rate 11 L 15 Blood Pressure 105/56 L Pulse Oximetry 97 97 Oxygen Delivery Method Oxygen Flow Rate 12/01/22 09:00 12/01/22 09:00 12/01/22 09:05 Temperature Pulse Rate 72 Respiratory Rate 12 Blood Pressure 106/55 L 108/56 L Pulse Oximetry 97 Oxygen Delivery Method Oxygen Flow Rate 12/01/22 09:05 12/01/22 09:10 12/01/22 09:10 Temperature Pulse Rate 72 72 Respiratory Rate 14 16 Blood Pressure 103/53 L Pulse Oximetry 97 97 Oxygen Delivery Method Oxygen Flow Rate 12/01/22 09:15 12/01/22 09:15 12/01/22 09:20 Temperature Pulse Rate 71 Respiratory Rate 16 Blood Pressure 104/58 L 100/55 L Pulse Oximetry 98 Oxygen Delivery Method Oxygen Flow Rate 12/01/22 09:20 12/01/22 09:25 12/01/22 09:25 Temperature Pulse Rate 71 71 Respiratory Rate 17 21 Blood Pressure 99/52 L Pulse Oximetry 98 96 Oxygen Delivery Method Oxygen Flow Rate 12/01/22 09:30 12/01/22 09:30 12/01/22 09:35 Temperature Pulse Rate 77 Respiratory Rate 20 Blood Pressure 97/54 L 104/58 L Pulse Oximetry 99 Oxygen Delivery Method Oxygen Flow Rate 12/01/22 09:35 12/01/22 09:40 12/01/22 09:40 Temperature Pulse Rate 77 88 Respiratory Rate 21 17 Blood Pressure 119/58 L Pulse Oximetry 99 93 Oxygen Delivery Method Oxygen Flow Rate 12/01/22 09:45 12/01/22 09:45 12/01/22 09:50 Temperature Pulse Rate 78 Respiratory Rate 20 Blood Pressure 107/55 L 110/59 L Pulse Oximetry 95 Oxygen Delivery Method Oxygen Flow Rate 12/01/22 09:50 12/01/22 09:55 12/01/22 09:55 Temperature Pulse Rate 75 76 Respiratory Rate 22 21 Blood Pressure 110/58 L Pulse Oximetry 99 99 Oxygen Delivery Method Oxygen Flow Rate 12/01/22 10:00 12/01/22 10:02 12/01/22 10:02 Temperature Pulse Rate 85 77 Respiratory Rate 17 16 Blood Pressure 125/56 L Pulse Oximetry 93 98 Oxygen Delivery Method Oxygen Flow Rate 12/01/22 10:05 12/01/22 10:05 12/01/22 10:10 Temperature Pulse Rate 74 Respiratory Rate 17 Blood Pressure 116/61 111/58 L Pulse Oximetry 98 Oxygen Delivery Method Oxygen Flow Rate 12/01/22 10:10 12/01/22 10:15 12/01/22 10:29 Temperature 98.3 F Pulse Rate 72 72 Respiratory Rate 16 15 Blood Pressure Pulse Oximetry 98 98 Oxygen Delivery Method Oxygen Flow Rate 12/01/22 10:20 12/01/22 10:25 12/01/22 10:30 Temperature Pulse Rate 73 71 71 Respiratory Rate 17 17 15 Blood Pressure Pulse Oximetry 99 98 98 Oxygen Delivery Method Oxygen Flow Rate 12/01/22 10:35 12/01/22 10:40 12/01/22 10:45 Temperature Pulse Rate 70 70 69 Respiratory Rate 14 17 15 Blood Pressure Pulse Oximetry 98 98 98 Oxygen Delivery Method Oxygen Flow Rate 12/01/22 11:59 12/01/22 12:04 12/01/22 12:15 Temperature 97.6 F Pulse Rate 73 76 86 Respiratory Rate 20 17 18 Blood Pressure 119/61 110/56 L 94/60 Pulse Oximetry 100 99 99 Oxygen Delivery Method Room Air Room Air Room Air Oxygen Flow Rate 12/01/22 12:09 12/01/22 13:12 Temperature 99 F Pulse Rate 77 83 Respiratory Rate 181 H 18 Blood Pressure 118/54 L 131/86 Pulse Oximetry 99 96 Oxygen Delivery Method Room Air Oxygen Flow Rate 0 Oxygen Delivery Method Room Air Oxygen Flow Rate 0 Narrative Exam Narrative: General alert and cooperative, no acute distress Breathing nonlabored Abdomen S NT ND Extremities with 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 Objective Labs 12/01/22 07:40 12/01/22 07:40 Labs: Laboratory Results - last 24 hr 12/01/22 12/01/22 12/01/22 07:40 07:40 07:40 WBC 10.8 RBC 3.81 L Hgb 9.2 L Hct 27.9 L MCV 73.2 L MCH 24.1 L MCHC 32.9 RDW 15.7 H Plt Count 314 Neut % (Auto) 89.6 H Lymph % (Auto) 1.4 L [place] % (Auto) 8.4 Eos % (Auto) 0.4 L Baso % (Auto) 0.2 Neut # (Auto) 9600 H Lymph # (Auto) 200 L [place] # (Auto) 900 Eos # (Auto) 0 Baso # (Auto) 0 Sodium 132 L Potassium 3.0 L Chloride 96 L Carbon Dioxide 31 BUN 21 H Creatinine 1.45 H Estimated GFR 53 L BUN/Creatinine Ratio 14.5 Glucose 168 H Lactate 0.8 Calcium 8.1 L Total Bilirubin 0.4 AST 20 ALT 14 Alkaline Phosphatase 122 Total Creatine Kinase 37 L Troponin I 0.030 Total Protein 6.5 Albumin 3.4 L Globulin 3.1 Albumin/Globulin Ratio 1.1 Procalcitonin 2.16 H Urine Color Urine Appearance Urine pH Ur Specific [place] Urine Protein Urine Glucose (UA) Urine Ketones Urine Occult Blood Urine Nitrate Urine Bilirubin Ur Bilirubin Confirm Urine Urobilinogen Ur Leukocyte Esterase Urine RBC Urine WBC Ur Squamous Epith Cells Urine Bacteria Ur Culture Indicated? Nasal Screen MRSA (PCR) Chlamy pneumoniae PCR Adenovirus (PCR) B. pertussis DNA (PCR) B.parapertussis DNA PCR Coronavirus OC43 (PCR) Coronavirus HKU1 (PCR) Coronavirus 229E (PCR) SARS-CoV-2 (PCR) Coronavirus NL63 (PCR) Human Metapneumovir PCR Influenza Type A (PCR) Influenza Type B (PCR) M. pneumoniae (PCR) Parainfluenza 1 (PCR) Parainfluenza 2 (PCR) Parainfluenza 3 (PCR) Parainfluenza 4 (PCR) RSV (PCR) Entero/Rhino (PCR) 12/01/22 12/01/22 12/01/22 07:46 08:30 12:35 WBC RBC Hgb Hct MCV MCH MCHC RDW Plt Count Neut % (Auto) Lymph % (Auto) [place] % (Auto) Eos % (Auto) Baso % (Auto) Neut # (Auto) Lymph # (Auto) [place] # (Auto) Eos # (Auto) Baso # (Auto) Sodium Potassium Chloride Carbon Dioxide BUN Creatinine Estimated GFR BUN/Creatinine Ratio Glucose Lactate Calcium Total Bilirubin AST ALT Alkaline Phosphatase Total Creatine Kinase Troponin I Total Protein Albumin Globulin Albumin/Globulin Ratio Procalcitonin Urine Color Yellow Urine Appearance Cloudy Urine pH 6.0 Ur Specific [place] 1.010 Urine Protein 1+ H Urine Glucose (UA) Negative Urine Ketones Negative Urine Occult Blood 1+ H Urine Nitrate Negative Urine Bilirubin 1+ H Ur Bilirubin Confirm Negative Urine Urobilinogen 1.0 Ur Leukocyte Esterase 2+ H Urine RBC None seen Urine WBC 30-100/hpf H Ur Squamous Epith Cells 1-5 /hpf Urine Bacteria Few (2-10) H Ur Culture Indicated? Specimen cultured Nasal Screen MRSA (PCR) Detected H Chlamy pneumoniae PCR Not detected Adenovirus (PCR) Not detected B. pertussis DNA (PCR) Not detected B.parapertussis DNA PCR Not detected Coronavirus OC43 (PCR) Not detected Coronavirus HKU1 (PCR) Not detected Coronavirus 229E (PCR) Not detected SARS-CoV-2 (PCR) Not detected Coronavirus NL63 (PCR) Not detected Human Metapneumovir PCR Not detected Influenza Type A (PCR) Not detected Influenza Type B (PCR) Not detected M. pneumoniae (PCR) Not detected Parainfluenza 1 (PCR) Not detected Parainfluenza 2 (PCR) Not detected Parainfluenza 3 (PCR) Not detected Parainfluenza 4 (PCR) Not detected RSV (PCR) Not detected Entero/Rhino (PCR) Not detected Assessment & Plan Assessment & Plan narrative: #Sepsis with VARGAS and acute metabolic encephalopathy, secondary to complicated acute cystitis with obstructive R nephrolithiasis - continue meropenem based on recent cultures in the ER with resistant morganella. Follow up urine and blood cultures. - appreciate Dr. Freeman management and consultation, after stent placement he does recommend prolonged antibiotic therapy and will follow up in clinic in a couple of weeks to discuss stone removal. - continue IV fluids for now - respiratory panel negative, no respriatory symptoms currently. #IDDM with hypoglycemia Can continue home medications, hypoglycemia likely in setting of sepsis. # chronic iron deficiency anemia continue to trend h/h #hypothyroid continue home levothyroxin 50 #HLD / prior CVA continue home atorvastatin 80, asa/plavix # congestive heart failure unknown type, without exacerbation - continue home furosemide, without acute exacerbation no indication for TTE. #chronic urinary retention - continue denson and flomax #chronic opiate use - continue home medications, may need adjustments with renal colic in setting of obstruction. Continue home laxitive. #hyponatremia and hypokalemia - likely due to volume depletion, will replete with IV fluids and continue to follow labs. Code: Full, surrogate is patient's mother DVT: lovenox daily I have utilized all available immediate resources to obtain, update, or review t he patient's current medications. Dispo: admitted as inpatient with expected stay beyond two midnights. Scores SOFA PaO2/FIO2: >=400 mmHg Platelets: >= 150 Bilirubin: < 1.2 mg/dL Hypotension: MAP >= 70 mmHg Olds Coma Scale: 13-14 Renal: Creatinine 1.2-1.9 mg/dL SOFA Score: 2 Quality MIPS - Admit I confirm the patient?s Advance Care Plan is present, Code status is documented, Surrogate decision maker is in patient?s record [If Yes, STOP here]: Yes
[2022-12-01] MEDS: LEVOTHYROXINE 50 MCG TABLET PO (17:05)
[2022-12-01] MEDS: INSULIN LISPRO 100 UNIT/ML 3ML VIAL SUBCUT ×3 (17:43→21:24)
--- NOTE | 2022-12-01 18:12 | PC.NURSE ---
Admit Note Pt. arrived to room 230 approx. 1230 from PACU post ureteral stent placement. Chronic denson in place, hematuria noted which was noted prior to admission. LR @100, orders to continue fluids for now. Carb consistent diet ordered, pt. reports that he has not been able to eat for several months due to kidney pain with weight loss noted, was able to eat lunch without issue. BG ACHS, high dose sliding scale ordered per provider, pt. reports concerns that hospital sliding scale is too low compared to what he would normally take, provider aware and acknowledges that insulin can be adjusted as needed if BG not well controlled with current sliding scale. Reported upper back pain (chronic) due to previous spinal cord injury and kidney pain, Oxycodone IR restarted and administered with moderate effectiveness. Pt. also given one dose of PO Toradal per request, medication then placed on hold by provider due to VARGAS.
[2022-12-01] MEDS: ATORVASTATIN 20 MG TABLET 80 MG PO (21:18)
[2022-12-01] MEDS: MIRTAZAPINE 15 MG TABLET PO (21:19)
[2022-12-01] MEDS: INSULIN GLARGINE 100 UNIT/ML 3ML PEN 17 UNIT SUBCUT (21:19)
[2022-12-01] MEDS: DULOXETINE 30 MG CAPSULE 60 MG PO (21:19)
[2022-12-01] MEDS: TAMSULOSIN 0.4 MG CAPSULE PO (21:19)
[2022-12-01] MEDS: SENNOSIDES 8.6 MG TABLET 17.2 MG PO (21:19)
[2022-12-01] MEDS: OXYCODONE ER 20 MG TAB PO (21:20)
[2022-12-01] MEDS: LORazepam 1 MG TABLET PO (21:42)
[2022-12-01] MEDS: ONDANSETRON 4 MG/2 ML INJ IV (22:23)
[2022-12-01] MEDS: MAG HYDROX/ALUM/SIMETH 30 ML UDC 10 ML PO (22:42)
[2022-12-01] MEDS: ONDANSETRON 4 MG ODT PO (23:20)
[2022-12-02] VITALS (11 sets, daily range): BP systolic 113–177; BP diastolic 57–76; PULSE 68–90; RESP 15–17; TEMP 36–36.6; O2SAT 94–99
[2022-12-02] MEDS: LORazepam 1 MG TABLET PO (01:02)
[2022-12-02 04:44] LABS: Add Manual Diff / Slide Review NO; Basophils Absolute Auto 100 /uL (0-100); Basophils Percent Auto 1.1 % (0-2); Eosinophils Absolute Auto 0 /uL (0-450); Hematocrit 23.2 % (41-53); Hemoglobin 7.7 g/dL (13.5-17.5); Lymphocytes Absolute Auto 500 /uL (1100-4500); Lymphocytes Percent Auto 4.8 % (25-40); Mean Corpuscular HGB Conc 33.1 % (30-36); Mean Corpuscular Hemoglobin 24.3 PG (26-34); Mean Corpuscular Volume 73.5 fL (80-100); Monocytes Absolute Auto 900 /uL (0-900); Monocytes Percent Auto 8.8 % (3-14); Neutrophils Absolute Auto 8300 /uL (1500-7000); Neutrophils Percent Auto 85.3 % (50-75); Platelet Count 272 X10^3/uL (150-400); Red Blood Cell Count 3.16 X10^6/uL (4.5-5.9); White Blood Cell Count 9.7 X10^3/uL (4.5-11.0)
[2022-12-02 04:55] LABS: Alanine Aminotransferase 14 IU/L (<50); Albumin 2.8 g/dL (3.5-5.0); Albumin Globulin Ratio 0.9 (1.0-2.8); Alkaline Phosphatase 101 U/L (38-126); Aspartate Aminotransferase 17 IU/L (17-59); BUN Creatinine Ratio 22.5 (6-22); Bilirubin Total 0.3 mg/dL (0.2-1.3); Blood Urea Nitrogen 18 mg/dL (9-20); Calcium 7.7 mg/dL (8.4-10.2); Carbon Dioxide 35 mmol/L (22-32); Chloride 94 mmol/L (98-107); Estimated Glomerular Filt Rate > 60 mL/min (>60); Globulin 3.1 g/dL (1.7-4.1); Glucose 186 mg/dL (80-110); HEMOLYSIS < 15 (0-50); Magnesium 1.7 mg/dL (1.6-2.3); Potassium 3.6 mmol/L (3.4-5.1); Sodium 131 mmol/L (137-145); Total Protein 5.9 g/dL (6.3-8.2)
[2022-12-02] MEDS: LACTATED RINGERS 1,000 ML 100 ML IV (06:16)
[2022-12-02] MEDS: PANTOPRAZOLE DR 40 MG TABLET PO (07:56)
[2022-12-02] MEDS: METOCLOPRAMIDE HCL 5 MG TABLET 10 MG PO ×3 (07:56→16:34)
[2022-12-02] MEDS: INSULIN LISPRO 100 UNIT/ML 3ML VIAL SUBCUT ×4 (07:57→16:34)
[2022-12-02] MEDS: ASPIRIN EC 81 MG TABLET PO (08:24)
[2022-12-02] MEDS: ENOXAPARIN 40 MG/0.4 ML SYRINGE SUBCUT (08:25)
[2022-12-02] MEDS: CLOPIDOGREL 75 MG TABLET PO (08:25)
[2022-12-02] MEDS: CHOLECALCIFEROL (VITAMIN D3) 1,000 UNIT TABLET 2000 UNIT PO (08:25)
[2022-12-02] MEDS: DOCUSATE 100 MG CAPSULE 200 MG PO ×2 (08:25→21:04)
[2022-12-02] MEDS: FUROSEMIDE 40 MG TABLET 80 MG PO (08:26)
[2022-12-02] MEDS: OXYCODONE ER 20 MG TAB PO ×2 (08:26→21:07)
[2022-12-02] MEDS: SERTRALINE 50 MG TABLET PO (08:27)
[2022-12-02] MEDS: SENNOSIDES 8.6 MG TABLET 17.2 MG PO ×2 (08:27→21:08)
[2022-12-02] MEDS: ONDANSETRON 4 MG ODT PO (08:35)
[2022-12-02] MEDS: MEROPENEM 1 GM in SODIUM CHLORIDE 0.9% 100 ML IV ×2 (09:49→16:54)
[2022-12-02] MEDS: MAGNESIUM CHLORIDE 64 MG TABLET 128 MG PO (09:49)
--- NOTE | 2022-12-02 14:40 | P.PN_ITS ---
Subjective Subjective Interval history: 67 M admitted with sepsis with obstructing stone now s/p stent placement. Doing well today, pain is improving. Overnight glucose was high, given short acting. 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 Chronic slurred speech Objective Labs 12/02/22 04:09 12/02/22 04:09 Labs: Laboratory Results - last 24 hr 12/02/22 12/02/22 04:09 04:09 WBC 9.7 RBC 3.16 L Hgb 7.7 L Hct 23.2 L MCV 73.5 L MCH 24.3 L MCHC 33.1 RDW 16.0 H Plt Count 272 Neut % (Auto) 85.3 H Lymph % (Auto) 4.8 L [place] % (Auto) 8.8 Eos % (Auto) 0.0 L Baso % (Auto) 1.1 Neut # (Auto) 8300 H Lymph # (Auto) 500 L [place] # (Auto) 900 Eos # (Auto) 0 Baso # (Auto) 100 Sodium 131 L Potassium 3.6 Chloride 94 L Carbon Dioxide 35 H BUN 18 Creatinine 0.80 Estimated GFR > 60 BUN/Creatinine Ratio 22.5 H Glucose 186 H Calcium 7.7 L Magnesium 1.7 Total Bilirubin 0.3 AST 17 ALT 14 Alkaline Phosphatase 101 Total Protein 5.9 L Albumin 2.8 L Globulin 3.1 Albumin/Globulin Ratio 0.9 L PFSH Medical History C3 spinal cord injury C4 spinal cord injury CVA (cerebral vascular accident) Diabetes Gastroesophageal reflux disease Hyperlipidemia Hypertension Surgical History History of carotid endarterectomy History of coronary artery stent placement No pertinent past surgical history Family History Mother Cancer Father Lung disease Hyperlipidemia Brother Lupus Social History household members: other Smoking Status: Current every day smoker alcohol intake: former substance use type: does not use additional social history: He currently resides in He currently resides in [facility]. Assessment & Plan Assessment & Plan narrative: #Sepsis with VARGAS and acute metabolic encephalopathy, secondary to complicated acute cystitis with obstructive R nephrolithiasis - continue meropenem based on recent cultures in the ER with resistant morganella. Follow up urine and blood cultures, blood without growth, urine pending. - appreciate Dr. Freeman management and consultation, after stent placement he does recommend prolonged antibiotic therapy and will follow up in clinic in a couple of weeks to discuss stone removal. - can stop IV fluids today. - respiratory panel negative, no respriatory symptoms currently. - VARGAS improving, near baseline today. #IDDM with hypoglycemia Can continue home medications, hypoglycemia likely in setting of sepsis. - add meal time coverage today given hyperglycemia yesterday evening. # chronic iron deficiency anemia continue to trend h/h #hypothyroid continue home levothyroxin 50 #HLD / prior CVA continue home atorvastatin 80, asa/plavix # congestive heart failure unknown type, without exacerbation - continue home furosemide, without acute exacerbation no indication for TTE. #chronic urinary retention - continue denson and flomax #chronic opiate use - continue home medications, may need adjustments with renal colic in setting of obstruction. Continue home laxitive. #hyponatremia and hypokalemia - likely due to volume depletion, will replete with IV fluids and continue to follow labs. Code: Full, surrogate is patient's mother DVT: lovenox daily I have utilized all available immediate resources to obtain, update, or review the patient's current medications. Dispo: admitted as inpatient with expected stay beyond two midnights. Anticipate discharge in 1-2 days depending on culture results.
--- NOTE | 2022-12-02 14:55 | CM.DANOTE ---
DCP Assessment Note; Patient is a 67yo male here under inpatient status and the care of the hospitalist team. PMH of cervical spinal injury, prior CVA, GERD, HTN, HLD, chronic denson, insulin dependent diabetes who presents as a return to the ER with weakness and acute confusion per his assisted living facility ([facility]). PCP [facility] and Medicaid POULTRY EVISCERATOR reviewed EMR. Per provider in rounds, patient likely to be here a couple of days, maybe two to three. Pending to see if patient returns to baseline or may need additional support/intervention. Per nursing staff, waiting on urine cultures for more information. POULTRY EVISCERATOR entered room and introduced self and role. POULTRY EVISCERATOR attempted to speak with patient twice, however, was drowsy to the point of not being A/O. He was able to report that he lives at [facility], uses a powerchair, and gave CM team verbal permission to speak with brother, Cornel ([phone]), or mother Faviola ([phone]). POULTRY EVISCERATOR called Nani at [facility] to update her on d/c timeline. Nani appreciated the update and asked to be updated daily on the d/c plan. POULTRY EVISCERATOR called mother Faviola. Faviola reports [facility] assists with nearly all functions of daily living, including assisting him getting in and out of bed, meals, bathing, etc. Mother reports patient likes it there and they take good care of him. Mother reports at baseline he uses a power chair. Mother reports she is open to continuing to develop a d/c plan as patient progresses. Plan: patient will likely to d/c back to [facility] when medically stable. Continue to follow to r/o SNF or HH, pending if patient returns to baseline or not. Transportation with facility. CM team to continue to follow closely. ALEC Bernal Discharge Planning/Care Management CM Discharge Assessment Start: 12/02/22 14:52 Freq: Status: Active Protocol: Document 12/02/22 14:53 SL (Rec: 12/02/22 14:55 [id number]) Discharge Planning Assessment Assigned Divisional Merchandising Manager ALEC Hinton DPOA/Assigned Designee Name Faviola (mother) Contact Information [phone] Advance Directives? Yes: POLST;ADV DIR;POA Advance Directives on File Yes History Provided By Patient,Family Member,Medical Record Prior Living Arrangements Assisted Living Household Members other Type of transporation used prior to Relies on Others admit Facility Name Admitted From: [facility] Willing to Return to Facility? Yes Independent with ADL's No Is patient alert and oriented? No: drowsy from medication Needs Assistance With Bathing,Grooming,Meal Prep, Managing Medications,Home Chores / Shopping Comment [facility] staff manages most ADLs for patient DME Already Rented / Owned Wheelchair Comment Patient uses an electric w/c at [facility] Comment unclear at this time. Will continue to pursue as patient progresses back to baseline Discharge Plan Assisted Living Facility Transportation Arrangement Facility Additional Comment Pending Whiteboard Updated in Patient Room with Yes name and ext. # of Divisional Merchandising Manager Review Status In Process Next Review Type Continued Stay Review
[2022-12-02] MEDS: LEVOTHYROXINE 50 MCG TABLET PO (16:35)
[2022-12-02] MEDS: ATORVASTATIN 20 MG TABLET 80 MG PO (21:03)
[2022-12-02] MEDS: DULOXETINE 30 MG CAPSULE 60 MG PO (21:04)
[2022-12-02] MEDS: INSULIN GLARGINE 100 UNIT/ML 3ML PEN 17 UNIT SUBCUT (21:04)
[2022-12-02] MEDS: FLUTICASONE 120 SPRAY/16 GM SPRAY.SUSP NASAL (21:04)
[2022-12-02] MEDS: MIRTAZAPINE 15 MG TABLET PO (21:07)
[2022-12-02] MEDS: TAMSULOSIN 0.4 MG CAPSULE PO (21:08)
[2022-12-03] VITALS (10 sets, daily range): BP systolic 85–150; BP diastolic 46–67; PULSE 70–81; RESP 15–18; TEMP 36.5–37; O2SAT 94–99
[2022-12-03] MEDS: MEROPENEM 1 GM in SODIUM CHLORIDE 0.9% 100 ML IV ×3 (00:58→17:06)
[2022-12-03] MEDS: OXYCODONE IR 5 MG TABLET 20 MG PO (00:58)
[2022-12-03] MEDS: LORazepam 1 MG TABLET PO (01:10)
[2022-12-03] MEDS: NICOTINE 21 MG PATCH TOP ×2 (02:20→08:16)
[2022-12-03 05:04] LABS: Add Manual Diff / Slide Review NO; Basophils Absolute Auto 0 /uL (0-100); Basophils Percent Auto 0.3 % (0-2); Eosinophils Absolute Auto 200 /uL (0-450); Eosinophils Percent Auto 2.1 % (2-4); Hematocrit 23.7 % (41-53); Hemoglobin 7.8 g/dL (13.5-17.5); Lymphocytes Absolute Auto 1700 /uL (1100-4500); Mean Corpuscular HGB Conc 32.8 % (30-36); Mean Corpuscular Hemoglobin 24.1 PG (26-34); Mean Corpuscular Volume 73.5 fL (80-100); Monocytes Absolute Auto 1000 /uL (0-900); Monocytes Percent Auto 10.4 % (3-14); Neutrophils Absolute Auto 6400 /uL (1500-7000); Neutrophils Percent Auto 69.2 % (50-75); Platelet Count 312 X10^3/uL (150-400); Red Blood Cell Count 3.22 X10^6/uL (4.5-5.9); Red Cell Distribution Width 15.9 % (11.6-14.8); White Blood Cell Count 9.3 X10^3/uL (4.5-11.0)
[2022-12-03 05:16] LABS: Alanine Aminotransferase 17 IU/L (<50); Albumin 2.7 g/dL (3.5-5.0); Albumin Globulin Ratio 0.9 (1.0-2.8); Alkaline Phosphatase 106 U/L (38-126); Aspartate Aminotransferase 21 IU/L (17-59); BUN Creatinine Ratio 20.2 (6-22); Bilirubin Total 0.2 mg/dL (0.2-1.3); Blood Urea Nitrogen 17 mg/dL (9-20); Calcium 7.5 mg/dL (8.4-10.2); Carbon Dioxide 33 mmol/L (22-32); Chloride 94 mmol/L (98-107); Estimated Glomerular Filt Rate > 60 mL/min (>60); Glucose 200 mg/dL (80-110); HEMOLYSIS < 15 (0-50); Magnesium 1.5 mg/dL (1.6-2.3); Potassium 3.6 mmol/L (3.4-5.1); Sodium 131 mmol/L (137-145); Total Protein 5.7 g/dL (6.3-8.2)
[2022-12-03] MEDS: PANTOPRAZOLE DR 40 MG TABLET PO (05:58)
--- NOTE | 2022-12-03 06:44 | PC.NURSE ---
pt complains of chronic neck pain, back pain, and kidney pain; he asked for and was prescribed a nicotine patch this shift; he was also given a dose of po ativan, to good effect
[2022-12-03] MEDS: INSULIN LISPRO 100 UNIT/ML 3ML VIAL SUBCUT ×4 (07:59→16:59)
[2022-12-03] MEDS: ASPIRIN EC 81 MG TABLET PO (08:13)
[2022-12-03] MEDS: FUROSEMIDE 40 MG TABLET 80 MG PO (08:13)
[2022-12-03] MEDS: METOCLOPRAMIDE HCL 5 MG TABLET 10 MG PO ×3 (08:13→17:06)
[2022-12-03] MEDS: DOCUSATE 100 MG CAPSULE 200 MG PO ×3 (08:14→21:15)
[2022-12-03] MEDS: CLOPIDOGREL 75 MG TABLET PO (08:14)
[2022-12-03] MEDS: FLUTICASONE 120 SPRAY/16 GM SPRAY.SUSP NASAL (08:15)
[2022-12-03] MEDS: ENOXAPARIN 40 MG/0.4 ML SYRINGE SUBCUT (08:15)
[2022-12-03] MEDS: CHOLECALCIFEROL (VITAMIN D3) 1,000 UNIT TABLET 2000 UNIT PO (08:15)
[2022-12-03] MEDS: OXYCODONE ER 20 MG TAB PO ×2 (08:16→21:16)
[2022-12-03] MEDS: SENNOSIDES 8.6 MG TABLET 17.2 MG PO ×2 (08:16→21:15)
[2022-12-03] MEDS: SERTRALINE 50 MG TABLET PO (08:17)
[2022-12-03] MEDS: MAGNESIUM CHLORIDE 64 MG TABLET 128 MG PO (10:01)
[2022-12-03] MEDS: DEXTROSE 50 % IN WATER 25 GM/50 ML SYRINGE IV (12:01)
[2022-12-03] MEDS: SODIUM CHLORIDE 0.9% 1,000 ML 1000 ML IV ×2 (13:50→19:49)
--- NOTE | 2022-12-03 15:57 | P.PN_ITS ---
Subjective Subjective Interval history: 67 M admitted with sepsis with obstructing stone now s/p stent placement. Doing well today, pain is improving but he remains quite flate. Hypoglycemic this afternoon, reduced mealtime dosing to 2 U from 4 this afternoon. Exam Vital Signs (past 8 hours): - 12/03/22 11:00 12/03/22 11:40 12/03/22 13:17 Temperature 97.7 F 97.7 F Pulse Rate 77 Respiratory Rate 18 Blood Pressure 85/46 L Pulse Oximetry 96 99 Oxygen Delivery Method Room Air 12/03/22 15:00 Temperature Pulse Rate Respiratory Rate Blood Pressure Pulse Oximetry 97 Oxygen Delivery Method Room Air Oxygen Delivery Method Room Air Oxygen Flow Rate 94 Narrative Exam Narrative: General alert and cooperative, no acute distress Breathing nonlabored CTA B/l CV: RRR no m/r/g. 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 Chronic slurred speech Objective Labs 12/03/22 04:18 12/03/22 04:18 Labs: Laboratory Results - last 24 hr 12/03/22 12/03/22 04:18 04:18 WBC 9.3 RBC 3.22 L Hgb 7.8 L Hct 23.7 L MCV 73.5 L MCH 24.1 L MCHC 32.8 RDW 15.9 H Plt Count 312 Neut % (Auto) 69.2 Lymph % (Auto) 18.0 L [place] % (Auto) 10.4 Eos % (Auto) 2.1 Baso % (Auto) 0.3 Neut # (Auto) 6400 Lymph # (Auto) 1700 [place] # (Auto) 1000 H Eos # (Auto) 200 Baso # (Auto) 0 Sodium 131 L Potassium 3.6 Chloride 94 L Carbon Dioxide 33 H BUN 17 Creatinine 0.84 Estimated GFR > 60 BUN/Creatinine Ratio 20.2 Glucose 200 H Calcium 7.5 L Magnesium 1.5 L Total Bilirubin 0.2 AST 21 ALT 17 Alkaline Phosphatase 106 Total Protein 5.7 L Albumin 2.7 L Globulin 3.0 Albumin/Globulin Ratio 0.9 L PFSH Medical History C3 spinal cord injury C4 spinal cord injury CVA (cerebral vascular accident) Diabetes Gastroesophageal reflux disease Hyperlipidemia Hypertension Surgical History History of carotid endarterectomy History of coronary artery stent placement No pertinent past surgical history Family History Mother Cancer Father Lung disease Hyperlipidemia Brother Lupus Social History household members: other Smoking Status: Current every day smoker alcohol intake: former substance use type: does not use additional social history: He currently resides in He currently resides in [facility]. Assessment & Plan Assessment & Plan narrative: #Sepsis with VARGAS and acute metabolic encephalopathy, secondary to complicated acute cystitis with obstructive R nephrolithiasis - continue meropenem based on recent cultures in the ER with resistant morganella. Follow up urine and blood cultures, blood without growth, urine with gram negative bacilli. - appreciate Dr. Freeman management and consultation, after stent placement he does recommend prolonged antibiotic therapy and will follow up in clinic in a couple of weeks to discuss stone removal. - can stop IV fluids today. - respiratory panel negative, no respriatory symptoms currently. - VARGAS resolved, near baseline today. #IDDM with hypoglycemia Can continue home medications, hypoglycemia likely in setting of sepsis. - added meal time coverage yestserday given hyperglycemia, with hypogycemia a gain today. Lower from 4 to 2 U with meals. # chronic iron deficiency anemia continue to trend h/h, stable in upper 7s last two days though this is lower than baseline. No signs or symptoms to suggest bleeding. #hypothyroid continue home levothyroxin 50 #HLD / prior CVA continue home atorvastatin 80, asa/plavix # congestive heart failure unknown type, without exacerbation - continue home furosemide, without acute exacerbation no indication for TTE. #chronic urinary retention - continue denson and flomax #chronic opiate use - continue home medications, may need adjustments with renal colic in setting of obstruction. Continue home laxitive. #hyponatremia and hypokalemia - likely due to volume depletion, will replete with IV fluids and continue to follow labs. Code: Full, surrogate is patient's mother DVT: lovenox daily I have utilized all available immediate resources to obtain, update, or review the patient's current medications. Dispo: admitted as inpatient with expected stay beyond two midnights. Anticipate discharge in 1-2 days depending on culture results. Ordered for therapy today to assess for appropriateness of return to [facility] at discharge.
--- NOTE | 2022-12-03 16:55 | CM.DPC ---
DCP Continued: Per provider, likely will continue to be here another day or so. NEEDLE BOARD REPAIRER attempted to rouse patient, patient continues to not be alert enough for a conversation at this time. NEEDLE BOARD REPAIRER lvm with [place] to update them on the d/c plan. Plan: patient likely to return to [place] when medically stable. CM team will continue to follow closely. AELC Bernal
[2022-12-03] MEDS: TAMSULOSIN 0.4 MG CAPSULE PO (21:15)
[2022-12-03] MEDS: DULOXETINE 30 MG CAPSULE 60 MG PO (21:15)
[2022-12-03] MEDS: MIRTAZAPINE 15 MG TABLET PO (21:16)
[2022-12-03] MEDS: ATORVASTATIN 20 MG TABLET 80 MG PO (21:16)
[2022-12-04] MEDS: LORazepam 1 MG TABLET PO (00:05)
[2022-12-04 01:00] VITALS: O2SAT 96
[2022-12-04] MEDS: MEROPENEM 1 GM in SODIUM CHLORIDE 0.9% 100 ML IV ×2 (01:52→09:52)
[2022-12-04 03:00] VITALS: BP 138/65; PULSE 80; RESP 17; TEMP 36.2; O2SAT 98
[2022-12-04 04:55] LABS: Add Manual Diff / Slide Review NO; Basophils Absolute Auto 0 /uL (0-100); Basophils Percent Auto 0.3 % (0-2); Eosinophils Absolute Auto 300 /uL (0-450); Eosinophils Percent Auto 3.1 % (2-4); Hematocrit 26.1 % (41-53); Hemoglobin 8.5 g/dL (13.5-17.5); Lymphocytes Absolute Auto 1600 /uL (1100-4500); Mean Corpuscular HGB Conc 32.7 % (30-36); Mean Corpuscular Hemoglobin 24.3 PG (26-34); Mean Corpuscular Volume 74.3 fL (80-100); Monocytes Absolute Auto 800 /uL (0-900); Monocytes Percent Auto 9.3 % (3-14); Neutrophils Absolute Auto 5500 /uL (1500-7000); Neutrophils Percent Auto 67.3 % (50-75); Platelet Count 357 X10^3/uL (150-400); Red Blood Cell Count 3.52 X10^6/uL (4.5-5.9); Red Cell Distribution Width 15.9 % (11.6-14.8); White Blood Cell Count 8.1 X10^3/uL (4.5-11.0)
[2022-12-04 05:00] VITALS: O2SAT 96
[2022-12-04 05:00] LABS: Alanine Aminotransferase 19 IU/L (<50); Albumin 2.9 g/dL (3.5-5.0); Albumin Globulin Ratio 0.9 (1.0-2.8); Alkaline Phosphatase 124 U/L (38-126); Aspartate Aminotransferase 23 IU/L (17-59); BUN Creatinine Ratio 17.6 (6-22); Bilirubin Total 0.3 mg/dL (0.2-1.3); Blood Urea Nitrogen 13 mg/dL (9-20); Calcium 7.6 mg/dL (8.4-10.2); Carbon Dioxide 34 mmol/L (22-32); Chloride 94 mmol/L (98-107); Estimated Glomerular Filt Rate > 60 mL/min (>60); Globulin 3.2 g/dL (1.7-4.1); Glucose 309 mg/dL (80-110); HEMOLYSIS < 15 (0-50); Magnesium 1.3 mg/dL (1.6-2.3); Potassium 3.4 mmol/L (3.4-5.1); Sodium 133 mmol/L (137-145); Total Protein 6.1 g/dL (6.3-8.2)
[2022-12-04] MEDS: PANTOPRAZOLE DR 40 MG TABLET PO (06:29)
[2022-12-04] MEDS: LEVOTHYROXINE 50 MCG TABLET PO (06:29)
[2022-12-04] MEDS: INSULIN LISPRO 100 UNIT/ML 3ML VIAL SUBCUT ×2 (07:46)
[2022-12-04] MEDS: hydrOXYzine pamoate 25 MG CAPSULE PO (07:55)
[2022-12-04] MEDS: NICOTINE 21 MG PATCH TOP (08:04)
[2022-12-04] MEDS: OXYCODONE ER 20 MG TAB PO (08:04)
[2022-12-04] MEDS: DOCUSATE 100 MG CAPSULE 200 MG PO (08:05)
[2022-12-04] MEDS: METOCLOPRAMIDE HCL 5 MG TABLET 10 MG PO (08:05)
[2022-12-04] MEDS: ASPIRIN EC 81 MG TABLET PO (08:07)
[2022-12-04] MEDS: CLOPIDOGREL 75 MG TABLET PO (08:07)
[2022-12-04] MEDS: CHOLECALCIFEROL (VITAMIN D3) 1,000 UNIT TABLET 2000 UNIT PO (08:07)
[2022-12-04] MEDS: SERTRALINE 50 MG TABLET PO (08:07)
[2022-12-04] MEDS: SENNOSIDES 8.6 MG TABLET 17.2 MG PO (08:07)
[2022-12-04] MEDS: ENOXAPARIN 40 MG/0.4 ML SYRINGE SUBCUT (08:08)
[2022-12-04] MEDS: FLUTICASONE 120 SPRAY/16 GM SPRAY.SUSP NASAL (08:09)
[2022-12-04 08:41] VITALS: BP 143/86; PULSE 83; RESP 17; TEMP 36.6; O2SAT 96
[2022-12-04 09:00] VITALS: O2SAT 96
[2022-12-04] MEDS: OXYCODONE IR 5 MG TABLET 20 MG PO (09:51)
[2022-12-04] MEDS: MAGNESIUM SULFATE 4 GM/100 ML PIGGYBACK IV (09:51)
[2022-12-04] MEDS: POTASSIUM CHLORIDE 20 MEQ TAB 40 MEQ PO (09:52)
--- NOTE | 2022-12-04 10:21 | PT-IP ANOTE ---
Discussed pt in rounds and pts has been d/cd by MD from the hospital and MD states that therapies can be d/cd as well.
--- NOTE | 2022-12-04 10:35 | P.DS_ITS ---
History of Present Illness History of Present Illness Chief complaint: kidney stone Narrative: 67 M with PMH of cervical spinal injury, prior CVA, GERD, HTN, HLD, chronic denson, insulin dependent diabetes who presents as a return to the ER with weakness and acute confusion per his assisted living facility ([facility]). Patient was in the ER on 11/28, found to have an obstructed R ureteral stone, and was discharged home with reassuring labs, on oral antibiotics and extensive consultation with urology whom was orthodontic treatment coordinator at the time. Today he has a worsening creatining, with reported weakness and confusion. There is no leukocytosis, but procalcitonin is 2.16. Patient had urology consultation with Dr. Freeman whom performed stent placement earlier today. UA is again positive, recent cultures with morganella from prior ER visit with resistance to penicillins and unasyn, cephalosporins as well. He was given zosyn with ER provider, I recommended meropenem based on resistance profile from ER visit. He had been given fluids with LR. Discharge Providers Provider Date of admission: 12/01/22 10:38 Discharge Date: 12/04/22 Primary care physician: BOO Harden Consults: 12/01/22 13:54 Consult to Dietitian, Adult Routine Comment: Reason For Exam: Admission score 12/03/22 14:19 Consult to Physical Therapy Evaluate & Treat Comment: Physician Instructions: Evaluate and Treat Discharge provider: Anand Medina MD Summary Hospital Course Discharge Diagnosis: 1. Sepsis with acute end organ dysfunction 2. Complicated acute UTI, moganella sp, secondary to obstructive stone 3. Obstructive right nephrolithiasis 4. DM insulin requiring 5. Chronic iron deficiency anemia 6. Chronic urinary retention 7. Paraplegia 8. Chronic opiate dependency Operative Date/Time/Diagnoses Date of procedure: 12/01/22 Time of procedure: 11:50 Pre-op diagnosis: 1. Obstructing 1.2 x 0.8 cm right proximal ureteral calculus. ? 2. Urosepsis. 3. Nephrolithiasis. Post-op diagnosis: same Procedure & Clinicians Procedure: 1. Cystoscopy/right ureteral stone manipulation without removal 2. Cystoscopy/placement right ureteral stent (8 Telugu by 22-32 cm multi- length). 3. Placement Denson catheter. Same procedure as scheduled: Yes Indications: 1. Obstructing 1.2 by 0.8 cm right proximal ureteral calculus.? 2. Urosepsis. 3. Chronic indwelling Denson catheter for management of incontinence.? Surgeon: Modesta Rosenbaum Hospital Course: As noted Dr Rosenbaum performed right ureteral stent placement for obstructive stone. Patient was treated with meropenem for sepsis due to complicated UTI. Urine culture positive for morganella species sensitive to Meropenem, Zosyn, Ceftaz as well as Bactrim and Augmentin. He is discharged back to [place] on Bactrim DS x 2 weeks and urology follow up with Dr Rosenbaum. Status at Discharge Cognitive/behavioral status at discharge: at baseline, oriented Overall status at discharge: patient is progressing back to baseline Time Spent with Patient Time spent: Greater than 30 minutes Exam Vital Signs (past 8 hours): - 12/04/22 03:00 12/04/22 05:00 12/04/22 08:41 Temperature 97.2 F L 97.9 F Pulse Rate 80 83 Respiratory Rate 17 17 Blood Pressure 138/65 143/86 H Pulse Oximetry 98 96 96 Oxygen Delivery Method Room Air Oxygen Flow Rate 0 0 12/04/22 07:00 12/04/22 09:00 Temperature Pulse Rate Respiratory Rate Blood Pressure Pulse Oximetry 96 Oxygen Delivery Method Room Air Room Air Oxygen Flow Rate Oxygen Delivery Method Room Air Oxygen Flow Rate 0 Narrative Exam Narrative: General: alert, appears at baseline Objective Labs 12/04/22 04:00 12/04/22 04:00 Labs: Laboratory Results - last 24 hr 12/04/22 12/04/22 04:00 04:00 WBC 8.1 RBC 3.52 L Hgb 8.5 L Hct 26.1 L MCV 74.3 L MCH 24.3 L MCHC 32.7 RDW 15.9 H Plt Count 357 Neut % (Auto) 67.3 Lymph % (Auto) 20.0 L [place] % (Auto) 9.3 Eos % (Auto) 3.1 Baso % (Auto) 0.3 Neut # (Auto) 5500 Lymph # (Auto) 1600 [place] # (Auto) 800 Eos # (Auto) 300 Baso # (Auto) 0 Sodium 133 L Potassium 3.4 Chloride 94 L Carbon Dioxide 34 H BUN 13 Creatinine 0.74 Estimated GFR > 60 BUN/Creatinine Ratio 17.6 Glucose 309 H D Calcium 7.6 L Magnesium 1.3 L Total Bilirubin 0.3 AST 23 ALT 19 Alkaline Phosphatase 124 Total Protein 6.1 L Albumin 2.9 L Globulin 3.2 Albumin/Globulin Ratio 0.9 L PFSH Medical History C3 spinal cord injury C4 spinal cord injury CVA (cerebral vascular accident) Diabetes Gastroesophageal reflux disease Hyperlipidemia Hypertension Surgical History History of carotid endarterectomy History of coronary artery stent placement No pertinent past surgical history Family History Mother Cancer Father Lung disease Hyperlipidemia Brother Lupus Social History household members: other Smoking Status: Current every day smoker alcohol intake: former substance use type: does not use additional social history: He currently resides in He currently resides in [facility]. Discharge Plan Discharge Plan Patient Disposition: Home Provider Discharge Comment: You had right ureteral stent placement for obstructive kidney stone. You were also treated for a UTI. Please take oral antibiotic until prescription is completed. Follow up with Dr Rosenbaum for urology. Discharge orders & Medications Prescriptions: New sulfamethoxazole-trimethoprim [Bactrim DS] 800-160 mg tablet 1 tab PO BID 14 Days Qty: 28 0RF Continued atorvastatin 80 MG tablet 80 mg PO BEDTIME Qty: 0 clopidogrel 75 MG tablet 75 mg PO DAILY Qty: 0 levothyroxine 50 MCG tablet 50 mcg PO QPM Qty: 0 acetaminophen 325 MG tablet 1,000 mg PO TID PRN (Reason: pain/fever) Qty: 0 omeprazole 20 MG capsule,delayed release(DR/EC) 40 mg PO DAILY Qty: 0 tamsulosin 0.4 mg capsule 0.4 mg PO BEDTIME sertraline 50 mg tablet 50 mg PO DAILY Xtampza ER 18 mg cap,sprinkl,ER12hr(DONT CRUSH) 18 mg PO BID alum-mag hydroxide-simeth 200-200-20 mg/5 mL Suspension 10 ml PO DAILY PRN (Reason: Heartburn) Rx Instructions: 10-20mls lubiprostone [Amitiza] 24 mcg capsule 24 mcg PO BID aspirin 81 mg tablet,delayed release (DR/EC) 81 mg PO DAILY naloxone 0.4 mg/mL solution 0.4 mg IM Q15-20M PRN (Reason: Opioid Overdose) Qty: 0 0RF bisacodyl 10 MG suppository 10 mg SD DAILY PRN (Reason: Constipation) Qty: 0 0RF polyethylene glycol 3350 17 gram/dose powder 17 g PO DAILY PRN (Reason: Constipation) Qty: 0 0RF oxycodone 5 mg tablet 20 mg PO Q4H PRN (Reason: pain) 7 Days Qty: 40 0RF Rx Instructions: hold if too sedated lorazepam [Ativan] 1 mg tablet 1 mg PO TID PRN (Reason: nausea and vomiting) Qty: 10 0RF ketorolac 10 mg tablet 10 mg PO Q6H PRN (Reason: pain) Qty: 14 0RF Rx Instructions: for 5 days cefpodoxime 200 mg tablet 200 mg PO BID 10 Days Qty: 20 0RF Rx Instructions: must administer with a meal/food mirtazapine 15 mg Tablet 15 mg PO BEDTIME fluticasone propionate 50 mcg/actuation [place],Suspension 1 spray INTRANASAL BID cholecalciferol (vitamin D3) 1,000 unit Capsule 2,000 unit PO DAILY hydroxyzine pamoate 25 mg Capsule 25 - 50 mg PO Q6H PRN (Reason: pain/spasms) ondansetron 4 mg Tablet,Disintegrating 4 - 8 mg PO Q4H PRN (Reason: Nausea) Patient Comments: 1 - 2 prn nausea Glucagon Emergency Kit (human) 1 mg Recon Soln 1 mg IM PRN MDD ` PRN (Reason: blood glucose <60) duloxetine 60 mg capsule,delayed release(DR/EC) 60 mg PO BEDTIME nystatin 100,000 unit/gram Cream 1 applic TOPICAL BID PRN (Reason: yeast) furosemide 80 mg Tablet 80 mg PO QAM lorazepam 1 mg Tablet 1 mg PO BEDTIME PRN (Reason: Insomnia) docusate sodium 100 mg Tablet 200 mg PO TID bisacodyl 5 mg Tablet 5 - 10 mg PO DAILY PRN (Reason: Constipation) propylene glycol-glycerin 1-0.3 % Drops 1 drp OPHTHALMIC (EYE) Q1H PRN (Reason: Dry Eyes) insulin glargine [Lantus Solostar U-100 Insulin] 100 unit/mL (3 mL) Insulin Pen 17 unit SUBCUT BEDTIME sennosides [senna] 8.6 mg Tablet 17.2 mg PO BID metoclopramide HCl 5 mg/5 mL Solution 10 mg PO QAC Rx Instructions: before meals for chronic nausea magnesium hydroxide [Milk of Magnesia] 400 mg/5 mL Suspension 30 ml PO DAILY PRN (Reason: Constipation) oxymetazoline 0.05 % [place],Non-Aerosol 2 spray INTRANASAL Q12H PRN (Reason: nosebleed) insulin aspart U-100 [Novolog FlexPen U-100 Insulin] 100 unit/mL insulin pen See Rx Instructions .ROUTE .COMPLEX Rx Instructions: Per [facility] med list, insulin instructions are per Ray who directs his own dosing of insulin based on what he is about to consume w/ meals Discontinued cephalexin 500 mg capsule 500 mg PO Q6H 7 Days Qty: 28 0RF Follow up/Referrals: Modesta Rosenbaum MD [Physician] - 1 Week Eli Montanez ARNP [Primary Care Provider] - Discharge Health Status Multidrug resistant organism: No MDRO Diet/Activity/Treatments Diet: Regular Visit Report/Discharge Packet Stand Alone Forms: Patient Portal/API, Stroke Signs & Symptoms Discharge Data Primary Care Provider: Eli Montanez
--- NOTE | 2022-12-04 13:41 | CM.DPNOTE ---
Discharge Planning Note: Patient discharged back to [facility]; their vacuum truck driver came to pick him up. Macey Acuña RN/DCP
== END 2022-12-04 11:52 | disposition home or self-care (01) | DRG 853 ==
LOC: ED 10:32 → AC 10:38 → ICU 11:08
PROVIDERS: Specialist; Admitting Provider Internal Medicine; Emergency Provider Emergency Medicine; Family Provider Nurse Practitioner Family; PCP Nurse Practitioner Family; Referring Provider Emergency Medicine; Visit Provider Internal Medicine
PROC: 0T768DZ Dilation of Right Ureter with Intraluminal Device, Via Natural or Artificial Opening Endoscopic (ICD-10-PCS; principal; 2022-12-01 10:45)
DX: A41.9 Sepsis, unspecified organism (principal); G93.41 Metabolic encephalopathy; E87.1 Hypo-osmolality and hyponatremia; N17.9 Acute kidney failure, unspecified; N30.01 Acute cystitis with hematuria; N20.2 Calculus of kidney with calculus of ureter; F11.20 Opioid dependence, uncomplicated; F17.210 Nicotine dependence, cigarettes, uncomplicated; E11.649 Type 2 diabetes mellitus with hypoglycemia without coma; D50.9 Iron deficiency anemia, unspecified; E03.9 Hypothyroidism, unspecified; E78.5 Hyperlipidemia, unspecified; R33.9 Retention of urine, unspecified; E87.6 Hypokalemia; R65.20 Severe sepsis without septic shock; I11.0 Hypertensive heart disease with heart failure; I50.9 Heart failure, unspecified; B96.89 Other specified bacterial agents as the cause of diseases classified elsewhere; K21.9 Gastro-esophageal reflux disease without esophagitis; Z89.611 Acquired absence of right leg above knee; Z86.73 Personal history of transient ischemic attack (TIA), and cerebral infarction without residual deficits; Z79.4 Long term (current) use of insulin; N20.0 Calculus of kidney; Z79.899 Other long term (current) drug therapy; R11.0 Nausea
CPT/HCPCS: 36415; 71250; 74018; 74176; 74178; 76000; 80053; 81001; 82550; 82962; 83605; 83690; 83735; 84145; 84484; 85025; 87040; 87077; 87086; 87186; 87633; 87797; 93005; 93010; 96365; 96366; 96375; 99284; 99285; C9113; J0696; J1100; J1170; J1650; J1815; J1885; J2185; J2405; J2543; J2704; J3010; J3475; J3490; Q9967

== ENCOUNTER 2023-01-05 09:25 | Emergency (ER) | payer MEDICARE, MEDICAID, SELFPAY ==
[2022-12-01 13:43] VITALS: BMI 21.7
[2023-01-05] VITALS (30 sets, daily range): BP systolic 75–156; BP diastolic 39–68; PULSE 70–135; RESP 11–24; TEMP 37.5; O2SAT 90–100; BMI 21.6
--- NOTE | 2023-01-05 09:39 | DI.CT.S_ITS ---
PROCEDURE: CT KIDNEY URETER BLADDER (KUB) INDICATIONS: ureteral stent, feels like stone blocking catheter, is drain TECHNIQUE: Axial sections were acquired from the lung bases to the pubic symphysis. Coronal and sagittal reformats were performed. For radiation dose reduction, the following was used: automated exposure control, adjustment of mA and/or kV according to patient size. COMPARISON: [facility], CT, CT CHEST ABD PEL WO CON, 12/01/2022, 7:47. [facility], CR, XR KUB, 12/01/2022, 10:41. [facility], CR, XR ABDOMEN 1V, 12/01/2022, 11:46. FINDINGS: Image quality: Excellent. Lung bases: Bibasilar scars and atelectasis. Small hiatal hernia. Heart: Normal size. Severe coronary artery calcification. URINARY: Right Kidney: There is a ureteral stent in expected position. Small right renal calculi are present in the right renal collecting system. Mild right hydronephrosis. Right Ureter: Ureter stent is noted. Left Kidney: No stones or hydronephrosis. Calcific foci in renal hilum are likely vascular in nature. Left Ureter: No hydroureter. Bladder: There are small calcified stones in the gravity dependent bladder lumen. Mild bladder wall thickening. ABDOMEN: Liver: Unremarkable. Gallbladder: Unremarkable. Biliary ducts: Unremarkable. Pancreas: Unremarkable. Spleen: Unremarkable. Adrenal Glands: Unremarkable. Stomach and Bowel: Stomach, small bowel loops, and colon are unremarkable. There is a large amount of stool in colon. There is thickening of rectum. Peritoneum: No abnormal intraperitoneal fluid. No free air. Ventral Wall: No hernia. Abdominal Nodes: No enlarged retroperitoneal or mesenteric lymph nodes. Vessels: Aorta and inferior vena cava are normal in size. Severe atherosclerosis. PELVIS: Pelvic Organs: Unremarkable. Pelvic Nodes: Unremarkable. Miscellaneous: No inguinal hernias are seen. Bones: Severe chronic compression fracture of L1, unchanged. IMPRESSION: 1. There is a right ureteral stent which is in expected position. There is mild right hydronephrosis. The finding could be secondary to stent obstruction. Multiple small renal calculi are present in the right renal collecting system. 2. There are stones within the urinary bladder. Mild bladder wall thickening suggesting cystitis. 3. Thickening of rectum suggesting proctitis. 4. A large amount of stool in colon. 5. Severe chronic compression fracture of L1. Dictated by: Clif Bermeo M.D. on 01/05/2023 at 11:11 Approved by: Clif Bermeo M.D. on 01/05/2023 at 11:19
--- NOTE | 2023-01-05 09:54 | ED.ABDPAIN ---
HPI - Abdominal Pain General Chief Complaint: Abdominal Pain Stated Complaint: Abd. Pain Time Seen by Provider: 01/05/23 09:29 Source: patient, EMS and old records reviewed Mode of arrival: EMS Limitations: no limitations History of Present Illness HPI narrative: Patient has history of peripheral vascular disease, prior spinal cord injury, diabetes, with recent UTI with obstructive stone with ureteral stent. Patient presents with complaint of sudden onset pain today, he describes abdominal pain. He is quite uncomfortable. Patient states it feels like his catheter is blocked and there is a stone stuck in it. He states he can not urinate. There is urine draining from the catheter although it does look infected. No reported fevers, no chest pain or shortness of breath, no nausea or vomiting, no complaints of issues with bowel movements. Patient did have a large bowel movement here in the emergency department. He states Guzman catheter is only been in place for about a month, he states he did not have 1 before this. Patient has not been back to see Dr. Rosenbaum to have his ureteral stent removed. He lives at [place]. Related Data Home Medications Medication Instructions Recorded Confirmed acetaminophen 325 mg tablet 1,000 mg PO TID PRN pain/fever ##0 06/29/17 12/01/22 atorvastatin 80 mg tablet 80 mg PO BEDTIME ##0 06/29/17 12/01/22 clopidogrel 75 mg tablet 75 mg PO DAILY ##0 06/29/17 12/01/22 levothyroxine 50 mcg tablet 50 mcg PO QPM ##0 06/29/17 12/01/22 omeprazole 20 mg capsule,delayed 40 mg PO DAILY ##0 06/29/17 12/01/22 release insulin aspart U-100 100 unit/mL See Rx Instructions .Route .COMPLEX 11/25/17 12/01/22 (3 mL) subcutaneous pen (Novolog FlexPen U-100 Insulin aspart) cholecalciferol (vitamin D3) 25 2,000 unit PO DAILY 08/13/18 12/01/22 mcg (1,000 unit) capsule fluticasone propionate 50 1 spray intranasal BID 08/13/18 12/01/22 mcg/actuation nasal spray,suspension hydroxyzine pamoate 25 mg capsule 25 - 50 mg PO Q6H PRN pain/spasms 08/13/18 12/01/22 mirtazapine 15 mg tablet 15 mg PO BEDTIME 08/13/18 12/01/22 ondansetron 4 mg disintegrating 4 - 8 mg PO Q4H PRN Nausea 08/13/18 12/01/22 tablet duloxetine 60 mg capsule,delayed 60 mg PO BEDTIME 03/02/19 12/01/22 release glucagon (human recombinant) 1 mg 1 mg IM PRN PRN blood glucose <60 03/02/19 12/01/22 solution for injection (Glucagon Emergency Kit) nystatin 100,000 unit/gram topical 1 applic topical BID PRN yeast 03/02/19 12/01/22 cream aluminum-mag hydroxide-simethicone 10 ml PO DAILY PRN Heartburn 07/04/21 12/01/22 200 mg-200 mg-20 mg/5 mL oral susp aspirin 81 mg tablet,delayed 81 mg PO DAILY 07/04/21 12/01/22 release lubiprostone 24 mcg capsule 24 mcg PO BID 07/04/21 12/01/22 (Amitiza) oxycodone myristate 18 mg capsule 18 mg PO BID 07/04/21 12/01/22 sprinkle extended release 12hr(DON'T CRUSH) (Xtampza ER) sertraline 50 mg tablet 50 mg PO DAILY 07/04/21 12/01/22 tamsulosin 0.4 mg capsule 0.4 mg PO BEDTIME 07/04/21 12/01/22 bisacodyl 5 mg tablet 5 - 10 mg PO DAILY PRN Constipation 12/01/22 12/01/22 docusate sodium 100 mg tablet 200 mg PO TID 12/01/22 12/01/22 furosemide 80 mg tablet 80 mg PO QAM 12/01/22 12/01/22 insulin glargine 100 unit/mL (3 17 unit SUBCUT BEDTIME 12/01/22 12/01/22 mL) subcutaneous pen (Lantus Solostar U-100 Insulin) lorazepam 1 mg tablet 1 mg PO BEDTIME PRN Insomnia 12/01/22 12/01/22 magnesium hydroxide 400 mg/5 mL 30 ml PO DAILY PRN Constipation 12/01/22 12/01/22 oral suspension (Milk of Magnesia) metoclopramide HCl 5 mg/5 mL oral 10 mg PO QAC 12/01/22 12/01/22 solution oxymetazoline 0.05 % nasal spray 2 spray intranasal Q12H PRN 12/01/22 12/01/22 nosebleed propylene glycol 1 %-glycerin 0.3 1 drp ophthalmic (eye) Q1H PRN Dry 12/01/22 12/01/22 % eye drops Eyes sennosides 8.6 mg tablet (senna) 17.2 mg PO BID 12/01/22 12/01/22 Previous Rx's Medication Instructions Recorded bisacodyl 10 mg rectal suppository 10 mg TN DAILY PRN Constipation #0 07/07/21 ea naloxone 0.4 mg/mL injection 0.4 mg IM Q15-20M PRN Opioid 07/07/21 solution Overdose #0 mL oxycodone 5 mg tablet 20 mg PO Q4H PRN pain 7 days #40 07/07/21 tabs polyethylene glycol 3350 17 17 g PO DAILY PRN Constipation #0 07/07/21 gram/dose oral powder grams lorazepam 1 mg tablet (Ativan) 1 mg PO TID PRN nausea and 07/09/22 vomiting #10 tabs ketorolac 10 mg tablet 10 mg PO Q6H PRN pain #14 tabs 11/28/22 cefdinir 300 mg capsule 300 mg PO BID #20 caps 01/05/23 cefdinir 300 mg capsule 300 mg PO BID #20 caps 01/05/23 Allergies Allergy/AdvReac Type Severity Reaction Status Date / Time amitriptyline Allergy Verified 12/01/22 07:38 pollen extracts Allergy Verified 12/01/22 07:38 codeine [CODEINE] AdvReac Unknown nausea Verified 12/01/22 07:38 Review of Systems Review of Systems ROS Unobtainable: All systems reviewed & are unremarkable except as noted in HPI and below Patient History Medical History C3 spinal cord injury C4 spinal cord injury CVA (cerebral vascular accident) Diabetes Gastroesophageal reflux disease Hyperlipidemia Hypertension Surgical History History of carotid endarterectomy History of coronary artery stent placement No pertinent past surgical history Family History Mother Cancer Father Lung disease Hyperlipidemia Brother Lupus Social History household members: other Smoking Status: Current every day smoker alcohol intake: former substance use type: does not use additional social history: He currently resides in He currently resides in [facility]. Smoking Status: Current every day smoker tobacco type: cigarettes alcohol intake frequency: other Substance Use Type: does not use Exam Narrative Exam Narrative: GENERAL: Alert and oriented x three, male in moderate distress. HEENT: Head normocephalic, atraumatic, EOMI, pupils reactive, face symmetric, moist mucous membranes NECK: Supple, full range of motion CARDIOVASCULAR: Regular rate and rhythm without murmurs, rubs or gallops. RESPIRATORY: Breath sounds equal bilaterally, no wheezes rales or rhonchi. ABDOMEN: Soft, nontender. Nondistended. Normoactive bowel sounds all 4 quadrants. No guarding or rebound, rigidity, no mass : No CVA tenderness, patient has Guzman catheter in place, urine appears slightly thick, light yellow but draining. Male: normal external examination with Guzman catheter in place, no penile discharge or lesions, testicles non-tender, no inguinal hernias noted. EXTREMITIES: Normal range of motion, no clubbing or edema. Neurovascularly intact NEUROLOGICAL: Cranial nerves II through XII grossly intact. Moving all extremities SKIN: Warm, dry, no petechiae, no rashes or lesions. Initial Vital Signs Initial Vital Signs: Vital Signs Temperature 99.5 F 01/05/23 09:59 Pulse Rate 135 H 01/05/23 09:59 Respiratory Rate 20 01/05/23 09:59 Blood Pressure 156/68 H 01/05/23 09:59 Pulse Oximetry 99 01/05/23 09:59 Oxygen Delivery Method Room Air 01/05/23 09:59 Course Orders Ordered: ED Orders 01/05/23 10:41 Urinalysis and Microscopic Stat Urine Culture Stat 01/05/23 11:23 Lactate (Lactic Acid) Stat Discontinued Medications Hydromorphone HCl (Hydromorphone 1 Mg Inj) 1 mg IV NOW ONE Stop: 01/05/23 10:19 Last Admin: 01/05/23 10:23 Dose: 1 mg Documented By: [facility] Sodium Chloride (Normal Saline 0.9%) 1,000 mls @ 1,000 mls/hr IV BOLUS PRN PRN Reason: Fluid replacement Last Infusion: 01/05/23 10:47 Dose: 0 mls/hr Documented By: Admin: 01/05/23 10:07 Dose: 1,000 mls/hr Documented By: SARA Piperacillin Sod/Tazobactam (Sod 4.5 gm/ Sodium Chloride) 100 mls @ 200 mls/hr IV NOW ONE Stop: 01/05/23 09:35 Last Infusion: 01/05/23 10:47 Dose: 0 mls/hr Documented By: Admin: 01/05/23 10:11 Dose: 200 mls/hr Documented By: SARA Sodium Chloride (Normal Saline 0.9%) 1,000 mls @ 1,000 mls/hr IV BOLUS ONE Stop: 01/05/23 11:10 Last Infusion: 01/05/23 11:16 Dose: 0 mls/hr Documented By: Admin: 01/05/23 10:12 Dose: 1,000 mls/hr Documented By: SARA Sodium Chloride (Normal Saline 0.9%) 1,000 mls @ 1,000 mls/hr IV BOLUS ONE Stop: 01/05/23 12:06 Last Infusion: 01/05/23 13:31 Dose: 0 mls/hr Documented By: Admin: 01/05/23 11:25 Dose: 1,000 mls/hr Documented By: SARA Sodium Chloride (Normal Saline 0.9%) 1,000 mls @ 150 mls/hr IV CONT EUGENE Last Infusion: 01/05/23 15:34 Dose: 150 mls/hr Documented By: Admin: 01/05/23 13:32 Dose: 150 mls/hr Documented By: SOPHIE Ketorolac Tromethamine (Ketorolac 30 Mg/Ml Vial) 15 mg IV NOW ONE Stop: 01/05/23 09:38 Last Admin: 01/05/23 10:06 Dose: 15 mg Documented By: SARA Vital Signs Vital signs: Vital Signs - 8 hr 01/05/23 11:01 01/05/23 11:18 01/05/23 11:18 Pulse Rate 82 80 Respiratory Rate 17 Blood Pressure 75/39 L 86/48 L Pulse Oximetry 96 94 Oxygen Delivery Method Room Air 01/05/23 11:20 01/05/23 11:20 01/05/23 11:30 Pulse Rate 79 Respiratory Rate 18 Blood Pressure 88/48 L 89/50 L Pulse Oximetry 95 Oxygen Delivery Method 01/05/23 11:30 01/05/23 11:40 01/05/23 11:40 Pulse Rate 79 80 Respiratory Rate 13 13 Blood Pressure 102/55 L Pulse Oximetry 94 93 Oxygen Delivery Method 01/05/23 11:50 01/05/23 11:50 01/05/23 12:00 Pulse Rate 81 Respiratory Rate 15 Blood Pressure 101/51 L 108/58 L Pulse Oximetry 96 Oxygen Delivery Method 01/05/23 12:00 01/05/23 12:10 01/05/23 12:10 Pulse Rate 81 80 Respiratory Rate 24 14 Blood Pressure 114/56 L Pulse Oximetry 97 97 Oxygen Delivery Method 01/05/23 12:20 01/05/23 12:20 01/05/23 12:30 Pulse Rate 75 Respiratory Rate 12 Blood Pressure 106/53 L 140/62 Pulse Oximetry 97 Oxygen Delivery Method 01/05/23 12:30 01/05/23 12:40 01/05/23 12:40 Pulse Rate 82 74 Respiratory Rate 15 14 Blood Pressure 105/54 L Pulse Oximetry 98 97 Oxygen Delivery Method 01/05/23 12:50 01/05/23 12:50 01/05/23 13:00 Pulse Rate 77 Respiratory Rate 18 Blood Pressure 126/58 L 114/56 L Pulse Oximetry 95 Oxygen Delivery Method 01/05/23 13:00 01/05/23 13:10 01/05/23 13:10 Pulse Rate 74 73 Respiratory Rate 19 21 Blood Pressure 104/51 L Pulse Oximetry 97 97 Oxygen Delivery Method 01/05/23 13:20 01/05/23 13:20 01/05/23 13:30 Pulse Rate 75 Respiratory Rate 24 Blood Pressure 110/55 L 108/56 L Pulse Oximetry 99 Oxygen Delivery Method 01/05/23 13:30 01/05/23 13:40 01/05/23 13:40 Pulse Rate 72 72 Respiratory Rate 14 18 Blood Pressure 109/58 L Pulse Oximetry 98 98 Oxygen Delivery Method 01/05/23 13:50 01/05/23 13:50 01/05/23 14:00 Pulse Rate 72 Respiratory Rate 17 Blood Pressure 119/58 L 134/67 Pulse Oximetry 98 Oxygen Delivery Method 01/05/23 14:00 01/05/23 14:10 01/05/23 14:10 Pulse Rate 73 72 Respiratory Rate 16 Blood Pressure 112/58 L Pulse Oximetry 98 99 Oxygen Delivery Method 01/05/23 14:20 01/05/23 14:20 01/05/23 14:30 Pulse Rate 71 Respiratory Rate 13 Blood Pressure 115/59 L 117/60 Pulse Oximetry 99 Oxygen Delivery Method 01/05/23 14:30 01/05/23 14:40 01/05/23 14:40 Pulse Rate 71 73 Respiratory Rate 13 13 Blood Pressure 133/63 Pulse Oximetry 98 99 Oxygen Delivery Method 01/05/23 14:50 01/05/23 14:50 01/05/23 15:00 Pulse Rate 72 Respiratory Rate 11 L Blood Pressure 125/59 L 135/63 Pulse Oximetry 100 Oxygen Delivery Method 01/05/23 15:00 01/05/23 15:10 01/05/23 15:10 Pulse Rate 73 73 Respiratory Rate 12 Blood Pressure 132/61 Pulse Oximetry 99 99 Oxygen Delivery Method 01/05/23 15:20 01/05/23 15:20 01/05/23 15:30 Pulse Rate 70 Respiratory Rate 19 Blood Pressure 129/62 134/62 Pulse Oximetry 99 Oxygen Delivery Method 01/05/23 15:30 Pulse Rate 72 Respiratory Rate 16 Blood Pressure Pulse Oximetry 99 Oxygen Delivery Method MDM - Abdominal Pain Lab Data 01/05/23 09:35 01/05/23 09:35 Labs: Lab Results 01/05/23 01/05/23 01/05/23 Range/Units 09:35 09:35 09:35 WBC 11.4 H (4.5-11.0) X10^3/uL RBC 4.16 L (4.5-5.9) X10^6/uL Hgb 9.2 L (13.5-17.5) g/dL Hct 29.8 L (41-53) % MCV 71.6 L (80-100) fL MCH 22.1 L (26-34) PG MCHC 30.9 (30-36) % RDW 16.2 H (11.6-14.8) % Plt Count 508 H (150-400) X10^3/uL Neut % (Auto) 69.1 (50-75) % Lymph % (Auto) 19.3 L (25-40) % Fountain % (Auto) 8.9 (3-14) % Eos % (Auto) 2.1 (2-4) % Baso % (Auto) 0.6 (0-2) % Neut # (Auto) 7900 H (0206-0504) /uL Lymph # (Auto) 2200 (4350-7198) /uL Fountain # (Auto) 1000 H (0-900) /uL Eos # (Auto) 200 (0-450) /uL Baso # (Auto) 100 (0-100) /uL PT 13.2 H (10.1-12.7) SECONDS INR 1.2 (0.9-1.3) APTT (26-36) SECONDS Sodium 138 (137-145) mmol/L Potassium 3.6 (3.4-5.1) mmol/L Chloride 98 (98-107) mmol/L Carbon Dioxide 25 (22-32) mmol/L BUN 15 (9-20) mg/dL Creatinine 0.69 (0.66-1.25) mg/dL Estimated GFR > 60 (>60) mL/min BUN/Creatinine Ratio 21.7 (6-22) Glucose 167 H (80-110) mg/dL Lactate (0.7-2.1) mmol/L Calcium 8.9 (8.4-10.2) mg/dL Total Bilirubin 0.4 (0.2-1.3) mg/dL AST 32 (17-59) IU/L ALT 22 (<50) IU/L Alkaline Phosphatase 171 H (38-126) U/L Total Protein 7.9 (6.3-8.2) g/dL Albumin 4.2 (3.5-5.0) g/dL Globulin 3.7 (1.7-4.1) g/dL Albumin/Globulin Ratio 1.1 (1.0-2.8) Procalcitonin 0.04 (<0.5) ng/mL Urine Color Urine Appearance Urine pH (4.5-8.0) Ur Specific [place] (1.000-1.035) Urine Protein (Negative) Urine Glucose (UA) (Negative) g/dL Urine Ketones (NEGATIVE) Urine Occult Blood (Negative) Urine Nitrate (Negative) Urine Bilirubin (NEGATIVE) Urine Urobilinogen (0.2) E.U./dL Ur Leukocyte Esterase (NEGATIVE) Urine RBC (0-5/HPF) Urine WBC (0-5/HPF) Ur Squamous Epith Cells (0-5/HPF) Urine Bacteria (None) Ur Culture Indicated? Ketones (<0.27) mmol/L 01/05/23 01/05/23 01/05/23 Range/Units 09:35 09:35 09:35 WBC (4.5-11.0) X10^3/uL RBC (4.5-5.9) X10^6/uL Hgb (13.5-17.5) g/dL Hct (41-53) % MCV (80-100) fL MCH (26-34) PG MCHC (30-36) % RDW (11.6-14.8) % Plt Count (150-400) X10^3/uL Neut % (Auto) (50-75) % Lymph % (Auto) (25-40) % [place] % (Auto) (3-14) % Eos % (Auto) (2-4) % Baso % (Auto) (0-2) % Neut # (Auto) (0850-5201) /uL Lymph # (Auto) (8962-1788) /uL Fountain # (Auto) (0-900) /uL Eos # (Auto) (0-450) /uL Baso # (Auto) (0-100) /uL PT (10.1-12.7) SECONDS INR (0.9-1.3) APTT 28 (26-36) SECONDS Sodium (137-145) mmol/L Potassium (3.4-5.1) mmol/L Chloride (98-107) mmol/L Carbon Dioxide (22-32) mmol/L BUN (9-20) mg/dL Creatinine (0.66-1.25) mg/dL Estimated GFR (>60) mL/min BUN/Creatinine Ratio (6-22) Glucose (80-110) mg/dL Lactate 8.0 H* (0.7-2.1) mmol/L Calcium (8.4-10.2) mg/dL Total Bilirubin (0.2-1.3) mg/dL AST (17-59) IU/L ALT (<50) IU/L Alkaline Phosphatase (38-126) U/L Total Protein (6.3-8.2) g/dL Albumin (3.5-5.0) g/dL Globulin (1.7-4.1) g/dL Albumin/Globulin Ratio (1.0-2.8) Procalcitonin (<0.5) ng/mL Urine Color Urine Appearance Urine pH (4.5-8.0) Ur Specific [place] (1.000-1.035) Urine Protein (Negative) Urine Glucose (UA) (Negative) g/dL Urine Ketones (NEGATIVE) Urine Occult Blood (Negative) Urine Nitrate (Negative) Urine Bilirubin (NEGATIVE) Urine Urobilinogen (0.2) E.U./dL Ur Leukocyte Esterase (NEGATIVE) Urine RBC (0-5/HPF) Urine WBC (0-5/HPF) Ur Squamous Epith Cells (0-5/HPF) Urine Bacteria (None) Ur Culture Indicated? Ketones 0.17 (<0.27) mmol/L 01/05/23 01/05/23 01/05/23 Range/Units 10:41 11:23 12:05 WBC (4.5-11.0) X10^3/uL RBC (4.5-5.9) X10^6/uL Hgb (13.5-17.5) g/dL Hct (41-53) % MCV (80-100) fL MCH (26-34) PG MCHC (30-36) % RDW (11.6-14.8) % Plt Count (150-400) X10^3/uL Neut % (Auto) (50-75) % Lymph % (Auto) (25-40) % [place] % (Auto) (3-14) % Eos % (Auto) (2-4) % Baso % (Auto) (0-2) % Neut # (Auto) (4884-9605) /uL Lymph # (Auto) (9100-4995) /uL [place]ountain # (Auto) (0-900) /uL Eos # (Auto) (0-450) /uL Baso # (Auto) (0-100) /uL PT (10.1-12.7) SECONDS INR (0.9-1.3) APTT (26-36) SECONDS Sodium (137-145) mmol/L Potassium (3.4-5.1) mmol/L Chloride (98-107) mmol/L Carbon Dioxide (22-32) mmol/L BUN (9-20) mg/dL Creatinine (0.66-1.25) mg/dL Estimated GFR (>60) mL/min BUN/Creatinine Ratio (6-22) Glucose (80-110) mg/dL Lactate 3.9 H 2.5 H (0.7-2.1) mmol/L Calcium (8.4-10.2) mg/dL Total Bilirubin (0.2-1.3) mg/dL AST (17-59) IU/L ALT (<50) IU/L Alkaline Phosphatase (38-126) U/L Total Protein (6.3-8.2) g/dL Albumin (3.5-5.0) g/dL Globulin (1.7-4.1) g/dL Albumin/Globulin Ratio (1.0-2.8) Procalcitonin (<0.5) ng/mL Urine Color [place] Urine Appearance Sl cloudy Urine pH 8.5 H (4.5-8.0) Ur Specific [place] 1.010 (1.000-1.035) Urine Protein 2+ H (Negative) Urine Glucose (UA) Negative (Negative) g/dL Urine Ketones Negative (NEGATIVE) Urine Occult Blood 3+ H (Negative) Urine Nitrate Negative (Negative) Urine Bilirubin Negative (NEGATIVE) Urine Urobilinogen 1.0 (0.2) E.U./dL Ur Leukocyte Esterase 3+ H (NEGATIVE) Urine RBC 10-30/hpf H (0-5/HPF) Urine WBC 10-30/hpf H (0-5/HPF) Ur Squamous Epith Cells 1-5 /hpf (0-5/HPF) Urine Bacteria Few (2-10) H (None) Ur Culture Indicated? Specimen cultured Ketones (<0.27) mmol/L 01/05/23 Range/Units 13:50 WBC (4.5-11.0) X10^3/uL RBC (4.5-5.9) X10^6/uL Hgb (13.5-17.5) g/dL Hct (41-53) % MCV (80-100) fL MCH (26-34) PG MCHC (30-36) % RDW (11.6-14.8) % Plt Count (150-400) X10^3/uL Neut % (Auto) (50-75) % Lymph % (Auto) (25-40) % [place] % (Auto) (3-14) % Eos % (Auto) (2-4) % Baso % (Auto) (0-2) % Neut # (Auto) (1693-3839) /uL Lymph # (Auto) (4499-9037) /uL [place] # (Auto) (0-900) /uL Eos # (Auto) (0-450) /uL Baso # (Auto) (0-100) /uL PT (10.1-12.7) SECONDS INR (0.9-1.3) APTT (26-36) SECONDS Sodium (137-145) mmol/L Potassium (3.4-5.1) mmol/L Chloride (98-107) mmol/L Carbon Dioxide (22-32) mmol/L BUN (9-20) mg/dL Creatinine (0.66-1.25) mg/dL Estimated GFR (>60) mL/min BUN/Creatinine Ratio (6-22) Glucose (80-110) mg/dL Lactate 1.0 (0.7-2.1) mmol/L Calcium (8.4-10.2) mg/dL Total Bilirubin (0.2-1.3) mg/dL AST (17-59) IU/L ALT (<50) IU/L Alkaline Phosphatase (38-126) U/L Total Protein (6.3-8.2) g/dL Albumin (3.5-5.0) g/dL Globulin (1.7-4.1) g/dL Albumin/Globulin Ratio (1.0-2.8) Procalcitonin (<0.5) ng/mL Urine Color Urine Appearance Urine pH (4.5-8.0) Ur Specific [place] (1.000-1.035) Urine Protein (Negative) Urine Glucose (UA) (Negative) g/dL Urine Ketones (NEGATIVE) Urine Occult Blood (Negative) Urine Nitrate (Negative) Urine Bilirubin (NEGATIVE) Urine Urobilinogen (0.2) E.U./dL Ur Leukocyte Esterase (NEGATIVE) Urine RBC (0-5/HPF) Urine WBC (0-5/HPF) Ur Squamous Epith Cells (0-5/HPF) Urine Bacteria (None) Ur Culture Indicated? Ketones (<0.27) mmol/L Point of care testing: Urine Dip Bedside Urine Glucose Negative Bedside Urine Bilirubin - Negative Bedside Urine Ketone - Negative Urine Specific [place] 1.000 Bedside Urine Occult Blood +++ Bedside Urine pH 8.5 Bedside Urine Protein + 30 Bedside Urine Urobilinogen - Negative Bedside Urine Nitrite - Negative Bedside Urine Leukocytes +++ [address] scan - abdomen/pelvis: Radiologist's Impression: Ray Foster??67??M??1955 ? Allergy/Adv: amitriptyline, pollen extracts, codeine (More??) Close Abdomen/Pelvis CT (Signed) Clif Bermeo - 01/05/23 Chest/Abdomen/Pelvis CT (Signed) Luis Felipe Key - 12/01/22 KUB X-Ray (Signed) Gordon Agudelo - 12/01/22 Abdomen X-Ray (Signed) Jagruti Landeros - 12/01/22 Abdomen/Pelvis CT (Signed) Saravanan Doe - 11/28/22 Abdomen/Pelvis CT (Signed) Nolan Kilgore - 07/09/22 Abdomen/Pelvis CT (Signed) Artemio Vaz - 07/07/22 Shoulder X-Ray (Signed) Isa Guevara - 04/09/22 Foot X-Ray (Signed) Gary Kirkpatrick - 10/13/[address] (Signed) Artemio Vaz - 09/25/[address] (Signed) Artemio Vaz - 09/25/[address] (Signed) Lencho Brock - 07/04/[address] (Signed) Gary Kirkpatrick - 07/02/21 Chest X-Ray (Signed) Gary Kirkpatrick - 07/02/21 Chest X-Ray (Addendum) Blanca Bermeo - 06/03/21 Chest X-Ray (Signed) Gary Kirkpatrick - 04/12/21 Lower Extremity MRI (Signed) Fidel Mcgrath - 04/01/21 Abdomen/Pelvis CT (Signed) Bryan Her - 03/08/21 Chest X-Ray (Signed) Bryan Her - 03/08/21 Head/Neck CTA (Signed) Artemio Vaz - 12/20/[address] (Signed) ElvieKimberli cabellofilipe - 12/20/20 Angiography MRI (Signed) Gary Kirkpatrick - 11/22/[address] (Signed) Dasha Reed - 10/22/20 Abdomen Ultrasound (Signed) Blanca Bermeo - 10/22/20 Chest X-Ray (Signed) Bryan Her - 10/12/[address] (Signed) [place],Bryan - 09/28/[address] (Signed) BriannaNormDasha - 09/08/20 Chest X-Ray (Signed) BriannaDasha - 09/08/[address] (Signed) Dasha Reed - 09/08/20 Chest X-Ray (Signed) Arian Chacon - 11/08/19 Knee X-Ray (Signed) Bryan Her - 09/10/19 Ankle X-Ray (Signed) Nam Sapp - 07/25/19 Duplex Scan Lower Extremity Artery (Signed) Harish Kumar - 04/27/19 Chest X-Ray (Signed) Lencho Brock - 03/07/[address] (Signed) Jose Russo - 03/04/19 Telemetry Strips 03/02/19 Telemetry Strips 03/02/19 Foot X-Ray (Signed) Dasha Reed - 03/02/19 Chest X-Ray (Signed) Norm Reedence - 03/02/[address] (Signed) Artemio Vaz - 02/20/[address] (Signed) Bryan Her - 02/20/19 Chest X-Ray (Signed) Isa Guevara - 01/25/19 Tibia/Fibula X-Ray (Signed) Fritz Infante - 12/05/18 Cervical Spine MRI (Signed) Dasha Reed - 11/14/18 Foot X-Ray (Signed) Harish Kumar - 11/09/18 Modified Barium Swallow (Signed) Harish Kumar - 10/24/18 Duplex Scan Lower Extremity Artery (Signed) Harish Kumar - 08/14/18 Aorta w/Runoff CTA (Signed) Harish Kumar - 08/14/18 Telemetry Strips 08/13/[address] (Signed) Jagruti Landeros - 08/13/18 Foot X-Ray (Signed) LanderosJagruti - 08/13/18 Chest X-Ray (Signed) LetiJagruti - 08/13/18 Tibia/Fibula X-Ray (Signed) AlcidesFidel - 06/14/18 Knee X-Ray (Signed) AlcidesFidel - 06/14/18 Foot X-Ray (Signed) AlcidesFidel - 06/14/18 Foot X-Ray (Cancelled) 06/14/18 Ankle X-Ray (Signed) AlcidesFidel - 06/14/18 Chest X-Ray (Signed) ElvieBlanca - 03/18/18 Telemetry Strips 03/18/18 Launch?Image [address] [address] [address] Scan Report Signed Patient: Ray Foster MR#: [id number] : 1955 Acct:[id number] Age/Sex: 67 / M Date of Service: 01/05/23 Loc: ED Accession Number: [id number] ?? Procedure: CT kidney ureter bladder (KUB) Ordering Provider: Lara Acharya D.O. PROCEDURE:? CT KIDNEY URETER BLADDER (KUB) ? INDICATIONS:? ureteral stent, feels like stone blocking catheter, is drain ? TECHNIQUE:? Axial sections were acquired from the lung bases to the pubic symphysis.? Coronal and sagittal reformats were performed.? For radiation dose reduction, the following was used: ?automated exposure control, adjustment of mA and/or kV according to patient size.? ? COMPARISON:? [facility], CT, CT CHEST ABD PEL WO CON, 12/01/2022, 7:47.? [facility], CR, XR KUB, 12/01/2022, 10:41.? [facility], CR, XR ABDOMEN 1V, 12/01/2022, 11:46. ? FINDINGS:? Image quality:? Excellent.? ? Lung bases:? Bibasilar scars and atelectasis.? Small hiatal hernia.? Heart:? Normal size.? Severe coronary artery calcification. ? URINARY: Right Kidney:? There is a ureteral stent in expected position.? Small right renal calculi are present in the right renal collecting system.? Mild right hydronephrosis.? Right Ureter:? Ureter stent is noted.? ? Left Kidney: ? No stones or hydronephrosis.? Calcific foci in renal hilum are likely vascular in nature. Left Ureter:? No hydroureter.? ? Bladder:? There are small calcified stones in the gravity dependent bladder lumen.? Mild bladder wall thickening. ? ABDOMEN: Liver:? Unremarkable.? ? Gallbladder:? Unremarkable.? ? Biliary ducts:? Unremarkable.? ? Pancreas:? Unremarkable.? ? Spleen:? Unremarkable.? ? Adrenal Glands:? Unremarkable.? ? ? Stomach and Bowel:? Stomach, small bowel loops, and colon are unremarkable.? There is a large amount of stool in colon.? There is thickening of rectum. Peritoneum:? No abnormal intraperitoneal fluid.? No free air.? ? Ventral Wall: ? No hernia.? Abdominal Nodes:? No enlarged retroperitoneal or mesenteric lymph nodes.? Vessels:? Aorta and inferior vena cava are normal in size.? Severe atherosclerosis. ? PELVIS: Pelvic Organs:? Unremarkable.? ? Pelvic Nodes: Unremarkable. Miscellaneous: No inguinal hernias are seen. ? ? ? Bones:? Severe chronic compression fracture of L1, unchanged. ? IMPRESSION:? ? 1.? There is a right ureteral stent which is in expected position.? There is mild right hydronephrosis.? The finding could be secondary to stent obstruction.? Multiple small renal calculi are present in the right renal collecting system. ? 2. There are stones within the urinary bladder. Mild bladder wall thickening suggesting cystitis. ? 3. Thickening of rectum suggesting proctitis. ? 4. A large amount of stool in colon.? ? 5. Severe chronic compression fracture of L1.? ? Dictated by: Clif Bermeo M.D. on 01/05/2023 at 11:11 ? ? Approved by: Clif Bermeo M.D. on 01/05/2023 at 11:19??? MDM Narrative Medical decision making narrative: 67-year-old male with recent ureteral stent UTI who presents with complaint of abdominal pain and feels like his catheter is blocked and not draining patient is significantly uncomfortable. No reported fevers, no vomiting, no back or flank pain. Patient states it feels like there is a stone stuck in the catheter. Patient's lactate is 8, CBC, CMP profile are otherwise appropriate. Urinalysis shows changes consistent with infection. Lactate was repeated. CT KUB was obtained as patient has ureteral stent. Right sense in expected position mild right hydro, could be secondary to obstruction small renal calculi in the right renal collecting system. Stones within the bladder and mild wall thickening suggesting cystitis some thickening of the rectum suggesting proctitis, large amount of stool in the colon with severe chronic compression fracture at L1. \patient received fluids, doses Zosyn based on patient's most recent urine culture, catheter was removed as was not flushing. Patient feels significantly better after this occurred. He had 120 mL in his bladder so will continue to monitor and see if he can urinate regularly if not we will replace. Patient feels significantly better after catheter is removed. His blood pressure did drop unsure if this is secondary to relief of patient's discomfort and he would received 1 mg Dilaudid shortly before. He has had low blood pressures in the past. He states that he feels much better and is alert and appropriate despite pressure in the 80 range. Patient was given some additional fluids, continued to be monitored we will hold off on pressors. Spoke with Dr. Rosenbaum, would recommend replacing catheter at this time. Agrees with plan for observation we will consult as needed. Discussed no clear obstructive process at this time lactate is trending down words but was quite elevated. Does have changes in urine consistent with UTI. He does note patient needs to have his ureteral stent removed it sometimes does not have to be during this hospitalization but in the next week or 2. Patient is currently politely refusing Guzman catheter. On bladder scan he has 240 mL he did urinate immediately after catheter was removed but has not since. He does not feel the need to urinate. States that the catheter is a new or development and he has not 1 1 chronically for more than a month or so. We did discuss that Dr. Rosenbaum is concerned that he may develop retention and could be quite uncomfortable with him stuck waiting for Dr. Rosenbaum complaints 1 if difficult overnight. Patient expresses his understanding he states if he develops retention he would allow for catheter to be placed. Spoke with Dr. Nogueira, hospitalist: Discussed would like he patient for UTI potential sepsis patient had pretty significant lactic acidosis which has improved with fluids, he had some hypotension although discussed he did receive Dilaudid just before his catheter was removed and then had significant relief his pain was the catheter was out which may have contributed. I am concerned patient has a mild leukocytosis blood pressure has been improving, he feels much better after Guzman catheter is out but would like to keep for observation. Dr. Morrison saw patient in the department notes lactate have resolved. He feels patient is stable and appropriate for discharge does recommend likely cefdinir. Discussed with patient he does not wish to have his catheter replaced, he was able to urinate again had about 100 mL out, bladder scan only has 140 in his bladder after this. Discussed with patient had very much like to replace it he very politely refuses and understands he may have to return emergently if he develops retention. Updated primary care team, Eli Montanez findings from today, treatment, ect. Discharge Plan Departure Patient Disposition: Home Clinical Impression: Acute UTI, Complication of Guzman catheter, Retained ureteral stent Activity Restrictions/Additional Instructions: Follow up with urology, Dr. Rosenbaum he would like to see you to remove your ureteral stent. He does not feel this has to be done emergently today but should be seen in the next week. Please call today or tomorrow to set up an appointment. Your urine does show signs consistent with infection, based on your old urine cultures please take cefdinir as prescribed until gone. Prescription sent to [facility] in [place] and a copy provided. As discussed I would recommend having your catheter replaced today, if you develop urinary retention you could become quite uncomfortable or worsened your risk of infection. Please return for fevers, new or worsening abdominal back or flank pain, persistent vomiting, inability urinate, black or bloody stools or other new or concerning changes. Prescriptions: New cefdinir 300 mg capsule 300 mg PO BID Qty: 20 0RF cefdinir 300 mg capsule 300 mg PO BID Qty: 20 0RF No Action atorvastatin 80 MG tablet 80 mg PO BEDTIME Qty: 0 clopidogrel 75 MG tablet 75 mg PO DAILY Qty: 0 levothyroxine 50 MCG tablet 50 mcg PO QPM Qty: 0 acetaminophen 325 MG tablet 1,000 mg PO TID PRN (Reason: pain/fever) Qty: 0 omeprazole 20 MG capsule,delayed release(DR/EC) 40 mg PO DAILY Qty: 0 tamsulosin 0.4 mg capsule 0.4 mg PO BEDTIME sertraline 50 mg tablet 50 mg PO DAILY Xtampza ER 18 mg cap,sprinkl,ER12hr(DONT CRUSH) 18 mg PO BID alum-mag hydroxide-simeth 200-200-20 mg/5 mL Suspension 10 ml PO DAILY PRN (Reason: Heartburn) Rx Instructions: 10-20mls lubiprostone [Amitiza] 24 mcg capsule 24 mcg PO BID aspirin 81 mg tablet,delayed release (DR/EC) 81 mg PO DAILY naloxone 0.4 mg/mL solution 0.4 mg IM Q15-20M PRN (Reason: Opioid Overdose) Qty: 0 0RF bisacodyl 10 MG suppository 10 mg TN DAILY PRN (Reason: Constipation) Qty: 0 0RF polyethylene glycol 3350 17 gram/dose powder 17 g PO DAILY PRN (Reason: Constipation) Qty: 0 0RF oxycodone 5 mg tablet 20 mg PO Q4H PRN (Reason: pain) 7 Days Qty: 40 0RF Rx Instructions: hold if too sedated lorazepam [Ativan] 1 mg tablet 1 mg PO TID PRN (Reason: nausea and vomiting) Qty: 10 0RF ketorolac 10 mg tablet 10 mg PO Q6H PRN (Reason: pain) Qty: 14 0RF Rx Instructions: for 5 days mirtazapine 15 mg Tablet 15 mg PO BEDTIME fluticasone propionate 50 mcg/actuation Allgood,Suspension 1 spray INTRANASAL BID cholecalciferol (vitamin D3) 1,000 unit Capsule 2,000 unit PO DAILY hydroxyzine pamoate 25 mg Capsule 25 - 50 mg PO Q6H PRN (Reason: pain/spasms) ondansetron 4 mg Tablet,Disintegrating 4 - 8 mg PO Q4H PRN (Reason: Nausea) Patient Comments: 1 - 2 prn nausea Glucagon Emergency Kit (human) 1 mg Recon Soln 1 mg IM PRN MDD ` PRN (Reason: blood glucose <60) duloxetine 60 mg capsule,delayed release(DR/EC) 60 mg PO BEDTIME nystatin 100,000 unit/gram Cream 1 applic TOPICAL BID PRN (Reason: yeast) furosemide 80 mg Tablet 80 mg PO QAM lorazepam 1 mg Tablet 1 mg PO BEDTIME PRN (Reason: Insomnia) docusate sodium 100 mg Tablet 200 mg PO TID bisacodyl 5 mg Tablet 5 - 10 mg PO DAILY PRN (Reason: Constipation) propylene glycol-glycerin 1-0.3 % Drops 1 drp OPHTHALMIC (EYE) Q1H PRN (Reason: Dry Eyes) insulin glargine [Lantus Solostar U-100 Insulin] 100 unit/mL (3 mL) Insulin Pen 17 unit SUBCUT BEDTIME sennosides [senna] 8.6 mg Tablet 17.2 mg PO BID metoclopramide HCl 5 mg/5 mL Solution 10 mg PO QAC Rx Instructions: before meals for chronic nausea magnesium hydroxide [Milk of Magnesia] 400 mg/5 mL Suspension 30 ml PO DAILY PRN (Reason: Constipation) oxymetazoline 0.05 % Allgood,Non-Aerosol 2 spray INTRANASAL Q12H PRN (Reason: nosebleed) insulin aspart U-100 [Novolog FlexPen U-100 Insulin] 100 unit/mL insulin pen See Rx Instructions .ROUTE .COMPLEX Rx Instructions: Per [facility] med list, insulin instructions are per Ray who directs his own dosing of insulin based on what he is about to consume w/ meals Referrals: Modesta Rosenbaum MD [Physician] - Eli Montanez ARNP [Primary Care Provider] - Stand Alone Forms: Patient Portal/API
[2023-01-05 09:58] LABS: Add Manual Diff / Slide Review NO; Basophils Absolute Auto 100 /uL (0-100); Basophils Percent Auto 0.6 % (0-2); Eosinophils Absolute Auto 200 /uL (0-450); Eosinophils Percent Auto 2.1 % (2-4); Hematocrit 29.8 % (41-53); Hemoglobin 9.2 g/dL (13.5-17.5); Lymphocytes Absolute Auto 2200 /uL (1100-4500); Lymphocytes Percent Auto 19.3 % (25-40); Mean Corpuscular HGB Conc 30.9 % (30-36); Mean Corpuscular Hemoglobin 22.1 PG (26-34); Mean Corpuscular Volume 71.6 fL (80-100); Monocytes Absolute Auto 1000 /uL (0-900); Monocytes Percent Auto 8.9 % (3-14); Neutrophils Absolute Auto 7900 /uL (1500-7000); Neutrophils Percent Auto 69.1 % (50-75); Platelet Count 508 X10^3/uL (150-400); Red Blood Cell Count 4.16 X10^6/uL (4.5-5.9); Red Cell Distribution Width 16.2 % (11.6-14.8); White Blood Cell Count 11.4 X10^3/uL (4.5-11.0)
[2023-01-05 10:05] LABS: INR 1.2 (0.9-1.3); Prothrombin Time 13.2 SECONDS (10.1-12.7)
[2023-01-05] MEDS: KETOROLAC 30 MG/ML VIAL 15 MG IV (10:06)
[2023-01-05] MEDS: SODIUM CHLORIDE 0.9% 1,000 ML 1000 ML IV ×3 (10:07→11:25)
[2023-01-05 10:10] LABS: Alanine Aminotransferase 22 IU/L (<50); Albumin 4.2 g/dL (3.5-5.0); Albumin Globulin Ratio 1.1 (1.0-2.8); Alkaline Phosphatase 171 U/L (38-126); Aspartate Aminotransferase 32 IU/L (17-59); BUN Creatinine Ratio 21.7 (6-22); Bilirubin Total 0.4 mg/dL (0.2-1.3); Blood Urea Nitrogen 15 mg/dL (9-20); Calcium 8.9 mg/dL (8.4-10.2); Carbon Dioxide 25 mmol/L (22-32); Chloride 98 mmol/L (98-107); Estimated Glomerular Filt Rate > 60 mL/min (>60); Globulin 3.7 g/dL (1.7-4.1); Glucose 167 mg/dL (80-110); HEMOLYSIS < 15 (0-50); Potassium 3.6 mmol/L (3.4-5.1); Sodium 138 mmol/L (137-145); Total Protein 7.9 g/dL (6.3-8.2)
--- NOTE | 2023-01-05 10:10 | PC.NURSE ---
RELIEF MATE NOTE: changed pt brief and repositioned with 3 pillows
[2023-01-05] MEDS: PIPERACILLIN/TAZO 4.5 GM in SODIUM CHLORIDE 0.9% 100 ML IV (10:11)
[2023-01-05 10:14] LABS: PTT Partial Thromboplastin Tim 28 SECONDS (26-36)
[2023-01-05] MEDS: HYDROMORPHONE 1 MG INJ IV (10:23)
[2023-01-05 10:26] LABS: Procalcitonin 0.04 ng/mL (<0.5)
[2023-01-05 10:41] LABS: Ketones (Beta-Hydroxybutyrate) 0.17 mmol/L (<0.27)
--- NOTE | 2023-01-05 10:42 | PC.NURSE ---
Attempted to flush denson met lots of resistance. Ok per Dr Acharya to remove and replace catheter. Patient able to void 120ml of urine on own and states significant improvement with denson out. Per Dr Acharya ok to leave denson out at this time. If retention reoccurs patient will have another catheter placed.
[2023-01-05 10:47] LABS: Appearance Urine UA SL CLOUDY; Bilirubin Urine UA NEGATIVE (NEGATIVE); Color Urine UA ORANGE; Glucose Urine UA NEGATIVE (Negative); Ketones Urine UA NEGATIVE (NEGATIVE); Leukocyte Esterase Urine UA 3+ (NEGATIVE); Nitrite Urine UA NEGATIVE (Negative); Occult Blood Urine UA 3+ (Negative); Protein Urine UA 2+ (Negative); pH Urine UA 8.5 (4.5-8.0)
[2023-01-05 10:55] LABS: Bacteria Urine Few (2-10); Culture Indicated Urine Specimen Cultured; RBC Urine 10-30/HPF (0-5/HPF); Squamous Epithelial Cell Urine 1-5 /HPF (0-5/HPF); WBC Urine 10-30/HPF (0-5/HPF)
--- NOTE | 2023-01-05 11:14 | PC.NURSE ---
Patients blood pressures and heart rate trending down. Patient's pain managed and able to rest. Dr Acharya aware of patients blood pressure trends. Will continue to monitor blood pressures and continue IVF
[2023-01-05 11:47] LABS: Lactate (Lactic Acid) 3.9 mmol/L (0.7-2.1)
[2023-01-05 11:54] LABS: Reflexed Lactate in 2 Hours Y
[2023-01-05 12:43] LABS: Lactate 2HR (Lactic Acid Rflx) 2.5 mmol/L (0.7-2.1)
[2023-01-05 13:26] LABS: Reflexed Lactate in 2 Hours Y
[2023-01-05] MEDS: SODIUM CHLORIDE 0.9% 1,000 ML 150 ML IV (13:32)
--- NOTE | 2023-01-05 15:09 | PC.NURSE ---
Pt has been able to void x2 after denson removed, has refused to have cath replaced, PVR of 140cc. Will return to [facility].
--- NOTE | 2023-01-05 16:29 | P.CONS_ITS ---
History of Present Illness Consult details Date Patient Seen: 01/05/23 Time Patient Seen: 14:00 Chief complaint: Abd. Pain Reason for consult: possible admission Requesting provider: Lara Acharya Narrative: 67 M with PMH of cervical spinal injury, prior CVA, GERD, HTN, HLD, chronic denson, insulin dependent diabetes with recent UTI with stent placement for obstrctive uropathy approx 1 month ago who presented to the ER with abdominal pain. Abdominal pain was suprapubic and felt like a pressure. He denied lethargy , confusion, but did feel a bit of chills with the pain. He thought his catheter may be obstructed. He lives at [facility]. He was initially hypertensive on admission vitals. He was given pain medications, fluids, and denson catheter was changed. After pain medication blood pressure fell slightly but since markedly improved. Lactate was elevated but resolved with fluid administration. He currently denies complaints. Labs notable for mild leukocytosis, with normal cr and a positive UA. Patient denied complaints at the time of my evaluation. Meds Home Medications and Allergies Home Medications Medication Instructions Recorded Confirmed Type acetaminophen 325 mg tablet 1,000 mg PO TID PRN pain/fever ##0 06/29/17 12/01/22 History atorvastatin 80 mg tablet 80 mg PO BEDTIME ##0 06/29/17 12/01/22 History clopidogrel 75 mg tablet 75 mg PO DAILY ##0 06/29/17 12/01/22 History levothyroxine 50 mcg tablet 50 mcg PO QPM ##0 06/29/17 12/01/22 History omeprazole 20 mg capsule,delayed 40 mg PO DAILY ##0 06/29/17 12/01/22 History release insulin aspart U-100 100 unit/mL See Rx Instructions .Route .COMPLEX 11/25/17 12/01/22 History (3 mL) subcutaneous pen (Novolog FlexPen U-100 Insulin aspart) cholecalciferol (vitamin D3) 25 2,000 unit PO DAILY 08/13/18 12/01/22 History mcg (1,000 unit) capsule fluticasone propionate 50 1 spray intranasal BID 08/13/18 12/01/22 History mcg/actuation nasal spray,suspension hydroxyzine pamoate 25 mg capsule 25 - 50 mg PO Q6H PRN pain/spasms 08/13/18 12/01/22 History mirtazapine 15 mg tablet 15 mg PO BEDTIME 08/13/18 12/01/22 History ondansetron 4 mg disintegrating 4 - 8 mg PO Q4H PRN Nausea 08/13/18 12/01/22 History tablet duloxetine 60 mg capsule,delayed 60 mg PO BEDTIME 03/02/19 12/01/22 History release glucagon (human recombinant) 1 mg 1 mg IM PRN PRN blood glucose <60 03/02/19 12/01/22 History solution for injection (Glucagon Emergency Kit) nystatin 100,000 unit/gram topical 1 applic topical BID PRN yeast 03/02/19 12/01/22 History cream aluminum-mag hydroxide-simethicone 10 ml PO DAILY PRN Heartburn 07/04/21 12/01/22 History 200 mg-200 mg-20 mg/5 mL oral susp aspirin 81 mg tablet,delayed 81 mg PO DAILY 07/04/21 12/01/22 History release lubiprostone 24 mcg capsule 24 mcg PO BID 07/04/21 12/01/22 History (Amitiza) oxycodone myristate 18 mg capsule 18 mg PO BID 07/04/21 12/01/22 History sprinkle extended release 12hr(DON'T CRUSH) (Xtampza ER) sertraline 50 mg tablet 50 mg PO DAILY 07/04/21 12/01/22 History tamsulosin 0.4 mg capsule 0.4 mg PO BEDTIME 07/04/21 12/01/22 History bisacodyl 10 mg rectal suppository 10 mg [place] DAILY PRN Constipation #0 07/07/21 12/01/22 Rx ea naloxone 0.4 mg/mL injection 0.4 mg IM Q15-20M PRN Opioid 07/07/21 12/01/22 Rx solution Overdose #0 mL oxycodone 5 mg tablet 20 mg PO Q4H PRN pain 7 days #40 07/07/21 12/01/22 Rx tabs polyethylene glycol 3350 17 17 g PO DAILY PRN Constipation #0 07/07/21 12/01/22 Rx gram/dose oral powder grams lorazepam 1 mg tablet (Ativan) 1 mg PO TID PRN nausea and 07/09/22 12/01/22 Rx vomiting #10 tabs ketorolac 10 mg tablet 10 mg PO Q6H PRN pain #14 tabs 11/28/22 12/01/22 Rx bisacodyl 5 mg tablet 5 - 10 mg PO DAILY PRN Constipation 12/01/22 12/01/22 History docusate sodium 100 mg tablet 200 mg PO TID 12/01/22 12/01/22 History furosemide 80 mg tablet 80 mg PO QAM 12/01/22 12/01/22 History insulin glargine 100 unit/mL (3 17 unit SUBCUT BEDTIME 12/01/22 12/01/22 History mL) subcutaneous pen (Lantus Solostar U-100 Insulin) lorazepam 1 mg tablet 1 mg PO BEDTIME PRN Insomnia 12/01/22 12/01/22 History magnesium hydroxide 400 mg/5 mL 30 ml PO DAILY PRN Constipation 12/01/22 12/01/22 History oral suspension (Milk of Magnesia) metoclopramide HCl 5 mg/5 mL oral 10 mg PO QAC 12/01/22 12/01/22 History solution oxymetazoline 0.05 % nasal spray 2 spray intranasal Q12H PRN 12/01/22 12/01/22 History nosebleed propylene glycol 1 %-glycerin 0.3 1 drp ophthalmic (eye) Q1H PRN Dry 12/01/22 12/01/22 History % eye drops Eyes sennosides 8.6 mg tablet (senna) 17.2 mg PO BID 12/01/22 12/01/22 History cefdinir 300 mg capsule 300 mg PO BID #20 caps 01/05/23 Rx cefdinir 300 mg capsule 300 mg PO BID #20 caps 01/05/23 Rx Allergies Allergy/AdvReac Type Severity Reaction Status Date / Time amitriptyline Allergy Verified 12/01/22 07:38 pollen extracts Allergy Verified 12/01/22 07:38 codeine [CODEINE] AdvReac Unknown nausea Verified 12/01/22 07:38 Review of Systems Review of Systems Narrative: All other systems reviewed with the patient and are negative unless otherwise stated. Exam Vital Signs (past 8 hours): - 01/05/23 09:59 01/05/23 10:15 01/05/23 11:01 Temperature 99.5 F Pulse Rate 135 H 88 82 Respiratory Rate 20 Blood Pressure 156/68 H 128/66 75/39 L Pulse Oximetry 99 90 L 96 Oxygen Delivery Method Room Air Nasal Cannula Room Air 01/05/23 11:18 01/05/23 11:18 01/05/23 11:20 Temperature Pulse Rate 80 Respiratory Rate 17 Blood Pressure 86/48 L 88/48 L Pulse Oximetry 94 Oxygen Delivery Method 01/05/23 11:20 01/05/23 11:30 01/05/23 11:30 Temperature Pulse Rate 79 79 Respiratory Rate 18 13 Blood Pressure 89/50 L Pulse Oximetry 95 94 Oxygen Delivery Method 01/05/23 11:40 01/05/23 11:40 01/05/23 11:50 Temperature Pulse Rate 80 Respiratory Rate 13 Blood Pressure 102/55 L 101/51 L Pulse Oximetry 93 Oxygen Delivery Method 01/05/23 11:50 01/05/23 12:00 01/05/23 12:00 Temperature Pulse Rate 81 81 Respiratory Rate 15 24 Blood Pressure 108/58 L Pulse Oximetry 96 97 Oxygen Delivery Method 01/05/23 12:10 01/05/23 12:10 01/05/23 12:20 Temperature Pulse Rate 80 Respiratory Rate 14 Blood Pressure 114/56 L 106/53 L Pulse Oximetry 97 Oxygen Delivery Method 01/05/23 12:20 01/05/23 12:30 01/05/23 12:30 Temperature Pulse Rate 75 82 Respiratory Rate 12 15 Blood Pressure 140/62 Pulse Oximetry 97 98 Oxygen Delivery Method 01/05/23 12:40 01/05/23 12:40 01/05/23 12:50 Temperature Pulse Rate 74 Respiratory Rate 14 Blood Pressure 105/54 L 126/58 L Pulse Oximetry 97 Oxygen Delivery Method 01/05/23 12:50 01/05/23 13:00 01/05/23 13:00 Temperature Pulse Rate 77 74 Respiratory Rate 18 19 Blood Pressure 114/56 L Pulse Oximetry 95 97 Oxygen Delivery Method 01/05/23 13:10 01/05/23 13:10 01/05/23 13:20 Temperature Pulse Rate 73 Respiratory Rate 21 Blood Pressure 104/51 L 110/55 L Pulse Oximetry 97 Oxygen Delivery Method 01/05/23 13:20 01/05/23 13:30 01/05/23 13:30 Temperature Pulse Rate 75 72 Respiratory Rate 24 14 Blood Pressure 108/56 L Pulse Oximetry 99 98 Oxygen Delivery Method 01/05/23 13:40 01/05/23 13:40 01/05/23 13:50 Temperature Pulse Rate 72 72 Respiratory Rate 18 17 Blood Pressure 109/58 L Pulse Oximetry 98 98 Oxygen Delivery Method 01/05/23 13:50 01/05/23 14:00 01/05/23 14:00 Temperature Pulse Rate 73 Respiratory Rate 16 Blood Pressure 119/58 L 134/67 Pulse Oximetry 98 Oxygen Delivery Method 01/05/23 14:10 01/05/23 14:10 01/05/23 14:20 Temperature Pulse Rate 72 71 Respiratory Rate 13 Blood Pressure 112/58 L Pulse Oximetry 99 99 Oxygen Delivery Method 01/05/23 14:20 01/05/23 14:30 01/05/23 14:30 Temperature Pulse Rate 71 Respiratory Rate 13 Blood Pressure 115/59 L 117/60 Pulse Oximetry 98 Oxygen Delivery Method 01/05/23 14:40 01/05/23 14:40 01/05/23 14:50 Temperature Pulse Rate 73 Respiratory Rate 13 Blood Pressure 133/63 125/59 L Pulse Oximetry 99 Oxygen Delivery Method 01/05/23 14:50 01/05/23 15:00 01/05/23 15:00 Temperature Pulse Rate 72 73 Respiratory Rate 11 L Blood Pressure 135/63 Pulse Oximetry 100 99 Oxygen Delivery Method 01/05/23 15:10 01/05/23 15:10 01/05/23 15:20 Temperature Pulse Rate 73 Respiratory Rate 12 Blood Pressure 132/61 129/62 Pulse Oximetry 99 Oxygen Delivery Method 01/05/23 15:20 01/05/23 15:30 01/05/23 15:30 Temperature Pulse Rate 70 72 Respiratory Rate 19 16 Blood Pressure 134/62 Pulse Oximetry 99 99 Oxygen Delivery Method Oxygen Delivery Method Room Air Narrative Exam Narrative: General alert and cooperative, no acute distress Breathing nonlabored CTA B/l CV: RRR no m/r/g. Abdomen S NT ND no CVA tenderness. 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 Alert and oriented to name and location. Objective Labs 01/05/23 09:35 01/05/23 09:35 Labs: Laboratory Results - last 24 hr 01/05/23 01/05/23 01/05/23 09:35 09:35 09:35 WBC 11.4 H RBC 4.16 L Hgb 9.2 L Hct 29.8 L MCV 71.6 L MCH 22.1 L MCHC 30.9 RDW 16.2 H Plt Count 508 H Neut % (Auto) 69.1 Lymph % (Auto) 19.3 L Mcpherson % (Auto) 8.9 Eos % (Auto) 2.1 Baso % (Auto) 0.6 Neut # (Auto) 7900 H Lymph # (Auto) 2200 Mcpherson # (Auto) 1000 H Eos # (Auto) 200 Baso # (Auto) 100 PT 13.2 H INR 1.2 APTT Sodium 138 Potassium 3.6 Chloride 98 Carbon Dioxide 25 BUN 15 Creatinine 0.69 Estimated GFR > 60 BUN/Creatinine Ratio 21.7 Glucose 167 H Lactate Calcium 8.9 Total Bilirubin 0.4 AST 32 ALT 22 Alkaline Phosphatase 171 H Total Protein 7.9 Albumin 4.2 Globulin 3.7 Albumin/Globulin Ratio 1.1 Procalcitonin 0.04 Urine Color Urine Appearance Urine pH Ur Specific [place] Urine Protein Urine Glucose (UA) Urine Ketones Urine Occult Blood Urine Nitrate Urine Bilirubin Urine Urobilinogen Ur Leukocyte Esterase Urine RBC Urine WBC Ur Squamous Epith Cells Urine Bacteria Ur Culture Indicated? Ketones 01/05/23 01/05/23 01/05/23 09:35 09:35 09:35 WBC RBC Hgb Hct MCV MCH MCHC RDW Plt Count Neut % (Auto) Lymph % (Auto) Mcpherson % (Auto) Eos % (Auto) Baso % (Auto) Neut # (Auto) Lymph # (Auto) Mcpherson # (Auto) Eos # (Auto) Baso # (Auto) PT INR APTT 28 Sodium Potassium Chloride Carbon Dioxide BUN Creatinine Estimated GFR BUN/Creatinine Ratio Glucose Lactate 8.0 H* Calcium Total Bilirubin AST ALT Alkaline Phosphatase Total Protein Albumin Globulin Albumin/Globulin Ratio Procalcitonin Urine Color Urine Appearance Urine pH Ur Specific [place] Urine Protein Urine Glucose (UA) Urine Ketones Urine Occult Blood Urine Nitrate Urine Bilirubin Urine Urobilinogen Ur Leukocyte Esterase Urine RBC Urine WBC Ur Squamous Epith Cells Urine Bacteria Ur Culture Indicated? Ketones 0.17 01/05/23 01/05/23 01/05/23 10:41 11:23 12:05 WBC RBC Hgb Hct MCV MCH MCHC RDW Plt Count Neut % (Auto) Lymph % (Auto) Mcpherson % (Auto) Eos % (Auto) Baso % (Auto) Neut # (Auto) Lymph # (Auto) Mcpherson # (Auto) Eos # (Auto) Baso # (Auto) PT INR APTT Sodium Potassium Chloride Carbon Dioxide BUN Creatinine Estimated GFR BUN/Creatinine Ratio Glucose Lactate 3.9 H 2.5 H Calcium Total Bilirubin AST ALT Alkaline Phosphatase Total Protein Albumin Globulin Albumin/Globulin Ratio Procalcitonin Urine Color [place] Urine Appearance Sl cloudy Urine pH 8.5 H Ur Specific [place] 1.010 Urine Protein 2+ H Urine Glucose (UA) Negative Urine Ketones Negative Urine Occult Blood 3+ H Urine Nitrate Negative Urine Bilirubin Negative Urine Urobilinogen 1.0 Ur Leukocyte Esterase 3+ H Urine RBC 10-30/hpf H Urine WBC 10-30/hpf H Ur Squamous Epith Cells 1-5 /hpf Urine Bacteria Few (2-10) H Ur Culture Indicated? Specimen cultured Ketones 01/05/23 13:50 WBC RBC Hgb Hct MCV MCH MCHC RDW Plt Count Neut % (Auto) Lymph % (Auto) Mcpherson % (Auto) Eos % (Auto) Baso % (Auto) Neut # (Auto) Lymph # (Auto) Mcpherson # (Auto) Eos # (Auto) Baso # (Auto) PT INR APTT Sodium Potassium Chloride Carbon Dioxide BUN Creatinine Estimated GFR BUN/Creatinine Ratio Glucose Lactate 1.0 Calcium Total Bilirubin AST ALT Alkaline Phosphatase Total Protein Albumin Globulin Albumin/Globulin Ratio Procalcitonin Urine Color Urine Appearance Urine pH Ur Specific [place] Urine Protein Urine Glucose (UA) Urine Ketones Urine Occult Blood Urine Nitrate Urine Bilirubin Urine Urobilinogen Ur Leukocyte Esterase Urine RBC Urine WBC Ur Squamous Epith Cells Urine Bacteria Ur Culture Indicated? Ketones [facility] Medical History C3 spinal cord injury C4 spinal cord injury CVA (cerebral vascular accident) Diabetes Gastroesophageal reflux disease Hyperlipidemia Hypertension Surgical History History of carotid endarterectomy History of coronary artery stent placement No pertinent past surgical history Family History Mother Cancer Father Lung disease Hyperlipidemia Brother Lupus Social History household members: other Tobacco & Substance Use Smoking Status: Current every day smoker alcohol intake: former substance use type: does not use Additional Social History additional social history: He currently resides in He currently resides in [facility]. Assessment & Plan Assessment & Plan narrative: 67 M with PMH of cervical spinal injury, prior CVA, GERD, HTN, HLD, chronic denson, insulin dependent diabetes with recent UTI with stent placement for obstrctive uropathy approx 1 month ago who presented to the ER with abdominal pain which resolved with removal of his denson catheter. He is currently asymptomatic. He had an elevated lactate which has resolved with fluids. He does have a UTI but is hemodynamically stable and did discuss with patient who was agreeable with discharge back to assisted living. He has no evidence for sepsis with a SOFA score of 1 though his hypotension was likely related to pain medication as he was hypertensive on admission. Based on prior cultures I recommend discharge on oral cefdinir for presumed Morganella for at least 7 days with continued outpatient urology follow up. Patient was counselled on risks of leaving without denson catheter as he refused placement, but wished to leave his catheter out at the time of discharge. Diagnoses: Acute cystitis without hematuria due to chronic denson catheter Recent obstructive uropathy with stent placement Clogged denson cathether, resolved Elevated lactate Chronic diagnoses: see above A/p - no changes to home medications are recommended on discharge. Chronic stable anemia with microcytosis Code: Full, surrogate is patient's mother I have utilized all available immediate resources to obtain, update, or review the patient's current medications. Dispo: Discharge back to assisted living recommended. Additional history was obtained via discussion with the ER provider. I have reviewed patient's labs, imaging, and recent documentation. Discussed recommendations with ER provider and patient.
== END 2023-01-05 15:49 | disposition home or self-care (01) ==
PROVIDERS: Emergency Provider Emergency Medicine; Family Provider Nurse Practitioner Family; PCP Nurse Practitioner Family
DX: N39.0 Urinary tract infection, site not specified (principal); T83.9XXA Unspecified complication of genitourinary prosthetic device, implant and graft, initial encounter; Z96.0 Presence of urogenital implants; Z79.899 Other long term (current) drug therapy
CPT/HCPCS: 36415; 51798; 74176; 80053; 81001; 81003; 82009; 83605; 84145; 85025; 85610; 85730; 87040; 87077; 87086; 87186; 96361; 96365; 96375; 99285; J1170; J1885; J2543

== ENCOUNTER → 2023-01-21 10:00 | Outpatient (CLI) | payer MEDICARE, MEDICAID, SELFPAY ==
[2022-12-01 13:43] VITALS: BMI 21.7
== END ==
PROVIDERS: Family Provider Nurse Practitioner Family; PCP Nurse Practitioner Family; Referring Provider Nurse Practitioner Family; Visit Provider Surgery
DX: L89.153 Pressure ulcer of sacral region, stage 3 (principal); E10.628 Type 1 diabetes mellitus with other skin complications
CPT/HCPCS: 11042; 99212; 99213

== ENCOUNTER → 2023-01-28 11:41 | Outpatient (CLI) | payer MEDICARE, MEDICAID, SELFPAY ==
[2022-12-01 13:43] VITALS: BMI 21.7
== END ==
LOC: WC 11:41
PROVIDERS: Family Provider Nurse Practitioner Family; PCP Nurse Practitioner Family; Referring Provider Nurse Practitioner Family; Visit Provider Surgery
DX: E10.628 Type 1 diabetes mellitus with other skin complications (principal); L89.153 Pressure ulcer of sacral region, stage 3; E10.51 Type 1 diabetes mellitus with diabetic peripheral angiopathy without gangrene; Z99.3 Dependence on wheelchair
CPT/HCPCS: 11042

== ENCOUNTER → 2023-02-04 15:33 | Outpatient (CLI) | payer MEDICARE, MEDICAID, SELFPAY ==
[2022-12-01 13:43] VITALS: BMI 21.7
== END ==
LOC: WC 15:33
PROVIDERS: Family Provider Nurse Practitioner Family; PCP Nurse Practitioner Family; Referring Provider Nurse Practitioner Family; Visit Provider Surgery
DX: E10.628 Type 1 diabetes mellitus with other skin complications (principal); L89.153 Pressure ulcer of sacral region, stage 3
CPT/HCPCS: 11042

== ENCOUNTER → 2023-02-11 14:52 | Outpatient (CLI) | payer MEDICARE, MEDICAID, SELFPAY ==
[2022-12-01 13:43] VITALS: BMI 21.7
--- NOTE | 2023-02-11 | OV.WND_ITS ---
Progress Note Details Patient Name: Ray Foster Patient Number: [id number] Clinician: Fiona Brooks RN Patient Date of : 1955 Physician / Manager Of Case: Fritz Gómez Patient SUBJECTIVE Chief Complaint This information was obtained from the Patient. Pressure ulcer on coccyx. Allergies amitriptyline, codeine, pollen extracts, rye grass HPI This information was obtained from the Patient. The following HPI elements were documented for the patient's wound: Location: coccyx Duration: Jan 07, 2023 Context: pressure Associated Signs and Symptoms: none The patient is a 67 year old male with type 1 diabetes mellitus, CVA, ischemic cardiomyopathy, and PAD who returns today for follow up of a stage 3 pressure ulcer on the coccyx. The patient is nonambulatory secondary to previous cervical spine injury and spends his day in a wheelchair. Patient has been receiving dressing changes with Hydrofera blue and border foam. The patient has been trying to lay more on his side and recline more in his wheelchair. The patient reports that the ulcer is occasionally tender. He has not had any redness or drainage nor has he had any fever or chills. The patient has never had a pressure ulcer in that location in the past. He reports good appetite and good control of his blood sugars. He is taking protein supplements. His last hemoglobin A1c was 6.6. No recent changes in overall health. On exam today the ulcer measures slightly larger and has some slough and undermining, no evidence for infection. The wheelchair was inspected today and the patient was found to have a Roho cushion beneath 2 other cushions. The patient does sleep on an air mattress. LABS: 01/05/23: WBC 11.4, hemoglobin 9.2, HCT 29.8, electrolytes unremarkable, GFR greater than 60, LFTs normal Medical History This information was obtained from the Chart, Patient. Patient has a medical history of: Type 1 Diabetes Ischemic Cardiomyopathy Hypertension Coronary Artery Disease (CAD) Peripheral Vascular Disease Renal Failure (Stage 3, stable.) CristianRay Natalie [id number] 1955 Stroke (x3 in 1998) Gastro Esoph. Reflux Disease (GERD) Anxiety hemiplegia hemiparesis Hypothyroidism Hyperlipidemia arterial stent (x6, 1 obstructed (RLE)) Retinopathy Major depressive disorder Gastro Esoph. Reflux Disease (GERD) urine retension (October 2020) Surgical History This information was obtained from the Chart, Patient. 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 Corrales) OBJECTIVE Vitals Height/Length: 65 in (165.1 cm), BMI: 0, Temperature: 99 ?F (37.22 ?C), Pulse: 85 bpm, Respiratory Rate: 16 breaths/min, Blood Pressure: 114/64 mmHg, Pulse Oximetry: 98 %. General Notes CBG per patient 87. Physical Exam Constitutional: Vital signs reviewed and noted. Generalized weakness. In no apparent distress. Respiratory: Even respirations without use of accessory muscles. No intercoastal retractions noted. Even and non labored respiration. Integumentary (Hair, Skin): See wound assessment. Neurological: Sensation: Symmetric function by informal observation. Psychiatric: Orientation to time, place and person: Normal affect with normal thought pattern. Additional Information The patient's potential to heal is: fair. Wound Assessment(s) Ray Foster [id number] 1955 Wound #16 Coccyx is a chronic Stage 3 Pressure Injury Pressure Ulcer and has received a status of Not Healed. Initial wound encounter measurements are 1.1cm length x 0.7cm width x 0.2 cm depth, with an area of 0.77 sq cm and a volume of 0.154 cubic cm. Adipose is exposed. No tunneling has been noted. No sinus tract has been noted. Undermining has been noted at 7:00 and ends at 1:00 with a maximum distance of 0.2cm. There is a Moderate amount of serosanguineous drainage noted which has no odor. The patient reports a wound pain of level 6/10. The wound margin is unattached Wound bed has No, granulation, Yes slough, No eschar, No epithelialization. The periwound skin texture is normal. The periwound skin moisture is normal. The periwound skin color is normal. The temperature of the periwound skin is WNL. ASSESSMENT Active Problems ICD-10 (Encounter Diagnosis) L89.153 - Pressure ulcer of sacral region, stage 3 (Encounter Diagnosis) E10.9 - Type 1 diabetes mellitus without complications General Notes Stage III sacral pressure ulcer, unchanged, no evidence for infection , measurements slightly larger The following factors have been identified that may affect wound healing: Devitalized tissue Bioburden Ongoing pressure Diabetes Hemiplegia Ischemic cardiomyopathy Goals: remove devitalized tissue Remove and prevent biofilm Pressure offloading Protein supplementation Prevent infection Wound closure Prevent recurrence Plan: Debridement, continue dressing changes with Hydrofera blue and border foam. The patient encouraged to continue to turn from side to side for pressure offloading. The Roho cushion was moved to the top of his Staph of cushions on his wheelchair. Continue protein supplementation, follow up in 1 week for a recheck. PROCEDURES Wound #16 Wound #16 (Pressure Ulcer) is located on the coccyx. A skin/subcutaneous tissue level surgical debridement with a total area debrided of 0.88 sq cm. was performed by Fritz Gómez MD. Dermis, epidermis and subcutaneous were removed along with devitalized tissue: biofilm, exudate and slough. The following instrument(s) were used: curette. Pain control was achieved using EMLA lidocaine/prilocaine 2.5%/2.5%. A time out was conducted prior to the start of the procedure. A minimal amount of bleeding was controlled with pressure. The procedure was tolerated well with a pain level of 0 throughout and a pain level of 0 following the procedure. Post Debridement Measurements: 1.1cm length x 0.8cm width x 0.2cm depth; with an area of 0.88 sq cm and a volume of 0.176 cubic Selma Ray Natalie [id number] 1955 cm. Additional Information Muscle fascia or bone removed and sent to pathology?: No PLAN Wound Orders: Wound #16 Coccyx Anesthetic Topical Xylocaine to wound bed Hygiene May shower with wound protected, using a cast protector or plastic bag and tape Cleanser Cleanse Wound with normal saline Dressings Primary dressing - Hydrofera blue. Cover and secure with - Bordered foam. Change Dressing - Three times at home this week or more often if soiled. Physician Review: Reviewed and evaluated labs. Discussed the Plan of Care @ bedside with - patient Reviewed hospital records. I, as the physician, have reviewed the orders scribed by the center RN's and agree. Additional Orders: Off-Loading Keep weight off - Coccyx Wheelchair Cushion - Roho cushion, do not add extra cushions to wheelchair. Seat lifts or shift position in chair every 15 minutes Turn every 2 hours. Avoid position directing pressure to Wound site. Limit side lying to 30 degree tilt. Limit HOB elevation to 30 degrees in bed. - Assist pt in laying on side. Avoid laying on back Dietary Increased protein Follow-Up Appointments Return Appointment - One week Other information: If you develop fever, chills, increased pain, drainage, redness or swelling please call our office. If after hours, respond to the ER. Should you experience any significant changes in your wound(s) or have any questions regarding your home care instructions please contact the wound center @ [phone]. If after hours, contact your primary care physician or go to the hospital emergency room. Scribing Attestation I attest, as the nurse, that I scribed these orders for the physician. Plan of Care: 01. ENSURE/ESTABLISH OPTIMAL BLOOD FLOW : - Reviewed, not applicable 02. ASSESS FOR/TREAT INFECTION : - Evaluate for signs and symptoms of infection and document findings. - Obtain culture and sensitivity (CandS) or tissue culture when infection is suspected. (NOTE:) Consider repeating when wound healing <40% after 30 days of wound care. - Order appropriate antibiotics based on patient presentation and culture and sensitivity results. Instruct patient on the importance of taking medication as prescribed. 03. DEBRIDE WEEKLY OR MORE OFTEN PRN : - Evaluate patient in center weekly to assess wound bed and margins for need for debridement. - Mechanical debridement: Stimulate and/or maintain acute phase of wound healing by reducing Ray Foster [id number] 1955 bacterial burden and devitalized/non-viable tissue. 04. OPTIMIZE GLUCOSE CONTROL and NUTRITION : - Order/review pertinent labs to evaluate renal function, glucose control, and nutritional status. - Complete a nutrition risk assessment. - Order Nutrition Consult based upon results of nutrition risk assessment. 05. OFFLOADING PLAN : - Evaluate plan for offloading - Advise patient to offload the foot ulcer. (i.e. half shoe, surgical shoe, insert, custom shoe, felt and foam, cam walker, multipodus splint, total contact cast, bi-valve cast, posterior splint). - Provide education materials/discuss offloading strategies as appropriate. - Assess tolerance and compliance of offloading. 06. OPTIMIZE HOST FACTORS: - Assess and review patient history for wound etiology, co-morbid conditions, medication regime, and smoking history. 07. DRESSING SELECTION : - Evaluate for dressing-related factors, such as availability, wear time, adaptability and use to better optimize wound healing and patient compliance. - Choose topical treatments and/or dressing based on wound type and appearance, periwound skin condition, wound size and depth, anatomic location, volume of exudate, edema in the lower extremities, and risk or presence of infection. 08. ADVANCED MODALITIES : - Evaluate for appropriateness of Cellular Tissue Product therapy. 09. FALL PREVENTION : - Complete fall assessment. 10. PAIN MANAGEMENT : - Complete pain assessment 11. MEASURABLE GOALS for Wound Healing and/or Hyperbaric Oxygen Therapy : - Decrease Inflammation - Decrease pain - Decrease Wound Dimensions - Wound Closure - Improve quality of life 12. DURATION/FREQUENCY of Wound Care Visits : - 1x weekly for 30 days Electronic Signature(s) Signed By: Date: Fritz Gómez MD 02/11/2023 15:40:43 (PT) Entered By: Fritz Gómez MD on 02/11/2023 15:40:13 (PT) Ray Foster [id number] 1955
== END ==
LOC: WC 14:53
PROVIDERS: Family Provider Nurse Practitioner Family; PCP Nurse Practitioner Family; Referring Provider Nurse Practitioner Family; Visit Provider Surgery
DX: E10.628 Type 1 diabetes mellitus with other skin complications (principal); L89.153 Pressure ulcer of sacral region, stage 3
CPT/HCPCS: 11042

== ENCOUNTER → 2023-02-18 15:12 | Outpatient (CLI) | payer MEDICARE, MEDICAID, SELFPAY ==
[2022-12-01 13:43] VITALS: BMI 21.7
== END ==
PROVIDERS: Family Provider Nurse Practitioner Family; PCP Nurse Practitioner Family; Referring Provider Nurse Practitioner Family; Visit Provider Surgery
DX: L89.153 Pressure ulcer of sacral region, stage 3 (principal); E10.628 Type 1 diabetes mellitus with other skin complications
CPT/HCPCS: 11042; 87070; 87077; 87147; 87186; 87205; 99213

== ENCOUNTER → 2023-02-25 15:45 | Outpatient (CLI) | payer MEDICARE, MEDICAID, SELFPAY ==
[2022-12-01 13:43] VITALS: BMI 21.7
== END ==
PROVIDERS: Family Provider Nurse Practitioner Family; PCP Nurse Practitioner Family; Referring Provider Nurse Practitioner Family; Visit Provider Surgery
DX: L89.153 Pressure ulcer of sacral region, stage 3 (principal); E10.628 Type 1 diabetes mellitus with other skin complications
CPT/HCPCS: 11042; 99212; 99213

== ENCOUNTER → 2023-03-04 13:48 | Outpatient (CLI) | payer MEDICARE, MEDICAID, SELFPAY ==
[2022-12-01 13:43] VITALS: BMI 21.7
== END ==
PROVIDERS: Family Provider Nurse Practitioner Family; PCP Nurse Practitioner Family; Referring Provider Nurse Practitioner Family; Visit Provider Surgery
DX: L89.153 Pressure ulcer of sacral region, stage 3 (principal); E10.628 Type 1 diabetes mellitus with other skin complications; E10.51 Type 1 diabetes mellitus with diabetic peripheral angiopathy without gangrene
CPT/HCPCS: 11042

== ENCOUNTER → 2023-03-19 10:58 | Outpatient (CLI) | payer MEDICARE, MEDICAID, SELFPAY ==
[2022-12-01 13:43] VITALS: BMI 21.7
== END ==
LOC: WC 10:59
PROVIDERS: Family Provider Nurse Practitioner Family; PCP Nurse Practitioner Family; Referring Provider Nurse Practitioner Family; Visit Provider Surgery
DX: L89.153 Pressure ulcer of sacral region, stage 3 (principal); E10.9 Type 1 diabetes mellitus without complications
CPT/HCPCS: 11042

== ENCOUNTER → 2023-03-29 22:19 | Outpatient (ROUT) | payer MEDICARE, MEDICAID, SELFPAY ==
[2022-12-01 13:43] VITALS: BMI 21.7
[2023-03-29 22:28] LABS: Appearance Urine UA CLOUDY; Bilirubin Urine UA NEGATIVE (NEGATIVE); Color Urine UA YELLOW; Glucose Urine UA NEGATIVE (Negative); Ketones Urine UA NEGATIVE (NEGATIVE); Leukocyte Esterase Urine UA 3+ (NEGATIVE); Nitrite Urine UA NEGATIVE (Negative); Occult Blood Urine UA 3+ (Negative); Protein Urine UA 2+ (Negative); pH Urine UA 8.5 (4.5-8.0)
[2023-03-29 22:36] LABS: Bacteria Urine Many (>30); RBC Urine 30-100/HPF (0-5/HPF); WBC Urine 5-10/HPF (0-5/HPF)
[2023-03-29 22:37] LABS: Squamous Epithelial Cell Urine 0-1 /HPF (0-5/HPF); Triple Phosphate Crystal Urine Few
[2023-03-29 22:38] LABS: Culture Indicated Urine Specimen Cultured
== END ==
PROVIDERS: Family Provider Nurse Practitioner Family; PCP Nurse Practitioner Family; Visit Provider Internal Medicine
DX: R31.9 Hematuria, unspecified (principal); R30.0 Dysuria
CPT/HCPCS: 81001; 87077; 87086; 87186

== ENCOUNTER → 2023-03-30 11:12 | Outpatient (CLI) | payer MEDICARE, MEDICAID, SELFPAY ==
[2022-12-01 13:43] VITALS: BMI 21.7
--- NOTE | 2023-03-30 | OV.WND_ITS ---
Progress Note Details Patient Name: Ray Foster Patient Number: [id number] Clinician: Agata Ordaz Patient Date of : 1955 Physician / Diagnostic Cardiac Sonographer: Fritz Gómez Patient SUBJECTIVE Chief Complaint This information was obtained from the Chart, Patient. (Ulcer to coccyx) Allergies amitriptyline, codeine, pollen extracts, rye grass HPI This information was obtained from the Patient. The following HPI elements were documented for the patient's wound: Location: coccyx Duration: 01/07/23 Context: pressure The patient is a 67 year old male with type 1 diabetes mellitus, CVA, ischemic cardiomyopathy, and PAD who returns today for follow up of a stage 3 pressure ulcer on the coccyx. The patient is nonambulatory secondary to previous cervical spine injury and spends his day in a wheelchair. Patient has been receiving dressing changes with Hydrofera blue, Promogran, and border foam. The patient has been trying to lay more on his side and recline more in his wheelchair. The patient reports that there has been less tenderness. He has not had any redness or drainage nor has he had any fever or chills. The patient has never had a pressure ulcer in that location in the past. He reports poor appetite and good control of his blood sugars. He is taking protein supplements. His last hemoglobin A1c was 6.6. No recent changes in overall health. On exam today the ulcer measures about the same and still has some undermining. There is less slough on today's exam. The Roho cushion has not been repaired or replaced. Previous culture grew MRSA and Proteus mirabilis and he completed a 1 week course of doxycycline. LABS: 01/05/23: WBC 11.4, hemoglobin 9.2, HCT 29.8, electrolytes unremarkable, GFR greater than 60, LFTs normal Medical History This information was obtained from the Chart, Patient. Patient has a medical history of: Type 1 Diabetes Ischemic Cardiomyopathy Hypertension Coronary Artery Disease (CAD) Peripheral Vascular Disease Renal Failure (Stage 3, stable.) Stroke (x3 in 1998) Ray Foster [id number] 1955 Gastro Esoph. Reflux Disease (GERD) Anxiety hemiplegia hemiparesis Hypothyroidism Hyperlipidemia arterial stent (x6, 1 obstructed (RLE)) Retinopathy Major depressive disorder Gastro Esoph. Reflux Disease (GERD) urine retension (October 2020) Additional Information Does patient have a history of Cancer? Yes? Complete all questions.: No Surgical History This information was obtained from the Chart, Patient. 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 Corrales) OBJECTIVE Vitals Height/Length: 65 in (165.1 cm), BMI: 0, Temperature: 98.5 ?F (36.94 ?C), Pulse: 85 bpm, Respiratory Rate: 16 breaths/min, Blood Pressure: 113/65 mmHg, Pulse Oximetry: 96 %. General Notes CBG per pt 129 Physical Exam Constitutional: Vital signs reviewed and noted. Well developed, well nourished, and in no acute distress. Alert and oriented x3. Respiratory: Even respirations without use of accessory muscles. No intercoastal retractions noted. Even and non labored respiration. Integumentary (Hair, Skin): See wound assessment. Neurological: Sensation: Symmetric function by informal observation. Psychiatric: Orientation to time, place and person: Normal affect with normal thought pattern. Additional Information The patient's potential to heal is: poor. Ray Foster [id number] 1955 Wound Assessment(s) Wound #16 Coccyx is a chronic Stage 3 Pressure Injury Pressure Ulcer and has received a status of Not Healed. Initial wound encounter measurements are 0.9cm length x 0.6cm width x 0.2 cm depth, with an area of 0.54 sq cm and a volume of 0.108 cubic cm. Adipose is exposed. No tunneling has been noted. No sinus tract has been noted. Undermining has been noted at 12:00 and ends at 12:00 with a maximum distance of 0.2cm. There is a Small amount of serosanguineous drainage noted which has no odor. The patient reports a wound pain of level 8/10. The wound margin is unattached Wound bed has Yes, pink, firm, granulation, Yes slough, No eschar, No epithelialization. The periwound skin texture is normal. The periwound skin moisture is normal. The periwound skin color is normal. The temperature of the periwound skin is WNL. Local Pulse is N/A. Additional Information Limited to breakdown of skin: No ASSESSMENT Active Problems ICD-10 (Encounter Diagnosis) L89.153 - Pressure ulcer of sacral region, stage 3 (Encounter Diagnosis) E10.9 - Type 1 diabetes mellitus without complications General Notes Stage III sacral pressure ulcer, unchanged in size, still has undermining The following factors have been identified that may affect wound healing: Devitalized tissue Bioburden Ongoing pressure Diabetes Hemiplegia Ischemic cardiomyopathy Goals: remove devitalized tissue Remove and prevent biofilm Pressure offloading Protein supplementation Prevent infection Wound closure Prevent recurrence Plan: Debridement, continue dressing changes with Hydrofera blue, Promogran, and border foam. The patient encouraged to continue to turn from side to side for pressure offloading. Continue protein supplementation, follow up in 2 weeks for a recheck. Continue use of Roho cushion. PROCEDURES Wound #16 Wound #16 (Pressure Ulcer) is located on the coccyx. A skin/subcutaneous tissue level surgical debridement with a total area debrided of 0.54 sq cm. was performed by Fritz Gómez MD. Subcutaneous was removed along with devitalized tissue: biofilm, exudate and slough. The following instrument(s) were used: curette. Pain control was achieved using EMLA lidocaine/prilocaine Ray Foster [id number] 1955 2.5%/2.5%. A time out was conducted prior to the start of the procedure. A minimal amount of bleeding was controlled with pressure. The procedure was tolerated well with a pain level of 2 throughout and a pain level of 0 following the procedure. Post Debridement Measurements: 0.9cm length x 0.6cm width x 0.3cm depth; with an area of 0.54 sq cm and a volume of 0.162 cubic cm. Additional Information Muscle fascia or bone removed and sent to pathology?: No PLAN Wound Orders: Wound #16 Coccyx Anesthetic Topical Xylocaine to wound bed Hygiene May shower with wound protected, using a cast protector or plastic bag and tape Cleanser Cleanse Wound with normal saline Dressings Pack wound - Promogran moistened with saline. Primary dressing - Hydrofera blue. Cover and secure with - Bordered foam. Change Dressing - Three times per week or more often if soiled. Physician Review: Reviewed and evaluated labs. Discussed the Plan of Care @ bedside with - patient Reviewed hospital records. I, as the physician, have reviewed the orders scribed by the center RN's and agree. Additional Orders: Off-Loading Keep weight off - Coccyx Wheelchair Cushion - ROHO cushion. Inflated at today's visit, evaluate for deflation/leak frequently since this has occurred in the past. Seat lifts or shift position in chair every 15 minutes Turn every 2 hours. Avoid position directing pressure to Wound site. Limit side lying to 30 degree tilt. Limit HOB elevation to 30 degrees in bed. - Assist pt in laying on side. Avoid laying on back. Other order - Take breaks from wheelchair frequently throughout the day and avoid laying on back. Dietary Increased protein - Supplement with protein shakes in between meals. Follow-Up Appointments Return Appointment - Two weeks. Other information: If you develop fever, chills, increased pain, drainage, redness or swelling please call our office. If after hours, respond to the ER. Should you experience any significant changes in your wound(s) or have any questions regarding your home care instructions please contact the wound center @ [phone]. If after hours, contact your primary care physician or go to the hospital emergency room. Scribing Attestation I attest, as the nurse, that I scribed these orders for the physician. Plan of Care: 01. ENSURE/ESTABLISH OPTIMAL BLOOD FLOW : - Reviewed, not applicable 02. ASSESS FOR/TREAT INFECTION : - Evaluate for signs and symptoms of infection and document findings. - Obtain culture and sensitivity (CandS) or tissue culture when infection is suspected. (NOTE:) Consider repeating when wound healing <40% after 30 days of wound care. Ray Foster [id number] 1955 - Order appropriate antibiotics based on patient presentation and culture and sensitivity results. Instruct patient on the importance of taking medication as prescribed. 03. DEBRIDE WEEKLY OR MORE OFTEN PRN : - Evaluate patient in center weekly to assess wound bed and margins for need for debridement. - Mechanical debridement: Stimulate and/or maintain acute phase of wound healing by reducing bacterial burden and devitalized/non-viable tissue. 04. OPTIMIZE GLUCOSE CONTROL and NUTRITION : - Order/review pertinent labs to evaluate renal function, glucose control, and nutritional status. - Complete a nutrition risk assessment. - Order Nutrition Consult based upon results of nutrition risk assessment. 05. OFFLOADING PLAN : - Evaluate plan for offloading - Advise patient to offload the foot ulcer. (i.e. half shoe, surgical shoe, insert, custom shoe, felt and foam, cam walker, multipodus splint, total contact cast, bi-valve cast, posterior splint). - Provide education materials/discuss offloading strategies as appropriate. - Assess tolerance and compliance of offloading. 06. OPTIMIZE HOST FACTORS: - Assess and review patient history for wound etiology, co-morbid conditions, medication regime, and smoking history. 07. DRESSING SELECTION : - Evaluate for dressing-related factors, such as availability, wear time, adaptability and use to better optimize wound healing and patient compliance. - Choose topical treatments and/or dressing based on wound type and appearance, periwound skin condition, wound size and depth, anatomic location, volume of exudate, edema in the lower extremities, and risk or presence of infection. 08. ADVANCED MODALITIES : - Evaluate for appropriateness of Cellular Tissue Product therapy. 09. FALL PREVENTION : - Complete fall assessment. 10. PAIN MANAGEMENT : - Complete pain assessment 11. MEASURABLE GOALS for Wound Healing and/or Hyperbaric Oxygen Therapy : - Decrease Inflammation - Decrease pain - Decrease Wound Dimensions - Wound Closure - Improve quality of life 12. DURATION/FREQUENCY of Wound Care Visits : - 1x weekly for 30 days Electronic Signature(s) Signed By: Date: Fritz Gómez MD 03/30/2023 12:36:51 (PT) Entered By: Fritz Gómez MD on 03/30/2023 12:36:19 (PT) Ray Foster [id number] 1955
== END ==
PROVIDERS: Family Provider Nurse Practitioner Family; PCP Nurse Practitioner Family; Referring Provider Nurse Practitioner Family; Visit Provider Surgery
DX: L89.153 Pressure ulcer of sacral region, stage 3 (principal); E10.621 Type 1 diabetes mellitus with foot ulcer; I10 Essential (primary) hypertension; E78.5 Hyperlipidemia, unspecified
CPT/HCPCS: 11042

== ENCOUNTER → 2023-04-13 09:27 | Outpatient (CLI) | payer MEDICARE, MEDICAID, SELFPAY ==
[2022-12-01 13:43] VITALS: BMI 21.7
== END ==
PROVIDERS: Family Provider Nurse Practitioner Family; PCP Nurse Practitioner Family; Referring Provider Nurse Practitioner Family; Visit Provider Surgery
DX: L89.153 Pressure ulcer of sacral region, stage 3 (principal); E10.9 Type 1 diabetes mellitus without complications
CPT/HCPCS: 11042; 99213

== ENCOUNTER → 2023-05-05 19:42 | Outpatient (ROUT) | payer MEDICARE, MEDICAID, SELFPAY ==
[2022-12-01 13:43] VITALS: BMI 21.7
[2023-05-05 19:49] LABS: Appearance Urine UA CLOUDY; Bilirubin Urine UA NEGATIVE (NEGATIVE); Color Urine UA YELLOW; Glucose Urine UA NEGATIVE (Negative); Ketones Urine UA NEGATIVE (NEGATIVE); Leukocyte Esterase Urine UA 3+ (NEGATIVE); Nitrite Urine UA NEGATIVE (Negative); Occult Blood Urine UA 3+ (Negative); Protein Urine UA 2+ (Negative); Urobilinogen Urine UA 0.2 E.U./dL (0.2); pH Urine UA 8.5 (4.5-8.0)
[2023-05-05 20:03] LABS: Bacteria Urine Many (>30); Culture Indicated Urine Specimen Cultured; RBC Urine >100/HPF (0-5/HPF); Squamous Epithelial Cell Urine 1-5 /HPF (0-5/HPF); Triple Phosphate Crystal Urine Few; WBC Urine 30-100/HPF (0-5/HPF)
== END ==
PROVIDERS: Family Provider Nurse Practitioner Family; PCP Nurse Practitioner Family; Visit Provider Internal Medicine
DX: R10.9 Unspecified abdominal pain (principal); R30.0 Dysuria; R11.2 Nausea with vomiting, unspecified
CPT/HCPCS: 81001; 87077; 87086; 87186

== ENCOUNTER → 2023-05-06 18:12 | Outpatient (ROUT) | payer MEDICARE, MEDICAID, SELFPAY ==
[2022-12-01 13:43] VITALS: BMI 21.7
[2023-05-06 18:40] LABS: Mean Corpuscular HGB Conc 29.1 % (30-36); Mean Corpuscular Hemoglobin 15.4 PG (26-34); Mean Corpuscular Volume 52.9 fL (80-100); Platelet Count 385 X10^3/uL (150-400); Red Blood Cell Count 3.56 X10^6/uL (4.5-5.9); Red Cell Distribution Width 18.8 % (11.6-14.8); White Blood Cell Count 16.3 X10^3/uL (4.5-11.0)
[2023-05-06 18:42] LABS: Alanine Aminotransferase 22 IU/L (<50); Albumin 3.4 g/dL (3.5-5.0); Alkaline Phosphatase 153 U/L (38-126); BUN Creatinine Ratio 23.8 (6-22); Bilirubin Total 0.7 mg/dL (0.2-1.3); Blood Urea Nitrogen 20 mg/dL (9-20); Calcium 8.8 mg/dL (8.4-10.2); Carbon Dioxide 28 mmol/L (22-32); Chloride 93 mmol/L (98-107); Estimated Glomerular Filt Rate > 60 mL/min (>60); Globulin 3.3 g/dL (1.7-4.1); Glucose 136 mg/dL (80-110); HEMOLYSIS < 15 (0-50); Potassium 4.5 mmol/L (3.4-5.1); Sodium 131 mmol/L (137-145); Total Protein 6.7 g/dL (6.3-8.2)
[2023-05-06 19:51] LABS: Add Manual Diff / Slide Review YES; Hematocrit 18.9 % (41-53); Hemoglobin 5.5 g/dL (13.5-17.5)
[2023-05-06 20:18] LABS: Neutrophils Absolute Manual 14507 /uL (3000-5900); Nucleated Red Blood Cells 1 #/Diff; Total Cells Counted 100
[2023-05-06 20:19] LABS: Hypochromasia 2+
[2023-05-06 20:20] LABS: Anisocytosis 2+; Microcytosis 2+; Target Cells 1+
[2023-05-07 15:34] LABS: Aspartate Aminotransferase 41 IU/L (17-59)
== END ==
PROVIDERS: Family Provider Nurse Practitioner Family; PCP Nurse Practitioner Family; Visit Provider Internal Medicine
DX: E11.9 Type 2 diabetes mellitus without complications (principal); R53.83 Other fatigue; R53.1 Weakness
CPT/HCPCS: 80053; 85007; 85025

== ENCOUNTER 2023-05-06 20:51 | Emergency (ER) | payer MEDICARE, MEDICAID, SELFPAY ==
[2022-12-01 13:43] VITALS: BMI 21.7
[2023-05-06] VITALS (8 sets, daily range): BP systolic 103–112; BP diastolic 45–58; PULSE 84–94; RESP 16–18; TEMP 36.4–36.8; O2SAT 93–97; BMI 20.3
--- NOTE | 2023-05-06 20:51 | ED.ABDPAIN ---
HPI - Abdominal Pain General Chief Complaint: Recheck/Abnormal Lab/Rx Stated Complaint: Low H/H History of Present Illness HPI narrative: 68-year-old male who presents with chronic abdominal pain as per PCP, with no reported acute changes but routine labs revealed low hemoglobin and request for transfusion per primary care provider. Patient states that he was constipated for 5 days and reports improvement in abdominal discomfort after a large bowel movement. No melena or bright red blood per rectum reported. Patient is coming from assisted living and arrives via ambulance. Patient is awake, alert and in no apparent distress. Related Data Home Medications Medication Instructions Recorded Confirmed acetaminophen 325 mg tablet 1,000 mg PO TID PRN pain/fever ##0 06/29/17 12/01/22 atorvastatin 80 mg tablet 80 mg PO BEDTIME ##0 06/29/17 12/01/22 clopidogrel 75 mg tablet 75 mg PO DAILY ##0 06/29/17 12/01/22 levothyroxine 50 mcg tablet 50 mcg PO QPM ##0 06/29/17 12/01/22 omeprazole 20 mg capsule,delayed 40 mg PO DAILY ##0 06/29/17 12/01/22 release insulin aspart U-100 100 unit/mL See Rx Instructions .Route .COMPLEX 11/25/17 12/01/22 (3 mL) subcutaneous pen (Novolog FlexPen U-100 Insulin aspart) cholecalciferol (vitamin D3) 25 2,000 unit PO DAILY 08/13/18 12/01/22 mcg (1,000 unit) capsule fluticasone propionate 50 1 spray intranasal BID 08/13/18 12/01/22 mcg/actuation nasal spray,suspension hydroxyzine pamoate 25 mg capsule 25 - 50 mg PO Q6H PRN pain/spasms 08/13/18 12/01/22 mirtazapine 15 mg tablet 15 mg PO BEDTIME 08/13/18 12/01/22 ondansetron 4 mg disintegrating 4 - 8 mg PO Q4H PRN Nausea 08/13/18 12/01/22 tablet duloxetine 60 mg capsule,delayed 60 mg PO BEDTIME 03/02/19 12/01/22 release glucagon (human recombinant) 1 mg 1 mg IM PRN PRN blood glucose <60 03/02/19 12/01/22 solution for injection (Glucagon Emergency Kit) nystatin 100,000 unit/gram topical 1 applic topical BID PRN yeast 03/02/19 12/01/22 cream aluminum-mag hydroxide-simethicone 10 ml PO DAILY PRN Heartburn 07/04/21 12/01/22 200 mg-200 mg-20 mg/5 mL oral susp aspirin 81 mg tablet,delayed 81 mg PO DAILY 07/04/21 12/01/22 release lubiprostone 24 mcg capsule 24 mcg PO BID 07/04/21 12/01/22 (Amitiza) oxycodone myristate 18 mg capsule 18 mg PO BID 07/04/21 12/01/22 sprinkle extended release 12hr(DON'T CRUSH) (Xtampza ER) sertraline 50 mg tablet 50 mg PO DAILY 07/04/21 12/01/22 tamsulosin 0.4 mg capsule 0.4 mg PO BEDTIME 07/04/21 12/01/22 bisacodyl 5 mg tablet 5 - 10 mg PO DAILY PRN Constipation 12/01/22 12/01/22 docusate sodium 100 mg tablet 200 mg PO TID 12/01/22 12/01/22 furosemide 80 mg tablet 80 mg PO QAM 12/01/22 12/01/22 insulin glargine 100 unit/mL (3 17 unit SUBCUT BEDTIME 12/01/22 12/01/22 mL) subcutaneous pen (Lantus Solostar U-100 Insulin) lorazepam 1 mg tablet 1 mg PO BEDTIME PRN Insomnia 12/01/22 12/01/22 magnesium hydroxide 400 mg/5 mL 30 ml PO DAILY PRN Constipation 12/01/22 12/01/22 oral suspension (Milk of Magnesia) metoclopramide HCl 5 mg/5 mL oral 10 mg PO QAC 12/01/22 12/01/22 solution oxymetazoline 0.05 % nasal spray 2 spray intranasal Q12H PRN 12/01/22 12/01/22 nosebleed propylene glycol 1 %-glycerin 0.3 1 drp ophthalmic (eye) Q1H PRN Dry 12/01/22 12/01/22 % eye drops Eyes sennosides 8.6 mg tablet (senna) 17.2 mg PO BID 12/01/22 12/01/22 Previous Rx's Medication Instructions Recorded bisacodyl 10 mg rectal suppository 10 mg [place] DAILY PRN Constipation #0 07/07/21 ea naloxone 0.4 mg/mL injection 0.4 mg IM Q15-20M PRN Opioid 07/07/21 solution Overdose #0 mL oxycodone 5 mg tablet 20 mg (4 x 5 mg) PO Q4H PRN pain 7 07/07/21 days #40 tabs polyethylene glycol 3350 17 17 g PO DAILY PRN Constipation #0 07/07/21 gram/dose oral powder grams lorazepam 1 mg tablet (Ativan) 1 mg PO TID PRN nausea and 07/09/22 vomiting #10 tabs ketorolac 10 mg tablet 10 mg PO Q6H PRN pain #14 tabs 11/28/22 cefdinir 300 mg capsule 300 mg PO BID #20 caps 01/05/23 cefdinir 300 mg capsule 300 mg PO BID #20 caps 01/05/23 Allergies Allergy/AdvReac Type Severity Reaction Status Date / Time amitriptyline Allergy Verified 12/01/22 07:38 pollen extracts Allergy Verified 12/01/22 07:38 codeine [CODEINE] AdvReac Unknown nausea Verified 12/01/22 07:38 Review of Systems Review of Systems Narrative: See HPI for pertinent positives. Otherwise review of systems negative Patient History Medical History (Updated 05/07/23 @ 03:13 by Jt Leavitt MD) C3 spinal cord injury C4 spinal cord injury Hypertension Hyperlipidemia Gastroesophageal reflux disease CVA (cerebral vascular accident) Diabetes Surgical History History of carotid endarterectomy History of coronary artery stent placement No pertinent past surgical history Family History Mother Cancer Father Lung disease Hyperlipidemia Brother Lupus Social History household members: other Smoking Status: Current every day smoker alcohol intake: former substance use type: does not use additional social history: He currently resides in He currently resides in [facility]. Exam Initial Vital Signs Initial Vital Signs: Vital Signs Temperature 97.5 F L 05/06/23 21:16 Pulse Rate 94 H 05/06/23 21:16 Respiratory Rate 18 05/06/23 21:16 Blood Pressure 106/45 L 05/06/23 21:16 Pulse Oximetry 93 05/06/23 21:16 Oxygen Delivery Method Room Air 05/06/23 21:16 Const General: cooperative, comfortable, disheveled and No ill appearing HENMT Head: normal to inspection, normocephalic and atraumatic Ears: external ears normal Nose: external nose normal Face and sinus: normal facial exam Eyes General: Yes appearance normal, both eyes and all related structures Neck Neck: normal visual inspection Chest Chest: normal inspection of the chest Resp Effort & Inspection: normal respiratory effort, able to speak in complete sentences, no cough, no respiratory distress, no stridor and no tracheal deviation Cardio Rate: regular rate Rhythm: regular rhythm GI Inspection: normal to inspection Other: Exam deferred Back/Spine/Pelvis Back: normal to inspection Skin General: no rashes or lesions noted Neuro General: patient alert, patient awake and moves all extremities Extrem Other: Right AKA Psych Appearance: grossly normal Course Course Course Narrative: See MDM Orders Ordered: ED Orders 05/06/23 20:50 Urinalysis and Microscopic Stat 05/06/23 21:05 CBC Auto Diff [Complete Blood Count AUTO DIFF] Stat CMP [Comprehensive Metabolic Panel] Stat Lipase Stat Type and Screen Stat blood [Packed Cells] Stat 05/07/23 00:20 Hemoglobin and Hematocrit Stat Vital Signs Vital signs: Vital Signs - 8 hr 05/06/23 21:16 05/06/23 22:31 05/06/23 22:38 Temperature 97.5 F L 98.3 F Pulse Rate 94 H 89 88 Respiratory Rate 18 16 Blood Pressure 106/45 L 103/54 L Pulse Oximetry 93 97 Oxygen Delivery Method Room Air 05/06/23 22:39 05/06/23 22:39 05/06/23 22:55 Temperature 98.3 F Pulse Rate 87 89 Respiratory Rate 18 Blood Pressure 103/54 L 112/58 L Pulse Oximetry 97 Oxygen Delivery Method 05/06/23 22:56 05/06/23 22:56 05/06/23 23:00 Temperature Pulse Rate 89 89 Respiratory Rate Blood Pressure 112/58 L Pulse Oximetry 96 95 Oxygen Delivery Method 05/06/23 23:30 05/07/23 00:00 05/07/23 00:05 Temperature Pulse Rate 84 81 84 Respiratory Rate Blood Pressure Pulse Oximetry 97 97 98 Oxygen Delivery Method 05/07/23 00:05 05/07/23 00:06 05/07/23 00:30 Temperature 98.3 F Pulse Rate 85 82 Respiratory Rate 16 Blood Pressure 104/55 L 104/55 L Pulse Oximetry 97 Oxygen Delivery Method 05/07/23 01:00 05/07/23 01:05 05/07/23 01:05 Temperature Pulse Rate 80 83 Respiratory Rate Blood Pressure 105/58 L Pulse Oximetry 99 99 Oxygen Delivery Method 05/07/23 01:10 05/07/23 01:26 05/07/23 01:27 Temperature 98.3 F 98.3 F Pulse Rate 81 82 Respiratory Rate 16 16 Blood Pressure 105/58 L 110/59 L 110/59 L Pulse Oximetry Oxygen Delivery Method 05/07/23 01:27 05/07/23 01:30 05/07/23 02:00 Temperature Pulse Rate 83 82 81 Respiratory Rate Blood Pressure Pulse Oximetry 99 99 100 Oxygen Delivery Method 05/07/23 02:20 05/07/23 02:20 05/07/23 02:24 Temperature 98.5 F Pulse Rate 85 86 Respiratory Rate 18 Blood Pressure 129/62 129/62 Pulse Oximetry 93 Oxygen Delivery Method MDM - Abdominal Pain Differential Diagnosis Differential diagnosis: Likely abdominal pain, constipation and other (anemia of chronic disease) Lab Data Lab results narrative: Anemia, leukocytosis noted. 05/07/23 00:20 05/06/23 21:05 Labs: Lab Results 05/06/23 05/07/23 Range/Units 21:05 00:20 WBC 15.7 H (4.5-11.0) X10^3/uL RBC 3.57 L (4.5-5.9) X10^6/uL Hgb 5.4 L* 6.2 L* (13.5-17.5) g/dL Hct 18.8 L* 20.5 L* (41-53) % MCV 52.6 L (80-100) fL MCH 15.3 L (26-34) PG MCHC 29.0 L (30-36) % RDW 19.1 H (11.6-14.8) % Plt Count 396 (150-400) X10^3/uL Neut % (Auto) 80.1 H (50-75) % Lymph % (Auto) 7.6 L (25-40) % [place] % (Auto) 11.7 (3-14) % Eos % (Auto) 0.3 L (2-4) % Baso % (Auto) 0.3 (0-2) % Neut # (Auto) 18997 H (6725-4911) /uL Lymph # (Auto) 1200 (6774-8329) /uL [place] # (Auto) 1800 H (0-900) /uL Eos # (Auto) 0 (0-450) /uL Baso # (Auto) 0 (0-100) /uL RBC Morphology See below Hypochromasia 3+ H Anisocytosis 2+ H Microcytosis 2+ H Target Cells 1+ H Ovalocytes 1+ H Sodium 131 L (137-145) mmol/L Potassium 4.0 (3.4-5.1) mmol/L Chloride 92 L (98-107) mmol/L Carbon Dioxide 29 (22-32) mmol/L BUN 23 H (9-20) mg/dL Creatinine 0.92 (0.66-1.25) mg/dL Estimated GFR > 60 (>60) mL/min BUN/Creatinine Ratio 25.0 H (6-22) Glucose 169 H (80-110) mg/dL Calcium 8.8 (8.4-10.2) mg/dL Total Bilirubin 0.5 (0.2-1.3) mg/dL AST TNP ALT 25 (<50) IU/L Alkaline Phosphatase 128 H (38-126) U/L Total Protein 7.3 (6.3-8.2) g/dL Albumin 3.7 (3.5-5.0) g/dL Globulin 3.6 (1.7-4.1) g/dL Albumin/Globulin Ratio 1.0 (1.0-2.8) Lipase 15 L (23-300) U/L Blood Type O Negative Antibody Screen Negative Crossmatch See Detail MDM Narrative Medical decision making narrative: Patient presents with history of chronic abdominal pain per primary care provider and concern for blood transfusion given recent, routine labs showing significant anemia. Current vital signs are within normal limits/non actionable. Patient is afebrile. Hemoglobin at 5.4 and 1 unit of packed red blood cells given after consent. Repeat H and H shows improved hemoglobin/hematocrit but another unit of packed red blood cells is warranted. Patient reports feeling much better. Leukocytosis noted patient has no signs of sepsis or other complaints stating that he feels much better after receiving blood and states that abdominal pain reported per primary care provider has improved after recent bowel movements. Patient is stable and discharged back into the care of assisted living facility. Ambulance transport warranted due to contractures, right AKA. Patient is stable at the time of discharge back to assisted living facility. Return precautions given. PCP follow-up recommended within 1 week. Discharge Plan Departure Patient Disposition: Assisted Living Clinical Impression: Anemia Qualifiers: Anemia type: unspecified type Qualified Code(s): D64.9 - Anemia, unspecified Instructions: Anemia Prescriptions: Continued atorvastatin 80 MG tablet 80 mg PO BEDTIME Qty: 0 clopidogrel 75 MG tablet 75 mg PO DAILY Qty: 0 levothyroxine 50 MCG tablet 50 mcg PO QPM Qty: 0 acetaminophen 325 MG tablet 1,000 mg PO TID PRN (Reason: pain/fever) Qty: 0 omeprazole 20 MG capsule,delayed release(DR/EC) 40 mg PO DAILY Qty: 0 tamsulosin 0.4 mg capsule 0.4 mg PO BEDTIME sertraline 50 mg tablet 50 mg PO DAILY Xtampza ER 18 mg cap,sprinkl,ER12hr(DONT CRUSH) 18 mg PO BID alum-mag hydroxide-simeth 200-200-20 mg/5 mL Suspension 10 ml PO DAILY PRN (Reason: Heartburn) Rx Instructions: 10-20mls lubiprostone [Amitiza] 24 mcg capsule 24 mcg PO BID aspirin 81 mg tablet,delayed release (DR/EC) 81 mg PO DAILY naloxone 0.4 mg/mL solution 0.4 mg IM Q15-20M PRN (Reason: Opioid Overdose) Qty: 0 0RF bisacodyl 10 MG suppository 10 mg [place] DAILY PRN (Reason: Constipation) Qty: 0 0RF polyethylene glycol 3350 17 gram/dose powder 17 g PO DAILY PRN (Reason: Constipation) Qty: 0 0RF oxycodone 5 mg tablet 20 mg PO Q4H PRN (Reason: pain) 7 Days Qty: 40 0RF Rx Instructions: hold if too sedated lorazepam [Ativan] 1 mg tablet 1 mg PO TID PRN (Reason: nausea and vomiting) Qty: 10 0RF ketorolac 10 mg tablet 10 mg PO Q6H PRN (Reason: pain) Qty: 14 0RF Rx Instructions: for 5 days mirtazapine 15 mg Tablet 15 mg PO BEDTIME fluticasone propionate 50 mcg/actuation [place],Suspension 1 spray INTRANASAL BID cholecalciferol (vitamin D3) 1,000 unit Capsule 2,000 unit PO DAILY hydroxyzine pamoate 25 mg Capsule 25 - 50 mg PO Q6H PRN (Reason: pain/spasms) ondansetron 4 mg Tablet,Disintegrating 4 - 8 mg PO Q4H PRN (Reason: Nausea) Patient Comments: 1 - 2 prn nausea Glucagon Emergency Kit (human) 1 mg Recon Soln 1 mg IM PRN MDD ` PRN (Reason: blood glucose <60) duloxetine 60 mg capsule,delayed release(DR/EC) 60 mg PO BEDTIME nystatin 100,000 unit/gram Cream 1 applic TOPICAL BID PRN (Reason: yeast) furosemide 80 mg Tablet 80 mg PO QAM lorazepam 1 mg Tablet 1 mg PO BEDTIME PRN (Reason: Insomnia) docusate sodium 100 mg Tablet 200 mg PO TID bisacodyl 5 mg Tablet 5 - 10 mg PO DAILY PRN (Reason: Constipation) propylene glycol-glycerin 1-0.3 % Drops 1 drp OPHTHALMIC (EYE) Q1H PRN (Reason: Dry Eyes) insulin glargine [Lantus Solostar U-100 Insulin] 100 unit/mL (3 mL) Insulin Pen 17 unit SUBCUT BEDTIME sennosides [senna] 8.6 mg Tablet 17.2 mg PO BID metoclopramide HCl 5 mg/5 mL Solution 10 mg PO QAC Rx Instructions: before meals for chronic nausea magnesium hydroxide [Milk of Magnesia] 400 mg/5 mL Suspension 30 ml PO DAILY PRN (Reason: Constipation) oxymetazoline 0.05 % [place],Non-Aerosol 2 spray INTRANASAL Q12H PRN (Reason: nosebleed) cefdinir 300 mg capsule 300 mg PO BID Qty: 20 0RF cefdinir 300 mg capsule 300 mg PO BID Qty: 20 0RF insulin aspart U-100 [Novolog FlexPen U-100 Insulin] 100 unit/mL insulin pen See Rx Instructions .ROUTE .COMPLEX Rx Instructions: Per [facility] med list, insulin instructions are per Ray who directs his own dosing of insulin based on what he is about to consume w/ meals Referrals: Eli Montanez ARNP [Primary Care Provider] - As soon as possible SNF Discharge Plan Transfer to: [facility] Transportation: Ambulance The receiving facility has agreed to accept transfer and provide medical treatment.: Yes Discharge Health Status Date verified: 05/07/23
[2023-05-06 21:29] LABS: Add Manual Diff / Slide Review NO; Basophils Absolute Auto 0 /uL (0-100); Basophils Percent Auto 0.3 % (0-2); Eosinophils Absolute Auto 0 /uL (0-450); Eosinophils Percent Auto 0.3 % (2-4); Lymphocytes Absolute Auto 1200 /uL (1100-4500); Lymphocytes Percent Auto 7.6 % (25-40); Mean Corpuscular Hemoglobin 15.3 PG (26-34); Mean Corpuscular Volume 52.6 fL (80-100); Monocytes Absolute Auto 1800 /uL (0-900); Monocytes Percent Auto 11.7 % (3-14); Neutrophils Absolute Auto 12600 /uL (1500-7000); Neutrophils Percent Auto 80.1 % (50-75); Platelet Count 396 X10^3/uL (150-400); Red Blood Cell Count 3.57 X10^6/uL (4.5-5.9); Red Cell Distribution Width 19.1 % (11.6-14.8); White Blood Cell Count 15.7 X10^3/uL (4.5-11.0)
[2023-05-06 21:33] LABS: Alanine Aminotransferase 25 IU/L (<50); Albumin 3.7 g/dL (3.5-5.0); Alkaline Phosphatase 128 U/L (38-126); Bilirubin Total 0.5 mg/dL (0.2-1.3); Blood Urea Nitrogen 23 mg/dL (9-20); Calcium 8.8 mg/dL (8.4-10.2); Carbon Dioxide 29 mmol/L (22-32); Chloride 92 mmol/L (98-107); Estimated Glomerular Filt Rate > 60 mL/min (>60); Globulin 3.6 g/dL (1.7-4.1); Glucose 169 mg/dL (80-110); HEMOLYSIS < 15 (0-50); Lipase 15 U/L (23-300); Sodium 131 mmol/L (137-145); Total Protein 7.3 g/dL (6.3-8.2)
[2023-05-06 21:34] LABS: Hematocrit 18.8 % (41-53); Hemoglobin 5.4 g/dL (13.5-17.5)
[2023-05-06 21:47] LABS: Anisocytosis 2+; Hypochromasia 3+; Microcytosis 2+; Ovalocytes 1+; Target Cells 1+
[2023-05-07] VITALS (15 sets, daily range): BP systolic 104–129; BP diastolic 55–62; PULSE 80–86; RESP 16–18; TEMP 36.8–36.9; O2SAT 92–100
[2023-05-07 00:36] LABS: Hematocrit 20.5 % (41-53); Hemoglobin 6.2 g/dL (13.5-17.5)
--- NOTE | 2023-05-07 01:51 | PC.NURSE ---
Dr. Leavitt at bedside w/ pt
--- NOTE | 2023-05-07 02:37 | PC.NURSE ---
Report called to nurse at [facility]
--- NOTE | 2023-05-07 02:46 | PC.NURSE ---
pt sleeping, easily arousable to light verbal stimuli; PIV removed, pt verbalized understanding of poc, discharge.
[2023-05-07 15:25] LABS: Aspartate Aminotransferase 42 IU/L (17-59)
== END 2023-05-07 03:20 ==
PROVIDERS: Emergency Provider Emergency Medicine; Family Provider Nurse Practitioner Family; PCP Nurse Practitioner Family
DX: D64.9 Anemia, unspecified (principal); K59.00 Constipation, unspecified; Z79.899 Other long term (current) drug therapy; E11.9 Type 2 diabetes mellitus without complications; R53.83 Other fatigue; R53.1 Weakness
CPT/HCPCS: 36415; 36430; 80053; 83690; 85007; 85014; 85018; 85025; 86850; 86900; 86901; 99284; P9016

== ENCOUNTER → 2023-05-10 09:34 | Outpatient (CLI) | payer MEDICARE, MEDICAID, SELFPAY ==
[2022-12-01 13:43] VITALS: BMI 21.7
== END ==
LOC: WC 09:35
PROVIDERS: Family Provider Nurse Practitioner Family; PCP Nurse Practitioner Family; Referring Provider Nurse Practitioner Family; Visit Provider Surgery
DX: L89.153 Pressure ulcer of sacral region, stage 3 (principal); E10.628 Type 1 diabetes mellitus with other skin complications; G81.90 Hemiplegia, unspecified affecting unspecified side; I25.5 Ischemic cardiomyopathy; I73.9 Peripheral vascular disease, unspecified; D64.9 Anemia, unspecified; F17.210 Nicotine dependence, cigarettes, uncomplicated
CPT/HCPCS: 11042; 99212; 99213

== ENCOUNTER → 2023-05-18 07:36 | Outpatient (ROUT) | payer MEDICARE, MEDICAID, SELFPAY ==
[2022-12-01 13:43] VITALS: BMI 21.7
[2023-05-18 08:20] LABS: Add Manual Diff / Slide Review YES; Hematocrit 25.7 % (41-53); Hemoglobin 8.1 g/dL (13.5-17.5); Mean Corpuscular HGB Conc 31.5 % (30-36); Mean Corpuscular Hemoglobin 19.5 PG (26-34); Mean Corpuscular Volume 61.8 fL (80-100); Platelet Count 403 X10^3/uL (150-400); Red Blood Cell Count 4.15 X10^6/uL (4.5-5.9); Red Cell Distribution Width 32.4 % (11.6-14.8); White Blood Cell Count 12.2 X10^3/uL (4.5-11.0)
[2023-05-18 08:21] LABS: BUN Creatinine Ratio 34.8 (6-22); Blood Urea Nitrogen 23 mg/dL (9-20); Calcium 8.8 mg/dL (8.4-10.2); Carbon Dioxide 32 mmol/L (22-32); Chloride 93 mmol/L (98-107); Estimated Glomerular Filt Rate > 60 mL/min (>60); Glucose 76 mg/dL (80-110); HEMOLYSIS < 15 (0-50); Potassium 4.2 mmol/L (3.4-5.1); Sodium 130 mmol/L (137-145)
[2023-05-18 08:40] LABS: Carcinoembryonic Antigen 2.3 ng/mL (0.1-3.0)
[2023-05-18 10:20] LABS: Neutrophils Absolute Manual 10492 /uL (3000-5900); Total Cells Counted 100
[2023-05-18 10:21] LABS: Anisocytosis 2+; Hypochromasia 2+; Microcytosis 2+; Target Cells 1+
== END ==
PROVIDERS: Family Provider Nurse Practitioner Family; PCP Nurse Practitioner Family; Visit Provider Internal Medicine
DX: I50.9 Heart failure, unspecified (principal); K21.9 Gastro-esophageal reflux disease without esophagitis; E10.3599 Type 1 diabetes mellitus with proliferative diabetic retinopathy without macular edema, unspecified eye; E10.21 Type 1 diabetes mellitus with diabetic nephropathy; E03.9 Hypothyroidism, unspecified; F41.9 Anxiety disorder, unspecified
CPT/HCPCS: 36415; 80048; 82378; 85007; 85025

== ENCOUNTER → 2023-05-23 10:38 | Outpatient (ROUT) | payer MEDICARE, MEDICAID, SELFPAY ==
[2022-12-01 13:43] VITALS: BMI 21.7
[2023-05-23 11:34] LABS: Appearance Urine UA CLOUDY
[2023-05-23 11:35] LABS: Color Urine UA RED
[2023-05-23 11:36] LABS: Bacteria Urine Moderate (10-30); Culture Indicated Urine Specimen Cultured; RBC Urine >100/HPF (0-5/HPF); Squamous Epithelial Cell Urine 0-1 /HPF (0-5/HPF); Triple Phosphate Crystal Urine Occasional; Urine Volume Low Vol <10mL (spun); WBC Urine 5-10/HPF (0-5/HPF)
== END ==
PROVIDERS: Family Provider Nurse Practitioner Family; PCP Nurse Practitioner Family; Visit Provider Internal Medicine
DX: R31.9 Hematuria, unspecified (principal); R30.0 Dysuria
CPT/HCPCS: 81001; 87077; 87086; 87186

== ENCOUNTER → 2023-05-24 09:36 | Outpatient (CLI) | payer MEDICARE, MEDICAID, SELFPAY ==
[2022-12-01 13:43] VITALS: BMI 21.7
== END ==
LOC: WC 09:36
PROVIDERS: Family Provider Nurse Practitioner Family; PCP Nurse Practitioner Family; Referring Provider Nurse Practitioner Family; Visit Provider Surgery
DX: L89.153 Pressure ulcer of sacral region, stage 3 (principal); E10.628 Type 1 diabetes mellitus with other skin complications; Z99.2 Dependence on renal dialysis; G81.90 Hemiplegia, unspecified affecting unspecified side; D64.9 Anemia, unspecified; I25.5 Ischemic cardiomyopathy
CPT/HCPCS: 11042

== ENCOUNTER → 2023-06-01 17:01 | Outpatient (ROUT) | payer MEDICARE, MEDICAID, SELFPAY ==
[2022-12-01 13:43] VITALS: BMI 21.7
[2023-06-01 17:27] LABS: Add Manual Diff / Slide Review NO; BUN Creatinine Ratio 21.1 (6-22); Basophils Absolute Auto 0 /uL (0-100); Basophils Percent Auto 0.7 % (0-2); Blood Urea Nitrogen 19 mg/dL (9-20); Calcium 8.5 mg/dL (8.4-10.2); Carbon Dioxide 28 mmol/L (22-32); Chloride 93 mmol/L (98-107); Eosinophils Absolute Auto 400 /uL (0-450); Eosinophils Percent Auto 5.7 % (2-4); Estimated Glomerular Filt Rate > 60 mL/min (>60); Glucose 245 mg/dL (80-110); HEMOLYSIS < 15 (0-50); Hematocrit 21.6 % (41-53); Lymphocytes Absolute Auto 800 /uL (1100-4500); Lymphocytes Percent Auto 11.8 % (25-40); Mean Corpuscular HGB Conc 32.1 % (30-36); Mean Corpuscular Hemoglobin 20.3 PG (26-34); Mean Corpuscular Volume 63.4 fL (80-100); Monocytes Absolute Auto 900 /uL (0-900); Monocytes Percent Auto 13.8 % (3-14); Neutrophils Absolute Auto 4500 /uL (1500-7000); Platelet Count 416 X10^3/uL (150-400); Potassium 4.5 mmol/L (3.4-5.1); Red Blood Cell Count 3.41 X10^6/uL (4.5-5.9); Red Cell Distribution Width 32.5 % (11.6-14.8); Sodium 130 mmol/L (137-145); White Blood Cell Count 6.7 X10^3/uL (4.5-11.0)
[2023-06-01 18:03] LABS: Hemoglobin 6.9 g/dL (13.5-17.5)
[2023-06-01 18:11] LABS: Anisocytosis 3+
== END ==
PROVIDERS: Family Provider Nurse Practitioner Family; PCP Nurse Practitioner Family; Visit Provider Internal Medicine
DX: D64.9 Anemia, unspecified (principal)
CPT/HCPCS: 80048; 85025

== ENCOUNTER → 2023-06-02 10:15 | Outpatient (ROUT) | payer MEDICARE, MEDICAID, SELFPAY ==
[2022-12-01 13:43] VITALS: BMI 21.7
[2023-06-02 10:29] LABS: Add Manual Diff / Slide Review NO; Basophils Absolute Auto 100 /uL (0-100); Basophils Percent Auto 0.7 % (0-2); Eosinophils Absolute Auto 500 /uL (0-450); Eosinophils Percent Auto 5.7 % (2-4); Hematocrit 22.3 % (41-53); Hemoglobin 7.1 g/dL (13.5-17.5); Lymphocytes Absolute Auto 1200 /uL (1100-4500); Lymphocytes Percent Auto 14.9 % (25-40); Mean Corpuscular HGB Conc 31.6 % (30-36); Mean Corpuscular Volume 63.3 fL (80-100); Monocytes Absolute Auto 700 /uL (0-900); Monocytes Percent Auto 8.8 % (3-14); Neutrophils Absolute Auto 5600 /uL (1500-7000); Neutrophils Percent Auto 69.9 % (50-75); Platelet Count 430 X10^3/uL (150-400); Red Blood Cell Count 3.53 X10^6/uL (4.5-5.9); White Blood Cell Count 8.1 X10^3/uL (4.5-11.0)
[2023-06-02 10:34] LABS: Iron 25 ug/dL (49-181)
[2023-06-02 10:43] LABS: Anisocytosis 3+; Hypochromasia 1+; Microcytosis 2+
[2023-06-02 11:10] LABS: Ferritin 5 ng/mL (18-464)
== END ==
PROVIDERS: Family Provider Nurse Practitioner Family; PCP Nurse Practitioner Family; Visit Provider Internal Medicine
DX: D64.9 Anemia, unspecified (principal)
CPT/HCPCS: 82728; 83540; 85025

== ENCOUNTER 2023-06-02 15:34 | Emergency (ER) | payer MEDICARE, MEDICAID, SELFPAY ==
[2022-12-01 13:43] VITALS: BMI 21.7
[2023-06-02] VITALS (28 sets, daily range): BP systolic 113–155; BP diastolic 57–72; PULSE 79–93; RESP 12–24; TEMP 36.4–36.7; O2SAT 93–100; BMI 21.7
--- NOTE | 2023-06-02 16:04 | PC.NURSE ---
Pt was brought to ED via EMS from [facility]. Dr Parham sent pt to ED for further evaluation of acute blood loss, anemia and abd pain. Pt c/o nausea and dizziness. Denies cp or sob or having bloody stools. Pt has hx of GI bleed and needing blood transfusions and stroke. Labwork done today Hgb 7.1, Hct 22, Fe 25, Ferritin 5. pt a&ox4.
[2023-06-02 16:10] LABS: INR 1.1 (0.9-1.3); Prothrombin Time 13.1 SECONDS (9.4-12.5)
[2023-06-02 16:12] LABS: PTT Partial Thromboplastin Tim 37 SECONDS (25.1-36.5)
[2023-06-02 16:14] LABS: Alanine Aminotransferase 21 IU/L (<50); Albumin 3.8 g/dL (3.5-5.0); Alkaline Phosphatase 138 U/L (38-126); Aspartate Aminotransferase 34 IU/L (17-59); BUN Creatinine Ratio 26.1 (6-22); Bilirubin Total 0.4 mg/dL (0.2-1.3); Blood Urea Nitrogen 23 mg/dL (9-20); Calcium 9.1 mg/dL (8.4-10.2); Carbon Dioxide 32 mmol/L (22-32); Chloride 93 mmol/L (98-107); Estimated Glomerular Filt Rate > 60 mL/min (>60); Glucose 72 mg/dL (80-110); HEMOLYSIS < 15 (0-50); Potassium 3.9 mmol/L (3.4-5.1); Sodium 132 mmol/L (137-145); Total Protein 7.8 g/dL (6.3-8.2)
[2023-06-02 16:15] LABS: Add Manual Diff / Slide Review NO; Basophils Absolute Auto 100 /uL (0-100); Eosinophils Absolute Auto 400 /uL (0-450); Eosinophils Percent Auto 5.3 % (2-4); Hematocrit 23.7 % (41-53); Hemoglobin 7.6 g/dL (13.5-17.5); Lymphocytes Absolute Auto 1300 /uL (1100-4500); Lymphocytes Percent Auto 17.6 % (25-40); Mean Corpuscular HGB Conc 32.2 % (30-36); Mean Corpuscular Hemoglobin 20.4 PG (26-34); Mean Corpuscular Volume 63.2 fL (80-100); Monocytes Absolute Auto 900 /uL (0-900); Monocytes Percent Auto 12.1 % (3-14); Neutrophils Absolute Auto 4800 /uL (1500-7000); Platelet Count 456 X10^3/uL (150-400); Red Blood Cell Count 3.75 X10^6/uL (4.5-5.9); Red Cell Distribution Width 32.8 % (11.6-14.8); White Blood Cell Count 7.5 X10^3/uL (4.5-11.0)
[2023-06-02] MEDS: PANTOPRAZOLE 40 MG VIAL 80 MG IV (16:16)
--- NOTE | 2023-06-02 16:31 | ED.GIBLEED ---
HPI - GI Bleed General Chief complaint: GI Bleed Stated complaint: needs blood transfusion Time Seen by Provider: 06/02/23 16:31 Source: patient and EMS Mode of arrival: EMS Related Data Home Medications Medication Instructions Recorded Confirmed acetaminophen 325 mg tablet 1,000 mg PO TID PRN pain/fever ##0 06/29/17 12/01/22 atorvastatin 80 mg tablet 80 mg PO BEDTIME ##0 06/29/17 12/01/22 clopidogrel 75 mg tablet 75 mg PO DAILY ##0 06/29/17 12/01/22 levothyroxine 50 mcg tablet 50 mcg PO QPM ##0 06/29/17 12/01/22 omeprazole 20 mg capsule,delayed 40 mg PO DAILY ##0 06/29/17 12/01/22 release insulin aspart U-100 100 unit/mL See Rx Instructions .Route .COMPLEX 11/25/17 12/01/22 (3 mL) subcutaneous pen (Novolog FlexPen U-100 Insulin aspart) cholecalciferol (vitamin D3) 25 2,000 unit PO DAILY 08/13/18 12/01/22 mcg (1,000 unit) capsule fluticasone propionate 50 1 spray intranasal BID 08/13/18 12/01/22 mcg/actuation nasal spray,suspension hydroxyzine pamoate 25 mg capsule 25 - 50 mg PO Q6H PRN pain/spasms 08/13/18 12/01/22 mirtazapine 15 mg tablet 15 mg PO BEDTIME 08/13/18 12/01/22 ondansetron 4 mg disintegrating 4 - 8 mg PO Q4H PRN Nausea 08/13/18 12/01/22 tablet duloxetine 60 mg capsule,delayed 60 mg PO BEDTIME 03/02/19 12/01/22 release glucagon (human recombinant) 1 mg 1 mg IM PRN PRN blood glucose <60 03/02/19 12/01/22 solution for injection (Glucagon Emergency Kit) nystatin 100,000 unit/gram topical 1 applic topical BID PRN yeast 03/02/19 12/01/22 cream aluminum-mag hydroxide-simethicone 10 ml PO DAILY PRN Heartburn 07/04/21 12/01/22 200 mg-200 mg-20 mg/5 mL oral susp aspirin 81 mg tablet,delayed 81 mg PO DAILY 07/04/21 12/01/22 release lubiprostone 24 mcg capsule 24 mcg PO BID 07/04/21 12/01/22 (Amitiza) oxycodone myristate 18 mg capsule 18 mg PO BID 07/04/21 12/01/22 sprinkle extended release 12hr(DON'T CRUSH) (Xtampza ER) sertraline 50 mg tablet 50 mg PO DAILY 07/04/21 12/01/22 tamsulosin 0.4 mg capsule 0.4 mg PO BEDTIME 07/04/21 12/01/22 bisacodyl 5 mg tablet 5 - 10 mg PO DAILY PRN Constipation 12/01/22 12/01/22 docusate sodium 100 mg tablet 200 mg PO TID 12/01/22 12/01/22 furosemide 80 mg tablet 80 mg PO QAM 12/01/22 12/01/22 insulin glargine 100 unit/mL (3 17 unit SUBCUT BEDTIME 12/01/22 12/01/22 mL) subcutaneous pen (Lantus Solostar U-100 Insulin) lorazepam 1 mg tablet 1 mg PO BEDTIME PRN Insomnia 12/01/22 12/01/22 magnesium hydroxide 400 mg/5 mL 30 ml PO DAILY PRN Constipation 12/01/22 12/01/22 oral suspension (Milk of Magnesia) metoclopramide HCl 5 mg/5 mL oral 10 mg PO QAC 12/01/22 12/01/22 solution oxymetazoline 0.05 % nasal spray 2 spray intranasal Q12H PRN 12/01/22 12/01/22 nosebleed propylene glycol 1 %-glycerin 0.3 1 drp ophthalmic (eye) Q1H PRN Dry 12/01/22 12/01/22 % eye drops Eyes sennosides 8.6 mg tablet (senna) 17.2 mg PO BID 12/01/22 12/01/22 Previous Rx's Medication Instructions Recorded bisacodyl 10 mg rectal suppository 10 mg SD DAILY PRN Constipation #0 07/07/21 ea naloxone 0.4 mg/mL injection 0.4 mg IM Q15-20M PRN Opioid 07/07/21 solution Overdose #0 mL oxycodone 5 mg tablet 20 mg (4 x 5 mg) PO Q4H PRN pain 7 07/07/21 days #40 tabs polyethylene glycol 3350 17 17 g PO DAILY PRN Constipation #0 07/07/21 gram/dose oral powder grams lorazepam 1 mg tablet (Ativan) 1 mg PO TID PRN nausea and 07/09/22 vomiting #10 tabs ketorolac 10 mg tablet 10 mg PO Q6H PRN pain #14 tabs 11/28/22 cefdinir 300 mg capsule 300 mg PO BID #20 caps 01/05/23 cefdinir 300 mg capsule 300 mg PO BID #20 caps 01/05/23 Allergies Allergy/AdvReac Type Severity Reaction Status Date / Time amitriptyline Allergy Verified 12/01/22 07:38 pollen extracts Allergy Verified 12/01/22 07:38 codeine [CODEINE] AdvReac Unknown nausea Verified 12/01/22 07:38 Patient History Medical History (Updated 05/07/23 @ 03:13 by Jt Leavitt MD) C3 spinal cord injury C4 spinal cord injury Hypertension Hyperlipidemia Gastroesophageal reflux disease CVA (cerebral vascular accident) Diabetes Surgical History History of carotid endarterectomy History of coronary artery stent placement No pertinent past surgical history Family History Mother Cancer Father Lung disease Hyperlipidemia Brother Lupus Social History household members: other Smoking Status: Current every day smoker alcohol intake: former substance use type: does not use additional social history: He currently resides in He currently resides in [facility]. Smoking Status: Current every day smoker tobacco type: cigarettes alcohol intake frequency: other Substance Use Type: does not use Exam Initial Vital Signs Initial Vital Signs: Vital Signs Temperature 98 F 06/02/23 15:50 Pulse Rate 89 06/02/23 15:50 Respiratory Rate 20 06/02/23 15:50 Blood Pressure 134/63 06/02/23 15:50 Pulse Oximetry 99 06/02/23 15:50 Oxygen Delivery Method Room Air 06/02/23 15:50 Course Orders Ordered: ED Orders 06/02/23 15:45 Complete Blood Count AUTO DIFF Stat Comprehensive Metabolic Panel Stat PTT Partial Thromboplastin Kyle Stat Prothrombin Time INR Stat Type and Screen Stat 06/02/23 15:58 EKG-12 Lead Stat Ondansetron HCl (Ondansetron 4 Mg/2 Ml Inj) 4 mg IV NOW PRN PRN Reason: Nausea And Vomiting Ondansetron HCl (Ondansetron 4 Mg Odt) 4 mg SL NOW PRN PRN Reason: Nausea And Vomiting Discontinued Medications Pantoprazole Sodium (Pantoprazole 40 Mg Vial) 80 mg IV NOW ONE Stop: 06/02/23 15:59 Last Admin: 06/02/23 16:16 Dose: 80 mg Documented By: JUAN R Vital Signs Vital signs: Vital Signs - 8 hr 06/02/23 15:50 Temperature 98 F Pulse Rate 89 Respiratory Rate 20 Blood Pressure 134/63 Pulse Oximetry 99 Oxygen Delivery Method Room Air MDM - GI Bleed Lab Data 06/02/23 15:45 06/02/23 15:45 Labs: Lab Results 06/02/23 Range/Units 15:45 WBC 7.5 (4.5-11.0) X10^3/uL RBC 3.75 L (4.5-5.9) X10^6/uL Hgb 7.6 L (13.5-17.5) g/dL Hct 23.7 L (41-53) % MCV 63.2 L (80-100) fL MCH 20.4 L (26-34) PG MCHC 32.2 (30-36) % RDW 32.8 H (11.6-14.8) % Plt Count 456 H (150-400) X10^3/uL Neut % (Auto) 64.0 (50-75) % Lymph % (Auto) 17.6 L (25-40) % Martin % (Auto) 12.1 (3-14) % Eos % (Auto) 5.3 H (2-4) % Baso % (Auto) 1.0 (0-2) % Neut # (Auto) 4800 (0138-2830) /uL Lymph # (Auto) 1300 (9445-3730) /uL Martin # (Auto) 900 (0-900) /uL Eos # (Auto) 400 (0-450) /uL Baso # (Auto) 100 (0-100) /uL PT 13.1 H (9.4-12.5) SECONDS INR 1.1 (0.9-1.3) APTT 37 H (25.1-36.5) SECONDS Sodium 132 L (137-145) mmol/L Potassium 3.9 (3.4-5.1) mmol/L Chloride 93 L (98-107) mmol/L Carbon Dioxide 32 (22-32) mmol/L BUN 23 H (9-20) mg/dL Creatinine 0.88 (0.66-1.25) mg/dL Estimated GFR > 60 (>60) mL/min BUN/Creatinine Ratio 26.1 H (6-22) Glucose 72 L D (80-110) mg/dL Calcium 9.1 (8.4-10.2) mg/dL Total Bilirubin 0.4 (0.2-1.3) mg/dL AST 34 (17-59) IU/L ALT 21 (<50) IU/L Alkaline Phosphatase 138 H (38-126) U/L Total Protein 7.8 (6.3-8.2) g/dL Albumin 3.8 (3.5-5.0) g/dL Globulin 4.0 (1.7-4.1) g/dL Albumin/Globulin Ratio 1.0 (1.0-2.8) Discharge Plan Departure Prescriptions: No Action atorvastatin 80 MG tablet 80 mg PO BEDTIME Qty: 0 clopidogrel 75 MG tablet 75 mg PO DAILY Qty: 0 levothyroxine 50 MCG tablet 50 mcg PO QPM Qty: 0 acetaminophen 325 MG tablet 1,000 mg PO TID PRN (Reason: pain/fever) Qty: 0 omeprazole 20 MG capsule,delayed release(DR/EC) 40 mg PO DAILY Qty: 0 tamsulosin 0.4 mg capsule 0.4 mg PO BEDTIME sertraline 50 mg tablet 50 mg PO DAILY Xtampza ER 18 mg cap,sprinkl,ER12hr(DONT CRUSH) 18 mg PO BID alum-mag hydroxide-simeth 200-200-20 mg/5 mL Suspension 10 ml PO DAILY PRN (Reason: Heartburn) Rx Instructions: 10-20mls lubiprostone [Amitiza] 24 mcg capsule 24 mcg PO BID aspirin 81 mg tablet,delayed release (DR/EC) 81 mg PO DAILY naloxone 0.4 mg/mL solution 0.4 mg IM Q15-20M PRN (Reason: Opioid Overdose) Qty: 0 0RF bisacodyl 10 MG suppository 10 mg SD DAILY PRN (Reason: Constipation) Qty: 0 0RF polyethylene glycol 3350 17 gram/dose powder 17 g PO DAILY PRN (Reason: Constipation) Qty: 0 0RF oxycodone 5 mg tablet 20 mg PO Q4H PRN (Reason: pain) 7 Days Qty: 40 0RF Rx Instructions: hold if too sedated lorazepam [Ativan] 1 mg tablet 1 mg PO TID PRN (Reason: nausea and vomiting) Qty: 10 0RF ketorolac 10 mg tablet 10 mg PO Q6H PRN (Reason: pain) Qty: 14 0RF Rx Instructions: for 5 days mirtazapine 15 mg Tablet 15 mg PO BEDTIME fluticasone propionate 50 mcg/actuation [place],Suspension 1 spray INTRANASAL BID cholecalciferol (vitamin D3) 1,000 unit Capsule 2,000 unit PO DAILY hydroxyzine pamoate 25 mg Capsule 25 - 50 mg PO Q6H PRN (Reason: pain/spasms) ondansetron 4 mg Tablet,Disintegrating 4 - 8 mg PO Q4H PRN (Reason: Nausea) Patient Comments: 1 - 2 prn nausea Glucagon Emergency Kit (human) 1 mg Recon Soln 1 mg IM PRN MDD ` PRN (Reason: blood glucose <60) duloxetine 60 mg capsule,delayed release(DR/EC) 60 mg PO BEDTIME nystatin 100,000 unit/gram Cream 1 applic TOPICAL BID PRN (Reason: yeast) furosemide 80 mg Tablet 80 mg PO QAM lorazepam 1 mg Tablet 1 mg PO BEDTIME PRN (Reason: Insomnia) docusate sodium 100 mg Tablet 200 mg PO TID bisacodyl 5 mg Tablet 5 - 10 mg PO DAILY PRN (Reason: Constipation) propylene glycol-glycerin 1-0.3 % Drops 1 drp OPHTHALMIC (EYE) Q1H PRN (Reason: Dry Eyes) insulin glargine [Lantus Solostar U-100 Insulin] 100 unit/mL (3 mL) Insulin Pen 17 unit SUBCUT BEDTIME sennosides [senna] 8.6 mg Tablet 17.2 mg PO BID metoclopramide HCl 5 mg/5 mL Solution 10 mg PO QAC Rx Instructions: before meals for chronic nausea magnesium hydroxide [Milk of Magnesia] 400 mg/5 mL Suspension 30 ml PO DAILY PRN (Reason: Constipation) oxymetazoline 0.05 % [place],Non-Aerosol 2 spray INTRANASAL Q12H PRN (Reason: nosebleed) cefdinir 300 mg capsule 300 mg PO BID Qty: 20 0RF cefdinir 300 mg capsule 300 mg PO BID Qty: 20 0RF insulin aspart U-100 [Novolog FlexPen U-100 Insulin] 100 unit/mL insulin pen See Rx Instructions .ROUTE .COMPLEX Rx Instructions: Per [facility] med list, insulin instructions are per Ray who directs his own dosing of insulin based on what he is about to consume w/ meals Referrals: Eli Montanez ARNP [Primary Care Provider] -
[2023-06-02 16:45] LABS: Acanthocytes 2+; Anisocytosis 2+; Macrocytosis 1+; Microcytosis 3+
[2023-06-02 16:46] LABS: Stomatocytes 1+
[2023-06-02 16:47] LABS: Hypochromasia 2+; Spherocytes 1+; Target Cells 1+
--- NOTE | 2023-06-02 17:10 | PC.NURSE ---
pt c/o feeling like his blood sugar is low. finger stick BG 35. Pt given OJ. pt a&ox4. dr inman notified. received order for general diet tray and to give pt juice.
--- NOTE | 2023-06-02 17:26 | PC.NURSE ---
Pt received dinner tray from [employer].
--- NOTE | 2023-06-02 18:16 | ED_ITS ---
HPI - GI Bleed General Chief complaint: GI Bleed Stated complaint: needs blood transfusion Time Seen by Provider: 06/02/23 16:31 Source: patient and EMS Mode of arrival: EMS History of Present Illness HPI Narrative: 68-year-old male with history of brittle diabetes, CVA, history of AKA presents from [facility] for we will blood counts. Patient had outpatient labs done that showed hemoglobin was 7.1 he was referred for workup and transfusion in the past. He has a ureteral stent that has not been removed, it was placed in December of 2022 but per patient was not removed for ?insurance issues?. Patient reports abdominal pain, however this is chronic and he states it is no different from his usual. Related Data Home Medications Medication Instructions Recorded Confirmed acetaminophen 325 mg tablet 1,000 mg PO TID PRN pain/fever ##0 06/29/17 12/01/22 atorvastatin 80 mg tablet 80 mg PO BEDTIME ##0 06/29/17 12/01/22 clopidogrel 75 mg tablet 75 mg PO DAILY ##0 06/29/17 12/01/22 levothyroxine 50 mcg tablet 50 mcg PO QPM ##0 06/29/17 12/01/22 omeprazole 20 mg capsule,delayed 40 mg PO DAILY ##0 06/29/17 12/01/22 release insulin aspart U-100 100 unit/mL See Rx Instructions .Route .COMPLEX 11/25/17 12/01/22 (3 mL) subcutaneous pen (Novolog FlexPen U-100 Insulin aspart) cholecalciferol (vitamin D3) 25 2,000 unit PO DAILY 08/13/18 12/01/22 mcg (1,000 unit) capsule fluticasone propionate 50 1 spray intranasal BID 08/13/18 12/01/22 mcg/actuation nasal spray,suspension hydroxyzine pamoate 25 mg capsule 25 - 50 mg PO Q6H PRN pain/spasms 08/13/18 12/01/22 mirtazapine 15 mg tablet 15 mg PO BEDTIME 08/13/18 12/01/22 ondansetron 4 mg disintegrating 4 - 8 mg PO Q4H PRN Nausea 08/13/18 12/01/22 tablet duloxetine 60 mg capsule,delayed 60 mg PO BEDTIME 03/02/19 12/01/22 release glucagon (human recombinant) 1 mg 1 mg IM PRN PRN blood glucose <60 03/02/19 12/01/22 solution for injection (Glucagon Emergency Kit) nystatin 100,000 unit/gram topical 1 applic topical BID PRN yeast 03/02/19 12/01/22 cream aluminum-mag hydroxide-simethicone 10 ml PO DAILY PRN Heartburn 07/04/21 12/01/22 200 mg-200 mg-20 mg/5 mL oral susp aspirin 81 mg tablet,delayed 81 mg PO DAILY 07/04/21 12/01/22 release lubiprostone 24 mcg capsule 24 mcg PO BID 07/04/21 12/01/22 (Amitiza) oxycodone myristate 18 mg capsule 18 mg PO BID 07/04/21 12/01/22 sprinkle extended release 12hr(DON'T CRUSH) (Xtampza ER) sertraline 50 mg tablet 50 mg PO DAILY 07/04/21 12/01/22 tamsulosin 0.4 mg capsule 0.4 mg PO BEDTIME 07/04/21 12/01/22 bisacodyl 5 mg tablet 5 - 10 mg PO DAILY PRN Constipation 12/01/22 12/01/22 docusate sodium 100 mg tablet 200 mg PO TID 12/01/22 12/01/22 furosemide 80 mg tablet 80 mg PO QAM 12/01/22 12/01/22 insulin glargine 100 unit/mL (3 17 unit SUBCUT BEDTIME 12/01/22 12/01/22 mL) subcutaneous pen (Lantus Solostar U-100 Insulin) lorazepam 1 mg tablet 1 mg PO BEDTIME PRN Insomnia 12/01/22 12/01/22 magnesium hydroxide 400 mg/5 mL 30 ml PO DAILY PRN Constipation 12/01/22 12/01/22 oral suspension (Milk of Magnesia) metoclopramide HCl 5 mg/5 mL oral 10 mg PO QAC 12/01/22 12/01/22 solution oxymetazoline 0.05 % nasal spray 2 spray intranasal Q12H PRN 12/01/22 12/01/22 nosebleed propylene glycol 1 %-glycerin 0.3 1 drp ophthalmic (eye) Q1H PRN Dry 12/01/22 12/01/22 % eye drops Eyes sennosides 8.6 mg tablet (senna) 17.2 mg PO BID 12/01/22 12/01/22 Previous Rx's Medication Instructions Recorded bisacodyl 10 mg rectal suppository 10 mg [place] DAILY PRN Constipation #0 07/07/21 ea naloxone 0.4 mg/mL injection 0.4 mg IM Q15-20M PRN Opioid 07/07/21 solution Overdose #0 mL oxycodone 5 mg tablet 20 mg (4 x 5 mg) PO Q4H PRN pain 7 07/07/21 days #40 tabs polyethylene glycol 3350 17 17 g PO DAILY PRN Constipation #0 07/07/21 gram/dose oral powder grams lorazepam 1 mg tablet (Ativan) 1 mg PO TID PRN nausea and 07/09/22 vomiting #10 tabs ketorolac 10 mg tablet 10 mg PO Q6H PRN pain #14 tabs 11/28/22 cefdinir 300 mg capsule 300 mg PO BID #20 caps 01/05/23 cefdinir 300 mg capsule 300 mg PO BID #20 caps 01/05/23 Allergies Allergy/AdvReac Type Severity Reaction Status Date / Time amitriptyline Allergy Verified 12/01/22 07:38 pollen extracts Allergy Verified 12/01/22 07:38 codeine [CODEINE] AdvReac Unknown nausea Verified 12/01/22 07:38 Review of Systems Review of Systems Narrative: Negative except as noted above Patient History Medical History C3 spinal cord injury C4 spinal cord injury Hypertension Hyperlipidemia Gastroesophageal reflux disease CVA (cerebral vascular accident) Diabetes Surgical History History of carotid endarterectomy History of coronary artery stent placement No pertinent past surgical history Family History Mother Cancer Father Lung disease Hyperlipidemia Brother Lupus Social History household members: other Smoking Status: Current every day smoker alcohol intake: former substance use type: does not use additional social history: He currently resides in He currently resides in [facility]. Smoking Status: Current every day smoker tobacco type: cigarettes alcohol intake frequency: other Substance Use Type: does not use Exam Initial Vital Signs Initial Vital Signs: Vital Signs Pulse Rate 90 06/02/23 15:46 Pulse Oximetry 93 06/02/23 15:46 Const: Awake, alert, appears chronically unwell, older than stated age Cardiac: regular rate, regular rhythm RESP: unlabored, clear bilaterally, no wheezing GI: Atraumatic, soft, nontender MSK: Right AKA Skin: Warm, Dry, intact, no rashes Neuro: AO x3, CN II-XII grossly intact, moves all extremities Psych: affect normal, mood normal, not suicidal, not homicidal Course Orders Ordered: ED Orders 06/02/23 21:37 UA Complete [Urinalysis and Microscopic] Stat Urine Culture Stat Discontinued Medications Ondansetron HCl (Ondansetron 4 Mg/2 Ml Inj) 4 mg IV NOW PRN PRN Reason: Nausea And Vomiting Ondansetron HCl (Ondansetron 4 Mg Odt) 4 mg SL NOW PRN PRN Reason: Nausea And Vomiting Pantoprazole Sodium (Pantoprazole 40 Mg Vial) 80 mg IV NOW ONE Stop: 06/02/23 15:59 Last Admin: 06/02/23 16:16 Dose: 80 mg Documented By: JUAN R Vital Signs Vital signs: Vital Signs - 8 hr 06/02/23 18:00 06/02/23 18:00 06/02/23 18:30 Temperature Pulse Rate 84 Respiratory Rate 15 Blood Pressure 118/62 135/65 Pulse Oximetry 98 Oxygen Delivery Method 06/02/23 18:30 06/02/23 18:58 06/02/23 18:58 Temperature Pulse Rate 81 84 Respiratory Rate 15 15 Blood Pressure 143/68 H Pulse Oximetry 100 99 Oxygen Delivery Method 06/02/23 19:00 06/02/23 19:00 06/02/23 19:00 Temperature 97.6 F Pulse Rate 82 83 Respiratory Rate 20 17 Blood Pressure 113/59 L 113/59 L Pulse Oximetry 99 Oxygen Delivery Method 06/02/23 19:15 06/02/23 19:15 06/02/23 19:15 Temperature 97.9 F Pulse Rate 81 82 Respiratory Rate 16 15 Blood Pressure 120/65 120/65 Pulse Oximetry 99 Oxygen Delivery Method 06/02/23 19:30 06/02/23 19:30 06/02/23 19:45 Temperature Pulse Rate 81 82 Respiratory Rate 16 14 Blood Pressure 125/58 L Pulse Oximetry 99 99 Oxygen Delivery Method 06/02/23 19:45 06/02/23 20:00 06/02/23 20:00 Temperature Pulse Rate 85 Respiratory Rate 14 Blood Pressure 126/65 141/70 H Pulse Oximetry 99 Oxygen Delivery Method 06/02/23 20:15 06/02/23 20:15 06/02/23 20:30 Temperature Pulse Rate 80 90 Respiratory Rate 12 20 Blood Pressure 114/57 L Pulse Oximetry 99 98 Oxygen Delivery Method 06/02/23 20:30 06/02/23 20:45 06/02/23 20:45 Temperature Pulse Rate 79 Respiratory Rate 13 Blood Pressure 155/70 H 134/59 L Pulse Oximetry 97 Oxygen Delivery Method Room Air 06/02/23 21:00 06/02/23 21:00 06/02/23 21:15 Temperature Pulse Rate 79 79 Respiratory Rate 13 12 Blood Pressure 131/63 Pulse Oximetry 97 97 Oxygen Delivery Method Room Air Room Air 06/02/23 21:15 06/02/23 21:30 06/02/23 21:30 Temperature Pulse Rate 81 Respiratory Rate 14 Blood Pressure 127/64 137/72 Pulse Oximetry 96 Oxygen Delivery Method 06/02/23 21:36 06/02/23 21:36 06/02/23 21:39 Temperature 98.0 F Pulse Rate 80 80 Respiratory Rate 14 14 Blood Pressure 136/66 136/66 Pulse Oximetry 97 Oxygen Delivery Method 06/02/23 21:45 06/02/23 21:45 06/02/23 22:00 Temperature Pulse Rate 90 83 Respiratory Rate 15 17 Blood Pressure 149/70 H Pulse Oximetry 95 94 Oxygen Delivery Method 06/02/23 22:00 06/02/23 22:15 06/02/23 22:15 Temperature Pulse Rate 80 Respiratory Rate 15 Blood Pressure 125/59 L 124/61 Pulse Oximetry 94 Oxygen Delivery Method 06/02/23 22:22 06/02/23 22:30 Temperature Pulse Rate 79 80 Respiratory Rate 14 13 Blood Pressure 124/61 Pulse Oximetry 94 95 Oxygen Delivery Method Room Air MDM - GI Bleed Differential Diagnosis Differential diagnosis: Likely hemorrhoids, melena and other (hematuria) Lab Data 06/02/23 15:45 06/02/23 15:45 Labs: Lab Results 06/02/23 06/02/23 Range/Units 15:45 21:37 WBC 7.5 (4.5-11.0) X10^3/uL RBC 3.75 L (4.5-5.9) X10^6/uL Hgb 7.6 L (13.5-17.5) g/dL Hct 23.7 L (41-53) % MCV 63.2 L (80-100) fL MCH 20.4 L (26-34) PG MCHC 32.2 (30-36) % RDW 32.8 H (11.6-14.8) % Plt Count 456 H (150-400) X10^3/uL Neut % (Auto) 64.0 (50-75) % Lymph % (Auto) 17.6 L (25-40) % [place] % (Auto) 12.1 (3-14) % Eos % (Auto) 5.3 H (2-4) % Baso % (Auto) 1.0 (0-2) % Neut # (Auto) 4800 (1991-6761) /uL Lymph # (Auto) 1300 (2398-2338) /uL [place] # (Auto) 900 (0-900) /uL Eos # (Auto) 400 (0-450) /uL Baso # (Auto) 100 (0-100) /uL Plt Morphology Comment RBC Morphology See below Hypochromasia 2+ H Anisocytosis 2+ H Microcytosis 3+ H Macrocytosis 1+ H Spherocytes 1+ H Target Cells 1+ H Stomatocytes 1+ H Acanthocytes (Spur) 2+ PT 13.1 H (9.4-12.5) SECONDS INR 1.1 (0.9-1.3) APTT 37 H (25.1-36.5) SECONDS Sodium 132 L (137-145) mmol/L Potassium 3.9 (3.4-5.1) mmol/L Chloride 93 L (98-107) mmol/L Carbon Dioxide 32 (22-32) mmol/L BUN 23 H (9-20) mg/dL Creatinine 0.88 (0.66-1.25) mg/dL Estimated GFR > 60 (>60) mL/min BUN/Creatinine Ratio 26.1 H (6-22) Glucose 72 L D (80-110) mg/dL Calcium 9.1 (8.4-10.2) mg/dL Total Bilirubin 0.4 (0.2-1.3) mg/dL AST 34 (17-59) IU/L ALT 21 (<50) IU/L Alkaline Phosphatase 138 H (38-126) U/L Total Protein 7.8 (6.3-8.2) g/dL Albumin 3.8 (3.5-5.0) g/dL Globulin 4.0 (1.7-4.1) g/dL Albumin/Globulin Ratio 1.0 (1.0-2.8) Urine Color Yellow Urine Appearance Clear Urine pH 6.0 (4.5-8.0) Ur Specific [place] 1.010 (1.000-1.035) Urine Protein Trace H (Negative) Urine Glucose (UA) Negative (Negative) g/dL Urine Ketones Negative (NEGATIVE) Urine Occult Blood 3+ H (Negative) Urine Nitrate Negative (Negative) Urine Bilirubin Negative (NEGATIVE) Urine Urobilinogen 0.2 (0.2) E.U./dL Ur Leukocyte Esterase 1+ H (NEGATIVE) Urine RBC 1-5/hpf D (0-5/HPF) Urine WBC 1-5/hpf (0-5/HPF) Ur Squamous Epith Cells 0-1 /hpf (0-5/HPF) Urine Bacteria Few (2-10) H (None) Ur Culture Indicated? Specimen cultured Vol Urine Centrifuged 10ml (spun) Blood Type O Negative Antibody Screen Negative Crossmatch See Detail Point of Care Testing Glucose POC 168 Urine Dip Bedside Urine Glucose Negative Bedside Urine Bilirubin - Negative Bedside Urine Ketone - Negative Urine Specific [place] 1.015 Bedside Urine Occult Blood +++ Bedside Urine pH 6.0 Bedside Urine Protein +/- 15 Bedside Urine Urobilinogen - Negative Bedside Urine Nitrite - Negative Bedside Urine Leukocytes +/- 15 Esterase MDM Narrative Medical decision making narrative: Patient presenting for anemia. Concern is for GI bleed, however patient is not on blood thinners, endoscopy in 2021 showed old blood without active bleeding. Patient denying dark or tarry stools or bloody bowel movements. Patient has had stent placed that has not been removed since, he has had persistently bloody urine since that time. Hemoglobin here is 7.6, technically not transfusion threshold, however since it has gradually down trended since last being transfused 1 month ago we will order 1 unit PRBCs. Patient reports abdominal pain, however he states it is ?my usual pain? . Patient had a brief episode where his blood sugars were low. He remained alert and oriented throughout this time and he is known to be a brittle diabetic. He was given food and juice and subsequently blood sugars maintained greater than 70. Patient was transfused 1 L of packed red blood cells, counseled patient that he needs to follow up with Urology for his stent removal. Discharge Plan Departure Patient Disposition: Home Clinical Impression: Anemia requiring transfusions Instructions: DI for Hematuria Activity Restrictions/Additional Instructions: FOLLOW UP WITH UROLOGY FOR YOUR STENT REMOVAL Prescriptions: No Action atorvastatin 80 MG tablet 80 mg PO BEDTIME Qty: 0 clopidogrel 75 MG tablet 75 mg PO DAILY Qty: 0 levothyroxine 50 MCG tablet 50 mcg PO QPM Qty: 0 acetaminophen 325 MG tablet 1,000 mg PO TID PRN (Reason: pain/fever) Qty: 0 omeprazole 20 MG capsule,delayed release(DR/EC) 40 mg PO DAILY Qty: 0 tamsulosin 0.4 mg capsule 0.4 mg PO BEDTIME sertraline 50 mg tablet 50 mg PO DAILY Xtampza ER 18 mg cap,sprinkl,ER12hr(DONT CRUSH) 18 mg PO BID alum-mag hydroxide-simeth 200-200-20 mg/5 mL Suspension 10 ml PO DAILY PRN (Reason: Heartburn) Rx Instructions: 10-20mls lubiprostone [Amitiza] 24 mcg capsule 24 mcg PO BID aspirin 81 mg tablet,delayed release (DR/EC) 81 mg PO DAILY naloxone 0.4 mg/mL solution 0.4 mg IM Q15-20M PRN (Reason: Opioid Overdose) Qty: 0 0RF bisacodyl 10 MG suppository 10 mg VA DAILY PRN (Reason: Constipation) Qty: 0 0RF polyethylene glycol 3350 17 gram/dose powder 17 g PO DAILY PRN (Reason: Constipation) Qty: 0 0RF oxycodone 5 mg tablet 20 mg PO Q4H PRN (Reason: pain) 7 Days Qty: 40 0RF Rx Instructions: hold if too sedated lorazepam [Ativan] 1 mg tablet 1 mg PO TID PRN (Reason: nausea and vomiting) Qty: 10 0RF ketorolac 10 mg tablet 10 mg PO Q6H PRN (Reason: pain) Qty: 14 0RF Rx Instructions: for 5 days mirtazapine 15 mg Tablet 15 mg PO BEDTIME fluticasone propionate 50 mcg/actuation [place],Suspension 1 spray INTRANASAL BID cholecalciferol (vitamin D3) 1,000 unit Capsule 2,000 unit PO DAILY hydroxyzine pamoate 25 mg Capsule 25 - 50 mg PO Q6H PRN (Reason: pain/spasms) ondansetron 4 mg Tablet,Disintegrating 4 - 8 mg PO Q4H PRN (Reason: Nausea) Patient Comments: 1 - 2 prn nausea Glucagon Emergency Kit (human) 1 mg Recon Soln 1 mg IM PRN MDD ` PRN (Reason: blood glucose <60) duloxetine 60 mg capsule,delayed release(DR/EC) 60 mg PO BEDTIME nystatin 100,000 unit/gram Cream 1 applic TOPICAL BID PRN (Reason: yeast) furosemide 80 mg Tablet 80 mg PO QAM lorazepam 1 mg Tablet 1 mg PO BEDTIME PRN (Reason: Insomnia) docusate sodium 100 mg Tablet 200 mg PO TID bisacodyl 5 mg Tablet 5 - 10 mg PO DAILY PRN (Reason: Constipation) propylene glycol-glycerin 1-0.3 % Drops 1 drp OPHTHALMIC (EYE) Q1H PRN (Reason: Dry Eyes) insulin glargine [Lantus Solostar U-100 Insulin] 100 unit/mL (3 mL) Insulin Pen 17 unit SUBCUT BEDTIME sennosides [senna] 8.6 mg Tablet 17.2 mg PO BID metoclopramide HCl 5 mg/5 mL Solution 10 mg PO QAC Rx Instructions: before meals for chronic nausea magnesium hydroxide [Milk of Magnesia] 400 mg/5 mL Suspension 30 ml PO DAILY PRN (Reason: Constipation) oxymetazoline 0.05 % [place],Non-Aerosol 2 spray INTRANASAL Q12H PRN (Reason: nosebleed) cefdinir 300 mg capsule 300 mg PO BID Qty: 20 0RF cefdinir 300 mg capsule 300 mg PO BID Qty: 20 0RF insulin aspart U-100 [Novolog FlexPen U-100 Insulin] 100 unit/mL insulin pen See Rx Instructions .ROUTE .COMPLEX Rx Instructions: Per [place] med list, insulin instructions are per Ray who directs his own dosing of insulin based on what he is about to consume w/ meals Referrals: Modesta Rosenbaum MD [Physician] - Eli Montanez ARNP [Primary Care Provider] - Stand Alone Forms: Patient Portal/API
--- NOTE | 2023-06-02 18:21 | PC.NURSE ---
Pt BG still 45 after eating 75% of his dinner tray, chocolate milk and OJ. Pt states that he feels a little bit better. Dr López notified and ordered more OJ for pt. Pt a&ox4.
[2023-06-02 22:06] LABS: Appearance Urine UA CLEAR; Bilirubin Urine UA NEGATIVE (NEGATIVE); Color Urine UA YELLOW; Glucose Urine UA NEGATIVE (Negative); Ketones Urine UA NEGATIVE (NEGATIVE); Leukocyte Esterase Urine UA 1+ (NEGATIVE); Nitrite Urine UA NEGATIVE (Negative); Occult Blood Urine UA 3+ (Negative); Protein Urine UA TRACE (Negative); Urobilinogen Urine UA 0.2 E.U./dL (0.2)
[2023-06-02 22:13] LABS: Bacteria Urine Few (2-10); Culture Indicated Urine Specimen Cultured; RBC Urine 1-5/HPF (0-5/HPF); Squamous Epithelial Cell Urine 0-1 /HPF (0-5/HPF); Urine Volume 10mL (spun); WBC Urine 1-5/HPF (0-5/HPF)
== END 2023-06-03 00:10 | disposition home or self-care (01) ==
PROVIDERS: Emergency Medicine; Emergency Provider Emergency Medicine; Family Provider Nurse Practitioner Family; PCP Nurse Practitioner Family
DX: D64.9 Anemia, unspecified (principal); Z79.899 Other long term (current) drug therapy
CPT/HCPCS: 36415; 36430; 80053; 81001; 81003; 82728; 82962; 83540; 85025; 85610; 85730; 86850; 86900; 86901; 87086; 93005; 96374; 99284; P9016; C9113

== ENCOUNTER → 2023-06-08 10:24 | Outpatient (CLI) | payer MEDICARE, MEDICAID, SELFPAY ==
[2022-12-01 13:43] VITALS: BMI 21.7
== END ==
LOC: WC 10:25
PROVIDERS: Family Provider Nurse Practitioner Family; PCP Nurse Practitioner Family; Referring Provider Nurse Practitioner Family; Visit Provider Surgery
DX: L89.153 Pressure ulcer of sacral region, stage 3 (principal); E10.628 Type 1 diabetes mellitus with other skin complications; I73.9 Peripheral vascular disease, unspecified; F17.210 Nicotine dependence, cigarettes, uncomplicated; I25.5 Ischemic cardiomyopathy; D64.9 Anemia, unspecified; G81.90 Hemiplegia, unspecified affecting unspecified side
CPT/HCPCS: 11042; 99213

== ENCOUNTER → 2023-06-11 14:39 | Outpatient (ROUT) | payer MEDICARE, MEDICAID, SELFPAY ==
[2022-12-01 13:43] VITALS: BMI 21.7
[2023-06-11 14:52] LABS: Alanine Aminotransferase 17 IU/L (<50); Albumin 3.4 g/dL (3.5-5.0); Albumin Globulin Ratio 1.1 (1.0-2.8); Alkaline Phosphatase 135 U/L (38-126); Aspartate Aminotransferase 25 IU/L (17-59); BUN Creatinine Ratio 31.7 (6-22); Bilirubin Total 0.4 mg/dL (0.2-1.3); Blood Urea Nitrogen 19 mg/dL (9-20); Calcium 8.5 mg/dL (8.4-10.2); Carbon Dioxide 30 mmol/L (22-32); Chloride 97 mmol/L (98-107); Estimated Glomerular Filt Rate > 60 mL/min (>60); Globulin 3.2 g/dL (1.7-4.1); Glucose 131 mg/dL (80-110); HEMOLYSIS < 15 (0-50); Potassium 3.8 mmol/L (3.4-5.1); Sodium 135 mmol/L (137-145); Total Protein 6.6 g/dL (6.3-8.2)
[2023-06-11 14:55] LABS: Add Manual Diff / Slide Review NO; Basophils Absolute Auto 100 /uL (0-100); Basophils Percent Auto 1.2 % (0-2); Eosinophils Absolute Auto 500 /uL (0-450); Eosinophils Percent Auto 7.1 % (2-4); Hemoglobin 8.8 g/dL (13.5-17.5); Lymphocytes Absolute Auto 1000 /uL (1100-4500); Lymphocytes Percent Auto 14.1 % (25-40); Mean Corpuscular HGB Conc 32.5 % (30-36); Mean Corpuscular Hemoglobin 21.9 PG (26-34); Mean Corpuscular Volume 67.4 fL (80-100); Monocytes Absolute Auto 600 /uL (0-900); Monocytes Percent Auto 8.3 % (3-14); Neutrophils Absolute Auto 4800 /uL (1500-7000); Neutrophils Percent Auto 69.3 % (50-75); Platelet Count 377 X10^3/uL (150-400); Red Cell Distribution Width 31.1 % (11.6-14.8); White Blood Cell Count 6.9 X10^3/uL (4.5-11.0)
[2023-06-11 15:14] LABS: Anisocytosis 2+; Microcytosis 2+
[2023-06-11 15:15] LABS: Hypochromasia 1+; Target Cells 1+
[2023-06-11 15:18] LABS: Schistocytes 1+
== END ==
PROVIDERS: Family Provider Nurse Practitioner Family; PCP Nurse Practitioner Family; Visit Provider Internal Medicine
DX: D50.9 Iron deficiency anemia, unspecified (principal)
CPT/HCPCS: 80053; 85025

== ENCOUNTER → 2023-06-15 14:21 | Outpatient (CLI) | payer MEDICARE, MEDICAID, SELFPAY ==
[2022-12-01 13:43] VITALS: BMI 21.7
== END ==
PROVIDERS: Family Provider Nurse Practitioner Family; PCP Nurse Practitioner Family; Referring Provider Nurse Practitioner Family; Visit Provider Surgery
DX: L89.153 Pressure ulcer of sacral region, stage 3 (principal); E10.628 Type 1 diabetes mellitus with other skin complications; I73.9 Peripheral vascular disease, unspecified; I67.9 Cerebrovascular disease, unspecified; I25.5 Ischemic cardiomyopathy; D64.9 Anemia, unspecified; G81.90 Hemiplegia, unspecified affecting unspecified side; Z99.3 Dependence on wheelchair
CPT/HCPCS: 11042

== ENCOUNTER → 2023-06-16 13:14 | Outpatient (CLI) | payer MEDICARE, MEDICAID, SELFPAY ==
[2022-12-01 13:43] VITALS: BMI 21.7
--- NOTE | 2023-06-16 13:15 | DI.RAD.S_ITS ---
PROCEDURE: XR PELVIS 1-2V INDICATIONS: Rule out osteomyelitis of coccyx TECHNIQUE: 1 view(s) of the pelvis acquired. COMPARISON: CT, CT KIDNEY URETER BLADDER ([facility]), 01/05/2023, 9:47. CR, XR ABDOMEN 1V, 12/01/2022, 11:46. FINDINGS: Bones: No acute fractures or dislocations. There is old fracture deformity of the proximal right femur. No suspicious bony lesions. Mild to moderate degenerative joint disease in hips and sacroiliac joints. Osteopenia. Soft tissues: Visualized bowel gas pattern is normal. No suspicious soft tissue calcifications. There is a right ureteral stent. Right femoral artery bypass graft. IMPRESSION: 1. Coccyx is not well seen. Radiographs are not sensitive to detect early osteomyelitis. Recommend MRI or triple phase bone scan for further evaluation. 2. [id number] degenerative joint disease. 3. Osteopenia. Dictated by: Clif Bermeo M.D. on 06/16/2023 at 17:09 Approved by: Clif Bermeo M.D. on 06/17/2023 at 8:03
== END ==
PROVIDERS: Family Provider Nurse Practitioner Family; PCP Nurse Practitioner Family; Referring Provider Surgery; Visit Provider Surgery
DX: L89.153 Pressure ulcer of sacral region, stage 3 (principal); M16.0 Bilateral primary osteoarthritis of hip; M47.818 Spondylosis without myelopathy or radiculopathy, sacral and sacrococcygeal region; M85.88 Other specified disorders of bone density and structure, other site
CPT/HCPCS: 72170

== ENCOUNTER → 2023-06-22 07:50 | Outpatient (ROUT) | payer MEDICARE, MEDICAID, SELFPAY ==
[2022-12-01 13:43] VITALS: BMI 21.7
[2023-06-22 08:42] LABS: Add Manual Diff / Slide Review NO; Basophils Absolute Auto 100 /uL (0-100); Basophils Percent Auto 0.5 % (0-2); Eosinophils Absolute Auto 400 /uL (0-450); Eosinophils Percent Auto 2.9 % (2-4); Hematocrit 28.9 % (41-53); Hemoglobin 9.5 g/dL (13.5-17.5); Lymphocytes Absolute Auto 800 /uL (1100-4500); Lymphocytes Percent Auto 6.3 % (25-40); Mean Corpuscular HGB Conc 32.9 % (30-36); Mean Corpuscular Hemoglobin 23.8 PG (26-34); Mean Corpuscular Volume 72.4 fL (80-100); Monocytes Absolute Auto 1100 /uL (0-900); Monocytes Percent Auto 8.9 % (3-14); Neutrophils Absolute Auto 10400 /uL (1500-7000); Neutrophils Percent Auto 81.4 % (50-75); Platelet Count 410 X10^3/uL (150-400); Red Blood Cell Count 3.99 X10^6/uL (4.5-5.9); Red Cell Distribution Width 33.1 % (11.6-14.8); White Blood Cell Count 12.7 X10^3/uL (4.5-11.0)
[2023-06-22 08:53] LABS: Anisocytosis 2+; Poikilocytosis 1+
== END ==
PROVIDERS: Family Provider Nurse Practitioner Family; PCP Nurse Practitioner Family; Visit Provider Internal Medicine
DX: D64.9 Anemia, unspecified (principal)
CPT/HCPCS: 36415; 85025

== ENCOUNTER 2023-06-22 21:22 | Emergency (ER) | payer MEDICARE, MEDICAID, SELFPAY ==
[2022-12-01 13:43] VITALS: BMI 21.7
[2023-06-22 21:30] VITALS: BP 130/61; PULSE 96; PULSE 97; RESP 24; TEMP 37.9; O2SAT 95
--- NOTE | 2023-06-22 21:44 | DI.RAD.S_ITS ---
PROCEDURE: XR CHEST 1V INDICATIONS: suspected sepsis TECHNIQUE: One view of the chest was acquired. COMPARISON: [facility], CR, XR CHEST 1V, 07/02/2021, 22:45. FINDINGS: Surgical changes and devices: None. Lungs and pleura: Lungs are clear. No pleural effusions or pneumothorax. Mediastinum: Mediastinal contours appear normal. Heart size is normal. Bones and chest wall: No suspicious bony lesions. Overlying soft tissues appear unremarkable. IMPRESSION: No acute cardiopulmonary abnormalities or focal airspace disease. Dictated by: Luis Felipe Key M.D. on 06/22/2023 at 22:36 Approved by: Luis Felipe Key M.D. on 06/22/2023 at 22:36
--- NOTE | 2023-06-22 21:50 | ED.AMS ---
HPI - Altered Mental Status General Chief Complaint: Altered Mental Status Stated Complaint: Lethargy/Fever Time Seen by Provider: 06/22/23 21:46 Source: EMS and old records reviewed Mode of arrival: EMS History of Present Illness HPI narrative: Gentleman comes to the ED by ambulance from a local [facility], [facility], with decreased activity and lethargy today. No other specific complaints. The patient himself says hurts all over but denies chest pain and abdominal pain. He really does not tell me anything else. Past history remarkable for heart failure, hyperlipidemia, type 1 diabetes, prior stroke with hemiplegia, hypothyroidism, BKA on the right Related Data Home Medications Medication Instructions Recorded Confirmed acetaminophen 325 mg tablet 1,000 mg PO TID PRN pain/fever ##0 06/29/17 12/01/22 atorvastatin 80 mg tablet 80 mg PO BEDTIME ##0 06/29/17 12/01/22 clopidogrel 75 mg tablet 75 mg PO DAILY ##0 06/29/17 12/01/22 levothyroxine 50 mcg tablet 50 mcg PO QPM ##0 06/29/17 12/01/22 omeprazole 20 mg capsule,delayed 40 mg PO DAILY ##0 06/29/17 12/01/22 release insulin aspart U-100 100 unit/mL See Rx Instructions .Route .COMPLEX 11/25/17 12/01/22 (3 mL) subcutaneous pen (Novolog FlexPen U-100 Insulin aspart) cholecalciferol (vitamin D3) 25 2,000 unit PO DAILY 08/13/18 12/01/22 mcg (1,000 unit) capsule fluticasone propionate 50 1 spray intranasal BID 08/13/18 12/01/22 mcg/actuation nasal spray,suspension hydroxyzine pamoate 25 mg capsule 25 - 50 mg PO Q6H PRN pain/spasms 08/13/18 12/01/22 mirtazapine 15 mg tablet 15 mg PO BEDTIME 08/13/18 12/01/22 ondansetron 4 mg disintegrating 4 - 8 mg PO Q4H PRN Nausea 08/13/18 12/01/22 tablet duloxetine 60 mg capsule,delayed 60 mg PO BEDTIME 03/02/19 12/01/22 release glucagon (human recombinant) 1 mg 1 mg IM PRN PRN blood glucose <60 03/02/19 12/01/22 solution for injection (Glucagon Emergency Kit) nystatin 100,000 unit/gram topical 1 applic topical BID PRN yeast 03/02/19 12/01/22 cream aluminum-mag hydroxide-simethicone 10 ml PO DAILY PRN Heartburn 07/04/21 12/01/22 200 mg-200 mg-20 mg/5 mL oral susp aspirin 81 mg tablet,delayed 81 mg PO DAILY 07/04/21 12/01/22 release lubiprostone 24 mcg capsule 24 mcg PO BID 07/04/21 12/01/22 (Amitiza) oxycodone myristate 18 mg capsule 18 mg PO BID 07/04/21 12/01/22 sprinkle extended release 12hr(DON'T CRUSH) (Xtampza ER) sertraline 50 mg tablet 50 mg PO DAILY 07/04/21 12/01/22 tamsulosin 0.4 mg capsule 0.4 mg PO BEDTIME 07/04/21 12/01/22 bisacodyl 5 mg tablet 5 - 10 mg PO DAILY PRN Constipation 12/01/22 12/01/22 docusate sodium 100 mg tablet 200 mg PO TID 12/01/22 12/01/22 furosemide 80 mg tablet 80 mg PO QAM 12/01/22 12/01/22 insulin glargine 100 unit/mL (3 17 unit SUBCUT BEDTIME 12/01/22 12/01/22 mL) subcutaneous pen (Lantus Solostar U-100 Insulin) lorazepam 1 mg tablet 1 mg PO BEDTIME PRN Insomnia 12/01/22 12/01/22 magnesium hydroxide 400 mg/5 mL 30 ml PO DAILY PRN Constipation 12/01/22 12/01/22 oral suspension (Milk of Magnesia) metoclopramide HCl 5 mg/5 mL oral 10 mg PO QAC 12/01/22 12/01/22 solution oxymetazoline 0.05 % nasal spray 2 spray intranasal Q12H PRN 12/01/22 12/01/22 nosebleed propylene glycol 1 %-glycerin 0.3 1 drp ophthalmic (eye) Q1H PRN Dry 12/01/22 12/01/22 % eye drops Eyes sennosides 8.6 mg tablet (senna) 17.2 mg PO BID 12/01/22 12/01/22 Previous Rx's Medication Instructions Recorded bisacodyl 10 mg rectal suppository 10 mg CO DAILY PRN Constipation #0 07/07/21 ea naloxone 0.4 mg/mL injection 0.4 mg IM Q15-20M PRN Opioid 07/07/21 solution Overdose #0 mL oxycodone 5 mg tablet 20 mg (4 x 5 mg) PO Q4H PRN pain 7 07/07/21 days #40 tabs polyethylene glycol 3350 17 17 g PO DAILY PRN Constipation #0 07/07/21 gram/dose oral powder grams lorazepam 1 mg tablet (Ativan) 1 mg PO TID PRN nausea and 07/09/22 vomiting #10 tabs ketorolac 10 mg tablet 10 mg PO Q6H PRN pain #14 tabs 11/28/22 cefdinir 300 mg capsule 300 mg PO BID #20 caps 01/05/23 cefdinir 300 mg capsule 300 mg PO BID #20 caps 01/05/23 cephalexin 500 mg capsule 500 mg PO TID #30 caps 06/23/23 Allergies Allergy/AdvReac Type Severity Reaction Status Date / Time amitriptyline Allergy Verified 12/01/22 07:38 pollen extracts Allergy Verified 12/01/22 07:38 codeine [CODEINE] AdvReac Unknown nausea Verified 12/01/22 07:38 Patient History Medical History (Updated 06/23/23 @ 00:28 by Giorgi Dozier MD) C3 spinal cord injury C4 spinal cord injury Hypertension Hyperlipidemia Gastroesophageal reflux disease CVA (cerebral vascular accident) Diabetes Surgical History History of carotid endarterectomy History of coronary artery stent placement No pertinent past surgical history Family History Mother Cancer Father Lung disease Hyperlipidemia Brother Lupus Social History household members: other Smoking Status: Current every day smoker alcohol intake: former substance use type: does not use additional social history: He currently resides in He currently resides in [facility]. Smoking Status: Current every day smoker tobacco type: cigarettes alcohol intake frequency: other Substance Use Type: does not use Exam Narrative Exam Narrative: GENERAL: Alert, cooperative and in no distress. HEAD: Atraumatic. Normocephalic. EYES: Sclera are clear without icterus. Extraocular movements are full. ENT: No rhinorrhea. Oropharynx is moist. Mouth exam is benign. NECK: Supple. Full range of motion. CARDIOVASCULAR: Normal rate and rhythm without murmur gallop or rub. RESPIRATORY: Clear to auscultation. Breath sounds equal bilaterally. No wheezes, rales, or rhonchi. GASTROINTESTINAL: Abdomen soft, non-tender, nondistended. EXTREMITIES: No edema, full range of motion. No obvious trauma. NEURO: Nonfocal examination, normal speech. It takes him encouragement to get him to talk but he will and he has no dysarthria. He seems appropriately oriented SKIN: No rash or erythema of visible areas PSYCH: Normally oriented. Normal range of affect. Appropriate behavior Initial Vital Signs Initial Vital Signs: Vital Signs Temperature 100.3 F H 06/22/23 21:30 Pulse Rate 97 H 06/22/23 21:30 Respiratory Rate 24 06/22/23 21:30 Blood Pressure 130/61 06/22/23 21:30 Pulse Oximetry 95 06/22/23 21:30 Oxygen Delivery Method Room Air 06/22/23 21:30 Course Orders Ordered: ED Orders 06/22/23 21:25 Complete Blood Count AUTO DIFF Stat Comprehensive Metabolic Panel Stat Lactate (Lactic Acid) Stat Lipase Stat Magnesium Stat PTT Partial Thromboplastin Kyle Stat Procalcitonin Stat Prothrombin Time INR Stat Troponin I Stat 06/22/23 21:44 XR chest 1V Stat EKG-12 Lead Stat RT Consult Eval and Treat NOW 06/22/23 22:10 Covid-19 + FLU A/B + RSV - PCR Stat 06/22/23 22:20 UA dip and micro [Urinalysis and Microscopic] Stat Urine Culture Stat 06/22/23 22:27 Blood Culture Stat Ondansetron HCl (Ondansetron 4 Mg/2 Ml Inj) 4 mg IV NOW PRN PRN Reason: Nausea And Vomiting Ondansetron HCl (Ondansetron 4 Mg Odt) 4 mg SL NOW PRN PRN Reason: Nausea And Vomiting Discontinued Medications Acetaminophen (Acetaminophen 325 Mg Tablet) 975 mg PO NOW ONE Stop: 06/22/23 21:53 Last Admin: 06/22/23 22:38 Dose: 975 mg Documented By: VICK Sodium Chloride (Normal Saline 0.9%) 1,000 mls @ 1,000 mls/hr IV BOLUS ONE Stop: 06/22/23 22:43 Last Infusion: 06/22/23 22:55 Dose: Infused Documented By: Admin: 06/22/23 21:55 Dose: 1,000 mls/hr Documented By: VICK Sodium Chloride (Normal Saline 0.9%) 1,000 mls @ 1,000 mls/hr IV BOLUS ONE Stop: 06/22/23 22:51 Last Admin: 06/23/23 00:09 Dose: Not Given Documented By: VICK Ceftriaxone Sodium 1,000 mg/ (Sodium Chloride) 100 mls @ 200 mls/hr IV NOW ONE Stop: 06/23/23 00:24 Last Admin: 06/23/23 00:35 Dose: 200 mls/hr Ketorolac Tromethamine (Ketorolac 30 Mg/Ml Vial) 15 mg IV NOW ONE Stop: 06/22/23 21:53 Last Admin: 06/22/23 22:36 Dose: 15 mg Documented By: VICK Vital Signs Vital signs: Vital Signs - 8 hr 06/22/23 21:30 06/22/23 21:30 06/22/23 22:30 Temperature 100.3 F H Pulse Rate 97 H 96 H 90 Respiratory Rate 24 24 23 Blood Pressure 130/61 130/61 141/65 H Pulse Oximetry 95 95 97 Oxygen Delivery Method Room Air Room Air Room Air 06/22/23 23:00 06/22/23 23:11 06/22/23 23:30 Temperature 99.4 F Pulse Rate 85 85 Respiratory Rate 20 24 Blood Pressure 109/56 L 104/51 L Pulse Oximetry 97 96 Oxygen Delivery Method Room Air 06/22/23 23:30 06/23/23 00:00 06/23/23 00:00 Temperature Pulse Rate 85 81 Respiratory Rate 20 20 Blood Pressure 101/51 L Pulse Oximetry 96 98 Oxygen Delivery Method 06/23/23 00:30 06/23/23 00:30 06/23/23 01:00 Temperature Pulse Rate 92 H Respiratory Rate 18 Blood Pressure 158/67 H 189/79 H Pulse Oximetry 98 Oxygen Delivery Method 06/23/23 01:00 Temperature Pulse Rate 100 H Respiratory Rate 18 Blood Pressure Pulse Oximetry 97 Oxygen Delivery Method MDM - Altered Mental Status Lab Data 06/22/23 21:25 06/22/23 21:25 Labs: Lab Results 06/22/23 06/22/23 06/22/23 Range/Units 21:25 22:10 22:20 WBC 13.5 H (4.5-11.0) X10^3/uL RBC 4.47 L (4.5-5.9) X10^6/uL Hgb 10.5 L (13.5-17.5) g/dL Hct 32.6 L (41-53) % MCV 72.9 L (80-100) fL MCH 23.4 L (26-34) PG MCHC 32.1 (30-36) % RDW 33.5 H (11.6-14.8) % Plt Count 392 (150-400) X10^3/uL Neut % (Auto) 90.7 H (50-75) % Lymph % (Auto) 2.6 L (25-40) % [place] % (Auto) 6.1 (3-14) % Eos % (Auto) 0.3 L (2-4) % Baso % (Auto) 0.3 (0-2) % Neut # (Auto) 84569 H (6884-4854) /uL Lymph # (Auto) 400 L (1158-7033) /uL [place] # (Auto) 800 (0-900) /uL Eos # (Auto) 0 (0-450) /uL Baso # (Auto) 0 (0-100) /uL RBC Morphology See below Hypochromasia 1+ H Anisocytosis 2+ H PT 13.5 H (9.4-12.5) SECONDS INR 1.2 (0.9-1.3) APTT 36 (25.1-36.5) SECONDS Sodium 134 L (137-145) mmol/L Potassium 3.2 L (3.4-5.1) mmol/L Chloride 95 L (98-107) mmol/L Carbon Dioxide 30 (22-32) mmol/L BUN 15 (9-20) mg/dL Creatinine 0.64 L (0.66-1.25) mg/dL Estimated GFR > 60 (>60) mL/min BUN/Creatinine Ratio 23.4 H (6-22) Glucose 279 H (80-110) mg/dL Lactate 2.4 H (0.7-2.1) mmol/L Calcium 8.4 (8.4-10.2) mg/dL Magnesium 1.8 (1.6-2.3) mg/dL Total Bilirubin 0.5 (0.2-1.3) mg/dL AST 33 (17-59) IU/L ALT 19 (<50) IU/L Alkaline Phosphatase 127 H (38-126) U/L Troponin I 0.014 (0.01-0.034) ng/mL Total Protein 7.3 (6.3-8.2) g/dL Albumin 3.7 (3.5-5.0) g/dL Globulin 3.6 (1.7-4.1) g/dL Albumin/Globulin Ratio 1.0 (1.0-2.8) Lipase 14 L (23-300) U/L Procalcitonin 0.07 (<0.5) ng/mL Urine Color Yellow Urine Appearance Sl cloudy Urine pH 6.5 (4.5-8.0) Ur Specific [place] 1.010 (1.000-1.035) Urine Protein Trace H (Negative) Urine Glucose (UA) 2+ H (Negative) g/dL Urine Ketones Negative (NEGATIVE) Urine Occult Blood 1+ H (Negative) Urine Nitrate Positive H (Negative) Urine Bilirubin Negative (NEGATIVE) Urine Urobilinogen 0.2 (0.2) E.U./dL Ur Leukocyte Esterase 3+ H (NEGATIVE) Urine RBC 10-30/hpf H (0-5/HPF) Urine WBC 30-100/hpf H (0-5/HPF) Ur Squamous Epith Cells None seen (0-5/HPF) Urine Bacteria Moderate (10-30) H (None) Ur Culture Indicated? Specimen cultured Vol Urine Centrifuged 10ml (spun) SARS-CoV-2 (PCR) Negative (Negative) Influenza A (RT-PCR) Flu a negative (NEGATIVE) Influenza B (RT-PCR) Flu b negative (NEGATIVE) RSV (PCR) Negative (Negative) 06/22/23 Range/Units 23:53 WBC (4.5-11.0) X10^3/uL RBC (4.5-5.9) X10^6/uL Hgb (13.5-17.5) g/dL Hct (41-53) % MCV (80-100) fL MCH (26-34) PG MCHC (30-36) % RDW (11.6-14.8) % Plt Count (150-400) X10^3/uL Neut % (Auto) (50-75) % Lymph % (Auto) (25-40) % [place] % (Auto) (3-14) % Eos % (Auto) (2-4) % Baso % (Auto) (0-2) % Neut # (Auto) (2859-4755) /uL Lymph # (Auto) (3687-2373) /uL [place] # (Auto) (0-900) /uL Eos # (Auto) (0-450) /uL Baso # (Auto) (0-100) /uL RBC Morphology Hypochromasia Anisocytosis PT (9.4-12.5) SECONDS INR (0.9-1.3) APTT (25.1-36.5) SECONDS Sodium (137-145) mmol/L Potassium (3.4-5.1) mmol/L Chloride (98-107) mmol/L Carbon Dioxide (22-32) mmol/L BUN (9-20) mg/dL Creatinine (0.66-1.25) mg/dL Estimated GFR (>60) mL/min BUN/Creatinine Ratio (6-22) Glucose (80-110) mg/dL Lactate 0.9 (0.7-2.1) mmol/L Calcium (8.4-10.2) mg/dL Magnesium (1.6-2.3) mg/dL Total Bilirubin (0.2-1.3) mg/dL AST (17-59) IU/L ALT (<50) IU/L Alkaline Phosphatase (38-126) U/L Troponin I (0.01-0.034) ng/mL Total Protein (6.3-8.2) g/dL Albumin (3.5-5.0) g/dL Globulin (1.7-4.1) g/dL Albumin/Globulin Ratio (1.0-2.8) Lipase (23-300) U/L Procalcitonin (<0.5) ng/mL Urine Color Urine Appearance Urine pH (4.5-8.0) Ur Specific [place] (1.000-1.035) Urine Protein (Negative) Urine Glucose (UA) (Negative) g/dL Urine Ketones (NEGATIVE) Urine Occult Blood (Negative) Urine Nitrate (Negative) Urine Bilirubin (NEGATIVE) Urine Urobilinogen (0.2) E.U./dL Ur Leukocyte Esterase (NEGATIVE) Urine RBC (0-5/HPF) Urine WBC (0-5/HPF) Ur Squamous Epith Cells (0-5/HPF) Urine Bacteria (None) Ur Culture Indicated? Vol Urine Centrifuged SARS-CoV-2 (PCR) (Negative) Influenza A (RT-PCR) (NEGATIVE) Influenza B (RT-PCR) (NEGATIVE) RSV (PCR) (Negative) MDM Narrative Medical decision making narrative: Patient seems to meet sepsis criteria so will treat him for same and work him up for same. Patient looks well. Vital signs have normalized. His lactate is not elevated. We have identified a urinary tract source. He lives at a [facility] and they can certainly monitor him closely there. I do not think he requires hospitalization. IV antibiotics administered here. Discharge Plan Departure Patient Disposition: Home Clinical Impression: Acute pyelonephritis Instructions: DI for Kidney Infection Activity Restrictions/Additional Instructions: Sepsis not identified, only pyelonephritis on urinary tract infection. The rest of the laboratory data is baseline or reassuring. Received Rocephin 1000 mg here in the ED at 1 in the morning on the . Needs cephalexin 500 mg 3 times a day starting at around 6:00 p.m. on June 23. Return to the ED for worsening symptoms. Otherwise he should improve significantly over the coming days. Make sure he is well hydrated. Tylenol or other antipyretics as needed for symptoms. Prescriptions: New cephalexin 500 mg capsule 500 mg PO TID Qty: 30 0RF No Action atorvastatin 80 MG tablet 80 mg PO BEDTIME Qty: 0 clopidogrel 75 MG tablet 75 mg PO DAILY Qty: 0 levothyroxine 50 MCG tablet 50 mcg PO QPM Qty: 0 acetaminophen 325 MG tablet 1,000 mg PO TID PRN (Reason: pain/fever) Qty: 0 omeprazole 20 MG capsule,delayed release(DR/EC) 40 mg PO DAILY Qty: 0 tamsulosin 0.4 mg capsule 0.4 mg PO BEDTIME sertraline 50 mg tablet 50 mg PO DAILY Xtampza ER 18 mg cap,sprinkl,ER12hr(DONT CRUSH) 18 mg PO BID alum-mag hydroxide-simeth 200-200-20 mg/5 mL Suspension 10 ml PO DAILY PRN (Reason: Heartburn) Rx Instructions: 10-20mls lubiprostone [Amitiza] 24 mcg capsule 24 mcg PO BID aspirin 81 mg tablet,delayed release (DR/EC) 81 mg PO DAILY naloxone 0.4 mg/mL solution 0.4 mg IM Q15-20M PRN (Reason: Opioid Overdose) Qty: 0 0RF bisacodyl 10 MG suppository 10 mg CO DAILY PRN (Reason: Constipation) Qty: 0 0RF polyethylene glycol 3350 17 gram/dose powder 17 g PO DAILY PRN (Reason: Constipation) Qty: 0 0RF oxycodone 5 mg tablet 20 mg PO Q4H PRN (Reason: pain) 7 Days Qty: 40 0RF Rx Instructions: hold if too sedated lorazepam [Ativan] 1 mg tablet 1 mg PO TID PRN (Reason: nausea and vomiting) Qty: 10 0RF ketorolac 10 mg tablet 10 mg PO Q6H PRN (Reason: pain) Qty: 14 0RF Rx Instructions: for 5 days mirtazapine 15 mg Tablet 15 mg PO BEDTIME fluticasone propionate 50 mcg/actuation [place],Suspension 1 spray INTRANASAL BID cholecalciferol (vitamin D3) 1,000 unit Capsule 2,000 unit PO DAILY hydroxyzine pamoate 25 mg Capsule 25 - 50 mg PO Q6H PRN (Reason: pain/spasms) ondansetron 4 mg Tablet,Disintegrating 4 - 8 mg PO Q4H PRN (Reason: Nausea) Patient Comments: 1 - 2 prn nausea Glucagon Emergency Kit (human) 1 mg Recon Soln 1 mg IM PRN MDD ` PRN (Reason: blood glucose <60) duloxetine 60 mg capsule,delayed release(DR/EC) 60 mg PO BEDTIME nystatin 100,000 unit/gram Cream 1 applic TOPICAL BID PRN (Reason: yeast) furosemide 80 mg Tablet 80 mg PO QAM lorazepam 1 mg Tablet 1 mg PO BEDTIME PRN (Reason: Insomnia) docusate sodium 100 mg Tablet 200 mg PO TID bisacodyl 5 mg Tablet 5 - 10 mg PO DAILY PRN (Reason: Constipation) propylene glycol-glycerin 1-0.3 % Drops 1 drp OPHTHALMIC (EYE) Q1H PRN (Reason: Dry Eyes) insulin glargine [Lantus Solostar U-100 Insulin] 100 unit/mL (3 mL) Insulin Pen 17 unit SUBCUT BEDTIME sennosides [senna] 8.6 mg Tablet 17.2 mg PO BID metoclopramide HCl 5 mg/5 mL Solution 10 mg PO QAC Rx Instructions: before meals for chronic nausea magnesium hydroxide [Milk of Magnesia] 400 mg/5 mL Suspension 30 ml PO DAILY PRN (Reason: Constipation) oxymetazoline 0.05 % [place],Non-Aerosol 2 spray INTRANASAL Q12H PRN (Reason: nosebleed) cefdinir 300 mg capsule 300 mg PO BID Qty: 20 0RF cefdinir 300 mg capsule 300 mg PO BID Qty: 20 0RF insulin aspart U-100 [Novolog FlexPen U-100 Insulin] 100 unit/mL insulin pen See Rx Instructions .ROUTE .COMPLEX Rx Instructions: Per [facility] med list, insulin instructions are per Ray who directs his own dosing of insulin based on what he is about to consume w/ meals Referrals: Eli Montanez ARNP [Primary Care Provider] - Stand Alone Forms: Patient Portal/API
[2023-06-22 21:55] LABS: INR 1.2 (0.9-1.3); Prothrombin Time 13.5 SECONDS (9.4-12.5)
[2023-06-22] MEDS: SODIUM CHLORIDE 0.9% 1,000 ML 1000 ML IV (21:55)
[2023-06-22 21:57] LABS: PTT Partial Thromboplastin Tim 36 SECONDS (25.1-36.5)
[2023-06-22 22:00] LABS: Lactate (Lactic Acid) 2.4 mmol/L (0.7-2.1)
[2023-06-22 22:01] LABS: Alanine Aminotransferase 19 IU/L (<50); Albumin 3.7 g/dL (3.5-5.0); Alkaline Phosphatase 127 U/L (38-126); Aspartate Aminotransferase 33 IU/L (17-59); BUN Creatinine Ratio 23.4 (6-22); Bilirubin Total 0.5 mg/dL (0.2-1.3); Blood Urea Nitrogen 15 mg/dL (9-20); Calcium 8.4 mg/dL (8.4-10.2); Carbon Dioxide 30 mmol/L (22-32); Chloride 95 mmol/L (98-107); Estimated Glomerular Filt Rate > 60 mL/min (>60); Globulin 3.6 g/dL (1.7-4.1); Glucose 279 mg/dL (80-110); HEMOLYSIS < 15 (0-50); Lipase 14 U/L (23-300); Potassium 3.2 mmol/L (3.4-5.1); Sodium 134 mmol/L (137-145); Total Protein 7.3 g/dL (6.3-8.2)
[2023-06-22 22:06] LABS: Basophils Absolute Auto 0 /uL (0-100); Basophils Percent Auto 0.3 % (0-2); Eosinophils Absolute Auto 0 /uL (0-450); Eosinophils Percent Auto 0.3 % (2-4); Hematocrit 32.6 % (41-53); Hemoglobin 10.5 g/dL (13.5-17.5); Lymphocytes Absolute Auto 400 /uL (1100-4500); Lymphocytes Percent Auto 2.6 % (25-40); Mean Corpuscular HGB Conc 32.1 % (30-36); Mean Corpuscular Hemoglobin 23.4 PG (26-34); Mean Corpuscular Volume 72.9 fL (80-100); Monocytes Absolute Auto 800 /uL (0-900); Monocytes Percent Auto 6.1 % (3-14); Neutrophils Absolute Auto 12200 /uL (1500-7000); Neutrophils Percent Auto 90.7 % (50-75); Platelet Count 392 X10^3/uL (150-400); Red Blood Cell Count 4.47 X10^6/uL (4.5-5.9); Red Cell Distribution Width 33.5 % (11.6-14.8); White Blood Cell Count 13.5 X10^3/uL (4.5-11.0)
[2023-06-22 22:13] LABS: Add Manual Diff / Slide Review SLIDE REVIEW
[2023-06-22 22:17] LABS: Procalcitonin 0.07 ng/mL (<0.5)
[2023-06-22 22:21] LABS: Magnesium 1.8 mg/dL (1.6-2.3)
[2023-06-22 22:29] LABS: Anisocytosis 2+; Hypochromasia 1+
[2023-06-22 22:30] VITALS: BP 141/65; PULSE 90; RESP 23; O2SAT 97
[2023-06-22 22:34] LABS: Troponin I 0.014 ng/mL (0.01-0.034)
[2023-06-22] MEDS: KETOROLAC 30 MG/ML VIAL 15 MG IV (22:36)
[2023-06-22] MEDS: ACETAMINOPHEN 325 MG TABLET 975 MG PO (22:38)
[2023-06-22 22:53] LABS: Appearance Urine UA SL CLOUDY; Bilirubin Urine UA NEGATIVE (NEGATIVE); Color Urine UA YELLOW; Glucose Urine UA 2+ g/dL (Negative); Ketones Urine UA NEGATIVE (NEGATIVE); Leukocyte Esterase Urine UA 3+ (NEGATIVE); Nitrite Urine UA POSITIVE (Negative); Occult Blood Urine UA 1+ (Negative); Protein Urine UA TRACE (Negative); Urobilinogen Urine UA 0.2 E.U./dL (0.2); pH Urine UA 6.5 (4.5-8.0)
[2023-06-22 23:00] VITALS: BP 109/56; PULSE 85; RESP 20; TEMP 37.4; O2SAT 97
[2023-06-22 23:04] LABS: Bacteria Urine Moderate (10-30); RBC Urine 10-30/HPF (0-5/HPF); Squamous Epithelial Cell Urine None Seen (0-5/HPF); Urine Volume 10mL (spun); WBC Urine 30-100/HPF (0-5/HPF)
[2023-06-22 23:05] LABS: Culture Indicated Urine Specimen Cultured
[2023-06-22 23:11] VITALS: PULSE 85; RESP 24; O2SAT 96
[2023-06-22 23:25] LABS: Reflexed Lactate in 2 Hours Y
[2023-06-22 23:30] VITALS: BP 104/51; PULSE 85; RESP 20; O2SAT 96
[2023-06-22 23:38] LABS: Influenza A - CEPHEID Flu A NEGATIVE (NEGATIVE); Influenza B - CEPHEID Flu B NEGATIVE (NEGATIVE); Respiratory Syncytial Virus Negative (Negative)
[2023-06-22 23:43] LABS: COVID-19 CEPHEID 4-PLEX PCR Negative (Negative)
[2023-06-23] VITALS: BP 101/51; PULSE 81; RESP 20; O2SAT 98
[2023-06-23 00:21] LABS: Lactate 2HR (Lactic Acid Rflx) 0.9 mmol/L (0.7-2.1)
[2023-06-23 00:30] VITALS: BP 158/67; PULSE 92; RESP 18; O2SAT 98
[2023-06-23] MEDS: cefTRIAXone 1,000 MG in SODIUM CHLORIDE 0.9% 100 ML 200 MG IV (00:35)
--- NOTE | 2023-06-23 00:57 | PC.NURSE ---
This RN called Rosa M Gan to give report, discharge instructions and ETA of patient arrival back to facility, no answer and message was left to call back for report.
[2023-06-23 01:00] VITALS: BP 189/79; PULSE 100; RESP 18; O2SAT 97
[2023-06-23] MEDS: OXYCODONE IR 5 MG TABLET 20 MG PO (01:18)
[2023-06-23 01:24] VITALS: BP 182/77; PULSE 95; RESP 12; O2SAT 98
[2023-06-23 01:30] VITALS: BP 170/73; PULSE 98; RESP 18; O2SAT 98
== END 2023-06-23 01:50 | disposition home or self-care (01) ==
PROVIDERS: Emergency Provider Family Medicine Addiction Medicine; Family Provider Nurse Practitioner Family; PCP Nurse Practitioner Family
DX: N10 Acute pyelonephritis (principal); D64.9 Anemia, unspecified
CPT/HCPCS: 0241U; 36415; 71045; 80053; 81001; 83605; 83690; 83735; 84145; 84484; 85025; 85610; 85730; 87040; 87077; 87086; 87186; 93005; 96365; 96375; 99284; J0696; J1885

== ENCOUNTER → 2023-06-29 15:44 | Outpatient (CLI) | payer MEDICARE, MEDICAID, SELFPAY ==
[2022-12-01 13:43] VITALS: BMI 21.7
== END ==
LOC: WC 15:44
PROVIDERS: Family Provider Nurse Practitioner Family; PCP Nurse Practitioner Family; Referring Provider Nurse Practitioner Family; Visit Provider Surgery
DX: L89.153 Pressure ulcer of sacral region, stage 3 (principal); E11.628 Type 2 diabetes mellitus with other skin complications; G81.90 Hemiplegia, unspecified affecting unspecified side; I25.5 Ischemic cardiomyopathy; D64.9 Anemia, unspecified; I73.9 Peripheral vascular disease, unspecified
CPT/HCPCS: 11042

== ENCOUNTER → 2023-07-13 10:55 | Outpatient (CLI) | payer MEDICARE, MEDICAID, SELFPAY ==
[2022-12-01 13:43] VITALS: BMI 21.7
== END ==
LOC: WC 10:55
PROVIDERS: Family Provider Nurse Practitioner Family; PCP Nurse Practitioner Family; Referring Provider Nurse Practitioner Family; Visit Provider Surgery
DX: L89.153 Pressure ulcer of sacral region, stage 3 (principal); E10.628 Type 1 diabetes mellitus with other skin complications; I73.9 Peripheral vascular disease, unspecified; I25.5 Ischemic cardiomyopathy; D64.9 Anemia, unspecified; M62.81 Muscle weakness (generalized); F17.210 Nicotine dependence, cigarettes, uncomplicated
CPT/HCPCS: 11042; 99213

== ENCOUNTER → 2023-08-03 13:44 | Outpatient (CLI) | payer MEDICARE, MEDICAID, SELFPAY ==
[2022-12-01 13:43] VITALS: BMI 21.7
== END ==
LOC: WC 13:45
PROVIDERS: Family Provider Nurse Practitioner Family; PCP Nurse Practitioner Family; Referring Provider Nurse Practitioner Family; Visit Provider Surgery
DX: L89.153 Pressure ulcer of sacral region, stage 3 (principal); E10.628 Type 1 diabetes mellitus with other skin complications; D64.9 Anemia, unspecified; I25.5 Ischemic cardiomyopathy; G81.90 Hemiplegia, unspecified affecting unspecified side
CPT/HCPCS: 11042

== ENCOUNTER → 2023-08-10 13:32 | Outpatient (CLI) | payer MEDICARE, MEDICAID, SELFPAY ==
[2022-12-01 13:43] VITALS: BMI 21.7
== END ==
LOC: WC 13:33
PROVIDERS: Family Provider Nurse Practitioner Family; PCP Nurse Practitioner Family; Referring Provider Nurse Practitioner Family; Visit Provider Surgery
DX: L89.153 Pressure ulcer of sacral region, stage 3 (principal); E10.628 Type 1 diabetes mellitus with other skin complications; I25.5 Ischemic cardiomyopathy; I73.9 Peripheral vascular disease, unspecified; Z99.3 Dependence on wheelchair
CPT/HCPCS: 11042

== ENCOUNTER → 2023-08-24 10:25 | Outpatient (CLI) | payer MEDICARE, MEDICAID, SELFPAY ==
[2022-12-01 13:43] VITALS: BMI 21.7
== END ==
LOC: WC 10:25
PROVIDERS: Family Provider Nurse Practitioner Family; PCP Nurse Practitioner Family; Referring Provider Nurse Practitioner Family; Visit Provider Surgery
DX: L89.153 Pressure ulcer of sacral region, stage 3 (principal); E10.628 Type 1 diabetes mellitus with other skin complications; D64.9 Anemia, unspecified; G81.90 Hemiplegia, unspecified affecting unspecified side; I25.5 Ischemic cardiomyopathy; I73.9 Peripheral vascular disease, unspecified; M62.81 Muscle weakness (generalized); F17.210 Nicotine dependence, cigarettes, uncomplicated
CPT/HCPCS: 11042; 87070; 87075; 87077; 87147; 87186; 87205; 99213

== ENCOUNTER → 2023-09-09 09:27 | Outpatient (CLI) | payer MEDICARE, MEDICAID, SELFPAY ==
[2022-12-01 13:43] VITALS: BMI 21.7
--- NOTE | 2023-09-09 | DI.RAD.S_ITS ---
PROCEDURE: XR KUB INDICATIONS: kidney stones, ureteral stent TECHNIQUE: One view of the abdomen acquired. COMPARISON: [facility], CT, CT KIDNEY URETER BLADDER (KUB), 01/05/2023, 9:47. [facility], CR, XR KUB, 12/01/2022, 10:41. FINDINGS: Surgical changes and devices: Right double-J ureteral stent. Right iliac and femoral stents. Bowel: Scattered small bowel and colonic gas. No dilated loops of bowel seen. Stool in the right colon. Soft tissues: The previously seen small kidney stones are not well appreciated. No suspicious abdominal calcifications. Visualized solid organ contours appear normal in size. Bones: No suspicious bony lesions. IMPRESSION: The previously seen small kidney stones are not well appreciated. Right ureteral stent projects in the expected location. Somewhat prominent stool in the colon. Dictated by: Lencho Brock M.D. on 09/09/2023 at 10:21 Approved by: Lencho Brock M.D. on 09/09/2023 at 10:24
== END ==
LOC: RAD 09:31
PROVIDERS: Family Provider Nurse Practitioner Family; PCP Nurse Practitioner Family; Referring Provider Nurse Practitioner Family; Visit Provider Nurse Practitioner Family
DX: T83.192A Other mechanical complication of indwelling ureteral stent, initial encounter (principal); N20.0 Calculus of kidney; Z95.820 Peripheral vascular angioplasty status with implants and grafts
CPT/HCPCS: 74018

== ENCOUNTER → 2023-09-09 11:04 | Outpatient (CLI) | payer MEDICARE, MEDICAID, SELFPAY ==
[2022-12-01 13:43] VITALS: BMI 21.7
== END ==
PROVIDERS: Family Provider Nurse Practitioner Family; PCP Nurse Practitioner Family; Referring Provider Nurse Practitioner Family; Visit Provider Surgery
DX: L89.153 Pressure ulcer of sacral region, stage 3 (principal); E10.628 Type 1 diabetes mellitus with other skin complications; I73.9 Peripheral vascular disease, unspecified; D64.9 Anemia, unspecified; I25.5 Ischemic cardiomyopathy; G81.90 Hemiplegia, unspecified affecting unspecified side
CPT/HCPCS: 11042

== ENCOUNTER → 2023-09-30 10:11 | Outpatient (CLI) | payer MEDICARE, MEDICAID, SELFPAY ==
[2022-12-01 13:43] VITALS: BMI 21.7
== END ==
LOC: WC 10:12
PROVIDERS: Family Provider Nurse Practitioner Family; PCP Nurse Practitioner Family; Referring Provider Nurse Practitioner Family; Visit Provider Surgery
DX: L89.153 Pressure ulcer of sacral region, stage 3 (principal); E10.628 Type 1 diabetes mellitus with other skin complications; D64.9 Anemia, unspecified; I25.5 Ischemic cardiomyopathy; I73.9 Peripheral vascular disease, unspecified; G81.90 Hemiplegia, unspecified affecting unspecified side
CPT/HCPCS: 11042; 99213

== ENCOUNTER → 2023-10-04 11:59 | Outpatient (CLI) | payer MEDICARE, MEDICAID, SELFPAY ==
[2022-12-01 13:43] VITALS: BMI 21.7
--- NOTE | 2023-10-04 12:00 | DI.MRI.S_ITS ---
PROCEDURE: MR PELIS WO/W CON INDICATIONS: non-healing coccyx wound TECHNIQUE: Noncontrast coronal T1 spin echo and STIR, sagittal T1 spin echo with fat saturation and STIR, axial T1 spin echo and T2 fast spin echo with fat saturation. After the administration of contrast, axial/sagittal/coronal T1 spin echo with fat saturation through the pelvis. COMPARISON: None. FINDINGS: Image quality: Excellent. Bones: The visualized pelvic osseous structures shows subtle area of marrow edema involving right posterior periphery of upper coccyx with subtle cortical erosive changes concerning for osteomyelitis in this area. Questionable contrast enhancement is seen in this area. No other area of abnormal marrow signal. No acute fracture or dislocation. Osteoarthritic changes are no in bilateral hip joints. Postsurgical changes are seen in right proximal femur. No other area of abnormal intraosseous enhancement. Soft tissues: There is full-thickness decubitus ulcer at the level of lower sacrum/coccyx just to the right of midline with underlying subcutaneous soft tissue edema and mild contrast enhancement concerning for cellulitis. No discrete drainable peripherally enhancing fluid collection. No definite underlying right gluteus eduar muscle involvement. There is no pelvic free fluid. No pelvic lymphadenopathy by size criteria. IMPRESSION: 1. Full-thickness ulceration involving lower sacrum/upper coccygeal level just to the right of midline with surrounding cellulitis. No discrete drainable abscess collection. No gross pelvic muscle signal abnormalities. 2. Edema and subtle erosive changes involving right posterior periphery of upper coccyx and show questionable enhancement concerning for osteomyelitis in this area. No other area of abnormal marrow signal or enhancement is seen. 3. No gross pelvic lymphadenopathy by size criteria. No pelvic free fluid. Dictated by: Nam Sapp M.D. on 10/04/2023 at 16:55 Approved by: Nam Sapp M.D. on 10/04/2023 at 17:07
== END ==
PROVIDERS: Family Provider Nurse Practitioner Family; PCP Nurse Practitioner Family; Referring Provider Surgery; Visit Provider Surgery
DX: L89.153 Pressure ulcer of sacral region, stage 3 (principal); L03.818 Cellulitis of other sites
CPT/HCPCS: 72197; A9579

== ENCOUNTER 2023-10-08 04:57 | Emergency (ER) | payer MEDICARE, MEDICAID, SELFPAY ==
[2022-12-01 13:43] VITALS: BMI 21.7
[2023-10-08] VITALS (36 sets, daily range): BP systolic 108–163; BP diastolic 53–92; PULSE 65–94; RESP 15–24; TEMP 36.8; O2SAT 92–100
[2023-10-08 05:40] LABS: Add Manual Diff / Slide Review NO; Basophils Absolute Auto 100 /uL (0-100); Basophils Percent Auto 0.5 % (0-2); Eosinophils Absolute Auto 100 /uL (0-450); Eosinophils Percent Auto 0.5 % (2-4); Hematocrit 34.4 % (41-53); Hemoglobin 11.4 g/dL (13.5-17.5); Lymphocytes Absolute Auto 700 /uL (1100-4500); Lymphocytes Percent Auto 3.7 % (25-40); Mean Corpuscular HGB Conc 33.2 % (30-36); Mean Corpuscular Hemoglobin 28.1 PG (26-34); Mean Corpuscular Volume 84.6 fL (80-100); Monocytes Absolute Auto 1100 /uL (0-900); Monocytes Percent Auto 5.6 % (3-14); Neutrophils Absolute Auto 17800 /uL (1500-7000); Neutrophils Percent Auto 89.7 % (50-75); Platelet Count 427 X10^3/uL (150-400); Red Blood Cell Count 4.07 X10^6/uL (4.5-5.9); Red Cell Distribution Width 14.9 % (11.6-14.8); White Blood Cell Count 19.9 X10^3/uL (4.5-11.0)
[2023-10-08 05:51] LABS: Alanine Aminotransferase 16 IU/L (<50); Albumin 3.5 g/dL (3.5-5.0); Albumin Globulin Ratio 1.2 (1.0-2.8); Alkaline Phosphatase 140 U/L (38-126); Aspartate Aminotransferase 21 IU/L (17-59); BUN Creatinine Ratio 31.8 (6-22); Bilirubin Total 0.5 mg/dL (0.2-1.3); Blood Urea Nitrogen 28 mg/dL (9-20); Carbon Dioxide 27 mmol/L (22-32); Chloride 101 mmol/L (98-107); Estimated Glomerular Filt Rate > 60 mL/min (>60); Globulin 2.9 g/dL (1.7-4.1); Glucose 188 mg/dL (80-110); HEMOLYSIS 42 (0-50); Potassium 3.8 mmol/L (3.4-5.1); Sodium 133 mmol/L (137-145); Total Protein 6.4 g/dL (6.3-8.2)
[2023-10-08 05:52] LABS: Magnesium 1.9 mg/dL (1.6-2.3)
[2023-10-08 06:00] LABS: Bilirubin Urine UA NEGATIVE (NEGATIVE); Color Urine UA YELLOW; Glucose Urine UA NEGATIVE (Negative); Ketones Urine UA TRACE (NEGATIVE); Leukocyte Esterase Urine UA 2+ (NEGATIVE); Nitrite Urine UA POSITIVE (Negative); Occult Blood Urine UA 2+ (Negative); Protein Urine UA NEGATIVE (Negative); Urobilinogen Urine UA 0.2 E.U./dL (0.2); pH Urine UA 5.5 (4.5-8.0)
[2023-10-08 06:03] LABS: Appearance Urine UA SL CLOUDY
[2023-10-08 06:06] LABS: Bacteria Urine Moderate (10-30); RBC Urine 5-10/HPF (0-5/HPF); Squamous Epithelial Cell Urine 0-1 /HPF (0-5/HPF); Urine Volume 10mL (spun); WBC Urine 30-100/HPF (0-5/HPF)
[2023-10-08 06:07] LABS: Culture Indicated Urine Specimen Cultured
--- NOTE | 2023-10-08 07:30 | ED.NAVMDI ---
HPI - Nausea/Vomiting/Diarrhea General Chief complaint: Nausea/Vomiting/Diarrhea Stated complaint: N/V/D Time Seen by Provider: 10/08/23 05:34 Source: EMS Mode of arrival: EMS History of Present Illness HPI Narrative: 68-year-old male resident at [facility] for the last 8 years, history of remote right BKA, endorses 3 days duration of nausea with nonbloody emesis multiple episodes, also loose stools and crampy abdominal pain, no black or red stools. He lives with another person in the same room, that resident does not have any recent diarrhea or vomiting problems. He denies chest pain shortness of breath. He denies fevers or chills. He has not aware of being on any recent course of antibiotics. He denies history of Crohn's disease, colitis, diverticulitis. He denies frequency of urination, painful urination, change in urine color. He denies headache, neck pain, photophobia, sore throat, sinus congestion symptoms. No injury, fall, new activities. No treatments apparently tried for the nausea or vomiting, nor for the diarrhea, decreased appetite. Related Data Home Medications Medication Instructions Recorded Confirmed acetaminophen 325 mg tablet 1,000 mg PO TID PRN pain/fever ##0 06/29/17 12/01/22 atorvastatin 80 mg tablet 80 mg PO BEDTIME ##0 06/29/17 12/01/22 clopidogrel 75 mg tablet 75 mg PO DAILY ##0 06/29/17 12/01/22 levothyroxine 50 mcg tablet 50 mcg PO QPM ##0 06/29/17 12/01/22 omeprazole 20 mg capsule,delayed 40 mg PO DAILY ##0 06/29/17 12/01/22 release insulin aspart U-100 100 unit/mL See Rx Instructions .Route .COMPLEX 11/25/17 12/01/22 (3 mL) subcutaneous pen (Novolog FlexPen U-100 Insulin aspart) cholecalciferol (vitamin D3) 25 2,000 unit PO DAILY 08/13/18 12/01/22 mcg (1,000 unit) capsule fluticasone propionate 50 1 spray intranasal BID 08/13/18 12/01/22 mcg/actuation nasal spray,suspension hydroxyzine pamoate 25 mg capsule 25 - 50 mg PO Q6H PRN pain/spasms 08/13/18 12/01/22 mirtazapine 15 mg tablet 15 mg PO BEDTIME 08/13/18 12/01/22 ondansetron 4 mg disintegrating 4 - 8 mg PO Q4H PRN Nausea 08/13/18 12/01/22 tablet duloxetine 60 mg capsule,delayed 60 mg PO BEDTIME 03/02/19 12/01/22 release glucagon (human recombinant) 1 mg 1 mg IM PRN PRN blood glucose <60 03/02/19 12/01/22 solution for injection (Glucagon Emergency Kit) nystatin 100,000 unit/gram topical 1 applic topical BID PRN yeast 03/02/19 12/01/22 cream aluminum-mag hydroxide-simethicone 10 ml PO DAILY PRN Heartburn 07/04/21 12/01/22 200 mg-200 mg-20 mg/5 mL oral susp aspirin 81 mg tablet,delayed 81 mg PO DAILY 07/04/21 12/01/22 release lubiprostone 24 mcg capsule 24 mcg PO BID 07/04/21 12/01/22 (Amitiza) oxycodone myristate 18 mg capsule 18 mg PO BID 07/04/21 12/01/22 sprinkle extended release 12hr(DON'T CRUSH) (Xtampza ER) sertraline 50 mg tablet 50 mg PO DAILY 07/04/21 12/01/22 tamsulosin 0.4 mg capsule 0.4 mg PO BEDTIME 07/04/21 12/01/22 bisacodyl 5 mg tablet 5 - 10 mg PO DAILY PRN Constipation 12/01/22 12/01/22 docusate sodium 100 mg tablet 200 mg PO TID 12/01/22 12/01/22 furosemide 80 mg tablet 80 mg PO QAM 12/01/22 12/01/22 insulin glargine 100 unit/mL (3 17 unit SUBCUT BEDTIME 12/01/22 12/01/22 mL) subcutaneous pen (Lantus Solostar U-100 Insulin) lorazepam 1 mg tablet 1 mg PO BEDTIME PRN Insomnia 12/01/22 12/01/22 magnesium hydroxide 400 mg/5 mL 30 ml PO DAILY PRN Constipation 12/01/22 12/01/22 oral suspension (Milk of Magnesia) metoclopramide HCl 5 mg/5 mL oral 10 mg PO QAC 12/01/22 12/01/22 solution oxymetazoline 0.05 % nasal spray 2 spray intranasal Q12H PRN 12/01/22 12/01/22 nosebleed propylene glycol 1 %-glycerin 0.3 1 drp ophthalmic (eye) Q1H PRN Dry 12/01/22 12/01/22 % eye drops Eyes sennosides 8.6 mg tablet (senna) 17.2 mg PO BID 12/01/22 12/01/22 Previous Rx's Medication Instructions Recorded bisacodyl 10 mg rectal suppository 10 mg IA DAILY PRN Constipation #0 07/07/21 ea naloxone 0.4 mg/mL injection 0.4 mg IM Q15-20M PRN Opioid 07/07/21 solution Overdose #0 mL oxycodone 5 mg tablet 20 mg (4 x 5 mg) PO Q4H PRN pain 7 07/07/21 days #40 tabs polyethylene glycol 3350 17 17 g PO DAILY PRN Constipation #0 07/07/21 gram/dose oral powder grams lorazepam 1 mg tablet (Ativan) 1 mg PO TID PRN nausea and 07/09/22 vomiting #10 tabs ketorolac 10 mg tablet 10 mg PO Q6H PRN pain #14 tabs 11/28/22 cefdinir 300 mg capsule 300 mg PO BID #20 caps 01/05/23 cefdinir 300 mg capsule 300 mg PO BID #20 caps 01/05/23 cephalexin 500 mg capsule 500 mg PO TID #30 caps 06/23/23 levofloxacin 500 mg tablet 500 mg PO DAILY #7 tabs 06/25/23 ciprofloxacin HCl 500 mg tablet 500 mg PO BID 10 days #20 tabs 10/08/23 metronidazole 500 mg tablet 500 mg PO TID #10 tabs 10/08/23 Allergies Allergy/AdvReac Type Severity Reaction Status Date / Time amitriptyline Allergy Verified 12/01/22 07:38 pollen extracts Allergy Verified 12/01/22 07:38 codeine [CODEINE] AdvReac Unknown nausea Verified 12/01/22 07:38 Review of Systems Review of Systems Narrative: As per HPI Patient History Medical History (Updated 10/08/23 @ 18:09 by Dani Allison MD) C3 spinal cord injury C4 spinal cord injury Hypertension Hyperlipidemia Gastroesophageal reflux disease CVA (cerebral vascular accident) Diabetes Surgical History History of carotid endarterectomy History of coronary artery stent placement No pertinent past surgical history Family History Mother Cancer Father Lung disease Hyperlipidemia Brother Lupus Social History household members: other Smoking Status: Current every day smoker alcohol intake: former substance use type: does not use additional social history: He currently resides in He currently resides in [facility]. Smoking Status: Current every day smoker tobacco type: cigarettes alcohol intake frequency: other Substance Use Type: does not use Exam Narrative Exam Narrative: GENERAL: Well-developed patient, in mild distress. HEAD: Atraumatic. Normocephalic. EYES: Pupils equal round and reactive. Extraocular motions intact. No scleral icterus. No injection or drainage. ENT: Nose without bleeding, purulent drainage. Throat without erythema, tonsillar hypertrophy or exudate. Airway patent. NECK: Trachea midline. Non tender CARDIOVASCULAR: Regular rate and rhythm without murmurs, gallops, or rubs. RESPIRATORY: Clear to auscultation. Breath sounds equal bilaterally. No wheezes, rales, or rhonchi. GASTROINTESTINAL: Abdomen soft, non-tender, nondistended. No tenderness, nonrigid. Bowel tones not particularly increased, no rushes or tinkles EXTREMITIES: Status post right remote BKA, stump site pink, no redness, no lesion, well-healed, good cap refill. No edema or joint tenderness. BACK: Nontender without deformity or crepitance. No flank tenderness. NEURO: AOx3. Nonfocal neuro exam SKIN: No rash or erythema of visible areas Initial Vital Signs Initial Vital Signs: Vital Signs Pulse Rate 94 H 10/08/23 05:01 Pulse Oximetry 96 10/08/23 05:01 Course Orders Ordered: Discontinued Medications Ciprofloxacin (Ciprofloxacin 250 Mg Tablet) 500 mg PO NOW ONE Stop: 10/08/23 18:02 Last Admin: 10/08/23 18:38 Dose: 500 mg Documented By: SPF Ceftriaxone Sodium 1,000 mg/ (Sodium Chloride) 100 mls @ 200 mls/hr IV NOW ONE Stop: 10/08/23 08:53 Last Infusion: 10/08/23 10:39 Dose: Infused Documented By: Admin: 10/08/23 09:57 Dose: 200 mls/hr Documented By: TAMAR Sodium Chloride (Normal Saline 0.9%) 1,000 mls @ 1,000 mls/hr IV BOLUS ONE Stop: 10/08/23 09:57 Last Infusion: 10/08/23 11:52 Dose: Infused Documented By: Admin: 10/08/23 10:00 Dose: 1,000 mls/hr Documented By: TAMAR Metronidazole (Metronidazole 500 Mg Tablet) 500 mg PO NOW ONE Stop: 10/08/23 18:02 Last Admin: 10/08/23 18:37 Dose: 500 mg Documented By: TAMAR Vital Signs Vital signs: Vital Signs - 8 hr 10/08/23 10:29 10/08/23 10:30 10/08/23 10:30 Pulse Rate 83 85 Respiratory Rate Blood Pressure 148/66 H Pulse Oximetry 95 96 Oxygen Delivery Method 10/08/23 11:00 10/08/23 11:00 10/08/23 11:30 Pulse Rate 82 Respiratory Rate Blood Pressure 158/70 H 147/67 H Pulse Oximetry 97 Oxygen Delivery Method 10/08/23 11:30 10/08/23 11:57 10/08/23 12:00 Pulse Rate 80 65 Respiratory Rate Blood Pressure 139/67 Pulse Oximetry 97 Oxygen Delivery Method Room Air 10/08/23 12:13 10/08/23 12:30 10/08/23 12:30 Pulse Rate 77 79 Respiratory Rate Blood Pressure 139/64 Pulse Oximetry 92 93 Oxygen Delivery Method Room Air Room Air 10/08/23 13:00 10/08/23 13:00 10/08/23 13:30 Pulse Rate 78 Respiratory Rate Blood Pressure 151/65 H 150/69 H Pulse Oximetry 93 Oxygen Delivery Method 10/08/23 13:30 10/08/23 14:00 10/08/23 14:00 Pulse Rate 76 82 Respiratory Rate Blood Pressure 160/70 H Pulse Oximetry 95 96 Oxygen Delivery Method Room Air 10/08/23 14:30 10/08/23 14:30 10/08/23 15:00 Pulse Rate 84 Respiratory Rate Blood Pressure 145/92 H 163/73 H Pulse Oximetry 97 Oxygen Delivery Method Room Air 10/08/23 15:00 10/08/23 15:30 10/08/23 15:30 Pulse Rate 80 80 Respiratory Rate 24 22 Blood Pressure 154/67 H Pulse Oximetry 92 93 Oxygen Delivery Method 10/08/23 16:00 10/08/23 16:00 10/08/23 16:30 Pulse Rate 78 81 Respiratory Rate 20 20 Blood Pressure 131/59 L Pulse Oximetry 93 93 Oxygen Delivery Method 10/08/23 16:30 10/08/23 17:00 10/08/23 17:00 Pulse Rate 82 Respiratory Rate 21 Blood Pressure 144/64 H 143/69 H Pulse Oximetry 96 Oxygen Delivery Method 10/08/23 17:30 10/08/23 17:30 Pulse Rate 85 Respiratory Rate 22 Blood Pressure 126/61 Pulse Oximetry 95 Oxygen Delivery Method Room Air MDM - Nausea/Vomiting/Diarrhea Differential Diagnosis Differential diagnosis: Likely traveler's diarrhea, food poisoning, gastroenteritis, clostridium difficile infection and other Lab Data Attestation: I reviewed the patient's lab results. 10/08/23 05:00 10/08/23 05:00 Labs: Lab Results 10/08/23 10/08/23 10/08/23 Range/Units 05:00 05:53 12:15 WBC 19.9 H (4.5-11.0) X10^3/uL RBC 4.07 L (4.5-5.9) X10^6/uL Hgb 11.4 L (13.5-17.5) g/dL Hct 34.4 L (41-53) % MCV 84.6 (80-100) fL MCH 28.1 (26-34) PG MCHC 33.2 (30-36) % RDW 14.9 H (11.6-14.8) % Plt Count 427 H (150-400) X10^3/uL Neut % (Auto) 89.7 H (50-75) % Lymph % (Auto) 3.7 L (25-40) % [place] % (Auto) 5.6 (3-14) % Eos % (Auto) 0.5 L (2-4) % Baso % (Auto) 0.5 (0-2) % Neut # (Auto) 73630 H (8442-3570) /uL Lymph # (Auto) 700 L (8580-0326) /uL [place] # (Auto) 1100 H (0-900) /uL Eos # (Auto) 100 (0-450) /uL Baso # (Auto) 100 (0-100) /uL Sodium 133 L (137-145) mmol/L Potassium 3.8 (3.4-5.1) mmol/L Chloride 101 (98-107) mmol/L Carbon Dioxide 27 (22-32) mmol/L BUN 28 H (9-20) mg/dL Creatinine 0.88 (0.66-1.25) mg/dL Estimated GFR > 60 (>60) mL/min BUN/Creatinine Ratio 31.8 H (6-22) Glucose 188 H (80-110) mg/dL Calcium 9.0 (8.4-10.2) mg/dL Magnesium 1.9 (1.6-2.3) mg/dL Total Bilirubin 0.5 (0.2-1.3) mg/dL AST 21 (17-59) IU/L ALT 16 (<50) IU/L Alkaline Phosphatase 140 H (38-126) U/L Troponin I 0.020 (0.01-0.034) ng/mL Total Protein 6.4 (6.3-8.2) g/dL Albumin 3.5 (3.5-5.0) g/dL Globulin 2.9 (1.7-4.1) g/dL Albumin/Globulin Ratio 1.2 (1.0-2.8) Urine Color Yellow Urine Appearance Sl cloudy Urine pH 5.5 (4.5-8.0) Ur Specific [place] 1.010 (1.000-1.035) Urine Protein Negative (Negative) Urine Glucose (UA) Negative (Negative) g/dL Urine Ketones Trace H (NEGATIVE) Urine Occult Blood 2+ H (Negative) Urine Nitrate Positive H (Negative) Urine Bilirubin Negative (NEGATIVE) Urine Urobilinogen 0.2 (0.2) E.U./dL Ur Leukocyte Esterase 2+ H (NEGATIVE) Urine RBC 5-10/hpf H (0-5/HPF) Urine WBC 30-100/hpf H (0-5/HPF) Ur Squamous Epith Cells 0-1 /hpf (0-5/HPF) Urine Bacteria Moderate (10-30) H (None) Ur Culture Indicated? Specimen cultured Vol Urine Centrifuged 10ml (spun) Stl C. cayetanensis PCR Not detected (Not Detect) Stool Rotavirus (PCR) Not detected (Not Detect) Stool Adenovirus (PCR) Not detected (Not Detect) Stool Astrovirus (PCR) Not detected (Not Detect) Stool Cryptosporidium PCR Not detected (Not Detect) Stl E.coli Shiga Tox PCR Not detected (Not Detect) St Sh/Enteroin Ecoli PCR Not detected (Not Detect) Stl Enterotoxigenic E PCR Not detected (Not Detect) Stool EPEC (PCR) Not detected (Not Detect) Stl E. histolytica PCR Not detected (Not Detect) Stool Giardia Lamblia PCR Not detected (Not Detect) Stool Sapovirus (PCR) Not detected (Not Detect) Stl P. shigelloides PCR Not detected (Not Detect) St Y.enterocolitica PCR Not detected (Not Detect) Stool Vibrio (PCR) Not detected (Not Detect) Stl Vibrio cholerae PCR Not detected (Not Detect) Stl Enteroaggr Ecoli PCR Not detected (Not Detect) Stl Norovirus GI/GII PCR Not detected (Not Detect) Campylobacter (PCR) Not detected (Not Detect) C. difficile Tox (PCR) Not detected (Not Detect) Salmonella (PCR) Not detected (Not Detect) Point of Care Testing Glucose POC 209 MDM Narrative Medical decision making narrative: 68-year-old male with 3 days duration nausea vomiting and diarrhea, no black or red color to emesis or stool, afebrile, sirs screen negative, abdomen benign. On screening labs as white blood cell count [id number] noted, GFR creatinine adequate, CT abdomen and pelvis imaging requested. Stool studies requested. IV fluids, IV Zofran antiemetic. Urinalysis suspicious for urinary tract infection, urine culture, blood cultures, IV ceftriaxone. Await results CT abdomen and pelvis imaging. CT abdomen and pelvis with IV contrast. Impressions: ?There are extensive changes of pancolitis, most impressive distally. Consider C diff colitis or other infectious etiology. Severe coronary artery calcifications. Extensive peripheral vascular disease with probable hemodynamically significant common iliac artery stenotic disease bilaterally. Right ureteral stent in place. Mild prominence of the right collecting system. Distended gallbladder with mild dilatation of the biliary tree without obstructing lesion noted. Mild bibasilar atelectasis. If clinically suspected biliary obstruction, consider MR CP on a non emergent basis to identify whether common bile duct stone is present. Stool GI panel negative. Stool C diff toxin negative. Given IV antibiotics for urinary tract infection, no right upper quadrant abdominal discomfort, doubt clinically acute cholecystitis at this time, ureteral stents in place but no obstructive changes noted on ipsilateral side kidney ureter, trial of oral antibiotics. We will discharge patient on ciprofloxacin and metronidazole, should give urinary coverage, also colitis coverage. Could consider Augmentin for colitis but likely less effective for urinary tract infection coverage. No bleeding symptoms, no obstruction, no fevers or chills, no sepsis, continue oral antibiotics as an outpatient for now. Discharge back to long-term facility. Critical Care Time Critical Care Time Critical Care Time: Yes Total Critical Care Time: 35 Attestation: The high probability of a clinically significant, sudden or life threatening deterioration of the [gastrointestinal, genitourinary] system(s) required my full and direct attention, intervention and personal management. The aggregate critical care time was [35] minutes. This time is in addition to time spent performing reported procedures but includes the following: [x] Data Review and interpretation [x] Patient assessment and monitoring of vital signs [x] Documentation [x] Medication orders and management Discharge Plan Departure Patient Disposition: Home Clinical Impression: Abdominal pain, Urinary tract infection, Colitis Activity Restrictions/Additional Instructions: Recent diarrhea, no fever on triage, abdominal discomfort, history of ureteral stenting, CT abdomen and pelvis imaging showed colitis changes. A stool was sent for lab testing, negative for pathogens tested, also negative for C diff toxin. Urinalysis suspicious for urine infection, though there was no obstruction in the urinary system with a ureteral stent in place. IV antibiotics initiated. Discharged on course of oral ciprofloxacin and oral metronidazole antibiotics, that hopefully will cover for colitis infection of the large colon, and also urinary tract infection. Recheck urine culture results in the next 48 hours with your medical provider through your long-term facility. Take antibiotics as directed. Return to this/nearest emergency department for any change worsening symptoms or any concerns prior Prescriptions: New ciprofloxacin HCl 500 mg tablet 500 mg PO BID 10 Days Qty: 20 0RF metronidazole 500 mg tablet 500 mg PO TID Qty: 10 0RF No Action atorvastatin 80 MG tablet 80 mg PO BEDTIME Qty: 0 clopidogrel 75 MG tablet 75 mg PO DAILY Qty: 0 levothyroxine 50 MCG tablet 50 mcg PO QPM Qty: 0 acetaminophen 325 MG tablet 1,000 mg PO TID PRN (Reason: pain/fever) Qty: 0 omeprazole 20 MG capsule,delayed release(DR/EC) 40 mg PO DAILY Qty: 0 tamsulosin 0.4 mg capsule 0.4 mg PO BEDTIME sertraline 50 mg tablet 50 mg PO DAILY Xtampza ER 18 mg cap,sprinkl,ER12hr(DONT CRUSH) 18 mg PO BID alum-mag hydroxide-simeth 200-200-20 mg/5 mL Suspension 10 ml PO DAILY PRN (Reason: Heartburn) Rx Instructions: 10-20mls lubiprostone [Amitiza] 24 mcg capsule 24 mcg PO BID aspirin 81 mg tablet,delayed release (DR/EC) 81 mg PO DAILY naloxone 0.4 mg/mL solution 0.4 mg IM Q15-20M PRN (Reason: Opioid Overdose) Qty: 0 0RF bisacodyl 10 MG suppository 10 mg IA DAILY PRN (Reason: Constipation) Qty: 0 0RF polyethylene glycol 3350 17 gram/dose powder 17 g PO DAILY PRN (Reason: Constipation) Qty: 0 0RF oxycodone 5 mg tablet 20 mg PO Q4H PRN (Reason: pain) 7 Days Qty: 40 0RF Rx Instructions: hold if too sedated lorazepam [Ativan] 1 mg tablet 1 mg PO TID PRN (Reason: nausea and vomiting) Qty: 10 0RF ketorolac 10 mg tablet 10 mg PO Q6H PRN (Reason: pain) Qty: 14 0RF Rx Instructions: for 5 days cephalexin 500 mg capsule 500 mg PO TID Qty: 30 0RF levofloxacin 500 mg tablet 500 mg PO DAILY Qty: 7 0RF mirtazapine 15 mg Tablet 15 mg PO BEDTIME fluticasone propionate 50 mcg/actuation Ovalo,Suspension 1 spray INTRANASAL BID cholecalciferol (vitamin D3) 1,000 unit Capsule 2,000 unit PO DAILY hydroxyzine pamoate 25 mg Capsule 25 - 50 mg PO Q6H PRN (Reason: pain/spasms) ondansetron 4 mg Tablet,Disintegrating 4 - 8 mg PO Q4H PRN (Reason: Nausea) Patient Comments: 1 - 2 prn nausea Glucagon Emergency Kit (human) 1 mg Recon Soln 1 mg IM PRN MDD ` PRN (Reason: blood glucose <60) duloxetine 60 mg capsule,delayed release(DR/EC) 60 mg PO BEDTIME nystatin 100,000 unit/gram Cream 1 applic TOPICAL BID PRN (Reason: yeast) furosemide 80 mg Tablet 80 mg PO QAM lorazepam 1 mg Tablet 1 mg PO BEDTIME PRN (Reason: Insomnia) docusate sodium 100 mg Tablet 200 mg PO TID bisacodyl 5 mg Tablet 5 - 10 mg PO DAILY PRN (Reason: Constipation) propylene glycol-glycerin 1-0.3 % Drops 1 drp OPHTHALMIC (EYE) Q1H PRN (Reason: Dry Eyes) insulin glargine [Lantus Solostar U-100 Insulin] 100 unit/mL (3 mL) Insulin Pen 17 unit SUBCUT BEDTIME sennosides [senna] 8.6 mg Tablet 17.2 mg PO BID metoclopramide HCl 5 mg/5 mL Solution 10 mg PO QAC Rx Instructions: before meals for chronic nausea magnesium hydroxide [Milk of Magnesia] 400 mg/5 mL Suspension 30 ml PO DAILY PRN (Reason: Constipation) oxymetazoline 0.05 % Ovalo,Non-Aerosol 2 spray INTRANASAL Q12H PRN (Reason: nosebleed) cefdinir 300 mg capsule 300 mg PO BID Qty: 20 0RF cefdinir 300 mg capsule 300 mg PO BID Qty: 20 0RF insulin aspart U-100 [Novolog FlexPen U-100 Insulin] 100 unit/mL insulin pen See Rx Instructions .ROUTE .COMPLEX Rx Instructions: Per [facility] med list, insulin instructions are per Ray who directs his own dosing of insulin based on what he is about to consume w/ meals Referrals: Eli Montanez ARNP [Primary Care Provider] - Stand Alone Forms: Patient Portal/API
--- NOTE | 2023-10-08 08:55 | DI.CT.S_ITS ---
PROCEDURE: CT ABDOMEN PELVIS W CON INDICATIONS: abd pain, WBC 19k TECHNIQUE: After the administration of intravenous contrast, axial sections acquired from the lung bases to the pubic symphysis. Coronal and sagittal reformats were performed. For radiation dose reduction, the following was used: automated exposure control, adjustment of mA and/or kV according to patient size. COMPARISON: [facility], CT, CT KIDNEY URETER BLADDER (KUB), 01/05/2023, 9:47. [facility], CT, CT ABDOMEN PELVIS W CON, 07/09/2022, 7:50. FINDINGS: Image quality: Diagnostic. Lower Chest: Severe coronary artery calcifications. Mild bibasilar atelectasis and minimal pleural fluid. ABDOMEN: Liver: No solid mass. Gallbladder: Gallbladder is distended. Biliary ducts: Mild dilatation of the biliary tree without identification of an obstructing mass. Pancreas: No ductal dilation. Diffuse pancreatic atrophy. Spleen: Size is within normal limits. Adrenal Glands: No adrenal nodules. Kidneys and Ureters: Again noted is the presence of a right double-J ureteral stent. There are nonobstructing right renal stones. There is mild prominence of the right collecting system. Left ureter and left kidney are unremarkable. Stomach and Bowel: Diffuse inflammation of the colon consistent with diffuse colitis, most notably involving the rectum and sigmoid. Consider C difficile colitis. Fecal incontinence. Mildly prominent small bowel. Peritoneum: No abnormal intraperitoneal fluid. No free air. Ventral Wall: No significant ventral hernia. Abdominal Nodes: No retroperitoneal or mesenteric adenopathy by size criteria. Vessels: Aorta and inferior vena cava are normal in size. Extensive atherosclerotic disease involving the aorta and iliacs. There is probable hemodynamically significant bilateral common iliac artery stenotic disease. There is a right iliac stent. PELVIS: Pelvic Organs: Enlarged prostate.. Bladder: No bladder wall thickening, accounting for underdistention. Pelvic Nodes: No enlarged lymph nodes. Miscellaneous: Small bilateral fat containing inguinal hernias. Bones: No aggressive osseous abnormality. Chronic severe L1 compression fracture. IMPRESSION: 1. There are extensive changes of pain colitis, most impressive distally. Consider C difficile colitis or other infectious etiology. 2. Severe coronary artery calcifications. 3. Extensive peripheral vascular disease with probable hemodynamically significant common iliac artery stenotic disease bilaterally. 4. Right ureteral stent in place. Mild prominence of the right collecting system. 5. Distended gallbladder and mild dilatation of the biliary tree without obstructing lesion noted. 6. Mild bibasilar atelectasis. Comment: If clinically suspect biliary obstruction, consider MRCP on a nonemergent basis to identify whether common duct stone is present. Dictated by: Gordon Agudelo M.D. on 10/08/2023 at 10:12 Approved by: Gordon Agudelo M.D. on 10/08/2023 at 10:23
[2023-10-08] MEDS: cefTRIAXone 1,000 MG in SODIUM CHLORIDE 0.9% 100 ML 200 MG IV (09:57)
[2023-10-08] MEDS: SODIUM CHLORIDE 0.9% 1,000 ML 1000 ML IV (10:00)
--- NOTE | 2023-10-08 13:10 | PC.NURSE ---
Pt has soiled dressing on sacrum from bowel movement. Wound cleaned and applied new gentle border bandage. Pt denies pain. No drainage noted.
[2023-10-08 14:04] LABS: Adenovirus F 40/41 Not Detected (Not Detect); Astrovirus Not Detected (Not Detect); Campylobacter Not Detected (Not Detect); Clostridium difficile toxin AB Not Detected (Not Detect); Cryptosporidium Not Detected (Not Detect); Cyclospora cayetanensis Not Detected (Not Detect); Entamoeba histolytica Not Detected (Not Detect); Enteroaggregative E.coli Not Detected (Not Detect); Enteropathogenic E.coli Not Detected (Not Detect); Enterotoxigenic E.coli It/st Not Detected (Not Detect); Giardia lamblia Not Detected (Not Detect); Norovirus GI/GII Not Detected (Not Detect); Plesiomonsa shigelloides Not Detected (Not Detect); Rotavirus A Not Detected (Not Detect); Salmonella Not Detected (Not Detect); Sapovirus Not Detected (Not Detect); Shiga-like toxin-prod E.coli Not Detected (Not Detect); Shigella/Enteroinvasive E.coli Not Detected (Not Detect); Vibrio Not Detected (Not Detect); Vibrio cholerae Not Detected (Not Detect); Yersinia enterocolitica Not Detected (Not Detect)
[2023-10-08] MEDS: metroNIDAZOLE 500 MG TABLET PO (18:37)
[2023-10-08] MEDS: CIPROFLOXACIN 250 MG TABLET 500 MG PO (18:38)
== END 2023-10-08 20:06 | disposition home or self-care (01) ==
PROVIDERS: Emergency Medicine; Emergency Provider Emergency Medicine; Family Provider Nurse Practitioner Family; PCP Nurse Practitioner Family
DX: K52.9 Noninfective gastroenteritis and colitis, unspecified (principal); N39.0 Urinary tract infection, site not specified; R10.9 Unspecified abdominal pain
CPT/HCPCS: 36415; 74177; 80053; 81001; 82962; 83735; 84484; 85025; 87040; 87077; 87086; 87186; 87507; 96365; 99284; 99291; J0696; Q9967

== ENCOUNTER → 2023-10-12 08:11 | Outpatient (ROUT) | payer MEDICARE, MEDICAID, SELFPAY ==
[2022-12-01 13:43] VITALS: BMI 21.7
[2023-10-12 08:54] LABS: Add Manual Diff / Slide Review NO; Basophils Absolute Auto 100 /uL (0-100); Basophils Percent Auto 1.2 % (0-2); Eosinophils Absolute Auto 600 /uL (0-450); Hematocrit 32.9 % (41-53); Hemoglobin 10.9 g/dL (13.5-17.5); Lymphocytes Absolute Auto 2300 /uL (1100-4500); Lymphocytes Percent Auto 26.2 % (25-40); Mean Corpuscular HGB Conc 33.3 % (30-36); Mean Corpuscular Hemoglobin 28.1 PG (26-34); Mean Corpuscular Volume 84.4 fL (80-100); Monocytes Absolute Auto 800 /uL (0-900); Monocytes Percent Auto 8.7 % (3-14); Neutrophils Absolute Auto 4900 /uL (1500-7000); Neutrophils Percent Auto 56.9 % (50-75); Platelet Count 442 X10^3/uL (150-400); Red Blood Cell Count 3.89 X10^6/uL (4.5-5.9); Red Cell Distribution Width 15.3 % (11.6-14.8); White Blood Cell Count 8.7 X10^3/uL (4.5-11.0)
== END ==
PROVIDERS: Family Provider Nurse Practitioner Family; PCP Nurse Practitioner Family; Visit Provider Surgery
DX: D64.9 Anemia, unspecified (principal)
CPT/HCPCS: 36415; 85025

== ENCOUNTER → 2023-10-21 09:33 | Outpatient (CLI) | payer MEDICARE, MEDICAID, SELFPAY ==
[2022-12-01 13:43] VITALS: BMI 21.7
== END ==
PROVIDERS: Family Provider Nurse Practitioner Family; PCP Nurse Practitioner Family; Referring Provider Nurse Practitioner Family; Visit Provider Surgery
DX: L89.153 Pressure ulcer of sacral region, stage 3 (principal); E10.628 Type 1 diabetes mellitus with other skin complications; I73.9 Peripheral vascular disease, unspecified; I25.5 Ischemic cardiomyopathy; D64.9 Anemia, unspecified; G81.90 Hemiplegia, unspecified affecting unspecified side; Z99.3 Dependence on wheelchair
CPT/HCPCS: 11042; 99213

== ENCOUNTER → 2023-11-02 10:12 | Outpatient (CLI) | payer MEDICARE, MEDICAID, SELFPAY ==
[2022-12-01 13:43] VITALS: BMI 21.7
== END ==
LOC: WC 10:13
PROVIDERS: Family Provider Nurse Practitioner Family; PCP Nurse Practitioner Family; Referring Provider Nurse Practitioner Family; Visit Provider Surgery
DX: L89.153 Pressure ulcer of sacral region, stage 3 (principal); E10.628 Type 1 diabetes mellitus with other skin complications; M46.28 Osteomyelitis of vertebra, sacral and sacrococcygeal region; I73.9 Peripheral vascular disease, unspecified; I25.5 Ischemic cardiomyopathy; D64.9 Anemia, unspecified; M62.81 Muscle weakness (generalized); G81.90 Hemiplegia, unspecified affecting unspecified side; F17.210 Nicotine dependence, cigarettes, uncomplicated
CPT/HCPCS: 11042; 99213

== ENCOUNTER → 2023-11-16 10:46 | Outpatient (CLI) | payer MEDICARE, MEDICAID, SELFPAY ==
[2022-12-01 13:43] VITALS: BMI 21.7
== END ==
PROVIDERS: Family Provider Nurse Practitioner Family; PCP Nurse Practitioner Family; Referring Provider Nurse Practitioner Family; Visit Provider Surgery
DX: L89.153 Pressure ulcer of sacral region, stage 3 (principal); E11.628 Type 2 diabetes mellitus with other skin complications; M46.28 Osteomyelitis of vertebra, sacral and sacrococcygeal region; I25.5 Ischemic cardiomyopathy; D64.9 Anemia, unspecified; G81.90 Hemiplegia, unspecified affecting unspecified side; Z99.3 Dependence on wheelchair; Z79.2 Long term (current) use of antibiotics
CPT/HCPCS: 11042; 99213

== ENCOUNTER 2023-11-22 18:07 | Inpatient (IN) | payer MEDICARE, MEDICAID, SELFPAY ==
[2022-12-01 13:43] VITALS: BMI 21.7
[2023-11-22] VITALS (12 sets, daily range): BP systolic 110–188; BP diastolic 56–98; PULSE 87–119; RESP 16–26; TEMP 37.1; O2SAT 94–99; BMI 22.6
--- NOTE | 2023-11-22 18:08 | EKG_ITS ---
[address] [address] Test Date: 2023-11-22 Pat Name: Ray Foster Department: Room: Gender: Male Yarder: ANDERS : 1955 Requested By: Order Number: [id number] Reading MD: Anand Jackman Measurements Intervals [place] Rate: 109 P: 38 CO: 134 QRS: -2 QRSD: 90 T: -1 QT: 350 QTc: 471 Interpretive Statements Sinus tachycardia Possible Inferior infarct , age undetermined Possible Anterior infarct , age undetermined Electronically Signed On 11-24-2023 16:46:27 PDT by Anand Jackman
[2023-11-22] MEDS: ONDANSETRON 4 MG/2 ML INJ IV (18:14)
[2023-11-22 18:22] LABS: Add Manual Diff / Slide Review NO; Basophils Absolute Auto 0 /uL (0-100); Basophils Percent Auto 0.2 % (0-2); Eosinophils Absolute Auto 300 /uL (0-450); Eosinophils Percent Auto 1.6 % (2-4); Hematocrit 37.7 % (41-53); Hemoglobin 12.5 g/dL (13.5-17.5); Lymphocytes Absolute Auto 500 /uL (1100-4500); Lymphocytes Percent Auto 2.4 % (25-40); Mean Corpuscular HGB Conc 33.2 % (30-36); Mean Corpuscular Hemoglobin 28.9 PG (26-34); Mean Corpuscular Volume 87.1 fL (80-100); Monocytes Absolute Auto 1500 /uL (0-900); Monocytes Percent Auto 7.2 % (3-14); Neutrophils Absolute Auto 18900 /uL (1500-7000); Neutrophils Percent Auto 88.6 % (50-75); Platelet Count 376 X10^3/uL (150-400); Red Blood Cell Count 4.33 X10^6/uL (4.5-5.9); White Blood Cell Count 21.3 X10^3/uL (4.5-11.0)
--- NOTE | 2023-11-22 18:27 | PC.NURSE ---
Reported weakness after getting outpatient IV antibiotics. Pt vomited shortly after arrival to ER room. Pt endorses weakness. No known sick contacts?
[2023-11-22 18:49] LABS: Alanine Aminotransferase 27 IU/L (<50); Albumin 4.2 g/dL (3.5-5.0); Albumin Globulin Ratio 1.3 (1.0-2.8); Alkaline Phosphatase 190 U/L (38-126); Aspartate Aminotransferase 25 IU/L (17-59); BUN Creatinine Ratio 36.4 (6-22); Bilirubin Total 0.5 mg/dL (0.2-1.3); Blood Urea Nitrogen 28 mg/dL (9-20); Calcium 8.5 mg/dL (8.4-10.2); Carbon Dioxide 25 mmol/L (22-32); Chloride 97 mmol/L (98-107); Estimated Glomerular Filt Rate > 60 mL/min (>60); Globulin 3.3 g/dL (1.7-4.1); Glucose 352 mg/dL (80-110); HEMOLYSIS 15 (0-50); Lipase 51 U/L (23-300); Potassium 3.6 mmol/L (3.4-5.1); Sodium 132 mmol/L (137-145); Total Protein 7.5 g/dL (6.3-8.2)
[2023-11-22 19:02] LABS: Lactate (Lactic Acid) 2.2 mmol/L (0.7-2.1)
[2023-11-22 19:10] LABS: Influenza A - CEPHEID Flu A NEGATIVE (NEGATIVE); Influenza B - CEPHEID Flu B NEGATIVE (NEGATIVE); Respiratory Syncytial Virus Negative (Negative)
[2023-11-22 19:15] LABS: Ethanol (ETOH) < 10 mg/dL
[2023-11-22 19:25] LABS: COVID-19 CEPHEID 4-PLEX PCR Negative (Negative)
--- NOTE | 2023-11-22 19:42 | ED.AMS ---
HPI - Altered Mental Status General Chief Complaint: Altered Mental Status Stated Complaint: weak/ n/v Time Seen by Provider: 11/22/23 18:34 History of Present Illness HPI narrative: 68-year-old male resident at [facility] with history of sacral osteomyelitis, ongoing IV antibiotic therapy, today he had his infusion therapy and on return to [facility] was felt to be somewhat confused by staff. No injury or trauma known. He has not known to have access to any alcohol or other substances. He does receive oxycodone regular doses for chronic pain. He was referred for further evaluation of altered mental status per staff [place] concerns. Related Data Home Medications Medication Instructions Recorded Confirmed acetaminophen 325 mg tablet 1,000 mg PO TID PRN pain/fever ##0 06/29/17 12/01/22 atorvastatin 80 mg tablet 80 mg PO BEDTIME ##0 06/29/17 12/01/22 clopidogrel 75 mg tablet 75 mg PO DAILY ##0 06/29/17 12/01/22 levothyroxine 50 mcg tablet 50 mcg PO QPM ##0 06/29/17 12/01/22 omeprazole 20 mg capsule,delayed 40 mg PO DAILY ##0 06/29/17 12/01/22 release insulin aspart U-100 100 unit/mL See Rx Instructions .Route .COMPLEX 11/25/17 12/01/22 (3 mL) subcutaneous pen (Novolog FlexPen U-100 Insulin aspart) cholecalciferol (vitamin D3) 25 2,000 unit PO DAILY 08/13/18 12/01/22 mcg (1,000 unit) capsule fluticasone propionate 50 1 spray intranasal BID 08/13/18 12/01/22 mcg/actuation nasal spray,suspension hydroxyzine pamoate 25 mg capsule 25 - 50 mg PO Q6H PRN pain/spasms 08/13/18 12/01/22 mirtazapine 15 mg tablet 15 mg PO BEDTIME 08/13/18 12/01/22 ondansetron 4 mg disintegrating 4 - 8 mg PO Q4H PRN Nausea 08/13/18 12/01/22 tablet duloxetine 60 mg capsule,delayed 60 mg PO BEDTIME 03/02/19 12/01/22 release glucagon (human recombinant) 1 mg 1 mg IM PRN PRN blood glucose <60 03/02/19 12/01/22 solution for injection (Glucagon Emergency Kit) nystatin 100,000 unit/gram topical 1 applic topical BID PRN yeast 03/02/19 12/01/22 cream aluminum-mag hydroxide-simethicone 10 ml PO DAILY PRN Heartburn 07/04/21 12/01/22 200 mg-200 mg-20 mg/5 mL oral susp aspirin 81 mg tablet,delayed 81 mg PO DAILY 07/04/21 12/01/22 release lubiprostone 24 mcg capsule 24 mcg PO BID 07/04/21 12/01/22 (Amitiza) oxycodone myristate 18 mg capsule 18 mg PO BID 07/04/21 12/01/22 sprinkle extended release 12hr(DON'T CRUSH) (Xtampza ER) sertraline 50 mg tablet 50 mg PO DAILY 07/04/21 12/01/22 tamsulosin 0.4 mg capsule 0.4 mg PO BEDTIME 07/04/21 12/01/22 bisacodyl 5 mg tablet 5 - 10 mg PO DAILY PRN Constipation 12/01/22 12/01/22 docusate sodium 100 mg tablet 200 mg PO TID 12/01/22 12/01/22 furosemide 80 mg tablet 80 mg PO QAM 12/01/22 12/01/22 insulin glargine 100 unit/mL (3 17 unit SUBCUT BEDTIME 12/01/22 12/01/22 mL) subcutaneous pen (Lantus Solostar U-100 Insulin) lorazepam 1 mg tablet 1 mg PO BEDTIME PRN Insomnia 12/01/22 12/01/22 magnesium hydroxide 400 mg/5 mL 30 ml PO DAILY PRN Constipation 12/01/22 12/01/22 oral suspension (Milk of Magnesia) metoclopramide HCl 5 mg/5 mL oral 10 mg PO QAC 12/01/22 12/01/22 solution oxymetazoline 0.05 % nasal spray 2 spray intranasal Q12H PRN 12/01/22 12/01/22 nosebleed propylene glycol 1 %-glycerin 0.3 1 drp ophthalmic (eye) Q1H PRN Dry 12/01/22 12/01/22 % eye drops Eyes sennosides 8.6 mg tablet (senna) 17.2 mg PO BID 12/01/22 12/01/22 Previous Rx's Medication Instructions Recorded bisacodyl 10 mg rectal suppository 10 mg ME DAILY PRN Constipation #0 07/07/21 ea naloxone 0.4 mg/mL injection 0.4 mg IM Q15-20M PRN Opioid 07/07/21 solution Overdose #0 mL oxycodone 5 mg tablet 20 mg (4 x 5 mg) PO Q4H PRN pain 7 07/07/21 days #40 tabs polyethylene glycol 3350 17 17 g PO DAILY PRN Constipation #0 07/07/21 gram/dose oral powder grams lorazepam 1 mg tablet (Ativan) 1 mg PO TID PRN nausea and 07/09/22 vomiting #10 tabs ketorolac 10 mg tablet 10 mg PO Q6H PRN pain #14 tabs 11/28/22 cefdinir 300 mg capsule 300 mg PO BID #20 caps 01/05/23 cefdinir 300 mg capsule 300 mg PO BID #20 caps 01/05/23 cephalexin 500 mg capsule 500 mg PO TID #30 caps 06/23/23 levofloxacin 500 mg tablet 500 mg PO DAILY #7 tabs 06/25/23 metronidazole 500 mg tablet 500 mg PO TID #10 tabs 10/08/23 Allergies Allergy/AdvReac Type Severity Reaction Status Date / Time amitriptyline Allergy Verified 12/01/22 07:38 pollen extracts Allergy Verified 12/01/22 07:38 codeine [CODEINE] AdvReac Unknown nausea Verified 12/01/22 07:38 Review of Systems Review of Systems Narrative: per HPI Patient History Medical History (Updated 11/23/23 @ 07:45 by Dani Allison MD) C3 spinal cord injury C4 spinal cord injury Hypertension Hyperlipidemia Gastroesophageal reflux disease CVA (cerebral vascular accident) Diabetes Surgical History History of carotid endarterectomy History of coronary artery stent placement No pertinent past surgical history Family History Mother Cancer Father Lung disease Hyperlipidemia Brother Lupus Social History household members: other Smoking Status: Current every day smoker alcohol intake: former substance use type: does not use additional social history: He currently resides in He currently resides in [facility] [place]. Smoking Status: Current every day smoker tobacco type: cigarettes alcohol intake frequency: other Substance Use Type: does not use Exam Narrative Exam Narrative: GENERAL: Well-developed patient, in mild distress. Says that he does not feel weak or confused. HEAD: Atraumatic. Normocephalic. EYES: Pupils equal round and reactive. Extraocular motions intact. No scleral icterus. No injection or drainage. ENT: Nose without bleeding, purulent drainage. Throat without erythema, tonsillar hypertrophy or exudate. Airway patent. NECK: Trachea midline. Non tender CARDIOVASCULAR: Regular rate and rhythm without murmurs, gallops, or rubs. RESPIRATORY: Clear to auscultation. Breath sounds equal bilaterally. No wheezes, rales, or rhonchi. GASTROINTESTINAL: Abdomen soft, non-tender, nondistended. EXTREMITIES: Right AKA noted, stump site looks intact, no erythema, no discharge or swelling. Left leg atraumatic with no peripheral edema, no obvious deformities or tenderness or swelling to either upper extremity. No edema or joint tenderness. BACK: Sacral dressing removed, small shallow 4 mm diameter ulcer, 1-2 mm depth only, no expressible fluid, no surrounding edema or redness. Also some erythema to the right buttock area a few cm diameter without ulcer, photo documentation of both skin areas done by nursing. Nontender without deformity or crepitance. No flank tenderness. NEURO: AOx3. SKIN: No rash or erythema of visible areas Initial Vital Signs Initial Vital Signs: Vital Signs Temperature 98.7 F 11/22/23 17:59 Pulse Rate 119 H 11/22/23 17:59 Respiratory Rate 16 11/22/23 17:59 Blood Pressure 188/98 H 11/22/23 17:59 Pulse Oximetry 96 11/22/23 17:59 Oxygen Delivery Method Room Air 11/22/23 17:59 Course Orders Ordered: Acetaminophen (Acetaminophen 325 Mg Tablet) 1,000 mg PO TID PRN PRN Reason: pain/fever Albuterol (Albuterol 2.5 Mg/3 Ml Neb (Adult)) 2.5 mg INH [id number] PRN PRN Reason: Dyspnea Aspirin (Aspirin Ec 81 Mg Tablet) 81 mg PO DAILY [facility] Atorvastatin Calcium (Atorvastatin 20 Mg Tablet) 80 mg PO BEDTIME [facility] Calcium Carbonate (Calcium Carbonate 500 Mg Tab) 1,000 mg PO Q4HR PRN PRN Reason: Dyspepsia Clopidogrel Bisulfate (Clopidogrel 75 Mg Tablet) 75 mg PO DAILY [facility] Docusate Sodium (Docusate 100 Mg Capsule) 200 mg PO TID [facility] Duloxetine HCl (Duloxetine 30 Mg Capsule) 60 mg PO BEDTIME [facility] Hydralazine HCl (Hydralazine 20 Mg/Ml Vial) 10 mg IV Q6HR PRN PRN Reason: SBP>= 160 or DBP >=110 Sodium Chloride (Normal Saline 0.9%) 1,000 mls @ 100 mls/hr IV CONT EUGEN[facility] Last Admin: 11/23/23 01:39 Dose: 100 mls/hr Documented By: CLYDE Ceftriaxone Sodium 1,000 mg/ (Sodium Chloride) 100 mls @ 200 mls/hr IV Q24H [facility] Dextrose (D10w) 100 mls @ 999 mls/hr IV PRN PRN PRN Reason: Hypoglycemia Dextrose (D10w) 100 mls @ 999 mls/hr IV PRN PRN PRN Reason: Hypoglycemia Insulin Glargine (Insulin Glargine 100 Unit/Ml 3ml Pen) 10 unit SUBCUT BEDTIME [facility] Insulin Human Lispro (Insulin Lispro 100 Unit/Ml 3ml Vial) 0 unit SUBCUT ACHS [facility]GEN[facility]; Protocol Ketorolac Tromethamine (Ketorolac 10 Mg Tablet) 10 mg PO Q6H PRN PRN Reason: pain Levothyroxine Sodium (Levothyroxine 50 Mcg Tablet) 50 mcg PO QPM [facility] Lorazepam (Lorazepam 1 Mg Tablet) 1 mg PO BEDTIME PRN PRN Reason: Insomnia Magnesium Hydroxide (Magnesium Hydroxide 30 Ml Udc) 30 ml PO DAILY PRN PRN Reason: Constipation Melatonin (Melatonin 3 Mg Tablet) 9 mg PO BEDTIME PRN PRN Reason: insomnia Metoclopramide HCl (Metoclopramide Hcl 5 Mg Tablet) 10 mg PO AC [facility] Mirtazapine (Mirtazapine 15 Mg Tablet) 15 mg PO BEDTIME [facility] Naloxone HCl (Naloxone 0.4 Mg/Ml Vial) 0.2 mg IV Q2MIN PRN PRN Reason: Opiate Reversal (Oxycodone Myristate [Xtampza Er] 18 Mg Cap,Sprinkl,Er12hr( Dont C 18 mg PO BID [facility] Lubiprostone [ Amitiza] 24 Mcg Capsule) 24 mcg PO BID [facility] Ondansetron HCl (Ondansetron 4 Mg Odt) 4 mg PO Q4H PRN PRN Reason: Nausea And Vomiting Ondansetron HCl (Ondansetron 4 Mg/2 Ml Inj) 4 mg IV Q8HR PRN PRN Reason: Nausea And Vomiting Oxycodone HCl (Oxycodone Ir 5 Mg Tablet) 20 mg PO Q4H PRN PRN Reason: pain Pantoprazole Sodium (Pantoprazole Dr 40 Mg Tablet) 40 mg PO 0600 [facility] Last Admin: 11/23/23 06:46 Dose: 40 mg Documented By: CLYDE Polyethylene Glycol (Polyethylene Glycol 3350 17 Gm Powd.Pack) 17 gm PO DAILY PRN PRN Reason: Constipation Sennosides (Sennosides 8.6 Mg Tablet) 17.2 mg PO BID [facility] Sertraline HCl (Sertraline 50 Mg Tablet) 50 mg PO DAILY [facility] Tamsulosin HCl (Tamsulosin 0.4 Mg Capsule) 0.4 mg PO BEDTIME [facility] Vitamin D (Cholecalciferol (Vitamin D3) 1,000 Unit Tablet) 2,000 unit PO DAILY [facility] Discontinued Medications Acetaminophen (Acetaminophen 325 Mg Tablet) 650 mg PO Q6H PRN PRN Reason: Fever/Mild Pain (1-3) Ceftriaxone Sodium 1,000 mg/ (Sodium Chloride) 100 mls @ 200 mls/hr IV NOW ONE Stop: 11/22/23 21:04 Last Infusion: 11/22/23 22:31 Dose: Infused Documented By: Admin: 11/22/23 22:00 Dose: 200 mls/hr Documented By: CLYDE Sodium Chloride (Normal Saline 0.9%) 1,000 mls @ 1,000 mls/hr IV BOLUS ONE Stop: 11/22/23 22:02 Last Infusion: 11/22/23 22:00 Dose: Infused Documented By: Admin: 11/22/23 21:20 Dose: 1,000 mls/hr Documented By: CLYDE Insulin Glargine (Insulin Glargine 100 Unit/Ml 3ml Pen) 17 unit SUBCUT BEDTIME [facility] Insulin Human Lispro (Insulin Lispro 100 Unit/Ml 3ml Vial) 0 unit SUBCUT ACHS [facility]; Protocol Non-Formulary Medication (Insulin Aspart U-100 [Novolog Flexpen U-100 Insulin]) 0 unit .ROUTE .COMPLEX [facility] Non-Formulary Medication (Omeprazole) 40 mg PO DAILY [facility] Non-Formulary Medication (Propylene Glycol-Glycerin) 1 drop OPHTHALMIC (EYE) Q1H PRN PRN Reason: Dry Eyes Ondansetron HCl (Ondansetron 4 Mg/2 Ml Inj) 4 mg IV NOW PRN PRN Reason: Nausea And Vomiting Last Admin: 11/22/23 18:14 Dose: 4 mg Documented By: CHAO Ondansetron HCl (Ondansetron 4 Mg Odt) 4 mg PO NOW PRN PRN Reason: Nausea And Vomiting Vital Signs Vital signs: Vital Signs - 8 hr 11/22/23 17:59 11/22/23 19:30 11/22/23 19:31 Temperature 98.7 F Pulse Rate 119 H 99 H Respiratory Rate 16 23 Blood Pressure 188/98 H 119/56 L Pulse Oximetry 96 96 Oxygen Delivery Method Room Air Room Air 11/22/23 19:31 11/22/23 20:00 11/22/23 20:00 Temperature Pulse Rate 100 H 99 H Respiratory Rate 25 H 24 Blood Pressure 110/58 L Pulse Oximetry 97 96 Oxygen Delivery Method Room Air Room Air 11/22/23 20:30 11/22/23 20:30 Temperature Pulse Rate 101 H Respiratory Rate 24 Blood Pressure 127/58 L Pulse Oximetry 99 Oxygen Delivery Method Room Air MDM - Altered Mental Status Lab Data Attestation: I reviewed the patient's lab results. 11/22/23 18:11 11/22/23 18:11 Labs: Lab Results 11/22/23 11/22/23 11/22/23 Range/Units 18:07 18:11 19:46 WBC 21.3 H (4.5-11.0) X10^3/uL RBC 4.33 L (4.5-5.9) X10^6/uL Hgb 12.5 L (13.5-17.5) g/dL Hct 37.7 L (41-53) % MCV 87.1 (80-100) fL MCH 28.9 (26-34) PG MCHC 33.2 (30-36) % RDW 15.0 H (11.6-14.8) % Plt Count 376 (150-400) X10^3/uL Neut % (Auto) 88.6 H (50-75) % Lymph % (Auto) 2.4 L (25-40) % [place] % (Auto) 7.2 (3-14) % Eos % (Auto) 1.6 L (2-4) % Baso % (Auto) 0.2 (0-2) % Neut # (Auto) 45409 H (5652-4493) /uL Lymph # (Auto) 500 L (1701-1065) /uL [place] # (Auto) 1500 H (0-900) /uL Eos # (Auto) 300 (0-450) /uL Baso # (Auto) 0 (0-100) /uL Sodium 132 L (137-145) mmol/L Potassium 3.6 (3.4-5.1) mmol/L Chloride 97 L (98-107) mmol/L Carbon Dioxide 25 (22-32) mmol/L BUN 28 H (9-20) mg/dL Creatinine 0.77 (0.66-1.25) mg/dL Estimated GFR > 60 (>60) mL/min BUN/Creatinine Ratio 36.4 H (6-22) Glucose 352 H (80-110) mg/dL Lactate 2.2 H (0.7-2.1) mmol/L Calcium 8.5 (8.4-10.2) mg/dL Total Bilirubin 0.5 (0.2-1.3) mg/dL AST 25 (17-59) IU/L ALT 27 (<50) IU/L Alkaline Phosphatase 190 H (38-126) U/L Total Protein 7.5 (6.3-8.2) g/dL Albumin 4.2 (3.5-5.0) g/dL Globulin 3.3 (1.7-4.1) g/dL Albumin/Globulin Ratio 1.3 (1.0-2.8) Lipase 51 (23-300) U/L Urine Color Yellow Urine Appearance Clear Urine pH 6.0 (4.5-8.0) Ur Specific [place] 1.010 (1.000-1.035) Urine Protein 1+ H (Negative) Urine Glucose (UA) 2+ H (Negative) g/dL Urine Ketones Negative (NEGATIVE) Urine Occult Blood 3+ H (Negative) Urine Nitrate Positive H (Negative) Urine Bilirubin Negative (NEGATIVE) Urine Urobilinogen 0.2 (0.2) E.U./dL Ur Leukocyte Esterase 2+ H (NEGATIVE) Urine RBC 5-10/hpf H (0-5/HPF) Urine WBC 5-10/hpf H (0-5/HPF) Ur Squamous Epith Cells 0-1 /hpf (0-5/HPF) Amorphous Sediment 1+ Urine Bacteria Few (2-10) H (None) Hyaline Casts 1-5/lpf (None) Urine Mucus 1+ H (Negative) Ur Culture Indicated? Specimen cultured Vol Urine Centrifuged 10ml (spun) U Opiates 300ng/mL cut Negative (Negative) Ur Oxycodone Screen Positive H (Negative) Urine Methadone Screen Negative (Negative) Ur Barbiturates Screen Negative (Negative) U Tricyclic Antidepress Negative (Negative) Ur Phencyclidine Scrn Negative (Negative) Ur Amphetamines Screen Negative (Negative) U Methamphetamines Scrn Negative (Negative) Ur MDMA Scrn (Ecstasy) Negative (Negative) U Benzodiazepines Scrn Negative (Negative) Urine Cocaine Screen Negative (Negative) U Marijuana (THC) Screen Negative (Negative) Urine Specific [place] (Normal) Ethyl Alcohol < 10 ( - 10) mg/dL Ur Creatinine (Normal) SARS-CoV-2 (PCR) Negative (Negative) Influenza A (RT-PCR) Flu a negative (NEGATIVE) Influenza B (RT-PCR) Flu b negative (NEGATIVE) RSV (PCR) Negative (Negative) 11/22/23 11/22/23 Range/Units 19:46 21:02 WBC (4.5-11.0) X10^3/uL RBC (4.5-5.9) X10^6/uL Hgb (13.5-17.5) g/dL Hct (41-53) % MCV (80-100) fL MCH (26-34) PG MCHC (30-36) % RDW (11.6-14.8) % Plt Count (150-400) X10^3/uL Neut % (Auto) (50-75) % Lymph % (Auto) (25-40) % [place] % (Auto) (3-14) % Eos % (Auto) (2-4) % Baso % (Auto) (0-2) % Neut # (Auto) (1916-7398) /uL Lymph # (Auto) (5984-7995) /uL [place] # (Auto) (0-900) /uL Eos # (Auto) (0-450) /uL Baso # (Auto) (0-100) /uL Sodium (137-145) mmol/L Potassium (3.4-5.1) mmol/L Chloride (98-107) mmol/L Carbon Dioxide (22-32) mmol/L BUN (9-20) mg/dL Creatinine (0.66-1.25) mg/dL Estimated GFR (>60) mL/min BUN/Creatinine Ratio (6-22) Glucose (80-110) mg/dL Lactate 1.3 (0.7-2.1) mmol/L Calcium (8.4-10.2) mg/dL Total Bilirubin (0.2-1.3) mg/dL AST (17-59) IU/L ALT (<50) IU/L Alkaline Phosphatase (38-126) U/L Total Protein (6.3-8.2) g/dL Albumin (3.5-5.0) g/dL Globulin (1.7-4.1) g/dL Albumin/Globulin Ratio (1.0-2.8) Lipase (23-300) U/L Urine Color Urine Appearance Urine pH Normal (4.5-8.0) Ur Specific [place] (1.000-1.035) Urine Protein (Negative) Urine Glucose (UA) (Negative) g/dL Urine Ketones (NEGATIVE) Urine Occult Blood (Negative) Urine Nitrate (Negative) Urine Bilirubin (NEGATIVE) Urine Urobilinogen (0.2) E.U./dL Ur Leukocyte Esterase (NEGATIVE) Urine RBC (0-5/HPF) Urine WBC (0-5/HPF) Ur Squamous Epith Cells (0-5/HPF) Amorphous Sediment Urine Bacteria (None) Hyaline Casts (None) Urine Mucus (Negative) Ur Culture Indicated? Vol Urine Centrifuged U Opiates 300ng/mL cut (Negative) Ur Oxycodone Screen (Negative) Urine Methadone Screen (Negative) Ur Barbiturates Screen (Negative) U Tricyclic Antidepress (Negative) Ur Phencyclidine Scrn (Negative) Ur Amphetamines Screen (Negative) U Methamphetamines Scrn (Negative) Ur MDMA Scrn (Ecstasy) (Negative) U Benzodiazepines Scrn (Negative) Urine Cocaine Screen (Negative) U Marijuana (THC) Screen (Negative) Urine Specific [place] Normal (Normal) Ethyl Alcohol ( - 10) mg/dL Ur Creatinine Normal (Normal) SARS-CoV-2 (PCR) (Negative) Influenza A (RT-PCR) (NEGATIVE) Influenza B (RT-PCR) (NEGATIVE) RSV (PCR) (Negative) Point of Care Testing Glucose POC 317 ECG Data Attestation: I personally reviewed and interpreted this ECG as follows: Interpretation: Sinus tachycardia with rate of 109, no obvious ST segment elevation or depression changes. ME 134, QRS 90, QTC 471. MDM Narrative Medical decision making narrative: History of confusion noted at [facility] facility, after returning from IV infusion for sacral area osteomyelitis. Afebrile on triage, labs sent including urinalysis and chest x-ray. White blood cell count [id number] elevated, lactate mildly elevated, IV fluids bolus. Chest x-ray unremarkable. Urinalysis suspicious for infection. Blood culture sent, urine culture requested. IV ceftriaxone for UTI coverage. Case discussed with hospitalist Dr Ibarra, accepts patient for admission to inpatient. Critical Care Time Critical Care Time Critical Care Time: Yes Total Critical Care Time: 35 Attestation: The high probability of a clinically significant, sudden or life threatening deterioration of the [cerebrovascular, genitourinary, abdominopelvic, integument/dermatologic] system(s) required my full and direct attention, intervention and personal management. The aggregate critical care time was [35] minutes. This time is in addition to time spent performing reported procedures but includes the following: [x] Data Review and interpretation [x] Patient assessment and monitoring of vital signs [x] Documentation [x] Medication orders and management Discharge Plan Departure Patient Disposition: Admitted As Inpatient Clinical Impression: Confusion, Urinary tract infection, History of osteomyelitis, Sacral decubitus ulcer, Decubitus ulcer of buttock Admit Date/Time: 11/22/23 22:53 Admit Provider: Mazin Urban
[2023-11-22 19:58] LABS: Ur Creatinine Normal (Normal); Ur Specific Gravity Normal (Normal); Urine Amphetamines Negative (Negative); Urine Barbiturates Negative (Negative); Urine Benzodiazepines Negative (Negative); Urine Cocaine Negative (Negative); Urine MDMA Negative (Negative); Urine Methadone Negative (Negative); Urine Methamphetamines Negative (Negative); Urine Opiates Negative (Negative); Urine Oxycodone Positive (Negative); Urine Phencyclidine Negative (Negative); Urine THC Negative (Negative); Urine Tricyclic Antidepressant Negative (Negative); Urine pH Normal (Normal)
[2023-11-22 20:00] LABS: Appearance Urine UA CLEAR; Bilirubin Urine UA NEGATIVE (NEGATIVE); Color Urine UA YELLOW; Glucose Urine UA 2+ g/dL (Negative); Ketones Urine UA NEGATIVE (NEGATIVE); Leukocyte Esterase Urine UA 2+ (NEGATIVE); Nitrite Urine UA POSITIVE (Negative); Occult Blood Urine UA 3+ (Negative); Protein Urine UA 1+ (Negative); Urobilinogen Urine UA 0.2 E.U./dL (0.2)
[2023-11-22 20:05] LABS: Amorphous Sediment Urine 1+; Bacteria Urine Few (2-10); Culture Indicated Urine Specimen Cultured; Hyaline Casts Urine 1-5/LPF; Mucus Urine 1+ (Negative); RBC Urine 5-10/HPF (0-5/HPF); Squamous Epithelial Cell Urine 0-1 /HPF (0-5/HPF); Urine Volume 10mL (spun); WBC Urine 5-10/HPF (0-5/HPF)
[2023-11-22 20:28] LABS: Reflexed Lactate in 2 Hours Y
[2023-11-22] MEDS: SODIUM CHLORIDE 0.9% 1,000 ML 1000 ML IV (21:20)
[2023-11-22 21:40] LABS: Lactate 2HR (Lactic Acid Rflx) 1.3 mmol/L (0.7-2.1)
[2023-11-22] MEDS: cefTRIAXone 1,000 MG in SODIUM CHLORIDE 0.9% 100 ML 200 MG IV (22:00)
[2023-11-23] VITALS (33 sets, daily range): BP systolic 129–191; BP diastolic 57–124; PULSE 78–100; RESP 16–32; TEMP 36.7–36.8; O2SAT 92–97; BMI 22.6
[2023-11-23] MEDS: SODIUM CHLORIDE 0.9% 1,000 ML 100 ML IV ×2 (01:39→11:49)
--- NOTE | 2023-11-23 04:32 | PM.HP.1 ---
History of Present Illness History of Present Illness Chief complaint: weak/ n/v Narrative: 68 years old male with history of hypertension, hyperlipidemia, GERD, CVA, diabetes mellitus type 2, presents to the ER from [facility] for confusion. The patient has a history of sacral osteomyelitis and just started IV therapy with doxycycline from through . After the infusion the nursing staff noted the patient is kind of confused. Sent to the ER for further evaluation. Denies any other symptoms. Takes oxycodone for chronic pain. Laboratory shows WBC 21.3, glucose 352, lactic acid 1.3, lipase 51, creatinine 0.77, U tox positive for oxycodone, UA positive for UTI, negative COVID, pelvic MRI from 10/04/2023 shows full thickening ulceration involving the lower sacrum and upper coccygeal level with surrounding cellulitis. No discrete drainable abscess collection. In the ER he was given ceftriaxone 1 g IV, fluid bolus. [facility] Medical History (Updated 11/22/23 @ 22:44 by Dani Allison MD) C3 spinal cord injury C4 spinal cord injury Hypertension Hyperlipidemia Gastroesophageal reflux disease CVA (cerebral vascular accident) Diabetes Surgical History History of carotid endarterectomy History of coronary artery stent placement No pertinent past surgical history Family History Mother Cancer Father Lung disease Hyperlipidemia Brother Lupus Social History household members: other Smoking Status: Current every day smoker alcohol intake: former substance use type: does not use additional social history: He currently resides in He currently resides in [facility]. Meds Home Medications and Allergies Home Medications Medication Instructions Recorded Confirmed Type acetaminophen 325 mg tablet 1,000 mg PO TID PRN pain/fever ##0 06/29/17 12/01/22 History atorvastatin 80 mg tablet 80 mg PO BEDTIME ##0 06/29/17 12/01/22 History clopidogrel 75 mg tablet 75 mg PO DAILY ##0 06/29/17 12/01/22 History levothyroxine 50 mcg tablet 50 mcg PO QPM ##0 06/29/17 12/01/22 History omeprazole 20 mg capsule,delayed 40 mg PO DAILY ##0 06/29/17 12/01/22 History release insulin aspart U-100 100 unit/mL See Rx Instructions .Route .COMPLEX 11/25/17 12/01/22 History (3 mL) subcutaneous pen (Novolog FlexPen U-100 Insulin aspart) cholecalciferol (vitamin D3) 25 2,000 unit PO DAILY 08/13/18 12/01/22 History mcg (1,000 unit) capsule fluticasone propionate 50 1 spray intranasal BID 08/13/18 12/01/22 History mcg/actuation nasal spray,suspension hydroxyzine pamoate 25 mg capsule 25 - 50 mg PO Q6H PRN pain/spasms 08/13/18 12/01/22 History mirtazapine 15 mg tablet 15 mg PO BEDTIME 08/13/18 12/01/22 History ondansetron 4 mg disintegrating 4 - 8 mg PO Q4H PRN Nausea 08/13/18 12/01/22 History tablet duloxetine 60 mg capsule,delayed 60 mg PO BEDTIME 03/02/19 12/01/22 History release glucagon (human recombinant) 1 mg 1 mg IM PRN PRN blood glucose <60 03/02/19 12/01/22 History solution for injection (Glucagon Emergency Kit) nystatin 100,000 unit/gram topical 1 applic topical BID PRN yeast 03/02/19 12/01/22 History cream aluminum-mag hydroxide-simethicone 10 ml PO DAILY PRN Heartburn 07/04/21 12/01/22 History 200 mg-200 mg-20 mg/5 mL oral susp aspirin 81 mg tablet,delayed 81 mg PO DAILY 07/04/21 12/01/22 History release lubiprostone 24 mcg capsule 24 mcg PO BID 07/04/21 12/01/22 History (Amitiza) oxycodone myristate 18 mg capsule 18 mg PO BID 07/04/21 12/01/22 History sprinkle extended release 12hr(DON'T CRUSH) (Xtampza ER) sertraline 50 mg tablet 50 mg PO DAILY 07/04/21 12/01/22 History tamsulosin 0.4 mg capsule 0.4 mg PO BEDTIME 07/04/21 12/01/22 History bisacodyl 10 mg rectal suppository 10 mg ND DAILY PRN Constipation #0 07/07/21 12/01/22 Rx ea naloxone 0.4 mg/mL injection 0.4 mg IM Q15-20M PRN Opioid 07/07/21 12/01/22 Rx solution Overdose #0 mL oxycodone 5 mg tablet 20 mg (4 x 5 mg) PO Q4H PRN pain 7 07/07/21 12/01/22 Rx days #40 tabs polyethylene glycol 3350 17 17 g PO DAILY PRN Constipation #0 07/07/21 12/01/22 Rx gram/dose oral powder grams lorazepam 1 mg tablet (Ativan) 1 mg PO TID PRN nausea and 07/09/22 12/01/22 Rx vomiting #10 tabs ketorolac 10 mg tablet 10 mg PO Q6H PRN pain #14 tabs 11/28/22 12/01/22 Rx bisacodyl 5 mg tablet 5 - 10 mg PO DAILY PRN Constipation 12/01/22 12/01/22 History docusate sodium 100 mg tablet 200 mg PO TID 12/01/22 12/01/22 History furosemide 80 mg tablet 80 mg PO QAM 12/01/22 12/01/22 History insulin glargine 100 unit/mL (3 17 unit SUBCUT BEDTIME 12/01/22 12/01/22 History mL) subcutaneous pen (Lantus Solostar U-100 Insulin) lorazepam 1 mg tablet 1 mg PO BEDTIME PRN Insomnia 12/01/22 12/01/22 History magnesium hydroxide 400 mg/5 mL 30 ml PO DAILY PRN Constipation 12/01/22 12/01/22 History oral suspension (Milk of Magnesia) metoclopramide HCl 5 mg/5 mL oral 10 mg PO QAC 12/01/22 12/01/22 History solution oxymetazoline 0.05 % nasal spray 2 spray intranasal Q12H PRN 12/01/22 12/01/22 History nosebleed propylene glycol 1 %-glycerin 0.3 1 drp ophthalmic (eye) Q1H PRN Dry 12/01/22 12/01/22 History % eye drops Eyes sennosides 8.6 mg tablet (senna) 17.2 mg PO BID 12/01/22 12/01/22 History cefdinir 300 mg capsule 300 mg PO BID #20 caps 01/05/23 Rx cefdinir 300 mg capsule 300 mg PO BID #20 caps 01/05/23 Rx cephalexin 500 mg capsule 500 mg PO TID #30 caps 06/23/23 Rx levofloxacin 500 mg tablet 500 mg PO DAILY #7 tabs 06/25/23 Rx metronidazole 500 mg tablet 500 mg PO TID #10 tabs 10/08/23 Rx Allergies Allergy/AdvReac Type Severity Reaction Status Date / Time amitriptyline Allergy Verified 12/01/22 07:38 pollen extracts Allergy Verified 12/01/22 07:38 codeine [CODEINE] AdvReac Unknown nausea Verified 12/01/22 07:38 Review of Systems Review of Systems ROS: Yes All systems reviewed with the patient and are negative except as otherwise documented Constitutional Constitutional: Reports as per HPI and Reports system reviewed and no additional complaints, except as documented Eyes Eyes: Reports as per HPI and Reports system reviewed and no additional complaints, except as documented ENT Ears, Nose, Mouth, and Throat: Yes as per HPI and Yes system reviewed and no additional complaints, except as documented Cardiovascular Cardiovascular: Reports system reviewed and no additional complaints, except as documented Respiratory Respiratory: Reports system reviewed and no additional complaints, except as documented Gastrointestinal Gastrointestinal: Reports system reviewed and no additional complaints, except as documented Genitourinary Genitourinary: Reports system reviewed and no additional complaints, except as documented Musculoskeletal Musculoskeletal: Reports system reviewed and no additional complaints, except as documented, Reports abnormal gait and Reports numbness Neurologic Neurologic: Reports system reviewed and no additional complaints, except as documented, Reports abnormal gait, Reports confusion and Reports numbness Psychiatric Psychiatric: Reports system reviewed and no additional complaints, except as documented and Reports confusion Exam Vital Signs (past 8 hours): - 11/22/23 21:00 11/22/23 21:00 11/22/23 21:30 Pulse Rate 96 H 90 Respiratory Rate 24 22 Blood Pressure 121/58 L Pulse Oximetry 96 95 Oxygen Delivery Method Room Air Room Air 11/22/23 21:31 11/22/23 21:31 11/22/23 22:00 Pulse Rate 87 Respiratory Rate 23 Blood Pressure 139/62 147/64 H Pulse Oximetry 96 Oxygen Delivery Method Room Air 11/22/23 22:00 11/22/23 22:30 11/22/23 22:30 Pulse Rate 91 H 92 H Respiratory Rate 20 22 Blood Pressure 128/58 L Pulse Oximetry 94 Oxygen Delivery Method Room Air 11/22/23 23:00 11/22/23 23:00 Pulse Rate 91 H Respiratory Rate 23 Blood Pressure 129/62 Pulse Oximetry 94 Oxygen Delivery Method Room Air Oxygen Delivery Method Room Air Const General: cooperative, comfortable and well developed Orientation: alert and oriented x3 [facility] Head: normal to inspection, normocephalic and atraumatic Face and sinus: normal facial exam Mouth: oral mucosae normal and moist mucous membranes Throat: posterior oropharynx normal Eyes General: appearance normal, both eyes and all related structures Pupils: PERRL EOM: EOM intact bilaterally Neck Neck: normal visual inspection and full ROM Chest Chest: normal inspection of the chest Resp Effort & Inspection: normal respiratory effort and able to speak in complete sentences Auscultation: clear to auscultation bilaterally Cardio Palpation: normal PMI Rate: regular rate Rhythm: regular rhythm Heart Sounds: S1 normal and S2 normal GI Inspection: normal to inspection Palpation: soft and no hepatosplenomegaly Auscultation: normal bowel sounds Skin General: no rashes or lesions noted Lesions: no lesions Rashes: no rashes Trauma: no lacerations or abrasions Neuro General: patient alert, patient awake, patient oriented x3 and no focal motor deficits Cranial Nerves: CN's II-XI intact bilaterally Cognition: normal cognition Speech: speech normal Gait: normal gait Motor: muscle tone normal throughout Sensory Exam: no sensory deficits noted Extrem General: full ROM and no calf tenderness Psych Appearance: grossly normal Mental Status: mental status grossly normal Speech and Movement: speech and movement normal Objective Labs 11/22/23 18:11 11/22/23 18:11 Labs: Laboratory Results - last 24 hr 11/22/23 11/22/23 11/22/23 18:07 18:11 19:46 WBC 21.3 H RBC 4.33 L Hgb 12.5 L Hct 37.7 L MCV 87.1 MCH 28.9 MCHC 33.2 RDW 15.0 H Plt Count 376 Neut % (Auto) 88.6 H Lymph % (Auto) 2.4 L [place] % (Auto) 7.2 Eos % (Auto) 1.6 L Baso % (Auto) 0.2 Neut # (Auto) 29644 H Lymph # (Auto) 500 L [place] # (Auto) 1500 H Eos # (Auto) 300 Baso # (Auto) 0 Sodium 132 L Potassium 3.6 Chloride 97 L Carbon Dioxide 25 BUN 28 H Creatinine 0.77 Estimated GFR > 60 BUN/Creatinine Ratio 36.4 H Glucose 352 H Lactate 2.2 H Calcium 8.5 Total Bilirubin 0.5 AST 25 ALT 27 Alkaline Phosphatase 190 H Total Protein 7.5 Albumin 4.2 Globulin 3.3 Albumin/Globulin Ratio 1.3 Lipase 51 Urine Color Yellow Urine Appearance Clear Urine pH 6.0 Ur Specific [place] 1.010 Urine Protein 1+ H Urine Glucose (UA) 2+ H Urine Ketones Negative Urine Occult Blood 3+ H Urine Nitrate Positive H Urine Bilirubin Negative Urine Urobilinogen 0.2 Ur Leukocyte Esterase 2+ H Urine RBC 5-10/hpf H Urine WBC 5-10/hpf H Ur Squamous Epith Cells 0-1 /hpf Amorphous Sediment 1+ Urine Bacteria Few (2-10) H Hyaline Casts 1-5/lpf Urine Mucus 1+ H Ur Culture Indicated? Specimen cultured Vol Urine Centrifuged 10ml (spun) U Opiates 300ng/mL cut Negative Ur Oxycodone Screen Positive H Urine Methadone Screen Negative Ur Barbiturates Screen Negative U Tricyclic Antidepress Negative Ur Phencyclidine Scrn Negative Ur Amphetamines Screen Negative U Methamphetamines Scrn Negative Ur MDMA Scrn (Ecstasy) Negative U Benzodiazepines Scrn Negative Urine Cocaine Screen Negative U Marijuana (THC) Screen Negative Urine Specific [place] Ethyl Alcohol < 10 Ur Creatinine SARS-CoV-2 (PCR) Negative Influenza A (RT-PCR) Flu a negative Influenza B (RT-PCR) Flu b negative RSV (PCR) Negative 11/22/23 11/22/23 19:46 21:02 WBC RBC Hgb Hct MCV MCH MCHC RDW Plt Count Neut % (Auto) Lymph % (Auto) [place] % (Auto) Eos % (Auto) Baso % (Auto) Neut # (Auto) Lymph # (Auto) [place] # (Auto) Eos # (Auto) Baso # (Auto) Sodium Potassium Chloride Carbon Dioxide BUN Creatinine Estimated GFR BUN/Creatinine Ratio Glucose Lactate 1.3 Calcium Total Bilirubin AST ALT Alkaline Phosphatase Total Protein Albumin Globulin Albumin/Globulin Ratio Lipase Urine Color Urine Appearance Urine pH Normal Ur Specific [place] Urine Protein Urine Glucose (UA) Urine Ketones Urine Occult Blood Urine Nitrate Urine Bilirubin Urine Urobilinogen Ur Leukocyte Esterase Urine RBC Urine WBC Ur Squamous Epith Cells Amorphous Sediment Urine Bacteria Hyaline Casts Urine Mucus Ur Culture Indicated? Vol Urine Centrifuged U Opiates 300ng/mL cut Ur Oxycodone Screen Urine Methadone Screen Ur Barbiturates Screen U Tricyclic Antidepress Ur Phencyclidine Scrn Ur Amphetamines Screen U Methamphetamines Scrn Ur MDMA Scrn (Ecstasy) U Benzodiazepines Scrn Urine Cocaine Screen U Marijuana (THC) Screen Urine Specific [place] Normal Ethyl Alcohol Ur Creatinine Normal SARS-CoV-2 (PCR) Influenza A (RT-PCR) Influenza B (RT-PCR) RSV (PCR) Assessment & Plan Assessment & Plan narrative: Altered mental status with confusion most likely due to UTI. -Blood culture, urine culture, -Antibiotics, ceftriaxone, -Monitor for urine retention, check post void residuals. CAD. Restart aspirin, Plavix, statins Hypothyroidism. Restart levothyroxine CHF. Restart Lasix Hyperlipidemia. Restart atorvastatin. Diabetes mellitus type 2. Restart home insulin, ADA diet, monitor blood sugar ACHS, SSI Chronic pain. Restart hydroxyzine and oxycodone GERD. Restart omeprazole Constipation. Restart MiraLAX and senna. BPH. Restart tamsulosin Depression. Restart sertraline Time-Based Coding :: [TOTAL MINUTES] spent with patient and on the chart (including review of chart, obtaining history, exam, reviewing outside data, placing orders, documenting exam and treatment plan, and counseling patient) on [DATE]. Quality VTE Deep Vein Thrombosis/Pulmonary Embolism Present on Admission: No MIPS - Admit I confirm the patient?s Advance Care Plan is present, Code status is documented, Surrogate decision maker is in patient?s record [If Yes, STOP here]: Yes MIPS - Meds 'Current medications' to include all prescriptions, [id number] products, herbals, cannabis/cannabidiol products, and vitamin/mineral/dietary (nutritional) supplements. I have utilized all available resources to obtain, update, or review the patient?s current medications. [If Yes, STOP here]: Yes
[2023-11-23] MEDS: PANTOPRAZOLE DR 40 MG TABLET PO (06:46)
--- NOTE | 2023-11-23 07:22 | PM.PN.1 ---
Subjective Subjective Interval history: From night doctor: 68 years old male with history of hypertension, hyperlipidemia, GERD, CVA, diabetes mellitus type 2, presents to the ER from [facility] for confusion. The patient has a history of sacral osteomyelitis and just started IV therapy with doxycycline from through . After the infusion the nursing staff noted the patient is kind of confused. Sent to the ER for further evaluation. Denies any other symptoms. Takes oxycodone for chronic pain. Laboratory shows WBC 21.3, glucose 352, lactic acid 1.3, lipase 51, creatinine 0.77, U tox positive for oxycodone, UA positive for UTI, negative COVID, pelvic MRI from 10/04/2023 shows full thickening ulceration involving the lower sacrum and upper coccygeal level with surrounding cellulitis. No discrete drainable abscess collection. In the ER he was given ceftriaxone 1 g IV, fluid bolus. S: He is feeling better, he does have chronic left shoulder pain which is mild in ongoing for 2 months. He was a chronic sacral ulcer. He denies urinary symptoms. He feels less confused now. He denies any abdominal pain. Exam Vital Signs (past 8 hours): - 11/22/23 23:30 11/22/23 23:30 11/23/23 00:00 Pulse Rate 92 H Respiratory Rate 26 H Blood Pressure 145/67 H 142/65 H Pulse Oximetry 95 Oxygen Delivery Method Room Air 11/23/23 00:00 11/23/23 00:30 11/23/23 00:30 Pulse Rate 90 95 H Respiratory Rate 21 20 Blood Pressure 157/72 H Pulse Oximetry 96 97 Oxygen Delivery Method Room Air Room Air 11/23/23 01:00 11/23/23 01:00 11/23/23 01:30 Pulse Rate 91 H Respiratory Rate 32 H Blood Pressure 129/61 155/67 H Pulse Oximetry 93 Oxygen Delivery Method Room Air 11/23/23 01:30 11/23/23 02:00 11/23/23 02:00 Pulse Rate 90 92 H Respiratory Rate 24 22 Blood Pressure 178/76 H Pulse Oximetry 94 97 Oxygen Delivery Method 11/23/23 02:30 11/23/23 02:30 11/23/23 03:00 Pulse Rate 91 H 91 H Respiratory Rate 20 22 Blood Pressure 169/72 H Pulse Oximetry 96 97 Oxygen Delivery Method Room Air 11/23/23 03:00 11/23/23 03:30 11/23/23 03:30 Pulse Rate 91 H Respiratory Rate 21 Blood Pressure 182/119 H 161/71 H Pulse Oximetry 93 Oxygen Delivery Method Room Air 11/23/23 04:00 11/23/23 04:00 11/23/23 04:30 Pulse Rate 91 H 85 Respiratory Rate 21 19 Blood Pressure 180/79 H Pulse Oximetry 93 93 Oxygen Delivery Method Room Air 11/23/23 04:30 11/23/23 05:00 11/23/23 05:00 Pulse Rate 87 Respiratory Rate 16 Blood Pressure 182/76 H 191/124 H Pulse Oximetry 94 Oxygen Delivery Method 11/23/23 05:30 11/23/23 05:31 11/23/23 05:31 Pulse Rate 86 85 Respiratory Rate 22 22 Blood Pressure 146/66 H Pulse Oximetry 93 94 Oxygen Delivery Method 11/23/23 06:00 11/23/23 06:00 Pulse Rate 88 Respiratory Rate 19 Blood Pressure 183/86 H Pulse Oximetry 96 Oxygen Delivery Method Room Air Oxygen Delivery Method Room Air Narrative Exam Narrative: NAD, alert and oriented. Fluent speech. Chronically ill. Lungs are clear, normal rate and effort. Heart is regular, no murmur gallop or rub. Abdomen is soft, non distended. Extremities are free of edema. Right AKA. Objective Imaging CT scan - abdomen: Radiologist's impression: 1. There are extensive changes of pain colitis, most impressive distally. Consider C difficile colitis or other infectious etiology. 2. Severe coronary artery calcifications. 3. Extensive peripheral vascular disease with probable hemodynamically significant common iliac artery stenotic disease bilaterally. 4. Right ureteral stent in place. Mild prominence of the right collecting system. 5. Distended gallbladder and mild dilatation of the biliary tree without obstructing lesion noted. 6. Mild bibasilar atelectasis. Comment: If clinically suspect biliary obstruction, consider MRCP on a nonemergent basis to identify whether common duct stone is present. Recent pelvis MRI:: Radiologist's impression: 1. Full-thickness ulceration involving lower sacrum/upper coccygeal level just to the right of midline with surrounding cellulitis. No discrete drainable abscess collection. No gross pelvic muscle signal abnormalities. 2. Edema and subtle erosive changes involving right posterior periphery of upper coccyx and show questionable enhancement concerning for osteomyelitis in this area. No other area of abnormal marrow signal or enhancement is seen. 3. No gross pelvic lymphadenopathy by size criteria. No pelvic free fluid. Labs 11/22/23 18:11 11/23/23 08:27 Labs: Laboratory Results - last 24 hr 11/22/23 11/22/23 11/22/23 18:07 18:11 19:46 WBC 21.3 H RBC 4.33 L Hgb 12.5 L Hct 37.7 L MCV 87.1 MCH 28.9 MCHC 33.2 RDW 15.0 H Plt Count 376 Neut % (Auto) 88.6 H Lymph % (Auto) 2.4 L [place] % (Auto) 7.2 Eos % (Auto) 1.6 L Baso % (Auto) 0.2 Neut # (Auto) 72184 H Lymph # (Auto) 500 L [place] # (Auto) 1500 H Eos # (Auto) 300 Baso # (Auto) 0 Sodium 132 L Potassium 3.6 Chloride 97 L Carbon Dioxide 25 BUN 28 H Creatinine 0.77 Estimated GFR > 60 BUN/Creatinine Ratio 36.4 H Glucose 352 H Lactate 2.2 H Calcium 8.5 Total Bilirubin 0.5 AST 25 ALT 27 Alkaline Phosphatase 190 H Total Protein 7.5 Albumin 4.2 Globulin 3.3 Albumin/Globulin Ratio 1.3 Lipase 51 Urine Color Yellow Urine Appearance Clear Urine pH 6.0 Ur Specific [place] 1.010 Urine Protein 1+ H Urine Glucose (UA) 2+ H Urine Ketones Negative Urine Occult Blood 3+ H Urine Nitrate Positive H Urine Bilirubin Negative Urine Urobilinogen 0.2 Ur Leukocyte Esterase 2+ H Urine RBC 5-10/hpf H Urine WBC 5-10/hpf H Ur Squamous Epith Cells 0-1 /hpf Amorphous Sediment 1+ Urine Bacteria Few (2-10) H Hyaline Casts 1-5/lpf Urine Mucus 1+ H Ur Culture Indicated? Specimen cultured Vol Urine Centrifuged 10ml (spun) U Opiates 300ng/mL cut Negative Ur Oxycodone Screen Positive H Urine Methadone Screen Negative Ur Barbiturates Screen Negative U Tricyclic Antidepress Negative Ur Phencyclidine Scrn Negative Ur Amphetamines Screen Negative U Methamphetamines Scrn Negative Ur MDMA Scrn (Ecstasy) Negative U Benzodiazepines Scrn Negative Urine Cocaine Screen Negative U Marijuana (THC) Screen Negative Urine Specific [place] Ethyl Alcohol < 10 Ur Creatinine SARS-CoV-2 (PCR) Negative Influenza A (RT-PCR) Flu a negative Influenza B (RT-PCR) Flu b negative RSV (PCR) Negative 11/22/23 11/22/23 19:46 21:02 WBC RBC Hgb Hct MCV MCH MCHC RDW Plt Count Neut % (Auto) Lymph % (Auto) [place] % (Auto) Eos % (Auto) Baso % (Auto) Neut # (Auto) Lymph # (Auto) [place] # (Auto) Eos # (Auto) Baso # (Auto) Sodium Potassium Chloride Carbon Dioxide BUN Creatinine Estimated GFR BUN/Creatinine Ratio Glucose Lactate 1.3 Calcium Total Bilirubin AST ALT Alkaline Phosphatase Total Protein Albumin Globulin Albumin/Globulin Ratio Lipase Urine Color Urine Appearance Urine pH Normal Ur Specific [place] Urine Protein Urine Glucose (UA) Urine Ketones Urine Occult Blood Urine Nitrate Urine Bilirubin Urine Urobilinogen Ur Leukocyte Esterase Urine RBC Urine WBC Ur Squamous Epith Cells Amorphous Sediment Urine Bacteria Hyaline Casts Urine Mucus Ur Culture Indicated? Vol Urine Centrifuged U Opiates 300ng/mL cut Ur Oxycodone Screen Urine Methadone Screen Ur Barbiturates Screen U Tricyclic Antidepress Ur Phencyclidine Scrn Ur Amphetamines Screen U Methamphetamines Scrn Ur MDMA Scrn (Ecstasy) U Benzodiazepines Scrn Urine Cocaine Screen U Marijuana (THC) Screen Urine Specific [place] Normal Ethyl Alcohol Ur Creatinine Normal SARS-CoV-2 (PCR) Influenza A (RT-PCR) Influenza B (RT-PCR) RSV (PCR) [facility] Medical History C3 spinal cord injury C4 spinal cord injury Hypertension Hyperlipidemia Gastroesophageal reflux disease CVA (cerebral vascular accident) Diabetes Surgical History History of carotid endarterectomy History of coronary artery stent placement No pertinent past surgical history Family History Mother Cancer Father Lung disease Hyperlipidemia Brother Lupus Social History household members: caregiver and other Smoking Status: Current every day smoker alcohol intake: former substance use type: does not use additional social history: He currently resides in He currently resides in [facility]. Assessment & Plan Assessment & Plan narrative: 1. Septic encephalopathy due to UTI, present on admission and active. -Blood culture, urine culture, -Antibiotics, ceftriaxone, -Monitor for urine retention, check post void residuals. 2. CAD, present on admission and active. -Restart aspirin, Plavix, statins 3. Hypothyroidism, present on admission and active. -Restart levothyroxine 4. CHF, present on admission and active. - Restart Lasix 5. Hyperlipidemia, present on admission and active. -Restart atorvastatin. 6. Diabetes mellitus type 2, present on admission and active. -Restart home insulin, ADA diet, monitor blood sugar ACHS, SSI 7. Chronic pain, present on admission and active. -Restart hydroxyzine and oxycodone. 8. GERD, present on admission and active. -Restart omeprazole. 9. Constipation, present on admission and active. -Restart MiraLAX and senna. 10. BPH, present on admission and active. -Restart tamsulosin 11. Depression, present on admission and active. -Restart sertraline PLAN: -continue antibiotics -follow up blood cultures and urine culture. -wound cultures will be obtained as well. -hold long-acting oxycodone and continue with the short-acting. He is full code DEMI we will be 11/24 with returned back to [facility]. Time-Based Coding :: 30 min spent with patient and on the chart (including review of chart, obtaining history, exam, reviewing outside data, placing orders, documenting exam and treatment plan, and counseling patient) on 11/22. Quality VTE Deep Vein Thrombosis/Pulmonary Embolism Present on Admission: No
--- NOTE | 2023-11-23 07:42 | PC.NURSE ---
This RN's first interaction with patient. Assumed care at 0715. BG [id number], physician aware.
[2023-11-23] MEDS: INSULIN LISPRO 100 UNIT/ML 3ML VIAL SUBCUT ×4 (07:58→20:36)
[2023-11-23] MEDS: METOCLOPRAMIDE HCL 5 MG TABLET 10 MG PO ×3 (08:13→17:10)
--- NOTE | 2023-11-23 08:56 | PC.NURSE ---
This RN performed full bed change, fresh gown, repositioned and family/pt updated.
[2023-11-23 09:11] LABS: Alanine Aminotransferase 21 IU/L (<50); Albumin 3.6 g/dL (3.5-5.0); Albumin Globulin Ratio 1.2 (1.0-2.8); Alkaline Phosphatase 147 U/L (38-126); Aspartate Aminotransferase 24 IU/L (17-59); BUN Creatinine Ratio 31.8 (6-22); Bilirubin Total 0.5 mg/dL (0.2-1.3); Blood Urea Nitrogen 21 mg/dL (9-20); Calcium 7.9 mg/dL (8.4-10.2); Carbon Dioxide 23 mmol/L (22-32); Chloride 102 mmol/L (98-107); Estimated Glomerular Filt Rate > 60 mL/min (>60); Globulin 2.9 g/dL (1.7-4.1); Glucose 277 mg/dL (80-110); HEMOLYSIS < 15 (0-50); Magnesium 1.9 mg/dL (1.6-2.3); Potassium 3.9 mmol/L (3.4-5.1); Sodium 134 mmol/L (137-145); Total Protein 6.5 g/dL (6.3-8.2)
[2023-11-23] MEDS: CHOLECALCIFEROL (VITAMIN D3) 1,000 UNIT TABLET 2000 UNIT PO (10:00)
[2023-11-23] MEDS: DOCUSATE 100 MG CAPSULE 200 MG PO (10:00)
[2023-11-23] MEDS: SERTRALINE 50 MG TABLET PO (10:00)
[2023-11-23] MEDS: SENNOSIDES 8.6 MG TABLET 17.2 MG PO (10:39)
[2023-11-23] MEDS: CLOPIDOGREL 75 MG TABLET PO (10:39)
[2023-11-23] MEDS: ASPIRIN EC 81 MG TABLET PO (10:39)
--- NOTE | 2023-11-23 12:44 | PC.NURSE ---
INTER COM SERVICER NOTE: changed brief repositioned pt; pt stated he feels comfortable; warm blanket provided
[2023-11-23] MEDS: INSULIN GLARGINE 100 UNIT/ML 3ML PEN 10 UNIT SUBCUT (20:37)
[2023-11-23] MEDS: ATORVASTATIN 20 MG TABLET 80 MG PO (20:37)
[2023-11-23] MEDS: HYDRALAZINE 20 MG/ML VIAL 10 MG IV (20:37)
[2023-11-23] MEDS: LEVOTHYROXINE 50 MCG TABLET PO (20:37)
[2023-11-23] MEDS: DULOXETINE 30 MG CAPSULE 60 MG PO (20:38)
[2023-11-23] MEDS: TAMSULOSIN 0.4 MG CAPSULE PO (20:38)
[2023-11-23] MEDS: MIRTAZAPINE 15 MG TABLET PO (20:38)
[2023-11-23] MEDS: OXYCODONE IR 5 MG TABLET 20 MG PO (20:53)
[2023-11-23] MEDS: cefTRIAXone 1,000 MG in SODIUM CHLORIDE 0.9% 100 ML 200 MG IV (22:14)
[2023-11-23] MEDS: KETOROLAC 10 MG TABLET PO (23:32)
[2023-11-23] MEDS: LORazepam 1 MG TABLET PO (23:32)
[2023-11-24 02:00] VITALS: BP 157/67; PULSE 95; RESP 17; TEMP 37.1; O2SAT 98
[2023-11-24] MEDS: OXYCODONE IR 5 MG TABLET 20 MG PO ×5 (03:50→22:18)
[2023-11-24 08:00] VITALS: BP 171/76; PULSE 85; RESP 24; TEMP 36.4; O2SAT 93
--- NOTE | 2023-11-24 08:37 | P.PN_ITS ---
Subjective Subjective Interval history: The patient feels a bit better today. He has been on antibiotics for 24 hours. He was getting some outpatient antibiotics once a week, the exact medications are still being investigated. His urine is growing Gram-negative organisms with finals pending. Exam Vital Signs (past 8 hours): - 11/24/23 02:00 Temperature 98.8 F Pulse Rate 95 H Respiratory Rate 17 Blood Pressure 157/67 H Pulse Oximetry 98 Oxygen Flow Rate 0 Oxygen Delivery Method Room Air Oxygen Flow Rate 0 Narrative Exam Narrative: NAD, alert and oriented. Fluent speech. Lungs are clear, normal rate and effort. Heart is regular, no murmur gallop or rub. Abdomen is soft, non distended. Extremities: right AKA. Objective Labs 11/22/23 18:11 11/24/23 08:55 Labs: Laboratory Results - last 24 hr 11/23/23 08:27 Sodium 134 L Potassium 3.9 Chloride 102 Carbon Dioxide 23 BUN 21 H Creatinine 0.66 Estimated GFR > 60 BUN/Creatinine Ratio 31.8 H Glucose 277 H Calcium 7.9 L Magnesium 1.9 Total Bilirubin 0.5 AST 24 ALT 21 Alkaline Phosphatase 147 H Total Protein 6.5 Albumin 3.6 Globulin 2.9 Albumin/Globulin Ratio 1.2 PFSH Medical History C3 spinal cord injury C4 spinal cord injury Hypertension Hyperlipidemia Gastroesophageal reflux disease CVA (cerebral vascular accident) Diabetes Surgical History History of carotid endarterectomy History of coronary artery stent placement No pertinent past surgical history Family History Mother Cancer Father Lung disease Hyperlipidemia Brother Lupus Social History household members: none Smoking Status: Current every day smoker alcohol intake: former substance use type: does not use additional social history: He currently resides in He currently resides in [facility]. Assessment & Plan Assessment & Plan narrative: 1. Septic encephalopathy due to UTI, present on admission and improved. -Blood culture, urine culture, -Antibiotics, ceftriaxone, 2. CAD, present on admission and stable. -Restart aspirin, Plavix, statins 3. Hypothyroidism, present on admission and stable. -Restart levothyroxine 4. CHF, present on admission and stable. - Restart Lasix 5. Hyperlipidemia, present on admission and stable. -Restart atorvastatin. 6. Diabetes mellitus type 2, present on admission and active. -Restart home insulin, ADA diet, monitor blood sugar ACHS, SSI 7. Chronic pain, present on admission and active. -Restart hydroxyzine and oxycodone. 8. GERD, present on admission and active. -Restart omeprazole. 9. Constipation, present on admission and active. -Restart MiraLAX and senna. 10. BPH, present on admission and active. -Restart tamsulosin 11. Depression, present on admission and active. -Restart sertraline 12. Chronic sacral ulcer, present on admission and active. PLAN: -continue antibiotics (ceftriaxone). -follow up blood cultures and urine culture. -wound cultures will be obtained as well. -hold long-acting oxycodone and continue with the short-acting. -Wound consult. He is full code DEMI we will be 11/24 with returned back to [facility] living [facility] for IV antibiotics. Time-Based Coding :: 25 min spent with patient and on the chart (including review of chart, obtaining history, exam, reviewing outside data, placing orders, documenting exam and treatment plan, and counseling patient) on 11/23. Quality VTE Deep Vein Thrombosis/Pulmonary Embolism Present on Admission: No
[2023-11-24] MEDS: METOCLOPRAMIDE HCL 5 MG TABLET 10 MG PO ×3 (08:40→17:29)
[2023-11-24] MEDS: ASPIRIN EC 81 MG TABLET PO (08:43)
[2023-11-24] MEDS: DOCUSATE 100 MG CAPSULE 200 MG PO ×3 (08:44→21:42)
[2023-11-24] MEDS: SENNOSIDES 8.6 MG TABLET 17.2 MG PO ×2 (08:44→21:42)
[2023-11-24] MEDS: CLOPIDOGREL 75 MG TABLET PO (08:44)
[2023-11-24] MEDS: PANTOPRAZOLE DR 40 MG TABLET PO (08:47)
[2023-11-24] MEDS: CHOLECALCIFEROL (VITAMIN D3) 1,000 UNIT TABLET 2000 UNIT PO (08:47)
[2023-11-24] MEDS: SERTRALINE 50 MG TABLET PO (08:48)
[2023-11-24] MEDS: INSULIN LISPRO 100 UNIT/ML 3ML VIAL SUBCUT ×3 (08:49→21:29)
[2023-11-24 09:33] LABS: Alanine Aminotransferase 23 IU/L (<50); Albumin 3.7 g/dL (3.5-5.0); Albumin Globulin Ratio 1.3 (1.0-2.8); Alkaline Phosphatase 137 U/L (38-126); BUN Creatinine Ratio 26.8 (6-22); Bilirubin Total 0.5 mg/dL (0.2-1.3); Blood Urea Nitrogen 15 mg/dL (9-20); Carbon Dioxide 23 mmol/L (22-32); Estimated Glomerular Filt Rate > 60 mL/min (>60); Globulin 2.9 g/dL (1.7-4.1); Glucose 243 mg/dL (80-110); HEMOLYSIS < 15 (0-50); Magnesium 1.9 mg/dL (1.6-2.3); Potassium 3.9 mmol/L (3.4-5.1); Sodium 134 mmol/L (137-145); Total Protein 6.6 g/dL (6.3-8.2)
[2023-11-24 09:34] LABS: Aspartate Aminotransferase 31 IU/L (17-59); Calcium 8.2 mg/dL (8.4-10.2); Chloride 102 mmol/L (98-107)
[2023-11-24] MEDS: hydrOXYzine HCL 25 MG TABLET 50 MG PO ×2 (11:33→23:26)
[2023-11-24] MEDS: FUROSEMIDE 40 MG TABLET 80 MG PO (11:33)
--- NOTE | 2023-11-24 13:13 | CM.DANOTE ---
Addendum entered by ALEC Woods 11/24/23 13:56: ADD: Per [facility] admissions, they can accept pt if SNF needed at d/c. They have not yet initiated insurance auth as waiting to confirm SNF needed pending cultures. BF Original Note: Patient is a 68yo male here under inpatient status and the care of the hospitalist team. PMH of cervical spinal injury, prior CVA, GERD, HTN, HLD, chronic denson, insulin dependent diabetes with chronic sacral wound and hx of osteomyelitis who presents as a return to the ER with weakness and acute confusion per his assisted living facility (H&P). PCP Eli Kim [facility] and Medicaid SURVEY WORKER reviewed EMR. Per provider in rounds, patient likely to be here a couple of days, maybe two to three. Pending to see if patient returns to baseline or may need additional support/intervention based on cultures and labs for IV vs PO abx at d/c. Pt now with likely UTI and chronic sacral wound. Pt established with [facility] at baseline. Pt lives at [facility] and uses a powerchair, and gave CM team verbal permission to speak with brother, Cornel ([phone]) who is his DPOA. [facility] assists with nearly all functions of daily living, including assisting him getting in and out of bed, meals, bathing, etc. SW faxed clinicals to [facility] to review and updated [facility] RN who confirms that pt just started going [facility] for once a week IV-Abx dose through orders from Dr. Gómez at [facility]. First dose was 11/22/23 and next dose is scheduled for 11/29/23. SW called [facility] and left ms to confirm recommendations and IV-Abx orders. Pt confirms he has a hx of needing SNF sometimes before return to [facility] pending discharge needs and is agreeable with either return to [facility] or [facility] if needed. Pt confirms he has a leg amputation and no longer ambulates at all but uses powerchair. Pt requested SW call his brother/DPOA Cornel to update. SW called Cornel and updated him and his on pt status and awaiting cultures and Wound MD to determine SNF vs return to [facility] at d/c. Plan: SW to follow closely for SNF vs return to [facility] and coordination of care with [facility] and [facility]. ALEC Woods Discharge Planning/Care Management CM Discharge Assessment Start: 11/24/23 12:59 Freq: Status: Active Protocol: Document 11/24/23 12:59 BF (Rec: 11/24/23 13:13 BF [id number]) Discharge Planning Assessment Assigned Driller'S Offsider ALEC Emery DPOA/Assigned Designee Name brother Cornel Contact Information [phone] Advance Directives? Yes: POLST;ADV DIR;POA Advance Directives on File Yes History Provided By Patient,Family Member,Medical Record Has Patient been admitted in last 30 No days? Comment last admit Dec 2022 last year Prior Living Arrangements Assisted Living Household Members none Type of transporation used prior to Relies on Others admit Independent with ADL's No Is patient alert and oriented? Yes Needs Assistance With Bathing,Meal Prep,Managing Medications,Home Chores / Shopping Caregiver for Another No Community Services used prior to Wound Care admission: Comment [facility] for chronic sacral wound at baseline DME Already Rented / Owned Other Comment Patient uses an electric power w/c at [facility] Patient/Family Preference Custodial Facility Comment SNF vs return to [facility] pending cultures and abx needs Barriers to Discharge No Discharge Plan Assisted Living Facility Community Services IV Therapy Transportation Arrangement Facility van likely Referrals Initiated Custodial Additional Comment Pending cultures and needs for [facility] vs [facility] at d/c Whiteboard Updated in Patient Room with Yes name and ext. # of Driller'S Offsider Review Status In Process Please Provide Date Initial DC 11/24/23 Assessment Was Performed Next Review Type Continued Stay Review
[2023-11-24] MEDS: ACETAMINOPHEN 325 MG TABLET 1000 MG PO (13:17)
[2023-11-24 14:00] VITALS: BP 110/71; PULSE 82; RESP 22; TEMP 36.5; O2SAT 98
--- NOTE | 2023-11-24 17:21 | P.CONS_ITS ---
History of Present Illness Consult details Date Patient Seen: 11/24/23 Time Patient Seen: 16:00 Chief complaint: weak/ n/v Narrative: The patient is a 68-year-old male with type 1 diabetes mellitus, CVA, cervical spine injury, anemia, ischemic cardiomyopathy, and PAD who was admitted to the hospital November 22, 2023 with mental status changes and UTI. Patient has been followed by the wound center for treatment of a stage III sacral pressure ulcer associated with osteomyelitis. Most recently he has been receiving dressing changes with Puracyn and and powdered collagen 3 times a week. He was recently started on IV dalbocancin therapy by the ID service and his mental status changes developed shortly after his 1st infusion. Previous cultures of the sacral pressure ulcer have grown Staphylococcus aureus and Corynebacterium straight him. The patient reports a poor appetite but does take protein supplements. He reports good control of his blood sugars. The patient is nonambulatory because of his previous cervical spine injury and resides [place] [facility]. Meds Home Medications and Allergies Home Medications Medication Instructions Recorded Confirmed Type acetaminophen 325 mg tablet 1,000 mg PO TID PRN pain/fever ##0 06/29/17 11/23/23 History atorvastatin 80 mg tablet 80 mg PO BEDTIME ##0 06/29/17 11/23/23 History levothyroxine 50 mcg tablet 50 mcg PO QPM ##0 06/29/17 11/23/23 History omeprazole 20 mg capsule,delayed 40 mg PO DAILY ##0 06/29/17 11/23/23 History release insulin aspart U-100 100 unit/mL See Rx Instructions .Route .COMPLEX 11/25/17 11/23/23 History (3 mL) subcutaneous pen (Novolog FlexPen U-100 Insulin aspart) cholecalciferol (vitamin D3) 25 2,000 unit PO DAILY 08/13/18 11/23/23 History mcg (1,000 unit) capsule fluticasone propionate 50 1 spray intranasal BID 08/13/18 11/23/23 History mcg/actuation nasal spray,suspension hydroxyzine pamoate 25 mg capsule 50 mg PO Q6H PRN pain/spasms 08/13/18 11/23/23 History mirtazapine 15 mg tablet 15 mg PO BEDTIME 08/13/18 11/23/23 History ondansetron 4 mg disintegrating 4 - 8 mg PO Q4H PRN Nausea 08/13/18 11/23/23 History tablet duloxetine 60 mg capsule,delayed 60 mg PO BEDTIME 03/02/19 11/23/23 History release glucagon (human recombinant) 1 mg 1 mg IM PRN PRN blood glucose <60 03/02/19 11/23/23 History solution for injection (Glucagon Emergency Kit) nystatin 100,000 unit/gram topical 1 applic topical BID PRN yeast 03/02/19 11/23/23 History cream aspirin 81 mg tablet,delayed 81 mg PO DAILY 07/04/21 11/23/23 History release lubiprostone 24 mcg capsule 24 mcg PO BID 07/04/21 11/23/23 History (Amitiza) oxycodone myristate 18 mg capsule 18 mg PO BID 07/04/21 11/23/23 History sprinkle extended release 12hr(DON'T CRUSH) (Xtampza ER) sertraline 50 mg tablet 50 mg PO DAILY 07/04/21 11/23/23 History tamsulosin 0.4 mg capsule 0.4 mg PO BEDTIME 07/04/21 11/23/23 History bisacodyl 10 mg rectal suppository 10 mg WI DAILY PRN Constipation #0 07/07/21 11/23/23 Rx ea naloxone 0.4 mg/mL injection 0.4 mg IM Q15-20M PRN Opioid 07/07/21 11/23/23 Rx solution Overdose #0 mL oxycodone 5 mg tablet 20 mg (4 x 5 mg) PO Q4H PRN pain 7 07/07/21 11/23/23 Rx days #40 tabs bisacodyl 5 mg tablet 5 - 10 mg PO DAILY PRN Constipation 12/01/22 11/23/23 History docusate sodium 100 mg tablet 200 mg PO TID 12/01/22 11/23/23 History furosemide 80 mg tablet 80 mg PO QAM 12/01/22 11/23/23 History insulin glargine 100 unit/mL (3 10 unit SUBCUT BEDTIME 12/01/22 11/23/23 History mL) subcutaneous pen (Lantus Solostar U-100 Insulin) lorazepam 1 mg tablet 1 mg PO BEDTIME PRN Insomnia 12/01/22 11/23/23 History magnesium hydroxide 400 mg/5 mL 30 ml PO DAILY PRN Constipation 12/01/22 11/23/23 History oral suspension (Milk of Magnesia) metoclopramide HCl 5 mg/5 mL oral 10 mg PO QAC 12/01/22 11/23/23 History solution oxymetazoline 0.05 % nasal spray 2 spray intranasal Q12H PRN 12/01/22 11/23/23 History nosebleed propylene glycol 1 %-glycerin 0.3 1 drp ophthalmic (eye) Q1H PRN Dry 12/01/22 11/23/23 History % eye drops Eyes sennosides 8.6 mg tablet (senna) 17.2 mg PO BID 12/01/22 11/23/23 History aluminum-mag hydroxide-simethicone 20 ml PO Q6H 11/23/23 11/23/23 History 400 mg-400 mg-40 mg/5 mL oral susp doxycycline monohydrate 100 mg 100 mg PO BID 11/23/23 11/23/23 History tablet ferrous sulfate 325 mg (65 mg 325 mg PO QPM 11/23/23 11/23/23 History iron) tablet loperamide 2 mg capsule 2 mg PO PRN PRN Diarrhea 11/23/23 11/23/23 History lorazepam 1 mg tablet 1 mg PO TID PRN Nausea And Vomiting 11/23/23 11/23/23 History polyethylene glycol 3350 17 17 g PO QPM 11/23/23 11/23/23 History gram/dose oral powder (Miralax) Allergies Allergy/AdvReac Type Severity Reaction Status Date / Time amitriptyline Allergy Verified 12/01/22 07:38 pollen extracts Allergy Verified 12/01/22 07:38 codeine [CODEINE] AdvReac Unknown nausea Verified 12/01/22 07:38 Review of Systems Cardiovascular Comments: No chest pain Respiratory Comments: No shortness of breath Integumentary/Breasts Comments: Occasional tenderness associated with sacral pressure ulcer Exam Vital Signs (past 8 hours): - 11/24/23 14:00 Temperature 97.7 F Pulse Rate 82 Respiratory Rate 22 Blood Pressure 110/71 Pulse Oximetry 98 Oxygen Delivery Method Room Air Oxygen Flow Rate 0 Const Other: Thin male who is awake and alert and in no apparent distress Resp Other: Unlabored Skin Other: Small stage III sacral decubitus with granulation tissue, no surrounding erythema or purulent drainage Objective Labs 11/22/23 18:11 11/24/23 08:55 Labs: Laboratory Results - last 24 hr 11/24/23 08:55 Sodium 134 L Potassium 3.9 Chloride 102 Carbon Dioxide 23 BUN 15 Creatinine 0.56 L Estimated GFR > 60 BUN/Creatinine Ratio 26.8 H Glucose 243 H Calcium 8.2 L Magnesium 1.9 Total Bilirubin 0.5 AST 31 ALT 23 Alkaline Phosphatase 137 H Total Protein 6.6 Albumin 3.7 Globulin 2.9 Albumin/Globulin Ratio 1.3 PFSH Medical History (Updated 11/24/23 @ 17:28 by Fritz Gómez MD) C3 spinal cord injury C4 spinal cord injury Hypertension Hyperlipidemia Gastroesophageal reflux disease CVA (cerebral vascular accident) Diabetes Surgical History History of carotid endarterectomy History of coronary artery stent placement No pertinent past surgical history Family History Mother Cancer Father Lung disease Hyperlipidemia Brother Lupus Social History household members: none Tobacco & Substance Use Smoking Status: Current every day smoker alcohol intake: former substance use type: does not use Additional Social History additional social history: He currently resides in He currently resides in [facility]. Assessment & Plan Assessment and plan (1) Sacral decubitus ulcer: Status: Acute (2) Osteomyelitis of vertebra, sacral and sacrococcygeal region: Status: Acute Assessment & Plan narrative: Stage III sacral pressure ulcer associated with osteomyelitis, no acute changes. Recommend continuing dressing changes with Puracyn and and powdered collagen every other day, pressure offloading, protein supplementation, antibiotic therapy as directed by ID service. Follow up at wound center after discharge. Time-Based Coding :: [45] spent with patient and on the chart (including review of chart, obtaining history, exam, reviewing outside data, placing orders, documenting exam and treatment plan, and counseling patient) on [11/24/23].
[2023-11-24] MEDS: FERROUS SULFATE 325 MG TABLET PO (17:29)
[2023-11-24] MEDS: polyethylene glycoL 3350 17 GM POWD.PACK PO (17:29)
[2023-11-24 21:01] VITALS: BP 169/69; PULSE 78; RESP 17; TEMP 36.3; O2SAT 97
--- NOTE | 2023-11-24 21:14 | PC.NURSE ---
cardiac specialist Pt Blood glucose of 294 per EMAR protocol 2 units correction, Pt stated he would do 8 units for correction, MD Mao notified and gave Permission for additional Insulin for correction. WIll recheck BG PRN.
[2023-11-24] MEDS: INSULIN GLARGINE 100 UNIT/ML 3ML PEN 10 UNIT SUBCUT (21:32)
[2023-11-24] MEDS: cefTRIAXone 1,000 MG in SODIUM CHLORIDE 0.9% 100 ML 200 MG IV (21:39)
[2023-11-24] MEDS: DULOXETINE 30 MG CAPSULE 60 MG PO (21:41)
[2023-11-24] MEDS: TAMSULOSIN 0.4 MG CAPSULE PO (21:41)
[2023-11-24] MEDS: LORazepam 1 MG TABLET PO (21:42)
[2023-11-24] MEDS: ATORVASTATIN 20 MG TABLET 80 MG PO (21:42)
[2023-11-24] MEDS: MIRTAZAPINE 15 MG TABLET PO (21:42)
[2023-11-24] MEDS: LEVOTHYROXINE 50 MCG TABLET PO (21:53)
[2023-11-24] MEDS: KETOROLAC 10 MG TABLET PO (22:18)
[2023-11-24] MEDS: MELATONIN 3 MG TABLET 9 MG PO (22:18)
[2023-11-25 02:05] VITALS: BP 127/59; PULSE 71; RESP 17; O2SAT 94
[2023-11-25] MEDS: OXYCODONE IR 5 MG TABLET 20 MG PO ×2 (04:59→08:58)
[2023-11-25] MEDS: hydrOXYzine HCL 25 MG TABLET 50 MG PO ×2 (05:28→08:59)
[2023-11-25] MEDS: PANTOPRAZOLE DR 40 MG TABLET PO (05:37)
[2023-11-25 06:20] LABS: Alanine Aminotransferase 23 IU/L (<50); Albumin 3.4 g/dL (3.5-5.0); Alkaline Phosphatase 130 U/L (38-126); Aspartate Aminotransferase 29 IU/L (17-59); BUN Creatinine Ratio 21.6 (6-22); Bilirubin Total 0.4 mg/dL (0.2-1.3); Blood Urea Nitrogen 16 mg/dL (9-20); Calcium 8.4 mg/dL (8.4-10.2); Carbon Dioxide 29 mmol/L (22-32); Chloride 100 mmol/L (98-107); Estimated Glomerular Filt Rate > 60 mL/min (>60); Globulin 3.3 g/dL (1.7-4.1); Glucose 87 mg/dL (80-110); HEMOLYSIS < 15 (0-50); Magnesium 1.9 mg/dL (1.6-2.3); Potassium 3.7 mmol/L (3.4-5.1); Sodium 133 mmol/L (137-145); Total Protein 6.7 g/dL (6.3-8.2)
[2023-11-25 06:41] LABS: Hemoglobin A1C% w Est Avg Glu 7.1 % (4.0-6.0)
[2023-11-25 08:00] VITALS: BP 155/68; PULSE 75; RESP 16; TEMP 36.6; O2SAT 95
--- NOTE | 2023-11-25 08:02 | P.PN_ITS ---
Subjective Subjective Interval history: S: He was doing well. He denies pain. He was receiving IV antibiotics for his chronic sacral decubitus with Pseudomonas as well as a urine tract infection with cultures pending. Exam Vital Signs (past 8 hours): - 11/25/23 02:05 Pulse Rate 71 Respiratory Rate 17 Blood Pressure 127/59 L Pulse Oximetry 94 Oxygen Delivery Method Room Air Oxygen Flow Rate 0 Narrative Exam Narrative: NAD, alert and oriented. Fluent speech. Lungs are clear, normal rate and effort. Heart is regular, no murmur gallop or rub. Abdomen is soft, non distended. Extremities are free of edema. Chronic right AKA. Objective Labs 11/22/23 18:11 11/25/23 06:00 Labs: Laboratory Results - last 24 hr 11/24/23 11/25/23 08:55 06:00 Sodium 134 L 133 L Potassium 3.9 3.7 Chloride 102 100 Carbon Dioxide 23 29 BUN 15 16 Creatinine 0.56 L 0.74 Estimated GFR > 60 > 60 BUN/Creatinine Ratio 26.8 H 21.6 Glucose 243 H 87 D Hemoglobin A1c 7.1 H Calcium 8.2 L 8.4 Magnesium 1.9 1.9 Total Bilirubin 0.5 0.4 AST 31 29 ALT 23 23 Alkaline Phosphatase 137 H 130 H Total Protein 6.6 6.7 Albumin 3.7 3.4 L Globulin 2.9 3.3 Albumin/Globulin Ratio 1.3 1.0 PFSH Medical History C3 spinal cord injury C4 spinal cord injury Hypertension Hyperlipidemia Gastroesophageal reflux disease CVA (cerebral vascular accident) Diabetes Surgical History History of carotid endarterectomy History of coronary artery stent placement No pertinent past surgical history Family History Mother Cancer Father Lung disease Hyperlipidemia Brother Lupus Social History household members: none Smoking Status: Current every day smoker alcohol intake: former substance use type: does not use additional social history: He currently resides in He currently resides in [facility]. Assessment & Plan Assessment & Plan narrative: 1. Septic encephalopathy due to UTI, present on admission and improved. -Blood culture, urine culture, -Antibiotics, ceftriaxone, 2. CAD, present on admission and stable. -Restart aspirin, Plavix, statins 3. Hypothyroidism, present on admission and stable. -Restart levothyroxine 4. CHF, present on admission and stable. - Restart Lasix 5. Hyperlipidemia, present on admission and stable. -Restart atorvastatin. 6. Diabetes mellitus type 2, present on admission and active. -Restart home insulin, ADA diet, monitor blood sugar ACHS, SSI 7. Chronic pain, present on admission and active. -Restart hydroxyzine and oxycodone. 8. GERD, present on admission and active. -Restart omeprazole. 9. Constipation, present on admission and active. -Restart MiraLAX and senna. 10. BPH, present on admission and active. -Restart tamsulosin 11. Depression, present on admission and active. -Restart sertraline 12. Chronic sacral ulcer, present on admission and active. PLAN: -continue antibiotics (Cefepme). -follow up blood cultures and urine culture. -wound cultures will be obtained as well. -hold long-acting oxycodone and continue with the short-acting. -Wound consult. Thanks -we will discuss with Infectious Disease to see without would recommend for under approach to this sacral DU. I would imagine he needs weeks of IV antibiotics. He believes he was seen Dr. Grant in the past and I will reach out to her. He will likely need a PICC line in the next day or so. He is full code DEMI we will be 11/24 with returned back to [facility] for IV antibiotics. Time-Based Coding :: 25 min spent with patient and on the chart (including review of chart, obtaining history, exam, reviewing outside data, placing orders, documenting exam and treatment plan, and counseling patient) on 11/24. Quality VTE Deep Vein Thrombosis/Pulmonary Embolism Present on Admission: No
[2023-11-25] MEDS: polyethylene glycoL 3350 17 GM POWD.PACK PO (08:57)
[2023-11-25] MEDS: FUROSEMIDE 40 MG TABLET 80 MG PO (08:58)
[2023-11-25] MEDS: DOCUSATE 100 MG CAPSULE 200 MG PO ×2 (08:59→15:28)
[2023-11-25] MEDS: CEFEPIME 2 GM in SODIUM CHLORIDE 0.9% 100 ML IV (08:59)
[2023-11-25] MEDS: CHOLECALCIFEROL (VITAMIN D3) 1,000 UNIT TABLET 2000 UNIT PO (08:59)
[2023-11-25] MEDS: CLOPIDOGREL 75 MG TABLET PO (08:59)
[2023-11-25] MEDS: SENNOSIDES 8.6 MG TABLET 17.2 MG PO (08:59)
[2023-11-25] MEDS: SERTRALINE 50 MG TABLET PO (08:59)
[2023-11-25] MEDS: ASPIRIN EC 81 MG TABLET PO (08:59)
[2023-11-25] MEDS: METOCLOPRAMIDE HCL 5 MG TABLET 10 MG PO (11:40)
[2023-11-25] MEDS: INSULIN LISPRO 100 UNIT/ML 3ML VIAL SUBCUT (12:06)
--- NOTE | 2023-11-25 13:34 | CM.DPC ---
Addendum entered by ALEC Woods 11/25/23 14:51: ADD: Per MD, white count and labs normal and pt can d/c with 10 days PO Cipro abx. NORBERT faxed d/c summary and signed med list to [facility] and updated Kwan at [facility] and she confirms transport can cotton picking machine operator pt after 1500. NORBERT updated bisque brusher, SALES PROJECT MANAGER, and RN and updated pt bedside. BF Original Note: DCP Cont: Per MD, wound consult MD saw pt and made recommendations and MD spoke to ID MD Dr. Noel at [facility] and confirmed pt's two doses of IV abx (one dose was on 11/21 and next dose on 11/28) and pending labs this afternoon and white count, can likely d/c today vs tomorrow on oral abx. NORBERT met bedside with pt and updated and he remains agreeable. NORBERT called Kwan at [facility] and updated on above and she confirms they can accept pt back today or tomorrow and will just need d/c summ and signed med list. NORBERT updated RN. Plan: Follow for labs and white count to determine plan of discharge back to [facility] via facility van on po abx and ongoing outpt f/u with [facility] and [facility] ID . ALEC Woods
[2023-11-25 13:39] LABS: Add Manual Diff / Slide Review NO; Basophils Absolute Auto 100 /uL (0-100); Basophils Percent Auto 0.9 % (0-2); Eosinophils Absolute Auto 400 /uL (0-450); Eosinophils Percent Auto 4.5 % (2-4); Hematocrit 33.2 % (41-53); Hemoglobin 11.1 g/dL (13.5-17.5); Lymphocytes Absolute Auto 1600 /uL (1100-4500); Mean Corpuscular HGB Conc 33.3 % (30-36); Mean Corpuscular Hemoglobin 28.9 PG (26-34); Mean Corpuscular Volume 86.8 fL (80-100); Monocytes Absolute Auto 800 /uL (0-900); Monocytes Percent Auto 9.5 % (3-14); Neutrophils Absolute Auto 5500 /uL (1500-7000); Neutrophils Percent Auto 66.1 % (50-75); Platelet Count 333 X10^3/uL (150-400); Red Blood Cell Count 3.83 X10^6/uL (4.5-5.9); Red Cell Distribution Width 14.1 % (11.6-14.8); White Blood Cell Count 8.4 X10^3/uL (4.5-11.0)
--- NOTE | 2023-11-25 14:07 | DIET.CONS ---
Dietary Consultation Note Admission Date: 11/22/2023 22:53 Assessment: 68 y M presented for weakness and acute confusion. PMH DM, A1c 7.1%. Nutrition screened due to stage 3 ulcer. Met with pt at bedside in morning. Pt open to discuss Juan and adequate protein intake for healing. Ht: 167.64 cm Wt: 63.503 kg BMI: 22.6 Last BM: 11/21/23 (11/23/23 13:32) MNA: Edgard Score: 17 Diet: 11/23/23 Breakfast Carbohydrate Consistent Diet Diet Modifications: Carbohydrate level: Medium (3 CHO) Reflex DM orders: No Nutrition Percent Meal Consumed 50% 11/25/23 13:34 Percent Meal Consumed 75% 11/25/23 08:00 Percent Meal Consumed 100% 11/24/23 18:00 Percent Meal Consumed 25% 11/24/23 14:00 Percent Meal Consumed 25% 11/24/23 10:00 Percent Meal Consumed 50% 11/23/23 18:00 Labs: RBC 3.83 X10^6/uL (4.5-5.9) L 11/25/23 13:30 Hgb 11.1 g/dL (13.5-17.5) L 11/25/23 13:30 Hct 33.2 % (41-53) L 11/25/23 13:30 Creatinine 0.74 mg/dL (0.66-1.25) 11/25/23 06:00 Hemoglobin A1c 7.1 % (4.0-6.0) H 11/25/23 06:00 Lactate 1.3 mmol/L (0.7-2.1) 11/22/23 21:02 Nutrition Diagnosis: Increased nutrient needs (protein) r/t wound healing aeb stage 3 chronic ulcer Interventions: Juan BID Reviewed protein sources, discussed Juan, encouraged adequate intake with ONS prn EER: 80-90 g protein (1.25-1.5 g/kg per wound) Monitoring/Evaluations: f/u prn Electronically Signed by: Rachael Bragg 11/25/23 14:07 Clinical Dietitian [address] [id number]
--- NOTE | 2023-11-25 14:30 | P.DS_ITS ---
History of Present Illness History of Present Illness Chief complaint: weak/ n/v Narrative: 68 years old male with history of hypertension, hyperlipidemia, GERD, CVA, diabetes mellitus type 2, presents to the ER from [facility] for confusion. The patient has a history of sacral osteomyelitis and just started IV therapy with doxycycline from through . After the infusion the nursing staff noted the patient is kind of confused. Sent to the ER for further evaluation. Denies any other symptoms. Takes oxycodone for chronic pain. Laboratory shows WBC 21.3, glucose 352, lactic acid 1.3, lipase 51, creatinine 0.77, U tox positive for oxycodone, UA positive for UTI, negative COVID, pelvic MRI from 10/04/2023 shows full thickening ulceration involving the lower sacrum and upper coccygeal level with surrounding cellulitis. No discrete drainable abscess collection. In the ER he was given ceftriaxone 1 g IV, fluid bolus. Discharge Providers Provider Date of admission: 11/22/23 22:53 Discharge Date: 11/25/23 Primary care physician: BOO Harden Consults: 11/22/23 23:51 Consult to Discharge Planning Routine Comment: 11/23/23 04:43 Consult to Inpatient Wound Care Nurse Routine Comment: Reason for consultation: management of sacral ulcer Has provider been notified: No 11/24/23 14:37 Consult to Wound Care Routine Comment: Consulting Provider: [facility] Discharge provider: Anand Jackman MD Summary Hospital Course Discharge Diagnosis: 1. Septic encephalopathy due to UTI, present on admission and improved. -Blood culture, urine culture, -Antibiotics, ceftriaxone, 2. CAD, present on admission and stable. -Restart aspirin, Plavix, statins 3. Hypothyroidism, present on admission and stable. -Restart levothyroxine 4. CHF, present on admission and stable. - Restart Lasix 5. Hyperlipidemia, present on admission and stable. -Restart atorvastatin. 6. Diabetes mellitus type 2, present on admission and active. -Restart home insulin, ADA diet, monitor blood sugar ACHS, SSI 7. Chronic pain, present on admission and active. -Restart hydroxyzine and oxycodone. 8. GERD, present on admission and active. -Restart omeprazole. 9. Constipation, present on admission and active. -Restart MiraLAX and senna. 10. BPH, present on admission and active. -Restart tamsulosin 11. Depression, present on admission and active. -Restart sertraline 12. Chronic sacral ulcer, present on admission and active. Hospital Course: He was admitted with altered mental status and found to have a urinary tract infection. This on top of his chronic sacral ulcer for which she was being treated with Dalbavancin on a weekly basis for 2 doses by Infectious Disease at [facility]. His dates of administration were 11/21 and we will be 11/28. He improved with antibiotics in the hospital (Ceftriaxone), his urine grew Pseudomonas which was castaneda-sensitive. He was discussed with the Infectious we will be discharge back to his facility with Cipro 500 b.i.d. orally for 10 days. His mental status appeared to he was baseline is assisted living facility was able to receive him back. His wound was also inspected by wound care doctor, who follows him chronically. Status at Discharge Cognitive/behavioral status at discharge: oriented Functional status at discharge: bed bound Overall status at discharge: patient is back to baseline Time Spent with Patient Time spent: Greater than 30 minutes Exam Vital Signs (past 8 hours): - 11/25/23 08:00 Temperature 97.8 F Pulse Rate 75 Respiratory Rate 16 Blood Pressure 155/68 H Pulse Oximetry 95 Oxygen Flow Rate 0 Oxygen Delivery Method Room Air Oxygen Flow Rate 0 Narrative Exam Narrative: NAD, alert and oriented. Fluent speech. Lungs are clear, normal rate and effort. Heart is regular, no murmur gallop or rub. Abdomen is soft, non distended. Extremities are free of edema. Chronic right AKA. Objective Imaging CT scan - abdomen: Radiologist's impression: CT scan - abdomen: Radiologist's impression: 1. There are extensive changes of pain colitis, most impressive distally. Consider C difficile colitis or other infectious etiology. 2. Severe coronary artery calcifications. 3. Extensive peripheral vascular disease with probable hemodynamically significant common iliac artery stenotic disease bilaterally. 4. Right ureteral stent in place. Mild prominence of the right collecting system. 5. Distended gallbladder and mild dilatation of the biliary tree without obstructing lesion noted. 6. Mild bibasilar atelectasis. Comment: If clinically suspect biliary obstruction, consider MRCP on a nonemergent basis to identify whether common duct stone is present. Recent pelvis MRI:: Radiologist's impression: 1. Full-thickness ulceration involving lower sacrum/upper coccygeal level just to the right of midline with surrounding cellulitis. No discrete drainable abscess collection. No gross pelvic muscle signal abnormalities. 2. Edema and subtle erosive changes involving right posterior periphery of upper coccyx and show questionable enhancement concerning for osteomyelitis in this area. No other area of abnormal marrow signal or enhancement is seen. 3. No gross pelvic lymphadenopathy by size criteria. No pelvic free fluid. Labs 11/25/23 13:30 11/25/23 06:00 Labs: Laboratory Results - last 24 hr 11/25/23 11/25/23 06:00 13:30 WBC 8.4 RBC 3.83 L Hgb 11.1 L Hct 33.2 L MCV 86.8 MCH 28.9 MCHC 33.3 RDW 14.1 Plt Count 333 Neut % (Auto) 66.1 Lymph % (Auto) 19.0 L [place] % (Auto) 9.5 Eos % (Auto) 4.5 H Baso % (Auto) 0.9 Neut # (Auto) 5500 Lymph # (Auto) 1600 [place] # (Auto) 800 Eos # (Auto) 400 Baso # (Auto) 100 Sodium 133 L Potassium 3.7 Chloride 100 Carbon Dioxide 29 BUN 16 Creatinine 0.74 Estimated GFR > 60 BUN/Creatinine Ratio 21.6 Glucose 87 D Hemoglobin A1c 7.1 H Calcium 8.4 Magnesium 1.9 Total Bilirubin 0.4 AST 29 ALT 23 Alkaline Phosphatase 130 H Total Protein 6.7 Albumin 3.4 L Globulin 3.3 Albumin/[facility] 1.0 [facility] History C3 spinal cord injury C4 spinal cord injury Hypertension Hyperlipidemia Gastroesophageal reflux disease CVA (cerebral vascular accident) Diabetes Surgical History History of carotid endarterectomy History of coronary artery stent placement No pertinent past surgical history Family History Mother Cancer Father Lung disease Hyperlipidemia Brother Lupus Social History household members: none Smoking Status: Current every day smoker alcohol intake: former substance use type: does not use additional social history: He currently resides in He currently resides in [facility]. Discharge Assessment & Plan Assessment and Plan Assessment: 1. Septic encephalopathy due to UTI, present on admission and improved. -Blood cultures negative, urine culture = castaneda-sensitive pseudomonas. -Antibiotics, ceftriaxone, 2. CAD, present on admission and stable. -Restart aspirin, Plavix, statins 3. Hypothyroidism, present on admission and stable. -Restart levothyroxine 4. CHF, present on admission and stable. - Restart Lasix 5. Hyperlipidemia, present on admission and stable. -Restart atorvastatin. 6. Diabetes mellitus type 2, present on admission and active. -Restart home insulin, ADA diet, monitor blood sugar ACHS, SSI 7. Chronic pain, present on admission and active. -Restart hydroxyzine and oxycodone. 8. GERD, present on admission and active. -Restart omeprazole. 9. Constipation, present on admission and active. -Restart MiraLAX and senna. 10. BPH, present on admission and active. -Restart tamsulosin 11. Depression, present on admission and active. -Restart sertraline 12. Chronic sacral ulcer, present on admission and active. Plan of Treatment: Discharge back to his in with the addition of Cipro 500 be he for a 10 day course. Discharge Plan Discharge Plan Patient Disposition: Assisted Living Transfer to: [facility] Provider Discharge Comment: Stable for discharge back to assisted living, IV antibiotics per Infectious Disease and oral Cipro for 10 days for urinary tract infection. Discharge orders & Medications Discharge Orders: Discharge (Order); Ordered 11/25/23 Ordered By: Anand Jackman Prescriptions: New ciprofloxacin HCl [Cipro] 500 mg tablet 500 mg PO BID Qty: 20 0RF Continued atorvastatin 80 MG tablet 80 mg PO BEDTIME Qty: 0 levothyroxine 50 MCG tablet 50 mcg PO QPM Qty: 0 acetaminophen 325 MG tablet 1,000 mg PO TID PRN (Reason: pain/fever) Qty: 0 omeprazole 20 MG capsule,delayed release(DR/EC) 40 mg PO DAILY Qty: 0 tamsulosin 0.4 mg capsule 0.4 mg PO BEDTIME sertraline 50 mg tablet 50 mg PO DAILY Xtampza ER 18 mg cap,sprinkl,ER12hr(DONT CRUSH) 18 mg PO BID lubiprostone [Amitiza] 24 mcg capsule 24 mcg PO BID aspirin 81 mg tablet,delayed release (DR/EC) 81 mg PO DAILY naloxone 0.4 mg/mL solution 0.4 mg IM Q15-20M PRN (Reason: Opioid Overdose) Qty: 0 0RF bisacodyl 10 MG suppository 10 mg OK DAILY PRN (Reason: Constipation) Qty: 0 0RF oxycodone 5 mg tablet 20 mg PO Q4H PRN (Reason: pain) 7 Days Qty: 40 0RF Rx Instructions: hold if too sedated doxycycline monohydrate 100 mg tablet 100 mg PO BID loperamide 2 mg capsule 2 mg PO PRN PRN (Reason: Diarrhea) ferrous sulfate 325 mg (65 mg iron) Tablet 325 mg PO QPM lorazepam 1 mg Tablet 1 mg PO TID PRN (Reason: Nausea And Vomiting) polyethylene glycol 3350 [Miralax] 17 gram/dose Powder 17 g PO QPM alum-mag hydroxide-simeth 400-400-40 mg/5 mL Suspension 20 ml PO Q6H mirtazapine 15 mg Tablet 15 mg PO BEDTIME fluticasone propionate 50 mcg/actuation [place],Suspension 1 spray INTRANASAL BID cholecalciferol (vitamin D3) 1,000 unit Capsule 2,000 unit PO DAILY hydroxyzine pamoate 25 mg Capsule 50 mg PO Q6H PRN (Reason: pain/spasms) ondansetron 4 mg Tablet,Disintegrating 4 - 8 mg PO Q4H PRN (Reason: Nausea) Patient Comments: 1 - 2 prn nausea Glucagon Emergency Kit (human) 1 mg Recon Soln 1 mg IM PRN MDD ` PRN (Reason: blood glucose <60) duloxetine 60 mg capsule,delayed release(DR/EC) 60 mg PO BEDTIME nystatin 100,000 unit/gram Cream 1 applic TOPICAL BID PRN (Reason: yeast) furosemide 80 mg Tablet 80 mg PO QAM lorazepam 1 mg Tablet 1 mg PO BEDTIME PRN (Reason: Insomnia) docusate sodium 100 mg Tablet 200 mg PO TID bisacodyl 5 mg Tablet 5 - 10 mg PO DAILY PRN (Reason: Constipation) propylene glycol-glycerin 1-0.3 % Drops 1 drp OPHTHALMIC (EYE) Q1H PRN (Reason: Dry Eyes) insulin glargine [Lantus Solostar U-100 Insulin] 100 unit/mL (3 mL) Insulin Pen 10 unit SUBCUT BEDTIME sennosides [senna] 8.6 mg Tablet 17.2 mg PO BID metoclopramide HCl 5 mg/5 mL Solution 10 mg PO QAC Rx Instructions: before meals for chronic nausea magnesium hydroxide [Milk of Magnesia] 400 mg/5 mL Suspension 30 ml PO DAILY PRN (Reason: Constipation) oxymetazoline 0.05 % [place],Non-Aerosol 2 spray INTRANASAL Q12H PRN (Reason: nosebleed) insulin aspart U-100 [Novolog FlexPen U-100 Insulin] 100 unit/mL insulin pen See Rx Instructions .ROUTE .COMPLEX Rx Instructions: Per [facility] med list, insulin instructions are per Ray who directs his own dosing of insulin based on what he is about to consume w/ meals Follow up/Referrals: Eli Montanez ARNP [Primary Care Provider] - Discharge Health Status Multidrug resistant organism: No MDRO Diet/Activity/Treatments Diet: Carb-consistent/Diabetic Skin/Wound/Dressing Care Report to your healthcare provider any signs of infection, such as:: chills, fever, increased pain, unusual drainage and unusual redness Visit Report/Discharge Packet Instructions: DI for Urinary Tract Infection (UTI) Stand Alone Forms: Patient Portal/API Discharge Data Primary Care Provider: Eli Montanez Quality VTE Deep Vein Thrombosis/Pulmonary Embolism Present on Admission: No
--- NOTE | 2023-11-25 14:50 | PC.NURSE ---
Day shift: Dressing changed on coccyx area at approx 1445. Pressure injury on coccyx w/ no s/s of infection. Tolerated dressing change well.
--- NOTE | 2023-11-25 15:10 | PC.NURSE ---
Day shift: Went over d/c paperwork with Pt and he had no questions. Paperwork signed also. Placed d/c paperwork in Pt's belongings bag. All personal belongings have been gathered. Awaiting transport person at this time.
--- NOTE | 2023-11-25 15:53 | PC.NURSE ---
Day shift: Left unit at approx 1553 with transport person. On his way back to the facility he has been living at for the last 8 years (per Pt).
== END 2023-11-25 15:58 | DRG 689 ==
LOC: ED 22:44 → AC 22:54
PROVIDERS: Emergency Medicine; Hospitalist; Admitting Provider Internal Medicine; Emergency Provider Emergency Medicine; Family Provider Nurse Practitioner Family; PCP Nurse Practitioner Family; Referring Provider Emergency Medicine; Visit Provider Internal Medicine
DX: N39.0 Urinary tract infection, site not specified (principal); G93.41 Metabolic encephalopathy; L89.153 Pressure ulcer of sacral region, stage 3; M46.28 Osteomyelitis of vertebra, sacral and sacrococcygeal region; I25.10 Atherosclerotic heart disease of native coronary artery without angina pectoris; E03.9 Hypothyroidism, unspecified; I50.9 Heart failure, unspecified; E78.5 Hyperlipidemia, unspecified; G89.29 Other chronic pain; K21.9 Gastro-esophageal reflux disease without esophagitis; K59.00 Constipation, unspecified; N40.0 Benign prostatic hyperplasia without lower urinary tract symptoms; F32.A Depression, unspecified; L98.429 Non-pressure chronic ulcer of back with unspecified severity; F17.210 Nicotine dependence, cigarettes, uncomplicated; E11.69 Type 2 diabetes mellitus with other specified complication; I11.0 Hypertensive heart disease with heart failure; Z79.4 Long term (current) use of insulin
CPT/HCPCS: 0241U; 36415; 80053; 80305; 80320; 81001; 82962; 83036; 83605; 83690; 83735; 85025; 87040; 87077; 87086; 87186; 93005; 96365; 96375; 99232; 99284; 99291; A9270; J0360; J0692; J0696; J1815; J2405

== ENCOUNTER → 2023-12-01 10:08 | Outpatient (CLI) | payer MEDICARE, MEDICAID, SELFPAY ==
[2023-11-23 13:32] VITALS: BMI 22.6
== END ==
PROVIDERS: Family Provider Nurse Practitioner Family; PCP Nurse Practitioner Family; Referring Provider Nurse Practitioner Family; Visit Provider Nurse Practitioner Family
DX: L89.153 Pressure ulcer of sacral region, stage 3 (principal); L89.313 Pressure ulcer of right buttock, stage 3; M46.28 Osteomyelitis of vertebra, sacral and sacrococcygeal region; E10.628 Type 1 diabetes mellitus with other skin complications; D64.9 Anemia, unspecified; I25.5 Ischemic cardiomyopathy; G81.90 Hemiplegia, unspecified affecting unspecified side
CPT/HCPCS: 11042

== ENCOUNTER → 2023-12-08 11:37 | Outpatient (CLI) | payer MEDICARE, MEDICAID, SELFPAY ==
[2023-11-23 13:32] VITALS: BMI 22.6
== END ==
LOC: WC 11:37
PROVIDERS: Family Provider Nurse Practitioner Family; PCP Nurse Practitioner Family; Referring Provider Nurse Practitioner Family; Visit Provider Surgery
DX: L89.153 Pressure ulcer of sacral region, stage 3 (principal); L89.313 Pressure ulcer of right buttock, stage 3; R60.0 Localized edema; M46.28 Osteomyelitis of vertebra, sacral and sacrococcygeal region; E10.628 Type 1 diabetes mellitus with other skin complications; D64.9 Anemia, unspecified; G81.90 Hemiplegia, unspecified affecting unspecified side; I25.5 Ischemic cardiomyopathy; I73.9 Peripheral vascular disease, unspecified; M62.81 Muscle weakness (generalized); Z79.2 Long term (current) use of antibiotics
CPT/HCPCS: 11042; 99213

== ENCOUNTER → 2023-12-15 10:43 | Outpatient (CLI) | payer MEDICARE, MEDICAID, SELFPAY ==
[2023-11-23 13:32] VITALS: BMI 22.6
== END ==
LOC: WC 10:43
PROVIDERS: Family Provider Nurse Practitioner Family; PCP Nurse Practitioner Family; Referring Provider Nurse Practitioner Family; Visit Provider Surgery
DX: L89.153 Pressure ulcer of sacral region, stage 3 (principal); L89.313 Pressure ulcer of right buttock, stage 3; E10.628 Type 1 diabetes mellitus with other skin complications; R60.0 Localized edema; M46.28 Osteomyelitis of vertebra, sacral and sacrococcygeal region
CPT/HCPCS: 11042

== ENCOUNTER → 2023-12-22 10:08 | Outpatient (CLI) | payer MEDICARE, MEDICAID, SELFPAY ==
[2023-11-23 13:32] VITALS: BMI 22.6
== END ==
LOC: WC 10:09
PROVIDERS: Family Provider Nurse Practitioner Family; PCP Nurse Practitioner Family; Referring Provider Nurse Practitioner Family; Visit Provider Surgery
DX: L89.153 Pressure ulcer of sacral region, stage 3 (principal); L89.313 Pressure ulcer of right buttock, stage 3; R60.0 Localized edema; E11.628 Type 2 diabetes mellitus with other skin complications; D64.9 Anemia, unspecified; I25.5 Ischemic cardiomyopathy; G81.90 Hemiplegia, unspecified affecting unspecified side; M86.68 Other chronic osteomyelitis, other site
CPT/HCPCS: 11042; 97597; 99213

== ENCOUNTER → 2023-12-29 10:07 | Outpatient (CLI) | payer MEDICARE, MEDICAID, SELFPAY ==
[2023-11-23 13:32] VITALS: BMI 22.6
== END ==
PROVIDERS: Family Provider Nurse Practitioner Family; PCP Nurse Practitioner Family; Referring Provider Nurse Practitioner Family; Visit Provider Surgery
DX: L89.153 Pressure ulcer of sacral region, stage 3 (principal); L89.313 Pressure ulcer of right buttock, stage 3; M46.28 Osteomyelitis of vertebra, sacral and sacrococcygeal region; R60.0 Localized edema; E10.628 Type 1 diabetes mellitus with other skin complications; G81.90 Hemiplegia, unspecified affecting unspecified side; I25.5 Ischemic cardiomyopathy; D64.9 Anemia, unspecified
CPT/HCPCS: 11042

== ENCOUNTER → 2024-01-12 12:33 | Outpatient (CLI) | payer MEDICARE, MEDICAID, SELFPAY ==
[2023-11-23 13:32] VITALS: BMI 22.6
== END ==
PROVIDERS: Family Provider Nurse Practitioner Family; PCP Nurse Practitioner Family; Referring Provider Registered Nurse; Visit Provider Surgery
DX: L89.153 Pressure ulcer of sacral region, stage 3 (principal); L89.313 Pressure ulcer of right buttock, stage 3; M46.28 Osteomyelitis of vertebra, sacral and sacrococcygeal region; E10.628 Type 1 diabetes mellitus with other skin complications; D64.9 Anemia, unspecified; I25.5 Ischemic cardiomyopathy; F17.210 Nicotine dependence, cigarettes, uncomplicated; G81.90 Hemiplegia, unspecified affecting unspecified side
CPT/HCPCS: 11042; 99213

== ENCOUNTER → 2024-01-26 10:10 | Outpatient (CLI) | payer MEDICARE, MEDICAID, SELFPAY ==
[2023-11-23 13:32] VITALS: BMI 22.6
== END ==
PROVIDERS: Family Provider Nurse Practitioner Family; PCP Nurse Practitioner Family; Referring Provider Nurse Practitioner Family; Visit Provider Surgery
DX: L89.153 Pressure ulcer of sacral region, stage 3 (principal); L89.313 Pressure ulcer of right buttock, stage 3; R60.0 Localized edema; E11.628 Type 2 diabetes mellitus with other skin complications; M46.28 Osteomyelitis of vertebra, sacral and sacrococcygeal region; D64.9 Anemia, unspecified; I25.5 Ischemic cardiomyopathy; G81.90 Hemiplegia, unspecified affecting unspecified side
CPT/HCPCS: 11042

== ENCOUNTER → 2024-02-09 10:12 | Outpatient (CLI) | payer MEDICARE, MEDICAID, SELFPAY ==
[2023-11-23 13:32] VITALS: BMI 22.6
== END ==
LOC: WC 10:13
PROVIDERS: Family Provider Nurse Practitioner Family; PCP Nurse Practitioner Family; Referring Provider Nurse Practitioner Family; Visit Provider Surgery
DX: L89.153 Pressure ulcer of sacral region, stage 3 (principal); L89.313 Pressure ulcer of right buttock, stage 3; M46.28 Osteomyelitis of vertebra, sacral and sacrococcygeal region; E10.628 Type 1 diabetes mellitus with other skin complications; I25.5 Ischemic cardiomyopathy; D64.9 Anemia, unspecified; G81.90 Hemiplegia, unspecified affecting unspecified side
CPT/HCPCS: 11042

== ENCOUNTER → 2024-02-23 10:04 | Outpatient (CLI) | payer MEDICARE, MEDICAID, SELFPAY ==
[2023-11-23 13:32] VITALS: BMI 22.6
== END ==
LOC: WC 10:04
PROVIDERS: Family Provider Nurse Practitioner Family; PCP Nurse Practitioner Family; Referring Provider Nurse Practitioner Family; Visit Provider Surgery
DX: L89.153 Pressure ulcer of sacral region, stage 3 (principal); L89.313 Pressure ulcer of right buttock, stage 3; R60.0 Localized edema; E10.628 Type 1 diabetes mellitus with other skin complications; M46.28 Osteomyelitis of vertebra, sacral and sacrococcygeal region; D64.9 Anemia, unspecified; G81.90 Hemiplegia, unspecified affecting unspecified side; I25.5 Ischemic cardiomyopathy
CPT/HCPCS: 11042

== ENCOUNTER → 2024-03-08 09:58 | Outpatient (CLI) | payer MEDICARE, MEDICAID, SELFPAY ==
[2023-11-23 13:32] VITALS: BMI 22.6
== END ==
PROVIDERS: Family Provider Nurse Practitioner Family; PCP Nurse Practitioner Family; Referring Provider Nurse Practitioner Family; Visit Provider Surgery
DX: E10.628 Type 1 diabetes mellitus with other skin complications (principal); L89.153 Pressure ulcer of sacral region, stage 3; L89.303 Pressure ulcer of unspecified buttock, stage 3; M46.28 Osteomyelitis of vertebra, sacral and sacrococcygeal region; F17.210 Nicotine dependence, cigarettes, uncomplicated
CPT/HCPCS: 11042; 99213

== ENCOUNTER → 2024-03-22 09:57 | Outpatient (CLI) | payer MEDICARE, MEDICAID, SELFPAY ==
[2023-11-23 13:32] VITALS: BMI 22.6
== END ==
PROVIDERS: Family Provider Nurse Practitioner Family; PCP Nurse Practitioner Family; Referring Provider Registered Nurse; Visit Provider Surgery
DX: L89.153 Pressure ulcer of sacral region, stage 3 (principal); L89.313 Pressure ulcer of right buttock, stage 3; L89.323 Pressure ulcer of left buttock, stage 3; E11.628 Type 2 diabetes mellitus with other skin complications; G81.90 Hemiplegia, unspecified affecting unspecified side; D64.9 Anemia, unspecified; I25.5 Ischemic cardiomyopathy
CPT/HCPCS: 11042; 99213

== ENCOUNTER → 2024-04-05 09:37 | Outpatient (CLI) | payer MEDICARE, MEDICAID, SELFPAY ==
[2023-11-23 13:32] VITALS: BMI 22.6
== END ==
PROVIDERS: Family Provider Nurse Practitioner Family; PCP Nurse Practitioner Family; Referring Provider Nurse Practitioner Family; Visit Provider Surgery
DX: L89.313 Pressure ulcer of right buttock, stage 3 (principal); L53.9 Erythematous condition, unspecified; R60.0 Localized edema; R21 Rash and other nonspecific skin eruption; R23.4 Changes in skin texture; E10.628 Type 1 diabetes mellitus with other skin complications; D64.9 Anemia, unspecified; I25.5 Ischemic cardiomyopathy; I73.9 Peripheral vascular disease, unspecified; M62.81 Muscle weakness (generalized); F17.210 Nicotine dependence, cigarettes, uncomplicated; L89.323 Pressure ulcer of left buttock, stage 3
CPT/HCPCS: 11042; 99213

== ENCOUNTER → 2024-04-19 10:50 | Outpatient (CLI) | payer MEDICARE, MEDICAID, SELFPAY ==
[2023-11-23 13:32] VITALS: BMI 22.6
== END ==
PROVIDERS: Family Provider Nurse Practitioner Family; PCP Nurse Practitioner Family; Referring Provider Nurse Practitioner Family; Visit Provider Surgery
DX: L89.313 Pressure ulcer of right buttock, stage 3 (principal); I69.359 Hemiplegia and hemiparesis following cerebral infarction affecting unspecified side; I10 Essential (primary) hypertension; I25.5 Ischemic cardiomyopathy; Z99.3 Dependence on wheelchair; Z89.611 Acquired absence of right leg above knee
CPT/HCPCS: 11042

== ENCOUNTER → 2024-05-10 12:04 | Outpatient (CLI) | payer MEDICARE, MEDICAID, SELFPAY ==
[2023-11-23 13:32] VITALS: BMI 22.6
== END ==
PROVIDERS: Family Provider Nurse Practitioner Family; PCP Nurse Practitioner Family; Referring Provider Nurse Practitioner Family; Visit Provider Surgery
DX: Z09 Encounter for follow-up examination after completed treatment for conditions other than malignant neoplasm (principal); Z87.2 Personal history of diseases of the skin and subcutaneous tissue; L89.313 Pressure ulcer of right buttock, stage 3
CPT/HCPCS: 99213

== ENCOUNTER → 2024-07-06 10:59 | Outpatient (CLI) | payer MEDICARE, MEDICAID, SELFPAY ==
[2023-11-23 13:32] VITALS: BMI 22.6
--- NOTE | 2024-07-06 | OV.WND_ITS ---
PROGRESS NOTE DETAILS PATIENT NAME: NEYDA MARCELO. PATIENT NUMBER: [id number] CLINICIAN: LEESA CASTILLO RN PATIENT DATE OF : 1955 PHYSICIAN / CORK WIRER: DORITA KUMAR PATIENT SUBJECTIVE CHIEF COMPLAINT THIS INFORMATION WAS OBTAINED FROM THE PATIENT. I HAVE PAIN OF 7 (OUT OF 10) GENERAL NOTES PRESSURE ULCER OF RIGHT BUTTOCK ALLERGIES AMITRIPTYLINE, CODEINE, POLLEN EXTRACTS, RYE GRASS HPI THIS INFORMATION WAS OBTAINED FROM THE PATIENT. THE FOLLOWING HPI ELEMENTS WERE DOCUMENTED FOR THE PATIENT'S WOUND: LOCATION: R BUTTOCK DURATION: 05/12/24 CONTEXT: PRESSURE THE PATIENT IS A 69 YEAR OLD MALE WITH TYPE 1 DIABETES MELLITUS, CVA, ISCHEMIC CARDIOMYOPATHY, AND PAD WHO WAS REFERRED BY MARKEL RODRIGUEZ FOR READMISSION TO THE WOUND CENTER FOR EVALUATION AND TREATMENT OF A PRESSURE ULCER ON THE RIGHT BUTTOCK. HE HAS BEEN RECEIVING DRESSING CHANGES WITH HYDROFERA BLUE AT THE ALF FACILITY WHERE HE RESIDES. HE REPORTS THAT THE ULCER IS PAINFUL AND OCCASIONALLY HAS SOME DRAINAGE. THE PATIENT DENIES HAVING ANY FEVER OR CHILLS. HE HAS A DECREASED APPETITE BUT IS TAKING PROTEIN SUPPLEMENTS. THE PATIENT REPORTS GOOD CONTROL OF HIS BLOOD SUGARS. THE PATIENT HAS BEEN USING A ROHO CUSHION IN HIS WHEELCHAIR. HE IS A CURRENT CIGARETTE SMOKER. HOSPITAL RECORDS WERE REVIEWED AND THERE ARE NO RECENT LABS, CULTURES, OR IMAGING STUDIES AVAILABLE. THE PATIENT WAS LAST SEEN AT THE WOUND CENTER MAY 10, 2024 AT WHICH TIME PRESSURE ULCERS OF THE SACRUM AND BOTH BUTTOCKS WERE NOTED TO BE HEALED. FAMILY HISTORY THIS INFORMATION WAS OBTAINED FROM THE PATIENT. CANCER- MOTHER HYPERTENSION- FATHER, SIBLING LUNG DISEASE- FATHER OTHER- SIBLING SOCIAL HISTORY THIS INFORMATION WAS OBTAINED FROM THE CHART, PATIENT. CURRENT EVERY DAY SMOKER: AGE 15 TO PRESENT 10/DAY ALCOHOL USE: ONCE/WEEK NEYDA MARCELO [id number] 1955 CAFFEINE USE: 3 PER DAY CHILDREN: 2 BOYS, LIVE IN [place] LIVES IN: ASSISTED LIVING- [facility] APR 2014 MARITAL STATUS: OCCUPATION: DISABLED- RETIRED FROM [employer] LACKING: BROTHER IN [place] UNABLE TO CARE FOR SELF: UNABLE TO BATHE SELF MEDICAL HISTORY THIS INFORMATION WAS OBTAINED FROM THE CHART, PATIENT. PATIENT HAS A MEDICAL HISTORY OF: TYPE 1 DIABETES ISCHEMIC CARDIOMYOPATHY HYPERTENSION CORONARY ARTERY DISEASE (CAD) PERIPHERAL VASCULAR DISEASE RENAL FAILURE (STAGE 3, STABLE.) STROKE (X3 IN 1998) GASTRO ESOPH. REFLUX DISEASE (GERD) ANXIETY HEMIPLEGIA HEMIPARESIS HYPOTHYROIDISM HYPERLIPIDEMIA ARTERIAL STENT (X6, 1 OBSTRUCTED (RLE)) RETINOPATHY MAJOR DEPRESSIVE DISORDER GASTRO ESOPH. REFLUX DISEASE (GERD) URINE RETENSION (OCTOBER 2020) SURGICAL HISTORY THIS INFORMATION WAS OBTAINED FROM THE CHART, PATIENT. 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 PAYAN) REVIEW OF SYSTEMS (ROS) THIS INFORMATION WAS OBTAINED FROM THE PATIENT. COMPLAINTS AND SYMPTOMS PATIENT COM PLAINS OF: NEYDA MARCELO [id number] 1955 GENERAL NOTES: I HAVE REVIEWED AND CONCUR WITH THE REVIEW OF SYSTEMS AND PAST FAMILY SOCIAL HISTORY DOCUMENTS COMPLETED BY THE CLINICIAN, I HAVE REVIEWED AND CONCUR WITH THE WOUND ASSESSMENT DOCUMENT COMPLETED BY THE CLINICIAN CARDIOVASCULAR (CENTRAL): DYSPNEA ON EXERTION CARDIOVASCULAR (CENTRAL/PERIPHERAL): LOWER EXTREMITY (LEG) SWELLING CO-MORBID CONDITIONS: DIABETES, NEUROPATHY , PERIPHERAL ARTERIAL DISEASE CONSTITUTIONAL SYMPTOMS (GENERAL HEALTH): FATIGUE INTEGUMENTARY (HAIR/SKIN/NAILS): OPEN SORE MUSCULOSKELETAL: ASSISTIVE DEVICES, MUSCLE WEAKNESS PRIOR WOUND HISTORY: DRAINAGE, ERYTHEMA, PAIN PATIENT DENIES COM PLAINTS OR SY M PTOM S RELATED TO: CARDIOVASCULAR (CENTRAL): CHEST PAIN, IRREGULAR HEART BEAT CARDIOVASCULAR (CENTRAL/PERIPHERAL): LOWER EXTREMITY (LEG) RESTING PAIN CONSTITUTIONAL SYMPTOMS (GENERAL HEALTH): CHILLS, FEVER, LOSS OF APPETITE EAR/NOSE/MOUTH/THROAT: HEARING LOSS / AID GASTROINTESTINAL (GI): STOMACH/ABDOMINAL PAIN HEMATOLOGIC/LYMPHATIC: BLEEDING / CLOTTING DISORDERS, BLEEDING TENDENCY NEUROLOGICAL: LOSS OF PROTECTIVE SENSATION PRIOR WOUND HISTORY: BLEEDING PSYCHIATRIC: MEMORY LOSS RESPIRATORY: COUGH, SHORTNESS OF BREATH OBJECTIVE VITALS HEIGHT/LENGTH: 66 IN (167.64 CM), WEIGHT: 145 LBS (65.91 KGS), BMI: 23.4, TEMPERATURE: 98.3 ?F (36.83 ?C), PULSE: 91 BPM, RESPIRATORY RATE: 16 BREATHS/MIN, BLOOD PRESSURE: 102/56 MMHG, PULSE OXIMETRY: 95 %. PHYSICAL EXAM CONSTITUTIONAL: VITAL SIGNS REVIEWED AND NOTED. GENERALIZED WEAKNESS. IN NO APPARENT DISTRESS. RESPIRATORY: EVEN RESPIRATIONS WITHOUT USE OF ACCESSORY MUSCLES. NO INTERCOASTAL RETRACTIONS NOTED. EVEN AND NON LABORED RESPIRATION. INTEGUMENTARY (HAIR, SKIN): NO ERYTHEMA. PERIWOUND TENDERNESS, NO SWELLING. SEE WOUND ASSESSMENT. SKIN WARM AND DRY. NO RASHES. NEUROLOGICAL: SENSATION: SYMMETRIC FUNCTION BY INFORMAL OBSERVATION. PSYCHIATRIC: ORIENTATION TO TIME, PLACE AND PERSON: NORMAL AFFECT WITH NORMAL THOUGHT PATTERN. ADDITIONAL INFORMATION THE PATIENT'S POTENTIAL TO HEAL IS: FAIR. WOUND ASSESSMENT(S) WOUND #19 RIGHT BUTTOCK IS A CHRONIC STAGE 3 PRESSURE INJURY PRESSURE ULCER ACQUIRED ON 05/12/2024 AND HAS RECEIVED A STATUS OF NOT HEALED. INITIAL WOUND ENCOUNTER MEASUREMENTS ARE 1.3CM LENGTH X 0.6CM WIDTH X 0.1 CM DEPTH, WITH AN AREA OF 0.78 SQ CM AND A VOLUME OF 0.078 CUBIC CM. ADIPOSE IS EXPOSED. NO TUNNELING HAS BEEN NOTED. NO SINUS TRACT HAS BEEN NOTED. NO UNDERMINING HAS BEEN NEYDA MARCELO [id number] 1955 NOTED. THERE IS A MODERATE AMOUNT OF SEROUS DRAINAGE NOTED WHICH HAS NO ODOR. THE PATIENT REPORTS A WOUND PAIN OF LEVEL 7/10. THE WOUND MARGIN IS ROLLED WOUND BED HAS NO, GRANULATION, YES SLOUGH, NO ESCHAR, NO EPITHELIALIZATION. THE PERIWOUND SKIN TEXTURE IS NORMAL. THE PERIWOUND SKIN MOISTURE IS NORMAL. THE PERIWOUND SKIN COLOR IS NORMAL. THE TEMPERATURE OF THE PERIWOUND SKIN IS WNL. PERIWOUND SKIN DOES NOT EXHIBIT SIGNS OR SYMPTOMS OF INFECTION. ADDITIONAL INFORMATION OTHER DEVITALIZED TISSUE PRESENT: BIOFILM ASSESSMENT ACTIVE PROBLEMS ICD-10 (ENCOUNTER DIAGNOSIS) L89.313 - PRESSURE ULCER OF RIGHT BUTTOCK, STAGE 3 (ENCOUNTER DIAGNOSIS) E10.622 - TYPE 1 DIABETES MELLITUS WITH OTHER SKIN ULCER GENERAL NOTES STAGE III PRESSURE ULCER RIGHT BUTTOCK THE FOLLOWING FACTORS HAVE BEEN IDENTIFIED THAT MAY AFFECT WOUND HEALING: DEVITALIZED TISSUE BIOBURDEN ONGOING PRESSURE DIABETES HEMIPLEGIA ISCHEMIC CARDIOMYOPATHY ANEMIA GOALS: REMOVE DEVITALIZED TISSUE REMOVE AND PREVENT BIOFILM PRESSURE OFFLOADING PROTEIN SUPPLEMENTATION PREVENT INFECTION WOUND CLOSURE PREVENT RECURRENCE PLAN: DEBRIDEMENT, START DRESSING CHANGES WITH SILVER COLLAGEN, CONTINUE PRESSURE OFFLOADING AND PROTEIN SUPPLEMENTATION, FOLLOW UP IN 1 WEEK FOR A RECHECK. PROCEDURES WOUND #19 WOUND #19 (PRESSURE ULCER) IS LOCATED ON THE RIGHT BUTTOCK. A SKIN/SUBCUTANEOUS TISSUE LEVEL SURGICAL DEBRIDEMENT WITH A TOTAL AREA DEBRIDED OF 0.78 SQ CM. WAS PERFORMED BY DORITA KUMAR MD. SUBCUTANEOUS WAS REMOVED ALONG WITH DEVITALIZED TISSUE: BIOFILM, EXUDATE AND SLOUGH. THE FOLLOWING INSTRUMENT(S) WERE USED: CURETTE. PAIN CONTROL WAS ACHIEVED USING EMLA LIDOCAINE/PRILOCAINE 2.5%/2.5%. A TIME OUT WAS CONDUCTED PRIOR TO THE START OF THE PROCEDURE. A MODERATE AMOUNT OF BLEEDING WAS CONTROLLED WITH SILVER NITRATE. THE PROCEDURE WAS TOLERATED WELL WITH A PAIN LEVEL OF 0 THROUGHOUT AND A PAIN LEVEL OF 0 FOLLOWING THE PROCEDURE. POST DEBRIDEMENT MEASUREMENTS: 1.3CM LENGTH X 0.6CM WIDTH X 0.2CM DEPTH; WITH AN AREA OF 0.78 SQ CM AND A VOLUME OF 0.156 CUBIC CM. ADDITIONAL INFORMATION NEYDA MARCELO [id number] 1955 MUSCLE FASCIA OR BONE REMOVED AND SENT TO PATHOLOGY?: NO PLAN ADDITIONAL ORDERS: HAND HYGIENE HAND HYGIENE - WASH HANDS BEFORE AND AFTER WOUND CARE. CALL THE WOUND CENTER AT [phone] IF YOU HAVE SIGNS OR SYMPTOMS OF INFECTION, FEVER CHILLS OR SHAKES, INCREASED DRAINAGE, INCREASED ODOR OR UNUSUAL REDNESS. AFTER WOUND CENTER HOURS PLEASE NOTIFY YOUR PCP OR GO TO THE EMERGENCY ROOM. CLEANSER CLEANSE WOUND WITH NORMAL SALINE MAY SHOWER, LEAVE WOUND DRESSING INTACT. COVER WOUND DRESSING WITH A WATERPROOF BARRIER. KEEP DRESSING DRY. NO BATHS PLEASE. PROCEDURE / ANESTHETIC 4% TOPICAL LIDOCAINE TO WOUND BED PRIOR TO PROCEDURE, IN CLINIC ONLY. DRESSING ORDERS APPLY DRESSING(S) AND SECURE WITH: - PURACOL PLUS AG SILVER COLLAGEN, SILICONE BORDER FOAM DRESSING CHANGE FREQUENCY CHANGE DRESSING EVERY OTHER DAY. OFF-LOADING / PRESSURE RELIEF WHEELCHAIR CUSHION. - WHEELCHAIR CUSHION AND ROHO CUSHION USED. SEAT LIFTS OR SHIFT POSITION IN CHAIR EVERY 15 MINUTES. TURN EVERY 2 HOURS. AVOID POSITION DIRECTING PRESSURE TO WOUND SITE. LIMIT SIDE LYING TO 30 DEGREE TILT. LIMIT HOB ELEVATION TO 30 DEGREES IN BED. DIETARY TAKE VITAMIN C 1000MG BY MOUTH DAILY. TAKE ZINC 25MG BY MOUTH DAILY. INCREASE THE PROTEIN IN YOUR DIET. FOLLOW-UP APPOINTMENTS RETURN APPOINTMENT 1 WEEK OTHER ORDERS: - [facility], PLEASE CHANGE DRESSINGS THREE TIMES A WEEK INSTRUCTED ABOVE. THANK YOU. SCRIBING ATTESTATION I ATTEST, THE NURSE, THAT I SCRIBED THESE ORDERS FOR THE WOUND CARE PROVIDER. PROVIDER REVIEW AND ATTESTATION: REVIEWED HOSPITAL RECORDS. DISCUSSED THE PLAN OF CARE @ BEDSIDE WITH - THE PATIENT SMOKING CESSATION WAS ENCOURAGED. I AGREE AND ATTEST TO THE ABOVE INFORMATION PROVIDED FROM OTHER LICENSED PROFESSIONALS. PLAN OF CARE: 01. ENSURE/ESTABLISH OPTIMAL BLOOD FLOW : - COMPLETE LOWER EXTREMITY ASSESSMENT STATUS: COMPLETED DATE: 07/06/2024 02. ASSESS FOR/TREAT INFECTION : - EVALUATE FOR SIGNS AND SYMPTOMS OF INFECTION AND DOCUMENT FINDINGS. STATUS: INITIATED DATE: 07/06/2024 - OBTAIN CULTURE AND SENSITIVITY (CANDS) OR TISSUE CULTURE WHEN INFECTION IS SUSPECTED. (NOTE:) CONSIDER REPEATING WHEN WOUND HEALING <40% AFTER 30 DAYS OF WOUND CARE. STATUS: INITIATED DATE: 07/06/2024 03. DEBRIDE WEEKLY OR MORE OFTEN PRN : - EVALUATE PATIENT IN CENTER WEEKLY TO ASSESS WOUND BED AND MARGINS FOR NEED FOR DEBRIDEMENT. STATUS: INITIATED DATE: 07/06/2024 - DEBRIDEMENT BY ANY METHOD TO REMOVE DEVITALIZED/NECROTIC TISSUE TO PROMOTE HEALING AND PREVENT FURTHER COMPLICATIONS. GOAL IS TO STIMULATE AND/OR MAINTAIN ACUTE PHASE OF WOUND HEALING BY REDUCING NEYDA MARCELO [id number] 1955 BACTERIAL BURDEN AND DEVITALIZED/NON-VIABLE TISSUE. STATUS: INITIATED DATE: 07/06/2024 04. OPTIMIZE GLUCOSE CONTROL AND NUTRITION : - COMPLETE A NUTRITION RISK ASSESSMENT. STATUS: COMPLETED DATE: 07/06/2024 05. OFFLOADING PLAN : - EVALUATE PLAN FOR OFFLOADING STATUS: COMPLETED DATE: 07/06/2024 - PROVIDE EDUCATION MATERIALS/DISCUSS OFFLOADING STRATEGIES APPROPRIATE. - WHEELCHAIR CUSHION AND ROHO CUSHION STATUS: INITIATED DATE: 07/06/2024 06. OPTIMIZE HOST FACTORS: - ASSESS AND REVIEW PATIENT HISTORY FOR WOUND ETIOLOGY, CO-MORBID CONDITIONS, MEDICATION REGIME, AND SMOKING HISTORY. STATUS: INITIATED DATE: 07/06/2024 07. DRESSING SELECTION : - EVALUATE FOR DRESSING-RELATED FACTORS, SUCH AVAILABILITY, WEAR TIME, ADAPTABILITY AND USE TO BETTER OPTIMIZE WOUND HEALING AND PATIENT COMPLIANCE. STATUS: INITIATED DATE: 07/06/2024 - CHOOSE TOPICAL TREATMENTS AND/OR DRESSING BASED ON WOUND TYPE AND APPEARANCE, PERIWOUND SKIN CONDITION, WOUND SIZE AND DEPTH, ANATOMIC LOCATION, VOLUME OF EXUDATE, EDEMA IN THE LOWER EXTREMITIES, AND RISK OR PRESENCE OF INFECTION. STATUS: INITIATED DATE: 07/06/2024 08. ADVANCED MODALITIES : - REVIEWED, NOT APPLICABLE 09. FALL PREVENTION : - COMPLETE FALL ASSESSMENT. STATUS: COMPLETED DATE: 07/06/2024 10. PAIN MANAGEMENT : - COMPLETE PAIN ASSESSMENT STATUS: COMPLETED DATE: 07/06/2024 11. MEASURABLE GOALS FOR WOUND HEALING AND/OR HYPERBARIC OXYGEN THERAPY : - LESS DRAINAGE STATUS: INITIATED DATE: 07/06/2024 - DECREASE PAIN STATUS: INITIATED DATE: 07/06/2024 - DECREASE WOUND DIMENSIONS STATUS: INITIATED DATE: 07/06/2024 - WOUND CLOSURE STATUS: INITIATED DATE: 07/06/2024 12. DURATION/FREQUENCY OF WOUND CARE VISITS : - 1X WEEKLY FOR 30 DAYS STATUS: INITIATED DATE: 07/06/2024 ELECTRONIC SIGNATURE(S) SIGNED BY: DATE: DORITA KUMAR MD 07/06/2024 15:47:55 (PT) NEYDA MARCELO [id number] 1955 ENTERED BY: DORITA KUMAR MD ON 07/06/2024 15:41:04 (PT) NEYDA MARCELO [id number] 1955
== END ==
PROVIDERS: Family Provider Nurse Practitioner Family; PCP Nurse Practitioner Family; Referring Provider Registered Nurse; Visit Provider Surgery
DX: E10.628 Type 1 diabetes mellitus with other skin complications (principal); L89.313 Pressure ulcer of right buttock, stage 3
CPT/HCPCS: 11042; 99213

== ENCOUNTER → 2024-07-13 13:26 | Outpatient (CLI) | payer MEDICARE, MEDICAID, SELFPAY ==
[2023-11-23 13:32] VITALS: BMI 22.6
== END ==
LOC: WC 13:33
PROVIDERS: Family Provider Nurse Practitioner Family; PCP Nurse Practitioner Family; Referring Provider Nurse Practitioner Family; Visit Provider Surgery
DX: L89.313 Pressure ulcer of right buttock, stage 3 (principal); E10.628 Type 1 diabetes mellitus with other skin complications; G81.90 Hemiplegia, unspecified affecting unspecified side; D64.9 Anemia, unspecified; I25.5 Ischemic cardiomyopathy
CPT/HCPCS: 11042

== ENCOUNTER → 2024-07-27 10:55 | Outpatient (CLI) | payer MEDICARE, MEDICAID, SELFPAY ==
[2023-11-23 13:32] VITALS: BMI 22.6
--- NOTE | 2024-07-27 | OV.WND_ITS ---
PROGRESS NOTE DETAILS PATIENT NAME: NEYDA MARCELO. PATIENT NUMBER: [id number] CLINICIAN: SADAF CONTRERAS R.N. PATIENT DATE OF : 1955 PHYSICIAN / FLOWER PLANTER: DORITA KUMAR PATIENT SUBJECTIVE CHIEF COMPLAINT THIS INFORMATION WAS OBTAINED FROM THE PATIENT. THE BANDAGE CAME OFF LAST NIGHT, IT FEELS SORE. GENERAL NOTES RIGHT BUTTOCK PRESSURE ULCER. ALLERGIES AMITRIPTYLINE, CODEINE, POLLEN EXTRACTS, RYE GRASS HPI THIS INFORMATION WAS OBTAINED FROM THE PATIENT. THE FOLLOWING HPI ELEMENTS WERE DOCUMENTED FOR THE PATIENT'S WOUND: LOCATION: R BUTTOCK DURATION: 05/12/24 CONTEXT: PRESSURE THE PATIENT IS A 69 YEAR OLD MALE WITH TYPE 1 DIABETES MELLITUS, CVA, ISCHEMIC CARDIOMYOPATHY, AND PAD WHO RETURNS TODAY FOR FOLLOW UP OF A PRESSURE ULCER ON THE RIGHT BUTTOCK. HE HAS BEEN RECEIVING DRESSING CHANGES WITH SILVER COLLAGEN AT THE [facility] FACILITY WHERE HE RESIDES HOWEVER HE DID NOT HAVE A DRESSING IN PLACE WHEN HE CAME INTO CLINIC TODAY. HE REPORTS THAT THE ULCER IS STILL PAINFUL. THE PATIENT DENIES HAVING ANY FEVER OR CHILLS. HE HAS A DECREASED APPETITE BUT IS TAKING PROTEIN SUPPLEMENTS. THE PATIENT REPORTS GOOD CONTROL OF HIS BLOOD SUGARS. THE PATIENT HAS BEEN USING A ROHO CUSHION IN HIS WHEELCHAIR. HE IS A CURRENT CIGARETTE SMOKER. HOSPITAL RECORDS WERE REVIEWED AND THERE ARE NO RECENT LABS, CULTURES, OR IMAGING STUDIES AVAILABLE. ON EXAM TODAY THE ULCER HAS SLIGHTLY IMPROVED MEASUREMENTS BUT THERE IS A NEW SATELLITE ULCER, NO SIGN OF INFECTION. MEDICAL HISTORY THIS INFORMATION WAS OBTAINED FROM THE CHART, PATIENT. PATIENT HAS A MEDICAL HISTORY OF: TYPE 1 DIABETES ISCHEMIC CARDIOMYOPATHY HYPERTENSION CORONARY ARTERY DISEASE (CAD) PERIPHERAL VASCULAR DISEASE RENAL FAILURE (STAGE 3, STABLE.) STROKE (X3 IN 1998) GASTRO ESOPH. REFLUX DISEASE (GERD) NEYDA MARCELO [id number] 1955 ANXIETY HEMIPLEGIA HEMIPARESIS HYPOTHYROIDISM HYPERLIPIDEMIA ARTERIAL STENT (X6, 1 OBSTRUCTED (RLE)) RETINOPATHY MAJOR DEPRESSIVE DISORDER GASTRO ESOPH. REFLUX DISEASE (GERD) URINE RETENSION (OCTOBER 2020) SURGICAL HISTORY THIS INFORMATION WAS OBTAINED FROM THE CHART, PATIENT. 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 PAYAN) OBJECTIVE VITALS HEIGHT/LENGTH: 66 IN (167.64 CM), WEIGHT: 145 LBS (65.91 KGS), BMI: 23.4, TEMPERATURE: 98.0 ?F (36.67 ?C), PULSE: 83 BPM, RESPIRATORY RATE: 18 BREATHS/MIN, BLOOD PRESSURE: 139/71 MMHG, PULSE OXIMETRY: 97 %. PHYSICAL EXAM CONSTITUTIONAL: VITAL SIGNS REVIEWED AND NOTED. GENERALIZED WEAKNESS. IN NO APPARENT DISTRESS. RESPIRATORY: EVEN RESPIRATIONS WITHOUT USE OF ACCESSORY MUSCLES. NO INTERCOASTAL RETRACTIONS NOTED. EVEN AND NON LABORED RESPIRATION. INTEGUMENTARY (HAIR, SKIN): NO ERYTHEMA. PERIWOUND TENDERNESS. SEE WOUND ASSESSMENT. SKIN WARM AND DRY. NO RASHES. NEUROLOGICAL: SENSATION: SYMMETRIC FUNCTION BY INFORMAL OBSERVATION. PSYCHIATRIC: ORIENTATION TO TIME, PLACE AND PERSON: NORMAL AFFECT WITH NORMAL THOUGHT PATTERN. ADDITIONAL INFORMATION THE PATIENT'S POTENTIAL TO HEAL IS: FAIR. WOUND ASSESSMENT(S) WOUND #19 RIGHT BUTTOCK IS A CHRONIC STAGE 3 PRESSURE INJURY PRESSURE ULCER ACQUIRED ON 05/12/2024 AND HAS RECEIVED A STATUS OF NOT HEALED. INITIAL WOUND ENCOUNTER MEASUREMENTS ARE 1CM LENGTH X 0.5CM WIDTH X 0.2 CM DEPTH, WITH AN AREA OF 0.5 SQ CM AND A VOLUME OF 0.1 CUBIC CM.INITIAL WOUND ENCOUNTER PREVIOUS MEASUREMENTS FROM 07/13/2024 ARE 1.2CM LENGTH X 0.5CM WIDTH X 0.1CM DEPTH, NEYDA MARCELO [id number] 1955 WITH AN AREA OF 0.6 SQ CM AND A VOLUME OF 0.06 CUBIC CM. ADIPOSE IS EXPOSED. NO TUNNELING HAS BEEN NOTED. NO SINUS TRACT HAS BEEN NOTED. NO UNDERMINING HAS BEEN NOTED. THERE IS A SMALL AMOUNT OF SEROUS DRAINAGE NOTED WHICH HAS NO ODOR. THE PATIENT REPORTS A WOUND PAIN OF LEVEL 7/10. THE WOUND MARGIN IS ROLLED WOUND BED HAS YES, PINK, FIRM, GRANULATION, YES SLOUGH, NO ESCHAR, YES EPITHELIALIZATION. THE PERIWOUND SKIN EXHIBITED ERYTHEMA. THE PERIWOUND SKIN DID NOT EXHIBIT BRAWNY INDURATION, EDEMA, EXCORIATION, INDURATION, CALLUS, CREPITUS, FLUCTUANCE, RASH, MACERATION, ATROPHIE ELSA, CYANOSIS, ECCHYMOSIS, HEMOSIDEROSIS, PALLOR AND RUBOR. THE PERIWOUND SKIN WAS NOT FRIABLE, DRY/SCALY AND MOIST. THE TEMPERATURE OF THE PERIWOUND SKIN IS WNL. PERIWOUND SKIN DOES NOT EXHIBIT SIGNS OR SYMPTOMS OF INFECTION. LOCAL PULSE IS N/A. GENERAL NOTES SATELLITE ULCER: 0.4 X 0.3 X 0.2CM ADDITIONAL INFORMATION OTHER DEVITALIZED TISSUE PRESENT: BIOFILM ASSESSMENT ACTIVE PROBLEMS ICD-10 (ENCOUNTER DIAGNOSIS) L89.313 - PRESSURE ULCER OF RIGHT BUTTOCK, STAGE 3 (ENCOUNTER DIAGNOSIS) E10.622 - TYPE 1 DIABETES MELLITUS WITH OTHER SKIN ULCER GENERAL NOTES STAGE III PRESSURE ULCER RIGHT BUTTOCK IMPROVED, NEW SATELLITE ULCER THE FOLLOWING FACTORS HAVE BEEN IDENTIFIED THAT MAY AFFECT WOUND HEALING: DEVITALIZED TISSUE BIOBURDEN ONGOING PRESSURE DIABETES HEMIPLEGIA ISCHEMIC CARDIOMYOPATHY ANEMIA GOALS: REMOVE DEVITALIZED TISSUE REMOVE AND PREVENT BIOFILM PRESSURE OFFLOADING PROTEIN SUPPLEMENTATION PREVENT INFECTION WOUND CLOSURE PREVENT RECURRENCE PLAN: DEBRIDEMENT, CONTINUE DRESSING CHANGES WITH SILVER COLLAGEN, CONTINUE PRESSURE OFFLOADING AND PROTEIN SUPPLEMENTATION, FOLLOW UP IN 2 WEEKS FOR A RECHECK. PROCEDURES WOUND #19 WOUND #19 (PRESSURE ULCER) IS LOCATED ON THE RIGHT BUTTOCK. A SKIN/SUBCUTANEOUS TISSUE LEVEL SURGICAL DEBRIDEMENT WITH A TOTAL AREA DEBRIDED OF 0.5 SQ CM. WAS PERFORMED BY DORITA KUMAR MD. SUBCUTANEOUS WAS REMOVED ALONG WITH DEVITALIZED TISSUE: BIOFILM, EXUDATE AND SLOUGH. THE FOLLOWING NEYDA MARCELO [id number] 1955 INSTRUMENT(S) WERE USED: CURETTE. PAIN CONTROL WAS ACHIEVED USING EMLA LIDOCAINE/PRILOCAINE 2.5%/2.5%. A TIME OUT WAS CONDUCTED PRIOR TO THE START OF THE PROCEDURE. A MODERATE AMOUNT OF BLEEDING WAS CONTROLLED WITH SILVER NITRATE. THE PROCEDURE WAS TOLERATED WELL WITH A PAIN LEVEL OF 0 THROUGHOUT AND A PAIN LEVEL OF 0 FOLLOWING THE PROCEDURE. POST DEBRIDEMENT MEASUREMENTS: 1CM LENGTH X 0.5CM WIDTH X 0.3CM DEPTH; WITH AN AREA OF 0.5 SQ CM AND A VOLUME OF 0.15 CUBIC CM. ADDITIONAL INFORMATION MUSCLE FASCIA OR BONE REMOVED AND SENT TO PATHOLOGY?: NO PLAN WOUND ORDERS: WOUND #19 RIGHT BUTTOCK HAND HYGIENE HAND HYGIENE - WASH HANDS BEFORE AND AFTER WOUND CARE. CALL THE WOUND CENTER AT [phone] IF YOU HAVE SIGNS OR SYMPTOMS OF INFECTION, FEVER CHILLS OR SHAKES, INCREASED DRAINAGE, INCREASED ODOR OR UNUSUAL REDNESS. AFTER WOUND CENTER HOURS PLEASE NOTIFY YOUR PCP OR GO TO THE EMERGENCY ROOM. CLEANSER CLEANSE WOUND WITH NORMAL SALINE MAY SHOWER, LEAVE WOUND DRESSING INTACT. COVER WOUND DRESSING WITH A WATERPROOF BARRIER. KEEP DRESSING DRY. NO BATHS PLEASE. PROCEDURE / ANESTHETIC 4% TOPICAL LIDOCAINE TO WOUND BED PRIOR TO PROCEDURE, IN CLINIC ONLY. DRESSING ORDERS APPLY DRESSING(S) AND SECURE WITH: - PURACOL PLUS AG SILVER COLLAGEN MOISTENED WITH NORMAL SALINE OR DISTILLED WATER, SILICONE BORDER FOAM. ADDITIONAL ORDERS: DRESSING CHANGE FREQUENCY CHANGE DRESSING EVERY OTHER DAY. CHANGE DRESSING IF IT BECOMES SOILED OR WET. - [employer] STAFF: IF DRESSING FALLS OFF, PLEASE COVER WITH A BORDERED FOAM UNTIL HOME HEALTH CAN SEE PATIENT. THANK YOU. OFF-LOADING / PRESSURE RELIEF WHEELCHAIR CUSHION. - WHEELCHAIR CUSHION AND ROHO CUSHION USED. SEAT LIFTS OR SHIFT POSITION IN CHAIR EVERY 15 MINUTES. TURN EVERY 2 HOURS. AVOID POSITION DIRECTING PRESSURE TO WOUND SITE. LIMIT SIDE LYING TO 30 DEGREE TILT. LIMIT HOB ELEVATION TO 30 DEGREES IN BED. DIETARY TAKE VITAMIN C 1000MG BY MOUTH DAILY. TAKE ZINC 25MG BY MOUTH DAILY. INCREASE THE PROTEIN IN YOUR DIET. HOME HEALTH HOME [facility]ARE: IF YOU HAVE ANY QUESTIONS OR CONCERNS PLEASE CONTACT THE WOUND CENTER. - [facility]: PLEASE SEE PATIENT THREE TIMES PER WEEK FOR DRESSING CHANGES, INSTRUCTED ABOVE. THANK YOU. FOLLOW-UP APPOINTMENTS RETURN APPOINTMENT 1 WEEK SCRIBING ATTESTATION I ATTEST, THE NURSE, THAT I SCRIBED THESE ORDERS FOR THE WOUND CARE PROVIDER. PROVIDER REVIEW AND ATTESTATION: REVIEWED HOSPITAL RECORDS. DISCUSSED THE PLAN OF CARE @ BEDSIDE WITH - THE PATIENT SMOKING CESSATION WAS ENCOURAGED. I AGREE AND ATTEST TO THE ABOVE INFORMATION PROVIDED FROM OTHER LICENSED PROFESSIONALS. PLAN OF CARE: 01. ENSURE/ESTABLISH OPTIMAL BLOOD FLOW : NEYDA MARCELO [id number] 1955 - COMPLETE LOWER EXTREMITY ASSESSMENT STATUS: COMPLETED DATE: 07/06/2024 02. ASSESS FOR/TREAT INFECTION : - EVALUATE FOR SIGNS AND SYMPTOMS OF INFECTION AND DOCUMENT FINDINGS. STATUS: CONTINUED DATE: 07/27/2024 - OBTAIN CULTURE AND SENSITIVITY (CANDS) OR TISSUE CULTURE WHEN INFECTION IS SUSPECTED. (NOTE:) CONSIDER REPEATING WHEN WOUND HEALING <40% AFTER 30 DAYS OF WOUND CARE. STATUS: CONTINUED DATE: 07/27/2024 03. DEBRIDE WEEKLY OR MORE OFTEN PRN : - EVALUATE PATIENT IN CENTER WEEKLY TO ASSESS WOUND BED AND MARGINS FOR NEED FOR DEBRIDEMENT. STATUS: CONTINUED DATE: 07/27/2024 - DEBRIDEMENT BY ANY METHOD TO REMOVE DEVITALIZED/NECROTIC TISSUE TO PROMOTE HEALING AND PREVENT FURTHER COMPLICATIONS. GOAL IS TO STIMULATE AND/OR MAINTAIN ACUTE PHASE OF WOUND HEALING BY REDUCING BACTERIAL BURDEN AND DEVITALIZED/NON-VIABLE TISSUE. STATUS: CONTINUED DATE: 07/27/2024 04. OPTIMIZE GLUCOSE CONTROL AND NUTRITION : - COMPLETE A NUTRITION RISK ASSESSMENT. STATUS: COMPLETED DATE: 07/06/2024 05. OFFLOADING PLAN : - EVALUATE PLAN FOR OFFLOADING STATUS: COMPLETED DATE: 07/06/2024 - PROVIDE EDUCATION MATERIALS/DISCUSS OFFLOADING STRATEGIES APPROPRIATE. - WHEELCHAIR CUSHION AND ROHO CUSHION STATUS: CONTINUED DATE: 07/27/2024 06. OPTIMIZE HOST FACTORS: - ASSESS AND REVIEW PATIENT HISTORY FOR WOUND ETIOLOGY, CO-MORBID CONDITIONS, MEDICATION REGIME, AND SMOKING HISTORY. STATUS: CONTINUED DATE: 07/27/2024 07. DRESSING SELECTION : - EVALUATE FOR DRESSING-RELATED FACTORS, SUCH AVAILABILITY, WEAR TIME, ADAPTABILITY AND USE TO BETTER OPTIMIZE WOUND HEALING AND PATIENT COMPLIANCE. STATUS: CONTINUED DATE: 07/27/2024 - CHOOSE TOPICAL TREATMENTS AND/OR DRESSING BASED ON WOUND TYPE AND APPEARANCE, PERIWOUND SKIN CONDITION, WOUND SIZE AND DEPTH, ANATOMIC LOCATION, VOLUME OF EXUDATE, EDEMA IN THE LOWER EXTREMITIES, AND RISK OR PRESENCE OF INFECTION. STATUS: CONTINUED DATE: 07/27/2024 08. ADVANCED MODALITIES : - REVIEWED, NOT APPLICABLE 09. FALL PREVENTION : - COMPLETE FALL ASSESSMENT. STATUS: COMPLETED DATE: 07/06/2024 10. PAIN MANAGEMENT : - COMPLETE PAIN ASSESSMENT STATUS: COMPLETED DATE: 07/06/2024 11. MEASURABLE GOALS FOR WOUND HEALING AND/OR HYPERBARIC OXYGEN THERAPY : - LESS DRAINAGE STATUS: CONTINUED DATE: 07/27/2024 - DECREASE PAIN STATUS: CONTINUED DATE: 07/27/2024 - DECREASE WOUND DIMENSIONS STATUS: CONTINUED DATE: 07/27/2024 NEYDA MARCELO [id number] 1955 - WOUND CLOSURE STATUS: CONTINUED DATE: 07/27/2024 12. DURATION/FREQUENCY OF WOUND CARE VISITS : - 1X WEEKLY FOR 30 DAYS STATUS: CONTINUED DATE: 07/27/2024 ELECTRONIC SIGNATURE(S) SIGNED BY: DATE: DORITA KUMAR MD 07/27/2024 12:55:37 (PT) ENTERED BY: DORITA KUMAR MD ON 07/27/2024 12:43:01 (PT) NEYDA MARCELO [id number] 1955
== END ==
PROVIDERS: Family Provider Nurse Practitioner Family; PCP Nurse Practitioner Family; Referring Provider Registered Nurse; Visit Provider Surgery
DX: L89.313 Pressure ulcer of right buttock, stage 3 (principal); E10.622 Type 1 diabetes mellitus with other skin ulcer; L53.8 Other specified erythematous conditions; I73.9 Peripheral vascular disease, unspecified
CPT/HCPCS: 11042

== ENCOUNTER → 2024-08-03 10:15 | Outpatient (CLI) | payer MEDICARE, MEDICAID, SELFPAY ==
[2023-11-23 13:32] VITALS: BMI 22.6
== END ==
PROVIDERS: Family Provider Nurse Practitioner Family; PCP Nurse Practitioner Family; Referring Provider Nurse Practitioner Family; Visit Provider Surgery
DX: L89.313 Pressure ulcer of right buttock, stage 3 (principal); L53.9 Erythematous condition, unspecified; E11.628 Type 2 diabetes mellitus with other skin complications; I25.5 Ischemic cardiomyopathy; G81.90 Hemiplegia, unspecified affecting unspecified side; D64.9 Anemia, unspecified; I73.9 Peripheral vascular disease, unspecified; F17.210 Nicotine dependence, cigarettes, uncomplicated
CPT/HCPCS: 11042; 99213

== ENCOUNTER → 2024-08-17 10:02 | Outpatient (CLI) | payer MEDICARE, MEDICAID, SELFPAY ==
[2023-11-23 13:32] VITALS: BMI 22.6
== END ==
PROVIDERS: Family Provider Nurse Practitioner Family; PCP Nurse Practitioner Family; Referring Provider Nurse Practitioner Family; Visit Provider Surgery
DX: L89.313 Pressure ulcer of right buttock, stage 3 (principal); L89.892 Pressure ulcer of other site, stage 2; E10.628 Type 1 diabetes mellitus with other skin complications; I73.9 Peripheral vascular disease, unspecified; Z89.511 Acquired absence of right leg below knee
CPT/HCPCS: 97602; 99213

== ENCOUNTER → 2024-08-31 10:18 | Outpatient (CLI) | payer MEDICARE, MEDICAID, SELFPAY ==
[2023-11-23 13:32] VITALS: BMI 22.6
== END ==
LOC: WC 10:19
PROVIDERS: Family Provider Nurse Practitioner Family; PCP Nurse Practitioner Family; Referring Provider Nurse Practitioner Family; Visit Provider Surgery
DX: E10.628 Type 1 diabetes mellitus with other skin complications (principal); L89.313 Pressure ulcer of right buttock, stage 3; Z87.2 Personal history of diseases of the skin and subcutaneous tissue; I73.9 Peripheral vascular disease, unspecified; F17.210 Nicotine dependence, cigarettes, uncomplicated; Z86.73 Personal history of transient ischemic attack (TIA), and cerebral infarction without residual deficits
CPT/HCPCS: 11042; 99213

== ENCOUNTER → 2024-09-13 10:05 | Outpatient (CLI) | payer MEDICARE, MEDICAID, SELFPAY ==
[2023-11-23 13:32] VITALS: BMI 22.6
== END ==
LOC: WC 10:09
PROVIDERS: Family Provider Nurse Practitioner Family; PCP Nurse Practitioner Family; Referring Provider Nurse Practitioner Family; Visit Provider Surgery
DX: E10.628 Type 1 diabetes mellitus with other skin complications (principal); L89.313 Pressure ulcer of right buttock, stage 3
CPT/HCPCS: 11042

== ENCOUNTER → 2024-09-28 10:13 | Outpatient (CLI) | payer MEDICARE, MEDICAID, SELFPAY ==
[2023-11-23 13:32] VITALS: BMI 22.6
== END ==
PROVIDERS: Family Provider Nurse Practitioner Family; PCP Nurse Practitioner Family; Referring Provider Nurse Practitioner Family; Visit Provider Surgery
DX: E10.628 Type 1 diabetes mellitus with other skin complications (principal); L89.313 Pressure ulcer of right buttock, stage 3; I73.9 Peripheral vascular disease, unspecified; G81.90 Hemiplegia, unspecified affecting unspecified side
CPT/HCPCS: 11042; 99213

== ENCOUNTER → 2024-10-12 11:27 | Outpatient (CLI) | payer MEDICARE, MEDICAID, SELFPAY ==
[2023-11-23 13:32] VITALS: BMI 22.6
== END ==
LOC: WC 11:28
PROVIDERS: Family Provider Nurse Practitioner Family; PCP Nurse Practitioner Family; Referring Provider Nurse Practitioner Family; Visit Provider Surgery
DX: E10.628 Type 1 diabetes mellitus with other skin complications (principal); L89.313 Pressure ulcer of right buttock, stage 3; L89.322 Pressure ulcer of left buttock, stage 2; I73.9 Peripheral vascular disease, unspecified
CPT/HCPCS: 11042; 97602; 99213

== ENCOUNTER → 2024-10-26 14:01 | Outpatient (CLI) | payer MEDICARE, MEDICAID, SELFPAY ==
[2023-11-23 13:32] VITALS: BMI 22.6
== END ==
PROVIDERS: Family Provider Nurse Practitioner Family; PCP Nurse Practitioner Family; Referring Provider Nurse Practitioner Family; Visit Provider Surgery
DX: Z87.2 Personal history of diseases of the skin and subcutaneous tissue (principal)
CPT/HCPCS: 99213

== ENCOUNTER → 2024-11-01 06:08 | Outpatient (ROUT) | payer MEDICARE, MEDICAID, SELFPAY ==
[2023-11-23 13:32] VITALS: BMI 22.6
[2024-11-01 08:01] LABS: Hemoglobin A1C% w Est Avg Glu 6.8 % (4.0-6.0)
[2024-11-01 08:19] LABS: Blood Urea Nitrogen 27 mg/dL (9-20); Calcium 8.9 mg/dL (8.4-10.2); Carbon Dioxide 30 mmol/L (22-32); Chloride 97 mmol/L (98-107); Cholesterol 119 mg/dL (140-199); Estimated Glomerular Filt Rate > 60 mL/min (>60); Glucose 161 mg/dL (70-99); HDL Cholesterol 30 mg/dL (40-60); HEMOLYSIS < 15 (0-50); Magnesium 2.0 mg/dL (1.6-2.3); Potassium 4.4 mmol/L (3.4-5.1); Sodium 133 mmol/L (137-145); Triglycerides 129 mg/dL (35-150)
== END ==
PROVIDERS: Registered Nurse; Family Provider Nurse Practitioner Family; PCP Nurse Practitioner Family
DX: I50.9 Heart failure, unspecified (principal); E11.9 Type 2 diabetes mellitus without complications; E78.5 Hyperlipidemia, unspecified
CPT/HCPCS: 36415; 80048; 80061; 83036; 83735

== ENCOUNTER 2024-12-03 09:21 | Inpatient (IN) | payer MEDICARE, MEDICAID, SELFPAY ==
[2023-11-23 13:32] VITALS: BMI 22.6
[2024-12-03] VITALS (10 sets, daily range): BP systolic 136–177; BP diastolic 64–89; PULSE 91–116; RESP 16–24; TEMP 36.4–37.3; O2SAT 90–95; BMI 23.6; BMI 24.5
[2024-12-03] MEDS: ALBUTEROL 2.5 MG/3 ML NEB (ADULT) 10 MG INH (09:39)
[2024-12-03] MEDS: ALBUTEROL/IPRATROPIUM 3 ML AMPUL INH (09:40)
--- NOTE | 2024-12-03 09:51 | EKG_ITS ---
[address] [address] [place] [address] Test Date: 2024-12-03 Pat Name: Ray Foster Department: [facility] Room: Gender: Male Dimension Specification Inspector: ANDERS : [id number] Requested By: Order Number: [id number] Reading MD: Anand Jackman Measurements Intervals [place] Rate: 114 P: 32 IA: 124 QRS: -9 QRSD: 90 T: 4 QT: 350 QTc: 482 Interpretive Statements Sinus tachycardia with occasional premature ventricular complexes Nonspecific ST abnormality Electronically Signed On 12-09-2024 7:23:15 PDT by Anand Jackman
--- NOTE | 2024-12-03 09:51 | DI.RAD.S_ITS ---
PROCEDURE: XR CHEST 1V INDICATIONS: suspected sepsis TECHNIQUE: One view of the chest was acquired. COMPARISON: [facility], CR, XR CHEST 1V, 06/03/2021, 2:16. [facility], CR, XR CHEST 1V, 07/02/2021, 22:45. [facility], CR, XR CHEST 1V, 06/22/2023, 22:00. (Additional prior imaging is not available for review from the archive at the time of this dictation.) FINDINGS: Surgical changes and devices: None. Lungs and pleura: An incomplete inspiratory result is noted, causing a crowded appearance to the lung markings. No pneumothorax or significant pleural effusions are seen. Mild, streaky opacities are seen at the lung bases. Mediastinum: The cardiac contours are within normal limits. The aorta demonstrates calcification and tortuosity. Bones and chest wall: No suspicious bony lesions. Age-appropriate bony degenerative changes are seen. Overlying soft tissues appear unremarkable. IMPRESSION: Limited study, with streaky opacities the lung bases. Atelectasis is suspected, although please consider infiltrate in this patient with this given history. If it would be helpful for clinical management decision making in this patient with this given history, please consider a dedicated chest CT with IV contrast for further evaluation. Dictated by: Bryan Her M.D. on 12/03/2024 at 9:50 Approved by: Bryan Her M.D. on 12/03/2024 at 9:51
[2024-12-03 10:22] LABS: Base Excess VBG 6.0 mmol/L (0-4); HCO3 VBG 31 mmol/L (24-28); Oxygen Saturation VBG 90 % (70-75); PCO2 VBG 42.4 mmHg (45-50); PO2 VBG 56 mmHg (35-45); Total CO2 VBG 29 mmol/L (24-29); pH VBG 7.47 (7.33-7.43)
[2024-12-03 10:27] LABS: Add Manual Diff / Slide Review NO; Hematocrit 37.2 % (41-53); Hemoglobin 12.3 g/dL (13.5-17.5); Lymphocytes Absolute Auto 500 /uL (1100-4500); Mean Corpuscular HGB Conc 33.0 % (30-36); Mean Corpuscular Hemoglobin 27.3 PG (26-34); Mean Corpuscular Volume 82.9 fL (80-100); Platelet Count 327 X10^3/uL (150-400)
[2024-12-03 10:32] LABS: INR 1.2 (0.9-1.3); Prothrombin Time 14.0 SECONDS (9.4-12.5)
[2024-12-03 10:34] LABS: Alanine Aminotransferase 25 IU/L (<50); Albumin 3.9 g/dL (3.5-5.0); Albumin Globulin Ratio 1.0 (1.0-2.8); Alkaline Phosphatase 174 U/L (38-126); Blood Urea Nitrogen 39 mg/dL (9-20); Calcium 8.6 mg/dL (8.4-10.2); Carbon Dioxide 30 mmol/L (22-32); Chloride 99 mmol/L (98-107); Estimated Glomerular Filt Rate > 60 mL/min (>60); Globulin 3.8 g/dL (1.7-4.1); Glucose 311 mg/dL (70-99); HEMOLYSIS < 15 (0-50); Lactate (Lactic Acid) 1.0 mmol/L (0.7-2.1); PTT Partial Thromboplastin Tim 29 SECONDS (25.1-36.5); Potassium 3.5 mmol/L (3.4-5.1); Sodium 140 mmol/L (137-145); Total Protein 7.7 g/dL (6.3-8.2)
[2024-12-03 10:35] LABS: Lipase < 10 U/L (23-300)
[2024-12-03] MEDS: SODIUM CHLORIDE 0.9% 1,000 ML 1000 ML IV (10:40)
[2024-12-03 10:51] LABS: Procalcitonin 0.163 ng/mL (<0.5)
--- NOTE | 2024-12-03 12:31 | ED_ITS ---
HPI - SOB/Dyspnea General Chief Complaint: Shortness of Breath/Dyspnea Stated Complaint: Covid/short of breath Time Seen by Provider: 12/03/24 09:58 Source: EMS Mode of arrival: EMS Limitations: no limitations History of Present Illness HPI Narrative: 68 years old male with history of hypertension, hyperlipidemia, GERD, CVA, diabetes mellitus type 2, presents to the ER from [facility] for confusion and shortness of breat. Was found to be covid 19 from facility. Related Data Home Medications ?Medication ?Instructions ?Recorded ?Confirmed acetaminophen 325 mg tablet 1,000 mg PO TID PRN pain/f ever ##0 06/29/17 12/03/24 atorvastatin 80 mg tablet 80 mg PO BEDTIME ##0 8 12/03/24 levothyroxine 50 mcg tablet 50 mcg PO QPM ##0 06/29/17 12/03/24 omeprazole 20 mg capsule,delayed 40 mg PO DAILY ##0 12/03/24 release insulin aspart U-100 100 unit/mL See Rx Instructions . Route .COMPLEX 11/25/17 12/03/24 (3 mL) subcutaneous pen (Novolog FlexPen U-100 Insulin aspart) cholecalciferol (vitamin D3) 25 2,000 unit PO DAILY 12/03/24 mcg (1,000 unit) capsule fluticasone propionate 50 1 spray intranasal BID 08/1312/03/24 mcg/actuation nasal spray,suspension hydroxyzine pamoate 25 mg capsule 50 mg PO Q6H PRN luli n/spasms 08/13/18 12/03/24 mirtazapine 15 mg tablet 15 mg PO BEDTIME 08/13/18 ondansetron 4 mg disintegrating 4 - 8 mg PO Q4H PRN Na usea 08/13/18 12/03/24 tablet duloxetine 60 mg capsule,delayed 60 mg PO BEDTIME 02/0212/03/24 release glucagon (human recombinant) 1 mg 1 mg IM PRN PRN bloo d glucose <60 03/02/19 12/03/24 solution for injection (Glucagon Emergency Kit) nystatin 100,000 unit/gram topical 1 applic topical BI D PRN yeast 03/02/19 12/03/24 cream aspirin 81 mg tablet,delayed 81 mg PO DAILY 07/04/21 0 12/03/24 release lubiprostone 24 mcg capsule 24 mcg PO BID 07/04/2107/25 (Amitiza) oxycodone myristate 18 mg capsule 18 mg PO BID 2 11/23/23 sprinkle extended release 12hr(DON'T CRUSH) (Xtampza ER) sertraline 50 mg tablet 50 mg PO DAILY 07/04/21 08/07/25 tamsulosin 0.4 mg capsule 0.4 mg PO BEDTIME 07/04/21 0 12/03/24 bisacodyl 5 mg tablet 5 - 10 mg PO DAILY PRN Const ipation 12/01/22 12/03/24 docusate sodium 100 mg tablet 200 mg PO TID 12/01/22 0 12/03/24 furosemide 80 mg tablet 80 mg PO QAM 12/01/22 insulin glargine 100 unit/mL (3 10 unit SUBCUT BEDTIME 12/01/22 12/03/24 mL) subcutaneous pen (Lantus Solostar U-100 Insulin) lorazepam 1 mg tablet 1 mg PO BEDTIME PRN Insomnia 12/01/22 12/03/24 magnesium hydroxide 400 mg/5 mL 30 ml PO DAILY PRN Con stipation 12/01/22 12/03/24 oral suspension (Milk of Magnesia) metoclopramide HCl 5 mg/5 mL oral 10 mg PO QAC 3 12/03/24 solution oxymetazoline 0.05 % nasal spray 2 spray intranasal Q1 2H PRN 12/01/22 12/03/24 nosebleed propylene glycol 1 %-glycerin 0.3 1 drp ophthalmic (ey e) Q1H PRN Dry 12/01/22 12/03/24 % eye drops Eyes sennosides 8.6 mg tablet (senna) 17.2 mg PO BID 12/03/24 aluminum-mag hydroxide-simethicone 20 ml PO Q6H 12/03/24 400 mg-400 mg-40 mg/5 mL oral susp doxycycline monohydrate 100 mg 100 mg PO BID 11/23/23 12/03/24 tablet ferrous sulfate 325 mg (65 mg 325 mg PO QPM 11/23/23 0 12/03/24 iron) tablet loperamide 2 mg capsule 2 mg PO PRN PRN Diarrhea 12/03/24 lorazepam 1 mg tablet 1 mg PO TID PRN Nausea And V omiting 11/23/23 12/03/24 polyethylene glycol 3350 17 17 g PO QPM 11/23/2312/03 gram/dose oral powder (Miralax) Previous Rx's ?Medication ?Instructions ?Recorded bisacodyl 10 mg rectal suppository 10 mg HI DAILY PRN Constipation #0 07/07/21 ea naloxone 0.4 mg/mL injection 0.4 mg IM Q15-20M PRN Opi oid 07/07/21 solution Overdose #0 mL oxycodone 5 mg tablet 20 mg (4 x 5 mg) PO Q4H PRN pain 7 07/07/21 days #40 tabs Allergies Allergy/AdvReac Type Severity Reaction Status Date / Time amitriptyline Allergy Verified 12/03/24 09:41 pollen extracts Allergy Verified 12/03/24 09:41 codeine (CODEINE) AdvReac Unknown nausea Verified 12/03/24 09:41 Review of Systems Review of Systems ROS Unobtainable: All systems reviewed & are unremarkable except as noted in HPI and below Patient History Medical History C3 spinal cord injury C4 spinal cord injury CVA (cerebral vascular accident) Diabetes Gastroesophageal reflux disease Hyperlipidemia Hypertension Surgical History History of carotid endarterectomy History of coronary artery stent placement Family History Mother Cancer Father Lung disease Hyperlipidemia Brother Lupus Social History household members: none alcohol intake: former substance use type: does not use additional social history: He currently resides in He currently resides in [facility]. tobacco type: cigarettes alcohol intake frequency: other Exam Narrative Exam Narrative: General: Patient appears to be mildly distress, requiring 3 L of O2. Head: normocephalic, atraumatic, HEENT: Pupils equal round reactive, eyes tracking well, neck supple, no JVD Heart: regular rate and rhythm, no murmurs, rubs, or gallops heard Lungs: some rhonchi heard bilaterally Abdomen: soft , nontender, nondistended, positive bowel sounds Neurological: no focal neurological signs, moving all extremities well, alert and oriented x3, Psych: good judgment ,good insight, mood is normal. Initial Vital Signs Initial Vital Signs: Vital Signs Pulse Rate 110 H 12/03/24 09:26 Respiratory Rate 16 12/03/24 09:26 Blood Pressure 177/79 H 12/03/24 09:26 Pulse Oximetry 91 12/03/24 09:26 Oxygen Delivery Method Nasal Cannula 12/03/24 09:26 Oxygen Flow Rate 3 12/03/24 09:26 Course Course Course Narrative: Patient admitted for COVID pneumonia considering requiring 3 L of O2. Orders Ordered: ED Orders 12/03/24 09:51 XR chest 1V Stat EKG-12 Lead Stat 12/03/24 10:12 Blood Culture Stat 12/03/24 10:19 Venous Blood Gas Routine 12/03/24 10:31 UA dip [Urinalysis Screen (Dip Only)] Stat Acetaminophen (Acetaminophen 325 Mg Tablet) 650 mg PO Q6H PRN PRN Reason: Fever/Mild Pain (1-3) Aspirin (Aspirin Ec 81 Mg Tablet) 81 mg PO DAILY [facility] Last Admin: 12/03/24 16:16 Dose: 81 mg Documented By: MANJEET Atorvastatin Calcium (Atorvastatin 20 Mg Tablet) 80 mg PO BEDTIME EUGENE Duloxetine HCl (Duloxetine 30 Mg Capsule) 60 mg PO BEDTIME [facility] Enoxaparin Sodium (Enoxaparin 40 Mg/0.4 Ml Syringe) 40 mg SUBCUT DAILY [facility] Last Admin: 12/03/24 16:16 Dose: 40 mg Documented By: MANJEET Dextrose/Sodium Chloride (Dextrose 5%-0.45% Ns) 1,000 mls @ 100 mls/hr IV CONT [facility] Stop: 12/03/24 23:29 Last Admin: 12/03/24 16:16 Dose: 100 mls/hr Documented By: MANJEET Azithromycin 500 mg/ Dextrose 250 mls @ 250 mls/hr IV Q24H [facility] Stop: 12/06/24 14:59 Last Infusion: 12/03/24 17:38 Dose: Infused Documented By: Admin: 12/03/24 16:16 Dose: 250 mls/hr Documented By: MANJEET Ceftriaxone Sodium 1,000 mg/ (Sodium Chloride) 100 mls @ 200 mls/hr IV Q24H [facility] Insulin Glargine (Insulin Glargine 100 Unit/Ml 3ml Pen) 10 unit SUBCUT BEDTIME EUGENE Insulin Human Lispro (Insulin Lispro 100 Unit/Ml 3ml Vial) 0 unit SUBCUT ACHS [facility]; Protocol Last Admin: 12/03/24 16:57 Dose: 5 unit Documented By: MANJEET Co-signed By: RANDALL Levothyroxine Sodium (Levothyroxine 50 Mcg Tablet) 50 mcg PO DAILY@0600 [facility] Lorazepam (Lorazepam 1 Mg Tablet) 1 mg PO BEDTIME PRN PRN Reason: Insomnia Mirtazapine (Mirtazapine 15 Mg Tablet) 15 mg PO BEDTIME [facility] Naloxone HCl (Naloxone 0.4 Mg/Ml Vial) 0.2 mg IV Q2MIN PRN PRN Reason: Opiate Reversal Ondansetron HCl (Ondansetron 4 Mg/2 Ml Inj) 4 mg IV NOW PRN PRN Reason: Nausea And Vomiting Ondansetron HCl (Ondansetron 4 Mg Odt) 4 mg PO NOW PRN PRN Reason: Nausea And Vomiting Oxycodone HCl (Oxycodone Er 20 Mg Tab) 20 mg PO BID [facility] Polyethylene Glycol (Polyethylene Glycol 3350 17 Gm Powd.Pack) 17 gm PO QPM [facility] Last Admin: 12/03/24 17:03 Dose: Not Given Documented By: MANJEET Sertraline HCl (Sertraline 50 Mg Tablet) 50 mg PO DAILY [facility] Tamsulosin HCl (Tamsulosin 0.4 Mg Capsule) 0.4 mg PO BEDTIME [facility] Discontinued Medications Albuterol (Albuterol 2.5 Mg/3 Ml Neb (Adult)) 10 mg INH NOW ONE Stop: 12/03/24 09:36 Last Admin: 12/03/24 09:39 Dose: 10 mg Documented By: ANDERS Albuterol/Ipratropium (Albuterol/Ipratropium 3 Ml Ampul) 3 ml INH NOW ONE Stop: 12/03/24 09:36 Last Admin: 12/03/24 09:40 Dose: 3 ml Documented By: ANDERS Sodium Chloride (Normal Saline 0.9%) 1,000 mls @ 1,000 mls/hr IV BOLUS ONE Stop: 12/03/24 10:50 Last Infusion: 12/03/24 12:24 Dose: Infused Documented By: Admin: 12/03/24 10:40 Dose: 1,000 mls/hr Documented By: KATE Ceftriaxone Sodium 2,000 mg/ (Sodium Chloride) 100 mls @ 200 mls/hr IV NOW ONE Stop: 12/03/24 12:38 Last Infusion: 12/03/24 14:25 Dose: Infused Documented By: Admin: 12/03/24 13:42 Dose: 200 mls/hr Documented By: KATE Azithromycin 500 mg/ Dextrose 250 mls @ 250 mls/hr IV NOW ONE Stop: 12/03/24 12:39 Last Admin: 12/03/24 16:12 Dose: Not Given Documented By: MANJEET Ceftriaxone Sodium 1,000 mg/ (Sodium Chloride) 100 mls @ 200 mls/hr IV Q24H [facility] Stop: 12/08/24 13:59 Last Admin: 12/03/24 16:11 Dose: Not Given Documented By: MANJEET Insulin Human Lispro (Insulin Lispro 100 Unit/Ml 3ml Vial) 10 unit SUBCUT NOW ONE Stop: 12/03/24 18:05 Last Admin: 12/03/24 18:16 Dose: 10 unit Documented By: MANJEET Co-signed By: RANDALL Reevaluation(s) Reevaluation #1: Patient is still requiring 3 L of O2 but does feel less shortness of breath after a DuoNeb treatment. Consultations Consultation #1: Dr. Bass was consulted and graciously admitted the patient for requiring O2 support in IV antibiotics. Patient is started on IV Rocephin as well as azithromycin IV. Vital Signs Vital signs: Vital Signs - 8 hr 12/03/24 11:00 Pulse Rate 116 H Respiratory Rate 20 Blood Pressure 146/89 H Pulse Oximetry 90 L Oxygen Delivery Method Nasal Cannula Oxygen Flow Rate 3 MDM - SOB/Dyspnea Differential Diagnosis Differential diagnosis: Likely congestive heart failure, community acquired pneumonia and other (covd 19) Lab Data 12/03/24 09:30 12/03/24 09:30 Labs: Lab Results 12/03/24 12/03/24 Range/Units 09:30 10:19 WBC 18.3 H (4.5-11.0) X10^3/uL RBC 4.49 L (4.5-5.9) X10^6/uL Hgb 12.3 L (13.5-17.5) g/dL Hct 37.2 L (41-53) % MCV 82.9 (80-100) fL MCH 27.3 (26-34) PG MCHC 33.0 (30-36) % RDW 14.9 H (11.6-14.8) % Plt Count 327 (150-400) X10^3/uL Neut % (Auto) 90.3 H (50-75) % Lymph % (Auto) 2.8 L (25-40) % Traill % (Auto) 6.8 (3-14) % Eos % (Auto) 0.0 L (2-4) % Baso % (Auto) 0.1 (0-2) % Neut # (Auto) 88123 H (0146-6657) /uL Lymph # (Auto) 500 L (4588-2252) /uL [place]ill # (Auto) 1200 H (0-900) /uL Eos # (Auto) 0 (0-450) /uL Baso # (Auto) 0 (0-100) /uL PT 14.0 H (9.4-12.5) SECONDS INR 1.2 (0.9-1.3) APTT 29 (25.1-36.5) SECONDS VBG pH 7.47 H (7.33-7.43) VBG pCO2 42.4 L (45-50) mmHg VBG pO2 56 H (35-45) mmHg VBG HCO3 31 H (24-28) mmol/L VBG Total CO2 29 (24-29) mmol/L VBG O2 Saturation 90 H (70-75) % VBG Base Excess 6.0 H (0-4) mmol/L Sodium 140 (137-145) mmol/L Potassium 3.5 (3.4-5.1) mmol/L Chloride 99 (98-107) mmol/L Carbon Dioxide 30 (22-32) mmol/L BUN 39 H (9-20) mg/dL Creatinine 1.17 (0.66-1.25) mg/dL Estimated GFR > 60 (>60) mL/min BUN/Creatinine Ratio 33.3 H (6-22) Glucose 311 H (70-99) mg/dL Lactate 1.0 (0.7-2.1) mmol/L Calcium 8.6 (8.4-10.2) mg/dL Total Bilirubin 0.6 (0.2-1.3) mg/dL AST 33 (17-59) IU/L ALT 25 (<50) IU/L Alkaline Phosphatase 174 H (38-126) U/L Total Protein 7.7 (6.3-8.2) g/dL Albumin 3.9 (3.5-5.0) g/dL Globulin 3.8 (1.7-4.1) g/dL Albumin/Globulin Ratio 1.0 (1.0-2.8) Lipase < 10 L (23-300) U/L Procalcitonin 0.163 (<0.5) ng/mL ECG Data Interpretation: EKG shows sinus tachycardia with occasional PVCs, nonspecific ST-T abnormality, normal HI intervals heart rate 114 beats per minute Previous ekg showed following: Sinus tachycardia Possible Inferior infarct , age undetermined Possible Anterior infarct , age undetermined MDM Narrative Medical decision making narrative: 69-year-old male he will be admitted due to requiring O2 support most likely from a pneumonia secondary to COVID-19. Discharge Plan Departure Patient Disposition: Admitted As Inpatient Clinical Impression: Pneumonia due to COVID-19 virus Admit Date/Time: 12/03/24 12:35 Admit Provider: Bryson Bass V
--- NOTE | 2024-12-03 13:28 | PM.HP.IH.1 ---
History of Present Illness History of Present Illness Date Patient Seen: 12/03/24 Time Patient Seen: 12:30 Chief complaint: Covid/short of breath Narrative: 69-year-old man with a history of stroke with chronic right-sided hemiparesis, PAD s/p right AKA, diabetes on insulin therapy, hypertension, hyperlipidemia and hypothyroidism living at [facility] under the care of Eli Montanez presented to the emergency department by EMS with confusion and shortness of breath. He was found to test positive for COVID-19 at his facility. Chest x-ray shows lower lobe infiltrates and mild hypoxia with oxygen saturation 90%. He is admitted for further management and evaluation. [facility] Medical History C3 spinal cord injury C4 spinal cord injury CVA (cerebral vascular accident) Diabetes Gastroesophageal reflux disease Hyperlipidemia Hypertension Surgical History History of carotid endarterectomy History of coronary artery stent placement Family History Mother Cancer Father Lung disease Hyperlipidemia Brother Lupus Social History household members: none alcohol intake: former substance use type: does not use additional social history: He currently resides in He currently resides in [facility]. Meds Home Medications and Allergies Home Medications ?Medication ?Instructions ?Recorded ?Confirmed ?Type acetaminophen 325 mg tablet 1,000 mg PO TID PRN pain/fever ##0 06/29/17 11/23/23 History atorvastatin 80 mg tablet 80 mg PO BEDTIME ##0 06/29/17 11/23/23 History levothyroxine 50 mcg tablet 50 mcg PO QPM ##0 06/29/17 11/23/23 History omeprazole 20 mg capsule,delayed 40 mg PO DAILY ##0 06/29/17 11/23/23 History release insulin aspart U-100 100 unit/mL See Rx Instructions .Route .COMPLEX 11/25/17 11/23/23 History (3 mL) subcutaneous pen (Novolog FlexPen U-100 Insulin aspart) cholecalciferol (vitamin D3) 25 2,000 unit PO DAILY 08/13/18 11/23/23 History mcg (1,000 unit) capsule fluticasone propionate 50 1 spray intranasal BID 08/13/18 11/23/23 History mcg/actuation nasal spray,suspension hydroxyzine pamoate 25 mg capsule 50 mg PO Q6H PRN pain/spasms 08/13/18 11/23/23 History mirtazapine 15 mg tablet 15 mg PO BEDTIME 08/13/18 11/23/23 History ondansetron 4 mg disintegrating 4 - 8 mg PO Q4H PRN Nausea 08/13/18 11/23/23 History tablet duloxetine 60 mg capsule,delayed 60 mg PO BEDTIME 03/02/19 11/23/23 History release glucagon (human recombinant) 1 mg 1 mg IM PRN PRN blood glucose <60 03/02/19 11/23/23 History solution for injection (Glucagon Emergency Kit) nystatin 100,000 unit/gram topical 1 applic topical BID PRN yeast 03/02/19 11/23/23 History cream aspirin 81 mg tablet,delayed 81 mg PO DAILY 07/04/21 11/23/23 History release lubiprostone 24 mcg capsule 24 mcg PO BID 07/04/21 11/23/23 History (Amitiza) oxycodone myristate 18 mg capsule 18 mg PO BID 07/04/21 11/23/23 History sprinkle extended release 12hr(DON'T CRUSH) (Xtampza ER) sertraline 50 mg tablet 50 mg PO DAILY 07/04/21 11/23/23 History tamsulosin 0.4 mg capsule 0.4 mg PO BEDTIME 07/04/21 11/23/23 History bisacodyl 10 mg rectal suppository 10 mg SD DAILY PRN Constipation #0 07/07/21 11/23/23 Rx ea naloxone 0.4 mg/mL injection 0.4 mg IM Q15-20M PRN Opioid 07/07/21 11/23/23 Rx solution Overdose #0 mL oxycodone 5 mg tablet 20 mg (4 x 5 mg) PO Q4H PRN pain 7 07/07/21 11/23/23 Rx days #40 tabs bisacodyl 5 mg tablet 5 - 10 mg PO DAILY PRN Constipation 12/01/22 11/23/23 History docusate sodium 100 mg tablet 200 mg PO TID 12/01/22 11/23/23 History furosemide 80 mg tablet 80 mg PO QAM 12/01/22 11/23/23 History insulin glargine 100 unit/mL (3 10 unit SUBCUT BEDTIME 12/01/22 11/23/23 History mL) subcutaneous pen (Lantus Solostar U-100 Insulin) lorazepam 1 mg tablet 1 mg PO BEDTIME PRN Insomnia 12/01/22 11/23/23 History magnesium hydroxide 400 mg/5 mL 30 ml PO DAILY PRN Constipation 12/01/22 11/23/23 History oral suspension (Milk of Magnesia) metoclopramide HCl 5 mg/5 mL oral 10 mg PO QAC 12/01/22 11/23/23 History solution oxymetazoline 0.05 % nasal spray 2 spray intranasal Q12H PRN 12/01/22 11/23/23 History nosebleed propylene glycol 1 %-glycerin 0.3 1 drp ophthalmic (eye) Q1H PRN Dry 12/01/22 11/23/23 History % eye drops Eyes sennosides 8.6 mg tablet (senna) 17.2 mg PO BID 12/01/22 11/23/23 History aluminum-mag hydroxide-simethicone 20 ml PO Q6H 11/23/23 11/23/23 History 400 mg-400 mg-40 mg/5 mL oral susp doxycycline monohydrate 100 mg 100 mg PO BID 11/23/23 11/23/23 History tablet ferrous sulfate 325 mg (65 mg 325 mg PO QPM 11/23/23 11/23/23 History iron) tablet loperamide 2 mg capsule 2 mg PO PRN PRN Diarrhea 11/23/23 11/23/23 History lorazepam 1 mg tablet 1 mg PO TID PRN Nausea And Vomiting 11/23/23 11/23/23 History polyethylene glycol 3350 17 17 g PO QPM 11/23/23 11/23/23 History gram/dose oral powder (Miralax) Allergies Allergy/AdvReac Type Severity Reaction Status Date / Time amitriptyline Allergy Verified 12/03/24 09:41 pollen extracts Allergy Verified 12/03/24 09:41 codeine (CODEINE) AdvReac Unknown nausea Verified 12/03/24 09:41 Review of Systems Review of Systems ROS: Yes All systems reviewed with the patient and are negative except as otherwise documented Exam Vital Signs (past 8 hours): - 12/03/24 09:26 12/03/24 09:30 12/03/24 09:41 Temperature 98.6 F Pulse Rate 110 H 109 H 110 H Respiratory Rate 16 16 22 Blood Pressure 177/79 H 171/75 H 171/75 H Pulse Oximetry 91 91 91 Oxygen Delivery Method Nasal Cannula Nasal Cannula Room Air Oxygen Flow Rate 3 3 12/03/24 10:00 12/03/24 10:06 12/03/24 10:31 Temperature Pulse Rate 111 H 113 H 114 H Respiratory Rate 19 24 20 Blood Pressure 167/74 H 170/75 H 136/64 Pulse Oximetry 92 92 90 L Oxygen Delivery Method Nasal Cannula Nasal Cannula Nasal Cannula Oxygen Flow Rate 3 3 3 12/03/24 11:00 Temperature Pulse Rate 116 H Respiratory Rate 20 Blood Pressure 146/89 H Pulse Oximetry 90 L Oxygen Delivery Method Nasal Cannula Oxygen Flow Rate 3 Oxygen Delivery Method Nasal Cannula Oxygen Flow Rate 3 Narrative Exam Narrative: GENERAL: This is a well-nourished, well-developed patient, in no apparent distress. HEAD: Atraumatic. Normocephalic. No temporal or scalp tenderness. EYES: Pupils equal round and reactive. Extraocular motions intact. No scleral icterus. No injection or drainage. ENT: Mucous membranes pink and moist. NECK: Trachea midline. No JVD, bruits or lymphadenopathy. Supple, nontender, no meningeal signs. CARDIOVASCULAR: Regular rate and rhythm without murmurs, gallops, or rubs. RESPIRATORY: Scattered bilateral rhonchi. GASTROINTESTINAL: Abdomen soft, non-tender, nondistended. EXTREMITIES: Right above-knee amputation, left leg without edema. BACK: Nontender without deformity or crepitance. No flank tenderness. NEUROLOGIC: Alert, oriented, speech fluent, right facial droop, in right arm hemiparesis with 3/5 strength, right AKA. DERMATOLOGIC: No rashes or skin lesions. Objective ECG Impression: Sinus tachycardia at 114 beats per minute, nonspecific ST-T segment changes, no acute ischemic change. Imaging Chest x-ray 12/03/2024:: Radiologist's impression: Limited study, with streaky opacities the lung bases. Atelectasis is suspected, although please consider infiltrate in this patient with this given history. If it would be helpful for clinical management decision making in this patient with this given history, please consider a dedicated chest CT with IV contrast for further evaluation. Labs 12/03/24 09:30 12/03/24 09:30 Labs: Laboratory Results - last 24 hr 12/03/24 12/03/24 09:30 10:19 WBC 18.3 H RBC 4.49 L Hgb 12.3 L Hct 37.2 L MCV 82.9 MCH 27.3 MCHC 33.0 RDW 14.9 H Plt Count 327 Neut % (Auto) 90.3 H Lymph % (Auto) 2.8 L Sumner % (Auto) 6.8 Eos % (Auto) 0.0 L Baso % (Auto) 0.1 Neut # (Auto) 58476 H Lymph # (Auto) 500 L [place]ner # (Auto) 1200 H Eos # (Auto) 0 Baso # (Auto) 0 PT 14.0 H INR 1.2 APTT 29 VBG pH 7.47 H VBG pCO2 42.4 L VBG pO2 56 H VBG HCO3 31 H VBG Total CO2 29 VBG O2 Saturation 90 H VBG Base Excess 6.0 H Sodium 140 Potassium 3.5 Chloride 99 Carbon Dioxide 30 BUN 39 H Creatinine 1.17 Estimated GFR > 60 BUN/Creatinine Ratio 33.3 H Glucose 311 H Lactate 1.0 Calcium 8.6 Total Bilirubin 0.6 AST 33 ALT 25 Alkaline Phosphatase 174 H Total Protein 7.7 Albumin 3.9 Globulin 3.8 Albumin/Globulin Ratio 1.0 Lipase < 10 L Procalcitonin 0.163 Assessment & Plan Assessment & Plan narrative: 1. Community-acquired pneumonia, COVID positive, can not rule out secondary bacterial pneumonia. 2. Sepsis due to 1. With leukocytosis, tachycardia, and hypoxia. 3. Acute hypoxemic respiratory failure due to the above. 4. Diabetes mellitus, type 2. 5. Cerebrovascular disease with right hemiparesis. 6. Peripheral artery disease, status post right AKA. 7. Hypertension. 8. Hyperlipidemia. 9. Hypothyroidism. Plan: -Admit as inpatient -ceftriaxone and azithromycin - supplemental oxygen - routine insulin with sliding scale coverage - check TSH and hemoglobin A1c DVT prophylaxis: Lovenox Code status: Full code. His mother is his surrogate decision maker. COVID-19 COVID-19 status: Positive [facility] [employer] Document charge(s): No Charge Codes Initial inpatient/observation care: [id number]
[2024-12-03] MEDS: cefTRIAXone 2,000 MG in SODIUM CHLORIDE 0.9% 100 ML 200 MG IV (13:42)
--- NOTE | 2024-12-03 15:58 | PC.WOUNDPHOT ---
12/03 admission photos of buttocks/coccyx
--- NOTE | 2024-12-03 15:59 | PC.NURSE ---
Addendum entered by Josephine Kahn R.N. 12/03/24 19:29: Patients blood sugar is 624, lab called and notified. Addendum entered by Josephine Kahn R.N. 12/03/24 17:52: Patients blood sugar reads over 500 with accu check. Given 5u of fast acting insulin. We are rechecking his blood sugar now. Original Note: Patient admitted for covid, his lung sounds are decreased, he is on 3l of oxygen and not having sob. He is alert and oriented x3 but sleepy. Patient has one unstageable small open area to the inside of his l.gluteal fold and the one above it is a stage two that is small and healing. On r.buttocks cheeks he also has a small stage two ulcer that is healing. Area's left open to air and cream applied. He will be a q 1-2 hour turn. He is getting iv antibiotics and will have tele and ivf.
[2024-12-03] MEDS: DEXTROSE 5%-0.45% NS 1,000 ML 100 ML IV (16:16)
[2024-12-03] MEDS: ASPIRIN EC 81 MG TABLET PO (16:16)
[2024-12-03] MEDS: AZITHROMYCIN 500 MG in DEXTROSE 5% IN WATER 250 ML 250 MG IV (16:16)
[2024-12-03] MEDS: ENOXAPARIN 40 MG/0.4 ML SYRINGE SUBCUT (16:16)
[2024-12-03] MEDS: INSULIN LISPRO 100 UNIT/ML 3ML VIAL SUBCUT ×2 (16:57→22:09)
[2024-12-03] MEDS: INSULIN LISPRO 100 UNIT/ML 3ML VIAL 10 UNIT SUBCUT (18:16)
[2024-12-03 18:18] LABS: Coronavirus NL 63 Not Detected (Not Detect); SARS- CoV-2 Detected (Not Detecte)
[2024-12-03 19:23] LABS: Glucose 624 mg/dL (70-99)
[2024-12-03 19:45] LABS: Alanine Aminotransferase 26 IU/L (<50); Albumin 3.7 g/dL (3.5-5.0); Albumin Globulin Ratio 1.1 (1.0-2.8); Alkaline Phosphatase 155 U/L (38-126); Blood Urea Nitrogen 38 mg/dL (9-20); Calcium 8.6 mg/dL (8.4-10.2); Carbon Dioxide 26 mmol/L (22-32); Chloride 103 mmol/L (98-107); Estimated Glomerular Filt Rate > 60 mL/min (>60); Globulin 3.5 g/dL (1.7-4.1); HEMOLYSIS < 15 (0-50); Potassium 3.1 mmol/L (3.4-5.1); Sodium 142 mmol/L (137-145); Total Protein 7.2 g/dL (6.3-8.2)
[2024-12-03 19:56] LABS: Glucose 603 mg/dL (70-99)
[2024-12-03 21:53] LABS: Glucose 485 mg/dL (70-99)
[2024-12-03] MEDS: INSULIN GLARGINE 100 UNIT/ML 3ML PEN 20 UNIT SUBCUT (22:08)
[2024-12-03] MEDS: INSULIN GLARGINE 100 UNIT/ML 3ML PEN 10 UNIT SUBCUT (22:09)
[2024-12-03] MEDS: ATORVASTATIN 20 MG TABLET 80 MG PO (22:11)
[2024-12-03] MEDS: DULOXETINE 30 MG CAPSULE 60 MG PO (22:11)
[2024-12-03] MEDS: TAMSULOSIN 0.4 MG CAPSULE PO (22:11)
[2024-12-03] MEDS: MIRTAZAPINE 15 MG TABLET PO (22:12)
[2024-12-03] MEDS: POTASSIUM CHLORIDE 20 MEQ TAB 40 MEQ PO (23:48)
[2024-12-03] MEDS: KCL 20 MEQ IN NS 1,000 ML 100 MEQ IV (23:48)
[2024-12-04] VITALS (10 sets, daily range): BP systolic 123–180; BP diastolic 56–88; PULSE 80–117; RESP 16–18; TEMP 36.3–37.2; O2SAT 96–97; BMI 24.5
[2024-12-04 04:46] LABS: Acinetobacter calcoa-baumannii Not Detected (Not Detect); Bacteroides fragilis Not Detected (Not Detect); Candida auris Not Detected (Not Detect); Candida glabrata Not Detected (Not Detect); Cryptococcus neoformans/gatti Not Detected (Not Detect); Enterobacterales Not Detected (Not Detect); Enterococcus faecalis Not Detected (Not Detect); Enterococcus faecium Not Detected (Not Detect); Klebsiella aerogenes Not Detected (Not Detect); Proteus species Not Detected (Not Detect); Serratia marcescens Not Detected (Not Detect); Staphylococcus epidermidis Not Detected (Not Detect); Staphylococcus lugdunensis Not Detected (Not Detect); Staphylococcus species Detected (Not Detect); Stenotrophomonas maltophilia Not Detected (Not Detect); Streptococcus agalactiae (Gr B Not Detected (Not Detect); Streptococcus pneumonia Not Detected (Not Detect); Streptococcus pyogenes (Gr A) Not Detected (Not Detect); Streptococcus species Not Detected (Not Detect)
[2024-12-04] MEDS: LEVOTHYROXINE 50 MCG TABLET PO (05:33)
[2024-12-04 05:41] LABS: Blood Urea Nitrogen 40 mg/dL (9-20); Calcium 8.6 mg/dL (8.4-10.2); Carbon Dioxide 31 mmol/L (22-32); Chloride 108 mmol/L (98-107); Estimated Glomerular Filt Rate > 60 mL/min (>60); Glucose 253 mg/dL (70-99); HEMOLYSIS < 15 (0-50); Potassium 3.4 mmol/L (3.4-5.1); Sodium 145 mmol/L (137-145)
[2024-12-04 05:43] LABS: Hemoglobin A1C% w Est Avg Glu 7.6 % (4.0-6.0)
[2024-12-04 06:32] LABS: Hematocrit 34.3 % (41-53); Hemoglobin 11.1 g/dL (13.5-17.5); Mean Corpuscular HGB Conc 32.3 % (30-36); Mean Corpuscular Hemoglobin 26.9 PG (26-34); Mean Corpuscular Volume 83.3 fL (80-100); Platelet Count 306 X10^3/uL (150-400)
[2024-12-04 06:50] LABS: Add Manual Diff / Slide Review YES
[2024-12-04 06:52] LABS: Band Neutrophils Percent 4.0 % (3-7); Lymphocytes Percent Manual 4.0 % (25-45); Monocytes Percent Manual 4.0 % (2-11); Neutrophils Absolute Manual 23644 /uL (3000-5900); RBC Morphology Normal Morphology; Segmented Neutrophils Percent 88.0 % (38-70); Total Cells Counted 100
--- NOTE | 2024-12-04 06:54 | PC.NURSE ---
pt blood sugars are down to 253 this am, IVF changed to NS with 20 meq klc at 100, potassium this am 3.4 and sodium is 145, pt now has a waffle cushion and being turned every 2 hours. pt now has a productive cought with light yellow phlem (suction set up at bed side). tele discontinued per third shift lieutenant md (pt kept taking tele off), no cardiac history. pt watch placed in the safe.
[2024-12-04 08:25] LABS: Thyroid Stimulating Hormone 1.39 uIU/mL (0.47-4.68)
[2024-12-04] MEDS: OXYCODONE ER 20 MG TAB PO (08:38)
[2024-12-04] MEDS: SERTRALINE 50 MG TABLET PO (08:38)
[2024-12-04] MEDS: ENOXAPARIN 40 MG/0.4 ML SYRINGE SUBCUT (08:38)
[2024-12-04] MEDS: ASPIRIN EC 81 MG TABLET PO (08:38)
[2024-12-04] MEDS: INSULIN LISPRO 100 UNIT/ML 3ML VIAL SUBCUT ×2 (08:40→12:25)
--- NOTE | 2024-12-04 12:18 | ST.IPCSEOM ---
Visit Care Team Role Provider Type BOO Harden Family Provider Non-Staff Primary Care Provider Specialty: Medical Address: [address] [place] [address], [facility] Email: Harjinder Mitchell MD Emergency Provider Physician Referring Provider Specialty: Emergency Medicine Address: [address] [place] [address] Fax: Email: [email or web address] Bryson Bass MD Admit Provider Physician Attending Provider Specialty: Internal Medicine Address: [address] [place] [address] Email: [email or web address] Diagnoses COVID-19 (12/03/24) Past Medical History (Last Reviewed 12/03/24 @ 13:58 by Bryson Bass MD) C3 spinal cord injury (Medical) C4 spinal cord injury (Medical) CVA (cerebral vascular accident) (Medical) Diabetes (Medical) Gastroesophageal reflux disease (Medical) Hyperlipidemia (Medical) Hypertension (Medical) Speech-Language Pathology Swallow Evaluation [employer] Clinical Swallow Evaluation Start: 12/04/24 11:47 Freq: Status: Active Protocol: Document 12/04/24 11:47 MA (Rec: 12/04/24 12:02 MA Desktop) Clinical Swallow Evaluation Session Time Visit Start Time 11:20 Visit Stop Time 11:45 Total Visit Minutes 25 Visit Information Visit Number [address] Alton Nolasco Reason for Referral Coughing Setting Assessment Location Acute Care Visit Type Note Type Initial evaluation Next Note Type Next Note Type Treatment Note Patient Information Identification Type Name,Wristband History Per H&P: 69-year-old man with a history of stroke with chronic right-sided hemiparesis, PAD s/p right AKA, diabetes on insulin therapy, hypertension, hyperlipidemia and hypothyroidism living at [facility] under the care of Eli Barron presented to the emergency department by EMS with confusion and shortness of breath. He was found to test positive for COVID-19 at his facility. Chest x -ray shows lower lobe infiltrates and mild hypoxia with oxygen saturation 90%. He is admitted for further management and evaluation. Pt referred for speech evaluation d/t Pt coughing. Pt had a MBS completed in 2019 with recommendations: dysphagia advanced, chopped foods, thin liquids. Subjective Nursing reports Pt has had poor intake with nausea and Observations vomiting. Nursing aid reports he attempted to eat some hashbrowns this morning at breakfast but threw them up. She also states she has observed him coughing on thin liquids. Upon entering Pt room, Pt sleeping in bed, however easily aroused with verbal cue. Pt awake, alert however exhibiting mild difficulties answering some questions requiring repetition. Pt Ox3. Pt on oxygen via nasal cannula. Pt edentulous, however reports he eats everything. He reports occasional difficulties swallowing. He declined PO trials of solids d/t him feeling nauseous, however agreeable to trials of thin water. Reported by Patient/Caregiver Other Symptoms Coughing Current Diet Regular (IDDSI 7) Baseline Feeding Needs some assistance Method The IDDSI Framework Protocol: IDDSI.1 Objective Assessment Mental Status Alert,Responsive,Cooperative,Confused,Lethargic Dentition Edentulous Comment Oral motor exam revealed Pt with reduced lingual and labial strength and ROM. Pt with slightly hoarse vocal quality. Food and Liquid Trials Position During Upright (90 degrees) Assessment Liquids Trialed Thin (IDDSI 0) Administration Type Cup single sip,Straw,Needs some assistance Oral Impairment Mildly impaired Oral Phase Comments Pt required assistance drinking from cup d/t weakness. ST positioned him upright in bed utilizing bed controls . For thin water via straw and single cup sips, Pt exhibited adequate suction and good oral acceptance and containment, suspected loss of bolus resulting in premature spillage, occasional mild bolus holding. Pharyngeal Mildly impaired Impairment Pharyngeal Phase For thin water via straw, Pt exhibited audible swallow Comments with immediate cough reflex. He with 1x cough reflex with about 4 oz of thin water with no additional coughing/choking throughout evaluation. Pt exhibited no overt s/s of aspiration such as coughing or choking with thin water via cup. Fatigue/Endurance Moderate fatigue Comment Pt with increased fatigue as session progressed. Again, Pt refused all PO trials of solids. The IDDSI Framework Protocol: IDDSI.1 Findings Swallowing Function Oropharyngeal phase dysphagia Severity of Swallow Moderately impaired Impairment Prognosis Fair Impact on Safety and Risk for aspiration,Risk for inadequate nutrition/ Functioning hydration Recommendations Instrumental Yes Assessment Swallowing Treatment Yes Frequency Daily while inpatient Recommended Liquids Thin (IDDSI 0) Other Pt refused PO trials of solids. ST recommends Pt remain Recommendations on baseline diet of regular solids and thin liquids at this time. 100% supervision and strict oral care is recommendation before/after intake. ST also recommends Modified Barium Swallow test once Pt is off COVID precautions and is able to tolerate per his medical status. ST to f/u to determine safest and most efficient least restrictive diet and ensure tolerance. Safety Precautions/ Supervision needed for all meals,Reduce distractions, Swallowing Remain upright (90 degrees) during all oral intake, Recommendations Upright position at least 30 minutes after meals,Small bites and sips when eating,Slow rate; swallow between bites,Alternate liquids and solids,Strict oral care after intake Medication As Tolerated Recommendations Referrals Recommended Dietary Referrals Education Patient/Caregiver Described results of evaluation,Patient requires Education further education/training Goals Short-term Goals STG 1: Pt will tolerate prescribed diet with <5% overt s/s of aspiration/dysphagia with use of compensatory swallowing strategies and minimal cues. Long-term Goals LTG 1: Patient will consume safest and most efficient least restrictive diet with no clinical s/s of aspiration or dysphagia 100% of the time in order to meet primary nutrition/hydration needs.
[2024-12-04] MEDS: KCL 20 MEQ IN NS 1,000 ML 100 MEQ IV (13:51)
--- NOTE | 2024-12-04 15:09 | PC.NURSE ---
Patient has been lethargic today, sleeping most of the day. He refused breakfast and lunch. He is taking sips of fluids. Speech therapy into see patient, he coughed once and was sleepy, they will come back to see patient at a later time. Patient has been encouraged to be repositioned every two hours but he has been refusing. Will approach again soon. His iv antibiotics are infusing now. He does have a small unstageable ulcer and a couple of small stage twos to his back side that are healing. Wound photos put in yesterday.
[2024-12-04] MEDS: AZITHROMYCIN 500 MG in DEXTROSE 5% IN WATER 250 ML 250 MG IV (15:33)
--- NOTE | 2024-12-04 16:08 | CM.DANOTE ---
Patient is a 69 yo male who was admitted on 12/03/24 for COVID+/Pneumonia. Pt has [facility] and [facility] for insurance and his PCP is Eli Montanez. EMR was reviewed. Per MD, pt with hx of CVA and residual weakness and hx of DM and admitted for COVID and pneumonia treatment and on oxygen and not yet stable for discharge. ST/PT ordered and pending. Due to triage needs and droplet precautions, no bedside assessment completed yet today. Per RN, pt is alert and oriented and typically uses a w/c for mobility and having some feelings of urinary retention although already has denson cath in place. SW called [facility] and left ms requesting call back to confirm pt's baseline and faxed clinicals to [facility] to review. Plan: SW to follow closely to confirm plan of return to [facility] if close to baseline vs possible SNF if requiring more assist and would need [facility] auth. ALEC Woods Discharge Planning/Care Management CM Discharge Assessment Start: 12/03/24 12:45 Freq: Status: Active Protocol: Document 12/04/24 16:01 BF (Rec: 12/04/24 16:08 [id number]) Discharge Planning Assessment Assigned Discharge ALEC [facility] Database Operator Advance Directives? Yes: POLST;ADV DIR;POA Advance Directives Yes on File History Provided By Patient,Family Member,Medical Record Has Patient been No admitted in last 30 days? Prior Living Assisted Living Arrangements Household Members none Type of Relies on Others transporation used prior to admit Facility Name [facility] Admitted From: Willing to Return to Yes Facility? Independent with ADL No 's Is patient alert and Yes oriented? Caregiver for No Another Comment Patient uses an electric power w/c at [facility] Comment SNF vs return to [facility] pending PT Barriers to Yes Discharge Comment COVID + Discharge Plan Assisted Living Facility Transportation Facility van likely Arrangement Additional Comment Pending PT and needs for [facility] vs [facility] at d/c Review Status In Process Please Provide Date 12/04/24 Initial DC Assessment Was Performed Next Review Type Continued Stay Review
--- NOTE | 2024-12-04 16:12 | PM.PN.1 ---
Subjective Subjective Date Patient Seen: 12/04/24 Interval history: Chief complaint: Shortness for breath secondary to COVID pneumonia with acute hypoxic respiratory failure History of present illness: 12/03: 69-year-old man with a history of stroke with chronic right-sided hemiparesis, PAD s/p right AKA, diabetes on insulin therapy, hypertension, hyperlipidemia and hypothyroidism living at [facility] under the care of Eli Montanez presented to the emergency department by EMS with confusion and shortness of breath. He was found to test positive for COVID-19 at his facility. Chest x-ray shows lower lobe infiltrates and mild hypoxia with oxygen saturation 90%. He is admitted for further management and evaluation. Hospital course: 12/04: Very lethargic and fatigued today very poor appetite no labored respirations on low-flow nasal cannula oxygen breath sounds are diminished today is the 2nd day of hospitalization Review of systems: Patient is not reporting any chest pain nausea or vomiting Physical exam: Very lethargic but arousable and does respond to questions bradykinetic and Nadeem phrenic HEENT unremarkable Heart sounds distant no murmurs Lung sounds distant Abdomen nontender bowel sounds present Extremities no edema cyanosis For objective laboratory and imaging please see the bottom of the note: Assessment and plan: 1. Community-acquired pneumonia, COVID positive, can not rule out secondary bacterial pneumonia. Minimal oxygen requirement no indication for remdesivir or Decadron at this time Repeat chest x-ray today 2. Sepsis due to 1. With leukocytosis, tachycardia, and hypoxia. 3. Acute hypoxemic respiratory failure due to the above. 4. Diabetes mellitus, type 2. 5. Cerebrovascular disease with right hemiparesis. 6. Peripheral artery disease, status post right AKA. 7. Hypertension. 8. Hyperlipidemia. 9. Hypothyroidism. Plan: -Admit as inpatient -ceftriaxone and azithromycin - supplemental oxygen - routine insulin with sliding scale coverage - check TSH and hemoglobin A1c DVT prophylaxis: Lovenox Code status: Full code. His mother is his surrogate decision maker. 35 minutes were involved in the management of this patient including [id number] interview physical examination review of records objective laboratory and imaging findings and direct visualization of images Exam Vital Signs (past 8 hours): - 12/04/24 12:00 12/04/24 15:14 Temperature 98.4 F Pulse Rate 100 H Respiratory Rate 18 Blood Pressure 166/64 H Pulse Oximetry 96 96 Oxygen Flow Rate 3 2 Oxygen Delivery Method Nasal Cannula Oxygen Flow Rate 2 Objective Labs 12/04/24 05:00 12/04/24 05:00 Labs: Laboratory Results - last 24 hr 12/03/24 12/03/24 12/03/24 16:49 17:20 17:48 WBC RBC Hgb Hct MCV MCH MCHC RDW Plt Count Neut % (Auto) Lymph % (Auto) [place] % (Auto) Eos % (Auto) Baso % (Auto) Lymph # (Auto) [place] # (Auto) Baso # (Auto) Total Counted Seg Neutrophils % Band Neutrophils % Lymphocytes % (Manual) Monocytes % (Manual) Neutrophils # (Manual) RBC Morphology Sodium Potassium Chloride Carbon Dioxide BUN Creatinine Estimated GFR BUN/Creatinine Ratio Glucose POC Whole Bld Glucose > 500 H* > 500 H* Hemoglobin A1c Calcium Total Bilirubin AST ALT Alkaline Phosphatase Total Protein Albumin Globulin Albumin/Globulin Ratio TSH A.calcoaceticus-baumannii cmplx PCR Chlamy pneumoniae PCR Not detected Adenovirus (PCR) Not detected Bacteroides fragilis B. pertussis DNA (PCR) Not detected B.parapertussis DNA PCR Not detected Kanwal albicans (PCR) Kanwal auris (PCR) C. glabrata (PCR) C. krusei (PCR) C. parapsilosis (PCR) C. tropicalis (PCR) Coronavirus OC43 (PCR) Not detected Coronavirus HKU1 (PCR) Not detected Coronavirus 229E (PCR) Not detected SARS-CoV-2 (PCR) Detected H Coronavirus NL63 (PCR) Not detected C. neoform/gattii (PCR) Enterobacterales (PCR) E. cloacae complex PCR Enterococc faecalis PCR Enterococc faecium PCR E. coli (PCR) H. influenzae (PCR) Human Metapneumovir PCR Not detected Influenza Type A (PCR) Not detected Influenza Type B (PCR) Not detected Klebsiella aerogenes (PCR) Klebsiella oxytoca PCR Klebsiella pneumoniae List. monocytogenes PCR M. pneumoniae (PCR) Not detected N. meningitidis (PCR) Parainfluenza 1 (PCR) Not detected Parainfluenza 2 (PCR) Not detected Parainfluenza 3 (PCR) Not detected Parainfluenza 4 (PCR) Not detected Proteus species (PCR) RSV (PCR) Not detected Entero/Rhino (PCR) Not detected Salmonella spp. (PCR) Serratia marcescens PCR Staphylococcus sp PCR Staph aureus (PCR) mecA/C & MREJ Resist Gene mecA/C-Methicil Resis Gene mcr-1 Colistin Res Gene PCR Staph epidermidis (PCR) Staph lugdunensis PCR S. maltophilia (PCR) Streptococcus sp PCR Group A Strep (PCR) Strep agalactiae (PCR) Strep pneumoniae (PCR) P. aeruginosa (PCR) Bebo/B-Vanco Res Genes blaIMP Car res Gene PCR KPC-Carbap Res Gene PCR blaNDM Car Res Gene PCR OXA-48 Carbapenem Resis Gene (PCR) blaVIM Car Res Gene PCR CTX-M Gene Resistance (PCR) 12/03/24 12/03/24 12/03/24 17:53 18:54 18:54 WBC RBC Hgb Hct MCV MCH MCHC RDW Plt Count Neut % (Auto) Lymph % (Auto) [place] % (Auto) Eos % (Auto) Baso % (Auto) Lymph # (Auto) [place] # (Auto) Baso # (Auto) Total Counted Seg Neutrophils % Band Neutrophils % Lymphocytes % (Manual) Monocytes % (Manual) Neutrophils # (Manual) RBC Morphology Sodium 142 Potassium 3.1 L Chloride 103 Carbon Dioxide 26 BUN 38 H Creatinine 1.19 Estimated GFR > 60 BUN/Creatinine Ratio 31.9 H Glucose 624 H* D 603 H* POC Whole Bld Glucose > 500 H* Hemoglobin A1c Calcium 8.6 Total Bilirubin 0.6 AST 28 ALT 26 Alkaline Phosphatase 155 H Total Protein 7.2 Albumin 3.7 Globulin 3.5 Albumin/Globulin Ratio 1.1 TSH A.calcoaceticus-baumannii cmplx PCR Chlamy pneumoniae PCR Adenovirus (PCR) Bacteroides fragilis B. pertussis DNA (PCR) B.parapertussis DNA PCR Kanwal albicans (PCR) Kanwal auris (PCR) C. glabrata (PCR) C. krusei (PCR) C. parapsilosis (PCR) C. tropicalis (PCR) Coronavirus OC43 (PCR) Coronavirus HKU1 (PCR) Coronavirus 229E (PCR) SARS-CoV-2 (PCR) Coronavirus NL63 (PCR) C. neoform/gattii (PCR) Enterobacterales (PCR) E. cloacae complex PCR Enterococc faecalis PCR Enterococc faecium PCR E. coli (PCR) H. influenzae (PCR) Human Metapneumovir PCR Influenza Type A (PCR) Influenza Type B (PCR) Klebsiella aerogenes (PCR) Klebsiella oxytoca PCR Klebsiella pneumoniae List. monocytogenes PCR M. pneumoniae (PCR) N. meningitidis (PCR) Parainfluenza 1 (PCR) Parainfluenza 2 (PCR) Parainfluenza 3 (PCR) Parainfluenza 4 (PCR) Proteus species (PCR) RSV (PCR) Entero/Rhino (PCR) Salmonella spp. (PCR) Serratia marcescens PCR Staphylococcus sp PCR Staph aureus (PCR) mecA/C & MREJ Resist Gene mecA/C-Methicil Resis Gene mcr-1 Colistin Res Gene PCR Staph epidermidis (PCR) Staph lugdunensis PCR S. maltophilia (PCR) Streptococcus sp PCR Group A Strep (PCR) Strep agalactiae (PCR) Strep pneumoniae (PCR) P. aeruginosa (PCR) Bebo/B-Vanco Res Genes blaIMP Car res Gene PCR KPC-Carbap Res Gene PCR blaNDM Car Res Gene PCR OXA-48 Carbapenem Resis Gene (PCR) blaVIM Car Res Gene PCR CTX-M Gene Resistance (PCR) 12/03/24 12/03/24 12/04/24 21:01 21:25 00:18 WBC RBC Hgb Hct MCV MCH MCHC RDW Plt Count Neut % (Auto) Lymph % (Auto) [place] % (Auto) Eos % (Auto) Baso % (Auto) Lymph # (Auto) [place] # (Auto) Baso # (Auto) Total Counted Seg Neutrophils % Band Neutrophils % Lymphocytes % (Manual) Monocytes % (Manual) Neutrophils # (Manual) RBC Morphology Sodium Potassium Chloride Carbon Dioxide BUN Creatinine Estimated GFR BUN/Creatinine Ratio Glucose 485 H* POC Whole Bld Glucose > 500 H* 445 H Hemoglobin A1c Calcium Total Bilirubin AST ALT Alkaline Phosphatase Total Protein Albumin Globulin Albumin/Globulin Ratio TSH A.calcoaceticus-baumannii cmplx PCR Chlamy pneumoniae PCR Adenovirus (PCR) Bacteroides fragilis B. pertussis DNA (PCR) B.parapertussis DNA PCR Kanwal albicans (PCR) Kanwal auris (PCR) C. glabrata (PCR) C. krusei (PCR) C. parapsilosis (PCR) C. tropicalis (PCR) Coronavirus OC43 (PCR) Coronavirus HKU1 (PCR) Coronavirus 229E (PCR) SARS-CoV-2 (PCR) Coronavirus NL63 (PCR) C. neoform/gattii (PCR) Enterobacterales (PCR) E. cloacae complex PCR Enterococc faecalis PCR Enterococc faecium PCR E. coli (PCR) H. influenzae (PCR) Human Metapneumovir PCR Influenza Type A (PCR) Influenza Type B (PCR) Klebsiella aerogenes (PCR) Klebsiella oxytoca PCR Klebsiella pneumoniae List. monocytogenes PCR M. pneumoniae (PCR) N. meningitidis (PCR) Parainfluenza 1 (PCR) Parainfluenza 2 (PCR) Parainfluenza 3 (PCR) Parainfluenza 4 (PCR) Proteus species (PCR) RSV (PCR) Entero/Rhino (PCR) Salmonella spp. (PCR) Serratia marcescens PCR Staphylococcus sp PCR Staph aureus (PCR) mecA/C & MREJ Resist Gene mecA/C-Methicil Resis Gene mcr-1 Colistin Res Gene PCR Staph epidermidis (PCR) Staph lugdunensis PCR S. maltophilia (PCR) Streptococcus sp PCR Group A Strep (PCR) Strep agalactiae (PCR) Strep pneumoniae (PCR) P. aeruginosa (PCR) Bebo/B-Vanco Res Genes blaIMP Car res Gene PCR KPC-Carbap Res Gene PCR blaNDM Car Res Gene PCR OXA-48 Carbapenem Resis Gene (PCR) blaVIM Car Res Gene PCR CTX-M Gene Resistance (PCR) 12/04/24 12/04/24 12/04/24 03:34 05:00 07:27 WBC 25.7 H RBC 4.12 L Hgb 11.1 L Hct 34.3 L MCV 83.3 MCH 26.9 MCHC 32.3 RDW 14.6 Plt Count 306 Neut % (Auto) Not Reportable Lymph % (Auto) Not Reportable [place] % (Auto) Not Reportable Eos % (Auto) Not Reportable Baso % (Auto) Not Reportable Lymph # (Auto) Not Reportable [place] # (Auto) Not Reportable Baso # (Auto) Not Reportable Total Counted 100 Seg Neutrophils % 88.0 H Band Neutrophils % 4.0 Lymphocytes % (Manual) 4.0 L Monocytes % (Manual) 4.0 Neutrophils # (Manual) 56431 H RBC Morphology Normal morphology Sodium 145 Potassium 3.4 Chloride 108 H Carbon Dioxide 31 BUN 40 H Creatinine 1.13 Estimated GFR > 60 BUN/Creatinine Ratio 35.4 H Glucose 253 H D POC Whole Bld Glucose 225 H D Hemoglobin A1c 7.6 H Calcium 8.6 Total Bilirubin AST ALT Alkaline Phosphatase Total Protein Albumin Globulin Albumin/Globulin Ratio TSH 1.39 A.calcoaceticus-baumannii cmplx PCR Not detected Chlamy pneumoniae PCR Adenovirus (PCR) Bacteroides fragilis Not detected B. pertussis DNA (PCR) B.parapertussis DNA PCR Kanwal albicans (PCR) Not detected Kanwal auris (PCR) Not detected C. glabrata (PCR) Not detected C. krusei (PCR) Not detected C. parapsilosis (PCR) Not detected C. tropicalis (PCR) Not detected Coronavirus OC43 (PCR) Coronavirus HKU1 (PCR) Coronavirus 229E (PCR) SARS-CoV-2 (PCR) Coronavirus NL63 (PCR) C. neoform/gattii (PCR) Not detected Enterobacterales (PCR) Not detected E. cloacae complex PCR Not detected Enterococc faecalis PCR Not detected Enterococc faecium PCR Not detected E. coli (PCR) Not detected H. influenzae (PCR) Not detected Human Metapneumovir PCR Influenza Type A (PCR) Influenza Type B (PCR) Klebsiella aerogenes (PCR) Not detected Klebsiella oxytoca PCR Not detected Klebsiella pneumoniae Not detected List. monocytogenes PCR Not detected M. pneumoniae (PCR) N. meningitidis (PCR) Not detected Parainfluenza 1 (PCR) Parainfluenza 2 (PCR) Parainfluenza 3 (PCR) Parainfluenza 4 (PCR) Proteus species (PCR) Not detected RSV (PCR) Entero/Rhino (PCR) Salmonella spp. (PCR) Not detected Serratia marcescens PCR Not detected Staphylococcus sp PCR Detected Staph aureus (PCR) Not detected mecA/C & MREJ Resist Gene Not applicable mecA/C-Methicil Resis Gene Not applicable mcr-1 Colistin Res Gene PCR Not applicable Staph epidermidis (PCR) Not detected Staph lugdunensis PCR Not detected S. maltophilia (PCR) Not detected Streptococcus sp PCR Not detected Group A Strep (PCR) Not detected Strep agalactiae (PCR) Not detected Strep pneumoniae (PCR) Not detected P. aeruginosa (PCR) Not detected Bebo/B-Vanco Res Genes Not applicable blaIMP Car res Gene PCR Not applicable KPC-Carbap Res Gene PCR Not applicable blaNDM Car Res Gene PCR Not applicable OXA-48 Carbapenem Resis Gene (PCR) Not applicable blaVIM Car Res Gene PCR Not applicable CTX-M Gene Resistance (PCR) Not applicable PFSH Medical History C3 spinal cord injury C4 spinal cord injury CVA (cerebral vascular accident) Diabetes Gastroesophageal reflux disease Hyperlipidemia Hypertension Surgical History History of carotid endarterectomy History of coronary artery stent placement Family History Mother Cancer Father Lung disease Hyperlipidemia Brother Lupus Social History household members: none alcohol intake: former substance use type: does not use additional social history: He currently resides in He currently resides in [facility]. Assessment & Plan Time-Based Coding :: [TOTAL MINUTES] spent with patient and on the chart (including review of chart, obtaining history, exam, reviewing outside data, placing orders, documenting exam and treatment plan, and counseling patient) on [DATE]. Quality VTE Deep Vein Thrombosis/Pulmonary Embolism Present on Admission: No
--- NOTE | 2024-12-04 16:17 | DI.RAD.S_ITS ---
PROCEDURE: XR CHEST 1V INDICATIONS: COVID pneumonia TECHNIQUE: One view of the chest was acquired. COMPARISON: [facility], CR, XR CHEST 1V, 12/03/2024, 10:09. [facility], CR, XR CHEST 1V, 06/22/2023, 22:00. FINDINGS: Surgical changes and devices: None. Lungs and pleura: More prominent confluent left lower lobe consolidation. More prominent bilateral peribronchovascular densities. Possible small left pleural effusion. Mediastinum: Mediastinal contours appear normal. Heart size is normal. Bones and chest wall: No suspicious bony lesions. Overlying soft tissues appear unremarkable. IMPRESSION: 1. More prominent confluent left lower lobe consolidation, may represent atelectasis or pneumonia. 2. There also more prominent peribronchovascular densities, may be due to atypical pneumonia or congestive changes. Possible small left pleural effusion. Dictated by: Avtar Olvera M.D. on 12/04/2024 at 17:21 Approved by: Avtar Olvera M.D. on 12/04/2024 at 17:23
[2024-12-04] MEDS: INSULIN GLARGINE 100 UNIT/ML 3ML PEN 10 UNIT SUBCUT (21:19)
[2024-12-04] MEDS: KCL 20 MEQ IN NS 1,000 ML 75 MEQ IV (21:24)
[2024-12-05] VITALS (12 sets, daily range): BP systolic 150–190; BP diastolic 72–90; PULSE 88–112; RESP 17–22; TEMP 36–36.9; O2SAT 93–100
[2024-12-05] MEDS: METOPROLOL TARTRATE 5 MG/5 ML INJ IV (00:27)
[2024-12-05 01:08] LABS: Add Manual Diff / Slide Review NO; Hematocrit 31.5 % (41-53); Hemoglobin 10.5 g/dL (13.5-17.5); Lymphocytes Absolute Auto 800 /uL (1100-4500); Mean Corpuscular HGB Conc 33.4 % (30-36); Mean Corpuscular Hemoglobin 27.7 PG (26-34); Mean Corpuscular Volume 83.0 fL (80-100); Platelet Count 302 X10^3/uL (150-400)
[2024-12-05 01:16] LABS: Blood Urea Nitrogen 28 mg/dL (9-20); Calcium 8.6 mg/dL (8.4-10.2); Carbon Dioxide 30 mmol/L (22-32); Chloride 116 mmol/L (98-107); Estimated Glomerular Filt Rate > 60 mL/min (>60); Glucose 216 mg/dL (70-99); HEMOLYSIS < 15 (0-50); Magnesium 1.9 mg/dL (1.6-2.3); Potassium 3.6 mmol/L (3.4-5.1); Sodium 150 mmol/L (137-145)
[2024-12-05 01:44] LABS: Troponin I 0.240 ng/mL (0.01-0.034)
[2024-12-05] MEDS: SODIUM CHLORIDE 0.45% 1,000 ML 75 ML IV ×2 (02:30→15:55)
[2024-12-05] MEDS: LEVOTHYROXINE 50 MCG TABLET PO (04:54)
[2024-12-05] MEDS: METOPROLOL IR 25 MG TABLET PO ×2 (04:54→21:31)
--- NOTE | 2024-12-05 06:47 | PC.NURSE ---
Addendum entered by Miya Arambula R.N. 12/05/24 06:59: medication list was fax from pt's facility this am. pt still needs his medication reconciliation. 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 Contreras notified, pt placed on tele, pt had 6 beats fo vtach, labs done earlier per Dr. Contreras, including a cbc, bmp, magnesium and troponin. Troponin was 0.240 and NA 150, pt ivf were change to 1/2 NS at 75, pt did get a dose of IV lopressor and now lopressor 25 mg po bid. Last night pt didn't take any of his po medications due to being lethargic, tonight was my 2nd night taking care of this pt and I noticed that he has periods were he is alert and awake and at times he appears lethargic. Pt also continues to choke/cough with any water. Pt had a swallowing evaluation done yesterday that says that is of for him to take thin liquids. Pt could benefit from 1:1 feeding.
[2024-12-05 08:26] LABS: Sodium 146 mmol/L (137-145)
[2024-12-05] MEDS: ASPIRIN EC 81 MG TABLET PO (09:00)
[2024-12-05] MEDS: OXYCODONE ER 20 MG TAB PO ×2 (09:00→21:31)
[2024-12-05] MEDS: SERTRALINE 50 MG TABLET PO (09:00)
[2024-12-05] MEDS: INSULIN LISPRO 100 UNIT/ML 3ML VIAL SUBCUT ×5 (09:01→17:00)
[2024-12-05] MEDS: ENOXAPARIN 40 MG/0.4 ML SYRINGE SUBCUT (09:04)
[2024-12-05 09:30] LABS: Troponin I 0.231 ng/mL (0.01-0.034)
--- NOTE | 2024-12-05 12:07 | ST.IPDYTX ---
Visit Care Team Role Provider Type BOO Harden Family Provider Non-Staff Primary Care Provider Specialty: Medical Address: [address] [place] [address], [facility] Email: Harjinder Mitchell MD Emergency Provider Physician Referring Provider Specialty: Emergency Medicine Address: [address] [place] [address], [facility] Fax: Email: [email or web address] MD Admit Provider Physician Attending Provider Specialty: Internal Medicine Address: [address] [place] [address], [facility] Email: [email or web address] BIOPHYSICS SCIENTIST Dysphagia Treatment BIOPHYSICS SCIENTIST Dysphagia Treatment Start: 12/05/24 11:58 Freq: Status: Active Protocol: Document 12/05/24 11:59 MA (Rec: 12/05/24 12:06 MA Desktop) Dysphagia Treatment Session Time Visit Start Time 11:45 Visit Stop Time 12:00 Total Visit Minutes 15 Visit Information Visit Number 2 Setting Assessment Location Acute Care Patient Information Subjective Nursing reports Pt with continued poor intake. She Observations states he took his pills in applesauce without difficulties and drank milk independently. Pt laying in bed, awake and alert upon ST entering room. Pt compliant with PO trials. ST positioned Pt upright in bed utilizing bed controls. Pt oriented x3, however some confusion with lethargy impacting communication and answering questions. Treatment Liquids Trialed Thin (IDDSI 0) Solids Trialed Purred (IDDSI 4),Regular (IDDSI 7) Administration Type Dependent Feeding Pharyngeal Sitting Upright (90 deg),Small Bites and Sips,Effortful Strategies Swallow Treatment Activities Assessment of swallow function with therapeutic PO trials of regular solids, pureed solids and thin water via cup/straw in order to determine safest and most efficient least restrictive diet The IDDSI Framework Protocol: IDDSI.1 Assessment Patient Response to Good Treatment Assessment of Pt compliant with consuming 1 bite of a nicolás cracker, Improvement a few bites of applesauce and about 2 oz of thin water via cup/straw. He required 100% feeding assistance. For water via straw, Pt exhibited poor suction and immediate cough reflex x1. For thin water via cup, Pt exhibited left sided spillage, suspected loss of bolus resulting in premature spillage, no overt s/s of aspiration such as coughing or choking. Pt with increased fatigue as session progressed. For nicolás arzate, he exhibited prolonged mastication d/t lack of dentition and poor bolus formation, he benefited from applesauce to help clear residue. For applesauce, Pt exhibited good oral acceptance and containment, adequate bolus control and formation, no overt s/s of aspiration. ST recommends Pt consume IDDSI 5 (minced and moist) and thin liquids at this time with the below mentioned safe swallowing strategies. ST communicated recommendations with nursing and nursing aid. Recommendations Recommendations Downgrade Diet Order Liquids Order Thin (IDDSI 0) Diet Order Minced & Moist (IDDSI 5) Medication As Tolerated Recommendations Additional Dietary 1:1 Supervision Needs Aspiration Precautions Recommended Upright at 90 Degrees,Alternate Liquids/Solids,Small Precautions Bites/Sips Treatment Plan Appropriate for Yes Continued Therapy Therapy Dysphagia management, education Recommendations
[2024-12-05] MEDS: AZITHROMYCIN 500 MG in DEXTROSE 5% IN WATER 250 ML 250 MG IV (15:55)
--- NOTE | 2024-12-05 19:02 | PM.PN.1 ---
Subjective Subjective Date Patient Seen: 12/05/24 Interval history: Chief complaint: Shortness for breath secondary to COVID pneumonia with acute hypoxic respiratory failure History of present illness: 12/03: 69-year-old man with a history of stroke with chronic right-sided hemiparesis, PAD s/p right AKA, diabetes on insulin therapy, hypertension, hyperlipidemia and hypothyroidism living at [facility] under the care of Eli Montanez presented to the emergency department by EMS with confusion and shortness of breath. He was found to test positive for COVID-19 at his facility. Chest x-ray shows lower lobe infiltrates and mild hypoxia with oxygen saturation 90%. He is admitted for further management and evaluation. Hospital course: 12/04: Very lethargic and fatigued today very poor appetite no labored respirations on low-flow nasal cannula oxygen breath sounds are diminished today is the 2nd day of hospitalization 12/05: Still very lethargic very fatigued appetite is improved however down to 1 L nasal cannula Review of systems: Patient is not reporting any chest pain nausea or vomiting Physical exam: Very lethargic but arousable and does respond to questions bradykinetic and Nadeem phrenic HEENT unremarkable Heart sounds distant no murmurs Lung sounds distant Abdomen nontender bowel sounds present Extremities no edema cyanosis For objective laboratory and imaging please see the bottom of the note: Assessment and plan: 1. Community-acquired pneumonia, COVID positive, can not rule out secondary bacterial pneumonia. Minimal oxygen requirement no indication for remdesivir or Decadron at this time Repeat chest x-ray today 2. Sepsis due to 1. With leukocytosis, tachycardia, and hypoxia. 3. Acute hypoxemic respiratory failure due to the above. 4. Diabetes mellitus, type 2. 5. Cerebrovascular disease with right hemiparesis. 6. Peripheral artery disease, status post right AKA. 7. Hypertension. 8. Hyperlipidemia. 9. Hypothyroidism. DVT prophylaxis: Lovenox Code status: Full code. His mother is his surrogate decision maker. 35 minutes were involved in the management of this patient including dtic-rb-bqft interview physical examination review of records objective laboratory and imaging findings and direct visualization of images Exam Vital Signs (past 8 hours): - 12/05/24 11:59 12/05/24 15:00 12/05/24 16:52 Temperature 98.1 F 97.8 F Pulse Rate 94 H 98 H Respiratory Rate 17 22 Blood Pressure 171/72 H 150/72 H Pulse Oximetry 96 93 98 Oxygen Delivery Method Nasal Cannula Oxygen Flow Rate 3 2 Oxygen Delivery Method Nasal Cannula Oxygen Flow Rate 2 Objective Labs 12/05/24 00:50 12/05/24 07:54 Labs: Laboratory Results - last 24 hr 12/04/24 12/05/24 12/05/24 20:20 00:50 07:50 WBC 22.4 H RBC 3.79 L Hgb 10.5 L Hct 31.5 L MCV 83.0 MCH 27.7 MCHC 33.4 RDW 14.7 Plt Count 302 Neut % (Auto) 90.3 H Lymph % (Auto) 3.8 L Williams % (Auto) 5.7 Eos % (Auto) 0.0 L Baso % (Auto) 0.2 Neut # (Auto) 51640 H Lymph # (Auto) 800 L Williams # (Auto) 1300 H Eos # (Auto) 0 Baso # (Auto) 0 Sodium 150 H Potassium 3.6 Chloride 116 H Carbon Dioxide 30 BUN 28 H Creatinine 0.87 Estimated GFR > 60 BUN/Creatinine Ratio 32.2 H Glucose 216 H POC Whole Bld Glucose 192 H 284 H Calcium 8.6 Magnesium 1.9 Troponin I 0.240 H* 12/05/24 12/05/24 12/05/24 07:54 11:54 16:44 WBC RBC Hgb Hct MCV MCH MCHC RDW Plt Count Neut % (Auto) Lymph % (Auto) Williams % (Auto) Eos % (Auto) Baso % (Auto) Neut # (Auto) Lymph # (Auto) Williams # (Auto) Eos # (Auto) Baso # (Auto) Sodium 146 H Potassium Chloride Carbon Dioxide BUN Creatinine Estimated GFR BUN/Creatinine Ratio Glucose POC Whole Bld Glucose 254 H 164 H Calcium Magnesium Troponin I 0.231 H* [facility] Medical History C3 spinal cord injury C4 spinal cord injury CVA (cerebral vascular accident) Diabetes Gastroesophageal reflux disease Hyperlipidemia Hypertension Surgical History History of carotid endarterectomy History of coronary artery stent placement Family History Mother Cancer Father Lung disease Hyperlipidemia Brother Lupus Social History household members: none alcohol intake: former substance use type: does not use additional social history: He currently resides in He currently resides in [facility]. Assessment & Plan Time-Based Coding :: [TOTAL MINUTES] spent with patient and on the chart (including review of chart, obtaining history, exam, reviewing outside data, placing orders, documenting exam and treatment plan, and counseling patient) on [DATE]. Quality VTE Deep Vein Thrombosis/Pulmonary Embolism Present on Admission: No
[2024-12-05] MEDS: TAMSULOSIN 0.4 MG CAPSULE PO (21:30)
[2024-12-05] MEDS: MIRTAZAPINE 15 MG TABLET PO (21:31)
[2024-12-05] MEDS: ATORVASTATIN 20 MG TABLET 80 MG PO (21:31)
[2024-12-05] MEDS: DULOXETINE 30 MG CAPSULE 60 MG PO (21:31)
[2024-12-05] MEDS: INSULIN GLARGINE 100 UNIT/ML 3ML PEN 12 UNIT SUBCUT (21:37)
[2024-12-06] VITALS: BP 159/80; PULSE 94; RESP 18; TEMP 36.3; O2SAT 97
[2024-12-06 04:00] VITALS: PULSE 98; O2SAT 95
[2024-12-06] MEDS: LEVOTHYROXINE 50 MCG TABLET PO (05:28)
[2024-12-06] MEDS: SODIUM CHLORIDE 0.45% 1,000 ML 75 ML IV (05:32)
[2024-12-06 08:00] VITALS: BP 163/74; PULSE 105; RESP 20; TEMP 36.4; O2SAT 100
[2024-12-06 09:21] VITALS: O2SAT 95
[2024-12-06] MEDS: ENOXAPARIN 40 MG/0.4 ML SYRINGE SUBCUT (09:58)
[2024-12-06] MEDS: ASPIRIN EC 81 MG TABLET PO (09:58)
[2024-12-06] MEDS: SERTRALINE 50 MG TABLET PO (09:58)
[2024-12-06] MEDS: METOPROLOL IR 25 MG TABLET PO (09:58)
[2024-12-06] MEDS: OXYCODONE ER 20 MG TAB PO (09:58)
--- NOTE | 2024-12-06 10:26 | P.DS_ITS ---
History of Present Illness History of Present Illness Date Patient Seen: 12/06/24 Chief complaint: Covid/short of breath Narrative: Chief complaint: Shortness for breath secondary to COVID pneumonia with acute hypoxic respiratory failure History of present illness: 12/03: 69-year-old man with a history of stroke with chronic right-sided hemiparesis, PAD s/p right AKA, diabetes on insulin therapy, hypertension, hyperlipidemia and hypothyroidism living at [facility] under the care of Eli Montanez presented to the emergency department by EMS with confusion and shortness of breath. He was found to test positive for COVID-19 at his facility. Chest x-ray shows lower lobe infiltrates and mild hypoxia with oxygen saturation 90%. He is admitted for further management and evaluation. Hospital course: 12/04: Very lethargic and fatigued today very poor appetite no labored respirations on low-flow nasal cannula oxygen breath sounds are diminished today is the 2nd day of hospitalization 12/05: Still very lethargic very fatigued appetite is improved however down to 1 L nasal cannula Review of systems: Patient is not reporting any chest pain nausea or vomiting Physical exam: Vital signs stable 96% saturation on room air Awake conversant HEENT unremarkable Heart sounds distant no murmurs Lung sounds distant Abdomen nontender bowel sounds present Extremities no edema cyanosis Assessment and plan: Community-acquired pneumonia, COVID positive, can not rule out secondary bacterial pneumonia. * No further hypoxia or shortness for breath * Deescalate to oral cefdinir * No indication for remdesivir or Decadron * Transfer back to [facility] * Resume basal bolus insulin for diabetes * Appears to be at baseline mentation DVT prophylaxis: Lovenox Code status: Full code. His mother is his surrogate decision maker. 35 minutes were involved in the management of this patient including xhuc-fz-hjbz interview physical examination review of records objective laboratory and imaging findings and direct visualization of images Discharge Providers Provider Date of admission: 12/03/24 12:35 Primary care physician: BOO Harden Consults: 12/04/24 04:44 Consult to Speech Therapy Evaluate & Treat Comment: pt has been having difficulty swallowing due to cv Physician Instructions: Evaluate and treat Discharge provider: Harish Kilgore MD Exam Vital Signs (past 8 hours): - 12/06/24 04:00 12/06/24 08:00 12/06/24 09:21 Temperature 97.5 F L Pulse Rate 98 H 105 H Respiratory Rate 20 Blood Pressure 163/74 H Pulse Oximetry 95 100 95 Oxygen Delivery Method Nasal Cannula Oxygen Flow Rate 2 2 2 Oxygen Delivery Method Nasal Cannula Oxygen Flow Rate 2 Objective Labs 12/05/24 00:50 12/05/24 07:54 Labs: Laboratory Results - last 24 hr 12/05/24 12/05/24 12/05/24 11:54 16:44 21:21 POC Whole Bld Glucose 254 H 164 H 125 H 12/06/24 08:30 POC Whole Bld Glucose 331 H D PFSH Medical History C3 spinal cord injury C4 spinal cord injury CVA (cerebral vascular accident) Diabetes Gastroesophageal reflux disease Hyperlipidemia Hypertension Surgical History History of carotid endarterectomy History of coronary artery stent placement Family History Mother Cancer Father Lung disease Hyperlipidemia Brother Lupus Social History household members: none alcohol intake: former substance use type: does not use additional social history: He currently resides in He currently resides in [facility]. Discharge Plan Discharge Plan Patient Disposition: Assisted Living Discharge orders & Medications Discharge Orders: Discharge (Order); Ordered 12/06/24 Ordered By: Harish Kilgore Prescriptions: New metoprolol tartrate 25 mg Tablet 25 mg PO BID Qty: 60 0RF cefdinir 300 mg capsule 300 mg PO BID Qty: 10 0RF Continued atorvastatin 80 MG tablet 80 mg PO BEDTIME Qty: 0 levothyroxine 50 MCG tablet 50 mcg PO QPM Qty: 0 acetaminophen 325 MG tablet 1,000 mg PO TID PRN (Reason: pain/fever) Qty: 0 omeprazole 20 MG capsule,delayed release(DR/EC) 40 mg PO DAILY Qty: 0 tamsulosin 0.4 mg capsule 0.4 mg PO BEDTIME sertraline 50 mg tablet 50 mg PO DAILY Xtampza ER 18 mg cap,sprinkl,ER12hr(DONT CRUSH) 18 mg PO BID lubiprostone [Amitiza] 24 mcg capsule 24 mcg PO BID aspirin 81 mg tablet,delayed release (DR/EC) 81 mg PO DAILY naloxone 0.4 mg/mL solution 0.4 mg IM Q15-20M PRN (Reason: Opioid Overdose) Qty: 0 0RF bisacodyl 10 MG suppository 10 mg AK DAILY PRN (Reason: Constipation) Qty: 0 0RF oxycodone 5 mg tablet 20 mg PO Q4H PRN (Reason: pain) 7 Days Qty: 40 0RF Rx Instructions: hold if too sedated loperamide 2 mg capsule 2 mg PO PRN PRN (Reason: Diarrhea) ferrous sulfate 325 mg (65 mg iron) Tablet 325 mg PO QPM lorazepam 1 mg Tablet 1 mg PO TID PRN (Reason: Nausea And Vomiting) polyethylene glycol 3350 [Miralax] 17 gram/dose Powder 17 g PO QPM alum-mag hydroxide-simeth 400-400-40 mg/5 mL Suspension 20 ml PO Q6H mirtazapine 15 mg Tablet 15 mg PO BEDTIME fluticasone propionate 50 mcg/actuation Brohard,Suspension 1 spray INTRANASAL BID cholecalciferol (vitamin D3) 1,000 unit Capsule 2,000 unit PO DAILY hydroxyzine pamoate 25 mg Capsule 50 mg PO Q6H PRN (Reason: pain/spasms) ondansetron 4 mg Tablet,Disintegrating 4 - 8 mg PO Q4H PRN (Reason: Nausea) Patient Comments: 1 - 2 prn nausea Glucagon Emergency Kit (human) 1 mg Recon Soln 1 mg IM PRN MDD ` PRN (Reason: blood glucose <60) duloxetine 60 mg capsule,delayed release(DR/EC) 60 mg PO BEDTIME nystatin 100,000 unit/gram Cream 1 applic TOPICAL BID PRN (Reason: yeast) lorazepam 1 mg Tablet 1 mg PO BEDTIME PRN (Reason: Insomnia) docusate sodium 100 mg Tablet 200 mg PO TID bisacodyl 5 mg Tablet 5 - 10 mg PO DAILY PRN (Reason: Constipation) propylene glycol-glycerin 1-0.3 % Drops 1 drp OPHTHALMIC (EYE) Q1H PRN (Reason: Dry Eyes) insulin glargine [Lantus Solostar U-100 Insulin] 100 unit/mL (3 mL) Insulin Pen 10 unit SUBCUT BEDTIME sennosides [senna] 8.6 mg Tablet 17.2 mg PO BID metoclopramide HCl 5 mg/5 mL Solution 10 mg PO QAC Rx Instructions: before meals for chronic nausea magnesium hydroxide [Milk of Magnesia] 400 mg/5 mL Suspension 30 ml PO DAILY PRN (Reason: Constipation) oxymetazoline 0.05 % Brohard,Non-Aerosol 2 spray INTRANASAL Q12H PRN (Reason: nosebleed) torsemide 20 mg tablet 20 mg PO BID hydroxyzine pamoate [Vistaril] 25 mg capsule 50 mg PO Q4H PRN (Reason: pain) Rx Instructions: do not exceed 4 doses per 24 hrs Ultra CoQ10 75 mg capsule 75 mg PO DAILY ascorbic acid (vitamin C) [C-1000] 1,000 mg tablet 1,000 mg PO DAILY cetirizine 10 mg capsule 10 mg PO DAILY insulin aspart U-100 [Novolog FlexPen U-100 Insulin] 100 unit/mL insulin pen See Rx Instructions .ROUTE .COMPLEX Rx Instructions: Per [place] med list, insulin instructions are per Ray who directs his own dosing of insulin based on what he is about to consume w/ meals Discontinued doxycycline monohydrate 100 mg tablet 100 mg PO BID Follow up/Referrals: Eli Montanez ARNP [Primary Care Provider, Medical] Visit Report/Discharge Packet Stand Alone Forms: Patient Portal/API, Stroke Signs & Symptoms Discharge Data Primary Care Provider: Eli Montanez Quality VTE Deep Vein Thrombosis/Pulmonary Embolism Present on Admission: No
--- NOTE | 2024-12-06 10:35 | DI.RAD.S_ITS ---
PROCEDURE: XR CHEST 1V INDICATIONS: pna TECHNIQUE: One view of the chest was acquired. COMPARISON: [facility], CR, XR CHEST 1V, 12/04/2024, 16:26. [facility], CR, XR CHEST 1V, 12/03/2024, 10:09. FINDINGS: Surgical changes and devices: None. Lungs and pleura: Right basilar consolidation. Mediastinum: Mediastinal contours appear normal. Heart size is normal. Bones and chest wall: No suspicious bony lesions. Overlying soft tissues appear unremarkable. IMPRESSION: Right basilar consolidation concerning for pneumonia. Differential includes aspiration. Recommend follow-up in 1-2 months with chest x-ray to ensure resolution. Dictated by: Augustus Unger M.D. on 12/06/2024 at 11:20 Approved by: Augustus Unger M.D. on 12/06/2024 at 11:21
[2024-12-06 10:56] LABS: Add Manual Diff / Slide Review NO; Hematocrit 30.7 % (41-53); Hemoglobin 10.0 g/dL (13.5-17.5); Lymphocytes Absolute Auto 800 /uL (1100-4500); Mean Corpuscular HGB Conc 32.6 % (30-36); Mean Corpuscular Hemoglobin 27.3 PG (26-34); Mean Corpuscular Volume 83.7 fL (80-100); Platelet Count 308 X10^3/uL (150-400)
[2024-12-06 11:08] LABS: Alanine Aminotransferase 23 IU/L (<50); Albumin 3.3 g/dL (3.5-5.0); Albumin Globulin Ratio 1.0 (1.0-2.8); Alkaline Phosphatase 155 U/L (38-126); Blood Urea Nitrogen 27 mg/dL (9-20); Calcium 8.1 mg/dL (8.4-10.2); Carbon Dioxide 21 mmol/L (22-32); Chloride 108 mmol/L (98-107); Estimated Glomerular Filt Rate > 60 mL/min (>60); Globulin 3.3 g/dL (1.7-4.1); Glucose 329 mg/dL (70-99); HEMOLYSIS < 15 (0-50); Potassium 3.5 mmol/L (3.4-5.1); Sodium 143 mmol/L (137-145); Total Protein 6.6 g/dL (6.3-8.2)
--- NOTE | 2024-12-06 11:11 | CM.DPC ---
DCP Cont. Reviewed EMR and team rounds for pt's status updates. Pt has been medically cleared for d/c back to [facility]. Facility will transport, time pending. No further CM d/c needs are indicated at this time.
--- NOTE | 2024-12-06 12:17 | PC.NURSE ---
Report given to admitting nurse Mar at [facility]. Reviewed hospital course, does not need home O2, sat on 2L was 99-100%. On ra he was 96-97%. Lungs still some course sounds, he is a smoker per admit nurse. He has also been unhappy about his care at the hospital at times. He is unhappy with his diet and dietary modifications. Wouldn't eat bkft, only wants cheerios. Insulin was held this am. Glucose 131. Asked several times to return to facility. Questions answered. Pt d/c to [place] via their van and w/c. Brother called right when pt was being placed in the w/c. Pt made aware his brother called and to give him a call when he returns home.
--- NOTE | 2024-12-07 13:00 | PM.DS.1 ---
History of Present Illness History of Present Illness Date Patient Seen: 12/06/24 Chief complaint: Covid/short of breath Narrative: Chief complaint: Shortness for breath secondary to COVID pneumonia with acute hypoxic respiratory failure History of present illness: 12/03: 69-year-old man with a history of stroke with chronic right-sided hemiparesis, PAD s/p right AKA, diabetes on insulin therapy, hypertension, hyperlipidemia and hypothyroidism living at [facility] under the care of Eli Montanez presented to the emergency department by EMS with confusion and shortness of breath. He was found to test positive for COVID-19 at his facility. Chest x-ray shows lower lobe infiltrates and mild hypoxia with oxygen saturation 90%. He is admitted for further management and evaluation. Hospital course: 12/04: Very lethargic and fatigued today very poor appetite no labored respirations on low-flow nasal cannula oxygen breath sounds are diminished today is the 2nd day of hospitalization 12/05: Still very lethargic very fatigued appetite is improved however down to 1 L nasal cannula 12/06: Patient now alert answers questions no requirement oxygen patient discharged to [facility] Review of systems: Patient is not reporting any chest pain nausea or vomiting Physical exam: Vital signs stable 96% saturation on room air Awake conversant HEENT unremarkable Heart sounds distant no murmurs Lung sounds distant Abdomen nontender bowel sounds present Extremities no edema cyanosis Assessment and plan: Community-acquired pneumonia, COVID positive, can not rule out secondary bacterial pneumonia. No further hypoxia or shortness for breath Deescalate to oral cefdinir No indication for remdesivir or Decadron Transfer back to [facility] Resume basal bolus insulin for diabetes Appears to be at baseline mentation DVT prophylaxis: Lovenox Code status: Full code. His mother is his surrogate decision maker. 35 minutes were involved in the management of this patient including [id number] interview physical examination review of records objective laboratory and imaging findings and direct visualization of images Discharge Providers Provider Date of admission: 12/03/24 12:35 Discharge Date: 12/06/24 Primary care physician: BOO Harden Consults: 12/04/24 04:44 Consult to Speech Therapy Evaluate & Treat Comment: pt has been having difficulty swallowing due to cv Physician Instructions: Evaluate and treat Discharge provider: Harish Kilgore MD Exam Vital Signs (past 8 hours): Oxygen Delivery Method Nasal Cannula Oxygen Flow Rate 2 Objective Labs 12/06/24 10:48 12/06/24 10:48 PFSH Medical History C3 spinal cord injury C4 spinal cord injury CVA (cerebral vascular accident) Diabetes Gastroesophageal reflux disease Hyperlipidemia Hypertension Surgical History History of carotid endarterectomy History of coronary artery stent placement Family History Mother Cancer Father Lung disease Hyperlipidemia Brother Lupus Social History household members: none alcohol intake: former substance use type: does not use additional social history: He currently resides in He currently resides in [facility]. Discharge Plan Discharge Plan Patient Disposition: Assisted Living Discharge orders & Medications Discharge Orders: Discharge (Order); Ordered 12/06/24 Ordered By: Harish Kilgore Prescriptions: New metoprolol tartrate 25 mg Tablet 25 mg PO BID Qty: 60 0RF cefdinir 300 mg capsule 300 mg PO BID Qty: 10 0RF Continued atorvastatin 80 MG tablet 80 mg PO BEDTIME Qty: 0 levothyroxine 50 MCG tablet 50 mcg PO QPM Qty: 0 acetaminophen 325 MG tablet 1,000 mg PO TID PRN (Reason: pain/fever) Qty: 0 omeprazole 20 MG capsule,delayed release(DR/EC) 40 mg PO DAILY Qty: 0 tamsulosin 0.4 mg capsule 0.4 mg PO BEDTIME sertraline 50 mg tablet 50 mg PO DAILY Xtampza ER 18 mg cap,sprinkl,ER12hr(DONT CRUSH) 18 mg PO BID lubiprostone [Amitiza] 24 mcg capsule 24 mcg PO BID aspirin 81 mg tablet,delayed release (DR/EC) 81 mg PO DAILY naloxone 0.4 mg/mL solution 0.4 mg IM Q15-20M PRN (Reason: Opioid Overdose) Qty: 0 0RF bisacodyl 10 MG suppository 10 mg NH DAILY PRN (Reason: Constipation) Qty: 0 0RF oxycodone 5 mg tablet 20 mg PO Q4H PRN (Reason: pain) 7 Days Qty: 40 0RF Rx Instructions: hold if too sedated loperamide 2 mg capsule 2 mg PO PRN PRN (Reason: Diarrhea) ferrous sulfate 325 mg (65 mg iron) Tablet 325 mg PO QPM lorazepam 1 mg Tablet 1 mg PO TID PRN (Reason: Nausea And Vomiting) polyethylene glycol 3350 [Miralax] 17 gram/dose Powder 17 g PO QPM alum-mag hydroxide-simeth 400-400-40 mg/5 mL Suspension 20 ml PO Q6H mirtazapine 15 mg Tablet 15 mg PO BEDTIME fluticasone propionate 50 mcg/actuation [place],Suspension 1 spray INTRANASAL BID cholecalciferol (vitamin D3) 1,000 unit Capsule 2,000 unit PO DAILY hydroxyzine pamoate 25 mg Capsule 50 mg PO Q6H PRN (Reason: pain/spasms) ondansetron 4 mg Tablet,Disintegrating 4 - 8 mg PO Q4H PRN (Reason: Nausea) Patient Comments: 1 - 2 prn nausea Glucagon Emergency Kit (human) 1 mg Recon Soln 1 mg IM PRN MDD ` PRN (Reason: blood glucose <60) duloxetine 60 mg capsule,delayed release(DR/EC) 60 mg PO BEDTIME nystatin 100,000 unit/gram Cream 1 applic TOPICAL BID PRN (Reason: yeast) lorazepam 1 mg Tablet 1 mg PO BEDTIME PRN (Reason: Insomnia) docusate sodium 100 mg Tablet 200 mg PO TID bisacodyl 5 mg Tablet 5 - 10 mg PO DAILY PRN (Reason: Constipation) propylene glycol-glycerin 1-0.3 % Drops 1 drp OPHTHALMIC (EYE) Q1H PRN (Reason: Dry Eyes) insulin glargine [Lantus Solostar U-100 Insulin] 100 unit/mL (3 mL) Insulin Pen 10 unit SUBCUT BEDTIME sennosides [senna] 8.6 mg Tablet 17.2 mg PO BID metoclopramide HCl 5 mg/5 mL Solution 10 mg PO QAC Rx Instructions: before meals for chronic nausea magnesium hydroxide [Milk of Magnesia] 400 mg/5 mL Suspension 30 ml PO DAILY PRN (Reason: Constipation) oxymetazoline 0.05 % [place],Non-Aerosol 2 spray INTRANASAL Q12H PRN (Reason: nosebleed) torsemide 20 mg tablet 20 mg PO BID hydroxyzine pamoate [Vistaril] 25 mg capsule 50 mg PO Q4H PRN (Reason: pain) Rx Instructions: do not exceed 4 doses per 24 hrs Ultra CoQ10 75 mg capsule 75 mg PO DAILY ascorbic acid (vitamin C) [C-1000] 1,000 mg tablet 1,000 mg PO DAILY cetirizine 10 mg capsule 10 mg PO DAILY insulin aspart U-100 [Novolog FlexPen U-100 Insulin] 100 unit/mL insulin pen See Rx Instructions .ROUTE .COMPLEX Rx Instructions: Per [facility] med list, insulin instructions are per Ray who directs his own dosing of insulin based on what he is about to consume w/ meals Discontinued doxycycline monohydrate 100 mg tablet 100 mg PO BID Follow up/Referrals: Eli Montanez ARNP [Primary Care Provider, Medical] Visit Report/Discharge Packet Instructions: DI for COVID-19 (Suspected or Confirmed ), How to Care for Someone with COVID-19, COVID-19_ Can I Get It Again Stand Alone Forms: Patient Portal/API, Stroke Signs & Symptoms Discharge Data Primary Care Provider: Eli Montanez Quality VTE Deep Vein Thrombosis/Pulmonary Embolism Present on Admission: No
== END 2024-12-06 12:15 | DRG 871 ==
LOC: ED 09:58 → AC 12:36
PROVIDERS: Internal Medicine; Admitting Provider Internal Medicine; Emergency Provider Family Medicine; Family Provider Nurse Practitioner Family; PCP Nurse Practitioner Family; Referring Provider Family Medicine; Visit Provider Internal Medicine
DX: A41.9 Sepsis, unspecified organism (principal); J12.82 Pneumonia due to coronavirus disease 2019; J96.01 Acute respiratory failure with hypoxia; U07.1 COVID-19; J15.9 Unspecified bacterial pneumonia; I69.351 Hemiplegia and hemiparesis following cerebral infarction affecting right dominant side; I73.9 Peripheral vascular disease, unspecified; E11.9 Type 2 diabetes mellitus without complications; I10 Essential (primary) hypertension; R65.20 Severe sepsis without septic shock; E78.5 Hyperlipidemia, unspecified; E03.9 Hypothyroidism, unspecified; F17.210 Nicotine dependence, cigarettes, uncomplicated; K21.9 Gastro-esophageal reflux disease without esophagitis; Z79.4 Long term (current) use of insulin; Z89.611 Acquired absence of right leg above knee; Z79.890 Hormone replacement therapy
CPT/HCPCS: 36415; 71045; 80048; 80053; 82805; 82947; 82962; 83036; 83605; 83690; 83735; 84145; 84295; 84443; 84484; 85007; 85025; 85610; 85730; 87040; 87077; 87154; 87186; 87633; 92526; 92610; 93005; 94760; 96361; 96365; 99284; 99285; J0696; J1650; J1815; J7050; J7613

== ENCOUNTER → 2025-01-10 08:07 | Outpatient (ROUT) | payer MEDICARE, MEDICAID, SELFPAY ==
[2024-12-04 06:03] VITALS: BMI 24.5
[2025-01-10 08:28] LABS: Hematocrit 33.8 % (41-53); Hemoglobin 11.1 g/dL (13.5-17.5)
[2025-01-10 08:49] LABS: HEMOLYSIS < 15 (0-50); Iron 37 ug/dL (49-181)
[2025-01-10 08:52] LABS: Blood Urea Nitrogen 26 mg/dL (9-20); Calcium 8.5 mg/dL (8.4-10.2); Carbon Dioxide 30 mmol/L (22-32); Chloride 96 mmol/L (98-107); Estimated Glomerular Filt Rate > 60 mL/min (>60); Glucose 239 mg/dL (70-99); HEMOLYSIS < 15 (0-50); Magnesium 2.0 mg/dL (1.6-2.3); Potassium 4.2 mmol/L (3.4-5.1); Sodium 133 mmol/L (137-145)
[2025-01-10 09:06] LABS: Free T4, Direct Thyroxine 1.81 ng/dL (0.78-2.19)
[2025-01-10 09:11] LABS: Percent Iron Saturation 14 % (20-50); Total Iron Binding Capacity 261 ug/dL (261-462); Transferrin 199 mg/dL (206-381)
[2025-01-10 09:20] LABS: Thyroid Stimulating Hormone 5.68 uIU/mL (0.47-4.68)
[2025-01-10 09:56] LABS: Folate 3.8 ng/mL (2.76-20.0); Vitamin B12 693 pg/mL (239-931)
== END ==
PROVIDERS: Family Provider Nurse Practitioner Family; PCP Nurse Practitioner Family; Visit Provider Registered Nurse
DX: E10.9 Type 1 diabetes mellitus without complications (principal); E03.9 Hypothyroidism, unspecified; I50.9 Heart failure, unspecified; D64.9 Anemia, unspecified
CPT/HCPCS: 36415; 80048; 82607; 82746; 83540; 83550; 83735; 84439; 84443; 85014; 85018

== ENCOUNTER → 2025-01-23 13:56 | Outpatient (CLI) | payer MEDICARE, MEDICAID, SELFPAY ==
[2024-12-04 06:03] VITALS: BMI 24.5
== END ==
LOC: WC 15:24
PROVIDERS: Family Provider Nurse Practitioner Family; PCP Nurse Practitioner Family; Referring Provider Registered Nurse; Visit Provider Surgery
DX: E10.628 Type 1 diabetes mellitus with other skin complications (principal); L89.313 Pressure ulcer of right buttock, stage 3; L53.8 Other specified erythematous conditions
CPT/HCPCS: 97597; 99213

== ENCOUNTER → 2025-01-30 09:29 | Outpatient (CLI) | payer MEDICARE, MEDICAID, SELFPAY ==
[2024-12-04 06:03] VITALS: BMI 24.5
== END ==
PROVIDERS: Family Provider Nurse Practitioner Family; PCP Nurse Practitioner Family; Referring Provider Nurse Practitioner Family; Visit Provider Surgery
DX: L89.313 Pressure ulcer of right buttock, stage 3 (principal); E10.628 Type 1 diabetes mellitus with other skin complications; G81.90 Hemiplegia, unspecified affecting unspecified side; Z99.3 Dependence on wheelchair; E11.51 Type 2 diabetes mellitus with diabetic peripheral angiopathy without gangrene; E11.22 Type 2 diabetes mellitus with diabetic chronic kidney disease; I12.9 Hypertensive chronic kidney disease with stage 1 through stage 4 chronic kidney disease, or unspecified chronic kidney disease; N18.31 Chronic kidney disease, stage 3a; I25.10 Atherosclerotic heart disease of native coronary artery without angina pectoris; I42.9 Cardiomyopathy, unspecified; Z86.73 Personal history of transient ischemic attack (TIA), and cerebral infarction without residual deficits; D64.9 Anemia, unspecified; K21.9 Gastro-esophageal reflux disease without esophagitis; E78.5 Hyperlipidemia, unspecified; Z72.0 Tobacco use
CPT/HCPCS: 11042; 87070; 87075; 87077; 87147; 87186; 87205; 99213

== ENCOUNTER → 2025-02-06 16:02 | Outpatient (CLI) | payer MEDICARE, MEDICAID, SELFPAY ==
[2024-12-04 06:03] VITALS: BMI 24.5
== END ==
LOC: WC 16:03
PROVIDERS: Family Provider Nurse Practitioner Family; PCP Nurse Practitioner Family; Referring Provider Nurse Practitioner Family; Visit Provider Surgery
DX: L89.313 Pressure ulcer of right buttock, stage 3 (principal); E10.628 Type 1 diabetes mellitus with other skin complications; I25.5 Ischemic cardiomyopathy; G81.90 Hemiplegia, unspecified affecting unspecified side; Z74.09 Other reduced mobility; Z99.3 Dependence on wheelchair; Z72.0 Tobacco use; D64.9 Anemia, unspecified; E10.22 Type 1 diabetes mellitus with diabetic chronic kidney disease; N18.30 Chronic kidney disease, stage 3 unspecified; I10 Essential (primary) hypertension; Z86.73 Personal history of transient ischemic attack (TIA), and cerebral infarction without residual deficits
CPT/HCPCS: 11042

== ENCOUNTER → 2025-02-13 09:49 | Outpatient (CLI) | payer MEDICARE, MEDICAID, SELFPAY ==
[2024-12-04 06:03] VITALS: BMI 24.5
== END ==
LOC: WC 09:52
PROVIDERS: Family Provider Nurse Practitioner Family; PCP Nurse Practitioner Family; Referring Provider Registered Nurse; Visit Provider Surgery
DX: L89.313 Pressure ulcer of right buttock, stage 3 (principal); L53.9 Erythematous condition, unspecified; E10.628 Type 1 diabetes mellitus with other skin complications; D64.9 Anemia, unspecified; I25.5 Ischemic cardiomyopathy; Z99.3 Dependence on wheelchair
CPT/HCPCS: 11042

== ENCOUNTER → 2025-03-06 13:41 | Outpatient (CLI) | payer MEDICARE, MEDICAID, SELFPAY ==
[2024-12-04 06:03] VITALS: BMI 24.5
== END ==
LOC: WC 13:42
PROVIDERS: Family Provider Nurse Practitioner Family; PCP Nurse Practitioner Family; Referring Provider Nurse Practitioner Family; Visit Provider Surgery
DX: Z09 Encounter for follow-up examination after completed treatment for conditions other than malignant neoplasm (principal); Z87.2 Personal history of diseases of the skin and subcutaneous tissue; Z99.3 Dependence on wheelchair
CPT/HCPCS: 99212; 99213